=== PATIENT | male | born 1980 | race African-American/Black ===

== ENCOUNTER 2016-09-09 10:38 | Observation (INO) | payer OTHER ==
[2016-09-09] MEDS ORDERED: SODIUM CHLORIDE 0.9% 1,000 ML IV STA (11:04)
[2016-09-09] MEDS ORDERED: HYDROmorphone 1 MG/ML 1 ML SYRINGE IVP STA ×2 (11:04→12:50)
[2016-09-09] MEDS ORDERED: ONDANSETRON 4 MG/2 ML VIAL IVP STA (11:04)
--- NOTE | 2016-09-09 11:15 | ED ---
Abdominal Pain HPI - General Stated Complaint: Rt side pain Time Seen by Provider: 09/09/16 10:59 Source: patient, RN notes reviewed Mode of arrival: ambulatory Limitations: no limitations - History of Present Illness Initial Comments: 35-year-old male presents emergency Department chief complaint of right upper quadrant abdominal pain. Patient states it started a few days ago worse. Patient states never had any like this in the past. Denies any history of abdominal surgeries, kidney stones, pancreatitis. Patient did admit to alcohol use on a regular basis. Patient denies fever, chills, chest pain or shortness of breath. Patient states that nothing makes it feel better. Patient states it is worse with movement. Patient states that he's been trying to drink more water but states are not helping. Patient denies any dysuria hematuria. - Related Data Home Medications Medication Instructions Recorded Confirmed No Known Home Medications [No 09/09/16 09/09/16 Known Home Medications] Allergies Allergy/AdvReac Type Severity Reaction Status Date / Time No Known Allergies Allergy Verified 09/09/16 12:08 Review of Systems ROS Statement: Those systems with pertinent positive or pertinent negative responses have been documented in the HPI. ROS Other: All systems not noted in ROS Statement are negative. Past Medical History Past Medical History: No Reported History History of Any Multi-Drug Resistant Organisms: None Reported Past Surgical History: No Surgical Hx Reported Past Psychological History: No Psychological Hx Reported Smoking Status: Current every day smoker Past Alcohol Use History: Daily, Occasional Past Drug Use History: None Reported General Exam Limitations: no limitations General appearance: alert, in no apparent distress Head exam: Present: atraumatic, normocephalic, normal inspection Neck exam: Present: normal inspection. Absent: tenderness, meningismus, lymphadenopathy Respiratory exam: Present: normal lung sounds bilaterally, chest wall tenderness (Mild right lower rib tenderness). Absent: respiratory distress, wheezes, rales, rhonchi, stridor GI/Abdominal exam: Present: soft, tenderness (Moderate to severe tenderness right upper quadrant, mid abdominal epigastric region), normal bowel sounds. Absent: distended, guarding, rebound, rigid Back exam: Absent: CVA tenderness (R), CVA tenderness (L) Neurological exam: Present: alert, oriented X3, CN II-XII intact Skin exam: Present: warm, dry, intact, normal color. Absent: rash Course Vital Signs 09/09/16 09/09/16 09/09/16 11:01 11:47 12:58 Temperature 98.5 F Pulse Rate 86 80 98 Respiratory 20 18 18 Rate Blood Pressure 210/105 175/97 187/103 O2 Sat by Pulse 100 99 99 Oximetry 09/09/16 14:19 Temperature 98.2 F Pulse Rate 79 Respiratory 18 Rate Blood Pressure 148/109 O2 Sat by Pulse 98 Oximetry Medical Decision Making - Lab Data Result diagrams: 09/09/16 11:25 09/09/16 11:25 Lab Results 09/09/16 09/09/16 09/09/16 Range/Units 11:25 11:25 11:25 WBC 6.3 (3.8-10.6) k/uL RBC 4.99 (4.30-5.90) m/uL Hgb 11.4 L (13.0-17.5) gm/dL Hct 38.0 L (39.0-53.0) % MCV 76.2 L (80.0-100.0) fL MCH 22.8 L (25.0-35.0) pg MCHC 29.9 L (31.0-37.0) g/dL RDW 16.3 H (11.5-15.5) % Plt Count 438 (150-450) k/uL Neutrophils % 69 % Lymphocytes % 23 % Monocytes % 4 % Eosinophils % 1 % Basophils % 0 % Neutrophils # 4.4 (1.3-7.7) k/uL Lymphocytes # 1.4 (1.0-4.8) k/uL Monocytes # 0.3 (0-1.0) k/uL Eosinophils # 0.1 (0-0.7) k/uL Basophils # 0.0 (0-0.2) k/uL Hypochromasia Marked Anisocytosis Slight Microcytosis Slight PT 10.0 (9.0-12.0) sec INR 1.0 (<1.1) APTT 27.2 (22.0-30.0) sec Sodium 136 L (137-145) mmol/L Potassium 4.3 (3.5-5.1) mmol/L Chloride 101 (98-107) mmol/L Carbon Dioxide 22 (22-30) mmol/L Anion Gap 13 mmol/L BUN 3 L (9-20) mg/dL Creatinine 0.69 (0.66-1.25) mg/dL Est GFR (MDRD) Af Amer >60 (>60 ml/min/1.73 sqM) Est GFR (MDRD) Non-Af >60 (>60 ml/min/1.73 sqM) Glucose 207 H (74-99) mg/dL Calcium 9.4 (8.4-10.2) mg/dL Total Bilirubin 0.4 (0.2-1.3) mg/dL AST 30 (17-59) U/L ALT 33 (21-72) U/L Alkaline Phosphatase 107 (38-126) U/L Total Protein 7.4 (6.3-8.2) g/dL Albumin 3.9 (3.5-5.0) g/dL Amylase 144 H (30-110) U/L Lipase 451 H (23-300) U/L Urine Color Urine Appearance (Clear) Urine pH (5.0-8.0) Ur Specific Ada (1.001-1.035) Urine Protein (Negative) Urine Glucose (UA) (Negative) Urine Ketones (Negative) Urine Blood (Negative) Urine Nitrate (Negative) Urine Bilirubin (Negative) Urine Urobilinogen (<2.0) mg/dL Ur Leukocyte Esterase (Negative) Urine RBC (0-5) /hpf Urine WBC (0-5) /hpf Ur Squamous Epith Cells (0-4) /hpf Urine Bacteria (None) /hpf Urine Mucus (None) /hpf Serum Alcohol 10 mg/dL 09/09/16 Range/Units 11:25 WBC (3.8-10.6) k/uL RBC (4.30-5.90) m/uL Hgb (13.0-17.5) gm/dL Hct (39.0-53.0) % MCV (80.0-100.0) fL MCH (25.0-35.0) pg MCHC (31.0-37.0) g/dL RDW (11.5-15.5) % Plt Count (150-450) k/uL Neutrophils % % Lymphocytes % % Monocytes % % Eosinophils % % Basophils % % Neutrophils # (1.3-7.7) k/uL Lymphocytes # (1.0-4.8) k/uL Monocytes # (0-1.0) k/uL Eosinophils # (0-0.7) k/uL Basophils # (0-0.2) k/uL Hypochromasia Anisocytosis Microcytosis PT (9.0-12.0) sec INR (<1.1) APTT (22.0-30.0) sec Sodium (137-145) mmol/L Potassium (3.5-5.1) mmol/L Chloride (98-107) mmol/L Carbon Dioxide (22-30) mmol/L Anion Gap mmol/L BUN (9-20) mg/dL Creatinine (0.66-1.25) mg/dL Est GFR (MDRD) Af Amer (>60 ml/min/1.73 sqM) Est GFR (MDRD) Non-Af (>60 ml/min/1.73 sqM) Glucose (74-99) mg/dL Calcium (8.4-10.2) mg/dL Total Bilirubin (0.2-1.3) mg/dL AST (17-59) U/L ALT (21-72) U/L Alkaline Phosphatase (38-126) U/L Total Protein (6.3-8.2) g/dL Albumin (3.5-5.0) g/dL Amylase (30-110) U/L Lipase (23-300) U/L Urine Color Light Yellow Urine Appearance Clear (Clear) Urine pH 5.0 (5.0-8.0) Ur Specific Ada 1.007 (1.001-1.035) Urine Protein Negative (Negative) Urine Glucose (UA) Negative (Negative) Urine Ketones Negative (Negative) Urine Blood Negative (Negative) Urine Nitrate Negative (Negative) Urine Bilirubin Negative (Negative) Urine Urobilinogen <2.0 (<2.0) mg/dL Ur Leukocyte Esterase Trace H (Negative) Urine RBC <1 (0-5) /hpf Urine WBC 3 (0-5) /hpf Ur Squamous Epith Cells <1 (0-4) /hpf Urine Bacteria Rare H (None) /hpf Urine Mucus Rare H (None) /hpf Serum Alcohol mg/dL Disposition Clinical Impression: Acute pancreatitis, Pancreatic pseudocyst, Intractable abdominal pain, Ileus Disposition: ADMITTED IP TO THIS [facility] Condition: Stable
[2016-09-09 11:47] LABS: Anisocytosis Slight; Basophils % (A) 0 %; CH 22.5; CHCM 29.6; Eosinophils # (A) 0.1 k/uL (0-0.7); Eosinophils % (A) 1 %; HGB 11.4 gm/dL (13.0-17.5); Hypochromasia Marked; Luc # (Auto) 0.16; Luc % (Auto) 2; Lymphocytes # (A) 1.4 k/uL (1.0-4.8); Lymphocytes % (A) 23 %; MCH 22.8 pg (25.0-35.0); MCHC 29.9 g/dL (31.0-37.0); MCV 76.2 fL (80.0-100.0); Mean Platelet Volume 6.6; Microcytosis Slight; Monocytes # (A) 0.3 k/uL (0-1.0); Monocytes % (A) 4 %; Neutrophils # (A) 4.4 k/uL (1.3-7.7); Neutrophils % (A) 69 %; RBC 4.99 m/uL (4.30-5.90); RDW 16.3 % (11.5-15.5); WBC 6.3 k/uL (3.8-10.6); WBC (Perox) 6.72
[2016-09-09 11:52] LABS: ALT 33 U/L (21-72); AST 30 U/L (17-59); Alcohol 10 mg/dL; Alkaline Phosphatase 107 U/L (38-126); Amylase 144 U/L (30-110); Anion Gap 13 mmol/L; Blood Urea Nitrogen 3 mg/dL (9-20); Calcium 9.4 mg/dL (8.4-10.2); Carbon Dioxide 22 mmol/L (22-30); Chloride 101 mmol/L (98-107); Glucose 207 mg/dL (74-99); Non-African American GFR(MDRD) >60 (>60 ml/min/1.73 sqM); Potassium 4.3 mmol/L (3.5-5.1); Sodium 136 mmol/L (137-145); Total Bilirubin 0.4 mg/dL (0.2-1.3); Total Protein 7.4 g/dL (6.3-8.2)
--- NOTE | 2016-09-09 11:57 | XR ---
EXAMINATION TYPE: XR chest 1V DATE OF EXAM: 09/09/2016 11:54 AM COMPARISON: NONE HISTORY: Pain TECHNIQUE: Single frontal view of the chest is obtained. FINDINGS: There is no focal air space opacity, pleural effusion, or pneumothorax seen. The cardiac silhouette size is within normal limits. The osseous structures are intact. IMPRESSION: No acute process.
--- NOTE | 2016-09-09 11:58 | XR ---
EXAMINATION TYPE: XR KUB DATE OF EXAM: 09/09/2016 11:54 AM COMPARISON: NONE HISTORY: Abdominal pain right upper quadrant TECHNIQUE: One view abdominal series FINDINGS: The osseous structures are intact. The bowel gas pattern is nonspecific. There are dilated bowel loo ps with air-fluid levels seen in the right abdomen. Retained fecal debris seen. Arthropathy of the hip joints. FINDINGS: 1. Nonspecific abdomen. Air-fluid levels in dilated bowel loops are seen. Differential includes ileus , enteritis or partial obstruction.
[2016-09-09 11:59] LABS: Partial Thromboplastin Time 27.2 sec (22.0-30.0)
[2016-09-09 12:25] LABS: Appearance,Urine Clear (Clear); Bacteria,Urine Rare /hpf; Bilirubin,Urine Negative (Negative); Glucose,Urine (UA) Negative (Negative); Ketones,Urine Negative (Negative); Leukocyte Esterase,Urine Trace (Negative); Mucus,Urine Rare /hpf; Nitrite,Urine Negative (Negative); Particle Count 728; Protein,Urine Negative (Negative); RBC,Urine <1 /hpf (0-5); Specific Gravity,Urine 1.007 (1.001-1.035); Squamous Epithelial Cell,Urine <1 /hpf (0-4); UA Billing (MACRO vs. MICRO) MICRO; Urobilinogen,Urine <2.0 mg/dL (<2.0); WBC,Urine 3 /hpf (0-5)
[2016-09-09] MEDS ORDERED: KETOROLAC 30 MG/ML 1 ML VIAL IVP STA (12:50)
[2016-09-09] MEDS ORDERED: RX INFO: IV CONTRAST WAS GIVEN 1 EACH MISC MISCELLANE PRN (12:50)
--- NOTE | 2016-09-09 13:13 | US ---
EXAMINATION TYPE: US abdomen limited DATE OF EXAM: 09/09/2016 12:23 PM COMPARISON: NONE CLINICAL HISTORY: Pain. EXAM MEASUREMENTS: Liver Length: 13.7 cm Gallbladder Wall: 0.3 cm CBD: 0.4 cm Right Kidney: 9.6 x 5.4 x 5.5 cm TECHNOLOGIST IMPRESSION: Pancreas: Obscured by bowel gas Liver: no gross abnormality seen, slightly mottled echotexture Gallbladder: No stones seen Evidence for sonographic Gilliam's sign: yes CBD: wnl Right Kidney: No hydronephrosis or masses seen IMPRESSION: THE GALLBLADDER WALL IS UPPER LIMITS OF NORMAL IN THICKNESS AND THERE IS A POSITIVE SONOGRAPHIC ALIE Y'S SIGN. I COULD NOT EXCLUDE ACALCULOUS CHOLECYSTITIS.
--- NOTE | 2016-09-09 13:51 | CT ---
EXAMINATION TYPE: CT abdomen pelvis w con DATE OF EXAM: 09/09/2016 1:34 PM COMPARISON: Limited abdomen ultrasound same date, plain film abdomen same date HISTORY: Right side pain for [address] DLP: 735 mGycm Automated exposure control for dose reduction was used. TECHNIQUE: Helical acquisition of images was performed from the lung bases through the pelvis. CONTRAST: Performed without Oral Contrast and with IV Contrast, patient injected with 100 ml mL of Omnipaque 30 0. FINDINGS: LUNG BASES: Minimal dependent atelectatic changes are present. LIVER/GB: No significant abnormality is appreciated. PANCREAS: There is a cystic focus which may arise from the medial aspect of the uncinate process analy uring approximately 2.3 x 2.7 x 2 cm. Some suggestion of local inflammatory change, fluid attenuation is noted just anterior to the abdominal aorta, posterior to the superior mesenteric artery. SPLEEN: No significant abnormality is seen. ADRENALS: No significant abnormality is seen. KIDNEYS: No significant abnormality is seen. RETROPERITONEAL ADENOPATHY: None visualized REPRODUCTIVE ORGANS: No significant abnormality is seen URINARY BLADDER: Urinary bladder shows a somewhat thickened wall, correlate for possible cystitis. PELVIC ADENOPATHY: None visualized. OSSEOUS STRUCTURES: No significant abnormality is seen. BOWEL: There are fluid-filled and distended loops of small bowel. Appendix is not seen well with cer tainty. OTHER: No evidence of ascites. IMPRESSION: FINDINGS COULD POSSIBLY REPRESENT A PANCREATIC PSEUDOCYST, CORRELATE FOR HISTORY OF PANCREATITIS, THE RE MAY BE AN UNDERLYING ILEUS, ENTERITIS, FOLLOW-UP IS SUGGESTED.
[2016-09-09] MEDS ORDERED: NALOXONE 0.4 MG/ML 1 ML VIAL IV PRN (14:39)
[2016-09-09] MEDS ORDERED: ONDANSETRON 4 MG/2 ML VIAL IVP PRN (14:39)
[2016-09-09] MEDS ORDERED: LORazepam 2 MG/ML SYRINGE IV PRN ×3 (14:40)
[2016-09-09] MEDS: SODIUM CHLORIDE 0.9% 1,000 ML IV SCH ×2 (15:33→22:00)
[2016-09-09] MEDS: THIAMINE 100 MG TAB PO SCH (17:28)
[2016-09-09] MEDS: HYDROmorphone 1 MG/ML 1 ML SYRINGE IV PRN (19:57)
[2016-09-09] MEDS: KETOROLAC 30 MG/ML 1 ML VIAL IVP PRN (22:45)
[2016-09-10] MEDS: HYDROmorphone 1 MG/ML 1 ML SYRINGE IV PRN ×5 (01:57→20:56)
[2016-09-10] MEDS: SODIUM CHLORIDE 0.9% 1,000 ML IV SCH ×4 (04:05→20:45)
[2016-09-10 10:24] LABS: Amylase 91 U/L (30-110)
[2016-09-10] MEDS: PANTOPRAZOLE 40 MG/10 ML VIAL IVP SCH (11:04)
[2016-09-10] MEDS: THIAMINE 100 MG TAB PO SCH ×2 (11:08→17:19)
--- NOTE | 2016-09-10 12:17 | HP ---
DATE OF ADMISSION: The patient is a 35-year-old who came in with right upper quadrant abdominal pain, has been going on for 3 days, sharp in nature. Patient has mildly elevated lipase and amylase because of which patient is admitted for pancreatitis, although patient does not have any symptoms consistent with pancreatitis. My suspicion is low for pancreatitis considering that amylase and lipase not high enough to say it is pancreatitis. Although patient does have significant Gilliam's sign is positive and does have lower rib cage pain. His pain was sharp in nature, nonradiating, in the right upper quadrant, worsens with deep breathing. It can be cholecystitis. CT of the abdomen was reviewed and ultrasound of the abdomen was reviewed. Ultrasound showed mild thickening of the gallbladder. Acalculous cholecystitis is consideration considering Gilliam sign positive. Patient does have a small pseudocyst in the ( ) pancreas. Patient never had any history of pancreatitis in the past. He is an alcoholic, does drink alcohol every day, 6 cans of beer a day. Patient denied any fever, chills. Patient denied any dysuria. Patient denied any nausea, vomiting. Denied any cough. ROS: All other systems were reviewed and were negative. HOME MEDICATIONS: None. ALLERGIES: No known drug allergies. PAST MEDICAL HISTORY: None. SOCIAL HISTORY: The patient does smoke a pack per day. Alcohol history as mentioned above. Occasionally uses marijuana. PHYSICAL EXAMINATION: Temperature 98.4, pulse of 87, respiratory rate of 12, blood pressure is 146/96, saturating at 99% on room air. PHYSICAL EXAMINATION: GENERAL: The patient is alert and oriented x3, not in any acute distress. Well developed, well nourished. HEENT: Pupils are round and equally reacting to light. EOMI. No scleral icterus. No conjunctival pallor. Normocephalic, atraumatic. No pharyngeal erythema. No thyromegaly. CARDIOVASCULAR: S1 and S2 present. No murmurs, rubs, or gallops. PULMONARY: Chest is clear to auscultation, no wheezing or crackles. ABDOMEN: Patient has right upper quadrant abdominal tenderness. Gilliam's sign positive. No rebound or rigidity. MUSCULOSKELETAL: No joint swelling or deformity. EXTREMITIES: No cyanosis, clubbing, or pedal edema. NEUROLOGICAL: Gross neurological examination did not reveal any focal deficits. SKIN: No rashes. LABORATORY DATA: CBC and CMP are abnormal for elevated glucose of 207. Will obtain hemoglobin A1c. Amylase and lipase elevation as mentioned above, they are normalized now. ASSESSMENT AND PLAN: 1. Right upper quadrant abdominal pain. Patient will be started on Protonix. My suspicion is significantly low for pancreatitis. Patient will be evaluated for any gallbladder disease. I will obtain a consultation from Surgery. 2. Pseudocyst. I did not believe it is contributing to any of his symptoms at this point of time, which is a small pancreatic pseudocyst in the ( ) pancreas. 3. Alcohol abuse history. Counseling was provided. 4. Alcohol withdrawal. Will watch for any alcohol withdrawal. Patient will be on Ativan, CIWA protocol and thiamine supplementation. Patient will use ketorolac for pain, because my suspicion is significantly that gastritis is causing his. pain and we will try and avoid hydromorphone as much as possible. Elevated blood sugars. Will obtain hemoglobin A1c. Patient's primary care physician none. RIAN
[2016-09-10 13:00] LABS: Hemoglobin A1C 5.3 % (4.2-6.1)
--- NOTE | 2016-09-10 14:01 | P.GSCN ---
History of Present Illness Consult date: 09/10/16 Reason for Consult: Abdominal pain History of present illness: The patient is a 35-year-old black male who presented to the emergency department with a complaint of right upper quadrant abdominal pain. The patient has a history of heavy alcohol use. He denies pancreatitis in the past. She has not been eating recently. He denies fever or chills chest pain or shortness of breath. The patient states that any pressure on this area seems to make it worse. The patient had a CAT scan performed which revealed the cystic focus in the medial aspect of the uncinate process of the pancreas. This measured 2.3 x 2.7 x 2 cm. Some suggestion of local inflammatory change was noted. Patient's amylase was noted to be 144 and lipase 451 on admission. These have since normalized. Bilirubin and a LT and AST are all within normal limits as is alkaline phosphatase. Review of Systems - Constitutional Constitutional Comment(s): Drinks alcohol regularly, positive smoking Reports as per HPI - Cardiovascular Reports as per HPI - Respiratory Reports as per HPI - Gastrointestinal Gastrointestinal Comment(s): Probable pancreatitis - Genitourinary Reports as per HPI - Integumentary Reports as per HPI Past Medical History Past Medical History: No Reported History History of Any Multi-Drug Resistant Organisms: None Reported Past Surgical History: Orthopedic Surgery Additional Past Surgical History / Comment(s): RIGHT HAND AND LEFT ARM SURGERY Past Anesthesia/Blood Transfusion Reactions: No Reported Reaction Past Psychological History: No Psychological Hx Reported Smoking Status: Current every day smoker Past Alcohol Use History: Daily Additional Past Alcohol Use History / Comment(s): 6 CANS OF BEER/DAY Past Drug Use History: Marijuana - Past Family History Father History Unknown: Yes Mother History Unknown: Yes Medications and Allergies Home Medications Medication Instructions Recorded Confirmed Type No Known Home Medications [No 09/09/16 09/09/16 History Known Home Medications] Allergies Allergy/AdvReac Type Severity Reaction Status Date / Time No Known Allergies Allergy Verified 09/09/16 12:08 Surgical - Exam Vital Signs Temp Pulse Resp BP Pulse Ox 98.5 F 86 20 210/105 100 09/09/16 11:01 09/09/16 11:01 09/09/16 11:01 09/09/16 11:01 09/09/16 11:01 - General cachectic - Eyes normal ocular movement - ENT normal pinna, normal nares, no hearing loss, no congestion - Neck no masses, trachea midline, no lymphadectomy, no venous distension - Respiratory normal expansion, normal respiratory effort, clear to auscultation - Cardiovascular Rhythm: regular - Abdomen Tender to palpation mid epigastrium and right upper quadrant Positive bowel sounds Abdomen: tender - Rectum Rectum: normal sphincter tone, no hemorrhoids, no tenderness, no masses, no bleeding - Psychiatric oriented to time, oriented to person, oriented to place, speech is normal Results - Labs 09/09/16 11:25 09/09/16 11:25 Abnormal Lab Results - Last 24 Hours (Table) 09/10/16 Range/Units 11:27 D-Dimer 0.77 H (<0.60) mg/L FEU Diabetes panel 09/10/16 Range/Units 11:27 Hemoglobin A1c 5.3 (4.2-6.1) % - Imaging CT scan - abdomen: report reviewed, image reviewed CT scan - pelvis: report reviewed, image reviewed Assessment and Plan Plan: Impression/plan: 1. Acute alcoholic pancreatitis with possible pseudocyst 2. Abdominal pain 3. At this time patient does not have an acute surgical abdomen will follow clinically with you
[2016-09-11] MEDS: HYDROmorphone 1 MG/ML 1 ML SYRINGE IV PRN ×5 (00:16→20:49)
[2016-09-11] MEDS: SODIUM CHLORIDE 0.9% 1,000 ML IV SCH ×3 (07:33→20:52)
[2016-09-11] MEDS: PANTOPRAZOLE 40 MG/10 ML VIAL IVP SCH (07:44)
[2016-09-11 08:20] LABS: Anisocytosis Slight; CH 22.8; CHCM 29.7; HCT 36.1 % (39.0-53.0); HDW 2.75; HGB 10.4 gm/dL (13.0-17.5); Hypochromasia Marked; MCH 22.3 pg (25.0-35.0); MCV 76.8 fL (80.0-100.0); Mean Platelet Volume 7.5; Microcytosis Slight; RBC 4.69 m/uL (4.30-5.90); RDW 16.4 % (11.5-15.5); WBC 4.8 k/uL (3.8-10.6)
[2016-09-11 08:36] LABS: ALT 28 U/L (21-72); AST 25 U/L (17-59); Alkaline Phosphatase 88 U/L (38-126); Anion Gap 9 mmol/L; Blood Urea Nitrogen 3 mg/dL (9-20); Carbon Dioxide 22 mmol/L (22-30); Chloride 103 mmol/L (98-107); Glucose 87 mg/dL (74-99); Non-African American GFR(MDRD) >60 (>60 ml/min/1.73 sqM); Potassium 4.4 mmol/L (3.5-5.1); Sodium 134 mmol/L (137-145); Total Bilirubin 0.6 mg/dL (0.2-1.3); Total Protein 6.2 g/dL (6.3-8.2)
--- NOTE | 2016-09-11 09:40 | P.CONS ---
History of Present Illness - Reason for Consult Consult date: 09/11/16 pancreatic pseudocyst Requesting physician: Minal Peraza - History of Present Illness 35-year-old gentleman no PCP with a past history of nicotine cigarette dependency and alcohol abuse for more than 16 years; drinks beer on a daily basis presents with acute abdominal pain 3 days without fever. Admission hemoglobin 11.4. White count 6.3. Lipase 451. Amylase 144. Total bilirubin 0.4. AST 30. ALT 33. Alkaline phosphates 107. Serum alcohol 10. Consultation requested for pancreatic pseudocyst. No history of pancreatitis. Asacol drink was Friday. Ultrasound abdomen reported no gallstones. CBD 0.4 cm. Gallbladder wall 0.[address] abdomen and pelvis reported a cystic focus from the medial aspect of the uncinate process measuring 2.32.72 cm possible pancreatic pseudocyst. Review of Systems Constitutional: Denies fever, chills, sweats, weight gain, or loss. HEENT: Negative for migraines, blurred vision or loss, earaches, drainage, tinnitus, oral mucosal lesions, dysphagia, or odynophagia. Cardiac: Negative for chest pain, arrhythmias, or palpitation. Respiratory: Nicotine cigarette dependency. Negative for shortness of breath, hemoptysis, cough, or sputum production. Gastrointestinal: See HPI for pertinent findings. Genitourinary: Negative for hematuria, urgency, frequency, polyuria, dysuria, or penile discharge. Musculoskeletal: Negative for muscle aches, swelling, arthritis, and arthralgias. Neurologic: Negative for stroke or TIA. Endocrine: Negative for thyroid problems. Skin: Negative for rash or itching. Psychiatric: Negative history for depression and anxiety All systems: negative (See HPI) Past Medical History Past Medical History: No Reported History History of Any Multi-Drug Resistant Organisms: None Reported Past Surgical History: Orthopedic Surgery Additional Past Surgical History / Comment(s): RIGHT HAND AND LEFT ARM SURGERY Past Anesthesia/Blood Transfusion Reactions: No Reported Reaction Past Psychological History: No Psychological Hx Reported Smoking Status: Current every day smoker Past Alcohol Use History: Daily Additional Past Alcohol Use History / Comment(s): 6 CANS OF BEER/DAY Past Drug Use History: Marijuana - Past Family History Father History Unknown: Yes Mother History Unknown: Yes Medications and Allergies Home Medications Medication Instructions Recorded Confirmed Type No Known Home Medications [No 09/09/16 09/09/16 History Known Home Medications] Allergies Allergy/AdvReac Type Severity Reaction Status Date / Time No Known Allergies Allergy Verified 09/09/16 12:08 Physical Exam Vitals: Vital Signs Temp Pulse Resp BP BP Pulse Ox 09/11/16 07:00 98.2 F 87 16 153/102 100 09/10/16 23:00 97.3 F L 72 18 158/95 100 09/10/16 16:41 145/97 09/10/16 16:15 74 16 09/10/16 15:00 96.4 F L 74 16 166/103 99 Intake and Output 09/10/16 09/11/16 09/11/16 22:59 06:59 14:59 Intake Total 1100 Balance 1100 Intake: Intake, IV Titration 1100 Amount Sodium Chloride 0.9% 1, 1100 000 ml @ 100 mls/hr IV . Q10H [facility] Rx#:[id number] Other: Voiding Method Toilet Toilet # Voids 1 1 # Bowel Movements 0 General appearance: The patient is alert, oriented, in no acute distress. HET: Head is normocephalic and atraumatic. Pupils are equal and reactive. Oropharynx is clear without lesions. Neck: Supple without lymphadenopathy. Trachea midline. Heart: S1 S2. Regular rate and rhythm. Lungs: No crackles or wheezes are heard. Abdomen: Soft, tenderness midepigastrium left upper quadrant mildly bloated with bowel sounds. No peritoneal signs. No palpable organomegaly or masses. Extremities: Normal skin color and turgor. No cyanosis, rash, ulceration, clubbing, or edema. Radial and pedal pulses are 2/4 bilaterally. Neurological: No focal deficits. Strength and sensation are grossly intact. Results CBC & Chem 7: 09/11/16 07:59 09/11/16 07:59 Labs: Abnormal Lab Results - Last 24 Hours (Table) 09/10/16 09/11/16 09/11/16 Range/Units 11:27 07:59 07:59 Hgb 10.4 L (13.0-17.5) gm/dL Hct 36.1 L (39.0-53.0) % MCV 76.8 L (80.0-100.0) fL MCH 22.3 L (25.0-35.0) pg MCHC 29.0 L (31.0-37.0) g/dL RDW 16.4 H (11.5-15.5) % D-Dimer 0.77 H (<0.60) mg/L FEU Sodium 134 L (137-145) mmol/L BUN 3 L (9-20) mg/dL Total Protein 6.2 L (6.3-8.2) g/dL Albumin 3.1 L (3.5-5.0) g/dL CT scan - abdomen: report reviewed (reviewed by Dr. Sena) US - abdomen: report reviewed (reviewed by ) Assessment and Plan (1) Acute pancreatitis Narrative/Plan: 35-year-old male with a history of EtOH abuse 16 years duration presents with acute alcohol pancreatitis with suspected pseudocyst on CT imaging. Status: Acute (2) ETOH abuse Status: Chronic (3) Pseudocyst of pancreas Status: Acute Plan: 1. Alcohol abstinence strongly advised. 2. IV hydration. 3. GI prophylaxis. 4. Clear liquid diet as tolerated. Supportive measures. We'll follow with you. Thank you for this kind referral and the opportunity to participate in the care of your patient. This consultation was discussed with Dr. Sena. The impression and plan of care have been directed as dictated.
[2016-09-11] MEDS ORDERED: SODIUM CHLORIDE 0.9% 1,000 ML IV SCH (09:45)
[2016-09-11] MEDS: THIAMINE 100 MG TAB PO SCH ×2 (11:43→17:40)
--- NOTE | 2016-09-11 13:08 | P.PN ---
Subjective 35-year-old Afro-Tajik presented on the day of admission to the emergency room with a chief complaint of developing right upper quadrant abdominal pain. Patient has a history of chronic alcoholism. Patient states that he has been drinking alcohol for greater than 16 years. Drinks beer on a daily basis. Patient stated that he did develop the abdominal pain 3-4 days ago. Did not feel feverish or chilled. Patient presented to the emergency room to be evaluated for the above-mentioned symptoms. A surgical consultation was requested by the attending. Patient ultrasound the abdomen obtained showed no gallstones. The common bile duct 0.4. CAT scan of the abdomen pelvis did show possible pancreatic pseudocyst noted. On admission the lipase was 451. Amylase 144. Patient gives no prior history of pancreatitis Patient does report that the abdominal pain in the right upper quadrant has improved has not completely resolved there is been no fever or chills no nausea vomiting Objective - Vital Signs Vital signs: Vital Signs Temp 98.2 F 09/11/16 07:00 Pulse 87 09/11/16 08:00 Resp 16 09/11/16 08:00 BP 153/102 09/11/16 07:00 Pulse Ox 100 09/11/16 07:00 Intake & Output 09/10/16 09/11/16 09/11/16 18:59 06:59 18:59 Intake Total 1100 Balance 1100 Intake: Intake, IV Titration 1100 Amount Sodium Chloride 0.9% 1, 1100 000 ml @ 100 mls/hr IV . Q10H [facility] Rx#:[id number] Other: Voiding Method Toilet Toilet Toilet # Voids 1 1 1 # Bowel Movements 0 - Exam Physical exam 35-year-old Salome male resting in bed does not appear in any acute distress oriented 3 Lungs essentially clear adequate air movement Heart S1-S2 audible regular Abdomen soft slight tenderness to the mid epigastric area and the left upper quadrant patient states he feels bloated. Positive bowel tones noted no palpable organomegaly or mass Extremities no evidence of edema Skin warm and dry - Labs CBC & Chem 7: 09/11/16 07:59 09/11/16 07:59 Labs: Abnormal Lab Results - Last 24 Hours (Table) 09/11/16 09/11/16 Range/Units 07:59 07:59 Hgb 10.4 L (13.0-17.5) gm/dL Hct 36.1 L (39.0-53.0) % MCV 76.8 L (80.0-100.0) fL MCH 22.3 L (25.0-35.0) pg MCHC 29.0 L (31.0-37.0) g/dL RDW 16.4 H (11.5-15.5) % Sodium 134 L (137-145) mmol/L BUN 3 L (9-20) mg/dL Total Protein 6.2 L (6.3-8.2) g/dL Albumin 3.1 L (3.5-5.0) g/dL Assessment and Plan Plan: Impression Present on admission acute right upper quadrant abdominal pain likely due to acute alcohol pancreatitis with a CAT scan of the abdomen pelvis suspected pseudocyst on imaging History of chronic alcohol abuse 16 year duration Current every day smoker greater than a 20 year history Plan At this time patient continues to not have an acute surgical abdomen we'll continue to follow with you Continue the workup for the abdominal pain defer to The above dictated assessment and findings were discussed with Dr. Gauri Colin Impression and the plan of care have been dictated as directed. Margret Penn nurse practitioner acting as a scribe for Dr. Kirby.
[2016-09-11] MEDS: cloNIDine HCL 0.1 MG TAB PO SCH ×2 (13:18→20:59)
[2016-09-11] MEDS: KETOROLAC 30 MG/ML 1 ML VIAL IVP PRN (13:21)
--- NOTE | 2016-09-11 15:36 | XR ---
EXAMINATION TYPE: XR chest 2V DATE OF EXAM: 09/11/2016 3:23 PM COMPARISON: Prior chest x-ray from 2 days ago. HISTORY: Upper abdominal pain. TECHNIQUE: Frontal and lateral views of the chest are obtained. FINDINGS: There is no focal air space opacity, pleural effusion, or pneumothorax seen. The cardiac silhouette size is within normal limits. The osseous structures are intact. IMPRESSION: No acute cardiopulmonary process. No significant change from prior.
[2016-09-11] MEDS ORDERED: cloNIDine HCL 0.1 MG TAB PO PRN (15:38)
[2016-09-11] MEDS ORDERED: LEVOFLOXACIN 500MG-D5W PMX 500 MG in DEXTROSE/WATER 1 100ML.BAG IVPB SCH (16:00)
--- NOTE | 2016-09-11 18:04 | PN ---
DATE OF SERVICE: 09/11/2016 This 35-year-old gentleman who was admitted with abdominal pain as well as possible acute on chronic pancreatitis also had a possible pancreatic pseudocyst. The patient has a history of ETOH abuse also. He is complaining of abdominal pain which is in the right upper quadrant and right lower chest, also. A repeat chest x-ray was ordered by me; official report is pending at this time. X-ray is showing appearance. Past medical history reviewed. REVIEW OF SYSTEMS: CARDIOVASCULAR SYSTEM: No angina, palpitations. RESPIRATORY SYSTEM: As mentioned earlier. GI: No nausea. : No dysuria. NERVOUS SYSTEM: No numbness or weakness. Current medications are: 1. Catapres 0.1 t.i.d. 2. Dilaudid 1 mg q.3 p.r.n. 3. Toradol 30 mg 4. Levaquin 500 mg daily. 5. Ativan 1 mg p.r.n. 6. Narcan 0.2 q.2 p.r.n. 7. Zofran 4 mg q.8 p.r.n. 8. Protonix 40 mg daily. 9. Thiamine 100 mg p.o. daily. PHYSICAL EXAMINATION: Patient is alert and oriented x3. Pulse is 87, blood pressure 153/102, respiration 16, temperature 98.2, pulse ox 100% on room air. HEENT: Conjunctivae normal. NECK: No jugular venous distention. CARDIOVASCULAR: S1, S2 muffled. RESPIRATORY SYSTEM: Breath sounds diminished at the bases. Scattered rhonchi and crackles. ABDOMEN: Soft, non-tender. No mass palpable. LEGS: No edema. No swelling. NERVOUS SYSTEM: Higher functions as mentioned earlier. Moves all 4 limbs. No focal motor or sensory deficit. LYMPHATICS: No lymph node palpable in neck, axillae or groin. SKIN: No ulcer, rash, bleeding. LABS AT THIS TIME: WBC 4.8, hemoglobin 10.4. Sodium is 134. Albumin is 3.1. Amylase and lipase noted. ASSESSMENT: 1. Abdominal pain with acute on chronic pancreatitis. 2. Possible pancreatic pseudocyst. 3. History of ethanol and possible withdrawal. 4. Hypertension. 5. Hyponatremia, possibly hypovolemic. 6. Increased random blood sugar. 7. Anemia, microcytic. 8. History of degenerative joint disease. 9. History of nicotine dependence. 10. History of tetrahydrocannabinol. 11. Alcohol withdrawal, acute. 12. FULL CODE. RECOMMENDATIONS AND DISCUSSION: In this 35-year-old gentleman who presented with multiple complex medical issues, we will continue the current medications, continue with symptomatic treatment. Will initiate clonidine and cut down on the IV fluids. Otherwise use p.r.n. clonidine. CIWA protocol. Supplement vitamins. Empiric antibiotics will be utilized. Guarded prognosis because of multiple complex medical issues. Further recommendations to follow. Alcohol level on presentation was 10. See orders for further details. MTDD
[2016-09-11] MEDS: HYDROcodone/APAP 5-325MG 1 EACH TAB PO PRN (18:08)
[2016-09-11] MEDS: HEPARIN SODIUM,PORCINE 5,000 UNIT/ML 1 ML VIAL SQ SCH (20:49)
[2016-09-11] MEDS ORDERED: TEMAZEPAM 15 MG CAP PO PRN (21:00)
[2016-09-12] MEDS: HYDROmorphone 1 MG/ML 1 ML SYRINGE IV PRN ×4 (00:11→09:25)
[2016-09-12] MEDS: HYDROcodone/APAP 5-325MG 1 EACH TAB PO PRN ×2 (04:56→11:56)
[2016-09-12 07:33] VITALS: BP 146/90; PULSE 67; RESP 18; TEMP 97.4
[2016-09-12] MEDS: PANTOPRAZOLE 40 MG/10 ML VIAL IVP SCH (08:28)
[2016-09-12] MEDS: HEPARIN SODIUM,PORCINE 5,000 UNIT/ML 1 ML VIAL SQ SCH (08:29)
[2016-09-12] MEDS: cloNIDine HCL 0.1 MG TAB PO SCH (08:29)
[2016-09-12] MEDS: KETOROLAC 30 MG/ML 1 ML VIAL IVP PRN (08:42)
[2016-09-12] MEDS ORDERED: NICOTINE 14MG/24HR PATCH TRANSDERM SCH (09:00)
--- NOTE | 2016-09-12 10:52 | P.PN ---
Subjective Principal diagnosis: Alcohol pancreatitis 35-year-old male with a history of alcohol abuse admitted with alcohol pancreatitis and pseudocyst. Feels better this morning. Tolerating full liquids. Afebrile. Objective - Vital Signs Vital signs: Vital Signs Temp 97.4 F L 09/12/16 07:00 Pulse 67 09/12/16 07:00 Resp 18 09/12/16 07:00 BP 146/90 09/12/16 07:00 Pulse Ox 99 09/12/16 07:00 Intake & Output 09/11/16 09/12/16 09/12/16 18:59 06:59 18:59 Intake Total 650 Balance 650 Intake: Oral 650 Other: Voiding Method Toilet Toilet Toilet # Voids 2 - Exam General appearance: The patient is alert, oriented, in no acute distress. HET: Head is normocephalic and atraumatic. Pupils are equal and reactive. Oropharynx is clear without lesions. Neck: Supple without lymphadenopathy. Trachea midline. Heart: S1 S2. Regular rate and rhythm. Lungs: No crackles or wheezes are heard. Abdomen: Soft, tenderness midepigastrium left upper quadrant mildly bloated with bowel sounds. No peritoneal signs. No palpable organomegaly or masses. Extremities: Normal skin color and turgor. No cyanosis, rash, ulceration, clubbing, or edema. Radial and pedal pulses are 2/4 bilaterally. Neurological: No focal deficits. Strength and sensation are grossly intact. - Labs CBC & Chem 7: 09/11/16 07:59 09/11/16 07:59 Assessment and Plan (1) Acute pancreatitis Narrative/Plan: 35-year-old male with a history of EtOH abuse 16 years duration presents with acute alcohol pancreatitis with suspected pseudocyst on CT imaging. Status: Acute (2) ETOH abuse Status: Chronic (3) Pseudocyst of pancreas Status: Acute Plan: 1. Alcohol abstinence strongly advised. 2. Discharge per medicine. 3. GI prophylaxis. Assessment and plan a care discussed with Dr. Sena.
[2016-09-12] MEDS: THIAMINE 100 MG TAB PO SCH (11:56)
--- NOTE | 2016-09-13 09:09 | DS ---
DATE OF ADMISSION: 09/09/2016 DATE OF DISCHARGE: 09/12/2016 FINAL DIAGNOSES: 1. Abdominal pain with acute on chronic pancreatitis. 2. Possible pancreatic pseudocyst. 3. History of EtOH and possible withdrawal. 4. Hypertension. 5. Hyponatremia, possibly hypovolemic. 6. Rule out cholecystitis. 7. Increased random blood sugar. 8. Anemia, microcytic. 9. History of degenerative joint disease. 10. History of nicotine dependence. 11. History of THC. 12. Alcohol withdrawal, acute. 13. FULL CODE. DISCHARGE DISPOSITION: The patient will be discharged in a stable condition with guarded prognosis. HISTORY OF PRESENT ILLNESS: This 35-year-old gentleman with a past medical history of multiple medical problems admitted with abdominal pain as well as features of possible pancreatitis and pancreatic pseudocyst. The patient also complaining of abdominal pain. The possibility of cholecystitis was suspected, but Surgery saw the patient and recommended outpatient followup. Otherwise, chest x-ray was noted. On exam, vitals are stable. CARDIOVASCULAR: S1 and S2 muffled. ABDOMEN: Soft, nontender. NERVOUS SYSTEM: No focal deficits. Hemoglobin is 10.4. Sodium is 134. Amylase and lipase 144 and 451 improved to 91 and 131. The patient will be discharged in a stable condition with guarded prognosis with the following advice and medications: 1. Diet is cardiac, soft. 2. Activity limited until followup. 3. Follow up with Dr. Barrera 2 to 3 days. 4. Follow up with Dr. Sena as advised. 5. No EtOH. The patient is planning [facility]. 6. Folic acid 1 mg p.o. daily. 7. [place] 5 mg q.6 p.r.n. 8. Ativan 0.5 mg t.i.d. p.r.n. 9. Multivitamins 1 p.o. daily. 10. Habitrol 14 daily. 11. Protonix 40 mg p.o. daily. 12. Thiamine 100 mg p.o. daily. 13. Catapres 0.1 p.o. t.i.d. Once again, the patient will be discharged in a stable condition with guarded prognosis.
== END 2016-09-12 12:20 | disposition home or self-care (01) ==
LOC: EC 10:38 → 4MS4W 14:56 → INTOOBSV 14:56
PROVIDERS: ADMIT Internal Medicine; ATTEND Internal Medicine
DX: K85.20 Alcohol induced acute pancreatitis without necrosis or infection (principal); K86.1 Other chronic pancreatitis; E87.1 Hypo-osmolality and hyponatremia; I10 Essential (primary) hypertension; D50.9 Iron deficiency anemia, unspecified; M19.90 Unspecified osteoarthritis, unspecified site; F10.239 Alcohol dependence with withdrawal, unspecified; F12.90 Cannabis use, unspecified, uncomplicated; F17.200 Nicotine dependence, unspecified, uncomplicated; K86.3 Pseudocyst of pancreas; R73.9 Hyperglycemia, unspecified; K86.81 Exocrine pancreatic insufficiency
CPT/HCPCS: 99285 ×2; 96375 ×2; 96376 ×2; 96361 ×3; 36415; 85379; 80053 ×2; 82150 ×2; 83036; 83690 ×2; 85025; 85027; 85610; 85730; 81001; 80320; 71010; 71020; 74000; 76705; 74177; G0378 ×4; J1644 ×2; J2405; J1956; J1885 ×3; J1170 ×4; Q9967; C9113 ×3; 96372; 96374

== ENCOUNTER 2016-10-17 16:24 | Emergency (ER) | payer OTHER ==
[2016-10-17 16:42] VITALS: BP 173/98; PULSE 86; RESP 16; TEMP 98.5
--- NOTE | 2016-10-17 16:53 | ED ---
General Adult HPI - General Chief complaint: Skin/Abscess/Foreign Body Stated complaint: Boil on face Time Seen by Provider: 10/17/16 16:44 Source: patient, RN notes reviewed Mode of arrival: ambulatory Limitations: no limitations - History of Present Illness Initial comments: This is a 36-year-old male who presents with left eyebrow pain and swelling. Patient states he's had swelling to the left eyebrow for 2 months, but it has gotten worse over the last 2-3 days. Patient reports that this is very painful. Patient denies any fever/chills. Patient denies any headache, neck pain or recent dental pain or recent dental infection. Patient denies any history of MRSA. Patient has not been evaluated for this pain or swelling. Patient denies any recent shortness breath, chest pain, abdominal pain, nausea/ vomiting/diarrhea, back pain, numbness, tingling, hematuria, or visual changes , or any other complaints. - Related Data Previous Rx's Medication Instructions Recorded Folic Acid 1 mg PO DAILY #30 tablet 09/12/16 HYDROcodone/APAP 5-325MG [[place] 1 each PO Q6HR PRN #20 tab 09/12/16 5-325] LORazepam [Ativan] 0.5 mg PO TID PRN #20 tab 09/12/16 Multivitamins, Thera [Multivitamin 1 tab PO DAILY #30 tablet 09/12/16 (formulary)] Nicotine 14Mg/24Hr Patch [Habitrol] 1 patch TRANSDERM DAILY #30 patch 09/12/16 Pantoprazole Sodium [Protonix] 40 mg PO DAILY #30 tablet. 09/12/16 Thiamine [Vitamin B-1] 100 mg PO DAILY #30 tab 09/12/16 cloNIDine HCL [Catapres] 0.1 mg PO TID #90 tab 09/12/16 Sulfamethox-Tmp 800-160Mg [Bactrim 1 tab PO Q12HR #28 tab 10/17/16 DS 800-160 mg] traMADol HCL [Ultram] 50 mg PO Q6HR #12 tab 10/17/16 Allergies Allergy/AdvReac Type Severity Reaction Status Date / Time No Known Allergies Allergy Verified 10/17/16 16:42 Review of Systems ROS Statement: Those systems with pertinent positive or pertinent negative responses have been documented in the HPI. ROS Other: All systems not noted in ROS Statement are negative. Past Medical History Past Medical History: No Reported History Additional Past Medical History / Comment(s): pancreatitis History of Any Multi-Drug Resistant Organisms: None Reported Past Surgical History: Orthopedic Surgery Additional Past Surgical History / Comment(s): RIGHT HAND AND LEFT ARM SURGERY Past Anesthesia/Blood Transfusion Reactions: No Reported Reaction Past Psychological History: No Psychological Hx Reported Smoking Status: Current every day smoker Past Alcohol Use History: None Reported Additional Past Alcohol Use History / Comment(s): 6 CANS OF BEER/DAY Past Drug Use History: Marijuana - Past Family History Father History Unknown: Yes Mother History Unknown: Yes General Exam - General Exam Comments Initial Comments: General: The patient is awake and alert, in no distress, and does not appear acutely ill. Eye: There is a warm fluctuant mass with swelling, tenderness and erythema to the lateral aspect of the left eyebrow consistent with abscess. Pupils are equal , round and reactive to light, extra-ocular movements are intact. No pain with extraocular movements. No nystagmus. There is normal conjunctiva bilaterally. No signs of icterus. Ears: TMs pink and pearly with intact cone of light bilaterally. Normal external ear canals Nose: Nasal turbinates pink and moist Mouth and throat: There are moist mucous membranes and no oral lesions. Neck: The neck is supple, there is no tenderness or JVD. Cardiovascular: There is a regular rate and rhythm. No murmur, rub or gallop is appreciated. Respiratory: Lungs are clear to auscultation, respirations are non-labored, breath sounds are equal. No wheezes, stridor, rales, or rhonchi. Musculoskeletal: Normal ROM, no tenderness. Strength 5/5. Sensation intact. Radial pulses equal bilaterally 2+. Neurological: A&O x 3. CN II-XII intact, There are no obvious motor or sensory deficits. Coordination appears grossly intact. Speech is normal. Skin: See eye section. Skin is warm and dry. Psychiatric: Cooperative, appropriate mood & affect, normal judgment. Limitations: no limitations Course Vital Signs 10/17/16 16:37 Temperature 98.5 F Pulse Rate 86 Respiratory 16 Rate Blood Pressure 173/98 O2 Sat by Pulse 100 Oximetry Procedures - Procedures Initial comment: Procedure: Incision and drainage The skin overlying the abscess was prepped with Betadine, and anesthetized with 1% lidocaine without epinephrine. An 18-gauge needle was then used to incise the abscess. I had to use a #11 blade scalpel to further open the abscess a very small amount due to thick purulent drainage. Some purulent material was then extracted from the lesion. Wound culture obtained. Gauze dressing placed on top, The patient tolerated the procedure well. Medical Decision Making - Medical Decision Making This is a 36-year-old male who presents with swelling to the left eyebrow 2 months. On physical exam patient is afebrile in the EC. There is a warm fluctuant mass with swelling, tenderness and erythema to the lateral aspect of the left eyebrow consistent with abscess. Pupils are equal, round and reactive to light, extra-ocular movements are intact. No pain with extraocular movements. No nystagmus. There is normal conjunctiva bilaterally. No signs of icterus. The skin overlying the abscess was prepped with Betadine, and anesthetized with 1% lidocaine without epinephrine. An 18-gauge needle was then used to incise the abscess. I had to use a #11 blade scalpel to further open the abscess due to thick purulent drainage. Some purulent material was then extracted from the lesion. Wound culture obtained. Gauze dressing placed on top, The patient tolerated the procedure well. I discussed warm compresses to the area. I discussed that patient needs to finish his entire course of antibiotics. I discussed Tylenol and Motrin for pain and tramadol for any breakthrough pain. I discussed return parameters. Patient is given a referral to a family doctor today.Discussed that patient should follow up with PCP in one to 2 days or return to the EC for any worsening symptoms or for any further concerns. Patient was receptive to this plan and patient will be discharged home. Disposition Clinical Impression: Abscess Disposition: HOME SELF-CARE Condition: Good Instructions: Abscess (ED) Additional Instructions: Please finish entire course of antibiotics. Please use warm compresses to the area to keep it draining. Please use Tylenol and Motrin for pain and tramadol for any breakthrough pain. Please follow-up with your family physician in one to 2 days or return to the EC for any worsening symptoms or for any further concerns. Prescriptions: Sulfamethox-Tmp 800-160Mg [Bactrim DS 800-160 mg] 1 tab PO Q12HR #28 tab traMADol HCL [Ultram] 50 mg PO Q6HR #12 tab Referrals: None,Stated [Primary Care Provider] - 1-2 days Mariana Álvarez MD [STAFF PHYSICIAN] - 1-2 days Lorrie Lara III, MD [STAFF PHYSICIAN] - 1-2 days Monet Florez MD [STAFF PHYSICIAN] - 1-2 days Time of Disposition: 17:40
== END 2016-10-17 17:56 | disposition home or self-care (01) ==
LOC: EC 16:24
DX: L02.01 Cutaneous abscess of face (principal); F17.200 Nicotine dependence, unspecified, uncomplicated
CPT/HCPCS: 10060; 87070; 87205; 99283

== ENCOUNTER 2021-06-18 02:04 | Emergency (ER) | payer OTHER ==
[2021-06-18 02:12] VITALS: BP 137/114; PULSE 118; RESP 18; TEMP 98.8
[2021-06-18] MEDS ORDERED: HYDROmorphone 1 MG/ML 1 ML SYRINGE IM STA (02:28)
[2021-06-18] MEDS ORDERED: METOCLOPRAMIDE 10 MG TAB PO STA (02:35)
--- NOTE | 2021-06-18 02:43 | ED ---
Abdominal Pain HPI - General Chief Complaint: Abdominal Pain Stated Complaint: Abdominal Pain Time Seen by Provider: 06/18/21 02:21 Source: patient, EMS, RN notes reviewed Mode of arrival: EMS Limitations: no limitations - History of Present Illness Initial Comments: patient is a 40-year-old male that presents to the emergency department complaining of right side pain under his ribs. He notes he was recently discharged from [facility] where he had a negative workup labs were unremarkable chest x-ray was unremarkable. Patient notes he does have a pain contract with his pain medicine doctor and has a follow-up with him tomorrow to restart pain medications. Patient was otherwise well-appearing in no apparent distress. He was asking for pain medications by name in the ER. He denied any chest painshortness of breath headache nausea vomiting diarrhea constipation fever fatigue chills. - Related Data Previous Rx's Medication Instructions Recorded Folic Acid 1 mg PO DAILY #30 tablet 09/12/16 HYDROcodone/APAP 5-325MG [[place] 1 each PO Q6HR PRN #20 tab 09/12/16 5-325] LORazepam [Ativan] 0.5 mg PO TID PRN #20 tab 09/12/16 Multivitamins, Thera [Multivitamin 1 tab PO DAILY #30 tablet 09/12/16 (formulary)] Nicotine 14Mg/24Hr Patch [Habitrol] 1 patch TRANSDERM DAILY #30 patch 09/12/16 Pantoprazole Sodium [Protonix] 40 mg PO DAILY #30 tablet. 09/12/16 Thiamine [Vitamin B-1] 100 mg PO DAILY #30 tab 09/12/16 cloNIDine HCL [Catapres] 0.1 mg PO TID #90 tab 09/12/16 Sulfamethox-Tmp 800-160Mg [Bactrim 1 tab PO Q12HR #28 tab 10/17/16 DS 800-160 mg] traMADol HCL [Ultram] 50 mg PO Q6HR #12 tab 10/17/16 Metoclopramide [Reglan] 10 mg PO TID PRN #15 tab 06/18/21 Allergies Allergy/AdvReac Type Severity Reaction Status Date / Time No Known Allergies Allergy Verified 06/18/21 02:12 Review of Systems ROS Statement: Those systems with pertinent positive or pertinent negative responses have been documented in the HPI. ROS Other: All systems not noted in ROS Statement are negative. Past Medical History Past Medical History: No Reported History, Cancer Additional Past Medical History / Comment(s): pancreatitis History of Any Multi-Drug Resistant Organisms: None Reported Past Surgical History: Orthopedic Surgery Additional Past Surgical History / Comment(s): RIGHT HAND AND LEFT ARM SURGERY Past Anesthesia/Blood Transfusion Reactions: No Reported Reaction Past Psychological History: No Psychological Hx Reported Smoking Status: Former smoker Past Alcohol Use History: None Reported Past Drug Use History: Marijuana - Past Family History Father History Unknown: Yes Mother History Unknown: Yes General Exam Limitations: no limitations General appearance: alert, in no apparent distress Head exam: Present: atraumatic, normocephalic, normal inspection Eye exam: Present: normal appearance, PERRL, EOMI. Absent: scleral icterus, conjunctival injection, periorbital swelling ENT exam: Present: normal exam, mucous membranes moist Neck exam: Present: normal inspection, other (tracheostomy in place) Respiratory exam: Present: normal lung sounds bilaterally. Absent: respiratory distress, wheezes, rales, rhonchi, stridor Cardiovascular Exam: Present: regular rate, normal rhythm, normal heart sounds. Absent: systolic murmur, diastolic murmur, rubs, gallop, clicks GI/Abdominal exam: Present: soft, tenderness (generalized, no pinpoint tenderness), normal bowel sounds, other (feeding tube in place). Absent: distended, guarding, rebound, rigid Extremities exam: Present: normal inspection, full ROM, normal capillary refill. Absent: tenderness, pedal edema, joint swelling, calf tenderness Neurological exam: Present: alert, oriented X3 Psychiatric exam: Present: normal affect, normal mood Skin exam: Present: warm, dry, intact, normal color. Absent: rash Course Vital Signs 06/18/21 02:07 Temperature 98.8 F Pulse Rate 118 H Respiratory 18 Rate Blood Pressure 137/114 O2 Sat by Pulse 100 Oximetry Medical Decision Making - Medical Decision Making 40-year-old male complaining of right side pain recently discharged from the [facility] earlier today. Upon reviewing [facility] no in labs, labs were unremarkable with normal white count, CMP was unremarkable, chest x-ray was unremarkable. Patient does display heavy pain medication seeking tendencies. Based upon labs that were done earlier today no workup needed at this time. Patient was informed that he needs to continue to follow-up with his primary care and pain medicine doctor for chronic pain management. 1 mg of Dilaudid ordered. Case discussed with Dr. Guevara, patient will discharge home Disposition Clinical Impression: Chronic pain, Drug-seeking behavior Disposition: HOME SELF-CARE Condition: Stable Instructions (If sedation given, give patient instructions): Polysubstance Abuse (ED) Additional Instructions: Please return to the Emergency Department if symptoms worsen or any other concerns. It is pertinent that he follow-up with her primary care and pain medicine specialist for chronic pain management. Is patient prescribed a controlled substance at d/c from ED?: No Referrals: None,Stated [Primary Care Provider] - 1-2 days Time of Disposition: 02:43
== END 2021-06-18 03:30 | disposition home or self-care (01) ==
LOC: EC 02:04
DX: G89.29 Other chronic pain (principal); R10.9 Unspecified abdominal pain; Z76.5 Malingerer [conscious simulation]; Z87.891 Personal history of nicotine dependence
CPT/HCPCS: 99284; 96372; J1170; 99283

== ENCOUNTER 2021-08-06 19:55 | Inpatient (IN) | payer OTHER ==
[2021-08-06] MEDS ORDERED: SODIUM CHLORIDE 0.9% 500 ML 500 ML IV STA (20:27)
[2021-08-06] MEDS ORDERED: ONDANSETRON 4 MG/2 ML VIAL IVP STA (20:27)
[2021-08-06] MEDS ORDERED: HYDROmorphone 0.5 MG/0.5 ML SYRINGE IVP STA (20:27)
--- NOTE | 2021-08-06 20:34 | ED ---
General Adult HPI - General Chief complaint: Abdominal Pain Stated complaint: Abdominal Pain, vomiting Time Seen by Provider: 08/06/21 20:25 Source: patient, EMS, RN notes reviewed, old records reviewed Mode of arrival: EMS Limitations: no limitations - History of Present Illness Initial comments: 40-year-old cachectic black male presents to the emergency room with complaints of 2 days of nausea and vomiting and right upper quadrant abdominal pain. P atient states that he did see his primary care doctor and prescribed him his Zofran. Patient is a poor historian. He states that he does have a history of tracheostomy for some type of cancer that he cannot recall. He also has a history of pancreatitis. He states that his care is usually at [facility] [address] he has not been here before. He is requesting pain medication and nausea medicine. He denies any hematochezia or hematemesis. -: days(s) (2) Location: abdomen (Right upper quadrant) Radiation: non-radiation Severity scale (1-10): 10 Quality: sharp, constant Consistency: constant Improves with: none Worsens with: other (palpation) Associated Symptoms: nausea/vomiting Treatments Prior to Arrival: other (nausea medicine) - Related Data Home Medications Medication Instructions Recorded Confirmed Apixaban [Eliquis] 5 mg PO BID 08/06/21 08/06/21 Nystatin 100,000 Unit/ml Susp 5 ml PO Q4H PRN 08/06/21 08/06/21 [Mycostatin Oral Susp] Ondansetron Odt [Zofran Odt] 8 mg PO BID PRN 08/06/21 08/06/21 oxyCODONE HCL [oxyCODONE HCL (IR)] 20 mg PO Q6H PRN 08/06/21 08/06/21 Previous Rx's Medication Instructions Recorded Pantoprazole Sodium [Protonix] 40 mg PO DAILY #30 tablet. 09/12/16 Allergies Allergy/AdvReac Type Severity Reaction Status Date / Time No Known Allergies Allergy Verified 08/06/21 20:31 Review of Systems ROS Statement: Those systems with pertinent positive or pertinent negative responses have been documented in the HPI. ROS Other: All systems not noted in ROS Statement are negative. Past Medical History Past Medical History: No Reported History, Cancer Additional Past Medical History / Comment(s): pancreatitis History of Any Multi-Drug Resistant Organisms: None Reported Past Surgical History: Orthopedic Surgery Additional Past Surgical History / Comment(s): RIGHT HAND AND LEFT ARM SURGERY Past Anesthesia/Blood Transfusion Reactions: No Reported Reaction Past Psychological History: No Psychological Hx Reported Smoking Status: Former smoker Past Alcohol Use History: None Reported Past Drug Use History: Marijuana - Past Family History Father History Unknown: Yes Mother History Unknown: Yes General Exam Limitations: no limitations (Poor historian) General appearance: alert, in no apparent distress Head exam: Present: atraumatic, normocephalic, normal inspection Eye exam: Present: EOMI. Absent: periorbital swelling, periorbital tenderness ENT exam: Present: mucous membranes dry, other (Tracheostomy present) Neck exam: Present: full ROM, other (Tracheostomy present). Absent: tenderness, meningismus, lymphadenopathy Respiratory exam: Present: normal lung sounds bilaterally. Absent: respiratory distress, wheezes, rales, rhonchi, stridor, chest wall tenderness, accessory muscle use Cardiovascular Exam: Present: regular rate, normal rhythm, normal heart sounds. Absent: systolic murmur, diastolic murmur, rubs, gallop, clicks, JVD GI/Abdominal exam: Present: soft, tenderness (Right upper quadrant). Absent: distended, guarding, rebound, rigid Extremities exam: Present: normal inspection, full ROM, normal capillary refill. Absent: tenderness, pedal edema, joint swelling, calf tenderness Neurological exam: Present: alert, oriented X3 Psychiatric exam: Present: normal affect, normal mood Skin exam: Present: warm, dry, intact, normal color. Absent: rash, cyanosis, diaphoretic, petechiae, pallor Course Vital Signs 08/06/21 08/06/21 19:57 23:41 Temperature 97.8 F Pulse Rate 95 92 Respiratory 16 16 Rate Blood Pressure 155/98 161/89 O2 Sat by Pulse 96 95 Oximetry Medical Decision Making - Medical Decision Making 40-year-old cachectic black male presents with complaints of 2 days of nausea and vomiting and right upper quadrant abdominal pain. He has a history of pancreatitis, he does have a trach tube to room air states from some type of cancer. He states that his care is usually at [facility] [address] he has not been here before. Potassium is 2.9 patient was given IV replacement. Chloride level is 68 , BUN and creatinine are elevated at [address] of abdomen and pelvis with contrast was completed prior to the BUN and creatinine result. Small pancreatic calcifications are seen which is consistent with chronic pancreatitis at the posterior pancreatic. There is a hiatal hernia and circumferential thickening of the distal esophagus which could relate to esophagitis however an esophageal tumor cannot be excluded. He was given IV fluid bolus for hypochloremia and postcontrast CT. He will be admitted to the hospital with anemia, acute kidney injury and hypochloremia. Case discussed with Dr. Gore - Lab Data Result diagrams: 08/06/21 22:11 08/06/21 22:11 Lab Results 08/06/21 08/06/21 08/06/21 Range/Units 22:11 22:11 22:11 WBC 11.8 H (3.8-10.6) k/uL RBC 5.31 (4.30-5.90) m/uL Hgb 13.7 (13.0-17.5) gm/dL Hct 43.8 (39.0-53.0) % MCV 82.5 (80.0-100.0) fL MCH 25.7 (25.0-35.0) pg MCHC 31.2 (31.0-37.0) g/dL RDW 14.4 (11.5-15.5) % Plt Count 308 (150-450) k/uL MPV 7.2 Neutrophils % 92 % Lymphocytes % 4 % Monocytes % 4 % Eosinophils % 0 % Basophils % 0 % Neutrophils # 10.8 H (1.3-7.7) k/uL Lymphocytes # 0.4 L (1.0-4.8) k/uL Monocytes # 0.5 (0-1.0) k/uL Eosinophils # 0.0 (0-0.7) k/uL Basophils # 0.0 (0-0.2) k/uL Hypochromasia Slight PT (9.0-12.0) sec INR (<1.2) APTT (22.0-30.0) sec Sodium 132 L (137-145) mmol/L Potassium 2.9 L (3.5-5.1) mmol/L Chloride 68 L* (98-107) mmol/L Carbon Dioxide 47 H* (22-30) mmol/L Anion Gap 17 mmol/L BUN 46 H (9-20) mg/dL Creatinine 2.35 H (0.66-1.25) mg/dL Est GFR (CKD-EPI)AfAm 38 (>60 ml/min/1.73 sqM) Est GFR (CKD-EPI)NonAf 33 (>60 ml/min/1.73 sqM) Glucose 148 H (74-99) mg/dL Plasma Lactic Acid Shady 1.6 (0.7-2.0) mmol/L Calcium 8.9 (8.4-10.2) mg/dL Total Bilirubin 0.8 (0.2-1.3) mg/dL AST 20 (17-59) U/L ALT 10 (4-49) U/L Alkaline Phosphatase 107 (38-126) U/L Total Protein 8.2 (6.3-8.2) g/dL Albumin 4.6 (3.5-5.0) g/dL Amylase 74 (30-110) U/L Lipase 36 (23-300) U/L 08/06/21 Range/Units 22:11 WBC (3.8-10.6) k/uL RBC (4.30-5.90) m/uL Hgb (13.0-17.5) gm/dL Hct (39.0-53.0) % MCV (80.0-100.0) fL MCH (25.0-35.0) pg MCHC (31.0-37.0) g/dL RDW (11.5-15.5) % Plt Count (150-450) k/uL MPV Neutrophils % % Lymphocytes % % Monocytes % % Eosinophils % % Basophils % % Neutrophils # (1.3-7.7) k/uL Lymphocytes # (1.0-4.8) k/uL Monocytes # (0-1.0) k/uL Eosinophils # (0-0.7) k/uL Basophils # (0-0.2) k/uL Hypochromasia PT 11.4 (9.0-12.0) sec INR 1.1 (<1.2) APTT 28.4 (22.0-30.0) sec Sodium (137-145) mmol/L Potassium (3.5-5.1) mmol/L Chloride (98-107) mmol/L Carbon Dioxide (22-30) mmol/L Anion Gap mmol/L BUN (9-20) mg/dL Creatinine (0.66-1.25) mg/dL Est GFR (CKD-EPI)AfAm (>60 ml/min/1.73 sqM) Est GFR (CKD-EPI)NonAf (>60 ml/min/1.73 sqM) Glucose (74-99) mg/dL Plasma Lactic Acid Shady (0.7-2.0) mmol/L Calcium (8.4-10.2) mg/dL Total Bilirubin (0.2-1.3) mg/dL AST (17-59) U/L ALT (4-49) U/L Alkaline Phosphatase (38-126) U/L Total Protein (6.3-8.2) g/dL Albumin (3.5-5.0) g/dL Amylase (30-110) U/L Lipase (23-300) U/L Disposition Clinical Impression: MANDO (acute kidney injury), Hypokalemia, Hypochloremia, Abdominal pain Disposition: ADMITTED IP TO THIS [facility] Referrals: None,Stated [Primary Care Provider] - 1-2 days Decision Date: 08/06/21 Decision Time: 23:22
[2021-08-06 22:36] LABS: Albumin 4.6 g/dL (3.5-5.0); Calcium 8.9 mg/dL (8.4-10.2); Potassium 2.9 mmol/L (3.5-5.1); Total Bilirubin 0.8 mg/dL (0.2-1.3); Total Protein 8.2 g/dL (6.3-8.2)
[2021-08-06 22:41] LABS: INR 1.1 (<1.2); Partial Thromboplastin Time 28.4 sec (22.0-30.0); Prothrombin Time 11.4 sec (9.0-12.0)
[2021-08-06] MEDS ORDERED: SODIUM CHLORIDE 0.9% 1,000 ML IV ONE (22:58)
[2021-08-06] MEDS ORDERED: Potassium Replacement Protocol 1 EACH MISC MISCELLANE PRN (22:59)
[2021-08-06] MEDS ORDERED: SODIUM CHLORIDE 0.9% 1,000 ML IV SCH (23:00)
--- NOTE | 2021-08-06 23:08 | CT ---
EXAMINATION TYPE: CT abdomen pelvis w con DATE OF EXAM: 08/06/2021 COMPARISON: 09/09/2016 HISTORY: RUQ pain, nausea, vomiting. hx of pancreatitis. CT DLP: 502.8 mGycm Automated exposure control for dose reduction was used. CONTRAST: Performed with IV Contrast, patient injected with 100 mL of Isovue 300. Images obtained from the diaphragm to the floor the pelvis with IV contrast. The lung bases are clear. There is no pleural effusion. There is mild hiatal hernia. The stomach is i ntact. There is gastrostomy tube noted. There is some wall thickening of the distal esophagus. Heart size is normal. There is no pericardial effusion. Liver spleen appear intact. The bile ducts ar e not dilated. There is no evidence of pancreatic mass. There are a few small calcifications in the p ancreatic head. Gallbladder appears normal. There is no adrenal mass. Kidneys show satisfactory contrast opacification. There is no hydronephrosi s. Bladder distends smoothly. There is no inguinal hernia. There is no free fluid in the pelvis. Ther e is no evidence of a pelvic mass. There is no mesenteric edema. There is no ascites or free air. There is no sign of a bowel obstructio n. Appendix not seen. No sign of thickened appendix. Lumbar vertebrae have normal spacing and alignment. Posterior elements are intact. There is no compre ssion fracture. Bony pelvis is intact. The hip joints are intact. IMPRESSION: Small pancreatic calcifications consistent with chronic pancreatitis at the posterior pancreatic head . There is clearing of the 2.5 cm cyst in the posterior pancreas compared to old exam. There is a hiatal hernia and circumferential wall thickening of the distal esophagus. This could rela te to esophagitis. This appears new compared to old exam. Esophageal tumor not excluded.
[2021-08-06 23:09] LABS: Basophils % (A) 0 %; Eosinophils % (A) 0 %; HCT 43.8 % (39.0-53.0); HGB 13.7 gm/dL (13.0-17.5); Hypochromasia Slight; Lymphocytes # (A) 0.4 k/uL (1.0-4.8); Lymphocytes % (A) 4 %; MCH 25.7 pg (25.0-35.0); MCHC 31.2 g/dL (31.0-37.0); MCV 82.5 fL (80.0-100.0); Mean Platelet Volume 7.2; Monocytes # (A) 0.5 k/uL (0-1.0); Monocytes % (A) 4 %; Neutrophils # (A) 10.8 k/uL (1.3-7.7); Neutrophils % (A) 92 %; Platelet Count 308 k/uL (150-450); RBC 5.31 m/uL (4.30-5.90); RDW 14.4 % (11.5-15.5); WBC 11.8 k/uL (3.8-10.6)
[2021-08-06] MEDS ORDERED: HYDROmorphone 1 MG/ML 1 ML SYRINGE IVP STA (23:15)
[2021-08-06] MEDS ORDERED: NALOXONE 0.4 MG/ML 1 ML VIAL IV PRN (23:22)
[2021-08-06] MEDS ORDERED: PANTOPRAZOLE 40 MG/10 ML VIAL IV SCH (23:30)
[2021-08-06] MEDS: POTASSIUM CHLORIDE ER 20 MEQ TAB.ER PO SCH (23:34)
[2021-08-07] MEDS ORDERED: NYSTATIN 100,000 UNIT/ML SUSP 500,000 UNIT/5 ML CUP PO PRN (00:11)
[2021-08-07] MEDS ORDERED: ONDANSETRON 4 MG/2 ML VIAL IVP PRN (00:24)
[2021-08-07] MEDS ORDERED: DEXTROSE 5%-0.45% NACL 1,000 ML IV ONE (00:24)
[2021-08-07] MEDS ORDERED: SODIUM CHLORIDE 0.9% 1,000 ML IV STA (00:24)
[2021-08-07] MEDS ORDERED: PROCHLORPERAZINE INJ 10 MG/2 ML VIAL IVP STA (00:24)
[2021-08-07] MEDS ORDERED: PROCHLORPERAZINE INJ 10 MG/2 ML VIAL IVP PRN (00:24)
[2021-08-07 00:39] LABS: Appearance,Urine Clear (Clear); Bilirubin,Urine Negative (Negative); Blood,Urine Negative (Negative); Color,Urine Yellow; Glucose,Urine (UA) Negative (Negative); Hyaline Casts,Urine 10 /lpf (0-2); Ketones,Urine Trace (Negative); Leukocyte Esterase,Urine Negative (Negative); Mucus,Urine Rare /hpf; Nitrite,Urine Negative (Negative); Protein,Urine 1+ (Negative); RBC,Urine <1 /hpf (0-5); Specific Gravity,Urine 1.024 (1.001-1.035); Squamous Epithelial Cell,Urine <1 /hpf (0-4); Urobilinogen,Urine <2.0 mg/dL (<2.0); WBC,Urine 1 /hpf (0-5)
[2021-08-07] MEDS: HYDROmorphone 1 MG/ML 1 ML SYRINGE IVP PRN ×4 (03:28→20:20)
[2021-08-07] MEDS: POTASSIUM CHLORIDE ER 20 MEQ TAB.ER PO SCH ×5 (03:31→18:29)
[2021-08-07 09:00] LABS: Albumin 4.6 g/dL (3.5-5.0); Calcium 9.1 mg/dL (8.4-10.2); Magnesium 1.5 mg/dL (1.6-2.3); Potassium 2.9 mmol/L (3.5-5.1); Total Bilirubin 0.8 mg/dL (0.2-1.3); Total Protein 8.1 g/dL (6.3-8.2)
[2021-08-07] MEDS: APIXABAN 5 MG TAB PO SCH ×2 (09:00→19:41)
[2021-08-07] MEDS: SODIUM CHLORIDE 0.9% 1,000 ML IV SCH ×2 (09:44→22:30)
[2021-08-07] MEDS: PANTOPRAZOLE 40 MG/10 ML VIAL IVP SCH (09:45)
[2021-08-07] MEDS ORDERED: POTASSIUM CHLORIDE 60 MEQ in WATER FOR INJECTION 1 100ML.BAG IVPB STA (09:51)
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
[2021-08-07] MEDS: MAGNESIUM SULFATE-D5W PMX 1 GM in DEXTROSE/WATER 1 100ML.BAG IVPB SCH ×2 (10:35→13:42)
[2021-08-07] MEDS: POTASSIUM CHLORIDE 20 MEQ in WATER FOR INJECTION 1 100ML.BAG IVPB SCH ×3 (12:08→13:35)
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
[2021-08-07] MEDS ORDERED: Potassium Replacement Protocol 1 EACH MISC MISCELLANE PRN (16:55)
[2021-08-07] MEDS ORDERED: POTASSIUM CHLORIDE 20 MEQ in WATER FOR INJECTION 1 100ML.BAG IVPB ONE (21:25)
[2021-08-08] MEDS: HYDROmorphone 1 MG/ML 1 ML SYRINGE IVP PRN ×2 (02:37→08:57)
[2021-08-08 08:14] LABS: Calcium 8.7 mg/dL (8.4-10.2); Potassium 3.7 mmol/L (3.5-5.1)
[2021-08-08 08:19] LABS: Basophils % (A) 0 %; Eosinophils # (A) 0.1 k/uL (0-0.7); Eosinophils % (A) 1 %; Hypochromasia Moderate; Lymphocytes # (A) 0.9 k/uL (1.0-4.8); Lymphocytes % (A) 13 %; MCH 25.8 pg (25.0-35.0); MCHC 30.4 g/dL (31.0-37.0); MCV 84.9 fL (80.0-100.0); Mean Platelet Volume 7.5; Monocytes # (A) 0.4 k/uL (0-1.0); Monocytes % (A) 5 %; Neutrophils # (A) 5.4 k/uL (1.3-7.7); Neutrophils % (A) 79 %; Platelet Count 235 k/uL (150-450); RBC 4.12 m/uL (4.30-5.90); RDW 13.9 % (11.5-15.5); WBC 6.8 k/uL (3.8-10.6)
[2021-08-08 08:23] LABS: HGB 10.6 gm/dL (13.0-17.5)
[2021-08-08] MEDS: POTASSIUM CHLORIDE 10 MEQ in WATER FOR INJECTION 1 100ML.BAG IVPB SCH ×6 (08:53→09:27)
[2021-08-08] MEDS: SODIUM CHLORIDE 0.9% 1,000 ML IV SCH ×2 (08:54→19:56)
[2021-08-08] MEDS: PANTOPRAZOLE 40 MG/10 ML VIAL IVP SCH (08:56)
[2021-08-08 12:52] VITALS: BMI 18.7
[2021-08-08] MEDS: HYDROmorphone 0.5 MG/0.5 ML SYRINGE IVP PRN ×3 (15:10→23:27)
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
[2021-08-09] MEDS: SODIUM CHLORIDE 0.9% 1,000 ML IV SCH (04:09)
[2021-08-09] MEDS: HYDROmorphone 0.5 MG/0.5 ML SYRINGE IVP PRN ×2 (07:50→12:02)
[2021-08-09] MEDS: PANTOPRAZOLE 40 MG TABLET PO SCH ×2 (07:50→07:59)
[2021-08-09 08:20] LABS: HCT 35.4 % (39.0-53.0); HGB 10.5 gm/dL (13.0-17.5); Hypochromasia Marked; MCH 25.4 pg (25.0-35.0); MCHC 29.7 g/dL (31.0-37.0); MCV 85.8 fL (80.0-100.0); Mean Platelet Volume 7.2; Platelet Count 252 k/uL (150-450); RBC 4.13 m/uL (4.30-5.90); RDW 14.2 % (11.5-15.5); WBC 4.8 k/uL (3.8-10.6)
[2021-08-09 08:29] LABS: African American GFR (CKD) >90 (>60 ml/min/1.73 sqM); Anion Gap 5 mmol/L; Blood Urea Nitrogen 17 mg/dL (9-20); Calcium 8.5 mg/dL (8.4-10.2); Carbon Dioxide 27 mmol/L (22-30); Chloride 98 mmol/L (98-107); Glucose 103 mg/dL (74-99); Non-African American GFR(CKD) 81 (>60 ml/min/1.73 sqM); Potassium 3.5 mmol/L (3.5-5.1); Sodium 130 mmol/L (137-145)
[2021-08-09 08:56] VITALS: BP 168/94; PULSE 77; RESP 16; TEMP 96.9
[2021-08-09] MEDS ORDERED: PROPOFOL 10 MG/ML 20 ML VIAL IV ONE (11:01)
[2021-08-09] MEDS ORDERED: LIDOCAINE 1% INJ 10MG/ML (20 ML MDV) ONE (11:01)
[2021-08-09] MEDS ORDERED: IV FLUID CONTINUATION 1,000 ML IV ONE ×2 (11:03)
--- NOTE | 2021-08-09 11:20 | P.OP ---
Date of Procedure: 08/09/21 Preoperative Diagnosis: GERD Postoperative Diagnosis: Erosive esophagitis Procedure(s) Performed: EGD Anesthesia: MAC Surgeon: Mingo Leblanc Pathology: other (Esophagus) Condition: stable Disposition: PACU Description of Procedure: The patient's placed on the endoscopy table in the lateral position. He received IV sedation. The gastro-/oropharynx passed in the esophagus and stomach. Scope was placed through the pylorus. First and second portion of the duodenum appeared normal. Scope was then brought back the antrum this appeared normal. The patient appears PEG tube this was visualized. The scope was brought back in then the distal esophagus there was erosive esophagitis. A biopsies performed. The proximal esophagus appeared normal. Scope withdrawn for patient.
[2021-08-09] MEDS: PANTOPRAZOLE 40 MG/10 ML VIAL IVP SCH ×2 (12:01→12:19)
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
== END 2021-08-09 12:57 | disposition home health service (06) | DRG 380 ==
LOC: EC 19:55 → 5NMEDONC 08-07 01:36 → 3NCARDOBS 08-07 06:58
PROVIDERS: ADMIT Hospitalist; ATTEND Hospitalist
PROC: 0DB58ZX Excision of Esophagus, Via Natural or Artificial Opening Endoscopic, Diagnostic (ICD-10-PCS; principal; 2021-08-09 10:20)
DX: K22.10 Ulcer of esophagus without bleeding (principal); E43 Unspecified severe protein-calorie malnutrition; N17.0 Acute kidney failure with tubular necrosis; K44.1 Diaphragmatic hernia with gangrene; E87.1 Hypo-osmolality and hyponatremia; E87.3 Alkalosis; K86.1 Other chronic pancreatitis; R64 Cachexia; Z68.1 Body mass index [BMI] 19.9 or less, adult; K29.00 Acute gastritis without bleeding; E87.8 Other disorders of electrolyte and fluid balance, not elsewhere classified; E86.1 Hypovolemia; D64.9 Anemia, unspecified; E83.42 Hypomagnesemia; E87.6 Hypokalemia; K21.9 Gastro-esophageal reflux disease without esophagitis; K44.9 Diaphragmatic hernia without obstruction or gangrene; Z79.01 Long term (current) use of anticoagulants; M19.90 Unspecified osteoarthritis, unspecified site; Z20.822 Contact with and (suspected) exposure to COVID-19; F10.11 Alcohol abuse, in remission; Z79.899 Other long term (current) drug therapy; Z81.1 Family history of alcohol abuse and dependence; Z85.89 Personal history of malignant neoplasm of other organs and systems; Z93.0 Tracheostomy status; Z92.3 Personal history of irradiation; Z92.21 Personal history of antineoplastic chemotherapy; Z87.891 Personal history of nicotine dependence; Z86.711 Personal history of pulmonary embolism
CPT/HCPCS: 36415; 43239; 74177; 80048; 80053; 81001; 82150; 83605; 83690; 83735; 84132; 85025; 85027; 85610; 85730; 87635; 88305; 93005

== ENCOUNTER 2021-08-20 15:24 | Emergency (ER) | payer OTHER ==
[2021-08-20 15:32] VITALS: TEMP 97.8
[2021-08-20 16:26] LABS: Basophils % (A) 0 %; Eosinophils # (A) 0.1 k/uL (0-0.7); Eosinophils % (A) 1 %; HCT 36.4 % (39.0-53.0); HGB 11.4 gm/dL (13.0-17.5); Hypochromasia Slight; Lymphocytes % (A) 11 %; MCH 25.7 pg (25.0-35.0); MCHC 31.3 g/dL (31.0-37.0); Mean Platelet Volume 6.9; Monocytes # (A) 0.3 k/uL (0-1.0); Monocytes % (A) 3 %; Neutrophils # (A) 7.6 k/uL (1.3-7.7); Neutrophils % (A) 84 %; Platelet Count 424 k/uL (150-450); RBC 4.44 m/uL (4.30-5.90); RDW 13.9 % (11.5-15.5); WBC 9.1 k/uL (3.8-10.6)
[2021-08-20 16:36] LABS: ALT 10 U/L (4-49); AST 20 U/L (17-59); African American GFR (CKD) >90 (>60 ml/min/1.73 sqM); Albumin 4.2 g/dL (3.5-5.0); Alkaline Phosphatase 89 U/L (38-126); Amylase 51 U/L (30-110); Anion Gap 12 mmol/L; Blood Urea Nitrogen 22 mg/dL (9-20); Calcium 9.4 mg/dL (8.4-10.2); Carbon Dioxide 18 mmol/L (22-30); Chloride 103 mmol/L (98-107); Glucose 100 mg/dL (74-99); Lipase 79 U/L (23-300); Non-African American GFR(CKD) 89 (>60 ml/min/1.73 sqM); Potassium 4.6 mmol/L (3.5-5.1); Sodium 133 mmol/L (137-145); Total Bilirubin 0.5 mg/dL (0.2-1.3); Total Protein 7.4 g/dL (6.3-8.2)
[2021-08-20] MEDS ORDERED: ONDANSETRON 4 MG/2 ML VIAL IVP STA (16:37)
[2021-08-20] MEDS ORDERED: HYDROmorphone 1 MG/ML 1 ML SYRINGE IVP STA ×2 (16:37→18:54)
[2021-08-20] MEDS ORDERED: SODIUM CHLORIDE 0.9% 500 ML 500 ML IV ONE (16:38)
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
--- NOTE | 2021-08-20 18:00 | CT ---
EXAMINATION TYPE: CT abdomen pelvis w con CT DLP: 536.1 mGycm, Automated exposure control for dose reduction was used. DATE OF EXAM: 08/20/2021 5:40 PM COMPARISON: CT abdomen pelvis most recent from 08/06/2021 . CLINICAL INDICATION:Male, 40 years old with history of abd pain; abdominal pain TECHNIQUE: Standard CT of the abdomen and pelvis following the administration of 100 cc of Isovue 3 00 IV contrast material. Coronal and sagittal reformats were performed. FINDINGS: LOWER CHEST: Unremarkable ABDOMEN LIVER: Unremarkable GALLBLADDER AND BILE DUCTS: Unremarkable. PANCREAS: Unremarkable. SPLEEN: Unremarkable. ADRENAL GLANDS: Unremarkable. KIDNEYS AND URETERS: No evidence of hydronephrosis or renal calculus. The ureters are unremarkable. PELVIS BLADDER: Unremarkable REPRODUCTIVE: Unremarkable. ABDOMEN & PELVIS STOMACH AND BOWEL: PEG tube with balloon in the stomach lumen. The duodenum is unremarkable. There is diffuse prominent small bowel loops throughout the abdomen without transition point. The colon is pr edominantly fluid-filled into the descending sigmoid colon junction. No evidence of bowel obstruction . The appendix is visible and unremarkable. The mucosa of the small bowel stomach and to lesser exten t large bowel is hyperemic. PERITONEUM: No evidence of pneumoperitoneum or free fluid. VASCULATURE: No evidence of aortic aneurysm. MUSCULOSKELETAL: No acute osseous abnormalities LYMPH NODES: No gross evidence for lymphadenopathy. SOFT TISSUE/ABDOMINAL WALL: Unremarkable IMPRESSION: Nonspecific fluid-filled small bowel, colon, and gastric lumen with hyperemic mucosa. Correlate for g astroenteritis. No evidence for small bowel obstruction.
[2021-08-20 18:29] VITALS: BP 135/88; RESP 18
[2021-08-20] MEDS ORDERED: ONDANSETRON 4 MG ODT STARTER PACK 2 TAB BTL PO STA (18:54)
[2021-08-20 19:43] VITALS: PULSE 76
== END 2021-08-20 19:43 | disposition home or self-care (01) ==
LOC: EC 15:24
DX: R10.11 Right upper quadrant pain (principal); Z93.1 Gastrostomy status; F12.90 Cannabis use, unspecified, uncomplicated; Z79.01 Long term (current) use of anticoagulants; Z86.711 Personal history of pulmonary embolism; Z85.818 Personal history of malignant neoplasm of other sites of lip, oral cavity, and pharynx; Z87.891 Personal history of nicotine dependence
CPT/HCPCS: 99284; 96374; 96375; 96376; 36415; 93005; 80053; 82150; 83690; 85025; 74177; J2405; J1170; S0119; Q9967

== ENCOUNTER 2023-09-03 20:55 | Inpatient (IN) | payer BC, OTHER ==
[2023-09-03] MEDS: ONDANSETRON 4 MG/2 ML VIAL IVP STA (22:16)
[2023-09-03] MEDS: MORPHINE SULFATE 4 MG/ML SYRINGE IVP STA (22:16)
[2023-09-03] MEDS: SODIUM CHLORIDE 0.9% 1,000 ML IV STA (22:17)
[2023-09-03] MEDS: PANTOPRAZOLE 40 MG/10 ML VIAL IVP STA (22:20)
[2023-09-03 22:28] LABS: Basophils % (A) 0 %; Eosinophils # (A) 0.1 k/uL (0-0.7); Eosinophils % (A) 1 %; HCT 42.6 % (39.0-53.0); HGB 13.8 gm/dL (13.0-17.5); Hypochromasia Slight; Lymphocytes # (A) 0.5 k/uL (1.0-4.8); Lymphocytes % (A) 5 %; MCH 24.4 pg (25.0-35.0); MCHC 32.3 g/dL (31.0-37.0); MCV 75.6 fL (80.0-100.0); Microcytosis Slight; Monocytes # (A) 0.3 k/uL (0-1.0); Monocytes % (A) 3 %; Neutrophils # (A) 9.7 k/uL (1.3-7.7); Neutrophils % (A) 91 %; Platelet Count 256 k/uL (150-450); Poikilocytosis Slight; RBC 5.63 m/uL (4.30-5.90); RDW 15.4 % (11.5-15.5); WBC 10.7 k/uL (3.8-10.6)
[2023-09-03 23:28] LABS: ALT 11 U/L (4-49); AST 15 U/L (17-59); African American GFR (CKD) >90 (>60 ml/min/1.73 sqM); Albumin 2.6 g/dL (3.5-5.0); Alkaline Phosphatase 74 U/L (38-126); Anion Gap 5 mmol/L; Blood Urea Nitrogen 19 mg/dL (9-20); Calcium 7.7 mg/dL (8.4-10.2); Carbon Dioxide 21 mmol/L (22-30); Chloride 109 mmol/L (98-107); Glucose 97 mg/dL (74-99); Lipase 434 U/L (23-300); Non-African American GFR(CKD) >90 (>60 ml/min/1.73 sqM); Sodium 135 mmol/L (137-145); Total Bilirubin 0.4 mg/dL (0.2-1.3); Total Protein 4.8 g/dL (6.3-8.2)
[2023-09-03 23:29] LABS: Potassium 2.7 mmol/L (3.5-5.1)
--- NOTE | 2023-09-03 23:38 | CT ---
EXAM: CT Abdomen and Pelvis With Intravenous Contrast CLINICAL HISTORY: ITS.REASON CT Reason: abdominal pain TECHNIQUE: Axial computed tomography images of the abdomen and pelvis with intravenous contrast. CTDI is 9.8 mGy and DLP is 459.8 mGy-cm. This CT exam was performed using one or more of the following dose reduction techniques: automated exposure control, adjustment of the mA and/or kV according to patient size, and/or use of iterative reconstruction technique. COMPARISON: CT abdomen and pelvis August 06, 2021. FINDINGS: Lung bases: Consolidation at the RIGHT lung base, correlate for pneumonia/aspiration. ABDOMEN: Liver: Unremarkable. No mass. Gallbladder and bile ducts: Unremarkable. No calcified stones. No ductal dilation. Pancreas: Atrophy and calcifications throughout the pancreas, consistent with sequelae of chronic pancreatitis. Spleen: Unremarkable. No splenomegaly. Adrenals: Unremarkable. No mass. Kidneys and ureters: Unremarkable. No solid mass. No hydronephrosis. Stomach and bowel: See below. PELVIS: Appendix: No findings to suggest acute appendicitis. Bladder: Unremarkable. No mass. Reproductive: Unremarkable as visualized. ABDOMEN and PELVIS: Intraperitoneal space: Unremarkable. No free air. No significant fluid collection. Bones/joints: No acute fracture. No dislocation. Soft tissues: Unremarkable. Vasculature: Unremarkable. No abdominal aortic aneurysm. Lymph nodes: Unremarkable. No enlarged lymph nodes. Tubes, lines and devices: History of recent PEG tube removal and bowel obstruction. On current exam, there is intussusception in the LEFT lower quadrant (series 201 image 53. This is contributing to bowel obstruction. Associated, fluid distended colon, consistent with diarrheal disease. IMPRESSION: 1. Consolidation at the RIGHT lung base, correlate for pneumonia/aspiration. 2. History of recent PEG tube removal and bowel obstruction. On current exam, there is INTUSSUSCEPTION in the LEFT lower quadrant (series 201 image 53. This is contributing to bowel obstruction. Associated, fluid distended colon, consistent with diarrheal disease. Surgical evaluation recommended.
[2023-09-04] MEDS: HYDROmorphone 1 MG/ML 1 ML SYRINGE IVP STA (00:25)
[2023-09-04] MEDS ORDERED: NALOXONE 0.4 MG/ML 1 ML VIAL IV PRN (00:59)
[2023-09-04] MEDS ORDERED: ONDANSETRON 4 MG/2 ML VIAL IVP PRN (00:59)
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
[2023-09-04] MEDS: POTASSIUM CHLORIDE 10 MEQ in WATER FOR INJECTION 1 100ML.BAG IVPB SCH (01:12)
[2023-09-04 01:20] LABS: Appearance,Urine Cloudy (Clear); Bilirubin,Urine Negative (Negative); Blood,Urine Negative (Negative); Budding Yeast,Urine Rare /hpf; Color,Urine Yellow; Glucose,Urine (UA) Negative (Negative); Ketones,Urine Trace (Negative); Leukocyte Esterase,Urine Negative (Negative); Mucus,Urine Many /hpf; Nitrite,Urine Negative (Negative); Protein,Urine 2+ (Negative); RBC,Urine 7 /hpf (0-5); Squamous Epithelial Cell,Urine 1 /hpf (0-4); Urobilinogen,Urine <2.0 mg/dL (<2.0); WBC,Urine 4 /hpf (0-5)
--- NOTE | 2023-09-04 02:40 | XR ---
EXAM: XR Chest, 1 View CLINICAL HISTORY: ITS.REASON XR Reason: NG placement TECHNIQUE: Frontal view of the chest. COMPARISON: Chest radiograph on 09/11/2016 FINDINGS: Hardware: Right-sided Port-A-Cath terminates near the cavoatrial junction. Enteric tube courses past the diaphragm and out of the field- of-view. The sidehole is in the region of the gastric body. Lungs/pleura: Right basilar opacity. No pleural effusion or pneumothorax. Heart/mediastinum: Normal. No cardiomegaly. Soft tissues: Unremarkable. Bones: No acute fracture. Upper abdomen: Normal. IMPRESSION: 1. Right-sided Port-A-Cath terminates near the cavoatrial junction. Enteric tube courses past the diaphragm and out of the [id number]. The sidehole is in the region of the gastric body. 2. Right basilar opacity may represent atelectasis. <MYCVCSECTION> Communications: 09/04/23 03:04 Call From Hospital inbound call from staff regarding report (ET tube placement) when they zoom in on image it looks like ET tube terminates where it is supposed to? on 09/04 02:59 (-05:00)
[2023-09-04] MEDS: SODIUM CHLORIDE 0.9% 1,000 ML IV SCH (02:54)
[2023-09-04] MEDS: HYDROmorphone 1 MG/ML 1 ML SYRINGE IVP PRN (03:49)
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
[2023-09-04] MEDS: HEPARIN SODIUM,PORCINE 5,000 UNIT/ML 1 ML VIAL SQ SCH (08:12)
[2023-09-04] MEDS: PANTOPRAZOLE 40 MG/10 ML VIAL IVP SCH (08:12)
--- NOTE | 2023-09-04 13:24 | XR ---
EXAMINATION TYPE: XR abdomen 2V DATE OF EXAM: 09/04/2023 COMPARISON: 09/09/2016 HISTORY: Bowel obstruction TECHNIQUE: One view abdominal series FINDINGS: NG tube is seen tip overlying the gastric body. Persistent dilated bowel loops containing both large and small bowel. Distal obstruction or severe ileus differential diagnosis. There is lucency below th e right hemidiaphragm. Right-sided central line seen. Subsegmental linear basilar atelectasis. Contrast within the bladder. Calcifications upper abdomen may be related to chronic pancreatitis. Report called to the patients nu rse 1:20 PM, 09/04/2023. IMPRESSION: 1. Persistent dilated bowel loops both large and small bowel loops dilated. Colonic ileus or obstruct ion in the differential diagnosis 2. There is patchy lucency overlying the right upper quadrant small amount of free air not excluded. CT scan of the abdomen could be obtained to exclude free intraperitoneal air.
[2023-09-04] MEDS: IOPAMIDOL CONTRAST (ORAL USE) VIAL PO PRN (14:34)
[2023-09-04] MEDS ORDERED: DEXTROSE 50% SYRINGE 50 ML IVP PRN ×2 (15:49)
--- NOTE | 2023-09-04 16:07 | P.PN ---
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 He presented to the emergency department on 09/04/2023 for reports of abdominal pain/discomfort. He underwent full evaluation in the emergency department. Upon arrival vital signs stable with blood pressure 123/86, heart rate 84, respiratory rate 16, temp 98.4 F, and SpO2 of 97% on room air. Labs completed and reviewed. CBC showing leukocytosis with WBC count of 10.7. BMP revealing hypokalemia with potassium of 2.7, hyperchloremia with chloride of 109, hypocarbia with bicarb of 21, and anion gap of 5. Blood glucose was 97. Lactic acid was elevated at 2.1. Lipase elevated at 434. Urinalysis positive for protein, ketones, and 7 RBCs but negative for infection. CT abdomen and pelvis completed showing consolidation at the right lung base suspect possible aspiration versus atelectasis, and intussusception in the left lower quadrant contributing to suspected bowel obstruction with associated fluid distended co buck. NG tube was placed and x-ray was completed to confirm placement. Patient admitted under our services for bowel intussusception with concerns of obstruction with consultation to general surgery. Physical exam: Vital signs reviewed and stable. General: Nontoxic, no acute distress. Emaciated, thin and frail build Derm: Skin warm and dry, normal coloration for ethnicity. Head: Atraumatic, normocephalic and symmetric. Eyes: EOMs intact, no lid lag, and anicteric sclera Mouth: no lip lesions, mucus membranes moist Cardiovascular: regular rate and rhythm with normal S1S2, no murmur, positive posterior tibial pulses bilaterally, and cap refill < 2 seconds. Lungs: Respirations even, regular, and unlabored on room air. Lungs CTA bilaterally, no rhonchi, no rales, no wheezing, and no accessory muscle usage. Abdominal: soft distended diffuse tenderness upon palpation to lower quadrants. NG tube in place. Ext: ROM intact. No gross muscle atrophy, no edema, no contractures Neuro: Speech clear, face symmetrical and CN II-XII grossly intact with no noted focal neuro deficits Psych: Alert and oriented to person, place, time, and situation. Appropriate and pleasant affect. Assessment and Plan of Care: Abdominal pain, suspected bowel intussusception and obstruction History of GERD with erosive esophagitis History of gastritis Elevated lipase with history of chronic pancreatitis Lactic acidosis, resolved Non-anion gap metabolic acidosis Severe protein calorie malnutrition with BMI of 16.9 kg/m Continue NG tube to low intermittent suctioning General surgery consulted, appreciate recommendations Symptomatic care and pain management. Zofran 4 mg IVP every 8 hours as needed for nausea and/or vomiting and Dilaudid 1 mg every 3 hours as needed for pain. Continue vigorous IV fluid hydration with 0.9% normal saline at 130 cc/h. Protonix 40 mg IVP daily Strict NPO while NG tube is in place and orders placed for aspiration precautions Patient placed on glycemic protocol with [id number] glucose checks to be completed every 6 hours while NPO Consult placed to dietitian secondary to severe protein calorie malnutrition with BMI of 16.9 kg/m Hypokalemia Hypomagnesemia Abnormal electrolyte levels replaced. Will continue to monitor for improvement/resolution with repeat morning labs and place additional orders as indicated based upon these results. History of pulmonary emboli -Patient was undergoing cancer treatments during this time, considered provoked PE. -DVT prophylaxis with heparin 5000 units subcutaneously every 8 hours. Right lung base consolidation, suspect aspiration versus atelectasis -Patient denies shortness of breath, cough, or congestion. Does report recent episodes of vomiting. Will continue to monitor. Data reviewed: Labs completed and reviewed. Repeat potassium showing resolution of previous hypokalemia with potassium increasing to 3.5. Magnesium was low at 1.5. Lactic acidosis resolved with lactic acid decreasing from 2.1 down to 1.0 after IV fluid hydration. CODE STATUS: Full code DVT prophylaxis: Heparin Anticipated discharge date: Clinical course to determine Anticipated discharge place: Clinical course to determine Patient was seen independently by Nurse Pracitioner. This document was prepared using S[employer] dictation software. Please allow for errors in chamber magistrate, while rare they do occur. I reviewed the documentation as provided by the CATRINA above, who is the original author of this note. I agree with the documented assessment and plan, with the following changes: none Objective - Vital Signs Vital signs: Vital Signs Temp 97.6 F 09/04/23 07:25 Pulse 76 09/04/23 07:25 Resp 19 09/04/23 07:25 BP 126/86 09/04/23 07:25 Pulse Ox 95 09/04/23 07:25 FiO2 Intake & Output 09/03/23 09/04/23 09/04/23 18:59 06:59 18:59 Output Total 150 Balance -150 Weight 47.627 kg Output: Urine 150 - Labs CBC & Chem 7: 09/05/23 05:49 09/05/23 05:49 Labs: Abnormal Lab Results - Last 24 Hours (Table) 09/03/23 09/03/23 09/03/23 Range/Units 21:58 21:58 21:58 WBC 10.7 H (3.8-10.6) k/uL MCV 75.6 L (80.0-100.0) fL MCH 24.4 L (25.0-35.0) pg Neutrophils # 9.7 H (1.3-7.7) k/uL Lymphocytes # 0.5 L (1.0-4.8) k/uL Sodium (137-145) mmol/L Potassium (3.5-5.1) mmol/L Chloride (98-107) mmol/L Carbon Dioxide (22-30) mmol/L Creatinine (0.66-1.25) mg/dL Plasma Lactic Acid Shady 2.1 H* (0.7-2.0) mmol/L Calcium (8.4-10.2) mg/dL AST (17-59) U/L Total Protein (6.3-8.2) g/dL Albumin (3.5-5.0) g/dL Lipase (23-300) U/L Ur Specific [place] 1.050 H (1.001-1.035) Urine Protein 2+ H (Negative) Urine Ketones Trace H (Negative) Urine RBC 7 H (0-5) /hpf Urine Mucus Many H (None) /hpf Urine Yeast (Budding) Rare H (None) /hpf 09/03/23 Range/Units 22:41 WBC (3.8-10.6) k/uL MCV (80.0-100.0) fL MCH (25.0-35.0) pg Neutrophils # (1.3-7.7) k/uL Lymphocytes # (1.0-4.8) k/uL Sodium 135 L (137-145) mmol/L Potassium 2.7 L* (3.5-5.1) mmol/L Chloride 109 H (98-107) mmol/L Carbon Dioxide 21 L (22-30) mmol/L Creatinine 0.55 L (0.66-1.25) mg/dL Plasma Lactic Acid Shady (0.7-2.0) mmol/L Calcium 7.7 L (8.4-10.2) mg/dL AST 15 L (17-59) U/L Total Protein 4.8 L (6.3-8.2) g/dL Albumin 2.6 L (3.5-5.0) g/dL Lipase 434 H (23-300) U/L Ur Specific [place] (1.001-1.035) Urine Protein (Negative) Urine Ketones (Negative) Urine RBC (0-5) /hpf Urine Mucus (None) /hpf Urine Yeast (Budding) (None) /hpf
[2023-09-04] MEDS: MAGNESIUM SULFATE-D5W PMX 1 GM in DEXTROSE/WATER 1 100ML.BAG IVPB SCH (16:14)
--- NOTE | 2023-09-04 16:23 | CT ---
EXAMINATION TYPE: CT abdomen pelvis wo con CT DLP: 317.6 mGycm, Automated exposure control for dose reduction was used. DATE OF EXAM: 09/04/2023 4:09 PM COMPARISON: CT abdomen pelvis most recent from 09/03/2023. Radiograph 09/04/2023. CLINICAL INDICATION:Male, 42 years old with history of free air on xray, abdominal pain; free air on xray, abdominal pain TECHNIQUE: Axial CT abdomen pelvis wo con;Sagittal and coronal reformats were created on a separate workstation. Contrast used: mL of , (none if empty) Oral contrast used: with Oral Contrast (none if empty) FINDINGS: LOWER CHEST: Right lower lung airspace opacities and consolidation. Left lower lung more posterior medially. Trace bilateral pleural effusions. ABDOMEN LIVER: Unremarkable GALLBLADDER AND BILE DUCTS: Vicarious excretion of contrast within the bladder: Bladder lumen. PANCREAS: Multiple calcifications are seen throughout the pancreatic parenchyma with beaded appearanc e of the main pancreatic duct. SPLEEN: Unremarkable. ADRENAL GLANDS: Unremarkable. KIDNEYS AND URETERS: No evidence of hydronephrosis or renal calculus. The ureters are unremarkable. Excreted IV contrast is seen within the renal collecting systems. Visualized portions the collecting systems are patent. PELVIS BLADDER: Excreted IV contrast within the urinary bladder No evidence for mass. REPRODUCTIVE: Unremarkable. ABDOMEN & PELVIS STOMACH AND BOWEL: Intussusception seen on prior in 09/03/2023 is not visualized. There is gaseous dist ention of other colon. There is redundant sigmoid colon. There is large amount stool throughout the c olon. Gaseous distention of bowel throughout the abdomen with air layering anteriorly along the nonde pendent portion. There is a redundant sigmoid colon and the rectum and anus are more posteriorly whic h may make it difficult for all the gaseous dilation to pass. Nasogastric tube terminating in the gas tric lumen. PERITONEUM/RETROPERITONEUM: No evidence of pneumoperitoneum. There is a free fluid throughout the abd omen. VASCULATURE: No evidence of aortic aneurysm. MUSCULOSKELETAL: No acute osseous abnormalities LYMPH NODES: No gross evidence for lymphadenopathy. SOFT TISSUE/ABDOMINAL WALL: Unremarkable IMPRESSION: 1. No abdominal free air. 2. Bibasilar airspace opacities right and left concerning for aspiration. 3. Intussusception seen on prior's not well appreciated and may be resolved. 4. Gaseous and stool filled colon with redundant sigmoid colon. Given the fluid in the abdomen near, the gas is in the nondependent portion of the abdomen anteriorly and it may be difficult for the gas to pass through the rectum given the posterior location of the rectum and anus. 5. Chronic pancreatitis changes. 6. Small to moderate fluid throughout the abdomen.
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
[2023-09-05 02:41] LABS: Glucose,Whole Blood 77 mg/dL (70-110)
[2023-09-05 08:35] LABS: HCT 31.8 % (39.6-50.0); HGB 10.3 g/dL (13.0-17.0); MCH 23.6 pg (27.0-32.0); MCHC 32.4 g/dL (32.0-37.0); MCV 72.8 FL (80.0-97.0); Mean Platelet Volume 10.2 FL (9.5-12.2); NRBC Per 100 WBC 0 X 10*3/uL (0.00-0.01); Platelet Count 290 X 10*3/uL (140-440); RBC 4.37 X 10*6/uL (4.40-5.60); RDW 15.4 % (11.5-14.5); WBC 7.77 X 10*3/uL (4.50-10.00)
[2023-09-05 08:49] LABS: Glucose,Whole Blood 80 mg/dL (70-110)
[2023-09-05] MEDS: KETOROLAC 15 MG/ML 1 ML VIAL IVP PRN ×2 (09:05→21:04)
[2023-09-05 09:35] LABS: Lipase 16 U/L (14-60); Magnesium 1.9 mg/dL (1.5-2.4)
[2023-09-05 09:36] LABS: Blood Urea Nitrogen 14.1 mg/dL (9.0-27.0); Calcium 8.3 mg/dL (8.7-10.3); Carbon Dioxide 16.7 mmol/L (21.6-31.8); Chloride 105 mmol/L (96-109); Glucose 73 mg/dL (70-110); Potassium 3.9 mmol/L (3.5-5.5); Sodium 135 mmol/L (135-145)
[2023-09-05 09:46] LABS: Acanthocytes 2+; Basophils # (A) 0.01 X 10*3/uL (0.00-0.10); Basophils % (A) 0.1 %; Eosinophils # (A) 0.01 X 10*3/uL (0.04-0.35); Eosinophils % (A) 0.1 %; Lymphocytes # (A) 0.61 X 10*3/uL (0.90-5.00); Lymphocytes % (A) 7.9 %; Microcytosis (M) 2+; Monocytes # (A) 0.26 X 10*3/uL (0.20-1.00); Monocytes % (A) 3.3 %; Neutrophils # (A) 6.84 X 10*3/uL (1.80-7.70); Neutrophils % (A) 88.1 %; Schistocytes 1+
--- NOTE | 2023-09-05 13:39 | P.PN ---
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 He presented to the emergency department on 09/04/2023 for reports of abdominal pain/discomfort. He underwent full evaluation in the emergency department. Upon arrival vital signs stable with blood pressure 123/86, heart rate 84, respiratory rate 16, temp 98.4 F, and SpO2 of 97% on room air. Labs completed and reviewed. CBC showing leukocytosis with WBC count of 10.7. BMP revealing hypokalemia with potassium of 2.7, hyperchloremia with chloride of 109, hypocarbia with bicarb of 21, and anion gap of 5. Blood glucose was 97. Lactic acid was elevated at 2.1. Lipase elevated at 434. Urinalysis positive for protein, ketones, and 7 RBCs but negative for infection. CT abdomen and pelvis completed showing consolidation at the right lung base suspect possible aspiration versus atelectasis, and intussusception in the left lower quadrant contributing to suspected bowel obstruction with associated fluid distended colon. NG tube was placed and x-ray was completed to confirm placement. Patien t admitted under our services for bowel intussusception with concerns of obstruction with consultation to general surgery. Physical exam: Patient seen and fully evaluated at bedside. NG tube remains in place to low intermittent suction. Patient does report feeling slightly better and reports he can feel his bowel sounds. Patient is unclear if he has passed any flatus. Patient has not had bowel movement since admission. He continues to deny having any shortness of breath, cough or congestion, or any further episodes of vomiting. Vital signs reviewed and stable. General: Nontoxic, no acute distress. Emaciated, thin and frail build Derm: Skin warm and dry, normal coloration for ethnicity. Head: Atraumatic, normocephalic and symmetric. Eyes: EOMs intact, no lid lag, and anicteric sclera Mouth: no lip lesions, mucus membranes moist Cardiovascular: regular rate and rhythm with normal S1S2, no murmur, positive posterior tibial pulses bilaterally, and cap refill < 2 seconds. Lungs: Respirations even, regular, and unlabored on room air. Lungs CTA bilaterally, no rhonchi, no rales, no wheezing, and no accessory muscle usage. Abdominal: soft distended diffuse tenderness upon palpation to lower quadrants. NG tube in place. Ext: ROM intact. No gross muscle atrophy, no edema, no contractures Neuro: Speech clear, face symmetrical and CN II-XII grossly intact with no noted focal neuro deficits Psych: Alert and oriented to person, place, time, and situation. Appropriate and pleasant affect. Assessment and Plan of Care: Abdominal pain, suspected bowel intussusception and obstruction History of GERD with erosive esophagitis History of gastritis Elevated lipase with history of chronic pancreatitis Lactic acidosis, resolved High-anion gap metabolic acidosis Severe protein calorie malnutrition with BMI of 16.9 kg/m Continue NG tube to low intermittent suctioning General surgery following, reviewed documentation in chart Symptomatic care and pain management. Zofran 4 mg IVP every 8 hours as needed for nausea and/or vomiting and Dilaudid 1 mg every 3 hours as needed for pain. Continue vigorous IV fluid hydration with 0.9% normal saline at 130 cc/h. Protonix 40 mg IVP daily Strict NPO while NG tube is in place and orders placed for aspiration precautions Patient placed on glycemic protocol with bzigx-in-libt glucose checks to be completed every 6 hours while NPO Consult placed to dietitian secondary to severe protein calorie malnutrition with BMI of 16.9 kg/m Right lung base consolidation, suspect aspiration versus atelectasis -Patient denies shortness of breath, cough, or congestion. Does report recent episodes of vomiting which is likely cause of possible aspiration. SPO2 98% on room air. Will continue to monitor. -Will consult speech and language pathology for swallow evaluation once NG tube is removed and testing can be completed. -Aspiration precautions are in place. Hypokalemia, resolved Hypomagnesemia, resolved History of pulmonary emboli -Patient was undergoing cancer treatments during this time, considered provoked PE. -DVT prophylaxis with heparin 5000 units subcutaneously every 8 hours. Data reviewed: Labs completed and reviewed. CBC showing microcytic anemia with hemoglobin of 10.3. BMP revealing high anion gap metabolic acidosis with chloride of 105, bicarb of 16.7, and elevated anion gap of 13.30. Magnesium normal findings at 1.9. Vital signs were reviewed. Blood pressure 158/88, heart rate 55, respiratory rate 16, temp 97.6 F, and SpO2 of 98% on room air. CODE STATUS: Full code DVT prophylaxis: Heparin Anticipated discharge date: Clinical course to determine Anticipated discharge place: Clinical course to determine Patient was seen independently by Nurse Pracitioner. This document was prepared using eReceipts dictation software. Please allow for errors in global chief experience officer, while rare they do occur I reviewed the documentation as provided by the CATRINA above, who is the original author of this note. I agree with the documented assessment and plan, with the following changes: none Objective - Vital Signs Vital signs: Vital Signs Temp 97.6 F 09/05/23 06:40 Pulse 55 L 09/05/23 06:40 Resp 16 09/05/23 06:40 BP 158/88 09/05/23 06:40 Pulse Ox 98 09/05/23 06:40 FiO2 Intake & Output 09/04/23 09/05/23 09/05/23 18:59 06:59 18:59 Weight 47.627 kg Other: Voiding Method Urinal # Voids 3 1 - Labs CBC & Chem 7: 09/06/23 06:51 09/06/23 06:51 Labs: Abnormal Lab Results - Last 24 Hours (Table) 09/05/23 Range/Units 05:49 RBC 4.37 L (4.40-5.60) X 10*6/uL Hgb 10.3 L (13.0-17.0) g/dL Hct 31.8 L (39.6-50.0) % MCV 72.8 L (80.0-97.0) [place] MCH 23.6 L (27.0-32.0) pg RDW 15.4 H (11.5-14.5) %
--- NOTE | 2023-09-05 15:13 | FL ---
EXAMINATION TYPE: FL barium enema DATE OF EXAM: 09/05/2023 COMPARISON: CT scan 09/04/2023 HISTORY: Pain and dilated bowel TECHNIQUE: A single contrast barium enema study is performed. A total of 3 minutes and 31 seconds o f fluoroscopic time was utilized during procedure and 32 images obtained. Total dose area product (D AP) in uGy*m?, mGy*cm? (or similar): None available. FINDINGS: Editor Greeting Card view of the abdomen shows dilated small and large bowel loops in a pattern suspiciou s for obstruction or severe ileus. NG tube noted. Assessment for mucosal lesion limited due to unprep ped single-contrast barium enema. No evidence of any mass or polyp, obstructing or constricting lesion throughout the colon. No signif icant diverticular disease is noted. Contrast was seen to extend into the right colon but not to reach the cecum. Limited assessment of th e right colon. No evidence of a bird's beak sign to suggest volvulus as visualized. Mild localized ar ea of narrowing of the mid sigmoid colon noted. Consider assessment with direct visualization and col onoscopy as clinically warranted. IMPRESSION: 1. Cannot exclude localized area of bowel narrowing in the mid sigmoid colon. Consider direct visuali zation. Partially obstructive pattern in the differential diagnosis.
--- NOTE | 2023-09-05 15:42 | P.PN ---
Subjective Progress Note Date: 09/05/23 CHIEF COMPLAINT: Large bowel obstruction versus ileus HISTORY OF PRESENT ILLNESS: Patient continues to report abdominal pain. Abdomen does appears less distended. He is having flatus. No bowel movement. NG tube output 150 mL bilious output. Patient still complaining of abdominal pain. IV pain medication not lasting long enough. Afebrile. WBC is 7.7 Hgb 10.3 potassium improved from 3.5-3.9 magnesium 1.5-1.9 PHYSICAL EXAM: VITAL SIGNS: Reviewed GENERAL: Well-developed in no acute distress. HEENT: No sclera icterus. Extraocular movements grossly intact. Moist buccal mucosa. Head is atraumatic, normocephalic. Hears conversational speech. No nasal drainage. NECK: Supple without lymphadenopathy. CHEST: Non-labored respirations and equal bilateral excursions. CARDIOVASCULAR: Palpable 2+ radial pulses. ABDOMEN: Less distended. Diffuse tenderness. MUSCULOSKELETAL: No clubbing or cyanosis. NEUROLOGIC: No focal or lateralizing signs. Cranial nerves II through XII grossly intact. PSYCH: Appropriate affect. Alert and oriented to person, place and time. SKIN: Well perfused. Good skin turgor. ASSESSMENT: 1. Large bowel obstruction possible ileus. CT scan findings reviewed with Dr. Easton. Patient has no evidence of intussusception. 2. Hypokalemia 3. Hypomagnesemia 4. Recent bowel obstruction treated conservatively 5. History of gastritis 6. Elevated lipase with history of chronic pancreatitis 7. Severe protein calorie malnutrition PLAN: -Barium enema ordered to evaluate for volvulus -Add Toradol for pain -Add Mylicon gas drops -Continue NG tube for decompression -Encourage patient to ambulate. Okay to clamp NG tube for short periods of time -Keep patient n.p.o. -Continue IV fluids -Continue pain management -DVT prophylaxis subcu heparin Physician Vice President Fixed Income note has been reviewed by physician. Signing provider agrees with the documented findings, assessment, and plan of care. Objective - Vital Signs Vital signs: Vital Signs Temp 97.6 F 09/05/23 06:40 Pulse 55 L 09/05/23 06:40 Resp 16 09/05/23 06:40 BP 158/88 09/05/23 06:40 Pulse Ox 98 09/05/23 06:40 FiO2 Intake & Output 09/04/23 09/05/23 09/05/23 18:59 06:59 18:59 Output Total 600 Balance -600 Weight 47.627 kg Output: Urine 600 Other: Voiding Method Urinal # Voids 3 1 - Labs CBC & Chem 7: 09/05/23 05:49 09/05/23 05:49 Labs: Abnormal Lab Results - Last 24 Hours (Table) 09/05/23 09/05/23 Range/Units 05:49 05:49 RBC 4.37 L (4.40-5.60) X 10*6/uL Hgb 10.3 L (13.0-17.0) g/dL Hct 31.8 L (39.6-50.0) % MCV 72.8 L (80.0-97.0) FL MCH 23.6 L (27.0-32.0) pg RDW 15.4 H (11.5-14.5) % Lymphocytes # 0.61 L (0.90-5.00) X 10*3/uL Eosinophils # 0.01 L (0.04-0.35) X 10*3/uL Microcytosis (manual) 2+ A Acanthocytes (Spur) 2+ A Schistocytes 1+ A Carbon Dioxide 16.7 L (21.6-31.8) mmol/L Anion Gap 13.30 H (4.00-12.00) mmol/L BUN/Creatinine Ratio 23.50 H (12.00-20.00) Ratio Calcium 8.3 L (8.7-10.3) mg/dL
[2023-09-05] MEDS: SIMETHICONE 40 MG/0.6 ML DROPS 2,000 MG/30 ML BOTTLE PO SCH (16:04)
[2023-09-05 17:09] LABS: Glucose,Whole Blood 79 mg/dL (70-110)
[2023-09-05 20:20] LABS: Glucose,Whole Blood 113 mg/dL (70-110)
[2023-09-06 05:46] LABS: Glucose,Whole Blood 95 mg/dL (70-110)
[2023-09-06 08:16] LABS: ALT 9 U/L (4-49); AST 18 U/L (17-59); African American GFR (CKD) >90 (>60 ml/min/1.73 sqM); Albumin 2.3 g/dL (3.5-5.0); Alkaline Phosphatase 66 U/L (38-126); Anion Gap 8 mmol/L; Blood Urea Nitrogen 12 mg/dL (9-20); Calcium 7.9 mg/dL (8.4-10.2); Carbon Dioxide 17 mmol/L (22-30); Chloride 105 mmol/L (98-107); Globulin 2.3 g/dL; Glucose 81 mg/dL (74-99); Magnesium 1.4 mg/dL (1.6-2.3); Non-African American GFR(CKD) >90 (>60 ml/min/1.73 sqM); Potassium 3.6 mmol/L (3.5-5.1); Sodium 130 mmol/L (137-145); Total Bilirubin 0.5 mg/dL (0.2-1.3); Total Protein 4.6 g/dL (6.3-8.2)
[2023-09-06 08:19] LABS: HCT 29.6 % (39.0-53.0); MCH 24.7 pg (25.0-35.0); MCHC 32.7 g/dL (31.0-37.0); MCV 75.4 fL (80.0-100.0); Mean Platelet Volume 7.8; Microcytosis Slight; Platelet Count 266 k/uL (150-450); RBC 3.93 m/uL (4.30-5.90); RDW 15.1 % (11.5-15.5); WBC 6.6 k/uL (3.8-10.6)
[2023-09-06 08:22] LABS: HGB 9.7 gm/dL (13.0-17.5)
[2023-09-06 09:19] LABS: Glucose,Whole Blood 94 mg/dL (70-110)
--- NOTE | 2023-09-06 16:06 | P.PN ---
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 He presented to the emergency department on 09/04/2023 for reports of abdominal pain/discomfort. He underwent full evaluation in the emergency department. Upon arrival vital signs stable with blood pressure 123/86, heart rate 84, respiratory rate 16, temp 98.4 F, and SpO2 of 97% on room air. Labs completed and reviewed. CBC showing leukocytosis with WBC count of 10.7. BMP revealing hypokalemia with potassium of 2.7, hyperchloremia with chloride of 109, hypocarbia with bicarb of 21, and anion gap of 5. Blood glucose was 97. Lactic acid was elevated at 2.1. Lipase elevated at 434. Urinalysis positive for protein, ketones, and 7 RBCs but negative for infection. CT abdomen and pelvis completed showing consolidation at the right lung base suspect possible aspiration versus atelectasis, and intussusception in the left lower quadrant contributing to suspected bowel obstruction with associated fluid distended colon. NG tube was placed and x-ray was completed to confirm placement. Patien t admitted under our services for bowel intussusception with concerns of obstruction with consultation to general surgery. Physical exam: Patient seen and fully evaluated at bedside this morning. NG tube remains in place to low intermittent suction. Pt reports passing flatus but denies bowel movement as of yet. He continues to report diffuse abdominal pain/discomfort. Denies any nausea or vomiting. Vital signs reviewed and stable. General: Nontoxic, no acute distress. Emaciated, thin and frail build Derm: Skin warm and dry, normal coloration for ethnicity. Head: Atraumatic, normocephalic and symmetric. Eyes: EOMs intact, no lid lag, and anicteric sclera Mouth: no lip lesions, mucus membranes moist Cardiovascular: regular rate and rhythm with normal S1S2, no murmur, positive posterior tibial pulses bilaterally, and cap refill < 2 seconds. Lungs: Respirations even, regular, and unlabored on room air. Lungs CTA bilaterally, no rhonchi, no rales, no wheezing, and no accessory muscle usage. Abdominal: soft distended diffuse tenderness upon palpation to lower quadrants. NG tube in place. Ext: ROM intact. No gross muscle atrophy, no edema, no contractures Neuro: Speech clear, face symmetrical and CN II-XII grossly intact with no noted focal neuro deficits Psych: Alert and oriented to person, place, time, and situation. Appropriate and pleasant affect. Assessment and Plan of Care: Abdominal pain, suspected bowel intussusception and obstruction History of GERD with erosive esophagitis History of gastritis Elevated lipase with history of chronic pancreatitis Lactic acidosis, resolved High-anion gap metabolic acidosis, resolved Severe protein calorie malnutrition with BMI of 16.9 kg/m Continue NG tube to low intermittent suctioning General surgery following, reviewed documentation in chart Symptomatic care and pain management. Zofran 4 mg IVP every 8 hours as needed for nausea and/or vomiting and Dilaudid 1 mg every 3 hours as needed for pain. Continue vigorous IV fluid hydration with 0.9% normal saline at 130 cc/h. Protonix 40 mg IVP daily Strict NPO while NG tube is in place and orders placed for aspiration preca utions Patient placed on glycemic protocol with [id number] glucose checks to be completed every 6 hours while NPO Consult placed to dietitian secondary to severe protein calorie malnutrition with BMI of 16.9 kg/m Right lung base consolidation, suspect aspiration versus atelectasis -Patient denies shortness of breath, cough, or congestion. Does report recent episodes of vomiting which is likely cause of possible aspiration. SPO2 98% on room air. Will continue to monitor. -Will consult speech and language pathology for swallow evaluation once NG tube is removed and testing can be completed. -Aspiration precautions are in place. Hypomagnesemia -Magnesium 1.4 this morning. Orders placed for magnesium sulfate 3 g IVPB. -Will continue to monitor for resolution with repeat morning magnesium levels. History of pulmonary emboli -Patient was undergoing cancer treatments during this time, considered provoked PE. -DVT prophylaxis with heparin 5000 units subcutaneously every 8 hours. Hypokalemia, resolved Data reviewed: Labs completed and reviewed. CBC showing microcytic anemia with hemoglobin of 9.7. BMP showing hyponatremia with sodium of 130, hypocarbia with bicarb of 17, normal chloride of 105 and normal anion gap of 8. Magnesium was low at 1.4 this morning. Liver profile normal findings. Vital signs were reviewed. Blood pressure 136/86, heart rate 55, respiratory rate 18, temp 98.4 F, and SpO2 of 100% on room air. CODE STATUS: Full code DVT prophylaxis: Heparin Anticipated discharge date: Clinical course to determine Anticipated discharge place: Clinical course to determine Patient was seen independently by Nurse Pracitioner. This document was prepared using [employer] software. Please allow for errors in boxing and pressing supervisor, while rare they do occur I reviewed the documentation as provided by the CATRINA above, who is the original author of this note. I agree with the documented assessment and plan, with the following changes: none I reviewed the documentation as provided by the CATRINA above, who is the original author of this note. I agree with the documented assessment and plan, with the following changes: none Objective - Vital Signs Vital signs: Vital Signs Temp 98.6 F 09/06/23 14:05 Pulse 76 09/06/23 14:05 Resp 17 09/06/23 14:05 BP 140/84 09/06/23 14:05 Pulse Ox 97 09/06/23 14:05 FiO2 Intake & Output 09/05/23 09/06/23 09/06/23 18:59 06:59 18:59 Intake Total 500 Output Total 1900 850 450 Balance -1900 -850 50 Weight 47.627 kg Intake: Oral 500 Output: Gastric Drainage 50 Urine 1900 850 400 Other: Voiding Method Urinal Urinal - Labs CBC & Chem 7: 09/08/23 05:47 09/08/23 05:47 Labs: Abnormal Lab Results - Last 24 Hours (Table) 09/05/23 09/06/23 09/06/23 Range/Units 20:19 06:51 06:51 RBC 3.93 L (4.30-5.90) m/uL Hgb 9.7 L D (13.0-17.5) gm/dL Hct 29.6 L (39.0-53.0) % MCV 75.4 L (80.0-100.0) fL MCH 24.7 L (25.0-35.0) pg Sodium 130 L (137-145) mmol/L Carbon Dioxide 17 L (22-30) mmol/L Creatinine 0.45 L (0.66-1.25) mg/dL POC Glucose (mg/dL) 113 H (70-110) mg/dL Calcium 7.9 L (8.4-10.2) mg/dL Magnesium 1.4 L (1.6-2.3) mg/dL Total Protein 4.6 L (6.3-8.2) g/dL Albumin 2.3 L (3.5-5.0) g/dL
[2023-09-06 16:11] LABS: Glucose,Whole Blood 81 mg/dL (70-110)
--- NOTE | 2023-09-06 16:44 | XR ---
EXAMINATION TYPE: XR chest 1V DATE OF EXAM: 09/06/2023 CLINICAL HISTORY: NG tube placement. TECHNIQUE: 2 frontal views of the chest are obtained. COMPARISON: Chest x-ray from 2 days earlier FINDINGS: Stable right subclavian Mediport catheter. Nasogastric tube redemonstrated projecting belo w diaphragm. Free air is now seen. Increasing right basilar opacity noted. Left lung is clear. Cardia c size stable and within normal limits. Osseous structures are intact. Contrast from recent enema mariana dy noted filling the colon. IMPRESSION: As above. New Free air is noted. Correlate clinically for recent surgery otherwise urgen t surgical evaluation is warranted. A Red level critical message alert has been initiated for Ronal Smith MD via the [employer] Critical Results System on 09/06/2023 4:41 PM. This message alert has been sent to Ronal Smith MD via the preferences provided by the clinician for the receipt of Radiology Critical Findings. [facility] [id number].
--- NOTE | 2023-09-06 17:02 | P.PN ---
Progress Note - Text Progress Note Date: 09/06/23 Recieved red level notification of new free air noted on chest x-ray for ve rification of NG tube placement for SBO. Went to bedside to assess pt, Pt with significant tenderness to abdomen. Notified Dr. Zimmer of [place] finding and he also went to bedside to assess and taking pt to OR. I reviewed the documentation as provided by the CATRINA above, who is the original author of this note. I agree with the documented assessment and plan, with the following changes: none
[2023-09-06] MEDS: MAGNESIUM SULFATE-D5W PMX 1 GM in DEXTROSE/WATER 1 100ML.BAG IVPB SCH (17:24)
--- NOTE | 2023-09-06 17:33 | P.PN ---
Progress Note - Text the patient is is with abdominal pain and a distended colon. He had a barium enema exam the other day and narrowing the mid sigmoid was noted. He had a chest film today for NG placement and free air was noted. He is tender on exam. Urgent surgery is recommended for a perforated viscus. We discussed the possibility of a stoma. He provides consent.
[2023-09-06] MEDS: SODIUM CHLORIDE 0.9% 250 ML IV ONE (17:45)
[2023-09-06] MEDS: ONDANSETRON 4 MG/2 ML VIAL IVP ONE (17:51)
[2023-09-06] MEDS: DEXAMETHASONE SOD PHOSPHATE 4 MG/ML 1 ML VIAL IVP ONE (17:52)
[2023-09-06] MEDS ORDERED: LIDOCAINE 1% INJ 10MG/ML (20 ML MDV) ONE (17:58)
[2023-09-06] MEDS ORDERED: PROPOFOL 10 MG/ML 20 ML VIAL IV ONE (17:58)
[2023-09-06] MEDS ORDERED: GLYCOPYRROLATE 0.2 MG/ML 2 ML VIAL ONE (17:58)
[2023-09-06] MEDS ORDERED: ROCURONIUM 10 MG/ML (5 ML VIAL) IV ONE (17:58)
[2023-09-06] MEDS ORDERED: SUCCINYLCHOLINE CHLORIDE 200 MG/10 ML VIAL IV ONE (17:58)
[2023-09-06] MEDS ORDERED: MIDAZOLAM 2 MG/2 ML VIAL ONE (17:58)
[2023-09-06] MEDS ORDERED: fentaNYL (PF) 50 MCG/ML 2 ML AMP ONE (17:58)
[2023-09-06] MEDS ORDERED: NEOSTIGMINE 1 MG/ML 10 ML VIAL ONE (17:58)
[2023-09-06] MEDS: metroNIDAZOLE-NS PMX 500 MG/100 ML BAG IVPB ONE (18:15)
[2023-09-06] MEDS: LACTATED RINGERS 1,000 ML IV ONE ×3 (18:25→21:05)
[2023-09-06] MEDS: PIPERACILLIN-TAZOBACTAM 3.375 GM in SODIUM CHLORIDE 0.9% 100 ML IVPB STA (18:30)
[2023-09-06] MEDS: LIDOCAINE 1% INJ 10MG/ML (20 ML MDV) SQ ONE (20:25)
[2023-09-06] MEDS: BUPIVACAINE (PF) 0.5% 30 ML VIAL SQ ONE (20:25)
[2023-09-06 20:57] LABS: Glucose,Whole Blood 99 mg/dL (70-110)
--- NOTE | 2023-09-06 21:48 | P.OP ---
Date of Procedure: 09/06/23 Preoperative Diagnosis: Perforated viscus Postoperative Diagnosis: Perforation of proximal small bowel Procedure(s) Performed: Small bowel resection and side to side duodenojejunostomy Surgeon: Ashu Zimmer Estimated Blood Loss (ml): 50 Pathology: other (small bowel resection and peritoneal cultures) Condition: stable Disposition: floor Indications for Procedure: A KUB was taken to confirm NG placement and free air was identified. I saw the patient in consultation, confirmed the findings and recommended surgery. Operative Findings: After the patient was given an adequate general endotracheal anesthetic, he was prepped and draped in a sterile fashion. A midline laparotomy was performed. Green purulent fluid was found in the pelvis, RUQ, and LUQ. Cultures were obtained. No colon perforation or peptic ulcer perforation was identified. Exudate was identified below the transverse mesocolon in the LUQ. Examining the proximal small bowel at the ligament of Treitz identified an area of firm small bowel with a perforation. The induration of the bowel in this area was not s uitable for an oversew. About 4 inches of the inflamed proximal small bowel containing the perforation site was resected with the proximal end of the resection at the Ligament of Treitz. Due to the inflammatory reaction in the area, I chose to place the anastomosis in an area spared of inflammatory reaction at the second portion of the duodenum. An extensive Leyla maneuver was performed. The free end of the divided small bowel was brought in a retrocolic fashion through the transverse mesocolon to allow for a tension free side to side duodenojejunostomy. A two layer handsewn anastomosis with 3-0 Vicryl was performed. The abdomen was irrigated again and then a JVac drain was placed in the right and left colonic gutter with the end of each drain in the pelvis. The abdomen was closed with a running #1 PDS suture. Due to the contaminated nature of this case. The skin edges were loosely approximated with 3-0 Vicryl. An absorbent dressing was placed. The patient tolerated the procedure well an was taken to PACU in satisfactory condition. The operative note has been typed in the section "operative findings" Description of Procedure: Operative findings: Peritonitis, proximal small bowel perforation. The typed description of the procedure is under the heading "operative findings"
[2023-09-06] MEDS: metroNIDAZOLE-NS PMX 500 MG in SALINE 1 100ML.BAG IVPB STA (23:15)
[2023-09-07] MEDS: PIPERACILLIN-TAZOBACTAM 3.375 GM in SODIUM CHLORIDE 0.9% 100 ML IVPB SCH (00:04)
[2023-09-07 01:41] LABS: Glucose,Whole Blood 139 mg/dL (70-110)
[2023-09-07] MEDS: SODIUM CHLORIDE 0.9% 500 ML 500 ML IV ONE (04:30)
[2023-09-07 05:51] LABS: ALT 9 U/L (4-49); AST 20 U/L (17-59); African American GFR (CKD) >90 (>60 ml/min/1.73 sqM); Albumin 1.9 g/dL (3.5-5.0); Alkaline Phosphatase 55 U/L (38-126); Anion Gap 8 mmol/L; Blood Urea Nitrogen 13 mg/dL (9-20); Calcium 7.2 mg/dL (8.4-10.2); Carbon Dioxide 15 mmol/L (22-30); Chloride 107 mmol/L (98-107); Glucose 123 mg/dL (74-99); Magnesium 1.9 mg/dL (1.6-2.3); Non-African American GFR(CKD) >90 (>60 ml/min/1.73 sqM); Potassium 3.7 mmol/L (3.5-5.1); Sodium 130 mmol/L (137-145); Total Bilirubin 0.5 mg/dL (0.2-1.3); Total Protein 3.9 g/dL (6.3-8.2)
[2023-09-07 05:53] LABS: Basophils % (A) 0 %; Eosinophils % (A) 0 %; HCT 27.8 % (39.0-53.0); HGB 8.8 gm/dL (13.0-17.5); Hypochromasia Slight; Lymphocytes # (A) 0.2 k/uL (1.0-4.8); Lymphocytes % (A) 3 %; MCH 24.3 pg (25.0-35.0); MCHC 31.9 g/dL (31.0-37.0); MCV 76.4 fL (80.0-100.0); Mean Platelet Volume 7.9; Microcytosis Slight; Monocytes # (A) 0.3 k/uL (0-1.0); Monocytes % (A) 3 %; Neutrophils # (A) 7.8 k/uL (1.3-7.7); Neutrophils % (A) 94 %; Platelet Count 314 k/uL (150-450); RBC 3.63 m/uL (4.30-5.90); RDW 15.2 % (11.5-15.5); WBC 8.3 k/uL (3.8-10.6)
[2023-09-07] MEDS ORDERED: ACETAMINOPHEN IV (For NPO) 1,000 MG in EMPTY BAG 1 BAG IVPB SCH (06:00)
[2023-09-07 06:21] LABS: Glucose,Whole Blood 150 mg/dL (70-110)
[2023-09-07] MEDS: ACETAMINOPHEN IV (For NPO) 700 MG in EMPTY BAG 1 BAG IVPB SCH (06:49)
[2023-09-07] MEDS ORDERED: HYDROmorphone 0.5 MG/0.5 ML SYRINGE IVP PRN (07:00)
[2023-09-07 11:23] LABS: Glucose,Whole Blood 140 mg/dL (70-110)
[2023-09-07 13:06] LABS: Basophils % (A) 0 %; Eosinophils % (A) 1 %; HCT 21.7 % (39.0-53.0); Lymphocytes # (A) 0.4 k/uL (1.0-4.8); Lymphocytes % (A) 6 %; MCH 24.4 pg (25.0-35.0); MCHC 32.5 g/dL (31.0-37.0); MCV 75.1 fL (80.0-100.0); Mean Platelet Volume 8.4; Microcytosis Slight; Monocytes # (A) 0.3 k/uL (0-1.0); Monocytes % (A) 5 %; Neutrophils # (A) 5.2 k/uL (1.3-7.7); Neutrophils % (A) 86 %; Platelet Count 248 k/uL (150-450); RBC 2.89 m/uL (4.30-5.90); RDW 15.2 % (11.5-15.5); WBC 6.1 k/uL (3.8-10.6)
[2023-09-07 13:18] LABS: HGB 7.1 gm/dL (13.0-17.5)
--- NOTE | 2023-09-07 14:53 | P.PN ---
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 He presented to the emergency department on 09/04/2023 for reports of abdominal pain/discomfort. He underwent full evaluation in the emergency department. Upon arrival vital signs stable with blood pressure 123/86, heart rate 84, respiratory rate 16, temp 98.4 F, and SpO2 of 97% on room air. Labs completed and reviewed. CBC showing leukocytosis with WBC count of 10.7. BMP revealing hypokalemia with potassium of 2.7, hyperchloremia with chloride of 109, hypocarbia with bicarb of 21, and anion gap of 5. Blood glucose was 97. Lactic acid was elevated at 2.1. Lipase elevated at 434. Urinalysis positive for protein, ketones, and 7 RBCs but negative for infection. CT abdomen and pelvis completed showing consolidation at the right lung base suspect possible aspiration versus atelectasis, and intussusception in the left lower quadrant contributing to suspected bowel obstruction with associated fluid distended colon. NG tube was placed and x-ray was completed to confirm placement. Patien t admitted under our services for bowel intussusception with concerns of obstruction with consultation to general surgery. Physical exam: Patient seen and fully evaluated at bedside this morning. He reports 7 out of 10 postsurgical pain at this time. Postsurgical dressing and abdominal binder in place. DEBORA drain with bloody serosanguineous drainage in collection chamber. Patient denies having any nausea or vomiting. NG in place to low intermittent suction. Vital signs reviewed and stable. General: Nontoxic, no acute distress. Emaciated, thin and frail build Derm: Skin warm and dry, normal coloration for ethnicity. Head: Atraumatic, normocephalic and symmetric. Eyes: EOMs intact, no lid lag, and anicteric sclera Mouth: no lip lesions, mucus membranes moist Cardiovascular: regular rate and rhythm with normal S1S2, no murmur, positive po sterior tibial pulses bilaterally, and cap refill < 2 seconds. Lungs: Respirations even, regular, and unlabored on room air. Lungs CTA bilaterally, no rhonchi, no rales, no wheezing, and no accessory muscle usage. Abdominal: soft distended diffuse tenderness upon palpation to lower quadrants. NG tube in place. Ext: ROM intact. No gross muscle atrophy, no edema, no contractures Neuro: Speech clear, face symmetrical and CN II-XII grossly intact with no noted focal neuro deficits Psych: Alert and oriented to person, place, time, and situation. Appropriate and pleasant affect. Assessment and Plan of Care: Peritonitis with small bowel perforation status post emergent small bowel resection with [id number] duodenojejunostomy Acute postsurgical blood loss anemia Hyponatremia History of GERD with erosive esophagitis History of gastritis Elevated lipase with history of chronic pancreatitis Lactic acidosis, resolved High-anion gap metabolic acidosis, resolved Severe protein calorie malnutrition with BMI of 16.9 kg/m Patient to continue IV antibiotics with Zosyn 3.375 g every 8 hours Preoperative hemoglobin 9.7 postoperative hemoglobin 7.1. Cultures were obtained during surgical procedure and sent to lab for analysis, will follow-up with these results Continue NG tube to low intermittent suctioning General surgery following, reviewed documentation in chart Symptomatic care and pain management. Zofran 4 mg IVP every 8 hours as needed for nausea and/or vomiting and Dilaudid 1 mg every 3 hours as needed for pain. Continue vigorous IV fluid hydration with 0.9% normal saline at 130 cc/h. Protonix 40 mg IVP daily Strict NPO while NG tube is in place and orders placed for aspiration pre cautions Continue glycemic protocol with [id number] glucose checks to be completed every 6 hours while NPO Consult placed to dietitian secondary to severe protein calorie malnutrition with BMI of 16.9 kg/m Right lung base consolidation, suspect aspiration versus atelectasis -Patient denies shortness of breath, cough, or congestion. Does report recent episodes of vomiting which is likely cause of possible aspiration. SPO2 98% on room air. Will continue to monitor. -Will consult speech and language pathology for swallow evaluation once NG tube is removed and testing can be completed. -Aspiration precautions are in place. Hypomagnesemia, resolved History of pulmonary emboli -Patient was undergoing cancer treatments during this time, considered provoked PE. -DVT prophylaxis with heparin 5000 units subcutaneously every 8 hours. Hypokalemia, resolved Data reviewed: Labs completed and reviewed. CBC showing microcytic anemia with hemoglobin of 8.8. BMP showing mild hyponatremia with sodium of 130 and hypocarbia with bicarb of 15. Magnesium normal findings at 1.9. Liver profile also normal findings. Vital signs were reviewed. Blood pressure 136/86, heart rate 55, respiratory rate 18, temp 98.4 F, and SpO2 of 100% on room air. CODE STATUS: Full code DVT prophylaxis: Heparin Anticipated discharge date: Clinical course to determine Anticipated discharge place: Clinical course to determine Patient was seen independently by Nurse Pracitioner. This document was prepared using [employer] dictation software. Please allow for errors in stage electrician helper, while rare they do occur Edin Davalos NP rendered care for this patient independently, reviewed the findings and plan as documented in the note above. I did not physically speak with or examine the patient on this date. Objective - Vital Signs Vital signs: Vital Signs Temp 98.4 F 09/07/23 07:37 Pulse 80 09/07/23 07:37 Resp 17 09/07/23 07:37 BP 105/75 09/07/23 07:37 Pulse Ox 100 09/07/23 09:06 FiO2 Intake & Output 09/06/23 09/07/23 09/07/23 18:59 06:59 18:59 Intake Total 1860 1400 Output Total 850 640 660 Balance 1010 760 -660 Weight 47.627 kg Intake: IV 1360 1400 Oral 500 Output: Gastric Drainage 50 Drainage 660 Left Abdomen 350 Right Abdomen 310 Urine 800 550 Estimated Blood Loss 90 Other: Voiding Method Urinal Indwelling Catheter - Labs CBC & Chem 7: 09/07/23 12:35 09/07/23 05:00 Labs: Abnormal Lab Results - Last 24 Hours (Table) 09/07/23 09/07/23 09/07/23 Range/Units 01:40 04:44 05:00 RBC 3.63 L (4.30-5.90) m/uL Hgb 8.8 L (13.0-17.5) gm/dL Hct 27.8 L (39.0-53.0) % MCV 76.4 L (80.0-100.0) fL MCH 24.3 L (25.0-35.0) pg Neutrophils # 7.8 H (1.3-7.7) k/uL Lymphocytes # 0.2 L (1.0-4.8) k/uL Sodium 130 L (137-145) mmol/L Carbon Dioxide 15 L (22-30) mmol/L Creatinine 0.55 L (0.66-1.25) mg/dL Glucose 123 H (74-99) mg/dL POC Glucose (mg/dL) 139 H (70-110) mg/dL Calcium 7.2 L (8.4-10.2) mg/dL Total Protein 3.9 L (6.3-8.2) g/dL Albumin 1.9 L (3.5-5.0) g/dL 09/07/23 Range/Units 06:19 RBC (4.30-5.90) m/uL Hgb (13.0-17.5) gm/dL Hct (39.0-53.0) % MCV (80.0-100.0) fL MCH (25.0-35.0) pg Neutrophils # (1.3-7.7) k/uL Lymphocytes # (1.0-4.8) k/uL Sodium (137-145) mmol/L Carbon Dioxide (22-30) mmol/L Creatinine (0.66-1.25) mg/dL Glucose (74-99) mg/dL POC Glucose (mg/dL) 150 H (70-110) mg/dL Calcium (8.4-10.2) mg/dL Total Protein (6.3-8.2) g/dL Albumin (3.5-5.0) g/dL
[2023-09-07 16:30] LABS: Glucose,Whole Blood 123 mg/dL (70-110)
[2023-09-07 18:37] LABS: Basophils % (A) 0 %; Eosinophils % (A) 0 %; HCT 21.4 % (39.0-53.0); Hypochromasia Slight; Lymphocytes # (A) 0.4 k/uL (1.0-4.8); Lymphocytes % (A) 8 %; MCH 24.6 pg (25.0-35.0); MCHC 32.1 g/dL (31.0-37.0); MCV 76.9 fL (80.0-100.0); Mean Platelet Volume 7.5; Microcytosis Slight; Monocytes # (A) 0.3 k/uL (0-1.0); Monocytes % (A) 5 %; Neutrophils # (A) 4.8 k/uL (1.3-7.7); Neutrophils % (A) 86 %; Platelet Count 267 k/uL (150-450); RBC 2.79 m/uL (4.30-5.90); RDW 15.2 % (11.5-15.5); WBC 5.6 k/uL (3.8-10.6)
[2023-09-07 18:51] LABS: HGB 6.9 gm/dL (13.0-17.5)
[2023-09-07 20:56] LABS: Glucose,Whole Blood 119 mg/dL (70-110)
[2023-09-08 01:21] LABS: Glucose,Whole Blood 114 mg/dL (70-110)
[2023-09-08 02:09] LABS: Basophils % (A) 0 %; Eosinophils # (A) 0.1 k/uL (0-0.7); Eosinophils % (A) 1 %; HCT 26.7 % (39.0-53.0); Lymphocytes # (A) 0.5 k/uL (1.0-4.8); Lymphocytes % (A) 7 %; MCH 25.6 pg (25.0-35.0); MCHC 32.6 g/dL (31.0-37.0); MCV 78.5 fL (80.0-100.0); Mean Platelet Volume 7.8; Monocytes # (A) 0.4 k/uL (0-1.0); Monocytes % (A) 5 %; Neutrophils # (A) 6.3 k/uL (1.3-7.7); Neutrophils % (A) 87 %; Platelet Count 206 k/uL (150-450); Poikilocytosis Slight; RDW 15.4 % (11.5-15.5); WBC 7.3 k/uL (3.8-10.6)
[2023-09-08 02:12] LABS: HGB 8.7 gm/dL (13.0-17.5)
[2023-09-08 02:20] LABS: African American GFR (CKD) >90 (>60 ml/min/1.73 sqM); Anion Gap 1 mmol/L; Blood Urea Nitrogen 17 mg/dL (9-20); Calcium 7.3 mg/dL (8.4-10.2); Carbon Dioxide 20 mmol/L (22-30); Chloride 111 mmol/L (98-107); Glucose 93 mg/dL (74-99); Non-African American GFR(CKD) >90 (>60 ml/min/1.73 sqM); Potassium 4.3 mmol/L (3.5-5.1); Sodium 132 mmol/L (137-145)
[2023-09-08 06:53] LABS: Glucose,Whole Blood 109 mg/dL (70-110)
[2023-09-08 08:31] LABS: HCT 25.2 % (39.6-50.0); HGB 8.5 g/dL (13.0-17.0); MCH 25.6 pg (27.0-32.0); MCHC 33.7 g/dL (32.0-37.0); MCV 75.9 FL (80.0-97.0); Mean Platelet Volume 10.1 FL (9.5-12.2); NRBC Per 100 WBC 0 X 10*3/uL (0.00-0.01); Platelet Count 256 X 10*3/uL (140-440); RBC 3.32 X 10*6/uL (4.40-5.60); RDW 15.9 % (11.5-14.5); WBC 8.23 X 10*3/uL (4.50-10.00)
[2023-09-08 08:47] LABS: ALT 8 U/L (10-49); AST 14 U/L (14-35); Albumin 2.4 g/dL (3.8-4.9); Albumin/Globulin Ratio 1.41 Ratio (1.60-3.17); Alkaline Phosphatase 44 U/L (41-126); BUN/Creat Ratio 27.17 Ratio (12.00-20.00); Blood Urea Nitrogen 16.3 mg/dL (9.0-27.0); Calcium 7.9 mg/dL (8.7-10.3); Carbon Dioxide 19.8 mmol/L (21.6-31.8); Chloride 105 mmol/L (96-109); Globulin 1.7 g/dL (1.6-3.3); Glucose 93 mg/dL (70-110); Magnesium 1.9 mg/dL (1.5-2.4); Potassium 3.8 mmol/L (3.5-5.5); Sodium 137 mmol/L (135-145); Total Bilirubin 0.4 mg/dL (0.3-1.2); Total Protein 4.1 g/dL (6.2-8.2)
[2023-09-08 11:57] LABS: Glucose,Whole Blood 98 mg/dL (70-110)
[2023-09-08 16:02] LABS: HCT 27.2 % (39.0-53.0); HGB 8.7 gm/dL (13.0-17.5); Hypochromasia Slight; MCH 25.7 pg (25.0-35.0); MCHC 31.9 g/dL (31.0-37.0); MCV 80.4 fL (80.0-100.0); Mean Platelet Volume 7.9; Platelet Count 263 k/uL (150-450); Poikilocytosis Slight; RBC 3.38 m/uL (4.30-5.90); RDW 15.6 % (11.5-15.5); WBC 7.8 k/uL (3.8-10.6)
--- NOTE | 2023-09-08 17:03 | P.PN ---
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 He presented to the emergency department on 09/04/2023 for reports of abdominal pain/discomfort. He underwent full evaluation in the emergency department. Upon arrival vital signs stable with blood pressure 123/86, heart rate 84, respiratory rate 16, temp 98.4 F, and SpO2 of 97% on room air. Labs completed and reviewed. CBC showing leukocytosis with WBC count of 10.7. BMP revealing hypokalemia with potassium of 2.7, hyperchloremia with chloride of 109, hypocarbia with bicarb of 21, and anion gap of 5. Blood glucose was 97. Lactic acid was elevated at 2.1. Lipase elevated at 434. Urinalysis positive for protein, ketones, and 7 RBCs but negative for infection. CT abdomen and pelvis completed showing consolidation at the right lung base suspect possible aspiration versus atelectasis, and intussusception in the left lower quadrant contributing to suspected bowel obstruction with associated fluid distended colon. NG tube was placed and x-ray was completed to confirm placement. Patien t admitted under our services for bowel intussusception with concerns of obstruction with consultation to general surgery. Initially small bowel obstruction was being managed conservatively with NG tube and IV fluid hydration for bowel rest. On 09/06/2023 patient accidentally pulled NG tube resulting in need for replacement and follow-up x-ray revealed free air in abdomen. General surgery was notified immediately. Patient was taken to the OR and found to have peritonitis with small bowel perforation and underwent emergent small bowel resection with [id number] duodenaljejunostomy. Physical exam: Patient is postoperative day 2. NG tube remains in place to lower remittent suction. Patient reports continued moderate postoperative pain. Abdominal surgical dressing and abdominal binder in place. Patient denies having any nausea or vomiting. Vital signs reviewed and stable. General: Nontoxic, no acute distress. Emaciated, thin and frail build Derm: Skin warm and dry, normal coloration for ethnicity. Head: Atraumatic, normocephalic and symmetric. Eyes: EOMs intact, no lid lag, and anicteric sclera Mouth: no lip lesions, mucus membranes moist Cardiovascular: regular rate and rhythm with normal S1S2, no murmur, positive posterior tibial pulses bilaterally, and cap refill < 2 seconds. Lungs: Respirations even, regular, and unlabored on room air. Lungs CTA bilaterally, no rhonchi, no rales, no wheezing, and no accessory muscle usage. Abdominal: soft distended diffuse tenderness upon palpation to lower quadrants. NG tube in place. Postsurgical dressing and abdominal binder in place. DEBORA drain in place. Ext: ROM intact. No gross muscle atrophy, no edema, no contractures Neuro: Speech clear, face symmetrical and CN II-XII grossly intact with no noted focal neuro deficits Psych: Alert and oriented to person, place, time, and situation. Appropriate and pleasant affect. Assessment and Plan of Care: Peritonitis with small bowel perforation status post emergent small bowel resection with [id number] duodenojejunostomy Acute postsurgical blood loss anemia, status posttransfusion 1 unit PRBCs Hyponatremia History of GERD with erosive esophagitis History of gastritis Elevated lipase with history of chronic pancreatitis Lactic acidosis, resolved High-anion gap metabolic acidosis, resolved Severe protein calorie malnutrition with BMI of 16.9 kg/m Patient to continue IV antibiotics with Zosyn 3.375 g every 8 hours Postoperative hemoglobin dropping to 6.9, order was placed for 1 unit PRBCs. Currently hemoglobin stable at 8.5. Cultures were obtained during surgical procedure and sent to lab for analysis, will follow-up with these results Continue NG tube to low intermittent suctioning General surgery following, reviewed documentation in chart Symptomatic care and pain management. Zofran 4 mg IVP every 8 hours as needed for nausea and/or vomiting and Dilaudid 1 mg every 3 hours as needed for pain. Continue IV fluid hydration with 0.9% normal saline at 130 cc/h. Order placed for PICC line and consult to dietitian for TPN Continue Protonix 40 mg IVP daily Strict NPO while NG tube is in place and orders placed for aspiration precautions Continue glycemic protocol with [id number] glucose checks to be completed every 6 hours while NPO Right lung base consolidation, suspect aspiration versus atelectasis -Patient denies shortness of breath, cough, or congestion. Does report recent episodes of vomiting which is likely cause of possible aspiration. SPO2 98% on room air. Will continue to monitor. -Will consult speech and language pathology for swallow evaluation once NG tube is removed and testing can be completed. -Aspiration precautions are in place. Hypomagnesemia, resolved History of pulmonary emboli -Patient was undergoing cancer treatments during this time, considered provoked PE. -DVT prophylaxis with heparin 5000 units subcutaneously every 8 hours. Hypokalemia, resolved Data reviewed: Documented urinary output over the past 24 hours is 1350 cc. Labs completed and reviewed. CBC showing hemoglobin stable status posttransfusion of 1 unit PRBCs with hemoglobin of 8.5. BMP showing mild high anion gap metabolic acidosis with chloride of 105, bicarb of 19.8, and anion gap of 12.20. Magnesium normal findings at 1.9. Liver profile showing no sig nificant abnormalities. Vital signs were reviewed. Blood pressure 105/68, heart rate 49, respiratory rate 19, temp 97.9 F, SpO2 of 96% on room air. CODE STATUS: Full code DVT prophylaxis: Heparin Anticipated discharge date: Clinical course to determine Anticipated discharge place: Clinical course to determine Patient was seen independently by Nurse Pracitioner. This document was prepared using [employer] dictation software. Please allow for errors in metal fabricating inspector, while rare they do occur I reviewed the documentation as provided by the CATRINA above, who is the original author of this note. I agree with the documented assessment and plan, with the following changes: none Objective - Vital Signs Vital signs: Vital Signs Temp 97.9 F 09/08/23 08:00 Pulse 49 L 09/08/23 08:00 Resp 19 09/08/23 08:00 BP 105/68 09/08/23 08:00 Pulse Ox 96 09/08/23 08:00 FiO2 Intake & Output 09/07/23 09/08/23 09/08/23 18:59 06:59 18:59 Intake Total 1560 310 Output Total 1150 930 Balance 410 -620 Intake: IV 1560 Sodium Chloride 0.9% 1, 1560 000 ml @ 130 mls/hr IV . [id number] [facility] Rx#:[id number] Blood Product 310 Rc As-1 Unit 310 [id number] Output: Gastric Drainage 700 Drainage 880 230 Left Abdomen 400 0 Right Abdomen 480 230 Urine 220 Uretheral (Sandoval) 220 Emesis 50 Other: Voiding Method Indwelling Catheter Indwelling Catheter - Labs CBC & Chem 7: 09/08/23 15:23 09/08/23 05:47 Labs: Abnormal Lab Results - Last 24 Hours (Table) 09/07/23 09/07/23 09/07/23 Range/Units 11:22 12:35 16:29 RBC 2.89 L (4.30-5.90) m/uL Hgb 7.1 L D (13.0-17.5) gm/dL Hct 21.7 L (39.0-53.0) % MCV 75.1 L (80.0-100.0) fL MCH 24.4 L (25.0-35.0) pg RDW (11.5-14.5) % Lymphocytes # 0.4 L (1.0-4.8) k/uL Sodium (137-145) mmol/L Chloride (98-107) mmol/L Carbon Dioxide (22-30) mmol/L Creatinine (0.66-1.25) mg/dL POC Glucose (mg/dL) 140 H 123 H (70-110) mg/dL Calcium (8.4-10.2) mg/dL Crossmatch 09/07/23 09/07/23 09/07/23 Range/Units 18:09 19:14 20:54 RBC 2.79 L (4.30-5.90) m/uL Hgb 6.9 L* (13.0-17.5) gm/dL Hct 21.4 L (39.0-53.0) % MCV 76.9 L (80.0-100.0) fL MCH 24.6 L (25.0-35.0) pg RDW (11.5-14.5) % Lymphocytes # 0.4 L (1.0-4.8) k/uL Sodium (137-145) mmol/L Chloride (98-107) mmol/L Carbon Dioxide (22-30) mmol/L Creatinine (0.66-1.25) mg/dL POC Glucose (mg/dL) 119 H (70-110) mg/dL Calcium (8.4-10.2) mg/dL Crossmatch See Detail 09/08/23 09/08/23 09/08/23 Range/Units 01:20 01:49 01:49 RBC 3.40 L (4.30-5.90) m/uL Hgb 8.7 L D (13.0-17.5) gm/dL Hct 26.7 L (39.0-53.0) % MCV 78.5 L (80.0-100.0) fL MCH (25.0-35.0) pg RDW (11.5-14.5) % Lymphocytes # 0.5 L (1.0-4.8) k/uL Sodium 132 L (137-145) mmol/L Chloride 111 H (98-107) mmol/L Carbon Dioxide 20 L (22-30) mmol/L Creatinine 0.62 L (0.66-1.25) mg/dL POC Glucose (mg/dL) 114 H (70-110) mg/dL Calcium 7.3 L (8.4-10.2) mg/dL Crossmatch 09/08/23 Range/Units 05:47 RBC 3.32 L (4.30-5.90) m/uL Hgb 8.5 L (13.0-17.5) gm/dL Hct 25.2 L (39.0-53.0) % MCV 75.9 L (80.0-100.0) fL MCH 25.6 L (25.0-35.0) pg RDW 15.9 H (11.5-14.5) % Lymphocytes # (1.0-4.8) k/uL Sodium (137-145) mmol/L Chloride (98-107) mmol/L Carbon Dioxide (22-30) mmol/L Creatinine (0.66-1.25) mg/dL POC Glucose (mg/dL) (70-110) mg/dL Calcium (8.4-10.2) mg/dL Crossmatch Microbiology - Last 24 Hours (Table) 09/06/23 20:25 Gram Stain - Preliminary Other - Other Wound Culture - Preliminary
[2023-09-08 17:13] LABS: Glucose,Whole Blood 93 mg/dL (70-110)
--- NOTE | 2023-09-08 20:24 | P.PN ---
Subjective Progress Note Date: 09/08/23 CHIEF COMPLAINT: Small bowel perforation HISTORY OF PRESENT ILLNESS: The patient is a 42-year-old male admitted with abdominal pain. He is status post exploratory laparotomy including small bowel resection for small bowel perforation. He reports he is passing flatus. He reports primarily incisional pain. He is concerned why he had surgery. He has a nasogastric tube including DEBORA drains. He reports hunger and wants food. ROS: No reports of nausea and vomiting. No bowel movements. No fevers or chills. No new chest pain. No productive sputum. Underweight, BMI 16.9 PHYSICAL EXAM: VITAL SIGNS: Reviewed CONSTITUTIONAL: Well developed and in no acute distress. EYES: Conjuctivae without sclera icterus. Extraocular movements grossly intact. HEAD, EARS, NOSE, THROAT: Moist buccal mucosa. Head is atraumatic, normocephalic. Hears conversational speech. No nasal drainage. RESPIRATORY: Non-labored respirations and equal bilateral excursions. CARDIOVASCULAR: Palpable 2+ radial pulses. ABDOMEN: Midline incision dressing intact. DEBORA serosanguineous x 2. MUSCULOSKELETAL: No gross deformity of the lower extremities noted. No clubbing. No cyanosis. SKIN: Good skin turgor. Well perfused. NEUROLOGIC: Cranial nerves II through XII grossly intact. No focal or lateralizing signs. PSYCH: Appropriate affect. Alert and oriented to person, place and time. CLINICAL LABS: Reviewed. WBC within normal limits ASSESSMENT: 1. Small bowel perforation 2. Underweight, BMI 16.9 3. Prolonged n.p.o. status 4. Inadequate protein intake PLAN: 1. He is underweight with BMI 16.9 and prolonged n.p.o. status. Recommend TPN and PICC line. 2. May need small bowel follow-through after adequate postoperative time. 3. Await cultures 4. Consult infectious disease for antibiotic management. Objective - Vital Signs Vital signs: Vital Signs Temp 97.9 F 09/08/23 13:45 Pulse 53 L 09/08/23 13:45 Resp 18 09/08/23 13:45 BP 133/84 09/08/23 13:45 Pulse Ox 99 09/08/23 13:45 FiO2 Intake & Output 09/08/23 09/08/23 09/09/23 06:59 18:59 06:59 Intake Total 310 Output Total 930 350 Balance -620 -350 Weight 47.627 kg Intake: Blood Product 310 Rc As-1 Unit 310 [id number] Output: Gastric Drainage 700 Drainage 230 350 Left Abdomen 0 20 Right Abdomen 230 330 Other: Voiding Method Indwelling Catheter Indwelling Catheter Indwelling Catheter - Labs CBC & Chem 7: 09/08/23 15:23 09/08/23 05:47 Labs: Abnormal Lab Results - Last 24 Hours (Table) 09/07/23 09/07/23 09/08/23 Range/Units 19:14 20:54 01:20 RBC (4.30-5.90) m/uL Hgb (13.0-17.5) gm/dL Hct (39.0-53.0) % MCV (80.0-100.0) fL MCH (27.0-32.0) pg RDW (11.5-14.5) % Lymphocytes # (1.0-4.8) k/uL Sodium (137-145) mmol/L Chloride (98-107) mmol/L Carbon Dioxide (22-30) mmol/L Anion Gap (4.00-12.00) mmol/L Creatinine (0.66-1.25) mg/dL BUN/Creatinine Ratio (12.00-20.00) Ratio POC Glucose (mg/dL) 119 H 114 H (70-110) mg/dL Calcium (8.4-10.2) mg/dL ALT (10-49) U/L Total Protein (6.2-8.2) g/dL Albumin (3.8-4.9) g/dL Albumin/Globulin Ratio (1.60-3.17) Ratio Crossmatch See Detail 09/08/23 09/08/23 09/08/23 Range/Units 01:49 01:49 05:47 RBC 3.40 L 3.32 L (4.30-5.90) m/uL Hgb 8.7 L D 8.5 L (13.0-17.5) gm/dL Hct 26.7 L 25.2 L (39.0-53.0) % MCV 78.5 L 75.9 L (80.0-100.0) fL MCH 25.6 L (27.0-32.0) pg RDW 15.9 H (11.5-14.5) % Lymphocytes # 0.5 L (1.0-4.8) k/uL Sodium 132 L (137-145) mmol/L Chloride 111 H (98-107) mmol/L Carbon Dioxide 20 L (22-30) mmol/L Anion Gap (4.00-12.00) mmol/L Creatinine 0.62 L (0.66-1.25) mg/dL BUN/Creatinine Ratio (12.00-20.00) Ratio POC Glucose (mg/dL) (70-110) mg/dL Calcium 7.3 L (8.4-10.2) mg/dL ALT (10-49) U/L Total Protein (6.2-8.2) g/dL Albumin (3.8-4.9) g/dL Albumin/Globulin Ratio (1.60-3.17) Ratio Crossmatch 09/08/23 09/08/23 Range/Units 05:47 15:23 RBC 3.38 L (4.30-5.90) m/uL Hgb 8.7 L (13.0-17.5) gm/dL Hct 27.2 L (39.0-53.0) % MCV (80.0-100.0) fL MCH (27.0-32.0) pg RDW 15.6 H (11.5-14.5) % Lymphocytes # (1.0-4.8) k/uL Sodium (137-145) mmol/L Chloride (98-107) mmol/L Carbon Dioxide 19.8 L (22-30) mmol/L Anion Gap 12.20 H (4.00-12.00) mmol/L Creatinine (0.66-1.25) mg/dL BUN/Creatinine Ratio 27.17 H (12.00-20.00) Ratio POC Glucose (mg/dL) (70-110) mg/dL Calcium 7.9 L (8.4-10.2) mg/dL ALT 8 L (10-49) U/L Total Protein 4.1 L (6.2-8.2) g/dL Albumin 2.4 L (3.8-4.9) g/dL Albumin/Globulin Ratio 1.41 L (1.60-3.17) Ratio Crossmatch Microbiology - Last 24 Hours (Table) 09/06/23 20:25 Gram Stain - Preliminary Other - Other Wound Culture - Preliminary
[2023-09-08] MEDS: KETOROLAC 15 MG/ML 1 ML VIAL IVP SCH (20:44)
[2023-09-08] MEDS: ACETAMINOPHEN IV (For NPO) 650 MG in EMPTY BAG 1 BAG IVPB SCH (22:14)
[2023-09-09 00:05] LABS: Glucose,Whole Blood 86 mg/dL (70-110)
[2023-09-09 06:08] LABS: Glucose,Whole Blood 87 mg/dL (70-110)
[2023-09-09 06:36] LABS: HCT 25.5 % (39.0-53.0); HGB 8.6 gm/dL (13.0-17.5); Hypochromasia Slight; MCH 26.3 pg (25.0-35.0); MCHC 33.6 g/dL (31.0-37.0); MCV 78.3 fL (80.0-100.0); Mean Platelet Volume 8.3; Microcytosis Slight; Platelet Count 299 k/uL (150-450); Poikilocytosis Slight; RBC 3.26 m/uL (4.30-5.90); RDW 15.6 % (11.5-15.5); WBC 8.8 k/uL (3.8-10.6)
[2023-09-09 06:42] LABS: ALT 10 U/L (4-49); African American GFR (CKD) >90 (>60 ml/min/1.73 sqM); Anion Gap 7 mmol/L; Blood Urea Nitrogen 18 mg/dL (9-20); Calcium 7.4 mg/dL (8.4-10.2); Carbon Dioxide 14 mmol/L (22-30); Chloride 113 mmol/L (98-107); Globulin 2.1 g/dL; Glucose 69 mg/dL (74-99); Non-African American GFR(CKD) >90 (>60 ml/min/1.73 sqM); Sodium 134 mmol/L (137-145); Total Bilirubin 0.5 mg/dL (0.2-1.3); Total Protein 4.1 g/dL (6.3-8.2)
[2023-09-09 06:43] LABS: AST 26 U/L (17-59); Alkaline Phosphatase 56 U/L (38-126); Magnesium 1.5 mg/dL (1.6-2.3); Potassium 3.7 mmol/L (3.5-5.1)
[2023-09-09 06:51] LABS: Ionized Calcium 4.7 mg/dL (4.5-5.3)
[2023-09-09] MEDS: MAGNESIUM SULFATE-D5W PMX 1 GM in DEXTROSE/WATER 1 100ML.BAG IVPB SCH (11:34)
[2023-09-09 11:50] LABS: Glucose,Whole Blood 83 mg/dL (70-110)
--- NOTE | 2023-09-09 13:53 | P.PN ---
Subjective Progress Note Date: 09/09/23 CHIEF COMPLAINT: Small bowel perforation HISTORY OF PRESENT ILLNESS: The patient is a 42-year-old male admitted with abdominal pain. He is status post exploratory laparotomy including small bowel resection for small bowel perforation. Patient complains of abdominal pain. Has been requiring IV pain medication. Denies any bowel movement or flatus. Denies any nausea or vomiting. DEBORA drain x 2 with serosanguineous output. Right DEBORA drain with 140 mL output and left 40 mL. Patient scheduled for PICC line placement to start TPN today. PHYSICAL EXAM: VITAL SIGNS: Reviewed GENERAL: Well-developed in no acute distress. HEENT: No sclera icterus. Extraocular movements grossly intact. Moist buccal mucosa. Head is atraumatic, normocephalic. Hears conversational speech. No nasal drainage. NECK: Supple without lymphadenopathy. CHEST: Non-labored respirations and equal bilateral excursions. CARDIOVASCULAR: Palpable 2+ radial pulses. ABDOMEN: Mild distention. Incision site dressing clean dry and intact. [address] NG tube with minimal bilious output. MUSCULOSKELETAL: No clubbing or cyanosis. NEUROLOGIC: No focal or lateralizing signs. Cranial nerves II through XII narendra ssly intact. PSYCH: Appropriate affect. Alert and oriented to person, place and time. SKIN: Well perfused. Good skin turgor. ASSESSMENT: 1. Small bowel perforation 2. Underweight, BMI 16.9 3. Prolonged n.p.o. status 4. Inadequate protein intake PLAN: -Continue NG tube for decompression -Keep patient n.p.o. -May need small bowel follow-through after adequate postoperative time. -Patient scheduled for PICC line and TPN for nutrition support -Continue antibiotics -Continue pain management -Continue to monitor DEBORA drain output -Increase activity level -Continue IV fluids -DC Sandoval catheter -DVT prophylaxis subcu heparin Physician Visual Merchandise Manager note has been reviewed by physician. Signing provider agrees with the documented findings, assessment, and plan of care. Objective - Vital Signs Vital signs: Vital Signs Temp 97.8 F 09/09/23 13:39 Pulse 52 L 09/09/23 13:39 Resp 16 09/09/23 13:39 BP 138/86 09/09/23 13:39 Pulse Ox 100 09/09/23 13:39 FiO2 Intake & Output 09/08/23 09/09/23 09/09/23 18:59 06:59 18:59 Output Total 878 687 1597 Balance -350 -810 -1640 Weight 47.627 kg Output: Drainage 350 260 240 Left Abdomen 20 40 Right Abdomen 330 220 240 Urine 550 1400 Uretheral (Sandoval) 700 Other: Voiding Method Indwelling Catheter Indwelling Catheter Indwelling Catheter - Labs CBC & Chem 7: 09/09/23 05:39 09/09/23 05:39 Labs: Abnormal Lab Results - Last 24 Hours (Table) 09/08/23 09/09/23 09/09/23 Range/Units 15:23 05:39 05:39 RBC 3.38 L 3.26 L (4.30-5.90) m/uL Hgb 8.7 L 8.6 L (13.0-17.5) gm/dL Hct 27.2 L 25.5 L (39.0-53.0) % MCV 78.3 L (80.0-100.0) fL RDW 15.6 H 15.6 H (11.5-15.5) % Sodium 134 L (137-145) mmol/L Chloride 113 H (98-107) mmol/L Carbon Dioxide 14 L (22-30) mmol/L Creatinine 0.52 L (0.66-1.25) mg/dL Glucose 69 L (74-99) mg/dL Calcium 7.4 L (8.4-10.2) mg/dL Magnesium 1.5 L (1.6-2.3) mg/dL Total Protein 4.1 L (6.3-8.2) g/dL Albumin 2.0 L (3.5-5.0) g/dL Microbiology - Last 24 Hours (Table) 09/06/23 20:25 Anaerobic Culture - Preliminary Other - Other 09/06/23 20:25 Gram Stain - Final Other - Other Wound Culture - Final
--- NOTE | 2023-09-09 16:57 | P.PN ---
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 He presented to the emergency department on 09/04/2023 for reports of abdominal pain/discomfort. He underwent full evaluation in the emergency department. Upon arrival vital signs stable with blood pressure 123/86, heart rate 84, respiratory rate 16, temp 98.4 F, and SpO2 of 97% on room air. Labs completed and reviewed. CBC showing leukocytosis with WBC count of 10.7. BMP revealing hypokalemia with potassium of 2.7, hyperchloremia with chloride of 109, hypocarbia with bicarb of 21, and anion gap of 5. Blood glucose was 97. Lactic acid was elevated at 2.1. Lipase elevated at 434. Urinalysis positive for protein, ketones, and 7 RBCs but negative for infection. CT abdomen and pelvis completed showing consolidation at the right lung base suspect possible aspiration versus atelectasis, and intussusception in the left lower quadrant contributing to suspected bowel obstruction with associated fluid distended colon. NG tube was placed and x-ray was completed to confirm placement. Patien t admitted under our services for bowel intussusception with concerns of obstruction with consultation to general surgery. Initially small bowel obstruction was being managed conservatively with NG tube and IV fluid hydration for bowel rest. On 09/06/2023 patient accidentally pulled NG tube resulting in need for replacement and follow-up x-ray revealed free air in abdomen. General surgery was notified immediately. Patient was taken to the OR and found to have peritonitis with small bowel perforation and underwent emergent small bowel resection with pfha-es-fxcy duodenaljejunostomy. Physical exam: Patient is postoperative day 3. NG tube remains in place to lower remittent suction. Patient reports continued moderate postoperative pain. Abdominal surgical dressing and abdominal binder in place. Patient denies having any nausea or vomiting. Patient awaiting to have PICC line placement this morning and to be started on TPN with lipids. Vital signs reviewed and stable. General: Nontoxic, no acute distress. Emaciated, thin and frail build Derm: Skin warm and dry, normal coloration for ethnicity. Head: Atraumatic, normocephalic and symmetric. Eyes: EOMs intact, no lid lag, and anicteric sclera Mouth: no lip lesions, mucus membranes moist Cardiovascular: regular rate and rhythm with normal S1S2, no murmur, positive posterior tibial pulses bilaterally, and cap refill < 2 seconds. Lungs: Respirations even, regular, and unlabored on room air. Lungs CTA bilaterally, no rhonchi, no rales, no wheezing, and no accessory muscle usage. Abdominal: soft distended diffuse tenderness upon palpation to lower quadrants. NG tube in place. Postsurgical dressing and abdominal binder in place. DEBORA drain in place. Ext: ROM intact. No gross muscle atrophy, no edema, no contractures Neuro: Speech clear, face symmetrical and CN II-XII grossly intact with no noted focal neuro deficits Psych: Alert and oriented to person, place, time, and situation. Appropriate and pleasant affect. Assessment and Plan of Care: Peritonitis with small bowel perforation status post emergent small bowel resection with jfxq-gh-btjz duodenojejunostomy Acute postsurgical blood loss anemia, status posttransfusion 1 unit PRBCs Hyponatremia Hypomagnesemia History of GERD with erosive esophagitis History of gastritis Elevated lipase with history of chronic pancreatitis Lactic acidosis, resolved High-anion gap metabolic acidosis, resolved Severe protein calorie malnutrition with BMI of 16.9 kg/m Patient to continue IV antibiotics with Zosyn 3.375 g every 8 hours Status post 1 unit PRBCs. Currently hemoglobin stable at 8.6. Cultures were obtained during surgical procedure, preliminary results showing no growth to date. Continue NG tube to low intermittent suctioning General surgery following, reviewed documentation in chart Symptomatic care and pain management. Zofran 4 mg IVP every 8 hours as needed for nausea and/or vomiting and Dilaudid 1 mg every 3 hours as needed for pain. 0.9% normal saline discontinued, PICC line placed and patient started on TPN with lipids. Continue Protonix 40 mg IVP daily Strict NPO while NG tube is in place and orders placed for aspiration precautions Continue glycemic protocol with coivj-xq-vvhz glucose checks to be completed every 6 hours while NPO Right lung base consolidation, suspect aspiration versus atelectasis -Patient denies shortness of breath, cough, or congestion. Does report recent episodes of vomiting which is likely cause of possible aspiration. SPO2 98% on room air. Will continue to monitor. -Will consult speech and language pathology for swallow evaluation once NG tube is removed and testing can be completed. -Aspiration precautions are in place. History of pulmonary emboli -Patient was undergoing cancer treatments during this time, considered provoked PE. -DVT prophylaxis with heparin 5000 units subcutaneously every 8 hours. Hypokalemia, resolved Data reviewed: Labs completed and reviewed. CBC showing stable hemoglobin of 8.6. BMP revealing mild hyponatremia with sodium of 134, hyperchloremia with chloride of 113, and hypocarbia with bicarb of 14.. Magnesium was low 1.5 and orders were placed for replacement with magnesium sulfate 2 g IVPB. Vital signs were reviewed. Blood pressure 134/81, heart rate 53, respiratory rate 16, temp 97.6 F, and SpO2 of 100% on room air. CODE STATUS: Full code DVT prophylaxis: Heparin Anticipated discharge date: Clinical course to determine Anticipated discharge place: Clinical course to determine Patient was seen independently by Nurse Pracitioner. This document was prepared using [employer] dictation software. Please allow for errors in vp patient, while rare they do occur Edin Davalos SEARCH PLANNER rendered care for this patient independently, reviewed the findings and plan as documented in the note above. I did not physically speak with or examine the patient on this date. Objective - Vital Signs Vital signs: Vital Signs Temp 97.6 F 09/09/23 07:14 Pulse 53 L 09/09/23 07:14 Resp 16 09/09/23 07:14 BP 134/81 09/09/23 07:14 Pulse Ox 100 09/09/23 07:14 FiO2 Intake & Output 09/08/23 09/09/23 09/09/23 18:59 06:59 18:59 Output Total 350 810 Balance -350 -810 Weight 47.627 kg Output: Drainage 350 260 Left Abdomen 20 40 Right Abdomen 330 220 Urine 550 Other: Voiding Method Indwelling Catheter Indwelling Catheter - Labs CBC & Chem 7: 09/16/23 07:59 09/16/23 07:59 Labs: Abnormal Lab Results - Last 24 Hours (Table) 09/08/23 09/09/23 09/09/23 Range/Units 15:23 05:39 05:39 RBC 3.38 L 3.26 L (4.30-5.90) m/uL Hgb 8.7 L 8.6 L (13.0-17.5) gm/dL Hct 27.2 L 25.5 L (39.0-53.0) % MCV 78.3 L (80.0-100.0) fL RDW 15.6 H 15.6 H (11.5-15.5) % Sodium 134 L (137-145) mmol/L Chloride 113 H (98-107) mmol/L Carbon Dioxide 14 L (22-30) mmol/L Creatinine 0.52 L (0.66-1.25) mg/dL Glucose 69 L (74-99) mg/dL Calcium 7.4 L (8.4-10.2) mg/dL Magnesium 1.5 L (1.6-2.3) mg/dL Total Protein 4.1 L (6.3-8.2) g/dL Albumin 2.0 L (3.5-5.0) g/dL Microbiology - Last 24 Hours (Table) 09/06/23 20:25 Gram Stain - Final Other - Other Wound Culture - Final
[2023-09-09] MEDS: LIDOCAINE 1% INJ 10MG/ML (5 ML VIAL-PF) SQ ONE (17:07)
[2023-09-09] MEDS: IOPAMIDOL-370 100ML BTL IVP ONE (17:15)
--- NOTE | 2023-09-09 17:27 | P.PCN ---
Date of Procedure: 09/09/23 Preoperative Diagnosis: Perforated viscus, poor venous access, need for TPN Postoperative Diagnosis: Same Procedure(s) Performed: Left upper extremity brachial vein PICC line under ultrasound and fluoroscopic guidance Central venogram Anesthesia: local Surgeon: Dameon Clarke Pathology: none sent Condition: stable Disposition: floor Operative Findings: unable to pass across subclavian vein into superior vena cava Description of Procedure: After written and informed consent was obtained the patient and all risks, benefits and competitions were described the patient was brought to the Accounts Payable Associate and laid in a supine position with his left arm outstretched on an armboard. T he area of the left arm was prepped and draped in usual sterile fashion. Timeout was performed in normal fashion. Utilizing ultrasound the cephalic and basilic veins were thrombosed and due to the fact that right side catheter was in place and right-sided veins were occluded the brachial veins were visualized and shown to be compressible without any visible thrombus. Under ultrasound guidance the medial brachial vein was then cannulated with a micropuncture needle and wire was placed under direct visualization of fluoroscopy. Introducer sheath was then placed. The catheter was measured and cut to the appropriate length which was 49 cm. The catheter was then guided through the breakaway sheath but was unable to be passed past the subclavian vein even over a wire and therefore eating gram was obtained demonstrating sharp angle and likely a valve holding up the catheter. The wire was then repositioned and the catheter was guided past this area into the appropriate position and the sheath was removed with good positioning was visualized under fluoroscopy. The catheter was pulled and flushed easily. It was then secured in place in normal fashion. Patient tolerated the procedure well was sent back to his room for recovery.
[2023-09-09 17:56] LABS: Glucose,Whole Blood 86 mg/dL (70-110)
--- NOTE | 2023-09-09 19:20 | IR ---
EXAMINATION TYPE: IR cvc insert >=5 years DATE OF EXAM: 09/09/2023 FLUOROSCOPY TPN IVF, 2.3 min fluoro,49cm, left brachial vein, 0.187AShh8. 80 images provided.
[2023-09-09] MEDS: FAT EMULSION 20% 250 ML IV SCH (19:59)
[2023-09-09] MEDS: MVI, ADULT NO.4 WITH VIT K 10 ML, TRACE (CONC-1ML/DOSE) 1 ML in AMINO ACID 5%-D15W+LYTE... IV SCH (19:59)
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
[2023-09-10 01:00] LABS: Glucose,Whole Blood 161 mg/dL (70-110)
[2023-09-10 06:01] LABS: Glucose,Whole Blood 184 mg/dL (70-110)
[2023-09-10 06:58] LABS: HCT 27.8 % (39.0-53.0); HGB 8.9 gm/dL (13.0-17.5); Hypochromasia Slight; MCH 25.3 pg (25.0-35.0); MCHC 31.9 g/dL (31.0-37.0); MCV 79.3 fL (80.0-100.0); Mean Platelet Volume 7.1; Platelet Count 394 k/uL (150-450); Poikilocytosis Slight; RDW 15.8 % (11.5-15.5); WBC 9.8 k/uL (3.8-10.6)
[2023-09-10] MEDS: ACETAMINOPHEN IV (For NPO) 700 MG in EMPTY BAG 1 BAG IVPB SCH (09:38)
[2023-09-10] MEDS ORDERED: DEXTROSE 50% SYRINGE 50 ML IVP PRN ×2 (09:53)
--- NOTE | 2023-09-10 10:27 | XR ---
EXAMINATION TYPE: XR chest 1V portable DATE OF EXAM: 09/10/2023 10:12 AM CLINICAL INDICATION:Male, 42 years old with history of verify placement of NG tube; [facility] COMPARISON: Chest radiographs from 09/06/2023. TECHNIQUE: XR chest 1V portable Frontal view of the chest. FINDINGS: Lungs/Pleura: There is no evidence of pleural effusion, focal consolidation, or pneumothorax. Pulmonary vascularity: Unremarkable. Heart/mediastinum: Cardiomediastinal silhouette is unremarkable. Musculoskeletal: No acute osseous pathology. Other findings: Surgical clips projecting in the bilateral abdomen. Oral contrast seen throughout the abdomen. Lines/Tubes: Nasogastric tube distal tip and side-port projecting below the diaphragm. Lpgdrj-u-Ncay projecting over the right hemithorax with distal tip projecting over the superior vena cava. Left-sided PICC with distal tip at the superior vena cava/brachiocephalic confluence. IMPRESSION: Nasogastric tube in appropriate position. Left PICC and right Hmeboq-m-Xkzp with tips in appropriate position.
--- NOTE | 2023-09-10 11:32 | P.PN ---
Subjective Progress Note Date: 09/10/23 Principal diagnosis: Reason for follow-up is abdominal sepsis/peritonitis Patient is a 42-year-old -Filipino male with a past medical history significant for right-sided jaw cancer diagnosed in May 2021 that has been treated with chemoradiation patient did have a trach and PEG that was subsequently removed history of alcohol disorder and chronic pancreatitis patien t presenting to the hospital for evaluation abdominal pain has been diagnosed with small bowel perforation status post laparotomy resection of the small bowel and [id number] duodenojejunostomy, ID consulted for management of antibiotic for abdominal sepsis peritonitis. On today's evaluation that is 09/10/2023,the patient denies any fever or any chills, patient is breathing comfortably on room air, the patient complaining of discomfort with mild cough but no sputum production so complaint of abdominal pain and still have the NG in no bowel movement. Patient white count is 9.8 creatinine 0.52 abdominal cultures pending Objective - Vital Signs Vital signs: Vital Signs Temp 97.5 F L 09/10/23 07:04 Pulse 72 09/10/23 07:04 Resp 19 09/10/23 07:04 BP 147/84 09/10/23 07:04 Pulse Ox 99 09/10/23 07:04 FiO2 Intake & Output 09/09/23 09/10/23 09/10/23 18:59 06:59 18:59 Output Total 2140 1080 120 Balance -2140 -1080 -120 Output: Gastric Drainage 100 Drainage 440 280 120 Left Abdomen 40 40 40 Right Abdomen 400 240 80 Urine 1600 800 Uretheral (Sandoval) 700 Other: Voiding Method Indwelling Catheter Indwelling Catheter Urinal - Exam GENERAL DESCRIPTION: Middle-age male lying in bed in no distress RESPIRATORY SYSTEM: Unlabored breathing , decreased breath sounds at bases HEART: S1 S2 regular rate and rhythm , ABDOMEN: Soft , mild tenderness EXTREMITIES: No edema feet - Labs CBC & Chem 7: 09/10/23 06:24 09/09/23 05:39 Labs: Abnormal Lab Results - Last 24 Hours (Table) 09/10/23 09/10/23 09/10/23 Range/Units 00:57 05:57 06:24 RBC 3.50 L (4.30-5.90) m/uL Hgb 8.9 L (13.0-17.5) gm/dL Hct 27.8 L (39.0-53.0) % MCV 79.3 L (80.0-100.0) fL RDW 15.8 H (11.5-15.5) % POC Glucose (mg/dL) 161 H 184 H (70-110) mg/dL Microbiology - Last 24 Hours (Table) 09/06/23 20:25 Anaerobic Culture - Preliminary Other - Other 09/06/23 20:25 Gram Stain - Final Other - Other Wound Culture - Final Assessment and Plan (1) Peritonitis Current Visit: Yes Status: Acute Code(s): K65.9 - PERITONITIS, UNSPECIFIED SNOMED Code(s): 70411814 (2) Small bowel perforation Current Visit: Yes Status: Acute Code(s): K63.1 - PERFORATION OF INTESTINE (NONTRAUMATIC) SNOMED Code(s): 013816197 Plan: 1patient is in the hospital with abdominal pain he did have a low-grade fever and has been diagnosed with a perforated small bowel status post laparotomy small bowel resection and cqes-la-tidn duodenojejunostomy and concern for peritonitis likely organism need to cover with enteric gram-negative both aerobes and anaerobes 2-patient to continue with the Zosyn 3.37 g every 8 hours while waiting for the culture to finalize and monitor clinical course closely Dictation was produced using [employer] dictation software. please excuse any grammatical, word or spelling errors. Time with Patient: Less than 30
[2023-09-10 11:34] LABS: Glucose,Whole Blood 188 mg/dL (70-110)
[2023-09-10 12:37] LABS: Magnesium 1.5 mg/dL (1.5-2.4)
[2023-09-10 12:55] LABS: ALT 11 U/L (10-49); AST 25 U/L (14-35); Albumin 2.3 g/dL (3.8-4.9); Albumin/Globulin Ratio 1.21 Ratio (1.60-3.17); Alkaline Phosphatase 47 U/L (41-126); Blood Urea Nitrogen 12.2 mg/dL (9.0-27.0); Calcium 7.7 mg/dL (8.7-10.3); Carbon Dioxide 15.2 mmol/L (21.6-31.8); Chloride 102 mmol/L (96-109); Globulin 1.9 g/dL (1.6-3.3); Glucose 177 mg/dL (70-110); Potassium 3.6 mmol/L (3.5-5.5); Sodium 134 mmol/L (135-145); Total Bilirubin 0.2 mg/dL (0.3-1.2); Total Protein 4.2 g/dL (6.2-8.2)
[2023-09-10] MEDS: INSULIN ASPART (NovoLOG) 100 UNIT/ML VIAL SQ SCH (13:50)
--- NOTE | 2023-09-10 14:14 | P.PN ---
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 He presented to the emergency department on 09/04/2023 for reports of abdominal pain/discomfort. Upon arrival vital signs stable with BP 123/86, HR 84, RR 16, T 98.4 F, and SpO2 of 97% on room air. CBC showing WBC count of 10.7. BMP potassium of 2.7, chloride of 109, bicarb of 21, and anion gap of 5. Blood glucose was 97. Lactic acid was elevated at 2.1. Lipase elevated at 434. Urinalysis positive for protein, ketones, and 7 RBCs but negative for infection. CT abdomen and pelvis completed showing consolidation at the right lung base suspect possible aspiration versus atelectasis, and intussusception in the left lower quadrant contributing to suspected bowel obstruction with associated fluid distended colon. NG tube was placed and x-ray was completed to confirm placement. Patient admitted under our services for bowel intussusception with concerns of obstruction with consultation to general surgery. Initially small bowel obstruction was being managed conservatively with NG tube and IV fluid hydration for bowel rest. On 09/06/2023 patient accidentally pulled NG tube resulting in need for replacement and follow-up x-ray revealed free air in abdomen. Patient was taken to the OR and found to have peritonitis with small bowel perforation and underwent emergent small bowel resection with anas-[id number]-[id number] duodenaljejunostomy. 09/10 Patient was seen and examined. Reports 9/10 pain in his abdomen. Dilaudid helps with the pain. Currently with NG tube draining bilious material. CBC Hg 8.9 Hct 27.8 MCV 79.3. CMP Na 134, bicab 15.2, AG 16.8, Cr 0.5, BUN/Cr 24.4, glu 177, Ca 7.7, T. Bili 0.2, alb 2.3. PICC inserted LUE by Vascular surgery and started on TPN. CXR done today shows correct positioning of the PICC and NG tube. Vital signs reviewed and stable. General: Nontoxic, no acute distress. Emaciated, thin and frail build Derm: Skin warm and dry, normal coloration for ethnicity. Head: Atraumatic, normocephalic and symmetric. Eyes: EOMs intact, no lid lag, and anicteric sclera Cardiovascular: regular rate and rhythm with normal S1S2, no murmur Lungs: Respirations even, regular, and unlabored on room air. Lungs CTA bilaterally, no rhonchi, no rales, no wheezing, and no accessory muscle usage. Abdominal: soft distended diffuse tenderness upon palpation to lower quadrants. NG tube in place. Postsurgical dressing and abdominal binder in place. DEBORA drain in place. Ext: ROM intact. No gross muscle atrophy, no edema, no contractures Neuro: Speech clear, face symmetrical with no noted focal neuro deficits Psych: Alert and oriented to person, place, time, and situation. Appropriate and pleasant affect. Based on my assessment of this patient, this patient meets a high complexity level of care. Patient has an acute diagnosis of small bowel perforation with uncontrolled pain requiring Dilaudid around the clock that poses a threat to life or bodily function. Peritonitis with small bowel perforation status post emergent small bowel resection with vmna-[id number]-[id number] duodenojejunostomy: NPO. Continue TPN. Dilaudid 1 mg IV Q3H PRN. 4g IV Tylenol ordered today. Zosyn 3.375 g IV TID (D4). Surgery and ID on board. Acute postsurgical blood loss anemia, status posttransfusion 1 unit PRBCs: Transfuse if Hg < 7. Right lung base consolidation, suspect aspiration versus atelectasis: Will consult speech and language pathology for swallow evaluation once NG tube is removed and testing can be completed. Aspiration precautions are in place. History of GERD with erosive esophagitis: Protonix 40 mg IV QD. History of gastritis: Protonix as above. Elevated lipase with history of chronic pancreatitis Severe protein calorie malnutrition with BMI of 16.9 kg/m History of pulmonary emboli CODE STATUS: FULL CODE. DVT Prophylaxis: Heparin SQ. GI Prophylaxis: Protonix IV Designated medical POA if patient is not able to make medical decisions for themselves: I have reviewed the following [employer] commerce consultant notes: Surgery, ID, Vascular Sx note. I have reviewed the results of the following tests: CBC. CMP. I have ordered the following tests: CBC. CMP. I have discussed the care of this patient with the following independent historian: I have independently interpreted the following test below: CXR as above. I have discussed the management of this patient with the following physician: Discussed with Dr. White. Objective - Vital Signs Vital signs: Vital Signs Temp 97.5 F L 09/10/23 07:04 Pulse 72 09/10/23 07:04 Resp 19 09/10/23 07:04 BP 147/84 09/10/23 07:04 Pulse Ox 99 09/10/23 07:04 FiO2 Intake & Output 09/09/23 09/10/23 09/10/23 18:59 06:59 18:59 Output Total 2140 1080 120 Balance -2140 -1080 -120 Output: Gastric Drainage 100 Drainage 440 280 120 Left Abdomen 40 40 40 Right Abdomen 400 240 80 Urine 1600 800 Uretheral (Sandoval) 700 Other: Voiding Method Indwelling Catheter Indwelling Catheter Urinal - Labs CBC & Chem 7: 09/10/23 06:24 09/10/23 06:24 Labs: Abnormal Lab Results - Last 24 Hours (Table) 09/10/23 09/10/23 09/10/23 Range/Units 00:57 05:57 06:24 RBC 3.50 L (4.30-5.90) m/uL Hgb 8.9 L (13.0-17.5) gm/dL Hct 27.8 L (39.0-53.0) % MCV 79.3 L (80.0-100.0) fL RDW 15.8 H (11.5-15.5) % Sodium (135-145) mmol/L Carbon Dioxide (21.6-31.8) mmol/L Anion Gap (4.00-12.00) mmol/L Creatinine (0.6-1.5) mg/dL BUN/Creatinine Ratio (12.00-20.00) Ratio Glucose (70-110) mg/dL POC Glucose (mg/dL) 161 H 184 H (70-110) mg/dL Calcium (8.7-10.3) mg/dL Total Bilirubin (0.3-1.2) mg/dL Total Protein (6.2-8.2) g/dL Albumin (3.8-4.9) g/dL Albumin/Globulin Ratio (1.60-3.17) Ratio 09/10/23 09/10/23 Range/Units 06:24 11:32 RBC (4.30-5.90) m/uL Hgb (13.0-17.5) gm/dL Hct (39.0-53.0) % MCV (80.0-100.0) fL RDW (11.5-15.5) % Sodium 134 L (135-145) mmol/L Carbon Dioxide 15.2 L (21.6-31.8) mmol/L Anion Gap 16.80 H (4.00-12.00) mmol/L Creatinine 0.5 L (0.6-1.5) mg/dL BUN/Creatinine Ratio 24.40 H (12.00-20.00) Ratio Glucose 177 H (70-110) mg/dL POC Glucose (mg/dL) 188 H (70-110) mg/dL Calcium 7.7 L (8.7-10.3) mg/dL Total Bilirubin 0.2 L (0.3-1.2) mg/dL Total Protein 4.2 L (6.2-8.2) g/dL Albumin 2.3 L (3.8-4.9) g/dL Albumin/Globulin Ratio 1.21 L (1.60-3.17) Ratio Microbiology - Last 24 Hours (Table) 09/06/23 20:25 Anaerobic Culture - Preliminary Other - Other
--- NOTE | 2023-09-10 14:47 | P.PN ---
Subjective Progress Note Date: 09/10/23 CHIEF COMPLAINT: Small bowel perforation HISTORY OF PRESENT ILLNESS: The patient is a 42-year-old male admitted with abdominal pain. He is status post exploratory laparotomy including small bowel resection for small bowel perforation. Patient complains of abdominal pain. Patient status post PICC line placement. He has TPN running for nutrition support. NG tube with 100 mL output. Patient does report having flatus. Patient reports a bowel movement yesterday. This was not witnessed by nursing s taff. DEBORA drain output especially on the right and has been high. Output is serosanguineous in color. WBC is 9.8 Hgb 8.9 platelets 394 sodium is 134 potassium 3.6 creatinine 130 PHYSICAL EXAM: VITAL SIGNS: Reviewed GENERAL: Well-developed in no acute distress. HEENT: No sclera icterus. Extraocular movements grossly intact. Moist buccal mucosa. Head is atraumatic, normocephalic. Hears conversational speech. No nasal drainage. NECK: Supple without lymphadenopathy. CHEST: Non-labored respirations and equal bilateral excursions. CARDIOVASCULAR: Palpable 2+ radial pulses. ABDOMEN: Softer today. Mild distention. Incision site dressing clean dry and intact. [address] NG tube with minimal bilious output. MUSCULOSKELETAL: No clubbing or cyanosis. NEUROLOGIC: No focal or lateralizing signs. Cranial nerves II through XII grossly intact. PSYCH: Appropriate affect. Alert and oriented to person, place and time. SKIN: Well perfused. Good skin turgor. ASSESSMENT: 1. Small bowel perforation 2. Underweight, BMI 16.9 3. Prolonged n.p.o. status 4. Inadequate protein intake PLAN: -Continue NG tube for decompression -Keep patient n.p.o. -May need small bowel follow-through after adequate postoperative time. -Continue TPN for nutrition support -Continue antibiotics -Continue pain management -Continue to monitor DEBORA drain output -Increase activity level -Continue IV fluids -Ordered incentive spirometer -DVT prophylaxis subcu heparin Physician Hot Saw Helper note has been reviewed by physician. Signing provider agrees with the documented findings, assessment, and plan of care. Objective - Vital Signs Vital signs: Vital Signs Temp 97.5 F L 09/10/23 07:04 Pulse 72 09/10/23 07:04 Resp 19 09/10/23 07:04 BP 147/84 02/14/24 07:04 Pulse Ox 99 09/10/23 07:04 FiO2 Intake & Output 09/09/23 09/10/23 09/10/23 18:59 06:59 18:59 Output Total 2140 1080 120 Balance -2140 -1080 -120 Output: Gastric Drainage 100 Drainage 440 280 120 Left Abdomen 40 40 40 Right Abdomen 400 240 80 Urine 1600 800 Uretheral (Sandoval) 700 Other: Voiding Method Indwelling Catheter Indwelling Catheter Urinal - Labs CBC & Chem 7: 09/10/23 06:24 09/10/23 06:24 Labs: Abnormal Lab Results - Last 24 Hours (Table) 09/10/23 09/10/23 09/10/23 Range/Units 00:57 05:57 06:24 RBC 3.50 L (4.30-5.90) m/uL Hgb 8.9 L (13.0-17.5) gm/dL Hct 27.8 L (39.0-53.0) % MCV 79.3 L (80.0-100.0) fL RDW 15.8 H (11.5-15.5) % POC Glucose (mg/dL) 161 H 184 H (70-110) mg/dL 09/10/23 Range/Units 11:32 RBC (4.30-5.90) m/uL Hgb (13.0-17.5) gm/dL Hct (39.0-53.0) % MCV (80.0-100.0) fL RDW (11.5-15.5) % POC Glucose (mg/dL) 188 H (70-110) mg/dL Microbiology - Last 24 Hours (Table) 09/06/23 20:25 Anaerobic Culture - Preliminary Other - Other 09/06/23 20:25 Gram Stain - Final Other - Other Wound Culture - Final
[2023-09-10 17:26] LABS: Glucose,Whole Blood 175 mg/dL (70-110)
[2023-09-10] MEDS: MVI, ADULT NO.4 WITH VIT K 10 ML, TRACE (CONC-1ML/DOSE) 1 ML in AMINO ACID 5%-D15W+LYTE... IV SCH (20:15)
[2023-09-11 00:16] LABS: Glucose,Whole Blood 187 mg/dL (70-110)
[2023-09-11 06:03] LABS: Glucose,Whole Blood 167 mg/dL (70-110)
[2023-09-11] MEDS: ACETAMINOPHEN IV (For NPO) 700 MG in EMPTY BAG 1 BAG IVPB SCH (09:03)
[2023-09-11 10:19] LABS: HCT 26.3 % (39.6-50.0); HGB 8.9 g/dL (13.0-17.0); MCH 25.1 pg (27.0-32.0); MCHC 33.8 g/dL (32.0-37.0); MCV 74.1 FL (80.0-97.0); Mean Platelet Volume 9.2 FL (9.5-12.2); NRBC Per 100 WBC 0 X 10*3/uL (0.00-0.01); Platelet Count 351 X 10*3/uL (140-440); RBC 3.55 X 10*6/uL (4.40-5.60); WBC 8.89 X 10*3/uL (4.50-10.00)
[2023-09-11 10:45] LABS: ALT 12 U/L (10-49); AST 20 U/L (14-35); Albumin 2.5 g/dL (3.8-4.9); Albumin/Globulin Ratio 1.39 Ratio (1.60-3.17); Alkaline Phosphatase 47 U/L (41-126); Blood Urea Nitrogen 11.7 mg/dL (9.0-27.0); Calcium 7.7 mg/dL (8.7-10.3); Carbon Dioxide 24.3 mmol/L (21.6-31.8); Chloride 101 mmol/L (96-109); Globulin 1.8 g/dL (1.6-3.3); Glucose 120 mg/dL (70-110); Magnesium 1.5 mg/dL (1.5-2.4); Phosphorus 2.2 mg/dL (2.4-5.1); Sodium 136 mmol/L (135-145); Total Bilirubin 0.3 mg/dL (0.3-1.2); Total Protein 4.3 g/dL (6.2-8.2)
--- NOTE | 2023-09-11 11:30 | P.PN ---
Subjective Progress Note Date: 09/11/23 Principal diagnosis: Reason for follow-up is abdominal sepsis/peritonitis Patient is a 42-year-old -[place] male with a past medical history significant for right-sided jaw cancer diagnosed in May 2021 that has been treated with chemoradiation patient did have a trach and PEG that was subsequently removed history of alcohol disorder and chronic pancreatitis patien t presenting to the hospital for evaluation abdominal pain has been diagnosed with small bowel perforation status post laparotomy resection of the small bowel and [id number] duodenojejunostomy, ID consulted for management of antibiotic for abdominal sepsis peritonitis. On today's evaluation that is 09/11/2023,the patient remains to be afebrile, patient is on room air not requiring supplemental oxygen and denies any shortness of breath no chest pain or cough.Patient complaining of some nausea a nd abdominal pain. Controlled with the pain medication did not have any bowel movement. Patient white count is 8.89, creatinine 0.5 Objective - Vital Signs Vital signs: Vital Signs Temp 97.4 F L 09/11/23 01:42 Pulse 58 L 09/11/23 06:55 Resp 18 09/11/23 06:55 BP 116/77 09/11/23 06:55 Pulse Ox 100 09/11/23 06:55 FiO2 Intake & Output 09/10/23 09/11/23 09/11/23 18:59 06:59 18:59 Output Total 2240 350 320 Balance -2240 -350 -320 Weight 47.627 kg Output: Gastric Drainage 400 Drainage 440 350 120 Left Abdomen 60 20 Right Abdomen 380 350 100 Urine 1400 200 Other: Voiding Method Urinal - Exam GENERAL DESCRIPTION: Middle-age male lying in bed in no distress RESPIRATORY SYSTEM: Unlabored breathing , decreased breath sounds at bases HEART: S1 S2 regular rate and rhythm , ABDOMEN: Soft , mild tenderness EXTREMITIES: No edema feet - Labs CBC & Chem 7: 09/11/23 06:54 09/11/23 06:54 Labs: Abnormal Lab Results - Last 24 Hours (Table) 09/10/23 09/10/23 09/10/23 Range/Units 06:24 11:32 17:25 RBC (4.40-5.60) X 10*6/uL Hgb (13.0-17.0) g/dL Hct (39.6-50.0) % MCV (80.0-97.0) FL MCH (27.0-32.0) pg RDW (11.5-14.5) % MPV (9.5-12.2) FL Sodium 134 L (135-145) mmol/L Potassium (3.5-5.5) mmol/L Carbon Dioxide 15.2 L (21.6-31.8) mmol/L Anion Gap 16.80 H (4.00-12.00) mmol/L Creatinine 0.5 L (0.6-1.5) mg/dL BUN/Creatinine Ratio 24.40 H (12.00-20.00) Ratio Glucose 177 H (70-110) mg/dL POC Glucose (mg/dL) 188 H 175 H (70-110) mg/dL Calcium 7.7 L (8.7-10.3) mg/dL Phosphorus (2.4-5.1) mg/dL Total Bilirubin 0.2 L (0.3-1.2) mg/dL Total Protein 4.2 L (6.2-8.2) g/dL Albumin 2.3 L (3.8-4.9) g/dL Albumin/Globulin Ratio 1.21 L (1.60-3.17) Ratio 09/11/23 09/11/23 09/11/23 Range/Units 00:13 06:00 06:54 RBC 3.55 L (4.40-5.60) X 10*6/uL Hgb 8.9 L (13.0-17.0) g/dL Hct 26.3 L (39.6-50.0) % MCV 74.1 L (80.0-97.0) FL MCH 25.1 L (27.0-32.0) pg RDW 16.0 H (11.5-14.5) % MPV 9.2 L (9.5-12.2) FL Sodium (135-145) mmol/L Potassium (3.5-5.5) mmol/L Carbon Dioxide (21.6-31.8) mmol/L Anion Gap (4.00-12.00) mmol/L Creatinine (0.6-1.5) mg/dL BUN/Creatinine Ratio (12.00-20.00) Ratio Glucose (70-110) mg/dL POC Glucose (mg/dL) 187 H 167 H (70-110) mg/dL Calcium (8.7-10.3) mg/dL Phosphorus (2.4-5.1) mg/dL Total Bilirubin (0.3-1.2) mg/dL Total Protein (6.2-8.2) g/dL Albumin (3.8-4.9) g/dL Albumin/Globulin Ratio (1.60-3.17) Ratio 09/11/23 Range/Units 06:54 RBC (4.40-5.60) X 10*6/uL Hgb (13.0-17.0) g/dL Hct (39.6-50.0) % MCV (80.0-97.0) FL MCH (27.0-32.0) pg RDW (11.5-14.5) % MPV (9.5-12.2) FL Sodium (135-145) mmol/L Potassium 3.0 L (3.5-5.5) mmol/L Carbon Dioxide (21.6-31.8) mmol/L Anion Gap (4.00-12.00) mmol/L Creatinine 0.5 L (0.6-1.5) mg/dL BUN/Creatinine Ratio 23.40 H (12.00-20.00) Ratio Glucose 120 H (70-110) mg/dL POC Glucose (mg/dL) (70-110) mg/dL Calcium 7.7 L (8.7-10.3) mg/dL Phosphorus 2.2 L (2.4-5.1) mg/dL Total Bilirubin (0.3-1.2) mg/dL Total Protein 4.3 L (6.2-8.2) g/dL Albumin 2.5 L (3.8-4.9) g/dL Albumin/Globulin Ratio 1.39 L (1.60-3.17) Ratio Assessment and Plan (1) Peritonitis Current Visit: Yes Status: Acute Code(s): K65.9 - PERITONITIS, UNSPECIFIED SNOMED Code(s): 60742547 (2) Small bowel perforation Current Visit: Yes Status: Acute Code(s): K63.1 - PERFORATION OF INTESTINE (NONTRAUMATIC) SNOMED Code(s): 153403548 Plan: 1patient is in the hospital with abdominal pain he did have a low-grade fever and has been diagnosed with a perforated small bowel status post laparotomy small bowel resection and [id number] duodenojejunostomy and concern for peritonitis likely organism need to cover with enteric gram-negative both aerobes and anaerobes 2-patient is afebrile white count normal, patient to continue with the Zosyn 3.37 g every 8 hours and monitor clinical course closely Dictation was produced using [employer] dictation software. please excuse any grammatical, word or spelling errors. Time with Patient: Less than 30
[2023-09-11 11:56] LABS: Glucose,Whole Blood 159 mg/dL (70-110)
--- NOTE | 2023-09-11 11:56 | P.PN ---
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 He presented to the emergency department on 09/04/2023 for reports of abdominal pain/discomfort. Upon arrival vital signs stable with BP 123/86, HR 84, RR 16, T 98.4 F, and SpO2 of 97% on room air. CBC showing WBC count of 10.7. BMP potassium of 2.7, chloride of 109, bicarb of 21, and anion gap of 5. Blood glucose was 97. Lactic acid was elevated at 2.1. Lipase elevated at 434. Urinalysis positive for protein, ketones, and 7 RBCs but negative for infection. CT abdomen and pelvis completed showing consolidation at the right lung base suspect possible aspiration versus atelectasis, and intussusception in the left lower quadrant contributing to suspected bowel obstruction with associated fluid distended colon. NG tube was placed and x-ray was completed to confirm placement. Patient admitted under our services for bowel intussusception with concerns of obstruction with consultation to general surgery. Initially small bowel obstruction was being managed conservatively with NG tube and IV fluid hydration for bowel rest. On 09/06/2023 patient accidentally pulled NG tube resulting in need for replacement and follow-up x-ray revealed free air in abdomen. Patient was taken to the OR and found to have peritonitis with small bowel perforation and underwent emergent small bowel resection with [id number]-[id number] duodenaljejunostomy. 09/10 Patient was seen and examined. Reports 9/10 pain in his abdomen. Dilaudid helps with the pain. Currently with NG tube draining bilious material. CBC Hg 8.9 Hct 27.8 MCV 79.3. CMP Na 134, bicab 15.2, AG 16.8, Cr 0.5, BUN/Cr 24.4, glu 177, Ca 7.7, T. Bili 0.2, alb 2.3. PICC inserted LUE by Vascular surgery and started on TPN. CXR done today shows correct positioning of the PICC and NG tube. 09/11 Patient was seen and examined. Continued abdominal pain, 9/10. Currently with NG tube draining bilious material. CBC Hg 8.9 Hct 26.3 MCV 74.1. CMP K 3, Cr 0.5, BUN/Cr 23.4, glu 120, Ca 7.7, alb 2.5. Phos 2.2. Mag 1.5. Vital signs reviewed and stable. General: Nontoxic, no acute distress. Emaciated, thin and frail build Derm: Skin warm and dry, normal coloration for ethnicity. Head: Atraumatic, normocephalic and symmetric. Eyes: EOMs intact, no lid lag, and anicteric sclera Cardiovascular: regular rate and rhythm with normal S1S2, no murmur Lungs: Respirations even, regular, and unlabored on room air. Lungs CTA bilaterally, no rhonchi, no rales, no wheezing, and no accessory muscle usage. Abdominal: soft distended diffuse tenderness upon palpation to lower quadrants. NG tube in place. Postsurgical dressing and abdominal binder in place. DEBORA drain in place. Ext: ROM intact. No gross muscle atrophy, no edema, no contractures Neuro: Speech clear, face symmetrical with no noted focal neuro deficits Psych: Alert and oriented to person, place, time, and situation. Appropriate and pleasant affect. Based on my assessment of this patient, this patient meets a high complexity level of care. Patient has an acute diagnosis of small bowel perforation with uncontrolled pain requiring Dilaudid around the clock that poses a threat to life or bodily function. Peritonitis with small bowel perforation status post emergent small bowel resection with [id number] duodenojejunostomy: NPO. Continue TPN. Dilaudid 1 mg IV Q3H PRN. 4g IV Tylenol ordered today. Zosyn 3.375 g IV TID (D5). Surgery and ID on board. Acute postsurgical blood loss anemia, status posttransfusion 1 unit PRBCs: Transfuse if Hg < 7. Hypokalemia: Replace via protocol. Hypomagnesemia: Replace via protocol. Right lung base consolidation, suspect aspiration versus atelectasis: Will consult speech and language pathology for swallow evaluation once NG tube is removed and testing can be completed. Aspiration precautions are in place. History of GERD with erosive esophagitis: Protonix 40 mg IV QD. History of gastritis: Protonix as above. Elevated lipase with history of chronic pancreatitis Severe protein calorie malnutrition with BMI of 16.9 kg/m History of pulmonary emboli CODE STATUS: FULL CODE. DVT Prophylaxis: Heparin SQ. GI Prophylaxis: Protonix IV Designated medical POA if patient is not able to make medical decisions for themselves: I have reviewed the following business info consultant notes: I have reviewed the results of the following tests: CBC. CMP. Mag. Phos I have ordered the following tests: CBC. CMP. Mag. Phos I have discussed the care of this patient with the following independent historian: I have independently interpreted the following test below: I have discussed the management of this patient with the following physician: Discussed with Dr. White at bedside. Objective - Vital Signs Vital signs: Vital Signs Temp 97.4 F L 09/11/23 01:42 Pulse 58 L 09/11/23 06:55 Resp 18 09/11/23 06:55 BP 116/77 09/11/23 06:55 Pulse Ox 100 09/11/23 06:55 FiO2 Intake & Output 09/10/23 09/11/23 09/11/23 18:59 06:59 18:59 Output Total 2240 350 320 Balance -2240 -350 -320 Weight 47.627 kg Output: Gastric Drainage 400 Drainage 440 350 120 Left Abdomen 60 20 Right Abdomen 380 350 100 Urine 1400 200 Other: Voiding Method Urinal - Labs CBC & Chem 7: 09/11/23 06:54 09/11/23 06:54 Labs: Abnormal Lab Results - Last 24 Hours (Table) 09/10/23 09/10/23 09/11/23 Range/Units 06:24 17:25 00:13 RBC (4.40-5.60) X 10*6/uL Hgb (13.0-17.0) g/dL Hct (39.6-50.0) % MCV (80.0-97.0) FL MCH (27.0-32.0) pg RDW (11.5-14.5) % MPV (9.5-12.2) FL Sodium 134 L (135-145) mmol/L Potassium (3.5-5.5) mmol/L Carbon Dioxide 15.2 L (21.6-31.8) mmol/L Anion Gap 16.80 H (4.00-12.00) mmol/L Creatinine 0.5 L (0.6-1.5) mg/dL BUN/Creatinine Ratio 24.40 H (12.00-20.00) Ratio Glucose 177 H (70-110) mg/dL POC Glucose (mg/dL) 175 H 187 H (70-110) mg/dL Calcium 7.7 L (8.7-10.3) mg/dL Phosphorus (2.4-5.1) mg/dL Total Bilirubin 0.2 L (0.3-1.2) mg/dL Total Protein 4.2 L (6.2-8.2) g/dL Albumin 2.3 L (3.8-4.9) g/dL Albumin/Globulin Ratio 1.21 L (1.60-3.17) Ratio 09/11/23 09/11/23 09/11/23 Range/Units 06:00 06:54 06:54 RBC 3.55 L (4.40-5.60) X 10*6/uL Hgb 8.9 L (13.0-17.0) g/dL Hct 26.3 L (39.6-50.0) % MCV 74.1 L (80.0-97.0) FL MCH 25.1 L (27.0-32.0) pg RDW 16.0 H (11.5-14.5) % MPV 9.2 L (9.5-12.2) FL Sodium (135-145) mmol/L Potassium 3.0 L (3.5-5.5) mmol/L Carbon Dioxide (21.6-31.8) mmol/L Anion Gap (4.00-12.00) mmol/L Creatinine 0.5 L (0.6-1.5) mg/dL BUN/Creatinine Ratio 23.40 H (12.00-20.00) Ratio Glucose 120 H (70-110) mg/dL POC Glucose (mg/dL) 167 H (70-110) mg/dL Calcium 7.7 L (8.7-10.3) mg/dL Phosphorus 2.2 L (2.4-5.1) mg/dL Total Bilirubin (0.3-1.2) mg/dL Total Protein 4.3 L (6.2-8.2) g/dL Albumin 2.5 L (3.8-4.9) g/dL Albumin/Globulin Ratio 1.39 L (1.60-3.17) Ratio
[2023-09-11] MEDS: POTASSIUM PHOSPHATE 10 MMOL in SODIUM CHLORIDE 0.9% 250 ML IV ONE (12:47)
[2023-09-11] MEDS: MAGNESIUM SULFATE-D5W PMX 1 GM in DEXTROSE/WATER 1 100ML.BAG IVPB SCH (12:48)
[2023-09-11] MEDS: MVI, ADULT NO.4 WITH VIT K 10 ML, TRACE (CONC-1ML/DOSE) 1 ML, POTASSIUM CHLORIDE 10 MEQ... IV SCH (13:16)
--- NOTE | 2023-09-11 14:10 | P.PN ---
Subjective Progress Note Date: 09/11/23 CHIEF COMPLAINT: Small bowel perforation HISTORY OF PRESENT ILLNESS: The patient is a 42-year-old male admitted with abdominal pain. He is status post exploratory laparotomy including small bowel resection for small bowel perforation. Patient complains of abdominal pain. Patient has TPN for nutrition support. He is sitting at bedside chair. He is having flatus. He reports a small stool. DEBORA drains with high output. Serosanguineous in color. Afebrile. WBC 8.89 Hgb 8.9 sodium 136 potassium 3.0 magnesium 1.5 PHYSICAL EXAM: VITAL SIGNS: Reviewed GENERAL: Well-developed in no acute distress. HEENT: No sclera icterus. Extraocular movements grossly intact. Moist buccal mucosa. Head is atraumatic, normocephalic. Hears conversational speech. No nasal drainage. NECK: Supple without lymphadenopathy. CHEST: Non-labored respirations and equal bilateral excursions. CARDIOVASCULAR: Palpable 2+ radial pulses. ABDOMEN: Softer today. Mild distention. Incision site dressing clean dry and intact. [address] NG tube with minimal bilious output. MUSCULOSKELETAL: No clubbing or cyanosis. NEUROLOGIC: No focal or lateralizing signs. Cranial nerves II through XII grossly intact. PSYCH: Appropriate affect. Alert and oriented to person, place and time. SKIN: Well perfused. Good skin turgor. ASSESSMENT: 1. Small bowel perforation 2. Underweight, BMI 16.9 3. Prolonged n.p.o. status 4. Inadequate protein intake 5. Hypokalemia and hypomagnesemia PLAN: -Continue NG tube for decompression -Keep patient n.p.o. -Continue to replace electrolytes -Continue TPN for nutrition support -Continue antibiotics -Continue pain management -Continue to monitor DEBORA drain output -Increase activity level -Encourage incentive spirometer use -Further recommendations forthcoming per surgeon -DVT prophylaxis subcu heparin Physician Hearing Therapist note has been reviewed by physician. Signing provider agrees with the documented findings, assessment, and plan of care. Objective - Vital Signs Vital signs: Vital Signs Temp 97.4 F L 09/11/23 01:42 Pulse 58 L 09/11/23 06:55 Resp 18 09/11/23 06:55 BP 116/77 09/11/23 06:55 Pulse Ox 100 09/11/23 06:55 FiO2 Intake & Output 09/10/23 09/11/23 09/11/23 18:59 06:59 18:59 Output Total 2240 350 320 Balance -2240 -350 -320 Weight 47.627 kg Output: Gastric Drainage 400 Drainage 440 350 120 Left Abdomen 60 20 Right Abdomen 380 350 100 Urine 1400 200 Other: Voiding Method Urinal - Labs CBC & Chem 7: 09/11/23 06:54 09/11/23 06:54 Labs: Abnormal Lab Results - Last 24 Hours (Table) 09/10/23 09/11/23 09/11/23 Range/Units 17:25 00:13 06:00 RBC (4.40-5.60) X 10*6/uL Hgb (13.0-17.0) g/dL Hct (39.6-50.0) % MCV (80.0-97.0) FL MCH (27.0-32.0) pg RDW (11.5-14.5) % MPV (9.5-12.2) FL Potassium (3.5-5.5) mmol/L Creatinine (0.6-1.5) mg/dL BUN/Creatinine Ratio (12.00-20.00) Ratio Glucose (70-110) mg/dL POC Glucose (mg/dL) 175 H 187 H 167 H (70-110) mg/dL Calcium (8.7-10.3) mg/dL Phosphorus (2.4-5.1) mg/dL Total Protein (6.2-8.2) g/dL Albumin (3.8-4.9) g/dL Albumin/Globulin Ratio (1.60-3.17) Ratio 09/11/23 09/11/23 09/11/23 Range/Units 06:54 06:54 11:54 RBC 3.55 L (4.40-5.60) X 10*6/uL Hgb 8.9 L (13.0-17.0) g/dL Hct 26.3 L (39.6-50.0) % MCV 74.1 L (80.0-97.0) FL MCH 25.1 L (27.0-32.0) pg RDW 16.0 H (11.5-14.5) % MPV 9.2 L (9.5-12.2) FL Potassium 3.0 L (3.5-5.5) mmol/L Creatinine 0.5 L (0.6-1.5) mg/dL BUN/Creatinine Ratio 23.40 H (12.00-20.00) Ratio Glucose 120 H (70-110) mg/dL POC Glucose (mg/dL) 159 H (70-110) mg/dL Calcium 7.7 L (8.7-10.3) mg/dL Phosphorus 2.2 L (2.4-5.1) mg/dL Total Protein 4.3 L (6.2-8.2) g/dL Albumin 2.5 L (3.8-4.9) g/dL Albumin/Globulin Ratio 1.39 L (1.60-3.17) Ratio Microbiology - Last 24 Hours (Table) 09/06/23 20:25 Anaerobic Culture - Final Other - Other
--- NOTE | 2023-09-11 14:42 | P.PN ---
Progress Note - Text Progress Note Date: 09/11/23 Discussed case with operating surgeon including findings. Overall patient clinically doing well. We'll remove the nasogastric tube and start diet as discussed with operating surgeon.
[2023-09-11 16:45] LABS: Glucose,Whole Blood 173 mg/dL (70-110)
[2023-09-11] MEDS: HYDROmorphone 1 MG/ML 1 ML SYRINGE IVP PRN (17:15)
[2023-09-12 00:17] LABS: Glucose,Whole Blood 186 mg/dL (70-110)
[2023-09-12 06:15] LABS: Glucose,Whole Blood 129 mg/dL (70-110)
[2023-09-12 08:01] LABS: African American GFR (CKD) >90 (>60 ml/min/1.73 sqM); Anion Gap 4 mmol/L; Blood Urea Nitrogen 14 mg/dL (9-20); Calcium 7.4 mg/dL (8.4-10.2); Carbon Dioxide 26 mmol/L (22-30); Chloride 102 mmol/L (98-107); Glucose 110 mg/dL (74-99); Magnesium 1.7 mg/dL (1.6-2.3); Non-African American GFR(CKD) >90 (>60 ml/min/1.73 sqM); Phosphorus 2.6 mg/dL (2.5-4.5); Potassium 3.5 mmol/L (3.5-5.1); Sodium 132 mmol/L (137-145)
[2023-09-12] MEDS: MAGNESIUM SULFATE-D5W PMX 1 GM in DEXTROSE/WATER 1 100ML.BAG IVPB SCH (10:32)
[2023-09-12] MEDS: ZINC OXIDE PASTE (Z-GUARD) 1 APPLIC TOPICAL PRN (10:33)
--- NOTE | 2023-09-12 11:16 | P.PN ---
Subjective Progress Note Date: 09/12/23 CHIEF COMPLAINT: Small bowel perforation HISTORY OF PRESENT ILLNESS: The patient is a 42-year-old male status post exploratory laparotomy for small bowel perforation at ligament of Treitz. He is tolerating full liquid diet. He reports some mild abdominal discomfort. He is taking it slow with eating. No bowel movement today. ROS: No reports of nausea and vomiting. No fevers or chills. No new chest pain. No productive sputum. Underweight, BMI 16.9 PHYSICAL EXAM: VITAL SIGNS: Reviewed CONSTITUTIONAL: Well developed and in no acute distress. EYES: Conjuctivae without sclera icterus. Extraocular movements grossly intact. HEAD, EARS, NOSE, THROAT: Moist buccal mucosa. Head is atraumatic, normocephalic. Hears conversational speech. No nasal drainage. RESPIRATORY: Non-labored respirations and equal bilateral excursions. CARDIOVASCULAR: Palpable 2+ radial pulses. ABDOMEN: Midline incision dressing intact. DEBORA serosanguineous x 2 serosanguineous increase on the right decreased on left. MUSCULOSKELETAL: No gross deformity of the lower extremities noted. No clubbing. No cyanosis. SKIN: Good skin turgor. Well perfused. NEUROLOGIC: Cranial nerves II through XII grossly intact. No focal or lateralizing signs. PSYCH: Appropriate affect. Alert and oriented to person, place and time. CLINICAL LABS: Reviewed. WBC within normal limits ASSESSMENT: 1. Small bowel perforation 2. Underweight, BMI 16.9 3. Prolonged n.p.o. status 4. Inadequate protein intake PLAN: 1. He tolerated full liquid diet. Low fiber diet described and will advance. 2. Recommend caloric intake monitoring due to pre-existing underweight 3. Antibiotic management per infectious disease 4. Continue DEBORA drain 5. Continue inpatient hospitalization Objective - Vital Signs Vital signs: Vital Signs Temp 97.4 F L 09/12/23 07:16 Pulse 94 09/12/23 07:16 Resp 17 09/12/23 07:16 BP 130/88 09/12/23 07:16 Pulse Ox 95 09/12/23 07:16 FiO2 Intake & Output 09/11/23 09/12/23 09/12/23 18:59 06:59 18:59 Intake Total 948.617 Output Total 1430 1385 85 Balance -1430 -1385 863.617 Weight 47.627 kg Intake: Intake, IV Titration 948.617 Amount Mvi, Adult No.4 with Vit 948.617 K 10 ml Trace (Conc-1Ml/ Dose) 1 ml Potassium Chloride 10 meq In Amino Acid 5%-D15w+Lytes*E* 1, 000 ml @ 47 mls/hr IV . [id number] [facility] Rx#:[id number] Output: Gastric Drainage 500 Drainage 330 310 85 Left Abdomen 20 10 Right Abdomen 310 300 85 Urine 600 1075 Other: Voiding Method Urinal - Labs CBC & Chem 7: 09/11/23 06:54 09/12/23 06:45 Labs: Abnormal Lab Results - Last 24 Hours (Table) 09/11/23 09/11/23 09/12/23 Range/Units 11:54 16:44 00:15 Sodium (137-145) mmol/L Creatinine (0.66-1.25) mg/dL Glucose (74-99) mg/dL POC Glucose (mg/dL) 159 H 173 H 186 H (70-110) mg/dL Calcium (8.4-10.2) mg/dL 09/12/23 09/12/23 Range/Units 06:14 06:45 Sodium 132 L (137-145) mmol/L Creatinine 0.40 L (0.66-1.25) mg/dL Glucose 110 H (74-99) mg/dL POC Glucose (mg/dL) 129 H (70-110) mg/dL Calcium 7.4 L (8.4-10.2) mg/dL Microbiology - Last 24 Hours (Table) 09/06/23 20:25 Anaerobic Culture - Final Other - Other
[2023-09-12 11:37] LABS: Glucose,Whole Blood 238 mg/dL (70-110)
--- NOTE | 2023-09-12 12:18 | P.PN ---
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 He presented to the emergency department on 09/04/2023 for reports of abdominal pain/discomfort. Upon arrival vital signs stable with BP 123/86, HR 84, RR 16, T 98.4 F, and SpO2 of 97% on room air. CBC showing WBC count of 10.7. BMP potassium of 2.7, chloride of 109, bicarb of 21, and anion gap of 5. Blood glucose was 97. Lactic acid was elevated at 2.1. Lipase elevated at 434. Urinalysis positive for protein, ketones, and 7 RBCs but negative for infection. CT abdomen and pelvis completed showing consolidation at the right lung base suspect possible aspiration versus atelectasis, and intussusception in the left lower quadrant contributing to suspected bowel obstruction with associated fluid distended colon. NG tube was placed and x-ray was completed to confirm placement. Patient admitted under our services for bowel intussusception with concerns of obstruction with consultation to general surgery. Initially small bowel obstruction was being managed conservatively with NG tube and IV fluid hydration for bowel rest. On 09/06/2023 patient accidentally pulled NG tube resulting in need for replacement and follow-up x-ray revealed free air in abdomen. Patient was taken to the OR and found to have peritonitis with small bowel perforation and underwent emergent small bowel resection with [id number] duodenaljejunostomy. 09/10 Patient was seen and examined. Reports 9/10 pain in his abdomen. Dilaudid helps with the pain. Currently with NG tube draining bilious material. CBC Hg 8.9 Hct 27.8 MCV 79.3. CMP Na 134, bicab 15.2, AG 16.8, Cr 0.5, BUN/Cr 24.4, glu 177, Ca 7.7, T. Bili 0.2, alb 2.3. PICC inserted LUE by Vascular surgery and started on TPN. CXR done today shows correct positioning of the PICC and NG tube. 09/11 Patient was seen and examined. Continued abdominal pain, 9/10. Currently with NG tube draining bilious material. CBC Hg 8.9 Hct 26.3 MCV 74.1. CMP K 3, Cr 0.5, BUN/Cr 23.4, glu 120, Ca 7.7, alb 2.5. Phos 2.2. Mag 1.5. 09/12 Patient was seen and examined. Unchanged abdominal pain. NG tube discontinued yesterday and started on FLD. Tolerating FLD, switched to low fiber by Surgery. BMP Na 132, Cr 0.4, glu 110, Ca 7.4. Mag 1.7. Vital signs reviewed and stable. General: Nontoxic, no acute distress. Emaciated, thin and frail build Derm: Skin warm and dry, normal coloration for ethnicity. Head: Atraumatic, normocephalic and symmetric. Eyes: EOMs intact, no lid lag, and anicteric sclera Cardiovascular: regular rate and rhythm with normal S1S2, no murmur Lungs: Respirations even, regular, and unlabored on room air. Lungs CTA bilaterally, no rhonchi, no rales, no wheezing, and no accessory muscle usage. Abdominal: soft distended diffuse tenderness upon palpation to lower quadrants. NG tube in place. Postsurgical dressing and abdominal binder in place. DEBORA drain in place. Ext: ROM intact. No gross muscle atrophy, no edema, no contractures Neuro: Speech clear, face symmetrical with no noted focal neuro deficits Psych: Alert and oriented to person, place, time, and situation. Appropriate and pleasant affect. Based on my assessment of this patient, this patient meets a high complexity level of care. Patient has an acute diagnosis of small bowel perforation with uncontrolled pain requiring Dilaudid around the clock that poses a threat to life or bodily function. Peritonitis with small bowel perforation status post emergent small bowel resection with [id number] duodenojejunostomy: NPO. Continue TPN. Dilaudid 1 mg IV Q3H PRN. 4g IV Tylenol ordered today. Zosyn 3.375 g IV TID (D6). Surgery and ID on board. Acute postsurgical blood loss anemia, status posttransfusion 1 unit PRBCs: Transfuse if Hg < 7. Right lung base consolidation, suspect aspiration versus atelectasis: Will consult speech and language pathology for swallow evaluation once NG tube is removed and testing can be completed. Aspiration precautions are in place. History of GERD with erosive esophagitis: Protonix 40 mg IV QD. History of gastritis: Protonix as above. Elevated lipase with history of chronic pancreatitis Severe protein calorie malnutrition with BMI of 16.9 kg/m History of pulmonary emboli CODE STATUS: FULL CODE. DVT Prophylaxis: Heparin SQ. GI Prophylaxis: Protonix IV Designated medical POA if patient is not able to make medical decisions for themselves: I have reviewed the following outside solar sales consultant notes: I have reviewed the results of the following tests: BMP. I have ordered the following tests: I have discussed the care of this patient with the following independent historian: I have independently interpreted the following test below: I have discussed the management of this patient with the following physician: Objective - Vital Signs Vital signs: Vital Signs Temp 97.4 F L 09/12/23 07:16 Pulse 94 09/12/23 07:16 Resp 17 09/12/23 07:16 BP 130/88 09/12/23 07:16 Pulse Ox 95 09/12/23 07:16 FiO2 Intake & Output 09/11/23 09/12/23 09/12/23 18:59 06:59 18:59 Intake Total 948.617 Output Total 1430 1385 85 Balance -1430 -1385 863.617 Weight 47.627 kg Intake: Intake, IV Titration 948.617 Amount Mvi, Adult No.4 with Vit 948.617 K 10 ml Trace (Conc-1Ml/ Dose) 1 ml Potassium Chloride 10 meq In Amino Acid 5%-D15w+Lytes*E* 1, 000 ml @ 47 mls/hr IV . [id number] [facility] Rx#:[id number] Output: Gastric Drainage 500 Drainage 330 310 85 Left Abdomen 20 10 Right Abdomen 310 300 85 Urine 600 1075 Other: Voiding Method Urinal - Labs CBC & Chem 7: 09/11/23 06:54 09/12/23 06:45 Labs: Abnormal Lab Results - Last 24 Hours (Table) 09/11/23 09/12/23 09/12/23 Range/Units 16:44 00:15 06:14 Sodium (137-145) mmol/L Creatinine (0.66-1.25) mg/dL Glucose (74-99) mg/dL POC Glucose (mg/dL) 173 H 186 H 129 H (70-110) mg/dL Calcium (8.4-10.2) mg/dL 09/12/23 09/12/23 Range/Units 06:45 11:35 Sodium 132 L (137-145) mmol/L Creatinine 0.40 L (0.66-1.25) mg/dL Glucose 110 H (74-99) mg/dL POC Glucose (mg/dL) 238 H (70-110) mg/dL Calcium 7.4 L (8.4-10.2) mg/dL Microbiology - Last 24 Hours (Table) 09/06/23 20:25 Anaerobic Culture - Final Other - Other
--- NOTE | 2023-09-12 14:59 | P.PN ---
Subjective Progress Note Date: 09/12/23 Principal diagnosis: Reason for follow-up is abdominal sepsis/peritonitis Patient is a 42-year-old -[place] male with a past medical history significant for right-sided jaw cancer diagnosed in May 2021 that has been treated with chemoradiation patient did have a trach and PEG that was subsequently removed history of alcohol disorder and chronic pancreatitis patien t presenting to the hospital for evaluation abdominal pain has been diagnosed with small bowel perforation status post laparotomy resection of the small bowel and [id number] duodenojejunostomy, ID consulted for management of antibiotic for abdominal sepsis peritonitis. On today's evaluation that is 09/12/2023, the patient continues to be afebrile, the patient is on room air and breathing comfortably, the Pt denies having any chest pain or cough, the patient denies abdominal pain with decreased intensity some nausea but no vomiting no bowel movement. Patient did have a creatinine of 0.40 Objective - Vital Signs Vital signs: Vital Signs Temp 97.4 F L 09/12/23 07:16 Pulse 94 09/12/23 07:16 Resp 17 09/12/23 07:16 BP 130/88 09/12/23 07:16 Pulse Ox 95 09/12/23 07:16 FiO2 Intake & Output 09/11/23 09/12/23 09/12/23 18:59 06:59 18:59 Intake Total 948.617 Output Total 1430 1385 155 Balance -1430 -1385 793.617 Weight 47.627 kg 47.627 kg Intake: Intake, IV Titration 948.617 Amount Mvi, Adult No.4 with Vit 948.617 K 10 ml Trace (Conc-1Ml/ Dose) 1 ml Potassium Chloride 10 meq In Amino Acid 5%-D15w+Lytes*E* 1, 000 ml @ 47 mls/hr IV . [id number] [facility] Rx#:[id number] Output: Gastric Drainage 500 Drainage 330 310 155 Left Abdomen 20 10 Right Abdomen 310 300 155 Urine 600 1075 Other: Voiding Method Urinal - Exam GENERAL DESCRIPTION: Middle-age male lying in bed in no distress RESPIRATORY SYSTEM: Unlabored breathing , decreased breath sounds at bases HEART: S1 S2 regular rate and rhythm , ABDOMEN: Soft , mild tenderness EXTREMITIES: No edema feet - Labs CBC & Chem 7: 02/15/24 06:54 09/12/23 06:45 Labs: Abnormal Lab Results - Last 24 Hours (Table) 09/11/23 09/12/23 09/12/23 Range/Units 16:44 00:15 06:14 Sodium (137-145) mmol/L Creatinine (0.66-1.25) mg/dL Glucose (74-99) mg/dL POC Glucose (mg/dL) 173 H 186 H 129 H (70-110) mg/dL Calcium (8.4-10.2) mg/dL 09/12/23 09/12/23 Range/Units 06:45 11:35 Sodium 132 L (137-145) mmol/L Creatinine 0.40 L (0.66-1.25) mg/dL Glucose 110 H (74-99) mg/dL POC Glucose (mg/dL) 238 H (70-110) mg/dL Calcium 7.4 L (8.4-10.2) mg/dL Microbiology - Last 24 Hours (Table) 09/06/23 20:25 Anaerobic Culture - Final Other - Other Assessment and Plan (1) Peritonitis Current Visit: Yes Status: Acute Code(s): K65.9 - PERITONITIS, UNSPECIFIED SNOMED Code(s): 05435830 (2) Small bowel perforation Current Visit: Yes Status: Acute Code(s): K63.1 - PERFORATION OF INTESTINE (NONTRAUMATIC) SNOMED Code(s): 555608834 Plan: 1patient is in the hospital with abdominal pain he did have a low-grade fever and has been diagnosed with a perforated small bowel status post laparotomy small bowel resection and [id number] duodenojejunostomy and concern for peritonitis likely organism need to cover with enteric gram-negative both aerobes and anaerobes 2-patient is afebrile white count normal, patient did have minimal clinical pulmonary continue with the Zosyn and monitor clinical course closely Dictation was produced using [employer] dictation software. please excuse any grammatical, word or spelling errors. Time with Patient: Less than 30
[2023-09-12 16:59] LABS: Glucose,Whole Blood 212 mg/dL (70-110)
[2023-09-12 20:52] LABS: Glucose,Whole Blood 189 mg/dL (70-110)
[2023-09-13 00:02] LABS: Glucose,Whole Blood 179 mg/dL (70-110)
[2023-09-13 05:22] LABS: Glucose,Whole Blood 189 mg/dL (70-110)
[2023-09-13] MEDS: MVI, ADULT NO.4 WITH VIT K 10 ML, TRACE (CONC-1ML/DOSE) 1 ML, POTASSIUM CHLORIDE 10 MEQ... IV SCH (05:25)
[2023-09-13 06:44] LABS: African American GFR (CKD) >90 (>60 ml/min/1.73 sqM); Anion Gap 2 mmol/L; Blood Urea Nitrogen 19 mg/dL (9-20); Calcium 7.5 mg/dL (8.4-10.2); Carbon Dioxide 25 mmol/L (22-30); Chloride 102 mmol/L (98-107); Glucose 130 mg/dL (74-99); Magnesium 1.7 mg/dL (1.6-2.3); Non-African American GFR(CKD) >90 (>60 ml/min/1.73 sqM); Phosphorus 2.3 mg/dL (2.5-4.5); Potassium 3.6 mmol/L (3.5-5.1); Sodium 129 mmol/L (137-145)
[2023-09-13 11:51] LABS: Glucose,Whole Blood 337 mg/dL (70-110)
--- NOTE | 2023-09-13 12:07 | P.PN ---
Subjective Progress Note Date: 09/13/23 Principal diagnosis: Reason for follow-up is abdominal sepsis/peritonitis Patient is a 42-year-old -[place] male with a past medical history significant for right-sided jaw cancer diagnosed in May 2021 that has been treated with chemoradiation patient did have a trach and PEG that was subsequently removed history of alcohol disorder and chronic pancreatitis patien t presenting to the hospital for evaluation abdominal pain has been diagnosed with small bowel perforation status post laparotomy resection of the small bowel and [id number] duodenojejunostomy, ID consulted for management of antibiotic for abdominal sepsis peritonitis. On today's evaluation that is 09/13/2023, Patient is afebrile patient is currently on room air and denies having any shortness of breath, the patient denies any chest pain did have occasional cough NG has been discontinued denies any nausea vomiting abdominal pain controlled on pain medication did not have any bowel movement. Patient creatinine 0.44 no CBC today Objective - Vital Signs Vital signs: Vital Signs Temp 97.2 F L 09/13/23 07:08 Pulse 85 09/13/23 09:00 Resp 19 09/13/23 09:00 BP 117/71 09/13/23 07:08 Pulse Ox 100 09/13/23 07:08 FiO2 Intake & Output 09/12/23 09/13/23 09/13/23 18:59 06:59 18:59 Intake Total 948.617 Output Total 447 1630 715 Balance 501.617 -1630 -715 Weight 47.627 kg Intake: Intake, IV Titration 948.617 Amount Mvi, Adult No.4 with Vit 948.617 K 10 ml Trace (Conc-1Ml/ Dose) 1 ml Potassium Chloride 10 meq In Amino Acid 5%-D15w+Lytes*E* 1, 000 ml @ 47 mls/hr IV . [id number] [facility] Rx#:[id number] Output: Drainage 247 380 240 Left Abdomen 2 Right Abdomen 245 380 240 Urine 200 1250 475 Other: Voiding Method Urinal - Exam GENERAL DESCRIPTION: Middle-age male lying in bed in no distress RESPIRATORY SYSTEM: Unlabored breathing , decreased breath sounds at bases HEART: S1 S2 regular rate and rhythm , ABDOMEN: Soft , mild tenderness EXTREMITIES: No edema feet - Labs CBC & Chem 7: 09/11/23 06:54 09/13/23 05:51 Labs: Abnormal Lab Results - Last 24 Hours (Table) 09/12/23 09/12/23 09/13/23 Range/Units 16:58 20:49 00:00 Sodium (137-145) mmol/L Creatinine (0.66-1.25) mg/dL Glucose (74-99) mg/dL POC Glucose (mg/dL) 212 H 189 H 179 H (70-110) mg/dL Calcium (8.4-10.2) mg/dL Phosphorus (2.5-4.5) mg/dL 09/13/23 09/13/23 09/13/23 Range/Units 05:20 05:51 11:50 Sodium 129 L (137-145) mmol/L Creatinine 0.44 L (0.66-1.25) mg/dL Glucose 130 H (74-99) mg/dL POC Glucose (mg/dL) 189 H 337 H (70-110) mg/dL Calcium 7.5 L (8.4-10.2) mg/dL Phosphorus 2.3 L (2.5-4.5) mg/dL Assessment and Plan (1) Peritonitis Current Visit: Yes Status: Acute Code(s): K65.9 - PERITONITIS, UNSPECIFIED SNOMED Code(s): 54932738 (2) Small bowel perforation Current Visit: Yes Status: Acute Code(s): K63.1 - PERFORATION OF INTESTINE (NONTRAUMATIC) SNOMED Code(s): 932855356 Plan: 1patient is in the hospital with abdominal pain he did have a low-grade fever and has been diagnosed with a perforated small bowel status post laparotomy small bowel resection and [id number] duodenojejunostomy and concern for peritonitis likely organism need to cover with enteric gram-negative both aerobes and anaerobes 2-patient is afebrile white count normal, he is slowly clinically improving and did have a removal of his NG but no vomiting he is covered with the Zosyn to continue waiting for resumption of the bowel activity before transition to oral antibiotics Dictation was produced using [employer] dictation software. please excuse any grammatical, word or spelling errors.
[2023-09-13] MEDS: MAGNESIUM SULFATE-D5W PMX 1 GM in DEXTROSE/WATER 1 100ML.BAG IVPB SCH (13:46)
[2023-09-13] MEDS: SODIUM PHOSPHATE 15 MMOL in DEXTROSE 5% IN WATER 250 ML IVPB ONE (14:14)
--- NOTE | 2023-09-13 15:03 | P.PN ---
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 He presented to the emergency department on 09/04/2023 for reports of abdominal pain/discomfort. He underwent full evaluation in the emergency department. Upon arrival vital signs stable with blood pressure 123/86, heart rate 84, respiratory rate 16, temp 98.4 F, and SpO2 of 97% on room air. Labs completed and reviewed. CBC showing leukocytosis with WBC count of 10.7. BMP revealing hypokalemia with potassium of 2.7, hyperchloremia with chloride of 109, hypocarbia with bicarb of 21, and anion gap of 5. Blood glucose was 97. Lactic acid was elevated at 2.1. Lipase elevated at 434. Urinalysis positive for protein, ketones, and 7 RBCs but negative for infection. CT abdomen and pelvis completed showing consolidation at the right lung base suspect possible aspiration versus atelectasis, and intussusception in the left lower quadrant contributing to suspected bowel obstruction with associated fluid distended colon. NG tube was placed and x-ray was completed to confirm placement. Patien t admitted under our services for bowel intussusception with concerns of obstruction with consultation to general surgery. Initially small bowel obstruction was being managed conservatively with NG tube and IV fluid hydration for bowel rest. On 09/06/2023 patient accidentally pulled NG tube resulting in need for replacement and follow-up x-ray revealed free air in abdomen. General surgery was notified immediately. Patient was taken to the OR and found to have peritonitis with small bowel perforation and underwent emergent small bowel resection with mqjx-qg-[id number] duodenaljejunostomy. Physical exam: Patient is postoperative day 7. He reports passing flatus but denies having bowel movement during this hospitalization.. He reports constant feeling of fullness and states very little appetite secondary to reports of abdominal pain upon eating. He denies having any headache, lightheadedness, dizziness, chest pain, palpitations, or shortness of breath. Patient denies any episodes of nausea or vomiting. Vital signs reviewed and stable. General: Nontoxic, no acute distress. Emaciated, thin and frail build Derm: Skin warm and dry, normal coloration for ethnicity. Head: Atraumatic, normocephalic and symmetric. Eyes: EOMs intact, no lid lag, and anicteric sclera Mouth: no lip lesions, mucus membranes moist Cardiovascular: regular rate and rhythm with normal S1S2, no murmur, positive posterior tibial pulses bilaterally, and cap refill < 2 seconds. Lungs: Respirations even, regular, and unlabored on room air. Lungs CTA bilaterally, no rhonchi, no rales, no wheezing, and no accessory muscle usage. Abdominal: soft distended diffuse tenderness upon palpation to lower quadrants. Postsurgical dressing intact to midline abdomen and abdominal binder in place. DEBORA drains x2 remain in place. Ext: ROM intact. No gross muscle atrophy, no edema, no contractures Neuro: Speech clear, face symmetrical and CN II-XII grossly intact with no noted focal neuro deficits Psych: Alert and oriented to person, place, time, and situation. Appropriate and pleasant affect. Assessment and Plan of Care: Peritonitis with small bowel perforation status post emergent small bowel rese ction with [id number] duodenojejunostomy Acute postsurgical blood loss anemia, status posttransfusion 1 unit PRBCs Hyponatremia Hypomagnesemia History of GERD with erosive esophagitis History of gastritis Elevated lipase with history of chronic pancreatitis Lactic acidosis, resolved High-anion gap metabolic acidosis, resolved Severe protein calorie malnutrition with BMI of 16.9 kg/m Patient to continue IV antibiotics with Zosyn 3.375 g every 8 hours Dietary following, TPN and lipids to be discontinued once patient is tolerating his advanced that was advanced to low fiber diet on 09/12/2023 Status post 1 unit PRBCs. Globin stable. Cultures were obtained during surgical procedure, showing no growth to date. NG tube discontinued on 09/12/2023 General surgery following, reviewed documentation in chart Symptomatic care and pain management. Zofran 4 mg IVP every 8 hours as needed for nausea and/or vomiting and Dilaudid 1 mg every 3 hours as needed for pain. Continue Protonix 40 mg IVP daily Continue glycemic protocol with iyiub-vg-igvl glucose checks to be completed every 6 hours Right lung base consolidation, suspect aspiration versus atelectasis -Patient denies shortness of breath, cough, or congestion. Does report recent episodes of vomiting which is likely cause of possible aspiration. SPO2 100% on room air. Will continue to monitor. -Consult placed to speech and language pathology for swallow evaluation now that NG tube has been removed and testing can be completed. -Aspiration precautions are in place. History of pulmonary emboli -Patient was undergoing cancer treatments during this time, considered provoked PE. -DVT prophylaxis with heparin 5000 units subcutaneously every 8 hours. Hypokalemia, resolved Data reviewed: Labs completed and reviewed. BMP showing hyponatremia with sodium of 129. Calcium 7.5 but corrected calcium is 8.7. Magnesium also slightly low at 1.7. Patient receiving TPN and lipids which should accurately correct sodium and magnesium levels. Vital signs were reviewed. Blood pressure 117/71, heart rate 85, respiratory rate 19 temp 97.2 F, and SpO2 of 100% on room air. Documented urinary output over the past 24 hours was 1450 cc. CODE STATUS: Full code DVT prophylaxis: Heparin Anticipated discharge date: Clinical course to determine Anticipated discharge place: Clinical course to determine Patient was seen independently by Nurse Pracitioner. This document was prepared using [employer] dictation software. Please allow for errors in [place], while rare they do occur This patient was seen independently by Anoop MENESES. I agree with the assessment and plan done by my colleague. Objective - Vital Signs Vital signs: Vital Signs Temp 97.2 F L 09/13/23 07:08 Pulse 85 09/13/23 07:08 Resp 19 09/13/23 07:08 BP 117/71 09/13/23 07:08 Pulse Ox 100 09/13/23 07:08 FiO2 Intake & Output 09/12/23 09/13/23 09/13/23 18:59 06:59 18:59 Intake Total 948.617 Output Total 447 1630 300 Balance 501.617 -1630 -300 Weight 47.627 kg Intake: Intake, IV Titration 948.617 Amount Mvi, Adult No.4 with Vit 948.617 K 10 ml Trace (Conc-1Ml/ Dose) 1 ml Potassium Chloride 10 meq In Amino Acid 5%-D15w+Lytes*E* 1, 000 ml @ 47 mls/hr IV . [id number] [facility] Rx#:[id number] Output: Drainage 247 380 Left Abdomen 2 Right Abdomen 245 380 Urine 200 1250 300 - Labs CBC & Chem 7: 09/15/23 01:54 09/14/23 05:58 Labs: Abnormal Lab Results - Last 24 Hours (Table) 09/12/23 09/12/23 09/12/23 Range/Units 11:35 16:58 20:49 Sodium (137-145) mmol/L Creatinine (0.66-1.25) mg/dL Glucose (74-99) mg/dL POC Glucose (mg/dL) 238 H 212 H 189 H (70-110) mg/dL Calcium (8.4-10.2) mg/dL Phosphorus (2.5-4.5) mg/dL 09/13/23 09/13/23 09/13/23 Range/Units 00:00 05:20 05:51 Sodium 129 L (137-145) mmol/L Creatinine 0.44 L (0.66-1.25) mg/dL Glucose 130 H (74-99) mg/dL POC Glucose (mg/dL) 179 H 189 H (70-110) mg/dL Calcium 7.5 L (8.4-10.2) mg/dL Phosphorus 2.3 L (2.5-4.5) mg/dL
[2023-09-13 16:42] LABS: Glucose,Whole Blood 240 mg/dL (70-110)
--- NOTE | 2023-09-13 16:44 | P.PN ---
Subjective Progress Note Date: 09/13/23 Principal diagnosis: POD 7 after small bowel resection/anastomosis for proximal jejunal perforation Feels better, incisional discomfort Objective - Vital Signs Vital signs: Vital Signs Temp 98.6 F 09/13/23 14:38 Pulse 104 H 09/13/23 14:38 Resp 18 09/13/23 14:38 BP 119/79 09/13/23 14:38 Pulse Ox 100 09/13/23 14:38 FiO2 Intake & Output 09/12/23 09/13/23 09/13/23 18:59 06:59 18:59 Intake Total 948.617 Output Total 447 1630 850 Balance 501.617 -1630 -850 Weight 47.627 kg 47.627 kg Intake: Intake, IV Titration 948.617 Amount Mvi, Adult No.4 with Vit 948.617 K 10 ml Trace (Conc-1Ml/ Dose) 1 ml Potassium Chloride 10 meq In Amino Acid 5%-D15w+Lytes*E* 1, 000 ml @ 47 mls/hr IV . [id number] [facility] Rx#:[id number] Output: Drainage 247 380 375 Left Abdomen 2 Right Abdomen 245 380 375 Urine 200 1250 475 Other: Voiding Method Urinal - Exam Abdomen OK Serous fluid from drains Cultures no growth - Labs CBC & Chem 7: 09/11/23 06:54 09/13/23 05:51 Labs: Abnormal Lab Results - Last 24 Hours (Table) 09/12/23 09/12/23 09/13/23 Range/Units 16:58 20:49 00:00 Sodium (137-145) mmol/L Creatinine (0.66-1.25) mg/dL Glucose (74-99) mg/dL POC Glucose (mg/dL) 212 H 189 H 179 H (70-110) mg/dL Calcium (8.4-10.2) mg/dL Phosphorus (2.5-4.5) mg/dL 09/13/23 09/13/23 09/13/23 Range/Units 05:20 05:51 11:50 Sodium 129 L (137-145) mmol/L Creatinine 0.44 L (0.66-1.25) mg/dL Glucose 130 H (74-99) mg/dL POC Glucose (mg/dL) 189 H 337 H (70-110) mg/dL Calcium 7.5 L (8.4-10.2) mg/dL Phosphorus 2.3 L (2.5-4.5) mg/dL Assessment and Plan Assessment: Both drains end in the pelvis so one drain could be removed. The left could be removed. The right one is in the vicinity of the anastomosis. continue TPN Consider d/c of antibiotic review path for insight on cause of perforation Time with Patient: Less than 30
[2023-09-14 01:29] LABS: Glucose,Whole Blood 168 mg/dL (70-110)
[2023-09-14] MEDS: MVI, ADULT NO.4 WITH VIT K 10 ML, TRACE (CONC-1ML/DOSE) 1 ML, SODIUM CHLORIDE 4MEQ/ML V... IV SCH (01:59)
[2023-09-14] MEDS ORDERED: MVI, ADULT NO.4 WITH VIT K 10 ML, TRACE (CONC-1ML/DOSE) 1 ML, SODIUM CHLORIDE 4MEQ/ML V... IV SCH (03:00)
[2023-09-14 06:10] LABS: Glucose,Whole Blood 190 mg/dL (70-110)
[2023-09-14 06:27] LABS: ALT 14 U/L (4-49); AST 25 U/L (17-59); African American GFR (CKD) >90 (>60 ml/min/1.73 sqM); Albumin 2.1 g/dL (3.5-5.0); Alkaline Phosphatase 73 U/L (38-126); Anion Gap 2 mmol/L; Blood Urea Nitrogen 20 mg/dL (9-20); Calcium 7.5 mg/dL (8.4-10.2); Carbon Dioxide 26 mmol/L (22-30); Chloride 104 mmol/L (98-107); Globulin 2.2 g/dL; Glucose 150 mg/dL (74-99); Magnesium 1.8 mg/dL (1.6-2.3); Non-African American GFR(CKD) >90 (>60 ml/min/1.73 sqM); Phosphorus 2.8 mg/dL (2.5-4.5); Sodium 132 mmol/L (137-145); Total Bilirubin 0.4 mg/dL (0.2-1.3); Total Protein 4.3 g/dL (6.3-8.2)
--- NOTE | 2023-09-14 09:19 | P.PN ---
Subjective Progress Note Date: 09/14/23 Patient states he feels better. He still has some complaints abdominal pain. He is tolerating diet. On exam vital signs appear stable. Abdomen soft. Incisions clean dry intact. Status post small bowel resection. Patient continue receive supportive care. Objective - Vital Signs Vital signs: Vital Signs Temp 98.3 F 09/14/23 07:08 Pulse 101 H 09/14/23 07:08 Resp 18 09/14/23 07:08 BP 148/84 09/14/23 07:08 Pulse Ox 100 09/14/23 07:08 FiO2 Intake & Output 09/13/23 09/14/23 09/14/23 18:59 06:59 18:59 Output Total 1175 1590 Balance -1175 -1590 Weight 47.627 kg Output: Drainage 375 340 Right Abdomen 375 340 Urine 800 1250 Other: Voiding Method Urinal - Labs CBC & Chem 7: 09/11/23 06:54 09/14/23 05:58 Labs: Abnormal Lab Results - Last 24 Hours (Table) 09/13/23 09/13/23 09/14/23 Range/Units 11:50 16:41 01:16 Sodium (137-145) mmol/L Creatinine (0.66-1.25) mg/dL Glucose (74-99) mg/dL POC Glucose (mg/dL) 337 H 240 H 168 H (70-110) mg/dL Calcium (8.4-10.2) mg/dL Total Protein (6.3-8.2) g/dL Albumin (3.5-5.0) g/dL 09/14/23 09/14/23 Range/Units 05:58 06:07 Sodium 132 L (137-145) mmol/L Creatinine 0.49 L (0.66-1.25) mg/dL Glucose 150 H (74-99) mg/dL POC Glucose (mg/dL) 190 H (70-110) mg/dL Calcium 7.5 L (8.4-10.2) mg/dL Total Protein 4.3 L (6.3-8.2) g/dL Albumin 2.1 L (3.5-5.0) g/dL
[2023-09-14 09:52] LABS: HCT 20.8 % (39.6-50.0); HGB 6.8 g/dL (13.0-17.0); MCH 24.8 pg (27.0-32.0); MCHC 32.7 g/dL (32.0-37.0); MCV 75.9 FL (80.0-97.0); Mean Platelet Volume 9.8 FL (9.5-12.2); NRBC Per 100 WBC 0 X 10*3/uL (0.00-0.01); Platelet Count 465 X 10*3/uL (140-440); RBC 2.74 X 10*6/uL (4.40-5.60); RDW 17.1 % (11.5-14.5); WBC 8.35 X 10*3/uL (4.50-10.00)
[2023-09-14 11:55] LABS: Glucose,Whole Blood 186 mg/dL (70-110)
--- NOTE | 2023-09-14 15:50 | P.PN ---
Subjective Progress Note Date: 09/14/23 Hospital course: Patient is a pleasant 42-year-old male with a past medical history of chronic pancreatitis, alcoholism, history of pulmonary emboli, right-sided jaw cancer status post chemo/radiation treatment, GERD with erosive esophagitis, and gastritis. He presented to the emergency department on 09/04/2023 for reports of abdominal pain/discomfort. He underwent full evaluation in the emergency department. Upon arrival vital signs stable with blood pressure 123/86, heart rate 84, respiratory rate 16, temp 98.4 F, and SpO2 of 97% on room air. Labs completed and reviewed. CBC showing leukocytosis with WBC count of 10.7. BMP revealing hypokalemia with potassium of 2.7, hyperchloremia with chloride of 109, hypocarbia with bicarb of 21, and anion gap of 5. Blood glucose was 97. Lactic acid was elevated at 2.1. Lipase elevated at 434. Urinalysis positive for protein, ketones, and 7 RBCs but negative for infection. CT abdomen and pelvis completed showing consolidation at the right lung base suspect possible aspiration versus atelectasis, and intussusception in the left lower quadrant contributing to suspected bowel obstruction with associated fluid distended colon. NG tube was placed and x-ray was completed to confirm placement. Patien t admitted under our services for bowel intussusception with concerns of obstruction with consultation to general surgery. Initially small bowel obstruction was being managed conservatively with NG tube and IV fluid hydration for bowel rest. On 09/06/2023 patient accidentally pulled NG tube resulting in need for replacement and follow-up x-ray revealed free air in abdomen. General surgery was notified immediately. Patient was taken to the OR and found to have peritonitis with small bowel perforation and underwent emergent small bowel resection with [id number] duodenaljejunostomy. Patient had acute postsurgical blood loss anemia requiring transfusion of 1 unit PRBCs. PICC line was placed and patient was started on TPN. NG tube discontinued on 09/12/2023 and patient's diet slowly increased. Physical exam: Patient is postoperative day 8. He reports continued abdominal discomfort/fullness. He reports he is passing flatus but denies having bowel movement as of yet during this hospitalization.. He is tolerating low fiber diet but reports continued decreased appetite secondary to reports of abdominal pain upon eating. He denies having any headache, lightheadedness, dizziness, chest pain, palpitations, nausea, vomiting, or shortness of breath. Patient denies any episodes of bleeding. Hemoglobin is low this morning at 6.8 decreasing from 8.9. No active signs of bleeding. Discussed with general surgery on-call, Dr. Leblanc, and he is recommending holding off on ordering abdominal CT at this time transfusing as needed and just continuing to monitor. Vital signs reviewed and stable. General: Nontoxic, no acute distress. Emaciated, thin and frail build Derm: Skin warm and dry, normal coloration for ethnicity. Head: Atraumatic, normocephalic and symmetric. Eyes: EOMs intact, no lid lag, and anicteric sclera Mouth: no lip lesions, mucus membranes moist Cardiovascular: regular rate and rhythm with normal S1S2, no murmur, positive posterior tibial pulses bilaterally, and cap refill < 2 seconds. Lungs: Respirations even, regular, and unlabored on room air. Lungs CTA bilaterally, no rhonchi, no rales, no wheezing, and no accessory muscle usage. Abdominal: soft distended diffuse tenderness upon palpation to lower quadrants. Postsurgical dressing intact to midline abdomen and abdominal binder in place. DEBORA drains x2 remain in place. Ext: ROM intact. No gross muscle atrophy, no edema, no contractures Neuro: Speech clear, face symmetrical and CN II-XII grossly intact with no noted focal neuro deficits Psych: Alert and oriented to person, place, time, and situation. Appropriate and pleasant affect. Assessment and Plan of Care: Peritonitis with small bowel perforation status post emergent small bowel resection with iyja-bo-wdez duodenojejunostomy Acute postsurgical blood loss anemia, status posttransfusion 1 unit PRBCs Hyponatremia Hypomagnesemia History of GERD with erosive esophagitis History of gastritis Elevated lipase with history of chronic pancreatitis Lactic acidosis, resolved High-anion gap metabolic acidosis, resolved Severe protein calorie malnutrition with BMI of 16.9 kg/m Hemoglobin is low this morning at 6.8 decreasing from 8.9. No active signs of bleeding. Orders placed for transfusion of 1 unit of PRBCs. Discussed decrease in hemoglobin and continued abdominal pain with general surgeon on-call, Dr. Leblanc, and he is recommending holding off on ordering abdominal CT at this time, transfusing blood as needed and just continuing to monitor. Orders placed for CBC every 6 hours. Patient to continue IV antibiotics with Zosyn 3.375 g every 8 hours Dietary following, TPN and lipids to be discontinued once patient is tolerating his advanced that was advanced to low fiber diet on 09/12/2023 Cultures were obtained during surgical procedure, showing no growth to date. NG tube discontinued on 09/12/2023 General surgery following, took patient for emergent small bowel resection with gqag-pb-vuie duodenaljejunostomy on 09/06/2023. Symptomatic care and pain management. Zofran 4 mg IVP every 8 hours as needed for nausea and/or vomiting and Dilaudid 1 mg every 3 hours as needed for pain. Continue Protonix 40 mg IVP daily Continue glycemic protocol with [id number] glucose checks to be completed every 6 hours Right lung base consolidation, suspect aspiration versus atelectasis -Patient denies shortness of breath, cough, or congestion. Does report recent episodes of vomiting which is likely cause of possible aspiration. SPO2 100% on room air. Will continue to monitor. -Consult placed to speech and language pathology for swallow evaluation now that NG tube has been removed and testing can be completed. -Aspiration precautions are in place. History of pulmonary emboli -Patient was undergoing cancer treatments during this time, considered provoked PE. -DVT prophylaxis with heparin 5000 units subcutaneously every 8 hours. Hypokalemia, resolved Data reviewed: Labs completed and reviewed. CBC showing worsening anemia with hemoglobin decreasing to 6.8 and thrombocytosis with platelet count of 465. BMP showing hyponatremia with sodium of 132. Liver profile normal findings. Vital signs were reviewed. Blood pressure 148/84, heart rate 101, respiratory rate 18, temp 98.0 F, and SpO2 of 100% on room air. Documented urinary output over the past 24 hours was 2050 mL. CODE STATUS: Full code DVT prophylaxis: Heparin Anticipated discharge date: Clinical course to determine Anticipated discharge place: Clinical course to determine Patient was seen independently by Nurse Pracitioner. This document was prepared using [employer] dictation software. Please allow for errors in cutting machine [place], while rare they do occur This patient was seen independently by Anoop MENESES. I agree with the assessment and plan done by my colleague. Objective - Vital Signs Vital signs: Vital Signs Temp 98.3 F 09/14/23 07:08 Pulse 101 H 09/14/23 07:08 Resp 18 09/14/23 07:08 BP 148/84 09/14/23 07:08 Pulse Ox 100 09/14/23 07:08 FiO2 Intake & Output 09/13/23 09/14/23 09/14/23 18:59 06:59 18:59 Output Total 1175 1590 Balance -1175 -1590 Weight 47.627 kg Output: Drainage 375 340 Right Abdomen 375 340 Urine 800 1250 Other: Voiding Method Urinal - Labs CBC & Chem 7: 09/15/23 01:54 09/14/23 05:58 Labs: Abnormal Lab Results - Last 24 Hours (Table) 09/13/23 09/13/23 09/14/23 Range/Units 11:50 16:41 01:16 Sodium (137-145) mmol/L Creatinine (0.66-1.25) mg/dL Glucose (74-99) mg/dL POC Glucose (mg/dL) 337 H 240 H 168 H (70-110) mg/dL Calcium (8.4-10.2) mg/dL Total Protein (6.3-8.2) g/dL Albumin (3.5-5.0) g/dL 09/14/23 09/14/23 Range/Units 05:58 06:07 Sodium 132 L (137-145) mmol/L Creatinine 0.49 L (0.66-1.25) mg/dL Glucose 150 H (74-99) mg/dL POC Glucose (mg/dL) 190 H (70-110) mg/dL Calcium 7.5 L (8.4-10.2) mg/dL Total Protein 4.3 L (6.3-8.2) g/dL Albumin 2.1 L (3.5-5.0) g/dL
[2023-09-14] MEDS: IOPAMIDOL CONTRAST (ORAL USE) VIAL PO PRN (16:28)
[2023-09-14 16:46] LABS: Glucose,Whole Blood 138 mg/dL (70-110)
[2023-09-14 18:59] LABS: Anisocytosis Slight; HCT 28.1 % (39.0-53.0); HGB 9.1 gm/dL (13.0-17.5); Hypochromasia Slight; MCH 26.3 pg (25.0-35.0); MCHC 32.4 g/dL (31.0-37.0); MCV 81.2 fL (80.0-100.0); Mean Platelet Volume 7.2; Platelet Count 508 k/uL (150-450); Poikilocytosis Slight; RBC 3.46 m/uL (4.30-5.90); RDW 16.6 % (11.5-15.5); WBC 8.5 k/uL (3.8-10.6)
--- NOTE | 2023-09-14 19:27 | CT ---
EXAMINATION TYPE: CT abdomen pelvis w con CT DLP: 849.5 mGycm, Automated exposure control for dose reduction was used. DATE OF EXAM: 09/14/2023 6:34 PM COMPARISON: CT abdomen pelvis most recent from 09/04/2023 CLINICAL INDICATION:Male, 42 years old with history of incr abd pain increased need for IV pain med s; incr abd pain & increased need for IV pain meds TECHNIQUE: Axial CT abdomen pelvis w con;Sagittal and coronal reformats were created on a separate w orkstation. Contrast used:100ml mL of Isovue 300 with IV Contrast, (none if empty) Oral contrast used: with Oral Contrast (none if empty) FINDINGS: LOWER CHEST: Right lower lung airspace opacities and consolidation. Left lower lung more posterior medially. Trace bilateral pleural effusions. ABDOMEN LIVER: Unremarkable GALLBLADDER AND BILE DUCTS: Vicarious excretion of contrast within the bladder: Bladder lumen. PANCREAS: Multiple calcifications are seen throughout the pancreatic parenchyma with beaded appearanc e of the main pancreatic duct. SPLEEN: Unremarkable. ADRENAL GLANDS: Unremarkable. KIDNEYS AND URETERS: No evidence of hydronephrosis or renal calculus. The ureters are unremarkable. Excreted IV contrast is seen within the renal collecting systems. Visualized portions the collecting systems are patent. PELVIS BLADDER: Excreted IV contrast within the urinary bladder No evidence for mass. REPRODUCTIVE: Unremarkable. ABDOMEN & PELVIS STOMACH AND BOWEL: Dense barium contrast is seen within the colon. Dense barium throughout the colon limits evaluation of the abdomen. The colon is distended most pronounced in the cecum with feces and barium measuring up to 8.4 cm. The stomach is distended with new Isovue contrast. Redundant colon is seen throughout the abdomen large stool burden. PERITONEUM/RETROPERITONEUM: No evidence of pneumoperitoneum. There is a free fluid drainage catheters are seen in the bilateral abdomen. VASCULATURE: No evidence of aortic aneurysm. MUSCULOSKELETAL: No acute osseous abnormalities LYMPH NODES: No gross evidence for lymphadenopathy. SOFT TISSUE/ABDOMINAL WALL: Unremarkable IMPRESSION: 1. Limited exam secondary to barium contrast beam hardening throughout the colon. Surgical drainage catheters are seen bilaterally. Large stool and gas burden throughout the colon with redundant colon. Correlate for ileus. Barium extends to the rectum and new oral contrast is predominantly in the abdi pema lumen which is distended. 2. Chronic pancreatitis changes
--- NOTE | 2023-09-14 22:01 | XR ---
EXAMINATION TYPE: XR chest 1V portable DATE OF EXAM: 09/14/2023 9:48 PM CLINICAL INDICATION:Male, 42 years old with history of NG tube placement verification; [facility] COMPARISON: Chest radiographs from 09/10/2023. TECHNIQUE: XR chest 1V portable Frontal view of the chest. FINDINGS: Lungs/Pleura: There is no evidence of pleural effusion, focal consolidation, or pneumothorax. Pulmonary vascularity: Unremarkable. Heart/mediastinum: Cardiomediastinal silhouette is unremarkable. Musculoskeletal: No acute osseous pathology. Other findings: None Lines/Tubes: Nasogastric tube with its distal tip and side-port projecting under the diaphragm. Left-sided PICC with distal tip at the superior vena cava/brachiocephalic confluence. Ykteji-f-Lbjx projecting over the right hemithorax with distal tip projecting over the superior vena cava. IMPRESSION: Curvilinear lucency surrounding the mediastinum suspicious for pneumomediastinum. Further evaluation recommended. Not seen on prior in 09/10/2023. Nasogastric tube terminates in appropriate position. Cor relate for recent history of surgery. Findings communicated to Dr. Ronal Smith MD on 09/14/2023 9:[address] Isreal Chandler.
--- NOTE | 2023-09-14 22:51 | P.PN ---
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 On today's evaluation that is 09/14/2023,the patient denies any fever or any chills, patient is breathing comfortably on room air, the patient denies chest pain shortness of breath and no significant cough, patient abdominal pain has decreased in intensity and she has been discontinued denies any nausea vomiting did not have any bowel movement but passing gas. Patient white count is 8.5, creatinine 0.49 abdominal culture has been negative Objective - Vital Signs Vital signs: Vital Signs Temp 98.3 F 09/14/23 07:08 Pulse 101 H 09/14/23 08:20 Resp 18 09/14/23 08:20 BP 148/84 09/14/23 07:08 Pulse Ox 100 09/14/23 07:08 FiO2 Intake & Output 09/13/23 09/14/23 09/14/23 18:59 06:59 18:59 Output Total 1175 1590 110 Balance -1175 -1590 -110 Weight 47.627 kg Output: Drainage 375 340 110 Right Abdomen 375 340 110 Urine 800 1250 Other: Voiding Method Urinal Urinal - Exam GENERAL DESCRIPTION: Middle-age male lying in bed in no distress RESPIRATORY SYSTEM: Unlabored breathing , decreased breath sounds at bases HEART: S1 S2 regular rate and rhythm , ABDOMEN: Soft , mild tenderness EXTREMITIES: No edema feet - Labs CBC & Chem 7: 09/14/23 18:36 09/14/23 05:58 Labs: Abnormal Lab Results - Last 24 Hours (Table) 09/13/23 09/13/23 09/14/23 Range/Units 11:50 16:41 01:16 RBC (4.40-5.60) X 10*6/uL Hgb (13.0-17.0) g/dL Hct (39.6-50.0) % MCV (80.0-97.0) FL MCH (27.0-32.0) pg RDW (11.5-14.5) % Plt Count (140-440) X 10*3/uL Sodium (137-145) mmol/L Creatinine (0.66-1.25) mg/dL Glucose (74-99) mg/dL POC Glucose (mg/dL) 337 H 240 H 168 H (70-110) mg/dL Calcium (8.4-10.2) mg/dL Total Protein (6.3-8.2) g/dL Albumin (3.5-5.0) g/dL 09/14/23 09/14/23 09/14/23 Range/Units 05:58 05:58 06:07 RBC 2.74 L (4.40-5.60) X 10*6/uL Hgb 6.8 A* (13.0-17.0) g/dL Hct 20.8 L (39.6-50.0) % MCV 75.9 L (80.0-97.0) FL MCH 24.8 L (27.0-32.0) pg RDW 17.1 H (11.5-14.5) % Plt Count 465 H (140-440) X 10*3/uL Sodium 132 L (137-145) mmol/L Creatinine 0.49 L (0.66-1.25) mg/dL Glucose 150 H (74-99) mg/dL POC Glucose (mg/dL) 190 H (70-110) mg/dL Calcium 7.5 L (8.4-10.2) mg/dL Total Protein 4.3 L (6.3-8.2) g/dL Albumin 2.1 L (3.5-5.0) g/dL Assessment and Plan (1) Peritonitis Current Visit: Yes Status: Acute Code(s): K65.9 - PERITONITIS, UNSPECIFIED SNOMED Code(s): 11398556 (2) Small bowel perforation Current Visit: Yes Status: Acute Code(s): K63.1 - PERFORATION OF INTESTINE (NONTRAUMATIC) SNOMED Code(s): 591840860 Plan: 1patient is in the hospital with abdominal pain he did have a low-grade fever and has been diagnosed with a perforated small bowel status post laparotomy small bowel resection and sywg-fj-[id number] duodenojejunostomy and concern for peritonitis likely organism need to cover with enteric gram-negative both aerobes and anaerobes 2-patient is afebrile white count normal, abdominal culture has been negative for any resistant pathogen 3-patient did have some clinical improvement with the patient on Zosyn while inpatient and monitor clinical course closely Dictation was produced using [employer] dictation software. please excuse any grammatical, word or spelling errors. Time with Patient: Less than 30
--- NOTE | 2023-09-14 23:05 | XR ---
EXAMINATION TYPE: XR chest 1V portable DATE OF EXAM: 09/14/2023 10:54 PM CLINICAL INDICATION:Male, 42 years old with history of repeat exam request by ; INGRID COMPARISON: Chest radiographs from 09/14/2023 TECHNIQUE: XR chest 1V portable Frontal view of the chest. FINDINGS/IMPRESSION: Lucency seen on prior radiograph same day around the mediastinum concerning for pneumomediastinum is redemonstrated. Findings are favored to be secondary to projection given no findings on same day CT o f pneumomediastinum.
[2023-09-14 23:42] LABS: Anisocytosis Slight; HCT 27.7 % (39.0-53.0); Hypochromasia Slight; MCH 25.7 pg (25.0-35.0); MCHC 32.5 g/dL (31.0-37.0); Mean Platelet Volume 8.8; Microcytosis Slight; Platelet Count 516 k/uL (150-450); Poikilocytosis Slight; RBC 3.51 m/uL (4.30-5.90); RDW 16.5 % (11.5-15.5); WBC 9.4 k/uL (3.8-10.6)
[2023-09-14 23:42] LABS: Glucose,Whole Blood 150 mg/dL (70-110)
--- NOTE | 2023-09-15 00:34 | CT ---
EXAM: CT Chest Without Intravenous Contrast CLINICAL HISTORY: ITS.REASON CT Reason: pneumomediastinuim TECHNIQUE: Axial computed tomography images of the chest without intravenous contrast. CTDI is 4.75 mGy and DLP is 345.4 mGy-cm. This CT exam was performed using one or more of the following dose reduction techniques: automated exposure control, adjustment of the mA and/or kV according to patient size, and/or use of iterative reconstruction technique. COMPARISON: No relevant prior studies available. FINDINGS: Lungs: Unremarkable. No mass. No consolidation. Pleural space: Unremarkable. No focal infiltrate, pleural effusion, or pneumothorax. Heart: Unremarkable. No cardiomegaly. No significant pericardial effusion. No significant coronary artery calcifications. Bones/joints: Degenerative changes of the spine. No acute fracture. No dislocation. Soft tissues: Unremarkable. Vasculature: Unremarkable. No thoracic aortic aneurysm. Lymph nodes: Unremarkable. No enlarged lymph nodes. Tubes, lines and devices: Feeding tube terminates in the stomach. RIGHT Port-A-Cath terminates in the SVC. IMPRESSION: No acute findings in the chest. EXAM: CT Abdomen and Pelvis Without Intravenous Contrast CLINICAL HISTORY: ITS.REASON CT Reason: pneumomediastinuim TECHNIQUE: Axial computed tomography images of the abdomen and pelvis without intravenous contrast. CTDI is 4.75 mGy and DLP is 345.4 mGy-cm. This CT exam was performed using one or more of the following dose reduction techniques: automated exposure control, adjustment of the mA and/or kV according to patient size, and/or use of iterative reconstruction technique. COMPARISON: No relevant prior studies available. FINDINGS: Lung bases: Unremarkable. No mass. No consolidation. ABDOMEN: Liver: Unremarkable. Gallbladder and bile ducts: Unremarkable. No calcified stones. No ductal dilation. Pancreas: Calcifications and atrophy of the pancreas, consistent with sequelae of chronic pancreatitis. No ductal dilation. Spleen: Unremarkable. No splenomegaly. Adrenals: Unremarkable. No mass. Kidneys and ureters: Unremarkable. No hydronephrosis. Stomach and bowel: History of duodenojejunostomy. Evaluation of the small bowel is limited due to phase of contrast. No small bowel obstruction. PELVIS: Appendix: No findings to suggest acute appendicitis. Bladder: Unremarkable. No stones. Reproductive: Unremarkable as visualized. ABDOMEN and PELVIS: Intraperitoneal space: Unremarkable. No free air. No significant fluid collection. Bones/joints: No acute fracture. No dislocation. Soft tissues: Unremarkable. Vasculature: Unremarkable. No abdominal aortic aneurysm. Lymph nodes: Unremarkable. No enlarged lymph nodes. Tubes, lines and devices: Bilateral percutaneous catheters, poorly with surgical history. Moderate fecal retention throughout the colon, correlate for constipation. There is old contrast in sigmoid colon and rectum, which contributes streak artifact. IMPRESSION: 1. Calcifications and atrophy of the pancreas, consistent with sequelae of chronic pancreatitis. 2. History of duodenojejunostomy. Evaluation of the small bowel is limited due to phase of contrast. No small bowel obstruction. 3. Bilateral percutaneous catheters, poorly with surgical history. Moderate fecal retention throughout the colon, correlate for constipation. There is old contrast in sigmoid colon and rectum, which contributes streak artifact.
[2023-09-15] MEDS: PIPERACILLIN-TAZOBACTAM 3.375 GM in SODIUM CHLORIDE 0.9% 100 ML IVPB SCH (01:23)
[2023-09-15 02:30] LABS: Anisocytosis Slight; HCT 27.1 % (39.0-53.0); Hypochromasia Slight; MCH 26.1 pg (25.0-35.0); MCHC 33.2 g/dL (31.0-37.0); MCV 78.6 fL (80.0-100.0); Mean Platelet Volume 7.7; Microcytosis Slight; Platelet Count 532 k/uL (150-450); Poikilocytosis Slight; RBC 3.45 m/uL (4.30-5.90); RDW 16.5 % (11.5-15.5); WBC 10.6 k/uL (3.8-10.6)
[2023-09-15 05:42] LABS: Glucose,Whole Blood 152 mg/dL (70-110)
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
[2023-09-15 08:42] LABS: ALT 15 U/L (4-49); AST 31 U/L (17-59); African American GFR (CKD) >90 (>60 ml/min/1.73 sqM); Albumin 2.1 g/dL (3.5-5.0); Albumin/Globulin Ratio 0.9; Alkaline Phosphatase 83 U/L (38-126); Anion Gap 3 mmol/L; Blood Urea Nitrogen 17 mg/dL (9-20); Calcium 7.8 mg/dL (8.4-10.2); Carbon Dioxide 26 mmol/L (22-30); Chloride 102 mmol/L (98-107); Globulin 2.4 g/dL; Glucose 114 mg/dL (74-99); Magnesium 1.8 mg/dL (1.6-2.3); Non-African American GFR(CKD) >90 (>60 ml/min/1.73 sqM); Phosphorus 3.2 mg/dL (2.5-4.5); Potassium 4.8 mmol/L (3.5-5.1); Sodium 131 mmol/L (137-145); Total Bilirubin 0.5 mg/dL (0.2-1.3); Total Protein 4.5 g/dL (6.3-8.2)
[2023-09-15 12:28] LABS: Glucose,Whole Blood 140 mg/dL (70-110)
--- NOTE | 2023-09-15 12:35 | P.PN ---
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 On today's evaluation that is 09/15/2023,the patient remains to be afebrile, patient is on room air not requiring supplemental oxygen and denies any shortness of breath no chest pain or cough.Patient NG is back however denies lee ving any nausea vomiting still complaining of abdominal pain but no worsening passing gas but no bowel movement. Patient did have white count of 10.6, creatinine 0.43 abdominal culture has been negative Objective - Vital Signs Vital signs: Vital Signs Temp 98.9 F 09/15/23 08:00 Pulse 89 09/15/23 08:00 Resp 15 09/15/23 08:00 BP 121/77 09/15/23 08:00 Pulse Ox 100 09/15/23 02:15 FiO2 Intake & Output 09/14/23 09/15/23 09/15/23 18:59 06:59 18:59 Intake Total 0 1026 Output Total 089 215 5301 Balance -300 396 -1735 Intake: Intake, IV Titration 1026 Amount Mvi, Adult No.4 with Vit 1026 K 10 ml Trace (Conc-1Ml/ Dose) 1 ml Sodium Chloride 4Meq/ml Vial 40 meq Potassium Phosphate 9 mmol Magnesium Sulfate gm 1 gm In Amino Acid 5%- D15w+Lytes*E* 1,000 ml @ 47 mls/hr IV .[id number] [facility] Rx#:[id number] Blood Product 0 Rc As-1 Unit 0 [id number] Output: Gastric Drainage 10 Drainage 300 230 250 Left Abdomen 20 Right Abdomen 300 230 230 Urine 400 1475 Other: Voiding Method Urinal Urinal # Voids 5 - Exam GENERAL DESCRIPTION: Middle-age male lying in bed in no distress RESPIRATORY SYSTEM: Unlabored breathing , decreased breath sounds at bases HEART: S1 S2 regular rate and rhythm , ABDOMEN: Soft , mild tenderness EXTREMITIES: No edema feet - Labs CBC & Chem 7: 09/15/23 01:54 09/15/23 08:12 Labs: Abnormal Lab Results - Last 24 Hours (Table) 09/14/23 09/14/23 09/14/23 Range/Units 10:48 16:45 18:36 RBC 3.46 L (4.30-5.90) m/uL Hgb 9.1 L (13.0-17.5) gm/dL Hct 28.1 L (39.0-53.0) % MCV (80.0-100.0) fL RDW 16.6 H (11.5-15.5) % Plt Count 508 H (150-450) k/uL Sodium (137-145) mmol/L Creatinine (0.66-1.25) mg/dL Glucose (74-99) mg/dL POC Glucose (mg/dL) 138 H (70-110) mg/dL Calcium (8.4-10.2) mg/dL Total Protein (6.3-8.2) g/dL Albumin (3.5-5.0) g/dL Crossmatch See Detail 09/14/23 09/14/23 09/15/23 Range/Units 23:29 23:38 01:54 RBC 3.51 L 3.45 L (4.30-5.90) m/uL Hgb 9.0 L 9.0 L (13.0-17.5) gm/dL Hct 27.7 L 27.1 L (39.0-53.0) % MCV 79.0 L 78.6 L (80.0-100.0) fL RDW 16.5 H 16.5 H (11.5-15.5) % Plt Count 516 H 532 H (150-450) k/uL Sodium (137-145) mmol/L Creatinine (0.66-1.25) mg/dL Glucose (74-99) mg/dL POC Glucose (mg/dL) 150 H (70-110) mg/dL Calcium (8.4-10.2) mg/dL Total Protein (6.3-8.2) g/dL Albumin (3.5-5.0) g/dL Crossmatch 0209/15/23 09/15/23 Range/Units 05:36 08:12 12:27 RBC (4.30-5.90) m/uL Hgb (13.0-17.5) gm/dL Hct (39.0-53.0) % MCV (80.0-100.0) fL RDW (11.5-15.5) % Plt Count (150-450) k/uL Sodium 131 L (137-145) mmol/L Creatinine 0.43 L (0.66-1.25) mg/dL Glucose 114 H (74-99) mg/dL POC Glucose (mg/dL) 152 H 140 H (70-110) mg/dL Calcium 7.8 L (8.4-10.2) mg/dL Total Protein 4.5 L (6.3-8.2) g/dL Albumin 2.1 L (3.5-5.0) g/dL Crossmatch Assessment and Plan (1) Peritonitis Current Visit: Yes Status: Acute Code(s): K65.9 - PERITONITIS, UNSPECIFIED SNOMED Code(s): 16229281 (2) Small bowel perforation Current Visit: Yes Status: Acute Code(s): K63.1 - PERFORATION OF INTESTINE (NONTRAUMATIC) SNOMED Code(s): 204753761 Plan: 1patient is in the hospital with abdominal pain he did have a low-grade fever and has been diagnosed with a perforated small bowel status post laparotomy small bowel resection and nwba-[id number] duodenojejunostomy and concern for peritonitis likely organism need to cover with enteric gram-negative both aerobes and anaerobes 2-patient is afebrile white count normal, abdominal culture has been negative for any resistant pathogen 3-patient did have a setback as his NG is back we will wait for resumption of his oral activity and for now continue with Zosyn and monitor clinical course closely Dictation was produced using [employer] dictation software. please excuse any grammatical, word or spelling errors. Time with Patient: Less than 30
--- NOTE | 2023-09-15 15:12 | P.PN ---
Subjective Progress Note Date: 09/15/23 CHIEF COMPLAINT: Small bowel perforation HISTORY OF PRESENT ILLNESS: The patient is a 42-year-old male admitted with abdominal pain. He is status post exploratory laparotomy including small bowel resection for small bowel perforation. Patient complains of abdominal pain. Patient has TPN for nutrition support. Patient had NG tube reinserted last night for an abdominal ileus. He is having flatus. Last BM was small and over a day ago. Patient reports she has had decreased pain since placement of the NG tube. There were concerns of a pneumomediastinum on chest x-ray. CT scan of chest abdomen and pelvis showed no evidence of pneumomediastinum. No small bowel obstruction. And did report moderate fecal retention. Patient was seen by pulmonary service. They felt there was no evidence of pneumomediastinum. DEBORA drains with serosanguineous output. Right still having a significant amount of output as is the left. Afebrile. WBC 10.6 PHYSICAL EXAM: VITAL SIGNS: Reviewed GENERAL: Well-developed in no acute distress. HEENT: No sclera icterus. Extraocular movements grossly intact. Moist buccal mucosa. Head is atraumatic, normocephalic. Hears conversational speech. No nasal drainage. NECK: Supple without lymphadenopathy. CHEST: Non-labored respirations and equal bilateral excursions. CARDIOVASCULAR: Palpable 2+ radial pulses. ABDOMEN: Mild distention. Incision site dressing clean dry and intact. [address] NG tube with minimal output. MUSCULOSKELETAL: No clubbing or cyanosis. NEUROLOGIC: No focal or lateralizing signs. Cranial nerves II through XII narendra ssly intact. PSYCH: Appropriate affect. Alert and oriented to person, place and time. SKIN: Well perfused. Good skin turgor. ASSESSMENT: 1. Small bowel perforation 2. Ileus 3. Underweight, BMI 16.9 4. Prolonged n.p.o. status 5. Inadequate protein intake 6. Hypokalemia and hypomagnesemia PLAN: -Continue NG tube for decompression -Keep patient n.p.o. -Continue to replace electrolytes -Continue TPN for nutrition support -Continue antibiotics -Continue pain management -Continue to monitor DEBORA drain output -Increase activity level -Encourage incentive spirometer use -DVT prophylaxis subcu heparin Physician Windows Infrastructure Engineer note has been reviewed by physician. Signing provider agrees with the documented findings, assessment, and plan of care. Objective - Vital Signs Vital signs: Vital Signs Temp 98.9 F 09/15/23 08:00 Pulse 89 09/15/23 08:00 Resp 15 09/15/23 08:00 BP 121/77 09/15/23 08:00 Pulse Ox 100 09/15/23 02:15 FiO2 Intake & Output 09/14/23 09/15/23 09/15/23 18:59 06:59 18:59 Intake Total 0 1026 Output Total 015 216 1697 Balance -300 396 -1655 Intake: Intake, IV Titration 1026 Amount Mvi, Adult No.4 with Vit 1026 K 10 ml Trace (Conc-1Ml/ Dose) 1 ml Sodium Chloride 4Meq/ml Vial 40 meq Potassium Phosphate 9 mmol Magnesium Sulfate gm 1 gm In Amino Acid 5%- D15w+Lytes*E* 1,000 ml @ 47 mls/hr IV .[id number] [facility] Rx#:[id number] Blood Product 0 Rc As-1 Unit 0 [id number] Output: Gastric Drainage 10 Drainage 300 230 170 Left Abdomen 20 Right Abdomen 300 230 150 Urine 400 1475 Other: Voiding Method Urinal Urinal # Voids 5 - Labs CBC & Chem 7: 09/15/23 01:54 09/15/23 08:12 Labs: Abnormal Lab Results - Last 24 Hours (Table) 09/14/23 09/14/23 09/14/23 Range/Units 10:48 11:54 16:45 RBC (4.30-5.90) m/uL Hgb (13.0-17.5) gm/dL Hct (39.0-53.0) % MCV (80.0-100.0) fL RDW (11.5-15.5) % Plt Count (150-450) k/uL Sodium (137-145) mmol/L Creatinine (0.66-1.25) mg/dL Glucose (74-99) mg/dL POC Glucose (mg/dL) 186 H 138 H (70-110) mg/dL Calcium (8.4-10.2) mg/dL Total Protein (6.3-8.2) g/dL Albumin (3.5-5.0) g/dL Crossmatch See Detail 09/14/23 09/14/23 09/14/23 Range/Units 18:36 23:29 23:38 RBC 3.46 L 3.51 L (4.30-5.90) m/uL Hgb 9.1 L 9.0 L (13.0-17.5) gm/dL Hct 28.1 L 27.7 L (39.0-53.0) % MCV 79.0 L (80.0-100.0) fL RDW 16.6 H 16.5 H (11.5-15.5) % Plt Count 508 H 516 H (150-450) k/uL Sodium (137-145) mmol/L Creatinine (0.66-1.25) mg/dL Glucose (74-99) mg/dL POC Glucose (mg/dL) 150 H (70-110) mg/dL Calcium (8.4-10.2) mg/dL Total Protein (6.3-8.2) g/dL Albumin (3.5-5.0) g/dL Crossmatch 09/15/23 09/15/23 09/15/23 Range/Units 01:54 05:36 08:12 RBC 3.45 L (4.30-5.90) m/uL Hgb 9.0 L (13.0-17.5) gm/dL Hct 27.1 L (39.0-53.0) % MCV 78.6 L (80.0-100.0) fL RDW 16.5 H (11.5-15.5) % Plt Count 532 H (150-450) k/uL Sodium 131 L (137-145) mmol/L Creatinine 0.43 L (0.66-1.25) mg/dL Glucose 114 H (74-99) mg/dL POC Glucose (mg/dL) 152 H (70-110) mg/dL Calcium 7.8 L (8.4-10.2) mg/dL Total Protein 4.5 L (6.3-8.2) g/dL Albumin 2.1 L (3.5-5.0) g/dL Crossmatch
--- NOTE | 2023-09-15 15:27 | P.PN ---
Subjective Progress Note Date: 09/15/23 Hospital course: Patient is a pleasant 42-year-old male with a past medical history of chronic pancreatitis, alcoholism, history of pulmonary emboli, right-sided jaw cancer status post chemo/radiation treatment, GERD with erosive esophagitis, and gastritis. He presented to the emergency department on 09/04/2023 for reports of abdominal pain/discomfort. He underwent full evaluation in the emergency department. Upon arrival vital signs stable with blood pressure 123/86, heart rate 84, respiratory rate 16, temp 98.4 F, and SpO2 of 97% on room air. Labs completed and reviewed. CBC showing leukocytosis with WBC count of 10.7. BMP revealing hypokalemia with potassium of 2.7, hyperchloremia with chloride of 109, hypocarbia with bicarb of 21, and anion gap of 5. Blood glucose was 97. Lactic acid was elevated at 2.1. Lipase elevated at 434. Urinalysis positive for protein, ketones, and 7 RBCs but negative for infection. CT abdomen and pelvis completed showing consolidation at the right lung base suspect possible aspiration versus atelectasis, and intussusception in the left lower quadrant contributing to suspected bowel obstruction with associated fluid distended colon. NG tube was placed and x-ray was completed to confirm placement. Patien t admitted under our services for bowel intussusception with concerns of obstruction with consultation to general surgery. Initially small bowel obstruction was being managed conservatively with NG tube and IV fluid hydration for bowel rest. On 09/06/2023 patient accidentally pulled NG tube resulting in need for replacement and follow-up x-ray revealed free air in abdomen. General surgery was notified immediately. Patient was taken to the OR and found to have peritonitis with small bowel perforation and underwent emergent small bowel resection with nvno-qp-fkqi duodenaljejunostomy. Patient had acute postsurgical blood loss anemia requiring transfusion of 1 unit PRBCs. PICC line was placed and patient was started on TPN. NG tube discontinued on 09/12/2023 and patient's diet slowly increased. On 09/14/2023 patient with increased abdominal pain and increased needs for IV pain medications. CT abdomen and pelvis was repeated 09/14/2023 showing surgical drainage catheters bilaterally with large stool and gas burden throughout the colon with redundant colon concerning for ileus, revealing barium extending to the rectum and new oral contrast is predominantly in the gastric lumen which is distended. NG tube was reinserted for bowel decompression. Physical exam: Patient is postoperative day 9. He had increased abdominal pain with increased need for IV pain medication. CT scan was completed concerning for ileus. NG tube was reinserted. Patient currently n.p.o. with TPN at this time. He reports continued abdominal pain/discomfort. Denies nausea or vomiting. He reports he has passed flatus but has not yet had a bowel movement since prior to hospitalization. Vital signs reviewed and stable. General: Nontoxic, no acute distress. Emaciated, thin and frail build Derm: Skin warm and dry, normal coloration for ethnicity. Head: Atraumatic, normocephalic and symmetric. Eyes: EOMs intact, no lid lag, and anicteric sclera Mouth: no lip lesions, mucus membranes moist Cardiovascular: regular rate and rhythm with normal S1S2, no murmur, positive posterior tibial pulses bilaterally, and cap refill < 2 seconds. Lungs: Respirations even, regular, and unlabored on room air. Lungs CTA bilaterally, no rhonchi, no rales, no wheezing, and no accessory muscle usage. Abdominal: soft distended diffuse tenderness upon palpation to lower quadrants. Postsurgical dressing intact to midline abdomen and abdominal binder in place. DEBORA drains x2 remain in place. Ext: ROM intact. No gross muscle atrophy, no edema, no contractures Neuro: Speech clear, face symmetrical and CN II-XII grossly intact with no noted focal neuro deficits Psych: Alert and oriented to person, place, time, and situation. Appropriate and pleasant affect. Assessment and Plan of Care: Peritonitis with small bowel perforation status post emergent small bowel resection with pdhl-pd-ldta duodenojejunostomy 09/06/2023 Acute postsurgical blood loss anemia, status posttransfusion 1 unit PRBCs Thrombocytosis, likely reactive Hyponatremia Hypomagnesemia History of GERD with erosive esophagitis History of gastritis Elevated lipase with history of chronic pancreatitis Lactic acidosis, resolved High-anion gap metabolic acidosis, resolved Severe protein calorie malnutrition with BMI of 16.9 kg/m Patient has received a total of 2 units PRBCs during hospitalization. Currently hemoglobin stable at 9.0. General surgery following CT abdomen and pelvis was repeated 09/14/2023 showing surgical drainage catheters bilaterally with large stool and gas burden throughout the colon with redundant colon concerning for ileus, revealing barium extending to the rectum and new oral contrast is predominantly in the gastric lumen which is distended. NG tube was reinserted Patient to continue IV antibiotics with Zosyn 3.375 g every 8 hours Dietary following, TPN and lipids to continue Cultures were obtained during surgical procedure, showing no growth to date. NG tube discontinued on 09/12/2023 and reinserted on 09/14/2023 after findings of ileus. General surgery following, reviewed documentation in chart. General surgery following DEBORA drainage output and recommending continuation of NG tube for bowel decompression. Symptomatic care and pain management. Zofran 4 mg IVP every 8 hours as needed for nausea and/or vomiting and Dilaudid 1 mg every 3 hours as needed for pain. Continue Protonix 40 mg IVP daily Continue glycemic protocol with jjgei-yt-clor glucose checks to be completed every 6 hours Right lung base consolidation, suspect aspiration versus atelectasis. Resolved. Abnormal x-ray imaging concerning for possible pneumomediastinum, ruled out by CT and patient cleared by feather maker -Patient denies shortness of breath, cough, or congestion. Does report recent episodes of vomiting which is likely cause of possible aspiration. SPO2 100% on room air. Will continue to monitor. History of pulmonary emboli -Patient was undergoing cancer treatments during this time, considered provoked PE. -DVT prophylaxis with heparin 5000 units subcutaneously every 8 hours. Hypokalemia, resolved Data reviewed: Labs completed and reviewed. CBC showing stable normocytic anemia with hemoglobin of 9.0 and worsening thrombocytosis with platelet count of 532. BMP showing hyponatremia with sodium of 131. Glucose was 114. Magnesium 1.8. Liver profile normal findings with the exception of albumin remaining low at 2.1. Vital signs were reviewed. Blood pressure 121/77, heart rate 89, respiratory rate 15, temp 98.9 F, and SpO2 of 100% on room air. CODE STATUS: Full code DVT prophylaxis: Heparin Anticipated discharge date: Clinical course to determine Anticipated discharge place: Clinical course to determine Patient was seen independently by Nurse Pracitioner. This document was prepared using [employer] dictation software. Please allow for errors in jack frame tender, while rare they do occur This patient was seen independently by my colleague Anoop MENESES. I agree with the assessment and plan. Objective - Vital Signs Vital signs: Vital Signs Temp 98.9 F 09/15/23 08:00 Pulse 89 09/15/23 08:00 Resp 15 09/15/23 08:00 BP 121/77 09/15/23 08:00 Pulse Ox 100 09/15/23 02:15 FiO2 Intake & Output 09/14/23 09/15/23 09/15/23 18:59 06:59 18:59 Intake Total 0 1026 Output Total 300 630 930 Balance -300 396 -930 Intake: Intake, IV Titration 1026 Amount Mvi, Adult No.4 with Vit 1026 K 10 ml Trace (Conc-1Ml/ Dose) 1 ml Sodium Chloride 4Meq/ml Vial 40 meq Potassium Phosphate 9 mmol Magnesium Sulfate gm 1 gm In Amino Acid 5%- D15w+Lytes*E* 1,000 ml @ 47 mls/hr IV .[id number] [facility] Rx#:[id number] Blood Product 0 Rc As-1 Unit 0 [id number] Output: Gastric Drainage 10 Drainage 300 230 120 Left Abdomen 20 Right Abdomen 300 230 100 Urine 400 800 Other: Voiding Method Urinal Urinal # Voids 5 - Labs CBC & Chem 7: 09/16/23 07:59 09/16/23 07:59 Labs: Abnormal Lab Results - Last 24 Hours (Table) 09/14/23 09/14/23 09/14/23 Range/Units 05:58 10:48 11:54 RBC 2.74 L (4.40-5.60) X 10*6/uL Hgb 6.8 A* (13.0-17.0) g/dL Hct 20.8 L (39.6-50.0) % MCV 75.9 L (80.0-97.0) FL MCH 24.8 L (27.0-32.0) pg RDW 17.1 H (11.5-14.5) % Plt Count 465 H (140-440) X 10*3/uL Sodium (137-145) mmol/L Creatinine (0.66-1.25) mg/dL Glucose (74-99) mg/dL POC Glucose (mg/dL) 186 H (70-110) mg/dL Calcium (8.4-10.2) mg/dL Total Protein (6.3-8.2) g/dL Albumin (3.5-5.0) g/dL Crossmatch See Detail 09/14/23 09/14/2309/14/24 Range/Units 16:45 18:36 23:29 RBC 3.46 L 3.51 L (4.40-5.60) X 10*6/uL Hgb 9.1 L 9.0 L (13.0-17.0) g/dL Hct 28.1 L 27.7 L (39.6-50.0) % MCV 79.0 L (80.0-97.0) FL MCH (27.0-32.0) pg RDW 16.6 H 16.5 H (11.5-14.5) % Plt Count 508 H 516 H (140-440) X 10*3/uL Sodium (137-145) mmol/L Creatinine (0.66-1.25) mg/dL Glucose (74-99) mg/dL POC Glucose (mg/dL) 138 H (70-110) mg/dL Calcium (8.4-10.2) mg/dL Total Protein (6.3-8.2) g/dL Albumin (3.5-5.0) g/dL Crossmatch 09/14/23 09/15/23 09/15/23 Range/Units 23:38 01:54 05:36 RBC 3.45 L (4.40-5.60) X 10*6/uL Hgb 9.0 L (13.0-17.0) g/dL Hct 27.1 L (39.6-50.0) % MCV 78.6 L (80.0-97.0) FL MCH (27.0-32.0) pg RDW 16.5 H (11.5-14.5) % Plt Count 532 H (140-440) X 10*3/uL Sodium (137-145) mmol/L Creatinine (0.66-1.25) mg/dL Glucose (74-99) mg/dL POC Glucose (mg/dL) 150 H 152 H (70-110) mg/dL Calcium (8.4-10.2) mg/dL Total Protein (6.3-8.2) g/dL Albumin (3.5-5.0) g/dL Crossmatch 09/15/23 Range/Units 08:12 RBC (4.40-5.60) X 10*6/uL Hgb (13.0-17.0) g/dL Hct (39.6-50.0) % MCV (80.0-97.0) FL MCH (27.0-32.0) pg RDW (11.5-14.5) % Plt Count (140-440) X 10*3/uL Sodium 131 L (137-145) mmol/L Creatinine 0.43 L (0.66-1.25) mg/dL Glucose 114 H (74-99) mg/dL POC Glucose (mg/dL) (70-110) mg/dL Calcium 7.8 L (8.4-10.2) mg/dL Total Protein 4.5 L (6.3-8.2) g/dL Albumin 2.1 L (3.5-5.0) g/dL Crossmatch
[2023-09-15 17:59] LABS: Glucose,Whole Blood 137 mg/dL (70-110)
[2023-09-15 18:59] LABS: HCT 25.1 % (39.6-50.0); HGB 8.2 g/dL (13.0-17.0); MCH 25.5 pg (27.0-32.0); MCHC 32.7 g/dL (32.0-37.0); MCV 78.2 FL (80.0-97.0); Mean Platelet Volume 9.2 FL (9.5-12.2); NRBC Per 100 WBC 0 X 10*3/uL (0.00-0.01); Platelet Count 473 X 10*3/uL (140-440); RBC 3.21 X 10*6/uL (4.40-5.60); RDW 17.3 % (11.5-14.5); WBC 9.93 X 10*3/uL (4.50-10.00)
[2023-09-15] MEDS: MVI, ADULT NO.4 WITH VIT K 10 ML, TRACE (CONC-1ML/DOSE) 1 ML, SODIUM CHLORIDE 4MEQ/ML V... IV SCH (19:13)
[2023-09-16 00:55] LABS: Glucose,Whole Blood 132 mg/dL (70-110)
[2023-09-16 05:50] LABS: Glucose,Whole Blood 162 mg/dL (70-110)
[2023-09-16 10:00] LABS: Phosphorus 4.1 mg/dL (2.5-4.5)
--- NOTE | 2023-09-16 11:37 | P.PN ---
Subjective Progress Note Date: 09/16/23 I am seeing this patient in consultation today September 15, 2023 for an incidental finding of possible pneumomediastinum on chest x-ray. Patient is a 42-year-old -[place] male with past medical history significant for oral cancer status post chemo/radiation, previous tracheostomy and PEG tube with reversal, pulmonary embolism, alcohol abuse, former tobacco smoker, and recent hospitalization at [facility] for bowel obstruction.. Patient was admitted back on September 04 for acute abdominal pain, and ended up developing a small bowel perforation. Patient was taken to the operating room on September 06 and underwent small bowel resection and gwbz-wv-sdqk duodenojejunostomy. No immediate perioperative complications reported. Late last night, the patient was having increased abdominal pain and sent for a CT of the abdomen and pelvis with contrast which was limited to barium contrast being hard and throughout the colon. There was large stool and gas burden throughout the colon with possible ileus. Barium extended into the rectum and new oral contrast is seen predominantly in the gastric lumen which is distended. There is chronic pancreatic changes as well. An NG tube was inserted for gastric decompression, and a follow-up chest x-ray was done to confirm placement. Chest x-ray findings were concerning for pneumomediastinum. This was not previously observed. No pneumothorax. NG tube coursing below the diaphragm. I sent the patient down for a chest/abdomen/pelvis CT which did not show any evidence of pneumomediastinum. No pneumothorax. On my evaluation, the patient is sitting up at the edge of the bed. He is on room air. No significant distress. No chest pain, shortness of breath, or subcutaneous emphysema. No neck pain. No nausea or vomiting. No trouble swallowing. No coughing. I am told the nasogastric insertion was atraumatic. He does endorse abdominal pain, but does not appear to be out of proportion to recent surgery. He is sitting comfortably at the edge of the bed. No facial grimacing or guarding. I am able to palpate his abdomen without a significant amount of distress. There is a nasogastric tube hooked to low intermittent suction with a minimal amount of yellow/brown output. He has TPN infusing through a left arm PICC line at the rate of 47 mL/h. Lab work was noted. Empirically covered on Zosyn. Vital signs are stable. The patient is seen today for 2023 and follow-up on the regular medical floor. He is currently sitting up at the bedside. Awake and alert in no acute distress. Maintaining O2 saturations in the 90s on room air. His nasogastric tube was advertently pulled out yesterday. He remains on TPN at 60 MLS per hour. Remains on lipids on Tuesdays and Fridays. Glucose 162. Phosphorus 4.1. He remains on antibiotics in the form of Zosyn. Heparin for DVT prophylaxis. Objective - Vital Signs Vital signs: Vital Signs Temp 98.1 F 09/16/23 07:29 Pulse 83 09/16/23 07:29 Resp 17 09/16/23 07:29 BP 119/83 09/16/23 07:29 Pulse Ox 100 09/16/23 07:29 FiO2 Intake & Output 09/15/23 09/16/23 09/16/23 18:59 06:59 18:59 Output Total 4454 2280 350 Balance -5908 -1260 -750 Weight 47.627 kg Output: Gastric Drainage 10 Drainage 370 560 400 Left Abdomen 20 100 40 Right Abdomen 350 460 360 Urine 2165 700 350 Other: Voiding Method Urinal Urinal - Exam GENERAL EXAM: Alert, 42-year-old male, appearing older than stated age, sitting at the edge of the bed, comfortable in no apparent distress. HEAD: Normocephalic and atraumatic EYES: Normal reaction of pupils, equal size. NOSE: Clear with pink turbinates. THROAT: No erythema or exudates. NECK: No masses, no JVD. No subcutaneous emphysema. CHEST: No chest wall deformity. LUNGS: Equal air entry with mild expiratory wheezes. On room air. No conversational dyspnea. CVS: S1 and S2 normal with no audible murmur, regular rhythm. No extra heart sounds ABDOMEN: There are 2 DEBORA drains. There is a midline abdominal incision with thick incisional dressing which is clean, dry. There are hypoactive bowel sounds. Abdomen is flat. No guarding or rigidity. SPINE: No scoliosis or deformity SKIN: No rashes CENTRAL NERVOUS SYSTEM: No focal deficits, tone is normal in all 4 extremities. EXTREMITIES: There is mild nonpitting edema of bilateral lower extremities. No clubbing, or cyanosis. Peripheral pulses are intact. - Labs CBC & Chem 7: 09/15/23 08:12 09/15/23 08:12 Labs: Abnormal Lab Results - Last 24 Hours (Table) 09/15/23 09/15/23 09/15/23 Range/Units 08:12 12:27 17:57 RBC 3.21 L (4.40-5.60) X 10*6/uL Hgb 8.2 L (13.0-17.0) g/dL Hct 25.1 L (39.6-50.0) % MCV 78.2 L (80.0-97.0) FL MCH 25.5 L (27.0-32.0) pg RDW 17.3 H (11.5-14.5) % Plt Count 473 H (140-440) X 10*3/uL MPV 9.2 L (9.5-12.2) FL POC Glucose (mg/dL) 140 H 137 H (70-110) mg/dL 09/16/23 09/16/23 Range/Units 00:50 05:45 RBC (4.40-5.60) X 10*6/uL Hgb (13.0-17.0) g/dL Hct (39.6-50.0) % MCV (80.0-97.0) FL MCH (27.0-32.0) pg RDW (11.5-14.5) % Plt Count (140-440) X 10*3/uL MPV (9.5-12.2) FL POC Glucose (mg/dL) 132 H 162 H (70-110) mg/dL Assessment and Plan Assessment: Suspected pneumomediastinum, ruled out by follow-up chest CT. Chest x-ray findings are likely artifact. Small Bowel perforation, status post small bowel resection/duodenojejunostomy anastomosis on 09/06/2023 Possible postoperative ileus Postoperative anemia, expected outcome of surgery History of oral cancer status post chemo/radiation History of previous tracheostomy, status post reversal History of previous PEG tube, with reversal History of pulmonary embolism History of alcohol abuse History of chronic pancreatitis History of GERD with esophagitis Former tobacco smoker Plan: The patient was seen and evaluated Medications reviewed NG tube inadvertently pulled out last night Remains on TPN and lipids Continued on antibiotics in the form of Zosyn Surgery and infectious disease following Increase his activity as tolerated I have personally seen and examined the patient, performed the documentation and the assessment and plan as written. Number of minutes spent on the visit: 10.
[2023-09-16 12:07] LABS: Glucose,Whole Blood 131 mg/dL (70-110)
[2023-09-16 12:47] LABS: HCT 27.1 % (39.6-50.0); MCH 25.4 pg (27.0-32.0); MCHC 33.2 g/dL (32.0-37.0); MCV 76.3 FL (80.0-97.0); NRBC Per 100 WBC 0 X 10*3/uL (0.00-0.01); Platelet Count 611 X 10*3/uL (140-440); RBC 3.55 X 10*6/uL (4.40-5.60); RDW 17.2 % (11.5-14.5); WBC 10.55 X 10*3/uL (4.50-10.00)
[2023-09-16] MEDS: HYDROmorphone 1 MG/ML 1 ML SYRINGE IVP PRN (13:28)
[2023-09-16 14:12] LABS: ALT 16 U/L (4-49); AST 32 U/L (17-59); African American GFR (CKD) >90 (>60 ml/min/1.73 sqM); Albumin 2.2 g/dL (3.5-5.0); Albumin/Globulin Ratio 0.9; Alkaline Phosphatase 80 U/L (38-126); Anion Gap 3 mmol/L; Blood Urea Nitrogen 18 mg/dL (9-20); Carbon Dioxide 26 mmol/L (22-30); Chloride 103 mmol/L (98-107); Globulin 2.4 g/dL; Glucose 120 mg/dL (74-99); Magnesium 1.9 mg/dL (1.6-2.3); Non-African American GFR(CKD) >90 (>60 ml/min/1.73 sqM); Potassium 4.9 mmol/L (3.5-5.1); Sodium 132 mmol/L (137-145); Total Bilirubin 0.4 mg/dL (0.2-1.3); Total Protein 4.6 g/dL (6.3-8.2)
--- NOTE | 2023-09-16 16:06 | P.PN ---
Subjective Progress Note Date: 09/16/23 CHIEF COMPLAINT: Small bowel perforation HISTORY OF PRESENT ILLNESS: The patient is a 42-year-old male admitted with abdominal pain. He is status post exploratory laparotomy including small bowel resection for small bowel perforation. Patient complains of abdominal pain. He does report the pain is less than yesterday. Medicine and GI service is adjusting pain medication. Patient's NG tube did come out during the night. He does report having a small amount of flatus. No bowel movement. Denies any nausea or vomiting. Afebrile. Right DEBORA drain still having significant output with 300 mL serosanguineous output through the night. 100 mL output on the left. Afebrile. WBC 10.5 Hgb 9 platelets 611 sodium is 132 potassium 4.9 creatinine 0.46 PHYSICAL EXAM: VITAL SIGNS: Reviewed GENERAL: Well-developed in no acute distress. HEENT: No sclera icterus. Extraocular movements grossly intact. Moist buccal mucosa. Head is atraumatic, normocephalic. Hears conversational speech. No nasal susan inage. NECK: Supple without lymphadenopathy. CHEST: Non-labored respirations and equal bilateral excursions. CARDIOVASCULAR: Palpable 2+ radial pulses. ABDOMEN: Mild distention. Incision site dressing clean dry and intact. [address] NG tube with minimal output. MUSCULOSKELETAL: No clubbing or cyanosis. NEUROLOGIC: No focal or lateralizing signs. Cranial nerves II through XII grossly intact. PSYCH: Appropriate affect. Alert and oriented to person, place and time. SKIN: Well perfused. Good skin turgor. ASSESSMENT: 1. Small bowel perforation 2. Ileus 3. Underweight, BMI 16.9 4. Prolonged n.p.o. status 5. Inadequate protein intake 6. Hypokalemia and hypomagnesemia PLAN: -Okay to leave NG tube out -Start clear liquid diet -Continue to monitor -Encourage patient ambulate -Continue TPN for nutrition support -Continue antibiotics -Continue pain management -Continue to monitor DEBORA drain output -Increase activity level -Encourage incentive spirometer use -DVT prophylaxis subcu heparin Physician Pulp House Supervisor note has been reviewed by physician. Signing provider agrees with the documented findings, assessment, and plan of care. Objective - Vital Signs Vital signs: Vital Signs Temp 98.1 F 09/16/23 07:29 Pulse 83 02/20/24 07:29 Resp 17 09/16/23 07:29 BP 119/83 09/16/23 07:29 Pulse Ox 100 09/16/23 07:29 FiO2 Intake & Output 09/15/23 09/16/23 09/16/23 18:59 06:59 18:59 Output Total 3847 5054 177 Balance -2545 -1260 -750 Weight 47.627 kg Output: Gastric Drainage 10 Drainage 370 560 400 Left Abdomen 20 100 40 Right Abdomen 350 460 360 Urine 2165 700 350 Other: Voiding Method Urinal Urinal - Labs CBC & Chem 7: 09/16/23 07:59 09/16/23 07:59 Labs: Abnormal Lab Results - Last 24 Hours (Table) 09/15/23 09/15/23 09/16/23 Range/Units 08:12 17:57 00:50 WBC (4.50-10.00) X 10*3/uL RBC 3.21 L (4.40-5.60) X 10*6/uL Hgb 8.2 L (13.0-17.0) g/dL Hct 25.1 L (39.6-50.0) % MCV 78.2 L (80.0-97.0) FL MCH 25.5 L (27.0-32.0) pg RDW 17.3 H (11.5-14.5) % Plt Count 473 H (140-440) X 10*3/uL MPV 9.2 L (9.5-12.2) FL POC Glucose (mg/dL) 137 H 132 H (70-110) mg/dL 09/16/23 09/16/23 09/16/23 Range/Units 05:45 07:59 12:06 WBC 10.55 H (4.50-10.00) X 10*3/uL RBC 3.55 L (4.40-5.60) X 10*6/uL Hgb 9.0 L (13.0-17.0) g/dL Hct 27.1 L (39.6-50.0) % MCV 76.3 L (80.0-97.0) FL MCH 25.4 L (27.0-32.0) pg RDW 17.2 H (11.5-14.5) % Plt Count 611 H (140-440) X 10*3/uL MPV 9.0 L (9.5-12.2) FL POC Glucose (mg/dL) 162 H 131 H (70-110) mg/dL
--- NOTE | 2023-09-16 16:23 | P.PN ---
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 He presented to the emergency department on 09/04/2023 for reports of abdominal pain/discomfort. He underwent full evaluation in the emergency department. Upon arrival vital signs stable with blood pressure 123/86, heart rate 84, respiratory rate 16, temp 98.4 F, and SpO2 of 97% on room air. Labs completed and reviewed. CBC showing leukocytosis with WBC count of 10.7. BMP revealing hypokalemia with potassium of 2.7, hyperchloremia with chloride of 109, hypocarbia with bicarb of 21, and anion gap of 5. Blood glucose was 97. Lactic acid was elevated at 2.1. Lipase elevated at 434. Urinalysis positive for protein, ketones, and 7 RBCs but negative for infection. CT abdomen and pelvis completed showing consolidation at the right lung base suspect possible aspiration versus atelectasis, and intussusception in the left lower quadrant contributing to suspected bowel obstruction with associated fluid distended colon. NG tube was placed and x-ray was completed to confirm placement. Patien t admitted under our services for bowel intussusception with concerns of obstruction with consultation to general surgery. Initially small bowel obstruction was being managed conservatively with NG tube and IV fluid hydration for bowel rest. On 09/06/2023 patient accidentally pulled NG tube resulting in need for replacement and follow-up x-ray revealed free air in abdomen. General surgery was notified immediately. Patient was taken to the OR and found to have peritonitis with small bowel perforation and underwent emergent small bowel resection with curg-ur-ycls duodenaljejunostomy. Patient had acute postsurgical blood loss anemia requiring transfusion of 1 unit PRBCs. PICC line was placed and patient was started on TPN. NG tube discontinued on 09/12/2023 and patient's diet slowly increased. On 09/14/2023 patient with increased abdominal pain and increased needs for IV pain medications. CT abdomen and pelvis was repeated 09/14/2023 showing surgical drainage catheters bilaterally with large stool and gas burden throughout the colon with redundant colon concerning for ileus, revealing barium extending to the rectum and new oral contrast is predominantly in the gastric lumen which is distended. NG tube was reinserted for bowel decompression and later removed on the evening of 09/15/2023. Physical exam: Patient is postoperative day 10. NG tube was removed last night and patient has had no episodes of nausea or vomiting. Discussed with patient importance of getting up out of bed and ambulating. Dilaudid to be decreased in dose and frequency and patient being placed on scheduled Ofirmev and as needed Toradol. Diet to be advanced per general surgery team. Patient to continue with TPN and lipids at this time. Vital signs reviewed and stable. General: Nontoxic, no acute distress. Emaciated, thin and frail build Derm: Skin warm and dry, normal coloration for ethnicity. Head: Atraumatic, normocephalic and symmetric. Eyes: EOMs intact, no lid lag, and anicteric sclera Mouth: no lip lesions, mucus membranes moist Cardiovascular: regular rate and rhythm with normal S1S2, no murmur, positive posterior tibial pulses bilaterally, and cap refill < 2 seconds. Lungs: Respirations even, regular, and unlabored on room air. Lungs CTA bilaterally, no rhonchi, no rales, no wheezing, and no accessory muscle usage. Abdominal: soft distended diffuse tenderness upon palpation to lower quadrants. Postsurgical dressing intact to midline abdomen and abdominal binder in place. DEBORA drains x2 remain in place. Ext: ROM intact. No gross muscle atrophy, no edema, no contractures Neuro: Speech clear, face symmetrical and CN II-XII grossly intact with no noted focal neuro deficits Psych: Alert and oriented to person, place, time, and situation. Appropriate and pleasant affect. Assessment and Plan of Care: Peritonitis with small bowel perforation status post emergent small bowel resection with xncy-sr-buvv duodenojejunostomy 09/06/2023 Postsurgical ileus Acute postsurgical blood loss anemia, status posttransfusion 1 unit PRBCs Thrombocytosis, likely reactive Hyponatremia Hypomagnesemia History of GERD with erosive esophagitis History of gastritis Elevated lipase with history of chronic pancreatitis Lactic acidosis, resolved High-anion gap metabolic acidosis, resolved Severe protein calorie malnutrition with BMI of 16.9 kg/m Patient has received a total of 2 units PRBCs during hospitalization. Currently hemoglobin stable at 9.0. General surgery following, reviewed documentation in chart CT abdomen and pelvis was repeated 09/14/2023 showing surgical drainage catheters bilaterally with large stool and gas burden throughout the colon with redundant colon concerning for ileus, revealing barium extending to the rectum and new oral contrast is predominantly in the gastric lumen which is distended. NG tube discontinued on 09/15/2023 and to remain out per general surgery team at this time. Patient to continue IV antibiotics with Zosyn 3.375 g every 8 hours Dietary following, TPN and lipids to continue Cultures were obtained during surgical procedure, showing no growth Discussed with patient importance of getting up out of bed and ambulating. Dilaudid to be decreased in dose and frequency and patient being placed on scheduled Ofirmev and as needed Toradol. -Order placed for Reglan 10 mg IVP every 6 hours. Diet to be advanced per general surgery team. Patient to continue with TPN and lipids at this time. General surgery following, reviewed documentation in chart. General surgery following DEBORA drainage output and recommending restarting patient on clear liquid diet. Symptomatic care and pain management. Zofran 4 mg IVP every 8 hours as needed for nausea and/or vomiting and Dilaudid 1 mg every 3 hours as needed for pain. Continue Protonix 40 mg IVP daily Continue glycemic protocol with rvutw-ib-jyjg glucose checks to be completed every 6 hours Right lung base consolidation, suspect aspiration versus atelectasis. Resolved. Abnormal x-ray imaging concerning for possible pneumomediastinum, ruled out by CT and patient cleared by canceling machine operator -Patient denies shortness of breath, cough, or congestion. Does report recent episodes of vomiting which is likely cause of possible aspiration. SPO2 100% on room air. Will continue to monitor. -Encourage use of incentive spirometry 10-15 times hourly while awake. History of pulmonary emboli -Patient was undergoing cancer treatments during this time, considered provoked PE. -DVT prophylaxis with heparin 5000 units subcutaneously every 8 hours. Hypokalemia, resolved Data reviewed: Labs completed and reviewed. CBC showing mild leukocytosis with WBC count of 10.55, stable normocytic anemia with hemoglobin of 9.0 and worsening thrombocytosis with platelet count of 611. BMP showing hyponatremia with sodium of 132. Glucose was 120. Magnesium 1.9. Liver profile normal findings with the exception of albumin remaining low at 2.2. Vital signs were reviewed. Blood pressure 119/83, heart rate 83, respiratory rate 17, temp 98.1 F, and SpO2 100% on room air. CODE STATUS: Full code DVT prophylaxis: Heparin Anticipated discharge date: Clinical course to determine Anticipated discharge place: Clinical course to determine Patient was seen independently by Nurse Pracitioner. This document was prepared using [employer] dictation software. Please allow for errors in special procedures tech, while rare they do occur Edin Davalos [employer]OCI[employer] rendered care for this patient independently, reviewed the findings and plan as documented in the note above. I did not physically speak with or examine the patient on this date. Objective - Vital Signs Vital signs: Vital Signs Temp 98.1 F 09/16/23 07:29 Pulse 83 09/16/23 07:29 Resp 17 09/16/23 07:29 BP 119/83 09/16/23 07:29 Pulse Ox 100 09/16/23 07:29 FiO2 Intake & Output 09/15/23 09/16/23 09/16/23 18:59 06:59 18:59 Output Total 2545 1260 Balance -2545 -1260 Weight 47.627 kg Output: Gastric Drainage 10 Drainage 370 560 Left Abdomen 20 100 Right Abdomen 350 460 Urine 2165 700 Other: Voiding Method Urinal Urinal - Labs CBC & Chem 7: 09/16/23 07:59 09/16/23 07:59 Labs: Abnormal Lab Results - Last 24 Hours (Table) 09/15/23 09/15/23 09/15/23 Range/Units 08:12 08:12 12:27 RBC 3.21 L (4.40-5.60) X 10*6/uL Hgb 8.2 L (13.0-17.0) g/dL Hct 25.1 L (39.6-50.0) % MCV 78.2 L (80.0-97.0) FL MCH 25.5 L (27.0-32.0) pg RDW 17.3 H (11.5-14.5) % Plt Count 473 H (140-440) X 10*3/uL MPV 9.2 L (9.5-12.2) FL Sodium 131 L (137-145) mmol/L Creatinine 0.43 L (0.66-1.25) mg/dL Glucose 114 H (74-99) mg/dL POC Glucose (mg/dL) 140 H (70-110) mg/dL Calcium 7.8 L (8.4-10.2) mg/dL Total Protein 4.5 L (6.3-8.2) g/dL Albumin 2.1 L (3.5-5.0) g/dL 09/15/23 09/16/23 09/16/23 Range/Units 17:57 00:50 05:45 RBC (4.40-5.60) X 10*6/uL Hgb (13.0-17.0) g/dL Hct (39.6-50.0) % MCV (80.0-97.0) FL MCH (27.0-32.0) pg RDW (11.5-14.5) % Plt Count (140-440) X 10*3/uL MPV (9.5-12.2) FL Sodium (137-145) mmol/L Creatinine (0.66-1.25) mg/dL Glucose (74-99) mg/dL POC Glucose (mg/dL) 137 H 132 H 162 H (70-110) mg/dL Calcium (8.4-10.2) mg/dL Total Protein (6.3-8.2) g/dL Albumin (3.5-5.0) g/dL
[2023-09-16 16:47] LABS: Glucose,Whole Blood 213 mg/dL (70-110)
[2023-09-16] MEDS: ACETAMINOPHEN IV (For NPO) 700 MG in EMPTY BAG 1 BAG IVPB SCH (17:36)
[2023-09-16] MEDS: METOCLOPRAMIDE 5 MG/ML 2 ML VIAL IVP SCH (17:37)
[2023-09-16] MEDS: HYDROmorphone 0.5 MG/0.5 ML SYRINGE IVP PRN (17:40)
[2023-09-16 21:36] LABS: Glucose,Whole Blood 207 mg/dL (70-110)
--- NOTE | 2023-09-16 21:56 | P.PN ---
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 On today's evaluation that is 09/16/2023, the patient continues to be afebrile, the patient is on room air and breathing comfortably, The patient denies having any chest pain or cough, the patient NG is in, the patient denies having any vomiting to me denies any worsening abdominal pain did not have any bowel movement. Patient white count is 10.55, creatinine 0.46 Objective - Vital Signs Vital signs: Vital Signs Temp 98.5 F 09/16/23 19:36 Pulse 84 09/16/23 19:36 Resp 15 09/16/23 19:36 BP 136/94 09/16/23 19:36 Pulse Ox 100 09/16/23 19:36 FiO2 Intake & Output 09/16/23 09/16/23 09/17/23 06:59 18:59 06:59 Intake Total 1028 Output Total 1260 1800 200 Balance -1260 -772 -200 Weight 46.748 kg Intake: Intake, IV Titration 1028 Amount Mvi, Adult No.4 with Vit 1028 K 10 ml Trace (Conc-1Ml/ Dose) 1 ml Sodium Chloride 4Meq/ml Vial 60 meq Magnesium Sulfate gm 1 gm In Amino Acid 5%- D15w+Lytes*E* 1,000 ml @ 75 mls/hr IV .[id number] [facility] Rx#:[id number] Output: Drainage 560 750 200 Left Abdomen 100 50 Right Abdomen 460 700 200 Urine 700 1050 Other: Voiding Method Urinal - Exam GENERAL DESCRIPTION: Middle-age male lying in bed in no distress RESPIRATORY SYSTEM: Unlabored breathing , decreased breath sounds at bases HEART: S1 S2 regular rate and rhythm , ABDOMEN: Soft , mild tenderness EXTREMITIES: No edema feet - Labs CBC & Chem 7: 09/16/23 07:59 09/16/23 07:59 Labs: Abnormal Lab Results - Last 24 Hours (Table) 09/16/23 09/16/23 09/16/23 Range/Units 00:50 05:45 07:59 WBC 10.55 H (4.50-10.00) X 10*3/uL RBC 3.55 L (4.40-5.60) X 10*6/uL Hgb 9.0 L (13.0-17.0) g/dL Hct 27.1 L (39.6-50.0) % MCV 76.3 L (80.0-97.0) FL MCH 25.4 L (27.0-32.0) pg RDW 17.2 H (11.5-14.5) % Plt Count 611 H (140-440) X 10*3/uL MPV 9.0 L (9.5-12.2) FL Sodium (137-145) mmol/L Creatinine (0.66-1.25) mg/dL BUN/Creatinine Ratio (12.00-20.00) Ratio Glucose (74-99) mg/dL POC Glucose (mg/dL) 132 H 162 H (70-110) mg/dL Calcium (8.4-10.2) mg/dL Total Protein (6.3-8.2) g/dL Albumin (3.5-5.0) g/dL 09/16/23 09/16/23 09/16/23 Range/Units 07:59 12:06 16:45 WBC (4.50-10.00) X 10*3/uL RBC (4.40-5.60) X 10*6/uL Hgb (13.0-17.0) g/dL Hct (39.6-50.0) % MCV (80.0-97.0) FL MCH (27.0-32.0) pg RDW (11.5-14.5) % Plt Count (140-440) X 10*3/uL MPV (9.5-12.2) FL Sodium 132 L (137-145) mmol/L Creatinine 0.46 L (0.66-1.25) mg/dL BUN/Creatinine Ratio 32.00 H (12.00-20.00) Ratio Glucose 120 H (74-99) mg/dL POC Glucose (mg/dL) 131 H 213 H (70-110) mg/dL Calcium 8.0 L (8.4-10.2) mg/dL Total Protein 4.6 L (6.3-8.2) g/dL Albumin 2.2 L (3.5-5.0) g/dL Assessment and Plan (1) Peritonitis Current Visit: Yes Status: Acute Code(s): K65.9 - PERITONITIS, UNSPECIFIED SNOMED Code(s): 89783933 (2) Small bowel perforation Current Visit: Yes Status: Acute Code(s): K63.1 - PERFORATION OF INTESTINE (NONTRAUMATIC) SNOMED Code(s): 333476730 Plan: 1patient is in the hospital with abdominal pain he did have a low-grade fever and has been diagnosed with a perforated small bowel status post laparotomy small bowel resection and pbgn-gc-[id number] duodenojejunostomy and concern for per itonitis likely organism need to cover with enteric gram-negative both aerobes and anaerobes 2-patient is afebrile white count normal, abdominal culture has been negative for any resistant pathogen 3-patient to continue with Zosyn while waiting for resumption of his oral activity before transitioning to oral antibiotic Dictation was produced using [employer] dictation software. please excuse any gramm atical, word or spelling errors. Time with Patient: Less than 30
[2023-09-16 23:30] LABS: Glucose,Whole Blood 125 mg/dL (70-110)
[2023-09-17 05:42] LABS: Glucose,Whole Blood 178 mg/dL (70-110)
[2023-09-17 07:35] LABS: African American GFR (CKD) >90 (>60 ml/min/1.73 sqM); Anion Gap 2 mmol/L; Blood Urea Nitrogen 17 mg/dL (9-20); Calcium 7.9 mg/dL (8.4-10.2); Carbon Dioxide 27 mmol/L (22-30); Chloride 102 mmol/L (98-107); Glucose 135 mg/dL (74-99); Magnesium 1.8 mg/dL (1.6-2.3); Non-African American GFR(CKD) >90 (>60 ml/min/1.73 sqM); Phosphorus 3.8 mg/dL (2.5-4.5); Potassium 4.6 mmol/L (3.5-5.1); Sodium 131 mmol/L (137-145)
[2023-09-17 11:43] LABS: Glucose,Whole Blood 179 mg/dL (70-110)
--- NOTE | 2023-09-17 12:12 | P.PN ---
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 On today's evaluation that is 09/17/2023, Patient is afebrile patient is currently on room air and denies having any shortness of breath, the patient denies any chest pain or cough, the patient denies any nausea vomiting, NG fell off yesterday, the patient abdominal pain is controlled with the pain medication and mention did have a bowel movement. The patient did have a creatinine of 0.49 Objective - Vital Signs Vital signs: Vital Signs Temp 97.5 F L 09/17/23 08:00 Pulse 88 09/17/23 08:00 Resp 12 09/17/23 02:13 BP 143/91 09/17/23 08:00 Pulse Ox 100 09/17/23 08:00 FiO2 Intake & Output 09/16/23 09/17/23 09/17/23 18:59 06:59 18:59 Intake Total 1028 954 Output Total 1800 1700 200 Balance -772 -746 -200 Weight 46.748 kg 47.5 kg 46.8 kg Intake: Intake, IV Titration 1028 954 Amount Mvi, Adult No.4 with Vit 1028 954 K 10 ml Trace (Conc-1Ml/ Dose) 1 ml Sodium Chloride 4Meq/ml Vial 60 meq Magnesium Sulfate gm 1 gm In Amino Acid 5%- D15w+Lytes*E* 1,000 ml @ 75 mls/hr IV .[id number] [facility] Rx#:[id number] Output: Drainage 750 500 200 Left Abdomen 50 40 Right Abdomen 700 460 200 Urine 1050 1200 Other: Voiding Method Urinal # Bowel Movements 1 - Exam GENERAL DESCRIPTION: Middle-age male lying in bed in no distress RESPIRATORY SYSTEM: Unlabored breathing , decreased breath sounds at bases HEART: S1 S2 regular rate and rhythm , ABDOMEN: Soft , mild tenderness EXTREMITIES: No edema feet - Labs CBC & Chem 7: 09/16/23 07:59 09/17/23 06:08 Labs: Abnormal Lab Results - Last 24 Hours (Table) 09/16/23 09/16/23 09/16/23 Range/Units 07:59 07:59 16:45 WBC 10.55 H (4.50-10.00) X 10*3/uL RBC 3.55 L (4.40-5.60) X 10*6/uL Hgb 9.0 L (13.0-17.0) g/dL Hct 27.1 L (39.6-50.0) % MCV 76.3 L (80.0-97.0) FL MCH 25.4 L (27.0-32.0) pg RDW 17.2 H (11.5-14.5) % Plt Count 611 H (140-440) X 10*3/uL MPV 9.0 L (9.5-12.2) FL Sodium 132 L (137-145) mmol/L Creatinine 0.46 L (0.66-1.25) mg/dL BUN/Creatinine Ratio 32.00 H (12.00-20.00) Ratio Glucose 120 H (74-99) mg/dL POC Glucose (mg/dL) 213 H (70-110) mg/dL Calcium 8.0 L (8.4-10.2) mg/dL Total Protein 4.6 L (6.3-8.2) g/dL Albumin 2.2 L (3.5-5.0) g/dL 09/16/23 09/16/23 09/17/23 Range/Units 21:33 23:26 05:40 WBC (4.50-10.00) X 10*3/uL RBC (4.40-5.60) X 10*6/uL Hgb (13.0-17.0) g/dL Hct (39.6-50.0) % MCV (80.0-97.0) FL MCH (27.0-32.0) pg RDW (11.5-14.5) % Plt Count (140-440) X 10*3/uL MPV (9.5-12.2) FL Sodium (137-145) mmol/L Creatinine (0.66-1.25) mg/dL BUN/Creatinine Ratio (12.00-20.00) Ratio Glucose (74-99) mg/dL POC Glucose (mg/dL) 207 H 125 H 178 H (70-110) mg/dL Calcium (8.4-10.2) mg/dL Total Protein (6.3-8.2) g/dL Albumin (3.5-5.0) g/dL 09/17/23 09/17/23 Range/Units 06:08 11:42 WBC (4.50-10.00) X 10*3/uL RBC (4.40-5.60) X 10*6/uL Hgb (13.0-17.0) g/dL Hct (39.6-50.0) % MCV (80.0-97.0) FL MCH (27.0-32.0) pg RDW (11.5-14.5) % Plt Count (140-440) X 10*3/uL MPV (9.5-12.2) FL Sodium 131 L (137-145) mmol/L Creatinine 0.49 L (0.66-1.25) mg/dL BUN/Creatinine Ratio (12.00-20.00) Ratio Glucose 135 H (74-99) mg/dL POC Glucose (mg/dL) 179 H (70-110) mg/dL Calcium 7.9 L (8.4-10.2) mg/dL Total Protein (6.3-8.2) g/dL Albumin (3.5-5.0) g/dL Assessment and Plan (1) Peritonitis Current Visit: Yes Status: Acute Code(s): K65.9 - PERITONITIS, UNSPECIFIED SNOMED Code(s): 10411503 (2) Small bowel perforation Current Visit: Yes Status: Acute Code(s): K63.1 - PERFORATION OF INTESTINE (NONTRAUMATIC) SNOMED Code(s): 228501807 Plan: 1patient is in the hospital with abdominal pain he did have a low-grade fever and has been diagnosed with a perforated small bowel status post laparotomy small bowel resection and [id number] duodenojejunostomy and concern for peritonitis likely organism need to cover with enteric gram-negative both aerobes and anaerobes 2-patient is afebrile white count normal, abdominal culture has been negative for any resistant pathogen 3-patient is slowly clinical improving and will continue with Zosyn and monitor clinical course closely Dictation was produced using [employer] dictation software. please excuse any grammatical, word or spelling errors. Time with Patient: Less than 30
--- NOTE | 2023-09-17 12:27 | P.PN ---
Subjective Progress Note Date: 09/17/23 I am seeing this patient in consultation today September 15, 2023 for an incidental finding of possible pneumomediastinum on chest x-ray. Patient is a 42-year-old -[place]ux[place] male with past medical history significant for oral cancer status post chemo/radiation, previous tracheostomy and PEG tube with reversal, pulmonary embolism, alcohol abuse, former tobacco smoker, and recent hospitalization at [facility] for bowel obstruction.. Patient was admitted back on September 04 for acute abdominal pain, and ended up developing a small bowel perforation. Patient was taken to the operating room on September 06 and underwent small bowel resection and grgy-tx-oakl duodenojejunostomy. No immediate perioperative complications reported. Late last night, the patient was having increased abdominal pain and sent for a CT of the abdomen and pelvis with contrast which was limited to barium contrast being hard and throughout the colon. There was large stool and gas burden throughout the colon with possible ileus. Barium extended into the rectum and new oral contrast is seen predominantly in the gastric lumen which is distended. There is chronic pancreatic changes as well. An NG tube was inserted for gastric decompression, and a follow-up chest x-ray was done to confirm placement. Chest x-ray findings were concerning for pneumomediastinum. This was not previously observed. No pneumothorax. NG tube coursing below the diaphragm. I sent the patient down for a chest/abdomen/pelvis CT which did not show any evidence of pneumomediastinum. No pneumothorax. On my evaluation, the patient is sitting up at the edge of the bed. He is on room air. No significant distress. No chest pain, shortness of breath, or subcutaneous emphysema. No neck pain. No nausea or vomiting. No trouble swallowing. No coughing. I am told the nasogastric insertion was atraumatic. He does endorse abdominal pain, but does not appear to be out of proportion to recent surgery. He is sitting comfortably at the edge of the bed. No facial grimacing or guarding. I am able to palpate his abdomen without a significant amount of distress. There is a nasogastric tube hooked to low intermittent suction with a minimal amount of yellow/brown output. He has TPN infusing through a left arm PICC line at the rate of 47 mL/h. Lab work was noted. Empirically covered on Zosyn. Vital signs are stable. The patient is seen today for 2023 and follow-up on the regular medical floor. He is currently sitting up at the bedside. Awake and alert in no acute distress. Maintaining O2 saturations in the 90s on room air. His nasogastric tube was advertently pulled out yesterday. He remains on TPN at 60 MLS per hour. Remains on lipids on Tuesdays and Fridays. Glucose 162. Phosphorus 4.1. He remains on antibiotics in the form of Zosyn. Heparin for DVT prophylaxis. The patient is seen today September 17, 2023 and follow-up on the regular medical floor. He is currently sitting up at the bedside. Awake and alert in no acute distress. He is maintaining O2 saturations in the 90s on room air. He is being nourished with TPN at 75 MLS per hour. He is continued on room for DVT prophylaxis. Antibiotics in the form of Zosyn. Objective - Vital Signs Vital signs: Vital Signs Temp 97.5 F L 09/17/23 08:00 Pulse 88 09/17/23 08:00 Resp 12 09/17/23 02:13 BP 143/91 09/17/23 08:00 Pulse Ox 100 09/17/23 08:00 FiO2 Intake & Output 09/16/23 09/17/23 09/17/23 18:59 06:59 18:59 Intake Total 1028 954 Output Total 1800 1700 200 Balance -772 -746 -200 Weight 46.748 kg 47.5 kg 46.8 kg Intake: Intake, IV Titration 1028 954 Amount Mvi, Adult No.4 with Vit 1028 954 K 10 ml Trace (Conc-1Ml/ Dose) 1 ml Sodium Chloride 4Meq/ml Vial 60 meq Magnesium Sulfate gm 1 gm In Amino Acid 5%- D15w+Lytes*E* 1,000 ml @ 75 mls/hr IV .[id number] [facility] Rx#:[id number] Output: Drainage 750 500 200 Left Abdomen 50 40 Right Abdomen 700 460 200 Urine 1050 1200 Other: Voiding Method Urinal # Bowel Movements 1 - Exam GENERAL EXAM: Alert, 42-year-old male, sitting up in bed, on room air, comfortable in no apparent distress. HEAD: Normocephalic and atraumatic EYES: Normal reaction of pupils, equal size. NOSE: Clear with pink turbinates. THROAT: No erythema or exudates. NECK: No masses, no JVD. No subcutaneous emphysema. CHEST: No chest wall deformity. LUNGS: Equal air entry with mild expiratory wheezes. On room air. No conversational dyspnea. CVS: S1 and S2 normal with no audible murmur, regular rhythm. No extra heart sounds ABDOMEN: There are 2 DEBORA drains. There is a midline abdominal incision with incisional dressing which is clean, dry. There are hypoactive bowel sounds. Abdomen is flat. No guarding or rigidity. SPINE: No scoliosis or deformity SKIN: No rashes CENTRAL NERVOUS SYSTEM: No focal deficits, tone is normal in all 4 extremities. EXTREMITIES: There is mild nonpitting edema of bilateral lower extremities. No clubbing, or cyanosis. Peripheral pulses are intact. - Labs CBC & Chem 7: 09/16/23 07:59 09/17/23 06:08 Labs: Abnormal Lab Results - Last 24 Hours (Table) 09/16/23 09/16/23 09/16/23 Range/Units 07:59 07:59 16:45 WBC 10.55 H (4.50-10.00) X 10*3/uL RBC 3.55 L (4.40-5.60) X 10*6/uL Hgb 9.0 L (13.0-17.0) g/dL Hct 27.1 L (39.6-50.0) % MCV 76.3 L (80.0-97.0) FL MCH 25.4 L (27.0-32.0) pg RDW 17.2 H (11.5-14.5) % Plt Count 611 H (140-440) X 10*3/uL MPV 9.0 L (9.5-12.2) FL Sodium 132 L (137-145) mmol/L Creatinine 0.46 L (0.66-1.25) mg/dL BUN/Creatinine Ratio 32.00 H (12.00-20.00) Ratio Glucose 120 H (74-99) mg/dL POC Glucose (mg/dL) 213 H (70-110) mg/dL Calcium 8.0 L (8.4-10.2) mg/dL Total Protein 4.6 L (6.3-8.2) g/dL Albumin 2.2 L (3.5-5.0) g/dL 09/16/23 09/16/23 09/17/23 Range/Units 21:33 23:26 05:40 WBC (4.50-10.00) X 10*3/uL RBC (4.40-5.60) X 10*6/uL Hgb (13.0-17.0) g/dL Hct (39.6-50.0) % MCV (80.0-97.0) FL MCH (27.0-32.0) pg RDW (11.5-14.5) % Plt Count (140-440) X 10*3/uL MPV (9.5-12.2) FL Sodium (137-145) mmol/L Creatinine (0.66-1.25) mg/dL BUN/Creatinine Ratio (12.00-20.00) Ratio Glucose (74-99) mg/dL POC Glucose (mg/dL) 207 H 125 H 178 H (70-110) mg/dL Calcium (8.4-10.2) mg/dL Total Protein (6.3-8.2) g/dL Albumin (3.5-5.0) g/dL 09/17/23 09/17/23 Range/Units 06:08 11:42 WBC (4.50-10.00) X 10*3/uL RBC (4.40-5.60) X 10*6/uL Hgb (13.0-17.0) g/dL Hct (39.6-50.0) % MCV (80.0-97.0) FL MCH (27.0-32.0) pg RDW (11.5-14.5) % Plt Count (140-440) X 10*3/uL MPV (9.5-12.2) FL Sodium 131 L (137-145) mmol/L Creatinine 0.49 L (0.66-1.25) mg/dL BUN/Creatinine Ratio (12.00-20.00) Ratio Glucose 135 H (74-99) mg/dL POC Glucose (mg/dL) 179 H (70-110) mg/dL Calcium 7.9 L (8.4-10.2) mg/dL Total Protein (6.3-8.2) g/dL Albumin (3.5-5.0) g/dL Assessment and Plan Assessment: Suspected pneumomediastinum, ruled out by follow-up chest CT. Chest x-ray findings are likely artifact Small Bowel perforation, status post small bowel resection/duodenojejunostomy anastomosis on 09/06/2023 Possible postoperative ileus Postoperative anemia, expected outcome of surgery History of oral cancer status post chemo/radiation History of previous tracheostomy, status post reversal History of previous PEG tube, with reversal History of pulmonary embolism History of alcohol abuse History of chronic pancreatitis History of GERD with esophagitis Former tobacco smoker Plan: The patient was seen and evaluated Medications and labs reviewed Remains on TPN and lipids Continued on antibiotics in the form of Zosyn Stable and on room air Increase his activity as tolerated I have personally seen and examined the patient, performed the documentation and the assessment and plan as written. Number of minutes spent on the visit: 10.
--- NOTE | 2023-09-17 13:54 | P.PN ---
Subjective Progress Note Date: 09/17/23 CHIEF COMPLAINT: Small bowel perforation HISTORY OF PRESENT ILLNESS: The patient is a 42-year-old male admitted with abdominal pain. He is status post exploratory laparotomy including small bowel resection for small bowel perforation. Patient reports his pain is doing better. He did have a bowel movement. He does report feeling hungry. Denies any nausea or vomiting. Tolerated the clear liquids. Did have a fall last night. Afebrile. PHYSICAL EXAM: VITAL SIGNS: Reviewed GENERAL: Well-developed in no acute distress. HEENT: No sclera icterus. Extraocular movements grossly intact. Moist buccal mucosa. Head is atraumatic, normocephalic. Hears conversational speech. No nasal drainage. NECK: Supple without lymphadenopathy. CHEST: Non-labored respirations and equal bilateral excursions. CARDIOVASCULAR: Palpable 2+ radial pulses. ABDOMEN: Mild distention. Incision site dressing clean dry and intact. [address] MUSCULOSKELETAL: No clubbing or cyanosis. NEUROLOGIC: No focal or lateralizing signs. Cranial nerves II through XII grossly intact. PSYCH: Appropriate affect. Alert and oriented to person, place and time. SKIN: Well perfused. Good skin turgor. ASSESSMENT: 1. Small bowel perforation 2. Ileus 3. Underweight, BMI 16.9 4. Prolonged n.p.o. status 5. Inadequate protein intake 6. Hypokalemia and hypomagnesemia PLAN: -Advance diet to full liquids -Add lactulose daily to stimulate bowel movements -Possible discharge tomorrow -Continue to monitor -Encourage patient ambulate -Continue TPN for nutrition support -Continue antibiotics -Continue pain management -Continue to monitor DEBORA drain output -Increase activity level -Encourage incentive spirometer use -DVT prophylaxis subcu heparin Physician [employer] note has been reviewed by physician. Signing provider agrees with the documented findings, assessment, and plan of care. Objective - Vital Signs Vital signs: Vital Signs Temp 97.5 F L 09/17/23 08:00 Pulse 88 09/17/23 08:00 Resp 12 09/17/23 02:13 BP 143/91 09/17/23 08:00 Pulse Ox 100 09/17/23 08:00 FiO2 Intake & Output 09/16/23 09/17/23 09/17/23 18:59 06:59 18:59 Intake Total 1028 954 Output Total 1800 1700 200 Balance -772 -746 -200 Weight 46.748 kg 47.5 kg 46.8 kg Intake: Intake, IV Titration 1028 954 Amount Mvi, Adult No.4 with Vit 1028 954 K 10 ml Trace (Conc-1Ml/ Dose) 1 ml Sodium Chloride 4Meq/ml Vial 60 meq Magnesium Sulfate gm 1 gm In Amino Acid 5%- D15w+Lytes*E* 1,000 ml @ 75 mls/hr IV .[id number] [facility] Rx#:[id number] Output: Drainage 750 500 200 Left Abdomen 50 40 Right Abdomen 700 460 200 Urine 1050 1200 Other: Voiding Method Urinal # Bowel Movements 1 - Labs CBC & Chem 7: 09/16/23 07:59 09/17/23 06:08 Labs: Abnormal Lab Results - Last 24 Hours (Table) 09/16/23 09/16/23 09/16/23 Range/Units 07:59 07:59 16:45 WBC 10.55 H (4.50-10.00) X 10*3/uL RBC 3.55 L (4.40-5.60) X 10*6/uL Hgb 9.0 L (13.0-17.0) g/dL Hct 27.1 L (39.6-50.0) % MCV 76.3 L (80.0-97.0) FL MCH 25.4 L (27.0-32.0) pg RDW 17.2 H (11.5-14.5) % Plt Count 611 H (140-440) X 10*3/uL MPV 9.0 L (9.5-12.2) FL Sodium 132 L (137-145) mmol/L Creatinine 0.46 L (0.66-1.25) mg/dL BUN/Creatinine Ratio 32.00 H (12.00-20.00) Ratio Glucose 120 H (74-99) mg/dL POC Glucose (mg/dL) 213 H (70-110) mg/dL Calcium 8.0 L (8.4-10.2) mg/dL Total Protein 4.6 L (6.3-8.2) g/dL Albumin 2.2 L (3.5-5.0) g/dL 09/16/23 09/16/23 09/17/23 Range/Units 21:33 23:26 05:40 WBC (4.50-10.00) X 10*3/uL RBC (4.40-5.60) X 10*6/uL Hgb (13.0-17.0) g/dL Hct (39.6-50.0) % MCV (80.0-97.0) FL MCH (27.0-32.0) pg RDW (11.5-14.5) % Plt Count (140-440) X 10*3/uL MPV (9.5-12.2) FL Sodium (137-145) mmol/L Creatinine (0.66-1.25) mg/dL BUN/Creatinine Ratio (12.00-20.00) Ratio Glucose (74-99) mg/dL POC Glucose (mg/dL) 207 H 125 H 178 H (70-110) mg/dL Calcium (8.4-10.2) mg/dL Total Protein (6.3-8.2) g/dL Albumin (3.5-5.0) g/dL 09/17/23 09/17/23 Range/Units 06:08 11:42 WBC (4.50-10.00) X 10*3/uL RBC (4.40-5.60) X 10*6/uL Hgb (13.0-17.0) g/dL Hct (39.6-50.0) % MCV (80.0-97.0) FL MCH (27.0-32.0) pg RDW (11.5-14.5) % Plt Count (140-440) X 10*3/uL MPV (9.5-12.2) FL Sodium 131 L (137-145) mmol/L Creatinine 0.49 L (0.66-1.25) mg/dL BUN/Creatinine Ratio (12.00-20.00) Ratio Glucose 135 H (74-99) mg/dL POC Glucose (mg/dL) 179 H (70-110) mg/dL Calcium 7.9 L (8.4-10.2) mg/dL Total Protein (6.3-8.2) g/dL Albumin (3.5-5.0) g/dL
[2023-09-17] MEDS: LACTULOSE 20 GM/30 ML CUP PO SCH (14:05)
--- NOTE | 2023-09-17 15:21 | P.PN ---
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 He presented to the emergency department on 09/04/2023 for reports of abdominal pain/discomfort. He underwent full evaluation in the emergency department. Upon arrival vital signs stable with blood pressure 123/86, heart rate 84, respiratory rate 16, temp 98.4 F, and SpO2 of 97% on room air. Labs completed and reviewed. CBC showing leukocytosis with WBC count of 10.7. BMP revealing hypokalemia with potassium of 2.7, hyperchloremia with chloride of 109, hypocarbia with bicarb of 21, and anion gap of 5. Blood glucose was 97. Lactic acid was elevated at 2.1. Lipase elevated at 434. Urinalysis positive for protein, ketones, and 7 RBCs but negative for infection. CT abdomen and pelvis completed showing consolidation at the right lung base suspect possible aspiration versus atelectasis, and intussusception in the left lower quadrant contributing to suspected bowel obstruction with associated fluid distended colon. NG tube was placed and x-ray was completed to confirm placement. Patien t admitted under our services for bowel intussusception with concerns of obstruction with consultation to general surgery. Initially small bowel obstruction was being managed conservatively with NG tube and IV fluid hydration for bowel rest. On 09/06/2023 patient accidentally pulled NG tube resulting in need for replacement and follow-up x-ray revealed free air in abdomen. General surgery was notified immediately. Patient was taken to the OR and found to have peritonitis with small bowel perforation and underwent emergent small bowel resection with [id number] duodenaljejunostomy. Patient had acute postsurgical blood loss anemia requiring transfusion of 1 unit PRBCs. PICC line was placed and patient was started on TPN. NG tube discontinued on 09/12/2023 and patient's diet slowly increased. On 09/14/2023 patient with increased abdominal pain and increased needs for IV pain medications. CT abdomen and pelvis was repeated 09/14/2023 showing surgical drainage catheters bilaterally with large stool and gas burden throughout the colon with redundant colon concerning for ileus, revealing barium extending to the rectum and new oral contrast is predominantly in the gastric lumen which is distended. NG tube was reinserted for bowel decompression and later removed on the evening of 09/15/2023. Physical exam: Patient is postoperative day 11. Dilaudid was decreased yesterday and patient was started on alternative pain medications with scheduled off her meds and as needed Toradol. Patient was also started on Reglan to promote bowel motility. Patient currently appears to be doing well. He is tolerating clear liquid diet. He continues to report diffuse abdominal pain but did have a soft formed bowel movement witnessed and documented by RN. Patient has had no episodes of nausea or vomiting. Vital signs reviewed and stable. General: Nontoxic, no acute distress. Emaciated, thin and frail build Derm: Skin warm and dry, normal coloration for ethnicity. Head: Atraumatic, normocephalic and symmetric. Eyes: EOMs intact, no lid lag, and anicteric sclera Mouth: no lip lesions, mucus membranes moist Cardiovascular: regular rate and rhythm with normal S1S2, no murmur, positive posterior tibial pulses bilaterally, and cap refill < 2 seconds. Lungs: Respirations even, regular, and unlabored on room air. Lungs CTA bilaterally, no rhonchi, no rales, no wheezing, and no accessory muscle usage. Abdominal: soft distended diffuse tenderness upon palpation to lower quadrants. Postsurgical dressing intact to midline abdomen and abdominal binder in place. DEBORA drains x2 remain in place. Ext: ROM intact. No gross muscle atrophy, no edema, no contractures Neuro: Speech clear, face symmetrical and CN II-XII grossly intact with no noted focal neuro deficits Psych: Alert and oriented to person, place, time, and situation. Appropriate and pleasant affect. Assessment and Plan of Care: Peritonitis with small bowel perforation status post emergent small bowel resect ion with [id number] duodenojejunostomy 09/06/2023 Postsurgical ileus Acute postsurgical blood loss anemia, status posttransfusion 1 unit PRBCs Thrombocytosis, likely reactive Hyponatremia Hypomagnesemia History of GERD with erosive esophagitis History of gastritis Elevated lipase with history of chronic pancreatitis Lactic acidosis, resolved High-anion gap metabolic acidosis, resolved Severe protein calorie malnutrition with BMI of 16.9 kg/m Patient has received a total of 2 units PRBCs during hospitalization. Currently hemoglobin stable at 9.0. General surgery following, reviewed documentation in chart CT abdomen and pelvis was repeated 09/14/2023 showing surgical drainage catheters bilaterally with large stool and gas burden throughout the colon with redundant colon concerning for ileus, revealing barium extending to the rectum and new oral contrast is predominantly in the gastric lumen which is distended. NG tube discontinued on 09/15/2023 and to remain out per general surgery team at this time. Patient to continue IV antibiotics with Zosyn 3.375 g every 8 hours Dietary following, TPN and lipids to continue Cultures were obtained during surgical procedure, showing no growth Discussed with patient importance of getting up out of bed and ambulating. Dilaudid decreased to 0.5 mg every 4 hours and patient to continue scheduled Ofirmev and as needed Toradol. -Continue Reglan 10 mg IVP every 6 hours. Diet to be advanced per general surgery team. Patient to continue with TPN and lipids at this time. General surgery following, reviewed documentation in chart. General surgery following DEBORA drainage output and plans to advance patient's diet. Symptomatic care and pain management. Zofran 4 mg IVP every 8 hours as needed for nausea and/or vomiting and Dilaudid 1 mg every 3 hours as needed for pain. Continue Protonix 40 mg IVP daily Continue glycemic protocol with [id number] glucose checks to be completed every 6 hours Right lung base consolidation, suspect aspiration versus atelectasis. Resolved. Abnormal x-ray imaging concerning for possible pneumomediastinum, ruled out by CT and patient cleared by wharfmaster -Patient denies shortness of breath, cough, or congestion. Does report recent episodes of vomiting which is likely cause of possible aspiration. SPO2 100% on room air. Will continue to monitor. -Encourage use of incentive spirometry 10-15 times hourly while awake. History of pulmonary emboli -Patient was undergoing cancer treatments during this time, considered provoked PE. -DVT prophylaxis with heparin 5000 units subcutaneously every 8 hours. Hypokalemia, resolved Data reviewed: Labs completed and reviewed. CBC showing mild hyponatremia with sodium of 131, potassium 4.6, chloride 102, anion gap of 2, BUN 17, creatinine 0.49, GFR greater than 90. Blood glucose 135. Potassium 1.8. Vital signs were reviewed. Blood pressure 143/91, heart rate 88, respiratory rate 12, temp 97.5 F, and SpO2 of 100% on room air. CODE STATUS: Full code DVT prophylaxis: Heparin Anticipated discharge date: Clinical course to determine Anticipated discharge place: Clinical course to determine Patient was seen independently by Nurse Pracitioner. This document was prepared using [employer] dictation software. Please allow for errors in hvac design engineer, while rare they do occur Patient was seen independently by Anoop PROJECT CONTROLLER. I agree with the assessment and plan done by my colleague. Objective - Vital Signs Vital signs: Vital Signs Temp 98.2 F 09/17/23 02:13 Pulse 68 09/17/23 02:13 Resp 12 09/17/23 02:13 BP 123/73 09/17/23 02:13 Pulse Ox 100 09/17/23 02:13 FiO2 Intake & Output 09/16/23 09/17/23 09/17/23 18:59 06:59 18:59 Intake Total 1028 954 Output Total 1800 1700 Balance -772 -746 Weight 46.748 kg 47.5 kg Intake: Intake, IV Titration 1028 954 Amount Mvi, Adult No.4 with Vit 1028 954 K 10 ml Trace (Conc-1Ml/ Dose) 1 ml Sodium Chloride 4Meq/ml Vial 60 meq Magnesium Sulfate gm 1 gm In Amino Acid 5%- D15w+Lytes*E* 1,000 ml @ 75 mls/hr IV .[id number] Rx#:[id number] Output: Drainage 750 500 Left Abdomen 50 40 Right Abdomen 700 460 Urine 1050 1200 - Labs CBC & Chem 7: 09/18/23 07:56 09/18/23 07:42 Labs: Abnormal Lab Results - Last 24 Hours (Table) 09/16/23 09/16/23 09/16/23 Range/Units 07:59 07:59 12:06 WBC 10.55 H (4.50-10.00) X 10*3/uL RBC 3.55 L (4.40-5.60) X 10*6/uL Hgb 9.0 L (13.0-17.0) g/dL Hct 27.1 L (39.6-50.0) % MCV 76.3 L (80.0-97.0) FL MCH 25.4 L (27.0-32.0) pg RDW 17.2 H (11.5-14.5) % Plt Count 611 H (140-440) X 10*3/uL MPV 9.0 L (9.5-12.2) FL Sodium 132 L (137-145) mmol/L Creatinine 0.46 L (0.66-1.25) mg/dL BUN/Creatinine Ratio 32.00 H (12.00-20.00) Ratio Glucose 120 H (74-99) mg/dL POC Glucose (mg/dL) 131 H (70-110) mg/dL Calcium 8.0 L (8.4-10.2) mg/dL Total Protein 4.6 L (6.3-8.2) g/dL Albumin 2.2 L (3.5-5.0) g/dL 09/16/23 09/16/23 09/16/23 Range/Units 16:45 21:33 23:26 WBC (4.50-10.00) X 10*3/uL RBC (4.40-5.60) X 10*6/uL Hgb (13.0-17.0) g/dL Hct (39.6-50.0) % MCV (80.0-97.0) FL MCH (27.0-32.0) pg RDW (11.5-14.5) % Plt Count (140-440) X 10*3/uL MPV (9.5-12.2) FL Sodium (137-145) mmol/L Creatinine (0.66-1.25) mg/dL BUN/Creatinine Ratio (12.00-20.00) Ratio Glucose (74-99) mg/dL POC Glucose (mg/dL) 213 H 207 H 125 H (70-110) mg/dL Calcium (8.4-10.2) mg/dL Total Protein (6.3-8.2) g/dL Albumin (3.5-5.0) g/dL 09/17/23 09/17/23 Range/Units 05:40 06:08 WBC (4.50-10.00) X 10*3/uL RBC (4.40-5.60) X 10*6/uL Hgb (13.0-17.0) g/dL Hct (39.6-50.0) % MCV (80.0-97.0) FL MCH (27.0-32.0) pg RDW (11.5-14.5) % Plt Count (140-440) X 10*3/uL MPV (9.5-12.2) FL Sodium 131 L (137-145) mmol/L Creatinine 0.49 L (0.66-1.25) mg/dL BUN/Creatinine Ratio (12.00-20.00) Ratio Glucose 135 H (74-99) mg/dL POC Glucose (mg/dL) 178 H (70-110) mg/dL Calcium 7.9 L (8.4-10.2) mg/dL Total Protein (6.3-8.2) g/dL Albumin (3.5-5.0) g/dL
[2023-09-17 16:48] LABS: Glucose,Whole Blood 186 mg/dL (70-110)
[2023-09-17] MEDS: 1: MVI, ADULT NO.4 WITH VIT K 10 ML, TRACE (CONC-1ML/DOSE) 1 ML, SODIUM CHLORIDE 4MEQ/ML IV SCH (18:02)
[2023-09-17] MEDS: KETOROLAC 15 MG/ML 1 ML VIAL IVP PRN (20:01)
[2023-09-17 23:56] LABS: Glucose,Whole Blood 143 mg/dL (70-110)
[2023-09-18 05:49] LABS: Glucose,Whole Blood 135 mg/dL (70-110)
[2023-09-18 07:53] VITALS: RESP 18
[2023-09-18 10:49] LABS: HCT 28.8 % (39.6-50.0); HGB 9.2 g/dL (13.0-17.0); MCH 25.2 pg (27.0-32.0); MCHC 31.9 g/dL (32.0-37.0); MCV 78.9 FL (80.0-97.0); Mean Platelet Volume 8.9 FL (9.5-12.2); NRBC Per 100 WBC 0 X 10*3/uL (0.00-0.01); Platelet Count 723 X 10*3/uL (140-440); RBC 3.65 X 10*6/uL (4.40-5.60); RDW 17.7 % (11.5-14.5); WBC 12.07 X 10*3/uL (4.50-10.00)
[2023-09-18 11:04] LABS: ALT 15 U/L (10-49); AST 26 U/L (14-35); Albumin 2.5 g/dL (3.8-4.9); Albumin/Globulin Ratio 1.09 Ratio (1.60-3.17); Alkaline Phosphatase 75 U/L (41-126); BUN/Creat Ratio 27.33 Ratio (12.00-20.00); Blood Urea Nitrogen 16.4 mg/dL (9.0-27.0); Calcium 8.6 mg/dL (8.7-10.3); Carbon Dioxide 25.3 mmol/L (21.6-31.8); Chloride 101 mmol/L (96-109); Globulin 2.3 g/dL (1.6-3.3); Glucose 122 mg/dL (70-110); Phosphorus 3.9 mg/dL (2.4-5.1); Potassium 4.8 mmol/L (3.5-5.5); Sodium 136 mmol/L (135-145); Total Bilirubin 0.3 mg/dL (0.3-1.2); Total Protein 4.8 g/dL (6.2-8.2)
[2023-09-18 11:29] LABS: Glucose,Whole Blood 220 mg/dL (70-110)
[2023-09-18 11:39] VITALS: BMI 14.6
--- NOTE | 2023-09-18 12:54 | P.PN ---
Subjective Progress Note Date: 09/18/23 CHIEF COMPLAINT: Small bowel perforation HISTORY OF PRESENT ILLNESS: The patient is a 42-year-old male admitted with abdominal pain. He is status post exploratory laparotomy including small bowel resection for small bowel perforation. Patient tolerated full liquid diet. He is having bowel movements and flatus. Denies any nausea or vomiting. He is hungry and requesting more food. Afebrile. WBC slightly elevated at 12.07 PHYSICAL EXAM: VITAL SIGNS: Reviewed GENERAL: Well-developed in no acute distress. HEENT: No sclera icterus. Extraocular movements grossly intact. Moist buccal mucosa. Head is atraumatic, normocephalic. Hears conversational speech. No nasal drainage. NECK: Supple without lymphadenopathy. CHEST: Non-labored respirations and equal bilateral excursions. CARDIOVASCULAR: Palpable 2+ radial pulses. ABDOMEN: Mild distention. Incision site dressing clean dry and intact. [address] serosanguineous output. MUSCULOSKELETAL: No clubbing or cyanosis. NEUROLOGIC: No focal or lateralizing signs. Cranial nerves II through XII grossly intact. PSYCH: Appropriate affect. Alert and oriented to person, place and time. SKIN: Well perfused. Good skin turgor. ASSESSMENT: 1. Small bowel perforation 2. Ileus 3. Underweight, BMI 16.9 4. Prolonged n.p.o. status 5. Inadequate protein intake 6. Hypokalemia and hypomagnesemia PLAN: -Advance diet to low fiber -Discontinue TPN -Continue a bowel regimen at discharge -Patient can be discharged from surgical standpoint when cleared by infectious disease -Discharge antibiotics per infectious disease service -Discharge with DEBORA drains -Increase activity level -Encourage incentive spirometer use -Continue pain management. Add Tylenol oral -DVT prophylaxis subcu heparin Physician Pad Cutter note has been reviewed by physician. Signing provider agrees with the documented findings, assessment, and plan of care. Objective - Vital Signs Vital signs: Vital Signs Temp 99.0 F 09/18/23 06:49 Pulse 85 09/18/23 06:49 Resp 18 09/18/23 06:49 BP 123/83 09/18/23 06:49 Pulse Ox 94 L 09/18/23 06:49 FiO2 Intake & Output 09/17/23 09/18/23 09/18/23 18:59 06:59 18:59 Output Total 780 1000 100 Balance -780 -1000 -100 Weight 46.8 kg 41.1 kg Output: Drainage 380 600 100 Left Abdomen 40 20 Right Abdomen 340 580 100 Urine 400 400 Other: Voiding Method Urinal Urinal # Voids 3 # Bowel Movements 1 - Labs CBC & Chem 7: 09/18/23 07:56 09/18/23 07:42 Labs: Abnormal Lab Results - Last 24 Hours (Table) 09/17/23 09/17/23 09/17/23 Range/Units 11:42 16:47 23:55 WBC (4.50-10.00) X 10*3/uL RBC (4.40-5.60) X 10*6/uL Hgb (13.0-17.0) g/dL Hct (39.6-50.0) % MCV (80.0-97.0) FL MCH (27.0-32.0) pg MCHC (32.0-37.0) g/dL RDW (11.5-14.5) % Plt Count (140-440) X 10*3/uL MPV (9.5-12.2) FL BUN/Creatinine Ratio (12.00-20.00) Ratio Glucose (70-110) mg/dL POC Glucose (mg/dL) 179 H 186 H 143 H (70-110) mg/dL Calcium (8.7-10.3) mg/dL Total Protein (6.2-8.2) g/dL Albumin (3.8-4.9) g/dL Albumin/Globulin Ratio (1.60-3.17) Ratio 09/18/23 09/18/23 09/18/23 Range/Units 05:39 07:42 07:56 WBC 12.07 H (4.50-10.00) X 10*3/uL RBC 3.65 L (4.40-5.60) X 10*6/uL Hgb 9.2 L (13.0-17.0) g/dL Hct 28.8 L (39.6-50.0) % MCV 78.9 L (80.0-97.0) FL MCH 25.2 L (27.0-32.0) pg MCHC 31.9 L (32.0-37.0) g/dL RDW 17.7 H (11.5-14.5) % Plt Count 723 H (140-440) X 10*3/uL MPV 8.9 L (9.5-12.2) FL BUN/Creatinine Ratio 27.33 H (12.00-20.00) Ratio Glucose 122 H (70-110) mg/dL POC Glucose (mg/dL) 135 H (70-110) mg/dL Calcium 8.6 L (8.7-10.3) mg/dL Total Protein 4.8 L (6.2-8.2) g/dL Albumin 2.5 L (3.8-4.9) g/dL Albumin/Globulin Ratio 1.09 L (1.60-3.17) Ratio
--- NOTE | 2023-09-18 13:21 | P.PN ---
Subjective Progress Note Date: 09/18/23 I am seeing this patient in consultation today September 15, 2023 for an incidental finding of possible pneumomediastinum on chest x-ray. Patient is a 42-year-old -[place] male with past medical history significant for oral cancer status post chemo/radiation, previous tracheostomy and PEG tube with reversal, pulmonary embolism, alcohol abuse, former tobacco smoker, and recent hospitalization at [facility] for bowel obstruction.. Patient was admitted back on September 04 for acute abdominal pain, and ended up developing a small bowel perforation. Patient was taken to the operating room on September 06 and underwent small bowel resection and [id number] duodenojejunostomy. No immediate perioperative complications reported. Late last night, the patient was having increased abdominal pain and sent for a CT of the abdomen and pelvis with contrast which was limited to barium contrast being hard and throughout the colon. There was large stool and gas burden throughout the colon with possible ileus. Barium extended into the rectum and new oral contrast is seen predominantly in the gastric lumen which is distended. There is chronic pancreatic changes as well. An NG tube was inserted for gastric decompression, and a follow-up chest x-ray was done to confirm placement. Chest x-ray findings were concerning for pneumomediastinum. This was not previously observed. No pneumothorax. NG tube coursing below the diaphragm. I sent the patient down for a chest/abdomen/pelvis CT which did not show any evidence of pneumomediastinum. No pneumothorax. On my evaluation, the patient is sitting up at the edge of the bed. He is on room air. No significant distress. No chest pain, shortness of breath, or subcutaneous emphysema. No neck pain. No nausea or vomiting. No trouble swallowing. No coughing. I am told the nasogastric insertion was atraumatic. He does endorse abdominal pain, but does not appear to be out of proportion to recent surgery. He is sitting comfortably at the edge of the bed. No facial grimacing or guarding. I am able to palpate his abdomen without a significant amount of distress. There is a nasogastric tube hooked to low intermittent suction with a minimal amount of yellow/brown output. He has TPN infusing through a left arm PICC line at the rate of 47 mL/h. Lab work was noted. Empirically covered on Zosyn. Vital signs are stable. The patient is seen today for 2023 and follow-up on the regular medical floor. He is currently sitting up at the bedside. Awake and alert in no acute distress. Maintaining O2 saturations in the 90s on room air. His nasogastric tube was advertently pulled out yesterday. He remains on TPN at 60 MLS per hour. Remains on lipids on Tuesdays and Fridays. Glucose 162. Phosphorus 4.1. He remains on antibiotics in the form of Zosyn. Heparin for DVT prophylaxis. The patient is seen today September 17, 2023 and follow-up on the regular medical floor. He is currently sitting up at the bedside. Awake and alert in no acute distress. He is maintaining O2 saturations in the 90s on room air. He is being nourished with TPN at 75 MLS per hour. He is continued on room for DVT prophylaxis. Antibiotics in the form of Zosyn. The patient is seen today September 18, 2023 in follow-up on the regular medical floor. He is currently awake and alert in no acute distress. Sitting up in a chair. Denies any worsening shortness of breath, cough or congestion. He is afebrile. Hemodynamically stable. He has been advanced to a low fiber diet. Remains on TPN at 50 to mL per hour. Continued on Zosyn. Heparin for DVT prophylaxis. White count 12.0. Hemoglobin 9.2. Platelets 723. Sodium 136. Potassium 4.8. Bicarb 25. BUN 16. Creatinine 0.6. Glucose 122. Objective - Vital Signs Vital signs: Vital Signs Temp 99.0 F 09/18/23 06:49 Pulse 85 09/18/23 06:49 Resp 18 09/18/23 06:49 BP 123/83 09/18/23 06:49 Pulse Ox 94 L 09/18/23 06:49 FiO2 Intake & Output 09/17/23 09/18/23 09/18/23 18:59 06:59 18:59 Output Total 780 1000 100 Balance -780 -1000 -100 Weight 46.8 kg 41.1 kg Output: Drainage 380 600 100 Left Abdomen 40 20 Right Abdomen 340 580 100 Urine 400 400 Other: Voiding Method Urinal Urinal # Voids 3 # Bowel Movements 1 - Exam GENERAL EXAM: Alert, 42-year-old male, up in a chair, on room air, in no apparent distress. HEAD: Normocephalic and atraumatic EYES: Normal reaction of pupils, equal size. NOSE: Clear with pink turbinates. THROAT: No erythema or exudates. NECK: No masses, no JVD. No subcutaneous emphysema. CHEST: No chest wall deformity. LUNGS: Equal air entry with mild expiratory wheezes. On room air. No conversational dyspnea. CVS: S1 and S2 normal with no audible murmur, regular rhythm. No extra heart sounds ABDOMEN: There are 2 DEBORA drains. There is a midline abdominal incision with incisional dressing which is clean, dry. There are hypoactive bowel sounds. SPINE: No scoliosis or deformity SKIN: No rashes CENTRAL NERVOUS SYSTEM: No focal deficits, tone is normal in all 4 extremities. EXTREMITIES: There is mild nonpitting edema of bilateral lower extremities. No clubbing, or cyanosis. Peripheral pulses are intact. - Labs CBC & Chem 7: 09/18/23 07:56 09/18/23 07:42 Labs: Abnormal Lab Results - Last 24 Hours (Table) 09/17/23 09/17/23 09/18/23 Range/Units 16:47 23:55 05:39 WBC (4.50-10.00) X 10*3/uL RBC (4.40-5.60) X 10*6/uL Hgb (13.0-17.0) g/dL Hct (39.6-50.0) % MCV (80.0-97.0) FL MCH (27.0-32.0) pg MCHC (32.0-37.0) g/dL RDW (11.5-14.5) % Plt Count (140-440) X 10*3/uL MPV (9.5-12.2) FL BUN/Creatinine Ratio (12.00-20.00) Ratio Glucose (70-110) mg/dL POC Glucose (mg/dL) 186 H 143 H 135 H (70-110) mg/dL Calcium (8.7-10.3) mg/dL Total Protein (6.2-8.2) g/dL Albumin (3.8-4.9) g/dL Albumin/Globulin Ratio (1.60-3.17) Ratio 09/18/23 09/18/23 09/18/23 Range/Units 07:42 07:56 11:28 WBC 12.07 H (4.50-10.00) X 10*3/uL RBC 3.65 L (4.40-5.60) X 10*6/uL Hgb 9.2 L (13.0-17.0) g/dL Hct 28.8 L (39.6-50.0) % MCV 78.9 L (80.0-97.0) FL MCH 25.2 L (27.0-32.0) pg MCHC 31.9 L (32.0-37.0) g/dL RDW 17.7 H (11.5-14.5) % Plt Count 723 H (140-440) X 10*3/uL MPV 8.9 L (9.5-12.2) FL BUN/Creatinine Ratio 27.33 H (12.00-20.00) Ratio Glucose 122 H (70-110) mg/dL POC Glucose (mg/dL) 220 H (70-110) mg/dL Calcium 8.6 L (8.7-10.3) mg/dL Total Protein 4.8 L (6.2-8.2) g/dL Albumin 2.5 L (3.8-4.9) g/dL Albumin/Globulin Ratio 1.09 L (1.60-3.17) Ratio Assessment and Plan Assessment: Suspected pneumomediastinum, ruled out by follow-up chest CT. Chest x-ray findings are likely artifact stable and on room air Small Bowel perforation, status post small bowel resection/duodenojejunostomy anastomosis on 09/06/2023 Possible postoperative ileus Postoperative anemia, expected outcome of surgery History of oral cancer status post chemo/radiation History of previous tracheostomy, status post reversal History of previous PEG tube, with reversal History of pulmonary embolism History of alcohol abuse History of chronic pancreatitis History of GERD with esophagitis Former tobacco smoker Plan: The patient was seen and evaluated Medications and labs reviewed Remains on TPN and lipids Diet being advanced Continued on Zosyn Stable and on room air Increase his activity as tolerated I have personally seen and examined the patient, performed the documentation and the assessment and plan as written. Number of minutes spent on the visit: 10.
[2023-09-18] MEDS: ACETAMINOPHEN TAB 500 MG TAB PO SCH (14:10)
--- NOTE | 2023-09-18 14:35 | P.PN ---
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 On today's evaluation that is 09/18/2023,the patient denies any fever or any chills, patient is breathing comfortably on room air, the patient denies chest pain shortness of breath and no significant cough, patient tolerating his diet no nausea no vomiting mention had a bowel movement abdominal pain has improved feeling better wants to go home. Patient white count is 12.07, creatinine 0.6 culture has been negative Objective - Vital Signs Vital signs: Vital Signs Temp 98.9 F 09/18/23 13:45 Pulse 100 09/18/23 13:45 Resp 18 09/18/23 13:45 BP 111/77 09/18/23 13:45 Pulse Ox 99 09/18/23 13:45 FiO2 Intake & Output 09/17/23 09/18/23 09/18/23 18:59 06:59 18:59 Output Total 780 1000 100 Balance -780 -1000 -100 Weight 46.8 kg 41.1 kg Output: Drainage 380 600 100 Left Abdomen 40 20 Right Abdomen 340 580 100 Urine 400 400 Other: Voiding Method Urinal Urinal # Voids 3 # Bowel Movements 1 - Exam GENERAL DESCRIPTION: Middle-age male lying in bed in no distress RESPIRATORY SYSTEM: Unlabored breathing , decreased breath sounds at bases HEART: S1 S2 regular rate and rhythm , ABDOMEN: Soft , mild tenderness EXTREMITIES: No edema feet - Labs CBC & Chem 7: 09/18/23 07:56 09/18/23 07:42 Labs: Abnormal Lab Results - Last 24 Hours (Table) 09/17/23 09/17/23 09/18/23 Range/Units 16:47 23:55 05:39 WBC (4.50-10.00) X 10*3/uL RBC (4.40-5.60) X 10*6/uL Hgb (13.0-17.0) g/dL Hct (39.6-50.0) % MCV (80.0-97.0) FL MCH (27.0-32.0) pg MCHC (32.0-37.0) g/dL RDW (11.5-14.5) % Plt Count (140-440) X 10*3/uL MPV (9.5-12.2) FL BUN/Creatinine Ratio (12.00-20.00) Ratio Glucose (70-110) mg/dL POC Glucose (mg/dL) 186 H 143 H 135 H (70-110) mg/dL Calcium (8.7-10.3) mg/dL Total Protein (6.2-8.2) g/dL Albumin (3.8-4.9) g/dL Albumin/Globulin Ratio (1.60-3.17) Ratio 09/18/23 09/18/23 09/18/23 Range/Units 07:42 07:56 11:28 WBC 12.07 H (4.50-10.00) X 10*3/uL RBC 3.65 L (4.40-5.60) X 10*6/uL Hgb 9.2 L (13.0-17.0) g/dL Hct 28.8 L (39.6-50.0) % MCV 78.9 L (80.0-97.0) FL MCH 25.2 L (27.0-32.0) pg MCHC 31.9 L (32.0-37.0) g/dL RDW 17.7 H (11.5-14.5) % Plt Count 723 H (140-440) X 10*3/uL MPV 8.9 L (9.5-12.2) FL BUN/Creatinine Ratio 27.33 H (12.00-20.00) Ratio Glucose 122 H (70-110) mg/dL POC Glucose (mg/dL) 220 H (70-110) mg/dL Calcium 8.6 L (8.7-10.3) mg/dL Total Protein 4.8 L (6.2-8.2) g/dL Albumin 2.5 L (3.8-4.9) g/dL Albumin/Globulin Ratio 1.09 L (1.60-3.17) Ratio Assessment and Plan (1) Peritonitis Current Visit: Yes Status: Acute Code(s): K65.9 - PERITONITIS, UNSPECIFIED SNOMED Code(s): 92730498 (2) Small bowel perforation Current Visit: Yes Status: Acute Code(s): K63.1 - PERFORATION OF INTESTINE (NONTRAUMATIC) SNOMED Code(s): 745877007 Plan: 1patient is in the hospital with abdominal pain he did have a low-grade fever and has been diagnosed with a perforated small bowel status post laparotomy small bowel resection and [id number] duodenojejunostomy and concern for peritonitis likely organism need to cover with enteric gram-negative both aerobes and anaerobes 2-patient is afebrile white count normal, abdominal culture has been negative for any resistant pathogen, the patient did have repeat CT abdominal pelvis on 09/15/2023 did not mention any abscess or colitis 3-patient to continue with Zosyn while inpatient however the patient be able to finish therapy with oral Augmentin x 7 days on discharge once stable for discharge from surgery Dictation was produced using [employer] dictation software. please excuse any grammatical, word or spelling errors. Time with Patient: Less than 30
[2023-09-18 14:53] VITALS: BP 111/77; PULSE 100; TEMP 98.9
--- NOTE | 2023-09-18 15:34 | P.DS ---
Providers Date of admission: 09/04/23 00:59 Expected date of discharge: 09/18/23 Attending physician: Ronal Smith MD Consults: 09/04/23 00:59 Consult Physician Urgent Consulting Provider: Leta Easton Consult Reason/Comments: bowel obstruction Do you want consulting provider notified?: Already Contacted 09/08/23 20:24 Consult Physician Urgent Consulting Provider: Fransisco White Consult Reason/Comments: Peritonitis, small bowel perforation antibiotic management Do you want consulting provider notified?: Yes, Notify in am 09/14/23 23:07 Consult Physician Routine Consulting Provider: Kvng Daniel Consult Reason/Comments: pneumomediastinum Do you want consulting provider notified?: Yes Primary care physician: Stated None Hospital Course: Discharge Diagnosis: Peritonitis with small bowel perforation status post emergent small bowel resection with [id number] duodenojejunostomy 09/06/2023. Patient underwent extensive course of IV antibiotics, he was requiring TPN to allow for bowel rest, and was manage not only by our hospitalist team but also general surgeon, infectious disease, and marine engineer cpvec. Postsurgical ileus resolved. Patient having normal bowel function. He is tolerating a regular diet with no episodes of nausea or vomiting. Postsurgical pain is controlled. Patient being discharged home with DEBORA drains in place. Patient provided with education and instructions on how to milk DEBORA drains and instructed to document output and a daily log to bring with him to his follow-up appointment with surgeon.. Cultures obtained during surgery did not grow any resistant bacteria. Per infectious disease specialist patient being discharged home on an additional 7 days of antibiotics with Augmentin 875/125 mg tablets twice daily. Patient to follow-up outpatient with PCP, general surgery, and infectious disease. Postsurgical ileus, resolved. Acute postsurgical blood loss anemia, status post a total of 2 units of PRBCs transfused during hospitalization. Hemoglobin stable at 9.2 on day of discharge. Thrombocytosis, likely reactive. Thrombocytosis with platelet count of 723 on day of discharge. Repeat CBC to be completed in 3 days with results to be sent to PCP, Dr. Esaton, and Dr. White to follow-up for resolution and/or further management if indicated. Hyponatremia. Resolved Hypomagnesemia. Resolved. History of GERD with erosive esophagitis. Patient discharged home on Protonix 40 mg daily for GI prophylaxis. History of gastritis Elevated lipase with history of chronic pancreatitis Lactic acidosis, resolved High-anion gap metabolic acidosis. Resolved. Severe protein calorie malnutrition with BMI of 16.9 kg/m. Recommend continuation of protein supplements 3 times daily between meals. Right lung base consolidation, suspect aspiration versus atelectasis. Resolved. Abnormal x-ray imaging concerning for possible pneumomediastinum, ruled out by CT and patient cleared by marine engineer cpvec History of pulmonary emboli. Patient was undergoing cancer treatments during this time, considered provoked PE. Hypokalemia, resolved Hospital Course: Patient is a pleasant 42-year-old male with a past medical history of chronic pancreatitis, alcoholism, history of pulmonary emboli, right-sided jaw cancer status post chemo/radiation treatment, GERD with erosive esophagitis, and gastritis. He presented to the emergency department on 09/04/2023 for reports of abdominal pain/discomfort. He underwent full evaluation in the emergency department. Upon arrival vital signs stable with blood pressure 123/86, heart rate 84, respiratory rate 16, temp 98.4 F, and SpO2 of 97% on room air. Labs completed and reviewed. CBC showing leukocytosis with WBC count of 10.7. BMP revealing hypokalemia with potassium of 2.7, hyperchloremia with chloride of 109, hypocarbia with bicarb of 21, and anion gap of 5. Blood glucose was 97. Lactic acid was elevated at 2.1. Lipase elevated at 434. Urinalysis positive for protein, ketones, and 7 RBCs but negative for infection. CT abdomen and pelvis completed showing consolidation at the right lung base suspect possible aspiration versus atelectasis, and intussusception in the left lower quadrant contributing to suspected bowel obstruction with associated fluid distended colon. NG tube was placed and x-ray was completed to confirm placement. Patient admitted under our services for bowel intussusception with concerns of obstruction with consultation to general surgery. Initially small bowel obstruction was being managed conservatively with NG tube and IV fluid hydration for bowel rest. On 09/06/2023 patient accidentally pulled NG tube resulting in need for replacement and follow-up x-ray revealed free air in abdomen. General surgery was notified immediately. Patient was taken to the OR and found to have peritonitis with small bowel perforation and underwent emergent small bowel resection with kpfx-wu-[id number] duodenaljejunostomy. Patient had acute postsurgical blood loss anemia requiring transfusion of 1 unit PRBCs. PICC line was placed and patient was started on TPN. NG tube discontinued on 09/12/2023 and patient's diet slowly increased. On 09/14/2023 patient with increased abdominal pain and increased needs for IV pain medications. CT abdomen and pelvis was repeated 09/14/2023 showing surgical drainage catheters bilaterally with large stool and gas burden throughout the colon with redundant colon concerning for ileus, revealing barium extending to the rectum and new oral contrast is predominantly in the gastric lumen which is distended. NG tube was reinserted for bowel decompression and later removed on the evening of 09/15/2023. Patient underwent extensive course of IV antibiotics, he was requiring TPN to allow for bowel rest, and was managed not only by our hospitalist team but also general surgeon, infectious disease, and marine engineer cpvec. Postsurgical ileus resolved. Patient now having normal bowel function. He is tolerating a regular diet with no epi sodes of nausea or vomiting. Postsurgical pain is controlled. Patient being discharged home with DEBORA drains in place. Patient provided with education and instructions on how to milk DEBORA drains and instructed to document output and a daily log to bring with him to his follow-up appointment with surgeon.. Cultures obtained during surgery did not grow any resistant bacteria. Per infectious disease specialist patient being discharged home on an additional 7 days of antibiotics with Augmentin 875/125 mg tablets twice daily. Patient to follow-up outpatient with PCP, general surgery, and infectious disease. Physical exam: Vital signs reviewed and stable. General: Nontoxic, no acute distress. Emaciated, thin and frail build Derm: Skin warm and dry, normal coloration for ethnicity. Head: Atraumatic, normocephalic and symmetric. Eyes: EOMs intact, no lid lag, and anicteric sclera Mouth: no lip lesions, mucus membranes moist Cardiovascular: regular rate and rhythm with normal S1S2, no murmur, positive posterior tibial pulses bilaterally, and cap refill < 2 seconds. Lungs: Respirations even, regular, and unlabored on room air. Lungs CTA bi laterally, no rhonchi, no rales, no wheezing, and no accessory muscle usage. Abdominal: soft distended diffuse tenderness upon palpation to lower quadrants. Postsurgical dressing intact to midline abdomen and abdominal binder in place. DEBORA drains x2 remain in place. Ext: ROM intact. No gross muscle atrophy, no edema, no contractures Neuro: Speech clear, face symmetrical and CN II-XII grossly intact with no noted focal neuro deficits Psych: Alert and oriented to person, place, time, and situation. Appropriate and pleasant affect. A total of 39 minutes of time were spent preparing this complex discharge summary. Pt was discharged on 09/18/2023 at 3:11 PM. Patient was seen independently by Nurse Practitioner. This document was prepared using [employer] dictation software. Please allow for errors in intranet developer while rare they do occur. Edin Davalos NP rendered care for this patient independently, reviewed the findings and plan as documented in the note above. I did not physically speak with or examine the patient on this date. Patient Condition at Discharge: Stable Plan - Discharge Summary New Discharge Prescriptions: New Pantoprazole [Protonix] 40 mg PO DAILY 30 Days #30 tab Amoxic-Pot Clav 875-125Mg [Augmentin 875-125] 1 tab PO Q12HR 7 Days #14 tab Lactulose [Cephulac] 30 gm PO DAILY 30 Days #900 gm Metoclopramide [Reglan] 5 mg PO ACHS PRN #60 tab PRN Reason: Nausea Ibuprofen [Motrin] 600 mg PO Q6HR PRN #30 tab PRN Reason: Pain Control Discharge Medication List Amoxic-Pot Clav 875-125Mg [Augmentin 875-125] 1 tab PO Q12HR 7 Days #14 tab 09/18/23 [Rx] Ibuprofen [Motrin] 600 mg PO Q6HR PRN #30 tab 09/18/23 [Rx] Lactulose [Cephulac] 30 gm PO DAILY 30 Days #900 gm 09/18/23 [Rx] Metoclopramide [Reglan] 5 mg PO ACHS PRN #60 tab 09/18/23 [Rx] Pantoprazole [Protonix] 40 mg PO DAILY 30 Days #30 tab 09/18/23 [Rx] Follow up Appointment(s)/Referral(s): Lorrie Lara III, MD [STAFF PHYSICIAN] - 09/24/23 1:30 pm (CALL YOUR INSURANCE COMPANY TO CONFIRM PROVIDOR IS IN NETWORK Please bring insurance card and ID to appointment. Any questions call office.) Leta Easton MD [STAFF PHYSICIAN] - 09/23/23 11:30 am Fransisco White MD [STAFF PHYSICIAN] - 10/01/23 3:[address] [NON-STAFF] - As Needed (*Call to see if they can accept the medical equipment you would like to donate. ) Ambulatory/Diagnostic Orders: Complete Blood Count w/diff [LAB.AMB] Time Frame: 3 Days, Location: None Selected Patient Instructions/Handouts: Homero-Dalton Drain Care (DC), Bowel Resection (DC) Activity/Diet/Wound Care/Special Instructions: Patient requires a walker due to weakness caused by bowel surgery. Keep a log of DEBORA drain output and bring with you to your follow-up appointment Recommend continuation of protein supplements, such as Ensure 3 times daily between meals. Milk/strip drains 2-3 times a day. Discharge Disposition: HOME SELF-CARE
--- NOTE | 2023-09-19 14:18 | CDI ---
Documentation Clarification Form Date: 09/19/2023 02:05:47 PM From: Eda Sharif Phone: Admit Date: 09/04/2023 12:59:00 AM Patient Name: Adilson Otero Visit Number: [id number] Discharge Date: 09/18/2023 06:20:00 PM ATTENTION: The Clinical Documentation Specialists (CDI) and [facility] Coding Staff appreciate your assistance in clarifying documentation. Please respond to the clarification below the line at the bottom and electronically sign. The CDI & [facility] Coding staff will review the response and follow-up if needed. Please note: Queries are made part of the Legal Health Record. If you have any questions, please contact the author of this message via ITS. Dr. Porsha Moses Your patient has radiology results: cephalic and basilic veins werethrombosed per 09/09 Procedure Note. Please clarify if there is an additional diagnosis and/or clinical significance related to this result. History/Risk Factors: 42yo M, Perforatedviscus, poor venous access, need forTPN Clinical indicators: UtilizingUSthe cephalic and basilic veins werethrombosedand due to the fact that Rt catheter was in place and Rt veins wereoccludedthe brachial veins were visualized and shown to be compressiblewithout anyvisiblethrombus. Treatment: LUE brachial veinPICCline underultrasoundandfluoroscopic guidance. Centralvenogram Is there an additional diagnosis and/or clinical significance related to the above radiology result? 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
== END 2023-09-18 18:20 | disposition home or self-care (01) | DRG 230 ==
LOC: EC 20:55 → 4SSUR 09-04 00:59
PROVIDERS: ADMIT Internal Medicine; ATTEND Internal Medicine
PROC: 0D9670Z Drainage of Stomach with Drainage Device, Via Natural or Artificial Opening (ICD-10-PCS; 2023-09-04)
PROC: 0D190ZA Bypass Duodenum to Jejunum, Open Approach (ICD-10-PCS; 2023-09-06)
PROC: 0DT80ZZ Resection of Small Intestine, Open Approach (ICD-10-PCS; principal; 2023-09-06 17:07)
PROC: 30233N1 Transfusion of Nonautologous Red Blood Cells into Peripheral Vein, Percutaneous Approach (ICD-10-PCS; 2023-09-07)
PROC: 3E0336Z Introduction of Nutritional Substance into Peripheral Vein, Percutaneous Approach (ICD-10-PCS; 2023-09-09)
PROC: 05HA33Z Insertion of Infusion Device into Left Brachial Vein, Percutaneous Approach (ICD-10-PCS; 2023-09-09)
PROC: B51N1ZZ Fluoroscopy of Left Upper Extremity Veins using Low Osmolar Contrast (ICD-10-PCS; 2023-09-09)
DX: K56.1 Intussusception (principal); K63.1 Perforation of intestine (nontraumatic); A41.9 Sepsis, unspecified organism; K56.609 Unspecified intestinal obstruction, unspecified as to partial versus complete obstruction; K65.8 Other peritonitis; E43 Unspecified severe protein-calorie malnutrition; T17.818A Gastric contents in other parts of respiratory tract causing other injury, initial encounter; E87.20 Acidosis, unspecified; K22.10 Ulcer of esophagus without bleeding; Z93.0 Tracheostomy status; K86.1 Other chronic pancreatitis; F10.21 Alcohol dependence, in remission; Z93.1 Gastrostomy status; K56.7 Ileus, unspecified; E87.1 Hypo-osmolality and hyponatremia; D62 Acute posthemorrhagic anemia; I82.711 Chronic embolism and thrombosis of superficial veins of right upper extremity; E87.8 Other disorders of electrolyte and fluid balance, not elsewhere classified; D75.838 Other thrombocytosis; W19.XXXA Unspecified fall, initial encounter; Z68.1 Body mass index [BMI] 19.9 or less, adult; Z79.01 Long term (current) use of anticoagulants; Z92.3 Personal history of irradiation; Z92.21 Personal history of antineoplastic chemotherapy; Z87.891 Personal history of nicotine dependence; E87.6 Hypokalemia; E83.42 Hypomagnesemia; K21.00 Gastro-esophageal reflux disease with esophagitis, without bleeding; Y92.239 Unspecified place in hospital as the place of occurrence of the external cause; Z85.819 Personal history of malignant neoplasm of unspecified site of lip, oral cavity, and pharynx; Z86.711 Personal history of pulmonary embolism; Z81.1 Family history of alcohol abuse and dependence; Z87.19 Personal history of other diseases of the digestive system; Z79.899 Other long term (current) drug therapy; Z28.311 Partially vaccinated for COVID-19
CPT/HCPCS: 36415; 36573; 71045; 71250; 74019; 74176; 74177; 74270; 80048; 80053; 81001; 82330; 83036; 83605; 83690; 83735; 84100; 84132; 84478; 85025; 85027; 86850; 86900; 86901; 86920; 87070; 87075; 87205; 88307; 94760; 96361; 96365; 96375; 99285

== ENCOUNTER 2023-09-30 08:56 | Emergency (ER) | payer OTHER ==
[2023-09-30 09:12] VITALS: TEMP 98.6
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
--- NOTE | 2023-09-30 09:42 | XR ---
EXAMINATION TYPE: XR chest 2V DATE OF EXAM: 09/30/2023 COMPARISON: 09/14/2023 HISTORY: 43 year-old male abdominal pain TECHNIQUE: AP and lateral views FINDINGS: Right anterior chest wall injection port with catheter tip at the cavoatrial junction. Heart normal s ize. Aorta and pulmonary vasculature within normal limits. No consolidation or pleural effusion. IMPRESSION: No acute cardiopulmonary process.
[2023-09-30 10:19] LABS: Anisocytosis Slight; Basophils % (A) 0 %; Eosinophils # (A) 0.5 k/uL (0-0.7); Eosinophils % (A) 5 %; HCT 27.6 % (39.0-53.0); HGB 8.5 gm/dL (13.0-17.5); Hypochromasia Marked; Lymphocytes % (A) 11 %; MCH 25.2 pg (25.0-35.0); MCHC 30.8 g/dL (31.0-37.0); MCV 81.8 fL (80.0-100.0); Mean Platelet Volume 7.1; Microcytosis Slight; Monocytes # (A) 0.4 k/uL (0-1.0); Monocytes % (A) 4 %; Neutrophils # (A) 6.7 k/uL (1.3-7.7); Neutrophils % (A) 78 %; Platelet Count 650 k/uL (150-450); Poikilocytosis Slight; RBC 3.37 m/uL (4.30-5.90); RDW 17.7 % (11.5-15.5); WBC 8.6 k/uL (3.8-10.6)
[2023-09-30 10:31] LABS: INR 0.9 (<1.2); Partial Thromboplastin Time 27.2 sec (22.0-30.0)
[2023-09-30 10:32] LABS: ALT 16 U/L (4-49); AST 21 U/L (17-59); African American GFR (CKD) >90 (>60 ml/min/1.73 sqM); Albumin 2.4 g/dL (3.5-5.0); Alkaline Phosphatase 92 U/L (38-126); Anion Gap 2 mmol/L; Blood Urea Nitrogen 21 mg/dL (9-20); Calcium 7.9 mg/dL (8.4-10.2); Carbon Dioxide 25 mmol/L (22-30); Chloride 115 mmol/L (98-107); Glucose 102 mg/dL (74-99); Non-African American GFR(CKD) >90 (>60 ml/min/1.73 sqM); Potassium 3.7 mmol/L (3.5-5.1); Sodium 142 mmol/L (137-145); Total Bilirubin 0.1 mg/dL (0.2-1.3); Total Protein 4.8 g/dL (6.3-8.2)
[2023-09-30 10:40] LABS: NT-Pro-B-Type Natriuretic Pept 1550 pg/mL
--- NOTE | 2023-09-30 11:12 | CT ---
EXAMINATION: CT ABDOMEN AND PELVIS WITH IV CONTRAST DATE OF EXAMINATION: 09/30/2023. COMPARISON: None available. INDICATION: Postop abdominal pain and distention. PROCEDURE: Axial CT of the abdomen and pelvis was performed with contrast and sagittal and coronal reformatted images were performed. CT dose lowering techniques were used, to include: automated expos ure control, adjustment for patient size, and/or use of iterative reconstruction. FINDINGS: LOWER CHEST : The visualized lung bases are clear. There are no pleural or pericardial effusions. ABDOMEN: Liver and Biliary system: Normal. Adrenal glands: Normal. Kidneys and ureters: Normal. Spleen: Normal. Pancreas: Extensive calcification is seen throughout the pancreas with ductal calcifications and sig nificant pancreatic ductal dilation likely relates to chronic pancreatitis. The pancreatic duct measu res up to 1.6 cm.. Gallbladder: Absent. Lymph nodes, Peritoneum and mesentery: There is no mesenteric or retroperitoneal lymphadenopathy. No vertebral DEBORA drains are unchanged. Gastrointestinal tract: Mucosal enhancement is seen throughout the small bowel with abdomen and pelv is with fluid-filled lumen and some bowel wall thickening that likely represents a nonspecific enteri tis and possibly ileus. The appendix is normal. Aorta/IVC: No aortic aneurysm. IVC normal. Abdominal wall: Diffuse body wall edema. PELVIS: Fluid: There is no free fluid in the pelvis. Lymph Nodes: There is no pelvic or inguinal lymphadenopathy.. Urinary bladder: Normal. BONES: There are no osseous destructive lesions.. ADDITIONAL SIGNIFICANT FINDINGS: None. IMPRESSION: 1. Mucosal enhancement is seen throughout the small bowel with abdomen and pelvis with fluid-filled l umen and some bowel wall thickening that likely represents a nonspecific enteritis and possibly ileus . 2. Findings compatible with chronic pancreatitis are not significantly changed.
[2023-09-30 11:51] LABS: Appearance,Urine Clear (Clear); Bilirubin,Urine Negative (Negative); Blood,Urine Negative (Negative); Color,Urine Light Yellow; Glucose,Urine (UA) Negative (Negative); Ketones,Urine Negative (Negative); Leukocyte Esterase,Urine Trace (Negative); Mucus,Urine Rare /hpf; Nitrite,Urine Negative (Negative); Protein,Urine 1+ (Negative); RBC,Urine 5 /hpf (0-5); Specific Gravity,Urine 1.024 (1.001-1.035); Squamous Epithelial Cell,Urine <1 /hpf (0-4); Urobilinogen,Urine <2.0 mg/dL (<2.0); WBC,Urine 8 /hpf (0-5)
[2023-09-30] MEDS: HYDROcodone/APAP 5-325MG 1 EACH TAB PO STA (12:41)
[2023-09-30 12:43] VITALS: BP 113/78; PULSE 99; RESP 20
== END 2023-09-30 13:20 | disposition home or self-care (01) ==
LOC: EC 08:56
DX: R10.9 Unspecified abdominal pain (principal); R00.0 Tachycardia, unspecified; F12.90 Cannabis use, unspecified, uncomplicated; Z87.891 Personal history of nicotine dependence; Z98.890 Other specified postprocedural states
CPT/HCPCS: 99284; 36415; 93005; 83880; 80053; 83605; 85025; 85610; 85730; 81001; 71046; 74177; Q9967

== ENCOUNTER 2023-10-08 13:12 | Inpatient (IN) | payer OTHER ==
[2023-10-08] MEDS: MORPHINE SULFATE 4 MG/ML SYRINGE IVP STA (14:00)
[2023-10-08 14:25] LABS: Anisocytosis Slight; Basophils % (A) 0 %; Eosinophils # (A) 0.2 k/uL (0-0.7); Eosinophils % (A) 1 %; HCT 33.2 % (39.0-53.0); HGB 10.6 gm/dL (13.0-17.5); Hypochromasia Moderate; Lymphocytes # (A) 0.8 k/uL (1.0-4.8); Lymphocytes % (A) 5 %; MCH 25.2 pg (25.0-35.0); MCHC 31.9 g/dL (31.0-37.0); Mean Platelet Volume 6.8; Microcytosis Slight; Monocytes # (A) 0.8 k/uL (0-1.0); Monocytes % (A) 5 %; Neutrophils # (A) 16.5 k/uL (1.3-7.7); Neutrophils % (A) 89 %; Platelet Count 634 k/uL (150-450); Poikilocytosis Slight; RBC 4.21 m/uL (4.30-5.90); RDW 16.7 % (11.5-15.5); WBC 18.5 k/uL (3.8-10.6)
[2023-10-08] MEDS: SODIUM CHLORIDE 0.9% 1,000 ML IV STA ×2 (14:33→18:35)
[2023-10-08 14:46] LABS: ALT 14 U/L (4-49); AST 21 U/L (17-59); African American GFR (CKD) >90 (>60 ml/min/1.73 sqM); Albumin 2.9 g/dL (3.5-5.0); Alkaline Phosphatase 115 U/L (38-126); Anion Gap 9 mmol/L; Blood Urea Nitrogen 19 mg/dL (9-20); Calcium 8.5 mg/dL (8.4-10.2); Carbon Dioxide 20 mmol/L (22-30); Chloride 105 mmol/L (98-107); Glucose 167 mg/dL (74-99); Lipase 473 U/L (23-300); Non-African American GFR(CKD) >90 (>60 ml/min/1.73 sqM); Potassium 3.8 mmol/L (3.5-5.1); Sodium 134 mmol/L (137-145); Total Bilirubin 0.4 mg/dL (0.2-1.3)
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
[2023-10-08] MEDS: METOCLOPRAMIDE 5 MG/ML 2 ML VIAL IVP STA (15:43)
[2023-10-08] MEDS: diphenhydrAMINE 50 MG/ML 1 ML VIAL IVP STA (15:44)
--- NOTE | 2023-10-08 16:43 | XR ---
EXAMINATION TYPE: XR KUB DATE OF EXAM: 10/08/2023 4:23 PM CLINICAL INDICATION:Male, 43 years old with history of abdominal pain; [facility] COMPARISON: CT 09/30/2023, 09/05/2023.. TECHNIQUE: One radiographic view of the abdomen was obtained. FINDINGS: Small bowel loops dilated up to 4.2 cm. Additional bowel loops in the low abdomen that repr esent the cecum dilated up to 7.0 cm. The osseous structures are intact. No abnormal calcifications are present. Fecal material and gas are demonstrated throughout the colon and rectum. IMPRESSION: 1. Findings suspicious for for postop ileus with gaseous dilation of large and small bowel. 2. Drainage catheters transverse the abdomen bilaterally.
[2023-10-08] MEDS: HYDROmorphone 1 MG/ML 1 ML SYRINGE IVP STA (18:35)
[2023-10-08] MEDS: ONDANSETRON 4 MG/2 ML VIAL IVP STA (18:35)
--- NOTE | 2023-10-08 18:45 | CT ---
EXAMINATION TYPE: CT abdomen pelvis wo con CT DLP: 335 mGycm, Automated exposure control for dose reduction was used. DATE OF EXAM: 10/08/2023 6:22 PM COMPARISON: 09/30/2023 CLINICAL INDICATION:Male, 43 years old with history of pain; Bowel resection x 1 month ago, n/v and a bdominal pain worsening today TECHNIQUE: Axial CT abdomen pelvis wo con;Sagittal and coronal reformats were created on a separate workstation. Contrast used: mL of , (none if empty) Oral contrast used: without Oral Contrast (none if empty) FINDINGS: LOWER CHEST: Unremarkable ABDOMEN LIVER: Unremarkable GALLBLADDER AND BILE DUCTS: Unremarkable. PANCREAS: Chronic pancreatitis changes of multiple calcifications in the pancreatic pain,. SPLEEN: Unremarkable. ADRENAL GLANDS: Unremarkable. KIDNEYS AND URETERS: No evidence of hydronephrosis or renal calculus. The ureters are unremarkable. PELVIS BLADDER: Unremarkable REPRODUCTIVE: Unremarkable. ABDOMEN & PELVIS STOMACH AND BOWEL: Diffuse dilation of small bowel with large stool burden throughout the right colon . Small bowel loops containing small bowel feces throughout the abdomen dilated up to 5.8 cm. Evaluat ion of transition point limited with IV and oral contrast. However there is large amount of stool in the colon suggesting partial obstruction versus ileus rather than complete obstruction. PERITONEUM/RETROPERITONEUM: No evidence of pneumoperitoneum. Drainage catheters transverse the abdome n. There may be free fluid in the right pelvis in the rectum. VASCULATURE: No evidence of aortic aneurysm. MUSCULOSKELETAL: No acute osseous abnormalities LYMPH NODES: No gross evidence for lymphadenopathy. SOFT TISSUE/ABDOMINAL WALL: Unremarkable IMPRESSION: 1. Diffuse small bowel dilation with bowel containing gas, feces and fluid. Findings suspicious for ileus versus partial bowel obstruction with complete obstruction calculus likely given large amount s tool in the right colon and transverse colon. Evaluation transition point is limited without IV and o ral contrast.. Surgical consultation recommended. 2. Drainage catheter is in place. There may be some free fluid around the rectum in the pelvis. 3. Chronic pancreatitis changes.
[2023-10-08] MEDS ORDERED: NALOXONE 0.4 MG/ML 1 ML VIAL IV PRN (19:06)
[2023-10-08] MEDS: SODIUM CHLORIDE 0.9% 1,000 ML IV SCH (20:03)
[2023-10-08] MEDS: HYDROmorphone 1 MG/ML 1 ML SYRINGE IVP PRN (21:04)
[2023-10-08] MEDS: AMPICILLIN-SULBACTAM 3 GM in SODIUM CHLORIDE 0.9% 100 ML IVPB STA (21:18)
[2023-10-09] MEDS: ONDANSETRON 4 MG/2 ML VIAL IVP PRN (00:10)
[2023-10-09] MEDS: AMPICILLIN-SULBACTAM 3 GM in SODIUM CHLORIDE 0.9% 100 ML IVPB SCH (00:11)
[2023-10-09 09:06] LABS: Basophils # (A) 0.05 X 10*3/uL (0.00-0.10); Basophils % (A) 0.4 %; Eosinophils # (A) 0.02 X 10*3/uL (0.04-0.35); Eosinophils % (A) 0.2 %; HCT 29.2 % (39.6-50.0); HGB 9.3 g/dL (13.0-17.0); Lymphocytes % (A) 5.9 %; MCH 24.7 pg (27.0-32.0); MCHC 31.8 g/dL (32.0-37.0); MCV 77.7 FL (80.0-97.0); Monocytes # (A) 0.99 X 10*3/uL (0.20-1.00); Monocytes % (A) 8.3 %; NRBC Per 100 WBC 0 X 10*3/uL (0.00-0.01); Neutrophils # (A) 10.05 X 10*3/uL (1.80-7.70); Neutrophils % (A) 84.7 %; Platelet Count 561 X 10*3/uL (140-440); RBC 3.76 X 10*6/uL (4.40-5.60); RDW 17.1 % (11.5-14.5); WBC 11.87 X 10*3/uL (4.50-10.00)
[2023-10-09 09:11] LABS: ALT 9 U/L (10-49); AST 12 U/L (14-35); Albumin 2.7 g/dL (3.8-4.9); Albumin/Globulin Ratio 1.17 Ratio (1.60-3.17); Alkaline Phosphatase 102 U/L (41-126); BUN/Creat Ratio 25.17 Ratio (12.00-20.00); Blood Urea Nitrogen 15.1 mg/dL (9.0-27.0); Calcium 8.4 mg/dL (8.7-10.3); Carbon Dioxide 23.1 mmol/L (21.6-31.8); Chloride 103 mmol/L (96-109); Globulin 2.3 g/dL (1.6-3.3); Glucose 129 mg/dL (70-110); Magnesium 1.6 mg/dL (1.5-2.4); Phosphorus 3.4 mg/dL (2.4-5.1); Potassium 4.3 mmol/L (3.5-5.5); Sodium 136 mmol/L (135-145); Total Bilirubin 0.3 mg/dL (0.3-1.2)
[2023-10-09] MEDS: LACTULOSE 20 GM/30 ML CUP PO ONE (11:19)
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
[2023-10-09] MEDS: MAGNESIUM SULFATE-D5W PMX 1 GM in DEXTROSE/WATER 1 100ML.BAG IVPB ONE (13:39)
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
[2023-10-09] MEDS: PIPERACILLIN-TAZOBACTAM 3.375 GM in SODIUM CHLORIDE 0.9% 100 ML IVPB SCH (15:38)
[2023-10-09] MEDS: HYDROmorphone 1 MG/ML 1 ML SYRINGE IVP PRN (16:57)
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
[2023-10-10 08:38] LABS: Basophils # (A) 0.04 X 10*3/uL (0.00-0.10); Basophils % (A) 0.5 %; Eosinophils # (A) 0.02 X 10*3/uL (0.04-0.35); Eosinophils % (A) 0.2 %; HCT 26.6 % (39.6-50.0); HGB 8.3 g/dL (13.0-17.0); Lymphocytes # (A) 0.54 X 10*3/uL (0.90-5.00); Lymphocytes % (A) 6.5 %; MCH 23.9 pg (27.0-32.0); MCHC 31.2 g/dL (32.0-37.0); MCV 76.7 FL (80.0-97.0); Mean Platelet Volume 8.8 FL (9.5-12.2); Monocytes # (A) 0.89 X 10*3/uL (0.20-1.00); Monocytes % (A) 10.7 %; NRBC Per 100 WBC 0 X 10*3/uL (0.00-0.01); Neutrophils # (A) 6.79 X 10*3/uL (1.80-7.70); Neutrophils % (A) 81.7 %; Platelet Count 482 X 10*3/uL (140-440); RBC 3.47 X 10*6/uL (4.40-5.60); RDW 17.2 % (11.5-14.5); WBC 8.31 X 10*3/uL (4.50-10.00)
[2023-10-10 09:05] LABS: BUN/Creat Ratio 20.43 Ratio (12.00-20.00); Blood Urea Nitrogen 14.3 mg/dL (9.0-27.0); Calcium 8.3 mg/dL (8.7-10.3); Carbon Dioxide 23.5 mmol/L (21.6-31.8); Chloride 101 mmol/L (96-109); Glucose 117 mg/dL (70-110); Magnesium 1.7 mg/dL (1.5-2.4); Sodium 138 mmol/L (135-145)
[2023-10-10] MEDS: ENOXAPARIN 40 MG/0.4 ML SYRINGE SQ SCH (09:15)
--- NOTE | 2023-10-10 10:26 | P.PN ---
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 He was recently hospitalized from 09/04-09/18 for small bowel perforation status post vane gent small bowel resection with [id number] duodenojejunostomy 09/06/2023 complicated by post operative ileus. He completed multiple days of IV antibiotics and discharged home on PO Augmentin and DEBORA drain. He reports increased abdominal pain, abdominal distention and multiple episodes of bilious N/V which prompted him to come back to the ED. in the ED, he underwent extensive evaluation. BP 145/95, HR 101, RR 18, T 90 7.8F, 100% on RA. CBC showed WBC count 18.5, hemoglobin 10.6, hematocrit 33.2, MCV 79, platelet 634. CMP showed sodium 134, bicarb 20, creatinine 0.48, glucose 167, albumin 2.9. Lipase 473. Lactic acid 1.4. CT AP shows diffuse SB dilation, drainage catheter in place, chronic pancreatitis changes. He reports bowel movements. [facility] consulted for medical management of this patient. 10/09 Patient was seen and examined. Reports continued abdominal pain. Received 6 mg of Dilaudid over the past 24H. Surgery note reviewed, received soap suds enema and lactulose yesterday. ID recommends continuing Zosyn IV. He reports no bowel movement yet. 2 episodes on N/V last night. CBC Hg 8.3 Hct 26.6 MCV 76.6 Plt 482. BMP AG 13.5, BUN/Cr 20.43, glu 117, Ca 8.3. Lactic acid 1.7. DEBORA drain Cx and BCx negative so far. General: non toxic, no distress, appears at stated age Derm: warm, dry Head: atraumatic, normocephalic, symmetric Eyes: EOMI, no lid lag, anicteric sclera Mouth: no lip lesion, mucus membranes moist Cardiovascular: S1S2 tachy, no murmur Lungs: CTA bilateral, no rhonchi, no rales , no accessory muscle use Abdominal: distended, midline surgical scar, DEBORA drain intact, TTP in all 4 quadrants, no guarding, no appreciable organomegaly Ext: no gross muscle atrophy, no edema, no contractures Neuro: no focal neuro deficits Psych: Alert, oriented, appropriate affect Based on my assessment of this patient, this patient meets a high complexity level of care. Patient has an acute diagnosis of ileus versus SBO which poses a threat to life or bodily function. Abdominal pain, ileus versus small bowel obstruction seen on CTA: Surgery note reviewed, likely ileus and constipation. Lactulose and Soapsuds enema ordered. Possible barium enema on Friday to evaluate for volvulus. Pain control with Dilaudid 1mg IV Q2H, monitor for respiratory depression. Zofran 4 mg IV Q8H PRN for N/V. NS at 130 cc/hr. Surgery on board. Sepsis related to above: Switch Unasyn to Zosyn 3.375g IV TID (D2). ID consulted. Follow BCx. Follow DEBORA drain Cx. Microcytic anemia with thrombocytosis: Stable since previous admission. Transfuse if Hg < 7. Prerenal azotemia: Dehydration. IV hydration as above. History of small bowel perforation status post emergent small bowel resection with [id number]-ys-[id number] duodenojejunostomy 09/06/2023 CODE STATUS: FULL CODE DVT Prophylaxis: Lovenox SQ GI Prophylaxis: Designated medical POA if patient is not able to make medical decisions for them selves: I have reviewed the following sap solution manager consultant notes: Surgery, ID note. I have reviewed the results of the following tests: CBC, BMP, BCx, DEBORA drain Cx. I have ordered the following tests: I have discussed the care of this patient with the following independent historian: I have independently interpreted the following test below: I have discussed the management of this patient with the following physician: Objective - Vital Signs Vital signs: Vital Signs Temp 99.3 F 10/10/23 07:19 Pulse 95 10/10/23 07:19 Resp 16 10/10/23 07:19 BP 162/92 10/10/23 07:19 Pulse Ox 96 10/10/23 07:19 FiO2 Intake & Output 10/09/23 10/10/23 10/10/23 18:59 06:59 18:59 Output Total 300 Balance -300 Output: Urine 300 Other: Voiding Method Urinal Urinal Urinal # Voids 2 - Labs CBC & Chem 7: 10/10/23 05:05 03/15/24 05:05 Labs: Abnormal Lab Results - Last 24 Hours (Table) 10/10/23 10/10/23 Range/Units 05:05 05:05 RBC 3.47 L (4.40-5.60) X 10*6/uL Hgb 8.3 L (13.0-17.0) g/dL Hct 26.6 L (39.6-50.0) % MCV 76.7 L (80.0-97.0) FL MCH 23.9 L (27.0-32.0) pg MCHC 31.2 L (32.0-37.0) g/dL RDW 17.2 H (11.5-14.5) % Plt Count 482 H (140-440) X 10*3/uL MPV 8.8 L (9.5-12.2) FL Lymphocytes # 0.54 L (0.90-5.00) X 10*3/uL Eosinophils # 0.02 L (0.04-0.35) X 10*3/uL Anion Gap 13.50 H (4.00-12.00) mmol/L BUN/Creatinine Ratio 20.43 H (12.00-20.00) Ratio Glucose 117 H (70-110) mg/dL Calcium 8.3 L (8.7-10.3) mg/dL Microbiology - Last 24 Hours (Table) 10/08/23 21:00 Blood Culture - Preliminary Blood 10/08/23 21:15 Blood Culture - Preliminary Blood 10/09/23 09:39 Gram Stain - Preliminary [facility] 10/09/23 09:36 Gram Stain - Preliminary [facility]
--- NOTE | 2023-10-10 12:18 | P.PN ---
Subjective Progress Note Date: 10/10/23 Principal diagnosis: Reason for follow-up is fever/ileus/obstruction Patient is a 43-year-old -[place] male past medical history significant for right-sided jaw cancer for the patient be treated with chemoradiation therapy, patient also have a history of alcohol abuse possible acute and chronic pancreatitis patient recently did have a prolonged hospital stay for bowel obstruction and this patient who did have a perforated small bowel and status post resection on 09/06/2023 did have prolonged ileus, now presenting back to the hospital abdominal pain and vomiting has been diagnosed with ileus/obstruction. On today's evaluation that is 10/10/2023,the patient did have a low-grade fever of 99.3 F, patient is breathing comfortably on room air, the patient denies chest pain shortness of breath and no significant cough, patient has been complaining of abdominal pain and did have 2 episodes of vomiting no significant bowel movement. Patient white count normalized to 8.31, creatinine 0.7 cultures currently pending Objective - Vital Signs Vital signs: Vital Signs Temp 99.3 F 10/10/23 07:19 Pulse 95 10/10/23 07:19 Resp 16 10/10/23 07:19 BP 162/92 10/10/23 07:19 Pulse Ox 96 10/10/23 07:19 FiO2 Intake & Output 10/09/23 10/10/23 10/10/23 18:59 06:59 18:59 Output Total 300 Balance -300 Output: Urine 300 Other: Voiding Method Urinal Urinal Urinal # Voids 2 - Exam GENERAL DESCRIPTION: Middle-age male lying in bed in no distress RESPIRATORY SYSTEM: Unlabored breathing , decreased breath sounds at bases HEART: S1 S2 regular rate and rhythm , ABDOMEN: Soft , mild distention and tenderness EXTREMITIES: No edema feet - Labs CBC & Chem 7: 10/10/23 05:05 10/10/23 05:05 Labs: Abnormal Lab Results - Last 24 Hours (Table) 10/10/23 10/10/23 Range/Units 05:05 05:05 RBC 3.47 L (4.40-5.60) X 10*6/uL Hgb 8.3 L (13.0-17.0) g/dL Hct 26.6 L (39.6-50.0) % MCV 76.7 L (80.0-97.0) FL MCH 23.9 L (27.0-32.0) pg MCHC 31.2 L (32.0-37.0) g/dL RDW 17.2 H (11.5-14.5) % Plt Count 482 H (140-440) X 10*3/uL MPV 8.8 L (9.5-12.2) FL Lymphocytes # 0.54 L (0.90-5.00) X 10*3/uL Eosinophils # 0.02 L (0.04-0.35) X 10*3/uL Anion Gap 13.50 H (4.00-12.00) mmol/L BUN/Creatinine Ratio 20.43 H (12.00-20.00) Ratio Glucose 117 H (70-110) mg/dL Calcium 8.3 L (8.7-10.3) mg/dL Microbiology - Last 24 Hours (Table) 10/08/23 21:00 Blood Culture - Preliminary Blood 10/08/23 21:15 Blood Culture - Preliminary Blood 10/09/23 09:39 [facility] 10/09/23 09:36 Gram Stain - Preliminary [facility] Assessment and Plan (1) Leukocytosis Current Visit: Yes Status: Acute Code(s): D72.829 - ELEVATED WHITE BLOOD CELL COUNT, UNSPECIFIED SNOMED Code(s): 108354157 (2) Ileus Current Visit: Yes Status: Acute Code(s): K56.7 - ILEUS, UNSPECIFIED SNOMED Code(s): 176925711 Plan: 1patient [facility] with sepsis in this patient who did have an elevated white count tachycardia source likely abdominal pain this patient did have predominantly abdominal symptoms with abdominal pain and vomiting CT has been suggestive of ileus/obstruction and will likely need to cover for the enteric gram-negative both aerobes and anaerobes 2-patient did have resolution of his leukocytosis and the patient will be continue Zosyn 3.375 g every 8 hours and monitor clinical course closely Dictation was produced using mechatronic [employer] dictation software. please excuse any grammatical, word or spelling errors. Time with Patient: Less than 30
--- NOTE | 2023-10-10 12:28 | XR ---
EXAMINATION TYPE: XR chest 1V portable DATE OF EXAM: 10/10/2023 11:55 AM CLINICAL INDICATION:Male, 43 years old with history of NGT placement; [facility] COMPARISON: Chest radiographs from 09/30/2023 TECHNIQUE: XR chest 1V portable Frontal view of the chest. FINDINGS: Lungs/Pleura: There is no evidence of pleural effusion, focal consolidation, or pneumothorax. Pulmonary vascularity: Unremarkable. Heart/mediastinum: Cardiomediastinal silhouette is unremarkable. Musculoskeletal: No acute osseous pathology. Other findings: None Lines/Tubes: Nasogastric tube with its distal tip and side-port projecting under the diaphragm. [id number] projecting over the right hemithorax with distal tip at the cavoatrial junction. IMPRESSION: 1. Gastric tube in appropriate position. 2. No acute cardiopulmonary disease/process.
--- NOTE | 2023-10-10 13:52 | P.PN ---
Subjective Progress Note Date: 10/10/23 CHIEF COMPLAINT: Abdominal pain HISTORY OF PRESENT ILLNESS: This is a 43-year-old male with history of pe rforated proximal small bowel status post small bowel resection on 09/06/2023. Patient currently being followed for severe constipation and ileus. Abdomen remains distended. Even after enemas no bowel movements or flatus. He did have 2 episodes of vomiting last night. Afebrile. WBC has normalized from 11.87- 8.31 Hgb is 8.3 platelets 482 sodium 138 potassium 4.0 creatinine 0.7 albumin 2.7 magnesium 1.7 culture results from DEBORA drain fluid pending PHYSICAL EXAM: VITAL SIGNS: Reviewed GENERAL: Well-developed in no acute distress. HEENT: No sclera icterus. Extraocular movements grossly intact. Moist buccal mucosa. Head is atraumatic, normocephalic. Hears conversational speech. No nasal drainage. NECK: Supple without lymphadenopathy. CHEST: Non-labored respirations and equal bilateral excursions. CARDIOVASCULAR: Palpable 2+ radial pulses. ABDOMEN: Distended. Diffuse tenderness. Midline incision healed clean dry and intact. DEBORA drains removed. Dressing sites clean dry and intact. MUSCULOSKELETAL: No clubbing or cyanosis. NEUROLOGIC: No focal or lateralizing signs. Cranial nerves II through XII grossly intact. PSYCH: Appropriate affect. Alert and oriented to person, place and time. SKIN: Well perfused. Good skin turgor. ASSESSMENT: 1. Abdominal pain with abdominal distention likely related to ileus and constipation 2. Recent perforated proximal small bowel status post small bowel resection on September 06, 2023 3. Leukocytosis 4. Chronic pancreatitis 5. 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 Prior history of PE 7. Dehydration 8. Hypomagnesemia 9. Underweight PLAN: -NG tube added for decompression -Keep patient n.p.o. -Barium enema scheduled for Friday to evaluate for volvulus -Continue IV fluids -Antibiotics per infectious disease -Replace magnesium Physician Readiness Paraprofessional note has been reviewed by physician. Signing provider agrees with the documented findings, assessment, and plan of care. CHIEF COMPLAINT: Abdominal pain HISTORY OF PRESENT ILLNESS: The patient is a 43-year-old male with pre-existing history of perforated small bowel at his last hospitalization over a month ago. Patient presented back to the hospital due to generalized abdominal pain including recurrent abdominal distention and ileus versus bowel obstruction. He had DEBORA drains from prior hospitalization which were removed. Nasogastric tube was placed with almost 1 L removed. He still reports moderate abdominal distention. Patient reports minimal bowel habits in the last several weeks. He reports minimal passage of flatus. Despite enemas, no bowel habits. ROS: No reports of nausea and vomiting. No bowel movements. No fevers or chills. No new chest pain. No productive sputum PHYSICAL EXAM: VITAL SIGNS: Reviewed CONSTITUTIONAL: Well developed and in no acute distress. EYES: Conjuctivae without sclera icterus. Extraocular movements grossly intact. HEAD, EARS, NOSE, THROAT: Moist buccal mucosa. Head is atraumatic, normocephalic. Hears conversational speech. NG tube bilious. RESPIRATORY: Non-labored respirations and equal bilateral excursions. CARDIOVASCULAR: Palpable 2+ radial pulses. ABDOMEN: Distended and tight. No peritonitis. Esopus intact. MUSCULOSKELETAL: No gross deformity of the lower extremities noted. No clubbing. No cyanosis. SKIN: Good skin turgor. Well perfused. NEUROLOGIC: Cranial nerves II through XII grossly intact. No focal or lateralizing signs. PSYCH: Appropriate affect. Alert and oriented to person, place and time. CLINICAL LABS: Reviewed. WBC normal. ASSESSMENT: 1. Ileus versus bowel obstruction 2. History of perforated small bowel 3. Severe protein malnutrition 4. Chronic constipation 5. Dehydration 6. Prior history of tracheostomy and mandibular cancer PLAN: 1. Extended discussion with patient reviewed including symptoms. Despite NG tube, he still reports abdominal pain. Due to his severe malnutrition, options of clear liquid diet reviewed which he agreed. 2. Patient reports prior response to small bowel follow-through with Gas trografin which helped the bowel habits. Will defer enema in place for upper GI with small bowel follow-through. 3. Due to multiple recurrent bowel obstructions in 6 months and high suspicion of intermittent sigmoid volvulus, may benefit from from inpatient colonoscopy including barium enema 4. Overall care plan reviewed. Patient agreed. 5. Peritoneal cultures now consistent with MRSA Objective - Vital Signs Vital signs: Vital Signs Temp 99.3 F 10/10/23 07:19 Pulse 95 10/10/23 07:19 Resp 16 10/10/23 07:19 BP 162/92 10/10/23 07:19 Pulse Ox 96 10/10/23 07:19 FiO2 Intake & Output 10/09/23 10/10/23 10/10/23 18:59 06:59 18:59 Output Total 300 Balance -300 Output: Urine 300 Other: Voiding Method Urinal Urinal Urinal # Voids 2 - Labs CBC & Chem 7: 10/10/23 05:05 10/10/23 05:05 Labs: Abnormal Lab Results - Last 24 Hours (Table) 10/10/23 10/10/23 Range/Units 05:05 05:05 RBC 3.47 L (4.40-5.60) X 10*6/uL Hgb 8.3 L (13.0-17.0) g/dL Hct 26.6 L (39.6-50.0) % MCV 76.7 L (80.0-97.0) FL MCH 23.9 L (27.0-32.0) pg MCHC 31.2 L (32.0-37.0) g/dL RDW 17.2 H (11.5-14.5) % Plt Count 482 H (140-440) X 10*3/uL MPV 8.8 L (9.5-12.2) FL Lymphocytes # 0.54 L (0.90-5.00) X 10*3/uL Eosinophils # 0.02 L (0.04-0.35) X 10*3/uL Anion Gap 13.50 H (4.00-12.00) mmol/L BUN/Creatinine Ratio 20.43 H (12.00-20.00) Ratio Glucose 117 H (70-110) mg/dL Calcium 8.3 L (8.7-10.3) mg/dL Microbiology - Last 24 Hours (Table) 10/08/23 21:00 Blood Culture - Preliminary Blood 10/08/23 21:15 Blood Culture - Preliminary Blood 10/09/23 09:39 [facility] 10/09/23 09:36 Gram Stain - Preliminary [facility]
[2023-10-10] MEDS: MAGNESIUM SULFATE-D5W PMX 1 GM in DEXTROSE/WATER 1 100ML.BAG IVPB ONE (14:25)
[2023-10-10] MEDS: SODIUM CHLORIDE 0.9% 1,000 ML IV SCH (23:39)
[2023-10-11] MEDS ORDERED: VANCOMYCIN IV PER PHARMACY 1 EACH MISC MISCELLANE PRN (08:53)
[2023-10-11] MEDS: VANCOMYCIN 1,000 MG in SODIUM CHLORIDE 0.9% 250 ML IVPB ONE (09:14)
--- NOTE | 2023-10-11 10:53 | P.PN ---
Subjective Progress Note Date: 10/11/23 42-year-old male with a past medical history of chronic pancreatitis, alcoholism, history of pulmonary emboli, right-sided jaw cancer status post chemo/radiation treatment, GERD with erosive esophagitis, and gastritis. He was recently hospitalized from 09/04-09/18 for small bowel perforation status post vane gent small bowel resection with [id number] duodenojejunostomy 09/06/2023 complicated by post operative ileus. He completed multiple days of IV antibiotics and discharged home on PO Augmentin and DEBORA drain. He reports increased abdominal pain, abdominal distention and multiple episodes of bilious N/V which prompted him to come back to the ED. in the ED, he underwent extensive evaluation. BP 145/95, HR 101, RR 18, T 90 7.8F, 100% on RA. CBC showed WBC count 18.5, hemoglobin 10.6, hematocrit 33.2, MCV 79, platelet 634. CMP showed sodium 134, bicarb 20, creatinine 0.48, glucose 167, albumin 2.9. Lipase 473. Lactic acid 1.4. CT AP shows diffuse SB dilation, drainage catheter in place, chronic pancreatitis changes. He reports bowel movements. [facility] consulted for medical management of this patient. 10/09 Patient was seen and examined. Reports continued abdominal pain. Received 6 mg of Dilaudid over the past 24H. Surgery note reviewed, received soap suds enema and lactulose yesterday. ID recommends continuing Zosyn IV. He reports no bowel movement yet. 2 episodes on N/V last night. CBC Hg 8.3 Hct 26.6 MCV 76.6 Plt 482. BMP AG 13.5, BUN/Cr 20.43, glu 117, Ca 8.3. Lactic acid 1.7. DEBORA drain Cx and BCx negative so far. 10/10 Patient was seen and examined. NG tube inserted yesterday to suction. Surgery note reviewed, defer enema for small bowel follow through on Friday, possible inpatient C-scope for suspicion for sigmoid volvulus. DEBORA drain culture growing presumptive MRSA. I have started the patient on Vancomycin dosed per pharmacy. General: non toxic, no distress, appears at stated age Derm: warm, dry Head: atraumatic, normocephalic, symmetric Eyes: EOMI, no lid lag, anicteric sclera Mouth: no lip lesion, mucus membranes moist Cardiovascular: S1S2 reg, no murmur Lungs: CTA bilateral, no rhonchi, no rales , no accessory muscle use Abdominal: distended, midline surgical scar, DEBORA drain intact, TTP in all 4 quadrants, no guarding, no appreciable organomegaly Ext: no gross muscle atrophy, no edema, no contractures Neuro: no focal neuro deficits Psych: Alert, oriented, appropriate affect Based on my assessment of this patient, this patient meets a high complexity level of care. Patient has an acute diagnosis of ileus versus SBO which poses a threat to life or bodily function. Abdominal pain, ileus versus small bowel obstruction seen on CTA: Surgery note reviewed, likely ileus and constipation. Small bowel follow through on Friday, possible inpatient C-scope for suspicion for sigmoid volvulus. Pain control with Dilaudid 1mg IV Q2H, monitor for respiratory depression. Zofran 4 mg IV Q8H PRN for N/V. NS at 130 cc/hr. Surgery on board. Sepsis related to above: Switch Unasyn to Zosyn 3.375g IV TID (D3). DEBORA drain Cx + presumptive MRSA, started on Vancomycin 10/10. ID on board. Follow BCx. Follow DEBORA drain Cx. Microcytic anemia with thrombocytosis: Stable since previous admission. Transfuse if Hg < 7. Prerenal azotemia: Dehydration. IV hydration as above. History of small bowel perforation status post emergent small bowel resection with [id number]-cano duodenojejunostomy 09/06/2023 CODE STATUS: FULL CODE DVT Prophylaxis: Lovenox SQ GI Prophylaxis: Designated medical POA if patient is not able to make medical decisions for themselves: I have reviewed the following sec reporting consultant notes: Surgery, ID note. I have reviewed the results of the following tests: BCx, DEBORA drain Cx. I have ordered the following tests: CBC, BMP, Vanc trough. Monitor renal function while on Vanomcyin, maintain Trough at 15. I have discussed the care of this patient with the following independent historian: I have independently interpreted the following test below: I have discussed the management of this patient with the following physician: Objective - Vital Signs Vital signs: Vital Signs Temp 98 F 10/11/23 08:00 Pulse 77 10/11/23 08:00 Resp 19 10/11/23 08:00 BP 166/87 10/11/23 08:00 Pulse Ox 98 10/11/23 08:00 FiO2 Intake & Output 10/10/23 10/11/23 10/11/23 18:59 06:59 18:59 Intake Total 200 Output Total 900 900 Balance -700 -900 Intake: Intake, IV Titration 200 Amount Magnesium Sulfate-D5w Pmx 100 1 gm In Dextrose/Water 1 100ml.bag @ 100 mls/hr IVPB ONCE ONE Rx#: [id number] Piperacillin-Tazobactam 3 100 .375 gm In Sodium Chloride 0.9% 100 ml @ 25 mls/hr IVPB Q8HR [facility] Rx# :[id number] Output: Gastric Drainage 900 400 Urine 500 Other: Voiding Method Urinal Urinal - Labs CBC & Chem 7: 10/10/23 05:05 10/10/23 05:05 Labs: Microbiology - Last 24 Hours (Table) 10/08/23 21:00 Blood Culture - Preliminary Blood 10/08/23 21:15 Blood Culture - Preliminary Blood 10/09/23 09:39 Gram Stain - Preliminary [facility] Fluid Culture - Preliminary Presumptive MRSA 10/09/23 09:36 Gram Stain - Preliminary [facility] Fluid Culture - Preliminary Presumptive MRSA
--- NOTE | 2023-10-11 14:08 | P.PN ---
Subjective Progress Note Date: 10/11/23 Principal diagnosis: Ileus Doing relatively well. Though overall poor medical condition. Objective - Vital Signs Vital signs: Vital Signs Temp 98.1 F 10/11/23 13:18 Pulse 65 10/11/23 13:18 Resp 16 10/11/23 13:18 BP 169/83 10/11/23 13:18 Pulse Ox 97 10/11/23 13:18 FiO2 Intake & Output 10/10/23 10/11/23 10/11/23 18:59 06:59 18:59 Intake Total 200 Output Total 900 900 Balance -700 -900 Intake: Intake, IV Titration 200 Amount Magnesium Sulfate-D5w Pmx 100 1 gm In Dextrose/Water 1 100ml.bag @ 100 mls/hr IVPB ONCE ONE Rx#: [id number] Piperacillin-Tazobactam 3 100 .375 gm In Sodium Chloride 0.9% 100 ml @ 25 mls/hr IVPB Q8HR [facility] Rx# :[id number] Output: Gastric Drainage 900 400 Urine 500 Other: Voiding Method Urinal Urinal - Constitutional General appearance: Present: disheveled, thin - EENT Eyes: Present: PERRLA ENT: Present: hearing grossly normal, normal oropharynx - Respiratory Respiratory: bilateral: CTA - Cardiovascular Rhythm: regular - Gastrointestinal General gastrointestinal: Present: normal bowel sounds - Neurologic Neurologic: Present: CNII-XII intact - Psychiatric Psychiatric: Present: A&O x's 3 - Labs CBC & Chem 7: 10/10/23 05:05 10/10/23 05:05 Labs: Microbiology - Last 24 Hours (Table) 10/08/23 21:00 Blood Culture - Preliminary Blood 10/08/23 21:15 Blood Culture - Preliminary Blood 10/09/23 09:39 Gram Stain - Preliminary [facility] Fluid Culture - Preliminary Presumptive MRSA 10/09/23 09:36 Gram Stain - Preliminary [place] [facility] Fluid Culture - Preliminary Presumptive MRSA Assessment and Plan Assessment: Ileus. Unknown cause. Abdominal exam is relatively benign with no peritonitis. Plan consider detailed small bowel study if patient does not improve.
--- NOTE | 2023-10-11 16:06 | P.PN ---
Subjective Progress Note Date: 10/11/23 Principal diagnosis: Reason for follow-up is fever/ileus/obstruction Patient is a 43-year-old -[place] male past medical history significant for right-sided jaw cancer for the patient be treated with chemoradiation therapy, patient also have a history of alcohol abuse possible acute and chronic pancreatitis patient recently did have a prolonged hospital stay for bowel obstruction and this patient who did have a perforated small bowel and status post resection on 09/06/2023 did have prolonged ileus, now presenting back to the hospital abdominal pain and vomiting has been diagnosed with ileus/obstruction. On today's evaluation that is 10/11/2023,the patient remains to be afebrile, patient is on room air not requiring supplemental oxygen and denies any shortness of breath no chest pain or cough.Patient did have NG placed with significant amount of output still complaining of abdominal pain and no bowel movement. Patient white count normalized to 8.31, creatinine 0.7 cultures obtained from the DEBORA is growing MRSA blood cultures pending Objective - Vital Signs Vital signs: Vital Signs Temp 98.1 F 10/11/23 13:18 Pulse 65 10/11/23 13:18 Resp 16 10/11/23 13:18 BP 169/83 10/11/23 13:18 Pulse Ox 97 10/11/23 13:18 FiO2 Intake & Output 10/10/23 10/11/23 10/11/23 18:59 06:59 18:59 Intake Total 200 Output Total 900 900 Balance -700 -900 Intake: Intake, IV Titration 200 Amount Magnesium Sulfate-D5w Pmx 100 1 gm In Dextrose/Water 1 100ml.bag @ 100 mls/hr IVPB ONCE ONE Rx#: [id number] Piperacillin-Tazobactam 3 100 .375 gm In Sodium Chloride 0.9% 100 ml @ 25 mls/hr IVPB Q8HR [facility] Rx# :[id number] Output: Gastric Drainage 900 400 Urine 500 Other: Voiding Method Urinal Urinal - Exam GENERAL DESCRIPTION: Middle-age male lying in bed in no distress RESPIRATORY SYSTEM: Unlabored breathing , decreased breath sounds at bases HEART: S1 S2 regular rate and rhythm , ABDOMEN: Soft , mild distention and tenderness EXTREMITIES: No edema feet - Labs CBC & Chem 7: 10/10/23 05:05 10/10/23 05:05 Labs: Microbiology - Last 24 Hours (Table) 10/08/23 21:00 Blood Culture - Preliminary Blood 10/08/23 21:15 Blood Culture - Preliminary Blood 10/09/23 09:39 Gram Stain - Preliminary [facility] Fluid Culture - Preliminary Presumptive MRSA 10/09/23 09:36 Gram Stain - Preliminary [place] [facility] Fluid Culture - Preliminary Presumptive MRSA Assessment and Plan (1) Leukocytosis Current Visit: Yes Status: Acute Code(s): D72.829 - ELEVATED WHITE BLOOD CELL COUNT, UNSPECIFIED SNOMED Code(s): 334275737 (2) Ileus Current Visit: Yes Status: Acute Code(s): K56.7 - ILEUS, UNSPECIFIED SNOMED Code(s): 013425592 (3) MRSA (methicillin resistant staph aureus) culture positive Current Visit: Yes Status: Acute Code(s): Z22.322 - CARRIER OR SUSPECTED CARRIER OF METHICILLIN RESIS STAPH SNOMED Code(s): 625528834 Plan: 1patient presented hospital with sepsis in this patient who did have an elevated white count tachycardia source likely abdominal pain this patient did have predominantly abdominal symptoms with abdominal pain and vomiting CT has been suggestive of ileus/obstruction and will likely need to cover for the enteric gram-negative both aerobes and anaerobes 2-patient did have resolution of his leukocytosis, cultures from the DEBORA are growing MRSA with a questionable significance vancomycin has been added we will switch Zosyn to Unasyn as no resistant gram-negative has been seen and to decrease risk of nephrotoxicity Dictation was produced using [employer] dictation software. please excuse any grammatical, word or spelling errors. Time with Patient: Less than 30
[2023-10-11] MEDS: VANCOMYCIN 1,000 MG in SODIUM CHLORIDE 0.9% 250 ML IVPB SCH (17:14)
[2023-10-11] MEDS: AMPICILLIN-SULBACTAM 3 GM in SODIUM CHLORIDE 0.9% 100 ML IVPB SCH (17:15)
[2023-10-12 07:04] LABS: HCT 30.4 % (39.0-53.0); HGB 9.2 gm/dL (13.0-17.5); Hypochromasia Marked; MCH 24.5 pg (25.0-35.0); MCHC 30.3 g/dL (31.0-37.0); MCV 80.8 fL (80.0-100.0); Mean Platelet Volume 7.1; Platelet Count 510 k/uL (150-450); Poikilocytosis Slight; RBC 3.76 m/uL (4.30-5.90); RDW 15.8 % (11.5-15.5); WBC 5.8 k/uL (3.8-10.6)
[2023-10-12 07:49] LABS: African American GFR (CKD) >90 (>60 ml/min/1.73 sqM); Anion Gap 9 mmol/L; Blood Urea Nitrogen 17 mg/dL (9-20); Calcium 8.2 mg/dL (8.4-10.2); Carbon Dioxide 25 mmol/L (22-30); Chloride 105 mmol/L (98-107); Glucose 121 mg/dL (74-99); Non-African American GFR(CKD) >90 (>60 ml/min/1.73 sqM); Potassium 3.2 mmol/L (3.5-5.1); Sodium 139 mmol/L (137-145)
[2023-10-12] MEDS: VANCOMYCIN TROUGH DUE 1 EACH MISC MISCELLANE ONE (08:36)
--- NOTE | 2023-10-12 10:32 | P.PN ---
Subjective Progress Note Date: 10/12/23 42-year-old male with a past medical history of chronic pancreatitis, alcoholism, history of pulmonary emboli, right-sided jaw cancer status post chemo/radiation treatment, GERD with erosive esophagitis, and gastritis. He was recently hospitalized from 09/04-09/18 for small bowel perforation status post vane gent small bowel resection with [id number]-fe-guzz duodenojejunostomy 09/06/2023 complicated by post operative ileus. He completed multiple days of IV antibiotics and discharged home on PO Augmentin and DEBORA drain. He reports increased abdominal pain, abdominal distention and multiple episodes of bilious N/V which prompted him to come back to the ED. in the ED, he underwent extensive evaluation. BP 145/95, HR 101, RR 18, T 90 7.8F, 100% on RA. CBC showed WBC count 18.5, hemoglobin 10.6, hematocrit 33.2, MCV 79, platelet 634. CMP showed sodium 134, bicarb 20, creatinine 0.48, glucose 167, albumin 2.9. Lipase 473. Lactic acid 1.4. CT AP shows diffuse SB dilation, drainage catheter in place, chronic pancreatitis changes. He reports bowel movements. [facility] consulted for medical management of this patient. 10/09 Patient was seen and examined. Reports continued abdominal pain. Received 6 mg of Dilaudid over the past 24H. Surgery note reviewed, received soap suds enema and lactulose yesterday. ID recommends continuing Zosyn IV. He reports no bowel movement yet. 2 episodes on N/V last night. CBC Hg 8.3 Hct 26.6 MCV 76.6 Plt 482. BMP AG 13.5, BUN/Cr 20.43, glu 117, Ca 8.3. Lactic acid 1.7. DEBORA drain Cx and BCx negative so far. 10/10 Patient was seen and examined. NG tube inserted yesterday to suction. Surgery note reviewed, defer enema for small bowel follow through on Friday, possible inpatient C-scope for suspicion for sigmoid volvulus. DEBORA drain culture growing presumptive MRSA. I have started the patient on Vancomycin dosed per pharmacy. 10/11 Patient was seen and examined. NG tube to suction. Maintained on Vanomcyin (D2). Zosyn switched to Unasyn by ID to decrease risk of nephrotoxicity. CBC Hg 9.2 Hct 30.4 Plt 510. BMP K 3.2, Cr 0.54, glu 121, Ca 8.2. Vanc trough 23.6. DEBORA drain growing presumptive MRSA and group D enterococcus. General: non toxic, no distress, appears at stated age Derm: warm, dry Head: atraumatic, normocephalic, symmetric Eyes: EOMI, no lid lag, anicteric sclera Mouth: no lip lesion, mucus membranes moist Cardiovascular: S1S2 reg, no murmur Lungs: CTA bilateral, no rhonchi, no rales , no accessory muscle use Abdominal: distended, midline surgical scar, DEBORA drain intact, TTP in all 4 quadrants, no guarding, no appreciable organomegaly Ext: no gross muscle atrophy, no edema, no contractures Neuro: no focal neuro deficits Psych: Alert, oriented, appropriate affect Based on my assessment of this patient, this patient meets a high complexity level of care. Patient has an acute diagnosis of ileus versus SBO which poses a threat to life or bodily function. Abdominal pain, ileus versus small bowel obstruction seen on CTA: Surgery note reviewed, likely ileus and constipation. Small bowel follow through on Friday, possible inpatient C-scope for suspicion for sigmoid volvulus. Pain control with Dilaudid 1mg IV Q2H, monitor for respiratory depression. Zofran 4 mg IV Q8H PRN for N/V. NS at 60 cc/hr. Surgery on board. Sepsis related to above: Switch Zosyn (D3) to Unasyn 3g IV TID (D2). DEBORA drain Cx + presumptive MRSA and group D enterococcus, started on Vancomycin 10/10. ID on board. Follow BCx. Follow DEBORA drain Cx. Hypokalemia: KCl 40 meq IV x 1 ordered today. Microcytic anemia with thrombocytosis: Stable since previous admission. Transfuse if Hg < 7. Prerenal azotemia: Dehydration. IV hydration as above. History of small bowel perforation status post emergent small bowel resection with [id number] duodenojejunostomy 09/06/2023 CODE STATUS: FULL CODE DVT Prophylaxis: Lovenox SQ GI Prophylaxis: Designated medical POA if patient is not able to make medical decisions for themselves: I have reviewed the following data processing systems consultant notes: Surgery, ID note. I have reviewed the results of the following tests: CBC, BMP, vanc trough, BCx, DEBORA drain Cx. I have ordered the following tests: CBC, BMP, Vanc trough. Monitor renal functio n while on Vanomcyin, maintain Trough at 15. I have discussed the care of this patient with the following independent historian: JERE regarding hypokalemia. I have independently interpreted the following test below: I have discussed the management of this patient with the following physician: Objective - Vital Signs Vital signs: Vital Signs Temp 98.1 F 10/12/23 07:49 Pulse 70 10/12/23 07:49 Resp 17 10/12/23 07:49 BP 170/91 10/12/23 07:49 Pulse Ox 98 10/12/23 02:00 FiO2 Intake & Output 10/11/23 10/12/23 10/12/23 18:59 06:59 18:59 Intake Total 800 Output Total 1500 1800 Balance -1500 -1000 Intake: Intake, IV Titration 800 Amount Piperacillin-Tazobactam 3 200 .375 gm In Sodium Chloride 0.9% 100 ml @ 25 mls/hr IVPB Q8HR [facility] Rx# :[id number] Sodium Chloride 0.9% 1, 600 000 ml @ 50 mls/hr IV . Q20H [facility] Rx#:[id number] Output: Gastric Drainage 1000 500 Urine 500 800 Stool 500 - Labs CBC & Chem 7: 10/12/23 06:46 10/12/23 06:46 Labs: Abnormal Lab Results - Last 24 Hours (Table) 10/12/23 10/12/23 Range/Units 06:46 06:46 RBC 3.76 L (4.30-5.90) m/uL Hgb 9.2 L (13.0-17.5) gm/dL Hct 30.4 L (39.0-53.0) % MCH 24.5 L (25.0-35.0) pg MCHC 30.3 L (31.0-37.0) g/dL RDW 15.8 H (11.5-15.5) % Plt Count 510 H (150-450) k/uL Potassium 3.2 L (3.5-5.1) mmol/L Creatinine 0.54 L (0.66-1.25) mg/dL Glucose 121 H (74-99) mg/dL Calcium 8.2 L (8.4-10.2) mg/dL Microbiology - Last 24 Hours (Table) 10/08/23 21:00 Blood Culture - Preliminary Blood 10/08/23 21:15 Blood Culture - Preliminary Blood 10/09/23 09:39 Gram Stain - Preliminary [facility] Body Fluid Culture - Preliminary Methicillin resist S. aureus Group D Enterococcus 10/09/23 09:36 Gram Stain - Preliminary [facility] Body Fluid Culture - Preliminary Methicillin resist S. aureus
[2023-10-12] MEDS: POTASSIUM CHLORIDE 10 MEQ in WATER FOR INJECTION 1 100ML.BAG IVPB SCH (10:43)
--- NOTE | 2023-10-12 10:51 | P.PN ---
Subjective Progress Note Date: 10/12/23 Patient has some complaints of some vague abdominal pain. He has had some limited oral intake. Objective - Vital Signs Vital signs: Vital Signs Temp 98.1 F 10/12/23 07:49 Pulse 70 10/12/23 07:49 Resp 17 10/12/23 07:49 BP 170/91 10/12/23 07:49 Pulse Ox 98 10/12/23 02:00 FiO2 Intake & Output 10/11/23 10/12/23 10/12/23 18:59 06:59 18:59 Intake Total 800 Output Total 1500 1800 Balance -1500 -1000 Intake: Intake, IV Titration 800 Amount Piperacillin-Tazobactam 3 200 .375 gm In Sodium Chloride 0.9% 100 ml @ 25 mls/hr IVPB Q8HR [facility] Rx# :[id number] Sodium Chloride 0.9% 1, 600 000 ml @ 50 mls/hr IV . Q20H [facility] Rx#:[id number] Output: Gastric Drainage 1000 500 Urine 500 800 Stool 500 - Gastrointestinal Gastrointestinal Comment(s): Abdomen soft - Labs CBC & Chem 7: 10/12/23 06:46 10/12/23 06:46 Labs: Abnormal Lab Results - Last 24 Hours (Table) 10/12/23 10/12/23 Range/Units 06:46 06:46 RBC 3.76 L (4.30-5.90) m/uL Hgb 9.2 L (13.0-17.5) gm/dL Hct 30.4 L (39.0-53.0) % MCH 24.5 L (25.0-35.0) pg MCHC 30.3 L (31.0-37.0) g/dL RDW 15.8 H (11.5-15.5) % Plt Count 510 H (150-450) k/uL Potassium 3.2 L (3.5-5.1) mmol/L Creatinine 0.54 L (0.66-1.25) mg/dL Glucose 121 H (74-99) mg/dL Calcium 8.2 L (8.4-10.2) mg/dL Microbiology - Last 24 Hours (Table) 10/08/23 21:00 Blood Culture - Preliminary Blood 10/08/23 21:15 Blood Culture - Preliminary Blood 10/09/23 09:39 Gram Stain - Preliminary [place] Body Fluid Culture - Preliminary Methicillin resist S. aureus Group D Enterococcus 10/09/23 09:36 Gram Stain - Preliminary [facility] Body Fluid Culture - Preliminary Methicillin resist S. aureus Assessment and Plan Assessment: Slowly resolving ileus. Patient to receive supportive care.
[2023-10-12] MEDS: VANCOMYCIN 1,000 MG in SODIUM CHLORIDE 0.9% 250 ML IVPB SCH (13:18)
--- NOTE | 2023-10-12 15:34 | P.PN ---
Subjective Progress Note Date: 10/12/23 Principal diagnosis: Reason for follow-up is fever/ileus/obstruction Patient is a 43-year-old -Iranian male past medical history significant for right-sided jaw cancer for the patient be treated with chemoradiation therapy, patient also have a history of alcohol abuse possible acute and chronic pancreatitis patient recently did have a prolonged hospital stay for bowel obstruction and this patient who did have a perforated small bowel and status post resection on 09/06/2023 did have prolonged ileus, now presenting back to the hospital abdominal pain and vomiting has been diagnosed with ileus/obstruction. On today's evaluation that is 10/12/2023, the patient continues to be afebrile, the patient is on room air and breathing comfortably, the Pt denies having any chest pain or cough, the patient has been complaining of abdominal pain still has significant output of the NG no bowel movement but mention passing gas. Patient white count is 5.8, creatinine 0.54 Objective - Vital Signs Vital signs: Vital Signs Temp 98.3 F 10/12/23 13:10 Pulse 75 10/12/23 13:10 Resp 18 10/12/23 13:10 BP 185/94 10/12/23 13:10 Pulse Ox 96 10/12/23 13:10 FiO2 Intake & Output 10/11/23 10/12/23 10/12/23 18:59 06:59 18:59 Intake Total 800 Output Total 1500 1800 Balance -1500 -1000 Intake: Intake, IV Titration 800 Amount Piperacillin-Tazobactam 3 200 .375 gm In Sodium Chloride 0.9% 100 ml @ 25 mls/hr IVPB Q8HR [facility] Rx# :[id number] Sodium Chloride 0.9% 1, 600 000 ml @ 50 mls/hr IV . Q20H [facility] Rx#:[id number] Output: Gastric Drainage 1000 500 Urine 500 800 Stool 500 - Exam GENERAL DESCRIPTION: Middle-age male lying in bed in no distress RESPIRATORY SYSTEM: Unlabored breathing , decreased breath sounds at bases HEART: S1 S2 regular rate and rhythm , ABDOMEN: Soft , mild distention and tenderness EXTREMITIES: No edema feet - Labs CBC & Chem 7: 10/12/23 06:46 10/12/23 06:46 Labs: Abnormal Lab Results - Last 24 Hours (Table) 10/12/23 10/12/23 Range/Units 06:46 06:46 RBC 3.76 L (4.30-5.90) m/uL Hgb 9.2 L (13.0-17.5) gm/dL Hct 30.4 L (39.0-53.0) % MCH 24.5 L (25.0-35.0) pg MCHC 30.3 L (31.0-37.0) g/dL RDW 15.8 H (11.5-15.5) % Plt Count 510 H (150-450) k/uL Potassium 3.2 L (3.5-5.1) mmol/L Creatinine 0.54 L (0.66-1.25) mg/dL Glucose 121 H (74-99) mg/dL Calcium 8.2 L (8.4-10.2) mg/dL Microbiology - Last 24 Hours (Table) 10/08/23 21:00 Blood Culture - Preliminary Blood 10/08/23 21:15 Blood Culture - Preliminary Blood 10/09/23 09:39 Gram Stain - Preliminary [place] Body Fluid Culture - Preliminary Methicillin resist S. aureus Group D Enterococcus 10/09/23 09:36 Gram Stain - Preliminary [place] Body Fluid Culture - Preliminary Methicillin resist S. aureus Assessment and Plan (1) Leukocytosis Current Visit: Yes Status: Acute Code(s): D72.829 - ELEVATED WHITE BLOOD CELL COUNT, UNSPECIFIED SNOMED Code(s): 638212818 (2) Ileus Current Visit: Yes Status: Acute Code(s): K56.7 - ILEUS, UNSPECIFIED SNOMED Code(s): 885948624 (3) MRSA (methicillin resistant staph aureus) culture positive Current Visit: Yes Status: Acute Code(s): Z22.322 - CARRIER OR SUSPECTED CARRIER OF METHICILLIN RESIS STAPH SNOMED Code(s): 773644069 Plan: 1patient presented hospital with sepsis in this patient who did have an elevated white count tachycardia source likely abdominal pain this patient did have predominantly abdominal symptoms with abdominal pain and vomiting CT has been suggestive of ileus/obstruction and will likely need to cover for the enteric gram-negative both aerobes and anaerobes 2-patient did have resolution of his leukocytosis, cultures from the [facility] are growing MRSA as well as Enterococcus with sensitivities pending, patient to continue with vancomycin and Unasyn awaiting further recommendation from surgery Dictation was produced using [employer] dictation software. please excuse any grammatical, word or spelling errors. Time with Patient: Less than 30
[2023-10-13] MEDS: cloNIDine HCL 0.2 MG TAB PO STA (01:14)
[2023-10-13] MEDS: METOCLOPRAMIDE 5 MG/ML 2 ML VIAL IVP STA (01:36)
--- NOTE | 2023-10-13 04:11 | XR ---
EXAM: XR Chest, 1 View CLINICAL HISTORY: Check placement of re-inserted NG TECHNIQUE: Frontal view of the chest. COMPARISON: 10/10/2023. FINDINGS: NG tube with tip in the stomach. Side-port is at the level of the gas esophageal junction. Right sided central venous line tip at the junction of the SVC and right atrium. Heart is normal size. Lungs are clear. No pleural effusion or pneumothorax. Bones are unremarkable. Redemonstrated diffuse gaseous distention of the abdomen. IMPRESSION: NG tube with tip in the stomach. Side-port is at the level of the gas esophageal junction. Otherwise no change.
[2023-10-13 06:45] LABS: African American GFR (CKD) >90 (>60 ml/min/1.73 sqM); Non-African American GFR(CKD) >90 (>60 ml/min/1.73 sqM)
--- NOTE | 2023-10-13 14:24 | FL ---
EXAMINATION TYPE: FL small bowel follow through DATE OF EXAM: 10/13/2023 CLINICAL HISTORY: Abdominal pain TECHNIQUE: A single contrast small bowel follow through is performed utilizing barium. COMPARISON: None FINDINGS: Dietary Tech image of the abdomen shows markedly dilated small bowel. NG tube noted. Diffuse oste openia. Hip arthropathy. Upper abdominal calcifications compatible with the reported pancreatic calci fications. The small bowel study shows abnormal transit with contrast not definitively seen within the colon and 3 hours 30 minutes. There is markedly dilated small bowel loops measuring a diameter of 7.5 cm.. Report called to the bo huynh's nurse at 2:21 PM 10/13/2023. IMPRESSION: 1. Markedly dilated small bowel loops with contrast still remaining within the small bowel at 3 hours and 30 minutes. Linear density in the upper quadrant air could represent a degree of pneumatosis. Re commend follow-up CT scan to exclude a small amount of pneumatosis intestinalis. Findings are compati ble with high-grade small bowel obstruction versus severe ileus. 2. The NG tube appears to reach the level of the gastric fundus with sidehole at the level of the GE junction and could be advanced
--- NOTE | 2023-10-13 15:28 | P.PN ---
Subjective Progress Note Date: 10/13/23 CHIEF COMPLAINT: Abdominal pain HISTORY OF PRESENT ILLNESS: This is a 43-year-old male with history of pe rforated proximal small bowel status post small bowel resection on 09/06/2023. Patient currently hospitalized with ileus. He had small bowel follow-through completed today that reported marked dilated small bowel loops with contrast still remaining within the small bowel at 3 hours. Linear density in the upper quadrant could represent a degree of pneumatosis. Findings are compatible with high-grade small bowel obstruction versus severe ileus. DEBORA drain culture with MRSA present PHYSICAL EXAM: VITAL SIGNS: Reviewed GENERAL: Well-developed in no acute distress. HEENT: No sclera icterus. Extraocular movements grossly intact. Moist buccal mucosa. Head is atraumatic, normocephalic. Hears conversational speech. No nasal drainage. NECK: Supple without lymphadenopathy. CHEST: Non-labored respirations and equal bilateral excursions. CARDIOVASCULAR: Palpable 2+ radial pulses. ABDOMEN: Distended. Diffuse tenderness. Midline incision healed clean dry and intact. MUSCULOSKELETAL: No clubbing or cyanosis. NEUROLOGIC: No focal or lateralizing signs. Cranial nerves II through XII grossly intact. PSYCH: Appropriate affect. Alert and oriented to person, place and time. SKIN: Well perfused. Good skin turgor. ASSESSMENT: 1. Possible high-grade small bowel obstruction 2. Recent perforated proximal small bowel status post small bowel resection on September 06, 2023 3. Leukocytosis 4. Chronic pancreatitis 5. 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 Prior history of PE 7. Dehydration 8. Hypomagnesemia 9. Underweight PLAN: -Continue NG tube for decompression -Keep patient n.p.o. -CT scan abdomen pelvis with IV contrast ordered for further evaluation of small bowel obstruction and possible pneumatosis intestinalis -Check lactic acid level -Repeat labs in a.m. -Continue antibiotics -PICC line ordered for TPN and antibiotics -Consult dietitian for TPN -DVT prophylaxis Lovenox Physician Nuclear Medicine Supervisor note has been reviewed by physician. Signing provider agrees with the documented findings, assessment, and plan of care. Objective - Vital Signs Vital signs: Vital Signs Temp 98.4 F 10/13/23 13:00 Pulse 90 10/13/23 13:00 Resp 16 10/13/23 13:00 BP 147/86 10/13/23 13:00 Pulse Ox 96 10/13/23 13:00 FiO2 Intake & Output 10/12/23 10/13/23 10/13/23 18:59 06:59 18:59 Intake Total 580 Output Total 600 100 Balance -20 -100 Weight 46.3 kg Intake: Oral 580 Output: Urine 600 100 - Labs CBC & Chem 7: 10/12/23 06:46 10/13/23 05:44 Labs: Abnormal Lab Results - Last 24 Hours (Table) 10/13/23 Range/Units 05:44 Creatinine 0.53 L (0.66-1.25) mg/dL Microbiology - Last 24 Hours (Table) 10/09/23 09:36 Gram Stain - Final [facility] Body Fluid Culture - Final Methicillin resist S. aureus
[2023-10-13 15:49] LABS: Anisocytosis Slight; Basophils % (A) 1 %; Eosinophils % (A) 1 %; HCT 30.4 % (39.0-53.0); HGB 9.5 gm/dL (13.0-17.5); Hypochromasia Marked; Lymphocytes # (A) 0.7 k/uL (1.0-4.8); Lymphocytes % (A) 12 %; MCHC 31.2 g/dL (31.0-37.0); MCV 79.9 fL (80.0-100.0); Monocytes # (A) 0.4 k/uL (0-1.0); Monocytes % (A) 6 %; Neutrophils % (A) 79 %; Platelet Count 454 k/uL (150-450); Poikilocytosis Slight; WBC 6.3 k/uL (3.8-10.6)
--- NOTE | 2023-10-13 16:50 | CT ---
EXAMINATION TYPE: CT abdomen pelvis w con CT DLP: 362.5 mGycm, Automated exposure control for dose reduction was used. DATE OF EXAM: 10/13/2023 4:39 PM COMPARISON: CT abdomen pelvis most recent from 10/08/2023. CLINICAL INDICATION:Male, 43 years old with history of abdominal pain, distention; follow up on SBO, prior SBFT earlier today TECHNIQUE: Axial CT abdomen pelvis w con;Sagittal and coronal reformats were created on a separate w orkstation. Contrast used:100 cc mL of Isovue 370 with IV Contrast, (none if empty) Oral contrast used: without Oral Contrast (none if empty) FINDINGS: LOWER CHEST: Unremarkable ABDOMEN LIVER: Unremarkable GALLBLADDER AND BILE DUCTS: Unremarkable. PANCREAS: Chronic pancreatitis changes with calcifications of the pancreas. SPLEEN: Unremarkable. ADRENAL GLANDS: Unremarkable. KIDNEYS AND URETERS: No evidence of hydronephrosis or renal calculus. The ureters are unremarkable. PELVIS BLADDER: Unremarkable REPRODUCTIVE: Unremarkable. ABDOMEN & PELVIS STOMACH AND BOWEL: Multiple loops of distended bowel are seen throughout the abdomen predominantly in volving the small bowel loop in the pelvis measuring up to 5.8 cm. This area was the area of concern for pneumatosis on small bowel follow-through. No pneumatosis is identified. There is thought to be a transition point in the right lower quadrant with dilated loop of small bowel transitioning to compr ess loops of small bowel. This is thought to be due to mechanical compression from other distended lo ops of bowel. There is compression of the sigmoid colon/descending colon as it tries to cross into th e pelvis series 4 image 54 due to large amount of stool in the small bowel. PERITONEUM/RETROPERITONEUM: No evidence of pneumoperitoneum or free fluid. VASCULATURE: No evidence of aortic aneurysm. MUSCULOSKELETAL: No acute osseous abnormalities LYMPH NODES: No gross evidence for lymphadenopathy. SOFT TISSUE/ABDOMINAL WALL: Unremarkable IMPRESSION: 1. No evidence for pneumatosis. Findings on prior on prior were secondary to gas along the nondepend ent portion of the colon. 2. There remains dilation of multiple loops of small bowel. Transition point felt to be in the right lower quadrant unclear whether this is mechanical transition point or secondary to diffuse dilation and burden of fluid/feces in multiple adjacent loops of bowel which are compressing other loops of sara wel and preventing them from passing stool/small bowel contents. There is also obstruction of the sig moid colon/descending colon as it tries to cross into the pelvis series 4 image 54 due to large amoun t of stool in the small bowel. 3. Chronic pancreatitis changes.
--- NOTE | 2023-10-13 17:32 | P.PN ---
Subjective Progress Note Date: 10/13/23 42-year-old male with a past medical history of chronic pancreatitis, alcoholism, history of pulmonary emboli, right-sided jaw cancer status post chemo/radiation treatment, GERD with erosive esophagitis, and gastritis. He was recently hospitalized from 09/04-09/18 for small bowel perforation status post vane gent small bowel resection with [id number]-sx-[id number] duodenojejunostomy 09/06/2023 complicated by post operative ileus. He completed multiple days of IV antibiotics and discharged home on PO Augmentin and DEBORA drain. He reports increased abdominal pain, abdominal distention and multiple episodes of bilious N/V which prompted him to come back to the ED. in the ED, he underwent extensive evaluation. BP 145/95, HR 101, RR 18, T 90 7.8F, 100% on RA. CBC showed WBC count 18.5, hemoglobin 10.6, hematocrit 33.2, MCV 79, platelet 634. CMP showed sodium 134, bicarb 20, creatinine 0.48, glucose 167, albumin 2.9. Lipase 473. Lactic acid 1.4. CT AP shows diffuse SB dilation, drainage catheter in place, chronic pancreatitis changes. He reports bowel movements. [facility] Physicians consulted for medical management of this patient. 10/09 Patient was seen and examined. Reports continued abdominal pain. Received 6 mg of Dilaudid over the past 24H. Surgery note reviewed, received soap suds enema and lactulose yesterday. ID recommends continuing Zosyn IV. He reports no bowel movement yet. 2 episodes on N/V last night. CBC Hg 8.3 Hct 26.6 MCV 76.6 Plt 482. BMP AG 13.5, BUN/Cr 20.43, glu 117, Ca 8.3. Lactic acid 1.7. DEBORA drain Cx and BCx negative so far. 10/10 Patient was seen and examined. NG tube inserted yesterday to suction. Surgery note reviewed, defer enema for small bowel follow through on Friday, possible inpatient C-scope for suspicion for sigmoid volvulus. DEBORA drain culture growing presumptive MRSA. I have started the patient on Vancomycin dosed per pharmacy. 10/11 Patient was seen and examined. NG tube to suction. Maintained on Vanomcyin (D2). Zosyn switched to Unasyn by ID to decrease risk of nephrotoxicity. CBC Hg 9.2 Hct 30.4 Plt 510. BMP K 3.2, Cr 0.54, glu 121, Ca 8.2. Vanc trough 23.6. DEBORA drain growing presumptive MRSA and group D enterococcus. 10/12 Patient was seen and examined. Clinically unchanged. NG tube to suction. Small bowel follow through suspicious for SBO. CT AP ordered by Surgery. Plans for PICC line for TPN. Maintained on Vanomcyin (D3) and Unasyn (D3). CBC Hg 9.5 Hct 30.4 Plt 454. Lactic acid 0.6. General: non toxic, no distress, appears at stated age Derm: warm, dry Head: atraumatic, normocephalic, symmetric, NG tube Eyes: EOMI, no lid lag, anicteric sclera Mouth: no lip lesion, mucus membranes moist Cardiovascular: S1S2 reg, no murmur Lungs: CTA bilateral, no rhonchi, no rales , no accessory muscle use Abdominal: distended, midline surgical scar, DEBORA drain intact, TTP in all 4 quadrants, no guarding, no appreciable organomegaly Ext: no gross muscle atrophy, no edema, no contractures Neuro: no focal neuro deficits Psych: Alert, oriented, appropriate affect Based on my assessment of this patient, this patient meets a high complexity level of care. Patient has an acute diagnosis of ileus versus SBO which poses a threat to life or bodily function. Abdominal pain, ileus versus small bowel obstruction seen on CTA: Surgery note reviewed, likely ileus and constipation. Small bowel follow through suspicious for SBO, CT AP ordered by surgery, possible inpatient C-scope for suspicion for sigmoid volvulus. Pain control with Dilaudid 1mg IV Q2H, monitor for respiratory depression. Zofran 4 mg IV Q8H PRN for N/V. Surgery on board. Sepsis related to above: Switch Zosyn (D3) to Unasyn 3g IV TID (D3). DEBORA drain Cx + presumptive MRSA and group D enterococcus, started on Vancomycin 10/10. ID on board. Follow BCx. Follow DEBORA drain Cx. Hypokalemia Microcytic anemia with thrombocytosis: Stable since previous admission. Transfuse if Hg < 7. Prerenal azotemia: Dehydration. IV hydration as above. History of small bowel perforation status post emergent small bowel resection with cgoi-ye-enyv duodenojejunostomy 09/06/2023 CODE STATUS: FULL CODE DVT Prophylaxis: Lovenox SQ GI Prophylaxis: Designated medical POA if patient is not able to make medical decisions for themselves: I have reviewed the following regulatory affairs consultant notes: Surgery, ID note. I have reviewed the results of the following tests: CBC, lactic acid. I have ordered the following tests: CBC, BMP, Vanc trough. Monitor renal function while on Vanomcyin, maintain Trough at 15. I have discussed the care of this patient with the following independent historian: I have independently interpreted the following test below: I have discussed the management of this patient with the following physician: Objective - Vital Signs Vital signs: Vital Signs Temp 98.4 F 10/13/23 13:00 Pulse 90 10/13/23 13:00 Resp 16 10/13/23 13:00 BP 147/86 10/13/23 13:00 Pulse Ox 96 10/13/23 13:00 FiO2 Intake & Output 10/12/23 10/13/23 10/13/23 18:59 06:59 18:59 Intake Total 580 Output Total 385 467 2219 Balance -20 -100 -1200 Weight 46.3 kg Intake: Oral 580 Output: Gastric Drainage 1200 Urine 600 100 - Labs CBC & Chem 7: 10/13/23 15:37 10/13/23 05:44 Labs: Abnormal Lab Results - Last 24 Hours (Table) 10/13/23 10/13/23 10/13/23 Range/Units 05:44 15:37 15:37 RBC 3.80 L (4.30-5.90) m/uL Hgb 9.5 L (13.0-17.5) gm/dL Hct 30.4 L (39.0-53.0) % MCV 79.9 L (80.0-100.0) fL RDW 16.0 H (11.5-15.5) % Plt Count 454 H (150-450) k/uL Lymphocytes # 0.7 L (1.0-4.8) k/uL Creatinine 0.53 L (0.66-1.25) mg/dL Plasma Lactic Acid [place] 0.6 L (0.7-2.0) mmol/L Microbiology - Last 24 Hours (Table) 10/09/23 09:36 Gram Stain - Final [facility] Body Fluid Culture - Final Methicillin resist S. aureus
--- NOTE | 2023-10-13 22:33 | P.PN ---
Subjective Progress Note Date: 10/13/23 Principal diagnosis: Reason for follow-up is fever/ileus/obstruction Patient is a 43-year-old -Maldivian male past medical history significant for right-sided jaw cancer for the patient be treated with chemoradiation therapy, patient also have a history of alcohol abuse possible acute and chronic pancreatitis patient recently did have a prolonged hospital stay for bowel obstruction and this patient who did have a perforated small bowel and status post resection on 09/06/2023 did have prolonged ileus, now presenting back to the hospital abdominal pain and vomiting has been diagnosed with ileus/obstruction. On today's evaluation that is 10/13/2023, Patient is afebrile patient is currently on room air and denies having any shortness of breath, the patient denies any chest pain or cough, the patient denies any nausea vomiting however has been complaining of abdominal pain did mention still having a bowel movement. Patient white count 6.3 creatinine 0.53 Objective - Vital Signs Vital signs: Vital Signs Temp 98.4 F 10/13/23 13:00 Pulse 90 10/13/23 13:00 Resp 16 10/13/23 13:00 BP 147/86 10/13/23 13:00 Pulse Ox 96 10/13/23 13:00 FiO2 Intake & Output 10/12/23 10/13/23 10/13/23 18:59 06:59 18:59 Intake Total 580 Output Total 600 100 Balance -20 -100 Intake: Oral 580 Output: Urine 600 100 - Exam GENERAL DESCRIPTION: Middle-age male lying in bed in no distress RESPIRATORY SYSTEM: Unlabored breathing , decreased breath sounds at bases HEART: S1 S2 regular rate and rhythm , ABDOMEN: Soft , mild distention and tenderness EXTREMITIES: No edema feet - Labs CBC & Chem 7: 10/13/23 15:37 10/13/23 05:44 Labs: Abnormal Lab Results - Last 24 Hours (Table) 10/13/23 Range/Units 05:44 Creatinine 0.53 L (0.66-1.25) mg/dL Microbiology - Last 24 Hours (Table) 10/09/23 09:36 Gram Stain - Final [facility] Body Fluid Culture - Final Methicillin resist S. aureus Assessment and Plan (1) Leukocytosis Current Visit: Yes Status: Acute Code(s): D72.829 - ELEVATED WHITE BLOOD CELL COUNT, UNSPECIFIED SNOMED Code(s): 497353239 (2) Ileus Current Visit: Yes Status: Acute Code(s): K56.7 - ILEUS, UNSPECIFIED SNOMED Code(s): 469059459 (3) MRSA (methicillin resistant staph aureus) culture positive Current Visit: Yes Status: Acute Code(s): Z22.322 - CARRIER OR SUSPECTED CARRIER OF METHICILLIN RESIS STAPH SNOMED Code(s): 969098723 Plan: 1patient presented hospital with sepsis in this patient who did have an elevated white count tachycardia source likely abdominal pain this patient did have predominantly abdominal symptoms with abdominal pain and vomiting CT has been suggestive of ileus/obstruction and will likely need to cover for the enteric gram-negative both aerobes and anaerobes 2-patient did have resolution of his leukocytosis, cultures from the [place] are growing MRSA as well as Enterococcus 3-, patient to continue with vancomycin and Unasyn and follow-up on repeat CT abdominal pelvis ordered by surgery Dictation was produced using [employer] dictation software. please excuse any grammatical, word or spelling errors. Time with Patient: Less than 30
[2023-10-14] MEDS ORDERED: DEXTROSE 50% SYRINGE 50 ML IVP PRN ×2 (08:39)
[2023-10-14] MEDS: PANTOPRAZOLE 40 MG/10 ML VIAL IVP SCH (09:10)
[2023-10-14 11:16] LABS: Ionized Calcium 4.3 mg/dL (4.5-5.3)
[2023-10-14 11:20] LABS: African American GFR (CKD) >90 (>60 ml/min/1.73 sqM); Non-African American GFR(CKD) >90 (>60 ml/min/1.73 sqM)
[2023-10-14 11:21] LABS: ALT 11 U/L (4-49); African American GFR (CKD) >90 (>60 ml/min/1.73 sqM); Albumin 3.2 g/dL (3.5-5.0); Anion Gap 12 mmol/L; Blood Urea Nitrogen 19 mg/dL (9-20); Calcium 8.2 mg/dL (8.4-10.2); Carbon Dioxide 38 mmol/L (22-30); Chloride 98 mmol/L (98-107); Globulin 3.1 g/dL; Glucose 100 mg/dL (74-99); Non-African American GFR(CKD) >90 (>60 ml/min/1.73 sqM); Sodium 148 mmol/L (137-145); Total Bilirubin 0.7 mg/dL (0.2-1.3); Total Protein 6.3 g/dL (6.3-8.2)
[2023-10-14 11:24] LABS: AST 29 U/L (17-59); Alkaline Phosphatase 101 U/L (38-126); Magnesium 1.7 mg/dL (1.6-2.3); Phosphorus 4.4 mg/dL (2.5-4.5); Potassium 3.6 mmol/L (3.5-5.1)
[2023-10-14 12:03] LABS: Anisocytosis Slight; Basophils % (A) 0 %; Eosinophils % (A) 0 %; HCT 31.7 % (39.0-53.0); HGB 9.9 gm/dL (13.0-17.5); Hypochromasia Marked; Lymphocytes # (A) 0.9 k/uL (1.0-4.8); Lymphocytes % (A) 16 %; MCH 24.6 pg (25.0-35.0); MCHC 31.3 g/dL (31.0-37.0); MCV 78.8 fL (80.0-100.0); Mean Platelet Volume 7.7; Microcytosis Slight; Monocytes # (A) 0.3 k/uL (0-1.0); Monocytes % (A) 6 %; Neutrophils # (A) 4.4 k/uL (1.3-7.7); Neutrophils % (A) 76 %; Platelet Count 484 k/uL (150-450); Poikilocytosis Slight; RBC 4.02 m/uL (4.30-5.90); RDW 16.5 % (11.5-15.5); WBC 5.9 k/uL (3.8-10.6)
--- NOTE | 2023-10-14 12:06 | IR ---
EXAMINATION TYPE: IR cvc insert >=5 years DATE OF EXAM: 10/14/2023 COMPARISON: NONE HISTORY: Fluoroscopy time. Fluoroscopy was provided to the referring clinician.
--- NOTE | 2023-10-14 12:09 | P.PCN ---
Date of Procedure: 10/14/23 Preoperative Diagnosis: Need for long-term IV antibiotics and TPN Postoperative Diagnosis: Same Procedure(s) Performed: Left upper extremity lateral brachial vein PICC line placement under ultrasound and fluoroscopic guidance Left upper extremity venogram and central venogram Anesthesia: local Surgeon: Dameon Clarke Estimated Blood Loss (ml): 10 Pathology: none sent Condition: stable Disposition: floor Indications for Procedure: 43-year-old gentleman with history of abdominal obstruction and unable to tolerate oral intake who is in need of TPN as well as continued IV antibiotics for greater than 10 days presents to the [facility] for placement of dual-lumen PICC line. Operative Findings: Left upper extremity brachial vein once in the axillary region bifurcates into the subclavian vein and a branch of the subclavian vein. Description of Procedure: After written and informed consent was obtained the patient and all risks, benefits and competitions were described the patient was brought to the [facility] and laid in a supine position with his left arm outstretched on an armboard. The area of the left arm was prepped and draped in usual sterile fashion. Timeout was performed in normal fashion. Under ultrasound guidance the basilic and cephalic veins were too small for placement of a PICC line. He did have a lateral brachial vein that was large and did extend to the axillary region. Utilizing ultrasound the lateral brachial vein was visualized and shown to be compressible without any visible thrombus. Under ultrasound guidance the lateral brachial vein was then cannulated with a micropuncture needle and wire was placed under direct visualization of fluoroscopy. Introducer sheath was then placed. The catheter was measured and cut to the appropriate length which was 47 cm. The catheter was then guided through the breakaway sheath but was unable to traverse into the axillary vein down to the subclavian vein and therefore venogram was obtained demonstrating a branch point. Utilizing an angled wire the subclavian vein was accessed and the catheter was then placed over the wire into appropriate positioning and the sheath was removed with good positioning was visualized under fluoroscopy. The catheter was pulled and flushed easily. It was then secured in place in normal fashion. Patient tolerated the procedure well was sent back to his room for recovery.
[2023-10-14] MEDS: VANCOMYCIN TROUGH DUE 1 EACH MISC MISCELLANE ONE (12:36)
[2023-10-14] MEDS: CALCIUM GLUCONATE IN NACL 1 GM in SALINE 1 100ML.BAG IVPB ONE (12:51)
[2023-10-14 13:08] LABS: Glucose,Whole Blood 110 mg/dL (70-110)
--- NOTE | 2023-10-14 13:57 | P.PN ---
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 He completed multiple days of IV antibiotics and discharged home on PO Augmentin and DEBORA drain. He presented to the emergency department on 10/09/2023 with a chief complaint of increased abdominal pain, abdominal distention and multiple episodes of bilious vomiting. Upon arrival in the emergency department, patient underwent full evaluation. Vital signs upon arrival showed BP 145/95, HR 101, RR 18, T 90 7.8F, 100% on RA. Labs were completed and revie wed CBC showed WBC count 18.5, hemoglobin 10.6, hematocrit 33.2, MCV 79, platelet 634. CMP showed sodium 134, bicarb 20, creatinine 0.48, glucose 167, albumin 2.9. Lipase 473. Lactic acid 1.4. CT abdomen and pelvis was completed revealing diffuse SB dilation with bowel containing gas, feces, and fluid suspicious for ileus versus small bowel obstruction, drainage catheter in place, and chronic pancreatitis changes. Patient reported having bowel movements despite abdominal distention and worsening pain. Patient was admitted to general surgery team and [facility] was consulted for medical management of this patient throughout hospitalization. Physical exam: Patient seen and fully evaluated at bedside this morning. He was sitting up in the chair visiting with family at bedside. Vital signs reviewed and stable. General: Nontoxic, no acute distress and appears older than stated age. Thin and frail. Derm: Skin warm and dry, normal coloration for ethnicity. Head: Atraumatic, normocephalic and symmetric. Eyes: EOMs intact, no lid lag, and anicteric sclera Mouth: no lip lesions, mucus membranes moist Cardiovascular: regular rate and rhythm with normal S1S2, no murmur, positive posterior tibial pulses bilaterally, and cap refill < 2 seconds. Lungs: Respirations even, regular, and unlabored on room air. Lungs CTA bilaterally, no rhonchi, no rales, no wheezing, and no accessory muscle usage. Abdominal: Postsurgical incision midline intact, DEBORA drain in place. Patient reports tenderness to palpation in all 4 quadrants. Abdomen slightly distended. Ext: ROM intact. No gross muscle atrophy, no edema, no contractures Neuro: Speech clear, face symmetrical and CN II-XII grossly intact with no noted focal neuro deficits Psych: Alert and oriented to person, place, time, and situation. Appropriate and pleasant affect. Assessment and Plan of Care: MRSSA infection Abdominal pain, ileus versus small bowel obstruction seen on CTA History of GERD with erosive esophagitis History of gastritis Elevated lipase with history of chronic pancreatitis Severe protein calorie malnutrition with BMI of 16.9 kg/m -Continue NG tube to low intermittent suctioning -General surgery following, reviewed documentation in chart -Small bowel follow through suspicious for SBO, CT AP ordered by surgery, possible inpatient C-scope for suspicion for sigmoid volvulus -Symptomatic care and pain management. Zofran 4 mg IVP every 8 hours as needed for nausea and/or vomiting and Dilaudid 1 mg every 2 hours as needed for pain. -Continue gentle IV fluid hydration with 0.9% normal saline at 50 cc/h. -Protonix 40 mg IVP daily -Strict NPO while NG tube is in place and orders placed for aspiration precautions -Patient placed on glycemic protocol with [id number] glucose checks to be completed every 6 hours while NPO -Consult placed to dietitian secondary to severe protein calorie malnutrition with BMI of 16.5 kg/m, patient scheduled for PICC line placement later today for TPN -DEBORA drain culture was positive for MRSA and group D enterococcus faecalis -Continue Unasyn 3g IV every 8 hours (D4) and vancomycin 1000 mg every 12 hours (D4). Continue to monitor vancomycin trough and renal function closely for signs of vancomycin associated renal toxicity. -Blood cultures showing no growth to date. Hypokalemia, resolved Hypomagnesemia, magnesium 1.7 order was placed for magnesium sulfate IVPB 2 g x 1 dose. Will continue to monitor with repeat a.m. labs and replace abnormal electrolyte values as indicated based upon these results. Microcytic anemia with thrombocytosis: -Stable since previous admission. Transfuse if Hg < 7 and is currently stable at 9.9. History of small bowel perforation status post emergent small bowel resection with [id number] duodenojejunostomy 09/06/2023 Data reviewed: Vital signs reviewed. Blood pressure 143/82, heart rate 70, respiratory rate 16, temp 98.0 F, and SpO2 of 96% on room air. Morning labs reviewed. CBC showing stable microcytic anemia with hemoglobin of 9.9 and mild thrombocytosis with platelet count of 484. BMP revealing hyper natremia with sodium of 148 and hypercarbia with bicarb of 38. Renal function remains unremarkable. Magnesium slightly low at 1.7. Liver profile normal findings. Albumin is low at 3.2. Triglycerides currently pending. Vancomycin trough is therapeutic at 22.9. CODE STATUS: FULL CODE DVT Prophylaxis: Lovenox SQ GI Prophylaxis: Protonix Anticipated discharge date: Clinical course to determine Anticipated discharge place: Clinical course to determine Patient was seen independently by Nurse Pracitioner. This document was prepared using [employer] dictation software. Please allow for errors in instructional design technologist, while rare they do occur. I reviewed the documentation as provided by the CATRINA above, who is the original author of this note. I agree with the documented assessment and plan, with the following changes: none Objective - Vital Signs Vital signs: Vital Signs Temp 98.0 F 10/14/23 07:21 Pulse 70 10/14/23 07:21 Resp 16 10/14/23 07:21 BP 143/82 10/14/23 07:21 Pulse Ox 96 10/14/23 07:21 FiO2 Intake & Output 10/13/23 10/14/23 10/14/23 18:59 06:59 18:59 Output Total 2600 1500 1300 Balance -2600 -1500 -1300 Weight 46.3 kg Output: Gastric Drainage 2200 1000 1200 Urine 400 500 100 Other: Voiding Method Urinal # Voids 1 - Labs CBC & Chem 7: 10/14/23 10:51 10/15/23 05:07 Labs: Abnormal Lab Results - Last 24 Hours (Table) 10/13/23 10/13/23 Range/Units 15:37 15:37 RBC 3.80 L (4.30-5.90) m/uL Hgb 9.5 L (13.0-17.5) gm/dL Hct 30.4 L (39.0-53.0) % MCV 79.9 L (80.0-100.0) fL RDW 16.0 H (11.5-15.5) % Plt Count 454 H (150-450) k/uL Lymphocytes # 0.7 L (1.0-4.8) k/uL Plasma Lactic Acid Shady 0.6 L (0.7-2.0) mmol/L Microbiology - Last 24 Hours (Table) 10/08/23 21:00 Blood Culture - Final Blood 10/08/23 21:15 Blood Culture - Final Blood 10/09/23 09:39 Gram Stain - Final [facility] Body Fluid Culture - Final Enterococcus faecalis Methicillin resist S. aureus
[2023-10-14] MEDS: POTASSIUM CHLORIDE 20 MEQ in WATER FOR INJECTION 1 100ML.BAG IVPB SCH (14:03)
[2023-10-14] MEDS: MAGNESIUM SULFATE-D5W PMX 1 GM in DEXTROSE/WATER 1 100ML.BAG IVPB SCH (14:03)
--- NOTE | 2023-10-14 14:24 | P.PN ---
Subjective Progress Note Date: 10/14/23 CHIEF COMPLAINT: Abdominal pain HISTORY OF PRESENT ILLNESS: This is a 43-year-old male with history of pe rforated proximal small bowel status post small bowel resection on 09/06/2023. Patient is hospitalized with a partial small bowel obstruction. He has NG tube in place. CT scan abdomen and pelvis had reported no evidence of pneumatosis. Findings on prior study were secondary to gas along the nondependent portion of the colon. There remains dilation of multiple loops of small bowel. Transition point felt to be in the right lower quadrant unclear whether this mechanical transition point or secondary to diffuse dilation and burden of fluid/feces and multiple adjacent loops of bowel which are compressing other loops of bowel and preventing them from passing stool/small bowel contents. There is also obstruction of the sigmoid colon/descending colon due to large amount of stool in the small bowel. Chronic pancreatitis. Patient continues to have abdominal pain. Continues to have abdominal distention. He is having flatus. No bowel movement. NG tube with 1200 mL output. He is scheduled for PICC line placement today and to start TPN. Afebrile. WBC is 5.9 Hgb 9.9 platelets are 44 sodium is 148 potassium 3.6 creatinine 0.62 PHYSICAL EXAM: VITAL SIGNS: Reviewed GENERAL: Well-developed in no acute distress. HEENT: No sclera icterus. Extraocular movements grossly intact. Moist buccal mucosa. Head is atraumatic, normocephalic. Hears conversational speech. No nasal drainage. NECK: Supple without lymphadenopathy. CHEST: Non-labored respirations and equal bilateral excursions. CARDIOVASCULAR: Palpable 2+ radial pulses. ABDOMEN: Distended. Diffuse tenderness. Midline incision healed clean dry and intact. MUSCULOSKELETAL: No clubbing or cyanosis. NEUROLOGIC: No focal or lateralizing signs. Cranial nerves II through XII grossly intact. PSYCH: Appropriate affect. Alert and oriented to person, place and time. SKIN: Well perfused. Good skin turgor. ASSESSMENT: 1. Chronic partial bowel obstruction 2. Recent perforated proximal small bowel status post small bowel resection on September 06, 2023 3. Leukocytosis 4. Chronic pancreatitis 5. 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 Prior history of PE 7. Dehydration 8. Hypomagnesemia 9. Underweight 10. Severe protein calorie malnutrition PLAN: -Patient clinically presenting with a chronic partial bowel obstruction. He may need surgical exploration during this hospitalization. Surgical intervention is pending patient's nutritional status -Continue NG tube for decompression -Continue antibiotics -Patient scheduled for PICC line and TPN today -Consult dietitian for high protein TPN -DVT prophylaxis Lovenox Physician Visual Communications Instructor note has been reviewed by physician. Signing provider agrees with the documented findings, assessment, and plan of care. Objective - Vital Signs Vital signs: Vital Signs Temp 97.8 F 10/14/23 13:07 Pulse 67 10/14/23 13:07 Resp 18 10/14/23 13:07 BP 146/81 10/14/23 13:07 Pulse Ox 97 10/14/23 13:07 FiO2 Intake & Output 10/13/23 10/14/23 10/14/23 18:59 06:59 18:59 Output Total 2600 1500 1450 Balance -2600 -1500 -1450 Weight 46.3 kg Output: Gastric Drainage 2200 1000 1200 Urine 400 500 250 Other: Voiding Method Urinal Urinal # Voids 1 - Labs CBC & Chem 7: 10/14/23 10:51 10/14/23 10:51 Labs: Abnormal Lab Results - Last 24 Hours (Table) 10/13/23 10/13/23 10/14/23 Range/Units 15:37 15:37 10:51 RBC 3.80 L (4.30-5.90) m/uL Hgb 9.5 L (13.0-17.5) gm/dL Hct 30.4 L (39.0-53.0) % MCV 79.9 L (80.0-100.0) fL MCH (25.0-35.0) pg RDW 16.0 H (11.5-15.5) % Plt Count 454 H (150-450) k/uL Lymphocytes # 0.7 L (1.0-4.8) k/uL Sodium 148 H (137-145) mmol/L Carbon Dioxide 38 H (22-30) mmol/L Creatinine 0.63 L (0.66-1.25) mg/dL Glucose 100 H (74-99) mg/dL Plasma Lactic Acid Shady 0.6 L (0.7-2.0) mmol/L Calcium 8.2 L (8.4-10.2) mg/dL Ionized Calcium Shayy 4.3 L (4.5-5.3) mg/dL Albumin 3.2 L (3.5-5.0) g/dL 10/14/23 10/14/23 Range/Units 10:51 10:51 RBC 4.02 L (4.30-5.90) m/uL Hgb 9.9 L (13.0-17.5) gm/dL Hct 31.7 L (39.0-53.0) % MCV 78.8 L (80.0-100.0) fL MCH 24.6 L (25.0-35.0) pg RDW 16.5 H (11.5-15.5) % Plt Count 484 H (150-450) k/uL Lymphocytes # 0.9 L (1.0-4.8) k/uL Sodium (137-145) mmol/L Carbon Dioxide (22-30) mmol/L Creatinine 0.62 L (0.66-1.25) mg/dL Glucose (74-99) mg/dL Plasma Lactic Acid Shady (0.7-2.0) mmol/L Calcium (8.4-10.2) mg/dL Ionized Calcium Shayy (4.5-5.3) mg/dL Albumin (3.5-5.0) g/dL Microbiology - Last 24 Hours (Table) 10/08/23 21:00 Blood Culture - Final Blood 10/08/23 21:15 Blood Culture - Final Blood 10/09/23 09:39 Gram Stain - Final [facility] Body Fluid Culture - Final Enterococcus faecalis Methicillin resist S. aureus
--- NOTE | 2023-10-14 14:30 | P.PN ---
Subjective Progress Note Date: 10/14/23 Principal diagnosis: Reason for follow-up is fever/ileus/obstruction Patient is a 43-year-old -[place] male past medical history significant for right-sided jaw cancer for the patient be treated with chemoradiation therapy, patient also have a history of alcohol abuse possible acute and chronic pancreatitis patient recently did have a prolonged hospital stay for bowel obstruction and this patient who did have a perforated small bowel and status post resection on 09/06/2023 did have prolonged ileus, now presenting back to the hospital abdominal pain and vomiting has been diagnosed with ileus/obstruction. On today's evaluation that is 10/14/2023, patient has been afebrile, patient is breathing comfortably and is currently on room air, patient denies having any significant cough no chest pain shortness of breath, patient denies nausea vomiting still complaining of abdominal pain though mention no significant improvement. Patient did have white count of 5.9, creatinine 0.62 Vanco trough is 22.9 Objective - Vital Signs Vital signs: Vital Signs Temp 97.8 F 10/14/23 13:07 Pulse 67 10/14/23 13:07 Resp 18 10/14/23 13:07 BP 146/81 10/14/23 13:07 Pulse Ox 97 10/14/23 13:07 FiO2 Intake & Output 10/13/23 10/14/23 10/14/23 18:59 06:59 18:59 Output Total 2600 1500 1450 Balance -2600 -1500 -1450 Weight 46.3 kg Output: Gastric Drainage 2200 1000 1200 Urine 400 500 250 Other: Voiding Method Urinal Urinal # Voids 1 - Exam GENERAL DESCRIPTION: Middle-age male lying in bed in no distress RESPIRATORY SYSTEM: Unlabored breathing , decreased breath sounds at bases HEART: S1 S2 regular rate and rhythm , ABDOMEN: Soft , mild distention and tenderness EXTREMITIES: No edema feet - Labs CBC & Chem 7: 10/14/23 10:51 10/14/23 10:51 Labs: Abnormal Lab Results - Last 24 Hours (Table) 10/13/23 10/13/23 10/14/23 Range/Units 15:37 15:37 10:51 RBC 3.80 L (4.30-5.90) m/uL Hgb 9.5 L (13.0-17.5) gm/dL Hct 30.4 L (39.0-53.0) % MCV 79.9 L (80.0-100.0) fL MCH (25.0-35.0) pg RDW 16.0 H (11.5-15.5) % Plt Count 454 H (150-450) k/uL Lymphocytes # 0.7 L (1.0-4.8) k/uL Sodium 148 H (137-145) mmol/L Carbon Dioxide 38 H (22-30) mmol/L Creatinine 0.63 L (0.66-1.25) mg/dL Glucose 100 H (74-99) mg/dL Plasma Lactic Acid Shady 0.6 L (0.7-2.0) mmol/L Calcium 8.2 L (8.4-10.2) mg/dL Ionized Calcium Shayy 4.3 L (4.5-5.3) mg/dL Albumin 3.2 L (3.5-5.0) g/dL 10/14/23 10/14/23 Range/Units 10:51 10:51 RBC 4.02 L (4.30-5.90) m/uL Hgb 9.9 L (13.0-17.5) gm/dL Hct 31.7 L (39.0-53.0) % MCV 78.8 L (80.0-100.0) fL MCH 24.6 L (25.0-35.0) pg RDW 16.5 H (11.5-15.5) % Plt Count 484 H (150-450) k/uL Lymphocytes # 0.9 L (1.0-4.8) k/uL Sodium (137-145) mmol/L Carbon Dioxide (22-30) mmol/L Creatinine 0.62 L (0.66-1.25) mg/dL Glucose (74-99) mg/dL Plasma Lactic Acid Shady (0.7-2.0) mmol/L Calcium (8.4-10.2) mg/dL Ionized Calcium Shayy (4.5-5.3) mg/dL Albumin (3.5-5.0) g/dL Microbiology - Last 24 Hours (Table) 10/08/23 21:00 Blood Culture - Final Blood 10/08/23 21:15 Blood Culture - Final Blood 10/09/23 09:39 Gram Stain - Final [facility] Body Fluid Culture - Final Enterococcus faecalis Methicillin resist S. aureus Assessment and Plan (1) Leukocytosis Current Visit: Yes Status: Acute Code(s): D72.829 - ELEVATED WHITE BLOOD CELL COUNT, UNSPECIFIED SNOMED Code(s): 804168221 (2) Ileus Current Visit: Yes Status: Acute Code(s): K56.7 - ILEUS, UNSPECIFIED SNOMED Code(s): 563572953 (3) MRSA (methicillin resistant staph aureus) culture positive Current Visit: Yes Status: Acute Code(s): Z22.322 - CARRIER OR SUSPECTED CARRIER OF METHICILLIN RESIS STAPH SNOMED Code(s): 748773664 Plan: 1patient presented hospital with sepsis in this patient who did have an elevated white count tachycardia source likely abdominal pain this patient did have predominantly abdominal symptoms with abdominal pain and vomiting CT has been suggestive of ileus/obstruction and will likely need to cover for the enteric gram-negative both aerobes and anaerobes 2-patient did have resolution of his leukocytosis, cultures from the DEBORA are growing MRSA as well as Enterococcus 3-patient is afebrile, white count is normal, patient to continue with vancomycin and Unasyn and monitor clinical course closely Dictation was produced using [employer] dictation software. please excuse any grammatical, word or spelling errors. Time with Patient: Less than 30
[2023-10-14] MEDS: VANCOMYCIN 1,000 MG in SODIUM CHLORIDE 0.9% 250 ML IVPB SCH (17:24)
[2023-10-14 17:38] LABS: Glucose,Whole Blood 116 mg/dL (70-110)
[2023-10-14] MEDS: MVI, ADULT NO.4 WITH VIT K 10 ML, TRACE (CONC-1ML/DOSE) 1 ML, SODIUM CHLORIDE 4MEQ/ML V... IV SCH (18:17)
[2023-10-14] MEDS: FAT EMULSION 20% 250 ML in EMPTY BAG 1 BAG IV SCH (18:47)
[2023-10-14 23:51] LABS: Glucose,Whole Blood 156 mg/dL (70-110)
[2023-10-15 05:44] LABS: Glucose,Whole Blood 160 mg/dL (70-110)
[2023-10-15 06:02] LABS: African American GFR (CKD) >90 (>60 ml/min/1.73 sqM); Anion Gap 4 mmol/L; Blood Urea Nitrogen 15 mg/dL (9-20); Carbon Dioxide 35 mmol/L (22-30); Chloride 103 mmol/L (98-107); Glucose 153 mg/dL (74-99); Magnesium 1.8 mg/dL (1.6-2.3); Non-African American GFR(CKD) >90 (>60 ml/min/1.73 sqM); Phosphorus 3.4 mg/dL (2.5-4.5); Potassium 3.4 mmol/L (3.5-5.1); Sodium 142 mmol/L (137-145)
[2023-10-15 11:32] LABS: Glucose,Whole Blood 145 mg/dL (70-110)
--- NOTE | 2023-10-15 14:36 | P.PN ---
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 He completed multiple days of IV antibiotics and discharged home on PO Augmentin and DEBORA drain. He presented to the emergency department on 10/09/2023 with a chief complaint of increased abdominal pain, abdominal distention and multiple episodes of bilious vomiting. Upon arrival in the emergency department, patient underwent full evaluation. Vital signs upon arrival showed BP 145/95, HR 101, RR 18, T 90 7.8F, 100% on RA. Labs were completed and revie wed CBC showed WBC count 18.5, hemoglobin 10.6, hematocrit 33.2, MCV 79, platelet 634. CMP showed sodium 134, bicarb 20, creatinine 0.48, glucose 167, albumin 2.9. Lipase 473. Lactic acid 1.4. CT abdomen and pelvis was completed revealing diffuse SB dilation with bowel containing gas, feces, and fluid suspicious for ileus versus small bowel obstruction, drainage catheter in place, and chronic pancreatitis changes. Patient reported having bowel movements despite abdominal distention and worsening pain. Patient was admitted to general surgery team and [facility] was consulted for medical management of this patient throughout hospitalization. DEBORA drain cultures positive for MRSA. Physical exam: Patient seen and fully evaluated at bedside this morning. He was resting in bed. NG remains in place to low intermittent suction. PICC line was placed yesterday and patient was started on TPN. He continues to report diffuse abdominal tenderness and distention. He denies any nausea or vomiting or any other complaints at this time. Patient reports his pain is unchanged but not increased. Vital signs reviewed and stable. General: Nontoxic, no acute distress and appears older than stated age. Thin and frail. Derm: Skin warm and dry, normal coloration for ethnicity. Head: Atraumatic, normocephalic and symmetric. Eyes: EOMs intact, no lid lag, and anicteric sclera Mouth: no lip lesions, mucus membranes moist Cardiovascular: regular rate and rhythm with normal S1S2, no murmur, positive posterior tibial pulses bilaterally, and cap refill < 2 seconds. Lungs: Respirations even, regular, and unlabored on room air. Lungs CTA bilaterally, no rhonchi, no rales, no wheezing, and no accessory muscle usage. Abdominal: Abdomen distended. Postsurgical incision midline intact and healed. Patient reports tenderness to palpation in all 4 quadrants. Abdomen slightly distended. Ext: ROM intact. No gross muscle atrophy, no edema, no contractures Neuro: Speech clear, face symmetrical and CN II-XII grossly intact with no noted focal neuro deficits Psych: Alert and oriented to person, place, time, and situation. Appropriate and pleasant affect. Assessment and Plan of Care: MRSA infection Abdominal pain, ileus versus small bowel obstruction seen on CTA History of GERD with erosive esophagitis History of gastritis Elevated lipase with history of chronic pancreatitis Severe protein calorie malnutrition with BMI of 16.9 kg/m -Continue NG tube to low intermittent suctioning -General surgery following, reviewed documentation in chart. -Symptomatic care and pain management. Zofran 4 mg IVP every 8 hours as needed for nausea and/or vomiting and Dilaudid 1 mg every 2 hours as needed for pain. -Continue gentle IV fluid hydration with 0.9% normal saline at 50 cc/h. -Protonix 40 mg IVP daily -Strict NPO while NG tube is in place and orders placed for aspiration precautions -Patient placed on glycemic protocol with [id number] glucose checks to be completed every 6 hours while NPO. -Dietitian following managing TPN and lipids. -DEBORA drain culture was positive for MRSA and group D enterococcus faecalis. -Continue Unasyn 3g IV every 8 hours (D4) and vancomycin 1000 mg every 12 hours (D4). Continue to monitor vancomycin trough and renal function closely for signs of vancomycin associated renal toxicity. -Blood cultures showing no growth to date. Hypokalemia, being replaced with TPN Hypomagnesemia, resolved. Microcytic anemia with thrombocytosis: -Stable since previous admission. Transfuse if Hg < 7 and is currently stable at 9.9. History of small bowel perforation status post emergent small bowel resection with [id number] duodenojejunostomy 09/06/2023 Data reviewed: Vital signs reviewed. Blood pressure 143/85, heart rate 76, respiratory rate 17, temp 98.2 F, and SpO2 of 98% on room air. Morning labs reviewed. BMP showing hypokalemia with potassium of 3.4 and hypercarbia with bicarb of 35. Magnesium normal findings at 1.8. CODE STATUS: FULL CODE DVT Prophylaxis: Lovenox SQ GI Prophylaxis: Protonix Anticipated discharge date: Clinical course to determine Anticipated discharge place: Clinical course to determine Patient was seen independently by Nurse Pracitioner. This document was prepared using [employer] dictation software. Please allow for errors in test architect, while rare they do occur. I reviewed the documentation as provided by the CATRINA above, who is the original author of this note. I agree with the documented assessment and plan, with the following changes: none Objective - Vital Signs Vital signs: Vital Signs Temp 98.2 F 10/15/23 07:50 Pulse 76 10/15/23 07:50 Resp 17 10/15/23 07:50 BP 143/85 10/15/23 07:50 Pulse Ox 98 10/15/23 07:50 FiO2 Intake & Output 10/14/23 10/15/23 10/15/23 18:59 06:59 18:59 Output Total 1875 1275 Balance -1875 -1275 Output: Gastric Drainage 1200 100 Urine 675 1175 Other: Voiding Method Urinal # Voids 1 - Labs CBC & Chem 7: 10/14/23 10:51 10/15/23 05:07 Labs: Abnormal Lab Results - Last 24 Hours (Table) 10/14/23 10/14/23 10/14/23 Range/Units 10:51 10:51 10:51 RBC 4.02 L (4.30-5.90) m/uL Hgb 9.9 L (13.0-17.5) gm/dL Hct 31.7 L (39.0-53.0) % MCV 78.8 L (80.0-100.0) fL MCH 24.6 L (25.0-35.0) pg RDW 16.5 H (11.5-15.5) % Plt Count 484 H (150-450) k/uL Lymphocytes # 0.9 L (1.0-4.8) k/uL Sodium 148 H (137-145) mmol/L Potassium (3.5-5.1) mmol/L Carbon Dioxide 38 H (22-30) mmol/L Creatinine 0.63 L 0.62 L (0.66-1.25) mg/dL Glucose 100 H (74-99) mg/dL POC Glucose (mg/dL) (70-110) mg/dL Calcium 8.2 L (8.4-10.2) mg/dL Ionized Calcium Shayy 4.3 L (4.5-5.3) mg/dL Albumin 3.2 L (3.5-5.0) g/dL 10/14/23 10/14/23 10/15/23 Range/Units 17:37 23:49 05:07 RBC (4.30-5.90) m/uL Hgb (13.0-17.5) gm/dL Hct (39.0-53.0) % MCV (80.0-100.0) fL MCH (25.0-35.0) pg RDW (11.5-15.5) % Plt Count (150-450) k/uL Lymphocytes # (1.0-4.8) k/uL Sodium (137-145) mmol/L Potassium 3.4 L (3.5-5.1) mmol/L Carbon Dioxide 35 H (22-30) mmol/L Creatinine 0.57 L (0.66-1.25) mg/dL Glucose 153 H (74-99) mg/dL POC Glucose (mg/dL) 116 H 156 H (70-110) mg/dL Calcium 8.0 L (8.4-10.2) mg/dL Ionized Calcium Shayy (4.5-5.3) mg/dL Albumin (3.5-5.0) g/dL 10/15/23 Range/Units 05:44 RBC (4.30-5.90) m/uL Hgb (13.0-17.5) gm/dL Hct (39.0-53.0) % MCV (80.0-100.0) fL MCH (25.0-35.0) pg RDW (11.5-15.5) % Plt Count (150-450) k/uL Lymphocytes # (1.0-4.8) k/uL Sodium (137-145) mmol/L Potassium (3.5-5.1) mmol/L Carbon Dioxide (22-30) mmol/L Creatinine (0.66-1.25) mg/dL Glucose (74-99) mg/dL POC Glucose (mg/dL) 160 H (70-110) mg/dL Calcium (8.4-10.2) mg/dL Ionized Calcium Shayy (4.5-5.3) mg/dL Albumin (3.5-5.0) g/dL Microbiology - Last 24 Hours (Table) 10/08/23 21:00 Blood Culture - Final Blood 10/08/23 21:15 Blood Culture - Final Blood
--- NOTE | 2023-10-15 15:49 | P.PN ---
Subjective Progress Note Date: 10/15/23 CHIEF COMPLAINT: Abdominal pain HISTORY OF PRESENT ILLNESS: This is a 43-year-old male with history of pe rforated proximal small bowel status post small bowel resection on 09/06/2023. Patient currently hospitalized for chronic partial bowel obstruction. Patient continues to have abdominal distention and abdominal pain. NG tube output is decreasing at 100 mL. He has been having flatus. No bowel movement. He is currently on TPN. DEBORA drain culture with MRSA and Enterococcus. Afebrile. Potassium 3.4 PHYSICAL EXAM: VITAL SIGNS: Reviewed GENERAL: Well-developed in no acute distress. HEENT: No sclera icterus. Extraocular movements grossly intact. Moist buccal mucosa. Head is atraumatic, normocephalic. Hears conversational speech. No nasal drainage. NECK: Supple without lymphadenopathy. CHEST: Non-labored respirations and equal bilateral excursions. CARDIOVASCULAR: Palpable 2+ radial pulses. ABDOMEN: Distended. Diffuse tenderness. Midline incision healed clean dry and intact. MUSCULOSKELETAL: No clubbing or cyanosis. NEUROLOGIC: No focal or lateralizing signs. Cranial nerves II through XII grossly intact. PSYCH: Appropriate affect. Alert and oriented to person, place and time. SKIN: Well perfused. Good skin turgor. ASSESSMENT: 1. Chronic partial bowel obstruction 2. Recent perforated proximal small bowel status post small bowel resection on September 06, 2023 3. Leukocytosis 4. Chronic pancreatitis 5. 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 Prior history of PE 7. Dehydration 8. Hypomagnesemia 9. Underweight 10. Severe protein calorie malnutrition 11. DEBORA fluid positive for MRSA and Enterococcus PLAN: -Patient scheduled for exploratory laparotomy with possible ostomy -Continue NG tube for decompression -Continue antibiotics -Continue TPN for nutrition support -Potassium replacement per pharmacy -DVT prophylaxis Lovenox Physician Manager [employer] note has been reviewed by physician. Signing provider agrees with the documented findings, assessment, and plan of care. Objective - Vital Signs Vital signs: Vital Signs Temp 98.2 F 10/15/23 07:50 Pulse 76 10/15/23 07:50 Resp 17 10/15/23 07:50 BP 143/85 10/15/23 07:50 Pulse Ox 98 10/15/23 07:50 FiO2 Intake & Output 10/14/23 10/15/23 10/15/23 18:59 06:59 18:59 Output Total 3039 3350 078 Balance -8539 -7519 -979 Output: Gastric Drainage 1200 100 Urine 67 1175 400 Other: Voiding Method Urinal # Voids 1 - Labs CBC & Chem 7: 10/14/23 10:51 10/15/23 05:07 Labs: Abnormal Lab Results - Last 24 Hours (Table) 10/14/23 10/14/23 10/15/23 Range/Units 17:37 23:49 05:07 Potassium 3.4 L (3.5-5.1) mmol/L Carbon Dioxide 35 H (22-30) mmol/L Creatinine 0.57 L (0.66-1.25) mg/dL Glucose 153 H (74-99) mg/dL POC Glucose (mg/dL) 116 H 156 H (70-110) mg/dL Calcium 8.0 L (8.4-10.2) mg/dL 10/15/23 10/15/23 Range/Units 05:44 11:31 Potassium (3.5-5.1) mmol/L Carbon Dioxide (22-30) mmol/L Creatinine (0.66-1.25) mg/dL Glucose (74-99) mg/dL POC Glucose (mg/dL) 160 H 145 H (70-110) mg/dL Calcium (8.4-10.2) mg/dL
[2023-10-15] MEDS: MVI, ADULT NO.4 WITH VIT K 10 ML, TRACE (CONC-1ML/DOSE) 1 ML, SODIUM CHLORIDE 4MEQ/ML V... IV SCH (17:35)
[2023-10-15] MEDS: POTASSIUM CHLORIDE 20 MEQ in WATER FOR INJECTION 1 100ML.BAG IVPB ONE (17:36)
[2023-10-15 18:00] LABS: Glucose,Whole Blood 126 mg/dL (70-110)
[2023-10-15] MEDS: LACTATED RINGERS 1,000 ML IV SCH (19:07)
--- NOTE | 2023-10-15 23:44 | P.PN ---
Subjective Progress Note Date: 10/15/23 Principal diagnosis: Reason for follow-up is fever/ileus/obstruction Patient is a 43-year-old -[place] male past medical history significant for right-sided jaw cancer for the patient be treated with chemoradiation therapy, patient also have a history of alcohol abuse possible acute and chronic pancreatitis patient recently did have a prolonged hospital stay for bowel obstruction and this patient who did have a perforated small bowel and status post resection on 09/06/2023 did have prolonged ileus, now presenting back to the hospital abdominal pain and vomiting has been diagnosed with ileus/obstruction. On today's evaluation that is 10/15/2023,the patient denies any fever or any chills, patient is breathing comfortably on room air, the patient denies chest pain shortness of breath and no significant cough, patient still have the NG and has been complaining of abdominal pain some relief with the pain medication no bowel movement. Patient did have a creatinine 0.57 Objective - Vital Signs Vital signs: Vital Signs Temp 98.2 F 10/15/23 07:50 Pulse 76 10/15/23 07:50 Resp 17 10/15/23 07:50 BP 143/85 10/15/23 07:50 Pulse Ox 98 10/15/23 07:50 FiO2 Intake & Output 10/14/23 10/15/23 10/15/23 18:59 06:59 18:59 Output Total 1875 1275 400 Balance -1875 -1275 -400 Output: Gastric Drainage 1200 100 Urine 675 1175 400 Other: Voiding Method Urinal # Voids 1 - Exam GENERAL DESCRIPTION: Middle-age male lying in bed in no distress RESPIRATORY SYSTEM: Unlabored breathing , decreased breath sounds at bases HEART: S1 S2 regular rate and rhythm , ABDOMEN: Soft , mild distention and tenderness EXTREMITIES: No edema feet - Labs CBC & Chem 7: 10/14/23 10:51 10/15/23 05:07 Labs: Abnormal Lab Results - Last 24 Hours (Table) 10/14/23 10/14/23 10/15/23 Range/Units 17:37 23:49 05:07 Potassium 3.4 L (3.5-5.1) mmol/L Carbon Dioxide 35 H (22-30) mmol/L Creatinine 0.57 L (0.66-1.25) mg/dL Glucose 153 H (74-99) mg/dL POC Glucose (mg/dL) 116 H 156 H (70-110) mg/dL Calcium 8.0 L (8.4-10.2) mg/dL 10/15/23 10/15/23 Range/Units 05:44 11:31 Potassium (3.5-5.1) mmol/L Carbon Dioxide (22-30) mmol/L Creatinine (0.66-1.25) mg/dL Glucose (74-99) mg/dL POC Glucose (mg/dL) 160 H 145 H (70-110) mg/dL Calcium (8.4-10.2) mg/dL Assessment and Plan (1) Leukocytosis Current Visit: Yes Status: Acute Code(s): D72.829 - ELEVATED WHITE BLOOD CELL COUNT, UNSPECIFIED SNOMED Code(s): 352764714 (2) Ileus Current Visit: Yes Status: Acute Code(s): K56.7 - ILEUS, UNSPECIFIED SNOMED Code(s): 448869835 (3) MRSA (methicillin resistant staph aureus) culture positive Current Visit: Yes Status: Acute Code(s): Z22.322 - CARRIER OR SUSPECTED CARRIER OF METHICILLIN RESIS STAPH SNOMED Code(s): 225229682 Plan: 1patient presented hospital with sepsis in this patient who did have an elevated white count tachycardia source likely abdominal pain this patient did have predominantly abdominal symptoms with abdominal pain and vomiting CT has been suggestive of ileus/obstruction and will likely need to cover for the enteric gram-negative both aerobes and anaerobes 2-patient did have resolution of his leukocytosis, cultures from the DEBORA are growing MRSA as well as Enterococcus 3-patient is afebrile, white count is normal, 4- patient to continue with vancomycin and Unasyn await surgical intervention Dictation was produced using [employer] dictation software. please excuse any grammatical, word or spelling errors. Time with Patient: Less than 30
[2023-10-16 01:50] LABS: Glucose,Whole Blood 141 mg/dL (70-110)
[2023-10-16 05:38] LABS: Glucose,Whole Blood 160 mg/dL (70-110)
[2023-10-16 07:57] LABS: African American GFR (CKD) >90 (>60 ml/min/1.73 sqM); Anion Gap 2 mmol/L; Blood Urea Nitrogen 15 mg/dL (9-20); Calcium 7.7 mg/dL (8.4-10.2); Carbon Dioxide 28 mmol/L (22-30); Chloride 105 mmol/L (98-107); Glucose 139 mg/dL (74-99); Magnesium 1.6 mg/dL (1.6-2.3); Non-African American GFR(CKD) >90 (>60 ml/min/1.73 sqM); Phosphorus 3.5 mg/dL (2.5-4.5); Potassium 3.5 mmol/L (3.5-5.1); Sodium 135 mmol/L (137-145)
--- NOTE | 2023-10-16 10:06 | P.PN ---
Subjective Progress Note Date: 10/16/23 CHIEF COMPLAINT: Abdominal pain HISTORY OF PRESENT ILLNESS: This is a 43-year-old male with history of pe rforated proximal small bowel status post small bowel resection on 09/06/2023. Patient currently being followed for severe constipation and ileus. Abdomen remains distended. Even after enemas no bowel movements or flatus. He did have 2 episodes of vomiting last night. Afebrile. WBC has normalized from 11.87- 8.31 Hgb is 8.3 platelets 482 sodium 138 potassium 4.0 creatinine 0.7 albumin 2.7 magnesium 1.7 culture results from DEBORA drain fluid pending PHYSICAL EXAM: VITAL SIGNS: Reviewed GENERAL: Well-developed in no acute distress. HEENT: No sclera icterus. Extraocular movements grossly intact. Moist buccal mucosa. Head is atraumatic, normocephalic. Hears conversational speech. No nasal drainage. NECK: Supple without lymphadenopathy. CHEST: Non-labored respirations and equal bilateral excursions. CARDIOVASCULAR: Palpable 2+ radial pulses. ABDOMEN: Distended. Diffuse tenderness. Midline incision healed clean dry and intact. DEBORA drains removed. Dressing sites clean dry and intact. MUSCULOSKELETAL: No clubbing or cyanosis. NEUROLOGIC: No focal or lateralizing signs. Cranial nerves II through XII grossly intact. PSYCH: Appropriate affect. Alert and oriented to person, place and time. SKIN: Well perfused. Good skin turgor. ASSESSMENT: 1. Abdominal pain with abdominal distention likely related to ileus and constipation 2. Recent perforated proximal small bowel status post small bowel resection on September 06, 2023 3. Leukocytosis 4. Chronic pancreatitis 5. 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 Prior history of PE 7. Dehydration 8. Hypomagnesemia 9. Underweight PLAN: -NG tube added for decompression -Keep patient n.p.o. -Barium enema scheduled for Friday to evaluate for volvulus -Continue IV fluids -Antibiotics per infectious disease -Replace magnesium Physician Scientist [employer] note has been reviewed by physician. Signing provider agrees with the documented findings, assessment, and plan of care. CHIEF COMPLAINT: Abdominal pain HISTORY OF PRESENT ILLNESS: The patient is a 43-year-old male with pre-existing history of perforated small bowel. Returns with recurrent bowel obstruction. Multiple imaging was obtained demonstrating transition point of the right lower quadrant. He is passing flatus. ROS: No fevers or chills. No new chest pain. No productive sputum PHYSICAL EXAM: VITAL SIGNS: Reviewed CONSTITUTIONAL: Well developed and in no acute distress. EYES: Conjuctivae without sclera icterus. Extraocular movements grossly intact. HEAD, EARS, NOSE, THROAT: Moist buccal mucosa. Head is atraumatic, normocephalic. Hears conversational speech. NG tube bilious. RESPIRATORY: Non-labored respirations and equal bilateral excursions. CARDIOVASCULAR: Palpable 2+ radial pulses. ABDOMEN: Distended and tight. No peritonitis. [place] intact. MUSCULOSKELETAL: No gross deformity of the lower extremities noted. No clubbing. No cyanosis. SKIN: Good skin turgor. Well perfused. NEUROLOGIC: Cranial nerves II through XII grossly intact. No focal or lateralizing signs. PSYCH: Appropriate affect. Alert and oriented to person, place and time. CLINICAL LABS: Reviewed. WBC normal. STUDIES: CT of the abdomen pelvis independently reviewed demonstrates transition point at the right lower quadrant. Transverse descending colon sigmoid colon completely collapsed. Stool within the cecum. This is my independent interpretation. Moderately distended small bowel. ASSESSMENT: 1. Small bowel obstruction 2. History of perforated small bowel 3. Severe protein malnutrition 4. Chronic constipation 5. Dehydration 6. Prior history of tracheostomy and mandibular cancer PLAN: 1. Exploratory laparotomy described with possible ostomy due to transition point at right lower quadrant for which involvement of cecum cannot be entirely excluded. 2. Patient is elevated risk due to severe protein malnutrition. TPN for 24 hours initiated 3. Care plan reviewed in detail with patient which she agreed to proceed with surgery Objective - Vital Signs Vital signs: Vital Signs Temp 98.0 F 10/16/23 07:23 Pulse 76 10/16/23 07:23 Resp 18 10/16/23 07:23 BP 136/90 10/16/23 07:23 Pulse Ox 100 10/16/23 07:23 FiO2 Intake & Output 10/15/23 10/16/23 10/16/23 18:59 06:59 18:59 Intake Total 1540 Output Total 1300 750 Balance 240 -750 Weight 46.3 kg Intake: Intake, IV Titration 1540 Amount Ampicillin-Sulbactam 3 gm 100 In Sodium Chloride 0.9% 100 ml @ 200 mls/hr IVPB Q6HR [facility] Rx#:[id number] Mvi, Adult No.4 with Vit 400 K 10 ml Trace (Conc-1Ml/ Dose) 1 ml Sodium Chloride 4Meq/ml Vial 16 meq Potassium Chloride 10 meq Magnesium Sulfate gm 1 gm Calcium Gluconate 1 gm Potassium Phosphate 15 mmol In Amino Acid 5%- D15w 1,000 ml @ 30 mls/hr IV .Q24H [facility] Rx#: [id number] Mvi, Adult No.4 with Vit 90 K 10 ml Trace (Conc-1Ml/ Dose) 1 ml Sodium Chloride 4Meq/ml Vial 16 meq Potassium Chloride 16 meq Magnesium Sulfate gm 1 gm Calcium Gluconate 1 gm Potassium Phosphate 15 mmol In Amino Acid 5%- D15w 1,000 ml @ 45 mls/hr IV .Q23H7M [facility] Rx#: [id number] Potassium Chloride 20 meq 100 In Water For Injection 1 100ml.bag @ 50 mls/hr IVPB ONCE ONE Rx#: [id number] Sodium Chloride 0.9% 1, 600 000 ml @ 50 mls/hr IV . Q20H [facility] Rx#:[id number] Vancomycin 1,000 mg In 250 Sodium Chloride 0.9% 250 ml @ 125 mls/hr IVPB Q16H [facility] Rx#:[id number] Output: Gastric Drainage 400 250 Urine 900 500 Other: Voiding Method Urinal Diaper - Labs CBC & Chem 7: 10/14/23 10:51 10/16/23 06:52 Labs: Abnormal Lab Results - Last 24 Hours (Table) 10/15/23 10/15/23 10/16/23 Range/Units 11:31 17:59 01:49 Sodium (137-145) mmol/L Creatinine (0.66-1.25) mg/dL Glucose (74-99) mg/dL POC Glucose (mg/dL) 145 H 126 H 141 H (70-110) mg/dL Calcium (8.4-10.2) mg/dL 10/16/23 10/16/23 Range/Units 05:37 06:52 Sodium 135 L (137-145) mmol/L Creatinine 0.49 L (0.66-1.25) mg/dL Glucose 139 H (74-99) mg/dL POC Glucose (mg/dL) 160 H (70-110) mg/dL Calcium 7.7 L (8.4-10.2) mg/dL
[2023-10-16 11:14] LABS: Glucose,Whole Blood 134 mg/dL (70-110)
[2023-10-16] MEDS: LACTATED RINGERS 1,000 ML IV ONE ×4 (11:16→14:06)
[2023-10-16 11:17] LABS: HCT 28.9 % (39.6-50.0); MCH 23.9 pg (27.0-32.0); MCHC 31.1 g/dL (32.0-37.0); MCV 76.7 FL (80.0-97.0); Mean Platelet Volume 9.1 FL (9.5-12.2); NRBC Per 100 WBC 0 X 10*3/uL (0.00-0.01); Platelet Count 387 X 10*3/uL (140-440); RBC 3.77 X 10*6/uL (4.40-5.60); RDW 17.2 % (11.5-14.5); WBC 6.87 X 10*3/uL (4.50-10.00)
[2023-10-16] MEDS ORDERED: NEOSTIGMINE 1 MG/ML 10 ML VIAL ONE (11:47)
[2023-10-16] MEDS ORDERED: ROCURONIUM 10 MG/ML (5 ML VIAL) IV ONE (11:47)
[2023-10-16] MEDS ORDERED: PROPOFOL 10 MG/ML 20 ML VIAL IV ONE (11:47)
[2023-10-16] MEDS ORDERED: fentaNYL (PF) 50 MCG/ML 2 ML AMP ONE (11:47)
[2023-10-16] MEDS ORDERED: ALBUMIN HUMAN 5% (25gm) 500 ML VIAL IVPB ONE (11:47)
[2023-10-16] MEDS ORDERED: MIDAZOLAM 2 MG/2 ML VIAL ONE (11:47)
[2023-10-16] MEDS ORDERED: GLYCOPYRROLATE 0.2 MG/ML 2 ML VIAL ONE (11:47)
[2023-10-16] MEDS ORDERED: HYDROmorphone (PF) 1 MG/ML ONE (11:47)
[2023-10-16] MEDS ORDERED: ESMOLOL 100 MG/10 ML VIAL ONE (11:47)
[2023-10-16] MEDS ORDERED: ceFAZolin 1 GM/50 ML BAG (PMX) ONE (11:47)
[2023-10-16] MEDS ORDERED: LIDOCAINE 1% INJ 10MG/ML (20 ML MDV) ONE (11:47)
[2023-10-16] MEDS ORDERED: PHENYLEPHRINE-0.9% NACL SYG 1,000 MCG/10 ML SYRINGE ONE (11:47)
[2023-10-16] MEDS ORDERED: SUCCINYLCHOLINE CHLORIDE 200 MG/10 ML VIAL IV ONE (11:47)
--- NOTE | 2023-10-16 12:12 | P.HPADDEND ---
H&P Addendum H&P Addendum Date: 10/16/23 Patient had additional questions regarding surgery. Questions addressed including transition point along the right lower quadrant involving potential small bowel including large bowel involvement. Possible ostomy creation due to patient's baseline malnourished status and high risk of anastomotic leak. Will proceed with exploratory laparotomy including lysis of adhesions. Risk of bowel resection was addressed as well.
[2023-10-16] MEDS: SODIUM CHLORIDE 0.9% 100 ML with ceFAZolin 1,000 MG IV ONE (12:20)
[2023-10-16] MEDS ORDERED: NALOXONE 0.4 MG/ML 1 ML VIAL IV PRN (15:25)
[2023-10-16] MEDS: HYDROmorphone 0.5 MG/0.5 ML SYRINGE IVP PRN (15:27)
--- NOTE | 2023-10-16 15:54 | P.OP ---
Date of Procedure: 10/16/23 Description of Procedure: SURGEON: VANDANA DIAZ MD PREOPERATIVE DIAGNOSIS: 1. Recurrent small bowel obstruction 2. History of mandibular cancer status post chemoradiation 3. Severe protein malnutrition 4. Underweight BMI 16.5 5. Recent history of small bowel perforation 6. History of alcohol abuse disorder 7. MRSA infection 8. History of pulmonary embolism POSTOPERATIVE DIAGNOSIS: 1. Recurrent small bowel obstruction 2. History of mandibular cancer status post chemoradiation 3. Severe protein malnutrition 4. Underweight BMI 16.5 5. Recent history of small bowel perforation 6. History of alcohol abuse disorder 7. MRSA infection 8. History of pulmonary embolism 9. Bowel obstruction due to adhesive band disease/peritoneal adhesions 10. Retroperitoneal mass, 4 x 1 cm, left side OPERATION: 1. Open exploratory laparotomy with lysis of adhesions over 2 hours 2. Excision of small bowel tumor x 3 3. Closure of decompressive enterostomy 4. Drainage of abdominal ascites 2 L 5. Application of incisional wound VAC system, PREVENA 20 cm 6. Partial omentectomy ANESTHESIA: General ESTIMATED BLOOD LOSS: 75 cc. SPECIMENS REMOVED: 1. Decompressive enterostomy 2. Small bowel tumor 3. Tumor of jejunum 4. Omentum CONDITION: Stable DISPOSITION: Floor COMPLICATIONS: None. OPERATIVE FINDINGS: 1. Moderately distended small bowel over 5 to 6 cm in size requiring decompressive enterostomy, over 2 L decompressed, performed at distal jejunum 2. Moderate adhesive band disease involving the right lower quadrant with extensive lysis of adhesions performed including congenital band involving ileocecal valve lysed 3. Multiple brown small bowel tumors along the mesentery 2 to 3 cm in size creating functional bowel obstruction and adhesion resected using stapler 4. Proximal jejunum with functional bowel obstruction from adhesive band to descending colon involving small bowel tumor/necrotic lymph node divided and lysed 5. Retroperitoneal mass 4 x 1 cm of similar appearance at left retroperitoneum identified and released from small bowel causing functional bowel obstruction 6. No recurrent perforation identified INDICATIONS: The patient is a 43-year-old male with a complicated surgical history including chemoradiation for mandibular cancer. He reports at least 2 prior episodes of bowel obstruction in the past 6 months with initial treated at outside facility in [facility]. Over 1 month ago, he presented with bowel obstruction and subsequent small bowel perforation. He then returned with recurrent abdominal pain with bowel obstruction. Due to severe protein malnutrition, PICC line and nutritional supplement was started. Surgical intervention with open exploratory laparotomy with lysis of adhesions and possible bowel resection and possible ostomy was reviewed in detail. Benefits and risks of the procedures were discussed. Informed consent was obtained. DESCRIPTION: The patient was brought to the operating room with previously placed nasogastric tube. After general induction Sandoval catheter was placed. The abdomen was then prepped and draped in standard sterile fashion using chlorhexidine. Ioban draping was also placed. Prior to incision, a timeout protocol was confirmed with surgical team regarding patient's name including procedures to be performed. Preoperative medications were confirmed. The patient was on scheduled IV antibiotics with additional 1 g Ancef given. Attention was brought to the abdomen whereby a healed midline incision was encountered. Next, a #10 blade was used to enter along the epigastrium and extended down to the pubis. Carefully the abdomen was entered using electro- Bovie cautery. Carefully abdomen was entered superior to this defect and using blunt dissection. Bleeding was controlled with cautery. Multiple family adhesions were identified while entering the abdomen and lysed using electro-Bovie cautery. The small bowel was moderately dilated 5 to 6 cm. The small bowel was rotated out of the abdomen to address the dilation. At the distal jejunum, 3-0 silk pursestring was placed. Electro-Bovie cautery was used and suction device was placed with decompression of 2 L enteric content. The decompressive enterostomy was closed using Ethicon powered stapler 60 mm white load. Moderate adhesions were identified involving the right lower quadrant consistent with his small bowel follow-through and CT scan. 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 The small bowel wall was thick proximal to the distal ileum consistent with chronic bowel obstruction. Multiple tethering points were identified contributing to functional bowel obstruction including omentum. Partial omentectomy was performed using LigaSure. At the proximal ileum, mesenteric small bowel nodule 2 x 1 cm was found creating a tethering point and resected using 60 mm white staple load after dissection. An additional mesente pema small bowel tumor was found at the descending colon creating a bridge to the mid jejunum. The bridge was resected using a 60 mm white staple load and also sent for pathology. An additional retroperitoneal tethering point was found involving the proximal jejunum where a retroperitoneal mass of similar consistency 4 cm in length 1 cm and with was creating other functional bowel obstruction. The tumor was dissected free from the small bowel and resected using 60 mm white staple load. Hemostasis was excellent. Due to the incorporation at the retroperitoneum, complete resection of the tumor was limited. The small bowel was milked of air and enteric content from the ligament of Treitz distally to the ileocecal valve with complete decompression of the small bowel. Hemostasis was excellent. The abdomen was dry without contamination. The abdomen was closed using double-stranded #1 PDS. Due to the very limited subcutaneous tissue, 3-0 Vicryl was used to bury suture of the PDS. The skin was cleansed using hydrogen peroxide. Skin laurence were applied. An incisional wound VAC system was placed along the midline, 20 cm, PREVENA. Residual suture 3-0 nylon of the bilateral upper abdomen from his prior DEBORA drains were identified and also removed. Silver surgical dressing OPTIFOAM was placed over the DEBORA drain sites. At the end of the case, needle sponge and instrument count were verified correct by the surgical assistant. The patient was transferred to the postanesthesia care unit in stable condition.
[2023-10-16 16:36] LABS: Glucose,Whole Blood 106 mg/dL (70-110)
[2023-10-16] MEDS: MAGNESIUM SULFATE-D5W PMX 1 GM in DEXTROSE/WATER 1 100ML.BAG IVPB SCH (17:29)
[2023-10-16] MEDS: DEXAMETHASONE SOD PHOSPHATE 4 MG/ML 1 ML VIAL IV ONE (17:59)
[2023-10-16] MEDS: SCOPOLAMINE 1 MG/72 HR PATCH TRANSDERM ONE (18:00)
--- NOTE | 2023-10-16 18:56 | P.PN ---
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 He completed multiple days of IV antibiotics and discharged home on PO Augmentin and DEBORA drain. He presented to the emergency department on 10/09/2023 with a chief complaint of increased abdominal pain, abdominal distention and multiple episodes of bilious vomiting. Upon arrival in the emergency department, patient underwent full evaluation. Vital signs upon arrival showed BP 145/95, HR 101, RR 18, T 90 7.8F, 100% on RA. Labs were completed and revie wed CBC showed WBC count 18.5, hemoglobin 10.6, hematocrit 33.2, MCV 79, platelet 634. CMP showed sodium 134, bicarb 20, creatinine 0.48, glucose 167, albumin 2.9. Lipase 473. Lactic acid 1.4. CT abdomen and pelvis was completed revealing diffuse SB dilation with bowel containing gas, feces, and fluid suspicious for ileus versus small bowel obstruction, drainage catheter in place, and chronic pancreatitis changes. Patient reported having bowel movements despite abdominal distention and worsening pain. Patient was admitted to general surgery team and [facility] was consulted for medical management of this patient throughout hospitalization. DEBORA drain cultures positive for MRSA. Physical exam: Patient seen and fully evaluated at bedside this morning. He was resting in bed. NG remains in place to low intermittent suction. PICC line was placed yesterday and patient was started on TPN. He continues to report diffuse abdominal tenderness and distention. He denies any nausea or vomiting or any other complaints at this time. Patient reports his pain is unchanged but not increased. Vital signs reviewed and stable. General: Nontoxic, no acute distress and appears older than stated age. Thin and frail. Derm: Skin warm and dry, normal coloration for ethnicity. Head: Atraumatic, normocephalic and symmetric. Eyes: EOMs intact, no lid lag, and anicteric sclera Mouth: no lip lesions, mucus membranes moist Cardiovascular: regular rate and rhythm with normal S1S2, no murmur, positive posterior tibial pulses bilaterally, and cap refill < 2 seconds. Lungs: Respirations even, regular, and unlabored on room air. Lungs CTA bilaterally, no rhonchi, no rales, no wheezing, and no accessory muscle usage. Abdominal: Abdomen distended. Postsurgical incision midline intact and healed. Patient reports tenderness to palpation in all 4 quadrants. Abdomen slightly distended. Ext: ROM intact. No gross muscle atrophy, no edema, no contractures Neuro: Speech clear, face symmetrical and CN II-XII grossly intact with no noted focal neuro deficits Psych: Alert and oriented to person, place, time, and situation. Appropriate and pleasant affect. Assessment and Plan of Care: MRSA infection Abdominal pain, ileus versus small bowel obstruction seen on CTA History of GERD with erosive esophagitis History of gastritis Elevated lipase with history of chronic pancreatitis Severe protein calorie malnutrition with BMI of 16.9 kg/m -Continue NG tube to low intermittent suctioning -General surgery following, planning to take patient for open exploratory laparotomy later today.. -Symptomatic care and pain management. Zofran 4 mg IVP every 8 hours as needed for nausea and/or vomiting and Dilaudid 1 mg every 2 hours as needed for pain. -Protonix 40 mg IVP daily -Strict NPO while NG tube is in place and orders placed for aspiration precautions -Continue glycemic protocol with unytx-db-bztd glucose checks to be completed every 6 hours while NPO. -Dietitian following managing TPN and lipids. -DEBORA drain culture was positive for MRSA and group D enterococcus faecalis. -Continue Unasyn 3g IV every 8 hours (D4) and vancomycin 1000 mg every 12 hours (D4). Continue to monitor vancomycin trough and renal function closely for signs of vancomycin associated renal toxicity. -Blood cultures showing no growth to date. Hypokalemia, being replaced with TPN Hypomagnesemia, resolved. Microcytic anemia with thrombocytosis: -Stable since previous admission. Transfuse if Hg < 7 and is currently stable at 9.0 and thrombocytosis has resolved with platelet count of 387. History of small bowel perforation status post emergent small bowel resection with [id number] duodenojejunostomy 09/06/2023 Data reviewed: Vital signs reviewed. Blood pressure 136/90, heart rate 76, respiratory rate 18, temp 98.0 F, SpO2 100% on room air. Morning labs reviewed. CBC showing stable microcytic hypochromic anemia with hemoglobin of 9.0 and resolution of thrombocytosis with platelet count of 387. BMP hyponatremia regarding the 135, potassium 3.5, renal function unremarkable. Magnesium 1.6 phosphorus 3.5. CODE STATUS: FULL CODE DVT Prophylaxis: Lovenox SQ GI Prophylaxis: Protonix Anticipated discharge date: Clinical course to determine Anticipated discharge place: Clinical course to determine Patient was seen independently by Nurse Pracitioner. This document was prepared using [employer] dictation software. Please allow for errors in gastroenterology manager, while rare they do occur. I reviewed the documentation as provided by the CATRINA above, who is the original author of this note. I agree with the documented assessment and plan, with the following changes: none Objective - Vital Signs Vital signs: Vital Signs Temp 98.0 F 10/16/23 07:23 Pulse 76 10/16/23 07:23 Resp 18 10/16/23 07:23 BP 136/90 10/16/23 07:23 Pulse Ox 100 10/16/23 07:23 FiO2 Intake & Output 10/15/23 10/16/23 10/16/23 18:59 06:59 18:59 Intake Total 1540 Output Total 1300 750 Balance 240 -750 Weight 46.3 kg Intake: Intake, IV Titration 1540 Amount Ampicillin-Sulbactam 3 gm 100 In Sodium Chloride 0.9% 100 ml @ 200 mls/hr IVPB Q6HR [facility] Rx#:[id number] Mvi, Adult No.4 with Vit 400 K 10 ml Trace (Conc-1Ml/ Dose) 1 ml Sodium Chloride 4Meq/ml Vial 16 meq Potassium Chloride 10 meq Magnesium Sulfate gm 1 gm Calcium Gluconate 1 gm Potassium Phosphate 15 mmol In Amino Acid 5%- D15w 1,000 ml @ 30 mls/hr IV .Q24H [facility] Rx#: [id number] Mvi, Adult No.4 with Vit 90 K 10 ml Trace (Conc-1Ml/ Dose) 1 ml Sodium Chloride 4Meq/ml Vial 16 meq Potassium Chloride 16 meq Magnesium Sulfate gm 1 gm Calcium Gluconate 1 gm Potassium Phosphate 15 mmol In Amino Acid 5%- D15w 1,000 ml @ 45 mls/hr IV .Q23H7M [facility] Rx#: [id number] Potassium Chloride 20 meq 100 In Water For Injection 1 100ml.bag @ 50 mls/hr IVPB ONCE ONE Rx#: [id number] Sodium Chloride 0.9% 1, 600 000 ml @ 50 mls/hr IV . Q20H COUNT INCLUDES THE [facility] Rx#:[id number] Vancomycin 1,000 mg In 250 Sodium Chloride 0.9% 250 ml @ 125 mls/hr IVPB Q16H COUNT INCLUDES THE [facility] Rx#:[id number] Output: Gastric Drainage 400 250 Urine 900 500 - Labs CBC & Chem 7: 10/16/23 06:52 10/16/23 06:52 Labs: Abnormal Lab Results - Last 24 Hours (Table) 10/15/23 10/15/23 10/16/23 Range/Units 11:31 17:59 01:49 Sodium (137-145) mmol/L Creatinine (0.66-1.25) mg/dL Glucose (74-99) mg/dL POC Glucose (mg/dL) 145 H 126 H 141 H (70-110) mg/dL Calcium (8.4-10.2) mg/dL 10/16/23 10/16/23 Range/Units 05:37 06:52 Sodium 135 L (137-145) mmol/L Creatinine 0.49 L (0.66-1.25) mg/dL Glucose 139 H (74-99) mg/dL POC Glucose (mg/dL) 160 H (70-110) mg/dL Calcium 7.7 L (8.4-10.2) mg/dL
[2023-10-16] MEDS: ENOXAPARIN 30 MG/0.3 ML SYRINGE SQ SCH (19:13)
[2023-10-16] MEDS: POTASSIUM CHLORIDE 20 MEQ in WATER FOR INJECTION 1 100ML.BAG IVPB SCH (19:52)
[2023-10-16] MEDS: ACETAMINOPHEN TAB 500 MG TAB PO SCH (19:53)
[2023-10-16] MEDS: MVI, ADULT NO.4 WITH VIT K 10 ML, TRACE (CONC-1ML/DOSE) 1 ML, POTASSIUM CHLORIDE 20 MEQ... IV SCH (20:53)
[2023-10-16 21:17] LABS: Glucose,Whole Blood 215 mg/dL (70-110)
[2023-10-16] MEDS: AMPICILLIN-SULBACTAM 3 GM in SODIUM CHLORIDE 0.9% 100 ML IVPB SCH (22:18)
[2023-10-17 05:33] LABS: Glucose,Whole Blood 178 mg/dL (70-110)
[2023-10-17] MEDS: VANCOMYCIN TROUGH DUE 1 EACH MISC MISCELLANE ONE (08:06)
[2023-10-17 08:18] LABS: Anisocytosis Slight; Basophils % (A) 0 %; Eosinophils % (A) 0 %; HCT 33.1 % (39.0-53.0); HGB 9.9 gm/dL (13.0-17.5); Hypochromasia Marked; Lymphocytes % (A) 7 %; MCH 23.8 pg (25.0-35.0); MCHC 29.9 g/dL (31.0-37.0); MCV 79.6 fL (80.0-100.0); Mean Platelet Volume 7.5; Microcytosis Slight; Monocytes # (A) 0.4 k/uL (0-1.0); Monocytes % (A) 3 %; Neutrophils # (A) 11.2 k/uL (1.3-7.7); Neutrophils % (A) 88 %; Platelet Count 523 k/uL (150-450); RBC 4.16 m/uL (4.30-5.90); WBC 12.8 k/uL (3.8-10.6)
[2023-10-17 08:26] LABS: ALT 9 U/L (4-49); AST 17 U/L (17-59); African American GFR (CKD) >90 (>60 ml/min/1.73 sqM); Albumin 2.2 g/dL (3.5-5.0); Albumin/Globulin Ratio 0.9; Alkaline Phosphatase 74 U/L (38-126); Anion Gap 3 mmol/L; Blood Urea Nitrogen 21 mg/dL (9-20); Calcium 7.4 mg/dL (8.4-10.2); Carbon Dioxide 23 mmol/L (22-30); Chloride 107 mmol/L (98-107); Globulin 2.4 g/dL; Glucose 169 mg/dL (74-99); Magnesium 1.9 mg/dL (1.6-2.3); Non-African American GFR(CKD) >90 (>60 ml/min/1.73 sqM); Phosphorus 3.7 mg/dL (2.5-4.5); Sodium 133 mmol/L (137-145); Total Bilirubin 0.4 mg/dL (0.2-1.3); Total Protein 4.6 g/dL (6.3-8.2)
[2023-10-17 11:33] LABS: Glucose,Whole Blood 194 mg/dL (70-110)
--- NOTE | 2023-10-17 14:51 | P.PN ---
Subjective Progress Note Date: 10/17/23 CHIEF COMPLAINT: Abdominal pain HISTORY OF PRESENT ILLNESS: The patient is a 43-year-old male status post exploratory laparotomy for bowel resection, 10/16/2023. He is postop day 1. He reports appropriate incisional pain. He denies any nausea or vomiting. Nasogastric tube was discontinued during surgery. He denies any bowel movements despite review of medical record. He is tolerating clear liquid diet. He is on TPN. Reports pain is worse with movement as to be expected. ROS: No fevers or chills. No new chest pain. No productive sputum PHYSICAL EXAM: VITAL SIGNS: Reviewed CONSTITUTIONAL: Well developed and in no acute distress. EYES: Conjuctivae without sclera icterus. Extraocular movements grossly intact. HEAD, EARS, NOSE, THROAT: Moist buccal mucosa. Head is atraumatic, nor mocephalic. Hears conversational speech. RESPIRATORY: Non-labored respirations and equal bilateral excursions. CARDIOVASCULAR: Palpable 2+ radial pulses. ABDOMEN: Incisional wound VAC intact. No infection. Abdominal binder present MUSCULOSKELETAL: No gross deformity of the lower extremities noted. No clubbing. No cyanosis. SKIN: Good skin turgor. Well perfused. NEUROLOGIC: Cranial nerves II through XII grossly intact. No focal or lateralizing signs. PSYCH: Appropriate affect. Alert and oriented to person, place and time. CLINICAL LABS: Reviewed. Platelets up 387 to 523 thrombocytosis. WBC up, post reactive response. Hemoglobin stable 9.9, anemia ASSESSMENT: 1. Small bowel obstruction 2. History of perforated small bowel 3. Severe protein malnutrition 4. Chronic constipation 5. Dehydration 6. Prior history of tracheostomy and mandibular cancer 7. History of marijuana use. PLAN: 1. Adjustment of pain medication especially due to pre-existing history of ma rijuana use 2. Pathology pending due to resection of small bowel tumors 3. Continue TPN 4. Lovenox decreased to 30 mg daily due to underweight Objective - Vital Signs Vital signs: Vital Signs Temp 97.6 F 10/17/23 13:15 Pulse 101 H 10/17/23 13:15 Resp 18 10/17/23 13:15 BP 149/95 10/17/23 13:15 Pulse Ox 98 10/17/23 13:15 FiO2 Intake & Output 03/21/24 03/22/24 03/22/24 18:59 06:59 18:59 Intake Total 3460 Output Total 75 200 Balance 3385 -200 Weight 46.3 kg Intake: IV 2200 Intake, IV Titration 1260 Amount Ampicillin-Sulbactam 3 gm 100 In Sodium Chloride 0.9% 100 ml @ 200 mls/hr IVPB Q6HR [facility] Rx#:[id number] Magnesium Sulfate-D5w Pmx 200 1 gm In Dextrose/Water 1 100ml.bag @ 100 mls/hr IVPB Q1H [facility] Rx#: [id number] Mvi, Adult No.4 with Vit 360 K 10 ml Trace (Conc-1Ml/ Dose) 1 ml Potassium Chloride 20 meq In Amino Acid 5%-D15w+Lytes*E* 1, 000 ml @ 45 mls/hr IV . [id number] [facility] Rx#:[id number] Sodium Chloride 0.9% 1, 600 000 ml @ 50 mls/hr IV . Q20H [facility] Rx#:[id number] Output: Urine 200 Estimated Blood Loss 75 Other: Voiding Method Urinal Urinal Indwelling Catheter Diaper Diaper # Bowel Movements 1 - Labs CBC & Chem 7: 10/17/23 07:20 10/17/23 07:20 Labs: Abnormal Lab Results - Last 24 Hours (Table) 10/16/23 10/17/23 10/17/23 Range/Units 21:16 05:31 07:20 WBC (3.8-10.6) k/uL RBC (4.30-5.90) m/uL Hgb (13.0-17.5) gm/dL Hct (39.0-53.0) % MCV (80.0-100.0) fL MCH (25.0-35.0) pg MCHC (31.0-37.0) g/dL RDW (11.5-15.5) % Plt Count (150-450) k/uL Neutrophils # (1.3-7.7) k/uL Sodium 133 L (137-145) mmol/L BUN 21 H (9-20) mg/dL Creatinine 0.54 L (0.66-1.25) mg/dL Glucose 169 H (74-99) mg/dL POC Glucose (mg/dL) 215 H 178 H (70-110) mg/dL Calcium 7.4 L (8.4-10.2) mg/dL Total Protein 4.6 L (6.3-8.2) g/dL Albumin 2.2 L (3.5-5.0) g/dL 10/17/23 10/17/23 Range/Units 07:20 11:32 WBC 12.8 H (3.8-10.6) k/uL RBC 4.16 L (4.30-5.90) m/uL Hgb 9.9 L (13.0-17.5) gm/dL Hct 33.1 L (39.0-53.0) % MCV 79.6 L (80.0-100.0) fL MCH 23.8 L (25.0-35.0) pg MCHC 29.9 L (31.0-37.0) g/dL RDW 17.0 H (11.5-15.5) % Plt Count 523 H (150-450) k/uL Neutrophils # 11.2 H (1.3-7.7) k/uL Sodium (137-145) mmol/L BUN (9-20) mg/dL Creatinine (0.66-1.25) mg/dL Glucose (74-99) mg/dL POC Glucose (mg/dL) 194 H (70-110) mg/dL Calcium (8.4-10.2) mg/dL Total Protein (6.3-8.2) g/dL Albumin (3.5-5.0) g/dL
[2023-10-17] MEDS ORDERED: NALOXONE 0.4 MG/ML 1 ML VIAL IV PRN (15:02)
--- NOTE | 2023-10-17 15:24 | P.PN ---
Subjective Progress Note Date: 10/16/23 Principal diagnosis: Reason for follow-up is fever/ileus/obstruction Patient is a 43-year-old -Irish male past medical history significant for right-sided jaw cancer for the patient be treated with chemoradiation therapy, patient also have a history of alcohol abuse possible acute and chronic pancreatitis patient recently did have a prolonged hospital stay for bowel obstruction and this patient who did have a perforated small bowel and status post resection on 09/06/2023 did have prolonged ileus, now presenting back to the hospital abdominal pain and vomiting has been diagnosed with ileus/obstruction.Patient is status post open expiratory laparotomy with lysis o f adhesion excision of small bowel tumor x 3 closure of decompressive enterostomy and drainage of abdominal ascites completed on 10/16/2023. On today's evaluation that is 10/16/2023,the patient remains to be afebrile, patient is on 3 L nasal cannula supplemental oxygen and seen in the recovery recovering from his anesthesia complaining of some abdominal pain no nausea no vomiting chest pain shortness of breath or cough. Patient white count is 6.87, creatinine 0.49 Objective - Vital Signs Vital signs: Vital Signs Temp 97 F L 10/16/23 14:55 Pulse 93 10/16/23 15:10 Resp 14 10/16/23 15:10 BP 134/97 10/16/23 15:10 Pulse Ox 100 10/16/23 15:10 FiO2 Intake & Output 10/15/23 10/16/23 10/16/23 18:59 06:59 18:59 Intake Total 1540 2100 Output Total 1300 750 75 Balance 240 -750 2024 Weight 46.3 kg Intake: IV 2100 Intake, IV Titration 1540 Amount Ampicillin-Sulbactam 3 gm 100 In Sodium Chloride 0.9% 100 ml @ 200 mls/hr IVPB Q6HR [facility] Rx#:[id number] Mvi, Adult No.4 with Vit 400 K 10 ml Trace (Conc-1Ml/ Dose) 1 ml Sodium Chloride 4Meq/ml Vial 16 meq Potassium Chloride 10 meq Magnesium Sulfate gm 1 gm Calcium Gluconate 1 gm Potassium Phosphate 15 mmol In Amino Acid 5%- D15w 1,000 ml @ 30 mls/hr IV .Q24H [facility] Rx#: [id number] Mvi, Adult No.4 with Vit 90 K 10 ml Trace (Conc-1Ml/ Dose) 1 ml Sodium Chloride 4Meq/ml Vial 16 meq Potassium Chloride 16 meq Magnesium Sulfate gm 1 gm Calcium Gluconate 1 gm Potassium Phosphate 15 mmol In Amino Acid 5%- D15w 1,000 ml @ 45 mls/hr IV .Q23H7M [facility] Rx#: [id number] Potassium Chloride 20 meq 100 In Water For Injection 1 100ml.bag @ 50 mls/hr IVPB ONCE ONE Rx#: [id number] Sodium Chloride 0.9% 1, 600 000 ml @ 50 mls/hr IV . Q20H [facility] Rx#:[id number] Vancomycin 1,000 mg In 250 Sodium Chloride 0.9% 250 ml @ 125 mls/hr IVPB Q16H [facility] Rx#:[id number] Output: Gastric Drainage 400 250 Urine 900 500 Estimated Blood Loss 75 Other: Voiding Method Urinal Diaper - Exam GENERAL DESCRIPTION: Middle-age male lying in bed in no distress RESPIRATORY SYSTEM: Unlabored breathing , decreased breath sounds at bases HEART: S1 S2 regular rate and rhythm , ABDOMEN: Soft , mild distention and tenderness EXTREMITIES: No edema feet - Labs CBC & Chem 7: 10/17/23 07:20 10/17/23 07:20 Labs: Abnormal Lab Results - Last 24 Hours (Table) 10/15/23 10/16/23 10/16/23 Range/Units 17:59 01:49 05:37 RBC (4.40-5.60) X 10*6/uL Hgb (13.0-17.0) g/dL Hct (39.6-50.0) % MCV (80.0-97.0) FL MCH (27.0-32.0) pg MCHC (32.0-37.0) g/dL RDW (11.5-14.5) % MPV (9.5-12.2) FL Sodium (137-145) mmol/L Creatinine (0.66-1.25) mg/dL Glucose (74-99) mg/dL POC Glucose (mg/dL) 126 H 141 H 160 H (70-110) mg/dL Calcium (8.4-10.2) mg/dL 10/16/23 10/16/23 10/16/23 Range/Units 06:52 06:52 11:12 RBC 3.77 L (4.40-5.60) X 10*6/uL Hgb 9.0 L (13.0-17.0) g/dL Hct 28.9 L (39.6-50.0) % MCV 76.7 L (80.0-97.0) FL MCH 23.9 L (27.0-32.0) pg MCHC 31.1 L (32.0-37.0) g/dL RDW 17.2 H (11.5-14.5) % MPV 9.1 L (9.5-12.2) FL Sodium 135 L (137-145) mmol/L Creatinine 0.49 L (0.66-1.25) mg/dL Glucose 139 H (74-99) mg/dL POC Glucose (mg/dL) 134 H (70-110) mg/dL Calcium 7.7 L (8.4-10.2) mg/dL Assessment and Plan (1) Leukocytosis Current Visit: Yes Status: Acute Code(s): D72.829 - ELEVATED WHITE BLOOD CELL COUNT, UNSPECIFIED SNOMED Code(s): 817655887 (2) Ileus Current Visit: Yes Status: Acute Code(s): K56.7 - ILEUS, UNSPECIFIED SNOMED Code(s): 304445282 (3) MRSA (methicillin resistant staph aureus) culture positive Current Visit: Yes Status: Acute Code(s): Z22.322 - CARRIER OR SUSPECTED CARRIER OF METHICILLIN RESIS STAPH SNOMED Code(s): 271764042 Plan: 1patient presented hospital with sepsis in this patient who did have an elevated white count tachycardia source likely abdominal pain this patient did have predominantly abdominal symptoms with abdominal pain and vomiting CT has been suggestive of ileus/obstruction and will likely need to cover for the enteric gram-negative both aerobes and anaerobes 2-patient did have resolution of his leukocytosis, cultures from the [facility] are growing MRSA as well as Enterococcus 3-patient is afebrile, white count is normal, patient is status post extensive abdominal surgery did not mention any perforation or abscess no cultures 4- patient to continue with vancomycin and Unasyn and will monitor clinical course closely Dictation was produced using [employer] dictation software. please excuse any grammatical, word or spelling errors. Time with Patient: Less than 30
--- NOTE | 2023-10-17 15:25 | P.PN ---
Subjective Progress Note Date: 10/17/23 Principal diagnosis: Reason for follow-up is fever/ileus/obstruction Patient is a 43-year-old -Indian male past medical history significant for right-sided jaw cancer for the patient be treated with chemoradiation therapy, patient also have a history of alcohol abuse possible acute and chronic pancreatitis patient recently did have a prolonged hospital stay for bowel obstruction and this patient who did have a perforated small bowel and status post resection on 09/06/2023 did have prolonged ileus, now presenting back to the hospital abdominal pain and vomiting has been diagnosed with ileus/obstruction.Patient is status post open expiratory laparotomy with lysis o f adhesion excision of small bowel tumor x 3 closure of decompressive enterostomy and drainage of abdominal ascites completed on 10/16/2023. On today's evaluation that is 10/17/2023,the patient continues to be afebrile, patient is on 3 L nasal cannula oxygen and denies any shortness of breath no chest pain or cough.Patient denies having any nausea or vomiting, still complains of some abdominal pain did not mention any bowel movement Patient white count slightly up to 12.8 today, creatinine 0.54 Objective - Vital Signs Vital signs: Vital Signs Temp 98.5 F 10/17/23 06:47 Pulse 114 H 10/17/23 06:47 Resp 17 10/17/23 06:47 BP 132/94 10/17/23 06:47 Pulse Ox 100 10/17/23 06:47 FiO2 Intake & Output 10/16/23 10/17/23 10/17/23 18:59 06:59 18:59 Intake Total 3460 Output Total 75 200 Balance 3385 -200 Weight 46.3 kg Intake: IV 2200 Intake, IV Titration 1260 Amount Ampicillin-Sulbactam 3 gm 100 In Sodium Chloride 0.9% 100 ml @ 200 mls/hr IVPB Q6HR [facility] Rx#:[id number] Magnesium Sulfate-D5w Pmx 200 1 gm In Dextrose/Water 1 100ml.bag @ 100 mls/hr IVPB Q1H [facility] Rx#: [id number] Mvi, Adult No.4 with Vit 360 K 10 ml Trace (Conc-1Ml/ Dose) 1 ml Potassium Chloride 20 meq In Amino Acid 5%-D15w+Lytes*E* 1, 000 ml @ 45 mls/hr IV . [id number] [facility] Rx#:[id number] Sodium Chloride 0.9% 1, 600 000 ml @ 50 mls/hr IV . Q20H [facility] Rx#:[id number] Output: Urine 200 Estimated Blood Loss 75 Other: Voiding Method Urinal Urinal Indwelling Catheter Diaper Diaper # Bowel Movements 1 - Exam GENERAL DESCRIPTION: Middle-age male lying in bed in no distress RESPIRATORY SYSTEM: Unlabored breathing , decreased breath sounds at bases HEART: S1 S2 regular rate and rhythm , ABDOMEN: Soft , mild distention and tenderness EXTREMITIES: No edema feet - Labs CBC & Chem 7: 10/17/23 07:20 10/17/23 07:20 Labs: Abnormal Lab Results - Last 24 Hours (Table) 10/16/23 10/17/23 10/17/23 Range/Units 21:16 05:31 07:20 WBC (3.8-10.6) k/uL RBC (4.30-5.90) m/uL Hgb (13.0-17.5) gm/dL Hct (39.0-53.0) % MCV (80.0-100.0) fL MCH (25.0-35.0) pg MCHC (31.0-37.0) g/dL RDW (11.5-15.5) % Plt Count (150-450) k/uL Neutrophils # (1.3-7.7) k/uL Sodium 133 L (137-145) mmol/L BUN 21 H (9-20) mg/dL Creatinine 0.54 L (0.66-1.25) mg/dL Glucose 169 H (74-99) mg/dL POC Glucose (mg/dL) 215 H 178 H (70-110) mg/dL Calcium 7.4 L (8.4-10.2) mg/dL Total Protein 4.6 L (6.3-8.2) g/dL Albumin 2.2 L (3.5-5.0) g/dL 10/17/23 10/17/23 Range/Units 07:20 11:32 WBC 12.8 H (3.8-10.6) k/uL RBC 4.16 L (4.30-5.90) m/uL Hgb 9.9 L (13.0-17.5) gm/dL Hct 33.1 L (39.0-53.0) % MCV 79.6 L (80.0-100.0) fL MCH 23.8 L (25.0-35.0) pg MCHC 29.9 L (31.0-37.0) g/dL RDW 17.0 H (11.5-15.5) % Plt Count 523 H (150-450) k/uL Neutrophils # 11.2 H (1.3-7.7) k/uL Sodium (137-145) mmol/L BUN (9-20) mg/dL Creatinine (0.66-1.25) mg/dL Glucose (74-99) mg/dL POC Glucose (mg/dL) 194 H (70-110) mg/dL Calcium (8.4-10.2) mg/dL Total Protein (6.3-8.2) g/dL Albumin (3.5-5.0) g/dL Assessment and Plan (1) Leukocytosis Current Visit: Yes Status: Acute Code(s): D72.829 - ELEVATED WHITE BLOOD CELL COUNT, UNSPECIFIED SNOMED Code(s): 020192101 (2) Ileus Current Visit: Yes Status: Acute Code(s): K56.7 - ILEUS, UNSPECIFIED SNOMED Code(s): 464408781 (3) MRSA (methicillin resistant staph aureus) culture positive Current Visit: Yes Status: Acute Code(s): Z22.322 - CARRIER OR SUSPECTED CARRIER OF METHICILLIN RESIS STAPH SNOMED Code(s): 543718075 Plan: 1patient presented hospital with sepsis in this patient who did have an elevated white count tachycardia source likely abdominal pain this patient did have predominantly abdominal symptoms with abdominal pain and vomiting CT has been suggestive of ileus/obstruction and will likely need to cover for the enteric gram-negative both aerobes and anaerobes 2-patient did have resolution of his leukocytosis, cultures from the DEB[facility] are growing MRSA as well as Enterococcus 3-patient is afebrile, white count is normal, patient is status post extensive abdominal surgery did not mention any perforation or abscess no cultures 4- patient to continue with vancomycin and Unasyn, noticed to have slight worsening of his white count post surgery possible reactive and will be monitored closely Dictation was produced using [employer] dictation software. please excuse any grammatical, word or spelling errors. Time with Patient: Less than 30
--- NOTE | 2023-10-17 15:37 | P.PN ---
Subjective Progress Note Date: 10/17/23 Hospital course: Patient is a 42-year-old male with a past medical history of chronic pancreatitis, alcoholism, history of a pulmonary emboli, right-sided jaw cancer status post chemo/radiation treatment, GERD with erosive esophagitis, gastritis, and recent hospitalization from 09/04/2023 through 09/18/2023 for small bowel obstruction status post perforation resulting in emergent small bowel resection with [id number] duodenojejunostomy 09/06/2023 complicated by post operative ileus. He completed multiple days of IV antibiotics and discharged home on PO Augmentin and DEBORA drain. He presented to the emergency department on 10/09/2023 with a chief complaint of increased abdominal pain, abdominal distention and multiple episodes of bilious vomiting. Upon arrival in the emergency department, patient underwent full evaluation. Vital signs upon arrival showed BP 145/95, HR 101, RR 18, T 90 7.8F, 100% on RA. Labs were completed and revie wed CBC showed WBC count 18.5, hemoglobin 10.6, hematocrit 33.2, MCV 79, platelet 634. CMP showed sodium 134, bicarb 20, creatinine 0.48, glucose 167, albumin 2.9. Lipase 473. Lactic acid 1.4. CT abdomen and pelvis was completed revealing diffuse SB dilation with bowel containing gas, feces, and fluid suspicious for ileus versus small bowel obstruction, drainage catheter in place, and chronic pancreatitis changes. Patient reported having bowel movements despite abdominal distention and worsening pain. Patient was admitted to general surgery team and [facility] was consulted for medical management of this patient throughout hospitalization. DEBORA drain cultures positive for MRSA. Patient failed conservative management of small bowel obstruction and was taken for open laparotomy with lysis of adhesions and resection of small bowel tumor with wound VAC placement on 10/16/2023. Pathology sample was sent to lab for analysis of small bowel tumors. Physical exam: Patient seen and fully evaluated at bedside this morning. He was resting in bed. His NG tube was removed postsurgical and patient currently on clear liquid diet and appears to be tolerating well. He reports moderate postoperative pain and has been receiving Dilaudid 1 mg every 2 hours. He denies having any nausea or vomiting. He denies passing any flatus or any bowel movements. He continues to report urinating without any difficulties. Vital signs reviewed and stable. General: Nontoxic, no acute distress and appears older than stated age. Thin and frail. Derm: Skin warm and dry, normal coloration for ethnicity. Head: Atraumatic, normocephalic and symmetric. Eyes: EOMs intact, no lid lag, and anicteric sclera Mouth: no lip lesions, mucus membranes moist Cardiovascular: regular rate and rhythm with normal S1S2, no murmur, positive p osterior tibial pulses bilaterally, and cap refill < 2 seconds. Lungs: Respirations even, regular, and unlabored on room air. Lungs CTA bilaterally, no rhonchi, no rales, no wheezing, and no accessory muscle usage. Abdominal: Abdomen distended. Postsurgical incision midline with wound VAC in place. Ext: ROM intact. No gross muscle atrophy, no edema, no contractures Neuro: Speech clear, face symmetrical and CN II-XII grossly intact with no noted focal neuro deficits Psych: Alert and oriented to person, place, time, and situation. Appropriate and pleasant affect. Assessment and Plan of Care: MRSA infection Small bowel obstruction status post open laparotomy with lysis of adhesions and resection of small bowel tumor Abdominal pain secondary to above History of GERD with erosive esophagitis History of gastritis Elevated lipase with history of chronic pancreatitis Severe protein calorie malnutrition with BMI of 16.9 kg/m -General surgery following, took patient for open laparotomy with lysis of adhesions and resection of small bowel tumor with wound VAC placement on 10/16/2023 -NG tube was removed postsurgery and patient started on clear liquid diet and appears to be tolerating well. -Symptomatic care and pain management. Zofran 4 mg IVP every 8 hours as needed for nausea and/or vomiting and Dilaudid 1 mg every 2 hours as needed for pain. -Protonix 40 mg IVP daily -Continue glycemic protocol with [id number] glucose checks to be completed every 6 hours -Dietitian following managing TPN and lipids. -DEBORA drain culture was positive for MRSA and group D enterococcus faecalis. -Continue Unasyn 3g IV every 8 hours (D4) and vancomycin 1000 mg every 12 hours (D4). Continue to monitor vancomycin trough and renal function closely for signs of vancomycin associated renal toxicity. -Blood cultures showed no growth -Pathology sample was sent to lab for analysis of small bowel tumors and currently pending. Hypokalemia, resolved. Hypomagnesemia, resolved. Microcytic anemia with thrombocytosis: -Stable since previous admission. Transfuse if Hg < 7 and is currently stable at 9.9 and thrombocytosis with platelet count of 523. History of small bowel perforation status post emergent small bowel resection with tjln-tj-gryh duodenojejunostomy 09/06/2023 Data reviewed: Vital signs reviewed. Blood pressure 132/94, heart rate 114, respiratory rate 17, temp 98.5 F, and SpO2 100% on room air. Morning labs reviewed. CBC showing mild leukocytosis with WBC count of 12.8, hemoglobin of 9.9, and platelet count of 523. BMP showing mild natremia with sodium of 133 otherwise normal findings. Magnesium 1.9. Albumin remains low at 2.2. CODE STATUS: FULL CODE DVT Prophylaxis: Lovenox SQ GI Prophylaxis: Protonix Anticipated discharge date: Clinical course to determine Anticipated discharge place: Clinical course to determine Patient was seen independently by Nurse Pracitioner. This document was prepared using [employer] dictation software. Please allow for errors in electric bath attendant, while rare they do occur. I reviewed the documentation as provided by the CATRINA above, who is the original author of this note. I agree with the documented assessment and plan, with the following changes: none Objective - Vital Signs Vital signs: Vital Signs Temp 98.5 F 10/17/23 06:47 Pulse 114 H 10/17/23 06:47 Resp 17 10/17/23 06:47 BP 132/94 10/17/23 06:47 Pulse Ox 100 10/17/23 06:47 FiO2 Intake & Output 10/16/23 10/17/23 10/17/23 18:59 06:59 18:59 Intake Total 3460 Output Total 75 200 Balance 3385 -200 Weight 46.3 kg Intake: IV 2200 Intake, IV Titration 1260 Amount Ampicillin-Sulbactam 3 gm 100 In Sodium Chloride 0.9% 100 ml @ 200 mls/hr IVPB Q6HR [facility] Rx#:[id number] Magnesium Sulfate-D5w Pmx 200 1 gm In Dextrose/Water 1 100ml.bag @ 100 mls/hr IVPB Q1H [facility] Rx#: [id number] Mvi, Adult No.4 with Vit 360 K 10 ml Trace (Conc-1Ml/ Dose) 1 ml Potassium Chloride 20 meq In Amino Acid 5%-D15w+Lytes*E* 1, 000 ml @ 45 mls/hr IV . [id number] [facility] Rx#:[id number] Sodium Chloride 0.9% 1, 600 000 ml @ 50 mls/hr IV . Q20H [facility] Rx#:[id number] Output: Urine 200 Estimated Blood Loss 75 Other: Voiding Method Urinal Urinal Diaper Diaper # Bowel Movements 1 - Labs CBC & Chem 7: 10/17/23 07:20 10/17/23 07:20 Labs: Abnormal Lab Results - Last 24 Hours (Table) 10/16/23 10/16/23 10/16/23 Range/Units 06:52 11:12 21:16 RBC 3.77 L (4.40-5.60) X 10*6/uL Hgb 9.0 L (13.0-17.0) g/dL Hct 28.9 L (39.6-50.0) % MCV 76.7 L (80.0-97.0) FL MCH 23.9 L (27.0-32.0) pg MCHC 31.1 L (32.0-37.0) g/dL RDW 17.2 H (11.5-14.5) % MPV 9.1 L (9.5-12.2) FL POC Glucose (mg/dL) 134 H 215 H (70-110) mg/dL 10/17/23 Range/Units 05:31 RBC (4.40-5.60) X 10*6/uL Hgb (13.0-17.0) g/dL Hct (39.6-50.0) % MCV (80.0-97.0) FL MCH (27.0-32.0) pg MCHC (32.0-37.0) g/dL RDW (11.5-14.5) % MPV (9.5-12.2) FL POC Glucose (mg/dL) 178 H (70-110) mg/dL
[2023-10-17] MEDS: CYCLOBENZAPRINE 10 MG TAB PO SCH (15:42)
[2023-10-17] MEDS: HYDROmorphone PCA 10 MG/50 ML BAG IV SCH (15:46)
--- NOTE | 2023-10-17 15:48 | P.PN ---
Progress Note - Text Progress Note Date: 10/17/23 Incorrect charting
[2023-10-17 16:36] LABS: Glucose,Whole Blood 145 mg/dL (70-110)
[2023-10-17] MEDS: KETOROLAC 15 MG/ML 1 ML VIAL IVP SCH (17:34)
[2023-10-17 21:12] LABS: Glucose,Whole Blood 166 mg/dL (70-110)
[2023-10-18 00:38] LABS: Glucose,Whole Blood 123 mg/dL (70-110)
[2023-10-18] MEDS: SODIUM CHLORIDE 0.9% 2,000 ML IV ONE (06:37)
[2023-10-18 07:01] LABS: Glucose,Whole Blood 120 mg/dL (70-110)
[2023-10-18 07:57] LABS: ALT 7 U/L (4-49); AST 17 U/L (17-59); African American GFR (CKD) >90 (>60 ml/min/1.73 sqM); Albumin/Globulin Ratio 0.8; Alkaline Phosphatase 69 U/L (38-126); Anion Gap 2 mmol/L; Blood Urea Nitrogen 21 mg/dL (9-20); Calcium 7.4 mg/dL (8.4-10.2); Carbon Dioxide 24 mmol/L (22-30); Chloride 107 mmol/L (98-107); Globulin 2.4 g/dL; Glucose 114 mg/dL (74-99); Magnesium 1.7 mg/dL (1.6-2.3); Non-African American GFR(CKD) >90 (>60 ml/min/1.73 sqM); Phosphorus 3.4 mg/dL (2.5-4.5); Potassium 4.1 mmol/L (3.5-5.1); Sodium 133 mmol/L (137-145); Total Bilirubin 0.3 mg/dL (0.2-1.3); Total Protein 4.4 g/dL (6.3-8.2)
[2023-10-18 11:41] LABS: Glucose,Whole Blood 113 mg/dL (70-110)
--- NOTE | 2023-10-18 13:03 | P.PN ---
Subjective Progress Note Date: 10/18/23 No acute events overnight. No nausea or vomiting. No fevers or chills. No shortness of breath or chest pain. Patient is ambulatory. Patient denies any flatus but admits to a small bowel movement. Tolerating liquids without issue. Objective - Vital Signs Vital signs: Vital Signs Temp 97.6 F 10/18/23 07:00 Pulse 86 10/18/23 07:00 Resp 17 10/18/23 07:00 BP 113/80 10/18/23 07:00 Pulse Ox 100 10/18/23 07:00 FiO2 Intake & Output 10/17/23 10/18/23 10/18/23 18:59 06:59 18:59 Intake Total 2276 1000 Output Total 730 200 Balance 1546 800 Intake: Intake, IV Titration 1796 1000 Amount Ampicillin-Sulbactam 3 gm 100 200 In Sodium Chloride 0.9% 100 ml @ 200 mls/hr IVPB Q6H [facility] Rx#:[id number] Mvi, Adult No.4 with Vit 846 K 10 ml Trace (Conc-1Ml/ Dose) 1 ml Potassium Chloride 20 meq In Amino Acid 5%-D15w+Lytes*E* 1, 000 ml @ 45 mls/hr IV . [id number] [facility] Rx#:[id number] Sodium Chloride 0.9% 1, 600 550 000 ml @ 50 mls/hr IV . Q20H [facility] Rx#:[id number] Vancomycin 1,000 mg In 250 250 Sodium Chloride 0.9% 250 ml @ 125 mls/hr IVPB Q16H [facility] Rx#:[id number] Oral 480 Output: Urine 230 200 Stool 500 Other: Voiding Method Indwelling Catheter Indwelling Catheter - Exam Gen: AxO, NAD Pulm: non-labored respirations Abd: soft, mildy-tender around incisions, mildly-distended. No guard ing/rebound/rigidity Incisions: C/D/I, no erythema or drainage seen. Extrem: no edema seen - Labs CBC & Chem 7: 10/17/23 07:20 10/18/23 07:13 Labs: Abnormal Lab Results - Last 24 Hours (Table) 10/17/23 10/17/23 10/18/23 Range/Units 16:35 21:11 00:36 Sodium (137-145) mmol/L BUN (9-20) mg/dL Creatinine (0.66-1.25) mg/dL Glucose (74-99) mg/dL POC Glucose (mg/dL) 145 H 166 H 123 H (70-110) mg/dL Calcium (8.4-10.2) mg/dL Total Protein (6.3-8.2) g/dL Albumin (3.5-5.0) g/dL 10/18/23 10/18/23 10/18/23 Range/Units 06:59 07:13 11:40 Sodium 133 L (137-145) mmol/L BUN 21 H (9-20) mg/dL Creatinine 0.54 L (0.66-1.25) mg/dL Glucose 114 H (74-99) mg/dL POC Glucose (mg/dL) 120 H 113 H (70-110) mg/dL Calcium 7.4 L (8.4-10.2) mg/dL Total Protein 4.4 L (6.3-8.2) g/dL Albumin 2.0 L (3.5-5.0) g/dL Assessment and Plan Assessment: 43-year-old male who is status post exploratory laparotomy with small bowel resection. Plan: -Advance to soft diet -IVF hydration -PRN pain and nausea control -DVT/GI PPx -Await pathology results Karan Tinoco MD General Surgery
[2023-10-18 13:42] LABS: Basophils # (A) 0.03 X 10*3/uL (0.00-0.10); Basophils % (A) 0.2 %; Eosinophils # (A) 0.11 X 10*3/uL (0.04-0.35); Eosinophils % (A) 0.9 %; HCT 25.9 % (39.6-50.0); HGB 7.8 g/dL (13.0-17.0); Lymphocytes # (A) 0.69 X 10*3/uL (0.90-5.00); Lymphocytes % (A) 5.7 %; MCH 24.3 pg (27.0-32.0); MCHC 30.1 g/dL (32.0-37.0); MCV 80.7 FL (80.0-97.0); Mean Platelet Volume 9.5 FL (9.5-12.2); Monocytes # (A) 0.71 X 10*3/uL (0.20-1.00); Monocytes % (A) 5.8 %; NRBC Per 100 WBC 0 X 10*3/uL (0.00-0.01); Neutrophils # (A) 10.56 X 10*3/uL (1.80-7.70); Neutrophils % (A) 86.7 %; Platelet Count 353 X 10*3/uL (140-440); RBC 3.21 X 10*6/uL (4.40-5.60); RDW 17.5 % (11.5-14.5); WBC 12.19 X 10*3/uL (4.50-10.00)
[2023-10-18] MEDS: MVI, ADULT NO.4 WITH VIT K 10 ML, TRACE (CONC-1ML/DOSE) 1 ML, POTASSIUM CHLORIDE 20 MEQ... IV SCH (14:47)
--- NOTE | 2023-10-18 15:17 | P.PN ---
Subjective Progress Note Date: 10/18/23 Hospital course: Patient is a 42-year-old male with a past medical history of chronic pancreatitis, alcoholism, history of a pulmonary emboli, right-sided jaw cancer status post chemo/radiation treatment, GERD with erosive esophagitis, gastritis, and recent hospitalization from 09/04/2023 through 09/18/2023 for small bowel obstruction status post perforation resulting in emergent small bowel resection with ejvc-[id number] duodenojejunostomy 09/06/2023 complicated by post operative ileus. He completed multiple days of IV antibiotics and discharged home on PO Augmentin and DEBORA drain. He presented to the emergency department on 10/09/2023 with a chief complaint of increased abdominal pain, abdominal distention and multiple episodes of bilious vomiting. Upon arrival in the emergency department, patient underwent full evaluation. Vital signs upon arrival showed BP 145/95, HR 101, RR 18, T 90 7.8F, 100% on RA. Labs were completed and revi ewed CBC showed WBC count 18.5, hemoglobin 10.6, hematocrit 33.2, MCV 79, platelet 634. CMP showed sodium 134, bicarb 20, creatinine 0.48, glucose 167, albumin 2.9. Lipase 473. Lactic acid 1.4. CT abdomen and pelvis was completed revealing diffuse SB dilation with bowel containing gas, feces, and fluid suspicious for ileus versus small bowel obstruction, drainage catheter in place, and chronic pancreatitis changes. Patient reported having bowel movements despite abdominal distention and worsening pain. Patient was admitted to general surgery team and [facility] was consulted for medical management of this patient throughout hospitalization. DEBORA drain cultures positive for MRSA. Patient failed conservative management of small bowel obstruction and was taken for open laparotomy with lysis of adhesions and resection of small bowel tumor with wound VAC placement on 10/16/2023. Pathology sample was sent to lab for analysis of small bowel tumors. Physical exam: Patient seen and fully evaluated at bedside this morning. He was sitting up in the chair. He reports pain is much better controlled today. He also reports to having a small bowel movement yesterday. Patient denies having any nausea or vomiting and is tolerating oral intake well. Vital signs reviewed and stable. General: Nontoxic, no acute distress and appears older than stated age. Thin and frail. Derm: Skin warm and dry, normal coloration for ethnicity. Head: Atraumatic, normocephalic and symmetric. Eyes: EOMs intact, no lid lag, and anicteric sclera Mouth: no lip lesions, mucus membranes moist Cardiovascular: regular rate and rhythm with normal S1S2, no murmur, positive posterior tibial pulses bilaterally, and cap refill < 2 seconds. Lungs: Respirations even, regular, and unlabored on room air. Lungs CTA bilaterally, no rhonchi, no rales, no wheezing, and no accessory muscle usage. Abdominal: Abdomen distended. Postsurgical incision midline with wound VAC in place. Ext: ROM intact. No gross muscle atrophy, no edema, no contractures Neuro: Speech clear, face symmetrical and CN II-XII grossly intact with no noted focal neuro deficits Psych: Alert and oriented to person, place, time, and situation. Appropriate and pleasant affect. Assessment and Plan of Care: MRSA infection Small bowel obstruction status post open laparotomy with lysis of adhesions and resection of small bowel tumor Abdominal pain secondary to above History of GERD with erosive esophagitis History of gastritis Elevated lipase with history of chronic pancreatitis Severe protein calorie malnutrition with BMI of 16.9 kg/m -General surgery following, took patient for open laparotomy with lysis of adhesions and resection of small bowel tumor with wound VAC placement on 10/16/2023 -Symptomatic care and pain management. Zofran 4 mg IVP every 8 hours as needed for nausea and/or vomiting -General surgery started patient on Dilaudid LEAN MANUFACTURING COORDINATOR for pain management. -Continue Protonix 40 mg IVP daily -Dietitian following managing TPN and lipids. -DEBORA drain culture was positive for MRSA and group D enterococcus faecalis. -Continue Unasyn 3g IV every 6 hours and vancomycin 1000 mg every 16 hours. Continue to monitor vancomycin trough and renal function closely for signs of vancomycin associated renal toxicity. -Blood cultures showed no growth -Pathology sample was sent to lab for analysis of small bowel tumors and currently pending. Acute postoperative blood loss anemia Hemoglobin 7.8 which is down from previous 9.9. No need for transfusion at this time, will continue to monitor closely with repeat morning CBC and transfuse as needed for hemoglobin less than 7. Hypokalemia, resolved. Hypomagnesemia, resolved. Thrombocytosis Thrombocytosis resolved. Platelet count 353. History of small bowel perforation status post emergent small bowel resection with thrv-gw-ragl duodenojejunostomy 09/06/2023 Data reviewed: Vital signs reviewed. Blood pressure 113/80, heart rate 86, respiratory rate 17, temp 97.6 F, and SpO2 of 100% on room air. Morning labs reviewed. CBC showing mild degree hypochromic WBC count of 4.19 and acute postoperative blood loss anemia with hemoglobin of 7.8. Thrombocytos is resolved with platelet count of 353. BMP revealing mild hyponatremia with sodium of 133. Liver profile unremarkable. CODE STATUS: FULL CODE DVT Prophylaxis: Lovenox SQ GI Prophylaxis: Protonix Anticipated discharge date: Clinical course to determine Anticipated discharge place: Clinical course to determine Patient was seen independently by Nurse Pracitioner. This document was prepared using [employer] dictation software. Please allow for errors in gas station supervisor, while rare they do occur. I reviewed the documentation as provided by the CATRINA above, who is the original author of this note. I agree with the documented assessment and plan, with the following changes: none Objective - Vital Signs Vital signs: Vital Signs Temp 97.6 F 10/18/23 07:00 Pulse 86 10/18/23 07:00 Resp 17 10/18/23 07:00 BP 113/80 10/18/23 07:00 Pulse Ox 100 10/18/23 07:00 FiO2 Intake & Output 10/17/23 10/18/23 10/18/23 18:59 06:59 18:59 Intake Total 2276 1000 Output Total 730 200 Balance 1546 800 Intake: Intake, IV Titration 1796 1000 Amount Ampicillin-Sulbactam 3 gm 100 200 In Sodium Chloride 0.9% 100 ml @ 200 mls/hr IVPB Q6H [facility] Rx#:[id number] Mvi, Adult No.4 with Vit 846 K 10 ml Trace (Conc-1Ml/ Dose) 1 ml Potassium Chloride 20 meq In Amino Acid 5%-D15w+Lytes*E* 1, 000 ml @ 45 mls/hr IV . [id number] [facility] Rx#:[id number] Sodium Chloride 0.9% 1, 600 550 000 ml @ 50 mls/hr IV . Q20H [facility] Rx#:[id number] Vancomycin 1,000 mg In 250 250 Sodium Chloride 0.9% 250 ml @ 125 mls/hr IVPB Q16H [facility] Rx#:[id number] Oral 480 Output: Urine 230 200 Stool 500 Other: Voiding Method Indwelling Catheter Indwelling Catheter - Labs CBC & Chem 7: 10/18/23 07:13 10/18/23 07:13 Labs: Abnormal Lab Results - Last 24 Hours (Table) 10/17/23 10/17/23 10/17/23 Range/Units 11:32 16:35 21:11 Sodium (137-145) mmol/L BUN (9-20) mg/dL Creatinine (0.66-1.25) mg/dL Glucose (74-99) mg/dL POC Glucose (mg/dL) 194 H 145 H 166 H (70-110) mg/dL Calcium (8.4-10.2) mg/dL Total Protein (6.3-8.2) g/dL Albumin (3.5-5.0) g/dL 10/18/23 10/18/23 10/18/23 Range/Units 00:36 06:59 07:13 Sodium 133 L (137-145) mmol/L BUN 21 H (9-20) mg/dL Creatinine 0.54 L (0.66-1.25) mg/dL Glucose 114 H (74-99) mg/dL POC Glucose (mg/dL) 123 H 120 H (70-110) mg/dL Calcium 7.4 L (8.4-10.2) mg/dL Total Protein 4.4 L (6.3-8.2) g/dL Albumin 2.0 L (3.5-5.0) g/dL
--- NOTE | 2023-10-18 15:45 | P.PN ---
Subjective Progress Note Date: 10/18/23 Principal diagnosis: Reason for follow-up is fever/ileus/obstruction Patient is a 43-year-old -Chinese male past medical history significant for right-sided jaw cancer for the patient be treated with chemoradiation therapy, patient also have a history of alcohol abuse possible acute and chronic pancreatitis patient recently did have a prolonged hospital stay for bowel obstruction and this patient who did have a perforated small bowel and status post resection on 09/06/2023 did have prolonged ileus, now presenting back to the hospital abdominal pain and vomiting has been diagnosed with ileus/obstruction.Patient is status post open expiratory laparotomy with lysis o f adhesion excision of small bowel tumor x 3 closure of decompressive enterostomy and drainage of abdominal ascites completed on 10/16/2023. On today's evaluation that is 10/18/2023, Patient is afebrile patient is currently on room air and denies having any shortness of breath, the patient denies any chest pain or cough, the patient denies any nausea vomiting still complaining of abdominal pain however has decreased intensity still no bowel movement. Patient white count is 12.19, creatinine 0.54 Objective - Vital Signs Vital signs: Vital Signs Temp 98.1 F 10/18/23 14:00 Pulse 112 H 10/18/23 14:00 Resp 17 10/18/23 14:00 BP 149/99 10/18/23 14:00 Pulse Ox 99 10/18/23 14:00 FiO2 Intake & Output 10/17/23 10/18/23 10/18/23 18:59 06:59 18:59 Intake Total 2276 1000 Output Total 730 200 Balance 1546 800 Intake: Intake, IV Titration 1796 1000 Amount Ampicillin-Sulbactam 3 gm 100 200 In Sodium Chloride 0.9% 100 ml @ 200 mls/hr IVPB Q6H [facility] Rx#:[id number] Mvi, Adult No.4 with Vit 846 K 10 ml Trace (Conc-1Ml/ Dose) 1 ml Potassium Chloride 20 meq In Amino Acid 5%-D15w+Lytes*E* 1, 000 ml @ 45 mls/hr IV . [id number] [facility] Rx#:[id number] Sodium Chloride 0.9% 1, 600 550 000 ml @ 50 mls/hr IV . Q20H [facility] Rx#:[id number] Vancomycin 1,000 mg In 250 250 Sodium Chloride 0.9% 250 ml @ 125 mls/hr IVPB Q16H [facility] Rx#:[id number] Oral 480 Output: Urine 230 200 Stool 500 Other: Voiding Method Indwelling Catheter Indwelling Catheter Indwelling Catheter - Exam GENERAL DESCRIPTION: Middle-age male lying in bed in no distress RESPIRATORY SYSTEM: Unlabored breathing , decreased breath sounds at bases HEART: S1 S2 regular rate and rhythm , ABDOMEN: Soft , mild distention and tenderness EXTREMITIES: No edema feet - Labs CBC & Chem 7: 10/18/23 07:13 10/18/23 07:13 Labs: Abnormal Lab Results - Last 24 Hours (Table) 10/17/23 10/17/23 10/18/23 Range/Units 16:35 21:11 00:36 WBC (4.50-10.00) X 10*3/uL RBC (4.40-5.60) X 10*6/uL Hgb (13.0-17.0) g/dL Hct (39.6-50.0) % MCH (27.0-32.0) pg MCHC (32.0-37.0) g/dL RDW (11.5-14.5) % Immature Gran # (0.00-0.04) X 10*3/uL Neutrophils # (1.80-7.70) X 10*3/uL Lymphocytes # (0.90-5.00) X 10*3/uL Sodium (137-145) mmol/L BUN (9-20) mg/dL Creatinine (0.66-1.25) mg/dL Glucose (74-99) mg/dL POC Glucose (mg/dL) 145 H 166 H 123 H (70-110) mg/dL Calcium (8.4-10.2) mg/dL Total Protein (6.3-8.2) g/dL Albumin (3.5-5.0) g/dL 10/18/23 10/18/23 10/18/23 Range/Units 06:59 07:13 07:13 WBC 12.19 H (4.50-10.00) X 10*3/uL RBC 3.21 L (4.40-5.60) X 10*6/uL Hgb 7.8 L (13.0-17.0) g/dL Hct 25.9 L (39.6-50.0) % MCH 24.3 L (27.0-32.0) pg MCHC 30.1 L (32.0-37.0) g/dL RDW 17.5 H (11.5-14.5) % Immature Gran # 0.09 H (0.00-0.04) X 10*3/uL Neutrophils # 10.56 H (1.80-7.70) X 10*3/uL Lymphocytes # 0.69 L (0.90-5.00) X 10*3/uL Sodium 133 L (137-145) mmol/L BUN 21 H (9-20) mg/dL Creatinine 0.54 L (0.66-1.25) mg/dL Glucose 114 H (74-99) mg/dL POC Glucose (mg/dL) 120 H (70-110) mg/dL Calcium 7.4 L (8.4-10.2) mg/dL Total Protein 4.4 L (6.3-8.2) g/dL Albumin 2.0 L (3.5-5.0) g/dL 10/18/23 Range/Units 11:40 WBC (4.50-10.00) X 10*3/uL RBC (4.40-5.60) X 10*6/uL Hgb (13.0-17.0) g/dL Hct (39.6-50.0) % MCH (27.0-32.0) pg MCHC (32.0-37.0) g/dL RDW (11.5-14.5) % Immature Gran # (0.00-0.04) X 10*3/uL Neutrophils # (1.80-7.70) X 10*3/uL Lymphocytes # (0.90-5.00) X 10*3/uL Sodium (137-145) mmol/L BUN (9-20) mg/dL Creatinine (0.66-1.25) mg/dL Glucose (74-99) mg/dL POC Glucose (mg/dL) 113 H (70-110) mg/dL Calcium (8.4-10.2) mg/dL Total Protein (6.3-8.2) g/dL Albumin (3.5-5.0) g/dL Assessment and Plan (1) Leukocytosis Current Visit: Yes Status: Acute Code(s): D72.829 - ELEVATED WHITE BLOOD CELL COUNT, UNSPECIFIED SNOMED Code(s): 255460524 (2) Ileus Current Visit: Yes Status: Acute Code(s): K56.7 - ILEUS, UNSPECIFIED SNOMED Code(s): 563621977 (3) MRSA (methicillin resistant staph aureus) culture positive Current Visit: Yes Status: Acute Code(s): Z22.322 - CARRIER OR SUSPECTED CARRIER OF METHICILLIN RESIS STAPH SNOMED Code(s): 813780392 Plan: 1patient presented hospital with sepsis in this patient who did have an elevated white count tachycardia source likely abdominal pain this patient did have predominantly abdominal symptoms with abdominal pain and vomiting CT has been suggestive of ileus/obstruction and will likely need to cover for the enteric gram-negative both aerobes and anaerobes 2- cultures from the [facility] are growing MRSA as well as Enterococcus 3-patient is status post extensive abdominal surgery did not mention any perforation or abscess no cultures 4- patient to continue with vancomycin and Unasyn, white count is slightly trending down compared to yesterday and will be monitored closely Dictation was produced using [employer] dictation software. please excuse any grammatical, word or spelling errors. Time with Patient: Less than 30
[2023-10-18 16:45] LABS: Glucose,Whole Blood 133 mg/dL (70-110)
[2023-10-18] MEDS: VANCOMYCIN TROUGH DUE 1 EACH MISC MISCELLANE ONE (17:01)
[2023-10-18 19:38] LABS: Glucose,Whole Blood 143 mg/dL (70-110)
[2023-10-19 00:06] LABS: Glucose,Whole Blood 133 mg/dL (70-110)
[2023-10-19 05:46] LABS: Glucose,Whole Blood 150 mg/dL (70-110)
[2023-10-19 08:01] LABS: ALT 9 U/L (4-49); AST 17 U/L (17-59); African American GFR (CKD) >90 (>60 ml/min/1.73 sqM); Albumin 2.1 g/dL (3.5-5.0); Albumin/Globulin Ratio 0.8; Alkaline Phosphatase 93 U/L (38-126); Anion Gap 8 mmol/L; Blood Urea Nitrogen 18 mg/dL (9-20); Calcium 7.7 mg/dL (8.4-10.2); Carbon Dioxide 20 mmol/L (22-30); Chloride 107 mmol/L (98-107); Globulin 2.6 g/dL; Glucose 133 mg/dL (74-99); Magnesium 1.6 mg/dL (1.6-2.3); Non-African American GFR(CKD) >90 (>60 ml/min/1.73 sqM); Phosphorus 3.8 mg/dL (2.5-4.5); Potassium 3.9 mmol/L (3.5-5.1); Sodium 135 mmol/L (137-145); Total Bilirubin 0.2 mg/dL (0.2-1.3); Total Protein 4.7 g/dL (6.3-8.2)
[2023-10-19 08:23] LABS: Anisocytosis Slight; HCT 28.6 % (39.0-53.0); HGB 8.7 gm/dL (13.0-17.5); Hypochromasia Marked; MCHC 30.2 g/dL (31.0-37.0); MCV 82.7 fL (80.0-100.0); Mean Platelet Volume 8.4; Platelet Count 364 k/uL (150-450); RBC 3.46 m/uL (4.30-5.90); RDW 16.5 % (11.5-15.5); WBC 11.9 k/uL (3.8-10.6)
[2023-10-19 11:34] LABS: Glucose,Whole Blood 160 mg/dL (70-110)
[2023-10-19] MEDS: MVI, ADULT NO.4 WITH VIT K 10 ML, TRACE (CONC-1ML/DOSE) 1 ML, POTASSIUM CHLORIDE 20 MEQ... IV SCH (12:15)
--- NOTE | 2023-10-19 13:35 | P.PN ---
Subjective Progress Note Date: 10/19/23 Hospital course: Patient is a 42-year-old male with a past medical history of chronic pancreatitis, alcoholism, history of a pulmonary emboli, right-sided jaw cancer status post chemo/radiation treatment, GERD with erosive esophagitis, gastritis, and recent hospitalization from 09/04/2023 through 09/18/2023 for small bowel obstruction status post perforation resulting in emergent small bowel resection with [id number] duodenojejunostomy 09/06/2023 complicated by post operative ileus. He completed multiple days of IV antibiotics and discharged home on PO Augmentin and DEBORA drain. He presented to the emergency department on 10/09/2023 with a chief complaint of increased abdominal pain, abdominal distention and multiple episodes of bilious vomiting. Upon arrival in the emergency department, patient underwent full evaluation. Vital signs upon arrival showed BP 145/95, HR 101, RR 18, T 90 7.8F, 100% on RA. Labs were completed and revie wed CBC showed WBC count 18.5, hemoglobin 10.6, hematocrit 33.2, MCV 79, platelet 634. CMP showed sodium 134, bicarb 20, creatinine 0.48, glucose 167, albumin 2.9. Lipase 473. Lactic acid 1.4. CT abdomen and pelvis was completed revealing diffuse SB dilation with bowel containing gas, feces, and fluid suspicious for ileus versus small bowel obstruction, drainage catheter in place, and chronic pancreatitis changes. Patient reported having bowel movements despite abdominal distention and worsening pain. Patient was admitted to general surgery team and [facility] was consulted for medical management of this patient throughout hospitalization. DEBORA drain cultures positive for MRSA. Patient failed conservative management of small bowel obstruction and was taken for open laparotomy with lysis of adhesions and resection of small bowel tumor with wound VAC placement on 10/16/2023. Pathology sample was sent to lab for analysis of small bowel tumors. Physical exam: Patient seen and fully evaluated at bedside this morning. He was again sitting up in the chair. He reports 1 episode of nausea and vomiting overnight and currently feeling nauseous. He denies any further episodes of bowel movement other than the one very small 1 he had 2 nights ago. Patient reports controlled postoperative pain at this time. Vital signs reviewed and stable. General: Nontoxic, no acute distress and appears older than stated age. Thin and frail. Derm: Skin warm and dry, normal coloration for ethnicity. Head: Atraumatic, normocephalic and symmetric. Eyes: EOMs intact, no lid lag, and anicteric sclera Mouth: no lip lesions, mucus membranes moist Cardiovascular: regular rate and rhythm with normal S1S2, no murmur, positive posterior tibial pulses bilaterally, and cap refill < 2 seconds. Lungs: Respirations even, regular, and unlabored on room air. Lungs CTA bilaterally, no rhonchi, no rales, no wheezing, and no accessory muscle usage. Abdominal: Abdomen distended. Postsurgical incision midline with wound VAC in place. Ext: ROM intact. No gross muscle atrophy, no edema, no contractures Neuro: Speech clear, face symmetrical and CN II-XII grossly intact with no noted focal neuro deficits Psych: Alert and oriented to person, place, time, and situation. Appropriate and pleasant affect. Assessment and Plan of Care: MRSA infection Small bowel obstruction status post open laparotomy with lysis of adhesions and resection of small bowel tumor Abdominal pain secondary to above History of GERD with erosive esophagitis History of gastritis Elevated lipase with history of chronic pancreatitis Severe protein calorie malnutrition with BMI of 16.9 kg/m -General surgery following, took patient for open laparotomy with lysis of adhesions and resection of small bowel tumor with wound VAC placement on 10/16/2023 -Symptomatic care and pain management. 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 -Continue Protonix 40 mg IVP daily -Dietitian following managing TPN and lipids. -DEBORA drain culture was positive for MRSA and group D enterococcus faecalis. -Continue Unasyn 3g IV every 6 hours and vancomycin 1000 mg every 16 hours. Continue to monitor vancomycin trough and renal function closely for signs of vancomycin associated renal toxicity. -Blood cultures showed no growth -Pathology sample was sent to lab for analysis of small bowel tumors and curre ntly pending. Acute postoperative blood loss anemia Hemoglobin 7.8 which is down from previous 9.9. No need for transfusion at this time, will continue to monitor closely with repeat morning CBC and transfuse as needed for hemoglobin less than 7. Hypokalemia, resolved. Hypomagnesemia, resolved. Thrombocytosis Thrombocytosis resolved. Platelet count 364. History of small bowel perforation status post emergent small bowel resection with [id number] duodenojejunostomy 09/06/2023 Data reviewed: Vital signs reviewed. Blood pressure 132/77, heart rate 82, respiratory rate 17, temp 97.8 F, and SpO2 of 99% on room air. Morning labs reviewed. CBC showing mild leukocytosis with WBC count of 11.9 and stable hemoglobin of 8.7. BMP showing sodium 135, potassium 3.9, chloride 20, anion gap of 8 and creatinine of 0.59. Blood glucose 133. Liver profile unremarkable. Albumin remains low at 2.1. CODE STATUS: FULL CODE DVT Prophylaxis: Lovenox SQ GI Prophylaxis: Protonix Anticipated discharge date: Clinical course to determine Anticipated discharge place: Clinical course to determine Patient was seen independently by Nurse Pracitioner. This document was prepared using [employer] dictation software. Please allow for errors in cooperative extension agent, while rare they do occur. I reviewed the documentation as provided by the CATRINA above, who is the original author of this note. I agree with the documented assessment and plan, with the following changes: none Objective - Vital Signs Vital signs: Vital Signs Temp 97.8 F 10/19/23 07:05 Pulse 82 10/19/23 07:05 Resp 17 10/19/23 07:05 BP 132/77 10/19/23 07:05 Pulse Ox 99 10/19/23 07:05 FiO2 Intake & Output 10/18/23 10/19/23 10/19/23 18:59 06:59 18:59 Intake Total 1465 Output Total 400 275 Balance -400 1190 Intake: Intake, IV Titration 1465 Amount Ampicillin-Sulbactam 3 gm 200 In Sodium Chloride 0.9% 100 ml @ 200 mls/hr IVPB Q6H [facility] Rx#:[id number] Fat Emulsion 20% 250 ml 125 In Empty Bag 1 bag @ 21 mls/hr IV TuSa@0900 [facility] Rx#:[id number] Mvi, Adult No.4 with Vit 540 K 10 ml Trace (Conc-1Ml/ Dose) 1 ml Potassium Chloride 20 meq Sodium Chloride 4Meq/ml Vial 8 meq In Amino Acid 5%-D15w +Lytes*E* 1,000 ml @ 45 mls/hr IV .[id number] [facility] Rx #:[id number] Sodium Chloride 0.9% 1, 600 000 ml @ 50 mls/hr IV . Q20H [facility] Rx#:[id number] Output: Urine 400 275 Uretheral (Sandoval) 275 Other: Voiding Method Indwelling Catheter Indwelling Catheter # Emeses 1 - Labs CBC & Chem 7: 10/19/23 06:35 10/20/23 04:12 Labs: Abnormal Lab Results - Last 24 Hours (Table) 10/18/23 10/18/23 10/18/23 Range/Units 07:13 11:40 16:43 WBC 12.19 H (4.50-10.00) X 10*3/uL RBC 3.21 L (4.40-5.60) X 10*6/uL Hgb 7.8 L (13.0-17.0) g/dL Hct 25.9 L (39.6-50.0) % MCH 24.3 L (27.0-32.0) pg MCHC 30.1 L (32.0-37.0) g/dL RDW 17.5 H (11.5-14.5) % Immature Gran # 0.09 H (0.00-0.04) X 10*3/uL Neutrophils # 10.56 H (1.80-7.70) X 10*3/uL Lymphocytes # 0.69 L (0.90-5.00) X 10*3/uL Sodium (137-145) mmol/L Carbon Dioxide (22-30) mmol/L Creatinine (0.66-1.25) mg/dL Glucose (74-99) mg/dL POC Glucose (mg/dL) 113 H 133 H (70-110) mg/dL Calcium (8.4-10.2) mg/dL Total Protein (6.3-8.2) g/dL Albumin (3.5-5.0) g/dL 10/18/23 10/19/23 10/19/23 Range/Units 19:36 00:04 05:45 WBC (4.50-10.00) X 10*3/uL RBC (4.40-5.60) X 10*6/uL Hgb (13.0-17.0) g/dL Hct (39.6-50.0) % MCH (27.0-32.0) pg MCHC (32.0-37.0) g/dL RDW (11.5-14.5) % Immature Gran # (0.00-0.04) X 10*3/uL Neutrophils # (1.80-7.70) X 10*3/uL Lymphocytes # (0.90-5.00) X 10*3/uL Sodium (137-145) mmol/L Carbon Dioxide (22-30) mmol/L Creatinine (0.66-1.25) mg/dL Glucose (74-99) mg/dL POC Glucose (mg/dL) 143 H 133 H 150 H (70-110) mg/dL Calcium (8.4-10.2) mg/dL Total Protein (6.3-8.2) g/dL Albumin (3.5-5.0) g/dL 10/19/23 10/19/23 Range/Units 06:35 06:35 WBC 11.9 H (4.50-10.00) X 10*3/uL RBC 3.46 L (4.40-5.60) X 10*6/uL Hgb 8.7 L (13.0-17.0) g/dL Hct 28.6 L (39.6-50.0) % MCH (27.0-32.0) pg MCHC 30.2 L (32.0-37.0) g/dL RDW 16.5 H (11.5-14.5) % Immature Gran # (0.00-0.04) X 10*3/uL Neutrophils # (1.80-7.70) X 10*3/uL Lymphocytes # (0.90-5.00) X 10*3/uL Sodium 135 L (137-145) mmol/L Carbon Dioxide 20 L (22-30) mmol/L Creatinine 0.59 L (0.66-1.25) mg/dL Glucose 133 H (74-99) mg/dL POC Glucose (mg/dL) (70-110) mg/dL Calcium 7.7 L (8.4-10.2) mg/dL Total Protein 4.7 L (6.3-8.2) g/dL Albumin 2.1 L (3.5-5.0) g/dL
--- NOTE | 2023-10-19 16:03 | P.PN ---
Subjective Progress Note Date: 10/19/23 Principal diagnosis: Patient reports emesis after bitter taste from Tylenol. 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 He has been moving. Did have a small bowel movement 2 days ago. Hold NG tube. Discontinue Tylenol. Education for ROOFING SUPERVISOR reviewed. Patient emphasized physical therapy and ambulation. May benefit from Reglan for bowel function. Objective - Vital Signs Vital signs: Vital Signs Temp 98.1 F 10/19/23 14:15 Pulse 89 10/19/23 14:15 Resp 17 10/19/23 14:15 BP 145/91 10/19/23 14:15 Pulse Ox 98 10/19/23 14:15 FiO2 Intake & Output 10/18/23 10/19/23 10/19/23 18:59 06:59 18:59 Intake Total 1465 Output Total 400 275 775 Balance -400 1190 -775 Intake: Intake, IV Titration 1465 Amount Ampicillin-Sulbactam 3 gm 200 In Sodium Chloride 0.9% 100 ml @ 200 mls/hr IVPB Q6H [facility] Rx#:[id number] Fat Emulsion 20% 250 ml 125 In Empty Bag 1 bag @ 21 mls/hr IV TuSa@0900 [facility] Rx#:[id number] Mvi, Adult No.4 with Vit 540 K 10 ml Trace (Conc-1Ml/ Dose) 1 ml Potassium Chloride 20 meq Sodium Chloride 4Meq/ml Vial 8 meq In Amino Acid 5%-D15w +Lytes*E* 1,000 ml @ 45 mls/hr IV .[id number] [facility] Rx #:[id number] Sodium Chloride 0.9% 1, 600 000 ml @ 50 mls/hr IV . Q20H [facility] Rx#:[id number] Output: Urine 400 275 275 Uretheral (Sandoval) 275 275 Stool 500 Other: Voiding Method Indwelling Catheter Indwelling Catheter Indwelling Catheter # Emeses 1 - Labs CBC & Chem 7: 10/19/23 06:35 10/19/23 06:35 Labs: Abnormal Lab Results - Last 24 Hours (Table) 10/18/23 10/18/23 10/19/23 Range/Units 16:43 19:36 00:04 WBC (3.8-10.6) k/uL RBC (4.30-5.90) m/uL Hgb (13.0-17.5) gm/dL Hct (39.0-53.0) % MCHC (31.0-37.0) g/dL RDW (11.5-15.5) % Sodium (137-145) mmol/L Carbon Dioxide (22-30) mmol/L Creatinine (0.66-1.25) mg/dL Glucose (74-99) mg/dL POC Glucose (mg/dL) 133 H 143 H 133 H (70-110) mg/dL Calcium (8.4-10.2) mg/dL Total Protein (6.3-8.2) g/dL Albumin (3.5-5.0) g/dL 10/19/23 10/19/23 10/19/23 Range/Units 05:45 06:35 06:35 WBC 11.9 H (3.8-10.6) k/uL RBC 3.46 L (4.30-5.90) m/uL Hgb 8.7 L (13.0-17.5) gm/dL Hct 28.6 L (39.0-53.0) % MCHC 30.2 L (31.0-37.0) g/dL RDW 16.5 H (11.5-15.5) % Sodium 135 L (137-145) mmol/L Carbon Dioxide 20 L (22-30) mmol/L Creatinine 0.59 L (0.66-1.25) mg/dL Glucose 133 H (74-99) mg/dL POC Glucose (mg/dL) 150 H (70-110) mg/dL Calcium 7.7 L (8.4-10.2) mg/dL Total Protein 4.7 L (6.3-8.2) g/dL Albumin 2.1 L (3.5-5.0) g/dL 10/19/23 Range/Units 11:32 WBC (3.8-10.6) k/uL RBC (4.30-5.90) m/uL Hgb (13.0-17.5) gm/dL Hct (39.0-53.0) % MCHC (31.0-37.0) g/dL RDW (11.5-15.5) % Sodium (137-145) mmol/L Carbon Dioxide (22-30) mmol/L Creatinine (0.66-1.25) mg/dL Glucose (74-99) mg/dL POC Glucose (mg/dL) 160 H (70-110) mg/dL Calcium (8.4-10.2) mg/dL Total Protein (6.3-8.2) g/dL Albumin (3.5-5.0) g/dL
[2023-10-19] MEDS: METOCLOPRAMIDE 5 MG/ML 2 ML VIAL IVP SCH (16:18)
[2023-10-19 16:42] LABS: Glucose,Whole Blood 127 mg/dL (70-110)
--- NOTE | 2023-10-19 16:44 | P.PN ---
Subjective Progress Note Date: 10/19/23 Principal diagnosis: Reason for follow-up is fever/ileus/obstruction Patient is a 43-year-old -[place] male past medical history significant for right-sided jaw cancer for the patient be treated with chemoradiation therapy, patient also have a history of alcohol abuse possible acute and chronic pancreatitis patient recently did have a prolonged hospital stay for bowel obstruction and this patient who did have a perforated small bowel and status post resection on 09/06/2023 did have prolonged ileus, now presenting back to the hospital abdominal pain and vomiting has been diagnosed with ileus/obstruction.Patient is status post open expiratory laparotomy with lysis o f adhesion excision of small bowel tumor x 3 closure of decompressive enterostomy and drainage of abdominal ascites completed on 10/16/2023. On today's evaluation that is 10/19/2023, patient has been afebrile, patient is breathing comfortably and is currently on room air, patient denies having any si gnificant cough no chest pain shortness of breath, patient has been complaining of feeling nauseated had episode of vomiting still complaining of abdominal pain and did not have any bowel movement. Patient white count is down to 11.9, creatinine 0.59 Objective - Vital Signs Vital signs: Vital Signs Temp 98.1 F 10/19/23 14:15 Pulse 89 10/19/23 14:15 Resp 17 10/19/23 14:15 BP 145/91 10/19/23 14:15 Pulse Ox 98 10/19/23 14:15 FiO2 Intake & Output 10/18/23 10/19/23 10/19/23 18:59 06:59 18:59 Intake Total 1465 Output Total 400 275 775 Balance -400 1190 -775 Intake: Intake, IV Titration 1465 Amount Ampicillin-Sulbactam 3 gm 200 In Sodium Chloride 0.9% 100 ml @ 200 mls/hr IVPB Q6H [facility] Rx#:[id number] Fat Emulsion 20% 250 ml 125 In Empty Bag 1 bag @ 21 mls/hr IV TuSa@0900 [facility] Rx#:[id number] Mvi, Adult No.4 with Vit 540 K 10 ml Trace (Conc-1Ml/ Dose) 1 ml Potassium Chloride 20 meq Sodium Chloride 4Meq/ml Vial 8 meq In Amino Acid 5%-D15w +Lytes*E* 1,000 ml @ 45 mls/hr IV .[id number] [facility] Rx #:[id number] Sodium Chloride 0.9% 1, 600 000 ml @ 50 mls/hr IV . Q20H [facility] Rx#:[id number] Output: Urine 400 275 275 Uretheral (Sandoval) 275 275 Stool 500 Other: Voiding Method Indwelling Catheter Indwelling Catheter Indwelling Catheter # Emeses 1 - Exam GENERAL DESCRIPTION: Middle-age male lying in bed in no distress RESPIRATORY SYSTEM: Unlabored breathing , decreased breath sounds at bases HEART: S1 S2 regular rate and rhythm , ABDOMEN: Soft , mild distention and tenderness EXTREMITIES: No edema feet - Labs CBC & Chem 7: 10/19/23 06:35 10/19/23 06:35 Labs: Abnormal Lab Results - Last 24 Hours (Table) 10/18/23 10/18/23 10/19/23 Range/Units 16:43 19:36 00:04 WBC (3.8-10.6) k/uL RBC (4.30-5.90) m/uL Hgb (13.0-17.5) gm/dL Hct (39.0-53.0) % MCHC (31.0-37.0) g/dL RDW (11.5-15.5) % Sodium (137-145) mmol/L Carbon Dioxide (22-30) mmol/L Creatinine (0.66-1.25) mg/dL Glucose (74-99) mg/dL POC Glucose (mg/dL) 133 H 143 H 133 H (70-110) mg/dL Calcium (8.4-10.2) mg/dL Total Protein (6.3-8.2) g/dL Albumin (3.5-5.0) g/dL 10/19/23 10/19/23 10/19/23 Range/Units 05:45 06:35 06:35 WBC 11.9 H (3.8-10.6) k/uL RBC 3.46 L (4.30-5.90) m/uL Hgb 8.7 L (13.0-17.5) gm/dL Hct 28.6 L (39.0-53.0) % MCHC 30.2 L (31.0-37.0) g/dL RDW 16.5 H (11.5-15.5) % Sodium 135 L (137-145) mmol/L Carbon Dioxide 20 L (22-30) mmol/L Creatinine 0.59 L (0.66-1.25) mg/dL Glucose 133 H (74-99) mg/dL POC Glucose (mg/dL) 150 H (70-110) mg/dL Calcium 7.7 L (8.4-10.2) mg/dL Total Protein 4.7 L (6.3-8.2) g/dL Albumin 2.1 L (3.5-5.0) g/dL 10/19/23 10/19/23 Range/Units 11:32 16:40 WBC (3.8-10.6) k/uL RBC (4.30-5.90) m/uL Hgb (13.0-17.5) gm/dL Hct (39.0-53.0) % MCHC (31.0-37.0) g/dL RDW (11.5-15.5) % Sodium (137-145) mmol/L Carbon Dioxide (22-30) mmol/L Creatinine (0.66-1.25) mg/dL Glucose (74-99) mg/dL POC Glucose (mg/dL) 160 H 127 H (70-110) mg/dL Calcium (8.4-10.2) mg/dL Total Protein (6.3-8.2) g/dL Albumin (3.5-5.0) g/dL Assessment and Plan (1) Leukocytosis Current Visit: Yes Status: Acute Code(s): D72.829 - ELEVATED WHITE BLOOD CELL COUNT, UNSPECIFIED SNOMED Code(s): 294596238 (2) Ileus Current Visit: Yes Status: Acute Code(s): K56.7 - ILEUS, UNSPECIFIED SNOMED Code(s): 414043250 (3) MRSA (methicillin resistant staph aureus) culture positive Current Visit: Yes Status: Acute Code(s): Z22.322 - CARRIER OR SUSPECTED CARRIER OF METHICILLIN RESIS STAPH SNOMED Code(s): 099025619 Plan: 1patient presented hospital with sepsis in this patient who did have an elevated white count tachycardia source likely abdominal pain this patient did have predominantly abdominal symptoms with abdominal pain and vomiting CT has been suggestive of ileus/obstruction and will likely need to cover for the enteric gram-negative both aerobes and anaerobes 2- cultures from the [facility] are growing MRSA as well as Enterococcus 3-patient is status post extensive abdominal surgery did not mention any perforation or abscess no cultures 4- patient to continue with vancomycin and Unasyn, white count is slowly trending down to continue monitoring closely Dictation was produced using [employer] dictation software. please excuse any grammatical, word or spelling errors. Time with Patient: Less than 30
[2023-10-19 20:44] LABS: Glucose,Whole Blood 119 mg/dL (70-110)
[2023-10-20 00:29] LABS: Glucose,Whole Blood 115 mg/dL (70-110)
[2023-10-20] MEDS: VANCOMYCIN 1,000 MG in SODIUM CHLORIDE 0.9% 250 ML IVPB SCH (04:46)
[2023-10-20 04:55] LABS: ALT 8 U/L (4-49); AST 19 U/L (17-59); African American GFR (CKD) >90 (>60 ml/min/1.73 sqM); Albumin 2.3 g/dL (3.5-5.0); Albumin/Globulin Ratio 0.8; Alkaline Phosphatase 91 U/L (38-126); Anion Gap 5 mmol/L; Blood Urea Nitrogen 18 mg/dL (9-20); Carbon Dioxide 21 mmol/L (22-30); Chloride 109 mmol/L (98-107); Globulin 2.8 g/dL; Glucose 121 mg/dL (74-99); Magnesium 1.6 mg/dL (1.6-2.3); Non-African American GFR(CKD) >90 (>60 ml/min/1.73 sqM); Phosphorus 3.9 mg/dL (2.5-4.5); Potassium 3.9 mmol/L (3.5-5.1); Sodium 135 mmol/L (137-145); Total Bilirubin 0.3 mg/dL (0.2-1.3); Total Protein 5.1 g/dL (6.3-8.2)
[2023-10-20 05:52] LABS: Glucose,Whole Blood 132 mg/dL (70-110)
[2023-10-20] MEDS: MVI, ADULT NO.4 WITH VIT K 10 ML, TRACE (CONC-1ML/DOSE) 1 ML, POTASSIUM ACETATE 20 MEQ,... IV SCH (09:07)
--- NOTE | 2023-10-20 09:58 | P.PN ---
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 He completed multiple days of IV antibiotics and discharged home on PO Augmentin and DEBORA drain. He presented to the emergency department on 10/09/2023 with a chief complaint of increased abdominal pain, abdominal distention and multiple episodes of bilious vomiting. Upon arrival in the emergency department, patient underwent full evaluation. Vital signs upon arrival showed BP 145/95, HR 101, RR 18, T 90 7.8F, 100% on RA. Labs were completed and revie wed CBC showed WBC count 18.5, hemoglobin 10.6, hematocrit 33.2, MCV 79, platelet 634. CMP showed sodium 134, bicarb 20, creatinine 0.48, glucose 167, albumin 2.9. Lipase 473. Lactic acid 1.4. CT abdomen and pelvis was completed revealing diffuse SB dilation with bowel containing gas, feces, and fluid suspicious for ileus versus small bowel obstruction, drainage catheter in place, and chronic pancreatitis changes. Patient reported having bowel movements despite abdominal distention and worsening pain. Patient was admitted to general surgery team and [facility] was consulted for medical management of this patient throughout hospitalization. DEBORA drain cultures positive for MRSA. Patient failed conservative management of small bowel obstruction and was taken for open laparotomy with lysis of adhesions and resection of small bowel tumor with wound VAC placement on 10/16/2023. Pathology sample was sent to lab for analysis of small bowel tumors. Physical exam: Patient seen and fully evaluated at bedside this morning. He was again sitting up in the chair. He reports again having episode of nausea and vomiting overnight with continued nausea. Patient reports no further bowel movements since initial small BM on 10/17/2023, but does report passing flatus. He reports abdominal pain is currently controlled with Dilaudid DIVER HELPER. Patient started on scheduled Reglan for persistent nausea and hopes to increase bowel motility. Vital signs reviewed and stable. General: Nontoxic, no acute distress and appears older than stated age. Thin and frail. Derm: Skin warm and dry, normal coloration for ethnicity. Head: Atraumatic, normocephalic and symmetric. Eyes: EOMs intact, no lid lag, and anicteric sclera Mouth: no lip lesions, mucus membranes moist Cardiovascular: regular rate and rhythm with normal S1S2, no murmur, positive posterior tibial pulses bilaterally, and cap refill < 2 seconds. Lungs: Respirations even, regular, and unlabored on room air. Lungs CTA bilaterally, no rhonchi, no rales, no wheezing, and no accessory muscle usage. Abdominal: Abdomen distended. Postsurgical incision midline with wound VAC in place. Ext: ROM intact. No gross muscle atrophy, no edema, no contractures Neuro: Speech clear, face symmetrical and CN II-XII grossly intact with no noted focal neuro deficits Psych: Alert and oriented to person, place, time, and situation. Appropriate and pleasant affect. Assessment and Plan of Care: MRSA infection Small bowel obstruction status post open laparotomy with lysis of adhesions and resection of small bowel tumor Abdominal pain secondary to above History of GERD with erosive esophagitis History of gastritis Elevated lipase with history of chronic pancreatitis Severe protein calorie malnutrition with BMI of 16.9 kg/m -General surgery following, took patient for open laparotomy with lysis of adh esions and resection of small bowel tumor with wound VAC placement on 10/16/2023 -Symptomatic care and pain management. Zofran 4 mg IVP every 8 hours as needed for nausea and/or vomiting -General surgery started patient on Dilaudid DIVER HELPER for pain management. -Patient started on Reglan 10 mg IVP every 6 hours scheduled for persistent nausea and to increase bowel motility. -Continue Protonix 40 mg IVP daily -Dietitian following managing TPN and lipids. -DEBORA drain culture was positive for MRSA and group D enterococcus faecalis. -Continue Unasyn 3g IV every 6 hours and vancomycin 1000 mg every 16 hours. Continue to monitor vancomycin trough and renal function closely for signs of vancomycin associated renal toxicity. -Blood cultures showed no growth -Pathology sample was sent to lab for analysis of small bowel tumors and currently pending. Acute postoperative blood loss anemia Hemoglobin stable now 8.7. Will continue to monitor closely with repeat morning CBC and transfuse if needed for hemoglobin less than 7. Hypokalemia, resolved and pt is on TPN/Lipids Hypomagnesemia, resolved and pt is on TPN/Lipids Thrombocytosis Thrombocytosis resolved. Platelet count 364. History of small bowel perforation status post emergent small bowel resection with [id number] duodenojejunostomy 09/06/2023 Data reviewed: Vital signs reviewed. Blood pressure 133/93, heart rate 88, respiratory rate 17, temp 97.6 F. Morning labs reviewed. BMP showing sodium 135, potassium 3.9, chloride 109, bicarb 21, anion gap 5, BUN 18, creatinine 0.57, GFR greater than 90. Blood glucose 121. Magnesium 1.6. Liver profile normal findings with exception of hypoalbuminemia with albumin of 2.3 and total protein of 5.1. CODE STATUS: FULL CODE DVT Prophylaxis: Lovenox SQ GI Prophylaxis: Protonix Thank you for allowing us to participate in the care of this pleasant patient. Do not hesitate to contact us with questions. Someone can be reached from the [facility] hospitalist group all hours of the day at [phone] or via perfect serve. Patient was seen independently by Nurse Pracitioner. This document was prepared using [employer] dictation software. Please allow for errors in c engineer, while rare they do occur. I reviewed the documentation as provided by the CATRINA above, who is the original author of this note. I agree with the documented assessment and plan, with the following changes: none Objective - Vital Signs Vital signs: Vital Signs Temp 97.4 F L 10/20/23 00:31 Pulse 84 10/20/23 01:52 Resp 16 10/20/23 00:31 BP 140/88 10/20/23 01:52 Pulse Ox 100 10/20/23 00:31 FiO2 Intake & Output 10/19/23 10/20/23 10/20/23 18:59 06:59 18:59 Intake Total 1394 Output Total 1770 2378 Balance -381 -8810 Intake: Intake, IV Titration 1394 Amount Ampicillin-Sulbactam 3 gm 300 In Sodium Chloride 0.9% 100 ml @ 200 mls/hr IVPB Q6H [facility] Rx#:[id number] Fat Emulsion 20% 250 ml 84 In Empty Bag 1 bag @ 21 mls/hr IV TuSa@0900 [facility] Rx#:[id number] Mvi, Adult No.4 with Vit 360 K 10 ml Trace (Conc-1Ml/ Dose) 1 ml Potassium Chloride 20 meq Sodium Acetate 10 meq Magnesium Sulfate gm 0.25 gm In Amino Acid 5%-D15w+Lytes* E* 1,000 ml @ 45 mls/hr IV .[id number] [facility] Rx#: [id number] Sodium Chloride 0.9% 1, 400 000 ml @ 50 mls/hr IV . Q20H [facility] Rx#:[id number] Vancomycin 1,000 mg In 250 Sodium Chloride 0.9% 250 ml @ 125 mls/hr IVPB Q16H [facility] Rx#:[id number] Output: Urine 475 500 Uretheral (Sandoval) 275 Stool 500 Emesis 800 580 Other: Voiding Method Indwelling Catheter Urinal # Voids 2 - Labs CBC & Chem 7: 10/19/23 06:35 10/20/23 04:12 Labs: Abnormal Lab Results - Last 24 Hours (Table) 10/19/23 10/19/23 10/19/23 Range/Units 06:35 06:35 11:32 WBC 11.9 H (3.8-10.6) k/uL RBC 3.46 L (4.30-5.90) m/uL Hgb 8.7 L (13.0-17.5) gm/dL Hct 28.6 L (39.0-53.0) % MCHC 30.2 L (31.0-37.0) g/dL RDW 16.5 H (11.5-15.5) % Sodium 135 L (137-145) mmol/L Chloride (98-107) mmol/L Carbon Dioxide 20 L (22-30) mmol/L Creatinine 0.59 L (0.66-1.25) mg/dL Glucose 133 H (74-99) mg/dL POC Glucose (mg/dL) 160 H (70-110) mg/dL Calcium 7.7 L (8.4-10.2) mg/dL Total Protein 4.7 L (6.3-8.2) g/dL Albumin 2.1 L (3.5-5.0) g/dL 10/19/23 10/19/23 10/20/23 Range/Units 16:40 20:39 00:28 WBC (3.8-10.6) k/uL RBC (4.30-5.90) m/uL Hgb (13.0-17.5) gm/dL Hct (39.0-53.0) % MCHC (31.0-37.0) g/dL RDW (11.5-15.5) % Sodium (137-145) mmol/L Chloride (98-107) mmol/L Carbon Dioxide (22-30) mmol/L Creatinine (0.66-1.25) mg/dL Glucose (74-99) mg/dL POC Glucose (mg/dL) 127 H 119 H 115 H (70-110) mg/dL Calcium (8.4-10.2) mg/dL Total Protein (6.3-8.2) g/dL Albumin (3.5-5.0) g/dL 10/20/23 10/20/23 Range/Units 04:12 05:50 WBC (3.8-10.6) k/uL RBC (4.30-5.90) m/uL Hgb (13.0-17.5) gm/dL Hct (39.0-53.0) % MCHC (31.0-37.0) g/dL RDW (11.5-15.5) % Sodium 135 L (137-145) mmol/L Chloride 109 H (98-107) mmol/L Carbon Dioxide 21 L (22-30) mmol/L Creatinine 0.57 L (0.66-1.25) mg/dL Glucose 121 H (74-99) mg/dL POC Glucose (mg/dL) 132 H (70-110) mg/dL Calcium 8.0 L (8.4-10.2) mg/dL Total Protein 5.1 L (6.3-8.2) g/dL Albumin 2.3 L (3.5-5.0) g/dL
[2023-10-20 11:15] LABS: Glucose,Whole Blood 133 mg/dL (70-110)
--- NOTE | 2023-10-20 15:24 | P.PN ---
Subjective Progress Note Date: 10/20/23 CHIEF COMPLAINT: Recurrent small bowel obstruction HISTORY OF PRESENT ILLNESS: Patient postop day #4 status post open exploratory laparotomy with lysis of adhesions, excision of small bowel tumor x 3 closure of decompressive enterostomy, drainage of abdominal ascites and partial omentectomy. Patient had complained of vomiting last night. Abdomen remains distended. He is having a small amount of flatus. Reports decreased appetite. Afebrile. Pathology pending PHYSICAL EXAM: VITAL SIGNS: Reviewed GENERAL: Well-developed in no acute distress. HEENT: No sclera icterus. Extraocular movements grossly intact. Moist buccal mucosa. Head is atraumatic, normocephalic. Hears conversational speech. No nasal drainage. NECK: Supple without lymphadenopathy. CHEST: Non-labored respirations and equal bilateral excursions. CARDIOVASCULAR: Palpable 2+ radial pulses. ABDOMEN: Distended. Diffuse tenderness. Provide a wound VAC intact MUSCULOSKELETAL: No clubbing or cyanosis. NEUROLOGIC: No focal or lateralizing signs. Cranial nerves II through XII grossly intact. PSYCH: Appropriate affect. Alert and oriented to person, place and time. SKIN: Well perfused. Good skin turgor. ASSESSMENT: 1. Recurrent small bowel obstruction 2. History of mandibular cancer status post chemoradiation 3. Severe protein malnutrition 4. Underweight BMI 16.5 5. Recent history of small bowel perforation 6. History of alcohol abuse disorder 7. MRSA infection 8. History of pulmonary embolism 9. Bowel obstruction due to adhesive band disease/peritoneal adhesions 10. Retroperitoneal mass, 4 x 1 cm, left side PLAN: -Downgrade diet to full liquids -Continue Reglan -Continue TPN for nutrition support -Encourage patient to increase activity level -Continue antibiotics -DVT prophylaxis Lovenox Physician Acetaldehyde Converter Operator note has been reviewed by physician. Signing provider agrees with the documented findings, assessment, and plan of care. Objective - Vital Signs Vital signs: Vital Signs Temp 98.4 F 10/20/23 14:00 Pulse 98 10/20/23 14:00 Resp 16 10/20/23 14:00 BP 158/95 10/20/23 14:00 Pulse Ox 100 10/20/23 14:00 FiO2 Intake & Output 10/19/23 10/20/23 10/20/23 18:59 06:59 18:59 Intake Total 1394 Output Total 1775 1080 Balance -381 -1080 Intake: Intake, IV Titration 1394 Amount Ampicillin-Sulbactam 3 gm 300 In Sodium Chloride 0.9% 100 ml @ 200 mls/hr IVPB Q6H [facility] Rx#:[id number] Fat Emulsion 20% 250 ml 84 In Empty Bag 1 bag @ 21 mls/hr IV TuSa@0900 [facility] Rx#:[id number] Mvi, Adult No.4 with Vit 360 K 10 ml Trace (Conc-1Ml/ Dose) 1 ml Potassium Chloride 20 meq Sodium Acetate 10 meq Magnesium Sulfate gm 0.25 gm In Amino Acid 5%-D15w+Lytes* E* 1,000 ml @ 45 mls/hr IV .[id number] [facility] Rx#: [id number] Sodium Chloride 0.9% 1, 400 000 ml @ 50 mls/hr IV . Q20H [facility] Rx#:[id number] Vancomycin 1,000 mg In 250 Sodium Chloride 0.9% 250 ml @ 125 mls/hr IVPB Q16H [facility] Rx#:[id number] Output: Urine 475 500 Uretheral (Sandoval) 275 Stool 500 Emesis 800 580 Other: Voiding Method Indwelling Catheter Urinal # Voids 2 - Labs CBC & Chem 7: 10/19/23 06:35 10/20/23 04:12 Labs: Abnormal Lab Results - Last 24 Hours (Table) 10/19/23 10/19/23 10/20/23 Range/Units 16:40 20:39 00:28 Sodium (137-145) mmol/L Chloride (98-107) mmol/L Carbon Dioxide (22-30) mmol/L Creatinine (0.66-1.25) mg/dL Glucose (74-99) mg/dL POC Glucose (mg/dL) 127 H 119 H 115 H (70-110) mg/dL Calcium (8.4-10.2) mg/dL Total Protein (6.3-8.2) g/dL Albumin (3.5-5.0) g/dL 10/20/23 10/20/23 10/20/23 Range/Units 04:12 05:50 11:14 Sodium 135 L (137-145) mmol/L Chloride 109 H (98-107) mmol/L Carbon Dioxide 21 L (22-30) mmol/L Creatinine 0.57 L (0.66-1.25) mg/dL Glucose 121 H (74-99) mg/dL POC Glucose (mg/dL) 132 H 133 H (70-110) mg/dL Calcium 8.0 L (8.4-10.2) mg/dL Total Protein 5.1 L (6.3-8.2) g/dL Albumin 2.3 L (3.5-5.0) g/dL
[2023-10-20 16:19] LABS: Glucose,Whole Blood 148 mg/dL (70-110)
--- NOTE | 2023-10-20 18:07 | P.PN ---
Subjective Progress Note Date: 10/20/23 Principal diagnosis: Reason for follow-up is fever/ileus/obstruction Patient is a 43-year-old -[place] male past medical history significant for right-sided jaw cancer for the patient be treated with chemoradiation therapy, patient also have a history of alcohol abuse possible acute and chronic pancreatitis patient recently did have a prolonged hospital stay for bowel obstruction and this patient who did have a perforated small bowel and status post resection on 09/06/2023 did have prolonged ileus, now presenting back to the hospital abdominal pain and vomiting has been diagnosed with ileus/obstruction.Patient is status post open expiratory laparotomy with lysis o f adhesion excision of small bowel tumor x 3 closure of decompressive enterostomy and drainage of abdominal ascites completed on 10/16/2023. On today's evaluation that is 10/20/2023,the patient denies any fever or any chills, patient is breathing comfortably on room air, the patient denies chest pain shortness of breath and no significant cough, patient has been complaining of abdominal pain and did have vomiting no bowel movement. Creatinine 0.57 no CBC was done today Objective - Vital Signs Vital signs: Vital Signs Temp 97.6 F 10/20/23 07:00 Pulse 88 10/20/23 07:00 Resp 17 10/20/23 07:00 BP 133/93 10/20/23 07:00 Pulse Ox 100 10/20/23 07:00 FiO2 Intake & Output 10/19/23 10/20/23 10/20/23 18:59 06:59 18:59 Intake Total 1394 Output Total 1775 1080 Balance -381 1080 Intake: Intake, IV Titration 1394 Amount Ampicillin-Sulbactam 3 gm 300 In Sodium Chloride 0.9% 100 ml @ 200 mls/hr IVPB Q6H [facility] Rx#:[id number] Fat Emulsion 20% 250 ml 84 In Empty Bag 1 bag @ 21 mls/hr IV TuSa@0900 [facility] Rx#:[id number] Mvi, Adult No.4 with Vit 360 K 10 ml Trace (Conc-1Ml/ Dose) 1 ml Potassium Chloride 20 meq Sodium Acetate 10 meq Magnesium Sulfate gm 0.25 gm In Amino Acid 5%-D15w+Lytes* E* 1,000 ml @ 45 mls/hr IV .[id number] [facility] Rx#: [id number] Sodium Chloride 0.9% 1, 400 000 ml @ 50 mls/hr IV . Q20H [facility] Rx#:[id number] Vancomycin 1,000 mg In 250 Sodium Chloride 0.9% 250 ml @ 125 mls/hr IVPB Q16H [facility] Rx#:[id number] Output: Urine 475 500 Uretheral (Sandoval) 275 Stool 500 Emesis 800 580 Other: Voiding Method Indwelling Catheter Urinal # Voids 2 - Exam GENERAL DESCRIPTION: Middle-age male lying in bed in no distress RESPIRATORY SYSTEM: Unlabored breathing , decreased breath sounds at bases HEART: S1 S2 regular rate and rhythm , ABDOMEN: Soft , mild distention and tenderness EXTREMITIES: No edema feet - Labs CBC & Chem 7: 10/19/23 06:35 10/20/23 04:12 Labs: Abnormal Lab Results - Last 24 Hours (Table) 10/19/23 10/19/23 10/20/23 Range/Units 16:40 20:39 00:28 Sodium (137-145) mmol/L Chloride (98-107) mmol/L Carbon Dioxide (22-30) mmol/L Creatinine (0.66-1.25) mg/dL Glucose (74-99) mg/dL POC Glucose (mg/dL) 127 H 119 H 115 H (70-110) mg/dL Calcium (8.4-10.2) mg/dL Total Protein (6.3-8.2) g/dL Albumin (3.5-5.0) g/dL 10/20/23 10/20/23 10/20/23 Range/Units 04:12 05:50 11:14 Sodium 135 L (137-145) mmol/L Chloride 109 H (98-107) mmol/L Carbon Dioxide 21 L (22-30) mmol/L Creatinine 0.57 L (0.66-1.25) mg/dL Glucose 121 H (74-99) mg/dL POC Glucose (mg/dL) 132 H 133 H (70-110) mg/dL Calcium 8.0 L (8.4-10.2) mg/dL Total Protein 5.1 L (6.3-8.2) g/dL Albumin 2.3 L (3.5-5.0) g/dL Assessment and Plan (1) Leukocytosis Current Visit: Yes Status: Acute Code(s): D72.829 - ELEVATED WHITE BLOOD CELL COUNT, UNSPECIFIED SNOMED Code(s): 606650563 (2) Ileus Current Visit: Yes Status: Acute Code(s): K56.7 - ILEUS, UNSPECIFIED SNOMED Code(s): 897154237 (3) MRSA (methicillin resistant staph aureus) culture positive Current Visit: Yes Status: Acute Code(s): Z22.322 - CARRIER OR SUSPECTED CARRIER OF METHICILLIN RESIS STAPH SNOMED Code(s): 901723236 Plan: 1patient presented hospital with sepsis in this patient who did have an elevated white count tachycardia source likely abdominal pain this patient did have predominantly abdominal symptoms with abdominal pain and vomiting CT has been suggestive of ileus/obstruction and will likely need to cover for the enteric gram-negative both aerobes and anaerobes 2- cultures from the [facility] are growing MRSA as well as Enterococcus 3-patient is status post extensive abdominal surgery did not mention any perforation or abscess no cultures 4- patient to continue with vancomycin and Unasyn, still having issues with vomiting and persistent abdominal pain await further recommendation from surgical team Dictation was produced using [employer] dictation software. please excuse any grammatical, word or spelling errors. Time with Patient: Less than 30
[2023-10-20 20:15] LABS: Glucose,Whole Blood 142 mg/dL (70-110)
--- NOTE | 2023-10-20 21:23 | XR ---
EXAMINATION TYPE: XR chest 1V portable DATE OF EXAM: 10/20/2023 COMPARISON: 10/13/2023 HISTORY: Check NG tube placement TECHNIQUE: Single frontal view of the chest is obtained. FINDINGS: The NG tube is folded upon itself and the tip is in the proximal esophagus. There is a Mediport catheter tip in the SVC/RA junction. There is a left sided PICC line in the SVC/R A junction There is interval development of a small right lung base opacity likely combination of small pleural effusion and atelectasis. The left lung is clear. There is no pneumothorax. The heart and pulmonary vasculature are normal. IMPRESSION: 1. NG tube folded upon itself within the esophagus. The tip of the tube appears to be in the proximal esophagus. 2. Development of a small right lung opacity as described above. Findings consistent with development of acute cardiopulmonary disease. 3. Mediport catheter and left PICC line in the SVC/RA junction.
--- NOTE | 2023-10-20 23:05 | XR ---
EXAMINATION TYPE: XR chest 1V portable DATE OF EXAM: 10/20/2023 CLINICAL HISTORY: NG tube placement. TECHNIQUE: Single AP portable upright view of the chest is obtained. COMPARISON: Chest x-ray from earlier today FINDINGS: Stable right subclavian Mediport catheter. Stable left-sided PICC line. Persistent coiled nasogastric tube. Persistent right basilar opacity. Left lung remains clear. Cardiac silhouette size remains within normal limits. Osseous structures are intact. IMPRESSION: 1. Persistent abnormal coil positioning of nasogastric tube requiring another attempted replacement/r epositioning. 2. Persistent patchy right basilar atelectasis and or developing acute infiltrate.
[2023-10-21 00:07] LABS: Glucose,Whole Blood 138 mg/dL (70-110)
[2023-10-21] MEDS: ONDANSETRON 4 MG/2 ML VIAL IVP PRN (03:29)
[2023-10-21] MEDS: MVI, ADULT NO.4 WITH VIT K 10 ML, TRACE (CONC-1ML/DOSE) 1 ML, POTASSIUM ACETATE 20 MEQ,... IV SCH (03:30)
[2023-10-21 05:30] LABS: Glucose,Whole Blood 168 mg/dL (70-110)
[2023-10-21 07:04] LABS: African American GFR (CKD) >90 (>60 ml/min/1.73 sqM); Anion Gap 6 mmol/L; Blood Urea Nitrogen 17 mg/dL (9-20); Calcium 7.8 mg/dL (8.4-10.2); Carbon Dioxide 24 mmol/L (22-30); Chloride 106 mmol/L (98-107); Glucose 135 mg/dL (74-99); Magnesium 1.7 mg/dL (1.6-2.3); Non-African American GFR(CKD) >90 (>60 ml/min/1.73 sqM); Phosphorus 3.8 mg/dL (2.5-4.5); Sodium 136 mmol/L (137-145)
[2023-10-21 08:09] LABS: Potassium 3.7 mmol/L (3.5-5.1)
[2023-10-21 11:29] LABS: Glucose,Whole Blood 152 mg/dL (70-110)
--- NOTE | 2023-10-21 15:28 | P.PN ---
Subjective Progress Note Date: 10/21/23 CHIEF COMPLAINT: Recurrent small bowel obstruction HISTORY OF PRESENT ILLNESS: Patient postop day #5 status post open exploratory laparotomy with lysis of adhesions, excision of small bowel tumor x 3 closure of decompressive enterostomy, drainage of abdominal ascites and partial omentectomy. Patient had vomiting during the night. He was made NPO. They attempted [address] NG tube. Patient started to have nosebleeds. An NG tube was not placed. He is having flatus. No bowel movement. Abdomen reduced elena distended. Afebrile. Sodium 136 potassium 3.7 PHYSICAL EXAM: VITAL SIGNS: Reviewed GENERAL: Well-developed in no acute distress. HEENT: No sclera icterus. Extraocular movements grossly intact. Moist buccal mucosa. Head is atraumatic, normocephalic. Hears conversational speech. No nasal drainage. NECK: Supple without lymphadenopathy. CHEST: Non-labored respirations and equal bilateral excursions. CARDIOVASCULAR: Palpable 2+ radial pulses. ABDOMEN: Distended. Diffuse tenderness. Prevana wound VAC intact MUSCULOSKELETAL: No clubbing or cyanosis. NEUROLOGIC: No focal or lateralizing signs. Cranial nerves II through XII grossly intact. PSYCH: Appropriate affect. Alert and oriented to person, place and time. SKIN: Well perfused. Good skin turgor. ASSESSMENT: 1. Recurrent small bowel obstruction 2. History of mandibular cancer status post chemoradiation 3. Severe protein malnutrition 4. Underweight BMI 16.5 5. Recent history of small bowel perforation 6. History of alcohol abuse disorder 7. MRSA infection 8. History of pulmonary embolism 9. Bowel obstruction due to adhesive band disease/peritoneal adhesions 10. Retroperitoneal mass, 4 x 1 cm, left side 11. Postoperative ileus PLAN: -Keep patient n.p.o. -Encourage patient to ambulate -Continue TPN for nutrition support -Continue Reglan -Continue antibiotics -DVT prophylaxis Lovenox Physician Senior Quality Assurance Analyst note has been reviewed by physician. Signing provider agrees with the documented findings, assessment, and plan of care. Objective - Vital Signs Vital signs: Vital Signs Temp 97.9 F 10/21/23 14:48 Pulse 78 10/21/23 14:48 Resp 17 10/21/23 14:48 BP 156/88 10/21/23 14:48 Pulse Ox 100 10/21/23 14:48 FiO2 Intake & Output 10/20/23 10/21/23 10/21/23 18:59 06:59 18:59 Intake Total 1757 420 Output Total 625 900 325 Balance 1132 -480 -325 Weight 46.3 kg Intake: Intake, IV Titration 1517 Amount Ampicillin-Sulbactam 3 gm 200 In Sodium Chloride 0.9% 100 ml @ 200 mls/hr IVPB Q6H [facility] Rx#:[id number] Fat Emulsion 20% 250 ml 126 In Empty Bag 1 bag @ 21 mls/hr IV TuSa@0900 [facility] Rx#:[id number] Mvi, Adult No.4 with Vit 405 K 10 ml Trace (Conc-1Ml/ Dose) 1 ml Potassium Acetate 20 meq Sodium Acetate 14 meq Magnesium Sulfate gm 0.5 gm In Amino Acid 5%-D15w+Lytes* E* 1,000 ml @ 45 mls/hr IV .[id number] [facility] Rx#: [id number] Mvi, Adult No.4 with Vit 186 K 10 ml Trace (Conc-1Ml/ Dose) 1 ml Potassium Acetate 20 meq Sodium Acetate 14 meq Magnesium Sulfate gm 0.5 gm In Amino Acid 5%-D15w+Lytes* E* 1,000 ml @ 62 mls/hr IV .[id number] [facility] Rx#: [id number] Sodium Chloride 0.9% 1, 600 000 ml @ 50 mls/hr IV . Q20H [facility] Rx#:[id number] Oral 240 420 Output: Urine 425 325 Emesis 200 900 Other: Voiding Method Toilet Toilet Urinal Urinal # Voids 4 1 - Labs CBC & Chem 7: 10/19/23 06:35 10/21/23 05:51 Labs: Abnormal Lab Results - Last 24 Hours (Table) 10/20/23 10/20/23 10/21/23 Range/Units 16:18 20:14 00:05 Sodium (137-145) mmol/L Creatinine (0.66-1.25) mg/dL Glucose (74-99) mg/dL POC Glucose (mg/dL) 148 H 142 H 138 H (70-110) mg/dL Calcium (8.4-10.2) mg/dL 10/21/23 10/21/23 10/21/23 Range/Units 05:27 05:51 11:28 Sodium 136 L (137-145) mmol/L Creatinine 0.55 L (0.66-1.25) mg/dL Glucose 135 H (74-99) mg/dL POC Glucose (mg/dL) 168 H 152 H (70-110) mg/dL Calcium 7.8 L (8.4-10.2) mg/dL
--- NOTE | 2023-10-21 15:31 | P.PN ---
Subjective Progress Note Date: 10/21/23 Principal diagnosis: Reason for follow-up is fever/ileus/obstruction Patient is a 43-year-old -[place] male past medical history significant for right-sided jaw cancer for the patient be treated with chemoradiation therapy, patient also have a history of alcohol abuse possible acute and chronic pancreatitis patient recently did have a prolonged hospital stay for bowel obstruction and this patient who did have a perforated small bowel and status post resection on 09/06/2023 did have prolonged ileus, now presenting back to the hospital abdominal pain and vomiting has been diagnosed with ileus/obstruction.Patient is status post open expiratory laparotomy with lysis o f adhesion excision of small bowel tumor x 3 closure of decompressive enterostomy and drainage of abdominal ascites completed on 10/16/2023. On today's evaluation that is 10/21/2023,the patient remains to be afebrile, patient is on room air not requiring supplemental oxygen and denies any shortness of breath no chest pain or cough.Patient is still complaining of nausea but no vomiting did not have any bowel movement still complaining of abdominal pain. Patient did have a creatinine 0.55 no CBC was done today Objective - Vital Signs Vital signs: Vital Signs Temp 97.9 F 10/21/23 14:48 Pulse 78 10/21/23 14:48 Resp 17 10/21/23 14:48 BP 156/88 10/21/23 14:48 Pulse Ox 100 10/21/23 14:48 FiO2 Intake & Output 10/20/23 10/21/23 10/21/23 18:59 06:59 18:59 Intake Total 1757 420 Output Total 625 900 325 Balance 1132 -480 -325 Weight 46.3 kg Intake: Intake, IV Titration 1517 Amount Ampicillin-Sulbactam 3 gm 200 In Sodium Chloride 0.9% 100 ml @ 200 mls/hr IVPB Q6H [facility] Rx#:[id number] Fat Emulsion 20% 250 ml 126 In Empty Bag 1 bag @ 21 mls/hr IV TuSa@0900 [facility] Rx#:[id number] Mvi, Adult No.4 with Vit 405 K 10 ml Trace (Conc-1Ml/ Dose) 1 ml Potassium Acetate 20 meq Sodium Acetate 14 meq Magnesium Sulfate gm 0.5 gm In Amino Acid 5%-D15w+Lytes* E* 1,000 ml @ 45 mls/hr IV .[id number] [facility] Rx#: [id number] Mvi, Adult No.4 with Vit 186 K 10 ml Trace (Conc-1Ml/ Dose) 1 ml Potassium Acetate 20 meq Sodium Acetate 14 meq Magnesium Sulfate gm 0.5 gm In Amino Acid 5%-D15w+Lytes* E* 1,000 ml @ 62 mls/hr IV .[id number] [facility] Rx#: [id number] Sodium Chloride 0.9% 1, 600 000 ml @ 50 mls/hr IV . Q20H [facility] Rx#:[id number] Oral 240 420 Output: Urine 425 325 Emesis 200 900 Other: Voiding Method Toilet Toilet Urinal Urinal # Voids 4 1 - Exam GENERAL DESCRIPTION: Middle-age male lying in bed in no distress RESPIRATORY SYSTEM: Unlabored breathing , decreased breath sounds at bases HEART: S1 S2 regular rate and rhythm , ABDOMEN: Soft , mild distention and tenderness EXTREMITIES: No edema feet - Labs CBC & Chem 7: 10/19/23 06:35 10/21/23 05:51 Labs: Abnormal Lab Results - Last 24 Hours (Table) 10/20/23 10/20/23 10/21/23 Range/Units 16:18 20:14 00:05 Sodium (137-145) mmol/L Creatinine (0.66-1.25) mg/dL Glucose (74-99) mg/dL POC Glucose (mg/dL) 148 H 142 H 138 H (70-110) mg/dL Calcium (8.4-10.2) mg/dL 10/21/23 10/21/23 10/21/23 Range/Units 05:27 05:51 11:28 Sodium 136 L (137-145) mmol/L Creatinine 0.55 L (0.66-1.25) mg/dL Glucose 135 H (74-99) mg/dL POC Glucose (mg/dL) 168 H 152 H (70-110) mg/dL Calcium 7.8 L (8.4-10.2) mg/dL Assessment and Plan (1) Leukocytosis Current Visit: Yes Status: Acute Code(s): D72.829 - ELEVATED WHITE BLOOD CELL COUNT, UNSPECIFIED SNOMED Code(s): 441640088 (2) Ileus Current Visit: Yes Status: Acute Code(s): K56.7 - ILEUS, UNSPECIFIED SNOMED Code(s): 925034176 (3) MRSA (methicillin resistant staph aureus) culture positive Current Visit: Yes Status: Acute Code(s): Z22.322 - CARRIER OR SUSPECTED CARRIER OF METHICILLIN RESIS STAPH SNOMED Code(s): 578049577 Plan: 1patient presented hospital with sepsis in this patient who did have an elevated white count tachycardia source likely abdominal pain this patient did have predominantly abdominal symptoms with abdominal pain and vomiting CT has been suggestive of ileus/obstruction and will likely need to cover for the enteric gram-negative both aerobes and anaerobes 2- cultures from the DEBORA are growing MRSA as well as Enterococcus 3-patient is status post extensive abdominal surgery did not mention any perforation or abscess no cultures 4- patient can have problem with the ileus remains to be on TPN, patient to continue with vancomycin and Unasyn, surgery is following the patient closely Dictation was produced using Yub dictation software. please excuse any grammatical, word or spelling errors. Time with Patient: Less than 30
[2023-10-21 16:43] LABS: Glucose,Whole Blood 133 mg/dL (70-110)
--- NOTE | 2023-10-21 17:50 | P.PN ---
Subjective Progress Note Date: 10/21/23 Hospital course: Patient is a 42-year-old male with a past medical history of chronic pancreatitis, alcoholism, history of a pulmonary emboli, right-sided jaw cancer status post chemo/radiation treatment, GERD with erosive esophagitis, gastritis, and recent hospitalization from 09/04/2023 through 09/18/2023 for small bowel obstruction status post perforation resulting in emergent small bowel resection with [id number] duodenojejunostomy 09/06/2023 complicated by post operative ileus. He completed multiple days of IV antibiotics and discharged home on PO Augmentin and DEBORA drain. He presented to the emergency department on 10/09/2023 with a chief complaint of increased abdominal pain, abdominal distention and multiple episodes of bilious vomiting. Upon arrival in the emergency department, patient underwent full evaluation. Vital signs upon arrival showed BP 145/95, HR 101, RR 18, T 90 7.8F, 100% on RA. Labs were completed and revie wed CBC showed WBC count 18.5, hemoglobin 10.6, hematocrit 33.2, MCV 79, platelet 634. CMP showed sodium 134, bicarb 20, creatinine 0.48, glucose 167, albumin 2.9. Lipase 473. Lactic acid 1.4. CT abdomen and pelvis was completed revealing diffuse SB dilation with bowel containing gas, feces, and fluid suspicious for ileus versus small bowel obstruction, drainage catheter in place, and chronic pancreatitis changes. Patient reported having bowel movements despite abdominal distention and worsening pain. Patient was admitted to general surgery team and [facility] was consulted for medical management of this patient throughout hospitalization. DEBORA drain cultures positive for MRSA. Patient failed conservative management of small bowel obstruction and was taken for open laparotomy with lysis of adhesions and resection of small bowel tumor with wound VAC placement on 10/16/2023. Pathology sample was sent to lab for analysis of small bowel tumors. Physical exam: Patient seen and fully evaluated at bedside this morning. He was again sitting up in the chair. He reports 3 additional episodes of nausea and vomiting overnight. Patient does report passing flatus and continues to deny bowel movement at this time. Patient reports abdomen feels a little more distended this morning though reports pain remains controlled with Dilaudid HERBICIDE SPRAYER. Vital signs reviewed and stable. General: Nontoxic, no acute distress and appears older than stated age. Thin and frail. Derm: Skin warm and dry, normal coloration for ethnicity. Head: Atraumatic, normocephalic and symmetric. Eyes: EOMs intact, no lid lag, and anicteric sclera Mouth: no lip lesions, mucus membranes moist Cardiovascular: regular rate and rhythm with normal S1S2, no murmur, positive posterior tibial pulses bilaterally, and cap refill < 2 seconds. Lungs: Respirations even, regular, and unlabored on room air. Lungs CTA bilaterally, no rhonchi, no rales, no wheezing, and no accessory muscle usage. Abdominal: Abdomen distended. Postsurgical incision midline with wound VAC in place. Ext: ROM intact. No gross muscle atrophy, no edema, no contractures Neuro: Speech clear, face symmetrical and CN II-XII grossly intact with no noted focal neuro deficits Psych: Alert and oriented to person, place, time, and situation. Appropriate and pleasant affect. Assessment and Plan of Care: MRSA infection Small bowel obstruction status post open laparotomy with lysis of adhesions and resection of small bowel tumor Abdominal pain secondary to above History of GERD with erosive esophagitis History of gastritis Elevated lipase with history of chronic pancreatitis Severe protein calorie malnutrition with BMI of 16.9 kg/m -General surgery following, took patient for open laparotomy with lysis of adhesions and resection of small bowel tumor with wound VAC placement on 10/16/2023 -Symptomatic care and pain management. Zofran 4 mg IVP every 8 hours as needed for nausea and/or vomiting -General surgery started patient on Dilaudid HERBICIDE SPRAYER for pain management. -Patient started on Reglan 10 mg IVP every 6 hours scheduled for persistent nausea and to increase bowel motility. -Continue Protonix 40 mg IVP daily -Dietitian following managing TPN and lipids. -DEBORA drain culture was positive for MRSA and group D enterococcus faecalis. -Continue Unasyn 3g IV every 6 hours and vancomycin 1000 mg every 16 hours. Continue to monitor vancomycin trough and renal function closely for signs of vancomycin associated renal toxicity. -Blood cultures showed no growth -Pathology sample was sent to lab for analysis of small bowel tumors and currently pending. Acute postoperative blood loss anemia Hemoglobin stable now 8.7. Will continue to monitor closely with repeat morning CBC and transfuse if needed for hemoglobin less than 7. Hypokalemia, resolved and pt is on TPN/Lipids Hypomagnesemia, resolved and pt is on TPN/Lipids Thrombocytosis Thrombocytosis resolved. Platelet count 364. History of small bowel perforation status post emergent small bowel resection with [id number] duodenojejunostomy 09/06/2023 Data reviewed: Vital signs reviewed. Blood pressure 151/91, heart rate 90, respiratory rate 17, temp 97.9 F, and SpO2 of 100% on room air. Morning labs reviewed. BMP unremarkable. Magnesium slightly low at 1.7 and patient is receiving TPN with lipids, magnesium will be replaced with TPN. CODE STATUS: FULL CODE DVT Prophylaxis: Lovenox SQ GI Prophylaxis: Protonix Thank you for allowing us to participate in the care of this pleasant patient. Do not hesitate to contact us with questions. Someone can be reached from the [facility] hospitalist group all hours of the day at [phone] or via [employer]. Patient was seen independently by Nurse Pracitioner. This document was prepared using [email or web address] dictation software. Please allow for errors in cad designer, while rare they do occur. Objective - Vital Signs Vital signs: Vital Signs Temp 97.9 F 10/21/23 07:38 Pulse 90 10/21/23 07:38 Resp 17 10/21/23 07:38 BP 151/91 10/21/23 07:38 Pulse Ox 100 10/21/23 07:38 FiO2 Intake & Output 10/20/23 10/21/23 10/21/23 18:59 06:59 18:59 Intake Total 1757 420 Output Total 625 900 100 Balance 1132 -480 -100 Intake: Intake, IV Titration 1517 Amount Ampicillin-Sulbactam 3 gm 200 In Sodium Chloride 0.9% 100 ml @ 200 mls/hr IVPB Q6H [facility] Rx#:[id number] Fat Emulsion 20% 250 ml 126 In Empty Bag 1 bag @ 21 mls/hr IV TuSa@0900 [facility] Rx#:[id number] Mvi, Adult No.4 with Vit 405 K 10 ml Trace (Conc-1Ml/ Dose) 1 ml Potassium Acetate 20 meq Sodium Acetate 14 meq Magnesium Sulfate gm 0.5 gm In Amino Acid 5%-D15w+Lytes* E* 1,000 ml @ 45 mls/hr IV .[id number] [facility] Rx#: [id number] Mvi, Adult No.4 with Vit 186 K 10 ml Trace (Conc-1Ml/ Dose) 1 ml Potassium Acetate 20 meq Sodium Acetate 14 meq Magnesium Sulfate gm 0.5 gm In Amino Acid 5%-D15w+Lytes* E* 1,000 ml @ 62 mls/hr IV .[id number] [facility] Rx#: [id number] Sodium Chloride 0.9% 1, 600 000 ml @ 50 mls/hr IV . Q20H [facility] Rx#:[id number] Oral 240 420 Output: Urine 425 100 Emesis 200 900 Other: Voiding Method Toilet Urinal # Voids 4 - Labs CBC & Chem 7: 10/19/23 06:35 10/21/23 05:51 Labs: Abnormal Lab Results - Last 24 Hours (Table) 10/20/23 10/20/23 10/20/23 Range/Units 11:14 16:18 20:14 Sodium (137-145) mmol/L Creatinine (0.66-1.25) mg/dL Glucose (74-99) mg/dL POC Glucose (mg/dL) 133 H 148 H 142 H (70-110) mg/dL Calcium (8.4-10.2) mg/dL 10/21/23 10/21/23 10/21/23 Range/Units 00:05 05:27 05:51 Sodium 136 L (137-145) mmol/L Creatinine 0.55 L (0.66-1.25) mg/dL Glucose 135 H (74-99) mg/dL POC Glucose (mg/dL) 138 H 168 H (70-110) mg/dL Calcium 7.8 L (8.4-10.2) mg/dL
--- NOTE | 2023-10-21 20:04 | CDI ---
Documentation Clarification Form Date: 10/21/2023 07:27:00 PM From: Mara Christie RN,CCDS Phone: [phone] Admit Date: 10/08/2023 07:13:00 PM Patient Name: Adilson Otero Visit Number: [id number] Discharge Date: ATTENTION: The Clinical Documentation Specialists (CDI) and [facility] Coding Staff appreciate your assistance in clarifying documentation. Please respond to the clarification below the line at the bottom and electronically sign. The CDI & [facility] Coding staff will review the response and follow-up if needed. Please note: Queries are made part of the Legal Health Record. If you have any questions, please contact the author of this message via ITS. Dr. Leta Easton The patient has sepsis documented in the ID consult and progress notes starting on 10/09/23. Based on this information and the findings below, is there an additional diagnosis that is clinically appropriate for this patient? History/Risk Factors: Pulmonary Embolus, R side jaw cancer diagnosed August 2020/ treated with chemo/radiation. Former smoker Clinical Indicators: 43-year-old male present to ED with increasing abdominal pain and distention. He has felt nauseated along with vomiting. he did have a small bowel movement. 10/07 WBC 18.5 Neutrophils 16.5 10/08 WBC 11.87 Neutrophils 10.05 Lactic acid: 1.4 Blood cultures: (10/07) No Growth after 5 days 10/07 VS 145/95 101 18 97.8 100% RA ID Consult: (10/08) patient presented hospital with sepsis in this patient who did have an elevated white count tachycardia source likely abdominal pain this patient did have predominantly abdominal symptoms with abdominal pain and vomiting CT has been suggestive of ileus/obstruction and will likely need to cover for the enteric gram-negative both aerobes and anaerobes. Treatment: Zosyn 3.375 GM Q 8 HRS Vancomycin HCl 1,000 MG IVPB Once PTD Vancomycin HCl 1,000 MG IVPB Q 8 HRS 10/10-10/11 Q 12 HRS 10/11-10/13 Q 16 HRS 10/13- 10/20 .9NS 1,000 Bolus 10/07 Is there an additional diagnosis that is clinically appropriate for this patient? [ ] Sepsis, present on admission [ ] No additional diagnosis/not clinically significant [ ] Other, please specify [ ] Unable to determine SIRS Criteria: 2 or more of the following may indicate SIRS Temperature < 96.8F (36C) or > 101.0F (38.3C) Heart Rate > 90 bpm Respiratory Rate > 20 breaths/min or PaCO2 < 32 mmHg White Blood Cell Count > 12,000 or < 4,000 cells/mm3 or > 10% bands (Template Last Reviewed: July 2022) [ X ] Other, please specify_ No sepsis. Presentation includes dehydration. I do not agree with sepsis diagnosis. Christian 11/01/23 0908 [ MTDD
[2023-10-21 23:50] LABS: Glucose,Whole Blood 144 mg/dL (70-110)
[2023-10-22 05:45] LABS: Glucose,Whole Blood 129 mg/dL (70-110)
[2023-10-22 05:49] LABS: African American GFR (CKD) >90 (>60 ml/min/1.73 sqM); Anion Gap 5 mmol/L; Blood Urea Nitrogen 19 mg/dL (9-20); Calcium 7.7 mg/dL (8.4-10.2); Carbon Dioxide 25 mmol/L (22-30); Chloride 105 mmol/L (98-107); Glucose 99 mg/dL (74-99); Magnesium 1.7 mg/dL (1.6-2.3); Non-African American GFR(CKD) >90 (>60 ml/min/1.73 sqM); Phosphorus 3.8 mg/dL (2.5-4.5); Potassium 4.3 mmol/L (3.5-5.1); Sodium 135 mmol/L (137-145)
[2023-10-22] MEDS: VANCOMYCIN TROUGH DUE 1 EACH MISC MISCELLANE ONE (06:15)
[2023-10-22 08:22] LABS: HCT 25.3 % (39.6-50.0); HGB 7.8 g/dL (13.0-17.0); MCH 23.3 pg (27.0-32.0); MCHC 30.8 g/dL (32.0-37.0); MCV 75.5 FL (80.0-97.0); Mean Platelet Volume 9.3 FL (9.5-12.2); NRBC Per 100 WBC 0 X 10*3/uL (0.00-0.01); Platelet Count 414 X 10*3/uL (140-440); RBC 3.35 X 10*6/uL (4.40-5.60); RDW 17.4 % (11.5-14.5); WBC 6.77 X 10*3/uL (4.50-10.00)
[2023-10-22] MEDS: [UNRECOGNIZED DRUG - REMARK] IV SCH (10:39)
[2023-10-22 11:54] LABS: Glucose,Whole Blood 93 mg/dL (70-110)
[2023-10-22] MEDS: LACTULOSE 20 GM/30 ML CUP PO SCH (12:34)
--- NOTE | 2023-10-22 14:56 | P.PN ---
Subjective Progress Note Date: 10/22/23 Hospital course: Patient is a 42-year-old male with a past medical history of chronic pancreatitis, alcoholism, history of a pulmonary emboli, right-sided jaw cancer status post chemo/radiation treatment, GERD with erosive esophagitis, gastritis, and recent hospitalization from 09/04/2023 through 09/18/2023 for small bowel obstruction status post perforation resulting in emergent small bowel resection with gwvi-uj-ppge duodenojejunostomy 09/06/2023 complicated by post operative ileus. He completed multiple days of IV antibiotics and discharged home on PO Augmentin and DEBORA drain. He presented to the emergency department on 10/09/2023 with a chief complaint of increased abdominal pain, abdominal distention and multiple episodes of bilious vomiting. Upon arrival in the emergency department, patient underwent full evaluation. Vital signs upon arrival showed BP 145/95, HR 101, RR 18, T 90 7.8F, 100% on RA. Labs were completed and revie wed CBC showed WBC count 18.5, hemoglobin 10.6, hematocrit 33.2, MCV 79, platelet 634. CMP showed sodium 134, bicarb 20, creatinine 0.48, glucose 167, albumin 2.9. Lipase 473. Lactic acid 1.4. CT abdomen and pelvis was completed revealing diffuse SB dilation with bowel containing gas, feces, and fluid suspicious for ileus versus small bowel obstruction, drainage catheter in place, and chronic pancreatitis changes. Patient reported having bowel movements despite abdominal distention and worsening pain. Patient was admitted to general surgery team and [facility] was consulted for medical management of this patient throughout hospitalization. DEBORA drain cultures positive for MRSA. Patient failed conservative management of small bowel obstruction and was taken for open laparotomy with lysis of adhesions and resection of small bowel tumor with wound VAC placement on 10/16/2023. Pathology sample was sent to lab for analysis of small bowel tumors. Physical exam: Patient seen and fully evaluated at bedside this morning. He was ambulating in souza with walker with physical therapy. Patient appears to be doing well this morning. He reports full resolution of nausea and vomiting and reports having a large bowel movement. Vital signs reviewed and stable. General: Nontoxic, no acute distress and appears older than stated age. Thin and frail. Derm: Skin warm and dry, normal coloration for ethnicity. Head: Atraumatic, normocephalic and symmetric. Eyes: EOMs intact, no lid lag, and anicteric sclera Mouth: no lip lesions, mucus membranes moist Cardiovascular: regular rate and rhythm with normal S1S2, no murmur, positive posterior tibial pulses bilaterally, and cap refill < 2 seconds. Lungs: Respirations even, regular, and unlabored on room air. Lungs CTA bilaterally, no rhonchi, no rales, no wheezing, and no accessory muscle usage. Abdominal: Abdomen distended. Postsurgical incision midline with wound VAC in place. Ext: ROM intact. No gross muscle atrophy, no edema, no contractures Neuro: Speech clear, face symmetrical and CN II-XII grossly intact with no noted focal neuro deficits Psych: Alert and oriented to person, place, time, and situation. Appropriate and pleasant affect. Assessment and Plan of Care: MRSA infection Recurrent small bowel obstruction requiring open laparotomy with lysis of adhesions and resection of small bowel tumor Retroperitoneal mass Postoperative ileus History of GERD with erosive esophagitis History of gastritis Elevated lipase with history of chronic pancreatitis Severe protein calorie malnutrition with BMI of 16.9 kg/m -General surgery following, took patient for open laparotomy with lysis of adhesions and resection of small bowel tumor with wound VAC placement on 10/16/2023 -Symptomatic care and pain management. Zofran 4 mg IVP every 8 hours as needed for nausea and/or vomiting -General surgery started patient on Dilaudid ASSISTANT CHILD CARE TEACHER for pain management. -Patient started on Reglan 10 mg IVP every 6 hours scheduled for persistent nausea and to increase bowel motility. -Continue Protonix 40 mg IVP daily -Dietitian following managing TPN and lipids. -DEBORA drain culture was positive for MRSA and group D enterococcus faecalis. -Continue Unasyn 3g IV every 6 hours and vancomycin 1000 mg every 16 hours. Continue to monitor vancomycin trough and renal function closely for signs of vancomycin associated renal toxicity. -Blood cultures showed no growth -Pathology sample was sent to lab for analysis and per pathology report, negative for histopathologic changes and negative for malignancy. Acute postoperative blood loss anemia on anemia of chronic disease Hemoglobin stable 7.8. Will continue to monitor closely with repeat morning CBC and transfuse if needed for hemoglobin less than 7. Hypokalemia, resolved and pt is on TPN/Lipids Hypomagnesemia, resolved and pt is on TPN/Lipids Thrombocytosis, resolved History of small bowel perforation status post emergent small bowel resection with tlej-sb-dhwf duodenojejunostomy 09/06/2023 Data reviewed: Vital signs reviewed. Blood pressure 151/92, heart rate 82, respiratory rate 17, temp 97.8 F, and SpO2 of 99% on room air. Morning labs reviewed. CBC showing stable microcytic anemia with hemoglobin of 7.8. BMP unremarkable. Magnesium slightly low at 1.7 and patient is receiving TPN with lipids, magnesium will be replaced with TPN. CODE STATUS: FULL CODE DVT Prophylaxis: Lovenox SQ GI Prophylaxis: Protonix Thank you for allowing us to participate in the care of this pleasant patient. Do not hesitate to contact us with questions. Someone can be reached from the [facility] hospitalist group all hours of the day at [phone] or via [employer]. Patient was seen independently by Nurse Pracitioner. This document was prepared using [employer] dictation software. Please allow for errors in heavy mobile equipment repairer, while rare they do occur. Objective - Vital Signs Vital signs: Vital Signs Temp 97.8 F 10/22/23 06:10 Pulse 82 10/22/23 06:10 Resp 17 10/22/23 06:10 BP 151/92 10/22/23 06:10 Pulse Ox 99 10/22/23 06:10 FiO2 Intake & Output 10/21/23 10/22/23 10/22/23 18:59 06:59 18:59 Intake Total 2899.767 Output Total 750 1050 250 Balance 2149.767 -1050 -250 Weight 46.3 kg Intake: Intake, IV Titration 2899.767 Amount Ampicillin-Sulbactam 3 gm 100 In Sodium Chloride 0.9% 100 ml @ 200 mls/hr IVPB Q6H [facility] Rx#:[id number] Fat Emulsion 20% 250 ml 252 In Empty Bag 1 bag @ 21 mls/hr IV TuSa@0900 [facility] Rx#:[id number] Mvi, Adult No.4 with Vit 1697.767 K 10 ml Trace (Conc-1Ml/ Dose) 1 ml Potassium Acetate 20 meq Sodium Acetate 14 meq Magnesium Sulfate gm 0.5 gm In Amino Acid 5%-D15w+Lytes* E* 1,000 ml @ 62 mls/hr IV .[id number] [facility] Rx#: [id number] Sodium Chloride 0.9% 1, 600 000 ml @ 50 mls/hr IV . Q20H [facility] Rx#:[id number] Vancomycin 1,000 mg In 250 Sodium Chloride 0.9% 250 ml @ 125 mls/hr IVPB Q16H [facility] Rx#:[id number] Oral 0 Output: Urine 750 1050 250 Other: Voiding Method Toilet Toilet Urinal Urinal # Voids 1 - Labs CBC & Chem 7: 10/22/23 04:44 10/22/23 04:44 Labs: Abnormal Lab Results - Last 24 Hours (Table) 10/21/23 10/21/23 10/21/23 Range/Units 11:28 16:43 23:49 RBC (4.40-5.60) X 10*6/uL Hgb (13.0-17.0) g/dL Hct (39.6-50.0) % MCV (80.0-97.0) FL MCH (27.0-32.0) pg MCHC (32.0-37.0) g/dL RDW (11.5-14.5) % MPV (9.5-12.2) FL Sodium (137-145) mmol/L Creatinine (0.66-1.25) mg/dL POC Glucose (mg/dL) 152 H 133 H 144 H (70-110) mg/dL Calcium (8.4-10.2) mg/dL 10/22/23 10/22/23 10/22/23 Range/Units 04:44 04:44 05:44 RBC 3.35 L (4.40-5.60) X 10*6/uL Hgb 7.8 L (13.0-17.0) g/dL Hct 25.3 L (39.6-50.0) % MCV 75.5 L (80.0-97.0) FL MCH 23.3 L (27.0-32.0) pg MCHC 30.8 L (32.0-37.0) g/dL RDW 17.4 H (11.5-14.5) % MPV 9.3 L (9.5-12.2) FL Sodium 135 L (137-145) mmol/L Creatinine 0.56 L (0.66-1.25) mg/dL POC Glucose (mg/dL) 129 H (70-110) mg/dL Calcium 7.7 L (8.4-10.2) mg/dL
--- NOTE | 2023-10-22 16:52 | P.PN ---
Subjective Progress Note Date: 10/22/23 CHIEF COMPLAINT: Recurrent small bowel obstruction HISTORY OF PRESENT ILLNESS: Patient postop day #6 status post open exploratory laparotomy with lysis of adhesions, excision of small bowel tumor x 3 closure of decompressive enterostomy, drainage of abdominal ascites and partial omentectomy. Patient had bowel movement this morning. Having flatus. Denies any nausea or vomiting. He reports that he is feeling better today. He is sitting up at bedside chair. Afebrile. WBC is down from 11.9-6.7 Hgb 7.8 platelets 414. PHYSICAL EXAM: VITAL SIGNS: Reviewed GENERAL: Well-developed in no acute distress. HEENT: No sclera icterus. Extraocular movements grossly intact. Moist buccal mucosa. Head is atraumatic, normocephalic. Hears conversational speech. No nasal drainage. NECK: Supple without lymphadenopathy. CHEST: Non-labored respirations and equal bilateral excursions. CARDIOVASCULAR: Palpable 2+ radial pulses. ABDOMEN: Less distended. Mild tenderness at incision site. Prevana wound VAC intact MUSCULOSKELETAL: No clubbing or cyanosis. NEUROLOGIC: No focal or lateralizing signs. Cranial nerves II through XII grossly intact. PSYCH: Appropriate affect. Alert and oriented to person, place and time. SKIN: Well perfused. Good skin turgor. ASSESSMENT: 1. Recurrent small bowel obstruction 2. History of mandibular cancer status post chemoradiation 3. Severe protein malnutrition 4. Underweight BMI 16.5 5. Recent history of small bowel perforation 6. History of alcohol abuse disorder 7. MRSA infection 8. History of pulmonary embolism 9. Bowel obstruction due to adhesive band disease/peritoneal adhesions 10. Retroperitoneal mass, 4 x 1 cm, left side 11. 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 Signing provider agrees with the documented findings, assessment, and plan of care. Objective - Vital Signs Vital signs: Vital Signs Temp 97.6 F 10/22/23 14:00 Pulse 80 10/22/23 14:00 Resp 16 10/22/23 14:00 BP 158/97 10/22/23 14:00 Pulse Ox 100 10/22/23 14:00 FiO2 Intake & Output 10/21/23 10/22/2310/21/24 18:59 06:59 18:59 Intake Total 2899.767 565 Output Total 750 1050 550 Balance 2149.767 -1050 15 Weight 46.3 kg Intake: Intake, IV Titration 2899.767 Amount Ampicillin-Sulbactam 3 gm 100 In Sodium Chloride 0.9% 100 ml @ 200 mls/hr IVPB Q6H [facility] Rx#:[id number] Fat Emulsion 20% 250 ml 252 In Empty Bag 1 bag @ 21 mls/hr IV TuSa@0900 [facility] Rx#:[id number] Mvi, Adult No.4 with Vit 1697.767 K 10 ml Trace (Conc-1Ml/ Dose) 1 ml Potassium Acetate 20 meq Sodium Acetate 14 meq Magnesium Sulfate gm 0.5 gm In Amino Acid 5%-D15w+Lytes* E* 1,000 ml @ 62 mls/hr IV .[id number] [facility] Rx#: [id number] Sodium Chloride 0.9% 1, 600 000 ml @ 50 mls/hr IV . Q20H [facility] Rx#:[id number] Vancomycin 1,000 mg In 250 Sodium Chloride 0.9% 250 ml @ 125 mls/hr IVPB Q16H [facility] Rx#:[id number] Oral 0 565 Output: Urine 750 1050 550 Other: Voiding Method Toilet Toilet Toilet Urinal Urinal Urinal # Voids 1 1 # Bowel Movements 1 - Labs CBC & Chem 7: 10/22/23 04:44 10/22/23 04:44 Labs: Abnormal Lab Results - Last 24 Hours (Table) 10/21/23 10/22/23 10/22/23 Range/Units 23:49 04:44 04:44 RBC 3.35 L (4.40-5.60) X 10*6/uL Hgb 7.8 L (13.0-17.0) g/dL Hct 25.3 L (39.6-50.0) % MCV 75.5 L (80.0-97.0) FL MCH 23.3 L (27.0-32.0) pg MCHC 30.8 L (32.0-37.0) g/dL RDW 17.4 H (11.5-14.5) % MPV 9.3 L (9.5-12.2) FL Sodium 135 L (137-145) mmol/L Creatinine 0.56 L (0.66-1.25) mg/dL POC Glucose (mg/dL) 144 H (70-110) mg/dL Calcium 7.7 L (8.4-10.2) mg/dL 10/22/23 Range/Units 05:44 RBC (4.40-5.60) X 10*6/uL Hgb (13.0-17.0) g/dL Hct (39.6-50.0) % MCV (80.0-97.0) FL MCH (27.0-32.0) pg MCHC (32.0-37.0) g/dL RDW (11.5-14.5) % MPV (9.5-12.2) FL Sodium (137-145) mmol/L Creatinine (0.66-1.25) mg/dL POC Glucose (mg/dL) 129 H (70-110) mg/dL Calcium (8.4-10.2) mg/dL
--- NOTE | 2023-10-22 17:59 | P.PN ---
Subjective Progress Note Date: 10/22/23 Principal diagnosis: Reason for follow-up is fever/ileus/obstruction Patient is a 43-year-old -E[place] male past medical history significant for right-sided jaw cancer for the patient be treated with chemoradiation therapy, patient also have a history of alcohol abuse possible acute and chronic pancreatitis patient recently did have a prolonged hospital stay for bowel obstruction and this patient who did have a perforated small bowel and status post resection on 09/06/2023 did have prolonged ileus, now presenting back to the hospital abdominal pain and vomiting has been diagnosed with ileus/obstruction.Patient is status post open expiratory laparotomy with lysis o f adhesion excision of small bowel tumor x 3 closure of decompressive enterostomy and drainage of abdominal ascites completed on 10/16/2023. On today's evaluation that is 10/22/2023, the patient continues to be afebrile, the patient is on room air and breathing comfortably, the Pt denies having any c hest pain or cough, the patient still complaining of abdominal pain but no further vomiting or bowel movement. Patient white count is 6.77, creatinine 0.56 Objective - Vital Signs Vital signs: Vital Signs Temp 97.6 F 10/22/23 14:00 Pulse 80 10/22/23 14:00 Resp 16 10/22/23 14:00 BP 158/97 10/22/23 14:00 Pulse Ox 100 10/22/23 14:00 FiO2 Intake & Output 10/21/23 10/22/23 10/22/23 18:59 06:59 18:59 Intake Total 2899.767 565 Output Total 750 1050 550 Balance 2149.767 -1050 15 Weight 46.3 kg Intake: Intake, IV Titration 2899.767 Amount Ampicillin-Sulbactam 3 gm 100 In Sodium Chloride 0.9% 100 ml @ 200 mls/hr IVPB Q6H [facility] Rx#:[id number] Fat Emulsion 20% 250 ml 252 In Empty Bag 1 bag @ 21 mls/hr IV TuSa@0900 [facility] Rx#:[id number] Mvi, Adult No.4 with Vit 1697.767 K 10 ml Trace (Conc-1Ml/ Dose) 1 ml Potassium Acetate 20 meq Sodium Acetate 14 meq Magnesium Sulfate gm 0.5 gm In Amino Acid 5%-D15w+Lytes* E* 1,000 ml @ 62 mls/hr IV .[id number] [facility] Rx#: [id number] Sodium Chloride 0.9% 1, 600 000 ml @ 50 mls/hr IV . Q20H [facility] Rx#:[id number] Vancomycin 1,000 mg In 250 Sodium Chloride 0.9% 250 ml @ 125 mls/hr IVPB Q16H [facility] Rx#:[id number] Oral 0 565 Output: Urine 750 1050 550 Other: Voiding Method Toilet Toilet Toilet Urinal Urinal Urinal # Voids 1 1 # Bowel Movements 1 - Exam GENERAL DESCRIPTION: Middle-age male lying in bed in no distress RESPIRATORY SYSTEM: Unlabored breathing , decreased breath sounds at bases HEART: S1 S2 regular rate and rhythm , ABDOMEN: Soft , mild distention and tenderness EXTREMITIES: No edema feet - Labs CBC & Chem 7: 10/22/23 04:44 10/22/23 04:44 Labs: Abnormal Lab Results - Last 24 Hours (Table) 10/21/23 10/21/23 10/22/23 Range/Units 16:43 23:49 04:44 RBC (4.40-5.60) X 10*6/uL Hgb (13.0-17.0) g/dL Hct (39.6-50.0) % MCV (80.0-97.0) FL MCH (27.0-32.0) pg MCHC (32.0-37.0) g/dL RDW (11.5-14.5) % MPV (9.5-12.2) FL Sodium 135 L (137-145) mmol/L Creatinine 0.56 L (0.66-1.25) mg/dL POC Glucose (mg/dL) 133 H 144 H (70-110) mg/dL Calcium 7.7 L (8.4-10.2) mg/dL 10/22/23 10/22/23 Range/Units 04:44 05:44 RBC 3.35 L (4.40-5.60) X 10*6/uL Hgb 7.8 L (13.0-17.0) g/dL Hct 25.3 L (39.6-50.0) % MCV 75.5 L (80.0-97.0) FL MCH 23.3 L (27.0-32.0) pg MCHC 30.8 L (32.0-37.0) g/dL RDW 17.4 H (11.5-14.5) % MPV 9.3 L (9.5-12.2) FL Sodium (137-145) mmol/L Creatinine (0.66-1.25) mg/dL POC Glucose (mg/dL) 129 H (70-110) mg/dL Calcium (8.4-10.2) mg/dL Assessment and Plan (1) Leukocytosis Current Visit: Yes Status: Acute Code(s): D72.829 - ELEVATED WHITE BLOOD CELL COUNT, UNSPECIFIED SNOMED Code(s): 136076450 (2) Ileus Current Visit: Yes Status: Acute Code(s): K56.7 - ILEUS, UNSPECIFIED SNOMED Code(s): 764101409 (3) MRSA (methicillin resistant staph aureus) culture positive Current Visit: Yes Status: Acute Code(s): Z22.322 - CARRIER OR SUSPECTED CARRIER OF METHICILLIN RESIS STAPH SNOMED Code(s): 503284564 Plan: 1patient presented hospital with sepsis in this patient who did have an elevated white count tachycardia source likely abdominal pain this patient did have predominantly abdominal symptoms with abdominal pain and vomiting CT has been suggestive of ileus/obstruction and will likely need to cover for the enteric gram-negative both aerobes and anaerobes 2- cultures from the DEBORA are growing MRSA as well as Enterococcus 3-patient is status post extensive abdominal surgery did not mention any perforation or abscess no cultures 4- patient continues to have problem with the ileus remains to be on TPN, patient is currently being treated with vancomycin and Unasyn, surgery is following the patient closely and monitor clinical course closely Dictation was produced using [employer] dictation software. please excuse any grammatical, word or spelling errors. Time with Patient: Less than 30
[2023-10-22 18:51] LABS: Glucose,Whole Blood 130 mg/dL (70-110)
[2023-10-22] MEDS: VANCOMYCIN 1,250 MG in SODIUM CHLORIDE 0.9% 250 ML IVPB SCH (22:20)
[2023-10-22 23:39] LABS: Glucose,Whole Blood 130 mg/dL (70-110)
[2023-10-23 05:52] LABS: Glucose,Whole Blood 128 mg/dL (70-110)
[2023-10-23 08:05] LABS: Basophils % (A) 1 %; Eosinophils # (A) 0.1 k/uL (0-0.7); Eosinophils % (A) 1 %; Lymphocytes % (A) 14 %; Monocytes # (A) 0.3 k/uL (0-1.0); Monocytes % (A) 5 %; Neutrophils # (A) 5.3 k/uL (1.3-7.7); Neutrophils % (A) 78 %
[2023-10-23] MEDS: MAGNESIUM SULFATE-D5W PMX 1 GM in DEXTROSE/WATER 1 100ML.BAG IVPB SCH (08:41)
[2023-10-23] MEDS: SIMETHICONE 40 MG/0.6 ML DROPS 2,000 MG/30 ML BOTTLE PO SCH (10:27)
[2023-10-23 11:35] LABS: Glucose,Whole Blood 168 mg/dL (70-110)
[2023-10-23 14:17] LABS: % Iron Saturation 9.94 (15.00-50.00)
--- NOTE | 2023-10-23 14:21 | P.PN ---
Subjective Progress Note Date: 10/23/23 Hospital course: Patient is a 42-year-old male with a past medical history of chronic pancreatitis, alcoholism, history of a pulmonary emboli, right-sided jaw cancer status post chemo/radiation treatment, GERD with erosive esophagitis, gastritis, and recent hospitalization from 09/04/2023 through 09/18/2023 for small bowel obstruction status post perforation resulting in emergent small bowel resection with [id number] duodenojejunostomy 09/06/2023 complicated by post operative ileus. He completed multiple days of IV antibiotics and discharged home on PO Augmentin and DEBORA drain. He presented to the emergency department on 10/09/2023 with a chief complaint of increased abdominal pain, abdominal distention and multiple episodes of bilious vomiting. Upon arrival in the emergency department, patient underwent full evaluation. Vital signs upon arrival showed BP 145/95, HR 101, RR 18, T 90 7.8F, 100% on RA. Labs were completed and revie wed CBC showed WBC count 18.5, hemoglobin 10.6, hematocrit 33.2, MCV 79, platelet 634. CMP showed sodium 134, bicarb 20, creatinine 0.48, glucose 167, albumin 2.9. Lipase 473. Lactic acid 1.4. CT abdomen and pelvis was completed revealing diffuse SB dilation with bowel containing gas, feces, and fluid suspicious for ileus versus small bowel obstruction, drainage catheter in place, and chronic pancreatitis changes. Patient reported having bowel movements despite abdominal distention and worsening pain. Patient was admitted to general surgery team and [facility] was consulted for medical management of this patient throughout hospitalization. DEBORA drain cultures positive for MRSA. Patient failed conservative management of small bowel obstruction and was taken for open laparotomy with lysis of adhesions and resection of small bowel tumor with wound VAC placement on 10/16/2023. Pathology sample was sent to lab for analysis of small bowel tumors. Physical exam: Patient seen and fully evaluated at bedside this morning. He again reports having episodes of nausea and vomiting overnight. He reports continuing to pass flatus and has had a total of 2 postoperative bowel movements since initial procedure completed 10/16/2023. He remains on Dilaudid [employer] for pain control. Currently denies having any nausea at this time. He continues to report mild postoperative pain and abdominal distention. Vital signs reviewed and stable. General: Nontoxic, no acute distress and appears older than stated age. Thin and frail. Derm: Skin warm and dry, normal coloration for ethnicity. Head: Atraumatic, normocephalic and symmetric. Eyes: EOMs intact, no lid lag, and anicteric sclera Mouth: no lip lesions, mucus membranes moist Cardiovascular: regular rate and rhythm with normal S1S2, no murmur, positive posterior tibial pulses bilaterally, and cap refill < 2 seconds. Lungs: Respirations even, regular, and unlabored on room air. Lungs CTA bilaterally, no rhonchi, no rales, no wheezing, and no accessory muscle usage. Abdominal: Abdomen distended. Postsurgical incision midline with wound VAC in place. Ext: ROM intact. No gross muscle atrophy, no edema, no contractures Neuro: Speech clear, face symmetrical and CN II-XII grossly intact with no noted focal neuro deficits Psych: Alert and oriented to person, place, time, and situation. Appropriate and pleasant affect. Assessment and Plan of Care: MRSA infection Recurrent small bowel obstruction requiring open laparotomy with lysis of adhesions and resection of small bowel tumor Retroperitoneal mass Postoperative ileus History of GERD with erosive esophagitis History of gastritis Elevated lipase with history of chronic pancreatitis Severe protein calorie malnutrition with BMI of 16.9 kg/m -General surgery following, took patient for open laparotomy with lysis of adhesions and resection of small bowel tumor with wound VAC placement on 10/16/2023 -Symptomatic care and pain management. Zofran 4 mg IVP every 8 hours as needed for nausea and/or vomiting -General surgery managing patient on Dilaudid [employer] for pain management. -Patient started on Reglan 10 mg IVP every 6 hours scheduled for persistent nausea and to increase bowel motility. -Continue Protonix 40 mg IVP daily -Dietitian following managing TPN and lipids. -DEBORA drain culture was positive for MRSA and group D enterococcus faecalis. -Continue Unasyn 3g IV every 6 hours and vancomycin 1000 mg every 16 hours. Continue to monitor vancomycin trough and renal function closely for signs of vancomycin associated renal toxicity. -Blood cultures showed no growth -Pathology sample was sent to lab for analysis and per pathology report, negative for histopathologic changes and negative for malignancy. Acute postoperative blood loss anemia on anemia of chronic disease Hemoglobin stable 7.8. Will continue to monitor closely with repeat morning CBC and transfuse if needed for hemoglobin less than 7. Hypokalemia, resolved and pt is on TPN/Lipids Hypomagnesemia, resolved and pt is on TPN/Lipids Thrombocytosis, resolved History of small bowel perforation status post emergent small bowel resection with [id number] duodenojejunostomy 09/06/2023 Data reviewed: Vital signs reviewed. Blood pressure 159/99, heart rate 102, respiratory rate 17, temp 97.8 F, and SpO2 of 99% on room air. Morning labs pending at this time. Will follow-up on these results once available. CODE STATUS: FULL CODE DVT Prophylaxis: Lovenox SQ GI Prophylaxis: Protonix Thank you for allowing us to participate in the care of this pleasant patient. Do not hesitate to contact us with questions. Someone can be reached from the [facility] hospitalist group all hours of the day at [phone] or via [employer] Patient was seen independently by Nurse Pracitioner. This document was prepared using [email or web address] dictation software. Please allow for errors in digital measurement advisor, while rare they do occur. Edin Davalos NP rendered care for this patient independently, reviewed the findings and plan as documented in the note above. I did not physically speak with or examine the patient on this date. Objective - Vital Signs Vital signs: Vital Signs Temp 97.8 F 10/23/23 06:40 Pulse 102 H 10/23/23 06:40 Resp 17 10/23/23 06:40 BP 159/99 10/23/23 06:40 Pulse Ox 99 10/23/23 06:40 FiO2 Intake & Output 10/22/23 10/23/23 10/23/23 18:59 06:59 18:59 Intake Total 2824 1026.5 Output Total 1300 1100 Balance 1524 -73.5 Intake: Intake, IV Titration 1899 1026.5 Amount Ampicillin-Sulbactam 3 gm 200 In Sodium Chloride 0.9% 100 ml @ 200 mls/hr IVPB Q6H [facility] Rx#:[id number] Fat Emulsion 20% 250 ml 105 In Empty Bag 1 bag @ 21 mls/hr IV TuSa@0900 [facility] Rx#:[id number] Mvi, Adult No.4 with Vit 744 1026.5 K 10 ml Trace (Conc-1Ml/ Dose) 1 ml Potassium Acetate 10 meq Sodium Acetate 18 meq Magnesium Sulfate gm 0.75 gm In Amino Acid 5%-D15w+Lytes* E* 1,000 ml @ 62 mls/hr IV .[id number] [facility] Rx#: [id number] Sodium Chloride 0.9% 1, 600 000 ml @ 50 mls/hr IV . Q20H [facility] Rx#:[id number] Vancomycin 1,250 mg In 250 Sodium Chloride 0.9% 250 ml @ 125 mls/hr IVPB Q16H [facility] Rx#:[id number] Oral 925 Output: Urine 800 750 Emesis 500 350 Other: Voiding Method Toilet Toilet Urinal Urinal # Voids 1 # Bowel Movements 1 - Labs CBC & Chem 7: 10/23/23 07:04 10/22/23 04:44 Labs: Abnormal Lab Results - Last 24 Hours (Table) 10/22/23 10/22/23 10/22/23 Range/Units 04:44 18:50 23:37 RBC 3.35 L (4.40-5.60) X 10*6/uL Hgb 7.8 L (13.0-17.0) g/dL Hct 25.3 L (39.6-50.0) % MCV 75.5 L (80.0-97.0) FL MCH 23.3 L (27.0-32.0) pg MCHC 30.8 L (32.0-37.0) g/dL RDW 17.4 H (11.5-14.5) % MPV 9.3 L (9.5-12.2) FL POC Glucose (mg/dL) 130 H 130 H (70-110) mg/dL 10/23/23 Range/Units 05:51 RBC (4.40-5.60) X 10*6/uL Hgb (13.0-17.0) g/dL Hct (39.6-50.0) % MCV (80.0-97.0) FL MCH (27.0-32.0) pg MCHC (32.0-37.0) g/dL RDW (11.5-14.5) % MPV (9.5-12.2) FL POC Glucose (mg/dL) 128 H (70-110) mg/dL
--- NOTE | 2023-10-23 14:29 | XR ---
EXAMINATION TYPE: XR abdomen 2V DATE OF EXAM: 10/23/2023 COMPARISON: 10/20/2023 HISTORY: Pain TECHNIQUE: One view abdominal series FINDINGS: Persistently markedly dilated bowel loops with numerous air-fluid levels. Contrast is seen within the bowel the right abdomen and within the rectum. There is a staple line. Right lower lobe infiltrate and small effusion. Postsurgical laurence seen. Diffuse osteopenia. Surgic al drain overlying the abdomen IMPRESSION: 1. Markedly dilated bowel loops measuring up to 9 cm in diameter. Differential diagnosis would includ e a severe postoperative ileus and obstruction. Findings are similar to prior exam. 2. Right lower lobe atelectasis or early infiltrate.
--- NOTE | 2023-10-23 15:11 | P.PN ---
Subjective Progress Note Date: 10/23/23 Principal diagnosis: Reason for follow-up is fever/ileus/obstruction Patient is a 43-year-old -Russian male past medical history significant for right-sided jaw cancer for the patient be treated with chemoradiation therapy, patient also have a history of alcohol abuse possible acute and chronic pancreatitis patient recently did have a prolonged hospital stay for bowel obstruction and this patient who did have a perforated small bowel and status post resection on 09/06/2023 did have prolonged ileus, now presenting back to the hospital abdominal pain and vomiting has been diagnosed with ileus/obstruction.Patient is status post open expiratory laparotomy with lysis o f adhesion excision of small bowel tumor x 3 closure of decompressive enterostomy and drainage of abdominal ascites completed on 10/16/2023. On today's evaluation that is 10/23/2023, Patient is afebrile patient is currently on room air and denies having any shortness of breath, the patient denies any chest pain or cough, the patient has been complaining of nausea and vomiting still complaining of abdominal pain. Objective - Vital Signs Vital signs: Vital Signs Temp 98.2 F 10/23/23 12:00 Pulse 96 10/23/23 12:00 Resp 20 10/23/23 12:00 BP 167/106 10/23/23 12:00 Pulse Ox 100 10/23/23 12:00 FiO2 Intake & Output 10/22/23 10/23/23 10/23/23 18:59 06:59 18:59 Intake Total 2824 1026.5 Output Total 1300 1100 800 Balance 1524 -73.5 -800 Weight 46.3 kg Intake: Intake, IV Titration 1899 1026.5 Amount Ampicillin-Sulbactam 3 gm 200 In Sodium Chloride 0.9% 100 ml @ 200 mls/hr IVPB Q6H [facility] Rx#:[id number] Fat Emulsion 20% 250 ml 105 In Empty Bag 1 bag @ 21 mls/hr IV TuSa@0900 [facility] Rx#:[id number] Mvi, Adult No.4 with Vit 744 1026.5 K 10 ml Trace (Conc-1Ml/ Dose) 1 ml Potassium Acetate 10 meq Sodium Acetate 18 meq Magnesium Sulfate gm 0.75 gm In Amino Acid 5%-D15w+Lytes* E* 1,000 ml @ 62 mls/hr IV .[id number] [facility] Rx#: [id number] Sodium Chloride 0.9% 1, 600 000 ml @ 50 mls/hr IV . Q20H [facility] Rx#:[id number] Vancomycin 1,250 mg In 250 Sodium Chloride 0.9% 250 ml @ 125 mls/hr IVPB Q16H [facility] Rx#:[id number] Oral 925 Output: Urine 800 750 650 Emesis 500 350 150 Other: Voiding Method Toilet Toilet Urinal Urinal # Voids 1 # Bowel Movements 1 - Exam GENERAL DESCRIPTION: Middle-age male lying in bed in no distress RESPIRATORY SYSTEM: Unlabored breathing , decreased breath sounds at bases HEART: S1 S2 regular rate and rhythm , ABDOMEN: Soft , mild distention and tenderness EXTREMITIES: No edema feet - Labs CBC & Chem 7: 10/22/23 04:44 10/22/23 04:44 Labs: Abnormal Lab Results - Last 24 Hours (Table) 10/22/23 10/22/23 10/23/23 Range/Units 18:50 23:37 05:51 POC Glucose (mg/dL) 130 H 130 H 128 H (70-110) mg/dL Iron (65-175) UG/DL TIBC (228-460) UG/DL % Saturation (15.00-50.00) Transferrin (204.0-354.0) mg/dL Ferritin (22.0-322.0) ng/mL 10/23/23 10/23/23 Range/Units 07:04 11:34 POC Glucose (mg/dL) 168 H (70-110) mg/dL Iron 17 L (65-175) UG/DL TIBC 171 L (228-460) UG/DL % Saturation 9.94 L (15.00-50.00) Transferrin 122.0 L (204.0-354.0) mg/dL Ferritin 366.0 H (22.0-322.0) ng/mL Assessment and Plan (1) Leukocytosis Current Visit: Yes Status: Acute Code(s): D72.829 - ELEVATED WHITE BLOOD CELL COUNT, UNSPECIFIED SNOMED Code(s): 235550935 (2) Ileus Current Visit: Yes Status: Acute Code(s): K56.7 - ILEUS, UNSPECIFIED SNOMED Code(s): 105900477 (3) MRSA (methicillin resistant staph aureus) culture positive Current Visit: Yes Status: Acute Code(s): Z22.322 - CARRIER OR SUSPECTED CARRIER OF METHICILLIN RESIS STAPH SNOMED Code(s): 313298180 Plan: 1patient presented hospital with sepsis in this patient who did have an elevated white count tachycardia source likely abdominal pain this patient did have predominantly abdominal symptoms with abdominal pain and vomiting CT has been suggestive of ileus/obstruction and will likely need to cover for the enteric gram-negative both aerobes and anaerobes 2- cultures from the are growing MRSA as well as Enterococcus 3-patient is status post extensive abdominal surgery did not mention any perforation or abscess no cultures 4- patient continues to have problem with the ileus remains to be on TPN, patient unable to tolerate his diet with continuous vomiting being monitored closely by surgery for now continue with vancomycin and Unasyn on the basis of initial culture Dictation was produced using [employer] dictation software. please excuse any grammatical, word or spelling errors. Time with Patient: Less than 30
[2023-10-23] MEDS: SODIUM FERRIC GLUCONAT-SUCROSE 125 MG in SODIUM CHLORIDE 0.9% 100 ML IVPB SCH (15:51)
[2023-10-23] MEDS: amLODIPine 5 MG TAB PO SCH (16:00)
[2023-10-23 17:08] LABS: HCT 29.7 % (39.0-53.0); HGB 8.9 gm/dL (13.0-17.5); MCH 24.1 pg (25.0-35.0); MCV 80.1 fL (80.0-100.0); RBC 3.71 m/uL (4.30-5.90); WBC 6.8 k/uL (3.8-10.6)
[2023-10-23 17:09] LABS: MCHC 30.1 g/dL (31.0-37.0); Platelet Count 611 k/uL (150-450); RDW 16.5 % (11.5-15.5)
[2023-10-23 18:42] LABS: Glucose,Whole Blood 132 mg/dL (70-110)
--- NOTE | 2023-10-23 19:15 | CDI ---
Documentation Clarification Form Date: 10/23/2023 06:31:03 PM From: Mara Christie RN, CCDS Phone: [phone] Admit Date: 10/08/2023 07:13:00 PM Patient Name: Adilson Otero Visit Number: [id number] Discharge Date: ATTENTION: The Clinical Documentation Specialists (CDI) and [facility] Coding Staff appreciate your assistance in clarifying documentation. Please respond to the clarification below the line at the bottom and electronically sign. The CDI & [facility] Coding staff will review the response and follow-up if needed. Please note: Queries are made part of the Legal Health Record. If you have any questions, please contact the author of this message via ITS. Dr. Leta Easton Postoperative ileus is documented in the surgical progress notes starting on and patient had Open exploratory laparotomy with lysis of adhesions, Excision of small bowel tumor x 3 Partial omentectomy on 10/16/23. Additional clarification is requested regarding the relationship, if any, that exists between the diagnosis and the procedure. Patients Admitting Diagnosis: Recurrent small bowel obstruction Post-Operative Diagnosis: Same Procedure performed: Open exploratory laparotomy with lysis of adhesions over 2 hours, Excision of small bowel tumor x 3, Closure of decompressive enterostomy, Partial omentectomy History/Risk Factors: Recurrent small bowel obstruction. mandibular cancer, small bowel perforation, alcohol abuse disorder, MRSA infection, pulmonary embolism, Former smoker Clinical Indicators: 43-year-old male presents to ED reporting nausea and vomiting. He has recent history of small bowel perforation with small bowel resection and DEBORA drain placement. 10/20 He had vomiting during the night. He was made NPO. They attempted [address] NG tube. He is having flatus. No bowel movement. Abdomen reduced elena distended. 10/20 VS151/91 90 17 97.9 100% RA 10/20 Labs: NA+ 135 BUN 77 Creatinine 0.55 10/21 Labs: WBC 6.77 HGB 7.8 HCT 25.3 10/22 CT abdomen: Markedly dilated bowel loops up to 9 cm in diameter. Differential diagnosis would include a severe postoperative ileus and obstruction. Right lower lobe atelectasis or early infiltrate. Treatment: Keep patient N.P.O -Encourage patient to ambulate -Continue TPN for nutrition support Reglan 10 MG IVP Q 6 HRS 10/18-10/22 Protonix 40mg IVP Daily 10/13-10/22 Unasyn 3 GM IVPB Q6 HRS 10/15-10/22 Vancomycin PTD -1,250 MG IVPB Q 16 HRS 10/11-10/22 What at relationship, if any, exists between the diagnosis of postoperative ileus and the procedure: [ ] Postoperative ileus is a complication of surgical procedure. [ ] Postoperative ileus is an expected outcome of the surgical procedure. [ ] Postoperative ileus is related to patients co-morbid condition(s) of recurrent small bowel obstruction and prior history of Ileus, & not a complication of the procedure [ ] Other please specify ____ [ ] Unable to determine (Template Last Revised: September 2020) Expected ileus Anticipated disposition pending improvement of expected ileus and assessment for rehab Dictated By: Leta Easton MD Signed By: <Electronically signed by Leta Easton MD> 10/24/23 0840 [ X ] Postoperative ileus is related to patients co-morbid condition(s) of recurrent small bowel obstruction and prior history of Ileus, & not a complication of the procedure Christian 11/01/23 @ 0909 MTDD
[2023-10-23] MEDS: hydrALAZINE HCL 25 MG TAB PO STA (20:04)
[2023-10-23 23:48] LABS: Glucose,Whole Blood 122 mg/dL (70-110)
[2023-10-24 00:22] LABS: BUN/Creat Ratio 23.67 Ratio (12.00-20.00); Blood Urea Nitrogen 14.2 mg/dL (9.0-27.0); Calcium 8.2 mg/dL (8.7-10.3); Carbon Dioxide 20.9 mmol/L (21.6-31.8); Chloride 99 mmol/L (96-109); Glucose 117 mg/dL (70-110); Magnesium 1.8 mg/dL (1.5-2.4); Phosphorus 3.8 mg/dL (2.4-5.1); Potassium 4.3 mmol/L (3.5-5.5); Sodium 137 mmol/L (135-145)
[2023-10-24 05:39] LABS: Glucose,Whole Blood 133 mg/dL (70-110)
[2023-10-24] MEDS: VANCOMYCIN TROUGH DUE 1 EACH MISC MISCELLANE ONE (05:39)
[2023-10-24 06:34] LABS: Potassium 4.1 mmol/L (3.5-5.1)
[2023-10-24 06:36] LABS: African American GFR (CKD) >90 (>60 ml/min/1.73 sqM); Anion Gap 3 mmol/L; Blood Urea Nitrogen 15 mg/dL (9-20); Calcium 7.8 mg/dL (8.4-10.2); Carbon Dioxide 27 mmol/L (22-30); Chloride 101 mmol/L (98-107); Glucose 117 mg/dL (74-99); Magnesium 1.9 mg/dL (1.6-2.3); Non-African American GFR(CKD) >90 (>60 ml/min/1.73 sqM); Sodium 131 mmol/L (137-145)
--- NOTE | 2023-10-24 08:40 | P.PN ---
Subjective Progress Note Date: 10/23/23 CHIEF COMPLAINT: Bowel obstruction HISTORY OF PRESENT ILLNESS: The patient is a 43-year-old male status post exploratory laparotomy for bowel resection, 10/16/2023. He reports large bowel movement yesterday. He is passing flatus. He had emesis yesterday. Small amount today. Overall, patient reports abdominal pain is improving. He is using his NUT TIGHTENER less. He is ambulating. "My belly is feeling better. I feel like I am doing better" ROS: No fevers or chills. No new chest pain. No productive sputum PHYSICAL EXAM: VITAL SIGNS: Reviewed CONSTITUTIONAL: Well developed and in no acute distress. EYES: Conjuctivae without sclera icterus. Extraocular movements grossly intact. HEAD, EARS, NOSE, THROAT: Moist buccal mucosa. Head is atraumatic, normocephalic. Hears conversational speech. RESPIRATORY: Non-labored respirations and equal bilateral excursions. CARDIOVASCULAR: Palpable 2+ radial pulses. ABDOMEN: Incisional wound VAC intact. No infection. Abdominal binder present MUSCULOSKELETAL: No gross deformity of the lower extremities noted. No clubbing. No cyanosis. SKIN: Good skin turgor. Well perfused. NEUROLOGIC: Cranial nerves II through XII grossly intact. No focal or lateralizing signs. PSYCH: Appropriate affect. Alert and oriented to person, place and time. CLINICAL LABS: Reviewed. WBC normal. Hemoglobin with anemia, 8.9. Iron panel low consistent with iron microcytic anemia. Thrombocytosis with platelets elevated 611. STUDIES: Abdominal x-ray independently reviewed demonstrates findings consistent with persistent ileus. Patient reports still passing moderate flatus. ASSESSMENT: 1. Small bowel obstruction 2. History of perforated small bowel 3. Severe protein malnutrition 4. Chronic constipation 5. Dehydration 6. Prior history of tracheostomy and mandibular cancer 7. History of marijuana use. 8. Expected ileus PLAN: 1. With the patient pre-existing history of chronic bowel obstruction for over 4 to 6 months, ileus is expected and reviewed. 2. Correction of microcytic anemia with iron infusions ordered 3. Ambulation at least 4 times daily to assist with underlying ileus described. 4. May benefit from rehab pending physical therapy and Occupational Therapy assessment 5. Continue TPN until adequate oral intake. 6. Replacement of magnesium for hypomagnesia which may contribute to ileus 7. Thiamine panel ordered due to persistent ileus and nausea 8. Anticipated disposition pending improvement of expected ileus and assessment for rehab 9. Change surgical dressing from incisional wound VAC to silver surgical dressing 10. All questions were reviewed with patient including care plan for which he agreed Objective - Vital Signs Vital signs: Vital Signs Temp 98.3 F 10/24/23 07:43 Pulse 110 H 10/24/23 07:53 Resp 18 10/24/23 07:43 BP 143/95 10/24/23 07:43 Pulse Ox 99 10/24/23 07:43 FiO2 Intake & Output 10/23/23 10/24/23 10/24/23 18:59 06:59 18:59 Intake Total 802.9 904.167 Output Total 1500 1400 450 Balance -697.1 -1400 454.167 Weight 46.3 kg Intake: Intake, IV Titration 802.9 904.167 Amount Mvi, Adult No.4 with Vit 802.9 904.167 K 10 ml Trace (Conc-1Ml/ Dose) 1 ml Potassium Acetate 10 meq Sodium Acetate 18 meq Magnesium Sulfate gm 0.75 gm In Amino Acid 5%-D15w+Lytes* E* 1,000 ml @ 62 mls/hr IV .[id number] [facility] Rx#: [id number] Output: Urine 1350 1400 450 Emesis 150 - Labs CBC & Chem 7: 10/23/23 07:04 10/24/23 05:21 Labs: Abnormal Lab Results - Last 24 Hours (Table) 10/23/23 10/23/23 10/23/23 Range/Units 07:04 07:04 07:04 RBC 3.71 L (4.30-5.90) m/uL Hgb 8.9 L (13.0-17.5) gm/dL Hct 29.7 L (39.0-53.0) % MCH 24.1 L (25.0-35.0) pg MCHC 30.1 L (31.0-37.0) g/dL RDW 16.5 H (11.5-15.5) % Plt Count 611 H (150-450) k/uL Sodium (137-145) mmol/L Carbon Dioxide 20.9 L (21.6-31.8) mmol/L Anion Gap 17.10 H (4.00-12.00) mmol/L Creatinine (0.66-1.25) mg/dL BUN/Creatinine Ratio 23.67 H (12.00-20.00) Ratio Glucose 117 H (70-110) mg/dL POC Glucose (mg/dL) (70-110) mg/dL Calcium 8.2 L (8.7-10.3) mg/dL Iron 17 L (65-175) UG/DL TIBC 171 L (228-460) UG/DL % Saturation 9.94 L (15.00-50.00) Transferrin 122.0 L (204.0-354.0) mg/dL Ferritin 366.0 H (22.0-322.0) ng/mL 10/23/23 10/23/23 10/23/23 Range/Units 11:34 18:40 23:46 RBC (4.30-5.90) m/uL Hgb (13.0-17.5) gm/dL Hct (39.0-53.0) % MCH (25.0-35.0) pg MCHC (31.0-37.0) g/dL RDW (11.5-15.5) % Plt Count (150-450) k/uL Sodium (137-145) mmol/L Carbon Dioxide (21.6-31.8) mmol/L Anion Gap (4.00-12.00) mmol/L Creatinine (0.66-1.25) mg/dL BUN/Creatinine Ratio (12.00-20.00) Ratio Glucose (70-110) mg/dL POC Glucose (mg/dL) 168 H 132 H 122 H (70-110) mg/dL Calcium (8.7-10.3) mg/dL Iron (65-175) UG/DL TIBC (228-460) UG/DL % Saturation (15.00-50.00) Transferrin (204.0-354.0) mg/dL Ferritin (22.0-322.0) ng/mL 10/24/23 10/24/23 Range/Units 05:21 05:37 RBC (4.30-5.90) m/uL Hgb (13.0-17.5) gm/dL Hct (39.0-53.0) % MCH (25.0-35.0) pg MCHC (31.0-37.0) g/dL RDW (11.5-15.5) % Plt Count (150-450) k/uL Sodium 131 L (137-145) mmol/L Carbon Dioxide (21.6-31.8) mmol/L Anion Gap (4.00-12.00) mmol/L Creatinine 0.51 L (0.66-1.25) mg/dL BUN/Creatinine Ratio (12.00-20.00) Ratio Glucose 117 H (70-110) mg/dL POC Glucose (mg/dL) 133 H (70-110) mg/dL Calcium 7.8 L (8.7-10.3) mg/dL Iron (65-175) UG/DL TIBC (228-460) UG/DL % Saturation (15.00-50.00) Transferrin (204.0-354.0) mg/dL Ferritin (22.0-322.0) ng/mL
[2023-10-24] MEDS: MAGNESIUM SULFATE-D5W PMX 1 GM in DEXTROSE/WATER 1 100ML.BAG IVPB SCH (09:11)
[2023-10-24 12:08] LABS: Glucose,Whole Blood 174 mg/dL (70-110)
--- NOTE | 2023-10-24 13:32 | P.PN ---
Subjective Progress Note Date: 10/24/23 CHIEF COMPLAINT: Bowel obstruction HISTORY OF PRESENT ILLNESS: The patient is a 43-year-old male status post exploratory laparotomy for bowel resection, 10/16/2023. He reports occasional emesis. Overall he does report symptoms have improved even from yesterday. He is ambulating. He is passing flatus. He is having bowel movements. ROS: No fevers or chills. No new chest pain. No productive sputum PHYSICAL EXAM: VITAL SIGNS: Reviewed CONSTITUTIONAL: Well developed and in no acute distress. EYES: Conjuctivae without sclera icterus. Extraocular movements grossly intact. HEAD, EARS, NOSE, THROAT: Moist buccal mucosa. Head is atraumatic, normocephalic. Hears conversational speech. RESPIRATORY: Non-labored respirations and equal bilateral excursions. CARDIOVASCULAR: Palpable 2+ radial pulses. ABDOMEN: Incisional wound VAC intact. MUSCULOSKELETAL: No gross deformity of the lower extremities noted. No clubbing. No cyanosis. SKIN: Good skin turgor. Well perfused. NEUROLOGIC: Cranial nerves II through XII grossly intact. No focal or lateralizing signs. PSYCH: Appropriate affect. Alert and oriented to person, place and time. CLINICAL LABS: Reviewed. Magnesium low 1.9. ASSESSMENT: 1. Small bowel obstruction 2. History of perforated small bowel 3. Severe protein malnutrition 4. Chronic constipation 5. Dehydration 6. Prior history of tracheostomy and mandibular cancer 7. History of marijuana use. 8. Expected ileus 9. Hypomagnesia 10. Iron deficiency anemia PLAN: 1. He has expected prolonged ileus due to protracted course of chronic bowel obstructions for over 4 to 6 months. Ice chips and popsicles in interim. 2. Ambulation encouraged with assessment for rehab status with PT OT 3. Start thiamine for suspected thiamine deficiency and intractable nausea and vomiting treatment 4. Magnesium for hypomagnesia treatment IV infusion 5. Iron infusion started 6. All questions addressed with care plan reviewed 7. Change incisional wound VAC to surgical dressing Objective - Vital Signs Vital signs: Vital Signs Temp 98.3 F 10/24/23 07:43 Pulse 110 H 10/24/23 07:53 Resp 18 10/24/23 07:43 BP 143/95 10/24/23 07:43 Pulse Ox 99 10/24/23 07:43 FiO2 Intake & Output 10/23/23 10/24/2324 18:59 06:59 18:59 Intake Total 802.9 904.167 Output Total 1500 1400 1000 Balance -697.1 -1400 -95.833 Weight 46.3 kg Intake: Intake, IV Titration 802.9 904.167 Amount Mvi, Adult No.4 with Vit 802.9 904.167 K 10 ml Trace (Conc-1Ml/ Dose) 1 ml Potassium Acetate 10 meq Sodium Acetate 18 meq Magnesium Sulfate gm 0.75 gm In Amino Acid 5%-D15w+Lytes* E* 1,000 ml @ 62 mls/hr IV .[id number] [facility] Rx#: [id number] Output: Urine 1350 1400 950 Emesis 150 50 Other: # Voids 2 - Labs CBC & Chem 7: 10/23/23 07:04 10/24/23 05:21 Labs: Abnormal Lab Results - Last 24 Hours (Table) 10/23/23 10/23/23 10/23/23 Range/Units 07:04 07:04 07:04 RBC 3.71 L (4.30-5.90) m/uL Hgb 8.9 L (13.0-17.5) gm/dL Hct 29.7 L (39.0-53.0) % MCH 24.1 L (25.0-35.0) pg MCHC 30.1 L (31.0-37.0) g/dL RDW 16.5 H (11.5-15.5) % Plt Count 611 H (150-450) k/uL Sodium (137-145) mmol/L Carbon Dioxide 20.9 L (21.6-31.8) mmol/L Anion Gap 17.10 H (4.00-12.00) mmol/L Creatinine (0.66-1.25) mg/dL BUN/Creatinine Ratio 23.67 H (12.00-20.00) Ratio Glucose 117 H (70-110) mg/dL POC Glucose (mg/dL) (70-110) mg/dL Calcium 8.2 L (8.7-10.3) mg/dL Iron 17 L (65-175) UG/DL TIBC 171 L (228-460) UG/DL % Saturation 9.94 L (15.00-50.00) Transferrin 122.0 L (204.0-354.0) mg/dL Ferritin 366.0 H (22.0-322.0) ng/mL 10/23/23 10/23/23 10/24/23 Range/Units 18:40 23:46 05:21 RBC (4.30-5.90) m/uL Hgb (13.0-17.5) gm/dL Hct (39.0-53.0) % MCH (25.0-35.0) pg MCHC (31.0-37.0) g/dL RDW (11.5-15.5) % Plt Count (150-450) k/uL Sodium 131 L (137-145) mmol/L Carbon Dioxide (21.6-31.8) mmol/L Anion Gap (4.00-12.00) mmol/L Creatinine 0.51 L (0.66-1.25) mg/dL BUN/Creatinine Ratio (12.00-20.00) Ratio Glucose 117 H (70-110) mg/dL POC Glucose (mg/dL) 132 H 122 H (70-110) mg/dL Calcium 7.8 L (8.7-10.3) mg/dL Iron (65-175) UG/DL TIBC (228-460) UG/DL % Saturation (15.00-50.00) Transferrin (204.0-354.0) mg/dL Ferritin (22.0-322.0) ng/mL 10/24/23 10/24/23 Range/Units 05:37 12:06 RBC (4.30-5.90) m/uL Hgb (13.0-17.5) gm/dL Hct (39.0-53.0) % MCH (25.0-35.0) pg MCHC (31.0-37.0) g/dL RDW (11.5-15.5) % Plt Count (150-450) k/uL Sodium (137-145) mmol/L Carbon Dioxide (21.6-31.8) mmol/L Anion Gap (4.00-12.00) mmol/L Creatinine (0.66-1.25) mg/dL BUN/Creatinine Ratio (12.00-20.00) Ratio Glucose (70-110) mg/dL POC Glucose (mg/dL) 133 H 174 H (70-110) mg/dL Calcium (8.7-10.3) mg/dL Iron (65-175) UG/DL TIBC (228-460) UG/DL % Saturation (15.00-50.00) Transferrin (204.0-354.0) mg/dL Ferritin (22.0-322.0) ng/mL
--- NOTE | 2023-10-24 15:13 | P.PN ---
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 He completed multiple days of IV antibiotics and discharged home on PO Augmentin and DEBORA drain. He presented to the emergency department on 10/09/2023 with a chief complaint of increased abdominal pain, abdominal distention and multiple episodes of bilious vomiting. Upon arrival in the emergency department, patient underwent full evaluation. Vital signs upon arrival showed BP 145/95, HR 101, RR 18, T 90 7.8F, 100% on RA. Labs were completed and revie wed CBC showed WBC count 18.5, hemoglobin 10.6, hematocrit 33.2, MCV 79, platelet 634. CMP showed sodium 134, bicarb 20, creatinine 0.48, glucose 167, albumin 2.9. Lipase 473. Lactic acid 1.4. CT abdomen and pelvis was completed revealing diffuse SB dilation with bowel containing gas, feces, and fluid suspicious for ileus versus small bowel obstruction, drainage catheter in place, and chronic pancreatitis changes. Patient reported having bowel movements despite abdominal distention and worsening pain. Patient was admitted to general surgery team and [facility] was consulted for medical management of this patient throughout hospitalization. DEBORA drain cultures positive for MRSA. Patient failed conservative management of small bowel obstruction and was taken for open laparotomy with lysis of adhesions and resection of small bowel tumor with wound VAC placement on 10/16/2023. Pathology sample was sent to lab for analysis and per pathology report, negative for histopathologic changes and negative for malignancy. Physical exam: Patient seen and fully evaluated at bedside this morning. He was sitting up in the chair and again reports having episodes of nausea and vomiting overnight and was made n.p.o. by surgery team.. Patient currently reports nausea and had 1 episode of emesis this morning. Patient reports he continues to pass flatus but denies any further bowel movements. Patient has been walking in halls with physical therapy. Vital signs reviewed and stable. General: Nontoxic, no acute distress and appears older than stated age. Thin and frail. Derm: Skin warm and dry, normal coloration for ethnicity. Head: Atraumatic, normocephalic and symmetric. Eyes: EOMs intact, no lid lag, and anicteric sclera Mouth: no lip lesions, mucus membranes moist Cardiovascular: regular rate and rhythm with normal S1S2, no murmur, positive posterior tibial pulses bilaterally, and cap refill < 2 seconds. Lungs: Respirations even, regular, and unlabored on room air. Lungs CTA bilaterally, no rhonchi, no rales, no wheezing, and no accessory muscle usage. Abdominal: Abdomen distended. Postsurgical incision midline with wound VAC and abdominal binder in place. Ext: ROM intact. No gross muscle atrophy, no edema, no contractures Neuro: Speech clear, face symmetrical and CN II-XII grossly intact with no noted focal neuro deficits Psych: Alert and oriented to person, place, time, and situation. Appropriate and pleasant affect. Assessment and Plan of Care: MRSA infection Recurrent postoperative ileus Recurrent small bowel obstruction requiring open laparotomy with lysis of adhesions and resection of small bowel tumor on 10/16/2023 Retroperitoneal mass History of GERD with erosive esophagitis History of gastritis Elevated lipase with history of chronic pancreatitis Severe protein calorie malnutrition with BMI of 16.9 kg/m -General surgery following, took patient for open laparotomy with lysis of adhesions and resection of small bowel tumor with wound VAC placement on 10/16/2023 -Symptomatic care and pain management. Zofran 4 mg IVP every 8 hours as needed for nausea and/or vomiting -General surgery managing patient on Dilaudid FACE BURLER for pain management. -Continue Reglan 10 mg IVP every 6 hours scheduled for persistent nausea and to increase bowel motility. -Continue Protonix 40 mg IVP daily -Dietitian following managing TPN and lipids. -DEBORA drain culture was positive for MRSA and group D enterococcus faecalis. -Continue Unasyn 3g IV every 6 hours and vancomycin 1000 mg every 16 hours. Continue to monitor vancomycin trough and renal function closely for signs of vancomycin associated renal toxicity. -Blood cultures showed no growth -Pathology sample was sent to lab for analysis and per pathology report, negat farhan for histopathologic changes and negative for malignancy. Acute postoperative blood loss anemia on anemia of chronic disease Hemoglobin stable 8.9. Will continue to monitor closely with repeat morning CBC and transfuse if needed for hemoglobin less than 7. Iron profile resulting showing total iron of 17, TIBC of 171, iron percentage 9.94, transferrin of 122, and ferritin of 366. Patient started on IV Ferrlecit 125 mg daily x 3 days and once tolerating oral intake should be started on ferrous sulfate 325 mg daily. Hypokalemia, resolved and pt is on TPN/Lipids Hypomagnesemia, resolved and pt is on TPN/Lipids Thrombocytosis. Platelet count again elevated at 611 this morning. Likely reactive secondary to postoperative ileus. History of small bowel perforation status post emergent small bowel resection with euyt-gs-pume duodenojejunostomy 09/06/2023 Data reviewed: Vital signs reviewed. Blood pressure 143/95, heart rate 110, respiratory rate 18, temp 98.3 F, and SpO2 of 99% on room air. Morning labs reviewed.. Sodium 131, glucose 117 and renal function remains unremarkable with BUN of 15, creatinine 0.51, GFR greater than 90. Magnesium normal findings at 1.9. Iron profile resulting showing total iron of 17, TIBC of 171, iron percentage 9.94, transferrin of 122, and ferritin of 366. CODE STATUS: FULL CODE DVT Prophylaxis: Lovenox SQ GI Prophylaxis: Protonix Thank you for allowing us to participate in the care of this pleasant patient. Do not hesitate to contact us with questions. Someone can be reached from the [facility] hospitalist group all hours of the day at [phone] or via perfect serve. Patient was seen independently by Nurse Pracitioner. This document was prepared using [employer] dictation software. Please allow for errors in carton forming machine operator, while rare they do occur. Edin Davalos NP rendered care for this patient independently, reviewed the findings and plan as documented in the note above. I did not physically speak with or examine the patient on this date. Objective - Vital Signs Vital signs: Vital Signs Temp 98.3 F 10/24/23 07:43 Pulse 110 H 10/24/23 07:53 Resp 18 10/24/23 07:43 BP 143/95 10/24/23 07:43 Pulse Ox 99 10/24/23 07:43 FiO2 Intake & Output 10/23/23 10/24/23 10/24/23 18:59 06:59 18:59 Intake Total 802.9 904.167 Output Total 1500 1400 450 Balance -697.1 -1400 454.167 Weight 46.3 kg Intake: Intake, IV Titration 802.9 904.167 Amount Mvi, Adult No.4 with Vit 802.9 904.167 K 10 ml Trace (Conc-1Ml/ Dose) 1 ml Potassium Acetate 10 meq Sodium Acetate 18 meq Magnesium Sulfate gm 0.75 gm In Amino Acid 5%-D15w+Lytes* E* 1,000 ml @ 62 mls/hr IV .[id number] [facility] Rx#: [id number] Output: Urine 1350 1400 450 Emesis 150 - Labs CBC & Chem 7: 10/23/23 07:04 10/25/23 08:19 Labs: Abnormal Lab Results - Last 24 Hours (Table) 10/23/23 10/23/23 10/23/23 Range/Units 07:04 07:04 07:04 RBC 3.71 L (4.30-5.90) m/uL Hgb 8.9 L (13.0-17.5) gm/dL Hct 29.7 L (39.0-53.0) % MCH 24.1 L (25.0-35.0) pg MCHC 30.1 L (31.0-37.0) g/dL RDW 16.5 H (11.5-15.5) % Plt Count 611 H (150-450) k/uL Sodium (137-145) mmol/L Carbon Dioxide 20.9 L (21.6-31.8) mmol/L Anion Gap 17.10 H (4.00-12.00) mmol/L Creatinine (0.66-1.25) mg/dL BUN/Creatinine Ratio 23.67 H (12.00-20.00) Ratio Glucose 117 H (70-110) mg/dL POC Glucose (mg/dL) (70-110) mg/dL Calcium 8.2 L (8.7-10.3) mg/dL Iron 17 L (65-175) UG/DL TIBC 171 L (228-460) UG/DL % Saturation 9.94 L (15.00-50.00) Transferrin 122.0 L (204.0-354.0) mg/dL Ferritin 366.0 H (22.0-322.0) ng/mL 10/23/23 10/23/23 10/23/23 Range/Units 11:34 18:40 23:46 RBC (4.30-5.90) m/uL Hgb (13.0-17.5) gm/dL Hct (39.0-53.0) % MCH (25.0-35.0) pg MCHC (31.0-37.0) g/dL RDW (11.5-15.5) % Plt Count (150-450) k/uL Sodium (137-145) mmol/L Carbon Dioxide (21.6-31.8) mmol/L Anion Gap (4.00-12.00) mmol/L Creatinine (0.66-1.25) mg/dL BUN/Creatinine Ratio (12.00-20.00) Ratio Glucose (70-110) mg/dL POC Glucose (mg/dL) 168 H 132 H 122 H (70-110) mg/dL Calcium (8.7-10.3) mg/dL Iron (65-175) UG/DL TIBC (228-460) UG/DL % Saturation (15.00-50.00) Transferrin (204.0-354.0) mg/dL Ferritin (22.0-322.0) ng/mL 10/24/23 10/24/23 Range/Units 05:21 05:37 RBC (4.30-5.90) m/uL Hgb (13.0-17.5) gm/dL Hct (39.0-53.0) % MCH (25.0-35.0) pg MCHC (31.0-37.0) g/dL RDW (11.5-15.5) % Plt Count (150-450) k/uL Sodium 131 L (137-145) mmol/L Carbon Dioxide (21.6-31.8) mmol/L Anion Gap (4.00-12.00) mmol/L Creatinine 0.51 L (0.66-1.25) mg/dL BUN/Creatinine Ratio (12.00-20.00) Ratio Glucose 117 H (70-110) mg/dL POC Glucose (mg/dL) 133 H (70-110) mg/dL Calcium 7.8 L (8.7-10.3) mg/dL Iron (65-175) UG/DL TIBC (228-460) UG/DL % Saturation (15.00-50.00) Transferrin (204.0-354.0) mg/dL Ferritin (22.0-322.0) ng/mL
--- NOTE | 2023-10-24 15:50 | P.PN ---
Subjective Progress Note Date: 10/24/23 Principal diagnosis: Reason for follow-up is fever/ileus/obstruction Patient is a 43-year-old -[place] male past medical history significant for right-sided jaw cancer for the patient be treated with chemoradiation therapy, patient also have a history of alcohol abuse possible acute and chronic pancreatitis patient recently did have a prolonged hospital stay for bowel obstruction and this patient who did have a perforated small bowel and status post resection on 09/06/2023 did have prolonged ileus, now presenting back to the hospital abdominal pain and vomiting has been diagnosed with ileus/obstruction.Patient is status post open expiratory laparotomy with lysis o f adhesion excision of small bowel tumor x 3 closure of decompressive enterostomy and drainage of abdominal ascites completed on 10/16/2023. On today's evaluation that is 10/24/2023, patient has been afebrile, patient is breathing comfortably and is currently on room air, patient denies having any si gnificant cough no chest pain shortness of breath, patient still complaining of nausea and vomiting abdominal pain no bowel movement. Patient creatinine is 0.5, white count was 6.8 yesterday no CBC done today Objective - Vital Signs Vital signs: Vital Signs Temp 98.3 F 10/24/23 07:43 Pulse 110 H 10/24/23 07:53 Resp 18 10/24/23 07:43 BP 143/95 10/24/23 07:43 Pulse Ox 99 10/24/23 07:43 FiO2 Intake & Output 10/23/23 10/24/23 10/24/23 18:59 06:59 18:59 Intake Total 802.9 904.167 Output Total 1500 1400 1000 Balance -697.1 -1400 -95.833 Weight 46.3 kg Intake: Intake, IV Titration 802.9 904.167 Amount Mvi, Adult No.4 with Vit 802.9 904.167 K 10 ml Trace (Conc-1Ml/ Dose) 1 ml Potassium Acetate 10 meq Sodium Acetate 18 meq Magnesium Sulfate gm 0.75 gm In Amino Acid 5%-D15w+Lytes* E* 1,000 ml @ 62 mls/hr IV .[id number] [facility] Rx#: [id number] Output: Urine 1350 1400 950 Emesis 150 50 Other: # Voids 2 - Exam GENERAL DESCRIPTION: Middle-age male lying in bed in no distress RESPIRATORY SYSTEM: Unlabored breathing , decreased breath sounds at bases HEART: S1 S2 regular rate and rhythm , ABDOMEN: Soft , mild distention and tenderness EXTREMITIES: No edema feet - Labs CBC & Chem 7: 10/23/23 07:04 10/24/23 05:21 Labs: Abnormal Lab Results - Last 24 Hours (Table) 10/23/23 10/23/23 10/23/23 Range/Units 07:04 07:04 07:04 RBC 3.71 L (4.30-5.90) m/uL Hgb 8.9 L (13.0-17.5) gm/dL Hct 29.7 L (39.0-53.0) % MCH 24.1 L (25.0-35.0) pg MCHC 30.1 L (31.0-37.0) g/dL RDW 16.5 H (11.5-15.5) % Plt Count 611 H (150-450) k/uL Sodium (137-145) mmol/L Carbon Dioxide 20.9 L (21.6-31.8) mmol/L Anion Gap 17.10 H (4.00-12.00) mmol/L Creatinine (0.66-1.25) mg/dL BUN/Creatinine Ratio 23.67 H (12.00-20.00) Ratio Glucose 117 H (70-110) mg/dL POC Glucose (mg/dL) (70-110) mg/dL Calcium 8.2 L (8.7-10.3) mg/dL Iron 17 L (65-175) UG/DL TIBC 171 L (228-460) UG/DL % Saturation 9.94 L (15.00-50.00) Transferrin 122.0 L (204.0-354.0) mg/dL Ferritin 366.0 H (22.0-322.0) ng/mL 10/23/23 10/23/23 10/24/23 Range/Units 18:40 23:46 05:21 RBC (4.30-5.90) m/uL Hgb (13.0-17.5) gm/dL Hct (39.0-53.0) % MCH (25.0-35.0) pg MCHC (31.0-37.0) g/dL RDW (11.5-15.5) % Plt Count (150-450) k/uL Sodium 131 L (137-145) mmol/L Carbon Dioxide (21.6-31.8) mmol/L Anion Gap (4.00-12.00) mmol/L Creatinine 0.51 L (0.66-1.25) mg/dL BUN/Creatinine Ratio (12.00-20.00) Ratio Glucose 117 H (70-110) mg/dL POC Glucose (mg/dL) 132 H 122 H (70-110) mg/dL Calcium 7.8 L (8.7-10.3) mg/dL Iron (65-175) UG/DL TIBC (228-460) UG/DL % Saturation (15.00-50.00) Transferrin (204.0-354.0) mg/dL Ferritin (22.0-322.0) ng/mL 10/24/23 10/24/23 Range/Units 05:37 12:06 RBC (4.30-5.90) m/uL Hgb (13.0-17.5) gm/dL Hct (39.0-53.0) % MCH (25.0-35.0) pg MCHC (31.0-37.0) g/dL RDW (11.5-15.5) % Plt Count (150-450) k/uL Sodium (137-145) mmol/L Carbon Dioxide (21.6-31.8) mmol/L Anion Gap (4.00-12.00) mmol/L Creatinine (0.66-1.25) mg/dL BUN/Creatinine Ratio (12.00-20.00) Ratio Glucose (70-110) mg/dL POC Glucose (mg/dL) 133 H 174 H (70-110) mg/dL Calcium (8.7-10.3) mg/dL Iron (65-175) UG/DL TIBC (228-460) UG/DL % Saturation (15.00-50.00) Transferrin (204.0-354.0) mg/dL Ferritin (22.0-322.0) ng/mL Assessment and Plan (1) Leukocytosis Current Visit: Yes Status: Acute Code(s): D72.829 - ELEVATED WHITE BLOOD CELL COUNT, UNSPECIFIED SNOMED Code(s): 176944799 (2) Ileus Current Visit: Yes Status: Acute Code(s): K56.7 - ILEUS, UNSPECIFIED SNOMED Code(s): 609368671 (3) MRSA (methicillin resistant staph aureus) culture positive Current Visit: Yes Status: Acute Code(s): Z22.322 - CARRIER OR SUSPECTED CARRIER OF METHICILLIN RESIS STAPH SNOMED Code(s): 349429734 Plan: 1patient presented hospital with sepsis in this patient who did have an elevated white count tachycardia source likely abdominal pain this patient did have predominantly abdominal symptoms with abdominal pain and vomiting CT has been suggestive of ileus/obstruction and will likely need to cover for the enteric gram-negative both aerobes and anaerobes 2- cultures from the [facility] are growing MRSA as well as Enterococcus 3-patient is status post extensive abdominal surgery did not mention any perforation or abscess no cultures 4- patient prolonged ileus expected per surgical note and is being monitored closely for now continue with vancomycin and Unasyn on the basis of initial culture Dictation was produced using [employer] dictation software. please excuse any grammatical, word or spelling errors. Time with Patient: Less than 30
[2023-10-24 18:51] LABS: Glucose,Whole Blood 133 mg/dL (70-110)
[2023-10-24 20:26] LABS: Glucose,Whole Blood 139 mg/dL (70-110)
[2023-10-24] MEDS: [UNRECOGNIZED DRUG - REMARK] IV SCH (21:42)
[2023-10-24] MEDS ORDERED: [UNRECOGNIZED DRUG - REMARK] IV SCH (23:30)
[2023-10-25 01:51] LABS: Glucose,Whole Blood 151 mg/dL (70-110)
[2023-10-25 06:22] LABS: Glucose,Whole Blood 161 mg/dL (70-110)
[2023-10-25] MEDS: THIAMINE 100 MG/ML 2 ML VIAL IVP SCH (09:29)
[2023-10-25 09:34] LABS: ALT 11 U/L (4-49); AST 18 U/L (17-59); African American GFR (CKD) >90 (>60 ml/min/1.73 sqM); Albumin 2.4 g/dL (3.5-5.0); Albumin/Globulin Ratio 0.8; Alkaline Phosphatase 130 U/L (38-126); Anion Gap 7 mmol/L; Blood Urea Nitrogen 16 mg/dL (9-20); Calcium 7.9 mg/dL (8.4-10.2); Carbon Dioxide 25 mmol/L (22-30); Chloride 99 mmol/L (98-107); Globulin 2.9 g/dL; Glucose 133 mg/dL (74-99); Magnesium 1.9 mg/dL (1.6-2.3); Non-African American GFR(CKD) >90 (>60 ml/min/1.73 sqM); Phosphorus 4.2 mg/dL (2.5-4.5); Potassium 4.2 mmol/L (3.5-5.1); Sodium 131 mmol/L (137-145); Total Bilirubin 0.2 mg/dL (0.2-1.3); Total Protein 5.3 g/dL (6.3-8.2)
--- NOTE | 2023-10-25 11:14 | P.PN ---
Subjective Progress Note Date: 10/25/23 42-year-old male with a past medical history of chronic pancreatitis, alcoholism, history of a pulmonary emboli, right-sided jaw cancer status post chemo/radiation treatment, GERD with erosive esophagitis, gastritis, and recent hospitalization from 09/04/2023 through 09/18/2023 for small bowel obstruction st atus post perforation resulting in emergent small bowel resection with [id number] duodenojejunostomy 09/06/2023 complicated by post operative ileus. He completed multiple days of IV antibiotics and discharged home on PO Augmentin and DEBORA drain. He presented to the emergency department on 10/09/2023 with a chief complaint of increased abdominal pain, abdominal distention and multiple episodes of bilious vomiting. Upon arrival in the emergency department, patient underwent full evaluation. Vital signs upon arrival showed BP 145/95, HR 101, RR 18, T 90 7.8F, 100% on RA. Labs were completed and reviewed CBC showed WBC count 18.5, hemoglobin 10.6, hematocrit 33.2, MCV 79, platelet 634. CMP showed sodium 134, bicarb 20, creatinine 0.48, glucose 167, albumin 2.9. Lipase 473. Lactic acid 1.4. CT abdomen and pelvis was completed revealing diffuse SB dilation with bowel containing gas, feces, and fluid suspicious for ileus versus small bowel obstruction, drainage catheter in place, and chronic pancreatitis changes. Patient reported having bowel movements despite abdominal distention and worsening pain. Patient was admitted to general surgery team and [facility] was consulted for medical management of this patient throughout hospitalization. DEBORA drain cultures positive for MRSA. Patient failed conservative management of small bowel obstruction and was taken for open laparo judd with lysis of adhesions and resection of small bowel tumor with wound VAC placement on 10/16/2023. Pathology sample was sent to lab for analysis and per pathology report, negative for histopathologic changes and negative for malignancy. 10/24 Patient was seen and examined. Continued pain requiring Dialaudid [employer] pump. No nauea or vomiting. CMP Na 131, Cr 0.5, glu 133, Ca 7.9, alk phos 130, T. protein 5.3. General: no distress, appears at stated age Derm: warm, dry Head: atraumatic, normocephalic, symmetric Eyes: EOMI, no lid lag, anicteric sclera Mouth: no lip lesion, mucus membranes moist Cardiovascular: S1S2 , no murmur Lungs: Decreased BS bilateral, no rhonchi, no rales , no accessory muscle use Abdominal: soft, nontender to palpation, postsurgical incision midline with wound VAC and abdominal binder in place Ext: no gross muscle atrophy, no edema, no contractures Neuro: No focal neurologic deficits Psych: Alert and oriented Based on my assessment of this patient, this patient meets a high complexity level of care. Patient has an acute diagnosis of AHRF due to Flu that poses a threat to life or bodily function. MRSA + Enterococcus infection: Continue Unasyn 3g IV every 6 hours and vancomycin 1000 mg every 16 hours. Continue to monitor vancomycin trough and renal function closely for signs of vancomycin associated renal toxicity. Recurrent postoperative ileus: Reglan 10 mg IVP every 6 hours scheduled for persistent nausea and to increase bowel motility. Recurrent small bowel obstruction requiring open laparotomy with lysis of adhesions and resection of small bowel tumor on 10/16/2023 Retroperitoneal mass: Pathology negative for malignancy. History of GERD with erosive esophagitis: Protonix 40 mg IV QD. History of gastritis: Protonix as above. Elevated lipase with history of chronic pancreatitis Severe protein calorie malnutrition with BMI of 16.9 kg/m: Dietitian following managing TPN and lipids. Acute postoperative blood loss anemia on anemia of chronic disease: Status post ferrlecit x 3 days. Transfuse if Hg < 7. Thrombocytosis Resolved: HypoK, HypoMag CODE STATUS: NO CODE. DVT Prophylaxis: Heparin SQ GI Prophylaxis: Protonix 40 mg IVP daily Designated medical POA if patient is not able to make medical decisions for themselves: I have reviewed the following method consultant notes: ID, Surgery note. I have reviewed the results of the following tests: BMP, Mag. I have ordered the following tests: I have discussed the care of this patient with the following independent historian: I have independently interpreted the following test below: I have discussed the management of this patient with the following physician: Objective - Vital Signs Vital signs: Vital Signs Temp 98.2 F 10/25/23 07:34 Pulse 90 10/25/23 07:34 Resp 17 10/25/23 07:34 BP 150/95 10/25/23 07:34 Pulse Ox 99 10/25/23 07:34 FiO2 Intake & Output 10/24/23 10/25/23 10/25/23 18:59 06:59 18:59 Intake Total 1320.600 Output Total 1750 1630 Balance -429.400 -1630 Weight 46.3 kg Intake: Intake, IV Titration 1320.600 Amount Mvi, Adult No.4 with Vit 1320.600 K 10 ml Trace (Conc-1Ml/ Dose) 1 ml Potassium Acetate 10 meq Sodium Acetate 18 meq Magnesium Sulfate gm 0.75 gm In Amino Acid 5%-D15w+Lytes* E* 1,000 ml @ 62 mls/hr IV .[id number] [facility] Rx#: [id number] Output: Urine 1450 1080 Emesis 300 550 Other: Voiding Method Urinal # Voids 1 1 - Labs CBC & Chem 7: 10/23/23 07:04 10/25/23 08:19 Labs: Abnormal Lab Results - Last 24 Hours (Table) 10/24/23 10/24/23 10/24/23 Range/Units 12:06 18:49 20:24 Sodium (137-145) mmol/L Creatinine (0.66-1.25) mg/dL Glucose (74-99) mg/dL POC Glucose (mg/dL) 174 H 133 H 139 H (70-110) mg/dL Calcium (8.4-10.2) mg/dL Alkaline Phosphatase (38-126) U/L Total Protein (6.3-8.2) g/dL Albumin (3.5-5.0) g/dL 10/25/23 10/25/23 10/25/23 Range/Units 01:49 06:20 08:19 Sodium 131 L (137-145) mmol/L Creatinine 0.50 L (0.66-1.25) mg/dL Glucose 133 H (74-99) mg/dL POC Glucose (mg/dL) 151 H 161 H (70-110) mg/dL Calcium 7.9 L (8.4-10.2) mg/dL Alkaline Phosphatase 130 H (38-126) U/L Total Protein 5.3 L (6.3-8.2) g/dL Albumin 2.4 L (3.5-5.0) g/dL
[2023-10-25 11:42] LABS: Glucose,Whole Blood 93 mg/dL (70-110)
--- NOTE | 2023-10-25 16:36 | P.PN ---
Subjective Progress Note Date: 10/25/23 Principal diagnosis: Reason for follow-up is fever/ileus/obstruction Patient is a 43-year-old -[place] male past medical history significant for right-sided jaw cancer for the patient be treated with chemoradiation therapy, patient also have a history of alcohol abuse possible acute and chronic pancreatitis patient recently did have a prolonged hospital stay for bowel obstruction and this patient who did have a perforated small bowel and status post resection on 09/06/2023 did have prolonged ileus, now presenting back to the hospital abdominal pain and vomiting has been diagnosed with ileus/obstruction.Patient is status post open expiratory laparotomy with lysis o f adhesion excision of small bowel tumor x 3 closure of decompressive enterostomy and drainage of abdominal ascites completed on 10/16/2023. On today's evaluation that is 10/25/2023,the patient denies any fever or any chills, patient is breathing comfortably on room air, the patient denies chest pain shortness of breath and no significant cough, patient currently complains of feeling nauseated vomiting abdominal pain and no bowel movement. Patient creatinine 0.50 no CBC was done today Objective - Vital Signs Vital signs: Vital Signs Temp 98.3 F 10/25/23 13:16 Pulse 102 H 10/25/23 13:16 Resp 16 10/25/23 13:16 BP 156/92 10/25/23 13:16 Pulse Ox 98 10/25/23 13:16 FiO2 Intake & Output 10/24/23 10/25/23 10/25/23 18:59 06:59 18:59 Intake Total 4990.358 0860 Output Total 1750 1630 Balance -429.400 -1630 1033 Weight 46.3 kg Intake: Intake, IV Titration 7518.661 9160 Amount Mvi, Adult No.4 with Vit 1320.600 K 10 ml Trace (Conc-1Ml/ Dose) 1 ml Potassium Acetate 10 meq Sodium Acetate 18 meq Magnesium Sulfate gm 0.75 gm In Amino Acid 5%-D15w+Lytes* E* 1,000 ml @ 62 mls/hr IV .[id number] [facility] Rx#: [id number] Mvi, Adult No.4 with Vit 1033 K 10 ml Trace (Conc-1Ml/ Dose) 1 ml Potassium Acetate 10 meq Sodium Acetate 30 meq Magnesium Sulfate gm 1 gm In Amino Acid 5%-D20w+Lytes*E* 1, 000 ml @ 65 mls/hr IV . [id number] [facility] Rx#:[id number] Output: Urine 1450 1080 Emesis 300 550 Other: Voiding Method Urinal # Voids 1 1 - Exam GENERAL DESCRIPTION: Middle-age male lying in bed in no distress RESPIRATORY SYSTEM: Unlabored breathing , decreased breath sounds at bases HEART: S1 S2 regular rate and rhythm , ABDOMEN: Soft , mild distention and tenderness EXTREMITIES: No edema feet - Labs CBC & Chem 7: 10/23/23 07:04 10/25/23 08:19 Labs: Abnormal Lab Results - Last 24 Hours (Table) 10/24/23 10/24/23 10/25/23 Range/Units 18:49 20:24 01:49 Sodium (137-145) mmol/L Creatinine (0.66-1.25) mg/dL Glucose (74-99) mg/dL POC Glucose (mg/dL) 133 H 139 H 151 H (70-110) mg/dL Calcium (8.4-10.2) mg/dL Alkaline Phosphatase (38-126) U/L Total Protein (6.3-8.2) g/dL Albumin (3.5-5.0) g/dL 10/25/23 10/25/23 Range/Units 06:20 08:19 Sodium 131 L (137-145) mmol/L Creatinine 0.50 L (0.66-1.25) mg/dL Glucose 133 H (74-99) mg/dL POC Glucose (mg/dL) 161 H (70-110) mg/dL Calcium 7.9 L (8.4-10.2) mg/dL Alkaline Phosphatase 130 H (38-126) U/L Total Protein 5.3 L (6.3-8.2) g/dL Albumin 2.4 L (3.5-5.0) g/dL Assessment and Plan (1) Leukocytosis Current Visit: Yes Status: Acute Code(s): D72.829 - ELEVATED WHITE BLOOD CELL COUNT, UNSPECIFIED SNOMED Code(s): 877743772 (2) Ileus Current Visit: Yes Status: Acute Code(s): K56.7 - ILEUS, UNSPECIFIED SNOMED Code(s): 665132186 (3) MRSA (methicillin resistant staph aureus) culture positive Current Visit: Yes Status: Acute Code(s): Z22.322 - CARRIER OR SUSPECTED CARRIER OF METHICILLIN RESIS STAPH SNOMED Code(s): 151995107 Plan: 1patient presented hospital with sepsis in this patient who did have an elevated white count tachycardia source likely abdominal pain this patient did have predominantly abdominal symptoms with abdominal pain and vomiting CT has been suggestive of ileus/obstruction and will likely need to cover for the enteric gram-negative both aerobes and anaerobes 2- cultures from the [facility] grew MRSA as well as Enterococcus 3-patient is status post extensive abdominal surgery did not mention any p erforation or abscess no cultures 4- patient prolonged ileus expected per surgical note and is being monitored closely by surgery 5-patient to continue with vancomycin and Unasyn on the basis of initial culture and monitor clinical course closely Dictation was produced using [employer] dictation software. please excuse any grammatical, word or spelling errors. Time with Patient: Less than 30
[2023-10-25 18:09] LABS: Glucose,Whole Blood 186 mg/dL (70-110)
[2023-10-25 20:14] LABS: Glucose,Whole Blood 177 mg/dL (70-110)
[2023-10-25] MEDS: HEPARIN SODIUM,PORCINE 5,000 UNIT/ML 1 ML VIAL SQ SCH (21:30)
[2023-10-26 01:29] LABS: Glucose,Whole Blood 156 mg/dL (70-110)
--- NOTE | 2023-10-26 01:40 | P.PN ---
Subjective Progress Note Date: 10/25/23 Principal diagnosis: s/p X-Lap SB resection for prolonged SBO with an expected ileus due to his history CHIEF COMPLAINT: Bowel obstruction HISTORY OF PRESENT ILLNESS: The patient is a 43-year-old male status post exploratory laparotomy for bowel resection, 10/16/2023. He reports occasional emesis. Overall he does report symptoms have improved even from yesterday. He is ambulating. He is passing flatus. He is having bowel movements. ROS: No fevers or chills. No new chest pain. No productive sputum PHYSICAL EXAM: VITAL SIGNS: Reviewed CONSTITUTIONAL: Well developed and in no acute distress. EYES: Conjuctivae without sclera icterus. Extraocular movements grossly intact. HEAD, EARS, NOSE, THROAT: Moist buccal mucosa. Head is atraumatic, normocephalic. Hears conversational speech. RESPIRATORY: Non-labored respirations and equal bilateral excursions. CARDIOVASCULAR: Palpable 2+ radial pulses. ABDOMEN: Incisional wound VAC intact. MUSCULOSKELETAL: No gross deformity of the lower extremities noted. No clubbing. No cyanosis. SKIN: Good skin turgor. Well perfused. NEUROLOGIC: Cranial nerves II through XII grossly intact. No focal or lateralizing signs. PSYCH: Appropriate affect. Alert and oriented to person, place and time. CLINICAL LABS: Reviewed. Magnesium low 1.9. ASSESSMENT: 1. Small bowel obstruction 2. History of perforated small bowel 3. Severe protein malnutrition 4. Chronic constipation 5. Dehydration 6. Prior history of tracheostomy and mandibular cancer 7. History of marijuana use. 8. Expected ileus 9. Hypomagnesia 10. Iron deficiency anemia PLAN: 1. He has expected prolonged ileus due to protracted course of chronic bowel obstructions for over 4 to 6 months. Ice chips and popsicles in interim. 2. Ambulation encouraged with assessment for rehab status with PT OT 3. Objective - Vital Signs Vital signs: Vital Signs Temp 98.0 F 10/25/23 18:57 Pulse 108 H 10/25/23 18:57 Resp 17 10/25/23 18:57 BP 155/94 10/25/23 18:57 Pulse Ox 100 10/25/23 18:57 FiO2 Intake & Output 10/25/23 10/25/23 10/26/23 06:59 18:59 06:59 Intake Total 1033 30 Output Total 1630 1050 970 Balance -8086 -56 -077 Intake: IV 30 Invasive Line 4 10 Invasive Line 5 20 Intake, IV Titration 1033 Amount Mvi, Adult No.4 with Vit 1033 K 10 ml Trace (Conc-1Ml/ Dose) 1 ml Potassium Acetate 10 meq Sodium Acetate 30 meq Magnesium Sulfate gm 1 gm In Amino Acid 5%-D20w+Lytes*E* 1, 000 ml @ 65 mls/hr IV . [id number] [facility] Rx#:[id number] Output: Urine 1080 1050 950 Emesis 550 20 Other: Voiding Method Urinal Urinal # Voids 1 - Labs CBC & Chem 7: 10/23/23 07:04 10/25/23 08:19 Labs: Abnormal Lab Results - Last 24 Hours (Table) 10/25/23 10/25/23 10/25/23 Range/Units 01:49 06:20 08:19 Sodium 131 L (137-145) mmol/L Creatinine 0.50 L (0.66-1.25) mg/dL Glucose 133 H (74-99) mg/dL POC Glucose (mg/dL) 151 H 161 H (70-110) mg/dL Calcium 7.9 L (8.4-10.2) mg/dL Alkaline Phosphatase 130 H (38-126) U/L Total Protein 5.3 L (6.3-8.2) g/dL Albumin 2.4 L (3.5-5.0) g/dL 10/25/23 10/25/23 10/26/23 Range/Units 18:08 20:12 01:27 Sodium (137-145) mmol/L Creatinine (0.66-1.25) mg/dL Glucose (74-99) mg/dL POC Glucose (mg/dL) 186 H 177 H 156 H (70-110) mg/dL Calcium (8.4-10.2) mg/dL Alkaline Phosphatase (38-126) U/L Total Protein (6.3-8.2) g/dL Albumin (3.5-5.0) g/dL
[2023-10-26 05:40] LABS: Glucose,Whole Blood 169 mg/dL (70-110)
[2023-10-26 06:50] LABS: African American GFR (CKD) >90 (>60 ml/min/1.73 sqM); Anion Gap 6 mmol/L; Blood Urea Nitrogen 15 mg/dL (9-20); Calcium 7.9 mg/dL (8.4-10.2); Carbon Dioxide 27 mmol/L (22-30); Chloride 98 mmol/L (98-107); Glucose 133 mg/dL (74-99); Magnesium 1.7 mg/dL (1.6-2.3); Non-African American GFR(CKD) >90 (>60 ml/min/1.73 sqM); Phosphorus 4.3 mg/dL (2.5-4.5); Sodium 131 mmol/L (137-145)
--- NOTE | 2023-10-26 07:46 | XR ---
EXAMINATION TYPE: XR abdomen 1V DATE OF EXAM: 10/26/2023 COMPARISON: 10/23/2023 INDICATION: Nasogastric tube placement TECHNIQUE: Single view abdomen upright view FINDINGS: Prominent air-filled loops of colon. Contrast within the ascending colon region. No differential air- fluid levels are identified at this time. Psoas margins are identified. No organomegaly is present. There is calcification overlying the right renal collecting system region IMPRESSION: 1. Prominent air-filled loops of colon. Prior fluid levels are not identified. Follow-up recommended 2 nasogastric tube tip within the left upper quadrant of the abdomen
[2023-10-26] MEDS: [UNRECOGNIZED DRUG - REMARK] IV SCH (09:11)
--- NOTE | 2023-10-26 09:42 | P.PN ---
Subjective Progress Note Date: 10/26/23 Principal diagnosis: the patient had a large emesis of 1700 mL.. Nasogastric tube is in position. He has been tachycardic. On exam vital signs she'll pulse in the 1:30 range. Abdomen soft with minimal distention. Small obstruction. Patient will continue NG tube decompression. He will most likely be transferred for telemetry. Objective - Vital Signs Vital signs: Vital Signs Temp 98.4 F 10/26/23 08:14 Pulse 143 H 10/26/23 08:14 Resp 17 10/26/23 08:14 BP 139/91 10/26/23 08:14 Pulse Ox 100 10/26/23 08:14 FiO2 Intake & Output 10/25/23 10/26/23 10/26/23 18:59 06:59 18:59 Intake Total 1033 994.167 Output Total 1050 3220 500 Balance -17 -2225.833 -500 Intake: IV 30 Invasive Line 4 10 Invasive Line 5 20 Intake, IV Titration 1033 964.167 Amount Mvi, Adult No.4 with Vit 1033 964.167 K 10 ml Trace (Conc-1Ml/ Dose) 1 ml Potassium Acetate 10 meq Sodium Acetate 30 meq Magnesium Sulfate gm 1 gm In Amino Acid 5%-D20w+Lytes*E* 1, 000 ml @ 65 mls/hr IV . [id number] [facility] Rx#:[id number] Output: Urine 1050 1500 500 Emesis 1720 Other: Voiding Method Urinal Urinal # Voids 1 - Labs CBC & Chem 7: 10/23/23 07:04 10/26/23 05:56 Labs: Abnormal Lab Results - Last 24 Hours (Table) 10/25/23 10/25/23 10/26/23 Range/Units 18:08 20:12 01:27 Sodium (137-145) mmol/L Creatinine (0.66-1.25) mg/dL Glucose (74-99) mg/dL POC Glucose (mg/dL) 186 H 177 H 156 H (70-110) mg/dL Calcium (8.4-10.2) mg/dL 10/26/23 10/26/23 Range/Units 05:39 05:56 Sodium 131 L (137-145) mmol/L Creatinine 0.56 L (0.66-1.25) mg/dL Glucose 133 H (74-99) mg/dL POC Glucose (mg/dL) 169 H (70-110) mg/dL Calcium 7.9 L (8.4-10.2) mg/dL
[2023-10-26 11:59] LABS: Glucose,Whole Blood 161 mg/dL (70-110)
--- NOTE | 2023-10-26 15:42 | P.PN ---
Subjective Progress Note Date: 10/26/23 Principal diagnosis: Reason for follow-up is fever/ileus/obstruction Patient is a 43-year-old -I[place] male past medical history significant for right-sided jaw cancer for the patient be treated with chemoradiation therapy, patient also have a history of alcohol abuse possible acute and chronic pancreatitis patient recently did have a prolonged hospital stay for bowel obstruction and this patient who did have a perforated small bowel and status post resection on 09/06/2023 did have prolonged ileus, now presenting back to the hospital abdominal pain and vomiting has been diagnosed with ileus/obstruction.Patient is status post open expiratory laparotomy with lysis o f adhesion excision of small bowel tumor x 3 closure of decompressive enterostomy and drainage of abdominal ascites completed on 10/16/2023. On today's evaluation that is 10/26/2023,the patient remains to be afebrile, patient is on 4 L nasal cannula supplemental oxygen and denies any shortness of breath no chest pain or cough.Patient did have multiple episodes of vomiting requiring NG tube placement and mention did have multiple bowel movements as well abdominal pain persist patient has been transferred to the telemetry unit. No CBC was done today, creatinine is normal Objective - Vital Signs Vital signs: Vital Signs Temp 98.4 F 10/26/23 08:14 Pulse 165 H 10/26/23 14:00 Resp 17 10/26/23 11:22 BP 128/89 10/26/23 11:22 Pulse Ox 97 10/26/23 11:22 FiO2 Intake & Output 10/25/23 10/26/23 10/26/23 18:59 06:59 18:59 Intake Total 1033 994.167 Output Total 1050 3220 1675 Balance -17 -2225.833 -1675 Intake: IV 30 Invasive Line 4 10 Invasive Line 5 20 Intake, IV Titration 1033 964.167 Amount Mvi, Adult No.4 with Vit 1033 964.167 K 10 ml Trace (Conc-1Ml/ Dose) 1 ml Potassium Acetate 10 meq Sodium Acetate 30 meq Magnesium Sulfate gm 1 gm In Amino Acid 5%-D20w+Lytes*E* 1, 000 ml @ 65 mls/hr IV . [id number] [facility] Rx#:[id number] Output: Gastric Drainage 250 Urine 1050 1500 1425 Emesis 1720 Other: Voiding Method Urinal Urinal # Voids 1 # Bowel Movements 1 - Exam GENERAL DESCRIPTION: Middle-age male up in the chair in no distress RESPIRATORY SYSTEM: Unlabored breathing , decreased breath sounds at bases HEART: S1 S2 regular rate and rhythm , ABDOMEN: Soft , mild distention and tenderness EXTREMITIES: No edema feet - Labs CBC & Chem 7: 10/23/23 07:04 10/26/23 05:56 Labs: Abnormal Lab Results - Last 24 Hours (Table) 10/25/23 10/25/23 10/26/23 Range/Units 18:08 20:12 01:27 Sodium (137-145) mmol/L Creatinine (0.66-1.25) mg/dL Glucose (74-99) mg/dL POC Glucose (mg/dL) 186 H 177 H 156 H (70-110) mg/dL Calcium (8.4-10.2) mg/dL 10/26/23 10/26/23 10/26/23 Range/Units 05:39 05:56 11:57 Sodium 131 L (137-145) mmol/L Creatinine 0.56 L (0.66-1.25) mg/dL Glucose 133 H (74-99) mg/dL POC Glucose (mg/dL) 169 H 161 H (70-110) mg/dL Calcium 7.9 L (8.4-10.2) mg/dL Assessment and Plan (1) Leukocytosis Current Visit: Yes Status: Acute Code(s): D72.829 - ELEVATED WHITE BLOOD CELL COUNT, UNSPECIFIED SNOMED Code(s): 165128132 (2) Ileus Current Visit: Yes Status: Acute Code(s): K56.7 - ILEUS, UNSPECIFIED SNOMED Code(s): 629669793 (3) MRSA (methicillin resistant staph aureus) culture positive Current Visit: Yes Status: Acute Code(s): Z22.322 - CARRIER OR SUSPECTED CARRIER OF METHICILLIN RESIS STAPH SNOMED Code(s): 541685794 Plan: 1patient presented hospital with sepsis in this patient who did have an elevated white count tachycardia source likely abdominal pain this patient did have predominantly abdominal symptoms with abdominal pain and vomiting CT has been suggestive of ileus/obstruction and will likely need to cover for the enteric gram-negative both aerobes and anaerobes 2- cultures from the DEBORA grew MRSA as well as Enterococcus 3-patient is status post extensive abdominal surgery did not mention any perforation or abscess no cultures 4- patient prolonged ileus expected per surgical note and is being monitored closely by surgery, patient did have some worsening as he did have extensive vomiting requiring NG tube placement and transferred to the telemetry unit patient to continue with Unasyn and vancomycin and watch his kidney function closely Dictation was produced using [employer] dictation software. please excuse any grammatical, word or spelling errors. Time with Patient: Less than 30
--- NOTE | 2023-10-26 16:47 | P.PN ---
Subjective Progress Note Date: 10/26/23 42-year-old male with a past medical history of chronic pancreatitis, alcoholism, history of a pulmonary emboli, right-sided jaw cancer status post chemo/radiation treatment, GERD with erosive esophagitis, gastritis, and recent hospitalization from 09/04/2023 through 09/18/2023 for small bowel obstruction st atus post perforation resulting in emergent small bowel resection with [id number] duodenojejunostomy 09/06/2023 complicated by post operative ileus. He completed multiple days of IV antibiotics and discharged home on PO Augmentin and DEBORA drain. He presented to the emergency department on 10/09/2023 with a chief complaint of increased abdominal pain, abdominal distention and multiple episodes of bilious vomiting. Upon arrival in the emergency department, patient underwent full evaluation. Vital signs upon arrival showed BP 145/95, HR 101, RR 18, T 90 7.8F, 100% on RA. Labs were completed and reviewed CBC showed WBC count 18.5, hemoglobin 10.6, hematocrit 33.2, MCV 79, platelet 634. CMP showed sodium 134, bicarb 20, creatinine 0.48, glucose 167, albumin 2.9. Lipase 473. Lactic acid 1.4. CT abdomen and pelvis was completed revealing diffuse SB dilation with bowel containing gas, feces, and fluid suspicious for ileus versus small bowel obstruction, drainage catheter in place, and chronic pancreatitis changes. Patient reported having bowel movements despite abdominal distention and worsening pain. Patient was admitted to general surgery team and [facility] was consulted for medical management of this patient throughout hospitalization. DEBORA drain cultures positive for MRSA. Patient failed conservative management of small bowel obstruction and was taken for open laparo judd with lysis of adhesions and resection of small bowel tumor with wound VAC placement on 10/16/2023. Pathology sample was sent to lab for analysis and per pathology report, negative for histopathologic changes and negative for malignancy. 10/24 Patient was seen and examined. Continued pain requiring Dialaudid GLOVE WRAPPER pump. No nauea or vomiting. CMP Na 131, Cr 0.5, glu 133, Ca 7.9, alk phos 130, T. protein 5.3. 10/25 Patient was seen and examined. Discussed with RN at bedside. Large emesis of 1.7L this morning. NG tube inserted. KUB shows air-filled loops of colon. Noted to be tachycardic with HR in the 160s, SBP in the 120s and 130s. Transferred to 3S. Cardiology consulted, Echo and venous doppler ordered. EKG and telemetry showing sinus tachycardia. BMP Na 131, Cr 0.56, glu 133, Ca 7.9. General: no distress, appears at stated age Derm: warm, dry Head: atraumatic, normocephalic, symmetric Eyes: EOMI, no lid lag, anicteric sclera Mouth: no lip lesion, mucus membranes moist Cardiovascular: S1S2 tachy, no murmur Lungs: Decreased BS bilateral, no rhonchi, no rales , no accessory muscle use Abdominal: soft, nontender to palpation, postsurgical incision midline with wound VAC and abdominal binder in place Ext: no gross muscle atrophy, no edema, no contractures Neuro: No focal neurologic deficits Psych: Alert and oriented Based on my assessment of this patient, this patient meets a high complexity level of care. Patient has an acute diagnosis of AHRF due to Flu that poses a threat to life or bodily function. Sinus tachycardia: Echo and Venous doppler ordered by Cardiology. HR now in the 130s. MRSA + Enterococcus infection: Continue Unasyn 3g IV every 6 hours and vancomyci n 1000 mg every 16 hours. Continue to monitor vancomycin trough and renal function closely for signs of vancomycin associated renal toxicity. Recurrent postoperative ileus: Reglan 10 mg IVP every 6 hours scheduled for persistent nausea and to increase bowel motility. Recurrent small bowel obstruction requiring open laparotomy with lysis of adhesions and resection of small bowel tumor on 10/16/2023 Retroperitoneal mass: Pathology negative for malignancy. History of GERD with erosive esophagitis: Protonix 40 mg IV QD. History of gastritis: Protonix as above. Elevated lipase with history of chronic pancreatitis Severe protein calorie malnutrition with BMI of 16.9 kg/m: Dietitian following managing TPN and lipids. Acute postoperative blood loss anemia on anemia of chronic disease: Status post ferrlecit x 3 days. Transfuse if Hg < 7. Thrombocytosis Resolved: HypoK, HypoMag CODE STATUS: NO CODE. DVT Prophylaxis: Heparin SQ GI Prophylaxis: Protonix 40 mg IVP daily Designated medical POA if patient is not able to make medical decisions for themselves: I have reviewed the following pharmacy consultant notes: ID, Surgery note. I have reviewed the results of the following tests: BMP I have ordered the following tests: Agree with Venous doppler and Echo. BMP and Trough for tomorrow. I have discussed the care of this patient with the following independent historian: RN I have independently interpreted the following test below: DIANA I have discussed the management of this patient with the following physician: Objective - Vital Signs Vital signs: Vital Signs Temp 98.4 F 10/26/23 08:14 Pulse 165 H 10/26/23 14:00 Resp 17 10/26/23 11:22 BP 128/89 10/26/23 11:22 Pulse Ox 97 10/26/23 11:22 FiO2 Intake & Output 10/25/23 10/26/23 10/26/23 18:59 06:59 18:59 Intake Total 1033 994.167 Output Total 1050 3220 1875 Balance -17 -2225.833 -1875 Intake: IV 30 Invasive Line 4 10 Invasive Line 5 20 Intake, IV Titration 1033 964.167 Amount Mvi, Adult No.4 with Vit 1033 964.167 K 10 ml Trace (Conc-1Ml/ Dose) 1 ml Potassium Acetate 10 meq Sodium Acetate 30 meq Magnesium Sulfate gm 1 gm In Amino Acid 5%-D20w+Lytes*E* 1, 000 ml @ 65 mls/hr IV . [id number] [facility] Rx#:[id number] Output: Gastric Drainage 250 Urine 1050 1500 1625 Emesis 1720 Other: Voiding Method Urinal Urinal # Voids 1 # Bowel Movements 1 - Labs CBC & Chem 7: 10/23/23 07:04 10/26/23 05:56 Labs: Abnormal Lab Results - Last 24 Hours (Table) 10/25/23 10/25/23 10/26/23 Range/Units 18:08 20:12 01:27 Sodium (137-145) mmol/L Creatinine (0.66-1.25) mg/dL Glucose (74-99) mg/dL POC Glucose (mg/dL) 186 H 177 H 156 H (70-110) mg/dL Calcium (8.4-10.2) mg/dL 10/26/23 10/26/23 10/26/23 Range/Units 05:39 05:56 11:57 Sodium 131 L (137-145) mmol/L Creatinine 0.56 L (0.66-1.25) mg/dL Glucose 133 H (74-99) mg/dL POC Glucose (mg/dL) 169 H 161 H (70-110) mg/dL Calcium 7.9 L (8.4-10.2) mg/dL
--- NOTE | 2023-10-26 19:38 | US ---
EXAMINATION TYPE: US venous doppler duplex LE BI DATE OF EXAM: 10/26/2023 12:38 PM COMPARISON: NONE CLINICAL INDICATION: Male, 43 years old with history of DVT; pitting edema SIDE PERFORMED: Bilateral TECHNIQUE: The lower extremity deep venous system is examined utilizing real time linear array sonog noble with graded compression, doppler sonography and color-flow sonography. VESSELS IMAGED: Common Femoral Vein Deep Femoral Vein Greater Saphenous Vein * Femoral Vein Popliteal Vein Small Saphenous Vein * Proximal Calf Veins (* superficial vessels) Right Leg: Negative for DVT Left Leg: Negative for DVT edema noted throughout IMPRESSION: 1. Bilateral lower extremity ultrasound negative for deep venous thrombosis. 2. Note is made of superficial subcutaneous edema present.
[2023-10-27 00:27] LABS: Glucose,Whole Blood 132 mg/dL (70-110)
[2023-10-27 06:00] LABS: Glucose,Whole Blood 164 mg/dL (70-110)
[2023-10-27 08:26] LABS: African American GFR (CKD) >90 (>60 ml/min/1.73 sqM); Anion Gap 7 mmol/L; Blood Urea Nitrogen 23 mg/dL (9-20); Carbon Dioxide 29 mmol/L (22-30); Chloride 97 mmol/L (98-107); Glucose 131 mg/dL (74-99); Non-African American GFR(CKD) >90 (>60 ml/min/1.73 sqM); Phosphorus 4.6 mg/dL (2.5-4.5); Potassium 4.3 mmol/L (3.5-5.1); Sodium 133 mmol/L (137-145)
[2023-10-27 08:46] LABS: Anisocytosis Slight; Basophils % (A) 0 %; Eosinophils % (A) 1 %; HCT 27.4 % (39.0-53.0); HGB 7.8 gm/dL (13.0-17.5); Hypochromasia Marked; Lymphocytes # (A) 0.8 k/uL (1.0-4.8); Lymphocytes % (A) 11 %; MCH 22.5 pg (25.0-35.0); MCHC 28.6 g/dL (31.0-37.0); MCV 78.7 fL (80.0-100.0); Mean Platelet Volume 8.2; Microcytosis Slight; Monocytes # (A) 0.4 k/uL (0-1.0); Monocytes % (A) 6 %; Neutrophils # (A) 5.9 k/uL (1.3-7.7); Neutrophils % (A) 82 %; Platelet Count 510 k/uL (150-450); RBC 3.48 m/uL (4.30-5.90); RDW 17.4 % (11.5-15.5); WBC 7.3 k/uL (3.8-10.6)
--- NOTE | 2023-10-27 11:16 | P.PN ---
Subjective HISTORY OF PRESENT ILLNESS: This is a 43-year-old male who was admitted to the hospital secondary to small bowel obstruction. He is status post laparotomy with lysis of adhesions and resection of small bowel tumor. Patient developed a postoperative ileus and an NG tube was inserted. NG tube remains intact. He remains NPO. cardiology was consulted yesterday secondary to tachycardia. Telemetry this morning reveals sinus tachycardia with heart rate around 110. Patient denies having any palpitations this morning. He does report having palpitations yesterday when his heart rate was higher. He denies any chest pain or pressure. He denies any shortness of breath. PHYSICAL EXAM: VITAL SIGNS: Reviewed. GENERAL: Well-developed in no acute distress. NG tube noted. NECK: Supple. No JVD or thyromegaly LUNGS: Respirations even and unlabored. Lungs essentially clear to auscultation bilaterally. HEART: Mildly tachycardic. Regular rate and rhythm. S1 and S2 heard. EXTREMITIES: Normal range of motion. No clubbing or cyanosis. Peripheral pulses intact. No lower extremity edema ASSESSMENT: Small bowel obstruction, status post exploratory laparotomy with lysis of adhesions and resection of small bowel tumor Postoperative ileus requiring NG tube insertion MRSA and Enterococcus infection Sinus tachycardia, likely physiological due to acute issues History of right-sided jaw cancer status post chemo and radiation History of GERD with erosive esophagitis History of chronic pancreatitis History of alcohol abuse History of PE PLAN: 2D echo has been ordered. Await results. Continue telemetry monitoring. Anticipate improvement of sinus tachycardia with resolution of acute issues Further recommendations pending patient course Nurse practitioner note has been reviewed by physician. Signing provider agrees with the documented findings, assessment, and plan of care documented by RE[employer] MOTEL MANAGER as a scribe. Objective - Vital Signs Vital signs: Vital Signs Temp 98.0 F 10/27/23 07:56 Pulse 116 H 10/27/23 07:56 Resp 17 10/27/23 07:56 BP 131/80 10/27/23 07:56 Pulse Ox 97 10/27/23 07:56 FiO2 Intake & Output 10/26/23 10/27/23 10/27/23 18:59 06:59 18:59 Intake Total 1009.083 Output Total 1875 1600 Balance -1875 -590.917 Intake: IV 20 Invasive Line 4 20 Intake, IV Titration 989.083 Amount Mvi, Adult No.4 with Vit 989.083 K 10 ml Trace (Conc-1Ml/ Dose) 1 ml Potassium Acetate 10 meq Sodium Acetate 40 meq Magnesium Sulfate gm 1 gm In Amino Acid 5%-D20w+Lytes*E* 1, 000 ml @ 65 mls/hr IV . [id number] [facility] Rx#:[id number] Oral 0 Output: Gastric Drainage 250 850 Urine 1625 750 Other: Voiding Method Urinal Urinal Urinal # Voids 2 # Bowel Movements 1 - Labs CBC & Chem 7: 10/27/23 06:29 10/27/23 06:29 Labs: Abnormal Lab Results - Last 24 Hours (Table) 10/26/23 10/27/23 10/27/23 Range/Units 11:57 00:25 05:59 RBC (4.30-5.90) m/uL Hgb (13.0-17.5) gm/dL Hct (39.0-53.0) % MCV (80.0-100.0) fL MCH (25.0-35.0) pg MCHC (31.0-37.0) g/dL RDW (11.5-15.5) % Plt Count (150-450) k/uL Lymphocytes # (1.0-4.8) k/uL Sodium (137-145) mmol/L Chloride (98-107) mmol/L BUN (9-20) mg/dL Creatinine (0.66-1.25) mg/dL Glucose (74-99) mg/dL POC Glucose (mg/dL) 161 H 132 H 164 H (70-110) mg/dL Calcium (8.4-10.2) mg/dL Phosphorus (2.5-4.5) mg/dL 10/27/23 10/27/23 Range/Units 06:29 06:29 RBC 3.48 L (4.30-5.90) m/uL Hgb 7.8 L (13.0-17.5) gm/dL Hct 27.4 L (39.0-53.0) % MCV 78.7 L (80.0-100.0) fL MCH 22.5 L (25.0-35.0) pg MCHC 28.6 L (31.0-37.0) g/dL RDW 17.4 H (11.5-15.5) % Plt Count 510 H (150-450) k/uL Lymphocytes # 0.8 L (1.0-4.8) k/uL Sodium 133 L (137-145) mmol/L Chloride 97 L (98-107) mmol/L BUN 23 H (9-20) mg/dL Creatinine 0.65 L (0.66-1.25) mg/dL Glucose 131 H (74-99) mg/dL POC Glucose (mg/dL) (70-110) mg/dL Calcium 8.0 L (8.4-10.2) mg/dL Phosphorus 4.6 H (2.5-4.5) mg/dL
--- NOTE | 2023-10-27 11:25 | P.PN ---
Subjective Progress Note Date: 10/27/23 42-year-old male with a past medical history of chronic pancreatitis, alcoholism, history of a pulmonary emboli, right-sided jaw cancer status post chemo/radiation treatment, GERD with erosive esophagitis, gastritis, and recent hospitalization from 09/04/2023 through 09/18/2023 for small bowel obstruction st atus post perforation resulting in emergent small bowel resection with [id number]-dl-yfve duodenojejunostomy 09/06/2023 complicated by post operative ileus. He completed multiple days of IV antibiotics and discharged home on PO Augmentin and DEBORA drain. He presented to the emergency department on 10/09/2023 with a chief complaint of increased abdominal pain, abdominal distention and multiple episodes of bilious vomiting. Upon arrival in the emergency department, patient underwent full evaluation. Vital signs upon arrival showed BP 145/95, HR 101, RR 18, T 90 7.8F, 100% on RA. Labs were completed and reviewed CBC showed WBC count 18.5, hemoglobin 10.6, hematocrit 33.2, MCV 79, platelet 634. CMP showed sodium 134, bicarb 20, creatinine 0.48, glucose 167, albumin 2.9. Lipase 473. Lactic acid 1.4. CT abdomen and pelvis was completed revealing diffuse SB dilation with bowel containing gas, feces, and fluid suspicious for ileus versus small bowel obstruction, drainage catheter in place, and chronic pancreatitis changes. Patient reported having bowel movements despite abdominal distention and worsening pain. Patient was admitted to general surgery team and [facility] was consulted for medical management of this patient throughout hospitalization. DEBORA drain cultures positive for MRSA. Patient failed conservative management of small bowel obstruction and was taken for open laparo judd with lysis of adhesions and resection of small bowel tumor with wound VAC placement on 10/16/2023. Pathology sample was sent to lab for analysis and per pathology report, negative for histopathologic changes and negative for malignancy. 10/24 Patient was seen and examined. Continued pain requiring Dialaudid AOC AIRSPACE CONTROL OFFICER pump. No nauea or vomiting. CMP Na 131, Cr 0.5, glu 133, Ca 7.9, alk phos 130, T. protein 5.3. 10/25 Patient was seen and examined. Discussed with RN at bedside. Large emesis of 1.7L this morning. NG tube inserted. KUB shows air-filled loops of colon. Noted to be tachycardic with HR in the 160s, SBP in the 120s and 130s. Transferred to 3S. Cardiology consulted, Echo and venous doppler ordered. EKG and telemetry showing sinus tachycardia. BMP Na 131, Cr 0.56, glu 133, Ca 7.9. 10/26 Patient was seen and examined. HR improved to the 110s. Currently with NG tube to suction. Venous doppler negative for DVT. Echo pending. BMP Na 131, Cr 0.56, glu 133, Ca 7.9. Mag 1.7. General: no distress, appears at stated age Derm: warm, dry Head: atraumatic, normocephalic, symmetric Eyes: EOMI, no lid lag, anicteric sclera Mouth: no lip lesion, mucus membranes moist Cardiovascular: S1S2 tachy, no murmur Lungs: Decreased BS bilateral, no rhonchi, no rales , no accessory muscle use Abdominal: soft, nontender to palpation, postsurgical incision midline with wound VAC and abdominal binder in place Ext: no gross muscle atrophy, no edema, no contractures Neuro: No focal neurologic deficits Psych: Alert and oriented Based on my assessment of this patient, this patient meets a high complexity level of care. Patient has an acute diagnosis of AHRF due to Flu that poses a threat to life or bodily function. Sinus tachycardia: Echo ordered by Cardiology. HR now in the 110s. Venous dopp ler negative for DVT. Saturating on RA, low probability for PE. MRSA + Enterococcus infection: Continue Unasyn 3g IV every 6 hours and vancomycin 1000 mg every 16 hours. Continue to monitor vancomycin trough and renal function closely for signs of vancomycin associated renal toxicity. Recurrent postoperative ileus: Reglan 10 mg IVP every 6 hours scheduled for persistent nausea and to increase bowel motility. Recurrent small bowel obstruction requiring open laparotomy with lysis of adhesions and resection of small bowel tumor on 10/16/2023 Retroperitoneal mass: Pathology negative for malignancy. History of GERD with erosive esophagitis: Protonix 40 mg IV QD. History of gastritis: Protonix as above. Elevated lipase with history of chronic pancreatitis Severe protein calorie malnutrition with BMI of 16.9 kg/m: Dietitian following managing TPN and lipids. Acute postoperative blood loss anemia on anemia of chronic disease: Status post ferrlecit x 3 days. Transfuse if Hg < 7. Thrombocytosis Resolved: HypoK, HypoMag CODE STATUS: NO CODE. DVT Prophylaxis: Heparin SQ GI Prophylaxis: Protonix 40 mg IVP daily Designated medical POA if patient is not able to make medical decisions for themselves: I have reviewed the following senior consultant notes: ID, Surgery note, Cardiology. I have reviewed the results of the following tests: BMP, Mag, Venous doppler I have ordered the following tests: Agree with Echo. BMP and Trough for tomorrow. I have discussed the care of this patient with the following independent historian: RN I have independently interpreted the following test below: I have discussed the management of this patient with the following physician: Objective - Vital Signs Vital signs: Vital Signs Temp 98.0 F 10/27/23 07:56 Pulse 116 H 10/27/23 07:56 Resp 17 10/27/23 07:56 BP 131/80 10/27/23 07:56 Pulse Ox 97 10/27/23 07:56 FiO2 Intake & Output 10/26/23 10/27/23 10/27/23 18:59 06:59 18:59 Intake Total 1009.083 Output Total 1875 1600 Balance -1875 -590.917 Intake: IV 20 Invasive Line 4 20 Intake, IV Titration 989.083 Amount Mvi, Adult No.4 with Vit 989.083 K 10 ml Trace (Conc-1Ml/ Dose) 1 ml Potassium Acetate 10 meq Sodium Acetate 40 meq Magnesium Sulfate gm 1 gm In Amino Acid 5%-D20w+Lytes*E* 1, 000 ml @ 65 mls/hr IV . [id number] [facility] Rx#:[id number] Oral 0 Output: Gastric Drainage 250 850 Urine 1625 750 Other: Voiding Method Urinal Urinal Urinal # Voids 2 # Bowel Movements 1 - Labs CBC & Chem 7: 10/27/23 06:29 10/27/23 06:29 Labs: Abnormal Lab Results - Last 24 Hours (Table) 10/26/23 10/27/23 10/27/23 Range/Units 11:57 00:25 05:59 POC Glucose (mg/dL) 161 H 132 H 164 H (70-110) mg/dL
[2023-10-27 11:56] LABS: Glucose,Whole Blood 170 mg/dL (70-110)
--- NOTE | 2023-10-27 15:27 | P.PN ---
Subjective Progress Note Date: 10/27/23 Principal diagnosis: Reason for follow-up is fever/ileus/obstruction Patient is a 43-year-old -[place] male past medical history significant for right-sided jaw cancer for the patient be treated with chemoradiation therapy, patient also have a history of alcohol abuse possible acute and chronic pancreatitis patient recently did have a prolonged hospital stay for bowel obstruction and this patient who did have a perforated small bowel and status post resection on 09/06/2023 did have prolonged ileus, now presenting back to the hospital abdominal pain and vomiting has been diagnosed with ileus/obstruction.Patient is status post open expiratory laparotomy with lysis o f adhesion excision of small bowel tumor x 3 closure of decompressive enterostomy and drainage of abdominal ascites completed on 10/16/2023. On today's evaluation that is 10/27/2023, the patient continues to be afebrile, the patient is on room air and breathing comfortably, the Pt denies having any c hest pain or cough, the patient still have the NG in no further vomiting still complaining of abdominal pain he denies any further bowel movements. Patient white count is 7.3, creatinine 0.65 Objective - Vital Signs Vital signs: Vital Signs Temp 98.0 F 10/27/23 11:19 Pulse 120 H 10/27/23 11:19 Resp 19 10/27/23 11:19 BP 124/86 10/27/23 11:19 Pulse Ox 100 10/27/23 11:19 FiO2 Intake & Output 10/26/23 10/27/23 10/27/23 18:59 06:59 18:59 Intake Total 1009.083 Output Total 1875 1600 1000 Balance -1875 -590.917 -1000 Weight 46.3 kg Intake: IV 20 Invasive Line 4 20 Intake, IV Titration 989.083 Amount Mvi, Adult No.4 with Vit 989.083 K 10 ml Trace (Conc-1Ml/ Dose) 1 ml Potassium Acetate 10 meq Sodium Acetate 40 meq Magnesium Sulfate gm 1 gm In Amino Acid 5%-D20w+Lytes*E* 1, 000 ml @ 65 mls/hr IV . [id number] [facility] Rx#:[id number] Oral 0 Output: Gastric Drainage 250 850 700 Urine 1625 750 300 Other: Voiding Method Urinal Urinal Urinal # Voids 2 # Bowel Movements 1 - Exam GENERAL DESCRIPTION: Middle-age male up in the chair in no distress RESPIRATORY SYSTEM: Unlabored breathing , decreased breath sounds at bases HEART: S1 S2 regular rate and rhythm , ABDOMEN: Soft , mild distention and tenderness EXTREMITIES: No edema feet - Labs CBC & Chem 7: 10/27/23 06:29 10/27/23 06:29 Labs: Abnormal Lab Results - Last 24 Hours (Table) 10/27/23 10/27/23 10/27/23 Range/Units 00:25 05:59 06:29 RBC (4.30-5.90) m/uL Hgb (13.0-17.5) gm/dL Hct (39.0-53.0) % MCV (80.0-100.0) fL MCH (25.0-35.0) pg MCHC (31.0-37.0) g/dL RDW (11.5-15.5) % Plt Count (150-450) k/uL Lymphocytes # (1.0-4.8) k/uL Sodium 133 L (137-145) mmol/L Chloride 97 L (98-107) mmol/L BUN 23 H (9-20) mg/dL Creatinine 0.65 L (0.66-1.25) mg/dL Glucose 131 H (74-99) mg/dL POC Glucose (mg/dL) 132 H 164 H (70-110) mg/dL Calcium 8.0 L (8.4-10.2) mg/dL Phosphorus 4.6 H (2.5-4.5) mg/dL 10/27/23 10/27/23 Range/Units 06:29 11:54 RBC 3.48 L (4.30-5.90) m/uL Hgb 7.8 L (13.0-17.5) gm/dL Hct 27.4 L (39.0-53.0) % MCV 78.7 L (80.0-100.0) fL MCH 22.5 L (25.0-35.0) pg MCHC 28.6 L (31.0-37.0) g/dL RDW 17.4 H (11.5-15.5) % Plt Count 510 H (150-450) k/uL Lymphocytes # 0.8 L (1.0-4.8) k/uL Sodium (137-145) mmol/L Chloride (98-107) mmol/L BUN (9-20) mg/dL Creatinine (0.66-1.25) mg/dL Glucose (74-99) mg/dL POC Glucose (mg/dL) 170 H (70-110) mg/dL Calcium (8.4-10.2) mg/dL Phosphorus (2.5-4.5) mg/dL Assessment and Plan (1) Leukocytosis Current Visit: Yes Status: Acute Code(s): D72.829 - ELEVATED WHITE BLOOD CELL COUNT, UNSPECIFIED SNOMED Code(s): 541424376 (2) Ileus Current Visit: Yes Status: Acute Code(s): K56.7 - ILEUS, UNSPECIFIED SNOMED Code(s): 868411334 (3) MRSA (methicillin resistant staph aureus) culture positive Current Visit: Yes Status: Acute Code(s): Z22.322 - CARRIER OR SUSPECTED CARRIER OF METHICILLIN RESIS STAPH SNOMED Code(s): 382776021 Plan: 1patient presented hospital with sepsis in this patient who did have an elevated white count tachycardia source likely abdominal pain this patient did have predominantly abdominal symptoms with abdominal pain and vomiting CT has been suggestive of ileus/obstruction and will likely need to cover for the enteric gram-negative both aerobes and anaerobes 2- cultures from the [facility] grew MRSA as well as Enterococcus 3-patient is status post extensive abdominal surgery did not mention any perforation or abscess no cultures 4- patient prolonged ileus expected per surgical note and is being monitored closely by surgery, patient did have some worsening as he did have extensive vomiting requiring NG tube placement and transferred to the telemetry unit as of 10/26/2023 5-patient to continue with Unasyn and vancomycin and watch his kidney function closely Dictation was produced using LIFT12 dictation software. please excuse any grammatical, word or spelling errors. Time with Patient: Less than 30
[2023-10-27] MEDS: [UNRECOGNIZED DRUG - OTHER] IV SCH (16:30)
[2023-10-27] MEDS: SODIUM CHLORIDE IV SCH (16:30)
[2023-10-27] MEDS: POTASSIUM ACETATE IV SCH (16:30)
[2023-10-27 18:24] LABS: Glucose,Whole Blood 137 mg/dL (70-110)
[2023-10-28 00:03] LABS: Glucose,Whole Blood 152 mg/dL (70-110)
[2023-10-28 06:04] LABS: Glucose,Whole Blood 138 mg/dL (70-110)
--- NOTE | 2023-10-28 07:57 | P.PN ---
Subjective Progress Note Date: 10/27/23 CHIEF COMPLAINT: Bowel obstruction HISTORY OF PRESENT ILLNESS: The patient is a 43-year-old male status post exploratory laparotomy for bowel resection, 10/16/2023. Over the weekend, he developed supraventricular tachycardia heart rates of 140s. Patient reports after placement of nasogastric tube his heart rate grew worse. He did have emesis of large amounts this weekend. No emesis today. NG tube with output less than 300 cc. Patient reports passage of flatus including multiple bowel movements. He reports abdominal pain is improved. ROS: No fevers or chills. No new chest pain. No productive sputum PHYSICAL EXAM: VITAL SIGNS: Reviewed CONSTITUTIONAL: Well developed and in no acute distress. EYES: Conjuctivae without sclera icterus. Extraocular movements grossly intact. HEAD, EARS, NOSE, THROAT: Moist buccal mucosa. Head is atraumatic, normocephalic. Hears conversational speech. RESPIRATORY: Non-labored respirations and equal bilateral excursions. CARDIOVASCULAR: Palpable 2+ radial pulses. ABDOMEN: Dressing clean dry intact. MUSCULOSKELETAL: No gross deformity of the lower extremities noted. No clubbing. No cyanosis. SKIN: Good skin turgor. Well perfused. NEUROLOGIC: Cranial nerves II through XII grossly intact. No focal or lateralizing signs. PSYCH: Appropriate affect. Alert and oriented to person, place and time. CLINICAL LABS: Reviewed. Hemoglobin down less than 8.0, anemia. Magnesium and potassium within normal limits. XRAY: Abdominal x-ray over the week, reviewed demonstrates decreased small bowel distention. Gas within the colon. ASSESSMENT: 1. Small bowel obstruction 2. History of perforated small bowel 3. Severe protein malnutrition 4. Chronic constipation 5. Dehydration 6. Prior history of tracheostomy and mandibular cancer 7. History of marijuana use. 8. Expected ileus 9. Hypomagnesia 10. Iron deficiency anemia 11. Underweight, BMI 16.5 12. Supraventricular tachycardia PLAN: 1. May restart clear liquid diet. 2. Possibility of starting Entereg may be of benefit for ileus. 3. Physical therapy Occupational Therapy 4. Echocardiogram for supraventricular tachycardia per cardiology Objective - Vital Signs Vital signs: Vital Signs Temp 97.9 F 10/28/23 04:00 Pulse 114 H 10/28/23 04:00 Resp 16 10/28/23 04:00 BP 116/72 10/28/23 04:00 Pulse Ox 96 10/28/23 04:00 FiO2 Intake & Output 10/27/23 10/28/23 10/28/23 18:59 06:59 18:59 Intake Total 0 Output Total 2300 300 Balance -2300 -300 Weight 46.3 kg Intake: Oral 0 Output: Gastric Drainage 1400 Urine 900 300 Other: Voiding Method Urinal Urinal # Voids 2 - Labs CBC & Chem 7: 10/27/23 06:29 10/27/23 06:29 Labs: Abnormal Lab Results - Last 24 Hours (Table) 10/27/23 10/27/23 10/27/23 Range/Units 06:29 06:29 11:54 RBC 3.48 L (4.30-5.90) m/uL Hgb 7.8 L (13.0-17.5) gm/dL Hct 27.4 L (39.0-53.0) % MCV 78.7 L (80.0-100.0) fL MCH 22.5 L (25.0-35.0) pg MCHC 28.6 L (31.0-37.0) g/dL RDW 17.4 H (11.5-15.5) % Plt Count 510 H (150-450) k/uL Lymphocytes # 0.8 L (1.0-4.8) k/uL Sodium 133 L (137-145) mmol/L Chloride 97 L (98-107) mmol/L BUN 23 H (9-20) mg/dL Creatinine 0.65 L (0.66-1.25) mg/dL Glucose 131 H (74-99) mg/dL POC Glucose (mg/dL) 170 H (70-110) mg/dL Calcium 8.0 L (8.4-10.2) mg/dL Phosphorus 4.6 H (2.5-4.5) mg/dL 10/27/23 10/28/23 10/28/23 Range/Units 18:21 00:01 06:02 RBC (4.30-5.90) m/uL Hgb (13.0-17.5) gm/dL Hct (39.0-53.0) % MCV (80.0-100.0) fL MCH (25.0-35.0) pg MCHC (31.0-37.0) g/dL RDW (11.5-15.5) % Plt Count (150-450) k/uL Lymphocytes # (1.0-4.8) k/uL Sodium (137-145) mmol/L Chloride (98-107) mmol/L BUN (9-20) mg/dL Creatinine (0.66-1.25) mg/dL Glucose (74-99) mg/dL POC Glucose (mg/dL) 137 H 152 H 138 H (70-110) mg/dL Calcium (8.4-10.2) mg/dL Phosphorus (2.5-4.5) mg/dL
[2023-10-28 08:28] LABS: African American GFR (CKD) >90 (>60 ml/min/1.73 sqM); Anion Gap 5 mmol/L; Blood Urea Nitrogen 22 mg/dL (9-20); Carbon Dioxide 27 mmol/L (22-30); Chloride 99 mmol/L (98-107); Glucose 125 mg/dL (74-99); Magnesium 1.8 mg/dL (1.6-2.3); Non-African American GFR(CKD) >90 (>60 ml/min/1.73 sqM); Phosphorus 3.8 mg/dL (2.5-4.5); Potassium 4.6 mmol/L (3.5-5.1); Sodium 131 mmol/L (137-145)
[2023-10-28] MEDS: PANTOPRAZOLE 40 MG TABLET PO SCH (09:59)
--- NOTE | 2023-10-28 10:05 | CA ---
Transthoracic Echo Report Name: Adilson Otero Age: 43 Gender: M : 1980 Exam Date: 10/27/2023 15:57 Exam Location: [facility] Ht (in): 66 Wt (lb): 102 Ordering Physician: Juan José Ferguson MD ([id number]) Attending/Referring Phys: General House Worker Kary Lloyd RDCS Procedure CPT: Indications: sinus tachycardia Cardiac Hx: Technical Quality: Good Contrast 1: Total Dose (mL): Contrast 2: Total Dose (mL): MEASUREMENTS (Male / Female) Normal Values 2D ECHO LV Diastolic Diameter PLAX 4.7 cm 4.2 - 5.9 / 3.9 - 5.3 cm LV Systolic Diameter PLAX 2.8 cm IVS Diastolic Thickness 1.0 cm 0.6 - 1.0 / 0.6 - 0.9 cm LVPW Diastolic Thickness 1.1 cm 0.6 - 1.0 / 0.6 - 0.9 cm LV Relative Wall Thickness 0.5 RV Internal Dim ED PLAX 3.2 cm LA Systolic Diameter LX 3.0 cm 3.0 - 4.0 / 2.7 - 3.8 cm LV Diastolic Volume MOD BP 75.1 cm??? 67 - 155 / 56 - 104 cm??? LV Systolic Volume MOD BP 20.9 cm??? 22 - 58 / 19 - 49 cm??? LV Ejection Fraction MOD BP 72.1 % >= 55 % LV Cardiac Index MOD BP 4471.1 cm???/min???m??? LV Diastolic Volume MOD 4C 83.8 cm??? LV Systolic Volume MOD 4C 27.0 cm??? LV Ejection Fraction MOD 4C 67.8 % LV Cardiac Index MOD 4C 4694.9 cm???/min???m??? LV Diastolic Length 4C 7.5 cm LV Systolic Length 4C 5.6 cm LV Diastolic Volume MOD 2C 27.3 cm??? LV Systolic Volume MOD 2C 16.9 cm??? LV Ejection Fraction MOD 2C 38.1 % LV Cardiac Index MOD 2C 858.2 cm???/min???m??? LV Diastolic Length 2C 2.9 cm LV Systolic Length 2C 5.5 cm LA Volume 38.7 cm??? 18 - 58 / 22 - 52 cm??? LA Volume Index 26.6 cm???/m??? 16 - 28 cm???/m??? M-MODE Aortic Root Diameter MM 3.1 cm MV E Point Septal Separation 0.5 cm DOPPLER AV Peak Velocity 118.7 cm/s AV Peak Gradient 5.6 mmHg MV Area PHT 8.7 cm??? Mitral E Point Velocity 69.1 cm/s Mitral A Point Velocity 82.6 cm/s Mitral E to A Ratio 0.8 MV Deceleration Time 87.1 ms LV E' Lateral Velocity 16.1 cm/s Mitral E to LV E' Lateral Ratio 4.3 LV E' Septal Velocity 7.7 cm/s Mitral E to LV E' Septal Ratio 9.0 FINDINGS Left Ventricle Left ventricular ejection fraction is estimated at 60-65 %. Left ventricular cavity size normal. Left ventricular wall thickness normal. Right Ventricle Normal right ventricular size. Unable to estimate the right ventricular systolic pressure. Right Atrium Normal right atrial size. Left Atrium Normal left atrial size. Mitral Valve Structurally normal mitral valve. No mitral stenosis, regurgitation or prolapse. Aortic Valve Trileaflet aortic valve. No aortic valve stenosis or regurgitation. Tricuspid Valve Structurally normal tricuspid valve. No tricuspid stenosis, regurgitation or prolapse. Pulmonic Valve Structurally normal pulmonic valve. No pulmonic regurgitation. Pericardium Small pericardial effusion. Aorta Normal size aortic root and proximal ascending aorta. CONCLUSIONS Left ventricular ejection fraction 60-65% No mitral regurgitation No tricuspid regurgitation Small pericardial effusion without tamponade physiology Previewed by: Dr. Krystian Maria DO (Electronically Signed) Final Date: 28 October 2023 10:04
[2023-10-28 11:57] LABS: Glucose,Whole Blood 135 mg/dL (70-110)
--- NOTE | 2023-10-28 12:06 | P.PN ---
Subjective HISTORY OF PRESENT ILLNESS: This is a 43-year-old male who was admitted to the hospital secondary to small bowel obstruction. He is status post laparotomy with lysis of adhesions and resection of small bowel tumor. Patient developed a postoperative ileus and an NG tube was inserted. NG tube remains intact. He remains NPO. cardiology was consulted yesterday secondary to tachycardia. Telemetry this morning reveals sinus tachycardia with heart rate around 110. Patient denies having any palpitations this morning. He does report having palpitations yesterday when his heart rate was higher. He denies any chest pain or pressure. He denies any shortness of breath. 10/28/2023 Patient examined this morning at the bedside. Patient currently denies chest pain or pressure. He denies shortness of breath. He continues to have an NG tube in place. General surgery is following. Echocardiogram completed revealing ejection fraction 60 to 65% with small pericardial effusion without tamponade physiology. PHYSICAL EXAM: VITAL SIGNS: Reviewed. GENERAL: Well-developed in no acute distress. NG tube noted. NECK: Supple. No JVD or thyromegaly LUNGS: Respirations even and unlabored. Lungs essentially clear to auscultation bilaterally. HEART: Mildly tachycardic. Regular rate and rhythm. S1 and S2 heard. EXTREMITIES: Normal range of motion. No clubbing or cyanosis. Peripheral pulses intact. No lower extremity edema ASSESSMENT: Small bowel obstruction, status post exploratory laparotomy with lysis of adhesions and resection of small bowel tumor Postoperative ileus requiring NG tube insertion MRSA and Enterococcus infection Sinus tachycardia, likely physiological due to acute issues History of right-sided jaw cancer status post chemo and radiation History of GERD with erosive esophagitis History of chronic pancreatitis History of alcohol abuse History of PE PLAN: Continue current cardiac medications Continue telemetry monitoring Anticipate improvement of sinus tachycardia with resolution of acute issues Patient is currently stable from a cardiac standpoint with no further inpatient recommendations We will sign off. Please reconsult if needed. Nurse practitioner note has been reviewed by physician. Signing provider agrees with the documented findings, assessment, and plan of care documented by SPECIAL EDUCATION PROFESSOR as a scribe. Objective - Vital Signs Vital signs: Vital Signs Temp 97.4 F L 10/28/23 08:20 Pulse 131 H 10/28/23 11:54 Resp 16 10/28/23 11:54 BP 110/79 10/28/23 11:54 Pulse Ox 100 10/28/23 11:54 FiO2 Intake & Output 10/27/23 10/28/23 10/28/23 18:59 06:59 18:59 Intake Total 0 1063 Output Total 2300 300 175 Balance -2300 -300 888 Weight 46.3 kg Intake: Intake, IV Titration 1063 Amount Sodium Chloride 4Meq/ml 1063 Vial 80 meq Potassium Acetate 40 meq Magnesium Sulfate gm 1 gm Calcium Gluconate 1 gm Mvi, Adult No.4 with Vit K 10 ml Trace (Conc-1Ml/Dose) 1 ml In Amino Acids 5 %/ Dextrose 20 % 1,000 ml @ 65 mls/hr IV .[id number] [facility] Rx#:[id number] Oral 0 Output: Gastric Drainage 1400 Urine 900 300 175 Other: Voiding Method Urinal Urinal # Voids 2 - Labs CBC & Chem 7: 10/27/23 06:29 10/28/23 06:24 Labs: Abnormal Lab Results - Last 24 Hours (Table) 10/27/23 10/28/23 10/28/23 Range/Units 18:21 00:01 06:02 Sodium (137-145) mmol/L BUN (9-20) mg/dL Creatinine (0.66-1.25) mg/dL Glucose (74-99) mg/dL POC Glucose (mg/dL) 137 H 152 H 138 H (70-110) mg/dL Calcium (8.4-10.2) mg/dL 10/28/23 10/28/23 Range/Units 06:24 11:55 Sodium 131 L (137-145) mmol/L BUN 22 H (9-20) mg/dL Creatinine 0.65 L (0.66-1.25) mg/dL Glucose 125 H (74-99) mg/dL POC Glucose (mg/dL) 135 H (70-110) mg/dL Calcium 8.0 L (8.4-10.2) mg/dL
--- NOTE | 2023-10-28 13:17 | P.PN ---
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 He completed multiple days of IV antibiotics and discharged home on PO Augmentin and DEBORA drain. He presented to the emergency department on 10/09/2023 with a chief complaint of increased abdominal pain, abdominal distention and multiple episodes of bilious vomiting. Upon arrival in the emergency department, patient underwent full evaluation. Vital signs upon arrival showed BP 145/95, HR 101, RR 18, T 90 7.8F, 100% on RA. Labs were completed and revie wed CBC showed WBC count 18.5, hemoglobin 10.6, hematocrit 33.2, MCV 79, platelet 634. CMP showed sodium 134, bicarb 20, creatinine 0.48, glucose 167, albumin 2.9. Lipase 473. Lactic acid 1.4. CT abdomen and pelvis was completed revealing diffuse SB dilation with bowel containing gas, feces, and fluid suspicious for ileus versus small bowel obstruction, drainage catheter in place, and chronic pancreatitis changes. Patient reported having bowel movements despite abdominal distention and worsening pain. Patient was admitted to general surgery team and [facility] was consulted for medical management of this patient throughout hospitalization. DEBORA drain cultures positive for MRSA. Patient failed conservative management of small bowel obstruction and was taken for open laparotomy with lysis of adhesions and resection of small bowel tumor with wound VAC placement on 10/16/2023. Pathology sample was sent to lab for analysis and per pathology report, negative for histopathologic changes and negative for malignancy. Patient with postoperative ileus resulting in nausea and vomiting and reinsertion of NG tube on 10/26/2023. Physical exam: Patient seen and fully evaluated at bedside this morning. Patient accidentally removed NG tube and it is being replaced by RN at this time. Patient currently reports abdominal pain 8 out of 10 at this time but states it is controlled on current Dilaudid CASER. He denies any further nausea or vomiting. Patient reports continuing to pass flatus but denies having any further bowel movements. Vital signs reviewed and stable. General: Nontoxic, no acute distress and appears older than stated age. Thin and frail. Derm: Skin warm and dry, normal coloration for ethnicity. Head: Atraumatic, normocephalic and symmetric. Eyes: EOMs intact, no lid lag, and anicteric sclera Mouth: no lip lesions, mucus membranes moist Cardiovascular: regular rate and rhythm with normal S1S2, no murmur, positive posterior tibial pulses bilaterally, and cap refill < 2 seconds. Lungs: Respirations even, regular, and unlabored on room air. Lungs CTA bilaterally, no rhonchi, no rales, no wheezing, and no accessory muscle usage. Abdominal: Abdomen distended. Postsurgical incision midline with dressing clean, dry, and intact. Abdominal binder in place. NG tube in place. Ext: ROM intact. No gross muscle atrophy, no edema, no contractures Neuro: Speech clear, face symmetrical and CN II-XII grossly intact with no noted focal neuro deficits Psych: Alert and oriented to person, place, time, and situation. Appropriate and pleasant affect. Assessment and Plan of Care: Sinus tachycardia -Cardiology following. Reviewed documentation in chart. -Bilateral lower extremity venous Dopplers were completed negative for DVTs. -Echocardiogram completed revealing a preserved EF of 60 to 65% with small pericardial effusion without tamponade physiology. -Patient to remain on continuous telemetry monitoring. MRSA infection Recurrent postoperative ileus Recurrent small bowel obstruction requiring open laparotomy with lysis of adhesions and resection of small bowel tumor on 10/16/2023 Retroperitoneal mass History of GERD with erosive esophagitis History of gastritis Elevated lipase with history of chronic pancreatitis Severe protein calorie malnutrition with BMI of 16.9 kg/m -General surgery following, took patient for open laparotomy with lysis of adhesions and resection of small bowel tumor with wound VAC placement on 10/16/2023 -Symptomatic care and pain management. Zofran 4 mg IVP every 8 hours as needed for nausea and/or vomiting -General surgery managing patient on Dilaudid CASER for pain management. -NG tube in place to low intermittent suctioning. -Continue Reglan 10 mg IVP every 6 hours scheduled for persistent nausea and to increase bowel motility. -Continue Protonix 40 mg IVP daily -Dietitian following managing TPN and lipids. -DEBORA drain culture was positive for MRSA and group D enterococcus faecalis. -Continue Unasyn 3g IV every 6 hours and vancomycin 1000 mg every 16 hours. Continue to monitor vancomycin trough and renal function closely for signs of vancomycin associated renal toxicity. -Blood cultures showed no growth -Pathology sample was sent to lab for analysis and per pathology report, negative for histopathologic changes and negative for malignancy. Acute postoperative blood loss anemia on anemia of chronic disease Hemoglobin stable 7.8. Will continue to monitor closely with repeat morning CBC and transfuse if needed for hemoglobin less than 7. Iron profile resulting showing total iron of 17, TIBC of 171, iron percentage 9.94, transferrin of 122, and ferritin of 366. Patient received IV Ferrlecit 125 mg daily x 3 days and once tolerating oral intake should be started on ferrous sulfate 325 mg daily. Hypokalemia, resolved and pt is on TPN/Lipids Hypomagnesemia, resolved and pt is on TPN/Lipids Thrombocytosis. Platelet count again elevated 510. Likely reactive secondary to postoperative ileus. History of small bowel perforation status post emergent small bowel resection with [id number] duodenojejunostomy 09/06/2023 Data and imaging reviewed: Vital signs reviewed. Blood pressure 126/74, heart rate 97, respiratory rate 16, temp 97.4 F, and SpO2 of 96% on room air. Morning labs reviewed.. BMP revealing mild hyponatremia with sodium 131, normal potassium of 4.6, glucose 117 and renal function showing mild prerenal azotemia with BUN of 22, creatinine 0.65, and GFR greater than 90. Blood glucose 125. Magnesium 1.8. Documented gastric output over the past 24 hours was 1400 cc. Echocardiogram completed revealing a preserved EF of 60 to 65% with small pericardial effusion without tamponade physiology. CODE STATUS: FULL CODE DVT Prophylaxis: Lovenox SQ GI Prophylaxis: Protonix Thank you for allowing us to participate in the care of this pleasant patient. Do not hesitate to contact us with questions. Someone can be reached from the [facility] hospitalist group all hours of the day at [phone] or via perfect serve. Patient was seen independently by Nurse Pracitioner. This document was prepared using [employer] dictation software. Please allow for errors in sr. payroll manager, while rare they do occur. Objective - Vital Signs Vital signs: Vital Signs Temp 97.9 F 10/28/23 04:00 Pulse 114 H 10/28/23 04:00 Resp 16 10/28/23 04:00 BP 116/72 10/28/23 04:00 Pulse Ox 96 10/28/23 04:00 FiO2 Intake & Output 10/27/23 10/28/23 10/28/23 18:59 06:59 18:59 Intake Total 0 Output Total 2300 300 Balance -2300 -300 Weight 46.3 kg Intake: Oral 0 Output: Gastric Drainage 1400 Urine 900 300 Other: Voiding Method Urinal Urinal # Voids 2 - Labs CBC & Chem 7: 10/27/23 06:29 10/28/23 06:24 Labs: Abnormal Lab Results - Last 24 Hours (Table) 10/27/23 10/27/23 10/27/23 Range/Units 06:29 06:29 11:54 RBC 3.48 L (4.30-5.90) m/uL Hgb 7.8 L (13.0-17.5) gm/dL Hct 27.4 L (39.0-53.0) % MCV 78.7 L (80.0-100.0) fL MCH 22.5 L (25.0-35.0) pg MCHC 28.6 L (31.0-37.0) g/dL RDW 17.4 H (11.5-15.5) % Plt Count 510 H (150-450) k/uL Lymphocytes # 0.8 L (1.0-4.8) k/uL Sodium 133 L (137-145) mmol/L Chloride 97 L (98-107) mmol/L BUN 23 H (9-20) mg/dL Creatinine 0.65 L (0.66-1.25) mg/dL Glucose 131 H (74-99) mg/dL POC Glucose (mg/dL) 170 H (70-110) mg/dL Calcium 8.0 L (8.4-10.2) mg/dL Phosphorus 4.6 H (2.5-4.5) mg/dL 10/27/23 10/28/23 10/28/23 Range/Units 18:21 00:01 06:02 RBC (4.30-5.90) m/uL Hgb (13.0-17.5) gm/dL Hct (39.0-53.0) % MCV (80.0-100.0) fL MCH (25.0-35.0) pg MCHC (31.0-37.0) g/dL RDW (11.5-15.5) % Plt Count (150-450) k/uL Lymphocytes # (1.0-4.8) k/uL Sodium (137-145) mmol/L Chloride (98-107) mmol/L BUN (9-20) mg/dL Creatinine (0.66-1.25) mg/dL Glucose (74-99) mg/dL POC Glucose (mg/dL) 137 H 152 H 138 H (70-110) mg/dL Calcium (8.4-10.2) mg/dL Phosphorus (2.5-4.5) mg/dL
--- NOTE | 2023-10-28 15:43 | P.PN ---
Subjective Progress Note Date: 10/28/23 CHIEF COMPLAINT: Recurrent small bowel obstruction HISTORY OF PRESENT ILLNESS: Patient is status post open exploratory laparotomy with lysis of adhesions, excision of small bowel tumor x 3 closure of decom pressive enterostomy, drainage of abdominal ascites and partial omentectomy on 10/16/23. Patient had SVT over the weekend. He is followed by cardiology. Patient continues to complain of abdominal pain and abdominal distention. He reports that he feels better than yesterday. He reports that he does not feel hungry. He did have bowel movements yesterday and is having flatus. Afebrile. Tachycardia improved. Patient evaluated by cardiology. They have signed off. Sodium 131 potassium 4.6 magnesium 1.8 PHYSICAL EXAM: VITAL SIGNS: Reviewed GENERAL: Well-developed in no acute distress. HEENT: No sclera icterus. Extraocular movements grossly intact. Moist buccal mucosa. Head is atraumatic, normocephalic. Hears conversational speech. No nasal drainage. NECK: Supple without lymphadenopathy. CHEST: Non-labored respirations and equal bilateral excursions. CARDIOVASCULAR: Palpable 2+ radial pulses. ABDOMEN: distended, dressing clean, dry and intact MUSCULOSKELETAL: No clubbing or cyanosis. NEUROLOGIC: No focal or lateralizing signs. Cranial nerves II through XII grossly intact. PSYCH: Appropriate affect. Alert and oriented to person, place and time. SKIN: Well perfused. Good skin turgor. ASSESSMENT: 1. Small bowel obstruction 2. History of perforated small bowel 3. Severe protein malnutrition 4. Chronic constipation 5. Dehydration 6. Prior history of tracheostomy and mandibular cancer 7. History of marijuana use. 8. Expected ileus 9. Hypomagnesia 10. Iron deficiency anemia 11. Underweight, BMI 16.5 12. Supraventricular tachycardia PLAN: -Keep patient n.p.o. except for ice chips and popsicles -Continue TPN for nutrition support -Continue lactulose or bowel regimen -Continue Reglan -Encourage patient to increase activity level -Continue antibiotics -DVT prophylaxis Lovenox Physician Drainlayer note has been reviewed by physician. Signing provider agrees with the documented findings, assessment, and plan of care. Objective - Vital Signs Vital signs: Vital Signs Temp 97.4 F L 10/28/23 08:20 Pulse 131 H 10/28/23 14:00 Resp 16 10/28/23 14:00 BP 110/79 10/28/23 11:54 Pulse Ox 100 10/28/23 11:54 FiO2 Intake & Output 10/27/23 10/28/23 10/28/23 18:59 06:59 18:59 Intake Total 0 1063 Output Total 2300 300 275 Balance -2300 -300 788 Weight 46.3 kg 46.3 kg Intake: Intake, IV Titration 1063 Amount Sodium Chloride 4Meq/ml 1063 Vial 80 meq Potassium Acetate 40 meq Magnesium Sulfate gm 1 gm Calcium Gluconate 1 gm Mvi, Adult No.4 with Vit K 10 ml Trace (Conc-1Ml/Dose) 1 ml In Amino Acids 5 %/ Dextrose 20 % 1,000 ml @ 70 mls/hr IV .[id number] COUNT INCLUDES THE [facility] Rx#:[id number] Oral 0 Output: Gastric Drainage 1400 Urine 900 300 275 Other: Voiding Method Urinal Urinal Urinal # Voids 2 - Labs CBC & Chem 7: 10/27/23 06:29 10/28/23 06:24 Labs: Abnormal Lab Results - Last 24 Hours (Table) 10/27/23 10/28/23 10/28/23 Range/Units 18:21 00:01 06:02 Sodium (137-145) mmol/L BUN (9-20) mg/dL Creatinine (0.66-1.25) mg/dL Glucose (74-99) mg/dL POC Glucose (mg/dL) 137 H 152 H 138 H (70-110) mg/dL Calcium (8.4-10.2) mg/dL 10/28/23 10/28/23 Range/Units 06:24 11:55 Sodium 131 L (137-145) mmol/L BUN 22 H (9-20) mg/dL Creatinine 0.65 L (0.66-1.25) mg/dL Glucose 125 H (74-99) mg/dL POC Glucose (mg/dL) 135 H (70-110) mg/dL Calcium 8.0 L (8.4-10.2) mg/dL
--- NOTE | 2023-10-28 16:14 | P.PN ---
Subjective Progress Note Date: 10/28/23 Principal diagnosis: Reason for follow-up is fever/ileus/obstruction Patient is a 43-year-old -Citizen Of The [place] male past medical history significant for right-sided jaw cancer for the patient be treated with chemoradiation therapy, patient also have a history of alcohol abuse possible acute and chronic pancreatitis patient recently did have a prolonged hospital stay for bowel obstruction and this patient who did have a perforated small bowel and status post resection on 09/06/2023 did have prolonged ileus, now presenting back to the hospital abdominal pain and vomiting has been diagnosed with ileus/obstruction.Patient is status post open expiratory laparotomy with lysis o f adhesion excision of small bowel tumor x 3 closure of decompressive enterostomy and drainage of abdominal ascites completed on 10/16/2023. On today's evaluation that is 10/28/2023, Patient is afebrile patient is currently on room air and denies having any shortness of breath, the patient denies any chest pain or cough, the patient denies any nausea vomiting still have the NG in no worsening abdominal pain and no bowel movement. Patient creatinine 0.65 Objective - Vital Signs Vital signs: Vital Signs Temp 98.0 F 10/28/23 16:00 Pulse 107 H 10/28/23 16:00 Resp 16 10/28/23 16:00 BP 124/73 10/28/23 16:00 Pulse Ox 99 10/28/23 16:00 FiO2 Intake & Output 10/27/23 10/28/23 10/28/23 18:59 06:59 18:59 Intake Total 0 1464.917 Output Total 2300 300 2695 Balance -2300 -300 -1230.083 Weight 46.3 kg 46.3 kg Intake: Intake, IV Titration 1464.917 Amount Sodium Chloride 4Meq/ml 1464.917 Vial 80 meq Potassium Acetate 40 meq Magnesium Sulfate gm 1 gm Calcium Gluconate 1 gm Mvi, Adult No.4 with Vit K 10 ml Trace (Conc-1Ml/Dose) 1 ml In Amino Acids 5 %/ Dextrose 20 % 1,000 ml @ 70 mls/hr IV .[id number] [facility] Rx#:[id number] Oral 0 Output: Gastric Drainage 1400 2000 Urine 900 300 695 Other: Voiding Method Urinal Urinal Urinal # Voids 2 - Exam GENERAL DESCRIPTION: Middle-age male up in the chair in no distress RESPIRATORY SYSTEM: Unlabored breathing , decreased breath sounds at bases HEART: S1 S2 regular rate and rhythm , ABDOMEN: Soft , mild distention and tenderness EXTREMITIES: No edema feet - Labs CBC & Chem 7: 10/27/23 06:29 10/28/23 06:24 Labs: Abnormal Lab Results - Last 24 Hours (Table) 10/27/23 10/28/23 10/28/23 Range/Units 18:21 00:01 06:02 Sodium (137-145) mmol/L BUN (9-20) mg/dL Creatinine (0.66-1.25) mg/dL Glucose (74-99) mg/dL POC Glucose (mg/dL) 137 H 152 H 138 H (70-110) mg/dL Calcium (8.4-10.2) mg/dL 10/28/23 10/28/23 Range/Units 06:24 11:55 Sodium 131 L (137-145) mmol/L BUN 22 H (9-20) mg/dL Creatinine 0.65 L (0.66-1.25) mg/dL Glucose 125 H (74-99) mg/dL POC Glucose (mg/dL) 135 H (70-110) mg/dL Calcium 8.0 L (8.4-10.2) mg/dL Assessment and Plan (1) Leukocytosis Current Visit: Yes Status: Acute Code(s): D72.829 - ELEVATED WHITE BLOOD CELL COUNT, UNSPECIFIED SNOMED Code(s): 044459218 (2) Ileus Current Visit: Yes Status: Acute Code(s): K56.7 - ILEUS, UNSPECIFIED SNO MED Code(s): 022464508 (3) MRSA (methicillin resistant staph aureus) culture positive Current Visit: Yes Status: Acute Code(s): Z22.322 - CARRIER OR SUSPECTED CARRIER OF METHICILLIN RESIS STAPH SNOMED Code(s): 105372800 Plan: 1patient presented hospital with sepsis in this patient who did have an elevated white count tachycardia source likely abdominal pain this patient did have predominantly abdominal symptoms with abdominal pain and vomiting CT has been suggestive of ileus/obstruction and will likely need to cover for the en teric gram-negative both aerobes and anaerobes 2- cultures from the DEBORA grew MRSA as well as Enterococcus 3-patient is status post extensive abdominal surgery did not mention any perforation or abscess no cultures 4- patient prolonged ileus expected per surgical note and is being monitored closely by surgery, patient did have some worsening as he did have extensive vomiting requiring NG tube placement and transferred to the telemetry unit as of 10/26/2023 5-patient is currently covered with with Unasyn and vancomycin, creatinine has been normal will discuss further with surgical team as should be able to slowly wean off his antibiotics Dictation was produced using [employer] dictation software. please excuse any grammatical, word or spelling errors. Time with Patient: Less than 30
[2023-10-28 18:12] LABS: Glucose,Whole Blood 158 mg/dL (70-110)
[2023-10-29 00:02] LABS: Glucose,Whole Blood 179 mg/dL (70-110)
[2023-10-29 05:49] LABS: Glucose,Whole Blood 148 mg/dL (70-110)
[2023-10-29] MEDS: [UNRECOGNIZED DRUG - OTHER] IV SCH (06:52)
[2023-10-29] MEDS: POTASSIUM ACETATE IV SCH (06:52)
[2023-10-29] MEDS: SODIUM CHLORIDE IV SCH (06:52)
[2023-10-29 11:13] LABS: ALT 9 U/L (4-49); AST 18 U/L (17-59); African American GFR (CKD) >90 (>60 ml/min/1.73 sqM); Albumin 2.3 g/dL (3.5-5.0); Alkaline Phosphatase 167 U/L (38-126); Anion Gap 3 mmol/L; Blood Urea Nitrogen 22 mg/dL (9-20); Calcium 8.1 mg/dL (8.4-10.2); Carbon Dioxide 26 mmol/L (22-30); Chloride 103 mmol/L (98-107); Glucose 175 mg/dL (74-99); Magnesium 1.7 mg/dL (1.6-2.3); Non-African American GFR(CKD) >90 (>60 ml/min/1.73 sqM); Phosphorus 3.2 mg/dL (2.5-4.5); Potassium 4.6 mmol/L (3.5-5.1); Sodium 132 mmol/L (137-145); Total Bilirubin 0.2 mg/dL (0.2-1.3); Total Protein 5.3 g/dL (6.3-8.2)
[2023-10-29 12:17] LABS: Glucose,Whole Blood 139 mg/dL (70-110)
[2023-10-29] MEDS: MAGNESIUM SULFATE-D5W PMX 1 GM in DEXTROSE/WATER 1 100ML.BAG IVPB SCH (13:00)
--- NOTE | 2023-10-29 13:14 | P.PN ---
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 He completed multiple days of IV antibiotics and discharged home on PO Augmentin and DEBORA drain. He presented to the emergency department on 10/09/2023 with a chief complaint of increased abdominal pain, abdominal distention and multiple episodes of bilious vomiting. Upon arrival in the emergency department, patient underwent full evaluation. Vital signs upon arrival showed BP 145/95, HR 101, RR 18, T 90 7.8F, 100% on RA. Labs were completed and revie wed CBC showed WBC count 18.5, hemoglobin 10.6, hematocrit 33.2, MCV 79, platelet 634. CMP showed sodium 134, bicarb 20, creatinine 0.48, glucose 167, albumin 2.9. Lipase 473. Lactic acid 1.4. CT abdomen and pelvis was completed revealing diffuse SB dilation with bowel containing gas, feces, and fluid suspicious for ileus versus small bowel obstruction, drainage catheter in place, and chronic pancreatitis changes. Patient reported having bowel movements despite abdominal distention and worsening pain. Patient was admitted to general surgery team and [facility] was consulted for medical management of this patient throughout hospitalization. DEBORA drain cultures positive for MRSA. Patient failed conservative management of small bowel obstruction and was taken for open laparotomy with lysis of adhesions and resection of small bowel tumor with wound VAC placement on 10/16/2023. Pathology sample was sent to lab for analysis and per pathology report, negative for histopathologic changes and negative for malignancy. Patient with postoperative ileus resulting in nausea and vomiting and reinsertion of NG tube on 10/26/2023. Physical exam: Patient seen and fully evaluated at bedside this morning. Patient reports f eeling down and discouraged that he has only been able to eat ice chips. NG tube remains in place. Patient remains on TPN and lipids. He reports continued abdominal pain/discomfort controlled with Dilaudid CHILDCARE WORKER and denies any episodes of nausea or vomiting. Patient reports passing only small amount of flatus and continues to report no further bowel movements. Vital signs reviewed and stable. General: Nontoxic, no acute distress and appears older than stated age. Thin and frail. Derm: Skin warm and dry, normal coloration for ethnicity. Head: Atraumatic, normocephalic and symmetric. Eyes: EOMs intact, no lid lag, and anicteric sclera Mouth: no lip lesions, mucus membranes moist Cardiovascular: regular rate and rhythm with normal S1S2, no murmur, positive posterior tibial pulses bilaterally, and cap refill < 2 seconds. Lungs: Respirations even, regular, and unlabored on room air. Lungs CTA bilaterally, no rhonchi, no rales, no wheezing, and no accessory muscle usage. Abdominal: Abdomen distended. Postsurgical incision midline with dressing clean, dry, and intact. Abdominal binder in place. NG tube in place. Ext: ROM intact. No gross muscle atrophy, no edema, no contractures. Neuro: Speech clear, face symmetrical and CN II-XII grossly intact with no noted focal neuro deficits Psych: Alert and oriented to person, place, time, and situation. Appropriate and pleasant affect. Assessment and Plan of Care: Sinus tachycardia -Cardiology following. Reviewed documentation in chart. Cardiology reporting anticipate improvement of sinus tachycardia with resolution of acute issues and clearing patient from cardiac standpoint at this time. -Bilateral lower extremity venous Dopplers were completed negative for DVTs. -Echocardiogram completed revealing a preserved EF of 60 to 65% with small pericardial effusion without tamponade physiology. -Patient to remain on telemetry monitoring. Recurrent postoperative ileus MRSA infection Recurrent small bowel obstruction requiring open laparotomy with lysis of adhesions and resection of small bowel tumor on 10/16/2023 Retroperitoneal mass History of GERD with erosive esophagitis History of gastritis Elevated lipase with history of chronic pancreatitis Severe protein calorie malnutrition with BMI of 16.9 kg/m -General surgery following, took patient for open laparotomy with lysis of adhesions and resection of small bowel tumor with wound VAC placement on 10/16/2023 -Symptomatic care and pain management. Zofran 4 mg IVP every 8 hours as needed for nausea and/or vomiting -General surgery managing patient on Dilaudid CHILDCARE WORKER for pain management. -NG tube in place to low intermittent suctioning. -Continue Reglan 10 mg IVP every 6 hours scheduled for persistent nausea and to increase bowel motility. -Continue Protonix 40 mg IVP daily -Dietitian following managing TPN and lipids. -DEBORA drain culture was positive for MRSA and group D enterococcus faecalis. -Infectious disease managing antibiotics recommending continuation of Unasyn 3g IV every 6 hours D# 22 and vancomycin 1000 mg every 16 hours D# 19. Continue to monitor vancomycin trough and renal function closely for signs of vancomycin associated renal toxicity. Will discontinue in 24 hours if patient remains afebrile. -Blood cultures showed no growth -Pathology sample was sent to lab for analysis and per pathology report, negative for histopathologic changes and negative for malignancy. Acute postoperative blood loss anemia on anemia of chronic disease. Hemoglobin stable 7.8. Will continue to monitor and transfuse if needed for hemoglobin less than 7. Iron profile resulting showing total iron of 17, TIBC of 171, iron percentage 9.94, transferrin of 122, and ferritin of 366. Patient completed the day course of IV Ferrlecit 125 mg daily and once tolerating oral intake should be started on ferrous sulfate 325 mg daily. Hypokalemia, resolved and pt is on TPN/Lipids Hypomagnesemia, resolved and pt is on TPN/Lipids Thrombocytosis. Platelet count again elevated 510. Likely reactive secondary to postoperative ileus. History of small bowel perforation status post emergent small bowel resection with [id number] duodenojejunostomy 09/06/2023 Data and imaging reviewed: Vital signs reviewed. Blood pressure 123/78, heart rate 95, respiratory rate 16, temp 98.0 F, and SpO2 of 100% on room air. Morning labs reviewed.. BMP revealing mild hyponatremia with sodium 132, normal potassium of 4.6, glucose 175 and renal function showing mild prerenal azotemia with BUN of 22, creatinine 0.61, and GFR greater than 90. Magnesium 1.7. Documented gastric output over the past 24 hours was 3400 cc. CODE STATUS: FULL CODE DVT Prophylaxis: Lovenox SQ GI Prophylaxis: Protonix Thank you for allowing us to participate in the care of this pleasant patient. Do not hesitate to contact us with questions. Someone can be reached from the [facility] hospitalist group all hours of the day at [phone] or via perfect serve. Patient was seen independently by Nurse Pracitioner. This document was prepared using [employer] dictation software. Please allow for errors in sweatband perforator, while rare they do occur. Edin Anoop, PEANUT SORTER rendered care for this patient independently, reviewed the findings and plan as documented in the note above. I did not physically speak with or examine the patient on this date Objective - Vital Signs Vital signs: Vital Signs Temp 97.4 F L 10/29/23 04:00 Pulse 99 10/29/23 04:00 Resp 16 10/29/23 04:00 BP 114/70 10/29/23 04:00 Pulse Ox 100 10/29/23 04:00 FiO2 Intake & Output 10/28/23 10/29/23 10/29/23 18:59 06:59 18:59 Intake Total 1464.917 Output Total 2695 2350 Balance -1230.083 -2350 Weight 46.3 kg Intake: Intake, IV Titration 1464.917 Amount Sodium Chloride 4Meq/ml 1464.917 Vial 80 meq Potassium Acetate 40 meq Magnesium Sulfate gm 1 gm Calcium Gluconate 1 gm Mvi, Adult No.4 with Vit K 10 ml Trace (Conc-1Ml/Dose) 1 ml In Amino Acids 5 %/ Dextrose 20 % 1,000 ml @ 70 mls/hr IV .[id number] [facility] Rx#:[id number] Output: Gastric Drainage 2000 1400 Urine 695 950 Other: Voiding Method Urinal Urinal - Labs CBC & Chem 7: 10/27/23 06:29 10/29/23 08:44 Labs: Abnormal Lab Results - Last 24 Hours (Table) 10/28/23 10/28/23 10/28/23 Range/Units 06:24 11:55 18:11 Sodium 131 L (137-145) mmol/L BUN 22 H (9-20) mg/dL Creatinine 0.65 L (0.66-1.25) mg/dL Glucose 125 H (74-99) mg/dL POC Glucose (mg/dL) 135 H 158 H (70-110) mg/dL Calcium 8.0 L (8.4-10.2) mg/dL 10/29/23 10/29/23 Range/Units 00:01 05:47 Sodium (137-145) mmol/L BUN (9-20) mg/dL Creatinine (0.66-1.25) mg/dL Glucose (74-99) mg/dL POC Glucose (mg/dL) 179 H 148 H (70-110) mg/dL Calcium (8.4-10.2) mg/dL
--- NOTE | 2023-10-29 13:40 | XR ---
EXAMINATION TYPE: XR abdomen 2V DATE OF EXAM: 10/29/2023 12:55 PM CLINICAL INDICATION:Male, 43 years old with history of abdominal pain; [facility] COMPARISON: 10/26/2023 TECHNIQUE: Two views of the abdomen were obtained. FINDINGS/IMPRESSION: 1. Postsurgical changes skin laurence present. Dilated small bowel loops which are gas-filled through out the abdomen. Findings favor ileus and postsurgical setting. Oral contrast extends to the cecum. 2. Nasogastric tube distal tip terminates in the gastric lumen. Side-port not well visualized. Consi oralia advancement of at least 9.6 cm for optimal placement. 3. Calcifications project over the pancreas compatible with chronic pancreatitis changes.
--- NOTE | 2023-10-29 14:53 | P.PN ---
Subjective Progress Note Date: 10/29/23 Principal diagnosis: Reason for follow-up is fever/ileus/obstruction Patient is a 43-year-old -[place] male past medical history significant for right-sided jaw cancer for the patient be treated with chemoradiation therapy, patient also have a history of alcohol abuse possible acute and chronic pancreatitis patient recently did have a prolonged hospital stay for bowel obstruction and this patient who did have a perforated small bowel and status post resection on 09/06/2023 did have prolonged ileus, now presenting back to the hospital abdominal pain and vomiting has been diagnosed with ileus/obstruction.Patient is status post open expiratory laparotomy with lysis o f adhesion excision of small bowel tumor x 3 closure of decompressive enterostomy and drainage of abdominal ascites completed on 10/16/2023. On today's evaluation that is 10/29/2023, patient has been afebrile, patient is breathing comfortably and is currently on room air, patient denies having any si gnificant cough no chest pain shortness of breath, patient did have the NG denies any further vomiting still complaining of abdominal pain and did not have any bowel movement. Patient creatinine 0.62 Vanco trough 14.5 Objective - Vital Signs Vital signs: Vital Signs Temp 98 F 10/29/23 08:00 Pulse 99 10/29/23 12:00 Resp 16 10/29/23 12:00 BP 121/71 10/29/23 12:00 Pulse Ox 100 10/29/23 04:00 FiO2 Intake & Output 10/28/23 10/29/23 10/29/23 18:59 06:59 18:59 Intake Total 1464.917 Output Total 1950 2350 Balance -1230.083 -2350 Weight 46.3 kg Intake: Intake, IV Titration 1464.917 Amount Sodium Chloride 4Meq/ml 1464.917 Vial 80 meq Potassium Acetate 40 meq Magnesium Sulfate gm 1 gm Calcium Gluconate 1 gm Mvi, Adult No.4 with Vit K 10 ml Trace (Conc-1Ml/Dose) 1 ml In Amino Acids 5 %/ Dextrose 20 % 1,000 ml @ 70 mls/hr IV .[id number] [facility] Rx#:[id number] Output: Gastric Drainage 1999 1400 Urine 695 950 Other: Voiding Method Urinal Urinal Urinal - Exam GENERAL DESCRIPTION: Middle-age male up in the chair in no distress RESPIRATORY SYSTEM: Unlabored breathing , decreased breath sounds at bases HEART: S1 S2 regular rate and rhythm , ABDOMEN: Soft , mild distention and tenderness EXTREMITIES: No edema feet - Labs CBC & Chem 7: 10/27/23 06:29 10/29/23 08:44 Labs: Abnormal Lab Results - Last 24 Hours (Table) 10/28/23 10/29/23 10/29/23 Range/Units 18:11 00:01 05:47 Sodium (137-145) mmol/L BUN (9-20) mg/dL Creatinine (0.66-1.25) mg/dL Glucose (74-99) mg/dL POC Glucose (mg/dL) 158 H 179 H 148 H (70-110) mg/dL Calcium (8.4-10.2) mg/dL Alkaline Phosphatase (38-126) U/L Total Protein (6.3-8.2) g/dL Albumin (3.5-5.0) g/dL 10/29/23 10/29/23 Range/Units 08:44 12:15 Sodium 132 L (137-145) mmol/L BUN 22 H (9-20) mg/dL Creatinine 0.62 L (0.66-1.25) mg/dL Glucose 175 H (74-99) mg/dL POC Glucose (mg/dL) 139 H (70-110) mg/dL Calcium 8.1 L (8.4-10.2) mg/dL Alkaline Phosphatase 167 H (38-126) U/L Total Protein 5.3 L (6.3-8.2) g/dL Albumin 2.3 L (3.5-5.0) g/dL Assessment and Plan (1) Leukocytosis Current Visit: Yes Status: Acute Code(s): D72.829 - ELEVATED WHITE BLOOD CELL COUNT, UNSPECIFIED SNOMED Code(s): 598351542 (2) Ileus Current Visit: Yes Status: Acute Code(s): K56.7 - ILEUS, UNSPECIFIED SNOMED Code(s): 082317032 (3) MRSA (methicillin resistant staph aureus) culture positive Current Visit: Yes Status: Acute Code(s): Z22.322 - CARRIER OR SUSPECTED CARRIER OF METHICILLIN RESIS STAPH SNOMED Code(s): 590162511 Plan: 1patient presented hospital with sepsis in this patient who did have an elevated white count tachycardia source likely abdominal pain this patient did have predominantly abdominal symptoms with abdominal pain and vomiting CT has been suggestive of ileus/obstruction and will likely need to cover for the enteric gram-negative both aerobes and anaerobes 2- cultures from the DEBORA grew MRSA as well as Enterococcus 3-patient is status post extensive abdominal surgery did not mention any perforation or abscess no cultures 4- patient prolonged ileus expected per surgical note and is being monitored closely by surgery, patient did have some worsening as he did have extensive vomiting requiring NG tube placement and transferred to the telemetry unit as of 10/26/2023 5-patient remains to be afebrile white count has been normal, patient to continue with Unasyn and vancomycin, Vanco trough has been therapeutic and creatinine has been normal Dictation was produced using [employer] dictation software. please excuse any grammatical, word or spelling errors. Time with Patient: Less than 30
--- NOTE | 2023-10-29 14:55 | P.PN ---
Subjective Progress Note Date: 10/29/23 CHIEF COMPLAINT: Recurrent small bowel obstruction HISTORY OF PRESENT ILLNESS: Patient is status post open exploratory laparotomy with lysis of adhesions, excision of small bowel tumor x 3 closure of decom pressive enterostomy, drainage of abdominal ascites and partial omentectomy on 10/16/23. Patient had SVT over the weekend. He is followed by cardiology. Patient reports he is feeling better today. He did have more flatus. NG tube output 450 mL this morning. Decreased output compared to yesterday. It is bilious in color. Patient's abdominal distention is decreasing. Afebrile Abdominal x-ray distal small bowel loops which are gas-filled throughout the abdomen. Findings favor ileus in postsurgical setting. Oral contrast extends to the cecum. PHYSICAL EXAM: VITAL SIGNS: Reviewed GENERAL: Well-developed in no acute distress. HEENT: No sclera icterus. Extraocular movements grossly intact. Moist buccal mucosa. Head is atraumatic, normocephalic. Hears conversational speech. No nasal drainage. NECK: Supple without lymphadenopathy. CHEST: Non-labored respirations and equal bilateral excursions. CARDIOVASCULAR: Palpable 2+ radial pulses. ABDOMEN: distended, dressing clean, dry and intact MUSCULOSKELETAL: No clubbing or cyanosis. NEUROLOGIC: No focal or lateralizing signs. Cranial nerves II through XII grossly intact. PSYCH: Appropriate affect. Alert and oriented to person, place and time. SKIN: Well perfused. Good skin turgor. ASSESSMENT: 1. Small bowel obstruction 2. History of perforated small bowel 3. Severe protein malnutrition 4. Chronic constipation 5. Dehydration 6. Prior history of tracheostomy and mandibular cancer 7. History of marijuana use. 8. Expected ileus 9. Hypomagnesia 10. Iron deficiency anemia 11. Underweight, BMI 16.5 12. Supraventricular tachycardia PLAN: -Discontinue NG tube -Start clear liquid diet -Continue TPN for nutrition support -Continue lactulose or bowel regimen -Continue Reglan -Encourage patient to increase activity level -Continue antibiotics -DVT prophylaxis Lovenox Physician Procurement Accountant note has been reviewed by physician. Signing provider agrees with the documented findings, assessment, and plan of care. Objective - Vital Signs Vital signs: Vital Signs Temp 98 F 10/29/23 08:00 Pulse 99 10/29/23 12:00 Resp 16 10/29/23 12:00 BP 121/71 10/29/23 12:00 Pulse Ox 100 10/29/23 04:00 FiO2 Intake & Output 10/28/23 10/29/23 10/29/23 18:59 06:59 18:59 Intake Total 1464.917 Output Total 2695 2350 Balance -1230.083 -2350 Weight 46.3 kg Intake: Intake, IV Titration 1464.917 Amount Sodium Chloride 4Meq/ml 1464.917 Vial 80 meq Potassium Acetate 40 meq Magnesium Sulfate gm 1 gm Calcium Gluconate 1 gm Mvi, Adult No.4 with Vit K 10 ml Trace (Conc-1Ml/Dose) 1 ml In Amino Acids 5 %/ Dextrose 20 % 1,000 ml @ 70 mls/hr IV .[id number] [facility] Rx#:[id number] Output: Gastric Drainage 1999 1400 Urine 695 950 Other: Voiding Method Urinal Urinal Urinal - Labs CBC & Chem 7: 10/27/23 06:29 10/29/23 08:44 Labs: Abnormal Lab Results - Last 24 Hours (Table) 10/28/23 10/29/23 10/29/23 Range/Units 18:11 00:01 05:47 Sodium (137-145) mmol/L BUN (9-20) mg/dL Creatinine (0.66-1.25) mg/dL Glucose (74-99) mg/dL POC Glucose (mg/dL) 158 H 179 H 148 H (70-110) mg/dL Calcium (8.4-10.2) mg/dL Alkaline Phosphatase (38-126) U/L Total Protein (6.3-8.2) g/dL Albumin (3.5-5.0) g/dL 10/29/23 10/29/23 Range/Units 08:44 12:15 Sodium 132 L (137-145) mmol/L BUN 22 H (9-20) mg/dL Creatinine 0.62 L (0.66-1.25) mg/dL Glucose 175 H (74-99) mg/dL POC Glucose (mg/dL) 139 H (70-110) mg/dL Calcium 8.1 L (8.4-10.2) mg/dL Alkaline Phosphatase 167 H (38-126) U/L Total Protein 5.3 L (6.3-8.2) g/dL Albumin 2.3 L (3.5-5.0) g/dL
[2023-10-29 17:48] LABS: Glucose,Whole Blood 119 mg/dL (70-110)
[2023-10-29 19:49] LABS: Glucose,Whole Blood 100 mg/dL (70-110)
[2023-10-29] MEDS: MAGNESIUM SULFATE-D5W PMX 1 GM in DEXTROSE/WATER 1 100ML.BAG IVPB ONE (23:00)
[2023-10-30 02:25] LABS: Glucose,Whole Blood 161 mg/dL (70-110)
[2023-10-30 04:50] LABS: African American GFR (CKD) >90 (>60 ml/min/1.73 sqM); Anion Gap 8 mmol/L; Blood Urea Nitrogen 20 mg/dL (9-20); Calcium 8.2 mg/dL (8.4-10.2); Carbon Dioxide 21 mmol/L (22-30); Chloride 102 mmol/L (98-107); Glucose 140 mg/dL (74-99); Magnesium 2.2 mg/dL (1.6-2.3); Non-African American GFR(CKD) >90 (>60 ml/min/1.73 sqM); Phosphorus 3.3 mg/dL (2.5-4.5); Potassium 4.5 mmol/L (3.5-5.1); Sodium 131 mmol/L (137-145)
[2023-10-30] MEDS: VANCOMYCIN TROUGH DUE 1 EACH MISC MISCELLANE ONE (05:11)
[2023-10-30] MEDS: PANTOPRAZOLE 40 MG TABLET PO SCH (05:39)
[2023-10-30 06:25] LABS: Glucose,Whole Blood 148 mg/dL (70-110)
[2023-10-30 09:03] LABS: HCT 24.3 % (39.6-50.0); HGB 7.4 g/dL (13.0-17.0); MCH 23.5 pg (27.0-32.0); MCHC 30.5 g/dL (32.0-37.0); MCV 77.1 FL (80.0-97.0); Mean Platelet Volume 8.8 FL (9.5-12.2); NRBC Per 100 WBC 0 X 10*3/uL (0.00-0.01); Platelet Count 430 X 10*3/uL (140-440); RBC 3.15 X 10*6/uL (4.40-5.60); RDW 18.3 % (11.5-14.5); WBC 6.33 X 10*3/uL (4.50-10.00)
[2023-10-30 12:10] LABS: Glucose,Whole Blood 133 mg/dL (70-110)
--- NOTE | 2023-10-30 13:51 | P.PN ---
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 He completed multiple days of IV antibiotics and discharged home on PO Augmentin and DEBORA drain. He presented to the emergency department on 10/09/2023 with a chief complaint of increased abdominal pain, abdominal distention and multiple episodes of bilious vomiting. Upon arrival in the emergency department, patient underwent full evaluation. Vital signs upon arrival showed BP 145/95, HR 101, RR 18, T 90 7.8F, 100% on RA. Labs were completed and revie wed CBC showed WBC count 18.5, hemoglobin 10.6, hematocrit 33.2, MCV 79, platelet 634. CMP showed sodium 134, bicarb 20, creatinine 0.48, glucose 167, albumin 2.9. Lipase 473. Lactic acid 1.4. CT abdomen and pelvis was completed revealing diffuse SB dilation with bowel containing gas, feces, and fluid suspicious for ileus versus small bowel obstruction, drainage catheter in place, and chronic pancreatitis changes. Patient reported having bowel movements despite abdominal distention and worsening pain. Patient was admitted to general surgery team and [facility] was consulted for medical management of this patient throughout hospitalization. DEBORA drain cultures positive for MRSA. Patient failed conservative management of small bowel obstruction and was taken for open laparotomy with lysis of adhesions and resection of small bowel tumor with wound VAC placement on 10/16/2023. Pathology sample was sent to lab for analysis and per pathology report, negative for histopathologic changes and negative for malignancy. Patient with postoperative ileus resulting in nausea and vomiting and reinsertion of NG tube on 10/26/2023 and again removal of NG tube on 10/29/2023. Physical exam: Patient seen and fully evaluated at bedside this morning. NG tube was removed and patient tolerating clear liquid diet. He reports no flatus in almost 24 hours, denies nausea or vomiting, and denies any further bowel movements. Jaida ent remains on Dilaudid NECK SKEWER. Encourage patient to ambulate. Vital signs reviewed and stable. General: Nontoxic, no acute distress and appears older than stated age. Thin and frail. Derm: Skin warm and dry, normal coloration for ethnicity. Head: Atraumatic, normocephalic and symmetric. Eyes: EOMs intact, no lid lag, and anicteric sclera Mouth: no lip lesions, mucus membranes moist Cardiovascular: regular rate and rhythm with normal S1S2, no murmur, positive posterior tibial pulses bilaterally, and cap refill < 2 seconds. Lungs: Respirations even, regular, and unlabored on room air. Lungs CTA bilaterally, no rhonchi, no rales, no wheezing, and no accessory muscle usage. Abdominal: Abdomen distended. Postsurgical incision midline with dressing clean, dry, and intact. Abdominal binder in place. NG tube in place. Ext: ROM intact. No gross muscle atrophy, no edema, no contractures. Neuro: Speech clear, face symmetrical and CN II-XII grossly intact with no noted focal neuro deficits Psych: Alert and oriented to person, place, time, and situation. Appropriate and pleasant affect. Assessment and Plan of Care: Sinus tachycardia -Cardiology following. Reviewed documentation in chart. Cardiology reporting anticipate improvement of sinus tachycardia with resolution of acute issues and clearing patient from cardiac standpoint at this time. -Bilateral lower extremity venous Dopplers were completed negative for DVTs. -Echocardiogram completed revealing a preserved EF of 60 to 65% with small pericardial effusion without tamponade physiology. -Patient to remain on telemetry monitoring. Recurrent postoperative ileus MRSA infection Recurrent small bowel obstruction requiring open laparotomy with lysis of adhesions and resection of small bowel tumor on 10/16/2023 Retroperitoneal mass History of GERD with erosive esophagitis History of gastritis Elevated lipase with history of chronic pancreatitis Severe protein calorie malnutrition with BMI of 16.9 kg/m -General surgery following, took patient for open laparotomy with lysis of adhesions and resection of small bowel tumor with wound VAC placement on 10/16/2023 -Symptomatic care and pain management. Zofran 4 mg IVP every 8 hours as needed for nausea and/or vomiting -General surgery managing patient on Dilaudid NECK SKEWER for pain management. -NG tube was removed and patient tolerating clear liquid diet. -Continue Reglan 10 mg IVP every 6 hours scheduled for persistent nausea and to increase bowel motility. -Continue Protonix 40 mg IVP daily -Dietitian following managing TPN and lipids. -DEBORA drain site culture was positive for MRSA and group D enterococcus faecalis. -Infectious disease managing antibiotics recommending continuation of Unasyn 3g IV every 6 hours D# 23 and discontinued vancomycin at this time. -Blood cultures showed no growth -Pathology sample was sent to lab for analysis and per pathology report, negative for histopathologic changes and negative for malignancy. Acute postoperative blood loss anemia on anemia of chronic disease. Hemoglobin stable 7.8. Will continue to monitor and transfuse if needed for hemoglobin less than 7. Iron profile resulting showing total iron of 17, TIBC of 171, iron percentage 9.94, transferrin of 122, and ferritin of 366. Patient completed the day course of IV Ferrlecit 125 mg daily and once tolerating oral intake should be started on ferrous sulfate 325 mg daily. Hypokalemia, resolved and pt is on TPN/Lipids Hypomagnesemia, resolved and pt is on TPN/Lipids Thrombocytosis. Platelet count again elevated 510. Likely reactive secondary to postoperative ileus. History of small bowel perforation status post emergent small bowel resection with [id number] duodenojejunostomy 09/06/2023 Data and imaging reviewed: Vital signs reviewed. Blood pressure 143/94, heart rate 101, respiratory rate 16, temp 97.9 F, and SpO2 of 94% on room air. Morning labs reviewed.. CBC showing persistent but stable microcytic anemia with hemoglobin of 7.4. BMP showing hyponatremia with sodium of 131 and hypocarbia with bicarb of 21 otherwise normal findings. Magnesium 2.2. Vancomycin trough therapeutic at 21.3. CODE STATUS: FULL CODE DVT Prophylaxis: Lovenox SQ GI Prophylaxis: Protonix Thank you for allowing us to participate in the care of this pleasant patient. Do not hesitate to contact us with questions. Someone can be reached from the [facility] hospitalist group all hours of the day at [phone] or via perfect serve. Patient was seen independently by Nurse Pracitioner. This document was prepared using [employer] dictation software. Please allow for errors in automotive general sales manager, while rare they do occur. I reviewed the documentation as provided by the CATRINA above, who is the original author of this note. I agree with the documented assessment and plan, with the following changes: none Objective - Vital Signs Vital signs: Vital Signs Temp 97.9 F 10/30/23 07:56 Pulse 101 H 10/30/23 07:56 Resp 16 10/30/23 07:56 BP 143/94 10/30/23 07:56 Pulse Ox 94 L 10/30/23 07:56 FiO2 Intake & Output 10/29/23 10/30/23 10/30/23 18:59 06:59 18:59 Intake Total 760 1317.167 Output Total 1225 900 Balance -465 417.167 Intake: Intake, IV Titration 760 1317.167 Amount Magnesium Sulfate-D5w Pmx 100 1 gm In Dextrose/Water 1 100ml.bag @ 100 mls/hr IVPB ONCE ONE Rx#: [id number] Magnesium Sulfate-D5w Pmx 200 0 1 gm In Dextrose/Water 1 100ml.bag @ 100 mls/hr IVPB Q1H [facility] Rx#: [id number] Sodium Chloride 4Meq/ml 560 967.167 Vial 92 meq Potassium Acetate 30 meq Magnesium Sulfate gm 2 gm Calcium Gluconate 1 gm Mvi, Adult No.4 with Vit K 10 ml Trace (Conc-1Ml/Dose) 1 ml Potassium Phosphate 6 mmol In Amino Acids 5 %/ Dextrose 20 % 1,000 ml @ 70 mls/hr IV .[id number] [facility] Rx#:[id number] Vancomycin 1,000 mg In 250 Sodium Chloride 0.9% 250 ml @ 125 mls/hr IVPB Q16H [facility] Rx#:[id number] Output: Urine 725 400 Stool 500 500 Other: Voiding Method Urinal Urinal - Labs CBC & Chem 7: 10/30/23 04:12 10/30/23 04:12 Labs: Abnormal Lab Results - Last 24 Hours (Table) 10/29/23 10/29/23 10/29/23 Range/Units 08:44 12:15 17:47 RBC (4.40-5.60) X 10*6/uL Hgb (13.0-17.0) g/dL Hct (39.6-50.0) % MCV (80.0-97.0) FL MCH (27.0-32.0) pg MCHC (32.0-37.0) g/dL RDW (11.5-14.5) % MPV (9.5-12.2) FL Sodium 132 L (137-145) mmol/L Carbon Dioxide (22-30) mmol/L BUN 22 H (9-20) mg/dL Creatinine 0.62 L (0.66-1.25) mg/dL Glucose 175 H (74-99) mg/dL POC Glucose (mg/dL) 139 H 119 H (70-110) mg/dL Calcium 8.1 L (8.4-10.2) mg/dL Alkaline Phosphatase 167 H (38-126) U/L Total Protein 5.3 L (6.3-8.2) g/dL Albumin 2.3 L (3.5-5.0) g/dL 10/30/23 10/30/23 10/30/23 Range/Units 02:24 04:12 04:12 RBC 3.15 L (4.40-5.60) X 10*6/uL Hgb 7.4 L (13.0-17.0) g/dL Hct 24.3 L (39.6-50.0) % MCV 77.1 L (80.0-97.0) FL MCH 23.5 L (27.0-32.0) pg MCHC 30.5 L (32.0-37.0) g/dL RDW 18.3 H (11.5-14.5) % MPV 8.8 L (9.5-12.2) FL Sodium 131 L (137-145) mmol/L Carbon Dioxide 21 L (22-30) mmol/L BUN (9-20) mg/dL Creatinine 0.58 L (0.66-1.25) mg/dL Glucose 140 H (74-99) mg/dL POC Glucose (mg/dL) 161 H (70-110) mg/dL Calcium 8.2 L (8.4-10.2) mg/dL Alkaline Phosphatase (38-126) U/L Total Protein (6.3-8.2) g/dL Albumin (3.5-5.0) g/dL 10/30/23 Range/Units 06:22 RBC (4.40-5.60) X 10*6/uL Hgb (13.0-17.0) g/dL Hct (39.6-50.0) % MCV (80.0-97.0) FL MCH (27.0-32.0) pg MCHC (32.0-37.0) g/dL RDW (11.5-14.5) % MPV (9.5-12.2) FL Sodium (137-145) mmol/L Carbon Dioxide (22-30) mmol/L BUN (9-20) mg/dL Creatinine (0.66-1.25) mg/dL Glucose (74-99) mg/dL POC Glucose (mg/dL) 148 H (70-110) mg/dL Calcium (8.4-10.2) mg/dL Alkaline Phosphatase (38-126) U/L Total Protein (6.3-8.2) g/dL Albumin (3.5-5.0) g/dL
--- NOTE | 2023-10-30 14:14 | P.PN ---
Subjective Progress Note Date: 10/30/23 CHIEF COMPLAINT: Recurrent small bowel obstruction HISTORY OF PRESENT ILLNESS: Patient is status post open exploratory laparotomy with lysis of adhesions, excision of small bowel tumor x 3 closure of decom pressive enterostomy, drainage of abdominal ascites and partial omentectomy on 10/16/23. Patient had SVT over the weekend. Patient seen by cardiology. They have signed off. Patient transferred to a regular medical floor. Patient is tolerating the clear liquids. He is having flatus. No bowel movement. He still feels bloated. NG tube was removed yesterday. WBC 6.3 Hgb 7.4 platelets 430 sodium is 131 potassium 4.5 creatinine 0.58. Patient is still using the EMPLOYEE'S REPRESENTATIVE pump for pain control PHYSICAL EXAM: VITAL SIGNS: Reviewed GENERAL: Well-developed in no acute distress. HEENT: No sclera icterus. Extraocular movements grossly intact. Moist buccal mucosa. Head is atraumatic, normocephalic. Hears conversational speech. No nasal drainage. NECK: Supple without lymphadenopathy. CHEST: Non-labored respirations and equal bilateral excursions. CARDIOVASCULAR: Palpable 2+ radial pulses. ABDOMEN: distended, dressing clean, dry and intact MUSCULOSKELETAL: No clubbing or cyanosis. NEUROLOGIC: No focal or lateralizing signs. Cranial nerves II through XII grossly intact. PSYCH: Appropriate affect. Alert and oriented to person, place and time. SKIN: Well perfused. Good skin turgor. ASSESSMENT: 1. Small bowel obstruction 2. History of perforated small bowel 3. Severe protein malnutrition 4. Chronic constipation 5. Dehydration 6. Prior history of tracheostomy and mandibular cancer 7. History of marijuana use. 8. Expected ileus 9. Hypomagnesia 10. Iron deficiency anemia 11. Underweight, BMI 16.5 12. Supraventricular tachycardia PLAN: -Continue clear liquid diet -Continue TPN for nutrition support -Continue pain management. Add Tylenol oral scheduled -Encourage patient ambulate -Continue lactulose or bowel regimen -Continue Reglan -Continue antibiotics -DVT prophylaxis Lovenox Physician [employer] note has been reviewed by physician. Signing provider agrees with the documented findings, assessment, and plan of care. CHIEF COMPLAINT: Bowel obstruction HISTORY OF PRESENT ILLNESS: The patient is a 43-year-old male status post exploratory laparotomy for bowel resection, 10/16/2023. He has no further features of supraventricular tachycardia. Additional diagnostic studies demonstrating moderate improvement of ileus. ROS: No fevers or chills. No new chest pain. No productive sputum PHYSICAL EXAM: VITAL SIGNS: Reviewed CONSTITUTIONAL: Well developed and in no acute distress. EYES: Conjuctivae without sclera icterus. Extraocular movements grossly intact. HEAD, EARS, NOSE, THROAT: Moist buccal mucosa. Head is atraumatic, normocephal ic. Hears conversational speech. RESPIRATORY: Non-labored respirations and equal bilateral excursions. CARDIOVASCULAR: Palpable 2+ radial pulses. ABDOMEN: No peritonitis. Dressing intact. MUSCULOSKELETAL: No gross deformity of the lower extremities noted. No clubbing. No cyanosis. SKIN: Good skin turgor. Well perfused. NEUROLOGIC: Cranial nerves II through XII grossly intact. No focal or lateralizing signs. PSYCH: Appropriate affect. Alert and oriented to person, place and time. CLINICAL LABS: Reviewed. Hemoglobin 7.4-7.8, anemia XRAY: Abdominal x-ray demonstrates moderate improvement of bowel distention more consistent with ileus. This is my independent or potation. ASSESSMENT: 1. Small bowel obstruction 2. History of perforated small bowel 3. Severe protein malnutrition 4. Chronic constipation 5. Dehydration 6. Prior history of tracheostomy and mandibular cancer 7. History of marijuana use. 8. Expected ileus 9. Hypomagnesia 10. Iron deficiency anemia 11. Underweight, BMI 16.5 12. Supraventricular tachycardia PLAN: 1. Further discussion with patient review of medical reconciliation demonstrates over 10-day exposure of narcotics including Dilaudid EMPLOYEE'S REPRESENTATIVE. Dilaudid EMPLOYEE'S REPRESENTATIVE discontinued. 2. Nonnarcotic pain management including Tylenol Toradol adjusted. 3. Trial of low fiber diet described. Objective - Vital Signs Vital signs: Vital Signs Temp 97.9 F 10/30/23 07:56 Pulse 101 H 10/30/23 07:56 Resp 16 10/30/23 09:33 BP 143/94 10/30/23 07:56 Pulse Ox 94 L 10/30/23 07:56 FiO2 Intake & Output 10/29/23 10/30/23 10/30/23 18:59 06:59 18:59 Intake Total 760 9226.230 4353.5 Output Total 1225 900 Balance -465 387.871 0857.5 Weight 48.79 kg Intake: Intake, IV Titration 760 8193.140 9520.5 Amount Magnesium Sulfate-D5w Pmx 100 1 gm In Dextrose/Water 1 100ml.bag @ 100 mls/hr IVPB ONCE ONE Rx#: [id number] Magnesium Sulfate-D5w Pmx 200 0 1 gm In Dextrose/Water 1 100ml.bag @ 100 mls/hr IVPB Q1H [facility] Rx#: [id number] Sodium Chloride 4Meq/ml 560 588.729 6486.5 Vial 92 meq Potassium Acetate 30 meq Magnesium Sulfate gm 2 gm Calcium Gluconate 1 gm Mvi, Adult No.4 with Vit K 10 ml Trace (Conc-1Ml/Dose) 1 ml Potassium Phosphate 6 mmol In Amino Acids 5 %/ Dextrose 20 % 1,000 ml @ 70 mls/hr IV .[id number] [facility] Rx#:[id number] Vancomycin 1,000 mg In 250 Sodium Chloride 0.9% 250 ml @ 125 mls/hr IVPB Q16H [facility] Rx#:[id number] Output: Urine 725 400 Stool 500 500 Other: Voiding Method Urinal Urinal Urinal - Labs CBC & Chem 7: 10/30/23 04:12 10/30/23 04:12 Labs: Abnormal Lab Results - Last 24 Hours (Table) 10/29/23 10/30/23 10/30/23 Range/Units 17:47 02:24 04:12 RBC (4.40-5.60) X 10*6/uL Hgb (13.0-17.0) g/dL Hct (39.6-50.0) % MCV (80.0-97.0) FL MCH (27.0-32.0) pg MCHC (32.0-37.0) g/dL RDW (11.5-14.5) % MPV (9.5-12.2) FL Sodium 131 L (137-145) mmol/L Carbon Dioxide 21 L (22-30) mmol/L Creatinine 0.58 L (0.66-1.25) mg/dL Glucose 140 H (74-99) mg/dL POC Glucose (mg/dL) 119 H 161 H (70-110) mg/dL Calcium 8.2 L (8.4-10.2) mg/dL 10/30/23 10/30/23 10/30/23 Range/Units 04:12 06:22 12:08 RBC 3.15 L (4.40-5.60) X 10*6/uL Hgb 7.4 L (13.0-17.0) g/dL Hct 24.3 L (39.6-50.0) % MCV 77.1 L (80.0-97.0) FL MCH 23.5 L (27.0-32.0) pg MCHC 30.5 L (32.0-37.0) g/dL RDW 18.3 H (11.5-14.5) % MPV 8.8 L (9.5-12.2) FL Sodium (137-145) mmol/L Carbon Dioxide (22-30) mmol/L Creatinine (0.66-1.25) mg/dL Glucose (74-99) mg/dL POC Glucose (mg/dL) 148 H 133 H (70-110) mg/dL Calcium (8.4-10.2) mg/dL
[2023-10-30] MEDS: SODIUM CHLORIDE IV SCH (15:26)
[2023-10-30] MEDS: POTASSIUM ACETATE IV SCH (15:26)
[2023-10-30] MEDS: [UNRECOGNIZED DRUG - OTHER] IV SCH (15:26)
[2023-10-30] MEDS: KETOROLAC 15 MG/ML 1 ML VIAL IVP SCH (15:37)
--- NOTE | 2023-10-30 15:44 | P.PN ---
Subjective Progress Note Date: 10/30/23 Principal diagnosis: Reason for follow-up is fever/ileus/obstruction Patient is a 43-year-old -[place] male past medical history significant for right-sided jaw cancer for the patient be treated with chemoradiation therapy, patient also have a history of alcohol abuse possible acute and chronic pancreatitis patient recently did have a prolonged hospital stay for bowel obstruction and this patient who did have a perforated small bowel and status post resection on 09/06/2023 did have prolonged ileus, now presenting back to the hospital abdominal pain and vomiting has been diagnosed with ileus/obstruction.Patient is status post open expiratory laparotomy with lysis o f adhesion excision of small bowel tumor x 3 closure of decompressive enterostomy and drainage of abdominal ascites completed on 10/16/2023. On today's evaluation that is 10/30/2023,the patient denies any fever or any chills, patient is breathing comfortably on room air, the patient denies chest pain shortness of breath and no significant cough, patient NG tube has been discontinued denies any vomiting still complaining of abdominal pain about the same and no bowel movement. Patient white count is 6.33, creatinine 0.58 Vanco trough is 21.3 Objective - Vital Signs Vital signs: Vital Signs Temp 97.9 F 10/30/23 07:56 Pulse 101 H 10/30/23 07:56 Resp 16 10/30/23 09:33 BP 143/94 10/30/23 07:56 Pulse Ox 94 L 10/30/23 07:56 FiO2 Intake & Output 10/29/23 10/30/23 10/30/23 18:59 06:59 18:59 Intake Total 760 7194.333 2011.5 Output Total 1225 900 750 Balance -465 417.167 303.5 Weight 48.79 kg Intake: Intake, IV Titration 760 9357.930 8232.5 Amount Magnesium Sulfate-D5w Pmx 100 1 gm In Dextrose/Water 1 100ml.bag @ 100 mls/hr IVPB ONCE ONE Rx#: [id number] Magnesium Sulfate-D5w Pmx 200 0 1 gm In Dextrose/Water 1 100ml.bag @ 100 mls/hr IVPB Q1H [facility] Rx#: [id number] Sodium Chloride 4Meq/ml 560 397.503 3144.5 Vial 92 meq Potassium Acetate 30 meq Magnesium Sulfate gm 2 gm Calcium Gluconate 1 gm Mvi, Adult No.4 with Vit K 10 ml Trace (Conc-1Ml/Dose) 1 ml Potassium Phosphate 6 mmol In Amino Acids 5 %/ Dextrose 20 % 1,000 ml @ 70 mls/hr IV .[id number] [facility] Rx#:[id number] Vancomycin 1,000 mg In 250 Sodium Chloride 0.9% 250 ml @ 125 mls/hr IVPB Q16H [facility] Rx#:[id number] Output: Urine 725 400 750 Stool 500 500 Other: Voiding Method Urinal Urinal Urinal # Voids 1 - Exam GENERAL DESCRIPTION: Middle-age male up in the chair in no distress RESPIRATORY SYSTEM: Unlabored breathing , decreased breath sounds at bases HEART: S1 S2 regular rate and rhythm , ABDOMEN: Soft , mild distention and tenderness EXTREMITIES: No edema feet - Labs CBC & Chem 7: 10/30/23 04:12 10/30/23 04:12 Labs: Abnormal Lab Results - Last 24 Hours (Table) 10/29/23 10/30/23 10/30/23 Range/Units 17:47 02:24 04:12 RBC (4.40-5.60) X 10*6/uL Hgb (13.0-17.0) g/dL Hct (39.6-50.0) % MCV (80.0-97.0) FL MCH (27.0-32.0) pg MCHC (32.0-37.0) g/dL RDW (11.5-14.5) % MPV (9.5-12.2) FL Sodium 131 L (137-145) mmol/L Carbon Dioxide 21 L (22-30) mmol/L Creatinine 0.58 L (0.66-1.25) mg/dL Glucose 140 H (74-99) mg/dL POC Glucose (mg/dL) 119 H 161 H (70-110) mg/dL Calcium 8.2 L (8.4-10.2) mg/dL 10/30/23 10/30/23 10/30/23 Range/Units 04:12 06:22 12:08 RBC 3.15 L (4.40-5.60) X 10*6/uL Hgb 7.4 L (13.0-17.0) g/dL Hct 24.3 L (39.6-50.0) % MCV 77.1 L (80.0-97.0) FL MCH 23.5 L (27.0-32.0) pg MCHC 30.5 L (32.0-37.0) g/dL RDW 18.3 H (11.5-14.5) % MPV 8.8 L (9.5-12.2) FL Sodium (137-145) mmol/L Carbon Dioxide (22-30) mmol/L Creatinine (0.66-1.25) mg/dL Glucose (74-99) mg/dL POC Glucose (mg/dL) 148 H 133 H (70-110) mg/dL Calcium (8.4-10.2) mg/dL Assessment and Plan (1) Leukocytosis Current Visit: Yes Status: Acute Code(s): D72.829 - ELEVATED WHITE BLOOD CELL COUNT, UNSPECIFIED SNOMED Code(s): 613924960 (2) Ileus Current Visit: Yes Status: Acute Code(s): K56.7 - ILEUS, UNSPECIFIED SNOMED Code(s): 466953824 (3) MRSA (methicillin resistant staph aureus) culture positive Current Visit: Yes Status: Acute Code(s): Z22.322 - CARRIER OR SUSPECTED CARRIER OF METHICILLIN RESIS STAPH SNOMED Code(s): 380532412 Plan: 1patient presented hospital with sepsis in this patient who did have an elevated white count tachycardia source likely abdominal pain this patient did have predominantly abdominal symptoms with abdominal pain and vomiting CT has been suggestive of ileus/obstruction and will likely need to cover for the enteric gram-negative both aerobes and anaerobes 2- cultures from the grew MRSA as well as Enterococcus 3-patient is status post extensive abdominal surgery did not mention any perforation or abscess no cultures 4- patient prolonged ileus expected per surgical note and is being monitored closely by surgery, patient did have some worsening as he did have extensive vomiting requiring NG tube placement and transferred to the telemetry unit as of 10/26/2023 5-patient remains to be afebrile white count has been normal, patient to continue with Unasyn however discontinue vancomycin discussed with the FOUNTAIN ATTENDANT for admitting team Dictation was produced using [employer] dictation software. please excuse any grammatical, word or spelling errors. Time with Patient: Less than 30
[2023-10-30 18:06] LABS: Glucose,Whole Blood 190 mg/dL (70-110)
[2023-10-30] MEDS: ACETAMINOPHEN TAB 500 MG TAB PO SCH (18:28)
[2023-10-30] MEDS ORDERED: VANCOMYCIN 1,000 MG in SODIUM CHLORIDE 0.9% 250 ML IVPB SCH (22:00)
[2023-10-31] MEDS: ACETAMINOPHEN TAB 325 MG TAB PO SCH (00:25)
[2023-10-31 06:13] LABS: Glucose,Whole Blood 182 mg/dL (70-110)
[2023-10-31 06:34] LABS: African American GFR (CKD) >90 (>60 ml/min/1.73 sqM); Anion Gap 7 mmol/L; Blood Urea Nitrogen 18 mg/dL (9-20); Calcium 7.9 mg/dL (8.4-10.2); Carbon Dioxide 21 mmol/L (22-30); Chloride 104 mmol/L (98-107); Glucose 163 mg/dL (74-99); Magnesium 1.8 mg/dL (1.6-2.3); Non-African American GFR(CKD) >90 (>60 ml/min/1.73 sqM); Phosphorus 2.9 mg/dL (2.5-4.5); Potassium 4.1 mmol/L (3.5-5.1); Sodium 132 mmol/L (137-145)
--- NOTE | 2023-10-31 08:42 | XR ---
EXAMINATION TYPE: XR abdomen 2V DATE OF EXAM: 10/31/2023 7:40 AM CLINICAL INDICATION:Male, 43 years old with history of VOMITING/PAIN.POST SURGERY; [facility] COMPARISON: 10/29/2023. TECHNIQUE: Two views of the abdomen were obtained. FINDINGS: Oral contrast extending to the rectum. Multiple air-fluid levels present. Decrease in gaseo us dilation of bowel from prior. Skin laurence projecting over midline. IMPRESSION: Findings most compatible with ileus. Contrast extends to the rectum.
--- NOTE | 2023-10-31 09:31 | P.PN ---
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 He completed multiple days of IV antibiotics and discharged home on PO Augmentin and DEBORA drain. He presented to the emergency department on 10/09/2023 with a chief complaint of increased abdominal pain, abdominal distention and multiple episodes of bilious vomiting. Upon arrival in the emergency department, patient underwent full evaluation. Vital signs upon arrival showed BP 145/95, HR 101, RR 18, T 90 7.8F, 100% on RA. Labs were completed and revie wed CBC showed WBC count 18.5, hemoglobin 10.6, hematocrit 33.2, MCV 79, platelet 634. CMP showed sodium 134, bicarb 20, creatinine 0.48, glucose 167, albumin 2.9. Lipase 473. Lactic acid 1.4. CT abdomen and pelvis was completed revealing diffuse SB dilation with bowel containing gas, feces, and fluid suspicious for ileus versus small bowel obstruction, drainage catheter in place, and chronic pancreatitis changes. Patient reported having bowel movements despite abdominal distention and worsening pain. Patient was admitted to general surgery team and [facility] was consulted for medical management of this patient throughout hospitalization. DEBORA drain cultures positive for MRSA. Patient failed conservative management of small bowel obstruction and was taken for open laparotomy with lysis of adhesions and resection of small bowel tumor with wound VAC placement on 10/16/2023. Pathology sample was sent to lab for analysis and per pathology report, negative for histopathologic changes and negative for malignancy. Patient with postoperative ileus resulting in nausea and vomiting and reinsertion of NG tube on 10/26/2023 and again removal of NG tube on 10/29/2023. Physical exam: Patient seen and fully evaluated at bedside this morning. Yesterday evening patient had another episode of large-volume emesis after reported 1400 cc. General surgery was notified and ordered for reinsertion of NG tube, however patient refused. Nursing staff has been keeping him n.p.o. Patient also had a reported 2 episodes of bowel incontinence. Repeat morning x-ray was completed reported to be compatible with ileus. Patient upset this morning, expressing frustration over decrease again in diet and expresses frustration on not getting better. He reports persistent abdominal pain, Dilaudid CIVIL ENGINEERING DIRECTOR was discontinued yesterday and patient was started on Toradol and Tylenol for pain management. Patient reports this is not controlling pain and expressing significant frustration at this time. Notified general surgery team. Vital signs reviewed and stable. General: Nontoxic, no acute distress and appears older than stated age. Thin and frail. Derm: Skin warm and dry, normal coloration for ethnicity. Head: Atraumatic, normocephalic and symmetric. Eyes: EOMs intact, no lid lag, and anicteric sclera Mouth: no lip lesions, mucus membranes moist Cardiovascular: regular rate and rhythm with normal S1S2, no murmur, positive posterior tibial pulses bilaterally, and cap refill < 2 seconds. Lungs: Respirations even, regular, and unlabored on room air. Lungs CTA bilaterally, no rhonchi, no rales, no wheezing, and no accessory muscle usage. Abdominal: Abdomen distended. Postsurgical incision midline with dressing clean, dry, and intact. Abdominal binder in place. NG tube in place. Ext: ROM intact. No gross muscle atrophy, no edema, no contractures. Neuro: Speech clear, face symmetrical and CN II-XII grossly intact with no noted focal neuro deficits Psych: Alert and oriented to person, place, time, and situation. Appropriate and pleasant affect. Assessment and Plan of Care: Recurrent postoperative ileus MRSA infection Recurrent small bowel obstruction requiring open laparotomy with lysis of adhesions and resection of small bowel tumor on 10/16/2023 Retroperitoneal mass History of GERD with erosive esophagitis History of gastritis Elevated lipase with history of chronic pancreatitis Severe protein calorie malnutrition with BMI of 16.9 kg/m -General surgery following, took patient for open laparotomy with lysis of adhesions and resection of small bowel tumor with wound VAC placement on 10/16/2023 -Symptomatic care and pain management. Zofran 4 mg IVP every 8 hours as needed for nausea and/or vomiting -General surgery discontinued Dilaudid CIVIL ENGINEERING DIRECTOR and started patient on Toradol and Tylenol for pain management. -Patient again having episodes of large-volume emesis and 2 reported episodes of bowel incontinence. -Continue Reglan 10 mg IVP every 6 hours scheduled for persistent nausea and to increase bowel motility. -Continue Protonix 40 mg IVP daily -Dietitian following managing TPN and lipids. -DEBORA drain site culture was positive for MRSA and group D enterococcus faecalis. -Infectious disease following, discussed plan of care. Patient completed extended antibiotic course with Unasyn and vancomycin. -Blood cultures showed no growth -Pathology sample was sent to lab for analysis and per pathology report, negative for histopathologic changes and negative for malignancy. Sinus tachycardia -Cardiology following. Reviewed documentation in chart. Cardiology reporting anticipate improvement of sinus tachycardia with resolution of acute issues and clearing patient from cardiac standpoint at this time. -Bilateral lower extremity venous Dopplers were completed negative for DVTs. -Echocardiogram completed revealing a preserved EF of 60 to 65% with small pericardial effusion without tamponade physiology. -Patient to remain on telemetry monitoring. Acute postoperative blood loss anemia on anemia of chronic disease. Hemoglobin stable 7.4. Will continue to monitor and transfuse if needed for hemoglobin less than 7. Iron profile resulting showing total iron of 17, TIBC of 171, iron percentage 9.94, transferrin of 122, and ferritin of 366. Patient completed the day course of IV Ferrlecit 125 mg daily and once tolerating oral intake should be started on ferrous sulfate 325 mg daily. Hypokalemia, resolved and pt is on TPN/Lipids Hypomagnesemia, resolved and pt is on TPN/Lipids Thrombocytosis. Resolved. Platelet count 430. Likely was reactive secondary to postoperative ileus. History of small bowel perforation status post emergent small bowel resection with [id number] duodenojejunostomy 09/06/2023 Data and imaging reviewed: Vital signs reviewed. Blood pressure 136/103, heart rate 95, respiratory rate 18, temp 97.7 F, and SpO2 of 100% on room air. Morning labs reviewed.. BMP showing hyponatremia with sodium of 132 and hypocarbia with bicarb of 21. Magnesium 1.8. Repeat morning x-ray completed, radiology report reviewed reporting compatible with ileus. Discussed plan of care with general surgery, patient to remain NPO at this time and we will continue to avoid further administration of narcotic medications secondary to prolonged postoperative ileus. CODE STATUS: FULL CODE DVT Prophylaxis: Lovenox SQ GI Prophylaxis: Protonix Thank you for allowing us to participate in the care of this pleasant patient. Do not hesitate to contact us with questions. Someone can be reached from the [facility] hospitalist group all hours of the day at [phone] or via perfect serve. Patient was seen independently by Nurse Pracitioner. This document was prepared using payever dictation software. Please allow for errors in generator man, while rare they do occur. Objective - Vital Signs Vital signs: Vital Signs Temp 97.7 F 10/31/23 07:56 Pulse 95 10/31/23 07:56 Resp 18 10/31/23 07:56 BP 136/103 10/31/23 07:56 Pulse Ox 100 10/31/23 07:56 FiO2 Intake & Output 10/30/23 10/31/23 10/31/23 18:59 06:59 18:59 Intake Total 1053.5 2695.333 Output Total 2225 2300 Balance -1171.5 395.333 Weight 48.79 kg Intake: Intake, IV Titration 1053.5 2695.333 Amount Ampicillin-Sulbactam 3 gm 200 In Sodium Chloride 0.9% 100 ml @ 200 mls/hr IVPB Q6H [facility] Rx#:[id number] Fat Emulsion 20% 250 ml 0 In Empty Bag 1 bag @ 21 mls/hr IV TuSa@0900 [facility] Rx#:[id number] Sodium Chloride 0.9% 1, 550 000 ml @ 50 mls/hr IV . Q20H [facility] Rx#:[id number] Sodium Chloride 4Meq/ml 1945.333 Vial 100 meq Potassium Acetate 30 meq Magnesium Sulfate gm 2 gm Calcium Gluconate 1 gm Mvi, Adult No.4 with Vit K 10 ml Trace (Conc-1Ml/Dose) 1 ml Potassium Phosphate 6 mmol In Amino Acids 5 %/ Dextrose 20 % 1,000 ml @ 70 mls/hr IV .[id number] [facility] Rx#:[id number] Sodium Chloride 4Meq/ml 1053.5 Vial 92 meq Potassium Acetate 30 meq Magnesium Sulfate gm 2 gm Calcium Gluconate 1 gm Mvi, Adult No.4 with Vit K 10 ml Trace (Conc-1Ml/Dose) 1 ml Potassium Phosphate 6 mmol In Amino Acids 5 %/ Dextrose 20 % 1,000 ml @ 70 mls/hr IV .[id number] [facility] Rx#:[id number] Vancomycin 1,000 mg In 0 Sodium Chloride 0.9% 250 ml @ 125 mls/hr IVPB Q16H [facility] Rx#:[id number] Output: Urine 750 1800 Stool 500 Emesis 1475 Other: Voiding Method Urinal Urinal # Voids 1 # Bowel Movements 2 - Labs CBC & Chem 7: 10/30/23 04:12 10/31/23 05:48 Labs: Abnormal Lab Results - Last 24 Hours (Table) 10/30/23 10/30/23 10/31/23 Range/Units 12:08 18:04 05:48 Sodium 132 L (137-145) mmol/L Carbon Dioxide 21 L (22-30) mmol/L Creatinine 0.62 L (0.66-1.25) mg/dL Glucose 163 H (74-99) mg/dL POC Glucose (mg/dL) 133 H 190 H (70-110) mg/dL Calcium 7.9 L (8.4-10.2) mg/dL 10/31/23 Range/Units 06:11 Sodium (137-145) mmol/L Carbon Dioxide (22-30) mmol/L Creatinine (0.66-1.25) mg/dL Glucose (74-99) mg/dL POC Glucose (mg/dL) 182 H (70-110) mg/dL Calcium (8.4-10.2) mg/dL
[2023-10-31 11:23] LABS: Glucose,Whole Blood 174 mg/dL (70-110)
--- NOTE | 2023-10-31 14:47 | P.PN ---
Subjective Progress Note Date: 10/31/23 CHIEF COMPLAINT: Recurrent small bowel obstruction HISTORY OF PRESENT ILLNESS: Patient is status post open exploratory laparotomy with lysis of adhesions, excision of small bowel tumor x 3 closure of decom pressive enterostomy, drainage of abdominal ascites and partial omentectomy on 10/16/23. Patient had SVT over the weekend. Patient seen by cardiology. They have signed off. Patient transferred to a regular medical floor. Patient has started a low fiber diet yesterday. Then had an episode of vomiting. He had 1400 mL emesis. He has had stool incontinence. Patient was then made n.p.o. last night after the emesis. NG tube was ordered. Patient refused NG tube. Abdominal x-ray ordered reported compatible findings of ileus. Contrast extends to the rectum. Afebrile. Patient reports he is feeling much better today. He reports that he feels like eating. Abdomen is softer. It is no longer distended. He denies any abdominal pain. Heart rate 108. Afebrile. PHYSICAL EXAM: VITAL SIGNS: Reviewed GENERAL: Well-developed in no acute distress. HEENT: No sclera icterus. Extraocular movements grossly intact. Moist buccal mucosa. Head is atraumatic, normocephalic. Hears conversational speech. No nasal drainage. NECK: Supple without lymphadenopathy. CHEST: Non-labored respirations and equal bilateral excursions. CARDIOVASCULAR: Palpable 2+ radial pulses. ABDOMEN: Soft. Nondistended dressing clean, dry and intact MUSCULOSKELETAL: No clubbing or cyanosis. NEUROLOGIC: No focal or lateralizing signs. Cranial nerves II through XII grossly intact. PSYCH: Appropriate affect. Alert and oriented to person, place and time. SKIN: Well perfused. Good skin turgor. ASSESSMENT: 1. Small bowel obstruction 2. History of perforated small bowel 3. Severe protein malnutrition 4. Chronic constipation 5. Dehydration 6. Prior history of tracheostomy and mandibular cancer 7. History of marijuana use. 8. Expected ileus 9. Hypomagnesia 10. Iron deficiency anemia 11. Underweight, BMI 16.5 12. Supraventricular tachycardia 13. MRSA DEBORA drain fluid PLAN: -Advance diet to low fiber -Encourage patient ambulate -Continue TPN for now until oral intake improves -INVESTMENT TRADER discontinued yesterday -Continue lactulose or bowel regimen -Continue Reglan -Continue antibiotics per ID -DVT prophylaxis Heparin Physician Supervisor Smoke Control note has been reviewed by physician. Signing provider agrees with the documented findings, assessment, and plan of care. Please see additional documentation CHIEF COMPLAINT: Bowel obstruction HISTORY OF PRESENT ILLNESS: The patient is a 43-year-old male status post exploratory laparotomy for bowel resection, 10/16/2023. He had another emesis t his evening undigested food. He does not want NG tube. He reports inadequate pain control. He reports bowel movements today. He reports being hungry but had vomited undigested food. ROS: No fevers or chills. No new chest pain. No productive sputum PHYSICAL EXAM: VITAL SIGNS: Reviewed CONSTITUTIONAL: Well developed and in no acute distress. EYES: Conjuctivae without sclera icterus. Extraocular movements grossly intact. HEAD, EARS, NOSE, THROAT: Moist buccal mucosa. Head is atraumatic, n ormocephalic. Hears conversational speech. RESPIRATORY: Non-labored respirations and equal bilateral excursions. CARDIOVASCULAR: Palpable 2+ radial pulses. ABDOMEN: No peritonitis. Dressing intact. MUSCULOSKELETAL: No gross deformity of the lower extremities noted. No clubbing. No cyanosis. SKIN: Good skin turgor. Well perfused. NEUROLOGIC: Cranial nerves II through XII grossly intact. No focal or lateralizing signs. PSYCH: Appropriate affect. Alert and oriented to person, place and time. CLINICAL LABS: Reviewed. Sodium low 132, hyponatremia. XRAY: Abdominal x-ray demonstrates air fluid levels. This is my independent interpretation. ASSESSMENT: 1. Small bowel obstruction 2. History of perforated small bowel 3. Severe protein malnutrition 4. Chronic constipation 5. Dehydration 6. Prior history of tracheostomy and mandibular cancer 7. History of marijuana use. 8. Expected ileus 9. Hypomagnesia 10. Iron deficiency anemia 11. Underweight, BMI 16.5 12. Supraventricular tachycardia PLAN: 1. Adjust pain meds. Will add oral Norcos but has risk for worsening ileus. 2. May restart ice chips and popsiscles. 3. Recommend abdominal xray in the morning. Objective - Vital Signs Vital signs: Vital Signs Temp 97.7 F 10/31/23 14:00 Pulse 108 H 10/31/23 14:00 Resp 18 10/31/23 14:00 BP 132/89 10/31/23 14:00 Pulse Ox 99 10/31/23 14:00 FiO2 Intake & Output 10/30/23 10/31/23 10/31/23 18:59 06:59 18:59 Intake Total 1053.5 2695.333 Output Total 2225 2300 Balance -1171.5 395.333 Weight 48.79 kg 48.79 kg Intake: Intake, IV Titration 1053.5 2695.333 Amount Ampicillin-Sulbactam 3 gm 200 In Sodium Chloride 0.9% 100 ml @ 200 mls/hr IVPB Q6H [facility] Rx#:[id number] Fat Emulsion 20% 250 ml 0 In Empty Bag 1 bag @ 21 mls/hr IV TuSa@0900 [facility] Rx#:[id number] Sodium Chloride 0.9% 1, 550 000 ml @ 50 mls/hr IV . Q20H [facility] Rx#:[id number] Sodium Chloride 4Meq/ml 1945.333 Vial 100 meq Potassium Acetate 30 meq Magnesium Sulfate gm 2 gm Calcium Gluconate 1 gm Mvi, Adult No.4 with Vit K 10 ml Trace (Conc-1Ml/Dose) 1 ml Potassium Phosphate 6 mmol In Amino Acids 5 %/ Dextrose 20 % 1,000 ml @ 70 mls/hr IV .[id number] [facility] Rx#:[id number] Sodium Chloride 4Meq/ml 1053.5 Vial 92 meq Potassium Acetate 30 meq Magnesium Sulfate gm 2 gm Calcium Gluconate 1 gm Mvi, Adult No.4 with Vit K 10 ml Trace (Conc-1Ml/Dose) 1 ml Potassium Phosphate 6 mmol In Amino Acids 5 %/ Dextrose 20 % 1,000 ml @ 70 mls/hr IV .[id number] [facility] Rx#:[id number] Vancomycin 1,000 mg In 0 Sodium Chloride 0.9% 250 ml @ 125 mls/hr IVPB Q16H [facility] Rx#:[id number] Output: Urine 750 1800 Stool 500 Emesis 1475 Other: Voiding Method Urinal Urinal Urinal # Voids 1 # Bowel Movements 2 - Labs CBC & Chem 7: 11/01/23 07:47 10/31/23 05:48 Labs: Abnormal Lab Results - Last 24 Hours (Table) 10/30/23 10/31/23 10/31/23 Range/Units 18:04 05:48 06:11 Sodium 132 L (137-145) mmol/L Carbon Dioxide 21 L (22-30) mmol/L Creatinine 0.62 L (0.66-1.25) mg/dL Glucose 163 H (74-99) mg/dL POC Glucose (mg/dL) 190 H 182 H (70-110) mg/dL Calcium 7.9 L (8.4-10.2) mg/dL 10/31/23 Range/Units 11:21 Sodium (137-145) mmol/L Carbon Dioxide (22-30) mmol/L Creatinine (0.66-1.25) mg/dL Glucose (74-99) mg/dL POC Glucose (mg/dL) 174 H (70-110) mg/dL Calcium (8.4-10.2) mg/dL
--- NOTE | 2023-10-31 15:43 | P.PN ---
Subjective Progress Note Date: 10/31/23 Principal diagnosis: Reason for follow-up is fever/ileus/obstruction Patient is a 43-year-old -[place] male past medical history significant for right-sided jaw cancer for the patient be treated with chemoradiation therapy, patient also have a history of alcohol abuse possible acute and chronic pancreatitis patient recently did have a prolonged hospital stay for bowel obstruction and this patient who did have a perforated small bowel and status post resection on 09/06/2023 did have prolonged ileus, now presenting back to the hospital abdominal pain and vomiting has been diagnosed with ileus/obstruction.Patient is status post open expiratory laparotomy with lysis o f adhesion excision of small bowel tumor x 3 closure of decompressive enterostomy and drainage of abdominal ascites completed on 10/16/2023. On today's evaluation that is 10/31/2023,the patient remains to be afebrile, patient is on room air not requiring supplemental oxygen and denies any shortness of breath no chest pain or cough.Patient denies having any nausea or vomiting, did have improvement abdominal pain and mention he did have small bowel movement. Patient had creatinine 0.62 Objective - Vital Signs Vital signs: Vital Signs Temp 97.7 F 10/31/23 14:00 Pulse 108 H 10/31/23 14:00 Resp 18 10/31/23 14:00 BP 132/89 10/31/23 14:00 Pulse Ox 99 10/31/23 14:00 FiO2 Intake & Output 10/30/23 10/31/23 10/31/23 18:59 06:59 18:59 Intake Total 1053.5 2695.333 Output Total 2225 2300 Balance -1171.5 395.333 Weight 48.79 kg 48.79 kg Intake: Intake, IV Titration 1053.5 2695.333 Amount Ampicillin-Sulbactam 3 gm 200 In Sodium Chloride 0.9% 100 ml @ 200 mls/hr IVPB Q6H [facility] Rx#:[id number] Fat Emulsion 20% 250 ml 0 In Empty Bag 1 bag @ 21 mls/hr IV TuSa@0900 [facility] Rx#:[id number] Sodium Chloride 0.9% 1, 550 000 ml @ 50 mls/hr IV . Q20H [facility] Rx#:[id number] Sodium Chloride 4Meq/ml 1945.333 Vial 100 meq Potassium Acetate 30 meq Magnesium Sulfate gm 2 gm Calcium Gluconate 1 gm Mvi, Adult No.4 with Vit K 10 ml Trace (Conc-1Ml/Dose) 1 ml Potassium Phosphate 6 mmol In Amino Acids 5 %/ Dextrose 20 % 1,000 ml @ 70 mls/hr IV .[id number] [facility] Rx#:[id number] Sodium Chloride 4Meq/ml 1053.5 Vial 92 meq Potassium Acetate 30 meq Magnesium Sulfate gm 2 gm Calcium Gluconate 1 gm Mvi, Adult No.4 with Vit K 10 ml Trace (Conc-1Ml/Dose) 1 ml Potassium Phosphate 6 mmol In Amino Acids 5 %/ Dextrose 20 % 1,000 ml @ 70 mls/hr IV .[id number] [facility] Rx#:[id number] Vancomycin 1,000 mg In 0 Sodium Chloride 0.9% 250 ml @ 125 mls/hr IVPB Q16H [facility] Rx#:[id number] Output: Urine 750 1800 Stool 500 Emesis 1475 Other: Voiding Method Urinal Urinal Urinal # Voids 1 # Bowel Movements 2 - Exam GENERAL DESCRIPTION: Middle-age male up in the chair in no distress RESPIRATORY SYSTEM: Unlabored breathing , decreased breath sounds at bases HEART: S1 S2 regular rate and rhythm , ABDOMEN: Soft , mild distention and tenderness EXTREMITIES: No edema feet - Labs CBC & Chem 7: 10/30/23 04:12 10/31/23 05:48 Labs: Abnormal Lab Results - Last 24 Hours (Table) 10/30/23 10/31/23 10/31/23 Range/Units 18:04 05:48 06:11 Sodium 132 L (137-145) mmol/L Carbon Dioxide 21 L (22-30) mmol/L Creatinine 0.62 L (0.66-1.25) mg/dL Glucose 163 H (74-99) mg/dL POC Glucose (mg/dL) 190 H 182 H (70-110) mg/dL Calcium 7.9 L (8.4-10.2) mg/dL 10/31/23 Range/Units 11:21 Sodium (137-145) mmol/L Carbon Dioxide (22-30) mmol/L Creatinine (0.66-1.25) mg/dL Glucose (74-99) mg/dL POC Glucose (mg/dL) 174 H (70-110) mg/dL Calcium (8.4-10.2) mg/dL Assessment and Plan (1) Leukocytosis Current Visit: Yes Status: Acute Code(s): D72.829 - ELEVATED WHITE BLOOD CELL COUNT, UNSPECIFIED SNOMED Code(s): 496105374 (2) Ileus Current Visit: Yes Status: Acute Code(s): K56.7 - ILEUS, UNSPECIFIED SNOMED Code(s): 238817968 (3) MRSA (methicillin resistant staph aureus) culture positive Current Visit: Yes Status: Acute Code(s): Z22.322 - CARRIER OR SUSPECTED CARRIER OF METHICILLIN RESIS STAPH SNOMED Code(s): 003902127 Plan: 1patient presented hospital with sepsis in this patient who did have an elevated white count tachycardia source likely abdominal pain this patient did have predominantly abdominal symptoms with abdominal pain and vomiting CT has been suggestive of ileus/obstruction and will likely need to cover for the enteric gram-negative both aerobes and anaerobes 2- cultures from the DEB[facility]A grew MRSA as well as Enterococcus 3-patient is status post extensive abdominal surgery did not mention any perforation or abscess no cultures 4- patient prolonged ileus expected per surgical note and is being monitored closely by surgery, patient did have some worsening as he did have extensive vomiting requiring NG tube placement and transferred to the telemetry unit as of 10/26/2023 5-patient remains to be afebrile white count has been normal, patient has received adequate antibiotic for underlying Infection and Unasyn can be safely discontinued Dictation was produced using [employer] dictation software. please excuse any grammatical, word or spelling errors. Time with Patient: Less than 30
[2023-10-31 16:18] LABS: Glucose,Whole Blood 250 mg/dL (70-110)
[2023-10-31] MEDS ORDERED: DEXTROSE 50% SYRINGE 50 ML IVP PRN ×2 (16:56)
[2023-10-31] MEDS: FAT EMULSION 20% 250 ML in EMPTY BAG 1 BAG IV SCH (17:03)
[2023-10-31] MEDS: INSULIN ASPART (NovoLOG) 100 UNIT/ML VIAL SQ SCH (17:04)
[2023-10-31 20:51] LABS: Glucose,Whole Blood 114 mg/dL (70-110)
[2023-10-31] MEDS: 1: MVI, ADULT NO.4 WITH VIT K 10 ML, TRACE (CONC-1ML/DOSE) 1 ML, SODIUM CHLORIDE 4MEQ/ML IV SCH (21:50)
[2023-11-01 01:29] LABS: Glucose,Whole Blood 171 mg/dL (70-110)
[2023-11-01 05:13] LABS: Glucose,Whole Blood 157 mg/dL (70-110)
[2023-11-01 08:18] LABS: Anisocytosis Slight; HCT 26.3 % (39.0-53.0); HGB 7.8 gm/dL (13.0-17.5); Hypochromasia Marked; MCH 23.7 pg (25.0-35.0); MCHC 29.7 g/dL (31.0-37.0); MCV 79.5 fL (80.0-100.0); Mean Platelet Volume 7.9; Microcytosis Slight; Platelet Count 448 k/uL (150-450); RBC 3.31 m/uL (4.30-5.90); RDW 17.4 % (11.5-15.5); WBC 5.6 k/uL (3.8-10.6)
[2023-11-01 09:06] LABS: ALT 12 U/L (4-49); AST 20 U/L (17-59); African American GFR (CKD) >90 (>60 ml/min/1.73 sqM); Albumin 2.3 g/dL (3.5-5.0); Albumin/Globulin Ratio 0.8; Alkaline Phosphatase 164 U/L (38-126); Anion Gap 9 mmol/L; Blood Urea Nitrogen 16 mg/dL (9-20); Carbon Dioxide 17 mmol/L (22-30); Chloride 108 mmol/L (98-107); Glucose 125 mg/dL (74-99); Non-African American GFR(CKD) >90 (>60 ml/min/1.73 sqM); Potassium 3.8 mmol/L (3.5-5.1); Sodium 134 mmol/L (137-145); Total Bilirubin 0.1 mg/dL (0.2-1.3); Total Protein 5.3 g/dL (6.3-8.2)
[2023-11-01 09:07] LABS: Magnesium 1.7 mg/dL (1.6-2.3); Phosphorus 2.3 mg/dL (2.5-4.5)
[2023-11-01] MEDS: oxyCODONE-APAP 5-325MG 1 EACH TAB PO PRN (11:11)
[2023-11-01] MEDS: MAGNESIUM SULFATE-D5W PMX 1 GM in DEXTROSE/WATER 1 100ML.BAG IVPB ONE (11:23)
[2023-11-01 12:16] LABS: Glucose,Whole Blood 176 mg/dL (70-110)
[2023-11-01] MEDS: POTASSIUM PHOSPHATE 10 MMOL in SODIUM CHLORIDE 0.9% 100 ML IV ONE (12:31)
[2023-11-01] MEDS: 1: MVI, ADULT NO.4 WITH VIT K 10 ML, TRACE (CONC-1ML/DOSE) 1 ML, SODIUM CHLORIDE 4MEQ/ML IV SCH (13:19)
--- NOTE | 2023-11-01 14:18 | P.PN ---
Subjective Progress Note Date: 11/01/23 Principal diagnosis: Reason for follow-up is fever/ileus/obstruction Patient is a 43-year-old -[place] male past medical history significant for right-sided jaw cancer for the patient be treated with chemoradiation therapy, patient also have a history of alcohol abuse possible acute and chronic pancreatitis patient recently did have a prolonged hospital stay for bowel obstruction and this patient who did have a perforated small bowel and status post resection on 09/06/2023 did have prolonged ileus, now presenting back to the hospital abdominal pain and vomiting has been diagnosed with ileus/obstruction.Patient is status post open expiratory laparotomy with lysis o f adhesion excision of small bowel tumor x 3 closure of decompressive enterostomy and drainage of abdominal ascites completed on 10/16/2023. On today's evaluation that is 11/01/2023, the patient continues to be afebrile, the patient is on room air and breathing comfortably, the Pt denies having any c hest pain or cough, the patient abdominal pain has slightly decreased intensity patient denies having any nausea vomiting has been complaining of multiple loose stools since yesterday. Patient white count is 5.6 creatinine 0.57 Objective - Vital Signs Vital signs: Vital Signs Temp 98.5 F 11/01/23 08:00 Pulse 112 H 11/01/23 08:00 Resp 16 11/01/23 08:00 BP 144/83 11/01/23 08:00 Pulse Ox 100 11/01/23 08:00 FiO2 Intake & Output 10/31/23 11/01/23 11/01/23 18:59 06:59 18:59 Output Total 901 150 Balance -901 -150 Weight 48.79 kg Output: Urine 150 Stool 1 Emesis 900 Other: Voiding Method Urinal Urinal Urinal # Bowel Movements 2 - Exam GENERAL DESCRIPTION: Middle-age male up in the chair in no distress RESPIRATORY SYSTEM: Unlabored breathing , decreased breath sounds at bases HEART: S1 S2 regular rate and rhythm , ABDOMEN: Soft , mild distention and tenderness EXTREMITIES: No edema feet - Labs CBC & Chem 7: 11/01/23 07:47 11/01/23 07:47 Labs: Abnormal Lab Results - Last 24 Hours (Table) 10/31/23 10/31/23 11/01/23 Range/Units 16:16 20:50 01:28 RBC (4.30-5.90) m/uL Hgb (13.0-17.5) gm/dL Hct (39.0-53.0) % MCV (80.0-100.0) fL MCH (25.0-35.0) pg MCHC (31.0-37.0) g/dL RDW (11.5-15.5) % Sodium (137-145) mmol/L Chloride (98-107) mmol/L Carbon Dioxide (22-30) mmol/L Creatinine (0.66-1.25) mg/dL Glucose (74-99) mg/dL POC Glucose (mg/dL) 250 H 114 H 171 H (70-110) mg/dL Calcium (8.4-10.2) mg/dL Phosphorus (2.5-4.5) mg/dL Total Bilirubin (0.2-1.3) mg/dL Alkaline Phosphatase (38-126) U/L Total Protein (6.3-8.2) g/dL Albumin (3.5-5.0) g/dL 11/01/23 11/01/23 11/01/23 Range/Units 05:12 07:47 07:47 RBC 3.31 L (4.30-5.90) m/uL Hgb 7.8 L (13.0-17.5) gm/dL Hct 26.3 L (39.0-53.0) % MCV 79.5 L (80.0-100.0) fL MCH 23.7 L (25.0-35.0) pg MCHC 29.7 L (31.0-37.0) g/dL RDW 17.4 H (11.5-15.5) % Sodium (137-145) mmol/L Chloride (98-107) mmol/L Carbon Dioxide (22-30) mmol/L Creatinine (0.66-1.25) mg/dL Glucose (74-99) mg/dL POC Glucose (mg/dL) 157 H (70-110) mg/dL Calcium (8.4-10.2) mg/dL Phosphorus 2.3 L (2.5-4.5) mg/dL Total Bilirubin (0.2-1.3) mg/dL Alkaline Phosphatase (38-126) U/L Total Protein (6.3-8.2) g/dL Albumin (3.5-5.0) g/dL 11/01/23 11/01/23 Range/Units 07:47 12:14 RBC (4.30-5.90) m/uL Hgb (13.0-17.5) gm/dL Hct (39.0-53.0) % MCV (80.0-100.0) fL MCH (25.0-35.0) pg MCHC (31.0-37.0) g/dL RDW (11.5-15.5) % Sodium 134 L (137-145) mmol/L Chloride 108 H (98-107) mmol/L Carbon Dioxide 17 L (22-30) mmol/L Creatinine 0.57 L (0.66-1.25) mg/dL Glucose 125 H (74-99) mg/dL POC Glucose (mg/dL) 176 H (70-110) mg/dL Calcium 8.0 L (8.4-10.2) mg/dL Phosphorus (2.5-4.5) mg/dL Total Bilirubin 0.1 L (0.2-1.3) mg/dL Alkaline Phosphatase 164 H (38-126) U/L Total Protein 5.3 L (6.3-8.2) g/dL Albumin 2.3 L (3.5-5.0) g/dL Assessment and Plan (1) Leukocytosis Current Visit: Yes Status: Acute Code(s): D72.829 - ELEVATED WHITE BLOOD CELL COUNT, UNSPECIFIED SNOMED Code(s): 200391669 (2) Ileus Current Visit: Yes Status: Acute Code(s): K56.7 - ILEUS, UNSPECIFIED SNOMED Code(s): 040154682 (3) MRSA (methicillin resistant staph aureus) culture positive Current Visit: Yes Status: Acute Code(s): Z22.322 - CARRIER OR SUSPECTED CARRIER OF METHICILLIN RESIS STAPH SNOMED Code(s): 190209196 Plan: 1patient presented hospital with sepsis in this patient who did have an elevated white count tachycardia source likely abdominal pain this patient did have predominantly abdominal symptoms with abdominal pain and vomiting CT has been suggestive of ileus/obstruction and will likely need to cover for the enteric gram-negative both aerobes and anaerobes 2- cultures from the DEBORA grew MRSA as well as Enterococcus 3-patient is status post extensive abdominal surgery did not mention any perforation or abscess no cultures 4- patient seem to have resolution of his ileus as he is having multiple bowel movements diarrhea antibiotic may be contributing to some of his diarrhea and the patient received adequate antibiotic for underlying Infection we will discontinue Unasyn And monitor closely off antibiotic therapy Dictation was produced using [employer] dictation software. please excuse any grammatical, word or spelling errors. Time with Patient: Less than 30
--- NOTE | 2023-11-01 14:38 | P.PN ---
Subjective Progress Note Date: 11/01/23 Hospital course: Patient is a 43-year-old male with a past medical history of chronic pancreatitis, alcoholism, history of a pulmonary emboli, right-sided jaw cancer status post chemo/radiation treatment, GERD with erosive esophagitis, gastritis, and recent hospitalization from 09/04/2023 through 09/18/2023 for small bowel obstruction status post perforation resulting in emergent small bowel resection with [id number] duodenojejunostomy 09/06/2023 complicated by post operative ileus. He completed multiple days of IV antibiotics and discharged home on PO Augmentin and DEBORA drain. He presented to the emergency department on 10/09/2023 with a chief complaint of increased abdominal pain, abdominal distention and multiple episodes of bilious vomiting. Upon arrival in the emergency department, patient underwent full evaluation. Vital signs upon arrival showed BP 145/95, HR 101, RR 18, T 90 7.8F, 100% on RA. Labs were completed and revie wed CBC showed WBC count 18.5, hemoglobin 10.6, hematocrit 33.2, MCV 79, platelet 634. CMP showed sodium 134, bicarb 20, creatinine 0.48, glucose 167, albumin 2.9. Lipase 473. Lactic acid 1.4. CT abdomen and pelvis was completed revealing diffuse SB dilation with bowel containing gas, feces, and fluid suspicious for ileus versus small bowel obstruction, drainage catheter in place, and chronic pancreatitis changes. Patient reported having bowel movements despite abdominal distention and worsening pain. Patient was admitted to general surgery team and [facility] was consulted for medical management of this patient throughout hospitalization. DEBORA drain cultures positive for MRSA. Patient failed conservative management of small bowel obstruction and was taken for open laparotomy with lysis of adhesions and resection of small bowel tumor with wound VAC placement on 10/16/2023. Pathology sample was sent to lab for analysis and per pathology report, negative for histopathologic changes and negative for malignancy. Patient with postoperative ileus resulting in nausea and vomiting and reinsertion of NG tube on 10/26/2023 and again removal of NG tube on 10/29/2023. Physical exam: Patient seen and fully evaluated at bedside this morning. Patient upset over return of n.p.o. status and requesting oral intake. Patient reports an additional 5 episodes of bowel incontinence overnight and into this morning. He denies any nausea or vomiting. Reports continued abdominal pain. Abdomen is soft. Abdominal binder in place. Vital signs reviewed and stable. General: Nontoxic, no acute distress and appears older than stated age. Thin and frail. Derm: Skin warm and dry, normal coloration for ethnicity. Head: Atraumatic, normocephalic and symmetric. Eyes: EOMs intact, no lid lag, and anicteric sclera Mouth: no lip lesions, mucus membranes moist Cardiovascular: regular rate and rhythm with normal S1S2, no murmur, positive posterior tibial pulses bilaterally, and cap refill < 2 seconds. Lungs: Respirations even, regular, and unlabored on room air. Lungs CTA bilaterally, no rhonchi, no rales, no wheezing, and no accessory muscle usage. Abdominal: Abdomen distended. Postsurgical incision midline with dressing clean, dry, and intact. Abdominal binder in place. NG tube in place. Ext: ROM intact. No gross muscle atrophy, no edema, no contractures. Neuro: Speech clear, face symmetrical and CN II-XII grossly intact with no noted focal neuro deficits Psych: Alert and oriented to person, place, time, and situation. Appropriate and pleasant affect. Assessment and Plan of Care: Recurrent postoperative ileus MRSA infection Recurrent small bowel obstruction requiring open laparotomy with lysis of adhesions and resection of small bowel tumor on 10/16/2023 Retroperitoneal mass History of GERD with erosive esophagitis History of gastritis Elevated lipase with history of chronic pancreatitis Severe protein calorie malnutrition with BMI of 16.9 kg/m -General surgery following, took patient for open laparotomy with lysis of adhesions and resection of small bowel tumor with wound VAC placement on 10/16/2023 -Symptomatic care and pain management. Zofran 4 mg IVP every 8 hours as needed for nausea and/or vomiting -General surgery discontinued Dilaudid HAMMER DRIVER and started patient on Toradol and Tylenol for pain management. -Patient again having episodes of large-volume emesis and 2 reported episodes of bowel incontinence. -Continue Reglan 10 mg IVP every 6 hours scheduled for persistent nausea and to increase bowel motility. -Continue Protonix 40 mg IVP daily -Dietitian following managing TPN and lipids. -DEBORA drain site culture was positive for MRSA and group D enterococcus faecalis. -Infectious disease following, discussed plan of care. Patient completed extended antibiotic course with Unasyn and vancomycin. -Blood cultures showed no growth -Pathology sample was sent to lab for analysis and per pathology report, negativ e for histopathologic changes and negative for malignancy. Sinus tachycardia -Cardiology evaluated. Cardiology reporting anticipate improvement of sinus tachycardia with resolution of acute issues and clearing patient from cardiac standpoint at this time stating continued treatment of underlying cause. -Bilateral lower extremity venous Dopplers were completed negative for DVTs. -Echocardiogram completed revealing a preserved EF of 60 to 65% with small p ericardial effusion without tamponade physiology. -Patient to remain on telemetry monitoring. Acute postoperative blood loss anemia on anemia of chronic disease. Hemoglobin stable 7.4. Will continue to monitor and transfuse if needed for hemoglobin less than 7. Iron profile resulting showing total iron of 17, TIBC of 171, iron percentage 9.94, transferrin of 122, and ferritin of 366. Patient completed the day course of IV Ferrlecit 125 mg daily and once tolerating oral intake should be started on ferrous sulfate 325 mg daily. Hypokalemia, resolved and pt is on TPN/Lipids Hypomagnesemia, resolved and pt is on TPN/Lipids Thrombocytosis. Resolved. Platelet count 430. Likely was reactive secondary to postoperative ileus. History of small bowel perforation status post emergent small bowel resection with [id number]-cu-[id number] duodenojejunostomy 09/06/2023 Data and imaging reviewed: Vital signs reviewed. Blood pressure 144/83, heart rate 112, respiratory rate 16, temp 98.5 F, and SpO2 of 100% on room air. Morning labs reviewed.. CBC showing stable normocytic anemia with hemoglobin of 7.8. BMP showing hyponatremia with sodium of 134 and hypocarbia with bicarb of 17. Magnesium 1.7. Discussed plan of care with general surgery, patient to remain NPO at this time and we will continue to avoid further administration of narcotic medications secondary to prolonged postoperative ileus. CODE STATUS: FULL CODE DVT Prophylaxis: Lovenox SQ GI Prophylaxis: Protonix Thank you for allowing us to participate in the care of this pleasant patient. Do not hesitate to contact us with questions. Someone can be reached from the [facility] hospitalist group all hours of the day at [phone] or via [employer]. Patient was seen independently by Nurse Pracitioner. This document was prepared using GTI dictation software. Please allow for errors in bioinformatics research technician, while rare they do occur. I reviewed the documentation as provided by the CATRINA above, who is the original author of this note. I agree with the documented assessment and plan, with the following changes: none Objective - Vital Signs Vital signs: Vital Signs Temp 98.5 F 11/01/23 08:00 Pulse 112 H 11/01/23 08:00 Resp 16 11/01/23 08:00 BP 144/83 11/01/23 08:00 Pulse Ox 100 11/01/23 08:00 FiO2 Intake & Output 10/31/23 11/01/23 11/01/23 18:59 06:59 18:59 Output Total 901 150 Balance -901 -150 Weight 48.79 kg Output: Urine 150 Stool 1 Emesis 900 Other: Voiding Method Urinal Urinal # Bowel Movements 2 - Labs CBC & Chem 7: 11/01/23 07:47 11/01/23 07:47 Labs: Abnormal Lab Results - Last 24 Hours (Table) 10/31/23 10/31/23 10/31/23 Range/Units 11:21 16:16 20:50 RBC (4.30-5.90) m/uL Hgb (13.0-17.5) gm/dL Hct (39.0-53.0) % MCV (80.0-100.0) fL MCH (25.0-35.0) pg MCHC (31.0-37.0) g/dL RDW (11.5-15.5) % POC Glucose (mg/dL) 174 H 250 H 114 H (70-110) mg/dL 11/01/23 11/01/23 11/01/23 Range/Units 01:28 05:12 07:47 RBC 3.31 L (4.30-5.90) m/uL Hgb 7.8 L (13.0-17.5) gm/dL Hct 26.3 L (39.0-53.0) % MCV 79.5 L (80.0-100.0) fL MCH 23.7 L (25.0-35.0) pg MCHC 29.7 L (31.0-37.0) g/dL RDW 17.4 H (11.5-15.5) % POC Glucose (mg/dL) 171 H 157 H (70-110) mg/dL
[2023-11-01] MEDS: METOPROLOL TARTRATE 25 MG TAB PO STA (15:39)
[2023-11-01] MEDS: METOPROLOL TARTRATE 50 MG TAB PO STA (16:25)
[2023-11-01 17:01] LABS: Glucose,Whole Blood 145 mg/dL (70-110)
--- NOTE | 2023-11-01 19:46 | P.PN ---
Subjective patient seen and evaluated bedside. Patient admits to abdominal pain and being hungry. Admits to diarrhea. Denies nausea vomiting at this time. Objective - Vital Signs Vital signs: Vital Signs Temp 98.4 F 11/01/23 14:00 Pulse 133 H 11/01/23 14:00 Resp 14 11/01/23 14:00 BP 129/89 11/01/23 14:00 Pulse Ox 100 11/01/23 14:00 FiO2 Intake & Output 11/01/23 11/01/23 11/02/23 06:59 18:59 06:59 Intake Total 237 Output Total 150 400 Balance -150 -163 Intake: Oral 237 Output: Urine 150 400 Other: Voiding Method Urinal Urinal # Voids 2 # Bowel Movements 2 2 - Exam general no acute distress alert and oriented 3 Cardiovascular regular in rhythm Pulmonary nonlabored breathing Abdomen soft, minimally tender to palpation no guarding or rebound tenderness - Labs CBC & Chem 7: 11/01/23 07:47 11/01/23 07:47 Labs: Abnormal Lab Results - Last 24 Hours (Table) 10/31/23 11/01/23 11/01/23 Range/Units 20:50 01:28 05:12 RBC (4.30-5.90) m/uL Hgb (13.0-17.5) gm/dL Hct (39.0-53.0) % MCV (80.0-100.0) fL MCH (25.0-35.0) pg MCHC (31.0-37.0) g/dL RDW (11.5-15.5) % Sodium (137-145) mmol/L Chloride (98-107) mmol/L Carbon Dioxide (22-30) mmol/L Creatinine (0.66-1.25) mg/dL Glucose (74-99) mg/dL POC Glucose (mg/dL) 114 H 171 H 157 H (70-110) mg/dL Calcium (8.4-10.2) mg/dL Phosphorus (2.5-4.5) mg/dL Total Bilirubin (0.2-1.3) mg/dL Alkaline Phosphatase (38-126) U/L Total Protein (6.3-8.2) g/dL Albumin (3.5-5.0) g/dL 11/01/23 11/01/23 11/01/23 Range/Units 07:47 07:47 07:47 RBC 3.31 L (4.30-5.90) m/uL Hgb 7.8 L (13.0-17.5) gm/dL Hct 26.3 L (39.0-53.0) % MCV 79.5 L (80.0-100.0) fL MCH 23.7 L (25.0-35.0) pg MCHC 29.7 L (31.0-37.0) g/dL RDW 17.4 H (11.5-15.5) % Sodium 134 L (137-145) mmol/L Chloride 108 H (98-107) mmol/L Carbon Dioxide 17 L (22-30) mmol/L Creatinine 0.57 L (0.66-1.25) mg/dL Glucose 125 H (74-99) mg/dL POC Glucose (mg/dL) (70-110) mg/dL Calcium 8.0 L (8.4-10.2) mg/dL Phosphorus 2.3 L (2.5-4.5) mg/dL Total Bilirubin 0.1 L (0.2-1.3) mg/dL Alkaline Phosphatase 164 H (38-126) U/L Total Protein 5.3 L (6.3-8.2) g/dL Albumin 2.3 L (3.5-5.0) g/dL 11/01/23 11/01/23 Range/Units 12:14 17:00 RBC (4.30-5.90) m/uL Hgb (13.0-17.5) gm/dL Hct (39.0-53.0) % MCV (80.0-100.0) fL MCH (25.0-35.0) pg MCHC (31.0-37.0) g/dL RDW (11.5-15.5) % Sodium (137-145) mmol/L Chloride (98-107) mmol/L Carbon Dioxide (22-30) mmol/L Creatinine (0.66-1.25) mg/dL Glucose (74-99) mg/dL POC Glucose (mg/dL) 176 H 145 H (70-110) mg/dL Calcium (8.4-10.2) mg/dL Phosphorus (2.5-4.5) mg/dL Total Bilirubin (0.2-1.3) mg/dL Alkaline Phosphatase (38-126) U/L Total Protein (6.3-8.2) g/dL Albumin (3.5-5.0) g/dL Assessment and Plan Assessment: 43-year-old male status post lysis of adhesions for small bowel obstruction Continue a low fiber diet at this time Patient complaining of abdominal pain added oxycodone for longer lasting relief in conjunction with Toradol Monitor bowel function Time with Patient: Greater than 30
[2023-11-01 23:58] LABS: Glucose,Whole Blood 145 mg/dL (70-110)
[2023-11-02 05:26] LABS: ALT 13 U/L (4-49); AST 22 U/L (17-59); African American GFR (CKD) >90 (>60 ml/min/1.73 sqM); Albumin 2.3 g/dL (3.5-5.0); Albumin/Globulin Ratio 0.8; Alkaline Phosphatase 157 U/L (38-126); Anion Gap 8 mmol/L; Blood Urea Nitrogen 17 mg/dL (9-20); Calcium 7.5 mg/dL (8.4-10.2); Carbon Dioxide 17 mmol/L (22-30); Chloride 108 mmol/L (98-107); Glucose 122 mg/dL (74-99); Magnesium 1.7 mg/dL (1.6-2.3); Non-African American GFR(CKD) >90 (>60 ml/min/1.73 sqM); Phosphorus 3.1 mg/dL (2.5-4.5); Sodium 133 mmol/L (137-145); Total Bilirubin 0.2 mg/dL (0.2-1.3); Total Protein 5.3 g/dL (6.3-8.2)
[2023-11-02 06:10] LABS: Glucose,Whole Blood 144 mg/dL (70-110)
[2023-11-02] MEDS: METOPROLOL TARTRATE 25 MG TAB PO SCH (09:12)
--- NOTE | 2023-11-02 10:01 | P.PN ---
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 He completed multiple days of IV antibiotics and discharged home on PO Augmentin and DEBORA drain. He presented to the emergency department on 10/09/2023 with a chief complaint of increased abdominal pain, abdominal distention and multiple episodes of bilious vomiting. Upon arrival in the emergency department, patient underwent full evaluation. Vital signs upon arrival showed BP 145/95, HR 101, RR 18, T 90 7.8F, 100% on RA. Labs were completed and revie wed CBC showed WBC count 18.5, hemoglobin 10.6, hematocrit 33.2, MCV 79, platelet 634. CMP showed sodium 134, bicarb 20, creatinine 0.48, glucose 167, albumin 2.9. Lipase 473. Lactic acid 1.4. CT abdomen and pelvis was completed revealing diffuse SB dilation with bowel containing gas, feces, and fluid suspicious for ileus versus small bowel obstruction, drainage catheter in place, and chronic pancreatitis changes. Patient reported having bowel movements despite abdominal distention and worsening pain. Patient was admitted to general surgery team and [facility] was consulted for medical management of this patient throughout hospitalization. DEBORA drain cultures positive for MRSA. Patient failed conservative management of small bowel obstruction and was taken for open laparotomy with lysis of adhesions and resection of small bowel tumor with wound VAC placement on 10/16/2023. Pathology sample was sent to lab for analysis and per pathology report, negative for histopathologic changes and negative for malignancy. Patient with postoperative ileus resulting in nausea and vomiting and reinsertion of NG tube on 10/26/2023 and again removal of NG tube on 10/29/2023. Physical exam: Patient seen and fully evaluated at bedside this morning. He has been tolerating a low fiber diet with no further episodes of nausea or vomiting. Patient and RN at bedside report continued episodes of bowel incontinence as well as 1 intentional bowel movement in the restroom. Vital signs reviewed and stable. General: Nontoxic, no acute distress and appears older than stated age. Thin and frail. Derm: Skin warm and dry, normal coloration for ethnicity. Head: Atraumatic, normocephalic and symmetric. Eyes: EOMs intact, no lid lag, and anicteric sclera Mouth: no lip lesions, mucus membranes moist Cardiovascular: regular rate and rhythm with normal S1S2, no murmur, positive posterior tibial pulses bilaterally, and cap refill < 2 seconds. Lungs: Respirations even, regular, and unlabored on room air. Lungs CTA bilaterally, no rhonchi, no rales, no wheezing, and no accessory muscle usage. Abdominal: Abdomen distended. Postsurgical incision midline with dressing clean, dry, and intact. Abdominal binder in place. NG tube in place. Ext: ROM intact. No gross muscle atrophy, no edema, no contractures. Neuro: Speech clear, face symmetrical and CN II-XII grossly intact with no noted focal neuro deficits Psych: Alert and oriented to person, place, time, and situation. Appropriate and pleasant affect. Assessment and Plan of Care: Sinus tachycardia -Cardiology reconsulted secondary to persistent episodes of sinus tachycardia with heart rate up to 140s. Discussed case with Dr. Sena. -Bilateral lower extremity venous Dopplers were completed negative for DVTs. -Echocardiogram completed revealing a preserved EF of 60 to 65% with small pericardial effusion without tamponade physiology. -Metoprolol 25 mg daily discontinued and patient started on metoprolol 50 mg twice daily. Acute blood loss anemia on anemia of chronic disease. Hemoglobin 6.8. Orders placed for transfusion 1 unit PRBCs. Will continue to monitor and transfuse if needed for hemoglobin less than 7. Iron profile resulting showing total iron of 17, TIBC of 171, iron percentage 9.94, transferrin of 122, and ferritin of 366. Patient completed the day course of IV Ferrlecit 125 mg daily and started on ferrous sulfate 325 mg daily. Recurrent postoperative ileus MRSA infection Recurrent small bowel obstruction requiring open laparotomy with lysis of adhesions and resection of small bowel tumor on 10/16/2023 Retroperitoneal mass History of GERD with erosive esophagitis History of gastritis Elevated lipase with history of chronic pancreatitis Severe protein calorie malnutrition with BMI of 16.9 kg/m -General surgery following, took patient for open laparotomy with lysis of adhesions and resection of small bowel tumor with wound VAC placement on 10/16/2023 -Symptomatic care and pain management. 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 -Patient again having episodes of large-volume emesis and 2 reported episodes of bowel incontinence. -Continue Reglan 10 mg IVP every 6 hours scheduled for persistent nausea and to increase bowel motility. -Continue Protonix 40 mg IVP daily -Dietitian following managing TPN and lipids. -DEBORA drain site culture was positive for MRSA and group D enterococcus faecalis. -Infectious disease following, discussed plan of care. Patient completed extended antibiotic course with Unasyn and vancomycin. -Blood cultures showed no growth -Pathology sample was sent to lab for analysis and per pathology report, negative for histopathologic changes and negative for malignancy. Hypokalemia, resolved and pt is on TPN/Lipids Hypomagnesemia, resolved and pt is on TPN/Lipids Thrombocytosis. Resolved. Platelet count 430. Likely was reactive secondary to postoperative ileus. History of small bowel perforation status post emergent small bowel resection with [id number] duodenojejunostomy 09/06/2023 Data and imaging reviewed: Vital signs reviewed. Blood pressure 130/89, heart rate 132, respiratory rate 20, temp 98.3 F, and SpO2 of 100% on room air. Morning labs reviewed.. CBC showing bicytopenia with WBC count of 3.82 and hemoglobin of 6.8. BMP showing hyponatremia with sodium 133, hyperchloremia with chloride of 108 and hypocarbia with bicarb of 17. Order placed for transfusion 1 unit PRBCs. CODE STATUS: FULL CODE DVT Prophylaxis: Lovenox SQ GI Prophylaxis: Protonix Thank you for allowing us to participate in the care of this pleasant patient. Do not hesitate to contact us with questions. Someone can be reached from the [facility] hospitalist group all hours of the day at [phone] or via perfect serve. Patient was seen independently by Nurse Pracitioner. This document was prepared using [employer] dictation software. Please allow for errors in ems instructor, while rare they do occur. I reviewed the documentation as provided by the CATRINA above, who is the original author of this note. I agree with the documented assessment and plan, with the following changes: none Objective - Vital Signs Vital signs: Vital Signs Temp 98.9 F 11/02/23 00:01 Pulse 121 H 11/02/23 00:01 Resp 16 11/02/23 00:01 BP 149/72 11/02/23 00:01 Pulse Ox 100 11/02/23 00:01 FiO2 Intake & Output 11/01/23 11/02/23 11/02/23 18:59 06:59 18:59 Intake Total 237 Output Total 400 400 Balance -163 -400 Intake: Oral 237 Output: Urine 400 400 Other: Voiding Method Urinal Urinal # Voids 2 # Bowel Movements 2 - Labs CBC & Chem 7: 11/02/23 20:35 11/02/23 04:21 Labs: Abnormal Lab Results - Last 24 Hours (Table) 11/01/23 11/01/23 11/01/23 Range/Units 07:47 07:47 12:14 Sodium 134 L (137-145) mmol/L Chloride 108 H (98-107) mmol/L Carbon Dioxide 17 L (22-30) mmol/L Creatinine 0.57 L (0.66-1.25) mg/dL Glucose 125 H (74-99) mg/dL POC Glucose (mg/dL) 176 H (70-110) mg/dL Calcium 8.0 L (8.4-10.2) mg/dL Phosphorus 2.3 L (2.5-4.5) mg/dL Total Bilirubin 0.1 L (0.2-1.3) mg/dL Alkaline Phosphatase 164 H (38-126) U/L C-Reactive Protein (<1.0) mg/dL Total Protein 5.3 L (6.3-8.2) g/dL Albumin 2.3 L (3.5-5.0) g/dL 11/01/23 11/01/23 11/02/23 Range/Units 17:00 23:57 04:21 Sodium (137-145) mmol/L Chloride (98-107) mmol/L Carbon Dioxide (22-30) mmol/L Creatinine (0.66-1.25) mg/dL Glucose (74-99) mg/dL POC Glucose (mg/dL) 145 H 145 H (70-110) mg/dL Calcium (8.4-10.2) mg/dL Phosphorus (2.5-4.5) mg/dL Total Bilirubin (0.2-1.3) mg/dL Alkaline Phosphatase (38-126) U/L C-Reactive Protein 4.4 H (<1.0) mg/dL Total Protein (6.3-8.2) g/dL Albumin (3.5-5.0) g/dL 11/02/23 11/02/23 Range/Units 04:21 06:09 Sodium 133 L (137-145) mmol/L Chloride 108 H (98-107) mmol/L Carbon Dioxide 17 L (22-30) mmol/L Creatinine 0.61 L (0.66-1.25) mg/dL Glucose 122 H (74-99) mg/dL POC Glucose (mg/dL) 144 H (70-110) mg/dL Calcium 7.5 L (8.4-10.2) mg/dL Phosphorus (2.5-4.5) mg/dL Total Bilirubin (0.2-1.3) mg/dL Alkaline Phosphatase 157 H (38-126) U/L C-Reactive Protein (<1.0) mg/dL Total Protein 5.3 L (6.3-8.2) g/dL Albumin 2.3 L (3.5-5.0) g/dL
[2023-11-02 10:03] LABS: Basophils # (A) 0.01 X 10*3/uL (0.00-0.10); Basophils % (A) 0.3 %; Eosinophils # (A) 0.01 X 10*3/uL (0.04-0.35); Eosinophils % (A) 0.3 %; HCT 22.7 % (39.6-50.0); HGB 6.8 g/dL (13.0-17.0); Lymphocytes % (A) 7.9 %; MCH 22.8 pg (27.0-32.0); MCV 76.2 FL (80.0-97.0); Mean Platelet Volume 8.7 FL (9.5-12.2); Monocytes # (A) 0.35 X 10*3/uL (0.20-1.00); Monocytes % (A) 9.2 %; NRBC Per 100 WBC 0 X 10*3/uL (0.00-0.01); Neutrophils # (A) 3.06 X 10*3/uL (1.80-7.70); Neutrophils % (A) 79.9 %; Platelet Count 365 X 10*3/uL (140-440); RBC 2.98 X 10*6/uL (4.40-5.60); RDW 18.3 % (11.5-14.5); WBC 3.82 X 10*3/uL (4.50-10.00)
--- NOTE | 2023-11-02 11:03 | PN ---
PROGRESS NOTE SUBJECTIVE: Adilson is a 43-year-old gentleman who has been in the hospital for quite some time, was admitted with ileus, underwent laparotomy. He is currently on the OPS unit and I have been asked to see him again because of tachycardia. The patient has heart rates into the 130s. It is sinus tachycardia and does not have any other symptoms. I reviewed his telemetry strips. He is in sinus tach, which could be multifactorial in origin including his weight loss, prolonged hospitalization, and anemia. I am going to put him on Lopressor 50 b.i.d. and increase the dose as needed. The patient has inappropriate sinus tachycardia. OBJECTIVE: VITAL SIGNS: He is afebrile. Heart rate is 130 beats per minute, blood pressure is 130/89, respiratory rate is 18. CHEST: Reveals diminished air entry at the bases. HEART: Reveals first and second heart sounds. No gallop, no murmur. EXTREMITIES: Did not reveal any edema. Peripheral pulses are felt. LABORATORY DATA: Labs show that the hemoglobin is 6.8, potassium is 4, creatinine 0.6. ASSESSMENT: Inappropriate sinus tachycardia. PLAN: The patient will be treated with beta-blockers, had an echocardiogram on 10/27/2023 that revealed normal LV systolic function. MMRODRIGOL / IJN: [id number] /
--- NOTE | 2023-11-02 11:15 | P.PN ---
Subjective Progress Note Date: 11/02/23 Principal diagnosis: Bowel obstruction Patient evaluated today. Says he has no nausea currently. Has not vomited since Friday evening he states. Tolerating some of his low fiber diet. Does not feel distended. Still having some vague abdominal pain but says he thinks it is gradually improving. He is tachycardic today. Cardiology following. Hemoglobin 6.8 and has been trending downward slightly. Objective - Vital Signs Vital signs: Vital Signs Temp 98.3 F 11/02/23 08:00 Pulse 132 H 11/02/23 08:00 Resp 20 11/02/23 08:00 BP 130/89 11/02/23 08:00 Pulse Ox 100 11/02/23 08:00 FiO2 Intake & Output 11/01/23 11/02/23 11/02/23 18:59 06:59 18:59 Intake Total 237 Output Total 400 400 Balance -163 -400 Intake: Oral 237 Output: Urine 400 400 Other: Voiding Method Urinal Urinal # Voids 2 # Bowel Movements 2 - Exam Abdomen: Soft, minimal distention, mild diffuse tenderness, no rebound or guarding - Labs CBC & Chem 7: 11/02/23 04:21 11/02/23 04:21 Labs: Abnormal Lab Results - Last 24 Hours (Table) 11/01/23 11/01/23 11/01/23 Range/Units 12:14 17:00 23:57 WBC (4.50-10.00) X 10*3/uL RBC (4.40-5.60) X 10*6/uL Hgb (13.0-17.0) g/dL Hct (39.6-50.0) % MCV (80.0-97.0) FL MCH (27.0-32.0) pg MCHC (32.0-37.0) g/dL RDW (11.5-14.5) % MPV (9.5-12.2) FL Immature Gran # (0.00-0.04) X 10*3/uL Lymphocytes # (0.90-5.00) X 10*3/uL Eosinophils # (0.04-0.35) X 10*3/uL Sodium (137-145) mmol/L Chloride (98-107) mmol/L Carbon Dioxide (22-30) mmol/L Creatinine (0.66-1.25) mg/dL Glucose (74-99) mg/dL POC Glucose (mg/dL) 176 H 145 H 145 H (70-110) mg/dL Calcium (8.4-10.2) mg/dL Alkaline Phosphatase (38-126) U/L C-Reactive Protein (<1.0) mg/dL Total Protein (6.3-8.2) g/dL Albumin (3.5-5.0) g/dL 11/02/23 11/02/23 11/02/23 Range/Units 04:21 04:21 04:21 WBC 3.82 L (4.50-10.00) X 10*3/uL RBC 2.98 L (4.40-5.60) X 10*6/uL Hgb 6.8 A* (13.0-17.0) g/dL Hct 22.7 L (39.6-50.0) % MCV 76.2 L (80.0-97.0) FL MCH 22.8 L (27.0-32.0) pg MCHC 30.0 L (32.0-37.0) g/dL RDW 18.3 H (11.5-14.5) % MPV 8.7 L (9.5-12.2) FL Immature Gran # 0.09 H (0.00-0.04) X 10*3/uL Lymphocytes # 0.30 L (0.90-5.00) X 10*3/uL Eosinophils # 0.01 L (0.04-0.35) X 10*3/uL Sodium 133 L (137-145) mmol/L Chloride 108 H (98-107) mmol/L Carbon Dioxide 17 L (22-30) mmol/L Creatinine 0.61 L (0.66-1.25) mg/dL Glucose 122 H (74-99) mg/dL POC Glucose (mg/dL) (70-110) mg/dL Calcium 7.5 L (8.4-10.2) mg/dL Alkaline Phosphatase 157 H (38-126) U/L C-Reactive Protein 4.4 H (<1.0) mg/dL Total Protein 5.3 L (6.3-8.2) g/dL Albumin 2.3 L (3.5-5.0) g/dL 11/02/23 Range/Units 06:09 WBC (4.50-10.00) X 10*3/uL RBC (4.40-5.60) X 10*6/uL Hgb (13.0-17.0) g/dL Hct (39.6-50.0) % MCV (80.0-97.0) FL MCH (27.0-32.0) pg MCHC (32.0-37.0) g/dL RDW (11.5-14.5) % MPV (9.5-12.2) FL Immature Gran # (0.00-0.04) X 10*3/uL Lymphocytes # (0.90-5.00) X 10*3/uL Eosinophils # (0.04-0.35) X 10*3/uL Sodium (137-145) mmol/L Chloride (98-107) mmol/L Carbon Dioxide (22-30) mmol/L Creatinine (0.66-1.25) mg/dL Glucose (74-99) mg/dL POC Glucose (mg/dL) 144 H (70-110) mg/dL Calcium (8.4-10.2) mg/dL Alkaline Phosphatase (38-126) U/L C-Reactive Protein (<1.0) mg/dL Total Protein (6.3-8.2) g/dL Albumin (3.5-5.0) g/dL Assessment and Plan (1) Small bowel perforation Narrative/Plan: 43-year-old male with small bowel obstruction and subsequent ileus. Patient seems to be doing better currently. Continue low fiber diet. Increase activity. Transfuse 1 unit RBC. Monitor tachycardia. Current Visit: Yes Status: Acute Code(s): K63.1 - PERFORATION OF INTESTINE (NONTRAUMATIC) SNOMED Code(s): 494355427
[2023-11-02] MEDS: cloNIDine HCL 0.1 MG TAB PO SCH (11:27)
[2023-11-02 12:24] LABS: Glucose,Whole Blood 141 mg/dL (70-110)
[2023-11-02] MEDS: MAGNESIUM SULFATE-D5W PMX 1 GM in DEXTROSE/WATER 1 100ML.BAG IVPB SCH (13:51)
--- NOTE | 2023-11-02 14:59 | P.PN ---
Subjective Progress Note Date: 11/02/23 Principal diagnosis: Reason for follow-up is fever/ileus/obstruction Patient is a 43-year-old -[place] male past medical history significant for right-sided jaw cancer for the patient be treated with chemoradiation therapy, patient also have a history of alcohol abuse possible acute and chronic pancreatitis patient recently did have a prolonged hospital stay for bowel obstruction and this patient who did have a perforated small bowel and status post resection on 09/06/2023 did have prolonged ileus, now presenting back to the hospital abdominal pain and vomiting has been diagnosed with ileus/obstruction.Patient is status post open expiratory laparotomy with lysis o f adhesion excision of small bowel tumor x 3 closure of decompressive enterostomy and drainage of abdominal ascites completed on 10/16/2023. On today's evaluation that is 11/02/2023, Patient is afebrile patient is currently on room air and denies having any shortness of breath, the patient denies any chest pain or cough, the patient complaining of some nausea and abdominal pain did not have any bowel movement mention passing gas. Patient white count of 3.82, creatinine 0.61 Objective - Vital Signs Vital signs: Vital Signs Temp 98.3 F 11/02/23 08:00 Pulse 132 H 11/02/23 08:00 Resp 20 11/02/23 08:00 BP 130/89 11/02/23 08:00 Pulse Ox 100 11/02/23 08:00 FiO2 Intake & Output 11/01/23 11/02/23 11/02/23 18:59 06:59 18:59 Intake Total 237 Output Total 400 400 Balance -163 -400 Intake: Oral 237 Output: Urine 400 400 Other: Voiding Method Urinal Urinal # Voids 2 # Bowel Movements 2 - Exam GENERAL DESCRIPTION: Middle-age male up in the chair in no distress RESPIRATORY SYSTEM: Unlabored breathing , decreased breath sounds at bases HEART: S1 S2 regular rate and rhythm , ABDOMEN: Soft , mild distention and tenderness EXTREMITIES: No edema feet - Labs CBC & Chem 7: 11/02/23 04:21 11/02/23 04:21 Labs: Abnormal Lab Results - Last 24 Hours (Table) 11/01/23 11/01/23 11/02/23 Range/Units 17:00 23:57 04:21 WBC 3.82 L (4.50-10.00) X 10*3/uL RBC 2.98 L (4.40-5.60) X 10*6/uL Hgb 6.8 A* (13.0-17.0) g/dL Hct 22.7 L (39.6-50.0) % MCV 76.2 L (80.0-97.0) FL MCH 22.8 L (27.0-32.0) pg MCHC 30.0 L (32.0-37.0) g/dL RDW 18.3 H (11.5-14.5) % MPV 8.7 L (9.5-12.2) FL Immature Gran # 0.09 H (0.00-0.04) X 10*3/uL Lymphocytes # 0.30 L (0.90-5.00) X 10*3/uL Eosinophils # 0.01 L (0.04-0.35) X 10*3/uL Sodium (137-145) mmol/L Chloride (98-107) mmol/L Carbon Dioxide (22-30) mmol/L Creatinine (0.66-1.25) mg/dL Glucose (74-99) mg/dL POC Glucose (mg/dL) 145 H 145 H (70-110) mg/dL Calcium (8.4-10.2) mg/dL Alkaline Phosphatase (38-126) U/L C-Reactive Protein (<1.0) mg/dL Total Protein (6.3-8.2) g/dL Albumin (3.5-5.0) g/dL 11/02/23 11/02/23 11/02/23 Range/Units 04:21 04:21 06:09 WBC (4.50-10.00) X 10*3/uL RBC (4.40-5.60) X 10*6/uL Hgb (13.0-17.0) g/dL Hct (39.6-50.0) % MCV (80.0-97.0) FL MCH (27.0-32.0) pg MCHC (32.0-37.0) g/dL RDW (11.5-14.5) % MPV (9.5-12.2) FL Immature Gran # (0.00-0.04) X 10*3/uL Lymphocytes # (0.90-5.00) X 10*3/uL Eosinophils # (0.04-0.35) X 10*3/uL Sodium 133 L (137-145) mmol/L Chloride 108 H (98-107) mmol/L Carbon Dioxide 17 L (22-30) mmol/L Creatinine 0.61 L (0.66-1.25) mg/dL Glucose 122 H (74-99) mg/dL POC Glucose (mg/dL) 144 H (70-110) mg/dL Calcium 7.5 L (8.4-10.2) mg/dL Alkaline Phosphatase 157 H (38-126) U/L C-Reactive Protein 4.4 H (<1.0) mg/dL Total Protein 5.3 L (6.3-8.2) g/dL Albumin 2.3 L (3.5-5.0) g/dL 11/02/23 Range/Units 12:22 WBC (4.50-10.00) X 10*3/uL RBC (4.40-5.60) X 10*6/uL Hgb (13.0-17.0) g/dL Hct (39.6-50.0) % MCV (80.0-97.0) FL MCH (27.0-32.0) pg MCHC (32.0-37.0) g/dL RDW (11.5-14.5) % MPV (9.5-12.2) FL Immature Gran # (0.00-0.04) X 10*3/uL Lymphocytes # (0.90-5.00) X 10*3/uL Eosinophils # (0.04-0.35) X 10*3/uL Sodium (137-145) mmol/L Chloride (98-107) mmol/L Carbon Dioxide (22-30) mmol/L Creatinine (0.66-1.25) mg/dL Glucose (74-99) mg/dL POC Glucose (mg/dL) 141 H (70-110) mg/dL Calcium (8.4-10.2) mg/dL Alkaline Phosphatase (38-126) U/L C-Reactive Protein (<1.0) mg/dL Total Protein (6.3-8.2) g/dL Albumin (3.5-5.0) g/dL Assessment and Plan (1) Leukocytosis Current Visit: Yes Status: Acute Code(s): D72.829 - ELEVATED WHITE BLOOD CELL COUNT, UNSPECIFIED SNOMED Code(s): 728758646 (2) Ileus Current Visit: Yes Status: Acute Code(s): K56.7 - ILEUS, UNSPECIFIED SNO MED Code(s): 663982461 (3) MRSA (methicillin resistant staph aureus) culture positive Current Visit: Yes Status: Acute Code(s): Z22.322 - CARRIER OR SUSPECTED CARRIER OF METHICILLIN RESIS STAPH SNOMED Code(s): 742779813 Plan: 1patient presented hospital with sepsis in this patient who did have an elevated white count tachycardia source likely abdominal pain this patient did have predominantly abdominal symptoms with abdominal pain and vomiting CT has been suggestive of ileus/obstruction and will likely need to cover for the en teric gram-negative both aerobes and anaerobes 2- cultures from the DEBORA grew MRSA as well as Enterococcus 3-patient is status post extensive abdominal surgery did not mention any perforation or abscess no cultures 4- patient has received adequate antibiotic therapy for underlying infection and is currently being monitored closely off antibiotic therapy Dictation was produced using [employer] dictation software. please excuse any grammatical, word or spelling errors. Time with Patient: Less than 30
[2023-11-02] MEDS: FERROUS SULFATE 325 MG TAB PO SCH (16:35)
[2023-11-02 19:41] LABS: Glucose,Whole Blood 165 mg/dL (70-110)
[2023-11-02 20:54] LABS: Anisocytosis Slight; HCT 30.2 % (39.0-53.0); HGB 9.2 gm/dL (13.0-17.5); Hypochromasia Marked; MCHC 30.3 g/dL (31.0-37.0); Mean Platelet Volume 7.8; Microcytosis Slight; Platelet Count 376 k/uL (150-450); RBC 3.82 m/uL (4.30-5.90); RDW 17.7 % (11.5-15.5); WBC 9.4 k/uL (3.8-10.6)
[2023-11-02 21:02] LABS: Appearance,Urine Clear (Clear); Bilirubin,Urine Negative (Negative); Blood,Urine Negative (Negative); Color,Urine Colorless; Glucose,Urine (UA) Negative (Negative); Ketones,Urine Negative (Negative); Leukocyte Esterase,Urine Negative (Negative); Nitrite,Urine Negative (Negative); PH, Urine 5.5 (5.0-8.0); Protein,Urine Negative (Negative); Specific Gravity,Urine 1.017 (1.001-1.035); Urobilinogen,Urine <2.0 mg/dL (<2.0)
[2023-11-02] MEDS: METOPROLOL TARTRATE 50 MG TAB PO SCH (21:06)
--- NOTE | 2023-11-02 21:28 | XR ---
EXAMINATION TYPE: XR chest 1V portable DATE OF EXAM: 11/02/2023 COMPARISON: 10/20/2023 HISTORY: Chest pain TECHNIQUE: Single frontal view of the chest is obtained. FINDINGS: New area of moderate-sized airspace consolidation right midlung zone. Correlate for underlying pneumo jennifer. Progress studies are recommended until resolution. Left-sided PICC line is in place as is right- sided MediPort catheter. The cardiac silhouette size is within normal limits. The osseous structures are intact. IMPRESSION: 1. New area of moderate-sized airspace consolidation right midlung zone. Correlate for underlying pn eumonia. Progress studies are recommended until resolution.
[2023-11-02] MEDS ORDERED: VANCOMYCIN IV PER PHARMACY 1 EACH MISC MISCELLANE PRN (22:45)
[2023-11-03 00:09] LABS: Glucose,Whole Blood 136 mg/dL (70-110)
[2023-11-03] MEDS: VANCOMYCIN 1,000 MG in SODIUM CHLORIDE 0.9% 250 ML IVPB SCH (00:14)
[2023-11-03 06:13] LABS: Glucose,Whole Blood 166 mg/dL (70-110)
--- NOTE | 2023-11-03 08:09 | XR ---
EXAMINATION TYPE: XR abdomen complete w decub DATE OF EXAM: 11/03/2023 COMPARISON: 10/31/2023 HISTORY: Vomiting TECHNIQUE: Supine, upright, and left side down lateral decubitus views of the abdomen are obtained. FINDINGS: There is dilated bowel loops with air-fluid levels noted. Surgical laurence seen. A large area of consolidation in the right upper lobe with the Mediport catheter noted. Osseous struc tures stable. Calcification along the right paraspinal line versus retained contrast. Arthropathy of the hips. Diffuse osteopenia. Degenerative change of the spine. IMPRESSION: Persistent dilated bowel loops correlate for severe ileus versus partial obstruction. Large area of dense consolidation right upper lobe correlate for pneumonia. Underlying neoplasm not e xcluded.
--- NOTE | 2023-11-03 11:12 | P.PN ---
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 He completed multiple days of IV antibiotics and discharged home on PO Augmentin and DEBORA drain. He presented to the emergency department on 10/09/2023 with a chief complaint of increased abdominal pain, abdominal distention and multiple episodes of bilious vomiting. Upon arrival in the emergency department, patient underwent full evaluation. Vital signs upon arrival showed BP 145/95, HR 101, RR 18, T 90 7.8F, 100% on RA. Labs were completed and revie wed CBC showed WBC count 18.5, hemoglobin 10.6, hematocrit 33.2, MCV 79, platelet 634. CMP showed sodium 134, bicarb 20, creatinine 0.48, glucose 167, albumin 2.9. Lipase 473. Lactic acid 1.4. CT abdomen and pelvis was completed revealing diffuse SB dilation with bowel containing gas, feces, and fluid suspicious for ileus versus small bowel obstruction, drainage catheter in place, and chronic pancreatitis changes. Patient reported having bowel movements despite abdominal distention and worsening pain. Patient was admitted to general surgery team and [facility] was consulted for medical management of this patient throughout hospitalization. DEBORA drain cultures positive for MRSA. Patient failed conservative management of small bowel obstruction and was taken for open laparotomy with lysis of adhesions and resection of small bowel tumor with wound VAC placement on 10/16/2023. Pathology sample was sent to lab for analysis and per pathology report, negative for histopathologic changes and negative for malignancy. Patient with postoperative ileus resulting in nausea and vomiting and reinsertion of NG tube on 10/26/2023 and again removal of NG tube on 10/29/2023. On the evening of 11/02/2023 patient was receiving blood transfusion and spiked an elevated temp as high as 101.6 F and tachycardia with heart rate 130s. Blood cultures were obtained and patient was started back on IV antibiotics with vancomycin and transferred to [facility] for closer monitoring. Patient continues to have incontinent stools and has been made NPO with general surgery placing orders for fluoroscopic small bowel follow-through. Physical exam: Patient seen and fully evaluated at bedside this morning. He was resting in bed and reports overall just feeling awful. He reports continued abdominal pain/distention. Denies any further episodes of nausea or vomiting and no further elevated temps with current vital signs showing blood pressure 131/78, heart rate 120, respiratory rate 15, temp 98.8 F, and SpO2 of 97% on room air. Vital signs reviewed and stable. General: Nontoxic, no acute distress and appears older than stated age. Thin and frail. Derm: Skin warm and dry, normal coloration for ethnicity. Head: Atraumatic, normocephalic and symmetric. Eyes: EOMs intact, no lid lag, and anicteric sclera Mouth: no lip lesions, mucus membranes moist Cardiovascular: regular rate and rhythm with normal S1S2, no murmur, positive posterior tibial pulses bilaterally, and cap refill < 2 seconds. Lungs: Respirations even, regular, and unlabored on room air. Lungs CTA bilaterally, no rhonchi, no rales, no wheezing, and no accessory muscle usage. Abdominal: Abdomen distended. Postsurgical incision midline with dressing clean , dry, and intact. Abdominal binder in place. Ext: ROM intact. No gross muscle atrophy, no edema, no contractures. Neuro: Speech clear, face symmetrical and CN II-XII grossly intact with no noted focal neuro deficits Psych: Alert and oriented to person, place, time, and situation. Appropriate and pleasant affect. Assessment and Plan of Care: Sinus tachycardia -Cardiology reconsulted secondary to persistent episodes of sinus tachycardia with heart rate up to 140s. Discussed case with Dr. Sena. -Bilateral lower extremity venous Dopplers were completed negative for DVTs. -Echocardiogram completed revealing a preserved EF of 60 to 65% with small pericardial effusion without tamponade physiology. -Metoprolol 25 mg daily discontinued and patient started on metoprolol 50 mg twice daily. Acute blood loss anemia on anemia of chronic disease. Hemoglobin 6.8. Orders placed for transfusion 1 unit PRBCs. Will continue to monitor and transfuse if needed for hemoglobin less than 7. Iron profile resulting showing total iron of 17, TIBC of 171, iron percentage 9.94, transferrin of 122, and ferritin of 366. Patient completed the day course of IV Ferrlecit 125 mg daily and started on ferrous sulfate 325 mg daily. Pyrexia, possibly secondary to blood transfusion reaction vs infectious process -Transfusion was stopped and tubing/bag sent to blood bank for analysis. -Infectious process also being ruled out, blood cultures drawn and patient started on IV antibiotics with vancomycin per infectious disease. Recurrent postoperative ileus MRSA infection Recurrent small bowel obstruction requiring open laparotomy with lysis of adhesions and resection of small bowel tumor on 10/16/2023 Retroperitoneal mass History of GERD with erosive esophagitis History of gastritis Elevated lipase with history of chronic pancreatitis Severe protein calorie malnutrition with BMI of 16.9 kg/m -General surgery following, took patient for open laparotomy with lysis of adhesions and resection of small bowel tumor with wound VAC placement on 10/16/2023 -Symptomatic care and pain management. Zofran 4 mg IVP every 8 hours as needed for nausea and/or vomiting -General surgery placing order for fluoroscopic small bowel follow-through to be completed. -Continue Reglan 10 mg IVP every 6 hours scheduled for persistent nausea and to increase bowel motility. -Continue Protonix 40 mg IVP daily -Dietitian following managing TPN and lipids. -DEBORA drain site culture was positive for MRSA and group D enterococcus faecalis. -Infectious disease following, discussed plan of care. Patient completed extended antibiotic course with Unasyn and vancomycin for treatment of MRSA infection. -Blood cultures showed no growth. As stated above, repeat cultures drawn at this time secondary to patient spiking elevated temps. -Pathology sample was sent to lab for analysis and per pathology report, negative for histopathologic changes and negative for malignancy. Hypokalemia, resolved and pt is on TPN/Lipids Hypomagnesemia, resolved and pt is on TPN/Lipids Thrombocytosis. Resolved. Platelet count 430. Likely was reactive secondary to postoperative ileus. History of small bowel perforation status post emergent small bowel resection with [id number] duodenojejunostomy 09/06/2023 Data and imaging reviewed: Vital signs reviewed. Blood pressure 131/78, heart rate 120, respiratory rate 15, temp 98.8 F, and SpO2 of 97% on room air. Morning labs reviewed.. CBC showing WBC count of 9.4, hemoglobin of 9.2, and platelet count of 376 status post transfusion of 1 unit PRBCs. Repeat Morning labs currently pending. CODE STATUS: FULL CODE DVT Prophylaxis: Lovenox SQ GI Prophylaxis: Protonix Thank you for allowing us to participate in the care of this pleasant patient. Do not hesitate to contact us with questions. Someone can be reached from the [facility] hospitalist group all hours of the day at [phone] or via perfect serve. Patient was seen independently by Nurse Pracitioner. This document was prepared using [employer] dictation software. Please allow for errors in wildland fire fighter, while rare they do occur. I reviewed the documentation as provided by the CATRINA above, who is the original author of this note. I agree with the documented assessment and plan, with the following changes: none Objective - Vital Signs Vital signs: Vital Signs Temp 98.4 F 11/03/23 04:00 Pulse 116 H 11/03/23 04:00 Resp 16 11/03/23 04:00 BP 132/76 11/03/23 04:00 Pulse Ox 98 11/03/23 04:00 FiO2 Intake & Output 11/02/23 11/03/23 11/03/23 18:59 06:59 18:59 Intake Total 2285 340 Output Total 1000 Balance 2285 -660 Intake: IV 30 Invasive Line 4 10 Invasive Line 5 20 Intake, IV Titration 2034 Amount Magnesium Sulfate-D5w Pmx 200 1 gm In Dextrose/Water 1 100ml.bag @ 100 mls/hr IVPB Q1H [facility] Rx#: [id number] Mvi, Adult No.4 with Vit 1635 K 10 ml Trace (Conc-1Ml/ Dose) 1 ml Sodium Chloride 4Meq/ml Vial 80 meq Sodium Acetate 20 meq Potassium Acetate 30 meq Calcium Gluconate 1 gm Magnesium Sulfate gm 2.5 gm Potassium Phosphate 12 mmol In Amino Acids 5 %/ Dextrose 20 % 1,000 ml @ 70 mls/hr IV .BY DURATION [facility] Rx#:[id number] Sodium Chloride 0.9% 1, 200 000 ml @ 50 mls/hr IV . Q20H [facility] Rx#:[id number] Oral 250 Blood Product 0 310 Rc As-1 Unit 0 310 [id number] Output: Urine 1000 Other: Voiding Method Urinal # Voids 4 - Labs CBC & Chem 7: 11/03/23 14:44 11/03/23 14:44 Labs: Abnormal Lab Results - Last 24 Hours (Table) 11/02/23 11/02/23 11/02/23 Range/Units 04:21 12:22 13:55 WBC 3.82 L (4.50-10.00) X 10*3/uL RBC 2.98 L (4.40-5.60) X 10*6/uL Hgb 6.8 A* (13.0-17.0) g/dL Hct 22.7 L (39.6-50.0) % MCV 76.2 L (80.0-97.0) FL MCH 22.8 L (27.0-32.0) pg MCHC 30.0 L (32.0-37.0) g/dL RDW 18.3 H (11.5-14.5) % MPV 8.7 L (9.5-12.2) FL Immature Gran # 0.09 H (0.00-0.04) X 10*3/uL Lymphocytes # 0.30 L (0.90-5.00) X 10*3/uL Eosinophils # 0.01 L (0.04-0.35) X 10*3/uL POC Glucose (mg/dL) 141 H (70-110) mg/dL C-Reactive Protein (<1.0) mg/dL Crossmatch See Detail 11/02/23 11/02/23 11/02/23 Range/Units 19:40 20:35 22:49 WBC (4.50-10.00) X 10*3/uL RBC 3.82 L (4.40-5.60) X 10*6/uL Hgb 9.2 L (13.0-17.0) g/dL Hct 30.2 L (39.6-50.0) % MCV 79.0 L (80.0-97.0) FL MCH 24.0 L (27.0-32.0) pg MCHC 30.3 L (32.0-37.0) g/dL RDW 17.7 H (11.5-14.5) % MPV (9.5-12.2) FL Immature Gran # (0.00-0.04) X 10*3/uL Lymphocytes # (0.90-5.00) X 10*3/uL Eosinophils # (0.04-0.35) X 10*3/uL POC Glucose (mg/dL) 165 H (70-110) mg/dL C-Reactive Protein 7.8 H (<1.0) mg/dL Crossmatch 11/03/23 11/03/23 Range/Units 00:08 06:12 WBC (4.50-10.00) X 10*3/uL RBC (4.40-5.60) X 10*6/uL Hgb (13.0-17.0) g/dL Hct (39.6-50.0) % MCV (80.0-97.0) FL MCH (27.0-32.0) pg MCHC (32.0-37.0) g/dL RDW (11.5-14.5) % MPV (9.5-12.2) FL Immature Gran # (0.00-0.04) X 10*3/uL Lymphocytes # (0.90-5.00) X 10*3/uL Eosinophils # (0.04-0.35) X 10*3/uL POC Glucose (mg/dL) 136 H 166 H (70-110) mg/dL C-Reactive Protein (<1.0) mg/dL Crossmatch
[2023-11-03 13:32] LABS: Glucose,Whole Blood 142 mg/dL (70-110)
[2023-11-03 14:57] LABS: Anisocytosis Slight; HCT 30.3 % (39.0-53.0); HGB 9.2 gm/dL (13.0-17.5); Hypochromasia Moderate; MCH 23.5 pg (25.0-35.0); MCHC 30.2 g/dL (31.0-37.0); MCV 77.9 fL (80.0-100.0); Mean Platelet Volume 7.6; Microcytosis Slight; Platelet Count 391 k/uL (150-450); RBC 3.89 m/uL (4.30-5.90); RDW 18.1 % (11.5-15.5); WBC 10.3 k/uL (3.8-10.6)
--- NOTE | 2023-11-03 16:01 | P.PN ---
Subjective Progress Note Date: 11/03/23 CHIEF COMPLAINT: Recurrent small bowel obstruction HISTORY OF PRESENT ILLNESS: Patient is status post open exploratory laparotomy with lysis of adhesions, excision of small bowel tumor x 3 closure of decom pressive enterostomy, drainage of abdominal ascites and partial omentectomy on 10/16/23. Patient transferred to cardiac floor due to tachycardia, fever and possible blood transfusion reaction. Patient had vomiting yesterday. No further vomiting. Abdominal x-ray reported persistent dilated bowel loops correlate for severe ileus versus partial obstruction. Large area of dense consolidation right upper lobe correlate for pneumonia. Tmax 101.6 tachycardic WBC 10.3 Hgb stable at 9.2. Patient did get a unit of blood for hemoglobin of 6.8 and then repeat hemoglobin of 9.2. Blood transfusion was stopped. Infectious disease did restart the vancomycin. Patient does report having loose stools and flatus. PHYSICAL EXAM: VITAL SIGNS: Reviewed GENERAL: Well-developed in no acute distress. HEENT: No sclera icterus. Extraocular movements grossly intact. Moist buccal mucosa. Head is atraumatic, normocephalic. Hears conversational speech. No nasal drainage. NECK: Supple without lymphadenopathy. CHEST: Non-labored respirations and equal bilateral excursions. CARDIOVASCULAR: Palpable 2+ radial pulses. ABDOMEN: Soft. Mildly distended. Mild tenderness at incision site incision s ite clean dry and intact MUSCULOSKELETAL: No clubbing or cyanosis. NEUROLOGIC: No focal or lateralizing signs. Cranial nerves II through XII grossly intact. PSYCH: Appropriate affect. Alert and oriented to person, place and time. SKIN: Well perfused. Good skin turgor. ASSESSMENT: 1. Small bowel obstruction 2. History of perforated small bowel 3. Severe protein malnutrition 4. Chronic constipation 5. Dehydration 6. Prior history of tracheostomy and mandibular cancer 7. History of marijuana use. 8. Expected ileus 9. Hypomagnesia 10. Iron deficiency anemia 11. Underweight, BMI 16.5 12. Supraventricular tachycardia 13. MRSA DEBORA drain fluid 14. Possible pneumonia PLAN: -Small bowel follow-through with gastrografin ordered for further evaluation of possible small bowel obstruction -Continue TPN for nutrition support. Discontinue IV fluids -Advance diet to low fiber -Encourage patient ambulate -Continue lactulose or bowel regimen -Continue Reglan -Continue antibiotics per ID -DVT prophylaxis Heparin Physician Physician Primary Care Sports Medicine note has been reviewed by physician. Signing provider agrees with the documented findings, assessment, and plan of care. Objective - Vital Signs Vital signs: Vital Signs Temp 100.1 F H 11/03/23 11:49 Pulse 114 H 11/03/23 11:49 Resp 17 11/03/23 11:49 BP 116/71 11/03/23 11:49 Pulse Ox 96 11/03/23 11:49 FiO2 Intake & Output 11/02/23 11/03/23 11/03/23 18:59 06:59 18:59 Intake Total 2285 340 1079 Output Total 1000 Balance 2285 -660 1079 Weight 48.79 kg Intake: IV 30 10 Invasive Line 4 10 10 Invasive Line 5 20 Intake, IV Titration 5 1069 Amount Magnesium Sulfate-D5w Pmx 200 1 gm In Dextrose/Water 1 100ml.bag @ 100 mls/hr IVPB Q1H [facility] Rx#: [id number] Mvi, Adult No.4 with Vit 1635 K 10 ml Trace (Conc-1Ml/ Dose) 1 ml Sodium Chloride 4Meq/ml Vial 80 meq Sodium Acetate 20 meq Potassium Acetate 30 meq Calcium Gluconate 1 gm Magnesium Sulfate gm 2.5 gm Potassium Phosphate 12 mmol In Amino Acids 5 %/ Dextrose 20 % 1,000 ml @ 70 mls/hr IV .BY DURATION [facility] Rx#:[id number] Sodium Chloride 0.9% 1, 200 000 ml @ 50 mls/hr IV . Q20H [facility] Rx#:[id number] Sodium Chloride 4Meq/ml 1069 Vial 100 meq Sodium Acetate 20 meq Potassium Acetate 30 meq Calcium Gluconate 1 gm Magnesium Sulfate gm 2.5 gm Potassium Phosphate 12 mmol In Amino Acids 5 %/ Dextrose 20 % 1,000 ml @ 70 mls/hr IV .BY DURATION [facility] Rx#:[id number] Oral 250 Blood Product 0 310 Rc As-1 Unit 0 310 [id number] Output: Urine 1000 Other: Voiding Method Urinal # Voids 4 1 # Bowel Movements 1 - Labs CBC & Chem 7: 11/03/23 14:44 11/02/23 04:21 Labs: Abnormal Lab Results - Last 24 Hours (Table) 11/02/23 11/02/23 11/02/23 Range/Units 13:55 19:40 20:35 RBC 3.82 L (4.30-5.90) m/uL Hgb 9.2 L (13.0-17.5) gm/dL Hct 30.2 L (39.0-53.0) % MCV 79.0 L (80.0-100.0) fL MCH 24.0 L (25.0-35.0) pg MCHC 30.3 L (31.0-37.0) g/dL RDW 17.7 H (11.5-15.5) % POC Glucose (mg/dL) 165 H (70-110) mg/dL C-Reactive Protein (<1.0) mg/dL Procalcitonin (0.02-0.09) ng/mL Crossmatch See Detail 11/02/23 11/02/23 11/03/23 Range/Units 22:49 22:49 00:08 RBC (4.30-5.90) m/uL Hgb (13.0-17.5) gm/dL Hct (39.0-53.0) % MCV (80.0-100.0) fL MCH (25.0-35.0) pg MCHC (31.0-37.0) g/dL RDW (11.5-15.5) % POC Glucose (mg/dL) 136 H (70-110) mg/dL C-Reactive Protein 7.8 H (<1.0) mg/dL Procalcitonin 0.67 H (0.02-0.09) ng/mL Crossmatch 11/03/23 11/03/23 Range/Units 06:12 13:30 RBC (4.30-5.90) m/uL Hgb (13.0-17.5) gm/dL Hct (39.0-53.0) % MCV (80.0-100.0) fL MCH (25.0-35.0) pg MCHC (31.0-37.0) g/dL RDW (11.5-15.5) % POC Glucose (mg/dL) 166 H 142 H (70-110) mg/dL C-Reactive Protein (<1.0) mg/dL Procalcitonin (0.02-0.09) ng/mL Crossmatch
[2023-11-03 16:03] LABS: ALT 19 U/L (4-49); AST 36 U/L (17-59); African American GFR (CKD) >90 (>60 ml/min/1.73 sqM); Albumin 2.3 g/dL (3.5-5.0); Albumin/Globulin Ratio 0.8; Alkaline Phosphatase 199 U/L (38-126); Anion Gap 11 mmol/L; Blood Urea Nitrogen 19 mg/dL (9-20); Calcium 7.7 mg/dL (8.4-10.2); Carbon Dioxide 17 mmol/L (22-30); Chloride 108 mmol/L (98-107); Glucose 143 mg/dL (74-99); Non-African American GFR(CKD) >90 (>60 ml/min/1.73 sqM); Phosphorus 3.2 mg/dL (2.5-4.5); Potassium 4.1 mmol/L (3.5-5.1); Sodium 136 mmol/L (137-145); Total Bilirubin 0.3 mg/dL (0.2-1.3); Total Protein 5.3 g/dL (6.3-8.2)
[2023-11-03 17:54] LABS: Glucose,Whole Blood 181 mg/dL (70-110)
--- NOTE | 2023-11-03 23:01 | P.PN ---
Subjective Progress Note Date: 11/03/23 Principal diagnosis: Reason for follow-up is fever/ileus/obstruction Patient is a 43-year-old -German male past medical history significant for right-sided jaw cancer for the patient be treated with chemoradiation therapy, patient also have a history of alcohol abuse possible acute and chronic pancreatitis patient recently did have a prolonged hospital stay for bowel obstruction and this patient who did have a perforated small bowel and status post resection on 09/06/2023 did have prolonged ileus, now presenting back to the hospital abdominal pain and vomiting has been diagnosed with ileus/obstruction.Patient is status post open expiratory laparotomy with lysis o f adhesion excision of small bowel tumor x 3 closure of decompressive enterostomy and drainage of abdominal ascites completed on 10/16/2023. On today's evaluation that is 11/03/2023, patient did spike a fever last night of 101.6 F happened when he was getting blood transfusion and did have a low-grade fever 100.1 this morning patient is currently breathing comfortably on room air denies any chest pain shortness with or cough still complaining abdominal pain no bowel movement no further nausea vomiting. Patient white count is 10.3, creatinine 0.63 blood cultures obtained yesterday are currently pending Objective - Vital Signs Vital signs: Vital Signs Temp 100.1 F H 11/03/23 11:49 Pulse 114 H 11/03/23 11:49 Resp 17 11/03/23 11:49 BP 116/71 11/03/23 11:49 Pulse Ox 96 11/03/23 11:49 FiO2 Intake & Output 11/02/23 11/03/23 11/03/23 18:59 06:59 18:59 Intake Total 2285 340 10 Output Total 1000 Balance 2285 -660 10 Intake: IV 30 10 Invasive Line 4 10 10 Invasive Line 5 20 Intake, IV Titration 2034 Amount Magnesium Sulfate-D5w Pmx 200 1 gm In Dextrose/Water 1 100ml.bag @ 100 mls/hr IVPB Q1H [facility] Rx#: [id number] Mvi, Adult No.4 with Vit 1635 K 10 ml Trace (Conc-1Ml/ Dose) 1 ml Sodium Chloride 4Meq/ml Vial 80 meq Sodium Acetate 20 meq Potassium Acetate 30 meq Calcium Gluconate 1 gm Magnesium Sulfate gm 2.5 gm Potassium Phosphate 12 mmol In Amino Acids 5 %/ Dextrose 20 % 1,000 ml @ 70 mls/hr IV .BY DURATION [facility] Rx#:[id number] Sodium Chloride 0.9% 1, 200 000 ml @ 50 mls/hr IV . Q20H [facility] Rx#:[id number] Oral 250 Blood Product 0 310 Rc As-1 Unit 0 310 [id number] Output: Urine 1000 Other: Voiding Method Urinal # Voids 4 1 # Bowel Movements 1 - Exam GENERAL DESCRIPTION: Middle-age male up in the chair in no distress RESPIRATORY SYSTEM: Unlabored breathing , decreased breath sounds at bases HEART: S1 S2 regular rate and rhythm , ABDOMEN: Soft , mild distention and tenderness EXTREMITIES: No edema feet - Labs CBC & Chem 7: 11/03/23 14:44 11/03/23 14:44 Labs: Abnormal Lab Results - Last 24 Hours (Table) 11/02/23 11/02/23 11/02/23 Range/Units 12:22 13:55 19:40 RBC (4.30-5.90) m/uL Hgb (13.0-17.5) gm/dL Hct (39.0-53.0) % MCV (80.0-100.0) fL MCH (25.0-35.0) pg MCHC (31.0-37.0) g/dL RDW (11.5-15.5) % POC Glucose (mg/dL) 141 H 165 H (70-110) mg/dL C-Reactive Protein (<1.0) mg/dL Procalcitonin (0.02-0.09) ng/mL Crossmatch See Detail 11/02/23 11/02/23 11/02/23 Range/Units 20:35 22:49 22:49 RBC 3.82 L (4.30-5.90) m/uL Hgb 9.2 L (13.0-17.5) gm/dL Hct 30.2 L (39.0-53.0) % MCV 79.0 L (80.0-100.0) fL MCH 24.0 L (25.0-35.0) pg MCHC 30.3 L (31.0-37.0) g/dL RDW 17.7 H (11.5-15.5) % POC Glucose (mg/dL) (70-110) mg/dL C-Reactive Protein 7.8 H (<1.0) mg/dL Procalcitonin 0.67 H (0.02-0.09) ng/mL Crossmatch 11/03/23 11/03/23 Range/Units 00:08 06:12 RBC (4.30-5.90) m/uL Hgb (13.0-17.5) gm/dL Hct (39.0-53.0) % MCV (80.0-100.0) fL MCH (25.0-35.0) pg MCHC (31.0-37.0) g/dL RDW (11.5-15.5) % POC Glucose (mg/dL) 136 H 166 H (70-110) mg/dL C-Reactive Protein (<1.0) mg/dL Procalcitonin (0.02-0.09) ng/mL Crossmatch Assessment and Plan (1) Leukocytosis Current Visit: Yes Status: Acute Code(s): D72.829 - ELEVATED WHITE BLOOD CELL COUNT, UNSPECIFIED SNOMED Code(s): 167877964 (2) Ileus Current Visit: Yes Status: Acute Code(s): K56.7 - ILEUS, UNSPECIFIED SNOMED Code(s): 316086472 (3) MRSA (methicillin resistant staph aureus) culture positive Current Visit: Yes Status: Acute Code(s): Z22.322 - CARRIER OR SUSPECTED CARRIER OF METHICILLIN RESIS STAPH SNOMED Code(s): 544425724 Plan: 1patient presented hospital with sepsis in this patient who did have an elevated white count tachycardia source likely abdominal pain this patient did have predominantly abdominal symptoms with abdominal pain and vomiting CT has been suggestive of ileus/obstruction and will likely need to cover for the enteric gram-negative both aerobes and anaerobes 2- cultures from the [facility] grew MRSA as well as Enterococcus, for the patient received adequate Unasyn and vancomycin therapy 3-patient is status post extensive abdominal surgery did not mention any perforation or abscess no cultures 4- patient did have a new fever on 11/02/2023 question of transfusion reaction versus possibly PICC line related cultures have been obtained results will be followed continue with the vancomycin Dictation was produced using [employer] dictation software. please excuse any grammatical, word or spelling errors. Time with Patient: Less than 30
[2023-11-04 00:10] LABS: Glucose,Whole Blood 138 mg/dL (70-110)
[2023-11-04] MEDS: 1: MVI, ADULT NO.4 WITH VIT K 10 ML, TRACE (CONC-1ML/DOSE) 1 ML, SODIUM CHLORIDE 4MEQ/ML IV SCH (05:56)
[2023-11-04 06:43] LABS: Glucose,Whole Blood 148 mg/dL (70-110)
--- NOTE | 2023-11-04 08:18 | FL ---
EXAMINATION TYPE: FL small bowel follow through DATE OF EXAM: 11/03/2023 CLINICAL HISTORY: Abdominal pain TECHNIQUE: A single contrast small bowel follow through is performed utilizing Gastrografin. COMPARISON: None FINDINGS: Medical Lead image of the abdomen shows markedly dilated small bowel loops with surgical laurence. . The small bowel study shows abnormal transit time through the small bowel. Contrast remains within th e small bowel at 5.5 hours. No definitive transition point. There is marked distention of small latonia l suspicious for high-grade severe obstruction or severe ileus.. IMPRESSION: 1. Markedly delayed transit time with the colon not seen at 5.5 hours. Correlate for severe obstructi on or ileus.
[2023-11-04 09:32] LABS: ALT 19 U/L (4-49); AST 24 U/L (17-59); African American GFR (CKD) >90 (>60 ml/min/1.73 sqM); Albumin 2.2 g/dL (3.5-5.0); Alkaline Phosphatase 190 U/L (38-126); Anion Gap 7 mmol/L; Blood Urea Nitrogen 18 mg/dL (9-20); Calcium 7.6 mg/dL (8.4-10.2); Carbon Dioxide 20 mmol/L (22-30); Chloride 109 mmol/L (98-107); Glucose 144 mg/dL (74-99); Non-African American GFR(CKD) >90 (>60 ml/min/1.73 sqM); Phosphorus 3.4 mg/dL (2.5-4.5); Potassium 3.9 mmol/L (3.5-5.1); Sodium 136 mmol/L (137-145); Total Bilirubin 0.2 mg/dL (0.2-1.3); Total Protein 5.1 g/dL (6.3-8.2)
[2023-11-04 09:37] LABS: Glucose,Whole Blood 164 mg/dL (70-110)
[2023-11-04 11:06] LABS: Anisocytosis Slight; HCT 27.6 % (39.0-53.0); HGB 8.1 gm/dL (13.0-17.5); Hypochromasia Moderate; MCH 22.9 pg (25.0-35.0); MCHC 29.4 g/dL (31.0-37.0); Mean Platelet Volume 7.5; Microcytosis Slight; Platelet Count 344 k/uL (150-450); RBC 3.54 m/uL (4.30-5.90); RDW 18.2 % (11.5-15.5); WBC 6.6 k/uL (3.8-10.6)
[2023-11-04 11:35] LABS: Glucose,Whole Blood 131 mg/dL (70-110)
--- NOTE | 2023-11-04 12:04 | XR ---
EXAMINATION TYPE: XR abdomen 1V DATE OF EXAM: 11/04/2023 COMPARISON: 11/03/2023 HISTORY: Nausea and vomiting TECHNIQUE: One view abdominal series FINDINGS: Single view demonstrates surgical laurence. Contrast is now seen to have passed into the colon. Marked ly dilated bowel loops are noted. Osseous structures stable. Limited assessment for free air. IMPRESSION: 1. Contrast is now passed into the colon. Findings remain suspicious for either severe ileus or parti al obstruction.
--- NOTE | 2023-11-04 14:20 | P.PN ---
Subjective Progress Note Date: 11/04/23 Principal diagnosis: Reason for follow-up is fever/ileus/obstruction Patient is a 43-year-old -[place] male past medical history significant for right-sided jaw cancer for the patient be treated with chemoradiation therapy, patient also have a history of alcohol abuse possible acute and chronic pancreatitis patient recently did have a prolonged hospital stay for bowel obstruction and this patient who did have a perforated small bowel and status post resection on 09/06/2023 did have prolonged ileus, now presenting back to the hospital abdominal pain and vomiting has been diagnosed with ileus/obstruction.Patient is status post open expiratory laparotomy with lysis o f adhesion excision of small bowel tumor x 3 closure of decompressive enterostomy and drainage of abdominal ascites completed on 10/16/2023. On today's evaluation that is 11/04/2023,the patient did have improvement in his fever pattern last temperature has been 100 F at midnight no fever since then patient mention feeling slightly better abdominal pain about the same no nausea vomiting and having bowel movement no chest pain shortness of breath or cough. Patient white count is 6.6, creatinine 0.63 Objective - Vital Signs Vital signs: Vital Signs Temp 98 F 11/04/23 12:00 Pulse 109 H 11/04/23 12:00 Resp 16 11/04/23 12:00 BP 139/92 11/04/23 12:00 Pulse Ox 97 11/04/23 12:00 FiO2 Intake & Output 11/03/23 11/04/23 11/04/23 18:59 06:59 18:59 Intake Total 1079 120 Output Total 250 150 450 Balance 829 -150 -330 Weight 48.79 kg 47.3 kg Intake: IV 10 Invasive Line 4 10 Intake, IV Titration 1069 Amount Sodium Chloride 4Meq/ml 1069 Vial 100 meq Sodium Acetate 20 meq Potassium Acetate 30 meq Calcium Gluconate 1 gm Magnesium Sulfate gm 2.5 gm Potassium Phosphate 12 mmol In Amino Acids 5 %/ Dextrose 20 % 1,000 ml @ 70 mls/hr IV .[facility] Rx#:[id number] Oral 120 Output: Urine 250 100 450 Emesis 50 Other: Voiding Method Urinal Urinal # Voids 1 # Bowel Movements 1 1 - Exam GENERAL DESCRIPTION: Middle-age male up in the chair in no distress RESPIRATORY SYSTEM: Unlabored breathing , decreased breath sounds at bases HEART: S1 S2 regular rate and rhythm , ABDOMEN: Soft , mild distention and tenderness EXTREMITIES: No edema feet - Labs CBC & Chem 7: 11/04/23 09:19 11/04/23 07:31 Labs: Abnormal Lab Results - Last 24 Hours (Table) 10/31/23 11/03/23 11/03/23 Range/Units 00:13 13:30 14:44 RBC 3.89 L (4.30-5.90) m/uL Hgb 9.2 L (13.0-17.5) gm/dL Hct 30.3 L (39.0-53.0) % MCV 77.9 L (80.0-100.0) fL MCH 23.5 L (25.0-35.0) pg MCHC 30.2 L (31.0-37.0) g/dL RDW 18.1 H (11.5-15.5) % Sodium (137-145) mmol/L Chloride (98-107) mmol/L Carbon Dioxide (22-30) mmol/L Creatinine (0.66-1.25) mg/dL Glucose (74-99) mg/dL POC Glucose (mg/dL) 164 H 142 H (70-110) mg/dL Calcium (8.4-10.2) mg/dL Alkaline Phosphatase (38-126) U/L Total Protein (6.3-8.2) g/dL Albumin (3.5-5.0) g/dL 11/03/23 11/03/23 11/04/23 Range/Units 14:44 17:52 00:08 RBC (4.30-5.90) m/uL Hgb (13.0-17.5) gm/dL Hct (39.0-53.0) % MCV (80.0-100.0) fL MCH (25.0-35.0) pg MCHC (31.0-37.0) g/dL RDW (11.5-15.5) % Sodium 136 L (137-145) mmol/L Chloride 108 H (98-107) mmol/L Carbon Dioxide 17 L (22-30) mmol/L Creatinine 0.63 L (0.66-1.25) mg/dL Glucose 143 H (74-99) mg/dL POC Glucose (mg/dL) 181 H 138 H (70-110) mg/dL Calcium 7.7 L (8.4-10.2) mg/dL Alkaline Phosphatase 199 H (38-126) U/L Total Protein 5.3 L (6.3-8.2) g/dL Albumin 2.3 L (3.5-5.0) g/dL 11/04/23 11/04/23 11/04/23 Range/Units 06:36 07:31 09:19 RBC 3.54 L (4.30-5.90) m/uL Hgb 8.1 L (13.0-17.5) gm/dL Hct 27.6 L (39.0-53.0) % MCV 78.0 L (80.0-100.0) fL MCH 22.9 L (25.0-35.0) pg MCHC 29.4 L (31.0-37.0) g/dL RDW 18.2 H (11.5-15.5) % Sodium 136 L (137-145) mmol/L Chloride 109 H (98-107) mmol/L Carbon Dioxide 20 L (22-30) mmol/L Creatinine 0.63 L (0.66-1.25) mg/dL Glucose 144 H (74-99) mg/dL POC Glucose (mg/dL) 148 H (70-110) mg/dL Calcium 7.6 L (8.4-10.2) mg/dL Alkaline Phosphatase 190 H (38-126) U/L Total Protein 5.1 L (6.3-8.2) g/dL Albumin 2.2 L (3.5-5.0) g/dL 11/04/23 Range/Units 11:32 RBC (4.30-5.90) m/uL Hgb (13.0-17.5) gm/dL Hct (39.0-53.0) % MCV (80.0-100.0) fL MCH (25.0-35.0) pg MCHC (31.0-37.0) g/dL RDW (11.5-15.5) % Sodium (137-145) mmol/L Chloride (98-107) mmol/L Carbon Dioxide (22-30) mmol/L Creatinine (0.66-1.25) mg/dL Glucose (74-99) mg/dL POC Glucose (mg/dL) 131 H (70-110) mg/dL Calcium (8.4-10.2) mg/dL Alkaline Phosphatase (38-126) U/L Total Protein (6.3-8.2) g/dL Albumin (3.5-5.0) g/dL Microbiology - Last 24 Hours (Table) 11/02/23 22:49 Blood Culture - Preliminary Blood Assessment and Plan (1) Leukocytosis Current Visit: Yes Status: Acute Code(s): D72.829 - ELEVATED WHITE BLOOD CELL COUNT, UNSPECIFIED SNOMED Code(s): 933904761 (2) Ileus Current Visit: Yes Status: Acute Code(s): K56.7 - ILEUS, UNSPECIFIED SNOMED Code(s): 031098588 (3) MRSA (methicillin resistant staph aureus) culture positive Current Visit: Yes Status: Acute Code(s): Z22.322 - CARRIER OR SUSPECTED CARRIER OF METHICILLIN RESIS STAPH SNOMED Code(s): 064037272 Plan: 1patient presented hospital with sepsis in this patient who did have an elevated white count tachycardia source likely abdominal pain this patient did have predominantly abdominal symptoms with abdominal pain and vomiting CT has been suggestive of ileus/obstruction and will likely need to cover for the enteric gram-negative both aerobes and anaerobes 2- cultures from the [facility] grew MRSA as well as Enterococcus, for the patient received adequate Unasyn and vancomycin therapy 3-patient is status post extensive abdominal surgery did not mention any perforation or abscess no cultures 4- patient did have a new fever on 11/02/2023 question of transfusion reaction versus possibly PICC line related cultures have been obtained which are currently pending the patient did have improvement in his fever pattern continue with the vancomycin while waiting for the culture to finalize Dictation was produced using [facility] software. please excuse any grammatical, word or spelling errors.
--- NOTE | 2023-11-04 15:10 | P.PN ---
Subjective Progress Note Date: 11/04/23 Hospital course: Patient is a 43-year-old male with a past medical history of chronic pancreatitis, alcoholism, history of a pulmonary emboli, right-sided jaw cancer status post chemo/radiation treatment, GERD with erosive esophagitis, gastritis, and recent hospitalization from 09/04/2023 through 09/18/2023 for small bowel obstruction status post perforation resulting in emergent small bowel resection with [id number] duodenojejunostomy 09/06/2023 complicated by post operative ileus. He completed multiple days of IV antibiotics and discharged home on PO Augmentin and DEBORA drain. He presented to the emergency department on 10/09/2023 with a chief complaint of increased abdominal pain, abdominal distention and multiple episodes of bilious vomiting. Upon arrival in the emergency department, patient underwent full evaluation. Vital signs upon arrival showed BP 145/95, HR 101, RR 18, T 90 7.8F, 100% on RA. Labs were completed and revie wed CBC showed WBC count 18.5, hemoglobin 10.6, hematocrit 33.2, MCV 79, platelet 634. CMP showed sodium 134, bicarb 20, creatinine 0.48, glucose 167, albumin 2.9. Lipase 473. Lactic acid 1.4. CT abdomen and pelvis was completed revealing diffuse SB dilation with bowel containing gas, feces, and fluid suspicious for ileus versus small bowel obstruction, drainage catheter in place, and chronic pancreatitis changes. Patient reported having bowel movements despite abdominal distention and worsening pain. Patient was admitted to general surgery team and [facility] was consulted for medical management of this patient throughout hospitalization. DEBORA drain cultures positive for MRSA. Patient failed conservative management of small bowel obstruction and was taken for open laparotomy with lysis of adhesions and resection of small bowel tumor with wound VAC placement on 10/16/2023. Pathology sample was sent to lab for analysis and per pathology report, negative for histopathologic changes and negative for malignancy. Patient with postoperative ileus resulting in nausea and vomiting and reinsertion of NG tube on 10/26/2023 and again removal of NG tube on 10/29/2023. On the evening of 11/02/2023 patient was receiving blood transfusion and spiked an elevated temp as high as 101.6 F and tachycardia with heart rate 130s. Blood cultures were obtained and patient was started back on IV antibiotics with vancomycin and transferred to [facility] for closer monitoring. On 11/03/2023 patient continued to have incontinent stools and underwent a fluoroscopic small bowel follow-through again revealing severe obstruction versus ileus. Physical exam: Patient seen and fully evaluated at bedside this morning. He was resting in bed and appears slightly agitated and discouraged. Patient stating that this hospitalization is worse than being in correction and he is tired of not eating. Updated patient on results concerning for recurrent obstruction versus ileus. Vital signs reviewed and stable. General: Nontoxic, no acute distress and appears older than stated age. Thin and frail. Derm: Skin warm and dry, normal coloration for ethnicity. Head: Atraumatic, normocephalic and symmetric. Eyes: EOMs intact, no lid lag, and anicteric sclera Mouth: no lip lesions, mucus membranes moist Cardiovascular: regular rate and rhythm with normal S1S2, no murmur, positive posterior tibial pulses bilaterally, and cap refill < 2 seconds. Lungs: Respirations even, regular, and unlabored on room air. Lungs CTA bilaterally, no rhonchi, no rales, no wheezing, and no accessory muscle usage. Abdominal: Abdomen distended. Postsurgical incision midline with dressing clean, dry, and intact. Abdominal binder in place. Ext: ROM intact. No gross muscle atrophy, no edema, no contractures. Neuro: Speech clear, face symmetrical and CN II-XII grossly intact with no noted focal neuro deficits Psych: Alert and oriented to person, place, time, and situation. Appropriate and pleasant affect. Assessment and Plan of Care: Sinus tachycardia -Cardiology reconsulted secondary to persistent episodes of sinus tachycardia with heart rate up to 140s. Discussed case with Dr. Sena. -Bilateral lower extremity venous Dopplers were completed negative for DVTs. -Echocardiogram completed revealing a preserved EF of 60 to 65% with small pericardial effusion without tamponade physiology. -Continue Metoprolol 50 mg daily discontinued and patient started on metoprolol 50 mg twice daily. Recurrent postoperative ileus Recurrent small bowel obstruction requiring open laparotomy with lysis of adhesions and resection of small bowel tumor on 10/16/2023 Retroperitoneal mass History of GERD with erosive esophagitis History of gastritis Elevated lipase with history of chronic pancreatitis Severe protein calorie malnutrition with BMI of 16.9 kg/m -General surgery following, took patient for open laparotomy with lysis of adhesions and resection of small bowel tumor with wound VAC placement on 10/16/2023 -Symptomatic care and pain management. Zofran 4 mg IVP every 8 hours as needed for nausea and/or vomiting -General surgery placing order for fluoroscopic small bowel follow-through to be completed. -Continue Reglan 10 mg IVP every 6 hours scheduled for persistent nausea and to increase bowel motility. -Continue Protonix 40 mg IVP daily -Dietitian following managing TPN and lipids. -Pathology sample was sent to lab for analysis and per pathology report, negative for histopathologic changes and negative for malignancy. MRSA infection, completed treatment -DEBORA drain site culture was positive for MRSA and group D enterococcus faecalis. -Infectious disease following, discussed plan of care. Patient completed extended antibiotic course with Unasyn and vancomycin for treatment of MRSA infection. -Blood cultures showed no growth. Acute blood loss anemia on anemia of chronic disease. Hemoglobin 8.1. Will continue to monitor and transfuse if needed for hemoglobin less than 7. Iron profile resulting showing total iron of 17, TIBC of 171, iron percentage 9.94, transferrin of 122, and ferritin of 366. Patient completed the day course of IV Ferrlecit 125 mg daily and started on ferrous sulfate 325 mg daily. Pyrexia isolated event during blood transfusion, possibly secondary to blood transfusion reaction vs infectious process -Transfusion was stopped and tubing/bag sent to blood bank for analysis. -Infectious process also being ruled out, blood cultures drawn and patient started on IV antibiotics with vancomycin per infectious disease. Hypokalemia, resolved and pt is on TPN/Lipids Hypomagnesemia, resolved and pt is on TPN/Lipids Thrombocytosis. Resolved. Platelet count 430. Likely was reactive secondary to postoperative ileus. History of small bowel perforation status post emergent small bowel resection with [id number] duodenojejunostomy 09/06/2023 Pressure ulcer to coccyx present on arrival, worsening. Consult placed to wound care for management. Data and imaging reviewed: Vital signs reviewed. Blood pressure 135/91, heart rate 118, temp 96.8 F, respiratory rate 16 and SpO2 of 96% on room air. Morning labs reviewed.. CBC showing WBC count of 6.6, hemoglobin of 8.1, platelet count of 344. BMP showing sodium 136, potassium 3.9, chloride 109, bicarb 20, anion gap 7, and renal function remains unremarkable. Magnesium 2.0. Reviewed fluoroscopic small bowel follow-through report stating severe obstruction versus ileus. CODE STATUS: FULL CODE DVT Prophylaxis: Lovenox SQ GI Prophylaxis: Protonix Thank you for allowing us to participate in the care of this pleasant patient. Do not hesitate to contact us with questions. Someone can be reached from the [facility] hospitalist group all hours of the day at [phone] or via perfect serve. Patient was seen independently by Nurse Pracitioner. This document was prepared using [employer] dictation software. Please allow for errors in winding operator, while rare they do occur. Edin Davalos NP rendered care for this patient independently, reviewed the findings and plan as documented in the note above. I did not physically speak with or examine the patient on this date. Objective - Vital Signs Vital signs: Vital Signs Temp 98.8 F 11/04/23 04:00 Pulse 120 H 11/04/23 04:00 Resp 16 11/04/23 04:00 BP 136/89 11/04/23 04:00 Pulse Ox 95 11/04/23 04:00 FiO2 Intake & Output 11/03/23 11/04/23 11/04/23 18:59 06:59 18:59 Intake Total 1079 Output Total 250 150 Balance 829 -150 Weight 48.79 kg 47.3 kg Intake: IV 10 Invasive Line 4 10 Intake, IV Titration 1069 Amount Sodium Chloride 4Meq/ml 1069 Vial 100 meq Sodium Acetate 20 meq Potassium Acetate 30 meq Calcium Gluconate 1 gm Magnesium Sulfate gm 2.5 gm Potassium Phosphate 12 mmol In Amino Acids 5 %/ Dextrose 20 % 1,000 ml @ 70 mls/hr IV .BY DURATION [facility] Rx#:[id number] Output: Urine 250 100 Emesis 50 Other: Voiding Method Urinal # Voids 1 # Bowel Movements 1 - Labs CBC & Chem 7: 11/04/23 09:19 11/04/23 07:31 Labs: Abnormal Lab Results - Last 24 Hours (Table) 11/02/23 11/03/23 11/03/23 Range/Units 22:49 13:30 14:44 RBC 3.89 L (4.30-5.90) m/uL Hgb 9.2 L (13.0-17.5) gm/dL Hct 30.3 L (39.0-53.0) % MCV 77.9 L (80.0-100.0) fL MCH 23.5 L (25.0-35.0) pg MCHC 30.2 L (31.0-37.0) g/dL RDW 18.1 H (11.5-15.5) % Sodium (137-145) mmol/L Chloride (98-107) mmol/L Carbon Dioxide (22-30) mmol/L Creatinine (0.66-1.25) mg/dL Glucose (74-99) mg/dL POC Glucose (mg/dL) 142 H (70-110) mg/dL Calcium (8.4-10.2) mg/dL Alkaline Phosphatase (38-126) U/L Total Protein (6.3-8.2) g/dL Albumin (3.5-5.0) g/dL Procalcitonin 0.67 H (0.02-0.09) ng/mL 11/03/23 11/03/23 11/04/23 Range/Units 14:44 17:52 00:08 RBC (4.30-5.90) m/uL Hgb (13.0-17.5) gm/dL Hct (39.0-53.0) % MCV (80.0-100.0) fL MCH (25.0-35.0) pg MCHC (31.0-37.0) g/dL RDW (11.5-15.5) % Sodium 136 L (137-145) mmol/L Chloride 108 H (98-107) mmol/L Carbon Dioxide 17 L (22-30) mmol/L Creatinine 0.63 L (0.66-1.25) mg/dL Glucose 143 H (74-99) mg/dL POC Glucose (mg/dL) 181 H 138 H (70-110) mg/dL Calcium 7.7 L (8.4-10.2) mg/dL Alkaline Phosphatase 199 H (38-126) U/L Total Protein 5.3 L (6.3-8.2) g/dL Albumin 2.3 L (3.5-5.0) g/dL Procalcitonin (0.02-0.09) ng/mL 11/04/23 Range/Units 06:36 RBC (4.30-5.90) m/uL Hgb (13.0-17.5) gm/dL Hct (39.0-53.0) % MCV (80.0-100.0) fL MCH (25.0-35.0) pg MCHC (31.0-37.0) g/dL RDW (11.5-15.5) % Sodium (137-145) mmol/L Chloride (98-107) mmol/L Carbon Dioxide (22-30) mmol/L Creatinine (0.66-1.25) mg/dL Glucose (74-99) mg/dL POC Glucose (mg/dL) 148 H (70-110) mg/dL Calcium (8.4-10.2) mg/dL Alkaline Phosphatase (38-126) U/L Total Protein (6.3-8.2) g/dL Albumin (3.5-5.0) g/dL Procalcitonin (0.02-0.09) ng/mL
--- NOTE | 2023-11-04 15:57 | P.PN ---
Subjective Progress Note Date: 11/04/23 CHIEF COMPLAINT: Recurrent small bowel obstruction HISTORY OF PRESENT ILLNESS: Patient is status post open exploratory laparotomy with lysis of adhesions, excision of small bowel tumor x 3 closure of decom pressive enterostomy, drainage of abdominal ascites and partial omentectomy on 10/16/23. Small bowel follow-through x-ray reports markedly delayed transit time with the colon. Correlate for severe obstruction or ileus. Abdominal x-ray from this morning contrast is now passed into the colon. Findings remain suspicious for either severe ileus or partial obstruction. Patient does report having diarrhea. Does complain of abdominal pain. Abdomen distended. Did have a low-grade temp of 100 last night. Remains tachycardic. Patient followed by infectious disease. Concerns for possible transfusion reaction versus possible PICC line infection. PHYSICAL EXAM: VITAL SIGNS: Reviewed GENERAL: Well-developed in no acute distress. HEENT: No sclera icterus. Extraocular movements grossly intact. Moist buccal mucosa. Head is atraumatic, normocephalic. Hears conversational speech. No nasal drainage. NECK: Supple without lymphadenopathy. CHEST: Non-labored respirations and equal bilateral excursions. CARDIOVASCULAR: Palpable 2+ radial pulses. ABDOMEN: Soft. Distended. Mild tenderness at incision site. Incisional dressing clean dry and intact MUSCULOSKELETAL: No clubbing or cyanosis. NEUROLOGIC: No focal or lateralizing signs. Cranial nerves II through XII grossly intact. PSYCH: Appropriate affect. Alert and oriented to person, place and time. SKIN: Well perfused. Good skin turgor. ASSESSMENT: 1. Small bowel obstruction 2. History of perforated small bowel 3. Severe protein malnutrition 4. Chronic constipation 5. Dehydration 6. Prior history of tracheostomy and mandibular cancer 7. History of marijuana use. 8. Expected ileus 9. Hypomagnesia 10. Iron deficiency anemia 11. Underweight, BMI 16.5 12. Supraventricular tachycardia 13. MRSA DEBORA drain fluid 14. Possible pneumonia PLAN: -Small bowel follow-through results reviewed with Dr. Easton. Will advance diet to clear liquids -Continue TPN for nutrition support -Discussed case with medicine service. Okay to start Relistor -Encourage patient ambulate -Continue lactulose or bowel regimen -Continue Reglan -Continue antibiotics per ID -DVT prophylaxis Heparin Physician Chimney [employer] Brick note has been reviewed by physician. Signing provider agrees with the documented findings, assessment, and plan of care. Objective - Vital Signs Vital signs: Vital Signs Temp 98 F 11/04/23 12:00 Pulse 109 H 11/04/23 12:00 Resp 16 11/04/23 12:00 BP 139/92 11/04/23 12:00 Pulse Ox 97 11/04/23 12:00 FiO2 Intake & Output 11/03/23 11/04/23 11/04/23 18:59 06:59 18:59 Intake Total 1079 120 Output Total 250 150 450 Balance 829 -150 -330 Weight 48.79 kg 47.3 kg 47.3 kg Intake: IV 10 Invasive Line 4 10 Intake, IV Titration 1069 Amount Sodium Chloride 4Meq/ml 1069 Vial 100 meq Sodium Acetate 20 meq Potassium Acetate 30 meq Calcium Gluconate 1 gm Magnesium Sulfate gm 2.5 gm Potassium Phosphate 12 mmol In Amino Acids 5 %/ Dextrose 20 % 1,000 ml @ 70 mls/hr IV .BY DURATION [facility] Rx#:[id number] Oral 120 Output: Urine 250 100 450 Emesis 50 Other: Voiding Method Urinal Urinal # Voids 1 # Bowel Movements 1 1 - Labs CBC & Chem 7: 11/04/23 09:19 11/04/23 07:31 Labs: Abnormal Lab Results - Last 24 Hours (Table) 10/31/23 11/03/23 11/03/23 Range/Units 00:13 14:44 17:52 RBC (4.30-5.90) m/uL Hgb (13.0-17.5) gm/dL Hct (39.0-53.0) % MCV (80.0-100.0) fL MCH (25.0-35.0) pg MCHC (31.0-37.0) g/dL RDW (11.5-15.5) % Sodium 136 L (137-145) mmol/L Chloride 108 H (98-107) mmol/L Carbon Dioxide 17 L (22-30) mmol/L Creatinine 0.63 L (0.66-1.25) mg/dL Glucose 143 H (74-99) mg/dL POC Glucose (mg/dL) 164 H 181 H (70-110) mg/dL Calcium 7.7 L (8.4-10.2) mg/dL Alkaline Phosphatase 199 H (38-126) U/L Total Protein 5.3 L (6.3-8.2) g/dL Albumin 2.3 L (3.5-5.0) g/dL 11/04/23 11/04/23 11/04/23 Range/Units 00:08 06:36 07:31 RBC (4.30-5.90) m/uL Hgb (13.0-17.5) gm/dL Hct (39.0-53.0) % MCV (80.0-100.0) fL MCH (25.0-35.0) pg MCHC (31.0-37.0) g/dL RDW (11.5-15.5) % Sodium 136 L (137-145) mmol/L Chloride 109 H (98-107) mmol/L Carbon Dioxide 20 L (22-30) mmol/L Creatinine 0.63 L (0.66-1.25) mg/dL Glucose 144 H (74-99) mg/dL POC Glucose (mg/dL) 138 H 148 H (70-110) mg/dL Calcium 7.6 L (8.4-10.2) mg/dL Alkaline Phosphatase 190 H (38-126) U/L Total Protein 5.1 L (6.3-8.2) g/dL Albumin 2.2 L (3.5-5.0) g/dL 11/04/23 11/04/23 Range/Units 09:19 11:32 RBC 3.54 L (4.30-5.90) m/uL Hgb 8.1 L (13.0-17.5) gm/dL Hct 27.6 L (39.0-53.0) % MCV 78.0 L (80.0-100.0) fL MCH 22.9 L (25.0-35.0) pg MCHC 29.4 L (31.0-37.0) g/dL RDW 18.2 H (11.5-15.5) % Sodium (137-145) mmol/L Chloride (98-107) mmol/L Carbon Dioxide (22-30) mmol/L Creatinine (0.66-1.25) mg/dL Glucose (74-99) mg/dL POC Glucose (mg/dL) 131 H (70-110) mg/dL Calcium (8.4-10.2) mg/dL Alkaline Phosphatase (38-126) U/L Total Protein (6.3-8.2) g/dL Albumin (3.5-5.0) g/dL Microbiology - Last 24 Hours (Table) 11/03/23 09:37 Blood Culture Gram Stain - Preliminary Blood Blood Culture - Preliminary Molecular ID 11/02/23 22:49 Blood Culture - Preliminary Blood
[2023-11-04] MEDS: FLUCONAZOLE IN NACL,ISO-OSM 400 MG in SALINE 1 200ML.BAG IVPB SCH (17:21)
[2023-11-04] MEDS: METHYLNALTREXONE BROMIDE 12 MG/0.6 ML VIAL SQ SCH (17:21)
[2023-11-04 17:58] LABS: Glucose,Whole Blood 127 mg/dL (70-110)
[2023-11-05 00:47] LABS: Glucose,Whole Blood 159 mg/dL (70-110)
[2023-11-05 06:13] LABS: Glucose,Whole Blood 171 mg/dL (70-110)
--- NOTE | 2023-11-05 07:47 | XR ---
EXAMINATION TYPE: XR abdomen 1V DATE OF EXAM: 11/05/2023 COMPARISON: 11/03/2009 HISTORY: Abdominal pain TECHNIQUE: One view abdominal series FINDINGS: Single view demonstrates surgical laurence. Residual contrast within some small bowel loops and right colon, rectum. Calcifications along the paraspinal lines stable.. Markedly dilated bowel loops are no vandana. Osseous structures stable. Limited assessment for free air. IMPRESSION: 1. No significant interval change in marked dilation of the bowel. Differential diagnosis remains sev ere ileus versus obstruction.
[2023-11-05 09:37] LABS: Ionized Calcium 4.6 mg/dL (4.5-5.3)
[2023-11-05 09:53] LABS: ALT 19 U/L (4-49); AST 22 U/L (17-59); African American GFR (CKD) >90 (>60 ml/min/1.73 sqM); Albumin 2.5 g/dL (3.5-5.0); Alkaline Phosphatase 237 U/L (38-126); Anion Gap 9 mmol/L; Blood Urea Nitrogen 13 mg/dL (9-20); Carbon Dioxide 20 mmol/L (22-30); Chloride 101 mmol/L (98-107); Glucose 132 mg/dL (74-99); Magnesium 1.8 mg/dL (1.6-2.3); Non-African American GFR(CKD) >90 (>60 ml/min/1.73 sqM); Phosphorus 3.6 mg/dL (2.5-4.5); Potassium 4.2 mmol/L (3.5-5.1); Sodium 130 mmol/L (137-145); Total Bilirubin 0.2 mg/dL (0.2-1.3); Total Protein 5.6 g/dL (6.3-8.2)
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
[2023-11-05 12:13] LABS: Glucose,Whole Blood 157 mg/dL (70-110)
--- NOTE | 2023-11-05 12:48 | P.PN ---
Subjective Progress Note Date: 11/05/23 CHIEF COMPLAINT: Recurrent small bowel obstruction HISTORY OF PRESENT ILLNESS: Patient is status post open exploratory laparotomy with lysis of adhesions, excision of small bowel tumor x 3 closure of decom pressive enterostomy, drainage of abdominal ascites and partial omentectomy on 10/16/23. Patient continues to complain of abdominal pain. He did have 3 liquidy/solid stools yesterday. He denies any nausea or vomiting. His abdomen remains distended. He he reports no appetite. Afebrile. Tachycardic. Sodium 130 potassium 4.2 creatinine 0.54 abdominal x-ray from today reports no significant interval change and marked dilation of the bowel. Diagnosis remains severe ileus versus obstruction. PHYSICAL EXAM: VITAL SIGNS: Reviewed GENERAL: Well-developed in no acute distress. HEENT: No sclera icterus. Extraocular movements grossly intact. Moist buccal mucosa. Head is atraumatic, normocephalic. Hears conversational speech. No nasal drainage. NECK: Supple without lymphadenopathy. CHEST: Non-labored respirations and equal bilateral excursions. CARDIOVASCULAR: Palpable 2+ radial pulses. ABDOMEN: Soft. Distended. Mild tenderness at incision site. Incisional dressing clean dry and intact MUSCULOSKELETAL: No clubbing or cyanosis. NEUROLOGIC: No focal or lateralizing signs. Cranial nerves II through XII grossly intact. PSYCH: Appropriate affect. Alert and oriented to person, place and time. SKIN: Stage II coccyx ulcer ASSESSMENT: 1. Small bowel obstruction 2. History of perforated small bowel 3. Severe protein malnutrition 4. Chronic constipation 5. Dehydration 6. Prior history of tracheostomy and mandibular cancer 7. History of marijuana use. 8. Expected ileus 9. Hypomagnesia 10. Iron deficiency anemia 11. Underweight, BMI 16.5 12. Supraventricular tachycardia 13. MRSA DEBORA drain fluid 14. Possible pneumonia PLAN: -Continue clear liquid diet. Educated patient to go slowly with diet -Encourage patient to ambulate -Encourage patient to keep pressure off of his coccyx ulcer -Continue TPN for nutrition support -Discussed case with medicine service. Okay to start Relistor -Encourage patient ambulate -Continue lactulose or bowel regimen -Continue Reglan -Continue antibiotics per ID -DVT prophylaxis Heparin Physician Learning Operations Specialist note has been reviewed by physician. Signing provider agrees with the documented findings, assessment, and plan of care. Objective - Vital Signs Vital signs: Vital Signs Temp 98.0 F 04/10/24 12:00 Pulse 105 H 11/05/23 12:00 Resp 15 11/05/23 12:00 BP 126/84 11/05/23 12:00 Pulse Ox 99 11/05/23 12:00 FiO2 Intake & Output 11/04/23 11/05/23 11/05/23 18:59 06:59 18:59 Intake Total 120 1087 Output Total 850 525 400 Balance -730 562 -400 Weight 47.3 kg 46 kg Intake: Intake, IV Titration 1087 Amount Mvi, Adult No.4 with Vit 1087 K 10 ml Trace (Conc-1Ml/ Dose) 1 ml Sodium Chloride 4Meq/ml Vial 48 meq Sodium Acetate 60 meq Potassium Acetate 30 meq Calcium Gluconate 1 gm Magnesium Sulfate gm 2.5 gm Potassium Phosphate 12 mmol In Amino Acids 5 %/ Dextrose 20 % 1,000 ml @ 70 mls/hr IV .BY DURATION [facility] Rx#:[id number] Oral 120 Output: Urine 850 525 400 Other: Voiding Method Urinal Urinal Urinal # Bowel Movements 1 - Labs CBC & Chem 7: 11/04/23 09:19 11/05/23 08:16 Labs: Abnormal Lab Results - Last 24 Hours (Table) 11/04/23 11/05/23 11/05/23 Range/Units 17:56 00:38 06:04 Sodium (137-145) mmol/L Carbon Dioxide (22-30) mmol/L Creatinine (0.66-1.25) mg/dL Glucose (74-99) mg/dL POC Glucose (mg/dL) 127 H 159 H 171 H (70-110) mg/dL Calcium (8.4-10.2) mg/dL Alkaline Phosphatase (38-126) U/L Total Protein (6.3-8.2) g/dL Albumin (3.5-5.0) g/dL 11/05/23 11/05/23 Range/Units 08:16 12:08 Sodium 130 L (137-145) mmol/L Carbon Dioxide 20 L (22-30) mmol/L Creatinine 0.54 L (0.66-1.25) mg/dL Glucose 132 H (74-99) mg/dL POC Glucose (mg/dL) 157 H (70-110) mg/dL Calcium 8.0 L (8.4-10.2) mg/dL Alkaline Phosphatase 237 H (38-126) U/L Total Protein 5.6 L (6.3-8.2) g/dL Albumin 2.5 L (3.5-5.0) g/dL Microbiology - Last 24 Hours (Table) 11/02/23 22:49 Blood Culture Gram Stain - Preliminary Blood Blood Culture - Preliminary 11/03/23 09:37 Blood Culture Gram Stain - Preliminary Blood Blood Culture - Preliminary Molecular ID
--- NOTE | 2023-11-05 14:59 | P.PN ---
Subjective Progress Note Date: 11/05/23 Principal diagnosis: Reason for follow-up is fever/ileus/obstruction Patient is a 43-year-old -[place]ian male past medical history significant for right-sided jaw cancer for the patient be treated with chemoradiation therapy, patient also have a history of alcohol abuse possible acute and chronic pancreatitis patient recently did have a prolonged hospital stay for bowel obstruction and this patient who did have a perforated small bowel and status post resection on 09/06/2023 did have prolonged ileus, now presenting back to the hospital abdominal pain and vomiting has been diagnosed with ileus/obstruction.Patient is status post open expiratory laparotomy with lysis o f adhesion excision of small bowel tumor x 3 closure of decompressive enterostomy and drainage of abdominal ascites completed on 10/16/2023. On today's evaluation that is 11/05/2023,the patient did have resolution of his fever no fever in more than 24 hours, patient is breathing comfortably currently on room air denies any chest pain shortness of breath or cough still complaining of abdominal distention no vomiting no small bowel movement. Patient did have a creatinine 0.54 blood culture positive for Courtney Objective - Vital Signs Vital signs: Vital Signs Temp 98.0 F 11/05/23 12:00 Pulse 105 H 11/05/23 12:00 Resp 15 11/05/23 12:00 BP 126/84 11/05/23 12:00 Pulse Ox 99 11/05/23 12:00 FiO2 Intake & Output 11/04/23 11/05/23 11/05/23 18:59 06:59 18:59 Intake Total 120 1087 240 Output Total 850 525 400 Balance -730 562 -160 Weight 47.3 kg 46 kg Intake: Intake, IV Titration 1087 Amount Mvi, Adult No.4 with Vit 1087 K 10 ml Trace (Conc-1Ml/ Dose) 1 ml Sodium Chloride 4Meq/ml Vial 48 meq Sodium Acetate 60 meq Potassium Acetate 30 meq Calcium Gluconate 1 gm Magnesium Sulfate gm 2.5 gm Potassium Phosphate 12 mmol In Amino Acids 5 %/ Dextrose 20 % 1,000 ml @ 70 mls/hr IV .BY DURATION [facility] Rx#:[id number] Oral 120 240 Output: Urine 850 525 400 Other: Voiding Method Urinal Urinal Urinal # Bowel Movements 1 - Exam GENERAL DESCRIPTION: Middle-age male up in the chair in no distress RESPIRATORY SYSTEM: Unlabored breathing , decreased breath sounds at bases HEART: S1 S2 regular rate and rhythm , ABDOMEN: Soft , mild distention and tenderness EXTREMITIES: No edema feet - Labs CBC & Chem 7: 11/04/23 09:19 11/05/23 08:16 Labs: Abnormal Lab Results - Last 24 Hours (Table) 11/04/23 11/05/23 11/05/23 Range/Units 17:56 00:38 06:04 Sodium (137-145) mmol/L Carbon Dioxide (22-30) mmol/L Creatinine (0.66-1.25) mg/dL Glucose (74-99) mg/dL POC Glucose (mg/dL) 127 H 159 H 171 H (70-110) mg/dL Calcium (8.4-10.2) mg/dL Alkaline Phosphatase (38-126) U/L Total Protein (6.3-8.2) g/dL Albumin (3.5-5.0) g/dL 11/05/23 11/05/23 Range/Units 08:16 12:08 Sodium 130 L (137-145) mmol/L Carbon Dioxide 20 L (22-30) mmol/L Creatinine 0.54 L (0.66-1.25) mg/dL Glucose 132 H (74-99) mg/dL POC Glucose (mg/dL) 157 H (70-110) mg/dL Calcium 8.0 L (8.4-10.2) mg/dL Alkaline Phosphatase 237 H (38-126) U/L Total Protein 5.6 L (6.3-8.2) g/dL Albumin 2.5 L (3.5-5.0) g/dL Microbiology - Last 24 Hours (Table) 11/02/23 22:49 Blood Culture Gram Stain - Preliminary Blood Blood Culture - Preliminary 11/03/23 09:37 Blood Culture Gram Stain - Preliminary Blood Blood Culture - Preliminary Molecular ID Assessment and Plan (1) Leukocytosis Current Visit: Yes Status: Acute Code(s): D72.829 - ELEVATED WHITE BLOOD CELL COUNT, UNSPECIFIED SNOMED Code(s): 462165347 (2) Ileus Current Visit: Yes Status: Acute Code(s): K56.7 - ILEUS, UNSPECIFIED SNOMED Code(s): 088541177 (3) MRSA (methicillin resistant staph aureus) culture positive Current Visit: Yes Status: Acute Code(s): Z22.322 - CARRIER OR SUSPECTED CARRIER OF METHICILLIN RESIS STAPH SNOMED Code(s): 143189179 (4) Candidemia Current Visit: Yes Status: Acute Code(s): B37.7 - CANDIDAL SEPSIS SNOMED Code(s): 972214604 Plan: 1patient presented hospital with sepsis in this patient who did have an elevated white count tachycardia source likely abdominal pain this patient did have predominantly abdominal symptoms with abdominal pain and vomiting CT has been suggestive of ileus/obstruction and will likely need to cover for the enteric gram-negative both aerobes and anaerobes 2- cultures from the DEBORA grew MRSA as well as Enterococcus, for the patient received adequate Unasyn and vancomycin therapy 3-patient is status post extensive abdominal surgery did not mention any perfor ation or abscess no cultures 4- patient did have a new fever on 11/02/2023 and now blood culture positive for Courtney parapsilosis PICC line was discontinued yesterday patient also have a port we will repeat a blood culture from the port and peripherally patient started on Diflucan IV to continue discontinue vancomycin question concern answered Dictation was produced using [employer] dictation software. please excuse any grammatical, word or spelling errors. Time with Patient: Less than 30
--- NOTE | 2023-11-05 15:44 | P.PN ---
Subjective Progress Note Date: 11/05/23 43-year-old male with a past medical history of chronic pancreatitis, alcoholism, history of a pulmonary emboli, right-sided jaw cancer status post chemo/radiation treatment, GERD with erosive esophagitis, gastritis, and recent hospitalization from 09/04/2023 through 09/18/2023 for small bowel obstruction st atus post perforation resulting in emergent small bowel resection with [id number] duodenojejunostomy 09/06/2023 complicated by post operative ileus. He completed multiple days of IV antibiotics and discharged home on PO Augmentin and DEBORA drain. He presented to the emergency department on 10/09/2023 with a chief complaint of increased abdominal pain, abdominal distention and multiple episodes of bilious vomiting. Upon arrival in the emergency department, patient underwent full evaluation. Vital signs upon arrival showed BP 145/95, HR 101, RR 18, T 90 7.8F, 100% on RA. Labs were completed and reviewed CBC showed WBC count 18.5, hemoglobin 10.6, hematocrit 33.2, MCV 79, platelet 634. CMP showed sodium 134, bicarb 20, creatinine 0.48, glucose 167, albumin 2.9. Lipase 473. Lactic acid 1.4. CT abdomen and pelvis was completed revealing diffuse SB dilation with bowel containing gas, feces, and fluid suspicious for ileus versus small bowel obstruction, drainage catheter in place, and chronic pancreatitis changes. Patient reported having bowel movements despite abdominal distention and worsening pain. Patient was admitted to general surgery team and [facility] was consulted for medical management of this patient throughout hospitalization. DEBORA drain cultures positive for MRSA. Patient failed conservative management of small bowel obstruction and was taken for open laparo judd with lysis of adhesions and resection of small bowel tumor with wound VAC placement on 10/16/2023. Pathology sample was sent to lab for analysis and per pathology report, negative for histopathologic changes and negative for malignancy.Patient with postoperative ileus resulting in nausea and vomiting and reinsertion of NG tube on 10/26/2023 and again removal of NG tube on 10/29/2023. On the evening of 11/02/2023 patient was receiving blood transfusion and spiked an elevated temp as high as 101.6 F and tachycardia with heart rate 130s. Blood cultures were obtained and patient was started back on IV antibiotics with vancomycin and transferred to [facility] for closer monitoring. On 11/03/2023 patient continued to have incontinent stools and underwent a fluoroscopic small bowel follow-through again revealing severe obstruction versus ileus. 11/04 Patient was seen and examined. Nutrition include TPN. Antibiotics include Vancomycin (D3) and antifungal Fluconazole (D2). Started on Relistor on 11/03- 11/05. Also on Reglan IV. KUB done yesterday showed contarst now passed into the colon, ileus versus partial obstruction. CMP Na 130, bicarb 20, Cr 0.54, glu 132, Ca 8, alk phos 237, alb 2.5. Mag 1.8. Phos 3.6. General: no distress, appears at stated age Derm: warm, dry Head: atraumatic, normocephalic, symmetric Eyes: EOMI, no lid lag, anicteric sclera Mouth: no lip lesion, mucus membranes moist Cardiovascular: S1S2 tachy, no murmur Lungs: Decreased BS bilateral, no rhonchi, no rales , no accessory muscle use Abdominal: distended, nontender to palpation, postsurgical incision midline with wound VAC and abdominal binder in place Ext: no gross muscle atrophy, no edema, no contractures Neuro: No focal neurologic deficits Psych: Alert and oriented Based on my assessment of this patient, this patient meets a high complexity level of care. Patient has an acute diagnosis of SBO status post open laparotomy with lysis of adhesions and resection of small bowel tumor on 10/16/2023 complicated with recurrent ileus versus SBO and fever that poses a threat to life or bodily function. Pyrexia: Isolated event on 11/01 during blood transfusion. Possibly secondary to blood transfusion reaction vs infectious process. SIRS+. Re-started on Vancomycin dosed per pharmacy on 11/02 and Fluconazole 400 mg IV QD 11/03. Sinus tachycardia: Echo EF 60-65% small pericardial effusion. HR now in the 110s. Venous doppler negative for DVT. Saturating on RA, low probability for PE. Metoprolol 50 mg PO QD. MRSA + Enterococcus infection: Completed course of Unasyn and Vancomycin. Restarted on vancomycin since fever on 11/03. Monitor trough and renal function closely for signs of vancomycin associated renal toxicity. Recurrent postoperative ileus: Reglan 10 mg IVP every 6 hours scheduled for persistent nausea and to increase bowel motility. Relistor x 2 doses started on 11/03. Recurrent small bowel obstruction requiring open laparotomy with lysis of adhesions and resection of small bowel tumor on 10/16/2023 Retroperitoneal mass: Pathology negative for malignancy. History of GERD with erosive esophagitis: Protonix 40 mg IV QD. History of gastritis: Protonix as above. Elevated lipase with history of chronic pancreatitis Severe protein calorie malnutrition with BMI of 16.9 kg/m: Dietitian following managing TPN and lipids. Acute postoperative blood loss anemia on anemia of chronic disease: Status post ferrlecit x 3 days. Status post 1 PRBC 11/01. Transfuse if Hg < 7. Thrombocytosis Resolved: HypoK, HypoMag CODE STATUS: NO CODE. DVT Prophylaxis: Heparin SQ GI Prophylaxis: Protonix 40 mg IVP daily Designated medical POA if patient is not able to make medical decisions for themselves: I have reviewed the following systems security consultant notes: ID, Surgery note. I have reviewed the results of the following tests: CMP, Mag, Phos pending. I have ordered the following tests: CMP, Mag, Phos. I have discussed the care of this patient with the following independent historian: I have independently interpreted the following test below: I have discussed the management of this patient with the following physician: Objective - Vital Signs Vital signs: Vital Signs Temp 98.7 F 11/05/23 04:06 Pulse 116 H 11/05/23 04:06 Resp 16 11/05/23 04:06 BP 137/86 11/05/23 04:06 Pulse Ox 94 L 11/05/23 04:06 FiO2 Intake & Output 11/04/23 11/05/23 11/05/23 18:59 06:59 18:59 Intake Total 120 Output Total 850 525 Balance -730 -525 Weight 47.3 kg 46 kg Intake: Oral 120 Output: Urine 850 525 Other: Voiding Method Urinal Urinal # Bowel Movements 1 - Labs CBC & Chem 7: 11/04/23 09:19 11/05/23 08:16 Labs: Abnormal Lab Results - Last 24 Hours (Table) 10/31/23 11/04/23 11/04/23 Range/Units 00:13 07:31 09:19 RBC 3.54 L (4.30-5.90) m/uL Hgb 8.1 L (13.0-17.5) gm/dL Hct 27.6 L (39.0-53.0) % MCV 78.0 L (80.0-100.0) fL MCH 22.9 L (25.0-35.0) pg MCHC 29.4 L (31.0-37.0) g/dL RDW 18.2 H (11.5-15.5) % Sodium 136 L (137-145) mmol/L Chloride 109 H (98-107) mmol/L Carbon Dioxide 20 L (22-30) mmol/L Creatinine 0.63 L (0.66-1.25) mg/dL Glucose 144 H (74-99) mg/dL POC Glucose (mg/dL) 164 H (70-110) mg/dL Calcium 7.6 L (8.4-10.2) mg/dL Alkaline Phosphatase 190 H (38-126) U/L Total Protein 5.1 L (6.3-8.2) g/dL Albumin 2.2 L (3.5-5.0) g/dL 11/04/23 11/04/23 11/05/23 Range/Units 11:32 17:56 00:38 RBC (4.30-5.90) m/uL Hgb (13.0-17.5) gm/dL Hct (39.0-53.0) % MCV (80.0-100.0) fL MCH (25.0-35.0) pg MCHC (31.0-37.0) g/dL RDW (11.5-15.5) % Sodium (137-145) mmol/L Chloride (98-107) mmol/L Carbon Dioxide (22-30) mmol/L Creatinine (0.66-1.25) mg/dL Glucose (74-99) mg/dL POC Glucose (mg/dL) 131 H 127 H 159 H (70-110) mg/dL Calcium (8.4-10.2) mg/dL Alkaline Phosphatase (38-126) U/L Total Protein (6.3-8.2) g/dL Albumin (3.5-5.0) g/dL 11/05/23 Range/Units 06:04 RBC (4.30-5.90) m/uL Hgb (13.0-17.5) gm/dL Hct (39.0-53.0) % MCV (80.0-100.0) fL MCH (25.0-35.0) pg MCHC (31.0-37.0) g/dL RDW (11.5-15.5) % Sodium (137-145) mmol/L Chloride (98-107) mmol/L Carbon Dioxide (22-30) mmol/L Creatinine (0.66-1.25) mg/dL Glucose (74-99) mg/dL POC Glucose (mg/dL) 171 H (70-110) mg/dL Calcium (8.4-10.2) mg/dL Alkaline Phosphatase (38-126) U/L Total Protein (6.3-8.2) g/dL Albumin (3.5-5.0) g/dL Microbiology - Last 24 Hours (Table) 11/02/23 22:49 Blood Culture Gram Stain - Preliminary Blood Blood Culture - Preliminary 11/03/23 09:37 Blood Culture Gram Stain - Preliminary Blood Blood Culture - Preliminary Molecular ID
[2023-11-05 16:32] LABS: Triglycerides 85.8 mg/dL (0.00-149.00)
[2023-11-05 16:40] LABS: Glucose,Whole Blood 166 mg/dL (70-110)
[2023-11-05] MEDS: VANCOMYCIN TROUGH DUE 1 EACH MISC MISCELLANE ONE (18:17)
[2023-11-06 00:01] LABS: Glucose,Whole Blood 164 mg/dL (70-110)
[2023-11-06 06:13] LABS: Glucose,Whole Blood 147 mg/dL (70-110)
[2023-11-06 10:42] LABS: Anisocytosis Slight; Basophils % (A) 1 %; Eosinophils # (A) 0.1 k/uL (0-0.7); Eosinophils % (A) 1 %; HCT 32.7 % (39.0-53.0); HGB 9.3 gm/dL (13.0-17.5); Hypochromasia Marked; Lymphocytes # (A) 0.8 k/uL (1.0-4.8); Lymphocytes % (A) 11 %; MCH 22.9 pg (25.0-35.0); MCHC 28.6 g/dL (31.0-37.0); MCV 80.2 fL (80.0-100.0); Mean Platelet Volume 7.6; Microcytosis Slight; Monocytes # (A) 0.3 k/uL (0-1.0); Monocytes % (A) 4 %; Neutrophils # (A) 5.3 k/uL (1.3-7.7); Neutrophils % (A) 79 %; Platelet Count 398 k/uL (150-450); RBC 4.08 m/uL (4.30-5.90); RDW 17.7 % (11.5-15.5); WBC 6.6 k/uL (3.8-10.6)
[2023-11-06 11:01] LABS: ALT 16 U/L (4-49); AST 19 U/L (17-59); African American GFR (CKD) >90 (>60 ml/min/1.73 sqM); Albumin 2.5 g/dL (3.5-5.0); Alkaline Phosphatase 212 U/L (38-126); Anion Gap 9 mmol/L; Blood Urea Nitrogen 21 mg/dL (9-20); Calcium 7.9 mg/dL (8.4-10.2); Carbon Dioxide 23 mmol/L (22-30); Chloride 101 mmol/L (98-107); Glucose 147 mg/dL (74-99); Non-African American GFR(CKD) >90 (>60 ml/min/1.73 sqM); Phosphorus 4.4 mg/dL (2.5-4.5); Potassium 4.6 mmol/L (3.5-5.1); Sodium 133 mmol/L (137-145); Total Bilirubin 0.2 mg/dL (0.2-1.3); Total Protein 5.8 g/dL (6.3-8.2)
[2023-11-06 11:20] LABS: C Reactive Protein 15.9 mg/dL (<1.0)
[2023-11-06] MEDS ORDERED: IOPAMIDOL CONTRAST (ORAL USE) VIAL PO PRN (11:23)
--- NOTE | 2023-11-06 11:36 | P.PN ---
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 He completed multiple days of IV antibiotics and discharged home on PO Augmentin and DEBORA drain. He presented to the emergency department on 10/09/2023 with a chief complaint of increased abdominal pain, abdominal distention and multiple episodes of bilious vomiting. Upon arrival in the emergency department, patient underwent full evaluation. Vital signs upon arrival showed BP 145/95, HR 101, RR 18, T 90 7.8F, 100% on RA. Labs were completed and reviewed CBC showed WBC count 18.5, hemoglobin 10.6, hematocrit 33.2, MCV 79, platelet 634. CMP showed sodium 134, bicarb 20, creatinine 0.48, glucose 167, albumin 2.9. Lipase 473. Lactic acid 1.4. CT abdomen and pelvis was completed revealing diffuse SB dilation with bowel containing gas, feces, and fluid suspicious for ileus versus small bowel obstruction, drainage catheter in place, and chronic pancreatitis changes. Patient reported having bowel movements despite abdominal distention and worsening pain. Patient was admitted to general surgery team and [facility] was consulted for medical management of this patient throughout hospitalization. DEBORA drain cultures positive for MRSA. Patient failed conservative management of small bowel obstruction and was taken for open laparo judd with lysis of adhesions and resection of small bowel tumor with wound VAC placement on 10/16/2023. Pathology sample was sent to lab for analysis and per pathology report, negative for histopathologic changes and negative for malignancy.Patient with postoperative ileus resulting in nausea and vomiting and reinsertion of NG tube on 10/26/2023 and again removal of NG tube on 10/29/2023. On the evening of 11/02/2023 patient was receiving blood transfusion and spiked an elevated temp as high as 101.6 F and tachycardia with heart rate 130s. Blood cultures were obtained and patient was started back on IV antibiotics with vancomycin and transferred to [facility] for closer monitoring. On 11/03/2023 patient continued to have incontinent stools and underwent a fluoroscopic small bowel follow-through again revealing severe obstruction versus ileus. 11/04 Patient was seen and examined. Nutrition include TPN. Antibiotics include Vancomycin (D3) and antifungal Fluconazole (D2). Started on Relistor on 11/03- 11/05. Also on Reglan IV. KUB done yesterday showed contarst now passed into the colon, ileus versus partial obstruction. CMP Na 130, bicarb 20, Cr 0.54, glu 132, Ca 8, alk phos 237, alb 2.5. Mag 1.8. Phos 3.6. 11/05 Patient was seen and examined. Tolerating CLD with no N/V. Small BM as well. However, abdomen very distended. Discussed with Corazon, plans for CT AP today. CBC Hg 9.3 Hct 32.7. CMP Na 133, BUN 21, Cr 0.57, glu 147, Ca 7.9, alk phos 212, alb 2.5. CRP 15.9. Mag 2. Phos 4.4. General: no distress, appears at stated age Derm: warm, dry Head: atraumatic, normocephalic, symmetric Eyes: EOMI, no lid lag, anicteric sclera Mouth: no lip lesion, mucus membranes moist Cardiovascular: S1S2 tachy, no murmur Lungs: Decreased BS bilateral, no rhonchi, no rales , no accessory muscle use Abdominal: distended, nontender to palpation, postsurgical incision midline with wound VAC and abdominal binder in place Ext: no gross muscle atrophy, no edema, no contractures Neuro: No focal neurologic deficits Psych: Alert and oriented Based on my assessment of this patient, this patient meets a high complexity level of care. Patient has an acute diagnosis of SBO status post open laparotomy with lysis of adhesions and resection of small bowel tumor on 10/16/2023 complicated with recurrent ileus versus SBO and fever that poses a threat to life or bodily function. Pyrexia: Isolated event on 11/01 during blood transfusion. Possibly secondary to blood transfusion reaction vs infectious process. SIRS+. Re-started on Vancomycin dosed per pharmacy on 11/02 and Fluconazole 400 mg IV QD 11/03. Sinus tachycardia: Echo EF 60-65% small pericardial effusion. HR now in the 110s. Venous doppler negative for DVT. Saturating on RA, low probability for PE. Metoprolol 50 mg PO QD. MRSA + Enterococcus infection: Completed course of Unasyn and Vancomycin. Restarted on vancomycin since fever on 11/03. Monitor trough and renal function closely for signs of vancomycin associated renal toxicity. Recurrent postoperative ileus: Reglan 10 mg IVP every 6 hours scheduled for persistent nausea and to increase bowel motility. Relistor x 2 doses started on 11/03. Recurrent small bowel obstruction requiring open laparotomy with lysis of adhesions and resection of small bowel tumor on 10/16/2023 Retroperitoneal mass: Pathology negative for malignancy. History of GERD with erosive esophagitis: Protonix 40 mg IV QD. History of gastritis: Protonix as above. Elevated lipase with history of chronic pancreatitis Severe protein calorie malnutrition with BMI of 16.9 kg/m: Dietitian following managing TPN and lipids. Acute postoperative blood loss anemia on anemia of chronic disease: Status post ferrlecit x 3 days. Status post 1 PRBC 11/01. Transfuse if Hg < 7. Thrombocytosis Resolved: HypoK, HypoMag CODE STATUS: NO CODE. DVT Prophylaxis: Heparin SQ GI Prophylaxis: Protonix 40 mg IVP daily Designated medical POA if patient is not able to make medical decisions for themselves: I have reviewed the following art consultant notes: ID, Surgery note. I have reviewed the results of the following tests: CBC, CMP, Mag, Phos I have ordered the following tests: CMP, Mag, Phos. I have discussed the care of this patient with the following independent historian: I have independently interpreted the following test below: I have discussed the management of this patient with the following physician: Corazon MENESES as above Objective - Vital Signs Vital signs: Vital Signs Temp 98.4 F 11/06/23 08:00 Pulse 113 H 11/06/23 08:00 Resp 16 11/06/23 08:00 BP 140/96 11/06/23 08:00 Pulse Ox 96 11/06/23 08:00 FiO2 Intake & Output 11/05/23 11/06/23 11/06/23 18:59 06:59 18:59 Intake Total 1556 Output Total 1000 150 Balance 556 -150 Weight 45.8 kg Intake: Intake, IV Titration 1076 Amount Sodium Chloride 4Meq/ml 1076 Vial 48 meq Sodium Acetate 60 meq Potassium Acetate 30 meq Calcium Gluconate 1 gm Magnesium Sulfate gm 2.5 gm Potassium Phosphate 12 mmol In Amino Acids 5 %/ Dextrose 20 % 1,000 ml @ 70 mls/hr IV .BY DURATION [facility] Rx#:[id number] Oral 480 Output: Urine 1000 150 Other: Voiding Method Urinal Urinal - Labs CBC & Chem 7: 11/06/23 09:33 11/06/23 09:33 Labs: Abnormal Lab Results - Last 24 Hours (Table) 11/05/23 11/05/23 11/05/23 Range/Units 12:08 16:38 23:59 RBC (4.30-5.90) m/uL Hgb (13.0-17.5) gm/dL Hct (39.0-53.0) % MCH (25.0-35.0) pg MCHC (31.0-37.0) g/dL RDW (11.5-15.5) % Lymphocytes # (1.0-4.8) k/uL Sodium (137-145) mmol/L BUN (9-20) mg/dL Creatinine (0.66-1.25) mg/dL Glucose (74-99) mg/dL POC Glucose (mg/dL) 157 H 166 H 164 H (70-110) mg/dL Calcium (8.4-10.2) mg/dL Alkaline Phosphatase (38-126) U/L C-Reactive Protein (<1.0) mg/dL Total Protein (6.3-8.2) g/dL Albumin (3.5-5.0) g/dL 11/06/23 11/06/23 11/06/23 Range/Units 06:11 09:33 09:33 RBC 4.08 L (4.30-5.90) m/uL Hgb 9.3 L (13.0-17.5) gm/dL Hct 32.7 L (39.0-53.0) % MCH 22.9 L (25.0-35.0) pg MCHC 28.6 L (31.0-37.0) g/dL RDW 17.7 H (11.5-15.5) % Lymphocytes # 0.8 L (1.0-4.8) k/uL Sodium 133 L (137-145) mmol/L BUN 21 H (9-20) mg/dL Creatinine 0.57 L (0.66-1.25) mg/dL Glucose 147 H (74-99) mg/dL POC Glucose (mg/dL) 147 H (70-110) mg/dL Calcium 7.9 L (8.4-10.2) mg/dL Alkaline Phosphatase 212 H (38-126) U/L C-Reactive Protein 15.9 H (<1.0) mg/dL Total Protein 5.8 L (6.3-8.2) g/dL Albumin 2.5 L (3.5-5.0) g/dL
[2023-11-06 11:39] LABS: Glucose,Whole Blood 156 mg/dL (70-110)
--- NOTE | 2023-11-06 14:50 | CT ---
EXAMINATION TYPE: CT abdomen pelvis w con DATE OF EXAM: 11/06/2023 COMPARISON: 10/13/2023 INDICATION: abdominal pain, distention, vomiting DLP: 548 mGycm, Automated exposure control for dose reduction was used. CONTRAST: 100ml mL of Isovue 300 Study performed without Oral Contrast TECHNIQUE: Axial images were obtained from above the diaphragm to the pubic rami in the axial plane a t 5 mm thick sections. Reconstructed images are reviewed on the computer in the coronal plane. FINDINGS: Limited CT sections are obtained the lung bases. There is an ill-defined infiltrate through the post erior medial left lung base. Underlying mass is not excluded. Follow-up is recommended. Some subsegme ntal atelectasis likely present at the right lung base.. Fluid-filled distal esophagus is present. CT ABDOMEN: Liver: Normal Spleen: Normal Pancreas: Pancreatic duct is dilated. Multiple calcifications are within the pancreas compatible with chronic pancreatitis. Adrenal glands: The adrenal glands are normal. Gallbladder: There appears to be the gallbladder is normal. This is somewhat difficult to identify gi bigg multiple fluid-filled loops of bowel adjacent. Kidneys: No masses are evident. No hydronephrosis is present. No cysts are present. Delayed images were obtained through the kidneys, which remain unremarkable. Aorta: Vascular calcification is within the aorta. Inferior vena cava: Normal. CT PELVIS: Oral contrast is in the ascending colon region. There are dilated fluid-filled small bowel loops with in the pelvis. The distal colon is decompressed. Some transition is not identified but may be within the descending colon region. Findings appear suspicious for a colonic obstruction findings may be wor sening from comparison 10/13/2023. Appendix: Not identified Urinary bladder: Normal. Genitourinary structures: Prostate appears normal Osseous structures: No suspicious lytic or sclerotic lesions. IMPRESSION: 1. Multiple dilated loops of bowel with air fluid. Distal colonic obstruction may be present. The ex act zone of transition is not identified. 2. Chronic pancreatitis. 3. Possible mass posterior medial left lung base. Atelectasis and pneumonia within the differential. Follow-up is recommended. A [place] level critical message alert has been initiated for Leta Easton MD via the [employer] Critical Results System on 11/06/2023 2:46 PM. This message alert has been sent to Leta jeff MD via the preferences provided by the clinician for the receipt of Radiology Critical Findings . Message ID [id number].
--- NOTE | 2023-11-06 15:42 | P.PN ---
Subjective Progress Note Date: 11/06/23 CHIEF COMPLAINT: Recurrent small bowel obstruction HISTORY OF PRESENT ILLNESS: Patient is status post open exploratory laparotomy with lysis of adhesions, excision of small bowel tumor x 3 closure of decom pressive enterostomy, drainage of abdominal ascites and partial omentectomy on 10/16/23. Patient continues to have abdominal pain and abdominal distention. He is vomiting. He is having flatus and liquidy stools. Afebrile. Mildly tachycardic. WBC 6.6 sodium is 133 PHYSICAL EXAM: VITAL SIGNS: Reviewed GENERAL: Well-developed in no acute distress. HEENT: No sclera icterus. Extraocular movements grossly intact. Moist buccal mucosa. Head is atraumatic, normocephalic. Hears conversational speech. No nasal drainage. NECK: Supple without lymphadenopathy. CHEST: Non-labored respirations and equal bilateral excursions. CARDIOVASCULAR: Palpable 2+ radial pulses. ABDOMEN: Soft. Distended. Mild tenderness at incision site. Incisional dressing clean dry and intact MUSCULOSKELETAL: No clubbing or cyanosis. NEUROLOGIC: No focal or lateralizing signs. Cranial nerves II through XII g rossly intact. PSYCH: Appropriate affect. Alert and oriented to person, place and time. SKIN: Stage II coccyx ulcer ASSESSMENT: 1. Small bowel obstruction 2. History of perforated small bowel 3. Severe protein malnutrition 4. Chronic constipation 5. Dehydration 6. Prior history of tracheostomy and mandibular cancer 7. History of marijuana use. 8. Expected ileus 9. Hypomagnesia 10. Iron deficiency anemia 11. Underweight, BMI 16.5 12. Supraventricular tachycardia 13. MRSA DEBORA drain fluid 14. Possible pneumonia 15. Pressure ulcer of the coccyx self-induced due to patient's choice of immobility PLAN: -CT scan abdomen pelvis with IV contrast ordered for further evaluation of abdominal pain and abdominal distention. Patient unable to tolerate oral contrast at this time. -Encourage patient to ambulate in the hallway every hour -Continue clear liquid diet. -Encourage patient to keep pressure off of his coccyx ulcer -Continue TPN for nutrition support -Continue lactulose or bowel regimen -Continue Reglan -Continue antibiotics per ID -DVT prophylaxis Heparin Physician Branch Office Administrator note has been reviewed by physician. Signing provider agrees with the documented findings, assessment, and plan of care. Objective - Vital Signs Vital signs: Vital Signs Temp 98.4 F 11/06/23 08:00 Pulse 113 H 11/06/23 08:00 Resp 16 11/06/23 08:00 BP 140/96 11/06/23 08:00 Pulse Ox 96 11/06/23 08:00 FiO2 Intake & Output 11/05/23 11/06/23 11/06/23 18:59 06:59 18:59 Intake Total 1556 Output Total 1000 150 Balance 556 -150 Weight 45.8 kg Intake: Intake, IV Titration 1076 Amount Sodium Chloride 4Meq/ml 1076 Vial 48 meq Sodium Acetate 60 meq Potassium Acetate 30 meq Calcium Gluconate 1 gm Magnesium Sulfate gm 2.5 gm Potassium Phosphate 12 mmol In Amino Acids 5 %/ Dextrose 20 % 1,000 ml @ 70 mls/hr IV .BY DURATION [facility] Rx#:[id number] Oral 480 Output: Urine 1000 150 Other: Voiding Method Urinal Urinal - Labs CBC & Chem 7: 11/06/23 09:33 11/06/23 09:33 Labs: Abnormal Lab Results - Last 24 Hours (Table) 11/05/23 11/05/23 11/05/23 Range/Units 12:08 16:38 23:59 RBC (4.30-5.90) m/uL Hgb (13.0-17.5) gm/dL Hct (39.0-53.0) % MCH (25.0-35.0) pg MCHC (31.0-37.0) g/dL RDW (11.5-15.5) % Lymphocytes # (1.0-4.8) k/uL Sodium (137-145) mmol/L BUN (9-20) mg/dL Creatinine (0.66-1.25) mg/dL Glucose (74-99) mg/dL POC Glucose (mg/dL) 157 H 166 H 164 H (70-110) mg/dL Calcium (8.4-10.2) mg/dL Alkaline Phosphatase (38-126) U/L C-Reactive Protein (<1.0) mg/dL Total Protein (6.3-8.2) g/dL Albumin (3.5-5.0) g/dL 11/06/23 11/06/23 11/06/23 Range/Units 06:11 09:33 09:33 RBC 4.08 L (4.30-5.90) m/uL Hgb 9.3 L (13.0-17.5) gm/dL Hct 32.7 L (39.0-53.0) % MCH 22.9 L (25.0-35.0) pg MCHC 28.6 L (31.0-37.0) g/dL RDW 17.7 H (11.5-15.5) % Lymphocytes # 0.8 L (1.0-4.8) k/uL Sodium 133 L (137-145) mmol/L BUN 21 H (9-20) mg/dL Creatinine 0.57 L (0.66-1.25) mg/dL Glucose 147 H (74-99) mg/dL POC Glucose (mg/dL) 147 H (70-110) mg/dL Calcium 7.9 L (8.4-10.2) mg/dL Alkaline Phosphatase 212 H (38-126) U/L C-Reactive Protein 15.9 H (<1.0) mg/dL Total Protein 5.8 L (6.3-8.2) g/dL Albumin 2.5 L (3.5-5.0) g/dL 11/06/23 Range/Units 11:37 RBC (4.30-5.90) m/uL Hgb (13.0-17.5) gm/dL Hct (39.0-53.0) % MCH (25.0-35.0) pg MCHC (31.0-37.0) g/dL RDW (11.5-15.5) % Lymphocytes # (1.0-4.8) k/uL Sodium (137-145) mmol/L BUN (9-20) mg/dL Creatinine (0.66-1.25) mg/dL Glucose (74-99) mg/dL POC Glucose (mg/dL) 156 H (70-110) mg/dL Calcium (8.4-10.2) mg/dL Alkaline Phosphatase (38-126) U/L C-Reactive Protein (<1.0) mg/dL Total Protein (6.3-8.2) g/dL Albumin (3.5-5.0) g/dL Microbiology - Last 24 Hours (Table) 11/04/23 17:12 Catheter Tip Culture - Preliminary Picc Line Yeast species
[2023-11-06 16:49] LABS: Glucose,Whole Blood 105 mg/dL (70-110)
[2023-11-06] MEDS: 1: MVI, ADULT NO.4 WITH VIT K 10 ML, TRACE (CONC-1ML/DOSE) 1 ML, SODIUM CHLORIDE 4MEQ/ML IV SCH (17:05)
[2023-11-06 20:42] LABS: Glucose,Whole Blood 179 mg/dL (70-110)
[2023-11-07 02:08] LABS: Glucose,Whole Blood 151 mg/dL (70-110)
[2023-11-07 06:04] LABS: Glucose,Whole Blood 129 mg/dL (70-110)
[2023-11-07 07:44] LABS: ALT 16 U/L (4-49); AST 21 U/L (17-59); African American GFR (CKD) >90 (>60 ml/min/1.73 sqM); Albumin 2.7 g/dL (3.5-5.0); Alkaline Phosphatase 191 U/L (38-126); Anion Gap 8 mmol/L; Blood Urea Nitrogen 26 mg/dL (9-20); Calcium 8.3 mg/dL (8.4-10.2); Carbon Dioxide 24 mmol/L (22-30); Chloride 99 mmol/L (98-107); Glucose 115 mg/dL (74-99); Magnesium 2.2 mg/dL (1.6-2.3); Non-African American GFR(CKD) >90 (>60 ml/min/1.73 sqM); Potassium 4.9 mmol/L (3.5-5.1); Sodium 131 mmol/L (137-145); Total Bilirubin 0.3 mg/dL (0.2-1.3)
--- NOTE | 2023-11-07 08:38 | P.PN ---
Subjective Progress Note Date: 11/06/23 Principal diagnosis: Reason for follow-up is fever/ileus/obstruction Patient is a 43-year-old -Citizen Of [place] male past medical history significant for right-sided jaw cancer for the patient be treated with chemoradiation therapy, patient also have a history of alcohol abuse possible acute and chronic pancreatitis patient recently did have a prolonged hospital stay for bowel obstruction and this patient who did have a perforated small bowel and status post resection on 09/06/2023 did have prolonged ileus, now presenting back to the hospital abdominal pain and vomiting has been diagnosed with ileus/obstruction.Patient is status post open expiratory laparotomy with lysis o f adhesion excision of small bowel tumor x 3 closure of decompressive enterostomy and drainage of abdominal ascites completed on 10/16/2023. On today's evaluation that is 11/06/2023, the patient continues to be afebrile, the patient is on room air and breathing comfortably, the Pt denies having any c hest pain or cough, the patient still complaining of abdominal discomfort unable to eat nausea but no vomiting mention small bowel movement. Patient white count 6.6, creatinine 0.57 blood cultures catheter tip with the yeast species Objective - Vital Signs Vital signs: Vital Signs Temp 98.4 F 11/06/23 08:00 Pulse 113 H 11/06/23 08:00 Resp 16 11/06/23 08:00 BP 140/96 11/06/23 08:00 Pulse Ox 96 11/06/23 08:00 FiO2 Intake & Output 11/05/23 11/06/23 11/06/23 18:59 06:59 18:59 Intake Total 1556 Output Total 1000 150 Balance 556 -150 Weight 45.8 kg Intake: Intake, IV Titration 1076 Amount Sodium Chloride 4Meq/ml 1076 Vial 48 meq Sodium Acetate 60 meq Potassium Acetate 30 meq Calcium Gluconate 1 gm Magnesium Sulfate gm 2.5 gm Potassium Phosphate 12 mmol In Amino Acids 5 %/ Dextrose 20 % 1,000 ml @ 70 mls/hr IV .BY DURATION [facility] Rx#:[id number] Oral 480 Output: Urine 1000 150 Other: Voiding Method Urinal Urinal - Exam GENERAL DESCRIPTION: Middle-age male up in the chair in no distress RESPIRATORY SYSTEM: Unlabored breathing , decreased breath sounds at bases HEART: S1 S2 regular rate and rhythm , ABDOMEN: Soft , mild distention and tenderness EXTREMITIES: No edema feet - Labs CBC & Chem 7: 11/06/23 09:33 11/07/23 06:57 Labs: Abnormal Lab Results - Last 24 Hours (Table) 11/05/23 11/05/23 11/06/23 Range/Units 16:38 23:59 06:11 RBC (4.30-5.90) m/uL Hgb (13.0-17.5) gm/dL Hct (39.0-53.0) % MCH (25.0-35.0) pg MCHC (31.0-37.0) g/dL RDW (11.5-15.5) % Lymphocytes # (1.0-4.8) k/uL Sodium (137-145) mmol/L BUN (9-20) mg/dL Creatinine (0.66-1.25) mg/dL Glucose (74-99) mg/dL POC Glucose (mg/dL) 166 H 164 H 147 H (70-110) mg/dL Calcium (8.4-10.2) mg/dL Alkaline Phosphatase (38-126) U/L C-Reactive Protein (<1.0) mg/dL Total Protein (6.3-8.2) g/dL Albumin (3.5-5.0) g/dL 11/06/23 11/06/23 11/06/23 Range/Units 09:33 09:33 11:37 RBC 4.08 L (4.30-5.90) m/uL Hgb 9.3 L (13.0-17.5) gm/dL Hct 32.7 L (39.0-53.0) % MCH 22.9 L (25.0-35.0) pg MCHC 28.6 L (31.0-37.0) g/dL RDW 17.7 H (11.5-15.5) % Lymphocytes # 0.8 L (1.0-4.8) k/uL Sodium 133 L (137-145) mmol/L BUN 21 H (9-20) mg/dL Creatinine 0.57 L (0.66-1.25) mg/dL Glucose 147 H (74-99) mg/dL POC Glucose (mg/dL) 156 H (70-110) mg/dL Calcium 7.9 L (8.4-10.2) mg/dL Alkaline Phosphatase 212 H (38-126) U/L C-Reactive Protein 15.9 H (<1.0) mg/dL Total Protein 5.8 L (6.3-8.2) g/dL Albumin 2.5 L (3.5-5.0) g/dL Microbiology - Last 24 Hours (Table) 11/04/23 17:12 Catheter Tip Culture - Preliminary Picc Line Yeast species Assessment and Plan (1) Leukocytosis Current Visit: Yes Status: Acute Code(s): D72.829 - ELEVATED WHITE BLOOD CELL COUNT, UNSPECIFIED SNOMED Code(s): 148076113 (2) Ileus Current Visit: Yes Status: Acute Code(s): K56.7 - ILEUS, UNSPECIFIED SNOMED Code(s): 757884507 (3) MRSA (methicillin resistant staph aureus) culture positive Current Visit: Yes Status: Acute Code(s): Z22.322 - CARRIER OR SUSPECTED CARRIER OF METHICILLIN RESIS STAPH SNOMED Code(s): 608096003 (4) Candidemia Current Visit: Yes Status: Acute Code(s): B37.7 - CANDIDAL SEPSIS SNOMED Code(s): 389845696 Plan: 1patient presented hospital with sepsis in this patient who did have an elevated white count tachycardia source likely abdominal pain this patient did have predominantly abdominal symptoms with abdominal pain and vomiting CT has been suggestive of ileus/obstruction and will likely need to cover for the enteric gram-negative both aerobes and anaerobes 2- cultures from the DEBORA grew MRSA as well as Enterococcus, for the patient received adequate Unasyn and vancomycin therapy 3-patient is status post extensive abdominal surgery did not mention any perforation or abscess no cultures 4- patient did have a new fever on 11/02/2023 with blood culture positive for Ca ndida parapsilosis PICC line was discontinued and the catheter positive for yeast as well patient also have a port from which blood culture has been obtained and will be followed 5-patient to continue with Diflucan IV and monitor clinical course closely Dictation was produced using [employer] dictation software. please excuse any grammatical, word or spelling errors. Time with Patient: Less than 30
[2023-11-07 11:43] LABS: Glucose,Whole Blood 174 mg/dL (70-110)
--- NOTE | 2023-11-07 11:56 | P.PN ---
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 He completed multiple days of IV antibiotics and discharged home on PO Augmentin and DEBORA drain. He presented to the emergency department on 10/09/2023 with a chief complaint of increased abdominal pain, abdominal distention and multiple episodes of bilious vomiting. Upon arrival in the emergency department, patient underwent full evaluation. Vital signs upon arrival showed BP 145/95, HR 101, RR 18, T 90 7.8F, 100% on RA. Labs were completed and reviewed CBC showed WBC count 18.5, hemoglobin 10.6, hematocrit 33.2, MCV 79, platelet 634. CMP showed sodium 134, bicarb 20, creatinine 0.48, glucose 167, albumin 2.9. Lipase 473. Lactic acid 1.4. CT abdomen and pelvis was completed revealing diffuse SB dilation with bowel containing gas, feces, and fluid suspicious for ileus versus small bowel obstruction, drainage catheter in place, and chronic pancreatitis changes. Patient reported having bowel movements despite abdominal distention and worsening pain. Patient was admitted to general surgery team and [facility] was consulted for medical management of this patient throughout hospitalization. DEBORA drain cultures positive for MRSA. Patient failed conservative management of small bowel obstruction and was taken for open laparo judd with lysis of adhesions and resection of small bowel tumor with wound VAC placement on 10/16/2023. Pathology sample was sent to lab for analysis and per pathology report, negative for histopathologic changes and negative for malignancy.Patient with postoperative ileus resulting in nausea and vomiting and reinsertion of NG tube on 10/26/2023 and again removal of NG tube on 10/29/2023. On the evening of 11/02/2023 patient was receiving blood transfusion and spiked an elevated temp as high as 101.6 F and tachycardia with heart rate 130s. Blood cultures were obtained and patient was started back on IV antibiotics with vancomycin and transferred to [facility] for closer monitoring. On 11/03/2023 patient continued to have incontinent stools and underwent a fluoroscopic small bowel follow-through again revealing severe obstruction versus ileus. BCx 11/02 came back positive for Courtney. Patient was started on Fluconazole. PICC line discontinued and sent for culture confirms yeast species. 11/04 Patient was seen and examined. Nutrition include TPN. Antibiotics include Vancomycin (D3) and antifungal Fluconazole (D2). Started on Relistor on 11/03- 11/05. Also on Reglan IV. KUB done yesterday showed contarst now passed into the colon, ileus versus partial obstruction. CMP Na 130, bicarb 20, Cr 0.54, glu 132, Ca 8, alk phos 237, alb 2.5. Mag 1.8. Phos 3.6. 11/05 Patient was seen and examined. Tolerating CLD with no N/V. Small BM as well. However, abdomen very distended. Discussed with Corazon, plans for CT AP today. CBC Hg 9.3 Hct 32.7. CMP Na 133, BUN 21, Cr 0.57, glu 147, Ca 7.9, alk phos 212, alb 2.5. CRP 15.9. Mag 2. Phos 4.4. 11/06 Patient was seen and examined. CT AP done yesterday shows multiple dilated loops of bowel with air fluid. Discussed with Corazon, there is a possibility he may need another surgery. CMP Na 131, BUN 26, glu 115, Ca 8.3, alk phos 191, alb 2.7. Mag 2.2. Phos 4.0. General: no distress, appears at stated age Derm: warm, dry Head: atraumatic, normocephalic, symmetric Eyes: EOMI, no lid lag, anicteric sclera Mouth: no lip lesion, mucus membranes moist Cardiovascular: S1S2 tachy, no murmur Lungs: Decreased BS bilateral, no rhonchi, no rales , no accessory muscle use Abdominal: distended, nontender to palpation, postsurgical incision midline with wound VAC and abdominal binder in place Ext: no gross muscle atrophy, no edema, no contractures Neuro: No focal neurologic deficits Psych: Alert and oriented Based on my assessment of this patient, this patient meets a high complexity level of care. Patient has an acute diagnosis of SBO status post open laparotomy with lysis of adhesions and resection of small bowel tumor on 10/16/2023 complicated with recurrent ileus versus SBO and fever that poses a threat to life or bodily function. Courtney bacteremia: Confirmed with BCx and PICC line Cx. Vancomycin dosed per pharmacy on 11/02 and Fluconazole 400 mg IV QD 11/03. Repeat BCx until negative. Sinus tachycardia: Echo EF 60-65% small pericardial effusion. HR now in the 110s. Venous doppler negative for DVT. Saturating on RA, low probability for PE. Metoprolol 50 mg PO QD. MRSA + Enterococcus infection: Completed course of Unasyn and Vancomycin. Restarted on vancomycin since fever on 11/03. Monitor trough and renal function closely for signs of vancomycin associated renal toxicity. Recurrent postoperative ileus: Reglan 10 mg IVP every 6 hours scheduled for persistent nausea and to increase bowel motility. Relistor x 2 doses started on 11/03. Recurrent small bowel obstruction requiring open laparotomy with lysis of adhesions and resection of small bowel tumor on 10/16/2023 Retroperitoneal mass: Pathology negative for malignancy. History of GERD with erosive esophagitis: Protonix 40 mg IV QD. History of gastritis: Protonix as above. Elevated lipase with history of chronic pancreatitis Severe protein calorie malnutrition with BMI of 16.9 kg/m: Dietitian following managing TPN and lipids. Acute postoperative blood loss anemia on anemia of chronic disease: Status post ferrlecit x 3 days. Status post 1 PRBC 11/01. Transfuse if Hg < 7. Thrombocytosis Resolved: HypoK, HypoMag CODE STATUS: FULL CODE. DVT Prophylaxis: Heparin SQ GI Prophylaxis: Protonix 40 mg IVP daily Designated medical POA if patient is not able to make medical decisions for themselves: I have reviewed the following web development consultant notes: ID, Surgery note. I have reviewed the results of the following tests: CBC, CMP, Mag, Phos I have ordered the following tests: CMP, Mag, Phos. I have discussed the care of this patient with the following independent historian: I have independently interpreted the following test below: I have discussed the management of this patient with the following physician: Corazon MENESES as above Objective - Vital Signs Vital signs: Vital Signs Temp 97.7 F 11/07/23 09:59 Pulse 131 H 11/07/23 10:00 Resp 18 11/07/23 09:59 BP 136/95 11/07/23 09:59 Pulse Ox 95 11/07/23 04:00 FiO2 Intake & Output 11/06/23 11/07/23 11/07/23 18:59 06:59 18:59 Intake Total 1260 240 Output Total 150 350 Balance -150 910 240 Weight 45.8 kg Intake: Oral 1260 240 Output: Urine 150 350 Other: Voiding Method Urinal - Labs CBC & Chem 7: 11/06/23 09:33 11/07/23 06:57 Labs: Abnormal Lab Results - Last 24 Hours (Table) 11/06/23 11/07/23 11/07/23 Range/Units 20:39 02:05 06:03 Sodium (137-145) mmol/L BUN (9-20) mg/dL Glucose (74-99) mg/dL POC Glucose (mg/dL) 179 H 151 H 129 H (70-110) mg/dL Calcium (8.4-10.2) mg/dL Alkaline Phosphatase (38-126) U/L Total Protein (6.3-8.2) g/dL Albumin (3.5-5.0) g/dL 11/07/23 11/07/23 Range/Units 06:57 11:41 Sodium 131 L (137-145) mmol/L BUN 26 H (9-20) mg/dL Glucose 115 H (74-99) mg/dL POC Glucose (mg/dL) 174 H (70-110) mg/dL Calcium 8.3 L (8.4-10.2) mg/dL Alkaline Phosphatase 191 H (38-126) U/L Total Protein 6.0 L (6.3-8.2) g/dL Albumin 2.7 L (3.5-5.0) g/dL Microbiology - Last 24 Hours (Table) 11/03/23 09:37 Blood Culture Gram Stain - Final Blood Blood Culture - Final Courtney parapsilosis group Molecular ID 11/02/23 22:49 Blood Culture Gram Stain - Final Blood Blood Culture - Final Courtney parapsilosis group 11/05/23 15:56 Blood Culture - Preliminary Blood 11/04/23 17:12 Catheter Tip Culture - Preliminary Picc Line Yeast species
--- NOTE | 2023-11-07 15:12 | P.PN ---
Subjective Progress Note Date: 11/07/23 Principal diagnosis: Reason for follow-up is fever/ileus/obstruction Patient is a 43-year-old -Citizen Of [place] male past medical history significant for right-sided jaw cancer for the patient be treated with chemoradiation therapy, patient also have a history of alcohol abuse possible acute and chronic pancreatitis patient recently did have a prolonged hospital stay for bowel obstruction and this patient who did have a perforated small bowel and status post resection on 09/06/2023 did have prolonged ileus, now presenting back to the hospital abdominal pain and vomiting has been diagnosed with ileus/obstruction.Patient is status post open expiratory laparotomy with lysis o f adhesion excision of small bowel tumor x 3 closure of decompressive enterostomy and drainage of abdominal ascites completed on 10/16/2023. On today's evaluation that is 11/07/2023, Patient is afebrile patient is currently on room air and denies having any shortness of breath, the patient denies any chest pain or cough, the patient denies any nausea vomiting however still complaining of abdominal distention and discomfort small bowel movement. Patient did have a creatinine 0.67 no CBC was done today blood culture repeat so far pending Objective - Vital Signs Vital signs: Vital Signs Temp 97.7 F 11/07/23 09:59 Pulse 131 H 11/07/23 10:00 Resp 18 11/07/23 09:59 BP 136/95 11/07/23 09:59 Pulse Ox 95 11/07/23 04:00 FiO2 Intake & Output 11/06/23 11/07/23 11/07/23 18:59 06:59 18:59 Intake Total 1260 490 Output Total 150 350 Balance -150 910 490 Weight 45.8 kg Intake: Oral 1260 490 Output: Urine 150 350 Other: Voiding Method Urinal - Exam GENERAL DESCRIPTION: Middle-age male up in the chair in no distress RESPIRATORY SYSTEM: Unlabored breathing , decreased breath sounds at bases HEART: S1 S2 regular rate and rhythm , ABDOMEN: Soft , mild distention and tenderness EXTREMITIES: No edema feet - Labs CBC & Chem 7: 11/06/23 09:33 11/07/23 06:57 Labs: Abnormal Lab Results - Last 24 Hours (Table) 11/06/23 11/07/23 11/07/23 Range/Units 20:39 02:05 06:03 Sodium (137-145) mmol/L BUN (9-20) mg/dL Glucose (74-99) mg/dL POC Glucose (mg/dL) 179 H 151 H 129 H (70-110) mg/dL Calcium (8.4-10.2) mg/dL Alkaline Phosphatase (38-126) U/L Total Protein (6.3-8.2) g/dL Albumin (3.5-5.0) g/dL 11/07/23 11/07/23 Range/Units 06:57 11:41 Sodium 131 L (137-145) mmol/L BUN 26 H (9-20) mg/dL Glucose 115 H (74-99) mg/dL POC Glucose (mg/dL) 174 H (70-110) mg/dL Calcium 8.3 L (8.4-10.2) mg/dL Alkaline Phosphatase 191 H (38-126) U/L Total Protein 6.0 L (6.3-8.2) g/dL Albumin 2.7 L (3.5-5.0) g/dL Microbiology - Last 24 Hours (Table) 11/04/23 17:12 Catheter Tip Culture - Final Picc Line Courtney species, not albicans 11/03/23 09:37 Blood Culture Gram Stain - Final Blood Blood Culture - Final Courtney parapsilosis group Molecular ID 11/02/23 22:49 Blood Culture Gram Stain - Final Blood Blood Culture - Final Courtney parapsilosis group 11/05/23 15:56 Blood Culture - Preliminary Blood Assessment and Plan (1) Leukocytosis Current Visit: Yes Status: Acute Code(s): D72.829 - ELEVATED WHITE BLOOD CELL COUNT, UNSPECIFIED SNOMED Code(s): 831100158 (2) Ileus Current Visit: Yes Status: Acute Code(s): K56.7 - ILEUS, UNSPECIFIED SNOMED Code(s): 060791241 (3) MRSA (methicillin resistant staph aureus) culture positive Current Visit: Yes Status: Acute Code(s): Z22.322 - CARRIER OR SUSPECTED CARRIER OF METHICILLIN RESIS STAPH SNOMED Code(s): 132365566 (4) Candidemia Current Visit: Yes Status: Acute Code(s): B37.7 - CANDIDAL SEPSIS SNOMED Code(s): 918294121 Plan: 1patient presented hospital with sepsis in this patient who did have an elevated white count tachycardia source likely abdominal pain this patient did have predominantly abdominal symptoms with abdominal pain and vomiting CT has been suggestive of ileus/obstruction and will likely need to cover for the enteric gram-negative both aerobes and anaerobes 2- cultures from the DEBORA grew MRSA as well as Enterococcus, for the patient received adequate Unasyn and vancomycin therapy 3-patient is status post extensive abdominal surgery did not mention any perforation or abscess no cultures 4- patient did have a new fever on 11/02/2023 with blood culture positive for Ca ndida parapsilosis PICC line was discontinued and the catheter positive for yeast as well patient also have a port from which blood culture has been obtained. Which are currently pending, patient to continue with the current treatment of IV Diflucan and monitor clinical course closely Dictation was produced using [employer] dictation software. please excuse any grammatical, word or spelling errors. Time with Patient: Less than 30
--- NOTE | 2023-11-07 15:53 | P.PN ---
Subjective Progress Note Date: 11/07/23 CHIEF COMPLAINT: Recurrent small bowel obstruction HISTORY OF PRESENT ILLNESS: Patient is status post open exploratory laparotomy with lysis of adhesions, excision of small bowel tumor x 3 closure of decom pressive enterostomy, drainage of abdominal ascites and partial omentectomy on 10/16/23. Patient continues to have abdominal pain and abdominal distention. He has been having liquidy stools. CT scan abdomen and pelvis reports multiple dilated loops of bowel with air-fluid. Distal colonic obstruction may be present. The exact transition point is not identified. Chronic pancreatitis. Possible mass posterior medial left lung base. Atelectasis and pneumonia within the differential. Patient has had his PICC line removed due to PICC line infection. Blood cultures are positive with Courtney. Infectious disease added Diflucan. Patient is receiving TPN through his port. PHYSICAL EXAM: VITAL SIGNS: Reviewed GENERAL: Well-developed in no acute distress. HEENT: No sclera icterus. Extraocular movements grossly intact. Moist buccal mucosa. Head is atraumatic, normocephalic. Hears conversational speech. No nasal drainage. NECK: Supple without lymphadenopathy. CHEST: Non-labored respirations and equal bilateral excursions. CARDIOVASCULAR: Palpable 2+ radial pulses. ABDOMEN: Remains distended. Tender at incision site. Incisional dressing clean dry and intact. MUSCULOSKELETAL: No clubbing or cyanosis. NEUROLOGIC: No focal or lateralizing signs. Cranial nerves II through XII grossly intact. PSYCH: Appropriate affect. Alert and oriented to person, place and time. SKIN: Stage II coccyx ulcer ASSESSMENT: 1. Distal colonic obstruction noted on CAT scan 2. Small bowel obstruction status post lysis of adhesions on 10/16/2023 3. History of perforated small bowel 4. Severe protein malnutrition 5. Chronic constipation 6. Dehydration 7. Prior history of tracheostomy and mandibular cancer 8. History of marijuana use. 9. Expected ileus 10. Iron deficiency anemia 11. Underweight, BMI 16.5 12. Supraventricular tachycardia 13. MRSA DEBORA drain fluid 14. Possible pneumonia 15. Pressure ulcer of the coccyx self-induced due to patient's choice of immobility PLAN: -Further recommendations forthcoming per surgeon regarding possible surgical intervention for patient's colonic obstruction -Encourage patient to ambulate in the hallway every hour -Continue clear liquid diet. -Encourage patient to keep pressure off of his coccyx ulcer -Continue TPN for nutrition support -Continue lactulose or bowel regimen -Continue Reglan -Continue antibiotics per ID -DVT prophylaxis Heparin Physician Wagon Winder note has been reviewed by physician. Signing provider agrees with the documented findings, assessment, and plan of care. CHIEF COMPLAINT: Bowel obstruction HISTORY OF PRESENT ILLNESS: The patient is a 43-year-old male status post exploratory laparotomy for bowel resection, 10/16/2023. Additional diagnostic studies were obtained including CT of the abdomen pelvis. Patient reports ambulating and passing flatus and having bowel movements. He does complain of increased abdominal distention after drinking liquids. He reports mild abdominal pain. ROS: No fevers or chills. No new chest pain. No productive sputum PHYSICAL EXAM: VITAL SIGNS: Reviewed CONSTITUTIONAL: Well developed and in no acute distress. EYES: Conjuctivae without sclera icterus. Extraocular movements grossly intact. HEAD, EARS, NOSE, THROAT: Moist buccal mucosa. Head is atraumatic, normocephalic. Hears conversational speech. RESPIRATORY: Non-labored respirations and equal bilateral excursions. CARDIOVASCULAR: Palpable 2+ radial pulses. ABDOMEN: Distended. MUSCULOSKELETAL: No gross deformity of the lower extremities noted. No clubbing. No cyanosis. SKIN: Good skin turgor. Well perfused. NEUROLOGIC: Cranial nerves II through XII grossly intact. No focal or lateralizing signs. PSYCH: Appropriate affect. Alert and oriented to person, place and time. CLINICAL LABS: Reviewed. Hemoglobin 9.3. White blood cell count normal 6.6. STUDIES: CT of the abdomen pelvis demonstrates moderate gaseous distention involving the small bowel including proximal large bowel. Imaging from previous hospitalization with small bowel follow-through also reviewed demonstrating questionable lesion of the sigmoid colon. Additional prior CT scans also reviewed demonstrated questionable involvement of the distal transverse colon to sigmoid colon. No prior lung masses identified on prior CT scans from last hospitalization. ASSESSMENT: 1. Small bowel obstruction 2. History of perforated small bowel 3. Severe protein malnutrition 4. Chronic constipation 5. Dehydration 6. Prior history of tracheostomy and mandibular cancer 7. History of marijuana use. 8. Expected ileus 9. Hypomagnesia 10. Iron deficiency anemia 11. Underweight, BMI 16.5 12. Supraventricular tachycardia 13. Large bowel obstruction 14. Abnormal CT scan for lung mass PLAN: 1. I had extensive discussion with the patient where his clinical finding is now consistent with large bowel obstruction over small bowel obstruction. As he has abdominal distention, nasogastric tube placement was described. 2. Etiology of large bowel obstruction is uncertain especially with multiple diagnostic studies previously performed. Ideally colonoscopy assessment is advised however due to the patient's extreme abdominal distention, decompressive ileostomy is described with future colonoscopy. Minimally invasive approach was reviewed as patient had multiple prior open laparotomies. 3. Patient presents with severe malnutrition where open laparotomy with resection and chronic anastomosis is high risk for leak and complications therefore decompressive ileostomy reviewed. 4. Shared decision making in progress as patient wished to consider his options Objective - Vital Signs Vital signs: Vital Signs Temp 97.7 F 11/07/23 09:59 Pulse 131 H 11/07/23 10:00 Resp 18 11/07/23 09:59 BP 136/95 11/07/23 09:59 Pulse Ox 95 11/07/23 04:00 FiO2 Intake & Output 11/06/23 11/07/23 11/07/23 18:59 06:59 18:59 Intake Total 1260 490 Output Total 150 350 Balance -150 910 490 Weight 45.8 kg Intake: Oral 1260 490 Output: Urine 150 350 Other: Voiding Method Urinal - Labs CBC & Chem 7: 11/06/23 09:33 11/07/23 06:57 Labs: Abnormal Lab Results - Last 24 Hours (Table) 11/06/23 11/07/23 11/07/23 Range/Units 20:39 02:05 06:03 Sodium (137-145) mmol/L BUN (9-20) mg/dL Glucose (74-99) mg/dL POC Glucose (mg/dL) 179 H 151 H 129 H (70-110) mg/dL Calcium (8.4-10.2) mg/dL Alkaline Phosphatase (38-126) U/L Total Protein (6.3-8.2) g/dL Albumin (3.5-5.0) g/dL 11/07/23 11/07/23 Range/Units 06:57 11:41 Sodium 131 L (137-145) mmol/L BUN 26 H (9-20) mg/dL Glucose 115 H (74-99) mg/dL POC Glucose (mg/dL) 174 H (70-110) mg/dL Calcium 8.3 L (8.4-10.2) mg/dL Alkaline Phosphatase 191 H (38-126) U/L Total Protein 6.0 L (6.3-8.2) g/dL Albumin 2.7 L (3.5-5.0) g/dL Microbiology - Last 24 Hours (Table) 11/04/23 17:12 Catheter Tip Culture - Final Picc Line Courtney species, not albicans 11/03/23 09:37 Blood Culture Gram Stain - Final Blood Blood Culture - Final Courtney parapsilosis group Molecular ID 11/02/23 22:49 Blood Culture Gram Stain - Final Blood Blood Culture - Final Courtney parapsilosis group 11/05/23 15:56 Blood Culture - Preliminary Blood
[2023-11-07 16:41] LABS: Glucose,Whole Blood 144 mg/dL (70-110)
[2023-11-07 20:55] LABS: Glucose,Whole Blood 138 mg/dL (70-110)
[2023-11-08 00:20] LABS: Glucose,Whole Blood 118 mg/dL (70-110)
[2023-11-08] MEDS: 1: MVI, ADULT NO.4 WITH VIT K 10 ML, TRACE (CONC-1ML/DOSE) 1 ML, SODIUM CHLORIDE 4MEQ/ML IV SCH (00:56)
[2023-11-08 06:13] LABS: Glucose,Whole Blood 137 mg/dL (70-110)
[2023-11-08 09:45] LABS: ALT 13 U/L (4-49); AST 16 U/L (17-59); African American GFR (CKD) >90 (>60 ml/min/1.73 sqM); Albumin 2.6 g/dL (3.5-5.0); Alkaline Phosphatase 211 U/L (38-126); Anion Gap 8 mmol/L; Blood Urea Nitrogen 25 mg/dL (9-20); Calcium 8.1 mg/dL (8.4-10.2); Carbon Dioxide 24 mmol/L (22-30); Chloride 99 mmol/L (98-107); Glucose 127 mg/dL (74-99); Magnesium 2.2 mg/dL (1.6-2.3); Non-African American GFR(CKD) >90 (>60 ml/min/1.73 sqM); Phosphorus 3.9 mg/dL (2.5-4.5); Potassium 4.6 mmol/L (3.5-5.1); Sodium 131 mmol/L (137-145); Total Bilirubin 0.2 mg/dL (0.2-1.3); Total Protein 5.9 g/dL (6.3-8.2)
--- NOTE | 2023-11-08 11:01 | P.PN ---
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 He completed multiple days of IV antibiotics and discharged home on PO Augmentin and DEBORA drain. He presented to the emergency department on 10/09/2023 with a chief complaint of increased abdominal pain, abdominal distention and multiple episodes of bilious vomiting. Upon arrival in the emergency department, patient underwent full evaluation. Vital signs upon arrival showed BP 145/95, HR 101, RR 18, T 90 7.8F, 100% on RA. CBC showed WBC count 18.5, hemoglobin 10.6, hematocrit 33.2, MCV 79, platelet 634. CMP showed sodium 134, bicarb 20, creati nine 0.48, glucose 167, albumin 2.9. Lipase 473. Lactic acid 1.4. CT AP was completed revealing diffuse SB dilation with bowel containing gas, feces, and fluid suspicious for ileus versus small bowel obstruction, drainage catheter in place, and chronic pancreatitis changes. Patient was admitted to general surgery team and [facility] was consulted for medical management of this patient. DEBORA drain cultures positive for MRSA and Enterococcus, completing a course of Vancomycin and Unasyn. Patient failed conservative management of small bowel obstruction and was taken for open laparotomy with lysis of adhesions and resection of small bowel tumor with wound VAC placement on 10/16/2023. Pathology negative for histopathologic changes and negative for malignancy. Patient with postoperative ileus resulting in nausea and vomiting and reinsertion of NG tube on 10/26/2023 and again removal of NG tube on 10/29/2023. On the evening of 11/02/2023 patient was receiving blood transfusion and spiked an Tmax of 101.6 F with heart rate 130s. Blood cultures were obtained and patient was started back on IV antibiotics with vancomycin and transferred to [facility] for closer monitoring. On 11/03/2023 patient continued to have incontinent stools and underwent a fluoroscopic small bowel follow-through again revealing severe obstruction versus ileus. BCx 11/02 came back positive for Courtney. Patient was started on Fluconazole and Vancomycin discontinued. PICC line discontinued and sent for culture confirms yeast species. CTAP confirming multiple dilated loops of bowel with air fluid. Patient will likely need to go back to the OR at some point. 11/04 Patient was seen and examined. Nutrition include TPN. Antibiotics include Vancomycin (D3) and antifungal Fluconazole (D2). Started on Relistor on 11/03- 11/05. Also on Reglan IV. KUB done yesterday showed contarst now passed into the colon, ileus versus partial obstruction. CMP Na 130, bicarb 20, Cr 0.54, glu 132, Ca 8, alk phos 237, alb 2.5. Mag 1.8. Phos 3.6. ID discontinued Vancomycin today. 11/05 Patient was seen and examined. Tolerating CLD with no N/V. Small BM as well. However, abdomen very distended. Continued on antifungal Fluconazole (D3). Discussed with Corazon, plans for CT AP today. CBC Hg 9.3 Hct 32.7. CMP Na 133, BUN 21, Cr 0.57, glu 147, Ca 7.9, alk phos 212, alb 2.5. CRP 15.9. Mag 2. Phos 4.4. 11/06 Patient was seen and examined. CT AP done yesterday shows multiple dilated loops of bowel with air fluid. Discussed with Corazon, there is a possibility he may need another surgery. Continued on antifungal Fluconazole (D4). CMP Na 131, BUN 26, glu 115, Ca 8.3, alk phos 191, alb 2.7. Mag 2.2. Phos 4.0. 11/07 Patient was seen and examined. Discussed with Dr. Blood yesterday, no lung mass appreciated, likely atelectasis, will discontinue Pulmonary consult. Repeat BCx from 11/04 and 11/05 negative so far. Continued on antifungal Fluc onazole (D5). Currently receiving TPN through port. Plans for possible OR at some point. CMP Na 131, BUN 25, glu 127, Ca 8.1, AST 16, alk phos 211, alb 2.6. Mag 2.2. Phos 3.9. General: no distress, appears at stated age Derm: warm, dry Head: atraumatic, normocephalic, symmetric Eyes: EOMI, no lid lag, anicteric sclera Mouth: no lip lesion, mucus membranes moist Cardiovascular: S1S2 tachy, no murmur Lungs: Decreased BS bilateral, no rhonchi, no rales , no accessory muscle use Abdominal: distended, nontender to palpation, postsurgical incision midline, sluggish BS Ext: no gross muscle atrophy, no edema, no contractures Neuro: No focal neurologic deficits Psych: Alert and oriented Based on my assessment of this patient, this patient meets a high complexity level of care. Patient has an acute diagnosis of SBO status post open laparotomy with lysis of adhesions and resection of small bowel tumor on 10/16/2023 complicated with recurrent ileus versus SBO and fever that poses a threat to life or bodily function. Courtney bacteremia: Confirmed with BCx and PICC line Cx. Fluconazole 400 mg IV QD 11/03. Repeat BCx until negative. Sinus tachycardia: Echo EF 60-65% small pericardial effusion. HR now in the 110s. Venous doppler negative for DVT. Saturating on RA, low probability for PE. Metoprolol 50 mg PO QD. MRSA + Enterococcus infection: Completed course of Unasyn and Vancomycin from -10/31. Restarted on vancomycin since fever from 11/02-11/04. Recurrent postoperative ileus: Reglan 10 mg IVP Q6H scheduled for persistent nausea and to increase bowel motility. Relistor x 2 doses started on 11/03. Recurrent small bowel obstruction requiring open laparotomy with lysis of adhesions and resection of small bowel tumor on 10/16/2023 Retroperitoneal mass: Pathology negative for malignancy. History of GERD with erosive esophagitis: Protonix 40 mg IV QD. History of gastritis: Protonix as above. Elevated lipase with history of chronic pancreatitis Severe protein calorie malnutrition with BMI of 16.9 kg/m: Dietitian following managing TPN and lipids. Acute postoperative blood loss anemia on anemia of chronic disease: Status post ferrlecit x 3 days. Status post 1 PRBC 11/01. Transfuse if Hg < 7. Thrombocytosis Resolved: HypoK, HypoMag CODE STATUS: FULL CODE. DVT Prophylaxis: Heparin SQ GI Prophylaxis: Protonix 40 mg IVP daily Designated medical POA if patient is not able to make medical decisions for themselves: I have reviewed the following homemaking rehabilitation consultant notes: ID, Surgery note. I have reviewed the results of the following tests: CMP, Mag, Phos I have ordered the following tests: CMP, Mag, Phos ordered daily. I have discussed the care of this patient with the following independent historian: I have independently interpreted the following test below: I have discussed the management of this patient with the following physician: Dr. Blood as above. Objective - Vital Signs Vital signs: Vital Signs Temp 98.2 F 11/07/23 19:40 Pulse 103 H 11/08/23 04:10 Resp 15 11/08/23 04:10 BP 109/79 11/08/23 04:10 Pulse Ox 96 11/08/23 04:10 FiO2 Intake & Output 11/07/23 11/08/23 11/08/23 18:59 06:59 18:59 Intake Total 490 Output Total 200 325 Balance 290 -325 Weight 45.8 kg Intake: Oral 490 Output: Urine 200 325 Other: Voiding Method Urinal - Labs CBC & Chem 7: 11/06/23 09:33 11/08/23 08:08 Labs: Abnormal Lab Results - Last 24 Hours (Table) 11/07/23 11/07/23 11/07/23 Range/Units 06:57 11:41 16:37 Sodium 131 L (137-145) mmol/L BUN 26 H (9-20) mg/dL Glucose 115 H (74-99) mg/dL POC Glucose (mg/dL) 174 H 144 H (70-110) mg/dL Calcium 8.3 L (8.4-10.2) mg/dL Alkaline Phosphatase 191 H (38-126) U/L Total Protein 6.0 L (6.3-8.2) g/dL Albumin 2.7 L (3.5-5.0) g/dL 11/07/23 11/08/23 11/08/23 Range/Units 20:53 00:18 06:11 Sodium (137-145) mmol/L BUN (9-20) mg/dL Glucose (74-99) mg/dL POC Glucose (mg/dL) 138 H 118 H 137 H (70-110) mg/dL Calcium (8.4-10.2) mg/dL Alkaline Phosphatase (38-126) U/L Total Protein (6.3-8.2) g/dL Albumin (3.5-5.0) g/dL Microbiology - Last 24 Hours (Table) 11/05/23 15:56 Blood Culture - Preliminary Blood 11/06/23 09:33 Blood Culture - Preliminary Blood 11/04/23 17:12 Catheter Tip Culture - Final Picc Line Courtney species, not albicans 11/03/23 09:37 Blood Culture Gram Stain - Final Blood Blood Culture - Final Courtney parapsilosis group Molecular ID 11/02/23 22:49 Blood Culture Gram Stain - Final Blood Blood Culture - Final Courtney parapsilosis group
[2023-11-08 11:44] LABS: Glucose,Whole Blood 129 mg/dL (70-110)
--- NOTE | 2023-11-08 15:22 | P.PN ---
Subjective Patient seen and evaluated at bedside. No abdominal pain. Objective - Vital Signs Vital signs: Vital Signs Temp 98.1 F 11/08/23 11:20 Pulse 95 11/08/23 14:20 Resp 18 11/08/23 14:20 BP 115/74 11/08/23 11:20 Pulse Ox 99 11/08/23 11:20 FiO2 Intake & Output 11/07/23 11/08/23 11/08/23 18:59 06:59 18:59 Intake Total 490 Output Total 200 325 402 Balance 290 -325 -402 Weight 45.8 kg Intake: Oral 490 Output: Urine 200 325 400 Stool 2 Other: Voiding Method Urinal Urinal # Voids 2 - Exam general no acute distress Cardiovascular regular rhythm Pulmonary nonlabored breathing Abdomen soft, mildly distended, no guarding rebound tenderness - Labs CBC & Chem 7: 11/06/23 09:33 11/08/23 08:08 Labs: Abnormal Lab Results - Last 24 Hours (Table) 11/07/23 11/07/23 11/08/23 Range/Units 16:37 20:53 00:18 Sodium (137-145) mmol/L BUN (9-20) mg/dL Glucose (74-99) mg/dL POC Glucose (mg/dL) 144 H 138 H 118 H (70-110) mg/dL Calcium (8.4-10.2) mg/dL AST (17-59) U/L Alkaline Phosphatase (38-126) U/L Total Protein (6.3-8.2) g/dL Albumin (3.5-5.0) g/dL 11/08/23 11/08/23 11/08/23 Range/Units 06:11 08:08 11:42 Sodium 131 L (137-145) mmol/L BUN 25 H (9-20) mg/dL Glucose 127 H (74-99) mg/dL POC Glucose (mg/dL) 137 H 129 H (70-110) mg/dL Calcium 8.1 L (8.4-10.2) mg/dL AST 16 L (17-59) U/L Alkaline Phosphatase 211 H (38-126) U/L Total Protein 5.9 L (6.3-8.2) g/dL Albumin 2.6 L (3.5-5.0) g/dL Microbiology - Last 24 Hours (Table) 11/05/23 15:56 Blood Culture - Preliminary Blood 11/06/23 09:33 Blood Culture - Preliminary Blood 11/04/23 17:12 Catheter Tip Culture - Final Picc Line Courtney species, not albicans Assessment and Plan Assessment: 1. Distal colonic obstruction noted on CAT scan 2. Small bowel obstruction status post lysis of adhesions on 10/16/2023 3. History of perforated small bowel 4. Severe protein malnutrition 5. Chronic constipation 6. Dehydration 7. Prior history of tracheostomy and mandibular cancer 8. History of marijuana use. 9. Expected ileus 10. Iron deficiency anemia 11. Underweight, BMI 16.5 12. Supraventricular tachycardia 13. MRSA DEBORA drain fluid 14. Possible pneumonia 15. Pressure ulcer of the coccyx self-induced due to patient's choice of immobility Plan Given the patient's presentation technologist diarrhea however this could be overflow we will give times one suppository. Pending hospital course patient may undergo surgery on Friday
[2023-11-08 16:58] LABS: Glucose,Whole Blood 110 mg/dL (70-110)
[2023-11-08 20:14] LABS: Glucose,Whole Blood 131 mg/dL (70-110)
[2023-11-09 00:07] LABS: Glucose,Whole Blood 132 mg/dL (70-110)
[2023-11-09 06:10] LABS: Glucose,Whole Blood 157 mg/dL (70-110)
[2023-11-09 10:19] LABS: Anisocytosis Slight; HGB 8.4 gm/dL (13.0-17.5); Hypochromasia Moderate; MCH 23.2 pg (25.0-35.0); MCHC 29.8 g/dL (31.0-37.0); MCV 77.8 fL (80.0-100.0); Microcytosis Slight; Platelet Count 646 k/uL (150-450); WBC 15.9 k/uL (3.8-10.6)
--- NOTE | 2023-11-09 10:28 | P.PN ---
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 He completed multiple days of IV antibiotics and discharged home on PO Augmentin and DEBORA drain. He presented to the emergency department on 10/09/2023 with a chief complaint of increased abdominal pain, abdominal distention and multiple episodes of bilious vomiting. Upon arrival in the emergency department, patient underwent full evaluation. Vital signs upon arrival showed BP 145/95, HR 101, RR 18, T 90 7.8F, 100% on RA. CBC showed WBC count 18.5, hemoglobin 10.6, hematocrit 33.2, MCV 79, platelet 634. CMP showed sodium 134, bicarb 20, creati nine 0.48, glucose 167, albumin 2.9. Lipase 473. Lactic acid 1.4. CT AP was completed revealing diffuse SB dilation with bowel containing gas, feces, and fluid suspicious for ileus versus small bowel obstruction, drainage catheter in place, and chronic pancreatitis changes. Patient was admitted to general surgery team and [facility] was consulted for medical management of this patient. DEBORA drain cultures positive for MRSA and Enterococcus, completing a course of Vancomycin and Unasyn. Patient failed conservative management of small bowel obstruction and was taken for open laparotomy with lysis of adhesions and resection of small bowel tumor with wound VAC placement on 10/16/2023. Pathology negative for histopathologic changes and negative for malignancy. Patient with postoperative ileus resulting in nausea and vomiting and reinsertion of NG tube on 10/26/2023 and again removal of NG tube on 10/29/2023. On the evening of 11/02/2023 patient was receiving blood transfusion and spiked an Tmax of 101.6 F with heart rate 130s. Blood cultures were obtained and patient was started back on IV antibiotics with vancomycin and transferred to [facility] for closer monitoring. On 11/03/2023 patient continued to have incontinent stools and underwent a fluoroscopic small bowel follow-through again revealing severe obstruction versus ileus. BCx 11/02 came back positive for Courtney. Patient was started on Fluconazole and Vancomycin discontinued. PICC line discontinued and sent for culture confirms yeast species. CTAP confirming multiple dilated loops of bowel with air fluid. Patient will likely need to go back to the OR at some point. 11/04 Patient was seen and examined. Nutrition include TPN. Antibiotics include Vancomycin (D3) and antifungal Fluconazole (D2). Started on Relistor on 11/03- 11/05. Also on Reglan IV. KUB done yesterday showed contarst now passed into the colon, ileus versus partial obstruction. CMP Na 130, bicarb 20, Cr 0.54, glu 132, Ca 8, alk phos 237, alb 2.5. Mag 1.8. Phos 3.6. ID discontinued Vancomycin today. 11/05 Patient was seen and examined. Tolerating CLD with no N/V. Small BM as well. However, abdomen very distended. Continued on antifungal Fluconazole (D3). Discussed with Corazon, plans for CT AP today. CBC Hg 9.3 Hct 32.7. CMP Na 133, BUN 21, Cr 0.57, glu 147, Ca 7.9, alk phos 212, alb 2.5. CRP 15.9. Mag 2. Phos 4.4. 11/06 Patient was seen and examined. CT AP done yesterday shows multiple dilated loops of bowel with air fluid. Discussed with Corazon, there is a possibility he may need another surgery. Continued on antifungal Fluconazole (D4). CMP Na 131, BUN 26, glu 115, Ca 8.3, alk phos 191, alb 2.7. Mag 2.2. Phos 4.0. 11/07 Patient was seen and examined. Discussed with Dr. Blood yesterday, no lung mass appreciated, likely atelectasis, will discontinue Pulmonary consult. Repeat BCx from 11/04 and 11/05 negative so far. Continued on antifungal Fluc onazole (D5). Currently receiving TPN through port. Plans for possible OR at some point. CMP Na 131, BUN 25, glu 127, Ca 8.1, AST 16, alk phos 211, alb 2.6. Mag 2.2. Phos 3.9. 11/08 Patient was seen and examined. Sleeping comfortably. Received suppository yesterday ordered by surgery. Repeat BCx from 11/04 and 11/05 negative so far. Continued on antifungal Fluconazole (D6). Currently receiving TPN through port. Discussed with Dr. Easton, plans for possible OR next week if patient agreeable. CBC WBC 15.9 Hg 8.4 [address] 646[address] CMP Mag and Phos pending. General: no distress, appears at stated age Derm: warm, dry Head: atraumatic, normocephalic, symmetric Eyes: EOMI, no lid lag, anicteric sclera Mouth: no lip lesion, mucus membranes moist Cardiovascular: S1S2 tachy, no murmur Lungs: Decreased BS bilateral, no rhonchi, no rales , no accessory muscle use Abdominal: distended, nontender to palpation, postsurgical incision midline, sluggish BS Ext: no gross muscle atrophy, no edema, no contractures Neuro: No focal neurologic deficits Psych: Alert and oriented Based on my assessment of this patient, this patient meets a high complexity level of care. Patient has an acute diagnosis of SBO status post open laparotomy with lysis of adhesions and resection of small bowel tumor on 10/16/2023 complicated with recurrent ileus versus SBO and fever that poses a threat to life or bodily function. Courtney bacteremia: Confirmed with BCx and PICC line Cx. Fluconazole 400 mg IV QD 11/03. Repeat BCx until negative. Sinus tachycardia: Echo EF 60-65% small pericardial effusion. Venous doppler negative for DVT. Saturating on RA, low probability for PE. Metoprolol 50 mg PO BID. MRSA + Enterococcus infection from DEBORA drain: Completed course of Unasyn and Vancomycin from 10/10-10/31. Restarted on vancomycin since fever from 11/02-11/04. Recurrent postoperative ileus: Reglan 10 mg IVP Q6H scheduled for persistent nausea and to increase bowel motility. Relistor x 2 doses started on 11/03. Recurrent small bowel obstruction requiring open laparotomy with lysis of adhesions and resection of small bowel tumor on 10/16/2023 Retroperitoneal mass: Pathology negative for malignancy. History of GERD with erosive esophagitis: Protonix 40 mg IV QD. History of gastritis: Protonix as above. Elevated lipase with history of chronic pancreatitis Severe protein calorie malnutrition with BMI of 16.9 kg/m: Dietitian following managing TPN and lipids. Acute postoperative blood loss anemia on anemia of chronic disease: Status post ferrlecit x 3 days. Status post 1 PRBC /. Transfuse if Hg < 7. Thrombocytosis Resolved: HypoK, HypoMag CODE STATUS: FULL CODE. DVT Prophylaxis: Heparin SQ GI Prophylaxis: Protonix 40 mg IVP daily Designated medical POA if patient is not able to make medical decisions for themselves: I have reviewed the following call center consultant notes: ID, Surgery note. I have reviewed the results of the following tests: CBC I have ordered the following tests: CMP, Mag, Phos ordered daily. I have discussed the care of this patient with the following independent historian: I have independently interpreted the following test below: I have discussed the management of this patient with the following physician: Discussed with Dr. Easton Objective - Vital Signs Vital signs: Vital Signs Temp 98.4 F 11/08/23 20:20 Pulse 130 H 11/09/23 04:20 Resp 18 11/09/23 04:20 BP 128/88 11/09/23 04:20 Pulse Ox 92 L 11/09/23 04:20 FiO2 Intake & Output 11/08/23 11/09/23 11/09/23 18:59 06:59 18:59 Intake Total 1077 222 Output Total 402 1025 Balance 675 -803 Intake: Intake, IV Titration 1077 Amount Mvi, Adult No.4 with Vit 1077 K 10 ml Trace (Conc-1Ml/ Dose) 1 ml Sodium Chloride 4Meq/ml Vial 56 meq Sodium Acetate 60 meq Potassium Acetate 12 meq Calcium Gluconate 1 gm Magnesium Sulfate gm 2 gm Potassium Phosphate 6 mmol In Amino Acids 5 %/ Dextrose 20 % 1,000 ml @ 70 mls/hr IV .BY DURATION [facility] Rx#:[id number] Oral 222 Output: Urine 400 775 Stool 2 Emesis 250 Other: Voiding Method Urinal Urinal # Voids 2 1 - Labs CBC & Chem 7: 11/09/23 08:24 11/08/23 08:08 Labs: Abnormal Lab Results - Last 24 Hours (Table) 11/08/23 11/08/23 11/08/23 Range/Units 08:08 11:42 20:12 Sodium 131 L (137-145) mmol/L BUN 25 H (9-20) mg/dL Glucose 127 H (74-99) mg/dL POC Glucose (mg/dL) 129 H 131 H (70-110) mg/dL Calcium 8.1 L (8.4-10.2) mg/dL AST 16 L (17-59) U/L Alkaline Phosphatase 211 H (38-126) U/L Total Protein 5.9 L (6.3-8.2) g/dL Albumin 2.6 L (3.5-5.0) g/dL 11/09/23 11/09/23 Range/Units 00:05 06:09 Sodium (137-145) mmol/L BUN (9-20) mg/dL Glucose (74-99) mg/dL POC Glucose (mg/dL) 132 H 157 H (70-110) mg/dL Calcium (8.4-10.2) mg/dL AST (17-59) U/L Alkaline Phosphatase (38-126) U/L Total Protein (6.3-8.2) g/dL Albumin (3.5-5.0) g/dL Microbiology - Last 24 Hours (Table) 11/05/23 15:56 Blood Culture - Preliminary Blood 11/06/23 09:33 Blood Culture - Preliminary Blood
[2023-11-09 10:53] LABS: ALT 15 U/L (4-49); AST 21 U/L (17-59); African American GFR (CKD) >90 (>60 ml/min/1.73 sqM); Albumin 2.8 g/dL (3.5-5.0); Alkaline Phosphatase 333 U/L (38-126); Anion Gap 12 mmol/L; Blood Urea Nitrogen 26 mg/dL (9-20); Calcium 8.2 mg/dL (8.4-10.2); Carbon Dioxide 20 mmol/L (22-30); Chloride 100 mmol/L (98-107); Glucose 121 mg/dL (74-99); Magnesium 2.2 mg/dL (1.6-2.3); Non-African American GFR(CKD) >90 (>60 ml/min/1.73 sqM); Potassium 4.5 mmol/L (3.5-5.1); Sodium 132 mmol/L (137-145); Total Bilirubin 0.3 mg/dL (0.2-1.3); Total Protein 6.2 g/dL (6.3-8.2)
--- NOTE | 2023-11-09 11:34 | P.PN ---
Subjective Progress Note Date: 11/09/23 CHIEF COMPLAINT: Bowel obstruction HISTORY OF PRESENT ILLNESS: The patient is a 43-year-old male status post exploratory laparotomy with lysis of adhesions for small bowel obstruction, 10/16/2023. He now has large bowel obstruction of unclear etiology. He reports passing large flatus and having bowel movement within 1 hour of my assessment. "I feel better today." He can only tolerate minimal amounts of clear liquids. He had emesis in the last 24 hrs. ROS: No fevers or chills. No new chest pain. No productive sputum PHYSICAL EXAM: VITAL SIGNS: Reviewed CONSTITUTIONAL: Well developed and in no acute distress. EYES: Conjuctivae without sclera icterus. Extraocular movements grossly intact. HEAD, EARS, NOSE, THROAT: Moist buccal mucosa. Head is atraumatic, normocephalic. Hears conversational speech. RESPIRATORY: Non-labored respirations and equal bilateral excursions. CARDIOVASCULAR: Palpable 2+ radial pulses. ABDOMEN: No peritonitis. Decreased abdominal distention but still moderate no longer severe. MUSCULOSKELETAL: No gross deformity of the lower extremities noted. No cl ubbing. No cyanosis. SKIN: Good skin turgor. Well perfused. NEUROLOGIC: Cranial nerves II through XII grossly intact. No focal or lateralizing signs. PSYCH: Appropriate affect. Alert and oriented to person, place and time. CLINICAL LABS: Reviewed. Hemoglobin 9.3. White blood cell count now elevated. ASSESSMENT: 1. Small bowel obstruction 2. History of perforated small bowel 3. Severe protein malnutrition 4. Chronic constipation 5. Dehydration 6. Prior history of tracheostomy and mandibular cancer 7. History of marijuana use. 8. Expected ileus 9. Hypomagnesia 10. Iron deficiency anemia 11. Underweight, BMI 16.5 12. Supraventricular tachycardia 13. Large bowel obstruction 14. Abnormal CT scan for lung mass PLAN: 1. Extensive discussion with nurse present about new large bowel obstruction as a cause of his symptoms. Area of concern limited to the left upper nader drant/sigmoid colon per review of past barium enema and culminated CT scans. 2. Placement of NG tube advised pending patients acceptance. 3. Ideally colonoscopy for visualization of mass/blockage described however currently not feasible with the severity of his abdominal distention. 4. Temporary ileostomy via minimally invasive technique also reviewed but requires abdominal decompression with NG tube. Best chance for expedited recovery, discharge, and avoidance of laparotomy. 5. Lastly, open partial colectomy, possible ostomy described. 6. Care plan and options reviewed, pending patient's decision. 7. Abdominal xray ordered. Objective - Vital Signs Vital signs: Vital Signs Temp 98.8 F 11/09/23 08:15 Pulse 121 H 11/09/23 08:15 Resp 16 11/09/23 08:15 BP 105/76 11/09/23 08:15 Pulse Ox 96 11/09/23 08:15 FiO2 Intake & Output 11/08/23 11/09/23 11/09/23 18:59 06:59 18:59 Intake Total 1077 222 Output Total 402 1025 1 Balance 675 -803 -1 Intake: Intake, IV Titration 1077 Amount Mvi, Adult No.4 with Vit 1077 K 10 ml Trace (Conc-1Ml/ Dose) 1 ml Sodium Chloride 4Meq/ml Vial 56 meq Sodium Acetate 60 meq Potassium Acetate 12 meq Calcium Gluconate 1 gm Magnesium Sulfate gm 2 gm Potassium Phosphate 6 mmol In Amino Acids 5 %/ Dextrose 20 % 1,000 ml @ 70 mls/hr IV .BY DURATION [facility] Rx#:[id number] Oral 222 Output: Urine 400 775 Stool 2 1 Emesis 250 Other: Voiding Method Urinal Urinal Urinal # Voids 2 1 - Labs CBC & Chem 7: 11/09/23 08:24 11/09/23 08:24 Labs: Abnormal Lab Results - Last 24 Hours (Table) 11/08/23 11/08/23 11/09/23 Range/Units 11:42 20:12 00:05 WBC (3.8-10.6) k/uL RBC (4.30-5.90) m/uL Hgb (13.0-17.5) gm/dL Hct (39.0-53.0) % MCV (80.0-100.0) fL MCH (25.0-35.0) pg MCHC (31.0-37.0) g/dL RDW (11.5-15.5) % Plt Count (150-450) k/uL Sodium (137-145) mmol/L Carbon Dioxide (22-30) mmol/L BUN (9-20) mg/dL Glucose (74-99) mg/dL POC Glucose (mg/dL) 129 H 131 H 132 H (70-110) mg/dL Calcium (8.4-10.2) mg/dL Alkaline Phosphatase (38-126) U/L Total Protein (6.3-8.2) g/dL Albumin (3.5-5.0) g/dL 11/09/23 11/09/23 11/09/23 Range/Units 06:09 08:24 08:24 WBC 15.9 H (3.8-10.6) k/uL RBC 3.60 L (4.30-5.90) m/uL Hgb 8.4 L (13.0-17.5) gm/dL Hct 28.0 L (39.0-53.0) % MCV 77.8 L (80.0-100.0) fL MCH 23.2 L (25.0-35.0) pg MCHC 29.8 L (31.0-37.0) g/dL RDW 18.0 H (11.5-15.5) % Plt Count 646 H (150-450) k/uL Sodium 132 L (137-145) mmol/L Carbon Dioxide 20 L (22-30) mmol/L BUN 26 H (9-20) mg/dL Glucose 121 H (74-99) mg/dL POC Glucose (mg/dL) 157 H (70-110) mg/dL Calcium 8.2 L (8.4-10.2) mg/dL Alkaline Phosphatase 333 H (38-126) U/L Total Protein 6.2 L (6.3-8.2) g/dL Albumin 2.8 L (3.5-5.0) g/dL Microbiology - Last 24 Hours (Table) 11/05/23 15:56 Blood Culture - Preliminary Blood 11/06/23 09:33 Blood Culture - Preliminary Blood
[2023-11-09 11:38] LABS: Glucose,Whole Blood 174 mg/dL (70-110)
--- NOTE | 2023-11-09 13:02 | XR ---
EXAMINATION TYPE: XR abdomen 2V DATE OF EXAM: 11/09/2023 11:51 AM CLINICAL INDICATION:Male, 43 years old with history of Bowel obstruction, abdominal pain; H COMPARISON: Abdomen x-ray 11/05/2023, CT 11/06/2023 TECHNIQUE: Supine and upright views of the abdomen were obtained. FINDINGS: Redemonstration of multiple gas-distended loops of bowel, up to 6.4 cm diameter, concerning for obstr uctive process versus severe ileus. There is some residual contrast seen in the right colon. Overall, the pattern has not significantly changed. No pathologic calcifications are visible. Again noted are skin laurence over the abdomen suggesting recent surgery. Osseous structures appear grossly unchanged . Patchy opacities suggested in the right more than left lung base. IMPRESSION: 1. Overall similar bowel gas pattern, with gaseous distention of multiple bowel loops. Consider micki re ileus versus obstructive process. 2. No free air detected. 3. Patchy opacities suggested in the right more than left lung base, may represent pneumonia. Recomm end clinical correlation and radiographic follow-up.
--- NOTE | 2023-11-09 13:30 | P.PN ---
Subjective Progress Note Date: 11/08/23 Principal diagnosis: Reason for follow-up is fever/ileus/obstruction Patient is a 43-year-old -Sw[place] male past medical history significant for right-sided jaw cancer for the patient be treated with chemoradiation therapy, patient also have a history of alcohol abuse possible acute and chronic pancreatitis patient recently did have a prolonged hospital stay for bowel obstruction and this patient who did have a perforated small bowel and status post resection on 09/06/2023 did have prolonged ileus, now presenting back to the hospital abdominal pain and vomiting has been diagnosed with ileus/obstruction.Patient is status post open expiratory laparotomy with lysis o f adhesion excision of small bowel tumor x 3 closure of decompressive enterostomy and drainage of abdominal ascites completed on 10/16/2023. On today's evaluation that is 11/08/2023, patient did have a low-grade fever 100 F yesterday at noon however has been afebrile, patient is breathing comfortably and is currently on room air, patient denies having any significant cough no chest pain shortness of breath, patient denies nausea vomiting complaining of abdominal discomfort and fullness hardly any bowel movement No CBC was done today creatinine 0.70 Objective - Vital Signs Vital signs: Vital Signs Temp 97.9 F 11/08/23 08:20 Pulse 81 11/08/23 08:20 Resp 16 11/08/23 08:20 BP 111/86 11/08/23 08:20 Pulse Ox 94 L 11/08/23 08:20 FiO2 Intake & Output 11/07/23 11/08/23 11/08/23 18:59 06:59 18:59 Intake Total 490 Output Total 200 325 1 Balance 290 -325 -1 Weight 45.8 kg Intake: Oral 490 Output: Urine 200 325 Stool 1 Other: Voiding Method Urinal Urinal - Exam GENERAL DESCRIPTION: Middle-age male up in the chair in no distress RESPIRATORY SYSTEM: Unlabored breathing , decreased breath sounds at bases HEART: S1 S2 regular rate and rhythm , ABDOMEN: Soft , mild distention and tenderness EXTREMITIES: No edema feet - Labs CBC & Chem 7: 11/09/23 08:24 11/09/23 08:24 Labs: Abnormal Lab Results - Last 24 Hours (Table) 11/07/23 11/07/23 11/08/23 Range/Units 16:37 20:53 00:18 Sodium (137-145) mmol/L BUN (9-20) mg/dL Glucose (74-99) mg/dL POC Glucose (mg/dL) 144 H 138 H 118 H (70-110) mg/dL Calcium (8.4-10.2) mg/dL AST (17-59) U/L Alkaline Phosphatase (38-126) U/L Total Protein (6.3-8.2) g/dL Albumin (3.5-5.0) g/dL 11/08/23 11/08/23 11/08/23 Range/Units 06:11 08:08 11:42 Sodium 131 L (137-145) mmol/L BUN 25 H (9-20) mg/dL Glucose 127 H (74-99) mg/dL POC Glucose (mg/dL) 137 H 129 H (70-110) mg/dL Calcium 8.1 L (8.4-10.2) mg/dL AST 16 L (17-59) U/L Alkaline Phosphatase 211 H (38-126) U/L Total Protein 5.9 L (6.3-8.2) g/dL Albumin 2.6 L (3.5-5.0) g/dL Microbiology - Last 24 Hours (Table) 11/05/23 15:56 Blood Culture - Preliminary Blood 11/06/23 09:33 Blood Culture - Preliminary Blood 11/04/23 17:12 Catheter Tip Culture - Final Picc Line Courtney species, not albicans 11/03/23 09:37 Blood Culture Gram Stain - Final Blood Blood Culture - Final Courtney parapsilosis group Molecular ID 11/02/23 22:49 Blood Culture Gram Stain - Final Blood Blood Culture - Final Courtney parapsilosis group Assessment and Plan (1) Leukocytosis Current Visit: Yes Status: Acute Code(s): D72.829 - ELEVATED WHITE BLOOD CELL COUNT, UNSPECIFIED SNOMED Code(s): 667655653 (2) Ileus Current Visit: Yes Status: Acute Code(s): K56.7 - ILEUS, UNSPECIFIED SNOMED Code(s): 797281543 (3) MRSA (methicillin resistant staph aureus) culture positive Current Visit: Yes Status: Acute Code(s): Z22.322 - CARRIER OR SUSPECTED CARRIER OF METHICILLIN RESIS STAPH SNOMED Code(s): 051988467 (4) Candidemia Current Visit: Yes Status: Acute Code(s): B37.7 - CANDIDAL SEPSIS SNOMED Code(s): 313154305 Plan: 1patient presented hospital with sepsis in this patient who did have an elevated white count tachycardia source likely abdominal pain this patient did have predominantly abdominal symptoms with abdominal pain and vomiting CT has been suggestive of ileus/obstruction and will likely need to cover for the enteric gram-negative both aerobes and anaerobes 2- cultures from the [facility] grew MRSA as well as Enterococcus, for the patient received adequate Unasyn and vancomycin therapy 3-patient is status post extensive abdominal surgery did not mention any perforation or abscess no cultures 4- patient did have a new fever on 11/02/2023 with blood culture positive for Courtney parapsilosis PICC line was discontinued and the catheter positive for yeast as well patient also have a port from which blood culture has been obtained which are so far negative 5-patient to continue with the IV Diflucan and monitor clinical course closely Dictation was produced using [employer] dictation software. please excuse any gr ammatical, word or spelling errors. Time with Patient: Less than 30
--- NOTE | 2023-11-09 13:32 | P.PN ---
Subjective Progress Note Date: 11/09/23 Principal diagnosis: Reason for follow-up is fever/ileus/obstruction Patient is a 43-year-old -[place] male past medical history significant for right-sided jaw cancer for the patient be treated with chemoradiation therapy, patient also have a history of alcohol abuse possible acute and chronic pancreatitis patient recently did have a prolonged hospital stay for bowel obstruction and this patient who did have a perforated small bowel and status post resection on 09/06/2023 did have prolonged ileus, now presenting back to the hospital abdominal pain and vomiting has been diagnosed with ileus/obstruction.Patient is status post open expiratory laparotomy with lysis o f adhesion excision of small bowel tumor x 3 closure of decompressive enterostomy and drainage of abdominal ascites completed on 10/16/2023. On today's evaluation that is 11/09/2023,the patient denies any fever or any chills, patient is breathing comfortably on room air, the patient denies chest pain shortness of breath and no significant cough, patient did complain of abdominal fullness and discomfort nausea but no vomiting no significant bowel movement Patient white count is 15.9 today creatinine 0.75 blood culture repeat has been negative Objective - Vital Signs Vital signs: Vital Signs Temp 98.8 F 11/09/23 08:15 Pulse 95 11/09/23 11:15 Resp 16 11/09/23 11:15 BP 96/52 11/09/23 11:15 Pulse Ox 94 L 11/09/23 11:15 FiO2 Intake & Output 11/08/23 11/09/23 11/09/23 18:59 06:59 18:59 Intake Total 1077 222 Output Total 402 1025 201 Balance 675 803 -201 Intake: Intake, IV Titration 1077 Amount Mvi, Adult No.4 with Vit 1077 K 10 ml Trace (Conc-1Ml/ Dose) 1 ml Sodium Chloride 4Meq/ml Vial 56 meq Sodium Acetate 60 meq Potassium Acetate 12 meq Calcium Gluconate 1 gm Magnesium Sulfate gm 2 gm Potassium Phosphate 6 mmol In Amino Acids 5 %/ Dextrose 20 % 1,000 ml @ 70 mls/hr IV .BY DURATION [facility] Rx#:[id number] Oral 222 Output: Urine 400 775 200 Stool 2 1 Emesis 250 Other: Voiding Method Urinal Urinal Urinal # Voids 2 1 - Exam GENERAL DESCRIPTION: Middle-age male up in the chair in no distress RESPIRATORY SYSTEM: Unlabored breathing , decreased breath sounds at bases HEART: S1 S2 regular rate and rhythm , ABDOMEN: Soft , mild distention and tenderness EXTREMITIES: No edema feet - Labs CBC & Chem 7: 11/09/23 08:24 11/09/23 08:24 Labs: Abnormal Lab Results - Last 24 Hours (Table) 11/08/23 11/09/23 11/09/23 Range/Units 20:12 00:05 06:09 WBC (3.8-10.6) k/uL RBC (4.30-5.90) m/uL Hgb (13.0-17.5) gm/dL Hct (39.0-53.0) % MCV (80.0-100.0) fL MCH (25.0-35.0) pg MCHC (31.0-37.0) g/dL RDW (11.5-15.5) % Plt Count (150-450) k/uL Sodium (137-145) mmol/L Carbon Dioxide (22-30) mmol/L BUN (9-20) mg/dL Glucose (74-99) mg/dL POC Glucose (mg/dL) 131 H 132 H 157 H (70-110) mg/dL Calcium (8.4-10.2) mg/dL Alkaline Phosphatase (38-126) U/L Total Protein (6.3-8.2) g/dL Albumin (3.5-5.0) g/dL 11/09/23 11/09/23 11/09/23 Range/Units 08:24 08:24 11:36 WBC 15.9 H (3.8-10.6) k/uL RBC 3.60 L (4.30-5.90) m/uL Hgb 8.4 L (13.0-17.5) gm/dL Hct 28.0 L (39.0-53.0) % MCV 77.8 L (80.0-100.0) fL MCH 23.2 L (25.0-35.0) pg MCHC 29.8 L (31.0-37.0) g/dL RDW 18.0 H (11.5-15.5) % Plt Count 646 H (150-450) k/uL Sodium 132 L (137-145) mmol/L Carbon Dioxide 20 L (22-30) mmol/L BUN 26 H (9-20) mg/dL Glucose 121 H (74-99) mg/dL POC Glucose (mg/dL) 174 H (70-110) mg/dL Calcium 8.2 L (8.4-10.2) mg/dL Alkaline Phosphatase 333 H (38-126) U/L Total Protein 6.2 L (6.3-8.2) g/dL Albumin 2.8 L (3.5-5.0) g/dL Microbiology - Last 24 Hours (Table) 11/05/23 15:56 Blood Culture - Preliminary Blood 11/06/23 09:33 Blood Culture - Preliminary Blood Assessment and Plan (1) Leukocytosis Current Visit: Yes Status: Acute Code(s): D72.829 - ELEVATED WHITE BLOOD CELL COUNT, UNSPECIFIED SNOMED Code(s): 742228064 (2) Ileus Current Visit: Yes Status: Acute Code(s): K56.7 - ILEUS, UNSPECIFIED SNOMED Code(s): 624743048 (3) MRSA (methicillin resistant staph aureus) culture positive Current Visit: Yes Status: Acute Code(s): Z22.322 - CARRIER OR SUSPECTED CARRIER OF METHICILLIN RESIS STAPH SNOMED Code(s): 330990198 (4) Candidemia Current Visit: Yes Status: Acute Code(s): B37.7 - CANDIDAL SEPSIS SNOMED Code(s): 747252877 Plan: 1patient [facility] with sepsis in this patient who did have an elevated white count tachycardia source likely abdominal pain this patient did have predominantly abdominal symptoms with abdominal pain and vomiting CT has been suggestive of ileus/obstruction and will likely need to cover for the enteric gram-negative both aerobes and anaerobes 2- cultures from the [facility] grew MRSA as well as Enterococcus, for the patient received adequate Unasyn and vancomycin therapy 3-patient is status post extensive abdominal surgery did not mention any perforation or abscess no cultures 4- patient did have a new fever on 11/02/2023 with blood culture positive for Courtney parapsilosis PICC line was discontinued and the catheter positive for yeast as well patient also have a port from which blood culture has been obtained which are so far negative, patient is covered with IV Diflucan 5-patient noticed to have worsening of his white count and evidence of new large bowel obstruction possible abdominal source we will add Zosyn and monitor clinical course closely surgery is following the patient closely Dictation was produced using [employer] dictation software. please excuse any grammatical, word or spelling errors. Time with Patient: Less than 30
[2023-11-09] MEDS: PIPERACILLIN-TAZOBACTAM 3.375 GM in SODIUM CHLORIDE 0.9% 100 ML IVPB SCH (16:04)
[2023-11-09 16:41] LABS: Glucose,Whole Blood 91 mg/dL (70-110)
--- NOTE | 2023-11-09 18:15 | XR ---
EXAMINATION TYPE: XR chest 1V portable DATE OF EXAM: 11/09/2023 6:02 PM CLINICAL INDICATION:Male, 43 years old with history of Check NG tube placement; [facility] COMPARISON: Chest radiographs from 11/02/2023. TECHNIQUE: XR chest 1V portable Frontal view of the chest. FINDINGS: Lungs/Pleura: There is no evidence of pleural effusion, focal consolidation, or pneumothorax. Pulmonary vascularity: Unremarkable. Heart/mediastinum: Cardiomediastinal silhouette is unremarkable. Musculoskeletal: No acute osseous pathology. Other findings: None Lines/Tubes: Nasogastric tube with its distal tip and side-port projecting under the diaphragm. [id number] projecting over the right hemithorax with distal tip projecting over the superior vena cava. IMPRESSION: Nasogastric tube in appropriate position. Right midlung and lower lung airspace opacities. Color for pneumonia.
[2023-11-09] MEDS: 1: MVI, ADULT NO.4 WITH VIT K 10 ML, TRACE (CONC-1ML/DOSE) 1 ML, SODIUM CHLORIDE 4MEQ/ML IV SCH (23:13)
[2023-11-10 00:06] LABS: Glucose,Whole Blood 147 mg/dL (70-110)
[2023-11-10 06:08] LABS: Glucose,Whole Blood 146 mg/dL (70-110)
[2023-11-10 09:37] LABS: ALT 14 U/L (4-49); AST 18 U/L (17-59); African American GFR (CKD) >90 (>60 ml/min/1.73 sqM); Albumin 2.4 g/dL (3.5-5.0); Alkaline Phosphatase 246 U/L (38-126); Anion Gap 8 mmol/L; Blood Urea Nitrogen 21 mg/dL (9-20); Calcium 7.8 mg/dL (8.4-10.2); Carbon Dioxide 23 mmol/L (22-30); Chloride 102 mmol/L (98-107); Glucose 155 mg/dL (74-99); Magnesium 1.9 mg/dL (1.6-2.3); Non-African American GFR(CKD) >90 (>60 ml/min/1.73 sqM); Potassium 4.1 mmol/L (3.5-5.1); Sodium 133 mmol/L (137-145); Total Bilirubin 0.3 mg/dL (0.2-1.3); Total Protein 5.6 g/dL (6.3-8.2)
--- NOTE | 2023-11-10 10:14 | XR ---
EXAMINATION TYPE: XR chest 1V portable DATE OF EXAM: 11/10/2023 10:06 AM CLINICAL INDICATION:Male, 43 years old with history of NG placement; COMPARISON: Chest radiographs from 11/09/2023 TECHNIQUE: XR chest 1V portable Frontal view of the chest. FINDINGS: Lungs/Pleura: Similar right midlung airspace opacities. There is no evidence of pleural effusion, foc al consolidation, or pneumothorax. Pulmonary vascularity: Unremarkable. Heart/mediastinum: Cardiomediastinal silhouette is unremarkable. Musculoskeletal: No acute osseous pathology. Other findings: Gaseous distention of bowel in the lower abdomen with surgical clips. Lines/Tubes: Nasogastric tube with its distal tip and side-port projecting under the diaphragm. [id number] projecting over the right hemithorax with distal tip at the cavoatrial junction. IMPRESSION: 1. Appropriate placement of nasogastric tube. 2. Similar right midlung airspace opacities.
--- NOTE | 2023-11-10 11:37 | P.PN ---
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 He completed multiple days of IV antibiotics and discharged home on PO Augmentin and DEBORA drain. He presented to the emergency department on 10/09/2023 with a chief complaint of increased abdominal pain, abdominal distention and multiple episodes of bilious vomiting. Upon arrival in the emergency department, patient underwent full evaluation. Vital signs upon arrival showed BP 145/95, HR 101, RR 18, T 90 7.8F, 100% on RA. Labs were completed and revie wed CBC showed WBC count 18.5, hemoglobin 10.6, hematocrit 33.2, MCV 79, platelet 634. CMP showed sodium 134, bicarb 20, creatinine 0.48, glucose 167, albumin 2.9. Lipase 473. Lactic acid 1.4. CT abdomen and pelvis was completed revealing diffuse SB dilation with bowel containing gas, feces, and fluid suspicious for ileus versus small bowel obstruction, drainage catheter in place, and chronic pancreatitis changes. Patient reported having bowel movements despite abdominal distention and worsening pain. Patient was admitted to general surgery team and [facility] was consulted for medical management of this patient throughout hospitalization. DEBORA drain cultures positive for MRSA. Patient failed conservative management of small bowel obstruction and was taken for open laparotomy with lysis of adhesions and resection of small bowel tumor with wound VAC placement on 10/16/2023. Pathology sample was sent to lab for analysis and per pathology report, negative for histopathologic changes and negative for malignancy. Patient with postoperative ileus resulting in nausea and vomiting and reinsertion of NG tube on 10/26/2023 and again removal of NG tube on 10/29/2023. On the evening of 11/02/2023 patient was receiving blood transfusion and spiked an elevated temp as high as 101.6 F and tachycardia with heart rate 130s. Blood cultures were obtained and patient was started back on IV antibiotics with vancomycin and transferred to [facility] for closer monitoring. Blood cultures resulting positive for Courtney parapsilosis and patient was started on IV fluconazole 400 mg daily and Zosyn 3.375 g every 8 hours. On 11/03/2023 patient continued to have incontinent stools and underwent a fluoroscopic small bowel follow-through again revealing severe obstruction versus ileus. On 11/06/[address] abdomen and pelvis with contrast was completed revealing multiple dilated loops of bowel with air-fluid and concerns of possible distal colonic obstruction, chronic pancreatitis, and possible mass posterior medial left lung base. Patient with persistent nausea and vomiting and NG tube was reinserted on 11/09/2023. Physical exam: Patient seen and fully evaluated at bedside this morning. He was resting in bed. NG tube in place. Vital signs reviewed and stable. General: Nontoxic, no acute distress and appears older than stated age. Thin and frail. Derm: Skin warm and dry, normal coloration for ethnicity. Head: Atraumatic, normocephalic and symmetric. Eyes: EOMs intact, no lid lag, and anicteric sclera Mouth: no lip lesions, mucus membranes moist Cardiovascular: regular rate and rhythm with normal S1S2, no murmur, positive posterior tibial pulses bilaterally, and cap refill < 2 seconds. Lungs: Respirations even, regular, and unlabored on room air. Lungs CTA bilaterally, no rhonchi, no rales, no wheezing, and no accessory muscle usage. Abdominal: Abdomen distended. Postsurgical incision midline with dressing clean, dry, and intact. Abdominal binder in place. NG tube in place. Ext: ROM intact. No gross muscle atrophy, no edema, no contractures. Neuro: Speech clear, face symmetrical and CN II-XII grossly intact with no noted focal neuro deficits Psych: Alert and oriented to person, place, time, and situation. Appropriate and pleasant affect. Assessment and Plan of Care: Courtney parapsilosis bacteremia Leukocytosis -Blood cultures drawn 11/02/2023 positive for Courtney parapsilosis. -PICC line culture drawn 11/04/2023 positive for Courtney species, not albicans. -Repeat blood cultures drawn 11/05/2023 and 11/06/2023 showing no growth to date. -Patient to continue IV fluconazole 400 mg daily and Zosyn 3.375 g every 8 hours. -Infectious disease following, reviewed documentation in chart. Sinus tachycardia -Sinus tachycardia of unclear origin, possibly related to pain resulting from worsening postoperative ileus vs infection with bacteremia. -Cardiology evaluated and started patient on metoprolol 50 mg twice daily. -Infectious disease following and patient being treated for bacteremia as stated above. -General surgery following and managing postoperative ileus and pain. -Bilateral lower extremity venous Dopplers were completed negative for DVTs. -Echocardiogram completed revealing a preserved EF of 60 to 65% with small pericardial effusion without tamponade physiology. Recurrent postoperative ileus Recurrent small bowel obstruction requiring open laparotomy with lysis of adhesions and resection of small bowel tumor on 10/16/2023 Retroperitoneal mass History of GERD with erosive esophagitis History of gastritis Elevated lipase with history of chronic pancreatitis -Continue close monitoring of I's and O's, continue NG tube to low intermittent suction with close monitoring of gastric output. Documented gastric output over the past 24 hours is 750 cc. -Symptomatic care and pain management. Zofran 4 mg IVP every 8 hours as needed for nausea and/or vomiting -General surgery following and managing recurrent postoperative ileus -Continue Reglan 10 mg IVP every 6 hours scheduled and patient received 2 doses of Relistor to increase bowel motility. -Continue Protonix 40 mg IVP daily -Pathology sample was sent to lab for analysis and per pathology report, negative for histopathologic changes and negative for malignancy. Severe protein calorie malnutrition with BMI of 16.9 kg/m -Dietitian following managing TPN and lipids. MRSA infection, completed treatment -DEBORA drain site culture was positive for MRSA and group D enterococcus faecalis. -Infectious disease following. Patient completed extended antibiotic course with Unasyn and vancomycin for treatment of MRSA infection. -Blood cultures drawn 10/08/2023 showed no growth in 2 of 2 sets. Acute blood loss anemia on anemia of chronic disease. Hemoglobin stable at 8.4. Will continue to monitor and transfuse if needed for hemoglobin less than 7. Iron profile resulting showing total iron of 17, TIBC of 171, iron percentage 9.94, transferrin of 122, and ferritin of 366. Patient completed 3 day course of IV Ferrlecit 125 mg daily and started on ferrous sulfate 325 mg daily. Pyrexia isolated event during blood transfusion, possibly secondary to blood transfusion reaction vs infectious process -Transfusion was stopped and tubing/bag sent to blood bank for analysis. -Infectious process also being ruled out, blood cultures drawn and patient started on IV antibiotics with vancomycin per infectious disease. Pressure ulcer to coccyx present on arrival, worsening. Wound care following for management. Thrombocytosis. Believed to be reactive secondary to postoperative ileus. Platelet count 646. . Hypokalemia, resolved and pt is on TPN/Lipids Hypomagnesemia, resolved and pt is on TPN/Lipids History of small bowel perforation status post emergent small bowel resection with [id number] duodenojejunostomy 09/06/2023 Data and imaging reviewed: Vital signs reviewed. BP 119/79, HR 123, RR 18, T-98,9, and SpO2 of 95% on room air. Morning labs reviewed.. Showing sodium 133, elevated BUN of 21, glucose 155, magnesium 1.9, and elevated alkaline phosphatase of 246. Documented gastric output from NG tube over the past 24 hours is 750 cc. Urinary output over the past 24 hours 1200 cc. Repeat chest x-ray completed this morning showing appropriate placement of NG tube with similar right midlung airspace opacities. CODE STATUS: FULL CODE DVT Prophylaxis: Lovenox SQ GI Prophylaxis: Protonix Thank you for allowing us to participate in the care of this pleasant patient. Do not hesitate to contact us with questions. Someone can be reached from the [facility] hospitalist group all hours of the day at [phone] or via perfect serve. Patient was seen independently by Nurse Pracitioner. This document was prepared using [employer] dictation software. Please allow for errors in boat officer, while rare they do occur. I reviewed the documentation as provided by the CATRINA above, who is the original author of this note. I agree with the documented assessment and plan, with the following changes: none Objective - Vital Signs Vital signs: Vital Signs Temp 98.1 F 11/09/23 20:15 Pulse 111 H 11/10/23 03:40 Resp 16 11/10/23 03:40 BP 131/79 11/10/23 03:40 Pulse Ox 99 11/10/23 03:40 FiO2 Intake & Output 11/09/23 11/10/23 11/10/23 18:59 06:59 18:59 Output Total 1202 750 Balance -1202 -750 Output: Gastric Drainage 750 Urine 450 750 Stool 2 Other: Voiding Method Urinal Urinal # Voids 2 - Labs CBC & Chem 7: 11/13/23 09:58 11/14/23 09:38 Labs: Abnormal Lab Results - Last 24 Hours (Table) 11/09/23 11/09/23 11/09/23 Range/Units 08:24 08:24 11:36 WBC 15.9 H (3.8-10.6) k/uL RBC 3.60 L (4.30-5.90) m/uL Hgb 8.4 L (13.0-17.5) gm/dL Hct 28.0 L (39.0-53.0) % MCV 77.8 L (80.0-100.0) fL MCH 23.2 L (25.0-35.0) pg MCHC 29.8 L (31.0-37.0) g/dL RDW 18.0 H (11.5-15.5) % Plt Count 646 H (150-450) k/uL Sodium 132 L (137-145) mmol/L Carbon Dioxide 20 L (22-30) mmol/L BUN 26 H (9-20) mg/dL Glucose 121 H (74-99) mg/dL POC Glucose (mg/dL) 174 H (70-110) mg/dL Calcium 8.2 L (8.4-10.2) mg/dL Alkaline Phosphatase 333 H (38-126) U/L Total Protein 6.2 L (6.3-8.2) g/dL Albumin 2.8 L (3.5-5.0) g/dL 11/10/23 11/10/23 Range/Units 00:05 06:06 WBC (3.8-10.6) k/uL RBC (4.30-5.90) m/uL Hgb (13.0-17.5) gm/dL Hct (39.0-53.0) % MCV (80.0-100.0) fL MCH (25.0-35.0) pg MCHC (31.0-37.0) g/dL RDW (11.5-15.5) % Plt Count (150-450) k/uL Sodium (137-145) mmol/L Carbon Dioxide (22-30) mmol/L BUN (9-20) mg/dL Glucose (74-99) mg/dL POC Glucose (mg/dL) 147 H 146 H (70-110) mg/dL Calcium (8.4-10.2) mg/dL Alkaline Phosphatase (38-126) U/L Total Protein (6.3-8.2) g/dL Albumin (3.5-5.0) g/dL Microbiology - Last 24 Hours (Table) 11/06/23 09:33 Blood Culture - Preliminary Blood
[2023-11-10 11:44] LABS: Glucose,Whole Blood 169 mg/dL (70-110)
--- NOTE | 2023-11-10 11:59 | P.PN ---
Subjective Progress Note Date: 11/10/23 CHIEF COMPLAINT: Recurrent small bowel obstruction HISTORY OF PRESENT ILLNESS: Patient is status post open exploratory laparotomy with lysis of adhesions, excision of small bowel tumor x 3 closure of decom pressive enterostomy, drainage of abdominal ascites and partial omentectomy on 10/16/23. Patient now with large bowel obstruction of unclear etiology. He reports flatus and loose stools. He does have NG tube in place had 1 L out. NG tube had not been in appropriate position. It has been advanced and in good position per chest x-ray. Tachycardic. PHYSICAL EXAM: VITAL SIGNS: Reviewed GENERAL: Well-developed in no acute distress. HEENT: No sclera icterus. Extraocular movements grossly intact. Moist buccal mucosa. Head is atraumatic, normocephalic. Hears conversational speech. No nasal drainage. NECK: Supple without lymphadenopathy. CHEST: Non-labored respirations and equal bilateral excursions. CARDIOVASCULAR: Palpable 2+ radial pulses. ABDOMEN: distended. Tender at incision site. Incisional dressing clean dry and intact. MUSCULOSKELETAL: No clubbing or cyanosis. NEUROLOGIC: No focal or lateralizing signs. Cranial nerves II through XII grossly intact. PSYCH: Appropriate affect. Alert and oriented to person, place and time. SKIN: Stage II coccyx ulcer ASSESSMENT: 1. Distal colonic obstruction 2. Small bowel obstruction status post lysis of adhesions on 10/16/2023 3. History of perforated small bowel 4. Severe protein malnutrition 5. Chronic constipation 6. Dehydration 7. Prior history of tracheostomy and mandibular cancer 8. History of marijuana use. 9. Expected ileus 10. Iron deficiency anemia 11. Underweight, BMI 16.5 12. Supraventricular tachycardia 13. MRSA DEBORA drain fluid 14. Possible pneumonia 15. Pressure ulcer of the coccyx self-induced due to patient's choice of immobility PLAN: -Patient scheduled for colonoscopy on 11/12/[address] Easton to evaluate the colon -Will give a Nulytely bowel prep 1 L today and 1 L tomorrow -Continue NG tube for decompression -Keep patient n.p.o. -Continue TPN for nutrition support -Continue antibiotics -Encourage patient ambulate -DVT prophylaxis Heparin Physician Cut Out Stitcher note has been reviewed by physician. Signing provider agrees with the documented findings, assessment, and plan of care. Objective - Vital Signs Vital signs: Vital Signs Temp 98.9 F 11/10/23 09:10 Pulse 123 H 11/10/23 09:10 Resp 18 11/10/23 09:10 BP 119/79 11/10/23 09:10 Pulse Ox 95 11/10/23 09:10 FiO2 Intake & Output 11/09/23 11/10/23 11/10/23 18:59 06:59 18:59 Output Total 1202 750 Balance -1202 -750 Output: Gastric Drainage 750 Urine 450 750 Stool 2 Other: Voiding Method Urinal Urinal Urinal # Voids 2 - Labs CBC & Chem 7: 11/09/23 08:24 11/10/23 08:31 Labs: Abnormal Lab Results - Last 24 Hours (Table) 11/10/23 11/10/23 11/10/23 Range/Units 00:05 06:06 08:31 Sodium 133 L (137-145) mmol/L BUN 21 H (9-20) mg/dL Glucose 155 H (74-99) mg/dL POC Glucose (mg/dL) 147 H 146 H (70-110) mg/dL Calcium 7.8 L (8.4-10.2) mg/dL Alkaline Phosphatase 246 H (38-126) U/L Total Protein 5.6 L (6.3-8.2) g/dL Albumin 2.4 L (3.5-5.0) g/dL 11/10/23 Range/Units 11:43 Sodium (137-145) mmol/L BUN (9-20) mg/dL Glucose (74-99) mg/dL POC Glucose (mg/dL) 169 H (70-110) mg/dL Calcium (8.4-10.2) mg/dL Alkaline Phosphatase (38-126) U/L Total Protein (6.3-8.2) g/dL Albumin (3.5-5.0) g/dL Microbiology - Last 24 Hours (Table) 11/06/23 09:33 Blood Culture - Preliminary Blood
--- NOTE | 2023-11-10 12:18 | P.PN ---
Subjective Progress Note Date: 11/10/23 Principal diagnosis: Reason for follow-up is fever/ileus/obstruction Patient is a 43-year-old -Martiniquais male past medical history significant for right-sided jaw cancer for the patient be treated with chemoradiation therapy, patient also have a history of alcohol abuse possible acute and chronic pancreatitis patient recently did have a prolonged hospital stay for bowel obstruction and this patient who did have a perforated small bowel and status post resection on 09/06/2023 did have prolonged ileus, now presenting back to the hospital abdominal pain and vomiting has been diagnosed with ileus/obstruction.Patient is status post open expiratory laparotomy with lysis o f adhesion excision of small bowel tumor x 3 closure of decompressive enterostomy and drainage of abdominal ascites completed on 10/16/2023. On today's evaluation that is 11/10/2023,the patient remains to be afebrile, patient is on room air not requiring supplemental oxygen and denies any shortness of breath no chest pain or cough.Patient did have placement of the NG denies any worsening abdominal pain and no bowel movement. Patient creatinine 0.67, no CBC was done today Objective - Vital Signs Vital signs: Vital Signs Temp 98.9 F 11/10/23 09:10 Pulse 123 H 11/10/23 09:10 Resp 18 11/10/23 09:10 BP 119/79 11/10/23 09:10 Pulse Ox 95 11/10/23 09:10 FiO2 Intake & Output 11/09/23 11/10/23 11/10/23 18:59 06:59 18:59 Output Total 1202 750 200 Balance -1202 -750 -200 Output: Gastric Drainage 750 Urine 450 750 200 Stool 2 Other: Voiding Method Urinal Urinal Urinal # Voids 2 - Exam GENERAL DESCRIPTION: Middle-age male up in the chair in no distress RESPIRATORY SYSTEM: Unlabored breathing , decreased breath sounds at bases HEART: S1 S2 regular rate and rhythm , ABDOMEN: Soft , mild distention and tenderness EXTREMITIES: No edema feet - Labs CBC & Chem 7: 11/09/23 08:24 11/10/23 08:31 Labs: Abnormal Lab Results - Last 24 Hours (Table) 11/10/23 11/10/23 11/10/23 Range/Units 00:05 06:06 08:31 Sodium 133 L (137-145) mmol/L BUN 21 H (9-20) mg/dL Glucose 155 H (74-99) mg/dL POC Glucose (mg/dL) 147 H 146 H (70-110) mg/dL Calcium 7.8 L (8.4-10.2) mg/dL Alkaline Phosphatase 246 H (38-126) U/L Total Protein 5.6 L (6.3-8.2) g/dL Albumin 2.4 L (3.5-5.0) g/dL 11/10/23 Range/Units 11:43 Sodium (137-145) mmol/L BUN (9-20) mg/dL Glucose (74-99) mg/dL POC Glucose (mg/dL) 169 H (70-110) mg/dL Calcium (8.4-10.2) mg/dL Alkaline Phosphatase (38-126) U/L Total Protein (6.3-8.2) g/dL Albumin (3.5-5.0) g/dL Microbiology - Last 24 Hours (Table) 11/06/23 09:33 Blood Culture - Preliminary Blood Assessment and Plan (1) Leukocytosis Current Visit: Yes Status: Acute Code(s): D72.829 - ELEVATED WHITE BLOOD CELL COUNT, UNSPECIFIED SNOMED Code(s): 635306145 (2) Ileus Current Visit: Yes Status: Acute Code(s): K56.7 - ILEUS, UNSPECIFIED SNOMED Code(s): 111505238 (3) MRSA (methicillin resistant staph aureus) culture positive Current Visit: Yes Status: Acute Code(s): Z22.322 - CARRIER OR SUSPECTED CARRIER OF METHICILLIN RESIS STAPH SNOMED Code(s): 175216546 (4) Candidemia Current Visit: Yes Status: Acute Code(s): B37.7 - CANDIDAL SEPSIS SNOMED Code(s): 553176876 Plan: 1patient presented hospital with sepsis in this patient who did have an elevated white count tachycardia source likely abdominal pain this patient did have predominantly abdominal symptoms with abdominal pain and vomiting CT has been suggestive of ileus/obstruction and will likely need to cover for the enteric gram-negative both aerobes and anaerobes 2- cultures from the DEBORA grew MRSA as well as Enterococcus, for the patient received adequate Unasyn and vancomycin therapy 3-patient is status post extensive abdominal surgery did not mention any perforation or abscess no cultures 4- patient did have a new fever on 11/02/2023 with blood culture positive for Courtney parapsilosis PICC line was discontinued and the catheter positive for yeast as well patient also have a port from which blood culture has been obtained which are so far negative, patient is to continue with IV Diflucan 5-patient noticed to have worsening of his white count and evidence of new large bowel obstruction possible abdominal source, Zosyn was added yesterday to continue we will repeat a CBC with a.m. lab plan is for colonoscopy by surgery on Friday Dictation was produced using [employer] software. please excuse any grammatical, word or spelling errors. Time with Patient: Less than 30
[2023-11-10 17:15] LABS: Glucose,Whole Blood 113 mg/dL (70-110)
[2023-11-10] MEDS: PEG 3350 (420 GM/BTL) + LYTES 4,000 ML BOTTLE PO ONE (17:53)
[2023-11-11] LABS: Glucose,Whole Blood 150 mg/dL (70-110)
[2023-11-11 05:57] LABS: Glucose,Whole Blood 145 mg/dL (70-110)
[2023-11-11 10:28] LABS: Anisocytosis Slight; Basophils % (A) 0 %; Eosinophils # (A) 0.1 k/uL (0-0.7); Eosinophils % (A) 1 %; HCT 28.4 % (39.0-53.0); HGB 8.2 gm/dL (13.0-17.5); Hypochromasia Marked; Lymphocytes # (A) 1.1 k/uL (1.0-4.8); Lymphocytes % (A) 10 %; MCH 22.6 pg (25.0-35.0); MCHC 28.9 g/dL (31.0-37.0); MCV 78.4 fL (80.0-100.0); Mean Platelet Volume 7.7; Microcytosis Slight; Monocytes # (A) 0.6 k/uL (0-1.0); Monocytes % (A) 6 %; Neutrophils # (A) 8.8 k/uL (1.3-7.7); Neutrophils % (A) 81 %; Platelet Count 778 k/uL (150-450); RBC 3.62 m/uL (4.30-5.90); RDW 17.3 % (11.5-15.5); WBC 10.9 k/uL (3.8-10.6)
[2023-11-11 10:47] LABS: African American GFR (CKD) >90 (>60 ml/min/1.73 sqM); Anion Gap 10 mmol/L; Blood Urea Nitrogen 22 mg/dL (9-20); Calcium 8.2 mg/dL (8.4-10.2); Carbon Dioxide 24 mmol/L (22-30); Chloride 102 mmol/L (98-107); Glucose 138 mg/dL (74-99); Magnesium 2.1 mg/dL (1.6-2.3); Non-African American GFR(CKD) >90 (>60 ml/min/1.73 sqM); Phosphorus 4.3 mg/dL (2.5-4.5); Potassium 4.2 mmol/L (3.5-5.1); Sodium 136 mmol/L (137-145)
[2023-11-11 11:55] LABS: Glucose,Whole Blood 146 mg/dL (70-110)
--- NOTE | 2023-11-11 12:20 | P.PN ---
Subjective Progress Note Date: 11/11/23 CHIEF COMPLAINT: Recurrent small bowel obstruction HISTORY OF PRESENT ILLNESS: Patient is status post open exploratory laparotomy with lysis of adhesions, excision of small bowel tumor x 3 closure of decom pressive enterostomy, drainage of abdominal ascites and partial omentectomy on 10/16/23. Patient now with large bowel obstruction of unclear etiology. He reports flatus and loose stools. He does have NG tube in place. He is undergoing a bowel prep today. Afebrile. Mildly tachycardic. WBC is down from 15.9-10.9 Hgb 8.2 platelets 778 PHYSICAL EXAM: VITAL SIGNS: Reviewed GENERAL: Well-developed in no acute distress. HEENT: No sclera icterus. Extraocular movements grossly intact. Moist buccal mucosa. Head is atraumatic, normocephalic. Hears conversational speech. No nasal drainage. NECK: Supple without lymphadenopathy. CHEST: Non-labored respirations and equal bilateral excursions. CARDIOVASCULAR: Palpable 2+ radial pulses. ABDOMEN: distended. Tender at incision site. Incisional dressing clean dry and intact. MUSCULOSKELETAL: No clubbing or cyanosis. NEUROLOGIC: No focal or lateralizing signs. Cranial nerves II through XII grossly intact. PSYCH: Appropriate affect. Alert and oriented to person, place and time. SKIN: Stage II coccyx ulcer ASSESSMENT: 1. Distal colonic obstruction 2. Small bowel obstruction status post lysis of adhesions on 10/16/2023 3. History of perforated small bowel 4. Severe protein malnutrition 5. Chronic constipation 6. Dehydration 7. Prior history of tracheostomy and mandibular cancer 8. History of marijuana use. 9. Expected ileus 10. Iron deficiency anemia 11. Underweight, BMI 16.5 12. Supraventricular tachycardia 13. MRSA DEBORA drain fluid 14. Possible pneumonia 15. Pressure ulcer of the coccyx self-induced due to patient's choice of immobility 16. Candidemia due to PICC line infection. PICC line removed PLAN: -Patient scheduled for colonoscopy on 11/12/[address] Easton to evaluate the colon -Patient is tentatively scheduled for a robotic left colectomy on November [address] Easton -Continue Nulytely bowel prep today -N.p.o. after midnight -Continue NG tube for decompression -Keep patient n.p.o. -Continue TPN for nutrition support -Continue antibiotics -Encourage patient ambulate -DVT prophylaxis Heparin Physician Fabricating Machine Operator note has been reviewed by physician. Signing provider agrees with the documented findings, assessment, and plan of care. Objective - Vital Signs Vital signs: Vital Signs Temp 98 F 11/11/23 11:42 Pulse 105 H 11/11/23 11:42 Resp 20 11/11/23 11:42 BP 120/83 11/11/23 11:42 Pulse Ox 98 11/11/23 11:42 FiO2 Intake & Output 11/10/23 11/11/23 11/11/23 18:59 06:59 18:59 Intake Total 1846 Output Total 601 300 200 Balance -601 1546 -200 Weight 45.8 kg 45.8 kg Intake: Intake, IV Titration 1596 Amount Mvi, Adult No.4 with Vit 420 K 10 ml Trace (Conc-1Ml/ Dose) 1 ml Sodium Chloride 4Meq/ml Vial 56 meq Sodium Acetate 80 meq Potassium Acetate 12 meq Calcium Gluconate 1 gm Magnesium Sulfate gm 2 gm Potassium Phosphate 6 mmol In Amino Acids 5 %/ Dextrose 20 % 1,000 ml @ 70 mls/hr IV .BY DURATION [facility] Rx#:[id number] Piperacillin-Tazobactam 3 100 .375 gm In Sodium Chloride 0.9% 100 ml @ 25 mls/hr IVPB Q8HR [facility] Rx# :[id number] Sodium Chloride 4Meq/ml 1076 Vial 56 meq Sodium Acetate 80 meq Potassium Acetate 12 meq Calcium Gluconate 1 gm Magnesium Sulfate gm 2 gm Potassium Phosphate 6 mmol In Amino Acids 5 %/Dextrose 20 % 1,000 ml @ 70 mls/hr IV .BY DURATION [facility] Rx#: [id number] Oral 250 Output: Urine 600 300 200 Stool 1 Other: Voiding Method Urinal - Labs CBC & Chem 7: 11/11/23 09:20 11/11/23 09:20 Labs: Abnormal Lab Results - Last 24 Hours (Table) 11/10/23 11/10/23 11/11/23 Range/Units 17:14 23:59 05:56 WBC (3.8-10.6) k/uL RBC (4.30-5.90) m/uL Hgb (13.0-17.5) gm/dL Hct (39.0-53.0) % MCV (80.0-100.0) fL MCH (25.0-35.0) pg MCHC (31.0-37.0) g/dL RDW (11.5-15.5) % Plt Count (150-450) k/uL Neutrophils # (1.3-7.7) k/uL Sodium (137-145) mmol/L BUN (9-20) mg/dL Glucose (74-99) mg/dL POC Glucose (mg/dL) 113 H 150 H 145 H (70-110) mg/dL Calcium (8.4-10.2) mg/dL 11/11/23 11/11/23 11/11/23 Range/Units 09:20 09:20 11:51 WBC 10.9 H (3.8-10.6) k/uL RBC 3.62 L (4.30-5.90) m/uL Hgb 8.2 L (13.0-17.5) gm/dL Hct 28.4 L (39.0-53.0) % MCV 78.4 L (80.0-100.0) fL MCH 22.6 L (25.0-35.0) pg MCHC 28.9 L (31.0-37.0) g/dL RDW 17.3 H (11.5-15.5) % Plt Count 778 H (150-450) k/uL Neutrophils # 8.8 H (1.3-7.7) k/uL Sodium 136 L (137-145) mmol/L BUN 22 H (9-20) mg/dL Glucose 138 H (74-99) mg/dL POC Glucose (mg/dL) 146 H (70-110) mg/dL Calcium 8.2 L (8.4-10.2) mg/dL Microbiology - Last 24 Hours (Table) 11/05/23 15:56 Blood Culture - Final Blood
--- NOTE | 2023-11-11 13:02 | P.PN ---
Subjective Progress Note Date: 11/11/23 Principal diagnosis: Reason for follow-up is fever/ileus/obstruction Patient is a 43-year-old -[place] male past medical history significant for right-sided jaw cancer for the patient be treated with chemoradiation therapy, patient also have a history of alcohol abuse possible acute and chronic pancreatitis patient recently did have a prolonged hospital stay for bowel obstruction and this patient who did have a perforated small bowel and status post resection on 09/06/2023 did have prolonged ileus, now presenting back to the hospital abdominal pain and vomiting has been diagnosed with ileus/obstruction.Patient is status post open expiratory laparotomy with lysis o f adhesion excision of small bowel tumor x 3 closure of decompressive enterostomy and drainage of abdominal ascites completed on 10/16/2023. On today's evaluation that is 11/11/2023, the patient continues to be afebrile, the patient is on room air and breathing comfortably, the Pt denies having any c hest pain or cough, the patient continued complaint of abdominal distention and discomfort he still have the NG no bowel movement. Patient white count is 10.9, creatinine 0.70 blood culture repeat has been negative Objective - Vital Signs Vital signs: Vital Signs Temp 98 F 11/11/23 11:42 Pulse 105 H 11/11/23 11:42 Resp 20 11/11/23 11:42 BP 120/83 11/11/23 11:42 Pulse Ox 98 11/11/23 11:42 FiO2 Intake & Output 11/10/23 11/11/23 11/11/23 18:59 06:59 18:59 Intake Total 1846 Output Total 601 300 200 Balance -601 1546 -200 Weight 45.8 kg 45.8 kg Intake: Intake, IV Titration 1596 Amount Mvi, Adult No.4 with Vit 420 K 10 ml Trace (Conc-1Ml/ Dose) 1 ml Sodium Chloride 4Meq/ml Vial 56 meq Sodium Acetate 80 meq Potassium Acetate 12 meq Calcium Gluconate 1 gm Magnesium Sulfate gm 2 gm Potassium Phosphate 6 mmol In Amino Acids 5 %/ Dextrose 20 % 1,000 ml @ 70 mls/hr IV .BY DURATION [facility] Rx#:[id number] Piperacillin-Tazobactam 3 100 .375 gm In Sodium Chloride 0.9% 100 ml @ 25 mls/hr IVPB Q8HR [facility] Rx# :[id number] Sodium Chloride 4Meq/ml 1076 Vial 56 meq Sodium Acetate 80 meq Potassium Acetate 12 meq Calcium Gluconate 1 gm Magnesium Sulfate gm 2 gm Potassium Phosphate 6 mmol In Amino Acids 5 %/Dextrose 20 % 1,000 ml @ 70 mls/hr IV .BY DURATION [facility] Rx#: [id number] Oral 250 Output: Urine 600 300 200 Stool 1 Other: Voiding Method Urinal - Exam GENERAL DESCRIPTION: Middle-age male up in the chair in no distress RESPIRATORY SYSTEM: Unlabored breathing , decreased breath sounds at bases HEART: S1 S2 regular rate and rhythm , ABDOMEN: Soft , mild distention and tenderness EXTREMITIES: No edema feet - Labs CBC & Chem 7: 11/11/23 09:20 11/11/23 09:20 Labs: Abnormal Lab Results - Last 24 Hours (Table) 11/10/23 11/10/23 11/11/23 Range/Units 17:14 23:59 05:56 WBC (3.8-10.6) k/uL RBC (4.30-5.90) m/uL Hgb (13.0-17.5) gm/dL Hct (39.0-53.0) % MCV (80.0-100.0) fL MCH (25.0-35.0) pg MCHC (31.0-37.0) g/dL RDW (11.5-15.5) % Plt Count (150-450) k/uL Neutrophils # (1.3-7.7) k/uL Sodium (137-145) mmol/L BUN (9-20) mg/dL Glucose (74-99) mg/dL POC Glucose (mg/dL) 113 H 150 H 145 H (70-110) mg/dL Calcium (8.4-10.2) mg/dL 11/11/23 11/11/23 11/11/23 Range/Units 09:20 09:20 11:51 WBC 10.9 H (3.8-10.6) k/uL RBC 3.62 L (4.30-5.90) m/uL Hgb 8.2 L (13.0-17.5) gm/dL Hct 28.4 L (39.0-53.0) % MCV 78.4 L (80.0-100.0) fL MCH 22.6 L (25.0-35.0) pg MCHC 28.9 L (31.0-37.0) g/dL RDW 17.3 H (11.5-15.5) % Plt Count 778 H (150-450) k/uL Neutrophils # 8.8 H (1.3-7.7) k/uL Sodium 136 L (137-145) mmol/L BUN 22 H (9-20) mg/dL Glucose 138 H (74-99) mg/dL POC Glucose (mg/dL) 146 H (70-110) mg/dL Calcium 8.2 L (8.4-10.2) mg/dL Microbiology - Last 24 Hours (Table) 11/05/23 15:56 Blood Culture - Final Blood Assessment and Plan (1) Leukocytosis Current Visit: Yes Status: Acute Code(s): D72.829 - ELEVATED WHITE BLOOD CELL COUNT, UNSPECIFIED SNOMED Code(s): 970772653 (2) Ileus Current Visit: Yes Status: Acute Code(s): K56.7 - ILEUS, UNSPECIFIED SNOMED Code(s): 810793225 (3) MRSA (methicillin resistant staph aureus) culture positive Current Visit: Yes Status: Acute Code(s): Z22.322 - CARRIER OR SUSPECTED CARRIER OF METHICILLIN RESIS STAPH SNOMED Code(s): 404681194 (4) Candidemia Current Visit: Yes Status: Acute Code(s): B37.7 - CANDIDAL SEPSIS SNOMED C ode(s): 486685836 Plan: 1patient presented hospital with sepsis in this patient who did have an elevated white count tachycardia source likely abdominal pain this patient did have predominantly abdominal symptoms with abdominal pain and vomiting CT has been suggestive of ileus/obstruction and will likely need to cover for the enteric gram-negative both aerobes and anaerobes 2- cultures from the DEB[facility]A grew MRSA as well as Enterococcus, for the patient rece ived adequate Unasyn and vancomycin therapy 3-patient is status post extensive abdominal surgery did not mention any perforation or abscess no cultures 4- patient did have a new fever on 11/02/2023 with blood culture positive for Courtney parapsilosis PICC line was discontinued and the catheter positive for yeast as well patient also have a port from which blood culture has been obtained which are so far negative, patient is currently covered with IV cefepime 5-patient noticed to have worsening of his white count and evidence of new large bowel obstruction possible abdominal source, patient is currently covered with Zosyn patient white count is trending down and will be monitored closely possi ble colonoscopy scheduled for tomorrow Dictation was produced using [employer] dictation software. please excuse any grammatical, word or spelling errors. Time with Patient: Less than 30
--- NOTE | 2023-11-11 13:38 | P.PN ---
Subjective Progress Note Date: 11/11/23 Hospital course: Patient is a 43-year-old male with a past medical history of chronic pancreatitis, alcoholism, history of a pulmonary emboli, right-sided jaw cancer status post chemo/radiation treatment, GERD with erosive esophagitis, gastritis, and recent hospitalization from 09/04/2023 through 09/18/2023 for small bowel obstruction status post perforation resulting in emergent small bowel resection with [id number] duodenojejunostomy 09/06/2023 complicated by post operative ileus. He completed multiple days of IV antibiotics and discharged home on PO Augmentin and DEBORA drain. He presented to the emergency department on 10/09/2023 with a chief complaint of increased abdominal pain, abdominal distention and multiple episodes of bilious vomiting. Upon arrival in the emergency department, patient underwent full evaluation. Vital signs upon arrival showed BP 145/95, HR 101, RR 18, T 90 7.8F, 100% on RA. Labs were completed and revie wed CBC showed WBC count 18.5, hemoglobin 10.6, hematocrit 33.2, MCV 79, platelet 634. CMP showed sodium 134, bicarb 20, creatinine 0.48, glucose 167, albumin 2.9. Lipase 473. Lactic acid 1.4. CT abdomen and pelvis was completed revealing diffuse SB dilation with bowel containing gas, feces, and fluid suspicious for ileus versus small bowel obstruction, drainage catheter in place, and chronic pancreatitis changes. Patient reported having bowel movements despite abdominal distention and worsening pain. Patient was admitted to general surgery team and [facility] was consulted for medical management of this patient throughout hospitalization. DEBORA drain cultures positive for MRSA. Patient failed conservative management of small bowel obstruction and was taken for open laparotomy with lysis of adhesions and resection of small bowel tumor with wound VAC placement on 10/16/2023. Pathology sample was sent to lab for analysis and per pathology report, negative for histopathologic changes and negative for malignancy. Patient with postoperative ileus resulting in nausea and vomiting and reinsertion of NG tube on 10/26/2023 and again removal of NG tube on 10/29/2023. On the evening of 11/02/2023 patient was receiving blood transfusion and spiked an elevated temp as high as 101.6 F and tachycardia with heart rate 130s. Blood cultures were obtained and patient was started back on IV antibiotics with vancomycin and transferred to [facility] for closer monitoring. Blood cultures resulting positive for Courtney parapsilosis and patient was started on IV fluconazole 400 mg daily and Zosyn 3.375 g every 8 hours. On 11/03/2023 patient continued to have incontinent stools and underwent a fluoroscopic small bowel follow-through again revealing severe obstruction versus ileus. On 11/06/[address] abdomen and pelvis with contrast was completed revealing multiple dilated loops of bowel with air-fluid and concerns of possible distal colonic obstruction, chronic pancreatitis, and possible mass posterior medial left lung base. Patient with persistent nausea and vomiting and NG tube was reinserted on 11/09/2023. Physical exam: Patient seen and fully evaluated at bedside this morning. He was resting in bed. NG tube in place. Patient reports persistent abdominal pain and distention. Family at bedside. Have questions regarding surgical options provided to patient by general surgeon. General surgery paged and notified of patient's and family questions. Vital signs reviewed and stable. General: Nontoxic, no acute distress and appears older than stated age. Thin and frail. Derm: Skin warm and dry, normal coloration for ethnicity. Head: Atraumatic, normocephalic and symmetric. Eyes: EOMs intact, no lid lag, and anicteric sclera Mouth: no lip lesions, mucus membranes moist Cardiovascular: regular rate and rhythm with normal S1S2, no murmur, positive posterior tibial pulses bilaterally, and cap refill < 2 seconds. Lungs: Respirations even, regular, and unlabored on room air. Lungs CTA bilaterally, no rhonchi, no rales, no wheezing, and no accessory muscle usage. Abdominal: Abdomen distended. Postsurgical incision midline with dressing clean, dry, and intact. Abdominal binder in place. NG tube in place. Ext: ROM intact. No gross muscle atrophy, no edema, no contractures. Neuro: Speech clear, face symmetrical and CN II-XII grossly intact with no noted focal neuro deficits Psych: Alert and oriented to person, place, time, and situation. Appropriate and pleasant affect. Assessment and Plan of Care: Courtney parapsilosis bacteremia Leukocytosis -Blood cultures drawn 11/02/2023 positive for Courtney parapsilosis. -PICC line culture drawn 11/04/2023 positive for Courtney species, not albicans. -Repeat blood cultures drawn 11/05/2023 and 11/06/2023 showing no growth to date. -Patient to continue IV fluconazole 400 mg daily and Zosyn 3.375 g every 8 hours. -Infectious disease following, reviewed documentation in chart. Sinus tachycardia -Sinus tachycardia of unclear origin, possibly related to pain resulting from worsening postoperative ileus vs infection with bacteremia. -Cardiology evaluated and started patient on metoprolol 50 mg twice daily. -Infectious disease following and patient being treated for bacteremia as stated above. -General surgery following and managing postoperative ileus and pain. -Bilateral lower extremity venous Dopplers were completed negative for DVTs. -Echocardiogram completed revealing a preserved EF of 60 to 65% with small pericardial effusion without tamponade physiology. Recurrent postoperative ileus with new distal colonic obstruction Recurrent small bowel obstruction requiring open laparotomy with lysis of adhesions and resection of small bowel tumor on 10/16/2023 Retroperitoneal mass History of GERD with erosive esophagitis History of gastritis Elevated lipase with history of chronic pancreatitis -General surgery managing postoperative ileus and new distal colonic obstruction and planning to take patient for colonoscopy 11/12/2023 -Continue close monitoring of I's and O's, continue NG tube to low intermittent suction with close monitoring of gastric output. Documented gastric output over the past 24 hours is 750 cc. -Symptomatic care and pain management. Zofran 4 mg IVP every 8 hours as needed for nausea and/or vomiting -Continue Reglan 10 mg IVP every 6 hours scheduled and patient received 2 doses of Relistor to increase bowel motility. -Continue Protonix 40 mg IVP daily -Pathology sample was sent to lab for analysis and per pathology report, negative for histopathologic changes and negative for malignancy. Severe protein calorie malnutrition with BMI of 16.9 kg/m -Dietitian following managing TPN and lipids. MRSA infection, completed treatment -DEBORA drain site culture was positive for MRSA and group D enterococcus faecalis. -Infectious disease following. Patient completed extended antibiotic course with Unasyn and vancomycin for treatment of MRSA infection. -Blood cultures drawn 10/08/2023 showed no growth in 2 of 2 sets. Acute blood loss anemia on anemia of chronic disease. Hemoglobin stable at 8.4. Will continue to monitor and transfuse if needed for hemoglobin less than 7. Iron profile resulting showing total iron of 17, TIBC of 171, iron percentage 9.94, transferrin of 122, and ferritin of 366. Patient completed 3 day course of IV Ferrlecit 125 mg daily and started on ferrous sulfate 325 mg daily. Pyrexia isolated event during blood transfusion, possibly secondary to blood transfusion reaction vs infectious process -Transfusion was stopped and tubing/bag sent to blood bank for analysis. -Infectious process also being ruled out, blood cultures drawn and patient started on IV antibiotics with vancomycin per infectious disease. Pressure ulcer to coccyx present on arrival, worsening. Wound care following for management. Thrombocytosis. Believed to be reactive secondary to postoperative ileus. Platelet count 778. Hypokalemia, resolved and pt is on TPN/Lipids Hypomagnesemia, resolved and pt is on TPN/Lipids History of small bowel perforation status post emergent small bowel resection with [id number] duodenojejunostomy 09/06/2023 Data and imaging reviewed: Vital signs reviewed. Blood pressure 118/77, heart rate 105, respiratory rate 18, temp 98.3 F, and SpO2 of 99% on room air. Morning labs reviewed.. CBC showing mild leukocytosis with WBC count of 10.9, stable hemoglobin of 8.2, and worsening thrombocytosis with platelet count of 778. BMP showing mild prerenal azotemia with BUN of 22 otherwise normal findings. CODE STATUS: FULL CODE DVT Prophylaxis: Lovenox SQ GI Prophylaxis: Protonix Thank you for allowing us to participate in the care of this pleasant patient. Do not hesitate to contact us with questions. Someone can be reached from the [facility] hospitalist group all hours of the day at [phone] or via perfect serve. Patient was seen independently by Nurse Pracitioner. This document was prepared using [employer] dictation software. Please allow for errors in workday director, while rare they do occur. Edin Davalos NP rendered care for this patient independently, reviewed the findings and plan as documented in the note above. I did not physically speak with or examine the patient on this date. Objective - Vital Signs Vital signs: Vital Signs Temp 97.7 F 11/11/23 04:13 Pulse 102 H 11/11/23 04:13 Resp 16 11/11/23 04:13 BP 116/78 11/11/23 04:13 Pulse Ox 99 11/11/23 04:13 FiO2 Intake & Output 11/10/23 11/11/23 11/11/23 18:59 06:59 18:59 Intake Total 1846 Output Total 601 300 Balance -601 1546 Weight 45.8 kg 45.8 kg Intake: Intake, IV Titration 1596 Amount Mvi, Adult No.4 with Vit 420 K 10 ml Trace (Conc-1Ml/ Dose) 1 ml Sodium Chloride 4Meq/ml Vial 56 meq Sodium Acetate 80 meq Potassium Acetate 12 meq Calcium Gluconate 1 gm Magnesium Sulfate gm 2 gm Potassium Phosphate 6 mmol In Amino Acids 5 %/ Dextrose 20 % 1,000 ml @ 70 mls/hr IV .BY DURATION [facility] Rx#:[id number] Piperacillin-Tazobactam 3 100 .375 gm In Sodium Chloride 0.9% 100 ml @ 25 mls/hr IVPB Q8HR [facility] Rx# :[id number] Sodium Chloride 4Meq/ml 1076 Vial 56 meq Sodium Acetate 80 meq Potassium Acetate 12 meq Calcium Gluconate 1 gm Magnesium Sulfate gm 2 gm Potassium Phosphate 6 mmol In Amino Acids 5 %/Dextrose 20 % 1,000 ml @ 70 mls/hr IV .BY DURATION [facility] Rx#: [id number] Oral 250 Output: Urine 600 300 Stool 1 Other: Voiding Method Urinal - Labs CBC & Chem 7: 11/11/23 09:20 11/11/23 09:20 Labs: Abnormal Lab Results - Last 24 Hours (Table) 11/10/23 11/10/23 11/10/23 Range/Units 08:31 11:43 17:14 Sodium 133 L (137-145) mmol/L BUN 21 H (9-20) mg/dL Glucose 155 H (74-99) mg/dL POC Glucose (mg/dL) 169 H 113 H (70-110) mg/dL Calcium 7.8 L (8.4-10.2) mg/dL Alkaline Phosphatase 246 H (38-126) U/L Total Protein 5.6 L (6.3-8.2) g/dL Albumin 2.4 L (3.5-5.0) g/dL 11/10/23 11/11/23 Range/Units 23:59 05:56 Sodium (137-145) mmol/L BUN (9-20) mg/dL Glucose (74-99) mg/dL POC Glucose (mg/dL) 150 H 145 H (70-110) mg/dL Calcium (8.4-10.2) mg/dL Alkaline Phosphatase (38-126) U/L Total Protein (6.3-8.2) g/dL Albumin (3.5-5.0) g/dL Microbiology - Last 24 Hours (Table) 11/05/23 15:56 Blood Culture - Final Blood
[2023-11-11 17:39] LABS: Glucose,Whole Blood 131 mg/dL (70-110)
[2023-11-11 23:53] LABS: Glucose,Whole Blood 161 mg/dL (70-110)
[2023-11-12 06:01] LABS: Glucose,Whole Blood 154 mg/dL (70-110)
--- NOTE | 2023-11-12 11:17 | P.PN ---
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 He completed multiple days of IV antibiotics and discharged home on PO Augmentin and DEBORA drain. He presented to the emergency department on 10/09/2023 with a chief complaint of increased abdominal pain, abdominal distention and multiple episodes of bilious vomiting. Upon arrival in the emergency department, patient underwent full evaluation. Vital signs upon arrival showed BP 145/95, HR 101, RR 18, T 90 7.8F, 100% on RA. Labs were completed and revie wed CBC showed WBC count 18.5, hemoglobin 10.6, hematocrit 33.2, MCV 79, platelet 634. CMP showed sodium 134, bicarb 20, creatinine 0.48, glucose 167, albumin 2.9. Lipase 473. Lactic acid 1.4. CT abdomen and pelvis was completed revealing diffuse SB dilation with bowel containing gas, feces, and fluid suspicious for ileus versus small bowel obstruction, drainage catheter in place, and chronic pancreatitis changes. Patient reported having bowel movements despite abdominal distention and worsening pain. Patient was admitted to general surgery team and [facility] was consulted for medical management of this patient throughout hospitalization. DEBORA drain cultures positive for MRSA. Patient failed conservative management of small bowel obstruction and was taken for open laparotomy with lysis of adhesions and resection of small bowel tumor with wound VAC placement on 10/16/2023. Pathology sample was sent to lab for analysis and per pathology report, negative for histopathologic changes and negative for malignancy. Patient with postoperative ileus resulting in nausea and vomiting and reinsertion of NG tube on 10/26/2023 and again removal of NG tube on 10/29/2023. On the evening of 11/02/2023 patient was receiving blood transfusion and spiked an elevated temp as high as 101.6 F and tachycardia with heart rate 130s. Blood cultures were obtained and patient was started back on IV antibiotics with vancomycin and transferred to [facility] for closer monitoring. Blood cultures resulting positive for Courtney parapsilosis and patient was started on IV fluconazole 400 mg daily and Zosyn 3.375 g every 8 hours. On 11/03/2023 patient continued to have incontinent stools and underwent a fluoroscopic small bowel follow-through again revealing severe obstruction versus ileus. On 11/06/[address] abdomen and pelvis with contrast was completed revealing multiple dilated loops of bowel with air-fluid and concerns of possible distal colonic obstruction, chronic pancreatitis, and possible mass posterior medial left lung base. Patient with persistent nausea and vomiting and NG tube was reinserted on 11/09/2023. He is scheduled to undergo a colonoscopy later today with Dr. Easton for further evaluation of distal colon and per general surgery is tentatively scheduled for robotic left colectomy on Friday. Physical exam: Patient seen and fully evaluated at bedside this morning. He has no new complaints this morning. He does report feeling anxious over surgical options discussed and awaiting to discuss further with surgeon. Patient continues to have abdominal distention and pain and has had a documented 2550 cc of brown gastric drainage over the past 24 hours. Vital signs reviewed and stable. General: Nontoxic, no acute distress and appears older than stated age. Thin and frail. Derm: Skin warm and dry, normal coloration for ethnicity. Head: Atraumatic, normocephalic and symmetric. Eyes: EOMs intact, no lid lag, and anicteric sclera Mouth: no lip lesions, mucus membranes moist Cardiovascular: regular rate and rhythm with normal S1S2, no murmur, positive posterior tibial pulses bilaterally, and cap refill < 2 seconds. Lungs: Respirations even, regular, and unlabored on room air. Lungs CTA bilaterally, no rhonchi, no rales, no wheezing, and no accessory muscle usage. Abdominal: Abdomen distended. Postsurgical incision midline with dressing clean, dry, and intact. Abdominal binder in place. NG tube in place. Ext: ROM intact. No gross muscle atrophy, no edema, no contractures. Neuro: Speech clear, face symmetrical and CN II-XII grossly intact with no noted focal neuro deficits Psych: Alert and oriented to person, place, time, and situation. Appropriate and pleasant affect. Assessment and Plan of Care: Courtney parapsilosis bacteremia Leukocytosis -Blood cultures drawn 11/02/2023 positive for Courtney parapsilosis. -PICC line culture drawn 11/04/2023 positive for Courtney species, not albicans. -Repeat blood cultures drawn 11/05/2023 and 11/06/2023 showing no growth to date. -Patient to continue IV fluconazole 400 mg daily and Zosyn 3.375 g every 8 hours. -Infectious disease following, reviewed documentation in chart. Sinus tachycardia -Sinus tachycardia of unclear origin, possibly related to pain resulting from worsening postoperative ileus vs infection with bacteremia. -Cardiology evaluated and started patient on metoprolol 50 mg twice daily. -Infectious disease following and patient being treated for bacteremia as stated above. -General surgery following and managing postoperative ileus/recurrent obstruction and pain. -Bilateral lower extremity venous Dopplers were completed negative for DVTs. -Echocardiogram completed revealing a preserved EF of 60 to 65% with small pericardial effusion without tamponade physiology. Recurrent postoperative ileus with new distal colonic obstruction Recurrent small bowel obstruction requiring open laparotomy with lysis of adhesions and resection of small bowel tumor on 10/16/2023 Retroperitoneal mass History of GERD with erosive esophagitis History of gastritis Elevated lipase with history of chronic pancreatitis -General surgery managing postoperative ileus and new distal colonic obstruction and planning to take patient for colonoscopy later today. -Continue close monitoring of I's and O's, continue NG tube to low intermittent suction with close monitoring of gastric output. Documented gastric output over the past 24 hours is 750 cc. -Symptomatic care and pain management. Zofran 4 mg IVP every 8 hours as needed for nausea and/or vomiting -Continue Reglan 10 mg IVP every 6 hours scheduled and patient received 2 doses of Relistor to increase bowel motility. -Continue Protonix 40 mg IVP daily -Pathology sample was sent to lab for analysis and per pathology report, negative for histopathologic changes and negative for malignancy. Severe protein calorie malnutrition with BMI of 16.9 kg/m -Dietitian following managing TPN and lipids. MRSA infection, completed treatment -DEBORA drain site culture was positive for MRSA and group D enterococcus faecalis. -Infectious disease following. Patient completed extended antibiotic course with Unasyn and vancomycin for treatment of MRSA infection. -Blood cultures drawn 10/08/2023 showed no growth in 2 of 2 sets. Acute blood loss anemia on anemia of chronic disease. Hemoglobin stable at 8.2. Will continue to monitor and transfuse if needed for hemoglobin less than 7. Iron profile resulting showing total iron of 17, TIBC of 171, iron percentage 9.94, transferrin of 122, and ferritin of 366. Patient completed 3 day course of IV Ferrlecit 125 mg daily and started on ferrous sulfate 325 mg daily. Pyrexia isolated event during blood transfusion, possibly secondary to blood transfusion reaction vs infectious process -Transfusion was stopped and tubing/bag sent to blood bank for analysis. -Infectious process also being ruled out, blood cultures drawn and patient started on IV antibiotics with vancomycin per infectious disease. Pressure ulcer to coccyx present on arrival, worsening. Wound care following for management. Thrombocytosis. Believed to be reactive secondary to postoperative ileus. Platelet count 778. Hypokalemia, resolved and pt is on TPN/Lipids Hypomagnesemia, resolved and pt is on TPN/Lipids History of small bowel perforation status post emergent small bowel resection with [id number] duodenojejunostomy 09/06/2023 Data and imaging reviewed: Vital signs reviewed. Blood pressure 125/79, heart rate 121, respiratory rate 18, temp 96.9 F, and SpO2 of 98% on room air. Morning labs reviewed.. CBC showing mild leukocytosis with WBC count of 10.7, stable hemoglobin of 8.2, and worsening thrombocytosis with platelet count of 838. BMP unremarkable. Triglycerides pending. CODE STATUS: FULL CODE DVT Prophylaxis: Lovenox SQ GI Prophylaxis: Protonix Thank you for allowing us to participate in the care of this pleasant patient. Do not hesitate to contact us with questions. Someone can be reached from the [facility] hospitalist group all hours of the day at [phone] or via perfect serve. Patient was seen independently by Nurse Pracitioner. This document was prepared using [employer] dictation software. Please allow for errors in health nurse, while rare they do occur. I reviewed the documentation as provided by the CATRINA above, who is the original author of this note. I agree with the documented assessment and plan, with the following changes: none Objective - Vital Signs Vital signs: Vital Signs Temp 96.9 F L 11/12/23 07:44 Pulse 121 H 11/12/23 07:44 Resp 18 11/12/23 07:44 BP 125/79 11/12/23 07:44 Pulse Ox 98 11/12/23 07:44 FiO2 Intake & Output 11/11/23 11/12/23 11/12/23 18:59 06:59 18:59 Intake Total 1420 Output Total 2600 1502 Balance -1180 -1502 Intake: Intake, IV Titration 1180 Amount Fluconazole in NaCl,Iso- 200 Osm 400 mg In Saline 1 200ml.bag @ 100 mls/hr IVPB DAILY [facility] Rx#: [id number] Mvi, Adult No.4 with Vit 780 K 10 ml Trace (Conc-1Ml/ Dose) 1 ml Sodium Chloride 4Meq/ml Vial 56 meq Sodium Acetate 80 meq Potassium Acetate 12 meq Calcium Gluconate 1 gm Magnesium Sulfate gm 2 gm Potassium Phosphate 6 mmol In Amino Acids 5 %/ Dextrose 20 % 1,000 ml @ 70 mls/hr IV .BY DURATION [facility] Rx#:[id number] Piperacillin-Tazobactam 3 200 .375 gm In Sodium Chloride 0.9% 100 ml @ 25 mls/hr IVPB Q8HR [facility] Rx# :[id number] Other 240 Output: Gastric Drainage 1950 600 Urine 650 900 Stool 2 Other: Voiding Method Urinal Urinal - Labs CBC & Chem 7: 11/13/23 09:58 11/14/23 09:38 Labs: Abnormal Lab Results - Last 24 Hours (Table) 11/11/23 11/11/23 11/11/23 Range/Units 09:20 09:20 11:51 WBC 10.9 H (3.8-10.6) k/uL RBC 3.62 L (4.30-5.90) m/uL Hgb 8.2 L (13.0-17.5) gm/dL Hct 28.4 L (39.0-53.0) % MCV 78.4 L (80.0-100.0) fL MCH 22.6 L (25.0-35.0) pg MCHC 28.9 L (31.0-37.0) g/dL RDW 17.3 H (11.5-15.5) % Plt Count 778 H (150-450) k/uL Neutrophils # 8.8 H (1.3-7.7) k/uL Sodium 136 L (137-145) mmol/L BUN 22 H (9-20) mg/dL Glucose 138 H (74-99) mg/dL POC Glucose (mg/dL) 146 H (70-110) mg/dL Calcium 8.2 L (8.4-10.2) mg/dL 11/11/23 11/11/23 11/12/23 Range/Units 17:34 23:51 06:00 WBC (3.8-10.6) k/uL RBC (4.30-5.90) m/uL Hgb (13.0-17.5) gm/dL Hct (39.0-53.0) % MCV (80.0-100.0) fL MCH (25.0-35.0) pg MCHC (31.0-37.0) g/dL RDW (11.5-15.5) % Plt Count (150-450) k/uL Neutrophils # (1.3-7.7) k/uL Sodium (137-145) mmol/L BUN (9-20) mg/dL Glucose (74-99) mg/dL POC Glucose (mg/dL) 131 H 161 H 154 H (70-110) mg/dL Calcium (8.4-10.2) mg/dL Microbiology - Last 24 Hours (Table) 11/06/23 09:33 Blood Culture - Final Blood
[2023-11-12 11:20] LABS: Anisocytosis Slight; Basophils % (A) 0 %; Eosinophils # (A) 0.1 k/uL (0-0.7); Eosinophils % (A) 1 %; HCT 28.2 % (39.0-53.0); HGB 8.2 gm/dL (13.0-17.5); Hypochromasia Marked; Lymphocytes # (A) 0.8 k/uL (1.0-4.8); Lymphocytes % (A) 8 %; MCH 23.1 pg (25.0-35.0); MCV 79.6 fL (80.0-100.0); Mean Platelet Volume 7.8; Microcytosis Slight; Monocytes # (A) 0.5 k/uL (0-1.0); Monocytes % (A) 5 %; Neutrophils # (A) 9.1 k/uL (1.3-7.7); Neutrophils % (A) 85 %; Platelet Count 838 k/uL (150-450); RBC 3.54 m/uL (4.30-5.90); RDW 17.3 % (11.5-15.5); WBC 10.7 k/uL (3.8-10.6)
[2023-11-12 11:36] LABS: African American GFR (CKD) >90 (>60 ml/min/1.73 sqM); Anion Gap 10 mmol/L; Blood Urea Nitrogen 18 mg/dL (9-20); Carbon Dioxide 22 mmol/L (22-30); Chloride 104 mmol/L (98-107); Glucose 147 mg/dL (74-99); Magnesium 1.6 mg/dL (1.6-2.3); Non-African American GFR(CKD) >90 (>60 ml/min/1.73 sqM); Potassium 3.9 mmol/L (3.5-5.1); Sodium 136 mmol/L (137-145)
[2023-11-12 11:40] LABS: Ionized Calcium 4.7 mg/dL (4.5-5.3)
[2023-11-12 11:43] LABS: Glucose,Whole Blood 154 mg/dL (70-110)
[2023-11-12] MEDS: IV FLUID CONTINUATION 500 ML IV ONE (13:31)
[2023-11-12] MEDS ORDERED: PROPOFOL 10 MG/ML 20 ML VIAL IV ONE (13:32)
[2023-11-12] MEDS: SODIUM CHLORIDE 0.9% 500 ML 500 ML IV ONE (14:11)
--- NOTE | 2023-11-12 16:10 | P.PCN ---
Date of Procedure: 11/12/23 Description of Procedure: PREOPERATIVE DIAGNOSIS: Abnormal CT scan/barium enema for large bowel obstruction due to neoplasm Chronic large bowel obstruction POSTOPERATIVE DIAGNOSIS: Sigmoid volvulus OPERATION: Decompressive colonoscopy for sigmoid volvulus Colonoscopy to the ascending colon Colonoscopy 1 injection of Lizz ink, 1 cc, sigmoid colon SURGEON: Leta Easton MD. ANESTHESIA: MAC. INDICATIONS: The patient is a 43-year-old male who presents longstanding presumed ileus. Diagnostic studies demonstrated persistent large bowel obstruction involving the sigmoid colon due to possible neoplastic process. Colonoscopy was described for direct visualization. Benefits and risks were described and informed consent was obtained. DESCRIPTION OF PROCEDURE: The patient had undergone Nulytely prep, 1 L. The patient had been brought into the endoscopy suite and laid in the left lateral decubitus position. After adequate intravenous sedation, the rectum was examined with 2% lidocaine jelly. No external hemorrhoids were encountered. The rectal tone was within normal limits. No lesions were palpated in the rectal vault. Moderate stool was identified however a transition point involving the sigmoid colon was found with clear pink mucosa. A pinwheel contour of the mucosa was found with immediate entry into distended colon with green liquid stools. An Olympus colonoscope was advanced ascending colon as the prep was suboptimal. No neoplastic process was identified. Injection of Lizz ink at sigmoid colon, 1 cc was placed. Retroflexion of the scope demonstrated grade 1 internal hemorrhoids without active bleeding or inflammation. The colon was desufflated. The patient had tole rated the procedure well. Withdrawal time was over 6 minutes. FINDINGS: Aronchick preparation quality scale 4 (1-5) Pinwheel contra mucosa of sigmoid volvulus, viable mucosa, with reduction Injection of Lizz ink 1 cc, sigmoid colon Internal hemorrhoids, grade 1 No external prolapsed hemorrhoids. No arteriovenous malformations. Nondiagnostic for colonic polyps due to poor prep No obstructive lesions or malignancy identified with moderate stool. RECOMMENDATIONS: Recommend partial colectomy due to persistent large bowel obstruction
[2023-11-12 16:36] LABS: Glucose,Whole Blood 146 mg/dL (70-110)
--- NOTE | 2023-11-12 17:53 | P.PN ---
Subjective Progress Note Date: 11/12/23 Principal diagnosis: Reason for follow-up is fever/ileus/obstruction Patient is a 43-year-old -[place] male past medical history significant for right-sided jaw cancer for the patient be treated with chemoradiation therapy, patient also have a history of alcohol abuse possible acute and chronic pancreatitis patient recently did have a prolonged hospital stay for bowel obstruction and this patient who did have a perforated small bowel and status post resection on 09/06/2023 did have prolonged ileus, now presenting back to the hospital abdominal pain and vomiting has been diagnosed with ileus/obstruction.Patient is status post open expiratory laparotomy with lysis o f adhesion excision of small bowel tumor x 3 closure of decompressive enterostomy and drainage of abdominal ascites completed on 10/16/2023. On today's evaluation that is 11/12/2023, Patient is afebrile patient is currently on room air and denies having any shortness of breath, the patient denies any chest pain or cough, the patient symptom remains to be abdominal distention and discomfort still have the NG no vomiting no bowel movement. Patient white count is 10.7, creatinine 0.55 blood culture repeat has been negative Objective - Vital Signs Vital signs: Vital Signs Temp 98.7 F 11/12/23 15:52 Pulse 97 11/12/23 15:52 Resp 18 11/12/23 15:52 BP 118/86 11/12/23 15:52 Pulse Ox 96 11/12/23 15:52 FiO2 Intake & Output 11/11/23 11/12/23 11/12/23 18:59 06:59 18:59 Intake Total 1420 1076 210 Output Total 2600 1502 1200 Balance -1180 -426 -990 Weight 45.8 kg Intake: IV 210 Invasive Line 8 10 Intake, IV Titration 1180 1076 Amount Fluconazole in NaCl,Iso- 200 Osm 400 mg In Saline 1 200ml.bag @ 100 mls/hr IVPB DAILY [facility] Rx#: [id number] Mvi, Adult No.4 with Vit 780 K 10 ml Trace (Conc-1Ml/ Dose) 1 ml Sodium Chloride 4Meq/ml Vial 56 meq Sodium Acetate 80 meq Potassium Acetate 12 meq Calcium Gluconate 1 gm Magnesium Sulfate gm 2 gm Potassium Phosphate 6 mmol In Amino Acids 5 %/ Dextrose 20 % 1,000 ml @ 70 mls/hr IV .BY DURATION [facility] Rx#:[id number] Piperacillin-Tazobactam 3 200 .375 gm In Sodium Chloride 0.9% 100 ml @ 25 mls/hr IVPB Q8HR [facility] Rx# :[id number] Sodium Chloride 4Meq/ml 1076 Vial 56 meq Sodium Acetate 80 meq Potassium Acetate 12 meq Calcium Gluconate 1 gm Magnesium Sulfate gm 2 gm Potassium Phosphate 6 mmol In Amino Acids 5 %/Dextrose 20 % 1,000 ml @ 70 mls/hr IV .BY DURATION [facility] Rx#: [id number] Other 240 Output: Gastric Drainage 1950 600 Urine 650 900 400 Stool 2 800 Other: Voiding Method Urinal Urinal - Exam GENERAL DESCRIPTION: Middle-age male up in the chair in no distress RESPIRATORY SYSTEM: Unlabored breathing , decreased breath sounds at bases HEART: S1 S2 regular rate and rhythm , ABDOMEN: Soft , mild distention and tenderness EXTREMITIES: No edema feet - Labs CBC & Chem 7: 11/12/23 10:30 11/12/23 10:30 Labs: Abnormal Lab Results - Last 24 Hours (Table) 11/11/23 11/12/23 11/12/23 Range/Units 23:51 06:00 10:30 WBC (3.8-10.6) k/uL RBC (4.30-5.90) m/uL Hgb (13.0-17.5) gm/dL Hct (39.0-53.0) % MCV (80.0-100.0) fL MCH (25.0-35.0) pg MCHC (31.0-37.0) g/dL RDW (11.5-15.5) % Plt Count (150-450) k/uL Neutrophils # (1.3-7.7) k/uL Lymphocytes # (1.0-4.8) k/uL Sodium 136 L (137-145) mmol/L Creatinine 0.55 L (0.66-1.25) mg/dL Glucose 147 H (74-99) mg/dL POC Glucose (mg/dL) 161 H 154 H (70-110) mg/dL Calcium 8.0 L (8.4-10.2) mg/dL 11/12/23 11/12/23 11/12/23 Range/Units 10:30 11:41 16:34 WBC 10.7 H (3.8-10.6) k/uL RBC 3.54 L (4.30-5.90) m/uL Hgb 8.2 L (13.0-17.5) gm/dL Hct 28.2 L (39.0-53.0) % MCV 79.6 L (80.0-100.0) fL MCH 23.1 L (25.0-35.0) pg MCHC 29.0 L (31.0-37.0) g/dL RDW 17.3 H (11.5-15.5) % Plt Count 838 H (150-450) k/uL Neutrophils # 9.1 H (1.3-7.7) k/uL Lymphocytes # 0.8 L (1.0-4.8) k/uL Sodium (137-145) mmol/L Creatinine (0.66-1.25) mg/dL Glucose (74-99) mg/dL POC Glucose (mg/dL) 154 H 146 H (70-110) mg/dL Calcium (8.4-10.2) mg/dL Microbiology - Last 24 Hours (Table) 11/06/23 09:33 Blood Culture - Final Blood Assessment and Plan (1) Leukocytosis Current Visit: Yes Status: Acute Code(s): D72.829 - ELEVATED WHITE BLOOD CELL COUNT, UNSPECIFIED SNOMED Code(s): 960669710 (2) Ileus Current Visit: Yes Status: Acute Code(s): K56.7 - ILEUS, UNSPECIFIED SNOMED Code(s): 327077276 (3) MRSA (methicillin resistant staph aureus) culture positive Current Visit: Yes Status: Acute Code(s): Z22.322 - CARRIER OR SUSPECTED CARRIER OF METHICILLIN RESIS STAPH SNOMED Code(s): 777882359 (4) Candidemia Current Visit: Yes Status: Acute Code(s): B37.7 - CANDIDAL SEPSIS SNOMED Code(s): 161032260 Plan: 1patient presented hospital with sepsis in this patient who did have an elevated white count tachycardia source likely abdominal pain this patient did have predominantly abdominal symptoms with abdominal pain and vomiting CT has been suggestive of ileus/obstruction and will likely need to cover for the enteric gram-negative both aerobes and anaerobes 2- cultures from the [facility] grew MRSA as well as Enterococcus, for the patient received adequate Unasyn and vancomycin therapy 3-patient is status post extensive abdominal surgery did not mention any perforation or abscess no cultures 4- patient did have a new fever on 11/02/2023 with blood culture positive for Courtney parapsilosis PICC line was discontinued and the catheter positive for yeast as well patient also have a port from which blood culture has been obtained which are so far negative, patient is currently covered with IV cefepime 5-patient noticed to have worsening of his white count and evidence of new large bowel obstruction possible abdominal source, patient is currently covered with Zosyn patient white count is trending down, patient did have a colonoscopy did not mention any obstructive lesion will monitor clinical course closely Dictation was produced using [employer] dictation software. please excuse any gram matical, word or spelling errors. Time with Patient: Less than 30
[2023-11-12 20:21] LABS: Glucose,Whole Blood 146 mg/dL (70-110)
[2023-11-13 00:31] LABS: Glucose,Whole Blood 128 mg/dL (70-110)
--- NOTE | 2023-11-13 05:51 | P.PN ---
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 He completed multiple days of IV antibiotics and discharged home on PO Augmentin and DEBORA drain. He presented to the emergency department on 10/09/2023 with a chief complaint of increased abdominal pain, abdominal distention and multiple episodes of bilious vomiting. Upon arrival in the emergency department, patient underwent full evaluation. Vital signs upon arrival showed BP 145/95, HR 101, RR 18, T 90 7.8F, 100% on RA. Labs were completed and revie wed CBC showed WBC count 18.5, hemoglobin 10.6, hematocrit 33.2, MCV 79, platelet 634. CMP showed sodium 134, bicarb 20, creatinine 0.48, glucose 167, albumin 2.9. Lipase 473. Lactic acid 1.4. CT abdomen and pelvis was completed revealing diffuse SB dilation with bowel containing gas, feces, and fluid suspicious for ileus versus small bowel obstruction, drainage catheter in place, and chronic pancreatitis changes. Patient reported having bowel movements despite abdominal distention and worsening pain. Patient was admitted to general surgery team and [facility] was consulted for medical management of this patient throughout hospitalization. DEBORA drain cultures positive for MRSA. Patient failed conservative management of small bowel obstruction and was taken for open laparotomy with lysis of adhesions and resection of small bowel tumor with wound VAC placement on 10/16/2023. Pathology sample was sent to lab for analysis and per pathology report, negative for histopathologic changes and negative for malignancy. Patient with postoperative ileus resulting in nausea and vomiting and reinsertion of NG tube on 10/26/2023 and again removal of NG tube on 10/29/2023. On the evening of 11/02/2023 patient was receiving blood transfusion and spiked an elevated temp as high as 101.6 F and tachycardia with heart rate 130s. Blood cultures were obtained and patient was started back on IV antibiotics with vancomycin and transferred to [facility] for closer monitoring. Blood cultures resulting positive for Courtney parapsilosis and patient was started on IV fluconazole 400 mg daily and Zosyn 3.375 g every 8 hours. On 11/03/2023 patient continued to have incontinent stools and underwent a fluoroscopic small bowel follow-through again revealing severe obstruction versus ileus. On 11/06/[address] abdomen and pelvis with contrast was completed revealing multiple dilated loops of bowel with air-fluid and concerns of possible distal colonic obstruction, chronic pancreatitis, and possible mass posterior medial left lung base. Patient with persistent nausea and vomiting and NG tube was reinserted on 11/09/2023. Rec'd colonoscopy with poor prep on 11/11 - negative for obstructive lesions or malignancy, nondiagnostic for colonic polyps, but did show sigmoid volvulus which was reduced. He is tentatively scheduled for robotic left colectomy on Friday. Other Diagnostics: -Echocardiogram completed revealing a preserved EF of 60 to 65% with small pericardial effusion without tamponade physiology. Subjective: Patient seen and fully evaluated at bedside this morning. He does report ongoing pain, distention. Patient does also report having passed flatus several times in the last 24 hours. Discussed the case with nursing, who confirms that patient endorsed passing flatus to him. Still with significant NG tube output approximately 650 cc in the last 24 hours. Patient did undergo colonoscopy yesterday, but had very poor prep Aronchick 4 out of 5; findings were negative for obstructive lesions or malignancy, nondiagnostic for colonic polyps, but did show sigmoid volvulus which was reduced. Physical exam: Gen: In NAD, non-toxic HEENT: normocephalic, atraumatic, hearing acuity is intant, mucous membranes moist CVS: perfusing all extremities well, no pitting edema, Respiratory: symmetric chest expansion, no accessory muscle use, GI: soft, NTTP, ND, : no suprapubic tenderness, no CVA tenderness MSK/Derm: no rashes, cyanosis Neuro: CN II-XII intact, no motor weakness, Psych: cooperative, euthymic mood, judgment and insight is intact Assessment and Plan of Care: Courtney parapsilosis bacteremia Invasive Candidiasis -Blood cultures drawn 11/02/2023 positive for Courtney parapsilosis. -PICC line culture drawn 11/04/2023 positive for Courtney species, not albicans. -Repeat blood cultures drawn 11/05/2023 and 11/06/2023 showing no growth to date. -Patient to continue IV fluconazole 400 mg daily and Zosyn 3.375 g every 8 hours. -Infectious disease following, reviewed documentation in chart. -HIV screen to r/o immunocompromising condition given long-duration of lympho penia -Consideration of vascular surgery consult for removal of mediport -1,3 - beta - D - glucan may be helpful baseline for treatment duration Sinus tachycardia, likely related to malnutrition status -Sinus tachycardia, possibly related to pain resulting from worsening postoperative ileus vs infection with bacteremia. -Cardiology eval completed, continue metoprolol 50 mg twice daily. -Continue telemetry monitoring Recurrent postoperative ileus with new distal colonic obstruction Recurrent small bowel obstruction requiring open laparotomy with lysis of adhesions and resection of small bowel tumor on 10/16/2023 History of small bowel perforation status post emergent small bowel resection with [id number] duodenojejunostomy 09/06/2023 Retroperitoneal mass History of GERD with erosive esophagitis History of gastritis Elevated lipase with history of chronic pancreatitis -General surgery following, plan for robotic left hemicolectomy -NGT - 650cc in last 24hr -Zofran 4 mg IVP every 8 hours PRN -Continue Reglan 10 mg IVP every 6 hours scheduled -Received 2 doses of Relistor to increase bowel motility on 11/05, consider repeating if ileus remains an issue after resolution of bowel obstruction -Continue Protonix 40 mg via NGT daily Severe protein calorie malnutrition with BMI of 16.9 kg/m -Dietitian following managing TPN and lipids. MRSA infection, completed treatment -DEBORA drain site culture was positive for MRSA and group D enterococcus faecalis. -Infectious disease following. Patient completed extended antibiotic course with Unasyn and vancomycin for treatment of MRSA infection. -Blood cultures drawn 10/08/2023 showed no growth in 2 of 2 sets. Acute blood loss anemia superimposed on anemia of chronic disease. Reactive Thrombocytosis Hemoglobin stable at 8.2. Will continue to monitor and transfuse if needed for hemoglobin less than 7. Iron profile resulting showing total iron of 17, TIBC of 171, iron percentage 9.94, transferrin of 122, and ferritin of 366. Patient completed 3 day course of IV Ferrlecit 125 mg daily and started on ferrous sulfate 325 mg daily. -Thrombocytosis likely reflects state of inflammation, CRP was also elevated Pressure ulcer to coccyx present on arrival. Wound care following for clair gooden. CODE STATUS: FULL CODE DVT Prophylaxis: heparin 5000SQ q12hr GI Prophylaxis: Protonix Thank you for allowing us to participate in the care of this pleasant patient. Do not hesitate to contact us with questions. Someone can be reached from the [facility] hospitalist group all hours of the day at [phone] or via perfect serve. This document was prepared using [employer] dictation software. Please allow for errors in hydrology professor, while rare they do occur. Objective - Vital Signs Vital signs: Vital Signs Temp 98.1 F 11/13/23 04:00 Pulse 109 H 11/13/23 04:00 Resp 16 11/13/23 04:00 BP 127/79 11/13/23 00:00 Pulse Ox 100 11/13/23 04:00 FiO2 Intake & Output 11/12/23 11/12/23 11/13/23 06:59 18:59 06:59 Intake Total 1076 1297 Output Total 1502 1200 1100 Balance -426 97 -1100 Weight 45.8 kg Intake: IV 210 Invasive Line 8 10 Intake, IV Titration 1076 1087 Amount Mvi, Adult No.4 with Vit 1087 K 10 ml Trace (Conc-1Ml/ Dose) 1 ml Sodium Chloride 4Meq/ml Vial 56 meq Sodium Acetate 80 meq Potassium Acetate 12 meq Calcium Gluconate 1 gm Magnesium Sulfate gm 2 gm Potassium Phosphate 6 mmol In Amino Acids 5 %/ Dextrose 20 % 1,000 ml @ 70 mls/hr IV .BY DURATION [facility] Rx#:[id number] Sodium Chloride 4Meq/ml 1076 Vial 56 meq Sodium Acetate 80 meq Potassium Acetate 12 meq Calcium Gluconate 1 gm Magnesium Sulfate gm 2 gm Potassium Phosphate 6 mmol In Amino Acids 5 %/Dextrose 20 % 1,000 ml @ 70 mls/hr IV .BY DURATION [facility] Rx#: [id number] Output: Gastric Drainage 600 Urine 492 501 4740 Stool 2 800 Other: Voiding Method Urinal Urinal Urinal - Labs CBC & Chem 7: 11/12/23 10:30 11/12/23 10:30 Labs: Abnormal Lab Results - Last 24 Hours (Table) 11/12/23 11/12/23 11/12/23 Range/Units 06:00 10:30 10:30 WBC 10.7 H (3.8-10.6) k/uL RBC 3.54 L (4.30-5.90) m/uL Hgb 8.2 L (13.0-17.5) gm/dL Hct 28.2 L (39.0-53.0) % MCV 79.6 L (80.0-100.0) fL MCH 23.1 L (25.0-35.0) pg MCHC 29.0 L (31.0-37.0) g/dL RDW 17.3 H (11.5-15.5) % Plt Count 838 H (150-450) k/uL Neutrophils # 9.1 H (1.3-7.7) k/uL Lymphocytes # 0.8 L (1.0-4.8) k/uL Sodium 136 L (137-145) mmol/L Creatinine 0.55 L (0.66-1.25) mg/dL Glucose 147 H (74-99) mg/dL POC Glucose (mg/dL) 154 H (70-110) mg/dL Calcium 8.0 L (8.4-10.2) mg/dL 11/12/23 11/12/23 11/12/23 Range/Units 11:41 16:34 20:12 WBC (3.8-10.6) k/uL RBC (4.30-5.90) m/uL Hgb (13.0-17.5) gm/dL Hct (39.0-53.0) % MCV (80.0-100.0) fL MCH (25.0-35.0) pg MCHC (31.0-37.0) g/dL RDW (11.5-15.5) % Plt Count (150-450) k/uL Neutrophils # (1.3-7.7) k/uL Lymphocytes # (1.0-4.8) k/uL Sodium (137-145) mmol/L Creatinine (0.66-1.25) mg/dL Glucose (74-99) mg/dL POC Glucose (mg/dL) 154 H 146 H 146 H (70-110) mg/dL Calcium (8.4-10.2) mg/dL 11/13/23 Range/Units 00:26 WBC (3.8-10.6) k/uL RBC (4.30-5.90) m/uL Hgb (13.0-17.5) gm/dL Hct (39.0-53.0) % MCV (80.0-100.0) fL MCH (25.0-35.0) pg MCHC (31.0-37.0) g/dL RDW (11.5-15.5) % Plt Count (150-450) k/uL Neutrophils # (1.3-7.7) k/uL Lymphocytes # (1.0-4.8) k/uL Sodium (137-145) mmol/L Creatinine (0.66-1.25) mg/dL Glucose (74-99) mg/dL POC Glucose (mg/dL) 128 H (70-110) mg/dL Calcium (8.4-10.2) mg/dL
[2023-11-13 06:17] LABS: Glucose,Whole Blood 137 mg/dL (70-110)
--- NOTE | 2023-11-13 08:37 | XR ---
EXAMINATION TYPE: XR abdomen 2V DATE OF EXAM: 11/13/2023 6:53 AM CLINICAL INDICATION:Male, 43 years old with history of large bowel obstruction, volvulus; COMPARISON: 11/09/2023. TECHNIQUE: Two views of the abdomen were obtained. FINDINGS/IMPRESSION: 1. Similar diffuse gaseous dilation of bowel. Consider having the patient rotate positions to clear the gas which is stuck in the anterior nondependent portion of the abdomen on prior CT abdomen and pe lvis. The gas cannot exit the rectum which is more in the dependent portion of the body when the kasi ent is supine. 2. Nasogastric tube projects in the diaphragm. 3. Central venous catheter terminates at the superior cavoatrial junction.
[2023-11-13 10:36] LABS: Anisocytosis Slight; HCT 28.2 % (39.0-53.0); HGB 8.4 gm/dL (13.0-17.5); Hypochromasia Moderate; MCH 22.9 pg (25.0-35.0); MCHC 29.8 g/dL (31.0-37.0); MCV 76.7 fL (80.0-100.0); Mean Platelet Volume 7.3; Microcytosis Slight; Platelet Count 853 k/uL (150-450); RBC 3.68 m/uL (4.30-5.90); RDW 17.3 % (11.5-15.5); WBC 12.4 k/uL (3.8-10.6)
[2023-11-13 11:19] LABS: Glucose,Whole Blood 172 mg/dL (70-110)
[2023-11-13 11:59] LABS: African American GFR (CKD) >90 (>60 ml/min/1.73 sqM); Anion Gap 9 mmol/L; Blood Urea Nitrogen 22 mg/dL (9-20); Calcium 8.1 mg/dL (8.4-10.2); Carbon Dioxide 22 mmol/L (22-30); Chloride 104 mmol/L (98-107); Glucose 151 mg/dL (74-99); Magnesium 1.7 mg/dL (1.6-2.3); Non-African American GFR(CKD) >90 (>60 ml/min/1.73 sqM); Phosphorus 4.1 mg/dL (2.5-4.5); Potassium 4.1 mmol/L (3.5-5.1); Sodium 135 mmol/L (137-145)
[2023-11-13] MEDS: MAGNESIUM SULFATE-D5W PMX 1 GM in DEXTROSE/WATER 1 100ML.BAG IVPB SCH (13:05)
--- NOTE | 2023-11-13 14:52 | P.PN ---
Subjective Progress Note Date: 11/13/23 Principal diagnosis: Reason for follow-up is fever/ileus/obstruction Patient is a 43-year-old -[place] male past medical history significant for right-sided jaw cancer for the patient be treated with chemoradiation therapy, patient also have a history of alcohol abuse possible acute and chronic pancreatitis patient recently did have a prolonged hospital stay for bowel obstruction and this patient who did have a perforated small bowel and status post resection on 09/06/2023 did have prolonged ileus, now presenting back to the hospital abdominal pain and vomiting has been diagnosed with ileus/obstruction.Patient is status post open expiratory laparotomy with lysis o f adhesion excision of small bowel tumor x 3 closure of decompressive enterostomy and drainage of abdominal ascites completed on 10/16/2023. On today's evaluation that is 11/13/2023, patient has been afebrile, patient is breathing comfortably and is currently on room air, patient denies having any si gnificant cough no chest pain shortness of breath, patient still have the NG and denies any vomiting symptomatic abdominal discomfort no bowel movement. Patient white count is 12.4 creatinine 0.5 3 repeat blood culture has been negative Objective - Vital Signs Vital signs: Vital Signs Temp 97.7 F 11/13/23 11:28 Pulse 104 H 11/13/23 11:28 Resp 16 11/13/23 11:28 BP 125/68 11/13/23 11:28 Pulse Ox 97 11/13/23 11:28 FiO2 Intake & Output 11/12/23 11/13/23 11/13/23 18:59 06:59 18:59 Intake Total 1297 100 10 Output Total 1200 2000 300 Balance 97 -1900 -290 Weight 45.8 kg 94.4 kg Intake: IV 210 10 Invasive Line 8 10 Invasive Line 9 10 Intake, IV Titration 1087 100 Amount Mvi, Adult No.4 with Vit 1087 K 10 ml Trace (Conc-1Ml/ Dose) 1 ml Sodium Chloride 4Meq/ml Vial 56 meq Sodium Acetate 80 meq Potassium Acetate 12 meq Calcium Gluconate 1 gm Magnesium Sulfate gm 2 gm Potassium Phosphate 6 mmol In Amino Acids 5 %/ Dextrose 20 % 1,000 ml @ 70 mls/hr IV .BY DURATION [facility] Rx#:[id number] Piperacillin-Tazobactam 3 100 .375 gm In Sodium Chloride 0.9% 100 ml @ 25 mls/hr IVPB Q8HR [facility] Rx# :[id number] Output: Gastric Drainage 900 Urine 400 1100 300 Stool 800 Other: Voiding Method Urinal Urinal Urinal - Exam GENERAL DESCRIPTION: Middle-age male up in the chair in no distress RESPIRATORY SYSTEM: Unlabored breathing , decreased breath sounds at bases HEART: S1 S2 regular rate and rhythm , ABDOMEN: Soft , mild distention and tenderness EXTREMITIES: No edema feet - Labs CBC & Chem 7: 11/13/23 09:58 11/13/23 09:58 Labs: Abnormal Lab Results - Last 24 Hours (Table) 11/12/23 11/12/23 11/13/23 Range/Units 16:34 20:12 00:26 WBC (3.8-10.6) k/uL RBC (4.30-5.90) m/uL Hgb (13.0-17.5) gm/dL Hct (39.0-53.0) % MCV (80.0-100.0) fL MCH (25.0-35.0) pg MCHC (31.0-37.0) g/dL RDW (11.5-15.5) % Plt Count (150-450) k/uL Sodium (137-145) mmol/L BUN (9-20) mg/dL Creatinine (0.66-1.25) mg/dL Glucose (74-99) mg/dL POC Glucose (mg/dL) 146 H 146 H 128 H (70-110) mg/dL Calcium (8.4-10.2) mg/dL 11/13/23 11/13/23 11/13/23 Range/Units 05:59 09:58 09:58 WBC 12.4 H (3.8-10.6) k/uL RBC 3.68 L (4.30-5.90) m/uL Hgb 8.4 L (13.0-17.5) gm/dL Hct 28.2 L (39.0-53.0) % MCV 76.7 L (80.0-100.0) fL MCH 22.9 L (25.0-35.0) pg MCHC 29.8 L (31.0-37.0) g/dL RDW 17.3 H (11.5-15.5) % Plt Count 853 H (150-450) k/uL Sodium 135 L (137-145) mmol/L BUN 22 H (9-20) mg/dL Creatinine 0.53 L (0.66-1.25) mg/dL Glucose 151 H (74-99) mg/dL POC Glucose (mg/dL) 137 H (70-110) mg/dL Calcium 8.1 L (8.4-10.2) mg/dL 11/13/23 Range/Units 11:15 WBC (3.8-10.6) k/uL RBC (4.30-5.90) m/uL Hgb (13.0-17.5) gm/dL Hct (39.0-53.0) % MCV (80.0-100.0) fL MCH (25.0-35.0) pg MCHC (31.0-37.0) g/dL RDW (11.5-15.5) % Plt Count (150-450) k/uL Sodium (137-145) mmol/L BUN (9-20) mg/dL Creatinine (0.66-1.25) mg/dL Glucose (74-99) mg/dL POC Glucose (mg/dL) 172 H (70-110) mg/dL Calcium (8.4-10.2) mg/dL Assessment and Plan (1) Leukocytosis Current Visit: Yes Status: Acute Code(s): D72.829 - ELEVATED WHITE BLOOD CELL COUNT, UNSPECIFIED SNOMED Code(s): 731335345 (2) Ileus Current Visit: Yes Status: Acute Code(s): K56.7 - ILEUS, UNSPECIFIED SNOMED Code(s): 842151889 (3) MRSA (methicillin resistant staph aureus) culture positive Current Visit: Yes Status: Acute Code(s): Z22.322 - CARRIER OR SUSPECTED CARRIER OF METHICILLIN RESIS STAPH SNOMED Code(s): 829215135 (4) Candidemia Current Visit: Yes Status: Acute Code(s): B37.7 - CANDIDAL SEPSIS SNOMED Code(s): 450528578 Plan: 1patient presented hospital with sepsis in this patient who did have an elevated white count tachycardia source likely abdominal pain this patient did have predominantly abdominal symptoms with abdominal pain and vomiting CT has been suggestive of ileus/obstruction and will likely need to cover for the enteric gram-negative both aerobes and anaerobes 2- cultures from the DEBORA grew MRSA as well as Enterococcus, for the patient received adequate Unasyn and vancomycin therapy 3-patient is status post extensive abdominal surgery did not mention any perforation or abscess no cultures 4- patient did have a new fever on 11/02/2023 with blood culture positive for Courtney parapsilosis PICC line was discontinued and the catheter positive for yeast as well patient also have a port from which blood culture has been obtained which are so far negative, patient is currently covered with IV cefepime 5-patient noticed to have worsening of his white count and evidence of new large bowel obstruction possible abdominal source, patient did have a colonoscopy did not mention any obstructive lesion patient to continue with the Iman wang with slightly up today but will monitor closely overall prognosis remains to be guarded Dictation was produced using [employer] dictation software. please excuse any grammatical, word or spelling errors. Time with Patient: Less than 30
--- NOTE | 2023-11-13 15:20 | P.PN ---
Subjective Progress Note Date: 11/13/23 CHIEF COMPLAINT: Recurrent small bowel obstruction HISTORY OF PRESENT ILLNESS: Patient is status post open exploratory laparotomy with lysis of adhesions, excision of small bowel tumor x 3 closure of decom pressive enterostomy, drainage of abdominal ascites and partial omentectomy on 10/16/23. Patient had decompressive colonoscopy for sigmoid volvulus yesterday. Colonoscopy to the ascending colon. Patient did have flatus and a bowel movement last night. Patient is hesitant to proceed with any surgery at this time. Afebrile. Mildly tachycardic. WBC 12.4 Hgb 8.4 platelets 853 sodium 135 creatinine 0.53 PHYSICAL EXAM: VITAL SIGNS: Reviewed GENERAL: Well-developed in no acute distress. HEENT: No sclera icterus. Extraocular movements grossly intact. Moist buccal mucosa. Head is atraumatic, normocephalic. Hears conversational speech. No nasal drainage. NECK: Supple without lymphadenopathy. CHEST: Non-labored respirations and equal bilateral excursions. CARDIOVASCULAR: Palpable 2+ radial pulses. ABDOMEN: distended. incisional dressing clean dry and intact. MUSCULOSKELETAL: No clubbing or cyanosis. NEUROLOGIC: No focal or lateralizing signs. Cranial nerves II through XII narendra ssly intact. PSYCH: Appropriate affect. Alert and oriented to person, place and time. SKIN: Stage II coccyx ulcer ASSESSMENT: 1. Distal colonic obstruction 2. Small bowel obstruction status post lysis of adhesions on 10/16/2023 3. History of perforated small bowel 4. Severe protein malnutrition 5. Chronic constipation 6. Dehydration 7. Prior history of tracheostomy and mandibular cancer 8. History of marijuana use. 9. Expected ileus 10. Iron deficiency anemia 11. Underweight, BMI 16.5 12. Supraventricular tachycardia 13. MRSA DEBORA drain fluid 14. Possible pneumonia 15. Pressure ulcer of the coccyx self-induced due to patient's choice of immobility 16. Candidemia due to PICC line infection. PICC line removed 17. Sigmoid volvulus PLAN: -Clamp NG tube -Start full liquid diet -Patient wishes to hold off on surgery for now -Continue conservative management -Patient is tentatively scheduled for a robotic left colectomy on 11/17/[address] Easton -Continue TPN for nutrition support -Continue antibiotics per ID -Encourage patient ambulate -DVT prophylaxis Heparin Physician Moving Worker note has been reviewed by physician. Signing provider agrees with the documented findings, assessment, and plan of care. Objective - Vital Signs Vital signs: Vital Signs Temp 97.7 F 11/13/23 11:28 Pulse 104 H 11/13/23 11:28 Resp 16 11/13/23 11:28 BP 125/68 11/13/23 11:28 Pulse Ox 97 11/13/23 11:28 FiO2 Intake & Output 11/12/23 11/13/23 11/13/23 18:59 06:59 18:59 Intake Total 1297 100 10 Output Total 1200 2000 Balance 97 -1900 10 Weight 45.8 kg 94.4 kg Intake: IV 210 10 Invasive Line 8 10 Invasive Line 9 10 Intake, IV Titration 1087 100 Amount Mvi, Adult No.4 with Vit 1087 K 10 ml Trace (Conc-1Ml/ Dose) 1 ml Sodium Chloride 4Meq/ml Vial 56 meq Sodium Acetate 80 meq Potassium Acetate 12 meq Calcium Gluconate 1 gm Magnesium Sulfate gm 2 gm Potassium Phosphate 6 mmol In Amino Acids 5 %/ Dextrose 20 % 1,000 ml @ 70 mls/hr IV .BY DURATION [facility] Rx#:[id number] Piperacillin-Tazobactam 3 100 .375 gm In Sodium Chloride 0.9% 100 ml @ 25 mls/hr IVPB Q8HR [facility] Rx# :[id number] Output: Gastric Drainage 900 Urine 400 1100 Stool 800 Other: Voiding Method Urinal Urinal Urinal - Labs CBC & Chem 7: 11/13/23 09:58 11/13/23 09:58 Labs: Abnormal Lab Results - Last 24 Hours (Table) 11/12/23 11/12/23 11/13/23 Range/Units 16:34 20:12 00:26 WBC (3.8-10.6) k/uL RBC (4.30-5.90) m/uL Hgb (13.0-17.5) gm/dL Hct (39.0-53.0) % MCV (80.0-100.0) fL MCH (25.0-35.0) pg MCHC (31.0-37.0) g/dL RDW (11.5-15.5) % Plt Count (150-450) k/uL Sodium (137-145) mmol/L BUN (9-20) mg/dL Creatinine (0.66-1.25) mg/dL Glucose (74-99) mg/dL POC Glucose (mg/dL) 146 H 146 H 128 H (70-110) mg/dL Calcium (8.4-10.2) mg/dL 11/13/23 11/13/23 11/13/23 Range/Units 05:59 09:58 09:58 WBC 12.4 H (3.8-10.6) k/uL RBC 3.68 L (4.30-5.90) m/uL Hgb 8.4 L (13.0-17.5) gm/dL Hct 28.2 L (39.0-53.0) % MCV 76.7 L (80.0-100.0) fL MCH 22.9 L (25.0-35.0) pg MCHC 29.8 L (31.0-37.0) g/dL RDW 17.3 H (11.5-15.5) % Plt Count 853 H (150-450) k/uL Sodium 135 L (137-145) mmol/L BUN 22 H (9-20) mg/dL Creatinine 0.53 L (0.66-1.25) mg/dL Glucose 151 H (74-99) mg/dL POC Glucose (mg/dL) 137 H (70-110) mg/dL Calcium 8.1 L (8.4-10.2) mg/dL 11/13/23 Range/Units 11:15 WBC (3.8-10.6) k/uL RBC (4.30-5.90) m/uL Hgb (13.0-17.5) gm/dL Hct (39.0-53.0) % MCV (80.0-100.0) fL MCH (25.0-35.0) pg MCHC (31.0-37.0) g/dL RDW (11.5-15.5) % Plt Count (150-450) k/uL Sodium (137-145) mmol/L BUN (9-20) mg/dL Creatinine (0.66-1.25) mg/dL Glucose (74-99) mg/dL POC Glucose (mg/dL) 172 H (70-110) mg/dL Calcium (8.4-10.2) mg/dL
[2023-11-13 16:21] LABS: Glucose,Whole Blood 175 mg/dL (70-110)
[2023-11-13] MEDS: 1: MVI, ADULT NO.4 WITH VIT K 10 ML, TRACE (CONC-1ML/DOSE) 1 ML, SODIUM CHLORIDE 4MEQ/ML IV SCH (17:12)
[2023-11-13 21:09] LABS: HIV 2 AB Non-Reactive (Non-Reactive); HIV AB P24 Non-Reactive (Non-Reactive); HIV P24 AG Non-Reactive (Non-Reactive)
[2023-11-14 00:15] LABS: Glucose,Whole Blood 87 mg/dL (70-110)
[2023-11-14 06:08] LABS: Glucose,Whole Blood 156 mg/dL (70-110)
--- NOTE | 2023-11-14 08:29 | P.PN ---
Subjective Progress Note Date: 11/14/23 CHIEF COMPLAINT: Bowel obstruction HISTORY OF PRESENT ILLNESS: The patient is a 43-year-old male status post exploratory laparotomy with lysis of adhesions for small bowel obstruction, 10/16/2023. "Doc I feel great." He is passing gas. He is having bowel movements. No further abdominal pain. No further abdominal distention. He is tolerating diet. ROS: No fevers or chills. No new chest pain. No productive sputum PHYSICAL EXAM: VITAL SIGNS: Reviewed CONSTITUTIONAL: Well developed and in no acute distress. EYES: Conjuctivae without sclera icterus. Extraocular movements grossly intact. HEAD, EARS, NOSE, THROAT: Moist buccal mucosa. Head is atraumatic, normocephalic. Hears conversational speech. RESPIRATORY: Non-labored respirations and equal bilateral excursions. CARDIOVASCULAR: Palpable 2+ radial pulses. ABDOMEN: Soft. Nondistended. MUSCULOSKELETAL: No gross deformity of the lower extremities noted. No clubbing. No cyanosis. SKIN: Good skin turgor. Well perfused. NEUROLOGIC: Cranial nerves II through XII grossly intact. No focal or lateralizing signs. PSYCH: Appropriate affect. Alert and oriented to person, place and time. CLINICAL LABS: Reviewed. ASSESSMENT: 1. Small bowel obstruction 2. History of perforated small bowel 3. Severe protein malnutrition 4. Chronic constipation 5. Dehydration 6. Prior history of tracheostomy and mandibular cancer 7. History of marijuana use. 8. Expected ileus 9. Hypomagnesia 10. Iron deficiency anemia 11. Underweight, BMI 16.5 12. Supraventricular tachycardia 13. Large bowel obstruction 14. Abnormal CT scan for lung mass PLAN: 1. Clinically, ileus completely resolved after colonoscopy assessment demonstrating no acute neoplasm. 2. Patient may be discharge with low fiber diet. Objective - Vital Signs Vital signs: Vital Signs Temp 98.1 F 11/14/23 04:00 Pulse 98 11/14/23 04:00 Resp 14 11/14/23 04:00 BP 129/75 11/14/23 04:00 Pulse Ox 98 11/14/23 04:00 FiO2 Intake & Output 11/13/23 11/14/23 11/14/23 18:59 06:59 18:59 Intake Total 10 Output Total 300 1575 Balance -290 -1575 Weight 43 kg Intake: IV 10 Invasive Line 9 10 Output: Urine 300 1275 Stool 300 Other: Voiding Method Urinal Urinal # Voids 3 - Labs CBC & Chem 7: 11/13/23 09:58 11/13/23 09:58 Labs: Abnormal Lab Results - Last 24 Hours (Table) 11/13/23 11/13/23 11/13/23 Range/Units 09:58 09:58 11:15 WBC 12.4 H (3.8-10.6) k/uL RBC 3.68 L (4.30-5.90) m/uL Hgb 8.4 L (13.0-17.5) gm/dL Hct 28.2 L (39.0-53.0) % MCV 76.7 L (80.0-100.0) fL MCH 22.9 L (25.0-35.0) pg MCHC 29.8 L (31.0-37.0) g/dL RDW 17.3 H (11.5-15.5) % Plt Count 853 H (150-450) k/uL Sodium 135 L (137-145) mmol/L BUN 22 H (9-20) mg/dL Creatinine 0.53 L (0.66-1.25) mg/dL Glucose 151 H (74-99) mg/dL POC Glucose (mg/dL) 172 H (70-110) mg/dL Calcium 8.1 L (8.4-10.2) mg/dL 11/13/23 11/14/23 Range/Units 16:14 05:57 WBC (3.8-10.6) k/uL RBC (4.30-5.90) m/uL Hgb (13.0-17.5) gm/dL Hct (39.0-53.0) % MCV (80.0-100.0) fL MCH (25.0-35.0) pg MCHC (31.0-37.0) g/dL RDW (11.5-15.5) % Plt Count (150-450) k/uL Sodium (137-145) mmol/L BUN (9-20) mg/dL Creatinine (0.66-1.25) mg/dL Glucose (74-99) mg/dL POC Glucose (mg/dL) 175 H 156 H (70-110) mg/dL Calcium (8.4-10.2) mg/dL
[2023-11-14 09:14] VITALS: TEMP 97.4
--- NOTE | 2023-11-14 11:06 | P.PN ---
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 He completed multiple days of IV antibiotics and discharged home on PO Augmentin and DEBORA drain. He presented to the emergency department on 10/09/2023 with a chief complaint of increased abdominal pain, abdominal distention and multiple episodes of bilious vomiting. Upon arrival in the emergency department, patient underwent full evaluation. Vital signs upon arrival showed BP 145/95, HR 101, RR 18, T 90 7.8F, 100% on RA. Labs were completed and revie wed CBC showed WBC count 18.5, hemoglobin 10.6, hematocrit 33.2, MCV 79, platelet 634. CMP showed sodium 134, bicarb 20, creatinine 0.48, glucose 167, albumin 2.9. Lipase 473. Lactic acid 1.4. CT abdomen and pelvis was completed revealing diffuse SB dilation with bowel containing gas, feces, and fluid suspicious for ileus versus small bowel obstruction, drainage catheter in place, and chronic pancreatitis changes. Patient reported having bowel movements despite abdominal distention and worsening pain. Patient was admitted to general surgery team and [facility] was consulted for medical management of this patient throughout hospitalization. DEBORA drain cultures positive for MRSA. Patient failed conservative management of small bowel obstruction and was taken for open laparotomy with lysis of adhesions and resection of small bowel tumor with wound VAC placement on 10/16/2023. Pathology sample was sent to lab for analysis and per pathology report, negative for histopathologic changes and negative for malignancy. Patient with postoperative ileus resulting in nausea and vomiting and reinsertion of NG tube on 10/26/2023 and again removal of NG tube on 10/29/2023. On the evening of 11/02/2023 patient was receiving blood transfusion and spiked an elevated temp as high as 101.6 F and tachycardia with heart rate 130s. Blood cultures were obtained and patient was started back on IV antibiotics with vancomycin and transferred to [facility] for closer monitoring. Blood cultures resulting positive for Courtney parapsilosis and patient was started on IV fluconazole 400 mg daily and Zosyn 3.375 g every 8 hours. On 11/03/2023 patient continued to have incontinent stools and underwent a fluoroscopic small bowel follow-through again revealing severe obstruction versus ileus. On 11/06/[address] abdomen and pelvis with contrast was completed revealing multiple dilated loops of bowel with air-fluid and concerns of possible distal colonic obstruction, chronic pancreatitis, and possible mass posterior medial left lung base. Patient with persistent nausea and vomiting and NG tube was reinserted on 11/09/2023. Rec'd colonoscopy with poor prep on 11/11 - negative for obstructive lesions or malignancy, nondiagnostic for colonic polyps, but did show sigmoid volvulus which was reduced. He is tentatively scheduled for robotic left colectomy on Friday. Other Diagnostics: -Echocardiogram completed revealing a preserved EF of 60 to 65% with small pericardial effusion without tamponade physiology. Subjective: Patient seen and fully evaluated at bedside this morning. Pt pulled out his NGT overnight. He did have a BM. Physical exam: Gen: In NAD, non-toxic HEENT: normocephalic, atraumatic, hearing acuity is intant, mucous membranes moist CVS: perfusing all extremities well, no pitting edema, Respiratory: symmetric chest expansion, no accessory muscle use, GI: soft, NTTP, ND, : no suprapubic tenderness, no CVA tenderness MSK/Derm: no rashes, cyanosis Neuro: CN II-XII intact, no motor weakness, Psych: cooperative, euthymic mood, judgment and insight is intact Assessment and Plan of Care: Courtney parapsilosis bacteremia Invasive Candidiasis -Blood cultures drawn 11/02/2023 positive for Courtney parapsilosis. -PICC line culture drawn 11/04/2023 positive for Courtney species, not albicans. -Repeat blood cultures drawn 11/05/2023 and 11/06/2023 showing no growth to date. -Patient to continue IV fluconazole 400 mg daily and Zosyn 3.375 g every 8 hours. -Infectious disease following, reviewed documentation in chart. -HIV screen to r/o immunocompromising condition given long-duration of lymphopenia was negative -1,3 - beta - D - glucan may be helpful baseline for treatment duration -Pt is cleared from medicine point of view for discharge home once abx coverage is decided by infectious disease, remaining med rec addressed, except as below -defer pain medications, bowel regimen to primary team -cardiology follow up is recommended, placed in d/c Sinus tachycardia, likely related to malnutrition status -Sinus tachycardia, possibly related to pain resulting from worsening postoperative ileus vs infection with bacteremia. -Cardiology eval completed, continue metoprolol 50 mg twice daily. -Continue telemetry monitoring Recurrent postoperative ileus with new distal colonic obstruction Recurrent small bowel obstruction requiring open laparotomy with lysis of adhesions and resection of small bowel tumor on 10/16/2023 History of small bowel perforation status post emergent small bowel resection with [id number] duodenojejunostomy 09/06/2023 Retroperitoneal mass History of GERD with erosive esophagitis History of gastritis Elevated lipase with history of chronic pancreatitis -Zofran 4 mg IVP every 8 hours PRN -Continue Reglan 10 mg IVP every 6 hours scheduled -Received 2 doses of Relistor to increase bowel motility on 11/05, consider repeating if ileus remains an issue after resolution of bowel obstruction -Continue Protonix 40 mg via NGT daily Severe protein calorie malnutrition with BMI of 16.9 kg/m -Dietitian following managing TPN and lipids. MRSA infection, completed treatment -DEBORA drain site culture was positive for MRSA and group D enterococcus faecalis. -Infectious disease following. Patient completed extended antibiotic course with Unasyn and vancomycin for treatment of MRSA infection. -Blood cultures drawn 10/08/2023 showed no growth in 2 of 2 sets. Acute blood loss anemia superimposed on anemia of chronic disease. Reactive Thrombocytosis Hemoglobin stable at 8.2. Will continue to monitor and transfuse if needed for hemoglobin less than 7. Iron profile resulting showing total iron of 17, TIBC of 171, iron percentage 9.94, transferrin of 122, and ferritin of 366. Patient completed 3 day course of IV Ferrlecit 125 mg daily and started on ferrous sulfate 325 mg daily. -Thrombocytosis likely reflects state of inflammation, CRP was also elevated Pressure ulcer to coccyx present on arrival. Wound care following for management. CODE STATUS: FULL CODE DVT Prophylaxis: heparin 5000SQ q12hr GI Prophylaxis: Protonix Thank you for allowing us to participate in the care of this pleasant patient. Do not hesitate to contact us with questions. Someone can be reached from the [facility] hospitalist group all hours of the day at [phone] or via perfect serve. This document was prepared using [employer] dictation software. Please allow for errors in tableau administrator, while rare they do occur. Objective - Vital Signs Vital signs: Vital Signs Temp 97.4 F L 11/14/23 09:13 Pulse 112 H 11/14/23 09:13 Resp 16 11/14/23 09:13 BP 112/69 11/14/23 09:13 Pulse Ox 97 11/14/23 09:13 FiO2 Intake & Output 11/13/23 11/14/23 11/14/23 18:59 06:59 18:59 Intake Total 10 Output Total 300 1575 400 Balance -290 -1575 -400 Weight 43 kg Intake: IV 10 Invasive Line 9 10 Output: Urine 300 1275 400 Stool 300 Other: Voiding Method Urinal Urinal Urinal # Voids 3 - Labs CBC & Chem 7: 11/13/23 09:58 11/13/23 09:58 Labs: Abnormal Lab Results - Last 24 Hours (Table) 11/13/23 11/13/23 11/13/23 Range/Units 09:58 11:15 16:14 Sodium 135 L (137-145) mmol/L BUN 22 H (9-20) mg/dL Creatinine 0.53 L (0.66-1.25) mg/dL Glucose 151 H (74-99) mg/dL POC Glucose (mg/dL) 172 H 175 H (70-110) mg/dL Calcium 8.1 L (8.4-10.2) mg/dL 11/14/23 Range/Units 05:57 Sodium (137-145) mmol/L BUN (9-20) mg/dL Creatinine (0.66-1.25) mg/dL Glucose (74-99) mg/dL POC Glucose (mg/dL) 156 H (70-110) mg/dL Calcium (8.4-10.2) mg/dL
[2023-11-14 11:15] LABS: African American GFR (CKD) >90 (>60 ml/min/1.73 sqM); Anion Gap 10 mmol/L; Blood Urea Nitrogen 23 mg/dL (9-20); Calcium 7.7 mg/dL (8.4-10.2); Carbon Dioxide 20 mmol/L (22-30); Chloride 104 mmol/L (98-107); Glucose 137 mg/dL (74-99); Magnesium 1.7 mg/dL (1.6-2.3); Non-African American GFR(CKD) >90 (>60 ml/min/1.73 sqM); Phosphorus 3.5 mg/dL (2.5-4.5); Potassium 3.7 mmol/L (3.5-5.1); Sodium 134 mmol/L (137-145)
[2023-11-14 11:46] LABS: Glucose,Whole Blood 84 mg/dL (70-110)
[2023-11-14 13:38] VITALS: BMI 15.3
--- NOTE | 2023-11-14 15:02 | P.DS ---
Providers Date of admission: 10/08/23 19:13 Expected date of discharge: 11/14/23 Attending physician: Leta Easton Consults: 10/08/23 19:11 Consult Physician Routine Consulting Provider: Ronal Smith Consult Reason/Comments: sbo Do you want consulting provider notified?: Yes 10/09/23 15:02 Consult Physician Routine Consulting Provider: Fransisco White Consult Reason/Comments: sepsis Do you want consulting provider notified?: Yes 11/01/23 15:23 Consult Physician Routine Consulting Provider: Roderick Sena Consult Reason/Comments: persistant sinus tach HR 140's Do you want consulting provider notified?: Yes Primary care physician: Stated None Hospital Course: Discharge diagnosis 1. Distal colonic obstruction 2. Small bowel obstruction status post lysis of adhesions on 10/16/2023 3. History of perforated small bowel 4. Severe protein malnutrition 5. Chronic constipation 6. Dehydration 7. Prior history of tracheostomy and mandibular cancer 8. History of marijuana use. 9. Expected ileus 10. Iron deficiency anemia 11. Underweight, BMI 16.5 12. Supraventricular tachycardia 13. MRSA DEBORA drain fluid 14. Possible pneumonia 15. Pressure ulcer of the coccyx self-induced due to patient's choice of immobility 16. Candidemia due to PICC line infection. PICC line removed 17. Sigmoid volvulus Hospital course This is a 43-year-old male who presented with abdominal pain. He had a prolonged hospitalization initially due to recurrent small bowel obstruction and required open exploratory laparotomy with lysis of adhesions, excision of small bowel tumor x 3 closure of decompressive enterostomy, drainage of abdominal ascites and partial omentectomy on 10/16/23. Patient had an expected ileus and also had PICC line infection with yeast. Continued to have issues with abdominal pain and abdominal distention and unable to tolerate diet. He was on TPN for nutrition support. There were concerns for possible sigmoid volvulus and a distal colonic obstruction. Patient then had decompressive colonoscopy for sigmoid volvulus and. Colonoscopy to the ascending colon on October 12, 2023. Patient was able to tolerate diet. He is having bowel movements and flatus. Abdominal distention improving. His ileus has resolved. Patient is up and ambulating. He is afebrile. And is stable for discharge. Physician Statue Carver note has been reviewed by physician. Signing provider agrees with the documented findings, assessment, and plan of care. Patient Condition at Discharge: Stable Plan - Discharge Summary Discharge Rx Participant: No New Discharge Prescriptions: New Metoprolol Tartrate [Lopressor] 50 mg PO BID #60 tab amLODIPine [Norvasc] 5 mg PO DAILY #30 tab Acetaminophen Tab [Tylenol] 650 mg PO Q6HR tab Fluconazole in NaCl,Iso-Osm [Diflucan 400 mg/200 ml IVPB] 400 mg IVPB DAILY 7 Days each Piperacillin-Tazobactam [Zosyn] 3.375 gm IVPB Q8HR #7 each Thiamine [Vitamin B-1] 100 mg PO DAILY #20 tablet Continue Pantoprazole [Protonix] 40 mg PO DAILY 30 Days #30 tab Lactulose [Cephulac] 30 gm PO DAILY PRN PRN Reason: Constipation Metoclopramide [Reglan] 5 mg PO ACHS PRN #60 tab PRN Reason: Nausea Discontinued Ibuprofen [Motrin] 600 mg PO Q6HR PRN #30 tab PRN Reason: Pain Control Discharge Medication List Metoclopramide [Reglan] 5 mg PO ACHS PRN #60 tab 09/18/23 [Rx] Pantoprazole [Protonix] 40 mg PO DAILY 30 Days #30 tab 09/18/23 [Rx] Lactulose [Cephulac] 30 gm PO DAILY PRN 09/30/23 [History] Acetaminophen Tab [Tylenol] 650 mg PO Q6HR tab 11/14/23 [Rx] Fluconazole in NaCl,Iso-Osm [Diflucan 400 mg/200 ml IVPB] 400 mg IVPB DAILY 7 Days each 11/14/23 [Rx] Metoprolol Tartrate [Lopressor] 50 mg PO BID #60 tab 11/14/23 [Rx] Piperacillin-Tazobactam [Zosyn] 3.375 gm IVPB Q8HR #7 each 11/14/23 [Rx] Thiamine [Vitamin B-1] 100 mg PO DAILY #20 tablet 11/14/23 [Rx] amLODIPine [Norvasc] 5 mg PO DAILY #30 tab 11/14/23 [Rx] Follow up Appointment(s)/Referral(s): Leta Easton MD [STAFF PHYSICIAN] - 11/25/23 1:30 pm Fransisco White MD [STAFF PHYSICIAN] - 1 Week (Office is closed. Please call Friday to schedule follow up appoitment) [facility] Visiting Nurse, [NON-STAFF] - As Needed (Home care will come out tomorrow) Patient Instructions/Handouts: Bowel Obstruction (DC), Lysis of Abdominal Adhesions (GEN) Activity/Diet/Wound Care/Special Instructions: IV antibiotics and supplies will be delivered by [facility] between 6pm and 8pm tonight (11/14/23) Nurse from [facility] will reach out in the morning (11/15/23) and will see you to ass ist with and teach IV infusion CMB/BMP/CRP weekly No lifting over 10 pounds in 2 weeks until November 27November shower. No bath tub soaks for two weeks until November 27 Diet as tolerated. Use Tylenol, simethicone and ibuprofen or Aleve scheduled for the next 24-48 hours for best pain relief. Use ice along incisions for today to prevent swelling. If experiencing abdominal pain, vomiting or constipation please come to the ER Discharge Disposition: HOME SELF-CARE
--- NOTE | 2023-11-14 15:05 | P.PN ---
Subjective Progress Note Date: 11/14/23 Principal diagnosis: Reason for follow-up is fever/ileus/obstruction Patient is a 43-year-old -British male past medical history significant for right-sided jaw cancer for the patient be treated with chemoradiation therapy, patient also have a history of alcohol abuse possible acute and chronic pancreatitis patient recently did have a prolonged hospital stay for bowel obstruction and this patient who did have a perforated small bowel and status post resection on 09/06/2023 did have prolonged ileus, now presenting back to the hospital abdominal pain and vomiting has been diagnosed with ileus/obstruction.Patient is status post open expiratory laparotomy with lysis o f adhesion excision of small bowel tumor x 3 closure of decompressive enterostomy and drainage of abdominal ascites completed on 10/16/2023. On today's evaluation that is 11/14/2023,the patient denies any fever or any chills, patient is breathing comfortably on room air, the patient denies chest pain shortness of breath and no significant cough, patient did have a bowel movement NG has been discontinued abdominal pain is slightly decreased and has been tolerating his diet. No CBC was done today his creatinine 0.54 blood culture repeat from 11/05/2023 as well as 11/06/2023 has been negative Objective - Vital Signs Vital signs: Vital Signs Temp 98.1 F 11/14/23 04:00 Pulse 98 11/14/23 04:00 Resp 14 11/14/23 04:00 BP 129/75 11/14/23 04:00 Pulse Ox 98 11/14/23 04:00 FiO2 Intake & Output 11/13/23 11/14/23 11/14/23 18:59 06:59 18:59 Intake Total 10 Output Total 300 1575 Balance -290 -1575 Weight 43 kg Intake: IV 10 Invasive Line 9 10 Output: Urine 300 1275 Stool 300 Other: Voiding Method Urinal Urinal # Voids 3 - Exam GENERAL DESCRIPTION: Middle-age male up in the chair in no distress RESPIRATORY SYSTEM: Unlabored breathing , decreased breath sounds at bases HEART: S1 S2 regular rate and rhythm , ABDOMEN: Soft , mild distention and tenderness EXTREMITIES: No edema feet - Labs CBC & Chem 7: 11/13/23 09:58 11/14/23 09:38 Labs: Abnormal Lab Results - Last 24 Hours (Table) 11/13/23 11/13/23 11/13/23 Range/Units 09:58 09:58 11:15 WBC 12.4 H (3.8-10.6) k/uL RBC 3.68 L (4.30-5.90) m/uL Hgb 8.4 L (13.0-17.5) gm/dL Hct 28.2 L (39.0-53.0) % MCV 76.7 L (80.0-100.0) fL MCH 22.9 L (25.0-35.0) pg MCHC 29.8 L (31.0-37.0) g/dL RDW 17.3 H (11.5-15.5) % Plt Count 853 H (150-450) k/uL Sodium 135 L (137-145) mmol/L BUN 22 H (9-20) mg/dL Creatinine 0.53 L (0.66-1.25) mg/dL Glucose 151 H (74-99) mg/dL POC Glucose (mg/dL) 172 H (70-110) mg/dL Calcium 8.1 L (8.4-10.2) mg/dL 11/13/23 11/14/23 Range/Units 16:14 05:57 WBC (3.8-10.6) k/uL RBC (4.30-5.90) m/uL Hgb (13.0-17.5) gm/dL Hct (39.0-53.0) % MCV (80.0-100.0) fL MCH (25.0-35.0) pg MCHC (31.0-37.0) g/dL RDW (11.5-15.5) % Plt Count (150-450) k/uL Sodium (137-145) mmol/L BUN (9-20) mg/dL Creatinine (0.66-1.25) mg/dL Glucose (74-99) mg/dL POC Glucose (mg/dL) 175 H 156 H (70-110) mg/dL Calcium (8.4-10.2) mg/dL Assessment and Plan (1) Leukocytosis Current Visit: Yes Status: Acute Code(s): D72.829 - ELEVATED WHITE BLOOD CELL COUNT, UNSPECIFIED SNOMED Code(s): 032449113 (2) Ileus Current Visit: Yes Status: Acute Code(s): K56.7 - ILEUS, UNSPECIFIED SNOMED Code(s): 775504427 (3) MRSA (methicillin resistant staph aureus) culture positive Current Visit: Yes Status: Acute Code(s): Z22.322 - CARRIER OR SUSPECTED CARRIER OF METHICILLIN RESIS STAPH SNOMED Code(s): 435952617 (4) Candidemia Current Visit: Yes Status: Acute Code(s): B37.7 - CANDIDAL SEPSIS SNOMED Code(s): 113912087 Plan: 14- patient did have a new fever on 11/02/2023 with blood culture positive for Courtney parapsilosis PICC line was discontinued and the catheter positive for yeast as well patient also have a port from which blood culture has been obtained which are so far negative, patient to continue with IV Diflucan for another week to finish his course of therapy 5-patient noticed to have worsening of his white count and evidence of new large bowel obstruction possible abdominal source, patient did have a colonoscopy did not mention any obstructive lesion patient to continue with the Zosyn x 7 days on discharge and close outpatient follow-up prescriptions were provided to the family caseworker Dictation was produced using [employer] software. please excuse any grammatical, word or spelling errors. Time with Patient: Less than 30
[2023-11-14 16:26] VITALS: BP 110/52; PULSE 103; RESP 18
[2023-11-15] MEDS ORDERED: 1: MVI, ADULT NO.4 WITH VIT K 10 ML, TRACE (CONC-1ML/DOSE) 1 ML, SODIUM CHLORIDE 4MEQ/ML IV SCH
--- NOTE | 2023-11-17 19:25 | CDI ---
Documentation Clarification Form Date: 11/17/2023 06:54:12 PM From: Eda Sharif Phone: Admit Date: 10/08/2023 07:13:00 PM Patient Name: Adilson Otero Visit Number: [id number] Discharge Date: 11/14/2023 05:29:00 PM ATTENTION: The Clinical Documentation Specialists (CDI) and [facility] Coding Staff appreciate your assistance in clarifying documentation. Please respond to the clarification below the line at the bottom and electronically sign. The CDI & [facility] Coding staff will review the response and follow-up if needed. Please note: Queries are made part of the Legal Health Record. If you have any questions, please contact the author of this message via ITS. Dr. Leta Easton The final diagnosis of the pathology report states: Organizingthrombus Transverse colon and Jejunal; Transverse mesocolon colon and Jejunal negative formalignancy Coding guidelines do not allow coding professionals to code based on pathology results; therefore, clarification is requested. History/risk factors: 43yo M, RecurrentSBO/perf, Hx mandibularcancer, severe PCM on TPN,ETOH abuse in remission,MRSA infection,Chronicconstipation,Former smoker, candidemia due toPICCline infection, sigmoidvolvulus Clinical Indicators: Organizingthrombuswith adjacentfibrosisand hemosiderin laden histiocytes Treatment: Small Intestine Resection, omentum, segmental Resection Transverse colon, resection - Jejunalmass & tumor Please clarify if you agree with the pathology report diagnoses: [x ] Yes, acute infarction of large intestine & benign neoplasm of Jejunal [ ] No, acute infarction of large intestine & benign neoplasm of Jejunal [ ] Other (please specify) [ ] Unable to determine (Template Last Revised: September 2020) [x ] Yes, acute infarction of large intestine & benign neoplasm of Jejunal MTDD
== END 2023-11-14 17:29 | disposition home or self-care (01) | DRG 230 ==
LOC: EC 13:12 → 5NMEDONC 19:13 → 4SSUR 10-14 20:17 → 3SCARD 10-26 09:55 → 6NMEDSUR 10-29 16:50 → 4SSUR 11-02 12:43 → 3SCARD 11-02 22:18
PROVIDERS: ADMIT Surgery Plastic and Reconstructive Surgery; ATTEND Surgery Plastic and Reconstructive Surgery
PROC: 0D9670Z Drainage of Stomach with Drainage Device, Via Natural or Artificial Opening (ICD-10-PCS; 2023-10-10)
PROC: 02HV33Z Insertion of Infusion Device into Superior Vena Cava, Percutaneous Approach (ICD-10-PCS; 2023-10-14)
PROC: 3E0436Z Introduction of Nutritional Substance into Central Vein, Percutaneous Approach (ICD-10-PCS; 2023-10-14)
PROC: B51N1ZZ Fluoroscopy of Left Upper Extremity Veins using Low Osmolar Contrast (ICD-10-PCS; 2023-10-14)
PROC: 0DNC0ZZ Release Ileocecal Valve, Open Approach (ICD-10-PCS; 2023-10-16)
PROC: 0DN80ZZ Release Small Intestine, Open Approach (ICD-10-PCS; 2023-10-16)
PROC: 0DBU0ZZ Excision of Omentum, Open Approach (ICD-10-PCS; 2023-10-16)
PROC: 0DTL0ZZ Resection of Transverse Colon, Open Approach (ICD-10-PCS; 2023-10-16)
PROC: 0W9G0ZZ Drainage of Peritoneal Cavity, Open Approach (ICD-10-PCS; 2023-10-16)
PROC: 0DTA0ZZ Resection of Jejunum, Open Approach (ICD-10-PCS; principal; 2023-10-16 12:55)
DX: K56.51 Intestinal adhesions [bands], with partial obstruction (principal); K55.049 Acute infarction of large intestine, extent unspecified; K63.1 Perforation of intestine (nontraumatic); E43 Unspecified severe protein-calorie malnutrition; K86.0 Alcohol-induced chronic pancreatitis; L89.312 Pressure ulcer of right buttock, stage 2; L89.322 Pressure ulcer of left buttock, stage 2; L89.152 Pressure ulcer of sacral region, stage 2; Q43.3 Congenital malformations of intestinal fixation; K56.2 Volvulus; K56.7 Ileus, unspecified; B37.89 Other sites of candidiasis; I31.39 Other pericardial effusion (noninflammatory); R78.81 Bacteremia; J18.9 Pneumonia, unspecified organism; R18.8 Other ascites; D62 Acute posthemorrhagic anemia; I47.11 Inappropriate sinus tachycardia, so stated; E87.1 Hypo-osmolality and hyponatremia; D63.8 Anemia in other chronic diseases classified elsewhere; D50.8 Other iron deficiency anemias; F10.11 Alcohol abuse, in remission; T80.218A Other infection due to central venous catheter, initial encounter; Z53.29 Procedure and treatment not carried out because of patient's decision for other reasons; E86.0 Dehydration; K63.89 Other specified diseases of intestine; B95.62 Methicillin resistant Staphylococcus aureus infection as the cause of diseases classified elsewhere; D13.39 Benign neoplasm of other parts of small intestine; D75.839 Thrombocytosis, unspecified; E83.42 Hypomagnesemia; E87.6 Hypokalemia; K64.0 First degree hemorrhoids; R15.9 Full incontinence of feces; K21.00 Gastro-esophageal reflux disease with esophagitis, without bleeding; B95.2 Enterococcus as the cause of diseases classified elsewhere; Y71.1 Therapeutic (nonsurgical) and rehabilitative cardiovascular devices associated with adverse incidents; Z68.1 Body mass index [BMI] 19.9 or less, adult; Z86.711 Personal history of pulmonary embolism; Z85.830 Personal history of malignant neoplasm of bone; Z92.3 Personal history of irradiation; Z92.21 Personal history of antineoplastic chemotherapy; Z87.891 Personal history of nicotine dependence; Z87.19 Personal history of other diseases of the digestive system; Z79.899 Other long term (current) drug therapy
CPT/HCPCS: 36415; 36573; 45378; 45381; 71045; 74018; 74019; 74021; 74176; 74177; 74250; 80048; 80053; 80202; 81003; 82330; 82565; 82728; 83036; 83540; 83550; 83605; 83690; 83735; 84100; 84145; 84425; 84478; 85025; 85027; 86140; 86850; 86880; 86900; 86901; 86920; 87040; 87070; 87077; 87186; 87205; 87390; 88305; 88307; 93306; 93970; 94760; 96365; 96375; 96376; 99285

== ENCOUNTER 2024-01-07 12:51 | Inpatient (IN) | payer OTHER ==
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
--- NOTE | 2024-01-07 13:38 | XR ---
EXAMINATION TYPE: XR KUB DATE OF EXAM: 01/07/2024 COMPARISON: 11/13/2023 HISTORY: Pain TECHNIQUE: One view abdominal series FINDINGS: The osseous structures are intact. The bowel gas pattern is nonspecific. A portacatheter seen. There are dilated bowel loops with air-fluid levels. Minimal air is seen distally. Diffuse osteopenia and degenerative change of the spine. Punctate calcifications in the pelvis likely vascular. Calcificatio ns the abdomen could be related to chronic pancreatitis. IMPRESSION: 1. Nonspecific abdomen. Dilated bowel loops with air-fluid levels partial obstruction versus severe ileus.
[2024-01-07 15:40] LABS: ALT 55 U/L (4-49); AST 35 U/L (17-59); African American GFR (CKD) >90 (>60 ml/min/1.73 sqM); Albumin 3.1 g/dL (3.5-5.0); Alkaline Phosphatase 220 U/L (38-126); Amylase 69 U/L (30-110); Anion Gap 8 mmol/L; Blood Urea Nitrogen 15 mg/dL (9-20); Calcium 8.1 mg/dL (8.4-10.2); Carbon Dioxide 33 mmol/L (22-30); Chloride 92 mmol/L (98-107); Glucose 119 mg/dL (74-99); INR 1.3 (<1.2); Lipase 43 U/L (23-300); Non-African American GFR(CKD) >90 (>60 ml/min/1.73 sqM); Partial Thromboplastin Time 23.1 sec (22.0-30.0); Prothrombin Time 13.3 sec (10.0-12.5); Sodium 133 mmol/L (137-145); Total Bilirubin 0.5 mg/dL (0.2-1.3); Total Protein 5.9 g/dL (6.3-8.2)
[2024-01-07 15:58] LABS: Potassium 2.7 mmol/L (3.5-5.1)
[2024-01-07] MEDS: SODIUM CHLORIDE 0.9% 1,000 ML IV STA ×2 (16:09→17:41)
[2024-01-07] MEDS: HYDROmorphone 1 MG/ML 1 ML SYRINGE IVP STA (16:09)
[2024-01-07] MEDS: ONDANSETRON 4 MG/2 ML VIAL IVP STA (16:11)
[2024-01-07] MEDS: PANTOPRAZOLE 40 MG/10 ML VIAL IVP STA (16:12)
[2024-01-07 16:41] LABS: Anisocytosis Slight; Basophils % (A) 0 %; Eosinophils % (A) 0 %; HCT 39.8 % (39.0-53.0); Lymphocytes % (A) 8 %; MCH 22.9 pg (25.0-35.0); MCHC 31.4 g/dL (31.0-37.0); MCV 72.8 fL (80.0-100.0); Mean Platelet Volume 7.7; Microcytosis Moderate; Monocytes % (A) 4 %; Neutrophils % (A) 87 %; Platelet Count 471 k/uL (150-450); RBC 5.47 m/uL (4.30-5.90); WBC 9.2 k/uL (3.8-10.6)
[2024-01-07 16:42] LABS: Lymphocytes # (A) 0.7 k/uL (1.0-4.8); Monocytes # (A) 0.4 k/uL (0-1.0)
[2024-01-07 16:43] LABS: HGB 12.5 gm/dL (13.0-17.5)
--- NOTE | 2024-01-07 17:22 | CT ---
EXAMINATION TYPE: CT abdomen pelvis w con DATE OF EXAM: 01/07/2024 COMPARISON: Prior CT November 06, 2023 HISTORY: abdominal pain/ bloating. recent abdominal sx CT DLP: 460.4 mGycm, Automated Exposure Control for Dose Reduction was Utilized. CONTRAST: CT scan of the abdomen and pelvis is performed with oral and with IV Contrast, patient injected with 80ml mL of Isovue 300. FINDINGS: LUNG BASES: No significant abnormality is appreciated. LIVER/GB: Liver is diffusely low dense consistent with diffuse fatty infiltrative hepatocellular dise ase is redemonstrated. PANCREAS: Calcifications and ductal dilatation the pancreas consistent with product of chronic pancre atitis is redemonstrated. SPLEEN: No significant abnormality is seen. ADRENALS: No significant abnormality is seen. KIDNEYS: Symmetric cortical medullary uptake and excretion without hydronephrosis seen bilaterally. BOWEL: Fluid filled prominent and distended small and large bowel loops throughout the abdomen and pe lvis similar to prior CT. Areas of nondependent air noted on current study raises concern for possibl e pneumatosis. There is collapsed distal colon. PROSTATE/SEMINAL VESICLES: No gross abnormality seen. LYMPH NODES: No greater than 1cm abdominal or pelvic lymph nodes are appreciated. OSSEOUS STRUCTURES: No significant abnormality is seen. OTHER: No significant additional abnormality is seen. IMPRESSION: Persistent dilated fluid-filled distal small bowel and at least proximal colonic loops. C olonic obstruction is suspected. Cannot exclude ischemia or pneumatosis particularly the right colon. Advise lactic acid correlation. Advise urgent surgical evaluation.
[2024-01-07] MEDS ORDERED: NALOXONE 0.4 MG/ML 1 ML VIAL IV PRN (18:25)
[2024-01-07] MEDS: MORPHINE SULFATE 4 MG/ML SYRINGE IV STA (19:16)
[2024-01-07] MEDS: POTASSIUM CHLORIDE 20 MEQ in WATER FOR INJECTION 1 100ML.BAG IVPB STA (19:20)
[2024-01-07] MEDS: SODIUM CHLORIDE 0.9% 1,000 ML IV SCH (19:20)
[2024-01-07 19:48] LABS: Magnesium 1.5 mg/dL (1.6-2.3); Phosphorus 3.8 mg/dL (2.5-4.5)
[2024-01-07] MEDS: HYDROmorphone 1 MG/ML 1 ML SYRINGE IVP PRN (23:59)
[2024-01-08 00:21] LABS: Appearance,Urine Clear (Clear); Bacteria,Urine Rare /hpf; Bilirubin,Urine Negative (Negative); Blood,Urine Large (Negative); Budding Yeast,Urine Rare /hpf; Color,Urine Yellow; Glucose,Urine (UA) Negative (Negative); Hyaline Casts,Urine 1 /lpf (0-2); Ketones,Urine Trace (Negative); Leukocyte Esterase,Urine Negative (Negative); Mucus,Urine Rare /hpf; Nitrite,Urine Negative (Negative); PH, Urine 6.5 (5.0-8.0); Protein,Urine 1+ (Negative); RBC,Urine >182 /hpf (0-5); Squamous Epithelial Cell,Urine <1 /hpf (0-4); Urobilinogen,Urine <2.0 mg/dL (<2.0); WBC,Urine 2 /hpf (0-5)
[2024-01-08 00:32] LABS: Specific Gravity,Urine >1.050 (1.001-1.035)
[2024-01-08] MEDS: POTASSIUM CHLORIDE 10 MEQ in WATER FOR INJECTION 1 100ML.BAG IVPB SCH (01:12)
[2024-01-08 08:40] LABS: HCT 33.6 % (39.6-50.0); HGB 10.7 g/dL (13.0-17.0); MCH 22.6 pg (27.0-32.0); MCHC 31.8 g/dL (32.0-37.0); MCV 70.9 FL (80.0-97.0); Mean Platelet Volume 8.9 FL (9.5-12.2); NRBC Per 100 WBC 0 X 10*3/uL (0.00-0.01); Platelet Count 413 X 10*3/uL (140-440); RBC 4.74 X 10*6/uL (4.40-5.60); RDW 17.1 % (11.5-14.5)
[2024-01-08 08:41] LABS: Basophils # (A) 0.03 X 10*3/uL (0.00-0.10); Basophils % (A) 0.4 %; Eosinophils # (A) 0.04 X 10*3/uL (0.04-0.35); Eosinophils % (A) 0.6 %; Lymphocytes # (A) 0.79 X 10*3/uL (0.90-5.00); Lymphocytes % (A) 11.6 %; Monocytes # (A) 0.44 X 10*3/uL (0.20-1.00); Monocytes % (A) 6.5 %; Neutrophils # (A) 5.48 X 10*3/uL (1.80-7.70); Neutrophils % (A) 80.6 %
[2024-01-08 09:06] LABS: ALT 43 U/L (10-49); AST 26 U/L (14-35); Albumin 2.9 g/dL (3.8-4.9); Albumin/Globulin Ratio 1.32 Ratio (1.60-3.17); Alkaline Phosphatase 181 U/L (41-126); Blood Urea Nitrogen 13.5 mg/dL (9.0-27.0); Calcium 7.6 mg/dL (8.7-10.3); Carbon Dioxide 29.3 mmol/L (21.6-31.8); Chloride 95 mmol/L (96-109); Globulin 2.2 g/dL (1.6-3.3); Glucose 88 mg/dL (70-110); Magnesium 1.3 mg/dL (1.5-2.4); Phosphorus 3.2 mg/dL (2.4-5.1); Potassium 4.1 mmol/L (3.5-5.5); Sodium 135 mmol/L (135-145); Total Bilirubin 0.3 mg/dL (0.3-1.2); Total Protein 5.1 g/dL (6.2-8.2)
[2024-01-08] MEDS ORDERED: Magnesium Replacement Protocol 1 EACH MISC MISCELLANE PRN (09:15)
[2024-01-08] MEDS: MAGNESIUM SULFATE-D5W PMX 1 GM in DEXTROSE/WATER 1 100ML.BAG IVPB SCH (09:31)
[2024-01-08] MEDS: PANTOPRAZOLE 40 MG/10 ML VIAL IV SCH (09:31)
[2024-01-08] MEDS: MAGNESIUM SULFATE-D5W PMX 1 GM in DEXTROSE/WATER 1 100ML.BAG IVPB ONE (11:09)
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
--- NOTE | 2024-01-08 14:55 | P.PN ---
Subjective Progress Note Date: 01/08/24 CHIEF COMPLAINT: Abdominal pain HISTORY OF PRESENT ILLNESS: The patient is a 43-year-old male with chronic abdominal pain. Has personal history of perforated small bowel 4 months ago August 2023. Additionally patient has history of bowel obstruction with subsequent exploratory laparotomy. Incidentally, patient has known redundant sigmoid colon for risk of sigmoid volvulus. Patient reports 2 days ago developing acute onset abdominal pain different from prior characteristic of abdominal pain which of the upper abdomen. He reports minimal flatus. His last bowel movement was this morning green and liquid. Per discussion with nursing, patient was crying from the extensive nature of his abdominal pain. He also reports making himself vomit to help his abdominal pain. He reports Dilaudid is ineffective for his abdominal pain. ROS: No fevers or chills. No new chest pain. No productive sputum PHYSICAL EXAM: VITAL SIGNS: Reviewed CONSTITUTIONAL: Cachectic male moderate distress due to abdominal pain EYES: Conjuctivae without sclera icterus. Extraocular movements grossly intact. HEAD, EARS, NOSE, THROAT: Moist buccal mucosa. Head is atraumatic, normocephalic. Hears conversational speech. No nasal drainage. RESPIRATORY: Non-labored respirations and equal bilateral excursions. Mediport of the right upper chest wall. CARDIOVASCULAR: Palpable 2+ radial pulses. ABDOMEN: Abdomen mildly distended however tender upper abdomen. Well-healed midline incision. MUSCULOSKELETAL: No gross deformity of the lower extremities noted. No clubbing. No cyanosis. SKIN: Good skin turgor. Well perfused. NEUROLOGIC: Cranial nerves II through XII grossly intact. No focal or lateraliz ing signs. PSYCH: Appropriate affect. Alert and oriented to person, place and time. CLINICAL LABS: Reviewed. Potassium low 2.7 now corrected 4.1 for hypokalemia. Magnesium low 1.3, being corrected, hypomagnesia ASSESSMENT: 1. Abdominal pain upper abdomen, acute on chronic 2. History of bowel obstruction 3. History of sigmoid volvulus 4. Underweight, BMI 14.5 PLAN: 1. With his presentation and known history of volvulus, patient reports his pain is tearing pulling sensation. Barium enema was initially ordered however unable to obtain today. 2. Pain medication being optimized with addition of Toradol however exploratory laparotomy with colectomy and possible ostomy was described. 3. In the interim, correction of electrolyte abnormalities including potassium and magnesium in process. 4. Care plan discussed with patient regarding additional diagnostic studies versus surgery. 5. Patient is at risk for complications due to malnutrition, BMI 14.5 Objective - Vital Signs Vital signs: Vital Signs Temp 98.3 F 01/08/24 13:20 Pulse 83 01/08/24 13:20 Resp 17 01/08/24 13:20 BP 134/89 01/08/24 13:20 Pulse Ox 93 L 01/08/24 13:20 FiO2 Intake & Output 01/07/24 01/08/24 01/08/24 18:59 06:59 18:59 Output Total 200 Balance -200 Weight 40.823 kg 40.823 kg 40.823 kg Output: Urine 200 - Labs CBC & Chem 7: 01/08/24 05:48 01/08/24 05:48 Labs: Abnormal Lab Results - Last 24 Hours (Table) 01/07/24 01/07/24 01/07/24 Range/Units 15:19 15:19 16:14 Hgb 12.5 L D (13.0-17.5) gm/dL Hct (39.6-50.0) % MCV 72.8 L (80.0-100.0) fL MCH 22.9 L (25.0-35.0) pg MCHC (32.0-37.0) g/dL RDW 17.0 H (11.5-15.5) % Plt Count 471 H (150-450) k/uL MPV (9.5-12.2) FL Neutrophils # 8.0 H (1.3-7.7) k/uL Lymphocytes # 0.7 L (1.0-4.8) k/uL PT 13.3 H (10.0-12.5) sec INR 1.3 H (<1.2) Sodium 133 L (137-145) mmol/L Potassium 2.7 L* (3.5-5.1) mmol/L Chloride 92 L (98-107) mmol/L Carbon Dioxide 33 H (22-30) mmol/L Creatinine 0.53 L (0.66-1.25) mg/dL BUN/Creatinine Ratio (12.00-20.00) Ratio Glucose 119 H (74-99) mg/dL Calcium 8.1 L (8.4-10.2) mg/dL Magnesium 1.5 L (1.6-2.3) mg/dL ALT 55 H (4-49) U/L Alkaline Phosphatase 220 H (38-126) U/L Total Protein 5.9 L (6.3-8.2) g/dL Albumin 3.1 L (3.5-5.0) g/dL Albumin/Globulin Ratio (1.60-3.17) Ratio Ur Specific [place] (1.001-1.035) Urine Protein (Negative) Urine Ketones (Negative) Urine Blood (Negative) Urine RBC (0-5) /hpf Urine Bacteria (None) /hpf Urine Mucus (None) /hpf Urine Yeast (Budding) (None) /hpf 01/07/24 01/08/24 01/08/24 Range/Units 23:44 05:48 05:48 Hgb 10.7 L (13.0-17.5) gm/dL Hct 33.6 L (39.6-50.0) % MCV 70.9 L (80.0-100.0) fL MCH 22.6 L (25.0-35.0) pg MCHC 31.8 L (32.0-37.0) g/dL RDW 17.1 H (11.5-15.5) % Plt Count (150-450) k/uL MPV 8.9 L (9.5-12.2) FL Neutrophils # (1.3-7.7) k/uL Lymphocytes # 0.79 L (1.0-4.8) k/uL PT (10.0-12.5) sec INR (<1.2) Sodium (137-145) mmol/L Potassium (3.5-5.1) mmol/L Chloride 95 L (98-107) mmol/L Carbon Dioxide (22-30) mmol/L Creatinine (0.66-1.25) mg/dL BUN/Creatinine Ratio 22.50 H (12.00-20.00) Ratio Glucose (74-99) mg/dL Calcium 7.6 L (8.4-10.2) mg/dL Magnesium 1.3 L (1.6-2.3) mg/dL ALT (4-49) U/L Alkaline Phosphatase 181 H (38-126) U/L Total Protein 5.1 L (6.3-8.2) g/dL Albumin 2.9 L (3.5-5.0) g/dL Albumin/Globulin Ratio 1.32 L (1.60-3.17) Ratio Ur Specific [place] >1.050 H (1.001-1.035) Urine Protein 1+ H (Negative) Urine Ketones Trace H (Negative) Urine Blood Large H (Negative) Urine RBC >182 H (0-5) /hpf Urine Bacteria Rare H (None) /hpf Urine Mucus Rare H (None) /hpf Urine Yeast (Budding) Rare H (None) /hpf
--- NOTE | 2024-01-08 15:42 | XR ---
EXAMINATION TYPE: XR chest 1V DATE OF EXAM: 01/08/2024 COMPARISON: 11/10/2023 HISTORY: Shortness of breath TECHNIQUE: Single frontal view of the chest is obtained. FINDINGS: There is no pleural effusion or pneumothorax. The cardiac silhouette size is within sweta l limits. The osseous structures are intact. Mediport catheter seen with diffuse osteopenia. AC sally nt arthropathy. Density overlying this scapula could be related to bone island or superficial to the patient. There is patchy infiltrate or atelectasis left lung base. Limited inspiration with prominent bowel loops in the upper abdomen. IMPRESSION: 1. Patchy retrocardiac and left lower lobe atelectasis favored over pneumonia correlate clinically. 2. Prominent bowel loops in the upper abdomen correlate clinically. 3. COPD. 4. Somewhat nodular-appearing density at the right lung apex. Possible related to superimposed struct ures. Pulmonary nodule not excluded. Recommend an apical or lordotic view of the chest and a short-te rm basis.
[2024-01-08] MEDS: KETOROLAC 15 MG/ML 1 ML VIAL IVP PRN (16:16)
[2024-01-08] MEDS ORDERED: KETOROLAC 15 MG/ML 1 ML VIAL IVP SCH (18:00)
[2024-01-08] MEDS: METOPROLOL TARTRATE 50 MG TAB PO SCH (21:33)
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
[2024-01-09] MEDS: KETOROLAC 15 MG/ML 1 ML VIAL IVP SCH (06:10)
--- NOTE | 2024-01-09 08:12 | P.PN ---
Subjective Progress Note Date: 01/09/24 CHIEF COMPLAINT: Abdominal pain HISTORY OF PRESENT ILLNESS: The patient is a 43-year-old male with chronic abdominal pain. He reports minimal passage of flatus. Chest x-ray was obtained yesterday. No bowel movements. Patient is choosing to avoid to eat. He wants to avoid open procedures. ROS: No fevers or chills. No new chest pain. No productive sputum PHYSICAL EXAM: VITAL SIGNS: Reviewed CONSTITUTIONAL: Cachectic male moderate distress due to abdominal pain EYES: Conjuctivae without sclera icterus. Extraocular movements grossly intact. HEAD, EARS, NOSE, THROAT: Moist buccal mucosa. Head is atraumatic, normocephalic. Hears conversational speech. No nasal drainage. RESPIRATORY: Non-labored respirations and equal bilateral excursions. Mediport of the right upper chest wall. CARDIOVASCULAR: Palpable 2+ radial pulses. ABDOMEN: Abdomen distended with diffuse peritonitis MUSCULOSKELETAL: No gross deformity of the lower extremities noted. No clubbing. No cyanosis. SKIN: Good skin turgor. Well perfused. NEUROLOGIC: Cranial nerves II through XII grossly intact. No focal or lateralizing signs. PSYCH: Appropriate affect. Alert and oriented to person, place and time. CLINICAL LABS: Reviewed. Labs pending this morning. ASSESSMENT: 1. Abdominal pain upper abdomen, acute on chronic 2. History of bowel obstruction 3. History of sigmoid volvulus 4. Underweight, BMI 14.5 PLAN: 1. Alternatives for laparotomy includes decompression of sigmoid volvulus with placement of rectal tube. 2. Surgical options such as open colectomy ostomy was described however patient was deferred at this time 3. Pain management adjusted to Toradol including Dilaudid. Objective - Vital Signs Vital signs: Vital Signs Temp 98.3 F 01/09/24 01:48 Pulse 69 01/09/24 01:48 Resp 15 01/09/24 01:48 BP 138/85 01/09/24 01:48 Pulse Ox 96 01/09/24 01:48 FiO2 Intake & Output 01/08/24 01/09/24 01/09/24 18:59 06:59 18:59 Intake Total 1300 900 Output Total 300 Balance 1300 600 Weight 40.823 kg Intake: Intake, IV Titration 1300 900 Amount Magnesium Sulfate-D5w Pmx 400 1 gm In Dextrose/Water 1 100ml.bag @ 100 mls/hr IVPB Q1H [facility] Rx#: [id number] Sodium Chloride 0.9% 1, 900 900 000 ml @ 75 mls/hr IV . [id number] [facility] Rx#:[id number] Output: Urine 300 Other: Voiding Method Urinal - Labs CBC & Chem 7: 01/08/24 05:48 01/08/24 05:48 Labs: Abnormal Lab Results - Last 24 Hours (Table) 01/08/24 01/08/24 Range/Units 05:48 05:48 Hgb 10.7 L (13.0-17.0) g/dL Hct 33.6 L (39.6-50.0) % MCV 70.9 L (80.0-97.0) FL MCH 22.6 L (27.0-32.0) pg MCHC 31.8 L (32.0-37.0) g/dL RDW 17.1 H (11.5-14.5) % MPV 8.9 L (9.5-12.2) FL Lymphocytes # 0.79 L (0.90-5.00) X 10*3/uL Chloride 95 L (96-109) mmol/L BUN/Creatinine Ratio 22.50 H (12.00-20.00) Ratio Calcium 7.6 L (8.7-10.3) mg/dL Magnesium 1.3 L (1.5-2.4) mg/dL Alkaline Phosphatase 181 H (41-126) U/L Total Protein 5.1 L (6.2-8.2) g/dL Albumin 2.9 L (3.8-4.9) g/dL Albumin/Globulin Ratio 1.32 L (1.60-3.17) Ratio
[2024-01-09] MEDS: HEPARIN SODIUM,PORCINE 5,000 UNIT/ML 1 ML VIAL SQ SCH (09:38)
[2024-01-09] MEDS: THIAMINE 100 MG TAB PO SCH (09:38)
[2024-01-09 10:32] LABS: Magnesium 1.9 mg/dL (1.5-2.4)
[2024-01-09 10:33] LABS: MCH 22.3 pg (27.0-32.0); MCHC 30.3 g/dL (32.0-37.0); MCV 73.5 FL (80.0-97.0); Mean Platelet Volume 9.1 FL (9.5-12.2); NRBC Per 100 WBC 0 X 10*3/uL (0.00-0.01); Platelet Count 381 X 10*3/uL (140-440); RBC 4.49 X 10*6/uL (4.40-5.60); WBC 8.69 X 10*3/uL (4.50-10.00)
[2024-01-09 11:14] LABS: Blood Urea Nitrogen 17.1 mg/dL (9.0-27.0); Calcium 7.7 mg/dL (8.7-10.3); Carbon Dioxide 21.9 mmol/L (21.6-31.8); Chloride 98 mmol/L (96-109); Glucose 43 mg/dL (70-110); Potassium 3.9 mmol/L (3.5-5.5); Sodium 136 mmol/L (135-145)
[2024-01-09 11:30] LABS: Glucose,Whole Blood 48 mg/dL (70-110)
[2024-01-09] MEDS: DEXTROSE 50% SYRINGE 50 ML IVP ONE (11:42)
[2024-01-09 11:49] LABS: Acanthocytes 2+; Anisocytosis (M) 2+; Basophils # (A) 0.02 X 10*3/uL (0.00-0.10); Basophils % (A) 0.2 %; Elliptocytes 2+; Eosinophils # (A) 0.02 X 10*3/uL (0.04-0.35); Eosinophils % (A) 0.2 %; Lymphocytes # (A) 0.56 X 10*3/uL (0.90-5.00); Lymphocytes % (A) 6.4 %; Microcytosis (M) 2+; Monocytes # (A) 0.47 X 10*3/uL (0.20-1.00); Monocytes % (A) 5.4 %; Neutrophils # (A) 7.56 X 10*3/uL (1.80-7.70); Neutrophils % (A) 87.1 %
[2024-01-09 12:08] LABS: Glucose,Whole Blood 180 mg/dL (70-110)
[2024-01-09 12:30] LABS: Glucose,Whole Blood 175 mg/dL (70-110)
[2024-01-09] MEDS ORDERED: PROPOFOL 10 MG/ML 20 ML VIAL IV ONE (12:45)
[2024-01-09] MEDS ORDERED: PHENYLEPHRINE 10 MG/ML VIAL ONE (12:45)
[2024-01-09] MEDS: IV FLUID CONTINUATION 1,000 ML IV ONE (13:07)
--- NOTE | 2024-01-09 13:32 | P.PCN ---
Date of Procedure: 01/09/24 Description of Procedure: PREOPERATIVE DIAGNOSIS: Sigmoid volvulus POSTOPERATIVE DIAGNOSIS: Sigmoid volvulus OPERATION: Colonoscopy for decompression sigmoid volvulus Colonoscopy lavage 1 L water SURGEON: Leta Easton MD. ANESTHESIA: MAC. INDICATIONS: The patient is a 43-year-old male who presents with acute on chronic abdominal pain and known history of sigmoid volvulus. Alternatives of exploratory laparotomy were described for which patient elected for colonoscopy. Benefits and risks were described and informed consent was obtained. DESCRIPTION OF PROCEDURE: The patient had unprepped bowel. The patient had been brought into the operating room and laid in the left lateral decubitus position. After adequate intravenous sedation, the rectum was examined with 2% lidocaine jelly. No external hemorrhoids were encountered. The rectal tone was within normal limits. No lesions were palpated in the rectal vault. An Olympus colonoscope was advanced throughout highly redundant sigmoid colon. Multiple abdominal wall pressure was used to advance the scope to the transverse colon with moderate decompression of air. No pinwheel was identified. The colonic mucosa was viable. Moderate thick very adherent stool along the mucosal wall, martin was irrigated with over 1 L water. No scattered diverticulosis was encountered. The colon was desufflated with moderate improvement of abdominal distention. At this time, no rectal tube were available at the facility. The colon was desufflated. The patient had tolerated the procedure well. Withdrawal time was over 6 minutes. FINDINGS: Aronchick preparation quality scale 5 (1-5) Sigmoid volvulus decompression with viable mucosa RECOMMENDATIONS: Clear liquid diet Possible surgical resection for recurrence
[2024-01-09 13:42] LABS: Glucose,Whole Blood 195 mg/dL (70-110)
[2024-01-09] MEDS: MAGNESIUM SULFATE-D5W PMX 1 GM in DEXTROSE/WATER 1 100ML.BAG IVPB SCH (15:41)
[2024-01-09 18:18] LABS: Glucose,Whole Blood 119 mg/dL (70-110)
[2024-01-09] MEDS: SIMETHICONE 40 MG/0.6 ML DROPS 2,000 MG/30 ML BOTTLE PO SCH (20:11)
[2024-01-09] MEDS: DEXTROSE 5%-0.9% NACL 1,000 ML IV SCH (20:58)
--- NOTE | 2024-01-10 07:03 | P.PN ---
Progress Note - Text Progress Note Date: 01/10/24 CHIEF COMPLAINT: Abdominal pain HISTORY OF PRESENT ILLNESS: NAEO. Abdominal Pain improved PHYSICAL EXAM: VITAL SIGNS: Reviewed CONSTITUTIONAL: Cachectic male moderate distress due to abdominal pain EYES: Conjuctivae without sclera icterus. Extraocular movements grossly intact. HEAD, EARS, NOSE, THROAT: Moist buccal mucosa. Head is atraumatic, normocephalic. Hears conversational speech. No nasal drainage. RESPIRATORY: Non-labored respirations and equal bilateral excursions. Mediport of the right upper chest wall. CARDIOVASCULAR: Palpable 2+ radial pulses. ABDOMEN: Abdomen mildly distended however tender upper abdomen. Well-healed midline incision. MUSCULOSKELETAL: No gross deformity of the lower extremities noted. No clubbing. No cyanosis. SKIN: Good skin turgor. Well perfused. NEUROLOGIC: Cranial nerves II through XII grossly intact. No focal or lateralizing signs. PSYCH: Appropriate affect. Alert and oriented to person, place and time. ASSESSMENT: 1. Sigmoid volvulus s/p colonic decompression 2. History of bowel obstruction 3. History of sigmoid volvulus 4. Underweight, BMI 14.5 PLAN: 1. Clear Liquid Diet 2. River and Nausea Control 3. Possible surgical resection and timing per Dr Easton
--- NOTE | 2024-01-10 07:27 | P.PN ---
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 Patient also has a history of alcohol abuse and is a former smoker. Patient was recently admitted to the hospital from October 07 through November 13 secondary to an ileus and small bowel obstruction. Patient underwent laparotomy with lysis of adhesions for over 2 hours and excision of small bowel tumor x 3 closure of decompressive enterostomy partial omentectomy drainage of abdominal ascites 2 L underwent the surgery on October 16, 2023. Patient had an extensive hospital stay on to have Enterococcus and MRSA in the abdominal wound from the Homero-Dalton drain. He was discharged with IV antibiotics. Patient returns to the hospital secondary to 2-day complaints of abdominal pain and KUB x-ray initially showed dilated bowel loops with air fluid levels partial obstruction versus severe ileus. Follow up abdominal pelvis CT was done revealing persistent dilated fluid-filled distal small bowel and at least proximal colonic loops. Colonic obstruction is suspected cannot exclude ischemia or pneumatosis particularly the right colon. Advise lactic acid correlation advised urgent surgical evaluation. Patient's white blood cell count is normal at 9.2, hemoglobin 12.5, sodium 133, potassium 2.7, BUN 15, creatinine 0.53, magnesium 1.5, alk phos 220. Urinalysis is showing 1+ protein, greater than 182 RBCs, rare bacteria. He was admitted to the hospital for general surgery consultation patient is on IV fluids and receiving IV pain medication. N.p.o. at this time. 01/09/2024 Patient is evaluated today in follow up he is sitting up in the mario continues to report significant abdominal discomfort. Patient is on combination of IV dilaudid and IV toradol. He will be undergoing colonscopy for decompression sigmoid volvulus. Electrolytes have improved potassium 3.9, magnesium 1.9. Review of Systems Constitutional: Denied any fatigue denied any fever. Cardio vascular: denied any chest pain, palpitations Gastrointestinal: denied any nausea, vomiting or diarrhea. Having abdominal pain Pulmonary: Denied any shortness of breath cough Neurologic denied any new focal deficits All inpatient medications were reviewed and appropriate changes in these medications as dictated in the interval history and assessment and plan. PHYSICAL EXAMINATION: GENERAL: The patient is alert and oriented x3, not in any acute distress. Well developed, well nourished. HEENT: Pupils are round and equally reacting to light. EOMI. No scleral icterus. No conjunctival pallor. Normocephalic, atraumatic. No pharyngeal erythema. No thyromegaly. CARDIOVASCULAR: S1 and S2 present. No murmurs, rubs, or gallops. PULMONARY: Chest is clear to auscultation, no wheezing or crackles. ABDOMEN: Soft, tender diffuse, nondistended, normoactive bowel sounds. No palpa ble organomegaly. MUSCULOSKELETAL: No joint swelling or deformity. EXTREMITIES: No cyanosis, clubbing, or pedal edema. NEUROLOGICAL: Gross neurological examination did not reveal any focal deficits. SKIN: No rashes. Assessment and Plan Abdominal pain secondary to severe ileus vs. bowel obstruction Hx of bowel cancer with prior resection and lysis of adhesions and prolonged hospital stay Hypokalemia due to poor oral intake supplemented with IV potassium and improved levels Hyponatremia hypovolemic Hypomagnesemia Abnormal UA due to dehydration Hx of jaw cancer with chemoradiation and trach/peg in the past Hx of pulmonary embolism Severe protein malnutrition Iron deficiency anemia hx Hx of SVT Hx of ETOH Hx of nicotine use GI prophylaxis DVT prophylaxis Full Code Plan General surgery consultation NPO diet Continue IV fluids to D5 patient has been NPO and had episode of hypoglycemia. Continue pain management with IV dilaudid and IV toradol Continue metoprolol Recommending to hold of on norvasc at this time Repeat blood work, monitor renal function/electrolytes The impression and plan of care has been dictated by Minda Tejada, Nurse Practitioner as directed. Dr. Carin MD I have performed a history and physical examination and medical decision making of this patient, discussed the same with the dictator, and agree with the dictators assessment and plan as written, documented as a scribe. Based on total visit time, I have performed more than 50% of this visit. Objective - Vital Signs Vital signs: Vital Signs Temp 98.1 F 01/09/24 07:22 Pulse 66 01/09/24 07:22 Resp 18 01/09/24 07:22 BP 130/80 01/09/24 07:22 Pulse Ox 96 01/09/24 07:22 FiO2 Intake & Output 01/08/24 01/09/24 01/09/24 18:59 06:59 18:59 Intake Total 1300 900 300 Output Total 300 Balance 1300 600 300 Weight 40.823 kg Intake: IV 300 Intake, IV Titration 1300 900 Amount Magnesium Sulfate-D5w Pmx 400 1 gm In Dextrose/Water 1 100ml.bag @ 100 mls/hr IVPB Q1H [facility] Rx#: [id number] Sodium Chloride 0.9% 1, 900 900 000 ml @ 75 mls/hr IV . [id number] [facility] Rx#:[id number] Output: Urine 300 Other: Voiding Method Urinal - Labs CBC & Chem 7: 01/09/24 07:29 01/09/24 07:29 Labs: Abnormal Lab Results - Last 24 Hours (Table) 01/09/24 01/09/24 01/09/24 Range/Units 07:29 07:29 11:20 Hgb 10.0 L (13.0-17.0) g/dL Hct 33.0 L (39.6-50.0) % MCV 73.5 L (80.0-97.0) FL MCH 22.3 L (27.0-32.0) pg MCHC 30.3 L (32.0-37.0) g/dL RDW 17.0 H (11.5-14.5) % MPV 9.1 L (9.5-12.2) FL Immature Gran # 0.06 H (0.00-0.04) X 10*3/uL Lymphocytes # 0.56 L (0.90-5.00) X 10*3/uL Eosinophils # 0.02 L (0.04-0.35) X 10*3/uL Anisocytosis (manual) 2+ A Microcytosis (manual) 2+ A Elliptocytes 2+ A Acanthocytes (Spur) 2+ A Anion Gap 16.10 H (4.00-12.00) mmol/L BUN/Creatinine Ratio 28.50 H (12.00-20.00) Ratio Glucose 43 A* (70-110) mg/dL POC Glucose (mg/dL) 48 L* (70-110) mg/dL Calcium 7.7 L (8.7-10.3) mg/dL 01/09/24 01/09/24 01/09/24 Range/Units 12:04 12:28 13:40 Hgb (13.0-17.0) g/dL Hct (39.6-50.0) % MCV (80.0-97.0) FL MCH (27.0-32.0) pg MCHC (32.0-37.0) g/dL RDW (11.5-14.5) % MPV (9.5-12.2) FL Immature Gran # (0.00-0.04) X 10*3/uL Lymphocytes # (0.90-5.00) X 10*3/uL Eosinophils # (0.04-0.35) X 10*3/uL Anisocytosis (manual) Microcytosis (manual) Elliptocytes Acanthocytes (Spur) Anion Gap (4.00-12.00) mmol/L BUN/Creatinine Ratio (12.00-20.00) Ratio Glucose (70-110) mg/dL POC Glucose (mg/dL) 180 H 175 H 195 H (70-110) mg/dL Calcium (8.7-10.3) mg/dL Assessment and Plan Time with Patient: Less than 30
[2024-01-10 08:23] LABS: Anisocytosis Slight; Basophils % (A) 0 %; Eosinophils % (A) 1 %; HCT 34.5 % (39.0-53.0); HGB 10.4 gm/dL (13.0-17.5); Hypochromasia Slight; Lymphocytes # (A) 0.5 k/uL (1.0-4.8); Lymphocytes % (A) 8 %; MCH 22.7 pg (25.0-35.0); MCHC 30.2 g/dL (31.0-37.0); MCV 75.2 fL (80.0-100.0); Mean Platelet Volume 7.3; Microcytosis Moderate; Monocytes # (A) 0.3 k/uL (0-1.0); Monocytes % (A) 4 %; Neutrophils # (A) 5.3 k/uL (1.3-7.7); Neutrophils % (A) 86 %; Platelet Count 373 k/uL (150-450); RBC 4.59 m/uL (4.30-5.90); RDW 17.1 % (11.5-15.5); WBC 6.1 k/uL (3.8-10.6)
[2024-01-10 08:35] LABS: African American GFR (CKD) >90 (>60 ml/min/1.73 sqM); Anion Gap 4 mmol/L; Blood Urea Nitrogen 16 mg/dL (9-20); Calcium 7.6 mg/dL (8.4-10.2); Carbon Dioxide 26 mmol/L (22-30); Chloride 102 mmol/L (98-107); Glucose 159 mg/dL (74-99); Non-African American GFR(CKD) >90 (>60 ml/min/1.73 sqM); Potassium 3.6 mmol/L (3.5-5.1); Sodium 132 mmol/L (137-145)
[2024-01-10] MEDS: MAGNESIUM SULFATE-D5W PMX 1 GM in DEXTROSE/WATER 1 100ML.BAG IVPB ONE (13:13)
--- NOTE | 2024-01-10 15:23 | P.PN ---
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 Patient also has a history of alcohol abuse and is a former smoker. Patient was recently admitted to the hospital from October 07 through November 13 secondary to an ileus and small bowel obstruction. Patient underwent laparotomy with lysis of adhesions for over 2 hours and excision of small bowel tumor x 3 closure of decompressive enterostomy partial omentectomy drainage of abdominal ascites 2 L underwent the surgery on October 16, 2023. Patient had an extensive hospital stay on to have Enterococcus and MRSA in the abdominal wound from the Homero-Dalton drain. He was discharged with IV antibiotics. Patient returns to the hospital secondary to 2-day complaints of abdominal pain and KUB x-ray initially showed dilated bowel loops with air fluid levels partial obstruction versus severe ileus. Follow up abdominal pelvis CT was done revealing persistent dilated fluid-filled distal small bowel and at least proximal colonic loops. Colonic obstruction is suspected cannot exclude ischemia or pneumatosis particularly the right colon. Advise lactic acid correlation advised urgent surgical evaluation. Patient's white blood cell count is normal at 9.2, hemoglobin 12.5, sodium 133, potassium 2.7, BUN 15, creatinine 0.53, magnesium 1.5, alk phos 220. Urinalysis is showing 1+ protein, greater than 182 RBCs, rare bacteria. He was admitted to the hospital for general surgery consultation patient is on IV fluids and receiving IV pain medication. N.p.o. at this time. 01/09/2024 Patient is evaluated today in follow up he is sitting up in the mario continues to report significant abdominal discomfort. Patient is on combination of IV dilaudid and IV toradol. He will be undergoing colonscopy for decompression sigmoid volvulus. Electrolytes have improved potassium 3.9, magnesium 1.9. 01/10/2024 Patient is evaluated today resting up in the chair. He continues to report 10 out of 10 abdominal pain and is alternating between IV Dilaudid and IV Toradol. She has not been able to tolerate much oral intake at this point. Continue currently on a clear liquid diet. He is postoperative day #1 colonoscopy for decompression. Patient at this time continues to deny any surgical intervention this will be follow-up with Dr. Easton on Friday. Potassium 3.6, magnesium 1.7 today. Review of Systems Constitutional: Denied any fatigue denied any fever. Cardio vascular: denied any chest pain, palpitations Gastrointestinal: denied any nausea, vomiting or diarrhea. Having abdominal pain Pulmonary: Denied any shortness of breath cough Neurologic denied any new focal deficits All inpatient medications were reviewed and appropriate changes in these medications as dictated in the interval history and assessment and plan. PHYSICAL EXAMINATION: GENERAL: The patient is alert and oriented x3, not in any acute distress. Well developed, well nourished. HEENT: Pupils are round and equally reacting to light. EOMI. No scleral icterus. No conjunctival pallor. Normocephalic, atraumatic. No pharyngeal erythema. No thyromegaly. CARDIOVASCULAR: S1 and S2 present. No murmurs, rubs, or gallops. PULMONARY: Chest is clear to auscultation, no wheezing or crackles. ABDOMEN: Soft, tender diffuse, nondistended, normoactive bowel sounds. No palpable organomegaly. MUSCULOSKELETAL: No joint swelling or deformity. EXTREMITIES: No cyanosis, clubbing, or pedal edema. NEUROLOGICAL: Gross neurological examination did not reveal any focal deficits. SKIN: No rashes. Assessment and Plan Abdominal pain secondary to severe ileus vs. bowel obstruction -Sigmoid volvulus status post colonic decompression Hx of bowel cancer with prior resection and lysis of adhesions and prolonged hospital stay Hypokalemia due to poor oral intake supplemented with IV potassium and improved levels Hyponatremia hypovolemic Hypomagnesemia Abnormal UA due to dehydration Hx of jaw cancer with chemoradiation and trach/peg in the past Hx of pulmonary embolism Severe protein malnutrition Iron deficiency anemia hx Hx of SVT Hx of ETOH Hx of nicotine use GI prophylaxis DVT prophylaxis Full Code Plan General surgery consultation Clear liquid diet Continue IV fluids to D5 normal saline Continue pain management with IV dilaudid and IV toradol Continue metoprolol Recommending to hold of on norvasc at this time Repeat blood work, monitor renal function/electrolytes The impression and plan of care has been dictated by Minda Tejada, Nurse Practitioner as directed. Dr. Carin MD I have performed a history and physical examination and medical decision making of this patient, discussed the same with the dictator, and agree with the dictators assessment and plan as written, documented as a scribe. Based on total visit time, I have performed more than 50% of this visit. Objective - Vital Signs Vital signs: Vital Signs Temp 98.2 F 01/10/24 07:20 Pulse 85 01/10/24 07:20 Resp 18 01/10/24 07:20 BP 116/85 01/10/24 07:20 Pulse Ox 98 01/10/24 07:20 FiO2 Intake & Output 01/09/24 01/10/24 01/10/24 18:59 06:59 18:59 Intake Total 300 Output Total 860 200 Balance -560 -200 Intake: IV 300 Output: Urine 860 200 Other: Voiding Method Urinal # Voids 3 - Labs CBC & Chem 7: 01/10/24 07:41 01/10/24 07:41 Labs: Abnormal Lab Results - Last 24 Hours (Table) 01/09/24 01/10/24 01/10/24 Range/Units 18:17 07:41 07:41 Hgb 10.4 L (13.0-17.5) gm/dL Hct 34.5 L (39.0-53.0) % MCV 75.2 L (80.0-100.0) fL MCH 22.7 L (25.0-35.0) pg MCHC 30.2 L (31.0-37.0) g/dL RDW 17.1 H (11.5-15.5) % Lymphocytes # 0.5 L (1.0-4.8) k/uL Sodium 132 L (137-145) mmol/L Creatinine 0.58 L (0.66-1.25) mg/dL Glucose 159 H (74-99) mg/dL POC Glucose (mg/dL) 119 H (70-110) mg/dL Calcium 7.6 L (8.4-10.2) mg/dL Assessment and Plan Time with Patient: Less than 30
[2024-01-11 02:16] LABS: Glucose,Whole Blood 120 mg/dL (70-110)
[2024-01-11] MEDS: SODIUM CHLORIDE 0.9% 500 ML 500 ML IV ONE (04:00)
[2024-01-11 06:18] LABS: African American GFR (CKD) >90 (>60 ml/min/1.73 sqM); Anion Gap 9 mmol/L; Blood Urea Nitrogen 17 mg/dL (9-20); Carbon Dioxide 20 mmol/L (22-30); Chloride 105 mmol/L (98-107); Glucose 128 mg/dL (74-99); Magnesium 1.7 mg/dL (1.6-2.3); Non-African American GFR(CKD) >90 (>60 ml/min/1.73 sqM); Potassium 3.9 mmol/L (3.5-5.1); Sodium 134 mmol/L (137-145)
[2024-01-11] MEDS: ONDANSETRON 4 MG/2 ML VIAL IVP PRN (12:38)
--- NOTE | 2024-01-11 14:08 | P.PN ---
Subjective Progress Note Date: 01/11/24 CHIEF COMPLAINT: Abdominal pain HISTORY OF PRESENT ILLNESS: The patient is a 43-year-old male with complex surgical history including bowel perforation 4 months ago followed by bowel obstruction month prior. Patient has sigmoid volvulus intermittently. He is status post colonic decompression. Patient at bedside is drinking moderate soda pop, carbonated beverages including straws. Reports increased abdominal distention. "I am still in pain." Patient has intermittent chronic abdominal pain. He is underweight, BMI 14.5. ROS: No fevers or chills. No new chest pain. No productive sputum PHYSICAL EXAM: VITAL SIGNS: Reviewed CONSTITUTIONAL: Cachectic male moderate distress due to abdominal pain EYES: Conjuctivae without sclera icterus. Extraocular movements grossly intact. HEAD, EARS, NOSE, THROAT: Moist buccal mucosa. Head is atraumatic, normocephalic. Hears conversational speech. No nasal drainage. RESPIRATORY: Non-labored respirations and equal bilateral excursions. Mediport of the right upper chest wall. CARDIOVASCULAR: Palpable 2+ radial pulses. ABDOMEN: Abdomen distended without peritonitis. MUSCULOSKELETAL: No gross deformity of the lower extremities noted. No cl ubbing. No cyanosis. SKIN: Good skin turgor. Well perfused. NEUROLOGIC: Cranial nerves II through XII grossly intact. No focal or lateralizing signs. PSYCH: Appropriate affect. Alert and oriented to person, place and time. CLINICAL LABS: Reviewed. WBC normal. Electrolytes within normal limits. ASSESSMENT: 1. Acute on chronic abdominal pain, generalized 2. Sigmoid volvulus, intermittent 3. Underweight, BMI 14.5 PLAN: 1. Extensive discussion performed at bedside regarding recurrent sigmoid volvulus. Despite multiple discussions, patient does not want surgery at this time. 2. In the interim, patient advised to avoid foods that adds additional gaseous distention including avoiding soda pop, carbonated beverages, straws. 3. As he is underweight, trial of diet discussed which he wants to try. 4. Emergent surgical intervention for perforation described. 5. Recommend PICC line for TPN due to severe protein malnutrition and underweight. 6. Surgical intervention while inpatient also described with colectomy possible ostomy. 7. Will obtain abdominal x-ray for abdominal distention Objective - Vital Signs Vital signs: Vital Signs Temp 98.1 F 01/11/24 07:25 Pulse 70 01/11/24 07:25 Resp 18 01/11/24 07:25 BP 128/86 01/11/24 07:25 Pulse Ox 100 01/11/24 07:25 FiO2 Intake & Output 01/10/24 01/11/24 01/11/24 18:59 06:59 18:59 Output Total 200 150 Balance -200 -150 Output: Urine 200 150 Other: Voiding Method Urinal Urinal Urinal - Labs CBC & Chem 7: 01/10/24 07:41 01/11/24 03:45 Labs: Abnormal Lab Results - Last 24 Hours (Table) 01/11/24 01/11/24 Range/Units 02:14 03:45 Sodium 134 L (137-145) mmol/L Carbon Dioxide 20 L (22-30) mmol/L Creatinine 0.62 L (0.66-1.25) mg/dL Glucose 128 H (74-99) mg/dL POC Glucose (mg/dL) 120 H (70-110) mg/dL Calcium 8.0 L (8.4-10.2) mg/dL
--- NOTE | 2024-01-11 15:02 | P.PN ---
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 Patient also has a history of alcohol abuse and is a former smoker. Patient was recently admitted to the hospital from October 07 through November 13 secondary to an ileus and small bowel obstruction. Patient underwent laparotomy with lysis of adhesions for over 2 hours and excision of small bowel tumor x 3 closure of decompressive enterostomy partial omentectomy drainage of abdominal ascites 2 L underwent the surgery on October 16, 2023. Patient had an extensive hospital stay on to have Enterococcus and MRSA in the abdominal wound from the Homero-Dalton drain. He was discharged with IV antibiotics. Patient returns to the hospital secondary to 2-day complaints of abdominal pain and KUB x-ray initially showed dilated bowel loops with air fluid levels partial obstruction versus severe ileus. Follow up abdominal pelvis CT was done revealing persistent dilated fluid-filled distal small bowel and at least proximal colonic loops. Colonic obstruction is suspected cannot exclude ischemia or pneumatosis particularly the right colon. Advise lactic acid correlation advised urgent surgical evaluation. Patient's white blood cell count is normal at 9.2, hemoglobin 12.5, sodium 133, potassium 2.7, BUN 15, creatinine 0.53, magnesium 1.5, alk phos 220. Urinalysis is showing 1+ protein, greater than 182 RBCs, rare bacteria. He was admitted to the hospital for general surgery consultation patient is on IV fluids and receiving IV pain medication. N.p.o. at this time. 01/09/2024 Patient is evaluated today in follow up he is sitting up in the mario continues to report significant abdominal discomfort. Patient is on combination of IV dilaudid and IV toradol. He will be undergoing colonscopy for decompression sigmoid volvulus. Electrolytes have improved potassium 3.9, magnesium 1.9. 01/10/2024 Patient is evaluated today resting up in the chair. He continues to report 10 out of 10 abdominal pain and is alternating between IV Dilaudid and IV Toradol. She has not been able to tolerate much oral intake at this point. Continue currently on a clear liquid diet. He is postoperative day #1 colonoscopy for decompression. Patient at this time continues to deny any surgical intervention this will be follow-up with Dr. Easton on Friday. Potassium 3.6, magnesium 1.7 today. 01/11/2024 Patient is evaluated today resting in bed. He is postoperative day #2 colonscopy for decompression. This patient continues to report 10/10 abdominal pain and is continued on a course of IV dilaudid and IV toradol without improvement in the pain. He continues to report not wanting surgical intervention. He is distended today has been started on gas gtts. Blood work today shows sodium 134. He was continued on D5 normal saline due to hypoglycemia which has resolved with the gtt. Review of Systems Constitutional: Denied any fatigue denied any fever. Cardio vascular: denied any chest pain, palpitations Gastrointestinal: denied any nausea, vomiting or diarrhea. Having abdominal pain Pulmonary: Denied any shortness of breath cough Neurologic denied any new focal deficits All inpatient medications were reviewed and appropriate changes in these m edications as dictated in the interval history and assessment and plan. PHYSICAL EXAMINATION: GENERAL: The patient is alert and oriented x3, not in any acute distress. Well developed, well nourished. HEENT: Pupils are round and equally reacting to light. EOMI. No scleral icterus. No conjunctival pallor. Normocephalic, atraumatic. No pharyngeal erythema. No thyromegaly. CARDIOVASCULAR: S1 and S2 present. No murmurs, rubs, or gallops. PULMONARY: Chest is clear to auscultation, no wheezing or crackles. ABDOMEN: Soft, tender diffuse, distended and tympanic, normoactive bowel sounds. No palpable organomegaly. MUSCULOSKELETAL: No joint swelling or deformity. EXTREMITIES: No cyanosis, clubbing, or pedal edema. NEUROLOGICAL: Gross neurological examination did not reveal any focal deficits. SKIN: No rashes. Assessment and Plan Abdominal pain chronic with sigmoid volvulus Sigmoid volvulus status post colonic decompression Abdominal distention rule out ileus abdominal xray is ordered by surgery. Patient is continued on gas gtts. Hx of bowel cancer with prior resection and lysis of adhesions and prolonged hospital stay Hypokalemia due to poor oral intake supplemented with IV potassium and improved levels Hyponatremia hypovolemic Hypomagnesemia Abnormal UA due to dehydration Hx of jaw cancer with chemoradiation and trach/peg in the past Hx of pulmonary embolism Severe protein malnutrition patient will be getting PICC line for nutrition may be a candidate for PEG tube if he is not able to increase his oral intake and meet caloric needs. Iron deficiency anemia hx Hx of SVT Hx of ETOH Hx of nicotine use GI prophylaxis DVT prophylaxis Full Code Plan General surgery consultation Clear liquid diet advanced to low fiber per surgery Abdominal xray Continue IV fluids changed to normal saline at 125 mls/hr at increased rate due to the hyponatremia and poor oral intake. Continue pain management with IV dilaudid and IV toradol Continue metoprolol Recommending to hold of on norvasc at this time Repeat blood work, monitor renal function/electrolytes The impression and plan of care has been dictated by Minda Tejada Nurse Practitioner as directed. Dr. Carin MD I have performed a history and physical examination and medical decision making of this patient, discussed the same with the dictator, and agree with the dictators assessment and plan as written, documented as a scribe. Based on total visit time, I have performed more than 50% of this visit. Objective - Vital Signs Vital signs: Vital Signs Temp 97.6 F 01/11/24 13:27 Pulse 63 01/11/24 13:27 Resp 17 01/11/24 13:27 BP 109/76 01/11/24 13:27 Pulse Ox 98 01/11/24 13:27 FiO2 Intake & Output 01/10/24 01/11/24 01/11/24 18:59 06:59 18:59 Output Total 200 150 Balance -200 -150 Output: Urine 200 150 Other: Voiding Method Urinal Urinal Urinal - Labs CBC & Chem 7: 01/10/24 07:41 01/11/24 03:45 Labs: Abnormal Lab Results - Last 24 Hours (Table) 01/11/24 01/11/24 Range/Units 02:14 03:45 Sodium 134 L (137-145) mmol/L Carbon Dioxide 20 L (22-30) mmol/L Creatinine 0.62 L (0.66-1.25) mg/dL Glucose 128 H (74-99) mg/dL POC Glucose (mg/dL) 120 H (70-110) mg/dL Calcium 8.0 L (8.4-10.2) mg/dL Assessment and Plan Time with Patient: Less than 30
[2024-01-11] MEDS: LACTULOSE 20 GM/30 ML CUP PO ONE (15:18)
[2024-01-11] MEDS: MAGNESIUM SULFATE-D5W PMX 1 GM in DEXTROSE/WATER 1 100ML.BAG IVPB ONE (15:19)
[2024-01-11] MEDS: SODIUM CHLORIDE 0.9% 1,000 ML IV SCH (15:20)
--- NOTE | 2024-01-11 15:26 | XR ---
EXAMINATION TYPE: XR abdomen 2V DATE OF EXAM: 01/11/2024 3:20 PM CLINICAL INDICATION:Male, 43 years old with history of abdominal distention and pain; [facility] COMPARISON: Abdominal radiograph 01/07/2024 TECHNIQUE: Two views of the abdomen were obtained. FINDINGS: There is redemonstration of dilated loops small bowel within the midabdomen within the mida bdomen. No definitive evidence of free gas is identified. Fecal material is identified in the region of the rectum. The osseous structures are intact. Lung bases are within normal limits. IMPRESSION: Redemonstrated findings concerning for small bowel obstruction versus developing ileus. Overall sligh tly progressed when compared to the most recent radiograph comparison.
[2024-01-11 23:54] LABS: Glucose,Whole Blood 135 mg/dL (70-110)
[2024-01-12] MEDS: LACTULOSE 20 GM/30 ML CUP PO SCH (08:15)
[2024-01-12 08:39] LABS: Magnesium 1.8 mg/dL (1.5-2.4)
[2024-01-12 09:04] LABS: BUN/Creat Ratio 23.88 Ratio (12.00-20.00); Blood Urea Nitrogen 19.1 mg/dL (9.0-27.0); Calcium 7.9 mg/dL (8.7-10.3); Carbon Dioxide 19.6 mmol/L (21.6-31.8); Chloride 106 mmol/L (96-109); Glucose 102 mg/dL (70-110); Sodium 139 mmol/L (135-145)
[2024-01-12 12:15] LABS: Glucose,Whole Blood 91 mg/dL (70-110)
[2024-01-12 12:21] LABS: INR 1.4 (<1.2); Prothrombin Time 14.2 sec (10.0-12.5)
--- NOTE | 2024-01-12 13:48 | P.PN ---
Subjective Progress Note Date: 01/12/24 CHIEF COMPLAINT: Abdominal pain HISTORY OF PRESENT ILLNESS: The patient is a 43-year-old male with complex surgical history including bowel perforation 4 months ago followed by bowel obstruction month prior. Patient has sigmoid volvulus intermittently. He is status post colonic decompression. Patient reports a tiny amount of flatus. Denies any bowel movements. He ate a pork chop for dinner and since then increased abdominal pain with distention. He had 3 episode of vomiting. Abdominal x-ray reported redemonstrating findings concerning for small bowel obstruction versus developing ileus. INR 1.4 Patient seen and examined with Dr. Easton PHYSICAL EXAM: VITAL SIGNS: Reviewed GENERAL: Well-developed in no acute distress. HEENT: No sclera icterus. Extraocular movements grossly intact. Moist buccal mucosa. Head is atraumatic, normocephalic. Hears conversational speech. No nasal dr ainage. NECK: Supple without lymphadenopathy. CHEST: Non-labored respirations and equal bilateral excursions. CARDIOVASCULAR: Palpable 2+ radial pulses. ABDOMEN: Distended. Tender with palpation MUSCULOSKELETAL: No clubbing or cyanosis. NEUROLOGIC: No focal or lateralizing signs. Cranial nerves II through XII grossly intact. PSYCH: Appropriate affect. Alert and oriented to person, place and time. SKIN: Well perfused. Good skin turgor. ASSESSMENT: 1. Acute on chronic abdominal pain, generalized 2. Sigmoid volvulus, intermittent 3. Possible ileus versus small bowel obstruction noted on abdominal x-ray 4. Underweight, BMI 14.5 PLAN: -Patient scheduled for PICC line placement to start TPN for nutrition support -Consult placed for dietitian for TPN -Place NG tube for decompression -Keep patient n.p.o. -Patient is scheduled for open sigmoid colectomy, possible ostomy on 01/14/[address] Easton -I was at bedside as Dr. Easton described the PICC line, NG tube and surgery that she has planned for the patient in extreme detail. She answered all of the patient's questions. Patient is agreeable to proceed with the PICC line, NG tube and surgery. Physician [employer] Pattern[employer] note has been reviewed by physician. Signing provider agrees with the documented findings, assessment, and plan of care. Please see additional documentation below CHIEF COMPLAINT: Abdominal pain HISTORY OF PRESENT ILLNESS: The patient is a 43-year-old male with acute on chronic abdominal pain due to large and small bowel obstruction. Patient has baseline severe protein malnutrition. Patient had normal food and now reports severe abdominal pain including emesis. Reports decreased passage of flatus. REVIEW OF ORGAN SYSTEMS: CONSTITUTIONAL: No fevers or chills. Underweight, BMI under 15 GASTROINTESTINAL: History of bowel perforation, bowel obstruction, chronic const ipation. MUSCULOSKELETAL: Has back pain, stiffness or joint arthritis. PHYSICAL EXAM: VITALS: Reviewed CONSTITUTIONAL: Cachectic male in no acute distress. EYES: Conjuctivae without sclera icterus. Extraocular movements grossly intact. HEAD, EARS, NOSE, THROAT: Moist buccal mucosa. Head is atraumatic, normocephalic. Hears conversational speech. No nasal drainage. RESPIRATORY: Non-labored respirations and equal bilateral excursions. No gross wheezes. CARDIOVASCULAR: Palpable 2+ radial pulses. ABDOMEN: Distended. No gross peritonitis. Upper abdominal tenderness. MUSCULOSKELETAL: No clubbing cyanosis or edema SKIN: Warm and well perfused with good skin turgor. NEUROLOGIC: Cranial nerves II through XII grossly intact. No focal or lateralizing signs. PSYCH: Appropriate affect. Alert and oriented to person, place and time. Displays appropriate insight. CLINCAL LABS: Reviewed. WBC normal. IMAGING: Independently reviewed. Abdominal x-ray demonstrates diffuse gaseous distention. No free air. This is my independent interpretation. ASSESSMENT: 1. Abdominal pain 2. Intestinal obstruction colonic versus small bowel 3. Cachexia, underweight, BMI less than 15.0 PLAN: 1. With the patient recurrent symptoms of bowel obstruction, do recommend placement of PICC line for TPN. 2. Additionally, patient has high risk of colon obstruction due to volvulus as per his prior studies. Will benefit from exploratory laparotomy possible ostomy reviewed. 3. Recommend placement of nasogastric tube for GI decompression 4. Overall, patient reluctant to proceed with any surgery at this time. Objective - Vital Signs Vital signs: Vital Signs Temp 98.2 F 01/12/24 07:11 Pulse 89 01/12/24 07:11 Resp 18 01/12/24 07:11 BP 126/89 01/12/24 07:11 Pulse Ox 98 01/12/24 07:11 FiO2 Intake & Output 06/16/24 06/17/24 06/17/24 18:59 06:59 18:59 Output Total 50 375 Balance -50 -375 Output: Urine 50 200 Emesis 175 Other: Voiding Method Urinal Urinal # Emeses 1 - Labs CBC & Chem 7: 01/26/24 06:30 01/26/24 06:30 Labs: Abnormal Lab Results - Last 24 Hours (Table) 01/11/24 01/12/24 01/12/24 Range/Units 23:53 05:35 11:17 PT 14.2 H (10.0-12.5) sec INR 1.4 H (<1.2) Carbon Dioxide 19.6 L (21.6-31.8) mmol/L Anion Gap 13.40 H (4.00-12.00) mmol/L BUN/Creatinine Ratio 23.88 H (12.00-20.00) Ratio POC Glucose (mg/dL) 135 H (70-110) mg/dL Calcium 7.9 L (8.7-10.3) mg/dL
[2024-01-12] MEDS: D5-0.45% NACL WITH KCL 20MEQ/L 1,000 ML IV SCH (16:39)
--- NOTE | 2024-01-12 16:47 | XR ---
EXAMINATION TYPE: XR chest 1V DATE OF EXAM: 01/12/2024 4:34 PM CLINICAL INDICATION:Male, 43 years old with history of picc placement; [facility] COMPARISON: Chest radiographs from 01/08/2024. TECHNIQUE: XR chest 1V Frontal view of the chest. FINDINGS: Lungs/Pleura: There is no evidence of pleural effusion, focal consolidation, or pneumothorax. Pulmonary vascularity: Unremarkable. Heart/mediastinum: Cardiomediastinal silhouette is unremarkable. Musculoskeletal: No acute osseous pathology. Other findings: Dilated gaseous filled loops of small bowel in the upper abdomen. Lines/Tubes: Nasogastric tube with its distal tip and side-port projecting under the diaphragm. [id number] projecting over the right hemithorax with distal tip at the cavoatrial junction. Left-sided PICC with distal tip at the superior vena cava/brachiocephalic confluence. IMPRESSION: 1. Support lines and tubes in appropriate position. 2. Upper abdominal distention of bowel correlate for ileus versus obstruction. 3. No acute cardiopulmonary disease/process.
[2024-01-12 16:51] LABS: Glucose,Whole Blood 84 mg/dL (70-110)
[2024-01-12 19:54] LABS: Basophils # (A) 0 X 10*3/uL (0.00-0.10); Basophils % (A) 0 %; Eosinophils # (A) 0 X 10*3/uL (0.04-0.35); Eosinophils % (A) 0 %; HCT 34.5 % (39.6-50.0); HGB 10.7 g/dL (13.0-17.0); Lymphocytes # (A) 0.43 X 10*3/uL (0.90-5.00); Lymphocytes % (A) 4.9 %; MCH 22.5 pg (27.0-32.0); MCV 72.5 FL (80.0-97.0); Mean Platelet Volume 9.7 FL (9.5-12.2); Monocytes # (A) 0.28 X 10*3/uL (0.20-1.00); Monocytes % (A) 3.2 %; NRBC Per 100 WBC 0 X 10*3/uL (0.00-0.01); Neutrophils # (A) 8.04 X 10*3/uL (1.80-7.70); Neutrophils % (A) 91.1 %; Platelet Count 414 X 10*3/uL (140-440); RBC 4.76 X 10*6/uL (4.40-5.60); RBC Morphology Normal (Normal); RDW 16.5 % (11.5-14.5); WBC 8.82 X 10*3/uL (4.50-10.00)
--- NOTE | 2024-01-12 20:30 | P.PN ---
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 Patient also has a history of alcohol abuse and is a former smoker. Patient was recently admitted to the hospital from October 07 through November 13 secondary to an ileus and small bowel obstruction. Patient underwent laparotomy with lysis of adhesions for over 2 hours and excision of small bowel tumor x 3 closure of decompressive enterostomy partial omentectomy drainage of abdominal ascites 2 L underwent the surgery on October 16, 2023. Patient had an extensive hospital stay on to have Enterococcus and MRSA in the abdominal wound from the Homero-Dalton drain. He was discharged with IV antibiotics. Patient returns to the hospital secondary to 2-day complaints of abdominal pain and KUB x-ray initially showed dilated bowel loops with air fluid levels partial obstruction versus severe ileus. Follow up abdominal pelvis CT was done revealing persistent dilated fluid-filled distal small bowel and at least proximal colonic loops. Colonic obstruction is suspected cannot exclude ischemia or pneumatosis particularly the right colon. Advise lactic acid correlation advised urgent surgical evaluation. Patient's white blood cell count is normal at 9.2, hemoglobin 12.5, sodium 133, potassium 2.7, BUN 15, creatinine 0.53, magnesium 1.5, alk phos 220. Urinalysis is showing 1+ protein, greater than 182 RBCs, rare bacteria. He was admitted to the hospital for general surgery consultation patient is on IV fluids and receiving IV pain medication. N.p.o. at this time. 01/09/2024 Patient is evaluated today in follow up he is sitting up in the mario continues to report significant abdominal discomfort. Patient is on combination of IV dilaudid and IV toradol. He will be undergoing colonscopy for decompression sigmoid volvulus. Electrolytes have improved potassium 3.9, magnesium 1.9. 01/10/2024 Patient is evaluated today resting up in the chair. He continues to report 10 out of 10 abdominal pain and is alternating between IV Dilaudid and IV Toradol. She has not been able to tolerate much oral intake at this point. Continue currently on a clear liquid diet. He is postoperative day #1 colonoscopy for decompression. Patient at this time continues to deny any surgical intervention this will be follow-up with Dr. Easton on Friday. Potassium 3.6, magnesium 1.7 today. 01/11/2024 Patient is evaluated today resting in bed. He is postoperative day #2 colonscopy for decompression. This patient continues to report 10/10 abdominal pain and is continued on a course of IV dilaudid and IV toradol without improvement in the pain. He continues to report not wanting surgical intervention. He is distended today has been started on gas gtts. Blood work today shows sodium 134. He was continued on D5 normal saline due to hypoglycemia which has resolved with the gtt. 01/12/2024 Patient is evaluated today sitting up in bed. Abdominal xray was completed in follow up today showing ileus vs. small bowel obstruction. NG tube was placed with immediate output of over 500 mls of bilious thick gastric drainage. Patient continues to report 10/10 abdominal pain and continues on course of IV toradol and IV dialudid. Patient has been continued on IV fluids with his blood glucose beginning to decline into the 90s and fluids were changed to D5 1/2 normal saline pending PICC line and enteral nutrition. INR 1.4. Labs today reveal sodium 139, potassium 4.0, BUN 19.1, creatinine 0.8. Magnesium 1.8. Chest xray done to conform NG tube placement. Continues to show upper abdominal distention of bowel correlate for ileus vs. obstruction. No acute cardiopulmonary disease/process. Review of Systems Constitutional: Denied any fatigue denied any fever. Cardio vascular: denied any chest pain, palpitations Gastrointestinal: denied any nausea, vomiting or diarrhea. Having abdominal pain Pulmonary: Denied any shortness of breath cough Neurologic denied any new focal deficits All inpatient medications were reviewed and appropriate changes in these medications as dictated in the interval history and assessment and plan. PHYSICAL EXAMINATION: GENERAL: The patient is alert and oriented x3, not in any acute distress. Well developed, well nourished. HEENT: Pupils are round and equally reacting to light. EOMI. No scleral icterus. No conjunctival pallor. Normocephalic, atraumatic. No pharyngeal erythema. No thyromegaly. CARDIOVASCULAR: S1 and S2 present. No murmurs, rubs, or gallops. PULMONARY: Chest is clear to auscultation, no wheezing or crackles. ABDOMEN: Soft, tender diffuse, distended and tympanic, normoactive bowel sounds. No palpable organomegaly. NG tube has been placed. MUSCULOSKELETAL: No joint swelling or deformity. EXTREMITIES: No cyanosis, clubbing, or pedal edema. NEUROLOGICAL: Gross neurological examination did not reveal any focal deficits. SKIN: No rashes. Assessment and Plan Abdominal pain chronic with sigmoid volvulus Sigmoid volvulus status post colonic decompression Abdominal distention ileus vs. bowel obstruction Hx of bowel cancer with prior resection and lysis of adhesions and prolonged hospital stay Hypokalemia due to poor oral intake supplemented with IV potassium and improved levels Hyponatremia hypovolemic Hypomagnesemia Abnormal UA due to dehydration Hx of jaw cancer with chemoradiation and trach/peg in the past Hx of pulmonary embolism Severe protein malnutrition patient will be getting PICC line for nutrition may be a candidate for PEG tube if he is not able to increase his oral intake and meet caloric needs. Iron deficiency anemia hx Hx of SVT Hx of ETOH Hx of nicotine use GI prophylaxis DVT prophylaxis Full Code Plan General surgery consultation Patient is now NPO NG tube has been placed for gastric decompression. Continue IV fluids D5 water until PICC line has been placed for enteral nutrition. Continue pain management with IV dilaudid and IV toradol Continue metoprolol Recommending to hold of on norvasc at this time Repeat blood work, monitor renal function/electrolytes PT/OT consultation. The impression and plan of care has been dictated by Minda Tejada, Nurse Practitioner as directed. Dr. Carin MD I have performed a history and physical examination and medical decision making of this patient, discussed the same with the dictator, and agree with the dictators assessment and plan as written, documented as a scribe. Based on total visit time, I have performed more than 50% of this visit. Objective - Vital Signs Vital signs: Vital Signs Temp 97.6 F 01/12/24 13:36 Pulse 95 01/12/24 13:36 Resp 16 01/12/24 13:36 BP 101/74 01/12/24 13:36 Pulse Ox 99 01/12/24 13:36 FiO2 Intake & Output 01/11/24 01/12/24 01/12/24 18:59 06:59 18:59 Output Total 50 375 Balance -50 -375 Output: Urine 50 200 Emesis 175 Other: Voiding Method Urinal Urinal # Emeses 1 - Labs CBC & Chem 7: 01/12/24 14:15 01/12/24 05:35 Labs: Abnormal Lab Results - Last 24 Hours (Table) 01/11/24 01/12/24 01/12/24 Range/Units 23:53 05:35 11:17 PT 14.2 H (10.0-12.5) sec INR 1.4 H (<1.2) Carbon Dioxide 19.6 L (21.6-31.8) mmol/L Anion Gap 13.40 H (4.00-12.00) mmol/L BUN/Creatinine Ratio 23.88 H (12.00-20.00) Ratio POC Glucose (mg/dL) 135 H (70-110) mg/dL Calcium 7.9 L (8.7-10.3) mg/dL Assessment and Plan Time with Patient: Less than 30
[2024-01-12] MEDS: MVI, ADULT NO.4 WITH VIT K 10 ML, TRACE (CONC-1ML/DOSE) 1 ML in AMINO ACID 5%-D20W+LYTE... IV SCH (23:24)
[2024-01-12 23:49] LABS: Glucose,Whole Blood 160 mg/dL (70-110)
[2024-01-13 06:03] LABS: Glucose,Whole Blood 144 mg/dL (70-110)
[2024-01-13 10:04] LABS: Ionized Calcium 4.6 mg/dL (4.5-5.3)
[2024-01-13 10:42] LABS: ALT 21 U/L (4-49); AST 17 U/L (17-59); African American GFR (CKD) >90 (>60 ml/min/1.73 sqM); Albumin/Globulin Ratio 0.9; Alkaline Phosphatase 113 U/L (38-126); Anion Gap 4 mmol/L; Blood Urea Nitrogen 24 mg/dL (9-20); Calcium 7.7 mg/dL (8.4-10.2); Carbon Dioxide 25 mmol/L (22-30); Chloride 106 mmol/L (98-107); Globulin 2.2 g/dL; Glucose 127 mg/dL (74-99); Magnesium 1.8 mg/dL (1.6-2.3); Non-African American GFR(CKD) >90 (>60 ml/min/1.73 sqM); Phosphorus 3.2 mg/dL (2.5-4.5); Potassium 3.9 mmol/L (3.5-5.1); Sodium 135 mmol/L (137-145); Total Bilirubin 0.2 mg/dL (0.2-1.3); Total Protein 4.2 g/dL (6.3-8.2)
[2024-01-13 12:07] LABS: Glucose,Whole Blood 162 mg/dL (70-110)
--- NOTE | 2024-01-13 13:33 | P.PN ---
Subjective Progress Note Date: 01/06/24 CHIEF COMPLAINT: Abdominal pain HISTORY OF PRESENT ILLNESS: The patient is a 43-year-old male with complex surgical history including bowel perforation 4 months ago followed by bowel obstruction month prior. Patient has sigmoid volvulus intermittently. He is status post colonic decompression. Patient had NG tube placed yesterday with initially 2000 mL output. And had 800 mL output through the night. Patient does report some decrease in abdominal pain. The abdominal distention is slightly less as well. He has had no bowel activity. Denies any nausea. Started reports that he is feeling hungry again. He does have TPN running. PHYSICAL EXAM: VITAL SIGNS: Reviewed GENERAL: Well-developed in no acute distress. HEENT: No sclera icterus. Extraocular movements grossly intact. Moist buccal mucosa. Head is atraumatic, normocephalic. Hears conversational speech. No nasal drainage. NECK: Supple without lymphadenopathy. CHEST: Non-labored respirations and equal bilateral excursions. CARDIOVASCULAR: Palpable 2+ radial pulses. ABDOMEN: Slightly less distended. Tender with palpation MUSCULOSKELETAL: No clubbing or cyanosis. NEUROLOGIC: No focal or lateralizing signs. Cranial nerves II through XII grossly intact. PSYCH: Appropriate affect. Alert and oriented to person, place and time. SKIN: Well perfused. Good skin turgor. ASSESSMENT: 1. Acute on chronic abdominal pain, generalized 2. Sigmoid volvulus, intermittent 3. Possible ileus versus small bowel obstruction noted on abdominal x-ray 4. Underweight, BMI 14.5 PLAN: -Patient scheduled tomorrow, January 14, 2024 for open sigmoid colectomy and possible ostomy with Dr. Easton -Continue NG tube for decompression -Keep patient n.p.o. -Continue TPN for nutrition support -Continue pain management Physician Tongue Presser note has been reviewed by physician. Signing provider agrees with the documented findings, assessment, and plan of care. Please see additional documentation below CHIEF COMPLAINT: Abdominal pain HISTORY OF PRESENT ILLNESS: The patient is a 43-year-old male with acute on chronic abdominal pain due to large and small bowel obstruction. Nasogastric tube has been placed with large output. He reports minimal to no passage of flatus. Abdomen still distended however slightly improved with regards to pain. REVIEW OF ORGAN SYSTEMS: CONSTITUTIONAL: No fevers or chills. Underweight, BMI under 15 GASTROINTESTINAL: History of bowel perforation, bowel obstruction, chronic constipation. MUSCULOSKELETAL: Has back pain, stiffness or joint arthritis. PHYSICAL EXAM: VITALS: Reviewed CONSTITUTIONAL: Cachectic male in no acute distress. EYES: Conjuctivae without sclera icterus. Extraocular movements grossly intact. HEAD, EARS, NOSE, THROAT: Moist buccal mucosa. Head is atraumatic, normocephalic. Hears conversational speech. No nasal drainage. RESPIRATORY: Non-labored respirations and equal bilateral excursions. No gross wheezes. CARDIOVASCULAR: Palpable 2+ radial pulses. ABDOMEN: Obese abdominal distention. No peritonitis. Tympanic. MUSCULOSKELETAL: No clubbing cyanosis or edema SKIN: Warm and well perfused with good skin turgor. NEUROLOGIC: Cranial nerves II through XII grossly intact. No focal or lateralizing signs. PSYCH: Appropriate affect. Alert and oriented to person, place and time. Displays appropriate insight. CLINCAL LABS: Reviewed. WBC normal. ASSESSMENT: 1. Abdominal pain 2. Intestinal obstruction colonic versus small bowel 3. Cachexia, underweight, BMI less than 15.0 PLAN: 1. Clinically, patient's scores has minimal improvement. Patient is seeking alternatives to exploratory laparotomy possible colectomy possible ostomy 2. TPN for moderate to severe protein malnutrition including prolonged n.p.o. status 3. IV fluid hydration Objective - Vital Signs Vital signs: Vital Signs Temp 97.6 F 01/13/24 07:18 Pulse 70 01/13/24 07:18 Resp 16 01/13/24 07:18 BP 102/72 01/13/24 07:18 Pulse Ox 100 01/13/24 07:18 FiO2 Intake & Output 01/12/24 01/13/24 01/13/24 18:59 06:59 18:59 Output Total 2900 875 100 Balance -2900 -875 -100 Weight 40.823 kg Output: Gastric Drainage 2800 800 Urine 100 75 100 Other: Voiding Method Urinal Urinal # Voids 1 - Labs CBC & Chem 7: 01/26/24 06:30 01/26/24 06:30 Labs: Abnormal Lab Results - Last 24 Hours (Table) 01/12/24 01/12/24 01/13/24 Range/Units 14:15 23:48 05:59 Hgb 10.7 L (13.0-17.0) g/dL Hct 34.5 L (39.6-50.0) % MCV 72.5 L (80.0-97.0) FL MCH 22.5 L (27.0-32.0) pg MCHC 31.0 L (32.0-37.0) g/dL RDW 16.5 H (11.5-14.5) % Immature Gran # 0.07 H (0.00-0.04) X 10*3/uL Neutrophils # 8.04 H (1.80-7.70) X 10*3/uL Lymphocytes # 0.43 L (0.90-5.00) X 10*3/uL Eosinophils # 0 L (0.04-0.35) X 10*3/uL Sodium (137-145) mmol/L BUN (9-20) mg/dL Glucose (74-99) mg/dL POC Glucose (mg/dL) 160 H 144 H (70-110) mg/dL Calcium (8.4-10.2) mg/dL Total Protein (6.3-8.2) g/dL Albumin (3.5-5.0) g/dL 01/13/24 01/13/24 Range/Units 09:04 12:05 Hgb (13.0-17.0) g/dL Hct (39.6-50.0) % MCV (80.0-97.0) FL MCH (27.0-32.0) pg MCHC (32.0-37.0) g/dL RDW (11.5-14.5) % Immature Gran # (0.00-0.04) X 10*3/uL Neutrophils # (1.80-7.70) X 10*3/uL Lymphocytes # (0.90-5.00) X 10*3/uL Eosinophils # (0.04-0.35) X 10*3/uL Sodium 135 L (137-145) mmol/L BUN 24 H (9-20) mg/dL Glucose 127 H (74-99) mg/dL POC Glucose (mg/dL) 162 H (70-110) mg/dL Calcium 7.7 L (8.4-10.2) mg/dL Total Protein 4.2 L (6.3-8.2) g/dL Albumin 2.0 L (3.5-5.0) g/dL
--- NOTE | 2024-01-13 14:36 | P.PN ---
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 Patient also has a history of alcohol abuse and is a former smoker. Patient was recently admitted to the hospital from October 07 through November 13 secondary to an ileus and small bowel obstruction. Patient underwent laparotomy with lysis of adhesions for over 2 hours and excision of small bowel tumor x 3 closure of decompressive enterostomy partial omentectomy drainage of abdominal ascites 2 L underwent the surgery on October 16, 2023. Patient had an extensive hospital stay on to have Enterococcus and MRSA in the abdominal wound from the Homero-Dalton drain. He was discharged with IV antibiotics. Patient returns to the hospital secondary to 2-day complaints of abdominal pain and KUB x-ray initially showed dilated bowel loops with air fluid levels partial obstruction versus severe ileus. Follow up abdominal pelvis CT was done revealing persistent dilated fluid-filled distal small bowel and at least proximal colonic loops. Colonic obstruction is suspected cannot exclude ischemia or pneumatosis particularly the right colon. Advise lactic acid correlation advised urgent surgical evaluation. Patient's white blood cell count is normal at 9.2, hemoglobin 12.5, sodium 133, potassium 2.7, BUN 15, creatinine 0.53, magnesium 1.5, alk phos 220. Urinalysis is showing 1+ protein, greater than 182 RBCs, rare bacteria. He was admitted to the hospital for general surgery consultation patient is on IV fluids and receiving IV pain medication. N.p.o. at this time. 01/09/2024 Patient is evaluated today in follow up he is sitting up in the mario continues to report significant abdominal discomfort. Patient is on combination of IV dilaudid and IV toradol. He will be undergoing colonscopy for decompression sigmoid volvulus. Electrolytes have improved potassium 3.9, magnesium 1.9. 01/10/2024 Patient is evaluated today resting up in the chair. He continues to report 10 out of 10 abdominal pain and is alternating between IV Dilaudid and IV Toradol. She has not been able to tolerate much oral intake at this point. Continue currently on a clear liquid diet. He is postoperative day #1 colonoscopy for decompression. Patient at this time continues to deny any surgical intervention this will be follow-up with Dr. Easton on Friday. Potassium 3.6, magnesium 1.7 today. 01/11/2024 Patient is evaluated today resting in bed. He is postoperative day #2 colonscopy for decompression. This patient continues to report 10/10 abdominal pain and is continued on a course of IV dilaudid and IV toradol without improvement in the pain. He continues to report not wanting surgical intervention. He is distended today has been started on gas gtts. Blood work today shows sodium 134. He was continued on D5 normal saline due to hypoglycemia which has resolved with the gtt. 01/12/2024 Patient is evaluated today sitting up in bed. Abdominal xray was completed in follow up today showing ileus vs. small bowel obstruction. NG tube was placed with immediate output of over 500 mls of bilious thick gastric drainage. Patient continues to report 10/10 abdominal pain and continues on course of IV toradol and IV dialudid. Patient has been continued on IV fluids with his blood glucose beginning to decline into the 90s and fluids were changed to D5 1/2 normal saline pending PICC line and enteral nutrition. INR 1.4. Labs today reveal sodium 139, potassium 4.0, BUN 19.1, creatinine 0.8. Magnesium 1.8. Chest xray done to conform NG tube placement. Continues to show upper abdominal distention of bowel correlate for ileus vs. obstruction. No acute cardiopulmonary disease/process. 01/13/2024 Patient is evaluated in follow-up on the medical floor. Patient continues with NG tube in place and has had an output of total 3.6 L of gastric drainage. Patient had a PICC line placed yesterday and continues on TPN nutrition. Patient continues to report 10 out of 10 abdominal discomfort although his abdomen is more soft today with improved bowel sounds. He is continued on alternating IV Dilaudid 1 mg every 3 hours, 50 mg of IV Toradol push every 6 hours. Patient reports his pain is not being touched by this medication regimen. Patient is scheduled to undergo open sigmoid colectomy with possible ostomy tomorrow with Dr. Easton. Lab work today reveals a sodium level of 135, potassium 3.9, BUN of 24, creatinine of 0.67 blood glucose in the 160s, calcium level of 7.7. His LFTs are within normal limits. His albumin is low at 2.0. Review of Systems Constitutional: Denied any fatigue denied any fever. Cardio vascular: denied any chest pain, palpitations Gastrointestinal: denied any nausea, vomiting or diarrhea. Having abdominal pain Pulmonary: Denied any shortness of breath cough Neurologic denied any new focal deficits All inpatient medications were reviewed and appropriate changes in these medications as dictated in the interval history and assessment and plan. PHYSICAL EXAMINATION: GENERAL: The patient is alert and oriented x3, not in any acute distress. Well developed, well nourished. HEENT: Pupils are round and equally reacting to light. EOMI. No scleral icterus. No conjunctival pallor. Normocephalic, atraumatic. No pharyngeal erythema. No thyromegaly. CARDIOVASCULAR: S1 and S2 present. No murmurs, rubs, or gallops. PULMONARY: Chest is clear to auscultation, no wheezing or crackles. ABDOMEN: Soft, tender diffuse, distended and tympanic, normoactive bowel sounds. No palpable organomegaly. NG tube has been placed. MUSCULOSKELETAL: No joint swelling or deformity. EXTREMITIES: No cyanosis, clubbing, or pedal edema. NEUROLOGICAL: Gross neurological examination did not reveal any focal deficits. SKIN: No rashes. Assessment and Plan Abdominal pain chronic with sigmoid volvulus Sigmoid volvulus status post colonic decompression Abdominal distention ileus vs. bowel obstruction Hx of bowel cancer with prior resection and lysis of adhesions and prolonged hospital stay Hypokalemia due to poor oral intake supplemented with IV potassium and improved levels Hyponatremia hypovolemic Hypomagnesemia Abnormal UA due to dehydration Hx of jaw cancer with chemoradiation and trach/peg in the past Hx of pulmonary embolism Severe protein malnutrition patient will be getting PICC line for nutrition may be a candidate for PEG tube if he is not able to increase his oral intake and meet caloric needs. Iron deficiency anemia hx Hx of SVT Hx of ETOH Hx of nicotine use GI prophylaxis DVT prophylaxis Full Code Plan General surgery consultation Patient is now NPO and scheduled to undergo sigmoid colectomy with possible ostomy formation tomorrow with Dr. Easton. NG tube has been placed for gastric decompression. Continue with PICC line and TPN nutrition Continue pain management with IV dilaudid and IV toradol Continue metoprolol Recommending to hold of on norvasc at this time Repeat blood work, monitor renal function/electrolytes PT/OT consultation. The impression and plan of care has been dictated by Minda Tejada Nurse Practitioner as directed. Dr. Carin MD I have performed a history and physical examination and medical decision making of this patient, discussed the same with the dictator, and agree with the dictators assessment and plan as written, documented as a scribe. Based on total visit time, I have performed more than 50% of this visit. Objective - Vital Signs Vital signs: Vital Signs Temp 97.9 F 01/13/24 13:23 Pulse 65 01/13/24 13:23 Resp 16 01/13/24 13:23 BP 105/70 01/13/24 13:23 Pulse Ox 98 01/13/24 13:23 FiO2 Intake & Output 01/12/24 01/13/24 01/13/24 18:59 06:59 18:59 Output Total 2900 875 100 Balance -2900 -875 -100 Weight 40.823 kg Output: Gastric Drainage 2800 800 Urine 100 75 100 Other: Voiding Method Urinal Urinal # Voids 1 - Labs CBC & Chem 7: 01/12/24 14:15 01/13/24 09:04 Labs: Abnormal Lab Results - Last 24 Hours (Table) 01/12/24 01/12/24 01/13/24 Range/Units 14:15 23:48 05:59 Hgb 10.7 L (13.0-17.0) g/dL Hct 34.5 L (39.6-50.0) % MCV 72.5 L (80.0-97.0) FL MCH 22.5 L (27.0-32.0) pg MCHC 31.0 L (32.0-37.0) g/dL RDW 16.5 H (11.5-14.5) % Immature Gran # 0.07 H (0.00-0.04) X 10*3/uL Neutrophils # 8.04 H (1.80-7.70) X 10*3/uL Lymphocytes # 0.43 L (0.90-5.00) X 10*3/uL Eosinophils # 0 L (0.04-0.35) X 10*3/uL Sodium (137-145) mmol/L BUN (9-20) mg/dL Glucose (74-99) mg/dL POC Glucose (mg/dL) 160 H 144 H (70-110) mg/dL Calcium (8.4-10.2) mg/dL Total Protein (6.3-8.2) g/dL Albumin (3.5-5.0) g/dL 01/13/24 01/13/24 Range/Units 09:04 12:05 Hgb (13.0-17.0) g/dL Hct (39.6-50.0) % MCV (80.0-97.0) FL MCH (27.0-32.0) pg MCHC (32.0-37.0) g/dL RDW (11.5-14.5) % Immature Gran # (0.00-0.04) X 10*3/uL Neutrophils # (1.80-7.70) X 10*3/uL Lymphocytes # (0.90-5.00) X 10*3/uL Eosinophils # (0.04-0.35) X 10*3/uL Sodium 135 L (137-145) mmol/L BUN 24 H (9-20) mg/dL Glucose 127 H (74-99) mg/dL POC Glucose (mg/dL) 162 H (70-110) mg/dL Calcium 7.7 L (8.4-10.2) mg/dL Total Protein 4.2 L (6.3-8.2) g/dL Albumin 2.0 L (3.5-5.0) g/dL Assessment and Plan Time with Patient: Less than 30
[2024-01-13 16:49] LABS: Glucose,Whole Blood 144 mg/dL (70-110)
[2024-01-13] MEDS ORDERED: 1: MVI, ADULT NO.4 WITH VIT K 10 ML, TRACE (CONC-1ML/DOSE) 1 ML in AMINO ACID 5%-D20W+LY IV SCH (20:00)
[2024-01-13] MEDS ORDERED: FAT EMULSION 20% 250 ML IV SCH (20:00)
[2024-01-13 20:10] LABS: Glucose,Whole Blood 142 mg/dL (70-110)
[2024-01-13] MEDS: FAT EMULSION 20% 250 ML IV SCH (21:17)
[2024-01-13] MEDS: 1: MVI, ADULT NO.4 WITH VIT K 10 ML, TRACE (CONC-1ML/DOSE) 1 ML in AMINO ACID 5%-D20W+LY IV SCH (21:17)
[2024-01-14 02:16] LABS: Glucose,Whole Blood 222 mg/dL (70-110)
[2024-01-14 04:38] LABS: Anisocytosis Slight; Basophils % (A) 0 %; Eosinophils % (A) 1 %; HCT 33.9 % (39.0-53.0); HGB 9.9 gm/dL (13.0-17.5); Hypochromasia Marked; Lymphocytes # (A) 0.4 k/uL (1.0-4.8); Lymphocytes % (A) 10 %; MCH 22.7 pg (25.0-35.0); MCHC 29.2 g/dL (31.0-37.0); MCV 77.6 fL (80.0-100.0); Mean Platelet Volume 7.4; Microcytosis Slight; Monocytes # (A) 0.1 k/uL (0-1.0); Monocytes % (A) 3 %; Neutrophils # (A) 3.5 k/uL (1.3-7.7); Neutrophils % (A) 85 %; Platelet Count 334 k/uL (150-450); RBC 4.36 m/uL (4.30-5.90); RDW 17.1 % (11.5-15.5); WBC 4.1 k/uL (3.8-10.6)
[2024-01-14 04:49] LABS: ALT 17 U/L (4-49); AST 14 U/L (17-59); African American GFR (CKD) >90 (>60 ml/min/1.73 sqM); Albumin 1.9 g/dL (3.5-5.0); Albumin/Globulin Ratio 0.8; Alkaline Phosphatase 110 U/L (38-126); Anion Gap 6 mmol/L; Blood Urea Nitrogen 23 mg/dL (9-20); Calcium 7.4 mg/dL (8.4-10.2); Carbon Dioxide 23 mmol/L (22-30); Chloride 105 mmol/L (98-107); Globulin 2.3 g/dL; Glucose 179 mg/dL (74-99); Magnesium 1.8 mg/dL (1.6-2.3); Non-African American GFR(CKD) >90 (>60 ml/min/1.73 sqM); Phosphorus 2.7 mg/dL (2.5-4.5); Potassium 3.7 mmol/L (3.5-5.1); Sodium 134 mmol/L (137-145); Total Bilirubin 0.3 mg/dL (0.2-1.3); Total Protein 4.2 g/dL (6.3-8.2)
[2024-01-14 04:57] LABS: INR 1.1 (<1.2); Prothrombin Time 12.1 sec (10.0-12.5)
[2024-01-14 06:11] LABS: Glucose,Whole Blood 243 mg/dL (70-110)
[2024-01-14] MEDS: INSULIN ASPART (NovoLOG) 100 UNIT/ML VIAL SQ SCH (06:20)
[2024-01-14 11:33] LABS: Glucose,Whole Blood 217 mg/dL (70-110)
--- NOTE | 2024-01-14 12:27 | P.PN ---
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 Patient also has a history of alcohol abuse and is a former smoker. Patient was recently admitted to the hospital from October 07 through November 13 secondary to an ileus and small bowel obstruction. Patient underwent laparotomy with lysis of adhesions for over 2 hours and excision of small bowel tumor x 3 closure of decompressive enterostomy partial omentectomy drainage of abdominal ascites 2 L underwent the surgery on October 16, 2023. Patient had an extensive hospital stay on to have Enterococcus and MRSA in the abdominal wound from the Homero-Dalton drain. He was discharged with IV antibiotics. Patient returns to the hospital secondary to 2-day complaints of abdominal pain and KUB x-ray initially showed dilated bowel loops with air fluid levels partial obstruction versus severe ileus. Follow up abdominal pelvis CT was done revealing persistent dilated fluid-filled distal small bowel and at least proximal colonic loops. Colonic obstruction is suspected cannot exclude ischemia or pneumatosis particularly the right colon. Advise lactic acid correlation advised urgent surgical evaluation. Patient's white blood cell count is normal at 9.2, hemoglobin 12.5, sodium 133, potassium 2.7, BUN 15, creatinine 0.53, magnesium 1.5, alk phos 220. Urinalysis is showing 1+ protein, greater than 182 RBCs, rare bacteria. He was admitted to the hospital for general surgery consultation patient is on IV fluids and receiving IV pain medication. N.p.o. at this time. 01/09/2024 Patient is evaluated today in follow up he is sitting up in the mario continues to report significant abdominal discomfort. Patient is on combination of IV dilaudid and IV toradol. He will be undergoing colonscopy for decompression sigmoid volvulus. Electrolytes have improved potassium 3.9, magnesium 1.9. 01/10/2024 Patient is evaluated today resting up in the chair. He continues to report 10 out of 10 abdominal pain and is alternating between IV Dilaudid and IV Toradol. She has not been able to tolerate much oral intake at this point. Continue currently on a clear liquid diet. He is postoperative day #1 colonoscopy for decompression. Patient at this time continues to deny any surgical intervention this will be follow-up with Dr. Easton on Friday. Potassium 3.6, magnesium 1.7 today. 01/11/2024 Patient is evaluated today resting in bed. He is postoperative day #2 colonscopy for decompression. This patient continues to report 10/10 abdominal pain and is continued on a course of IV dilaudid and IV toradol without improvement in the pain. He continues to report not wanting surgical intervention. He is distended today has been started on gas gtts. Blood work today shows sodium 134. He was continued on D5 normal saline due to hypoglycemia which has resolved with the gtt. 01/12/2024 Patient is evaluated today sitting up in bed. Abdominal xray was completed in follow up today showing ileus vs. small bowel obstruction. NG tube was placed with immediate output of over 500 mls of bilious thick gastric drainage. Patient continues to report 10/10 abdominal pain and continues on course of IV toradol and IV dialudid. Patient has been continued on IV fluids with his blood glucose beginning to decline into the 90s and fluids were changed to D5 1/2 normal saline pending PICC line and enteral nutrition. INR 1.4. Labs today reveal sodium 139, potassium 4.0, BUN 19.1, creatinine 0.8. Magnesium 1.8. Chest xray done to conform NG tube placement. Continues to show upper abdominal distention of bowel correlate for ileus vs. obstruction. No acute cardiopulmonary disease/process. 01/13/2024 Patient is evaluated in follow-up on the medical floor. Patient continues with NG tube in place and has had an output of total 3.6 L of gastric drainage. Patient had a PICC line placed yesterday and continues on TPN nutrition. Patient continues to report 10 out of 10 abdominal discomfort although his abdomen is more soft today with improved bowel sounds. He is continued on alternating IV Dilaudid 1 mg every 3 hours, 50 mg of IV Toradol push every 6 hours. Patient reports his pain is not being touched by this medication regimen. Patient is scheduled to undergo open sigmoid colectomy with possible ostomy tomorrow with Dr. Easton. Lab work today reveals a sodium level of 135, potassium 3.9, BUN of 24, creatinine of 0.67 blood glucose in the 160s, calcium level of 7.7. His LFTs are within normal limits. His albumin is low at 2.0. 01/14/2024 Patient is evaluated today in follow-up on the medical floor. Patient has NG tube in place and has had 850 mL of gastric drainage overnight. Patient is scheduled to undergo sigmoid colectomy and possible ostomy formation today with Dr. Easton. He continues to report 10 out of 10 abdominal pain and is continued on alternating IV Dilaudid and Toradol. Patient has PICC line in place and continues on TPN. Work today reveals a white blood cell count of 4.1, hemoglobin 9.9, sodium 134, BUN of 23, creatinine of 0.64. His blood glucose is up into the 200s. Hemodynamically he is stable. Not had a bowel movement. Review of Systems Constitutional: Denied any fatigue denied any fever. Cardio vascular: denied any chest pain, palpitations Gastrointestinal: denied any nausea, vomiting or diarrhea. Having abdominal pain Pulmonary: Denied any shortness of breath cough Neurologic denied any new focal deficits All inpatient medications were reviewed and appropriate changes in these medications as dictated in the interval history and assessment and plan. PHYSICAL EXAMINATION: GENERAL: The patient is alert and oriented x3, not in any acute distress. Well developed, well nourished. HEENT: Pupils are round and equally reacting to light. EOMI. No scleral icterus. No conjunctival pallor. Normocephalic, atraumatic. No pharyngeal erythema. No thyromegaly. CARDIOVASCULAR: S1 and S2 present. No murmurs, rubs, or gallops. PULMONARY: Chest is clear to auscultation, no wheezing or crackles. ABDOMEN: Soft, tender diffuse, distended and tympanic, normoactive bowel sounds. No palpable organomegaly. NG tube has been placed. MUSCULOSKELETAL: No joint swelling or deformity. EXTREMITIES: No cyanosis, clubbing, or pedal edema. NEUROLOGICAL: Gross neurological examination did not reveal any focal deficits. SKIN: No rashes. Assessment and Plan Abdominal pain chronic with sigmoid volvulus Sigmoid volvulus status post colonic decompression Abdominal distention ileus vs. bowel obstruction Hx of bowel cancer with prior resection and lysis of adhesions and prolonged hospital stay Hypokalemia due to poor oral intake supplemented with IV potassium and improved levels Hyponatremia hypovolemic Hypomagnesemia Abnormal UA due to dehydration Hx of jaw cancer with chemoradiation and trach/peg in the past Hx of pulmonary embolism Severe protein malnutrition patient will be getting PICC line for nutrition may be a candidate for PEG tube if he is not able to increase his oral intake and meet caloric needs. Iron deficiency anemia hx Hx of SVT Hx of ETOH Hx of nicotine use GI prophylaxis DVT prophylaxis Full Code Plan General surgery consultation Patient is now NPO and scheduled to undergo sigmoid colectomy with possible ostomy formation today with Dr. Easton. NG tube has been placed for gastric decompression. Continue with PICC line and TPN nutrition Continue pain management with IV dilaudid and IV toradol Continue metoprolol Recommending to hold of on norvasc at this time Repeat blood work, monitor renal function/electrolytes PT/OT consultation. The impression and plan of care has been dictated by Minda Tejada, Nurse Practitioner as directed. Dr. Carin MD I have performed a history and physical examination and medical decision making of this patient, discussed the same with the dictator, and agree with the dictators assessment and plan as written, documented as a scribe. Based on total visit time, I have performed more than 50% of this visit. Objective - Vital Signs Vital signs: Vital Signs Temp 97.9 F 01/14/24 07:56 Pulse 68 01/14/24 07:56 Resp 17 01/14/24 07:56 BP 116/73 01/14/24 07:56 Pulse Ox 99 01/14/24 07:56 FiO2 Intake & Output 01/13/24 01/14/24 01/14/24 18:59 06:59 18:59 Output Total 1100 125 Balance -1100 -125 Weight 40.823 kg Output: Gastric Drainage 850 Urine 250 125 Other: Voiding Method Urinal Urinal - Labs CBC & Chem 7: 01/14/24 04:10 01/14/24 04:10 Labs: Abnormal Lab Results - Last 24 Hours (Table) 01/13/24 01/13/24 01/14/24 Range/Units 16:48 20:09 02:15 Hgb (13.0-17.5) gm/dL Hct (39.0-53.0) % MCV (80.0-100.0) fL MCH (25.0-35.0) pg MCHC (31.0-37.0) g/dL RDW (11.5-15.5) % Lymphocytes # (1.0-4.8) k/uL Sodium (137-145) mmol/L BUN (9-20) mg/dL Creatinine (0.66-1.25) mg/dL Glucose (74-99) mg/dL POC Glucose (mg/dL) 144 H 142 H 222 H (70-110) mg/dL Calcium (8.4-10.2) mg/dL AST (17-59) U/L Total Protein (6.3-8.2) g/dL Albumin (3.5-5.0) g/dL 01/14/24 01/14/24 01/14/24 Range/Units 04:10 04:10 06:09 Hgb 9.9 L (13.0-17.5) gm/dL Hct 33.9 L (39.0-53.0) % MCV 77.6 L (80.0-100.0) fL MCH 22.7 L (25.0-35.0) pg MCHC 29.2 L (31.0-37.0) g/dL RDW 17.1 H (11.5-15.5) % Lymphocytes # 0.4 L (1.0-4.8) k/uL Sodium 134 L (137-145) mmol/L BUN 23 H (9-20) mg/dL Creatinine 0.64 L (0.66-1.25) mg/dL Glucose 179 H (74-99) mg/dL POC Glucose (mg/dL) 243 H (70-110) mg/dL Calcium 7.4 L (8.4-10.2) mg/dL AST 14 L (17-59) U/L Total Protein 4.2 L (6.3-8.2) g/dL Albumin 1.9 L (3.5-5.0) g/dL 01/14/24 Range/Units 11:31 Hgb (13.0-17.5) gm/dL Hct (39.0-53.0) % MCV (80.0-100.0) fL MCH (25.0-35.0) pg MCHC (31.0-37.0) g/dL RDW (11.5-15.5) % Lymphocytes # (1.0-4.8) k/uL Sodium (137-145) mmol/L BUN (9-20) mg/dL Creatinine (0.66-1.25) mg/dL Glucose (74-99) mg/dL POC Glucose (mg/dL) 217 H (70-110) mg/dL Calcium (8.4-10.2) mg/dL AST (17-59) U/L Total Protein (6.3-8.2) g/dL Albumin (3.5-5.0) g/dL Assessment and Plan Time with Patient: Less than 30
[2024-01-14] MEDS: IV FLUID CONTINUATION 850 ML IV ONE (16:27)
[2024-01-14 16:34] LABS: Glucose,Whole Blood 118 mg/dL (70-110)
[2024-01-14] MEDS: IV FLUID CONTINUATION 1,000 ML IV ONE ×2 (17:15→20:45)
[2024-01-14] MEDS: LACTATED RINGERS 1,000 ML BAG IV STA (17:16)
[2024-01-14] MEDS: METOPROLOL TARTRATE 5 MG/5 ML VIAL IVP PRN (17:18)
[2024-01-14] MEDS: HEPARIN SODIUM,PORCINE 5,000 UNIT/ML 1 ML VIAL SQ STA (17:26)
[2024-01-14] MEDS ORDERED: NEOSTIGMINE 1 MG/ML 10 ML VIAL ONE (17:30)
[2024-01-14] MEDS ORDERED: ceFAZolin 1 GM/50 ML BAG (PMX) ONE (17:30)
[2024-01-14] MEDS ORDERED: MIDAZOLAM 2 MG/2 ML VIAL ONE (17:30)
[2024-01-14] MEDS ORDERED: fentaNYL (PF) 50 MCG/ML 2 ML AMP ONE (17:30)
[2024-01-14] MEDS ORDERED: HYDROmorphone (PF) 1 MG/ML ONE (17:30)
[2024-01-14] MEDS ORDERED: PROPOFOL 10 MG/ML 20 ML VIAL IV ONE (17:30)
[2024-01-14] MEDS ORDERED: GLYCOPYRROLATE 0.2 MG/ML 2 ML VIAL ONE (17:30)
[2024-01-14] MEDS ORDERED: ROCURONIUM 10 MG/ML (5 ML VIAL) IV ONE (17:30)
[2024-01-14] MEDS ORDERED: SUCCINYLCHOLINE CHLORIDE 200 MG/10 ML VIAL IV ONE (17:30)
[2024-01-14] MEDS ORDERED: PHENYLEPHRINE-0.9% NACL SYG 1,000 MCG/10 ML SYRINGE ONE (17:30)
[2024-01-14] MEDS ORDERED: LIDOCAINE 1% INJ 10MG/ML (20 ML MDV) ONE (17:30)
--- NOTE | 2024-01-14 17:37 | P.PN ---
Subjective Progress Note Date: 01/14/24 CHIEF COMPLAINT: Abdominal pain HISTORY OF PRESENT ILLNESS: The patient is a 43-year-old male with complex surgical history including small bowel perforation 4 months ago followed by small bowel obstruction 1 to 2 months prior. Patient had a colonoscopy with findings of intermittent sigmoid volvulus and was decompressed. Patient had wanted to avoid surgery. Symptoms are still persistent and rebound. Nasogastric tube was placed with improvement of abdominal distention. He still reports generalized abdominal pain with decreased passage of flatus ROS: No fevers or chills. No new chest pain. No productive sputum PHYSICAL EXAM: VITAL SIGNS: Reviewed CONSTITUTIONAL: Cachectic male moderate distress due to abdominal pain EYES: Conjuctivae without sclera icterus. Extraocular movements grossly intact. HEAD, EARS, NOSE, THROAT: Moist buccal mucosa. Head is atraumatic, normocephalic. Hears conversational speech. No nasal drainage. RESPIRATORY: Non-labored respirations and equal bilateral excursions. Mediport of the right upper chest wall. CARDIOVASCULAR: Palpable 2+ radial pulses. ABDOMEN: Midline incision intact. Abdominal distention. No peritonitis. Global mild tenderness. MUSCULOSKELETAL: No gross deformity of the lower extremities noted. No clubbing. No cyanosis. SKIN: Good skin turgor. Well perfused. NEUROLOGIC: Cranial nerves II through XII grossly intact. No focal or lateralizing signs. PSYCH: Appropriate affect. Alert and oriented to person, place and time. CLINICAL LABS: Reviewed. WBC normal. ASSESSMENT: 1. Acute on chronic abdominal pain, generalized 2. Sigmoid volvulus, intermittent 3. Underweight, BMI 14.5 PLAN: 1. After multiple extensive discussions, patient has elected for exploratory laparotomy with colectomy, possible ostomy 2. TPN for inadequate protein nutrition with PICC line already placed. 3. Overall patient is elevated risk for complications due to pre-existing underweight, BMI 14.5, multiple comorbidities. Objective - Vital Signs Vital signs: Vital Signs Temp 98.5 F 01/14/24 14:00 Pulse 88 01/14/24 17:28 Resp 16 01/14/24 17:28 BP 125/78 01/14/24 17:28 Pulse Ox 97 01/14/24 16:28 FiO2 Intake & Output 01/13/24 01/14/24 01/14/24 18:59 06:59 18:59 Output Total 1100 125 40 Balance -1100 -125 -40 Weight 40.823 kg Output: Gastric Drainage 850 Urine 250 125 Other 40 Other: Voiding Method Urinal Urinal Urinal - Labs CBC & Chem 7: 01/14/24 04:10 01/14/24 04:10 Labs: Abnormal Lab Results - Last 24 Hours (Table) 01/13/24 01/14/24 01/14/24 Range/Units 20:09 02:15 04:10 Hgb 9.9 L (13.0-17.5) gm/dL Hct 33.9 L (39.0-53.0) % MCV 77.6 L (80.0-100.0) fL MCH 22.7 L (25.0-35.0) pg MCHC 29.2 L (31.0-37.0) g/dL RDW 17.1 H (11.5-15.5) % Lymphocytes # 0.4 L (1.0-4.8) k/uL Sodium (137-145) mmol/L BUN (9-20) mg/dL Creatinine (0.66-1.25) mg/dL Glucose (74-99) mg/dL POC Glucose (mg/dL) 142 H 222 H (70-110) mg/dL Calcium (8.4-10.2) mg/dL AST (17-59) U/L Total Protein (6.3-8.2) g/dL Albumin (3.5-5.0) g/dL 01/14/24 01/14/24 01/14/24 Range/Units 04:10 06:09 11:31 Hgb (13.0-17.5) gm/dL Hct (39.0-53.0) % MCV (80.0-100.0) fL MCH (25.0-35.0) pg MCHC (31.0-37.0) g/dL RDW (11.5-15.5) % Lymphocytes # (1.0-4.8) k/uL Sodium 134 L (137-145) mmol/L BUN 23 H (9-20) mg/dL Creatinine 0.64 L (0.66-1.25) mg/dL Glucose 179 H (74-99) mg/dL POC Glucose (mg/dL) 243 H 217 H (70-110) mg/dL Calcium 7.4 L (8.4-10.2) mg/dL AST 14 L (17-59) U/L Total Protein 4.2 L (6.3-8.2) g/dL Albumin 1.9 L (3.5-5.0) g/dL 01/14/24 Range/Units 16:31 Hgb (13.0-17.5) gm/dL Hct (39.0-53.0) % MCV (80.0-100.0) fL MCH (25.0-35.0) pg MCHC (31.0-37.0) g/dL RDW (11.5-15.5) % Lymphocytes # (1.0-4.8) k/uL Sodium (137-145) mmol/L BUN (9-20) mg/dL Creatinine (0.66-1.25) mg/dL Glucose (74-99) mg/dL POC Glucose (mg/dL) 118 H (70-110) mg/dL Calcium (8.4-10.2) mg/dL AST (17-59) U/L Total Protein (6.3-8.2) g/dL Albumin (3.5-5.0) g/dL
[2024-01-14] MEDS: SODIUM CHLORIDE 0.9% 50 ML with ceFAZolin 1,000 MG IV ONE (18:20)
[2024-01-14] MEDS: LACTATED RINGERS 1,000 ML IV ONE (20:16)
[2024-01-14 20:50] LABS: Glucose,Whole Blood 103 mg/dL (70-110)
--- NOTE | 2024-01-14 21:06 | P.OP ---
Date of Procedure: 01/14/24 Description of Procedure: SURGEON: VANDANA DIAZ MD PREOPERATIVE DIAGNOSIS: 1. Large bowel obstruction due to sigmoid volvulus 2. Acute on chronic abdominal pain 3. Underweight, BMI 14.5 4. Severe protein malnutrition 5. History of mandibular cancer status post chemoradiation 6. History of small bowel perforation 7. History of tracheostomy gastrostomy tube 8. History of MRSA 9. History of pulmonary embolism 10. Hypertensive heart disease 11. Chronic constipation POSTOPERATIVE DIAGNOSIS: 1. Small bowel obstruction due to adhesive band disease, epigastrium 2. Large bowel obstruction due to internal hernia, transverse colon 3. Underweight, BMI 14.5 4. Severe protein malnutrition 5. History of mandibular cancer status post chemoradiation 6. History of small bowel perforation 7. History of tracheostomy gastrostomy tube 8. History of MRSA 9. History of pulmonary embolism 10. Hypertensive heart disease 11. Chronic constipation 12. Severe dehydration 13. Abdominal ascites OPERATION: 1. Open exploratory laparotomy with extensive lysis of adhesions 2. Reduction and closure of internal hernia, epigastrium, ligaments of Treitz 3. Drainage of abdominal ascites 300 cc 4. Application of 20 cm incisional wound VAC PREVENA Anesthesia: GETA Estimated Blood Loss (ml): 50 Pathology: 1. Aerobic anaerobic cultures peritoneal fluid, #1 2. Aerobic and anaerobic cultures peritoneal fluid, #2 3. Adhesive band disease, #1 4. The band disease, #2 Condition: stable Disposition: floor Complications: None Operative Findings: 1. Turbid peritoneal fluid, over 300 cc aspirated from abdomen 2. Adhesive band disease with internal hernia at epigastrium, ligament of Treitz and bowel in mid transverse colon 3. Highly redundant cecum and mid transverse colon 4. Highly redundant sigmoid colon 5. Chronic thickened small bowel wall consistent with chronic bowel obstruction involving epigastrium, jejunum, to mid ileum 6. Descending colon adherent to the retroperitoneum 7. Interloop severe adhesions creating mechanical bowel obstruction involving mid ileum, lysed 8. Complete reduction and decompression of air and enteric content from the ligament of Treitz to the sigmoid colon resulting in bowel movement 9. Patient's mother contacted at [phone] with update of patient's care INDICATIONS: The patient is a 43-year-old male who presents with acute on chronic abdominal pain as well as recurrent small and large bowel obstruction. Per request of the patient, conservative measures including prolonged n.p.o. status, nasogastric tube decompression and colonic decompression for suspected sigmoid volvulus were performed without much improvement of symptoms. Surgical intervention with exploratory laparotomy, colectomy, ostomy creation was described. Benefits and risks of the procedures were discussed. Informed consent was obtained. DESCRIPTION: The patient was brought to the operating room. An epidural was avoided due to patient's severe protein malnutrition and cachectic state. After general induction, a Sandoval catheter was placed with resultant very dark concentrated urine consistent with dehydration. The abdomen was prepped and draped in standard sterile fashion. Ioban draping was also placed. Prior to incision, a timeout protocol was confirmed with surgical team regarding patient's name including procedures to be performed. Preoperative medications were confirmed. A #10 blade was used to carefully enter previous midline eschar due to the patient's very thin subcutaneous tissue. The abdomen was entered from the epigastrium without enterotomy or colotomy. The abdomen was open down to the pubis. The small bowel and large bowel was grossly dilated. Ascites of over 300 mL was drained from the abdomen with a aerobic anaerobic cultures obtained of clear fluid for number one of the epigastrium and turbid fluid for #2 from within the pelvis. Severe small bowel dilation over 5-6 cm involving jejunum/proximal ileum was found as well as severe dilation of the cecum and mid transverse colon. Along the epigastrium and a tight adhesive band involving the mid transverse colon omental and towards the retroperitoneum was found compressing the colon creating a functional large bowel obstruction. Separately, additional adhesive band involving the small bowel along with the epigastrium were released. Adhesive bands were sent for pathological analysis, #1 for the small bowel, #2 for the mid transverse colon. Upon careful inspection, an internal hernia at the ligament of Treitz was found involving the colon including small bowel. Severe severe interloop adhesions of the right upper quadrant creating functional obstruction was lysed after milking the enteric content and air from the ligament of Treitz towards the ileocecal valve. The cecum, ascending, transverse, hepatic flexure, descending, sigmoid colon were carefully inspected where additional adhesions were lysed at the left upper quadrant, splenic flexure without colotomy or enterotomy. The distal transverse colon to the sigmoid colon was completely decompressed from chronic and persistent large bowel obstruction. The small bowel was milked from the ligament of Treitz distally to the sigmoid colon where moderate release of stool and flatus occurred from the rectum. The internal hernia at the ligament of Treitz was oversewn using 2-0 V lock, absorbable. Inspection of the transverse mesocolon demonstrated defects large enough to create an internal hernia which were divided and closed using 3-0 Vicryl. Blood loss was checked with electro-Bovie cautery including LigaSure. The abdomen was dried of ascites using sponges. Minimal blood loss occurred throughout the case. All sponge counts were verified as correct. The abdomen was closed using double stranded 0 PDS. The prior scar was excised of the midline and skin flaps were elevated for closure of the skin of the abdomen. The end of the abdomen was closed using 0 Vicryl interrupted along the subcutaneous tissue and running subcuticular 3-0 Monocryl. The skin was cleansed using hydrogen peroxide. An 20 cm incisional wound VAC Natalie dressing was placed. At the end of the procedure, needle, sponge, and instrument count had been verified correct by the neurosurgical nurse. The patient was sent to the postanesthesia care unit in stable condition. The patient's mother was called over the telephone with intraoperative findings described. The patient's family were very pleased with the level of care. Intraoperative images were obtained from the patient's personal records with postoperative recovery was described.
[2024-01-14] MEDS ORDERED: NALOXONE 0.4 MG/ML 1 ML VIAL IV PRN (21:11)
[2024-01-14] MEDS: KETOROLAC 15 MG/ML 1 ML VIAL IVP SCH (21:12)
[2024-01-14] MEDS: SODIUM CHLORIDE 0.9% 1,000 ML IV ONE (21:56)
[2024-01-14] MEDS: HYDROmorphone PCA 10 MG/50 ML BAG IV SCH (23:11)
[2024-01-15 06:15] LABS: Glucose,Whole Blood 217 mg/dL (70-110)
[2024-01-15 07:45] LABS: ALT 14 U/L (4-49); AST 16 U/L (17-59); African American GFR (CKD) >90 (>60 ml/min/1.73 sqM); Albumin 1.6 g/dL (3.5-5.0); Albumin/Globulin Ratio 0.8; Alkaline Phosphatase 83 U/L (38-126); Anion Gap 3 mmol/L; Blood Urea Nitrogen 18 mg/dL (9-20); Calcium 6.9 mg/dL (8.4-10.2); Carbon Dioxide 22 mmol/L (22-30); Chloride 109 mmol/L (98-107); Glucose 214 mg/dL (74-99); Magnesium 1.4 mg/dL (1.6-2.3); Non-African American GFR(CKD) >90 (>60 ml/min/1.73 sqM); Phosphorus 2.2 mg/dL (2.5-4.5); Potassium 3.6 mmol/L (3.5-5.1); Sodium 134 mmol/L (137-145); Total Bilirubin 0.3 mg/dL (0.2-1.3); Total Protein 3.6 g/dL (6.3-8.2)
[2024-01-15 11:20] LABS: Basophils # (A) 0 X 10*3/uL (0.00-0.10); Basophils % (A) 0 %; Crenated RBC 2+; Eosinophils # (A) 0 X 10*3/uL (0.04-0.35); Eosinophils % (A) 0 %; HCT 28.6 % (39.6-50.0); HGB 8.8 g/dL (13.0-17.0); Lymphocytes # (A) 0.37 X 10*3/uL (0.90-5.00); Lymphocytes % (A) 4.6 %; MCHC 30.8 g/dL (32.0-37.0); MCV 71.5 FL (80.0-97.0); Microcytosis (M) 2+; Monocytes # (A) 0.22 X 10*3/uL (0.20-1.00); Monocytes % (A) 2.7 %; NRBC Per 100 WBC 0 X 10*3/uL (0.00-0.01); Neutrophils # (A) 7.47 X 10*3/uL (1.80-7.70); Platelet Count 309 X 10*3/uL (140-440); RDW 16.6 % (11.5-14.5); WBC 8.12 X 10*3/uL (4.50-10.00)
[2024-01-15 11:24] LABS: Glucose,Whole Blood 253 mg/dL (70-110)
--- NOTE | 2024-01-15 11:41 | P.PN ---
Subjective Progress Note Date: 01/15/24 CHIEF COMPLAINT: Abdominal pain HISTORY OF PRESENT ILLNESS: Patient is postop day #1 status post open exp loratory laparotomy with extensive lysis of adhesions and reduction and closure of internal hernia and drainage of abdominal ascites. Patient reports that his pain is better. Pain is currently controlled. Denies any nausea. Has NG tube which is currently clamped. He is tolerating clear liquids. No bowel activity. Afebrile. Heart rate 105. WBC 8.12 Hgb 8.8 platelets 309 sodium 134 potassium 3.6 creatinine 0.50 magnesium 1.4 albumin 1.6 PHYSICAL EXAM: VITAL SIGNS: Reviewed GENERAL: Well-developed in no acute distress. HEENT: No sclera icterus. Extraocular movements grossly intact. Moist buccal mucosa. Head is atraumatic, normocephalic. Hears conversational speech. No nasal drai nage. NECK: Supple without lymphadenopathy. CHEST: Non-labored respirations and equal bilateral excursions. CARDIOVASCULAR: Palpable 2+ radial pulses. ABDOMEN: Mildly distended. Mild tenderness with palpation. Prevena wound VAC intact MUSCULOSKELETAL: No clubbing or cyanosis. NEUROLOGIC: No focal or lateralizing signs. Cranial nerves II through XII grossly intact. PSYCH: Appropriate affect. Alert and oriented to person, place and time. SKIN: Well perfused. Good skin turgor. ASSESSMENT: 1. Small bowel obstruction due to adhesive band disease, epigastrium 2. Large bowel obstruction due to internal hernia, transverse colon 3. Underweight, BMI 14.5 4. Severe protein malnutrition 5. History of mandibular cancer status post chemoradiation 6. History of small bowel perforation 7. History of tracheostomy gastrostomy tube 8. History of MRSA 9. History of pulmonary embolism 10. Hypertensive heart disease 11. Chronic constipation 12. Severe dehydration 13. Abdominal ascites PLAN: -Continue NG tube and keep clamped for now -Continue clear liquid diet -Continue pain management -Replace magnesium -Continue TPN for now until diet is able to be advanced -Encourage patient to use incentive spirometer -Encourage patient to increase activity level -DVT prophylaxis subcu heparin and GI prophylaxis Protonix Physician Utility Tractor Operator note has been reviewed by physician. Signing provider agrees with the documented findings, assessment, and plan of care. Please see additional documentation below: Patient had extensive surgery with extensive lysis of adhesions. Findings of internal hernia and multiple points of adhesions x 4 causing simultaneous large bowel obstruction and small bowel obstruction, now resolved. NG tube continued however clamped while clear liquid diet initiated. Patient has severe protein malnutrition and underweight, BMI 14.5. Recommend continue TPN and advance diet as tolerated. 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 Patient and patient's family made aware that I will be unavailable from January 15 to January 24. Surgical coverage being provided by covering surgeon. Objective - Vital Signs Vital signs: Vital Signs Temp 98.7 F 01/15/24 08:00 Pulse 105 H 01/15/24 08:00 Resp 17 01/15/24 08:00 BP 124/75 01/15/24 08:00 Pulse Ox 96 01/15/24 08:00 FiO2 Intake & Output 01/14/24 01/15/24 01/15/24 18:59 06:59 18:59 Intake Total 950 1100 Output Total 40 350 Balance 910 750 Intake: IV 950 1100 Output: Urine 300 Estimated Blood Loss 50 Other 40 Other: Voiding Method Urinal Indwelling Catheter - Labs CBC & Chem 7: 01/15/24 06:58 01/15/24 06:58 Labs: Abnormal Lab Results - Last 24 Hours (Table) 01/14/24 01/15/24 01/15/24 Range/Units 16:31 06:13 06:58 RBC (4.40-5.60) X 10*6/uL Hgb (13.0-17.0) g/dL Hct (39.6-50.0) % MCV (80.0-97.0) FL MCH (27.0-32.0) pg MCHC (32.0-37.0) g/dL RDW (11.5-14.5) % Immature Gran # (0.00-0.04) X 10*3/uL Lymphocytes # (0.90-5.00) X 10*3/uL Eosinophils # (0.04-0.35) X 10*3/uL Microcytosis (manual) Crenated Cell Sodium 134 L (137-145) mmol/L Chloride 109 H (98-107) mmol/L Creatinine 0.50 L (0.66-1.25) mg/dL Glucose 214 H (74-99) mg/dL POC Glucose (mg/dL) 118 H 217 H (70-110) mg/dL Calcium 6.9 L (8.4-10.2) mg/dL Phosphorus 2.2 L (2.5-4.5) mg/dL Magnesium 1.4 L (1.6-2.3) mg/dL AST 16 L (17-59) U/L Total Protein 3.6 L (6.3-8.2) g/dL Albumin 1.6 L (3.5-5.0) g/dL 01/15/24 01/15/24 Range/Units 06:58 11:23 RBC 4.00 L (4.40-5.60) X 10*6/uL Hgb 8.8 L (13.0-17.0) g/dL Hct 28.6 L (39.6-50.0) % MCV 71.5 L (80.0-97.0) FL MCH 22.0 L (27.0-32.0) pg MCHC 30.8 L (32.0-37.0) g/dL RDW 16.6 H (11.5-14.5) % Immature Gran # 0.06 H (0.00-0.04) X 10*3/uL Lymphocytes # 0.37 L (0.90-5.00) X 10*3/uL Eosinophils # 0 L (0.04-0.35) X 10*3/uL Microcytosis (manual) 2+ A Crenated Cell 2+ A Sodium (137-145) mmol/L Chloride (98-107) mmol/L Creatinine (0.66-1.25) mg/dL Glucose (74-99) mg/dL POC Glucose (mg/dL) 253 H (70-110) mg/dL Calcium (8.4-10.2) mg/dL Phosphorus (2.5-4.5) mg/dL Magnesium (1.6-2.3) mg/dL AST (17-59) U/L Total Protein (6.3-8.2) g/dL Albumin (3.5-5.0) g/dL Microbiology - Last 24 Hours (Table) 01/14/24 19:30 Gram Stain - Preliminary Other - Other 01/14/24 19:30 Gram Stain - Preliminary Other - Other
[2024-01-15] MEDS: MAGNESIUM SULFATE-D5W PMX 1 GM in DEXTROSE/WATER 1 100ML.BAG IVPB SCH (13:13)
[2024-01-15 16:35] LABS: Glucose,Whole Blood 237 mg/dL (70-110)
[2024-01-15 20:54] LABS: Glucose,Whole Blood 220 mg/dL (70-110)
[2024-01-16 02:31] LABS: Glucose,Whole Blood 203 mg/dL (70-110)
[2024-01-16 05:53] LABS: Glucose,Whole Blood 224 mg/dL (70-110)
[2024-01-16 08:27] LABS: African American GFR (CKD) >90 (>60 ml/min/1.73 sqM); Anion Gap 2 mmol/L; Blood Urea Nitrogen 14 mg/dL (9-20); Calcium 6.9 mg/dL (8.4-10.2); Carbon Dioxide 20 mmol/L (22-30); Chloride 106 mmol/L (98-107); Glucose 213 mg/dL (74-99); Magnesium 1.9 mg/dL (1.6-2.3); Non-African American GFR(CKD) >90 (>60 ml/min/1.73 sqM); Phosphorus 2.2 mg/dL (2.5-4.5); Potassium 4.2 mmol/L (3.5-5.1); Sodium 128 mmol/L (137-145)
[2024-01-16 10:48] LABS: HCT 26.7 % (39.6-50.0); HGB 8.4 g/dL (13.0-17.0); MCH 22.5 pg (27.0-32.0); MCHC 31.5 g/dL (32.0-37.0); MCV 71.6 FL (80.0-97.0); Mean Platelet Volume 9.5 FL (9.5-12.2); NRBC Per 100 WBC 0 X 10*3/uL (0.00-0.01); Platelet Count 288 X 10*3/uL (140-440); RBC 3.73 X 10*6/uL (4.40-5.60); RDW 16.6 % (11.5-14.5); WBC 9.97 X 10*3/uL (4.50-10.00)
[2024-01-16 11:48] LABS: Glucose,Whole Blood 211 mg/dL (70-110)
[2024-01-16] MEDS: SODIUM PHOSPHATE 15 MMOL in DEXTROSE 5% IN WATER 250 ML IVPB ONE (12:18)
--- NOTE | 2024-01-16 15:50 | P.PN ---
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 Patient also has a history of alcohol abuse and is a former smoker. Patient was recently admitted to the hospital from October 07 through November 13 secondary to an ileus and small bowel obstruction. Patient underwent laparotomy with lysis of adhesions for over 2 hours and excision of small bowel tumor x 3 closure of decompressive enterostomy partial omentectomy drainage of abdominal ascites 2 L underwent the surgery on October 16, 2023. Patient had an extensive hospital stay on to have Enterococcus and MRSA in the abdominal wound from the Homero-Dalton drain. He was discharged with IV antibiotics. Patient returns to the hospital secondary to 2-day complaints of abdominal pain and KUB x-ray initially showed dilated bowel loops with air fluid levels partial obstruction versus severe ileus. Follow up abdominal pelvis CT was done revealing persistent dilated fluid-filled distal small bowel and at least proximal colonic loops. Colonic obstruction is suspected cannot exclude ischemia or pneumatosis particularly the right colon. Advise lactic acid correlation advised urgent surgical evaluation. Patient's white blood cell count is normal at 9.2, hemoglobin 12.5, sodium 133, potassium 2.7, BUN 15, creatinine 0.53, magnesium 1.5, alk phos 220. Urinalysis is showing 1+ protein, greater than 182 RBCs, rare bacteria. He was admitted to the hospital for general surgery consultation patient is on IV fluids and receiving IV pain medication. N.p.o. at this time. 01/09/2024 Patient is evaluated today in follow up he is sitting up in the mario continues to report significant abdominal discomfort. Patient is on combination of IV dilaudid and IV toradol. He will be undergoing colonscopy for decompression sigmoid volvulus. Electrolytes have improved potassium 3.9, magnesium 1.9. 01/10/2024 Patient is evaluated today resting up in the chair. He continues to report 10 out of 10 abdominal pain and is alternating between IV Dilaudid and IV Toradol. She has not been able to tolerate much oral intake at this point. Continue currently on a clear liquid diet. He is postoperative day #1 colonoscopy for decompression. Patient at this time continues to deny any surgical intervention this will be follow-up with Dr. Easton on Friday. Potassium 3.6, magnesium 1.7 today. 01/11/2024 Patient is evaluated today resting in bed. He is postoperative day #2 colonscopy for decompression. This patient continues to report 10/10 abdominal pain and is continued on a course of IV dilaudid and IV toradol without improvement in the pain. He continues to report not wanting surgical intervention. He is distended today has been started on gas gtts. Blood work today shows sodium 134. He was continued on D5 normal saline due to hypoglycemia which has resolved with the gtt. 01/12/2024 Patient is evaluated today sitting up in bed. Abdominal xray was completed in follow up today showing ileus vs. small bowel obstruction. NG tube was placed with immediate output of over 500 mls of bilious thick gastric drainage. Patient continues to report 10/10 abdominal pain and continues on course of IV toradol and IV dialudid. Patient has been continued on IV fluids with his blood glucose beginning to decline into the 90s and fluids were changed to D5 1/2 normal saline pending PICC line and enteral nutrition. INR 1.4. Labs today reveal sodium 139, potassium 4.0, BUN 19.1, creatinine 0.8. Magnesium 1.8. Chest xray done to conform NG tube placement. Continues to show upper abdominal distention of bowel correlate for ileus vs. obstruction. No acute cardiopulmonary disease/process. 01/13/2024 Patient is evaluated in follow-up on the medical floor. Patient continues with NG tube in place and has had an output of total 3.6 L of gastric drainage. Patient had a PICC line placed yesterday and continues on TPN nutrition. Patient continues to report 10 out of 10 abdominal discomfort although his abdomen is more soft today with improved bowel sounds. He is continued on alternating IV Dilaudid 1 mg every 3 hours, 50 mg of IV Toradol push every 6 hours. Patient reports his pain is not being touched by this medication regimen. Patient is scheduled to undergo open sigmoid colectomy with possible ostomy tomorrow with Dr. Easton. Lab work today reveals a sodium level of 135, potassium 3.9, BUN of 24, creatinine of 0.67 blood glucose in the 160s, calcium level of 7.7. His LFTs are within normal limits. His albumin is low at 2.0. 01/14/2024 Patient is evaluated today in follow-up on the medical floor. Patient has NG tube in place and has had 850 mL of gastric drainage overnight. Patient is scheduled to undergo sigmoid colectomy and possible ostomy formation today with Dr. Easton. He continues to report 10 out of 10 abdominal pain and is continued on alternating IV Dilaudid and Toradol. Patient has PICC line in place and continues on TPN. Work today reveals a white blood cell count of 4.1, hemoglobin 9.9, sodium 134, BUN of 23, creatinine of 0.64. His blood glucose is up into the 200s. Hemodynamically he is stable. Not had a bowel movement. 01/15/2024 Patient is s/p open expiratory laparotomy with extensive lysis of additions and reduction and closure of internal hernia and drainage of abdominal ascites. Postoperative day 1 Patient is currently lying in the bed. NG tube in place. Denies any complaints or nausea. Patient was started on clear liquid diet. Patient has been afebrile. Patient is on room air. No complaints of chest pain or shortness of breath. Otherwise patient is being continued on TPN. Laboratory data showed WBC 8.1 hemoglobin of 8.8 and platelets 309 sodium 134 potassium 3.6 chloride 109 bicarb is 22 BUN 18 and creatinine 0.5 and blood sugar 214 calcium 6.9 phosphorus 2.2 magnesium 1.4 and a albumin 1.6. Review of Systems Constitutional: Denied any fatigue denied any fever. Cardio vascular: denied any chest pain, palpitations Gastrointestinal: denied any nausea, vomiting or diarrhea. Having abdominal pain Pulmonary: Denied any shortness of breath cough Neurologic denied any new focal deficits All inpatient medications were reviewed and appropriate changes in these m edications as dictated in the interval history and assessment and plan. PHYSICAL EXAMINATION: GENERAL: The patient is alert and oriented x3, not in any acute distress. Well developed, well nourished. HEENT: Pupils are round and equally reacting to light. EOMI. No scleral icterus. No conjunctival pallor. Normocephalic, atraumatic. No pharyngeal erythema. No thyromegaly. CARDIOVASCULAR: S1 and S2 present. No murmurs, rubs, or gallops. PULMONARY: Chest is clear to auscultation, no wheezing or crackles. ABDOMEN: Soft, mild diffuse tenderness. Bowel sounds present.. No palpable organomegaly. NG tube has been placed. MUSCULOSKELETAL: No joint swelling or deformity. EXTREMITIES: No cyanosis, clubbing, or pedal edema. NEUROLOGICAL: Gross neurological examination did not reveal any focal deficits. SKIN: No rashes. Assessment and Plan Acute small bowel obstruction status post expiratory laparotomy and lysis of additions. Postoperative day 1 Abdominal pain chronic with sigmoid volvulus Sigmoid volvulus status post colonic decompression Abdominal distention due to. bowel obstruction improving. Hx of bowel cancer with prior resection and lysis of adhesions and prolonged hospital stay Hypokalemia due to poor oral intake supplemented with IV potassium and improved levels Hyponatremia hypovolemic Hypomagnesemia Abnormal UA due to dehydration Hx of jaw cancer with chemoradiation and trach/peg in the past Hx of pulmonary embolism Severe protein malnutrition patient will be getting PICC line for nutrition may be a candidate for PEG tube if he is not able to increase his oral intake and meet caloric needs. Iron deficiency anemia hx Hx of SVT Hx of ETOH Hx of nicotine use GI prophylaxis. On PPI. DVT prophylaxis with heparin subcu Full Code Plan Patient is status post expiratory laparotomy, lysis of additions and reduction of internal hernia and drainage of ascites. General surgery is on board. NG tube has been placed for gastric decompression. Continue with PICC line and TPN nutrition Patient was started on clear liquid diet. Continue pain management with IV dilaudid and IV toradol Continue metoprolol Recommending to hold of on norvasc at this time Repeat blood work, monitor renal function/electrolytes Continue with IV hydration and monitor sodium level. Currently on D5 half- normal saline. PT/OT consultation. Prognosis guarded due to multiple medical problems and comorbid conditions.. Objective - Vital Signs Vital signs: Vital Signs Temp 98.3 F 01/15/24 14:00 Pulse 88 01/15/24 14:00 Resp 17 01/15/24 14:00 BP 116/70 01/15/24 14:00 Pulse Ox 97 01/15/24 14:00 FiO2 Intake & Output 01/14/24 01/15/24 01/15/24 18:59 06:59 18:59 Intake Total 950 1100 550 Output Total 40 350 400 Balance 910 750 150 Intake: IV 950 1100 Oral 550 Output: Urine 300 400 Estimated Blood Loss 50 Other 40 Other: Voiding Method Urinal Indwelling Catheter - Labs CBC & Chem 7: 01/16/24 07:39 01/16/24 07:39 Labs: Abnormal Lab Results - Last 24 Hours (Table) 01/14/24 01/15/24 01/15/24 Range/Units 16:31 06:13 06:58 RBC (4.40-5.60) X 10*6/uL Hgb (13.0-17.0) g/dL Hct (39.6-50.0) % MCV (80.0-97.0) FL MCH (27.0-32.0) pg MCHC (32.0-37.0) g/dL RDW (11.5-14.5) % Immature Gran # (0.00-0.04) X 10*3/uL Lymphocytes # (0.90-5.00) X 10*3/uL Eosinophils # (0.04-0.35) X 10*3/uL Microcytosis (manual) Crenated Cell Sodium 134 L (137-145) mmol/L Chloride 109 H (98-107) mmol/L Creatinine 0.50 L (0.66-1.25) mg/dL Glucose 214 H (74-99) mg/dL POC Glucose (mg/dL) 118 H 217 H (70-110) mg/dL Calcium 6.9 L (8.4-10.2) mg/dL Phosphorus 2.2 L (2.5-4.5) mg/dL Magnesium 1.4 L (1.6-2.3) mg/dL AST 16 L (17-59) U/L Total Protein 3.6 L (6.3-8.2) g/dL Albumin 1.6 L (3.5-5.0) g/dL 01/15/24 01/15/24 Range/Units 06:58 11:23 RBC 4.00 L (4.40-5.60) X 10*6/uL Hgb 8.8 L (13.0-17.0) g/dL Hct 28.6 L (39.6-50.0) % MCV 71.5 L (80.0-97.0) FL MCH 22.0 L (27.0-32.0) pg MCHC 30.8 L (32.0-37.0) g/dL RDW 16.6 H (11.5-14.5) % Immature Gran # 0.06 H (0.00-0.04) X 10*3/uL Lymphocytes # 0.37 L (0.90-5.00) X 10*3/uL Eosinophils # 0 L (0.04-0.35) X 10*3/uL Microcytosis (manual) 2+ A Crenated Cell 2+ A Sodium (137-145) mmol/L Chloride (98-107) mmol/L Creatinine (0.66-1.25) mg/dL Glucose (74-99) mg/dL POC Glucose (mg/dL) 253 H (70-110) mg/dL Calcium (8.4-10.2) mg/dL Phosphorus (2.5-4.5) mg/dL Magnesium (1.6-2.3) mg/dL AST (17-59) U/L Total Protein (6.3-8.2) g/dL Albumin (3.5-5.0) g/dL Microbiology - Last 24 Hours (Table) 01/14/24 19:30 Gram Stain - Preliminary Other - Other 01/14/24 19:30 Gram Stain - Preliminary Other - Other
--- NOTE | 2024-01-16 16:57 | P.PN ---
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 Patient also has a history of alcohol abuse and is a former smoker. Patient was recently admitted to the hospital from October 07 through November 13 secondary to an ileus and small bowel obstruction. Patient underwent laparotomy with lysis of adhesions for over 2 hours and excision of small bowel tumor x 3 closure of decompressive enterostomy partial omentectomy drainage of abdominal ascites 2 L underwent the surgery on October 16, 2023. Patient had an extensive hospital stay on to have Enterococcus and MRSA in the abdominal wound from the Homero-Dalton drain. He was discharged with IV antibiotics. Patient returns to the hospital secondary to 2-day complaints of abdominal pain and KUB x-ray initially showed dilated bowel loops with air fluid levels partial obstruction versus severe ileus. Follow up abdominal pelvis CT was done revealing persistent dilated fluid-filled distal small bowel and at least proximal colonic loops. Colonic obstruction is suspected cannot exclude ischemia or pneumatosis particularly the right colon. Advise lactic acid correlation advised urgent surgical evaluation. Patient's white blood cell count is normal at 9.2, hemoglo bin 12.5, sodium 133, potassium 2.7, BUN 15, creatinine 0.53, magnesium 1.5, alk phos 220. Urinalysis is showing 1+ protein, greater than 182 RBCs, rare bacteria. He was admitted to the hospital for general surgery consultation patient is on IV fluids and receiving IV pain medication. Objective - Vital Signs Vital signs: Vital Signs Temp 98.3 F 01/16/24 07:15 Pulse 86 01/16/24 07:15 Resp 18 01/16/24 07:15 BP 131/84 01/16/24 07:15 Pulse Ox 98 01/16/24 07:15 FiO2 Intake & Output 01/15/24 01/16/24 01/16/24 18:59 06:59 18:59 Intake Total 550 Output Total 400 300 Balance 150 -300 Intake: Oral 550 Output: Urine 400 300 Uretheral (Sandoval) 300 Other: Voiding Method Indwelling Catheter Indwelling Catheter - Exam GENERAL: The patient is alert and oriented x3, not in any acute distress. Well developed, well nourished. HEENT: Pupils are round and equally reacting to light. EOMI. No scleral icterus. No conjunctival pallor. Normocephalic, atraumatic. No pharyngeal erythema. No thyromegaly. CARDIOVASCULAR: S1 and S2 present. No murmurs, rubs, or gallops. PULMONARY: Chest is clear to auscultation, no wheezing or crackles. ABDOMEN: Soft, mild diffuse tenderness. Bowel sounds present.. No palpable organomegaly. NG tube has been placed. MUSCULOSKELETAL: No joint swelling or deformity. EXTREMITIES: No cyanosis, clubbing, or pedal edema. NEUROLOGICAL: Gross neurological examination did not reveal any focal deficits. SKIN: No rashes. - Labs CBC & Chem 7: 01/16/24 07:39 01/16/24 07:39 Labs: Abnormal Lab Results - Last 24 Hours (Table) 01/15/24 01/15/24 01/15/24 Range/Units 06:58 11:23 16:34 RBC 4.00 L (4.40-5.60) X 10*6/uL Hgb 8.8 L (13.0-17.0) g/dL Hct 28.6 L (39.6-50.0) % MCV 71.5 L (80.0-97.0) FL MCH 22.0 L (27.0-32.0) pg MCHC 30.8 L (32.0-37.0) g/dL RDW 16.6 H (11.5-14.5) % Immature Gran # 0.06 H (0.00-0.04) X 10*3/uL Lymphocytes # 0.37 L (0.90-5.00) X 10*3/uL Eosinophils # 0 L (0.04-0.35) X 10*3/uL Microcytosis (manual) 2+ A Crenated Cell 2+ A Sodium (137-145) mmol/L Carbon Dioxide (22-30) mmol/L Creatinine (0.66-1.25) mg/dL Glucose (74-99) mg/dL POC Glucose (mg/dL) 253 H 237 H (70-110) mg/dL Calcium (8.4-10.2) mg/dL Phosphorus (2.5-4.5) mg/dL 01/15/24 01/16/24 01/16/24 Range/Units 20:53 02:30 05:52 RBC (4.40-5.60) X 10*6/uL Hgb (13.0-17.0) g/dL Hct (39.6-50.0) % MCV (80.0-97.0) FL MCH (27.0-32.0) pg MCHC (32.0-37.0) g/dL RDW (11.5-14.5) % Immature Gran # (0.00-0.04) X 10*3/uL Lymphocytes # (0.90-5.00) X 10*3/uL Eosinophils # (0.04-0.35) X 10*3/uL Microcytosis (manual) Crenated Cell Sodium (137-145) mmol/L Carbon Dioxide (22-30) mmol/L Creatinine (0.66-1.25) mg/dL Glucose (74-99) mg/dL POC Glucose (mg/dL) 220 H 203 H 224 H (70-110) mg/dL Calcium (8.4-10.2) mg/dL Phosphorus (2.5-4.5) mg/dL 01/16/24 01/16/24 Range/Units 07:39 07:39 RBC 3.73 L (4.40-5.60) X 10*6/uL Hgb 8.4 L (13.0-17.0) g/dL Hct 26.7 L (39.6-50.0) % MCV 71.6 L (80.0-97.0) FL MCH 22.5 L (27.0-32.0) pg MCHC 31.5 L (32.0-37.0) g/dL RDW 16.6 H (11.5-14.5) % Immature Gran # (0.00-0.04) X 10*3/uL Lymphocytes # (0.90-5.00) X 10*3/uL Eosinophils # (0.04-0.35) X 10*3/uL Microcytosis (manual) Crenated Cell Sodium 128 L (137-145) mmol/L Carbon Dioxide 20 L (22-30) mmol/L Creatinine 0.47 L (0.66-1.25) mg/dL Glucose 213 H (74-99) mg/dL POC Glucose (mg/dL) (70-110) mg/dL Calcium 6.9 L (8.4-10.2) mg/dL Phosphorus 2.2 L (2.5-4.5) mg/dL Microbiology - Last 24 Hours (Table) 01/14/24 19:30 Gram Stain - Preliminary Other - Other Wound Culture - Preliminary 01/14/24 19:30 Gram Stain - Preliminary Other - Other Wound Culture - Preliminary Assessment and Plan Assessment: Acute small bowel obstruction status post expiratory laparotomy and lysis of additions. Postoperative day 1 Abdominal pain chronic with sigmoid volvulus Sigmoid volvulus status post colonic decompression Abdominal distention due to. bowel obstruction improving. Hx of bowel cancer with prior resection and lysis of adhesions and prolonged hospital stay Hypokalemia due to poor oral intake supplemented with IV potassium and improved levels Hyponatremia hypovolemic Hypomagnesemia Abnormal UA due to dehydration Hx of jaw cancer with chemoradiation and trach/peg in the past Hx of pulmonary embolism Severe protein malnutrition patient will be getting PICC line for nutrition may be a candidate for PEG tube if he is not able to increase his oral intake and meet caloric needs. Iron deficiency anemia hx Hx of SVT Hx of ETOH Hx of nicotine use GI prophylaxis. On PPI. DVT prophylaxis with heparin subcu Full Code Plan Patient is status post expiratory laparotomy, lysis of additions and reduction of internal hernia and drainage of ascites. General surgery is on board. NG tube has been placed for gastric decompression. Continue with PICC line and TPN nutrition Patient was started on clear liquid diet. Continue pain management with IV dilaudid and IV toradol Continue metoprolol Recommending to hold of on norvasc at this time Repeat blood work, monitor renal function/electrolytes Continue with IV hydration and monitor sodium level. Currently on D5 half-nor mal saline. PT/OT consultation. Prognosis guarded due to multiple medical problems and comorbid conditions..
[2024-01-16 17:09] LABS: Glucose,Whole Blood 197 mg/dL (70-110)
[2024-01-16] MEDS: SODIUM CHLORIDE 0.9% 1,000 ML IV SCH (18:29)
--- NOTE | 2024-01-16 19:13 | P.PN ---
Subjective Progress Note Date: 01/16/24 Principal diagnosis: Small bowel perforation Patient seen on coverage for Dr. Easton. Complaining of mild abdominal discomfort. Some bloating. No flatus or bowel movement. Nasogastric tube has been clamped. Sips of liquids were allowed. White blood cell count 9.9. Objective - Vital Signs Vital signs: Vital Signs Temp 98.3 F 01/16/24 14:22 Pulse 82 01/16/24 14:22 Resp 18 01/16/24 14:22 BP 156/90 01/16/24 14:22 Pulse Ox 98 01/16/24 14:22 FiO2 Intake & Output 01/16/24 01/16/24 01/17/24 06:59 18:59 06:59 Output Total 300 4100 Balance -300 -4100 Weight 40.823 kg Output: Urine 300 4100 Uretheral (Sandoval) 300 Other: Voiding Method Indwelling Catheter Indwelling Catheter - Exam Abdomen: Soft, mild distention, mild tenderness, dressing in place - Labs CBC & Chem 7: 01/16/24 07:39 01/16/24 07:39 Labs: Abnormal Lab Results - Last 24 Hours (Table) 01/15/24 01/16/24 01/16/24 Range/Units 20:53 02:30 05:52 RBC (4.40-5.60) X 10*6/uL Hgb (13.0-17.0) g/dL Hct (39.6-50.0) % MCV (80.0-97.0) FL MCH (27.0-32.0) pg MCHC (32.0-37.0) g/dL RDW (11.5-14.5) % Sodium (137-145) mmol/L Carbon Dioxide (22-30) mmol/L Creatinine (0.66-1.25) mg/dL Glucose (74-99) mg/dL POC Glucose (mg/dL) 220 H 203 H 224 H (70-110) mg/dL Calcium (8.4-10.2) mg/dL Phosphorus (2.5-4.5) mg/dL 01/16/24 01/16/24 01/16/24 Range/Units 07:39 07:39 11:47 RBC 3.73 L (4.40-5.60) X 10*6/uL Hgb 8.4 L (13.0-17.0) g/dL Hct 26.7 L (39.6-50.0) % MCV 71.6 L (80.0-97.0) FL MCH 22.5 L (27.0-32.0) pg MCHC 31.5 L (32.0-37.0) g/dL RDW 16.6 H (11.5-14.5) % Sodium 128 L (137-145) mmol/L Carbon Dioxide 20 L (22-30) mmol/L Creatinine 0.47 L (0.66-1.25) mg/dL Glucose 213 H (74-99) mg/dL POC Glucose (mg/dL) 211 H (70-110) mg/dL Calcium 6.9 L (8.4-10.2) mg/dL Phosphorus 2.2 L (2.5-4.5) mg/dL 01/16/24 Range/Units 17:08 RBC (4.40-5.60) X 10*6/uL Hgb (13.0-17.0) g/dL Hct (39.6-50.0) % MCV (80.0-97.0) FL MCH (27.0-32.0) pg MCHC (32.0-37.0) g/dL RDW (11.5-14.5) % Sodium (137-145) mmol/L Carbon Dioxide (22-30) mmol/L Creatinine (0.66-1.25) mg/dL Glucose (74-99) mg/dL POC Glucose (mg/dL) 197 H (70-110) mg/dL Calcium (8.4-10.2) mg/dL Phosphorus (2.5-4.5) mg/dL Microbiology - Last 24 Hours (Table) 01/14/24 19:30 Gram Stain - Preliminary Other - Other Wound Culture - Preliminary 01/14/24 19:30 Gram Stain - Preliminary Other - Other Wound Culture - Preliminary Assessment and Plan (1) SBO (small bowel obstruction) Narrative/Plan: 43-year-old male with small bowel obstruction and small bowel perforation. Resume nasogastric tube to low intermittent suction. Sips of liquids only. Ambulate. Await return of bowel function. Continue antibiotics. Current Visit: Yes Status: Acute Code(s): K56.609 - UNSP INTESTNL OBST, UNSP TO PARTIAL VERSUS COMPLETE OBST SNOMED Code(s): 568009059
[2024-01-16 20:42] LABS: Glucose,Whole Blood 190 mg/dL (70-110)
[2024-01-17 05:51] LABS: Glucose,Whole Blood 155 mg/dL (70-110)
[2024-01-17 07:56] LABS: African American GFR (CKD) >90 (>60 ml/min/1.73 sqM); Anion Gap 4 mmol/L; Blood Urea Nitrogen 11 mg/dL (9-20); Calcium 7.1 mg/dL (8.4-10.2); Carbon Dioxide 20 mmol/L (22-30); Chloride 105 mmol/L (98-107); Glucose 156 mg/dL (74-99); Magnesium 1.6 mg/dL (1.6-2.3); Non-African American GFR(CKD) >90 (>60 ml/min/1.73 sqM); Potassium 4.3 mmol/L (3.5-5.1); Sodium 129 mmol/L (137-145)
[2024-01-17] MEDS: KETOROLAC 15 MG/ML 1 ML VIAL IVP PRN (09:31)
--- NOTE | 2024-01-17 10:37 | P.PN ---
Progress Note - Text Progress Note Date: 01/17/24 HISTORY OF PRESENT ILLNESS: NAEO. Patient is not passing gas. PHYSICAL EXAM: VITAL SIGNS: Reviewed GENERAL: Well-developed in no acute distress. HEENT: No sclera icterus. Extraocular movements grossly intact. Moist buccal mucosa. Head is atraumatic, normocephalic. Hears conversational speech. No nasal drainage. NECK: Supple without lymphadenopathy. CHEST: Non-labored respirations and equal bilateral excursions. CARDIOVASCULAR: Palpable 2+ radial pulses. ABDOMEN: Mildly distended. Mild tenderness with palpation. Prevena wound VAC intact MUSCULOSKELETAL: No clubbing or cyanosis. NEUROLOGIC: No focal or lateralizing signs. Cranial nerves II through XII grossly intact. PSYCH: Appropriate affect. Alert and oriented to person, place and time. SKIN: Well perfused. Good skin turgor. ASSESSMENT: 1. Small bowel obstruction due to adhesive band disease, epigastrium 2. Large bowel obstruction due to internal hernia, transverse colon 3. Underweight, BMI 14.5 4. Severe protein malnutrition 5. History of mandibular cancer status post chemoradiation 6. History of small bowel perforation 7. History of tracheostomy gastrostomy tube 8. History of MRSA 9. History of pulmonary embolism 10. Hypertensive heart disease 11. Chronic constipation 12. Severe dehydration 13. Abdominal ascites PLAN: -Continue NG tube-LIS -NPO -Continue pain management, toradol added -Continue TPN for now until diet is able to be advanced -Encourage patient to use incentive spirometer -Encourage patient to increase activity level -DVT prophylaxis subcu heparin and GI prophylaxis Protonix
[2024-01-17] MEDS: MAGNESIUM SULFATE-D5W PMX 1 GM in DEXTROSE/WATER 1 100ML.BAG IVPB SCH (10:58)
[2024-01-17 11:43] LABS: Glucose,Whole Blood 156 mg/dL (70-110)
[2024-01-17 17:16] LABS: Glucose,Whole Blood 137 mg/dL (70-110)
[2024-01-17 20:09] LABS: Glucose,Whole Blood 151 mg/dL (70-110)
--- NOTE | 2024-01-17 22:28 | P.PN ---
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 Patient also has a history of alcohol abuse and is a former smoker. Patient was recently admitted to the hospital from October 07 through November 13 secondary to an ileus and small bowel obstruction. Patient underwent laparotomy with lysis of adhesions for over 2 hours and excision of small bowel tumor x 3 closure of decompressive enterostomy partial omentectomy drainage of abdominal ascites 2 L underwent the surgery on October 16, 2023. Patient had an extensive hospital stay on to have Enterococcus and MRSA in the abdominal wound from the Homero-Dalton drain. He was discharged with IV antibiotics. Patient returns to the hospital secondary to 2-day complaints of abdominal pain and KUB x-ray initially showed dilated bowel loops with air fluid levels partial obstruction versus severe ileus. Follow up abdominal pelvis CT was done revealing persistent dilated fluid-filled distal small bowel and at least proximal colonic loops. Colonic obstruction is suspected cannot exclude ischemia or pneumatosis particularly the right colon. Advise lactic acid correlation advised urgent surgical evaluation. Patient's white blood cell count is normal at 9.2, hemoglobin 12.5, sodium 133, potassium 2.7, BUN 15, creatinine 0.53, magnesium 1.5, alk phos 220. Urinalysis is showing 1+ protein, greater than 182 RBCs, rare bacteria. He was admitted to the hospital for general surgery consultation patient is on IV fluids and receiving IV pain medication. 01/17/2024 Patient seen in follow up for Small bowel obstruction due to adhesive band disease, epigastrium --Large bowel obstruction due to internal hernia, transverse colon --Severe protein malnutrition -Continue NG tube-LIS -NPO -Continue pain management, toradol added -Continue TPN for now until diet is able to be advanced -Encourage patient to use incentive spirometer -Encourage patient to increase activity level -DVT prophylaxis subcu heparin and GI prophylaxis Protonix Objective - Vital Signs Vital signs: Vital Signs Temp 98.7 F 01/17/24 07:26 Pulse 100 01/17/24 07:26 Resp 18 01/17/24 07:26 BP 158/98 01/17/24 07:26 Pulse Ox 95 01/17/24 07:26 FiO2 Intake & Output 01/16/24 01/17/24 01/17/24 18:59 06:59 18:59 Intake Total 1013 Output Total 4100 1999 Balance -4100 -987 Weight 40.823 kg Intake: Intake, IV Titration 1013 Amount Sodium Acetate 12 meq 1013 Potassium Acetate 10 meq Magnesium Sulfate gm 0.5 gm Sodium Phosphate 3 mmol In Amino Acid 5%- D20w+Lytes*E* 1,000 ml @ 60 mls/hr IV .[facility] Rx#:[id number] Output: Gastric Drainage 300 Urine 4100 1700 Other: Voiding Method Indwelling Catheter Indwelling Catheter - Exam GENERAL: The patient is alert and oriented x3, not in any acute distress. Well developed, well nourished. HEENT: Pupils are round and equally reacting to light. EOMI. No scleral icterus. No conjunctival pallor. Normocephalic, atraumatic. No pharyngeal erythema. No thyromegaly. CARDIOVASCULAR: S1 and S2 present. No murmurs, rubs, or gallops. PULMONARY: Chest is clear to auscultation, no wheezing or crackles. ABDOMEN: Soft, mild diffuse tenderness. Bowel sounds present.. No palpable organomegaly. NG tube has been placed. MUSCULOSKELETAL: No joint swelling or deformity. EXTREMITIES: No cyanosis, clubbing, or pedal edema. NEUROLOGICAL: Gross neurological examination did not reveal any focal deficits. SKIN: No rashes. - Labs CBC & Chem 7: 01/16/24 07:39 01/17/24 06:43 Labs: Abnormal Lab Results - Last 24 Hours (Table) 01/16/24 01/16/24 01/16/24 Range/Units 07:39 11:47 17:08 RBC 3.73 L (4.40-5.60) X 10*6/uL Hgb 8.4 L (13.0-17.0) g/dL Hct 26.7 L (39.6-50.0) % MCV 71.6 L (80.0-97.0) FL MCH 22.5 L (27.0-32.0) pg MCHC 31.5 L (32.0-37.0) g/dL RDW 16.6 H (11.5-14.5) % Sodium (137-145) mmol/L Carbon Dioxide (22-30) mmol/L Creatinine (0.66-1.25) mg/dL Glucose (74-99) mg/dL POC Glucose (mg/dL) 211 H 197 H (70-110) mg/dL Calcium (8.4-10.2) mg/dL 01/16/24 01/17/24 01/17/24 Range/Units 20:40 05:49 06:43 RBC (4.40-5.60) X 10*6/uL Hgb (13.0-17.0) g/dL Hct (39.6-50.0) % MCV (80.0-97.0) FL MCH (27.0-32.0) pg MCHC (32.0-37.0) g/dL RDW (11.5-14.5) % Sodium 129 L (137-145) mmol/L Carbon Dioxide 20 L (22-30) mmol/L Creatinine 0.46 L (0.66-1.25) mg/dL Glucose 156 H (74-99) mg/dL POC Glucose (mg/dL) 190 H 155 H (70-110) mg/dL Calcium 7.1 L (8.4-10.2) mg/dL Microbiology - Last 24 Hours (Table) 01/14/24 19:30 Gram Stain - Preliminary Other - Other Wound Culture - Preliminary 01/14/24 19:30 Gram Stain - Preliminary Other - Other Wound Culture - Preliminary Assessment and Plan Assessment: Acute small bowel obstruction status post expiratory laparotomy and lysis of additions. Postoperative day 1 Abdominal pain chronic with sigmoid volvulus Sigmoid volvulus status post colonic decompression Abdominal distention due to. bowel obstruction improving. Hx of bowel cancer with prior resection and lysis of adhesions and prolonged hospital stay Hypokalemia due to poor oral intake supplemented with IV potassium and improved levels Hyponatremia hypovolemic Hypomagnesemia Abnormal UA due to dehydration Hx of jaw cancer with chemoradiation and trach/peg in the past Hx of pulmonary embolism Severe protein malnutrition patient will be getting PICC line for nutrition may be a candidate for PEG tube if he is not able to increase his oral intake and meet caloric needs. Iron deficiency anemia hx Hx of SVT Hx of ETOH Hx of nicotine use GI prophylaxis. On PPI. DVT prophylaxis with heparin subcu Full Code Plan Patient is status post expiratory laparotomy, lysis of additions and reduction of internal hernia and drainage of ascites. General surgery is on board. NG tube has been placed for gastric decompression. Continue with PICC line and TPN nutrition Patient was started on clear liquid diet. Continue pain management with IV dilaudid and IV toradol Continue metoprolol Recommending to hold of on norvasc at this time Repeat blood work, monitor renal function/electrolytes Continue with IV hydration and monitor sodium level. Currently on D5 half- normal saline. PT/OT consultation. Prognosis guarded due to multiple medical problems and comorbid conditions..
[2024-01-18 05:06] LABS: African American GFR (CKD) >90 (>60 ml/min/1.73 sqM); Anion Gap 2 mmol/L; Blood Urea Nitrogen 11 mg/dL (9-20); Calcium 7.1 mg/dL (8.4-10.2); Carbon Dioxide 22 mmol/L (22-30); Chloride 104 mmol/L (98-107); Glucose 126 mg/dL (74-99); Magnesium 1.9 mg/dL (1.6-2.3); Non-African American GFR(CKD) >90 (>60 ml/min/1.73 sqM); Phosphorus 3.7 mg/dL (2.5-4.5); Potassium 4.2 mmol/L (3.5-5.1); Sodium 128 mmol/L (137-145)
[2024-01-18 05:49] LABS: Glucose,Whole Blood 136 mg/dL (70-110)
--- NOTE | 2024-01-18 10:48 | P.PN ---
Subjective Progress Note Date: 01/18/24 Principal diagnosis: Small bowel perforation Patient's pain is better today. Nasogastric tube remains in place. He has not hungry. No flatus or bowel movement. He is belching some. Gastric output mostly salivary in appearance. Objective - Vital Signs Vital signs: Vital Signs Temp 98.7 F 01/18/24 07:27 Pulse 80 01/18/24 07:27 Resp 18 01/18/24 07:27 BP 156/91 01/18/24 07:27 Pulse Ox 94 L 01/18/24 07:27 FiO2 Intake & Output 01/17/24 01/18/24 01/18/24 18:59 06:59 18:59 Intake Total 1029 Output Total 1850 2850 750 Balance -185 -182 -750 Intake: Intake, IV Titration 1029 Amount Mvi, Adult No.4 with Vit 1029 K 10 ml Trace (Conc-1Ml/ Dose) 1 ml Sodium Acetate 20 meq Potassium Acetate 10 meq Magnesium Sulfate gm 0.5 gm Sodium Phosphate 6 mmol In Amino Acid 5%-D20w+Lytes*E* 1, 000 ml @ 60 mls/hr IV .BY DURATION [facility] Rx#: [id number] Output: Gastric Drainage 200 750 Urine 1850 2650 Other: Voiding Method Indwelling Catheter Indwelling Catheter - Exam Abdomen: Soft, nondistended, mild tenderness, Prevena dressing in place - Labs CBC & Chem 7: 01/16/24 07:39 01/18/24 04:40 Labs: Abnormal Lab Results - Last 24 Hours (Table) 01/17/24 01/17/24 01/17/24 Range/Units 11:41 17:14 20:06 Sodium (137-145) mmol/L Creatinine (0.66-1.25) mg/dL Glucose (74-99) mg/dL POC Glucose (mg/dL) 156 H 137 H 151 H (70-110) mg/dL Calcium (8.4-10.2) mg/dL 01/18/24 01/18/24 Range/Units 04:40 05:46 Sodium 128 L (137-145) mmol/L Creatinine 0.46 L (0.66-1.25) mg/dL Glucose 126 H (74-99) mg/dL POC Glucose (mg/dL) 136 H (70-110) mg/dL Calcium 7.1 L (8.4-10.2) mg/dL Microbiology - Last 24 Hours (Table) 01/14/24 19:30 Gram Stain - Preliminary Other - Other Wound Culture - Preliminary 01/14/24 19:30 Gram Stain - Preliminary Other - Other Wound Culture - Preliminary 01/14/24 19:30 Anaerobic Culture - Preliminary Perineal Fluid 01/14/24 19:30 Anaerobic Culture - Preliminary Peritoneal Fluid Assessment and Plan (1) SBO (small bowel obstruction) Narrative/Plan: Patient overall is stable. Await return bowel function. Continue TPN and gastric decompression. Will follow. Increase activity. Current Visit: Yes Status: Acute Code(s): K56.609 - UNSP INTESTNL OBST, UNSP TO PARTIAL VERSUS COMPLETE OBST SNOMED Code(s): 077319398
[2024-01-18 11:29] LABS: Glucose,Whole Blood 175 mg/dL (70-110)
[2024-01-18 16:39] LABS: Glucose,Whole Blood 141 mg/dL (70-110)
[2024-01-18 20:27] LABS: Glucose,Whole Blood 151 mg/dL (70-110)
[2024-01-19 01:57] LABS: Glucose,Whole Blood 153 mg/dL (70-110)
[2024-01-19 05:49] LABS: Glucose,Whole Blood 142 mg/dL (70-110)
[2024-01-19 08:12] LABS: Ionized Calcium 4.4 mg/dL (4.5-5.3)
[2024-01-19 08:38] LABS: African American GFR (CKD) >90 (>60 ml/min/1.73 sqM); Anion Gap 4 mmol/L; Blood Urea Nitrogen 11 mg/dL (9-20); Calcium 7.4 mg/dL (8.4-10.2); Carbon Dioxide 24 mmol/L (22-30); Chloride 102 mmol/L (98-107); Glucose 148 mg/dL (74-99); Magnesium 1.7 mg/dL (1.6-2.3); Non-African American GFR(CKD) >90 (>60 ml/min/1.73 sqM); Phosphorus 3.6 mg/dL (2.5-4.5); Potassium 4.1 mmol/L (3.5-5.1); Sodium 130 mmol/L (137-145)
[2024-01-19 09:29] LABS: Anisocytosis Slight; Basophils % (A) 0 %; Eosinophils # (A) 0.1 k/uL (0-0.7); Eosinophils % (A) 1 %; HCT 28.8 % (39.0-53.0); HGB 9.1 gm/dL (13.0-17.5); Hypochromasia Moderate; Lymphocytes # (A) 0.5 k/uL (1.0-4.8); Lymphocytes % (A) 4 %; MCH 23.8 pg (25.0-35.0); MCHC 31.5 g/dL (31.0-37.0); MCV 75.6 fL (80.0-100.0); Microcytosis Slight; Monocytes # (A) 0.4 k/uL (0-1.0); Monocytes % (A) 4 %; Neutrophils # (A) 10.5 k/uL (1.3-7.7); Neutrophils % (A) 90 %; Platelet Count 316 k/uL (150-450); RBC 3.81 m/uL (4.30-5.90); RDW 16.7 % (11.5-15.5); WBC 11.6 k/uL (3.8-10.6)
[2024-01-19] MEDS: MAGNESIUM SULFATE-D5W PMX 1 GM in DEXTROSE/WATER 1 100ML.BAG IVPB ONE (10:55)
[2024-01-19 11:39] LABS: Glucose,Whole Blood 191 mg/dL (70-110)
[2024-01-19] MEDS: CALCIUM GLUCONATE IN NACL 2 GM in SALINE 1 100ML.BAG IVPB ONE (12:23)
--- NOTE | 2024-01-19 13:40 | P.PN ---
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 Patient also has a history of alcohol abuse and is a former smoker. Patient was recently admitted to the hospital from October 07 through November 13 secondary to an ileus and small bowel obstruction. Patient underwent laparotomy with lysis of adhesions for over 2 hours and excision of small bowel tumor x 3 closure of decompressive enterostomy partial omentectomy drainage of abdominal ascites 2 L underwent the surgery on October 16, 2023. Patient had an extensive hospital stay on to have Enterococcus and MRSA in the abdominal wound from the Homero-Dalton drain. He was discharged with IV antibiotics. Patient returns to the hospital secondary to 2-day complaints of abdominal pain and KUB x-ray initially showed dilated bowel loops with air fluid levels partial obstruction versus severe ileus. Follow up abdominal pelvis CT was done revealing persistent dilated fluid-filled distal small bowel and at least proximal colonic loops. Colonic obstruction is suspected cannot exclude ischemia or pneumatosis particularly the right colon. Advise lactic acid correlation advised urgent surgical evaluation. Patient's white blood cell count is normal at 9.2, hemoglo bin 12.5, sodium 133, potassium 2.7, BUN 15, creatinine 0.53, magnesium 1.5, alk phos 220. Urinalysis is showing 1+ protein, greater than 182 RBCs, rare bacteria. He was admitted to the hospital for general surgery consultation patient is on IV fluids and receiving IV pain medication. 01/17/2024 Patient seen in follow up for Small bowel obstruction due to adhesive band d isease, epigastrium --Large bowel obstruction due to internal hernia, transverse colon --Severe protein malnutrition -Continue NG tube-LIS -NPO -Continue pain management, toradol added -Continue TPN for now until diet is able to be advanced -Encourage patient to use incentive spirometer -Encourage patient to increase activity level -DVT prophylaxis subcu heparin and GI prophylaxis Protonix 01/18/2024 Patient is seen and evaluated in room at bedside Sleepy but easily arousable; patient reports no bowel movement or flatus Vital signs are reviewed temperature 98.7, pulse 60, respiration 18 and blood pressure 156/91 Lab review shows sodium of 128, potassium of 4.2, BUNs/creatinine of 11/0.46 and blood glucose of 126 General surgery following and recommending to continue with TPN and gastric decompression till bowel function returns Increase activity as recommended Objective - Vital Signs Vital signs: Vital Signs Temp 98.7 F 01/18/24 07:27 Pulse 80 01/18/24 07:27 Resp 18 01/18/24 07:27 BP 156/91 01/18/24 07:27 Pulse Ox 94 L 01/18/24 07:27 FiO2 Intake & Output 01/17/24 01/18/24 01/18/24 18:59 06:59 18:59 Intake Total 1029 Output Total 1850 2850 750 Balance -1849 -182 -750 Intake: Intake, IV Titration 1029 Amount Mvi, Adult No.4 with Vit 1029 K 10 ml Trace (Conc-1Ml/ Dose) 1 ml Sodium Acetate 20 meq Potassium Acetate 10 meq Magnesium Sulfate gm 0.5 gm Sodium Phosphate 6 mmol In Amino Acid 5%-D20w+Lytes*E* 1, 000 ml @ 60 mls/hr IV .BY DURATION [facility] Rx#: [id number] Output: Gastric Drainage 200 750 Urine 1850 2650 Other: Voiding Method Indwelling Catheter Indwelling Catheter Indwelling Catheter - Exam GENERAL: The patient is alert and oriented x3, not in any acute distress. Well d eveloped, well nourished. HEENT: Pupils are round and equally reacting to light. EOMI. No scleral icterus. No conjunctival pallor. Normocephalic, atraumatic. No pharyngeal erythema. No thyromegaly. CARDIOVASCULAR: S1 and S2 present. No murmurs, rubs, or gallops. PULMONARY: Chest is clear to auscultation, no wheezing or crackles. ABDOMEN: Soft, mild diffuse tenderness. Bowel sounds present.. No palpable organomegaly. NG tube has been placed. MUSCULOSKELETAL: No joint swelling or deformity. EXTREMITIES: No cyanosis, clubbing, or pedal edema. NEUROLOGICAL: Gross neurological examination did not reveal any focal deficits. SKIN: No rashes. - Labs CBC & Chem 7: 01/19/24 07:47 01/19/24 07:47 Labs: Abnormal Lab Results - Last 24 Hours (Table) 01/17/24 01/17/24 01/17/24 Range/Units 11:41 17:14 20:06 Sodium (137-145) mmol/L Creatinine (0.66-1.25) mg/dL Glucose (74-99) mg/dL POC Glucose (mg/dL) 156 H 137 H 151 H (70-110) mg/dL Calcium (8.4-10.2) mg/dL 01/18/24 01/18/24 01/18/24 Range/Units 04:40 05:46 11:27 Sodium 128 L (137-145) mmol/L Creatinine 0.46 L (0.66-1.25) mg/dL Glucose 126 H (74-99) mg/dL POC Glucose (mg/dL) 136 H 175 H (70-110) mg/dL Calcium 7.1 L (8.4-10.2) mg/dL Microbiology - Last 24 Hours (Table) 01/14/24 19:30 Gram Stain - Preliminary Other - Other Wound Culture - Preliminary 01/14/24 19:30 Gram Stain - Preliminary Other - Other Wound Culture - Preliminary 01/14/24 19:30 Anaerobic Culture - Preliminary Perineal Fluid 01/14/24 19:30 Anaerobic Culture - Preliminary Peritoneal Fluid Assessment and Plan Assessment: Acute small bowel obstruction status post expiratory laparotomy and lysis of additions. Postoperative day 1 Abdominal pain chronic with sigmoid volvulus Sigmoid volvulus status post colonic decompression Abdominal distention due to. bowel obstruction improving. Hx of bowel cancer with prior resection and lysis of adhesions and prolonged hospital stay Hypokalemia due to poor oral intake supplemented with IV potassium and improved levels Hyponatremia hypovolemic Hypomagnesemia Abnormal UA due to dehydration Hx of jaw cancer with chemoradiation and trach/peg in the past Hx of pulmonary embolism Severe protein malnutrition patient will be getting PICC line for nutrition may be a candidate for PEG tube if he is not able to increase his oral intake and meet caloric needs. Iron deficiency anemia hx Hx of SVT Hx of ETOH Hx of nicotine use GI prophylaxis. On PPI. DVT prophylaxis with heparin subcu Full Code Plan Patient is status post expiratory laparotomy, lysis of additions and reduction of internal hernia and drainage of ascites. General surgery is on board. NG tube has been placed for gastric decompression. Continue with PICC line and TPN nutrition Patient was started on clear liquid diet. Continue pain management with IV dilaudid and IV toradol Continue metoprolol Recommending to hold of on norvasc at this time Repeat blood work, monitor renal function/electrolytes Continue with IV hydration and monitor sodium level. Currently on D5 half- normal saline. PT/OT consultation. Prognosis guarded due to multiple medical problems and comorbid conditions..
--- NOTE | 2024-01-19 15:25 | P.PN ---
Subjective Progress Note Date: 01/19/24 CHIEF COMPLAINT: Abdominal pain HISTORY OF PRESENT ILLNESS: Patient is postop day #5 status post open exp loratory laparotomy with extensive lysis of adhesions and reduction and closure of internal hernia and drainage of abdominal ascites. Patient reports that he continues to feel better. He denies any nausea or vomiting. Reports no bowel activity. He does have testicular swelling. Afebrile. WBC is up at 11.6 Hgb 9.1 platelets 316 sodium 130 magnesium 1.7 PHYSICAL EXAM: VITAL SIGNS: Reviewed GENERAL: in no acute distress. HEENT: No sclera icterus. Extraocular movements grossly intact. Moist buccal mucosa. ABDOMEN: Mildly distended. Mild tenderness with palpation. Prevena wound VAC intact ASSESSMENT: 1. Small bowel obstruction due to adhesive band disease, epigastrium 2. Large bowel obstruction due to internal hernia, transverse colon 3. Underweight, BMI 14.5 4. Severe protein malnutrition 5. History of mandibular cancer status post chemoradiation 6. History of small bowel perforation 7. History of tracheostomy gastrostomy tube 8. History of MRSA 9. History of pulmonary embolism 10. Hypertensive heart disease 11. Chronic constipation 12. Severe dehydration 13. Abdominal ascites 14. Hypomagnesemia PLAN: -Continue NG tube for decompression -Keep patient n.p.o. -Continue TPN for nutrition support -Consult physical therapy to help ambulate patient -Magnesium being replaced -Sandoval catheter can be discontinued from surgical standpoint -Encourage patient to use incentive spirometer -Continue TPN for now until diet is able to be advanced -Encourage patient to use incentive spirometer -Continue pain management -DVT prophylaxis subcu heparin and GI prophylaxis Protonix Physician Skate Maker note has been reviewed by physician. Signing provider agrees with the documented findings, assessment, and plan of care. Objective - Vital Signs Vital signs: Vital Signs Temp 98.3 F 01/19/24 14:15 Pulse 80 01/19/24 14:15 Resp 16 01/19/24 14:15 BP 153/78 01/19/24 14:15 Pulse Ox 100 01/19/24 14:15 FiO2 Intake & Output 01/18/24 01/19/24 01/19/24 18:59 06:59 18:59 Intake Total 2046 120 Output Total 0 1400 2450 Balance -2200 647 -2330 Intake: Intake, IV Titration 2046 Amount Mvi, Adult No.4 with Vit 1029 K 10 ml Trace (Conc-1Ml/ Dose) 1 ml Sodium Acetate 20 meq Potassium Acetate 10 meq Magnesium Sulfate gm 0.5 gm Sodium Phosphate 6 mmol In Amino Acid 5%-D20w+Lytes*E* 1, 000 ml @ 60 mls/hr IV .BY DURATION [facility] Rx#: [id number] Sodium Acetate 20 meq 1018 Potassium Acetate 10 meq Magnesium Sulfate gm 0.5 gm Sodium Phosphate 6 mmol In Amino Acid 5%- D20w+Lytes*E* 1,000 ml @ 60 mls/hr IV .BY DURATION [facility] Rx#:[id number] Oral 120 Output: Gastric Drainage 750 350 Urine 1450 1050 2450 Other: Voiding Method Indwelling Catheter Indwelling Catheter Indwelling Catheter - Labs CBC & Chem 7: 01/19/24 07:47 01/19/24 07:47 Labs: Abnormal Lab Results - Last 24 Hours (Table) 01/18/24 01/18/24 01/19/24 Range/Units 16:37 20:25 01:56 WBC (3.8-10.6) k/uL RBC (4.30-5.90) m/uL Hgb (13.0-17.5) gm/dL Hct (39.0-53.0) % MCV (80.0-100.0) fL MCH (25.0-35.0) pg RDW (11.5-15.5) % Neutrophils # (1.3-7.7) k/uL Lymphocytes # (1.0-4.8) k/uL Sodium (137-145) mmol/L Creatinine (0.66-1.25) mg/dL Glucose (74-99) mg/dL POC Glucose (mg/dL) 141 H 151 H 153 H (70-110) mg/dL Calcium (8.4-10.2) mg/dL Ionized Calcium Shayy (4.5-5.3) mg/dL Triglycerides (0.00-149.00) mg/dL 01/19/24 01/19/24 01/19/24 Range/Units 05:48 07:47 07:47 WBC (3.8-10.6) k/uL RBC (4.30-5.90) m/uL Hgb (13.0-17.5) gm/dL Hct (39.0-53.0) % MCV (80.0-100.0) fL MCH (25.0-35.0) pg RDW (11.5-15.5) % Neutrophils # (1.3-7.7) k/uL Lymphocytes # (1.0-4.8) k/uL Sodium 130 L (137-145) mmol/L Creatinine 0.43 L (0.66-1.25) mg/dL Glucose 148 H (74-99) mg/dL POC Glucose (mg/dL) 142 H (70-110) mg/dL Calcium 7.4 L (8.4-10.2) mg/dL Ionized Calcium Shayy 4.4 L (4.5-5.3) mg/dL Triglycerides 164.00 H (0.00-149.00) mg/dL 01/19/24 01/19/24 Range/Units 07:47 11:37 WBC 11.6 H (3.8-10.6) k/uL RBC 3.81 L (4.30-5.90) m/uL Hgb 9.1 L (13.0-17.5) gm/dL Hct 28.8 L (39.0-53.0) % MCV 75.6 L (80.0-100.0) fL MCH 23.8 L (25.0-35.0) pg RDW 16.7 H (11.5-15.5) % Neutrophils # 10.5 H (1.3-7.7) k/uL Lymphocytes # 0.5 L (1.0-4.8) k/uL Sodium (137-145) mmol/L Creatinine (0.66-1.25) mg/dL Glucose (74-99) mg/dL POC Glucose (mg/dL) 191 H (70-110) mg/dL Calcium (8.4-10.2) mg/dL Ionized Calcium Shayy (4.5-5.3) mg/dL Triglycerides (0.00-149.00) mg/dL Microbiology - Last 24 Hours (Table) 01/14/24 19:30 Anaerobic Culture - Final Perineal Fluid 01/14/24 19:30 Anaerobic Culture - Final Peritoneal Fluid 01/14/24 19:30 Gram Stain - Final Other - Other Wound Culture - Final 01/14/24 19:30 Gram Stain - Final Other - Other Wound Culture - Final
[2024-01-19 16:54] LABS: Glucose,Whole Blood 160 mg/dL (70-110)
[2024-01-19 20:32] LABS: Glucose,Whole Blood 128 mg/dL (70-110)
--- NOTE | 2024-01-19 22:07 | P.PN ---
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 Patient also has a history of alcohol abuse and is a former smoker. Patient was recently admitted to the hospital from October 07 through November 13 secondary to an ileus and small bowel obstruction. Patient underwent laparotomy with lysis of adhesions for over 2 hours and excision of small bowel tumor x 3 closure of decompressive enterostomy partial omentectomy drainage of abdominal ascites 2 L underwent the surgery on October 16, 2023. Patient had an extensive hospital stay on to have Enterococcus and MRSA in the abdominal wound from the Homero-Dalton drain. He was discharged with IV antibiotics. Patient returns to the hospital secondary to 2-day complaints of abdominal pain and KUB x-ray initially showed dilated bowel loops with air fluid levels partial obstruction versus severe ileus. Follow up abdominal pelvis CT was done revealing persistent dilated fluid-filled distal small bowel and at least proximal colonic loops. Colonic obstruction is suspected cannot exclude ischemia or pneumatosis particularly the right colon. Advise lactic acid correlation advised urgent surgical evaluation. Patient's white blood cell count is normal at 9.2, hemoglobin 12.5, sodium 133, potassium 2.7, BUN 15, creatinine 0.53, magnesium 1.5, alk phos 220. Urinalysis is showing 1+ protein, greater than 182 RBCs, rare bacteria. He was admitted to the hospital for general surgery consultation patient is on IV fluids and receiving IV pain medication. 01/17/2024 Patient seen in follow up for Small bowel obstruction due to adhesive band disease, epigastrium --Large bowel obstruction due to internal hernia, transverse colon --Severe protein malnutrition -Continue NG tube-LIS -NPO -Continue pain management, toradol added -Continue TPN for now until diet is able to be advanced -Encourage patient to use incentive spirometer -Encourage patient to increase activity level -DVT prophylaxis subcu heparin and GI prophylaxis Protonix 01/18/2024 Patient is seen and evaluated in room at bedside Sleepy but easily arousable; patient reports no bowel movement or flatus Vital signs are reviewed temperature 98.7, pulse 60, respiration 18 and blood pressure 156/91 Lab review shows sodium of 128, potassium of 4.2, BUNs/creatinine of 11/0.46 and blood glucose of 126 General surgery following and recommending to continue with TPN and gastric decompression till bowel function returns Increase activity as recommended 01/19/24 NG tube and there is 330 mL of clear discharge Patient remains n.p.o., he does not feel hungry He is getting Dilaudid for pain control, his main symptom is abdominal pain No bowel movement, no flatus TPN is running Patient is running and Sandoval catheter in place Objective - Vital Signs Vital signs: Vital Signs Temp 98.1 F 01/19/24 07:15 Pulse 69 01/19/24 07:15 Resp 18 01/19/24 08:00 BP 151/79 01/19/24 07:15 Pulse Ox 99 01/19/24 07:15 FiO2 Intake & Output 01/18/24 01/19/24 01/19/24 18:59 06:59 18:59 Intake Total 2046 120 Output Total 2200 1400 Balance -2200 647 120 Intake: Intake, IV Titration 2046 Amount Mvi, Adult No.4 with Vit 1029 K 10 ml Trace (Conc-1Ml/ Dose) 1 ml Sodium Acetate 20 meq Potassium Acetate 10 meq Magnesium Sulfate gm 0.5 gm Sodium Phosphate 6 mmol In Amino Acid 5%-D20w+Lytes*E* 1, 000 ml @ 60 mls/hr IV .BY DURATION [facility] Rx#: [id number] Sodium Acetate 20 meq 1018 Potassium Acetate 10 meq Magnesium Sulfate gm 0.5 gm Sodium Phosphate 6 mmol In Amino Acid 5%- D20w+Lytes*E* 1,000 ml @ 60 mls/hr IV .BY DURATION [facility] Rx#:[id number] Oral 120 Output: Gastric Drainage 750 350 Urine 1450 1050 Other: Voiding Method Indwelling Catheter Indwelling Catheter Indwelling Catheter - Exam GENERAL: The patient is alert and oriented x3, not in any acute distress. Well developed, well nourished. HEENT: Pupils are round and equally reacting to light. EOMI. No scleral icterus. No conjunctival pallor. Normocephalic, atraumatic. No pharyngeal erythema. No thyromegaly. CARDIOVASCULAR: S1 and S2 present. No murmurs, rubs, or gallops. PULMONARY: Chest is clear to auscultation, no wheezing or crackles. -ABDOMEN: Soft, mild diffuse tenderness. Bowel sounds present.. No palpable organomegaly. NG tube has been placed. Vertical midline incision with wound VAC in place MUSCULOSKELETAL: No joint swelling or deformity. EXTREMITIES: No cyanosis, clubbing, or pedal edema. NEUROLOGICAL: Gross neurological examination did not reveal any focal deficits. SKIN: No rashes. - Labs CBC & Chem 7: 01/19/24 07:47 01/19/24 07:47 Labs: Abnormal Lab Results - Last 24 Hours (Table) 01/18/24 01/18/24 01/19/24 Range/Units 16:37 20:25 01:56 WBC (3.8-10.6) k/uL RBC (4.30-5.90) m/uL Hgb (13.0-17.5) gm/dL Hct (39.0-53.0) % MCV (80.0-100.0) fL MCH (25.0-35.0) pg RDW (11.5-15.5) % Neutrophils # (1.3-7.7) k/uL Lymphocytes # (1.0-4.8) k/uL Sodium (137-145) mmol/L Creatinine (0.66-1.25) mg/dL Glucose (74-99) mg/dL POC Glucose (mg/dL) 141 H 151 H 153 H (70-110) mg/dL Calcium (8.4-10.2) mg/dL Ionized Calcium Shayy (4.5-5.3) mg/dL Triglycerides (0.00-149.00) mg/dL 01/19/24 01/19/24 01/19/24 Range/Units 05:48 07:47 07:47 WBC (3.8-10.6) k/uL RBC (4.30-5.90) m/uL Hgb (13.0-17.5) gm/dL Hct (39.0-53.0) % MCV (80.0-100.0) fL MCH (25.0-35.0) pg RDW (11.5-15.5) % Neutrophils # (1.3-7.7) k/uL Lymphocytes # (1.0-4.8) k/uL Sodium 130 L (137-145) mmol/L Creatinine 0.43 L (0.66-1.25) mg/dL Glucose 148 H (74-99) mg/dL POC Glucose (mg/dL) 142 H (70-110) mg/dL Calcium 7.4 L (8.4-10.2) mg/dL Ionized Calcium Shayy 4.4 L (4.5-5.3) mg/dL Triglycerides 164.00 H (0.00-149.00) mg/dL 01/19/24 01/19/24 Range/Units 07:47 11:37 WBC 11.6 H (3.8-10.6) k/uL RBC 3.81 L (4.30-5.90) m/uL Hgb 9.1 L (13.0-17.5) gm/dL Hct 28.8 L (39.0-53.0) % MCV 75.6 L (80.0-100.0) fL MCH 23.8 L (25.0-35.0) pg RDW 16.7 H (11.5-15.5) % Neutrophils # 10.5 H (1.3-7.7) k/uL Lymphocytes # 0.5 L (1.0-4.8) k/uL Sodium (137-145) mmol/L Creatinine (0.66-1.25) mg/dL Glucose (74-99) mg/dL POC Glucose (mg/dL) 191 H (70-110) mg/dL Calcium (8.4-10.2) mg/dL Ionized Calcium Shayy (4.5-5.3) mg/dL Triglycerides (0.00-149.00) mg/dL Microbiology - Last 24 Hours (Table) 01/14/24 19:30 Gram Stain - Final Other - Other Wound Culture - Final 01/14/24 19:30 Gram Stain - Final Other - Other Wound Culture - Final Assessment and Plan Assessment: Acute small bowel obstruction status post expiratory laparotomy and lysis of additions. Postoperative day 1 Abdominal pain chronic with sigmoid volvulus Sigmoid volvulus status post colonic decompression Abdominal distention due to. bowel obstruction improving. Hx of bowel cancer with prior resection and lysis of adhesions and prolonged ho spital stay Hypokalemia due to poor oral intake supplemented with IV potassium and improved levels Hyponatremia hypovolemic Hypomagnesemia Abnormal UA due to dehydration Hx of jaw cancer with chemoradiation and trach/peg in the past Hx of pulmonary embolism Severe protein malnutrition patient will be getting PICC line for nutrition may be a candidate for PEG tube if he is not able to increase his oral intake and meet caloric needs. Iron deficiency anemia hx Hx of SVT Hx of ETOH Hx of nicotine use GI prophylaxis. On PPI. DVT prophylaxis with heparin subcu Full Code Plan: Patient is status post expiratory laparotomy, lysis of additions and reduction of internal hernia and drainage of ascites. General surgery is on board. NG tube has been placed for gastric decompression. Continue with PICC line and TPN nutrition Patient was started on clear liquid diet. Continue pain management with IV dilaudid and IV toradol Continue metoprolol Recommending to hold of on norvasc at this time Repeat blood work, monitor renal function/electrolytes Continue with IV hydration and monitor sodium level. Currently on D5 half- normal saline. PT/OT consultation. Prognosis guarded due to multiple medical problems and comorbid conditions..
[2024-01-20 02:00] LABS: Glucose,Whole Blood 144 mg/dL (70-110)
[2024-01-20 06:01] LABS: Glucose,Whole Blood 134 mg/dL (70-110)
[2024-01-20 10:43] LABS: African American GFR (CKD) >90 (>60 ml/min/1.73 sqM); Anion Gap 4 mmol/L; Blood Urea Nitrogen 13 mg/dL (9-20); Calcium 7.3 mg/dL (8.4-10.2); Carbon Dioxide 25 mmol/L (22-30); Chloride 99 mmol/L (98-107); Glucose 134 mg/dL (74-99); Magnesium 1.7 mg/dL (1.6-2.3); Non-African American GFR(CKD) >90 (>60 ml/min/1.73 sqM); Phosphorus 4.1 mg/dL (2.5-4.5); Potassium 4.4 mmol/L (3.5-5.1); Sodium 128 mmol/L (137-145)
--- NOTE | 2024-01-20 11:24 | P.PN ---
Subjective Progress Note Date: 01/20/24 CHIEF COMPLAINT: Abdominal pain HISTORY OF PRESENT ILLNESS: Patient is postop day #6 status post open exp loratory laparotomy with extensive lysis of adhesions and reduction and closure of internal hernia and drainage of abdominal ascites. Patient reports he is starting to feel hungry. He denies any flatus or bowel movement. Denies any nausea. Afebrile sodium 128 potassium is 4.4 PHYSICAL EXAM: VITAL SIGNS: Reviewed GENERAL: in no acute distress. HEENT: No sclera icterus. Extraocular movements grossly intact. Moist buccal mucosa. ABDOMEN: Mildly distended. Mild tenderness with palpation. Prevena wound VAC intact : scrotal edema ASSESSMENT: 1. Small bowel obstruction due to adhesive band disease, epigastrium 2. Large bowel obstruction due to internal hernia, transverse colon 3. Underweight, BMI 14.5 4. Severe protein malnutrition 5. History of mandibular cancer status post chemoradiation 6. History of small bowel perforation 7. History of tracheostomy gastrostomy tube 8. History of MRSA 9. History of pulmonary embolism 10. Hypertensive heart disease 11. Chronic constipation 12. Severe dehydration 13. Abdominal ascites 14. Hypomagnesemia PLAN: -Continue NG tube for decompression -Keep patient n.p.o. -Continue TPN for nutrition support -Consult physical therapy to help ambulate patient -Magnesium being replaced -Encourage patient to use incentive spirometer -Continue pain management -DVT prophylaxis subcu heparin and GI prophylaxis Protonix Physician Sales Product Specialist note has been reviewed by physician. Signing provider agrees with the documented findings, assessment, and plan of care. Objective - Vital Signs Vital signs: Vital Signs Temp 98.3 F 01/20/24 07:05 Pulse 79 01/20/24 07:05 Resp 16 01/20/24 07:05 BP 165/91 01/20/24 07:05 Pulse Ox 96 01/20/24 07:05 FiO2 Intake & Output 01/19/24 01/20/24 01/20/24 18:59 06:59 18:59 Intake Total 360 0 Output Total 4828 0136 Balance -2089 Weight 55.248 kg Intake: Intake, IV Titration 0 Amount Mvi, Adult No.4 with Vit 720 K 10 ml Trace (Conc-1Ml/ Dose) 1 ml Sodium Acetate 32 meq Potassium Acetate 10 meq Magnesium Sulfate gm 1 gm Sodium Phosphate 6 mmol In Amino Acid 5%- D20w+Lytes*E* 1,000 ml @ 60 mls/hr IV .BY DURATION [facility] Rx#:[id number] Sodium Chloride 0.9% 1, 1200 000 ml @ 100 mls/hr IV . Q10H [facility] Rx#:[id number] Oral 360 Output: Gastric Drainage 600 Urine 2450 2026 Uretheral (Sandoval) 900 Emesis 20 Other: Voiding Method Indwelling Catheter Indwelling Catheter Indwelling Catheter - Labs CBC & Chem 7: 01/19/24 07:47 01/20/24 10:12 Labs: Abnormal Lab Results - Last 24 Hours (Table) 01/19/24 01/19/24 01/19/24 Range/Units 11:37 16:48 20:31 Sodium (137-145) mmol/L Creatinine (0.66-1.25) mg/dL Glucose (74-99) mg/dL POC Glucose (mg/dL) 191 H 160 H 128 H (70-110) mg/dL Calcium (8.4-10.2) mg/dL 01/20/24 01/20/24 01/20/24 Range/Units 01:59 05:59 10:12 Sodium 128 L (137-145) mmol/L Creatinine 0.38 L (0.66-1.25) mg/dL Glucose 134 H (74-99) mg/dL POC Glucose (mg/dL) 144 H 134 H (70-110) mg/dL Calcium 7.3 L (8.4-10.2) mg/dL Microbiology - Last 24 Hours (Table) 01/14/24 19:30 Anaerobic Culture - Final Perineal Fluid 01/14/24 19:30 Anaerobic Culture - Final Peritoneal Fluid 01/14/24 19:30 Gram Stain - Final Other - Other Wound Culture - Final 01/14/24 19:30 Gram Stain - Final Other - Other Wound Culture - Final
[2024-01-20 11:45] LABS: Glucose,Whole Blood 124 mg/dL (70-110)
[2024-01-20 11:59] VITALS: BMI 19.6
--- NOTE | 2024-01-20 12:07 | P.PN ---
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 Patient also has a history of alcohol abuse and is a former smoker. Patient was recently admitted to the hospital from October 07 through November 13 secondary to an ileus and small bowel obstruction. Patient underwent laparotomy with lysis of adhesions for over 2 hours and excision of small bowel tumor x 3 closure of decompressive enterostomy partial omentectomy drainage of abdominal ascites 2 L underwent the surgery on October 16, 2023. Patient had an extensive hospital stay on to have Enterococcus and MRSA in the abdominal wound from the Homero-Dalton drain. He was discharged with IV antibiotics. Patient returns to the hospital secondary to 2-day complaints of abdominal pain and KUB x-ray initially showed dilated bowel loops with air fluid levels partial obstruction versus severe ileus. Follow up abdominal pelvis CT was done revealing persistent dilated fluid-filled distal small bowel and at least proximal colonic loops. Colonic obstruction is suspected cannot exclude ischemia or pneumatosis particularly the right colon. Advise lactic acid correlation advised urgent surgical evaluation. Patient's white blood cell count is normal at 9.2, hemoglobin 12.5, sodium 133, potassium 2.7, BUN 15, creatinine 0.53, magnesium 1.5, alk phos 220. Urinalysis is showing 1+ protein, greater than 182 RBCs, rare bacteria. He was admitted to the hospital for general surgery consultation patient is on IV fluids and receiving IV pain medication. 01/17/2024 Patient seen in follow up for Small bowel obstruction due to adhesive band disease, epigastrium --Large bowel obstruction due to internal hernia, transverse colon --Severe protein malnutrition -Continue NG tube-LIS -NPO -Continue pain management, toradol added -Continue TPN for now until diet is able to be advanced -Encourage patient to use incentive spirometer -Encourage patient to increase activity level -DVT prophylaxis subcu heparin and GI prophylaxis Protonix 01/18/2024 Patient is seen and evaluated in room at bedside Sleepy but easily arousable; patient reports no bowel movement or flatus Vital signs are reviewed temperature 98.7, pulse 60, respiration 18 and blood pressure 156/91 Lab review shows sodium of 128, potassium of 4.2, BUNs/creatinine of 11/0.46 and blood glucose of 126 General surgery following and recommending to continue with TPN and gastric decompression till bowel function returns Increase activity as recommended 01/19/24 NG tube and there is 330 mL of clear discharge Patient remains n.p.o., he does not feel hungry He is getting Dilaudid for pain control, his main symptom is abdominal pain No bowel movement, no flatus TPN is running Patient urine is running and Sandoval catheter in place 01/20/2024 Patient is awake sitting in chair NG tube in place No bowel movement Vertical surgical wound with wound VAC in place No chest pain or dyspnea Objective - Vital Signs Vital signs: Vital Signs Temp 98.3 F 01/20/24 07:05 Pulse 79 01/20/24 07:05 Resp 16 01/20/24 07:05 BP 165/91 01/20/24 07:05 Pulse Ox 96 01/20/24 07:05 FiO2 Intake & Output 01/19/24 01/20/24 01/20/24 18:59 06:59 18:59 Intake Total 360 1920 Output Total 245 2647 Balance -2089 Weight 55.248 kg 55.248 kg Intake: Intake, IV Titration 1920 Amount Mvi, Adult No.4 with Vit 720 K 10 ml Trace (Conc-1Ml/ Dose) 1 ml Sodium Acetate 32 meq Potassium Acetate 10 meq Magnesium Sulfate gm 1 gm Sodium Phosphate 6 mmol In Amino Acid 5%- D20w+Lytes*E* 1,000 ml @ 60 mls/hr IV .BY DURATION [facility] Rx#:[id number] Sodium Chloride 0.9% 1, 1200 000 ml @ 100 mls/hr IV . Q10H [facility] Rx#:[id number] Oral 360 Output: Gastric Drainage 600 Urine 2449 2026 Uretheral (Sandoval) 900 Emesis 20 Other: Voiding Method Indwelling Catheter Indwelling Catheter Indwelling Catheter - Exam GENERAL: The patient is alert and oriented x3, not in any acute distress. Well developed, well nourished. HEENT: Pupils are round and equally reacting to light. EOMI. No scleral icterus. No conjunctival pallor. Normocephalic, atraumatic. No pharyngeal erythema. No t hyromegaly. CARDIOVASCULAR: S1 and S2 present. No murmurs, rubs, or gallops. PULMONARY: Chest is clear to auscultation, no wheezing or crackles. -ABDOMEN: Soft, mild diffuse tenderness. Bowel sounds present.. No palpable organomegaly. NG tube has been placed. Vertical midline incision with wound VAC in place MUSCULOSKELETAL: No joint swelling or deformity. EXTREMITIES: No cyanosis, clubbing, or pedal edema. NEUROLOGICAL: Gross neurological examination did not reveal any focal deficits. SKIN: No rashes. - Labs CBC & Chem 7: 01/19/24 07:47 01/20/24 10:12 Labs: Abnormal Lab Results - Last 24 Hours (Table) 01/19/24 01/19/24 01/20/24 Range/Units 16:48 20:31 01:59 Sodium (137-145) mmol/L Creatinine (0.66-1.25) mg/dL Glucose (74-99) mg/dL POC Glucose (mg/dL) 160 H 128 H 144 H (70-110) mg/dL Calcium (8.4-10.2) mg/dL 01/20/24 01/20/24 01/20/24 Range/Units 05:59 10:12 11:43 Sodium 128 L (137-145) mmol/L Creatinine 0.38 L (0.66-1.25) mg/dL Glucose 134 H (74-99) mg/dL POC Glucose (mg/dL) 134 H 124 H (70-110) mg/dL Calcium 7.3 L (8.4-10.2) mg/dL Microbiology - Last 24 Hours (Table) 01/14/24 19:30 Anaerobic Culture - Final Perineal Fluid 01/14/24 19:30 Anaerobic Culture - Final Peritoneal Fluid 01/14/24 19:30 Gram Stain - Final Other - Other Wound Culture - Final 01/14/24 19:30 Gram Stain - Final Other - Other Wound Culture - Final Assessment and Plan Assessment: Acute small bowel obstruction status post expiratory laparotomy and lysis of additions. Postoperative day 1 Abdominal pain chronic with sigmoid volvulus Sigmoid volvulus status post colonic decompression Abdominal distention due to. bowel obstruction improving. Hx of bowel cancer with prior resection and lysis of adhesions and prolonged hospital stay Hypokalemia due to poor oral intake supplemented with IV potassium and improved levels Hyponatremia hypovolemic Hypomagnesemia Abnormal UA due to dehydration Hx of jaw cancer with chemoradiation and trach/peg in the past Hx of pulmonary embolism Severe protein malnutrition patient will be getting PICC line for nutrition may be a candidate for PEG tube if he is not able to increase his oral intake and me et caloric needs. Iron deficiency anemia hx Hx of SVT Hx of ETOH Hx of nicotine use GI prophylaxis. On PPI. DVT prophylaxis with heparin subcu Full Code Plan: Patient is status post expiratory laparotomy, lysis of additions and reduction of internal hernia and drainage of ascites. General surgery is on board. NG tube has been placed for gastric decompression. Continue with PICC line and TPN nutrition Patient was started on clear liquid diet. Continue pain management with IV dilaudid and IV toradol Continue metoprolol Recommending to hold of on norvasc at this time Repeat blood work, monitor renal function/electrolytes Continue with IV hydration and monitor sodium level. Currently on D5 half- normal saline. PT/OT consultation. Prognosis guarded due to multiple medical problems and comorbid conditions..
[2024-01-20] MEDS: MAGNESIUM SULFATE-D5W PMX 1 GM in DEXTROSE/WATER 1 100ML.BAG IVPB ONE (12:15)
[2024-01-20 15:16] LABS: Anisocytosis Slight; Basophils % (A) 0 %; Eosinophils % (A) 0 %; HCT 31.2 % (39.0-53.0); HGB 9.2 gm/dL (13.0-17.5); Hypochromasia Marked; Lymphocytes # (A) 0.4 k/uL (1.0-4.8); Lymphocytes % (A) 3 %; MCH 22.7 pg (25.0-35.0); MCHC 29.6 g/dL (31.0-37.0); MCV 76.8 fL (80.0-100.0); Microcytosis Slight; Monocytes # (A) 0.9 k/uL (0-1.0); Monocytes % (A) 7 %; Neutrophils % (A) 87 %; Platelet Count 404 k/uL (150-450); RBC 4.06 m/uL (4.30-5.90); RDW 16.6 % (11.5-15.5); WBC 12.7 k/uL (3.8-10.6)
[2024-01-20 16:45] LABS: Glucose,Whole Blood 135 mg/dL (70-110)
[2024-01-20 20:45] LABS: Glucose,Whole Blood 167 mg/dL (70-110)
[2024-01-20 22:05] LABS: Glucose,Whole Blood 161 mg/dL (70-110)
[2024-01-21 02:01] LABS: Glucose,Whole Blood 167 mg/dL (70-110)
[2024-01-21 05:57] LABS: Glucose,Whole Blood 174 mg/dL (70-110)
[2024-01-21 11:26] LABS: Glucose,Whole Blood 158 mg/dL (70-110)
--- NOTE | 2024-01-21 13:59 | P.PN ---
Subjective Progress Note Date: 01/21/24 CHIEF COMPLAINT: Abdominal pain HISTORY OF PRESENT ILLNESS: Patient is postop day #7 status post open exp loratory laparotomy with extensive lysis of adhesions and reduction and closure of internal hernia and drainage of abdominal ascites. Patient is having flatus and bowel movement. Reports that he is feeling hungry. His pain is controlled. Patient reports he is starting to feel hungry. He denies any nausea. Afebrile. Labs ordered for this a.m. are still not done PHYSICAL EXAM: VITAL SIGNS: Reviewed GENERAL: in no acute distress. HEENT: No sclera icterus. Extraocular movements grossly intact. Moist buccal mucosa. ABDOMEN: Mildly distended. Mild tenderness with palpation. Prevena wound VAC intact : scrotal edema ASSESSMENT: 1. Small bowel obstruction due to adhesive band disease, epigastrium 2. Large bowel obstruction due to internal hernia, transverse colon 3. Underweight, BMI 14.5 4. Severe protein malnutrition 5. History of mandibular cancer status post chemoradiation 6. History of small bowel perforation 7. History of tracheostomy gastrostomy tube 8. History of MRSA 9. History of pulmonary embolism 10. Hypertensive heart disease 11. Chronic constipation 12. Severe dehydration 13. Abdominal ascites 14. Hypomagnesemia PLAN: -Discontinue NG tube -Advance diet to full liquids -Encourage patient to ambulate -Continue TPN for nutrition support until oral intake increases -Continue pain management. Add Tylenol scheduled -Repeat labs in a.m. -DVT prophylaxis subcu heparin and GI prophylaxis Protonix Physician Garnett Mechanic note has been reviewed by physician. Signing provider agrees with the documented findings, assessment, and plan of care. I have personally seen and examined the patient, reviewed the JAVA TECHNICAL MANAGER /PAs history, exam and MDM and agree with the assessment and plan as written. Based on total visit time, I have performed more than 50% of the visit. As above: Patient feels better today. Passed large volume of flatus. Pain is improving. Will remove nasogastric tube and begin diet. Objective - Vital Signs Vital signs: Vital Signs Temp 98.2 F 01/21/24 07:30 Pulse 69 01/21/24 07:30 Resp 16 01/21/24 07:30 BP 141/84 01/21/24 07:30 Pulse Ox 100 01/21/24 07:30 FiO2 Intake & Output 01/20/24 01/21/24 01/21/24 18:59 06:59 18:59 Intake Total 1036 1570 400 Output Total 350 1175 Balance 686 395 400 Weight 55.248 kg Intake: Intake, IV Titration 1036 1570 Amount Fat Emulsion 20% 250 ml @ 250 20.833 mls/hr IV SuTuFr@ 2000 [facility] Rx#:[id number] Mvi, Adult No.4 with Vit 1036 720 K 10 ml Trace (Conc-1Ml/ Dose) 1 ml Sodium Acetate 32 meq Potassium Acetate 10 meq Magnesium Sulfate gm 1 gm Sodium Phosphate 6 mmol In Amino Acid 5%- D20w+Lytes*E* 1,000 ml @ 60 mls/hr IV .BY DURATION EDUARDO Rx#:[id number] Sodium Chloride 0.9% 1, 600 000 ml @ 50 mls/hr IV . Q20H [facility] Rx#:[id number] Oral 400 Output: Gastric Drainage 350 Urine 800 Uretheral (Sandoval) 800 Stool 375 Other: Voiding Method Indwelling Catheter Indwelling Catheter Indwelling Catheter # Bowel Movements 1 - Labs CBC & Chem 7: 01/20/24 14:20 01/20/24 10:12 Labs: Abnormal Lab Results - Last 24 Hours (Table) 01/20/24 01/20/24 01/20/24 Range/Units 14:20 16:43 20:43 WBC 12.7 H (3.8-10.6) k/uL RBC 4.06 L (4.30-5.90) m/uL Hgb 9.2 L (13.0-17.5) gm/dL Hct 31.2 L (39.0-53.0) % MCV 76.8 L (80.0-100.0) fL MCH 22.7 L (25.0-35.0) pg MCHC 29.6 L (31.0-37.0) g/dL RDW 16.6 H (11.5-15.5) % Neutrophils # 11.0 H (1.3-7.7) k/uL Lymphocytes # 0.4 L (1.0-4.8) k/uL POC Glucose (mg/dL) 135 H 167 H (70-110) mg/dL 01/20/24 01/21/24 01/21/24 Range/Units 22:04 02:00 05:56 WBC (3.8-10.6) k/uL RBC (4.30-5.90) m/uL Hgb (13.0-17.5) gm/dL Hct (39.0-53.0) % MCV (80.0-100.0) fL MCH (25.0-35.0) pg MCHC (31.0-37.0) g/dL RDW (11.5-15.5) % Neutrophils # (1.3-7.7) k/uL Lymphocytes # (1.0-4.8) k/uL POC Glucose (mg/dL) 161 H 167 H 174 H (70-110) mg/dL 01/21/24 Range/Units 11:25 WBC (3.8-10.6) k/uL RBC (4.30-5.90) m/uL Hgb (13.0-17.5) gm/dL Hct (39.0-53.0) % MCV (80.0-100.0) fL MCH (25.0-35.0) pg MCHC (31.0-37.0) g/dL RDW (11.5-15.5) % Neutrophils # (1.3-7.7) k/uL Lymphocytes # (1.0-4.8) k/uL POC Glucose (mg/dL) 158 H (70-110) mg/dL
[2024-01-21] MEDS: ACETAMINOPHEN TAB 500 MG TAB PO SCH (14:43)
[2024-01-21 16:47] LABS: Glucose,Whole Blood 152 mg/dL (70-110)
[2024-01-21 18:43] LABS: African American GFR (CKD) >90 (>60 ml/min/1.73 sqM); Anion Gap 4 mmol/L; Blood Urea Nitrogen 15 mg/dL (9-20); Calcium 7.3 mg/dL (8.4-10.2); Carbon Dioxide 24 mmol/L (22-30); Chloride 99 mmol/L (98-107); Glucose 147 mg/dL (74-99); Magnesium 1.8 mg/dL (1.6-2.3); Non-African American GFR(CKD) >90 (>60 ml/min/1.73 sqM); Phosphorus 3.7 mg/dL (2.5-4.5); Potassium 3.5 mmol/L (3.5-5.1); Sodium 127 mmol/L (137-145)
[2024-01-21 19:33] LABS: Basophils # (A) 0.05 X 10*3/uL (0.00-0.10); Basophils % (A) 0.3 %; Eosinophils # (A) 0.01 X 10*3/uL (0.04-0.35); Eosinophils % (A) 0.1 %; HCT 27.6 % (39.6-50.0); HGB 8.7 g/dL (13.0-17.0); Lymphocytes # (A) 0.77 X 10*3/uL (0.90-5.00); Lymphocytes % (A) 5.1 %; MCH 22.5 pg (27.0-32.0); MCHC 31.5 g/dL (32.0-37.0); MCV 71.5 FL (80.0-97.0); Mean Platelet Volume 10.7 FL (9.5-12.2); Monocytes # (A) 0.77 X 10*3/uL (0.20-1.00); Monocytes % (A) 5.1 %; NRBC Per 100 WBC 0 X 10*3/uL (0.00-0.01); Neutrophils # (A) 13.21 X 10*3/uL (1.80-7.70); Neutrophils % (A) 88.3 %; Platelet Count 481 X 10*3/uL (140-440); RBC 3.86 X 10*6/uL (4.40-5.60); RDW 16.8 % (11.5-14.5); WBC 14.98 X 10*3/uL (4.50-10.00)
[2024-01-21 21:05] LABS: Glucose,Whole Blood 150 mg/dL (70-110)
--- NOTE | 2024-01-21 22:40 | P.PN ---
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 Patient also has a history of alcohol abuse and is a former smoker. Patient was recently admitted to the hospital from October 07 through November 13 secondary to an ileus and small bowel obstruction. Patient underwent laparotomy with lysis of adhesions for over 2 hours and excision of small bowel tumor x 3 closure of decompressive enterostomy partial omentectomy drainage of abdominal ascites 2 L underwent the surgery on October 16, 2023. Patient had an extensive hospital stay on to have Enterococcus and MRSA in the abdominal wound from the Homero-Dalton drain. He was discharged with IV antibiotics. Patient returns to the hospital secondary to 2-day complaints of abdominal pain and KUB x-ray initially showed dilated bowel loops with air fluid levels partial obstruction versus severe ileus. Follow up abdominal pelvis CT was done revealing persistent dilated fluid-filled distal small bowel and at least proximal colonic loops. Colonic obstruction is suspected cannot exclude ischemia or pneumatosis particularly the right colon. Advise lactic acid correlation advised urgent surgical evaluation. Patient's white blood cell count is normal at 9.2, hemoglobin 12.5, sodium 133, potassium 2.7, BUN 15, creatinine 0.53, magnesium 1.5, alk phos 220. Urinalysis is showing 1+ protein, greater than 182 RBCs, rare bacteria. He was admitted to the hospital for general surgery consultation patient is on IV fluids and receiving IV pain medication. 01/17/2024 Patient seen in follow up for Small bowel obstruction due to adhesive band disease, epigastrium --Large bowel obstruction due to internal hernia, transverse colon --Severe protein malnutrition -Continue NG tube-LIS -NPO -Continue pain management, toradol added -Continue TPN for now until diet is able to be advanced -Encourage patient to use incentive spirometer -Encourage patient to increase activity level -DVT prophylaxis subcu heparin and GI prophylaxis Protonix 01/18/2024 Patient is seen and evaluated in room at bedside Sleepy but easily arousable; patient reports no bowel movement or flatus Vital signs are reviewed temperature 98.7, pulse 60, respiration 18 and blood pressure 156/91 Lab review shows sodium of 128, potassium of 4.2, BUNs/creatinine of 11/0.46 and blood glucose of 126 General surgery following and recommending to continue with TPN and gastric decompression till bowel function returns Increase activity as recommended 01/19/24 NG tube and there is 330 mL of clear discharge Patient remains n.p.o., he does not feel hungry He is getting Dilaudid for pain control, his main symptom is abdominal pain No bowel movement, no flatus TPN is running Patient urine is running and Sandoval catheter in place 01/20/2024 Patient is awake sitting in chair NG tube in place No bowel movement Vertical surgical wound with wound VAC in place No chest pain or dyspnea 01/21/2024 Sitting in chair with no distress Abdominal pain and tenderness is controlled He is passing gas today Has bilateral pitting leg edema Objective - Vital Signs Vital signs: Vital Signs Temp 98.0 F 01/21/24 19:38 Pulse 82 01/21/24 19:38 Resp 13 01/21/24 19:38 BP 155/97 01/21/24 19:38 Pulse Ox 97 01/21/24 19:38 FiO2 Intake & Output 01/21/24 01/21/24 01/22/24 06:59 18:59 06:59 Intake Total 1570 400 Output Total 1175 1250 Balance 395 -850 Intake: Intake, IV Titration 1570 Amount Fat Emulsion 20% 250 ml @ 250 20.833 mls/hr IV SuTuFr@ 2000 [facility] Rx#:[id number] Mvi, Adult No.4 with Vit 720 K 10 ml Trace (Conc-1Ml/ Dose) 1 ml Sodium Acetate 32 meq Potassium Acetate 10 meq Magnesium Sulfate gm 1 gm Sodium Phosphate 6 mmol In Amino Acid 5%- D20w+Lytes*E* 1,000 ml @ 60 mls/hr IV .BY DURATION EDUARDO Rx#:[id number] Sodium Chloride 0.9% 1, 600 000 ml @ 50 mls/hr IV . Q20H [facility] Rx#:[id number] Oral 400 Output: Urine 800 1250 Uretheral (Sandoval) 800 Stool 375 Other: Voiding Method Indwelling Catheter Indwelling Catheter # Bowel Movements 1 - Exam GENERAL: The patient is alert and oriented x3, not in any acute distress. Well developed, well nourished. HEENT: Pupils are round and equally reacting to light. EOMI. No scleral icterus. No conjunctival pallor. Normocephalic, atraumatic. No pharyngeal erythema. No thyromegaly. CARDIOVASCULAR: S1 and S2 present. No murmurs, rubs, or gallops. PULMONARY: Chest is clear to auscultation, no wheezing or crackles. -ABDOMEN: Soft, mild diffuse tenderness. Bowel sounds present.. No palpable organomegaly. NG tube has been placed. Vertical midline incision with wound VAC in place MUSCULOSKELETAL: No joint swelling or deformity. EXTREMITIES: No cyanosis, clubbing, or pedal edema. NEUROLOGICAL: Gross neurological examination did not reveal any focal deficits. SKIN: No rashes. - Labs CBC & Chem 7: 01/21/24 15:56 01/21/24 17:58 Labs: Abnormal Lab Results - Last 24 Hours (Table) 01/21/24 01/21/24 01/21/24 Range/Units 02:00 05:56 11:25 WBC (4.50-10.00) X 10*3/uL RBC (4.40-5.60) X 10*6/uL Hgb (13.0-17.0) g/dL Hct (39.6-50.0) % MCV (80.0-97.0) FL MCH (27.0-32.0) pg MCHC (32.0-37.0) g/dL RDW (11.5-14.5) % Plt Count (140-440) X 10*3/uL Immature Gran # (0.00-0.04) X 10*3/uL Neutrophils # (1.80-7.70) X 10*3/uL Lymphocytes # (0.90-5.00) X 10*3/uL Eosinophils # (0.04-0.35) X 10*3/uL Sodium (137-145) mmol/L Creatinine (0.66-1.25) mg/dL Glucose (74-99) mg/dL POC Glucose (mg/dL) 167 H 174 H 158 H (70-110) mg/dL Calcium (8.4-10.2) mg/dL 01/21/24 01/21/24 01/21/24 Range/Units 15:56 16:45 17:58 WBC 14.98 H (4.50-10.00) X 10*3/uL RBC 3.86 L (4.40-5.60) X 10*6/uL Hgb 8.7 L (13.0-17.0) g/dL Hct 27.6 L (39.6-50.0) % MCV 71.5 L (80.0-97.0) FL MCH 22.5 L (27.0-32.0) pg MCHC 31.5 L (32.0-37.0) g/dL RDW 16.8 H (11.5-14.5) % Plt Count 481 H (140-440) X 10*3/uL Immature Gran # 0.17 H (0.00-0.04) X 10*3/uL Neutrophils # 13.21 H (1.80-7.70) X 10*3/uL Lymphocytes # 0.77 L (0.90-5.00) X 10*3/uL Eosinophils # 0.01 L (0.04-0.35) X 10*3/uL Sodium 127 L (137-145) mmol/L Creatinine 0.37 L (0.66-1.25) mg/dL Glucose 147 H (74-99) mg/dL POC Glucose (mg/dL) 152 H (70-110) mg/dL Calcium 7.3 L (8.4-10.2) mg/dL 01/21/24 Range/Units 21:02 WBC (4.50-10.00) X 10*3/uL RBC (4.40-5.60) X 10*6/uL Hgb (13.0-17.0) g/dL Hct (39.6-50.0) % MCV (80.0-97.0) FL MCH (27.0-32.0) pg MCHC (32.0-37.0) g/dL RDW (11.5-14.5) % Plt Count (140-440) X 10*3/uL Immature Gran # (0.00-0.04) X 10*3/uL Neutrophils # (1.80-7.70) X 10*3/uL Lymphocytes # (0.90-5.00) X 10*3/uL Eosinophils # (0.04-0.35) X 10*3/uL Sodium (137-145) mmol/L Creatinine (0.66-1.25) mg/dL Glucose (74-99) mg/dL POC Glucose (mg/dL) 150 H (70-110) mg/dL Calcium (8.4-10.2) mg/dL Assessment and Plan Assessment: Acute small bowel obstruction status post expiratory laparotomy and lysis of additions. Postoperative day 1 Abdominal pain chronic with sigmoid volvulus Sigmoid volvulus status post colonic decompression Abdominal distention due to. bowel obstruction improving. Hx of bowel cancer with prior resection and lysis of adhesions and prolonged hospital stay Hypokalemia due to poor oral intake supplemented with IV potassium and improved levels Hyponatremia hypovolemic Hypomagnesemia Abnormal UA due to dehydration Hx of jaw cancer with chemoradiation and trach/peg in the past Hx of pulmonary embolism Severe protein malnutrition patient will be getting PICC line for nutrition may be a candidate for PEG tube if he is not able to increase his oral intake and meet caloric needs. Iron deficiency anemia hx Hx of SVT Hx of ETOH Hx of nicotine use GI prophylaxis. On PPI. DVT prophylaxis with heparin subcu Full Code Plan: Patient is status post expiratory laparotomy, lysis of additions and reduction of internal hernia and drainage of ascites. General surgery is on board. NG tube has been placed for gastric decompression. Continue with PICC line and TPN nutrition Patient was started on clear liquid diet. Continue pain management with IV dilaudid and IV toradol Continue metoprolol Recommending to hold of on norvasc at this time Repeat blood work, monitor renal function/electrolytes Continue with IV hydration and monitor sodium level. Currently on D5 half- normal saline. PT/OT consultation. Prognosis guarded due to multiple medical problems and comorbid conditions..
[2024-01-22 01:52] LABS: Glucose,Whole Blood 124 mg/dL (70-110)
[2024-01-22 06:08] LABS: ALT 20 U/L (4-49); AST 21 U/L (17-59); African American GFR (CKD) >90 (>60 ml/min/1.73 sqM); Albumin 1.8 g/dL (3.5-5.0); Albumin/Globulin Ratio 0.7; Alkaline Phosphatase 333 U/L (38-126); Anion Gap 4 mmol/L; Blood Urea Nitrogen 15 mg/dL (9-20); Calcium 7.3 mg/dL (8.4-10.2); Carbon Dioxide 24 mmol/L (22-30); Chloride 101 mmol/L (98-107); Globulin 2.7 g/dL; Glucose 118 mg/dL (74-99); Magnesium 1.8 mg/dL (1.6-2.3); Non-African American GFR(CKD) >90 (>60 ml/min/1.73 sqM); Phosphorus 3.7 mg/dL (2.5-4.5); Potassium 3.9 mmol/L (3.5-5.1); Sodium 129 mmol/L (137-145); Total Bilirubin 0.9 mg/dL (0.2-1.3); Total Protein 4.5 g/dL (6.3-8.2)
[2024-01-22 06:20] LABS: Glucose,Whole Blood 147 mg/dL (70-110)
[2024-01-22 11:07] LABS: Glucose,Whole Blood 187 mg/dL (70-110)
[2024-01-22 11:11] LABS: Anisocytosis Slight; Basophils % (A) 0 %; Eosinophils % (A) 0 %; HCT 29.4 % (39.0-53.0); HGB 8.7 gm/dL (13.0-17.5); Hypochromasia Slight; Lymphocytes # (A) 0.7 k/uL (1.0-4.8); Lymphocytes % (A) 5 %; MCH 22.2 pg (25.0-35.0); MCHC 29.6 g/dL (31.0-37.0); Mean Platelet Volume 9.3; Microcytosis Slight; Monocytes # (A) 0.9 k/uL (0-1.0); Monocytes % (A) 6 %; Neutrophils # (A) 12.7 k/uL (1.3-7.7); Neutrophils % (A) 87 %; Platelet Count 547 k/uL (150-450); RBC 3.92 m/uL (4.30-5.90); WBC 14.6 k/uL (3.8-10.6)
--- NOTE | 2024-01-22 13:34 | P.PN ---
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 Patient also has a history of alcohol abuse and is a former smoker. Patient was recently admitted to the hospital from October 07 through November 13 secondary to an ileus and small bowel obstruction. Patient underwent laparotomy with lysis of adhesions for over 2 hours and excision of small bowel tumor x 3 closure of decompressive enterostomy partial omentectomy drainage of abdominal ascites 2 L underwent the surgery on October 16, 2023. Patient had an extensive hospital stay on to have Enterococcus and MRSA in the abdominal wound from the Homero-Dalton drain. He was discharged with IV antibiotics. Patient returns to the hospital secondary to 2-day complaints of abdominal pain and KUB x-ray initially showed dilated bowel loops with air fluid levels partial obstruction versus severe ileus. Follow up abdominal pelvis CT was done revealing persistent dilated fluid-filled distal small bowel and at least proximal colonic loops. Colonic obstruction is suspected cannot exclude ischemia or pneumatosis particularly the right colon. Advise lactic acid correlation advised urgent surgical evaluation. Patient's white blood cell count is normal at 9.2, hemoglobin 12.5, sodium 133, potassium 2.7, BUN 15, creatinine 0.53, magnesium 1.5, alk phos 220. Urinalysis is showing 1+ protein, greater than 182 RBCs, rare bacteria. He was admitted to the hospital for general surgery consultation patient is on IV fluids and receiving IV pain medication. 01/17/2024 Patient seen in follow up for Small bowel obstruction due to adhesive band disease, epigastrium --Large bowel obstruction due to internal hernia, transverse colon --Severe protein malnutrition -Continue NG tube-LIS -NPO -Continue pain management, toradol added -Continue TPN for now until diet is able to be advanced -Encourage patient to use incentive spirometer -Encourage patient to increase activity level -DVT prophylaxis subcu heparin and GI prophylaxis Protonix 01/18/2024 Patient is seen and evaluated in room at bedside Sleepy but easily arousable; patient reports no bowel movement or flatus Vital signs are reviewed temperature 98.7, pulse 60, respiration 18 and blood pressure 156/91 Lab review shows sodium of 128, potassium of 4.2, BUNs/creatinine of 11/0.46 and blood glucose of 126 General surgery following and recommending to continue with TPN and gastric decompression till bowel function returns Increase activity as recommended 01/19/24 NG tube and there is 330 mL of clear discharge Patient remains n.p.o., he does not feel hungry He is getting Dilaudid for pain control, his main symptom is abdominal pain No bowel movement, no flatus TPN is running Patient urine is running and Sandoval catheter in place 01/20/2024 Patient is awake sitting in chair NG tube in place No bowel movement Vertical surgical wound with wound VAC in place No chest pain or dyspnea 01/21/2024 Sitting in chair with no distress Abdominal pain and tenderness is controlled He is passing gas today Has bilateral pitting leg edema 01/22/2024 Patient states he has having bowel movement today, he states he has the second bowel movement today. Patient was started on clear liquid diet and he tolerates that well so far No chest pain or dyspnea Objective - Vital Signs Vital signs: Vital Signs Temp 98.5 F 01/22/24 13:12 Pulse 81 01/22/24 13:12 Resp 17 01/22/24 13:12 BP 127/80 01/22/24 13:12 Pulse Ox 99 01/22/24 13:12 FiO2 Intake & Output 01/21/24 01/22/24 01/22/24 18:59 06:59 18:59 Intake Total 400 Output Total 1250 1250 Balance -850 -1250 Intake: Oral 400 Output: Urine 1250 1250 Other: Voiding Method Indwelling Catheter Indwelling Catheter # Bowel Movements 1 - Exam GENERAL: The patient is alert and oriented x3, not in any acute distress. Well developed, well nourished. HEENT: Pupils are round and equally reacting to light. EOMI. No scleral icterus. No conjunctival pallor. Normocephalic, atraumatic. No pharyngeal erythema. No thyromegaly. CARDIOVASCULAR: S1 and S2 present. No murmurs, rubs, or gallops. PULMONARY: Chest is clear to auscultation, no wheezing or crackles. -ABDOMEN: Soft, mild diffuse tenderness. Bowel sounds present.. No palpable organomegaly. NG tube has been placed. Vertical midline incision with wound VAC in place MUSCULOSKELETAL: No joint swelling or deformity. EXTREMITIES: No cyanosis, clubbing, or pedal edema. NEUROLOGICAL: Gross neurological examination did not reveal any focal deficits. SKIN: No rashes. - Labs CBC & Chem 7: 01/22/24 08:30 01/22/24 05:03 Labs: Abnormal Lab Results - Last 24 Hours (Table) 01/21/24 01/21/24 01/21/24 Range/Units 15:56 16:45 17:58 WBC 14.98 H (4.50-10.00) X 10*3/uL RBC 3.86 L (4.40-5.60) X 10*6/uL Hgb 8.7 L (13.0-17.0) g/dL Hct 27.6 L (39.6-50.0) % MCV 71.5 L (80.0-97.0) FL MCH 22.5 L (27.0-32.0) pg MCHC 31.5 L (32.0-37.0) g/dL RDW 16.8 H (11.5-14.5) % Plt Count 481 H (140-440) X 10*3/uL Immature Gran # 0.17 H (0.00-0.04) X 10*3/uL Neutrophils # 13.21 H (1.80-7.70) X 10*3/uL Lymphocytes # 0.77 L (0.90-5.00) X 10*3/uL Eosinophils # 0.01 L (0.04-0.35) X 10*3/uL Sodium 127 L (137-145) mmol/L Creatinine 0.37 L (0.66-1.25) mg/dL Glucose 147 H (74-99) mg/dL POC Glucose (mg/dL) 152 H (70-110) mg/dL Calcium 7.3 L (8.4-10.2) mg/dL Alkaline Phosphatase (38-126) U/L Total Protein (6.3-8.2) g/dL Albumin (3.5-5.0) g/dL 01/21/24 01/22/24 01/22/24 Range/Units 21:02 01:50 05:03 WBC (4.50-10.00) X 10*3/uL RBC (4.40-5.60) X 10*6/uL Hgb (13.0-17.0) g/dL Hct (39.6-50.0) % MCV (80.0-97.0) FL MCH (27.0-32.0) pg MCHC (32.0-37.0) g/dL RDW (11.5-14.5) % Plt Count (140-440) X 10*3/uL Immature Gran # (0.00-0.04) X 10*3/uL Neutrophils # (1.80-7.70) X 10*3/uL Lymphocytes # (0.90-5.00) X 10*3/uL Eosinophils # (0.04-0.35) X 10*3/uL Sodium 129 L (137-145) mmol/L Creatinine 0.38 L (0.66-1.25) mg/dL Glucose 118 H (74-99) mg/dL POC Glucose (mg/dL) 150 H 124 H (70-110) mg/dL Calcium 7.3 L (8.4-10.2) mg/dL Alkaline Phosphatase 333 H (38-126) U/L Total Protein 4.5 L (6.3-8.2) g/dL Albumin 1.8 L (3.5-5.0) g/dL 01/22/24 01/22/24 01/22/24 Range/Units 06:19 08:30 11:06 WBC 14.6 H (4.50-10.00) X 10*3/uL RBC 3.92 L (4.40-5.60) X 10*6/uL Hgb 8.7 L (13.0-17.0) g/dL Hct 29.4 L (39.6-50.0) % MCV 75.0 L (80.0-97.0) FL MCH 22.2 L (27.0-32.0) pg MCHC 29.6 L (32.0-37.0) g/dL RDW 17.0 H (11.5-14.5) % Plt Count 547 H (140-440) X 10*3/uL Immature Gran # (0.00-0.04) X 10*3/uL Neutrophils # 12.7 H (1.80-7.70) X 10*3/uL Lymphocytes # 0.7 L (0.90-5.00) X 10*3/uL Eosinophils # (0.04-0.35) X 10*3/uL Sodium (137-145) mmol/L Creatinine (0.66-1.25) mg/dL Glucose (74-99) mg/dL POC Glucose (mg/dL) 147 H 187 H (70-110) mg/dL Calcium (8.4-10.2) mg/dL Alkaline Phosphatase (38-126) U/L Total Protein (6.3-8.2) g/dL Albumin (3.5-5.0) g/dL Assessment and Plan Assessment: Acute small bowel obstruction status post expiratory laparotomy and lysis of additions. Postoperative day 1 Abdominal pain chronic with sigmoid volvulus Sigmoid volvulus status post colonic decompression Abdominal distention due to. bowel obstruction improving. Hx of bowel cancer with prior resection and lysis of adhesions and prolonged hospital stay Hypokalemia due to poor oral intake supplemented with IV potassium and improved levels Hyponatremia hypovolemic Hypomagnesemia Abnormal UA due to dehydration Hx of jaw cancer with chemoradiation and trach/peg in the past Hx of pulmonary embolism Severe protein malnutrition patient will be getting PICC line for nutrition may be a candidate for PEG tube if he is not able to increase his oral intake and meet caloric needs. Iron deficiency anemia hx Hx of SVT Hx of ETOH Hx of nicotine use GI prophylaxis. On PPI. DVT prophylaxis with heparin subcu Full Code Plan: Patient is status post expiratory laparotomy, lysis of additions and reduction of internal hernia and drainage of ascites. General surgery is on board. NG tube has been placed for gastric decompression. Continue with PICC line and TPN nutrition Patient was started on clear liquid diet. Continue pain management with IV dilaudid and IV toradol Continue metoprolol Recommending to hold of on norvasc at this time Repeat blood work, monitor renal function/electrolytes Continue with IV hydration and monitor sodium level. Currently on D5 half- normal saline. PT/OT consultation. Prognosis guarded due to multiple medical problems and comorbid conditions..
--- NOTE | 2024-01-22 13:38 | P.PN ---
Subjective Progress Note Date: 01/22/24 CHIEF COMPLAINT: Abdominal pain HISTORY OF PRESENT ILLNESS: Patient is postop day #8 status post open exp loratory laparotomy with extensive lysis of adhesions and reduction and closure of internal hernia and drainage of abdominal ascites. Patient is sitting up at bedside chair. His pain is controlled. He denies any nausea or vomiting. Tolerating the full liquids. He is having bowel movements and flatus. Afebrile. WBC is is remaining about the same at 14.6 PHYSICAL EXAM: VITAL SIGNS: Reviewed GENERAL: in no acute distress. HEENT: No sclera icterus. Extraocular movements grossly intact. Moist buccal mucosa. ABDOMEN: Mildly distended. Tenderness with palpation at incision site Prevena wound VAC intact : scrotal edema ASSESSMENT: 1. Small bowel obstruction due to adhesive band disease, epigastrium 2. Large bowel obstruction due to internal hernia, transverse colon 3. Underweight, BMI 14.5 4. Severe protein malnutrition 5. History of mandibular cancer status post chemoradiation 6. History of small bowel perforation 7. History of tracheostomy gastrostomy tube 8. History of MRSA 9. History of pulmonary embolism 10. Hypertensive heart disease 11. Chronic constipation 12. Severe dehydration 13. Abdominal ascites 14. Hypomagnesemia PLAN: -Continue full liquid diet -Encourage patient to increase activity level. Continue to work with PT OT -Continue TPN for nutrition support until oral intake increases -Continue pain management. SIZING SPRAYER, Tylenol and Toradol scheduled -Repeat labs in a.m. -DVT prophylaxis subcu heparin and GI prophylaxis Protonix Physician Valve Machine Operator note has been reviewed by physician. Signing provider agrees with the documented findings, assessment, and plan of care. Objective - Vital Signs Vital signs: Vital Signs Temp 98.5 F 01/22/24 13:12 Pulse 81 01/22/24 13:12 Resp 17 01/22/24 13:12 BP 127/80 01/22/24 13:12 Pulse Ox 99 01/22/24 13:12 FiO2 Intake & Output 01/21/24 01/22/24 01/22/24 18:59 06:59 18:59 Intake Total 400 Output Total 1250 1250 Balance -850 -1250 Intake: Oral 400 Output: Urine 1250 1250 Other: Voiding Method Indwelling Catheter Indwelling Catheter # Bowel Movements 1 - Labs CBC & Chem 7: 01/22/24 08:30 01/22/24 05:03 Labs: Abnormal Lab Results - Last 24 Hours (Table) 01/21/24 01/21/24 01/21/24 Range/Units 15:56 16:45 17:58 WBC 14.98 H (4.50-10.00) X 10*3/uL RBC 3.86 L (4.40-5.60) X 10*6/uL Hgb 8.7 L (13.0-17.0) g/dL Hct 27.6 L (39.6-50.0) % MCV 71.5 L (80.0-97.0) FL MCH 22.5 L (27.0-32.0) pg MCHC 31.5 L (32.0-37.0) g/dL RDW 16.8 H (11.5-14.5) % Plt Count 481 H (140-440) X 10*3/uL Immature Gran # 0.17 H (0.00-0.04) X 10*3/uL Neutrophils # 13.21 H (1.80-7.70) X 10*3/uL Lymphocytes # 0.77 L (0.90-5.00) X 10*3/uL Eosinophils # 0.01 L (0.04-0.35) X 10*3/uL Sodium 127 L (137-145) mmol/L Creatinine 0.37 L (0.66-1.25) mg/dL Glucose 147 H (74-99) mg/dL POC Glucose (mg/dL) 152 H (70-110) mg/dL Calcium 7.3 L (8.4-10.2) mg/dL Alkaline Phosphatase (38-126) U/L Total Protein (6.3-8.2) g/dL Albumin (3.5-5.0) g/dL 01/21/24 01/22/24 01/22/24 Range/Units 21:02 01:50 05:03 WBC (4.50-10.00) X 10*3/uL RBC (4.40-5.60) X 10*6/uL Hgb (13.0-17.0) g/dL Hct (39.6-50.0) % MCV (80.0-97.0) FL MCH (27.0-32.0) pg MCHC (32.0-37.0) g/dL RDW (11.5-14.5) % Plt Count (140-440) X 10*3/uL Immature Gran # (0.00-0.04) X 10*3/uL Neutrophils # (1.80-7.70) X 10*3/uL Lymphocytes # (0.90-5.00) X 10*3/uL Eosinophils # (0.04-0.35) X 10*3/uL Sodium 129 L (137-145) mmol/L Creatinine 0.38 L (0.66-1.25) mg/dL Glucose 118 H (74-99) mg/dL POC Glucose (mg/dL) 150 H 124 H (70-110) mg/dL Calcium 7.3 L (8.4-10.2) mg/dL Alkaline Phosphatase 333 H (38-126) U/L Total Protein 4.5 L (6.3-8.2) g/dL Albumin 1.8 L (3.5-5.0) g/dL 01/22/24 01/22/24 01/22/24 Range/Units 06:19 08:30 11:06 WBC 14.6 H (4.50-10.00) X 10*3/uL RBC 3.92 L (4.40-5.60) X 10*6/uL Hgb 8.7 L (13.0-17.0) g/dL Hct 29.4 L (39.6-50.0) % MCV 75.0 L (80.0-97.0) FL MCH 22.2 L (27.0-32.0) pg MCHC 29.6 L (32.0-37.0) g/dL RDW 17.0 H (11.5-14.5) % Plt Count 547 H (140-440) X 10*3/uL Immature Gran # (0.00-0.04) X 10*3/uL Neutrophils # 12.7 H (1.80-7.70) X 10*3/uL Lymphocytes # 0.7 L (0.90-5.00) X 10*3/uL Eosinophils # (0.04-0.35) X 10*3/uL Sodium (137-145) mmol/L Creatinine (0.66-1.25) mg/dL Glucose (74-99) mg/dL POC Glucose (mg/dL) 147 H 187 H (70-110) mg/dL Calcium (8.4-10.2) mg/dL Alkaline Phosphatase (38-126) U/L Total Protein (6.3-8.2) g/dL Albumin (3.5-5.0) g/dL
[2024-01-22] MEDS: KETOROLAC 15 MG/ML 1 ML VIAL IVP SCH (14:00)
[2024-01-22 16:14] LABS: Glucose,Whole Blood >600 mg/dL (70-110)
[2024-01-22 16:27] LABS: Glucose,Whole Blood 252 mg/dL (70-110)
[2024-01-22 16:35] LABS: Glucose,Whole Blood 165 mg/dL (70-110)
[2024-01-22 20:00] LABS: Glucose,Whole Blood 142 mg/dL (70-110)
[2024-01-23 01:59] LABS: Glucose,Whole Blood 127 mg/dL (70-110)
[2024-01-23 06:00] LABS: Glucose,Whole Blood 128 mg/dL (70-110)
[2024-01-23 08:01] LABS: ALT 15 U/L (4-49); AST 14 U/L (17-59); African American GFR (CKD) >90 (>60 ml/min/1.73 sqM); Albumin 1.7 g/dL (3.5-5.0); Albumin/Globulin Ratio 0.7; Alkaline Phosphatase 235 U/L (38-126); Anion Gap 0 mmol/L; Blood Urea Nitrogen 14 mg/dL (9-20); Calcium 7.4 mg/dL (8.4-10.2); Carbon Dioxide 30 mmol/L (22-30); Chloride 101 mmol/L (98-107); Globulin 2.4 g/dL; Glucose 124 mg/dL (74-99); Magnesium 1.8 mg/dL (1.6-2.3); Non-African American GFR(CKD) >90 (>60 ml/min/1.73 sqM); Phosphorus 3.8 mg/dL (2.5-4.5); Sodium 131 mmol/L (137-145); Total Bilirubin 0.6 mg/dL (0.2-1.3); Total Protein 4.1 g/dL (6.3-8.2)
[2024-01-23 10:37] LABS: Basophils # (A) 0.03 X 10*3/uL (0.00-0.10); Basophils % (A) 0.2 %; Eosinophils # (A) 0.03 X 10*3/uL (0.04-0.35); Eosinophils % (A) 0.2 %; HCT 21.5 % (39.6-50.0); Lymphocytes # (A) 0.81 X 10*3/uL (0.90-5.00); MCH 22.2 pg (27.0-32.0); MCHC 32.6 g/dL (32.0-37.0); Mean Platelet Volume 9.7 FL (9.5-12.2); Monocytes # (A) 1.04 X 10*3/uL (0.20-1.00); Monocytes % (A) 7.7 %; NRBC Per 100 WBC 0 X 10*3/uL (0.00-0.01); Neutrophils # (A) 11.45 X 10*3/uL (1.80-7.70); Neutrophils % (A) 84.8 %; Platelet Count 598 X 10*3/uL (140-440); RBC 3.16 X 10*6/uL (4.40-5.60); RDW 15.9 % (11.5-14.5); WBC 13.51 X 10*3/uL (4.50-10.00)
[2024-01-23 11:28] LABS: Glucose,Whole Blood 150 mg/dL (70-110)
--- NOTE | 2024-01-23 13:36 | P.PN ---
Subjective Progress Note Date: 01/23/24 Principal diagnosis: Small bowel perforation Patient sitting up in the chair today. Says his pain is improved from yesterday. Passing flatus. Last bowel movement yesterday. Tolerating full liquids. No nausea or vomiting. Still with significant scrotal edema. Today's hemoglobin 7.0. Denies rectal bleeding or melena. Objective - Vital Signs Vital signs: Vital Signs Temp 98.4 F 01/23/24 07:14 Pulse 80 01/23/24 07:14 Resp 16 01/23/24 07:14 BP 133/81 01/23/24 07:14 Pulse Ox 94 L 01/23/24 07:14 FiO2 Intake & Output 01/22/24 01/23/24 01/23/24 18:59 06:59 18:59 Intake Total 1299 120 Output Total 969 896 6406 Balance -900 499 -1880 Intake: Intake, IV Titration 1029 Amount Sodium Acetate 40 meq 1029 Potassium Acetate 10 meq Magnesium Sulfate gm 1 gm Sodium Phosphate 6 mmol In Amino Acid 5%-D20w+ Lytes*E* 1,000 ml @ 60 mls/hr IV .BY DURATION [facility] Rx#:[id number] Oral 270 120 Output: Urine [phone] Other: Voiding Method Indwelling Catheter # Bowel Movements 1 - Exam Abdomen: Soft, nondistended, mild tenderness, Prevena dressing in place - Labs CBC & Chem 7: 01/23/24 07:24 01/23/24 07:24 Labs: Abnormal Lab Results - Last 24 Hours (Table) 01/22/24 01/22/24 01/22/24 Range/Units 16:13 16:25 16:34 WBC (4.50-10.00) X 10*3/uL RBC (4.40-5.60) X 10*6/uL Hgb (13.0-17.0) g/dL Hct (39.6-50.0) % MCV (80.0-97.0) FL MCH (27.0-32.0) pg RDW (11.5-14.5) % Plt Count (140-440) X 10*3/uL Immature Gran # (0.00-0.04) X 10*3/uL Neutrophils # (1.80-7.70) X 10*3/uL Lymphocytes # (0.90-5.00) X 10*3/uL Monocytes # (0.20-1.00) X 10*3/uL Eosinophils # (0.04-0.35) X 10*3/uL Sodium (137-145) mmol/L Creatinine (0.66-1.25) mg/dL Glucose (74-99) mg/dL POC Glucose (mg/dL) >600 H* 252 H 165 H (70-110) mg/dL Calcium (8.4-10.2) mg/dL AST (17-59) U/L Alkaline Phosphatase (38-126) U/L Total Protein (6.3-8.2) g/dL Albumin (3.5-5.0) g/dL 01/22/24 01/23/24 01/23/24 Range/Units 19:59 01:57 05:59 WBC (4.50-10.00) X 10*3/uL RBC (4.40-5.60) X 10*6/uL Hgb (13.0-17.0) g/dL Hct (39.6-50.0) % MCV (80.0-97.0) FL MCH (27.0-32.0) pg RDW (11.5-14.5) % Plt Count (140-440) X 10*3/uL Immature Gran # (0.00-0.04) X 10*3/uL Neutrophils # (1.80-7.70) X 10*3/uL Lymphocytes # (0.90-5.00) X 10*3/uL Monocytes # (0.20-1.00) X 10*3/uL Eosinophils # (0.04-0.35) X 10*3/uL Sodium (137-145) mmol/L Creatinine (0.66-1.25) mg/dL Glucose (74-99) mg/dL POC Glucose (mg/dL) 142 H 127 H 128 H (70-110) mg/dL Calcium (8.4-10.2) mg/dL AST (17-59) U/L Alkaline Phosphatase (38-126) U/L Total Protein (6.3-8.2) g/dL Albumin (3.5-5.0) g/dL 06/28/24 06/28/24 06/28/24 Range/Units 07:24 07:24 11:23 WBC 13.51 H (4.50-10.00) X 10*3/uL RBC 3.16 L (4.40-5.60) X 10*6/uL Hgb 7.0 L (13.0-17.0) g/dL Hct 21.5 L (39.6-50.0) % MCV 68.0 L (80.0-97.0) FL MCH 22.2 L (27.0-32.0) pg RDW 15.9 H (11.5-14.5) % Plt Count 598 H (140-440) X 10*3/uL Immature Gran # 0.15 H (0.00-0.04) X 10*3/uL Neutrophils # 11.45 H (1.80-7.70) X 10*3/uL Lymphocytes # 0.81 L (0.90-5.00) X 10*3/uL Monocytes # 1.04 H (0.20-1.00) X 10*3/uL Eosinophils # 0.03 L (0.04-0.35) X 10*3/uL Sodium 131 L (137-145) mmol/L Creatinine 0.40 L (0.66-1.25) mg/dL Glucose 124 H (74-99) mg/dL POC Glucose (mg/dL) 150 H (70-110) mg/dL Calcium 7.4 L (8.4-10.2) mg/dL AST 14 L (17-59) U/L Alkaline Phosphatase 235 H (38-126) U/L Total Protein 4.1 L (6.3-8.2) g/dL Albumin 1.7 L (3.5-5.0) g/dL Assessment and Plan (1) Abdominal pain Narrative/Plan: Patient continues to slowly improve. Advance diet to regular tomorrow. Continue TPN today. Ambulate. Keep Sandoval in place given scrotal edema. Current Visit: Yes Status: Acute Code(s): R10.9 - UNSPECIFIED ABDOMINAL PAIN SNOMED Code(s): 22342951
[2024-01-23 16:39] LABS: Glucose,Whole Blood 165 mg/dL (70-110)
--- NOTE | 2024-01-23 18:07 | P.PN ---
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 Patient also has a history of alcohol abuse and is a former smoker. Patient was recently admitted to the hospital from October 07 through November 13 secondary to an ileus and small bowel obstruction. Patient underwent laparotomy with lysis of adhesions for over 2 hours and excision of small bowel tumor x 3 closure of decompressive enterostomy partial omentectomy drainage of abdominal ascites 2 L underwent the surgery on October 16, 2023. Patient had an extensive hospital stay on to have Enterococcus and MRSA in the abdominal wound from the Homero-Dalton drain. He was discharged with IV antibiotics. Patient returns to the hospital secondary to 2-day complaints of abdominal pain and KUB x-ray initially showed dilated bowel loops with air fluid levels partial obstruction versus severe ileus. Follow up abdominal pelvis CT was done revealing persistent dilated fluid-filled distal small bowel and at least proximal colonic loops. Colonic obstruction is suspected cannot exclude ischemia or pneumatosis particularly the right colon. Advise lactic acid correlation advised urgent surgical evaluation. Patient's white blood cell count is normal at 9.2, hemoglobin 12.5, sodium 133, potassium 2.7, BUN 15, creatinine 0.53, magnesium 1.5, alk phos 220. Urinalysis is showing 1+ protein, greater than 182 RBCs, rare bacteria. He was admitted to the hospital for general surgery consultation patient is on IV fluids and receiving IV pain medication. 01/17/2024 Patient seen in follow up for Small bowel obstruction due to adhesive band disease, epigastrium --Large bowel obstruction due to internal hernia, transverse colon --Severe protein malnutrition -Continue NG tube-LIS -NPO -Continue pain management, toradol added -Continue TPN for now until diet is able to be advanced -Encourage patient to use incentive spirometer -Encourage patient to increase activity level -DVT prophylaxis subcu heparin and GI prophylaxis Protonix 01/18/2024 Patient is seen and evaluated in room at bedside Sleepy but easily arousable; patient reports no bowel movement or flatus Vital signs are reviewed temperature 98.7, pulse 60, respiration 18 and blood pressure 156/91 Lab review shows sodium of 128, potassium of 4.2, BUNs/creatinine of 11/0.46 and blood glucose of 126 General surgery following and recommending to continue with TPN and gastric decompression till bowel function returns Increase activity as recommended 01/19/24 NG tube and there is 330 mL of clear discharge Patient remains n.p.o., he does not feel hungry He is getting Dilaudid for pain control, his main symptom is abdominal pain No bowel movement, no flatus TPN is running Patient urine is running and Sandoval catheter in place 01/20/2024 Patient is awake sitting in chair NG tube in place No bowel movement Vertical surgical wound with wound VAC in place No chest pain or dyspnea 01/21/2024 Sitting in chair with no distress Abdominal pain and tenderness is controlled He is passing gas today Has bilateral pitting leg edema 01/22/2024 Patient states he has having bowel movement today, he states he has the second bowel movement today. Patient was started on clear liquid diet and he tolerates that well so far No chest pain or dyspnea 01/23/2024 Patient looks comfortable His pain looks controlled No evidence of overt bleeding however his hemoglobin dropped yesterday) 7 down to 7 today. He was started on Toradol yesterday and we will discontinue that. Continue with Protonix and monitor hemoglobin tomorrow Upon patient request I have a lengthy discussion with the patient over the phone discussing the case and management and also we had a lot of emphasis about discharge planning and the importance of outpatient follow-up. All questions answered to their satisfaction. Objective - Vital Signs Vital signs: Vital Signs Temp 98.4 F 01/23/24 07:14 Pulse 80 01/23/24 07:14 Resp 16 01/23/24 07:14 BP 133/81 01/23/24 07:14 Pulse Ox 94 L 01/23/24 07:14 FiO2 Intake & Output 01/22/24 01/23/24 01/23/24 18:59 06:59 18:59 Intake Total 1299 120 Output Total 093 780 4744 Balance -900 499 -1880 Intake: Intake, IV Titration 1029 Amount Sodium Acetate 40 meq 1029 Potassium Acetate 10 meq Magnesium Sulfate gm 1 gm Sodium Phosphate 6 mmol In Amino Acid 5%-D20w+ Lytes*E* 1,000 ml @ 60 mls/hr IV .BY DURATION [facility] Rx#:[id number] Oral 270 120 Output: Urine 211 313 6044 Other: Voiding Method Indwelling Catheter # Bowel Movements 1 - Exam GENERAL: The patient is alert and oriented x3, not in any acute distress. Well developed, well nourished. HEENT: Pupils are round and equally reacting to light. EOMI. No scleral icterus. No conjunctival pallor. Normocephalic, atraumatic. No pharyngeal erythema. No thyromegaly. CARDIOVASCULAR: S1 and S2 present. No murmurs, rubs, or gallops. PULMONARY: Chest is clear to auscultation, no wheezing or crackles. -ABDOMEN: Soft, mild diffuse tenderness. Bowel sounds present.. No palpable organomegaly. NG tube has been placed. Vertical midline incision with wound VAC in place MUSCULOSKELETAL: No joint swelling or deformity. EXTREMITIES: No cyanosis, clubbing, or pedal edema. NEUROLOGICAL: Gross neurological examination did not reveal any focal deficits. SKIN: No rashes. - Labs CBC & Chem 7: 01/23/24 07:24 01/23/24 07:24 Labs: Abnormal Lab Results - Last 24 Hours (Table) 01/22/24 01/22/24 01/22/24 Range/Units 16:13 16:25 16:34 WBC (4.50-10.00) X 10*3/uL RBC (4.40-5.60) X 10*6/uL Hgb (13.0-17.0) g/dL Hct (39.6-50.0) % MCV (80.0-97.0) FL MCH (27.0-32.0) pg RDW (11.5-14.5) % Plt Count (140-440) X 10*3/uL Immature Gran # (0.00-0.04) X 10*3/uL Neutrophils # (1.80-7.70) X 10*3/uL Lymphocytes # (0.90-5.00) X 10*3/uL Monocytes # (0.20-1.00) X 10*3/uL Eosinophils # (0.04-0.35) X 10*3/uL Sodium (137-145) mmol/L Creatinine (0.66-1.25) mg/dL Glucose (74-99) mg/dL POC Glucose (mg/dL) >600 H* 252 H 165 H (70-110) mg/dL Calcium (8.4-10.2) mg/dL AST (17-59) U/L Alkaline Phosphatase (38-126) U/L Total Protein (6.3-8.2) g/dL Albumin (3.5-5.0) g/dL 01/22/24 01/23/24 01/23/24 Range/Units 19:59 01:57 05:59 WBC (4.50-10.00) X 10*3/uL RBC (4.40-5.60) X 10*6/uL Hgb (13.0-17.0) g/dL Hct (39.6-50.0) % MCV (80.0-97.0) FL MCH (27.0-32.0) pg RDW (11.5-14.5) % Plt Count (140-440) X 10*3/uL Immature Gran # (0.00-0.04) X 10*3/uL Neutrophils # (1.80-7.70) X 10*3/uL Lymphocytes # (0.90-5.00) X 10*3/uL Monocytes # (0.20-1.00) X 10*3/uL Eosinophils # (0.04-0.35) X 10*3/uL Sodium (137-145) mmol/L Creatinine (0.66-1.25) mg/dL Glucose (74-99) mg/dL POC Glucose (mg/dL) 142 H 127 H 128 H (70-110) mg/dL Calcium (8.4-10.2) mg/dL AST (17-59) U/L Alkaline Phosphatase (38-126) U/L Total Protein (6.3-8.2) g/dL Albumin (3.5-5.0) g/dL 01/23/24 01/23/24 01/23/24 Range/Units 07:24 07:24 11:23 WBC 13.51 H (4.50-10.00) X 10*3/uL RBC 3.16 L (4.40-5.60) X 10*6/uL Hgb 7.0 L (13.0-17.0) g/dL Hct 21.5 L (39.6-50.0) % MCV 68.0 L (80.0-97.0) FL MCH 22.2 L (27.0-32.0) pg RDW 15.9 H (11.5-14.5) % Plt Count 598 H (140-440) X 10*3/uL Immature Gran # 0.15 H (0.00-0.04) X 10*3/uL Neutrophils # 11.45 H (1.80-7.70) X 10*3/uL Lymphocytes # 0.81 L (0.90-5.00) X 10*3/uL Monocytes # 1.04 H (0.20-1.00) X 10*3/uL Eosinophils # 0.03 L (0.04-0.35) X 10*3/uL Sodium 131 L (137-145) mmol/L Creatinine 0.40 L (0.66-1.25) mg/dL Glucose 124 H (74-99) mg/dL POC Glucose (mg/dL) 150 H (70-110) mg/dL Calcium 7.4 L (8.4-10.2) mg/dL AST 14 L (17-59) U/L Alkaline Phosphatase 235 H (38-126) U/L Total Protein 4.1 L (6.3-8.2) g/dL Albumin 1.7 L (3.5-5.0) g/dL Assessment and Plan Assessment: Acute small bowel obstruction status post expiratory laparotomy and lysis of ad ditions. Postoperative day 1 Abdominal pain chronic with sigmoid volvulus Sigmoid volvulus status post colonic decompression Anemia Abdominal distention due to. bowel obstruction improving. Hx of bowel cancer with prior resection and lysis of adhesions and prolonged hospital stay Hypokalemia due to poor oral intake supplemented with IV potassium and improved levels Hyponatremia hypovolemic Hypomagnesemia Abnormal UA due to dehydration Hx of jaw cancer with chemoradiation and trach/peg in the past Hx of pulmonary embolism Severe protein malnutrition patient will be getting PICC line for nutrition may be a candidate for PEG tube if he is not able to increase his oral intake and meet caloric needs. Iron deficiency anemia hx Hx of SVT Hx of ETOH Hx of nicotine use GI prophylaxis. On PPI. DVT prophylaxis with heparin subcu Full Code Plan: Monitor hemoglobin and transfuse for hemoglobin less than 7 Patient is status post expiratory laparotomy, lysis of additions and reduction of internal hernia and drainage of ascites. General surgery is on board. NG tube has been placed for gastric decompression. Continue with PICC line and TPN nutrition Patient was started on clear liquid diet. Continue pain management with IV dilaudid and IV toradol Continue metoprolol Recommending to hold of on norvasc at this time Repeat blood work, monitor renal function/electrolytes Continue with IV hydration and monitor sodium level. Currently on D5 half- normal saline. PT/OT consultation. Prognosis guarded due to multiple medical problems and comorbid conditions..
[2024-01-23 20:53] LABS: Glucose,Whole Blood 138 mg/dL (70-110)
[2024-01-24 02:50] LABS: Glucose,Whole Blood 104 mg/dL (70-110)
[2024-01-24 05:43] LABS: Glucose,Whole Blood 168 mg/dL (70-110)
[2024-01-24 06:38] LABS: African American GFR (CKD) >90 (>60 ml/min/1.73 sqM); Anion Gap 4 mmol/L; Blood Urea Nitrogen 13 mg/dL (9-20); Calcium 7.5 mg/dL (8.4-10.2); Carbon Dioxide 25 mmol/L (22-30); Chloride 99 mmol/L (98-107); Glucose 124 mg/dL (74-99); Magnesium 1.7 mg/dL (1.6-2.3); Non-African American GFR(CKD) >90 (>60 ml/min/1.73 sqM); Phosphorus 3.9 mg/dL (2.5-4.5); Potassium 4.2 mmol/L (3.5-5.1); Sodium 128 mmol/L (137-145)
[2024-01-24 09:26] LABS: Basophils # (A) 0.06 X 10*3/uL (0.00-0.10); Basophils % (A) 0.4 %; Eosinophils # (A) 0.03 X 10*3/uL (0.04-0.35); Eosinophils % (A) 0.2 %; HCT 21.6 % (39.6-50.0); HGB 6.8 g/dL (13.0-17.0); Lymphocytes # (A) 0.79 X 10*3/uL (0.90-5.00); Lymphocytes % (A) 4.8 %; MCHC 31.5 g/dL (32.0-37.0); MCV 69.9 FL (80.0-97.0); Mean Platelet Volume 9.7 FL (9.5-12.2); Monocytes # (A) 1.12 X 10*3/uL (0.20-1.00); Monocytes % (A) 6.8 %; NRBC Per 100 WBC 0 X 10*3/uL (0.00-0.01); Neutrophils # (A) 14.37 X 10*3/uL (1.80-7.70); Platelet Count 668 X 10*3/uL (140-440); RBC 3.09 X 10*6/uL (4.40-5.60); RDW 16.1 % (11.5-14.5); WBC 16.51 X 10*3/uL (4.50-10.00)
[2024-01-24] MEDS: MAGNESIUM SULFATE-D5W PMX 1 GM in DEXTROSE/WATER 1 100ML.BAG IVPB ONE (09:29)
[2024-01-24 11:22] LABS: Glucose,Whole Blood 160 mg/dL (70-110)
[2024-01-24 16:34] LABS: Glucose,Whole Blood 272 mg/dL (70-110)
[2024-01-24 20:36] LABS: Glucose,Whole Blood 165 mg/dL (70-110)
--- NOTE | 2024-01-24 22:06 | P.PN ---
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 Patient also has a history of alcohol abuse and is a former smoker. Patient was recently admitted to the hospital from October 07 through November 13 secondary to an ileus and small bowel obstruction. Patient underwent laparotomy with lysis of adhesions for over 2 hours and excision of small bowel tumor x 3 closure of decompressive enterostomy partial omentectomy drainage of abdominal ascites 2 L underwent the surgery on October 16, 2023. Patient had an extensive hospital stay on to have Enterococcus and MRSA in the abdominal wound from the Homero-Dalton drain. He was discharged with IV antibiotics. Patient returns to the hospital secondary to 2-day complaints of abdominal pain and KUB x-ray initially showed dilated bowel loops with air fluid levels partial obstruction versus severe ileus. Follow up abdominal pelvis CT was done revealing persistent dilated fluid-filled distal small bowel and at least proximal colonic loops. Colonic obstruction is suspected cannot exclude ischemia or pneumatosis particularly the right colon. Advise lactic acid correlation advised urgent surgical evaluation. Patient's white blood cell count is normal at 9.2, hemoglobin 12.5, sodium 133, potassium 2.7, BUN 15, creatinine 0.53, magnesium 1.5, alk phos 220. Urinalysis is showing 1+ protein, greater than 182 RBCs, rare bacteria. He was admitted to the hospital for general surgery consultation patient is on IV fluids and receiving IV pain medication. 01/17/2024 Patient seen in follow up for Small bowel obstruction due to adhesive band disease, epigastrium --Large bowel obstruction due to internal hernia, transverse colon --Severe protein malnutrition -Continue NG tube-LIS -NPO -Continue pain management, toradol added -Continue TPN for now until diet is able to be advanced -Encourage patient to use incentive spirometer -Encourage patient to increase activity level -DVT prophylaxis subcu heparin and GI prophylaxis Protonix 01/18/2024 Patient is seen and evaluated in room at bedside Sleepy but easily arousable; patient reports no bowel movement or flatus Vital signs are reviewed temperature 98.7, pulse 60, respiration 18 and blood pressure 156/91 Lab review shows sodium of 128, potassium of 4.2, BUNs/creatinine of 11/0.46 and blood glucose of 126 General surgery following and recommending to continue with TPN and gastric decompression till bowel function returns Increase activity as recommended 01/19/24 NG tube and there is 330 mL of clear discharge Patient remains n.p.o., he does not feel hungry He is getting Dilaudid for pain control, his main symptom is abdominal pain No bowel movement, no flatus TPN is running Patient urine is running and Sandoval catheter in place 01/20/2024 Patient is awake sitting in chair NG tube in place No bowel movement Vertical surgical wound with wound VAC in place No chest pain or dyspnea 01/21/2024 Sitting in chair with no distress Abdominal pain and tenderness is controlled He is passing gas today Has bilateral pitting leg edema 01/22/2024 Patient states he has having bowel movement today, he states he has the second bowel movement today. Patient was started on clear liquid diet and he tolerates that well so far No chest pain or dyspnea 01/23/2024 Patient looks comfortable His pain looks controlled No evidence of overt bleeding however his hemoglobin dropped yesterday) 7 down to 7 today. He was started on Toradol yesterday and we will discontinue that. Continue with Protonix and monitor hemoglobin tomorrow Upon patient request I have a lengthy discussion with the patient over the phone discussing the case and management and also we had a lot of emphasis about discharge planning and the importance of outpatient follow-up. All questions answered to their satisfaction. 01/24/2024 Patient tolerates diet and having bowel movement Diet advance per surgery team and well-tolerated Abdominal pain controlled but patient still on pain pump. We will discuss with surgery team discontinuing of the pain pump His hemoglobin today dropped from 7 down to 6.8, 1 unit of blood transfusion is given. Still has mild leukocytosis Sodium level 128 Objective - Vital Signs Vital signs: Vital Signs Temp 98.6 F 01/24/24 20:47 Pulse 85 01/24/24 20:47 Resp 18 01/24/24 20:47 BP 115/72 01/24/24 20:47 Pulse Ox 100 01/24/24 20:47 FiO2 Intake & Output 01/24/24 01/24/24 01/25/24 06:59 18:59 06:59 Intake Total 2700 0 286 Output Total 1640 Balance 2700 -1640 286 Intake: Oral 2700 Blood Product 0 286 Rc Pheresis 2 As3 Unit 0 286 [id number] Output: Urine 1640 Other: Voiding Method Indwelling Catheter Indwelling Catheter - Exam GENERAL: The patient is alert and oriented x3, not in any acute distress. Well developed, well nourished. HEENT: Pupils are round and equally reacting to light. EOMI. No scleral icterus. No conjunctival pallor. Normocephalic, atraumatic. No pharyngeal erythema. No thyromegaly. CARDIOVASCULAR: S1 and S2 present. No murmurs, rubs, or gallops. PULMONARY: Chest is clear to auscultation, no wheezing or crackles. -ABDOMEN: Soft, mild diffuse tenderness. Bowel sounds present.. No palpable organomegaly. NG tube has been placed. Vertical midline incision with wound VAC in place MUSCULOSKELETAL: No joint swelling or deformity. EXTREMITIES: No cyanosis, clubbing, or pedal edema. NEUROLOGICAL: Gross neurological examination did not reveal any focal deficits. SKIN: No rashes. - Labs CBC & Chem 7: 01/24/24 05:58 01/24/24 05:58 Labs: Abnormal Lab Results - Last 24 Hours (Table) 01/24/24 01/24/24 01/24/24 Range/Units 05:41 05:58 05:58 WBC 16.51 H (4.50-10.00) X 10*3/uL RBC 3.09 L (4.40-5.60) X 10*6/uL Hgb 6.8 A* (13.0-17.0) g/dL Hct 21.6 L (39.6-50.0) % MCV 69.9 L (80.0-97.0) FL MCH 22.0 L (27.0-32.0) pg MCHC 31.5 L (32.0-37.0) g/dL RDW 16.1 H (11.5-14.5) % Plt Count 668 H (140-440) X 10*3/uL Immature Gran # 0.14 H (0.00-0.04) X 10*3/uL Neutrophils # 14.37 H (1.80-7.70) X 10*3/uL Lymphocytes # 0.79 L (0.90-5.00) X 10*3/uL Monocytes # 1.12 H (0.20-1.00) X 10*3/uL Eosinophils # 0.03 L (0.04-0.35) X 10*3/uL Sodium 128 L (137-145) mmol/L Creatinine 0.38 L (0.66-1.25) mg/dL Glucose 124 H (74-99) mg/dL POC Glucose (mg/dL) 168 H (70-110) mg/dL Calcium 7.5 L (8.4-10.2) mg/dL Crossmatch 01/24/24 01/24/24 01/24/24 Range/Units 11:21 14:26 16:32 WBC (4.50-10.00) X 10*3/uL RBC (4.40-5.60) X 10*6/uL Hgb (13.0-17.0) g/dL Hct (39.6-50.0) % MCV (80.0-97.0) FL MCH (27.0-32.0) pg MCHC (32.0-37.0) g/dL RDW (11.5-14.5) % Plt Count (140-440) X 10*3/uL Immature Gran # (0.00-0.04) X 10*3/uL Neutrophils # (1.80-7.70) X 10*3/uL Lymphocytes # (0.90-5.00) X 10*3/uL Monocytes # (0.20-1.00) X 10*3/uL Eosinophils # (0.04-0.35) X 10*3/uL Sodium (137-145) mmol/L Creatinine (0.66-1.25) mg/dL Glucose (74-99) mg/dL POC Glucose (mg/dL) 160 H 272 H (70-110) mg/dL Calcium (8.4-10.2) mg/dL Crossmatch See Detail 01/24/24 Range/Units 20:34 WBC (4.50-10.00) X 10*3/uL RBC (4.40-5.60) X 10*6/uL Hgb (13.0-17.0) g/dL Hct (39.6-50.0) % MCV (80.0-97.0) FL MCH (27.0-32.0) pg MCHC (32.0-37.0) g/dL RDW (11.5-14.5) % Plt Count (140-440) X 10*3/uL Immature Gran # (0.00-0.04) X 10*3/uL Neutrophils # (1.80-7.70) X 10*3/uL Lymphocytes # (0.90-5.00) X 10*3/uL Monocytes # (0.20-1.00) X 10*3/uL Eosinophils # (0.04-0.35) X 10*3/uL Sodium (137-145) mmol/L Creatinine (0.66-1.25) mg/dL Glucose (74-99) mg/dL POC Glucose (mg/dL) 165 H (70-110) mg/dL Calcium (8.4-10.2) mg/dL Crossmatch Assessment and Plan Assessment: Acute small bowel obstruction status post expiratory laparotomy and lysis of additions. Postoperative day 1 Abdominal pain chronic with sigmoid volvulus Sigmoid volvulus status post colonic decompression Anemia Abdominal distention due to. bowel obstruction improving. Hx of bowel cancer with prior resection and lysis of adhesions and prolonged hospital stay Hypokalemia due to poor oral intake supplemented with IV potassium and improved levels Hyponatremia hypovolemic Hypomagnesemia Abnormal UA due to dehydration Hx of jaw cancer with chemoradiation and trach/peg in the past Hx of pulmonary embolism Severe protein malnutrition patient will be getting PICC line for nutrition may be a candidate for PEG tube if he is not able to increase his oral intake and meet caloric needs. Iron deficiency anemia hx Hx of SVT Hx of ETOH Hx of nicotine use GI prophylaxis. On PPI. DVT prophylaxis with heparin subcu Full Code Plan: Monitor hemoglobin and transfuse for hemoglobin less than 7 Patient is status post expiratory laparotomy, lysis of additions and reduction of internal hernia and drainage of ascites. General surgery is on board. NG tube has been placed for gastric decompression. Continue with PICC line and TPN nutrition Patient was started on clear liquid diet. Continue pain management with IV dilaudid and IV toradol Continue metoprolol Recommending to hold of on norvasc at this time Repeat blood work, monitor renal function/electrolytes Continue with IV hydration and monitor sodium level. Currently on D5 half- normal saline. PT/OT consultation. Prognosis guarded due to multiple medical problems and comorbid conditions..
--- NOTE | 2024-01-24 22:08 | P.PN ---
Subjective Patient seen and evaluated at bedside. Admits to improved abdominal pain, denies nausea or vomiting. Objective - Vital Signs Vital signs: Vital Signs Temp 98.6 F 01/24/24 20:47 Pulse 85 01/24/24 20:47 Resp 18 01/24/24 20:47 BP 115/72 01/24/24 20:47 Pulse Ox 100 01/24/24 20:47 FiO2 Intake & Output 01/24/24 01/24/24 01/25/24 06:59 18:59 06:59 Intake Total 2700 0 286 Output Total 1640 Balance 2700 -1640 286 Intake: Oral 2700 Blood Product 0 286 Rc Pheresis 2 As3 Unit 0 286 [id number] Output: Urine 1640 Other: Voiding Method Indwelling Catheter Indwelling Catheter - Exam gen: nad cv: rrr pul: non labored breathing abd: soft, min tender to palpation, surgical c/d/i - Labs CBC & Chem 7: 01/24/24 05:58 01/24/24 05:58 Labs: Abnormal Lab Results - Last 24 Hours (Table) 01/24/24 01/24/24 01/24/24 Range/Units 05:41 05:58 05:58 WBC 16.51 H (4.50-10.00) X 10*3/uL RBC 3.09 L (4.40-5.60) X 10*6/uL Hgb 6.8 A* (13.0-17.0) g/dL Hct 21.6 L (39.6-50.0) % MCV 69.9 L (80.0-97.0) FL MCH 22.0 L (27.0-32.0) pg MCHC 31.5 L (32.0-37.0) g/dL RDW 16.1 H (11.5-14.5) % Plt Count 668 H (140-440) X 10*3/uL Immature Gran # 0.14 H (0.00-0.04) X 10*3/uL Neutrophils # 14.37 H (1.80-7.70) X 10*3/uL Lymphocytes # 0.79 L (0.90-5.00) X 10*3/uL Monocytes # 1.12 H (0.20-1.00) X 10*3/uL Eosinophils # 0.03 L (0.04-0.35) X 10*3/uL Sodium 128 L (137-145) mmol/L Creatinine 0.38 L (0.66-1.25) mg/dL Glucose 124 H (74-99) mg/dL POC Glucose (mg/dL) 168 H (70-110) mg/dL Calcium 7.5 L (8.4-10.2) mg/dL Crossmatch 01/24/24 01/24/24 01/24/24 Range/Units 11:21 14:26 16:32 WBC (4.50-10.00) X 10*3/uL RBC (4.40-5.60) X 10*6/uL Hgb (13.0-17.0) g/dL Hct (39.6-50.0) % MCV (80.0-97.0) FL MCH (27.0-32.0) pg MCHC (32.0-37.0) g/dL RDW (11.5-14.5) % Plt Count (140-440) X 10*3/uL Immature Gran # (0.00-0.04) X 10*3/uL Neutrophils # (1.80-7.70) X 10*3/uL Lymphocytes # (0.90-5.00) X 10*3/uL Monocytes # (0.20-1.00) X 10*3/uL Eosinophils # (0.04-0.35) X 10*3/uL Sodium (137-145) mmol/L Creatinine (0.66-1.25) mg/dL Glucose (74-99) mg/dL POC Glucose (mg/dL) 160 H 272 H (70-110) mg/dL Calcium (8.4-10.2) mg/dL Crossmatch See Detail 01/24/24 Range/Units 20:34 WBC (4.50-10.00) X 10*3/uL RBC (4.40-5.60) X 10*6/uL Hgb (13.0-17.0) g/dL Hct (39.6-50.0) % MCV (80.0-97.0) FL MCH (27.0-32.0) pg MCHC (32.0-37.0) g/dL RDW (11.5-14.5) % Plt Count (140-440) X 10*3/uL Immature Gran # (0.00-0.04) X 10*3/uL Neutrophils # (1.80-7.70) X 10*3/uL Lymphocytes # (0.90-5.00) X 10*3/uL Monocytes # (0.20-1.00) X 10*3/uL Eosinophils # (0.04-0.35) X 10*3/uL Sodium (137-145) mmol/L Creatinine (0.66-1.25) mg/dL Glucose (74-99) mg/dL POC Glucose (mg/dL) 165 H (70-110) mg/dL Calcium (8.4-10.2) mg/dL Crossmatch Assessment and Plan Assessment: 43 yo male s/p small bowel resection -tolerating diet -pain management -stable vitals/labs Time with Patient: Less than 30
[2024-01-25 01:58] LABS: Glucose,Whole Blood 163 mg/dL (70-110)
[2024-01-25 06:24] LABS: Glucose,Whole Blood 115 mg/dL (70-110)
[2024-01-25 08:48] LABS: African American GFR (CKD) >90 (>60 ml/min/1.73 sqM); Anion Gap 5 mmol/L; Blood Urea Nitrogen 15 mg/dL (9-20); Calcium 7.6 mg/dL (8.4-10.2); Carbon Dioxide 26 mmol/L (22-30); Chloride 100 mmol/L (98-107); Glucose 92 mg/dL (74-99); Magnesium 1.9 mg/dL (1.6-2.3); Non-African American GFR(CKD) >90 (>60 ml/min/1.73 sqM); Phosphorus 4.5 mg/dL (2.5-4.5); Potassium 4.8 mmol/L (3.5-5.1); Sodium 131 mmol/L (137-145)
[2024-01-25 11:39] LABS: Glucose,Whole Blood 206 mg/dL (70-110)
--- NOTE | 2024-01-25 14:11 | P.PN ---
Subjective Progress Note Date: 01/25/24 Principal diagnosis: Small bowel perforation Patient doing well today. Tolerating diet. No nausea or vomiting. Having bowel function. Objective - Vital Signs Vital signs: Vital Signs Temp 97.9 F 01/25/24 13:04 Pulse 74 01/25/24 13:04 Resp 17 01/25/24 13:04 BP 115/68 01/25/24 13:04 Pulse Ox 96 01/25/24 13:04 FiO2 Intake & Output 01/24/24 01/25/24 01/25/24 18:59 06:59 18:59 Intake Total 0 286 Output Total 1640 1400 Balance -1640 -1114 Weight 55.3 kg Intake: Blood Product 0 286 Rc Pheresis 2 As3 Unit 0 286 [id number] Output: Urine 1640 1400 Other: Voiding Method Indwelling Catheter Indwelling Catheter Indwelling Catheter - Exam Abdomen: Soft, nondistended, Prevena dressing removed and new dressing applied. The battery had run out of the Prevena. Patient scrotal edema is much improved. - Labs CBC & Chem 7: 01/24/24 05:58 01/25/24 06:21 Labs: Abnormal Lab Results - Last 24 Hours (Table) 01/24/24 01/24/24 01/24/24 Range/Units 14:26 16:32 20:34 Sodium (137-145) mmol/L Creatinine (0.66-1.25) mg/dL POC Glucose (mg/dL) 272 H 165 H (70-110) mg/dL Calcium (8.4-10.2) mg/dL Crossmatch See Detail 01/25/24 01/25/24 01/25/24 Range/Units 01:57 06:21 06:23 Sodium 131 L (137-145) mmol/L Creatinine 0.51 L (0.66-1.25) mg/dL POC Glucose (mg/dL) 163 H 115 H (70-110) mg/dL Calcium 7.6 L (8.4-10.2) mg/dL Crossmatch 01/25/24 Range/Units 11:37 Sodium (137-145) mmol/L Creatinine (0.66-1.25) mg/dL POC Glucose (mg/dL) 206 H (70-110) mg/dL Calcium (8.4-10.2) mg/dL Crossmatch Assessment and Plan (1) Abdominal pain Narrative/Plan: Patient doing well today. Remove Prevena dressing. Remove Sandoval catheter. Possible discharge tomorrow if doing well. Current Visit: Yes Status: Acute Code(s): R10.9 - UNSPECIFIED ABDOMINAL PAIN SNOMED Code(s): 66344517
[2024-01-25] MEDS: HYDROmorphone 0.5 MG/0.5 ML SYRINGE IVP PRN (15:23)
[2024-01-25 16:28] LABS: Glucose,Whole Blood 114 mg/dL (70-110)
[2024-01-25 20:42] LABS: Glucose,Whole Blood 170 mg/dL (70-110)
[2024-01-25 20:48] LABS: Anisocytosis Slight; Basophils # (A) 0.1 k/uL (0-0.2); Basophils % (A) 0 %; Eosinophils % (A) 0 %; HCT 32.8 % (39.0-53.0); HGB 9.9 gm/dL (13.0-17.5); Hypochromasia Slight; Lymphocytes # (A) 0.7 k/uL (1.0-4.8); Lymphocytes % (A) 5 %; MCH 23.5 pg (25.0-35.0); MCHC 30.2 g/dL (31.0-37.0); MCV 77.8 fL (80.0-100.0); Mean Platelet Volume 8.3; Microcytosis Slight; Monocytes # (A) 0.8 k/uL (0-1.0); Monocytes % (A) 5 %; Neutrophils # (A) 14.7 k/uL (1.3-7.7); Neutrophils % (A) 89 %; Platelet Count 674 k/uL (150-450); RBC 4.22 m/uL (4.30-5.90); RDW 17.5 % (11.5-15.5); WBC 16.5 k/uL (3.8-10.6)
--- NOTE | 2024-01-25 21:32 | P.PN ---
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 Patient also has a history of alcohol abuse and is a former smoker. Patient was recently admitted to the hospital from October 07 through November 13 secondary to an ileus and small bowel obstruction. Patient underwent laparotomy with lysis of adhesions for over 2 hours and excision of small bowel tumor x 3 closure of decompressive enterostomy partial omentectomy drainage of abdominal ascites 2 L underwent the surgery on October 16, 2023. Patient had an extensive hospital stay on to have Enterococcus and MRSA in the abdominal wound from the Homero-Dalton drain. He was discharged with IV antibiotics. Patient returns to the hospital secondary to 2-day complaints of abdominal pain and KUB x-ray initially showed dilated bowel loops with air fluid levels partial obstruction versus severe ileus. Follow up abdominal pelvis CT was done revealing persistent dilated fluid-filled distal small bowel and at least proximal colonic loops. Colonic obstruction is suspected cannot exclude ischemia or pneumatosis particularly the right colon. Advise lactic acid correlation advised urgent surgical evaluation. Patient's white blood cell count is normal at 9.2, hemoglobin 12.5, sodium 133, potassium 2.7, BUN 15, creatinine 0.53, magnesium 1.5, alk phos 220. Urinalysis is showing 1+ protein, greater than 182 RBCs, rare bacteria. He was admitted to the hospital for general surgery consultation patient is on IV fluids and receiving IV pain medication. 01/17/2024 Patient seen in follow up for Small bowel obstruction due to adhesive band disease, epigastrium --Large bowel obstruction due to internal hernia, transverse colon --Severe protein malnutrition -Continue NG tube-LIS -NPO -Continue pain management, toradol added -Continue TPN for now until diet is able to be advanced -Encourage patient to use incentive spirometer -Encourage patient to increase activity level -DVT prophylaxis subcu heparin and GI prophylaxis Protonix 01/18/2024 Patient is seen and evaluated in room at bedside Sleepy but easily arousable; patient reports no bowel movement or flatus Vital signs are reviewed temperature 98.7, pulse 60, respiration 18 and blood pressure 156/91 Lab review shows sodium of 128, potassium of 4.2, BUNs/creatinine of 11/0.46 and blood glucose of 126 General surgery following and recommending to continue with TPN and gastric decompression till bowel function returns Increase activity as recommended 01/19/24 NG tube and there is 330 mL of clear discharge Patient remains n.p.o., he does not feel hungry He is getting Dilaudid for pain control, his main symptom is abdominal pain No bowel movement, no flatus TPN is running Patient urine is running and Sandoval catheter in place 01/20/2024 Patient is awake sitting in chair NG tube in place No bowel movement Vertical surgical wound with wound VAC in place No chest pain or dyspnea 01/21/2024 Sitting in chair with no distress Abdominal pain and tenderness is controlled He is passing gas today Has bilateral pitting leg edema 01/22/2024 Patient states he has having bowel movement today, he states he has the second bowel movement today. Patient was started on clear liquid diet and he tolerates that well so far No chest pain or dyspnea 01/23/2024 Patient looks comfortable His pain looks controlled No evidence of overt bleeding however his hemoglobin dropped yesterday) 7 down to 7 today. He was started on Toradol yesterday and we will discontinue that. Continue with Protonix and monitor hemoglobin tomorrow Upon patient request I have a lengthy discussion with the patient over the phone discussing the case and management and also we had a lot of emphasis about discharge planning and the importance of outpatient follow-up. All questions answered to their satisfaction. 01/24/2024 Patient tolerates diet and having bowel movement Diet advance per surgery team and well-tolerated Abdominal pain controlled but patient still on pain pump. We will discuss with surgery team discontinuing of the pain pump His hemoglobin today dropped from 7 down to 6.8, 1 unit of blood transfusion is given. Still has mild leukocytosis Sodium level 128 01/25/2024 Patient is tolerates diet well and he has good bowel movement He looks calm and pain control However he still getting pain pump I talked with the patient we need to discontinue the pain pump prior to discharge. Surgery team are following as well Sodium improved to 131 Hemoglobin improved to 9.9 after 1 unit of blood transfusion yesterday for severe anemia 6.8 At home he is not on blood thinner or aspirin Objective - Vital Signs Vital signs: Vital Signs Temp 98.9 F 01/25/24 13:04 Pulse 86 01/25/24 13:04 Resp 18 01/25/24 13:04 BP 146/84 01/25/24 13:04 Pulse Ox 97 01/25/24 13:04 FiO2 Intake & Output 01/24/24 01/25/24 01/25/24 18:59 06:59 18:59 Intake Total 0 286 Output Total 1640 1400 250 Balance -1640 -1114 -250 Weight 55.3 kg Intake: Blood Product 0 286 Rc Pheresis 2 As3 Unit 0 286 [id number] Output: Urine 1640 1400 250 Other: Voiding Method Indwelling Catheter Indwelling Catheter Indwelling Catheter # Bowel Movements 1 - Exam GENERAL: The patient is alert and oriented x3, not in any acute distress. Well developed, well nourished. HEENT: Pupils are round and equally reacting to light. EOMI. No scleral icterus. No conjunctival pallor. Normocephalic, atraumatic. No pharyngeal erythema. No thyromegaly. CARDIOVASCULAR: S1 and S2 present. No murmurs, rubs, or gallops. PULMONARY: Chest is clear to auscultation, no wheezing or crackles. -ABDOMEN: Soft, mild diffuse tenderness. Bowel sounds present.. No palpable organomegaly. NG tube has been placed. Vertical midline incision with wound VAC in place MUSCULOSKELETAL: No joint swelling or deformity. EXTREMITIES: No cyanosis, clubbing, or pedal edema. NEUROLOGICAL: Gross neurological examination did not reveal any focal deficits. SKIN: No rashes. - Labs CBC & Chem 7: 01/25/24 19:46 01/25/24 06:21 Labs: Abnormal Lab Results - Last 24 Hours (Table) 01/24/24 01/24/24 01/25/24 Range/Units 14:26 20:34 01:57 Sodium (137-145) mmol/L Creatinine (0.66-1.25) mg/dL POC Glucose (mg/dL) 165 H 163 H (70-110) mg/dL Calcium (8.4-10.2) mg/dL Crossmatch See Detail 01/25/24 01/25/24 01/25/24 Range/Units 06:21 06:23 11:37 Sodium 131 L (137-145) mmol/L Creatinine 0.51 L (0.66-1.25) mg/dL POC Glucose (mg/dL) 115 H 206 H (70-110) mg/dL Calcium 7.6 L (8.4-10.2) mg/dL Crossmatch 01/25/24 Range/Units 16:26 Sodium (137-145) mmol/L Creatinine (0.66-1.25) mg/dL POC Glucose (mg/dL) 114 H (70-110) mg/dL Calcium (8.4-10.2) mg/dL Crossmatch Assessment and Plan Assessment: Acute small bowel obstruction status post expiratory laparotomy and lysis of additions. Postoperative day 1 Abdominal pain chronic with sigmoid volvulus Sigmoid volvulus status post colonic decompression Anemia Abdominal distention due to. bowel obstruction improving. Hx of bowel cancer with prior resection and lysis of adhesions and prolonged hospital stay Hypokalemia due to poor oral intake supplemented with IV potassium and improved levels Hyponatremia hypovolemic Hypomagnesemia Abnormal UA due to dehydration Hx of jaw cancer with chemoradiation and trach/peg in the past Hx of pulmonary embolism Severe protein malnutrition patient will be getting PICC line for nutrition may be a candidate for PEG tube if he is not able to increase his oral intake and meet caloric needs. Iron deficiency anemia hx Hx of SVT Hx of ETOH Hx of nicotine use GI prophylaxis. On PPI. DVT prophylaxis with heparin subcu Full Code Plan: Monitor hemoglobin and transfuse for hemoglobin less than 7. Patient is status post expiratory laparotomy, lysis of additions and reduction o f internal hernia and drainage of ascites. General surgery is on board. Patient tolerates diet Has good bowel movement Management of pain pump is deferred to surgery team Continue with IV hydration and monitor sodium level. PT/OT consultation. Prognosis guarded due to multiple medical problems and comorbid conditions..
[2024-01-26] MEDS: HYDROcodone/APAP 7.5-325MG 1 EACH TAB PO PRN (00:13)
[2024-01-26] MEDS: IBUPROFEN 600 MG TAB PO PRN (00:52)
[2024-01-26 01:56] LABS: Glucose,Whole Blood 162 mg/dL (70-110)
[2024-01-26 06:08] LABS: Glucose,Whole Blood 184 mg/dL (70-110)
[2024-01-26 07:39] LABS: African American GFR (CKD) >90 (>60 ml/min/1.73 sqM); Anion Gap 4 mmol/L; Blood Urea Nitrogen 13 mg/dL (9-20); Calcium 7.4 mg/dL (8.4-10.2); Carbon Dioxide 24 mmol/L (22-30); Chloride 100 mmol/L (98-107); Glucose 146 mg/dL (74-99); Magnesium 1.7 mg/dL (1.6-2.3); Non-African American GFR(CKD) >90 (>60 ml/min/1.73 sqM); Phosphorus 3.8 mg/dL (2.5-4.5); Sodium 128 mmol/L (137-145)
--- NOTE | 2024-01-26 09:25 | P.PN ---
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 Patient also has a history of alcohol abuse and is a former smoker. Patient was recently admitted to the hospital from October 07 through November 13 secondary to an ileus and small bowel obstruction. Patient underwent laparotomy with lysis of adhesions for over 2 hours and excision of small bowel tumor x 3 closure of decompressive enterostomy partial omentectomy drainage of abdominal ascites 2 L underwent the surgery on October 16, 2023. Patient had an extensive hospital stay on to have Enterococcus and MRSA in the abdominal wound from the Homero-Dalton drain. He was discharged with IV antibiotics. Patient returns to the hospital secondary to 2-day complaints of abdominal pain and KUB x-ray initially showed dilated bowel loops with air fluid levels partial obstruction versus severe ileus. Follow up abdominal pelvis CT was done revealing persistent dilated fluid-filled distal small bowel and at least proximal colonic loops. Colonic obstruction is suspected cannot exclude ischemia or pneumatosis particularly the right colon. Advise lactic acid correlation advised urgent surgical evaluation. Patient's white blood cell count is normal at 9.2, hemoglobin 12.5, sodium 133, potassium 2.7, BUN 15, creatinine 0.53, magnesium 1.5, alk phos 220. Urinalysis is showing 1+ protein, greater than 182 RBCs, rare bacteria. He was admitted to the hospital for general surgery consultation patient is on IV fluids and receiving IV pain medication. 01/17/2024 Patient seen in follow up for Small bowel obstruction due to adhesive band disease, epigastrium --Large bowel obstruction due to internal hernia, transverse colon --Severe protein malnutrition -Continue NG tube-LIS -NPO -Continue pain management, toradol added -Continue TPN for now until diet is able to be advanced -Encourage patient to use incentive spirometer -Encourage patient to increase activity level -DVT prophylaxis subcu heparin and GI prophylaxis Protonix 01/18/2024 Patient is seen and evaluated in room at bedside Sleepy but easily arousable; patient reports no bowel movement or flatus Vital signs are reviewed temperature 98.7, pulse 60, respiration 18 and blood pressure 156/91 Lab review shows sodium of 128, potassium of 4.2, BUNs/creatinine of 11/0.46 and blood glucose of 126 General surgery following and recommending to continue with TPN and gastric decompression till bowel function returns Increase activity as recommended 01/19/24 NG tube and there is 330 mL of clear discharge Patient remains n.p.o., he does not feel hungry He is getting Dilaudid for pain control, his main symptom is abdominal pain No bowel movement, no flatus TPN is running Patient urine is running and Sandoval catheter in place 01/20/2024 Patient is awake sitting in chair NG tube in place No bowel movement Vertical surgical wound with wound VAC in place No chest pain or dyspnea 01/21/2024 Sitting in chair with no distress Abdominal pain and tenderness is controlled He is passing gas today Has bilateral pitting leg edema 01/22/2024 Patient states he has having bowel movement today, he states he has the second bowel movement today. Patient was started on clear liquid diet and he tolerates that well so far No chest pain or dyspnea 01/23/2024 Patient looks comfortable His pain looks controlled No evidence of overt bleeding however his hemoglobin dropped yesterday) 7 down to 7 today. He was started on Toradol yesterday and we will discontinue that. Continue with Protonix and monitor hemoglobin tomorrow Upon patient request I have a lengthy discussion with the patient over the phone discussing the case and management and also we had a lot of emphasis about discharge planning and the importance of outpatient follow-up. All questions answered to their satisfaction. 01/24/2024 Patient tolerates diet and having bowel movement Diet advance per surgery team and well-tolerated Abdominal pain controlled but patient still on pain pump. We will discuss with surgery team discontinuing of the pain pump His hemoglobin today dropped from 7 down to 6.8, 1 unit of blood transfusion is given. Still has mild leukocytosis Sodium level 128 01/25/2024 Patient is tolerates diet well and he has good bowel movement He looks calm and pain control However he still getting pain pump I talked with the patient we need to discontinue the pain pump prior to discharge. Surgery team are following as well Sodium improved to 131 Hemoglobin improved to 9.9 after 1 unit of blood transfusion yesterday for severe anemia 6.8 At home he is not on blood thinner or aspirin 01/26/2024 Patient today lying in bed looks not in significant distress eating his breakfast. Pain pump was stopped yesterday and today he is experiencing little bit more pain than usual which is expected and has been controlled with oral pain medication. He is getting IV Dilaudid 0.5 mg e, requiring 5 doses since yesterday night. Also he got [place] 7.5 to 2 pills today. He denies coughing or chest pain or dyspnea, no urinary complaints however Sandoval catheter was discontinued recently Today he is experiencing temperature 100.8, 2 days ago had low-grade temperature 100.5. Patient also with mild leukocytosis about 16,000. We will do some workup with chest x-ray and urine analysis and consult infectious disease team.Also will start Augmentin for possible intra-abdominal infection We will hold discharge for now today, patient informed and he is agreeable. Active Medications Generic Name Dose Route Start Last Admin Trade Name Freq PRN Reason Stop Dose Admin Hydrocodone Bitart/Acetaminophen 1 each 01/25/24 14:54 01/26/24 06:43 Hydrocodone/Apap 7.5-325mg 1 Each Tab PO 1 each Q4HR PRN Administration Pain Amoxicillin/Clavulanate Potassium 1 each 01/26/24 09:30 Amoxic-Pot Clav 875-125mg 1 Each Tab PO Q12HR [facility] Protocol Heparin Sodium (Porcine) 5,000 unit 01/09/24 09:00 01/26/24 09:15 Heparin Sodium,Porcine 5,000 Unit/Ml 1 Ml Vial SQ 5,000 unit Q12HR EDUARDO Administration Hydromorphone HCl 0.5 mg 01/25/24 14:54 01/26/24 09:15 Hydromorphone 0.5 Mg/0.5 Ml Syringe IVP 0.5 mg Q3HR PRN Administration Pain Fat Emulsion Intravenous 250 mls @ 20.833 mls/hr 01/13/24 20:00 01/25/24 21:33 Lipids 20% IV 20.833 mls/hr [id number] EDUARDO Administration Sodium Chloride 1,000 mls @ 50 mls/hr 01/16/24 16:00 01/25/24 23:06 Saline 0.9% IV 50 mls/hr .Q20H EDUARDO Administration Parenteral Vitamin Supplement 1,033 mls @ 60 mls/hr 01/25/24 19:00 01/25/24 18:05 10 ml/ Zinc/Copper/Manganese/ IV 60 mls/hr Selenium 1 ml/ Sodium Acetate .BY DURATION EDUARDO Administration 40 meq/ Magnesium Sulfate 1 gm / Amino Ac/Electrol/Dextrose/ Calcium Sodium Acetate 40 meq/ 1,022 mls @ 60 mls/hr 01/25/24 19:00 Magnesium Sulfate 1 gm/ Amino IV Ac/Electrol/Dextrose/Calcium .BY DURATION EDUARDO Ibuprofen 600 mg 01/25/24 14:51 01/26/24 00:52 Ibuprofen 600 Mg Tab PO 600 mg QID PRN Administration Pain Insulin Aspart 0 unit 01/14/24 07:30 01/26/24 06:40 Insulin Aspart (Novolog) 100 Unit/Ml Vial SQ 1 unit ACHS EDUARDO Administration Protocol Lactulose 20 gm 01/12/24 09:00 01/26/24 09:15 Lactulose 20 Gm/30 Ml Cup PO 20 gm DAILY EDUARDO Administration Metoprolol Tartrate 50 mg 01/08/24 21:00 01/26/24 09:15 Metoprolol Tartrate 50 Mg Tab PO 50 mg BID EDUARDO Administration Metoprolol Tartrate 2.5 mg 01/14/24 17:17 01/14/24 17:18 Metoprolol Tartrate 5 Mg/5 Ml Vial IVP 2.5 mg ONCE PRN Administration Heart Rate - HIGH Miscellaneous Information 1 each 01/08/24 09:15 Magnesium Replacement Protocol 1 Each Misc MISCELLANE DAILY PRN Per Protocol Protocol Naloxone HCl 0.2 mg 01/14/24 21:11 Naloxone 0.4 Mg/Ml 1 Ml Vial IV Q2M PRN Opioid Reversal Ondansetron HCl 4 mg 01/07/24 18:25 01/24/24 13:52 Ondansetron 4 Mg/2 Ml Vial IVP 4 mg Q8HR PRN Administration Nausea And Vomiting Pantoprazole Sodium 40 mg 01/08/24 09:00 01/26/24 09:15 Pantoprazole 40 Mg/10 Ml Vial IV 40 mg DAILY EDUARDO Administration Simethicone 40 mg 01/09/24 18:15 01/25/24 21:47 Simethicone 40 Mg/0.6 Ml Drops 2,000 Mg/30 Ml Bottle PO 40 mg QID EDUARDO Administration Thiamine HCl 100 mg 01/09/24 09:00 01/26/24 09:15 Thiamine 100 Mg Tab PO 100 mg DAILY EDUARDO Administration Objective - Vital Signs Vital signs: Vital Signs Temp 97.7 F 01/26/24 08:00 Pulse 63 01/26/24 08:00 Resp 18 01/26/24 08:00 BP 116/69 01/26/24 08:00 Pulse Ox 95 01/26/24 08:00 FiO2 Intake & Output 01/25/24 01/26/24 01/26/24 18:59 06:59 18:59 Output Total 250 2225 Balance -250 -2225 Output: Urine 250 2225 Other: Voiding Method Indwelling Catheter Indwelling Catheter # Bowel Movements 1 1 - Exam GENERAL: The patient is alert and oriented x3, not in any acute distress. Well developed, well nourished. HEENT: Pupils are round and equally reacting to light. EOMI. No scleral icterus. No conjunctival pallor. Normocephalic, atraumatic. No pharyngeal erythema. No thyromegaly. CARDIOVASCULAR: S1 and S2 present. No murmurs, rubs, or gallops. PULMONARY: Chest is clear to auscultation, no wheezing or crackles. -ABDOMEN: Soft, mild diffuse tenderness. Bowel sounds present.. No palpable organomegaly. NG tube has been placed. Vertical midline incision with wound VAC in place MUSCULOSKELETAL: No joint swelling or deformity. EXTREMITIES: No cyanosis, clubbing, or pedal edema. NEUROLOGICAL: Gross neurological examination did not reveal any focal deficits. SKIN: No rashes. - Labs CBC & Chem 7: 01/25/24 19:46 01/26/24 06:30 Labs: Abnormal Lab Results - Last 24 Hours (Table) 01/25/24 01/25/24 01/25/24 Range/Units 11:37 16:26 19:46 WBC 16.5 H (3.8-10.6) k/uL RBC 4.22 L (4.30-5.90) m/uL Hgb 9.9 L (13.0-17.5) gm/dL Hct 32.8 L (39.0-53.0) % MCV 77.8 L (80.0-100.0) fL MCH 23.5 L (25.0-35.0) pg MCHC 30.2 L (31.0-37.0) g/dL RDW 17.5 H (11.5-15.5) % Plt Count 674 H (150-450) k/uL Neutrophils # 14.7 H (1.3-7.7) k/uL Lymphocytes # 0.7 L (1.0-4.8) k/uL Sodium (137-145) mmol/L Creatinine (0.66-1.25) mg/dL Glucose (74-99) mg/dL POC Glucose (mg/dL) 206 H 114 H (70-110) mg/dL Calcium (8.4-10.2) mg/dL Ionized Calcium Shayy (4.5-5.3) mg/dL 01/25/24 01/26/24 01/26/24 Range/Units 20:40 01:53 06:07 WBC (3.8-10.6) k/uL RBC (4.30-5.90) m/uL Hgb (13.0-17.5) gm/dL Hct (39.0-53.0) % MCV (80.0-100.0) fL MCH (25.0-35.0) pg MCHC (31.0-37.0) g/dL RDW (11.5-15.5) % Plt Count (150-450) k/uL Neutrophils # (1.3-7.7) k/uL Lymphocytes # (1.0-4.8) k/uL Sodium (137-145) mmol/L Creatinine (0.66-1.25) mg/dL Glucose (74-99) mg/dL POC Glucose (mg/dL) 170 H 162 H 184 H (70-110) mg/dL Calcium (8.4-10.2) mg/dL Ionized Calcium Shayy (4.5-5.3) mg/dL 01/26/24 01/26/24 Range/Units 06:30 06:30 WBC (3.8-10.6) k/uL RBC (4.30-5.90) m/uL Hgb (13.0-17.5) gm/dL Hct (39.0-53.0) % MCV (80.0-100.0) fL MCH (25.0-35.0) pg MCHC (31.0-37.0) g/dL RDW (11.5-15.5) % Plt Count (150-450) k/uL Neutrophils # (1.3-7.7) k/uL Lymphocytes # (1.0-4.8) k/uL Sodium 128 L (137-145) mmol/L Creatinine 0.44 L (0.66-1.25) mg/dL Glucose 146 H (74-99) mg/dL POC Glucose (mg/dL) (70-110) mg/dL Calcium 7.4 L (8.4-10.2) mg/dL Ionized Calcium Shayy 4.4 L (4.5-5.3) mg/dL Assessment and Plan Assessment: Acute small bowel obstruction status post expiratory laparotomy and lysis of additions. post op fever , suspect intraabdominal infection Abdominal pain chronic with sigmoid volvulus Sigmoid volvulus status post colonic decompression Anemia Abdominal distention due to. bowel obstruction improving. Hx of bowel cancer with prior resection and lysis of adhesions and prolonged hospital stay Hypokalemia due to poor oral intake supplemented with IV potassium and improved levels Hyponatremia hypovolemic Hypomagnesemia Abnormal UA due to dehydration Hx of jaw cancer with chemoradiation and trach/peg in the past Hx of pulmonary embolism Severe protein malnutrition patient will be getting PICC line for nutrition may be a candidate for PEG tube if he is not able to increase his oral intake and meet caloric needs. Iron deficiency anemia hx Hx of SVT Hx of ETOH Hx of nicotine use GI prophylaxis. On PPI. DVT prophylaxis with heparin subcu Full Code Plan: Monitor hemoglobin and transfuse for hemoglobin less than 7. Patient is status post expiratory laparotomy, lysis of additions and reduction of internal hernia and drainage of ascites. General surgery is on board. For fever we will do chest x-ray and urinalysis start Augmentin and ID team consult Continue with oral and IV pain medication per surgery team Patient tolerates diet Has good bowel movement Management of pain pump is deferred to surgery team no iv fluids PT/OT consultation. Prognosis guarded due to multiple medical problems and comorbid conditions..
--- NOTE | 2024-01-26 10:01 | XR ---
EXAMINATION TYPE: XR chest 1V DATE OF EXAM: 01/26/2024 COMPARISON: 01/12/2024 HISTORY: Fever TECHNIQUE: Single frontal view of the chest is obtained. FINDINGS: Bilateral lower lobe consolidation with small effusion. Left-sided central line and Medipo rt catheter noted. No pneumothorax. Diffuse osteopenia with arthropathy of the shoulders and degenera tive change of the spine. There remains dilated bowel loops in the upper abdomen. NG tube no longer s een. IMPRESSION: 1. Bilateral lower lobe infiltrate and small effusion correlate for pneumonia. Venous congestion also the differential diagnosis. 2. Dilated bowel loops in the upper abdomen correlate for obstruction or ileus.
[2024-01-26 10:24] LABS: Basophils # (A) 0.04 X 10*3/uL (0.00-0.10); Basophils % (A) 0.2 %; Eosinophils # (A) 0.01 X 10*3/uL (0.04-0.35); Eosinophils % (A) 0.1 %; HCT 25.1 % (39.6-50.0); HGB 8.2 g/dL (13.0-17.0); Lymphocytes # (A) 0.94 X 10*3/uL (0.90-5.00); Lymphocytes % (A) 5.6 %; MCH 23.6 pg (27.0-32.0); MCHC 32.7 g/dL (32.0-37.0); MCV 72.3 FL (80.0-97.0); Mean Platelet Volume 9.7 FL (9.5-12.2); Monocytes # (A) 1.14 X 10*3/uL (0.20-1.00); Monocytes % (A) 6.7 %; NRBC Per 100 WBC 0 X 10*3/uL (0.00-0.01); Neutrophils # (A) 14.62 X 10*3/uL (1.80-7.70); Neutrophils % (A) 86.5 %; Platelet Count 714 X 10*3/uL (140-440); RBC 3.47 X 10*6/uL (4.40-5.60); RDW 17.8 % (11.5-14.5); WBC 16.91 X 10*3/uL (4.50-10.00)
[2024-01-26 11:38] LABS: Glucose,Whole Blood 127 mg/dL (70-110)
[2024-01-26] MEDS: AMOXIC-POT CLAV 875-125MG 1 EACH TAB PO SCH (12:00)
--- NOTE | 2024-01-26 13:50 | P.PN ---
Subjective Progress Note Date: 01/26/24 CHIEF COMPLAINT: Abdominal pain HISTORY OF PRESENT ILLNESS: Patient is status post open exploratory laparotomy with extensive lysis of adhesions and reduction and closure of internal hernia and drainage of abdominal ascites on 01/14/24. Patient's pain is controlled. He is tolerating diet. He is having bowel movements. He did have a low-grade temp of 100.8 early this morning. Per nursing staff patient is not ambulating that much. WBC 16.91 Hgb 8.2 platelets 714 sodium is 128 potassium 4.0 creatinine 0.44 chest x-ray reports bilateral lower lobe infiltrate and small effusion correlate for pneumonia versus congestion. Dilated bowel loops upper abdomen. PHYSICAL EXAM: VITAL SIGNS: Reviewed GENERAL: in no acute distress. ABDOMEN: Mildly distended. Incision site clean dry and intact. : Decrease scrotal edema ASSESSMENT: 1. Small bowel obstruction due to adhesive band disease, epigastrium 2. Large bowel obstruction due to internal hernia, transverse colon 3. Underweight, BMI 14.5 4. Severe protein malnutrition 5. History of mandibular cancer status post chemoradiation 6. History of small bowel perforation 7. History of tracheostomy gastrostomy tube 8. History of MRSA 9. History of pulmonary embolism 10. Hypertensive heart disease 11. Chronic constipation 12. Severe dehydration 13. Abdominal ascites 14. Hypomagnesemia PLAN: -Continue regular diet -Discontinue TPN -Continue pain management -Encourage patient to ambulate -Encourage patient to use incentive spirometer -DVT prophylaxis subcu heparin and GI prophylaxis Protonix Physician Vp Product note has been reviewed by physician. Signing provider agrees with the documented findings, assessment, and plan of care. Please see additional documentation below CHIEF COMPLAINT: Bowel obstruction HISTORY OF PRESENT ILLNESS: The patient is a 43-year-old male status post extensive lysis of adhesions for small including large bowel obstruction. Since his surgery, patient is passing flatus. He is having bowel movements "I want to go home." He reports incisional pain. He is requesting narcotics. Denies chest pain. Patient is on the phone with his mother. ROS: No reports of nausea and vomiting. Temperature elevated 100.8. No new chest pain. No productive sputum PHYSICAL EXAM: VITAL SIGNS: Reviewed CONSTITUTIONAL: Well developed and in no acute distress. EYES: Conjuctivae without sclera icterus. Extraocular movements grossly intact. HEAD, EARS, NOSE, THROAT: Moist buccal mucosa. Head is atraumatic, normocephalic. Hears conversational speech. No nasal drainage. RESPIRATORY: Non-labored respirations and equal bilateral excursions. Mediport along the right chest wall CARDIOVASCULAR: Palpable 2+ radial pulses. ABDOMEN: Incision intact. MUSCULOSKELETAL: No gross deformity of the lower extremities noted. No clubbing. No cyanosis. SKIN: Good skin turgor. Well perfused. NEUROLOGIC: Cranial nerves II through XII grossly intact. No focal or lateralizing signs. PSYCH: Appropriate affect. Alert and oriented to person, place and time. CLINICAL LABS: Reviewed. WBC trending upward over 16,000. Sodium low 128. Pathology: Adhesive band STUDIES: Chest x-ray independently reviewed demonstrates no bilateral pleural effusion. Findings most consistent with pulmonary vascular congestion. No overt pneumonia. This is my independent interpretation. ASSESSMENT: 1. Large and small bowel obstruction due to abdominal adhesions/internal hernia 2. Hyponatremia 3. History of oropharyngeal cancer 4. Underweight 5. Moderate to severe protein malnutrition PLAN: 1. Due to his pre-existing history of multiple antibiotics, leukocytosis, do recommend infectious disease consultation. 2. Correction of hyponatremia 3. Discharge pending assessment by infectious disease including home health care needs. 4. Intraoperative images of his surgery including adhesive band disease was sent to the patient's mother per his request. 5. Outpatient follow-up in 1 - 2 weeks pending discharge Objective - Vital Signs Vital signs: Vital Signs Temp 97.7 F 01/26/24 08:00 Pulse 63 01/26/24 09:15 Resp 18 01/26/24 09:15 BP 116/69 01/26/24 08:00 Pulse Ox 95 01/26/24 08:00 FiO2 Intake & Output 01/25/24 01/26/24 01/26/24 18:59 06:59 18:59 Output Total 250 2225 200 Balance -250 -2225 -200 Output: Urine 250 2225 200 Other: Voiding Method Indwelling Catheter Indwelling Catheter Urinal # Bowel Movements 1 1 - Labs CBC & Chem 7: 01/26/24 06:30 01/26/24 06:30 Labs: Abnormal Lab Results - Last 24 Hours (Table) 01/25/24 01/25/24 01/25/24 Range/Units 16:26 19:46 20:40 WBC 16.5 H (3.8-10.6) k/uL RBC 4.22 L (4.30-5.90) m/uL Hgb 9.9 L (13.0-17.5) gm/dL Hct 32.8 L (39.0-53.0) % MCV 77.8 L (80.0-100.0) fL MCH 23.5 L (25.0-35.0) pg MCHC 30.2 L (31.0-37.0) g/dL RDW 17.5 H (11.5-15.5) % Plt Count 674 H (150-450) k/uL Immature Gran # (0.00-0.04) X 10*3/uL Neutrophils # 14.7 H (1.3-7.7) k/uL Lymphocytes # 0.7 L (1.0-4.8) k/uL Monocytes # (0.20-1.00) X 10*3/uL Eosinophils # (0.04-0.35) X 10*3/uL Sodium (137-145) mmol/L Creatinine (0.66-1.25) mg/dL Glucose (74-99) mg/dL POC Glucose (mg/dL) 114 H 170 H (70-110) mg/dL Calcium (8.4-10.2) mg/dL Ionized Calcium Shayy (4.5-5.3) mg/dL C-Reactive Protein (<1.0) mg/dL 01/26/24 01/26/24 01/26/24 Range/Units 01:53 06:07 06:30 WBC (3.8-10.6) k/uL RBC (4.30-5.90) m/uL Hgb (13.0-17.5) gm/dL Hct (39.0-53.0) % MCV (80.0-100.0) fL MCH (25.0-35.0) pg MCHC (31.0-37.0) g/dL RDW (11.5-15.5) % Plt Count (150-450) k/uL Immature Gran # (0.00-0.04) X 10*3/uL Neutrophils # (1.3-7.7) k/uL Lymphocytes # (1.0-4.8) k/uL Monocytes # (0.20-1.00) X 10*3/uL Eosinophils # (0.04-0.35) X 10*3/uL Sodium (137-145) mmol/L Creatinine (0.66-1.25) mg/dL Glucose (74-99) mg/dL POC Glucose (mg/dL) 162 H 184 H (70-110) mg/dL Calcium (8.4-10.2) mg/dL Ionized Calcium Shayy 4.4 L (4.5-5.3) mg/dL C-Reactive Protein (<1.0) mg/dL 01/26/24 01/26/24 01/26/24 Range/Units 06:30 06:30 11:36 WBC 16.91 H (3.8-10.6) k/uL RBC 3.47 L (4.30-5.90) m/uL Hgb 8.2 L (13.0-17.5) gm/dL Hct 25.1 L (39.0-53.0) % MCV 72.3 L (80.0-100.0) fL MCH 23.6 L (25.0-35.0) pg MCHC (31.0-37.0) g/dL RDW 17.8 H (11.5-15.5) % Plt Count 714 H (150-450) k/uL Immature Gran # 0.16 H (0.00-0.04) X 10*3/uL Neutrophils # 14.62 H (1.3-7.7) k/uL Lymphocytes # (1.0-4.8) k/uL Monocytes # 1.14 H (0.20-1.00) X 10*3/uL Eosinophils # 0.01 L (0.04-0.35) X 10*3/uL Sodium 128 L (137-145) mmol/L Creatinine 0.44 L (0.66-1.25) mg/dL Glucose 146 H (74-99) mg/dL POC Glucose (mg/dL) 127 H (70-110) mg/dL Calcium 7.4 L (8.4-10.2) mg/dL Ionized Calcium Shayy (4.5-5.3) mg/dL C-Reactive Protein (<1.0) mg/dL 01/26/24 Range/Units 11:46 WBC (3.8-10.6) k/uL RBC (4.30-5.90) m/uL Hgb (13.0-17.5) gm/dL Hct (39.0-53.0) % MCV (80.0-100.0) fL MCH (25.0-35.0) pg MCHC (31.0-37.0) g/dL RDW (11.5-15.5) % Plt Count (150-450) k/uL Immature Gran # (0.00-0.04) X 10*3/uL Neutrophils # (1.3-7.7) k/uL Lymphocytes # (1.0-4.8) k/uL Monocytes # (0.20-1.00) X 10*3/uL Eosinophils # (0.04-0.35) X 10*3/uL Sodium (137-145) mmol/L Creatinine (0.66-1.25) mg/dL Glucose (74-99) mg/dL POC Glucose (mg/dL) (70-110) mg/dL Calcium (8.4-10.2) mg/dL Ionized Calcium Shayy (4.5-5.3) mg/dL C-Reactive Protein 23.2 H (<1.0) mg/dL
[2024-01-26 17:01] LABS: Glucose,Whole Blood 138 mg/dL (70-110)
[2024-01-26 20:56] LABS: Glucose,Whole Blood 135 mg/dL (70-110)
[2024-01-26 21:34] LABS: Appearance,Urine Clear (Clear); Bacteria,Urine Rare /hpf; Bilirubin,Urine Negative (Negative); Blood,Urine Negative (Negative); Color,Urine Light Yellow; Glucose,Urine (UA) Negative (Negative); Ketones,Urine Negative (Negative); Leukocyte Esterase,Urine Negative (Negative); Mucus,Urine Rare /hpf; Nitrite,Urine Positive (Negative); Protein,Urine Trace (Negative); RBC,Urine <1 /hpf (0-5); Specific Gravity,Urine 1.016 (1.001-1.035); Urobilinogen,Urine <2.0 mg/dL (<2.0); WBC,Urine 4 /hpf (0-5)
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
[2024-01-26] MEDS: PIPERACILLIN-TAZOBACTAM 3.375 GM in SODIUM CHLORIDE 0.9% 100 ML IVPB SCH (23:41)
[2024-01-27 02:18] LABS: Glucose,Whole Blood 89 mg/dL (70-110)
[2024-01-27 05:31] LABS: Glucose,Whole Blood 89 mg/dL (70-110)
[2024-01-27 09:12] LABS: African American GFR (CKD) >90 (>60 ml/min/1.73 sqM); Anion Gap 3 mmol/L; Blood Urea Nitrogen 13 mg/dL (9-20); Calcium 7.6 mg/dL (8.4-10.2); Carbon Dioxide 25 mmol/L (22-30); Chloride 102 mmol/L (98-107); Glucose 80 mg/dL (74-99); Magnesium 1.6 mg/dL (1.6-2.3); Non-African American GFR(CKD) >90 (>60 ml/min/1.73 sqM); Phosphorus 4.1 mg/dL (2.5-4.5); Potassium 4.4 mmol/L (3.5-5.1); Sodium 130 mmol/L (137-145)
[2024-01-27 11:20] LABS: Glucose,Whole Blood 82 mg/dL (70-110)
--- NOTE | 2024-01-27 15:41 | P.PN ---
Subjective Progress Note Date: 01/27/24 CHIEF COMPLAINT: Abdominal pain HISTORY OF PRESENT ILLNESS: Patient is status post open exploratory laparotomy with extensive lysis of adhesions and reduction and closure of internal hernia and drainage of abdominal ascites on 01/14/24. Patient's pain is controlled. He is tolerating diet. He is having bowel movements. He has had no further fevers. CBC from today is pending sodium is 130 PHYSICAL EXAM: VITAL SIGNS: Reviewed GENERAL: in no acute distress. ABDOMEN: Nondistended. Incision site clean dry and intact. : Decrease scrotal edema ASSESSMENT: 1. Small bowel obstruction due to adhesive band disease, epigastrium 2. Large bowel obstruction due to internal hernia, transverse colon 3. Underweight, BMI 14.5 4. Severe protein malnutrition 5. History of mandibular cancer status post chemoradiation 6. History of small bowel perforation 7. History of tracheostomy gastrostomy tube 8. History of MRSA 9. History of pulmonary embolism 10. Hypertensive heart disease 11. Chronic constipation 12. Severe dehydration 13. Abdominal ascites 14. Hypomagnesemia 15. Possible pneumonia PLAN: -Continue regular diet -Antibiotics per infectious disease -Patient can be discharged from surgical standpoint when medically cleared -Encourage patient to ambulate -Encourage patient to use incentive spirometer -DVT prophylaxis subcu heparin and GI prophylaxis Protonix Physician German Instructor note has been reviewed by physician. Signing provider agrees with the documented findings, assessment, and plan of care. As above. Please see additional documentation below Patient being seen by infectious disease due to complicated pre-existing history of multiple abdominal infections. Microbiology results has been negative regarding growth, peritoneal fluid from his surgery. Patient no longer having fevers. He does have a PICC line which has been used for TPN. At this time, disposition to home pending correction of leukocytosis and/or antibiotic management pending infectious disease. As patient has bowel function and resolved bowel obstruction, diet as tolerated. Removal of PICC line pending recommendations from infectious disease. Objective - Vital Signs Vital signs: Vital Signs Temp 98.0 F 01/27/24 13:43 Pulse 74 01/27/24 13:43 Resp 17 01/27/24 13:43 BP 120/65 01/27/24 13:43 Pulse Ox 99 01/27/24 13:43 FiO2 Intake & Output 01/26/24 01/27/24 01/27/24 18:59 06:59 18:59 Output Total 200 450 200 Balance -200 -450 -200 Weight 55.3 kg Output: Urine 200 450 200 Other: Voiding Method Urinal Urinal Urinal # Voids 2 # Bowel Movements 1 - Labs CBC & Chem 7: 01/27/24 08:16 01/27/24 08:16 Labs: Abnormal Lab Results - Last 24 Hours (Table) 01/26/24 01/26/24 01/26/24 Range/Units 11:46 16:59 20:54 Sodium (137-145) mmol/L Creatinine (0.66-1.25) mg/dL POC Glucose (mg/dL) 138 H 135 H (70-110) mg/dL Calcium (8.4-10.2) mg/dL Procalcitonin 5.52 H (0.02-0.09) ng/mL Urine Protein (Negative) Urine Bacteria (None) /hpf Urine Mucus (None) /hpf 01/26/24 01/27/24 Range/Units 21:13 08:16 Sodium 130 L (137-145) mmol/L Creatinine 0.48 L (0.66-1.25) mg/dL POC Glucose (mg/dL) (70-110) mg/dL Calcium 7.6 L (8.4-10.2) mg/dL Procalcitonin (0.02-0.09) ng/mL Urine Protein Trace H (Negative) Urine Bacteria Rare H (None) /hpf Urine Mucus Rare H (None) /hpf
[2024-01-27 15:42] LABS: Basophils # (A) 0.03 X 10*3/uL (0.00-0.10); Basophils % (A) 0.2 %; Eosinophils # (A) 0.01 X 10*3/uL (0.04-0.35); Eosinophils % (A) 0.1 %; HCT 27.3 % (39.6-50.0); HGB 8.6 g/dL (13.0-17.0); Lymphocytes # (A) 0.79 X 10*3/uL (0.90-5.00); MCH 22.8 pg (27.0-32.0); MCHC 31.5 g/dL (32.0-37.0); MCV 72.4 FL (80.0-97.0); Mean Platelet Volume 9.5 FL (9.5-12.2); Monocytes # (A) 0.97 X 10*3/uL (0.20-1.00); Monocytes % (A) 6.1 %; NRBC Per 100 WBC 0 X 10*3/uL (0.00-0.01); Neutrophils # (A) 13.87 X 10*3/uL (1.80-7.70); Neutrophils % (A) 87.5 %; Platelet Count 715 X 10*3/uL (140-440); RBC 3.77 X 10*6/uL (4.40-5.60); RDW 18.3 % (11.5-14.5); WBC 15.85 X 10*3/uL (4.50-10.00)
[2024-01-27 16:19] LABS: Glucose,Whole Blood 109 mg/dL (70-110)
--- NOTE | 2024-01-27 16:31 | P.PN ---
Subjective Progress Note Date: 01/27/24 Principal diagnosis: Reason for follow-up is fever Patient is a 43-year-old -Norwegian male with a past medical history significant for right-sided jaw cancer treated with chemoradiation patient did have a trach and PEG chronic pancreatitis and history of recurrent ileus r equiring multiple admission to the hospital patient presented to the hospital on 01/07/2024 for evaluation of abdominal pain and this patient was status post laparotomy lysis of adhesion reduction and closure of the internal hernia drainage of abdominal ascites culture were negative he did spike a fever prompting this consultation. On today's evaluation that is 01/27/2024, Patient is afebrile this morning and denies any chills, patient mention breathing comfortably and is currently on room air, patient denies any chest pain occasional cough patient denies any abdominal pain no diarrhea no nausea no vomiting has been insisting on going home. Patient white count is slightly down to 15.85 creatinine 0.48 did have a procalcitonin of 5.52 cultures currently pending Objective - Vital Signs Vital signs: Vital Signs Temp 98.0 F 01/27/24 13:43 Pulse 74 01/27/24 13:43 Resp 17 01/27/24 13:43 BP 120/65 01/27/24 13:43 Pulse Ox 99 01/27/24 13:43 FiO2 Intake & Output 01/26/24 01/27/24 01/27/24 18:59 06:59 18:59 Output Total 200 450 200 Balance -200 -450 -200 Weight 55.3 kg Output: Urine 200 450 200 Other: Voiding Method Urinal Urinal Urinal # Voids 2 # Bowel Movements 1 - Exam GENERAL DESCRIPTION: Middle-age male up in bed in no distress RESPIRATORY SYSTEM: Unlabored breathing , decreased breath sounds at bases HEART: S1 S2 regular rate and rhythm , ABDOMEN: Soft , no tenderness EXTREMITIES: No edema feet - Labs CBC & Chem 7: 01/27/24 08:16 01/27/24 08:16 Labs: Abnormal Lab Results - Last 24 Hours (Table) 01/26/24 01/26/24 01/26/24 Range/Units 16:59 20:54 21:13 WBC (4.50-10.00) X 10*3/uL RBC (4.40-5.60) X 10*6/uL Hgb (13.0-17.0) g/dL Hct (39.6-50.0) % MCV (80.0-97.0) FL MCH (27.0-32.0) pg MCHC (32.0-37.0) g/dL RDW (11.5-14.5) % Plt Count (140-440) X 10*3/uL Immature Gran # (0.00-0.04) X 10*3/uL Neutrophils # (1.80-7.70) X 10*3/uL Lymphocytes # (0.90-5.00) X 10*3/uL Eosinophils # (0.04-0.35) X 10*3/uL Sodium (137-145) mmol/L Creatinine (0.66-1.25) mg/dL POC Glucose (mg/dL) 138 H 135 H (70-110) mg/dL Calcium (8.4-10.2) mg/dL Urine Protein Trace H (Negative) Urine Bacteria Rare H (None) /hpf Urine Mucus Rare H (None) /hpf 01/27/24 01/27/24 Range/Units 08:16 08:16 WBC 15.85 H (4.50-10.00) X 10*3/uL RBC 3.77 L (4.40-5.60) X 10*6/uL Hgb 8.6 L (13.0-17.0) g/dL Hct 27.3 L (39.6-50.0) % MCV 72.4 L (80.0-97.0) FL MCH 22.8 L (27.0-32.0) pg MCHC 31.5 L (32.0-37.0) g/dL RDW 18.3 H (11.5-14.5) % Plt Count 715 H (140-440) X 10*3/uL Immature Gran # 0.18 H (0.00-0.04) X 10*3/uL Neutrophils # 13.87 H (1.80-7.70) X 10*3/uL Lymphocytes # 0.79 L (0.90-5.00) X 10*3/uL Eosinophils # 0.01 L (0.04-0.35) X 10*3/uL Sodium 130 L (137-145) mmol/L Creatinine 0.48 L (0.66-1.25) mg/dL POC Glucose (mg/dL) (70-110) mg/dL Calcium 7.6 L (8.4-10.2) mg/dL Urine Protein (Negative) Urine Bacteria (None) /hpf Urine Mucus (None) /hpf Assessment and Plan (1) Fever Current Visit: Yes Status: Acute Code(s): R50.9 - FEVER, UNSPECIFIED SNOMED Code(s): 485844027 (2) Leukocytosis Current Visit: No Status: Acute Code(s): D72.829 - ELEVATED WHITE BLOOD CELL COUNT, UNSPECIFIED SNOMED Code(s): 949566919 Plan: 1patient with low-grade fever over the last 2 days and this patient has been in the hospital for 3 weeks prior to this consultation with admission to the hospital with abdominal pain and this patient who status post laparotomy extensive lysis of additional reduction and closure of internal hernia on 9023 with abdominal culture has been negative source of fever could be possible pneumonia as shown on the chest x-ray was related to his PICC line that has been there for 3 weeks and less likely urinary source. 2 blood cultures peripherally as well as from the PICC has been obtained, UA has been negative however did have elevated procalcitonin 3-patient to continue with Zosyn while waiting for the culture to finalize Dictation was produced using [employer] dictation software. please excuse any grammatical, word or spelling errors. Time with Patient: Less than 30
[2024-01-27 20:53] LABS: Glucose,Whole Blood 101 mg/dL (70-110)
--- NOTE | 2024-01-28 01:19 | P.PN ---
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 Patient also has a history of alcohol abuse and is a former smoker. Patient was recently admitted to the hospital from October 07 through November 13 secondary to an ileus and small bowel obstruction. Patient underwent laparotomy with lysis of adhesions for over 2 hours and excision of small bowel tumor x 3 closure of decompressive enterostomy partial omentectomy drainage of abdominal ascites 2 L underwent the surgery on October 16, 2023. Patient had an extensive hospital stay on to have Enterococcus and MRSA in the abdominal wound from the Homero-Dalton drain. He was discharged with IV antibiotics. Patient returns to the hospital secondary to 2-day complaints of abdominal pain and KUB x-ray initially showed dilated bowel loops with air fluid levels partial obstruction versus severe ileus. Follow up abdominal pelvis CT was done revealing persistent dilated fluid-filled distal small bowel and at least proximal colonic loops. Colonic obstruction is suspected cannot exclude ischemia or pneumatosis particularly the right colon. Advise lactic acid correlation advised urgent surgical evaluation. Patient's white blood cell count is normal at 9.2, hemoglobin 12.5, sodium 133, potassium 2.7, BUN 15, creatinine 0.53, magnesium 1.5, alk phos 220. Urinalysis is showing 1+ protein, greater than 182 RBCs, rare bacteria. He was admitted to the hospital for general surgery consultation patient is on IV fluids and receiving IV pain medication. 01/17/2024 Patient seen in follow up for Small bowel obstruction due to adhesive band disease, epigastrium --Large bowel obstruction due to internal hernia, transverse colon --Severe protein malnutrition -Continue NG tube-LIS -NPO -Continue pain management, toradol added -Continue TPN for now until diet is able to be advanced -Encourage patient to use incentive spirometer -Encourage patient to increase activity level -DVT prophylaxis subcu heparin and GI prophylaxis Protonix 01/18/2024 Patient is seen and evaluated in room at bedside Sleepy but easily arousable; patient reports no bowel movement or flatus Vital signs are reviewed temperature 98.7, pulse 60, respiration 18 and blood pressure 156/91 Lab review shows sodium of 128, potassium of 4.2, BUNs/creatinine of 11/0.46 and blood glucose of 126 General surgery following and recommending to continue with TPN and gastric decompression till bowel function returns Increase activity as recommended 01/19/24 NG tube and there is 330 mL of clear discharge Patient remains n.p.o., he does not feel hungry He is getting Dilaudid for pain control, his main symptom is abdominal pain No bowel movement, no flatus TPN is running Patient urine is running and Sandoval catheter in place 01/20/2024 Patient is awake sitting in chair NG tube in place No bowel movement Vertical surgical wound with wound VAC in place No chest pain or dyspnea 01/21/2024 Sitting in chair with no distress Abdominal pain and tenderness is controlled He is passing gas today Has bilateral pitting leg edema 01/22/2024 Patient states he has having bowel movement today, he states he has the second bowel movement today. Patient was started on clear liquid diet and he tolerates that well so far No chest pain or dyspnea 01/23/2024 Patient looks comfortable His pain looks controlled No evidence of overt bleeding however his hemoglobin dropped yesterday) 7 down to 7 today. He was started on Toradol yesterday and we will discontinue that. Continue with Protonix and monitor hemoglobin tomorrow Upon patient request I have a lengthy discussion with the patient over the phone discussing the case and management and also we had a lot of emphasis about discharge planning and the importance of outpatient follow-up. All questions answered to their satisfaction. 01/24/2024 Patient tolerates diet and having bowel movement Diet advance per surgery team and well-tolerated Abdominal pain controlled but patient still on pain pump. We will discuss with surgery team discontinuing of the pain pump His hemoglobin today dropped from 7 down to 6.8, 1 unit of blood transfusion is given. Still has mild leukocytosis Sodium level 128 01/25/2024 Patient is tolerates diet well and he has good bowel movement He looks calm and pain control However he still getting pain pump I talked with the patient we need to discontinue the pain pump prior to discharge. Surgery team are following as well Sodium improved to 131 Hemoglobin improved to 9.9 after 1 unit of blood transfusion yesterday for severe anemia 6.8 At home he is not on blood thinner or aspirin 01/26/2024 Patient today lying in bed looks not in significant distress eating his breakfast. Pain pump was stopped yesterday and today he is experiencing little bit more pain than usual which is expected and has been controlled with oral pain medication. He is getting IV Dilaudid 0.5 mg e, requiring 5 doses since yesterday night. Also he got Laie 7.5 to 2 pills today. He denies coughing or chest pain or dyspnea, no urinary complaints however Sandoval catheter was discontinued recently Today he is experiencing temperature 100.8, 2 days ago had low-grade temperature 100.5. Patient also with mild leukocytosis about 16,000. We will do some workup with chest x-ray and urine analysis and consult infectious disease team.Also will start Augmentin for possible intra-abdominal infection We will hold discharge for now today, patient informed and he is agreeable. 01/27/2024 Patient sitting in chair relaxed however mild distress because of his pain at the surgical site more than last few days which is expected after d discontinuing The pain pump yesterday Is currently taking Laie and IV Dilaudid 0.5 mg every 3 hours and is significant [id number] Patient eager to go home however he developed low grade fever spikes once 100.5 and 100.8 which is worsening therefore patient was started on Zosyn, ID team evaluated the patient and blood pressure obtained which is pending Patient is hemodynamically stable. Still has mild leukocytosis of about 15,000 Objective - Vital Signs Vital signs: Vital Signs Temp 98.0 F 01/27/24 13:43 Pulse 74 01/27/24 13:43 Resp 17 01/27/24 13:43 BP 120/65 01/27/24 13:43 Pulse Ox 99 01/27/24 13:43 FiO2 Intake & Output 01/27/24 01/27/24 01/28/24 06:59 18:59 06:59 Output Total 450 200 Balance -450 -200 Weight 55.3 kg Output: Urine 450 200 Other: Voiding Method Urinal Urinal # Voids 2 - Exam GENERAL: The patient is alert and oriented x3, not in any acute distress. Well developed, well nourished. HEENT: Pupils are round and equally reacting to light. EOMI. No scleral icterus. No conjunctival pallor. Normocephalic, atraumatic. No pharyngeal erythema. No thyromegaly. CARDIOVASCULAR: S1 and S2 present. No murmurs, rubs, or gallops. PULMONARY: Chest is clear to auscultation, no wheezing or crackles. -ABDOMEN: Soft, mild diffuse tenderness. Bowel sounds present.. No palpable organomegaly. NG tube has been placed. Vertical midline incision with wound VAC in place MUSCULOSKELETAL: No joint swelling or deformity. EXTREMITIES: No cyanosis, clubbing, or pedal edema. NEUROLOGICAL: Gross neurological examination did not reveal any focal deficits. SKIN: No rashes. - Labs CBC & Chem 7: 01/27/24 08:16 01/27/24 08:16 Labs: Abnormal Lab Results - Last 24 Hours (Table) 01/27/24 01/27/24 Range/Units 08:16 08:16 WBC 15.85 H (4.50-10.00) X 10*3/uL RBC 3.77 L (4.40-5.60) X 10*6/uL Hgb 8.6 L (13.0-17.0) g/dL Hct 27.3 L (39.6-50.0) % MCV 72.4 L (80.0-97.0) FL MCH 22.8 L (27.0-32.0) pg MCHC 31.5 L (32.0-37.0) g/dL RDW 18.3 H (11.5-14.5) % Plt Count 715 H (140-440) X 10*3/uL Immature Gran # 0.18 H (0.00-0.04) X 10*3/uL Neutrophils # 13.87 H (1.80-7.70) X 10*3/uL Lymphocytes # 0.79 L (0.90-5.00) X 10*3/uL Eosinophils # 0.01 L (0.04-0.35) X 10*3/uL Sodium 130 L (137-145) mmol/L Creatinine 0.48 L (0.66-1.25) mg/dL Calcium 7.6 L (8.4-10.2) mg/dL Microbiology - Last 24 Hours (Table) 01/26/24 11:46 Blood Culture - Preliminary Blood Assessment and Plan Assessment: Acute small bowel obstruction status post expiratory laparotomy and lysis of additions. post op fever , suspect intraabdominal infection Abdominal pain chronic with sigmoid volvulus Sigmoid volvulus status post colonic decompression Anemia Abdominal distention due to. bowel obstruction improving. Hx of bowel cancer with prior resection and lysis of adhesions and prolonged hospital stay Hypokalemia due to poor oral intake supplemented with IV potassium and improved levels Hyponatremia hypovolemic Hypomagnesemia Abnormal UA due to dehydration Hx of jaw cancer with chemoradiation and trach/peg in the past Hx of pulmonary embolism Severe protein malnutrition patient will be getting PICC line for nutrition may be a candidate for PEG tube if he is not able to increase his oral intake and m eet caloric needs. Iron deficiency anemia hx Hx of SVT Hx of ETOH Hx of nicotine use GI prophylaxis. On PPI. DVT prophylaxis with heparin subcu Full Code Plan: Monitor hemoglobin and transfuse for hemoglobin less than 7. Patient is status post expiratory laparotomy, lysis of additions and reduction of internal hernia and drainage of ascites. General surgery is on board. For fever we will do chest x-ray and urinalysis start Augmentin and ID team consult Continue with oral and IV pain medication per surgery team Patient tolerates diet Has good bowel movement Management of pain pump is deferred to surgery team no iv fluids PT/OT consultation. Prognosis guarded due to multiple medical problems and comorbid conditions..
[2024-01-28 04:40] LABS: Anisocytosis Slight; Basophils % (A) 0 %; Eosinophils % (A) 0 %; HCT 30.2 % (39.0-53.0); HGB 8.8 gm/dL (13.0-17.5); Hypochromasia Moderate; Lymphocytes # (A) 0.8 k/uL (1.0-4.8); Lymphocytes % (A) 6 %; MCH 22.4 pg (25.0-35.0); MCHC 29.3 g/dL (31.0-37.0); MCV 76.5 fL (80.0-100.0); Mean Platelet Volume 7.5; Microcytosis Slight; Monocytes # (A) 0.9 k/uL (0-1.0); Monocytes % (A) 7 %; Neutrophils # (A) 10.6 k/uL (1.3-7.7); Neutrophils % (A) 85 %; Platelet Count 721 k/uL (150-450); RBC 3.95 m/uL (4.30-5.90); RDW 17.3 % (11.5-15.5); WBC 12.5 k/uL (3.8-10.6)
[2024-01-28 04:52] LABS: African American GFR (CKD) >90 (>60 ml/min/1.73 sqM); Anion Gap 6 mmol/L; Blood Urea Nitrogen 13 mg/dL (9-20); Calcium 7.6 mg/dL (8.4-10.2); Carbon Dioxide 21 mmol/L (22-30); Chloride 104 mmol/L (98-107); Glucose 71 mg/dL (74-99); Magnesium 1.5 mg/dL (1.6-2.3); Non-African American GFR(CKD) >90 (>60 ml/min/1.73 sqM); Phosphorus 4.2 mg/dL (2.5-4.5); Potassium 4.5 mmol/L (3.5-5.1); Sodium 131 mmol/L (137-145)
[2024-01-28 06:09] LABS: Glucose,Whole Blood 83 mg/dL (70-110)
[2024-01-28 11:24] LABS: Glucose,Whole Blood 152 mg/dL (70-110)
--- NOTE | 2024-01-28 13:00 | P.PN ---
Subjective Progress Note Date: 01/28/24 CHIEF COMPLAINT: Abdominal pain HISTORY OF PRESENT ILLNESS: The patient is a 43-year-old male status post lysis of adhesions. Reports he is tolerating diet. He is eager to go home. No further fevers. No reports abdominal pain. He does report baseline incisional pain. ROS: No fevers or chills. No new chest pain. No productive sputum PHYSICAL EXAM: VITAL SIGNS: Reviewed CONSTITUTIONAL: Well developed and in no acute distress. EYES: Conjuctivae without sclera icterus. Extraocular movements grossly intact. HEAD, EARS, NOSE, THROAT: Moist buccal mucosa. Head is atraumatic, normocephalic . Hears conversational speech. No nasal drainage. RESPIRATORY: Non-labored respirations and equal bilateral excursions. CARDIOVASCULAR: Palpable 2+ radial pulses. ABDOMEN: Dressing discontinued. Midline incision clean dry intact. I personally cleansed the incision with chlorhexidine prep. MUSCULOSKELETAL: No gross deformity of the lower extremities noted. No clubbing. No cyanosis. SKIN: Good skin turgor. Well perfused. NEUROLOGIC: Cranial nerves II through XII grossly intact. No focal or lateralizing signs. PSYCH: Appropriate affect. Alert and oriented to person, place and time. CLINICAL LABS: Reviewed. WBC trending down from 16,000. ASSESSMENT: 1. Large and small bowel obstruction due to peritoneal adhesions PLAN: 1. Discontinue external dressing. Use chlorhexidine cleanse daily. 2. May shower. 3. Discharge pending infectious disease consultation and medical care. 4. Patient stable for discharge from a surgical standpoint. 5. Local wound care with antibacterial soap hydrogen peroxide reviewed. Objective - Vital Signs Vital signs: Vital Signs Temp 98.2 F 01/28/24 07:16 Pulse 61 01/28/24 08:00 Resp 16 01/28/24 08:00 BP 131/82 01/28/24 07:16 Pulse Ox 100 01/28/24 07:16 FiO2 Intake & Output 01/27/24 01/28/24 01/28/24 18:59 06:59 18:59 Output Total 200 350 375 Balance -200 -350 -375 Weight 55.3 kg 52.6 kg Output: Urine 200 350 Stool 375 Other: Voiding Method Urinal Urinal Urinal # Voids 2 1 - Labs CBC & Chem 7: 01/28/24 04:00 01/28/24 04:00 Labs: Abnormal Lab Results - Last 24 Hours (Table) 01/27/24 01/28/24 01/28/24 Range/Units 08:16 04:00 04:00 WBC 15.85 H 12.5 H (4.50-10.00) X 10*3/uL RBC 3.77 L 3.95 L (4.40-5.60) X 10*6/uL Hgb 8.6 L 8.8 L (13.0-17.0) g/dL Hct 27.3 L 30.2 L (39.6-50.0) % MCV 72.4 L 76.5 L (80.0-97.0) FL MCH 22.8 L 22.4 L (27.0-32.0) pg MCHC 31.5 L 29.3 L (32.0-37.0) g/dL RDW 18.3 H 17.3 H (11.5-14.5) % Plt Count 715 H 721 H (140-440) X 10*3/uL Immature Gran # 0.18 H (0.00-0.04) X 10*3/uL Neutrophils # 13.87 H 10.6 H (1.80-7.70) X 10*3/uL Lymphocytes # 0.79 L 0.8 L (0.90-5.00) X 10*3/uL Eosinophils # 0.01 L (0.04-0.35) X 10*3/uL Sodium 131 L (137-145) mmol/L Carbon Dioxide 21 L (22-30) mmol/L Glucose 71 L (74-99) mg/dL POC Glucose (mg/dL) (70-110) mg/dL Calcium 7.6 L (8.4-10.2) mg/dL Magnesium 1.5 L (1.6-2.3) mg/dL 01/28/24 Range/Units 11:21 WBC (4.50-10.00) X 10*3/uL RBC (4.40-5.60) X 10*6/uL Hgb (13.0-17.0) g/dL Hct (39.6-50.0) % MCV (80.0-97.0) FL MCH (27.0-32.0) pg MCHC (32.0-37.0) g/dL RDW (11.5-14.5) % Plt Count (140-440) X 10*3/uL Immature Gran # (0.00-0.04) X 10*3/uL Neutrophils # (1.80-7.70) X 10*3/uL Lymphocytes # (0.90-5.00) X 10*3/uL Eosinophils # (0.04-0.35) X 10*3/uL Sodium (137-145) mmol/L Carbon Dioxide (22-30) mmol/L Glucose (74-99) mg/dL POC Glucose (mg/dL) 152 H (70-110) mg/dL Calcium (8.4-10.2) mg/dL Magnesium (1.6-2.3) mg/dL Microbiology - Last 24 Hours (Table) 01/26/24 11:46 Blood Culture - Preliminary Blood
[2024-01-28] MEDS ORDERED: VANCOMYCIN IV PER PHARMACY 1 EACH MISC MISCELLANE PRN (14:50)
[2024-01-28 16:26] LABS: Glucose,Whole Blood 119 mg/dL (70-110)
--- NOTE | 2024-01-28 16:27 | P.PN ---
Subjective Progress Note Date: 01/28/24 Principal diagnosis: Reason for follow-up is fever Patient is a 43-year-old -[place] male with a past medical history significant for right-sided jaw cancer treated with chemoradiation patient did have a trach and PEG chronic pancreatitis and history of recurrent ileus r equiring multiple admission to the hospital patient presented to the hospital on 01/07/2024 for evaluation of abdominal pain and this patient was status post laparotomy lysis of adhesion reduction and closure of the internal hernia drainage of abdominal ascites culture were negative he did spike a fever prompting this consultation. On today's evaluation that is 01/28/2024,the patient denies any fever or any chills, patient is breathing comfortably on room air, the patient denies chest pain shortness of breath and no significant cough, patient denies abdominal pain, no nausea vomiting or diarrhea. Patient mention feeling better and has been insisting on going home. Patient white count down to 12.5, creatinine 0.66 blood cultures came back positive with gram-positive cocci Objective - Vital Signs Vital signs: Vital Signs Temp 98.2 F 01/28/24 07:16 Pulse 61 01/28/24 08:00 Resp 16 01/28/24 08:00 BP 131/82 01/28/24 07:16 Pulse Ox 100 01/28/24 07:16 FiO2 Intake & Output 01/27/24 01/28/24 01/28/24 18:59 06:59 18:59 Output Total 200 350 375 Balance -200 -350 -375 Weight 55.3 kg 52.6 kg Output: Urine 200 350 Stool 375 Other: Voiding Method Urinal Urinal Urinal # Voids 2 1 - Exam GENERAL DESCRIPTION: Middle-age male up in bed in no distress RESPIRATORY SYSTEM: Unlabored breathing , decreased breath sounds at bases HEART: S1 S2 regular rate and rhythm , ABDOMEN: Soft , no tenderness EXTREMITIES: No edema feet - Labs CBC & Chem 7: 01/28/24 04:00 01/28/24 04:00 Labs: Abnormal Lab Results - Last 24 Hours (Table) 01/27/24 01/28/24 01/28/24 Range/Units 08:16 04:00 04:00 WBC 15.85 H 12.5 H (4.50-10.00) X 10*3/uL RBC 3.77 L 3.95 L (4.40-5.60) X 10*6/uL Hgb 8.6 L 8.8 L (13.0-17.0) g/dL Hct 27.3 L 30.2 L (39.6-50.0) % MCV 72.4 L 76.5 L (80.0-97.0) FL MCH 22.8 L 22.4 L (27.0-32.0) pg MCHC 31.5 L 29.3 L (32.0-37.0) g/dL RDW 18.3 H 17.3 H (11.5-14.5) % Plt Count 715 H 721 H (140-440) X 10*3/uL Immature Gran # 0.18 H (0.00-0.04) X 10*3/uL Neutrophils # 13.87 H 10.6 H (1.80-7.70) X 10*3/uL Lymphocytes # 0.79 L 0.8 L (0.90-5.00) X 10*3/uL Eosinophils # 0.01 L (0.04-0.35) X 10*3/uL Sodium 131 L (137-145) mmol/L Carbon Dioxide 21 L (22-30) mmol/L Glucose 71 L (74-99) mg/dL POC Glucose (mg/dL) (70-110) mg/dL Calcium 7.6 L (8.4-10.2) mg/dL Magnesium 1.5 L (1.6-2.3) mg/dL 01/28/24 Range/Units 11:21 WBC (4.50-10.00) X 10*3/uL RBC (4.40-5.60) X 10*6/uL Hgb (13.0-17.0) g/dL Hct (39.6-50.0) % MCV (80.0-97.0) FL MCH (27.0-32.0) pg MCHC (32.0-37.0) g/dL RDW (11.5-14.5) % Plt Count (140-440) X 10*3/uL Immature Gran # (0.00-0.04) X 10*3/uL Neutrophils # (1.80-7.70) X 10*3/uL Lymphocytes # (0.90-5.00) X 10*3/uL Eosinophils # (0.04-0.35) X 10*3/uL Sodium (137-145) mmol/L Carbon Dioxide (22-30) mmol/L Glucose (74-99) mg/dL POC Glucose (mg/dL) 152 H (70-110) mg/dL Calcium (8.4-10.2) mg/dL Magnesium (1.6-2.3) mg/dL Microbiology - Last 24 Hours (Table) 01/26/24 11:46 Blood Culture - Preliminary Blood Assessment and Plan (1) Fever Current Visit: Yes Status: Acute Code(s): R50.9 - FEVER, UNSPECIFIED SNOMED Code(s): 973531374 (2) Leukocytosis Current Visit: No Status: Acute Code(s): D72.829 - ELEVATED WHITE BLOOD CELL COUNT, UNSPECIFIED SNOMED Code(s): 623187034 Plan: 1patient with low-grade fever over the last 2 days and this patient has been in the hospital for 3 weeks prior to this consultation with admission to the hospital with abdominal pain and this patient who status post laparotomy extensive lysis of additional reduction and closure of internal hernia on 9023 with abdominal culture has been negative source of fever could be possible pneumonia as shown on the chest x-ray was related to his PICC line that has been there for 3 weeks and less likely urinary source. 2 blood cultures coming back positive with gram-positive cocci more likely due to the PICC line discussed with the nursing staff to remove his PICC line repeat blood culture x 1 after removal of the PICC line and we will start the patient on vancomycin discontinue Zosyn Discussed with admitting team Dictation was produced using Port[employer] dictation software. please excuse any gr ammatical, word or spelling errors. Time with Patient: Greater than 30
[2024-01-28] MEDS: VANCOMYCIN 1,000 MG in SODIUM CHLORIDE 0.9% 250 ML IVPB SCH (16:49)
[2024-01-28 20:05] LABS: Glucose,Whole Blood 122 mg/dL (70-110)
[2024-01-28] MEDS: MAGNESIUM SULFATE-D5W PMX 1 GM in DEXTROSE/WATER 1 100ML.BAG IVPB SCH (22:17)
--- NOTE | 2024-01-28 23:18 | P.PN ---
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 Patient also has a history of alcohol abuse and is a former smoker. Patient was recently admitted to the hospital from October 07 through November 13 secondary to an ileus and small bowel obstruction. Patient underwent laparotomy with lysis of adhesions for over 2 hours and excision of small bowel tumor x 3 closure of decompressive enterostomy partial omentectomy drainage of abdominal ascites 2 L underwent the surgery on October 16, 2023. Patient had an extensive hospital stay on to have Enterococcus and MRSA in the abdominal wound from the Homero-Dalton drain. He was discharged with IV antibiotics. Patient returns to the hospital secondary to 2-day complaints of abdominal pain and KUB x-ray initially showed dilated bowel loops with air fluid levels partial obstruction versus severe ileus. Follow up abdominal pelvis CT was done revealing persistent dilated fluid-filled distal small bowel and at least proximal colonic loops. Colonic obstruction is suspected cannot exclude ischemia or pneumatosis particularly the right colon. Advise lactic acid correlation advised urgent surgical evaluation. Patient's white blood cell count is normal at 9.2, hemoglobin 12.5, sodium 133, potassium 2.7, BUN 15, creatinine 0.53, magnesium 1.5, alk phos 220. Urinalysis is showing 1+ protein, greater than 182 RBCs, rare bacteria. He was admitted to the hospital for general surgery consultation patient is on IV fluids and receiving IV pain medication. 01/17/2024 Patient seen in follow up for Small bowel obstruction due to adhesive band disease, epigastrium --Large bowel obstruction due to internal hernia, transverse colon --Severe protein malnutrition -Continue NG tube-LIS -NPO -Continue pain management, toradol added -Continue TPN for now until diet is able to be advanced -Encourage patient to use incentive spirometer -Encourage patient to increase activity level -DVT prophylaxis subcu heparin and GI prophylaxis Protonix 01/18/2024 Patient is seen and evaluated in room at bedside Sleepy but easily arousable; patient reports no bowel movement or flatus Vital signs are reviewed temperature 98.7, pulse 60, respiration 18 and blood pressure 156/91 Lab review shows sodium of 128, potassium of 4.2, BUNs/creatinine of 11/0.46 and blood glucose of 126 General surgery following and recommending to continue with TPN and gastric decompression till bowel function returns Increase activity as recommended 01/19/24 NG tube and there is 330 mL of clear discharge Patient remains n.p.o., he does not feel hungry He is getting Dilaudid for pain control, his main symptom is abdominal pain No bowel movement, no flatus TPN is running Patient urine is running and Sandoval catheter in place 01/20/2024 Patient is awake sitting in chair NG tube in place No bowel movement Vertical surgical wound with wound VAC in place No chest pain or dyspnea 01/21/2024 Sitting in chair with no distress Abdominal pain and tenderness is controlled He is passing gas today Has bilateral pitting leg edema 01/22/2024 Patient states he has having bowel movement today, he states he has the second bowel movement today. Patient was started on clear liquid diet and he tolerates that well so far No chest pain or dyspnea 01/23/2024 Patient looks comfortable His pain looks controlled No evidence of overt bleeding however his hemoglobin dropped yesterday) 7 down to 7 today. He was started on Toradol yesterday and we will discontinue that. Continue with Protonix and monitor hemoglobin tomorrow Upon patient request I have a lengthy discussion with the patient over the phone discussing the case and management and also we had a lot of emphasis about discharge planning and the importance of outpatient follow-up. All questions answered to their satisfaction. 01/24/2024 Patient tolerates diet and having bowel movement Diet advance per surgery team and well-tolerated Abdominal pain controlled but patient still on pain pump. We will discuss with surgery team discontinuing of the pain pump His hemoglobin today dropped from 7 down to 6.8, 1 unit of blood transfusion is given. Still has mild leukocytosis Sodium level 128 01/25/2024 Patient is tolerates diet well and he has good bowel movement He looks calm and pain control However he still getting pain pump I talked with the patient we need to discontinue the pain pump prior to discharge. Surgery team are following as well Sodium improved to 131 Hemoglobin improved to 9.9 after 1 unit of blood transfusion yesterday for severe anemia 6.8 At home he is not on blood thinner or aspirin 01/26/2024 Patient today lying in bed looks not in significant distress eating his breakfast. Pain pump was stopped yesterday and today he is experiencing little bit more pain than usual which is expected and has been controlled with oral pain medication. He is getting IV Dilaudid 0.5 mg e, requiring 5 doses since yesterday night. Also he got Tererro 7.5 to 2 pills today. He denies coughing or chest pain or dyspnea, no urinary complaints however Sandoval catheter was discontinued recently Today he is experiencing temperature 100.8, 2 days ago had low-grade temperature 100.5. Patient also with mild leukocytosis about 16,000. We will do some workup with chest x-ray and urine analysis and consult infectious disease team.Also will start Augmentin for possible intra-abdominal infection We will hold discharge for now today, patient informed and he is agreeable. 01/27/2024 Patient sitting in chair relaxed however mild distress because of his pain at the surgical site more than last few days which is expected after d discontinuing The pain pump yesterday Is currently taking Tererro and IV Dilaudid 0.5 mg every 3 hours and is significant [id number] Patient eager to go home however he developed low grade fever spikes once 100.5 and 100.8 which is worsening therefore patient was started on Zosyn, ID team evaluated the patient and blood pressure obtained which is pending Patient is hemodynamically stable. Still has mild leukocytosis of about 15,000 01/28/2024 Patient is recovering from his surgery appropriately. He tolerates diet, he has bowel movement. He still has abdominal pain and tenderness however it has been more than 2 weeks since surgery. Patient was so eager to go home today I explained to the patient he has infec tion hide fever that requires finish workup and diagnosis to get the appropriate treatment and he agrees to stay today. Later on blood culture came back positive for Staphylococcus. Antibiotics was a djusted with IV vancomycin pending final result PICC line was removed. Case was discussed with ID team Review of systems CONSTITUTIONAL: No fever, no malaise, no fatigue. HEENT: No recent visual problems or hearing problems. Denied any sore throat. CARDIOVASCULAR: No orthopnea, PND, no palpitations, no syncope. HEMATOLOGICAL: Denies any bleeding or petechiae. GENITOURINARY: Denies any burning micturition, frequency, or urgency. MUSCULOSKELETAL/RHEUMATOLOGICAL: Denies any joint pain, swelling, or any muscle pain. Active Medications Generic Name Dose Route Start Last Admin Trade Name Freq PRN Reason Stop Dose Admin Hydrocodone Bitart/Acetaminophen 1 each 01/25/24 14:54 01/28/24 20:09 Hydrocodone/Apap 7.5-325mg 1 Each Tab PO 1 each Q4HR PRN Administration Pain Heparin Sodium (Porcine) 5,000 unit 01/09/24 09:00 01/28/24 20:10 Heparin Sodium,Porcine 5,000 Unit/Ml 1 Ml Vial SQ 5,000 unit Q12HR EDUARDO Administration Hydromorphone HCl 0.5 mg 01/25/24 14:54 01/28/24 21:51 Hydromorphone 0.5 Mg/0.5 Ml Syringe IVP 0.5 mg Q3HR PRN Administration Pain Sodium Chloride 1,000 mls @ 50 mls/hr 01/16/24 16:00 01/28/24 16:12 Saline 0.9% IV 50 mls/hr .Q20H EDUARDO Administration Vancomycin HCl 1,000 mg/ 250 mls @ 125 mls/hr 01/28/24 16:00 01/28/24 16:49 Sodium Chloride IVPB 125 mls/hr Q12H EDUARDO Administration Magnesium Sulfate/Dextrose 1 100 mls @ 100 mls/hr 01/28/24 22:00 01/28/24 23:11 gm/ IV Solution IVPB 01/28/24 23:59 100 mls/hr Q1H EDUARDO Administration Protocol Ibuprofen 600 mg 01/25/24 14:51 01/28/24 20:10 Ibuprofen 600 Mg Tab PO 600 mg QID PRN Administration Pain Insulin Aspart 0 unit 01/14/24 07:30 01/28/24 20:16 Insulin Aspart (Novolog) 100 Unit/Ml Vial SQ Not Given ACHS EDUARDO Protocol Lactulose 20 gm 01/12/24 09:00 01/28/24 08:51 Lactulose 20 Gm/30 Ml Cup PO 20 gm DAILY EDUARDO Administration Metoprolol Tartrate 50 mg 01/08/24 21:00 01/28/24 20:10 Metoprolol Tartrate 50 Mg Tab PO 50 mg BID EDUARDO Administration Metoprolol Tartrate 2.5 mg 01/14/24 17:17 01/14/24 17:18 Metoprolol Tartrate 5 Mg/5 Ml Vial IVP 2.5 mg ONCE PRN Administration Heart Rate - HIGH Miscellaneous Information 1 each 01/08/24 09:15 Magnesium Replacement Protocol 1 Each Misc MISCELLANE DAILY PRN Per Protocol Protocol Naloxone HCl 0.2 mg 01/14/24 21:11 Naloxone 0.4 Mg/Ml 1 Ml Vial IV Q2M PRN Opioid Reversal Ondansetron HCl 4 mg 01/07/24 18:25 01/24/24 13:52 Ondansetron 4 Mg/2 Ml Vial IVP 4 mg Q8HR PRN Administration Nausea And Vomiting Pantoprazole Sodium 40 mg 01/08/24 09:00 01/28/24 08:50 Pantoprazole 40 Mg/10 Ml Vial IV 40 mg DAILY EDUARDO Administration Simethicone 40 mg 01/09/24 18:15 01/28/24 22:17 Simethicone 40 Mg/0.6 Ml Drops 2,000 Mg/30 Ml Bottle PO 40 mg QID EDUARDO Administration Thiamine HCl 100 mg 01/09/24 09:00 01/28/24 08:51 Thiamine 100 Mg Tab PO 100 mg DAILY EDUARDO Administration Objective - Vital Signs Vital signs: Vital Signs Temp 98.2 F 01/28/24 07:16 Pulse 61 01/28/24 08:00 Resp 16 01/28/24 08:00 BP 131/82 01/28/24 07:16 Pulse Ox 100 01/28/24 07:16 FiO2 Intake & Output 01/27/24 01/28/24 01/28/24 18:59 06:59 18:59 Output Total 200 350 375 Balance -200 -350 -375 Weight 55.3 kg 52.6 kg Output: Urine 200 350 Stool 375 Other: Voiding Method Urinal Urinal Urinal # Voids 2 1 - Exam GENERAL: The patient is alert and oriented x3, not in any acute distress. Well developed, well nourished. HEENT: Pupils are round and equally reacting to light. EOMI. No scleral icterus. No conjunctival pallor. Normocephalic, atraumatic. No pharyngeal erythema. No t hyromegaly. CARDIOVASCULAR: S1 and S2 present. No murmurs, rubs, or gallops. PULMONARY: Chest is clear to auscultation, no wheezing or crackles. -ABDOMEN: Soft, mild diffuse tenderness. Bowel sounds present.. No palpable organomegaly. NG tube has been placed. Vertical midline incision with wound VAC in place MUSCULOSKELETAL: No joint swelling or deformity. EXTREMITIES: No cyanosis, clubbing, or pedal edema. NEUROLOGICAL: Gross neurological examination did not reveal any focal deficits. SKIN: No rashes. - Labs CBC & Chem 7: 01/28/24 04:00 01/28/24 04:00 Labs: Abnormal Lab Results - Last 24 Hours (Table) 01/27/24 01/28/24 01/28/24 Range/Units 08:16 04:00 04:00 WBC 15.85 H 12.5 H (4.50-10.00) X 10*3/uL RBC 3.77 L 3.95 L (4.40-5.60) X 10*6/uL Hgb 8.6 L 8.8 L (13.0-17.0) g/dL Hct 27.3 L 30.2 L (39.6-50.0) % MCV 72.4 L 76.5 L (80.0-97.0) FL MCH 22.8 L 22.4 L (27.0-32.0) pg MCHC 31.5 L 29.3 L (32.0-37.0) g/dL RDW 18.3 H 17.3 H (11.5-14.5) % Plt Count 715 H 721 H (140-440) X 10*3/uL Immature Gran # 0.18 H (0.00-0.04) X 10*3/uL Neutrophils # 13.87 H 10.6 H (1.80-7.70) X 10*3/uL Lymphocytes # 0.79 L 0.8 L (0.90-5.00) X 10*3/uL Eosinophils # 0.01 L (0.04-0.35) X 10*3/uL Sodium 131 L (137-145) mmol/L Carbon Dioxide 21 L (22-30) mmol/L Glucose 71 L (74-99) mg/dL POC Glucose (mg/dL) (70-110) mg/dL Calcium 7.6 L (8.4-10.2) mg/dL Magnesium 1.5 L (1.6-2.3) mg/dL 01/28/24 Range/Units 11:21 WBC (4.50-10.00) X 10*3/uL RBC (4.40-5.60) X 10*6/uL Hgb (13.0-17.0) g/dL Hct (39.6-50.0) % MCV (80.0-97.0) FL MCH (27.0-32.0) pg MCHC (32.0-37.0) g/dL RDW (11.5-14.5) % Plt Count (140-440) X 10*3/uL Immature Gran # (0.00-0.04) X 10*3/uL Neutrophils # (1.80-7.70) X 10*3/uL Lymphocytes # (0.90-5.00) X 10*3/uL Eosinophils # (0.04-0.35) X 10*3/uL Sodium (137-145) mmol/L Carbon Dioxide (22-30) mmol/L Glucose (74-99) mg/dL POC Glucose (mg/dL) 152 H (70-110) mg/dL Calcium (8.4-10.2) mg/dL Magnesium (1.6-2.3) mg/dL Microbiology - Last 24 Hours (Table) 01/26/24 11:46 Blood Culture - Preliminary Blood Assessment and Plan Assessment: Staphylococcus bacteremia on 01/27 Acute small bowel obstruction status post expiratory laparotomy and lysis of additions. post op fever , suspect intraabdominal infection Abdominal pain chronic with sigmoid volvulus Sigmoid volvulus status post colonic decompression Anemia Abdominal distention due to. bowel obstruction improving. Hx of bowel cancer with prior resection and lysis of adhesions and prolonged hospital stay Hypokalemia due to poor oral intake supplemented with IV potassium and improved levels Hyponatremia hypovolemic Hypomagnesemia Abnormal UA due to dehydration Hx of jaw cancer with chemoradiation and trach/peg in the past Hx of pulmonary embolism Severe protein malnutrition patient will be getting PICC line for nutrition may be a candidate for PEG tube if he is not able to increase his oral intake and meet caloric needs. Iron deficiency anemia hx Hx of SVT Hx of ETOH Hx of nicotine use GI prophylaxis. On PPI. DVT prophylaxis with heparin subcu Full Code Plan: Continue with antibiotics as per ID team with IV vancomycin Monitor hemoglobin and transfuse for hemoglobin less than 7. Patient is status post expiratory laparotomy, lysis of additions and reduction of internal hernia and drainage of ascites. General surgery is on board. Continue with oral and IV pain medication per surgery team Patient tolerates diet Has good bowel movement Management of pain pump is deferred to surgery team no iv fluids PT/OT consultation. Prognosis guarded due to multiple medical problems and comorbid conditions..
[2024-01-29 06:09] LABS: Glucose,Whole Blood 92 mg/dL (70-110)
[2024-01-29 07:50] LABS: Anisocytosis Slight; Basophils % (A) 1 %; Eosinophils % (A) 1 %; HCT 28.4 % (39.0-53.0); HGB 8.8 gm/dL (13.0-17.5); Hypochromasia Moderate; Lymphocytes # (A) 0.8 k/uL (1.0-4.8); Lymphocytes % (A) 11 %; MCH 23.8 pg (25.0-35.0); MCHC 31.1 g/dL (31.0-37.0); MCV 76.6 fL (80.0-100.0); Mean Platelet Volume 7.6; Microcytosis Slight; Monocytes # (A) 0.5 k/uL (0-1.0); Monocytes % (A) 7 %; Neutrophils # (A) 5.5 k/uL (1.3-7.7); Neutrophils % (A) 79 %; Platelet Count 674 k/uL (150-450); RBC 3.71 m/uL (4.30-5.90); RDW 17.1 % (11.5-15.5)
[2024-01-29 08:07] LABS: ALT 9 U/L (4-49); AST 17 U/L (17-59); African American GFR (CKD) >90 (>60 ml/min/1.73 sqM); Albumin 1.8 g/dL (3.5-5.0); Albumin/Globulin Ratio 0.7; Alkaline Phosphatase 136 U/L (38-126); Anion Gap 6 mmol/L; Blood Urea Nitrogen 10 mg/dL (9-20); Calcium 7.2 mg/dL (8.4-10.2); Carbon Dioxide 20 mmol/L (22-30); Chloride 104 mmol/L (98-107); Globulin 2.5 g/dL; Glucose 78 mg/dL (74-99); Non-African American GFR(CKD) >90 (>60 ml/min/1.73 sqM); Potassium 3.9 mmol/L (3.5-5.1); Sodium 130 mmol/L (137-145); Total Bilirubin 0.4 mg/dL (0.2-1.3); Total Protein 4.3 g/dL (6.3-8.2)
[2024-01-29 08:19] LABS: C Reactive Protein 14.4 mg/dL (<1.0)
[2024-01-29] MEDS ORDERED: HYDROmorphone 0.5 MG/0.5 ML SYRINGE IVP PRN (11:13)
[2024-01-29 11:39] LABS: Glucose,Whole Blood 98 mg/dL (70-110)
[2024-01-29 15:08] VITALS: BP 160/90; PULSE 61; RESP 17; TEMP 98
--- NOTE | 2024-01-29 16:31 | P.PN ---
Subjective Progress Note Date: 01/29/24 Principal diagnosis: Reason for follow-up is fever Patient is a 43-year-old -[place] male with a past medical history significant for right-sided jaw cancer treated with chemoradiation patient did have a trach and PEG chronic pancreatitis and history of recurrent ileus r equiring multiple admission to the hospital patient presented to the hospital on 01/07/2024 for evaluation of abdominal pain and this patient was status post laparotomy lysis of adhesion reduction and closure of the internal hernia drainage of abdominal ascites culture were negative he did spike a fever prompting this consultation. On today's evaluation that is 01/29/2024,the patient remains to be afebrile, patient is on room air not requiring supplemental oxygen and denies any shortness of breath no chest pain or cough.Patient denies having any nausea or vomiting, no abdominal pain and no diarrhea, patient has been insisting on going home, the patient PICC line was discontinued yesterday. Patient white normalized to 7.0 creatinine 0.54 blood culture with Streptococcus hominis repeat blood cultures pending Objective - Vital Signs Vital signs: Vital Signs Temp 97.3 F L 01/29/24 07:05 Pulse 54 L 01/29/24 08:15 Resp 16 01/29/24 07:05 BP 161/88 01/29/24 07:05 Pulse Ox 100 01/29/24 07:05 FiO2 Intake & Output 01/28/24 01/29/24 01/29/24 18:59 06:59 18:59 Intake Total 1450 Output Total 375 1825 Balance -375 -375 Intake: Intake, IV Titration 1050 Amount Magnesium Sulfate-D5w Pmx 200 1 gm In Dextrose/Water 1 100ml.bag @ 100 mls/hr IVPB Q1H EDUARDO Rx#: [id number] Sodium Chloride 0.9% 1, 600 000 ml @ 50 mls/hr IV . Q20H EDUADRO Rx#:[id number] Vancomycin 1,000 mg In 250 Sodium Chloride 0.9% 250 ml @ 125 mls/hr IVPB Q12H EDUARDO Rx#:[id number] Oral 400 Output: Urine 1825 Stool 375 Other: Voiding Method Urinal Urinal # Voids 3 # Bowel Movements 1 1 - Exam GENERAL DESCRIPTION: Middle-age male up in bed in no distress RESPIRATORY SYSTEM: Unlabored breathing , decreased breath sounds at bases HEART: S1 S2 regular rate and rhythm , ABDOMEN: Soft , no tenderness EXTREMITIES: No edema feet - Labs CBC & Chem 7: 01/29/24 07:12 01/29/24 07:12 Labs: Abnormal Lab Results - Last 24 Hours (Table) 01/28/24 01/28/24 01/29/24 Range/Units 16:18 20:00 07:12 RBC (4.30-5.90) m/uL Hgb (13.0-17.5) gm/dL Hct (39.0-53.0) % MCV (80.0-100.0) fL MCH (25.0-35.0) pg RDW (11.5-15.5) % Plt Count (150-450) k/uL Lymphocytes # (1.0-4.8) k/uL Sodium 130 L (137-145) mmol/L Carbon Dioxide 20 L (22-30) mmol/L Creatinine 0.54 L (0.66-1.25) mg/dL POC Glucose (mg/dL) 119 H 122 H (70-110) mg/dL Calcium 7.2 L (8.4-10.2) mg/dL Alkaline Phosphatase 136 H (38-126) U/L C-Reactive Protein 14.4 H (<1.0) mg/dL Total Protein 4.3 L (6.3-8.2) g/dL Albumin 1.8 L (3.5-5.0) g/dL 01/29/24 Range/Units 07:12 RBC 3.71 L (4.30-5.90) m/uL Hgb 8.8 L (13.0-17.5) gm/dL Hct 28.4 L (39.0-53.0) % MCV 76.6 L (80.0-100.0) fL MCH 23.8 L (25.0-35.0) pg RDW 17.1 H (11.5-15.5) % Plt Count 674 H (150-450) k/uL Lymphocytes # 0.8 L (1.0-4.8) k/uL Sodium (137-145) mmol/L Carbon Dioxide (22-30) mmol/L Creatinine (0.66-1.25) mg/dL POC Glucose (mg/dL) (70-110) mg/dL Calcium (8.4-10.2) mg/dL Alkaline Phosphatase (38-126) U/L C-Reactive Protein (<1.0) mg/dL Total Protein (6.3-8.2) g/dL Albumin (3.5-5.0) g/dL Microbiology - Last 24 Hours (Table) 01/27/24 16:23 Blood Culture Gram Stain - Preliminary Blood Blood Culture - Preliminary Staphylococcus hominis Molecular ID 01/26/24 11:46 Blood Culture - Preliminary Blood Assessment and Plan (1) Fever Status: Acute Code(s): R50.9 - FEVER, UNSPECIFIED SNOMED Code(s): 800833323 (2) Leukocytosis Status: Acute Code(s): D72.829 - ELEVATED WHITE BLOOD CELL COUNT, UNSPECIFIED SNOMED Code(s): 462343246 (3) Bacteremia Status: Acute Code(s): R78.81 - BACTEREMIA SNOMED Code(s): 7949334 Plan: 1patient with low-grade fever over the last 2 days and this patient has been in the hospital for 3 weeks prior to this consultation with admission to the hospital with abdominal pain and this patient who status post laparotomy extensive lysis of additional reduction and closure of internal hernia on 9023 with abdominal culture has been negative source of fever could be possible pneumonia as shown on the chest x-ray was related to his PICC line that has been there for 3 weeks and less likely urinary source. 2 blood cultures coming back positive for Staphylococcus hominis likely related to the PICC line which has been discontinued patient white count has normalized with addition of vancomycin patient advised to stay in the hospital while waiting for repeat blood culture and sensitivity on Staphylococcus hominis however the patient has been refusing and threatening to leave AMA we will consider empiric doxycycline with close outpatient follow-up discussed with admitting physician Dictation was produced using [employer] dictation software. please excuse any grammatical, word or spelling errors. Time with Patient: Less than 30
--- NOTE | 2024-01-30 06:21 | P.DS ---
Providers Date of admission: 01/07/24 18:29 Attending physician: Bernadine Good Consults: 01/07/24 18:25 Consult Physician Routine Consulting Provider: Leta Easton Consult Reason/Comments: known Do you want consulting provider notified?: Yes 01/26/24 09:16 Consult Physician Urgent Consulting Provider: Fransisco White Consult Reason/Comments: fever Do you want consulting provider notified?: Yes Primary care physician: Stated None Hospital Course: Diagnoses: Staphylococcus bacteremia on 01/27 thought secondary to line infection which was removed and leukocytosis improved Acute small bowel obstruction status post expiratory laparotomy and lysis of additions. post op fever , suspect line infection which is removed. Abdominal pain chronic with sigmoid volvulus Sigmoid volvulus status post colonic decompression Anemia Abdominal distention due to. bowel obstruction improving. Hx of bowel cancer with prior resection and lysis of adhesions and prolonged hospital stay Hypokalemia due to poor oral intake supplemented with IV potassium and improved levels Hyponatremia hypovolemic Hypomagnesemia Abnormal UA due to dehydration Hx of jaw cancer with chemoradiation and trach/peg in the past Hx of pulmonary embolism Severe protein malnutrition patient will be getting PICC line for nutrition may be a candidate for PEG tube if he is not able to increase his oral intake and meet caloric needs. 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 Patient also has a history of alcohol abuse and is a former smoker. Patient was recently admitted to the hospital from October 07 through November 13 secondary to an ileus and small bowel obstruction. Patient underwent laparotomy with lysis of adhesions for over 2 hours and excision of small bowel tumor x 3 closure of decompressive enterostomy partial omentectomy drainage of abdominal ascites 2 L underwent the surgery on October 16, 2023. Patient had an extensive hospital stay on to have Enterococcus and MRSA in the abdominal wound from the Homero-Dalton drain. He was discharged with IV antibiotics. Patient returns to the hospital secondary to 2-day complaints of abdominal pain and KUB x-ray initially showed dilated bowel loops with air fluid levels partial obstruction versus severe ileus. Follow up abdominal pelvis CT was done revealing persistent dilated fluid-filled distal small bowel and at least proximal colonic loops. Colonic obstruction is suspected cannot exclude ischemia or pneumatosis particularly the right colon. Advise lactic acid correlation advised urgent surgical evaluation. On 01/13 patient underwent open exploratory laparotomy with extensive lysis of adhesions with the surgeon Dr. Andujar followed by reduction and closure of internal hernia epigastrium ligament of Treitz, drainage of abdominal ascites 300 cc. Postoperatively patient was monitored closely in the hospital, he was improving slowly and gradually. Eventually patient tolerated diet well and had good bowel movement and his abdominal pain controlled. Pain pump was discontinued. Also patient was getting TPN through PICC line through his prolonged hospitalization. Prior to hospitalization patient developed 2 spikes of fever 100.5 and 100.8, workup showed positive blood culture with Staph hominis thought secondary to her IV line which was discontinued. Patient received 1 dose of vancomycin and his white cell count came back to normal down to 7.0K patient was feeling so well he was adamant to leave from yesterday however he agrees to stay 1 day and today he was adamant again to leave with no other excuse we tried to explain to the patient with treating him for infection he replies " I came here only for surgery" given infectious disease team tried to talk to him he was convinced he has to leave especially today is 28 January. And he does not want to wait in the hospital anymore. He does not want to wait till blood culture to finalize. I asked the patient if the repeated blood culture came back positive and we call him then is he willing to come back to the hospital (?) and he answered "yes", because of this ID team cleared him for discharge Other than that patient denies any other complaints. He walked in the room with no difficulty. Has good appetite. No urinary problems. No chest pain or dyspnea and mentation at baseline. Patient will be discharged on short course of oral doxycycline per ID team who sent the prescription to the pharmacy Patient also cleared for discharge by our general surgery team who provided patient prescription for him upon discharge per their recommendation Problems and management plan were discussed with the patient and he verbalized understanding and acceptance Patient was found stable and can be discharged home in guarded prognosis however he needs follow-up as an outpatient. Patient was instructed to follow up with PCP within one week and patient agrees. Patient states that he has PCP but he does not have his contact information handy but at home he can get it and he can call and make appointment as instructed above. Also could not remember the name of his PCP Patient was instructed to follow-up with the surgeon with the surgeon Dr. Andujar on 02/10/10 specifically and he said he will follow-up on a agrees with the appointment date and time Patient was instructed to follow-up with ID team Dr. White in 1 week after discharge and he agreed Physical exam -Gen: patient is a AAOx3, no distress. Thin built CVS: S1-S2, RRR, no murmur Lungs: B/L CTA, no wheezing -Abdomen: soft, no distention, no tenderness, positive bowel sounds. Vertical surgical wound is completely closed with no laurence Extremity: no leg edema or induration Time spent more than 35 minutes Patient Condition at Discharge: Serious Plan - Discharge Summary Discharge Rx Participant: Yes New Discharge Prescriptions: New Acetaminophen Tab [Tylenol Tab] 500 mg PO Q6H PRN #30 tablet PRN Reason: Pain Doxycycline [Vibramycin] 100 mg PO BID 10 Days #20 capsule Cyclobenzaprine [Flexeril] 10 mg PO TID #30 tab Simethicone [Gas-X] 125 mg PO AC-TID PRN #20 capsule PRN Reason: Pain Ibuprofen [Motrin] 600 mg PO Q8HR PRN #30 tab PRN Reason: Pain Omeprazole [PriLOSEC] 20 mg PO AC-BRKFST 10 Days #10 cap Continue Lactulose [Cephulac] 30 gm PO DAILY PRN #90 ml PRN Reason: Constipation Metoprolol Tartrate [Lopressor] 50 mg PO BID 30 Days #60 tab Thiamine [Vitamin B-1] 100 mg PO DAILY #20 tablet Discontinued amLODIPine [Norvasc] 5 mg PO DAILY #30 tab Discharge Medication List Thiamine [Vitamin B-1] 100 mg PO DAILY #20 tablet 11/14/23 [Rx] Acetaminophen Tab [Tylenol Tab] 500 mg PO Q6H PRN #30 tablet 01/28/24 [Rx] Cyclobenzaprine [Flexeril] 10 mg PO TID #30 tab 01/28/24 [Rx] Ibuprofen [Motrin] 600 mg PO Q8HR PRN #30 tab 01/28/24 [Rx] Simethicone [Gas-X] 125 mg PO AC-TID PRN #20 capsule 01/28/24 [Rx] Doxycycline [Vibramycin] 100 mg PO BID 10 Days #20 capsule 01/29/24 [Rx] Lactulose [Cephulac] 30 gm PO DAILY PRN #90 ml 01/29/24 [Rx] Metoprolol Tartrate [Lopressor] 50 mg PO BID 30 Days #60 tab 01/29/24 [Rx] Omeprazole [PriLOSEC] 20 mg PO AC-BRKFST 10 Days #10 cap 01/29/24 [Rx] Follow up Appointment(s)/Referral(s): Leta Easton MD [STAFF PHYSICIAN] - 02/03/24 None,Stated [Primary Care Provider] - 1-2 days Fransisco White MD [STAFF PHYSICIAN] - 1 Week Patient Instructions/Handouts: Bowel Obstruction (DC), Lysis of Abdominal Adhesions (DC) Activity/Diet/Wound Care/Special Instructions: No lifting for 4 pounds in 4 weeks, February 12 NO LONG DRIVES OR AIRPLANE RIDES OVER 30 MINUTES FOR THE NEXT 2 WEEKS DUE TO HIGH RISK OF PULMONARY EMBOLISM/DVTs Using antibacterial soap. May shower. No bathtub soaks for 2 weeks, January 27 Wear abdominal binder daily for comfort except for showering. Use ice along incisions for today to prevent swelling. Use Tylenol, simethicone and ibuprofen or Aleve scheduled for the next 24-48 hours for best pain relief. Discharge/Stand Alone Forms: AA Meetings [facility], Outpatient Counseling, Inp Substance Abuse Facilities Discharge Disposition: HOME WITH HOME HEALTH SERVICES
[2024-01-30] MEDS ORDERED: VANCOMYCIN TROUGH DUE 1 EACH MISC MISCELLANE ONE (15:00)
== END 2024-01-29 16:23 | disposition home or self-care (01) | DRG 224 ==
LOC: EC 12:51 → 4SSUR 18:29
PROVIDERS: ADMIT Hospitalist; ATTEND Hospitalist
PROC: 0D9N8ZZ Drainage of Sigmoid Colon, Via Natural or Artificial Opening Endoscopic (ICD-10-PCS; 2024-01-09)
PROC: 02HV33Z Insertion of Infusion Device into Superior Vena Cava, Percutaneous Approach (ICD-10-PCS; 2024-01-12)
PROC: 3E0436Z Introduction of Nutritional Substance into Central Vein, Percutaneous Approach (ICD-10-PCS; 2024-01-12)
PROC: 0DNM0ZZ Release Descending Colon, Open Approach (ICD-10-PCS; 2024-01-14)
PROC: 0WQF0ZZ Repair Abdominal Wall, Open Approach (ICD-10-PCS; 2024-01-14)
PROC: 0W9G0ZZ Drainage of Peritoneal Cavity, Open Approach (ICD-10-PCS; 2024-01-14)
PROC: 0DNB0ZZ Release Ileum, Open Approach (ICD-10-PCS; principal; 2024-01-14 08:30)
DX: K56.2 Volvulus (principal); T80.218A Other infection due to central venous catheter, initial encounter; E43 Unspecified severe protein-calorie malnutrition; K86.0 Alcohol-induced chronic pancreatitis; K56.50 Intestinal adhesions [bands], unspecified as to partial versus complete obstruction; R78.81 Bacteremia; E88.A Wasting disease (syndrome) due to underlying condition; R18.8 Other ascites; K46.0 Unspecified abdominal hernia with obstruction, without gangrene; E87.1 Hypo-osmolality and hyponatremia; I11.9 Hypertensive heart disease without heart failure; F10.11 Alcohol abuse, in remission; D50.9 Iron deficiency anemia, unspecified; B95.7 Other staphylococcus as the cause of diseases classified elsewhere; G89.29 Other chronic pain; K59.09 Other constipation; E86.0 Dehydration; E87.6 Hypokalemia; E86.1 Hypovolemia; E83.42 Hypomagnesemia; R50.82 Postprocedural fever; N50.89 Other specified disorders of the male genital organs; E16.2 Hypoglycemia, unspecified; Y71.1 Therapeutic (nonsurgical) and rehabilitative cardiovascular devices associated with adverse incidents; Z68.1 Body mass index [BMI] 19.9 or less, adult; Z85.830 Personal history of malignant neoplasm of bone; Z92.21 Personal history of antineoplastic chemotherapy; Z92.3 Personal history of irradiation; Z86.14 Personal history of Methicillin resistant Staphylococcus aureus infection; Z86.711 Personal history of pulmonary embolism; Z79.899 Other long term (current) drug therapy; Z87.891 Personal history of nicotine dependence; Z90.49 Acquired absence of other specified parts of digestive tract; Z86.19 Personal history of other infectious and parasitic diseases; Z87.19 Personal history of other diseases of the digestive system; Z85.818 Personal history of malignant neoplasm of other sites of lip, oral cavity, and pharynx; Z86.79 Personal history of other diseases of the circulatory system
CPT/HCPCS: 36410; 36415; 36573; 45393; 71045; 74018; 74019; 74177; 76937; 80048; 80053; 81001; 82150; 82330; 83605; 83690; 83735; 84100; 84145; 84478; 85025; 85027; 85610; 85730; 86140; 86850; 86900; 86901; 86920; 87040; 87070; 87075; 87077; 87186; 87205; 88305; 96361; 96365; 96366; 96375; 99285

== ENCOUNTER 2024-06-07 14:30 | Emergency (ER) | payer OTHER ==
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
[2024-06-07] MEDS: KETOROLAC 15 MG/ML 1 ML VIAL IM STA (17:08)
--- NOTE | 2024-06-07 17:35 | XR ---
EXAMINATION TYPE: XR lumbar spine 2 or 3V DATE OF EXAM: 06/07/2024 5:21 PM COMPARISON: None. CLINICAL INDICATION: Male, 43 years old with history of Low back pain, TECHNIQUE: XR lumbar spine 2 or 3V view(s) obtained. FINDINGS: There are 5 lumbar-type vertebral bodies. Pedicles are intact. Disc heights are preserved. Vertebral body heights are preserved. There is side bending towards the left There is some dense calcification anterior to the vertebral L3 level of uncertain etiology. This appe ars to be present on a comparison CT of 01/07/2024 IMPRESSION: 1. No acute lumbar spine abnormality. Side bending towards the left is noted [facility], , 06/07/2024 5:33 PM
[2024-06-07 17:42] LABS: Basophils % (A) 0 %; Eosinophils # (A) 0.1 k/uL (0-0.7); Eosinophils % (A) 1 %; HCT 35.7 % (39.0-53.0); HGB 11.4 gm/dL (13.0-17.5); Hypochromasia Slight; Lymphocytes # (A) 1.9 k/uL (1.0-4.8); Lymphocytes % (A) 20 %; MCH 24.8 pg (25.0-35.0); MCHC 31.8 g/dL (31.0-37.0); MCV 77.8 fL (80.0-100.0); Mean Platelet Volume 7.3; Microcytosis Slight; Monocytes # (A) 0.3 k/uL (0-1.0); Monocytes % (A) 3 %; Neutrophils # (A) 7.3 k/uL (1.3-7.7); Neutrophils % (A) 75 %; Platelet Count 491 k/uL (150-450); RBC 4.59 m/uL (4.30-5.90); RDW 15.7 % (11.5-15.5); WBC 9.7 k/uL (3.8-10.6)
[2024-06-07 17:50] LABS: INR 1.2 (<1.2); Partial Thromboplastin Time 24.5 sec (22.0-30.0); Prothrombin Time 12.4 sec (10.0-12.5)
[2024-06-07 17:55] LABS: ALT 21 U/L (4-49); AST 32 U/L (17-59); African American GFR (CKD) >90 (>60 ml/min/1.73 sqM); Albumin 3.5 g/dL (3.5-5.0); Alkaline Phosphatase 137 U/L (38-126); Anion Gap 3 mmol/L; Blood Urea Nitrogen 34 mg/dL (9-20); Calcium 7.8 mg/dL (8.4-10.2); Carbon Dioxide 39 mmol/L (22-30); Chloride 90 mmol/L (98-107); Glucose 129 mg/dL (74-99); Non-African American GFR(CKD) >90 (>60 ml/min/1.73 sqM); Sodium 132 mmol/L (137-145); Total Bilirubin 0.7 mg/dL (0.2-1.3); Total Protein 6.3 g/dL (6.3-8.2)
[2024-06-07 17:56] LABS: Potassium 5.3 mmol/L (3.5-5.1)
[2024-06-07 18:15] LABS: ABG Base Excess 11.6 mmol/L; ABG HCO3 35 mmol/L (21-25); ABG Oxygen Saturation 96.4 % (94-97); ABG PCO2 42 mmHg (35-45); ABG PH 7.54 (7.35-7.45); ABG PO2 73 mmHg (83-108); ABG TCO2 37 mmol/L (19-24); Allen Test Performed? Yes
[2024-06-07] MEDS: SODIUM CHLORIDE 0.9% 1,000 ML IV STA (18:34)
[2024-06-07] MEDS: MORPHINE SULFATE 4 MG/ML SYRINGE IVP STA (18:36)
[2024-06-07] MEDS: PANTOPRAZOLE 40 MG/10 ML VIAL IVP STA ×2 (18:38→23:02)
[2024-06-07 19:11] LABS: Alcohol <10 mg/dL; Amylase 59 U/L (30-110); Lipase 58 U/L (23-300)
--- NOTE | 2024-06-07 20:24 | CT ---
EXAMINATION TYPE: CT abdomen pelvis w con DATE OF EXAM: 06/07/2024 7:07 PM COMPARISON: 01/07/2024 CLINICAL INDICATION: Male, 43 years old with history of back pain, ABD PAIN/HX PANCREATITIS TECHNIQUE: Axial images were obtained from above the diaphragm to the pubic rami in the axial plane a t 5 mm thick sections. Reconstructed images are reviewed on the computer in the coronal plane. CONTRAST: 100 mL of Isovue 300. Study performed without Oral Contrast DLP: 388.2 mGycm, Automated exposure control for dose reduction was used. FINDINGS: Limited CT sections are obtained the lung bases. The lung bases are clear. CT ABDOMEN: Liver: Moderate fatty infiltration of liver. No discrete masses Spleen: Normal Pancreas: Atrophy, chronic calcifications compatible with chronic pancreatitis Adrenal glands: The adrenal glands are normal. Gallbladder: Not identified Kidneys: No masses are evident. No hydronephrosis is present. No cysts are present. Delayed images were obtained through the kidneys, which remain unremarkable. Aorta: Normal Inferior vena cava: Poorly visualized. This may be partially related to volume status. CT PELVIS: Multiple dilated loops of bowel are present within the abdomen and pelvis. Ascending colon contains f ecal debris. Air-fluid levels are within stomach and transverse colon. Dilated fluid-filled small bow el loops within the pelvis. No zone of transition is identified Air and fecal debris within the dista l colon to the rectum . This study is without oral contrast limiting bowel evaluation Appendix: Normal as visualized. Not identified. No suspicious dilated tubular structure evident Urinary bladder: Normal. Genitourinary structures: Prostate is not well visualized Osseous structures: No suspicious lytic or sclerotic lesions. IMPRESSION: 1. Dilated loops of bowel with air and fluid within the colon. Findings suspicious for ileus and par tial small bowel obstruction. Follow-up recommended. 2. Moderate fatty infiltration liver. 3. Chronic pancreatitis [facility], , 06/07/2024 8:21 PM
[2024-06-07] MEDS ORDERED: NALOXONE 0.4 MG/ML 1 ML VIAL IV PRN (20:29)
[2024-06-07] MEDS: SODIUM CHLORIDE 0.9% 1,000 ML IV SCH (20:39)
[2024-06-07] MEDS: MORPHINE SULFATE 4 MG/ML SYRINGE IV PRN (20:40)
--- NOTE | 2024-06-07 20:46 | XR ---
EXAMINATION TYPE: XR chest 2V DATE OF EXAM: 06/07/2024 7:26 PM COMPARISON: 01/26/2024 CLINICAL INDICATION: Male, 43 years old with history of lbp, TECHNIQUE: XR chest 2V view(s) obtained. FINDINGS: The heart size is normal. The pulmonary vasculature is normal. The lungs are clear. Port is present on the right with the tip in superior vena cava region IMPRESSION: 1. No acute pulmonary process. [facility], , 06/07/2024 8:44 PM
[2024-06-07 23:13] LABS: Basophils % (A) 0 %; Eosinophils % (A) 0 %; Hypochromasia Slight; Lymphocytes # (A) 2.7 k/uL (1.0-4.8); Lymphocytes % (A) 33 %; MCH 24.6 pg (25.0-35.0); MCHC 31.7 g/dL (31.0-37.0); MCV 77.5 fL (80.0-100.0); Mean Platelet Volume 7.6; Microcytosis Slight; Monocytes # (A) 0.5 k/uL (0-1.0); Monocytes % (A) 6 %; Neutrophils # (A) 4.8 k/uL (1.3-7.7); Neutrophils % (A) 59 %; Platelet Count 365 k/uL (150-450); RBC 2.14 m/uL (4.30-5.90); RDW 15.7 % (11.5-15.5); WBC 8.2 k/uL (3.8-10.6)
[2024-06-07 23:21] LABS: HCT 16.6 % (39.0-53.0); HGB 5.3 gm/dL (13.0-17.5)
[2024-06-08 00:06] VITALS: RESP 16
[2024-06-08] MEDS: MORPHINE SULFATE 2 MG/ML SYRINGE IM STA (00:28)
[2024-06-08] MEDS: SODIUM CHLORIDE 0.9% 250 ML IV SCH (00:58)
[2024-06-08 01:18] VITALS: BP 91/77; PULSE 115; TEMP 97.5
[2024-06-08] MEDS ORDERED: PANTOPRAZOLE 40 MG/10 ML VIAL IV SCH (09:00)
== END 2024-06-08 01:20 | disposition other institution (70) ==
LOC: EC 14:30 → UNDOADMIN 20:31 → 5NMEDONC 20:31 → EC 06-08 01:20
DX: K56.600 Partial intestinal obstruction, unspecified as to cause (principal); Z87.891 Personal history of nicotine dependence
CPT/HCPCS: 96376 ×3; 96372 ×3; 96361 ×2; 96374 ×2; 96375 ×2; 99285 ×2; 36430 ×2; 36415; 36600; 93005; 86900; 86901; 80053; 82150; 82805; 83605; 83690; 85025; 85610; 85730; 86850; 86920; 72100; 71046; 74177; P9016 ×2; G0480; J2270 ×2; J1885; Q9967; J2470; 80320

== ENCOUNTER 2024-06-22 18:49 | Inpatient (IN) | payer OTHER ==
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
[2024-06-22] MEDS: SODIUM CHLORIDE 0.9% 1,000 ML IV STA (20:06)
[2024-06-22] MEDS: MORPHINE SULFATE 4 MG/ML SYRINGE IVP STA (20:07)
[2024-06-22] MEDS: ONDANSETRON 4 MG/2 ML VIAL IVP STA (20:07)
[2024-06-22 20:19] LABS: Anisocytosis Slight; Basophils % (A) 0 %; Eosinophils % (A) 0 %; HCT 27.4 % (39.0-53.0); Hypochromasia Moderate; Lymphocytes % (A) 9 %; MCH 27.3 pg (25.0-35.0); Mean Platelet Volume 6.7; Monocytes # (A) 0.3 k/uL (0-1.0); Monocytes % (A) 3 %; Neutrophils # (A) 10.1 k/uL (1.3-7.7); Neutrophils % (A) 88 %; Platelet Count 497 k/uL (150-450); Poikilocytosis Slight; RDW 16.1 % (11.5-15.5); WBC 11.6 k/uL (3.8-10.6)
[2024-06-22 20:34] LABS: HGB 8.8 gm/dL (13.0-17.5); MCV 85.5 fL (80.0-100.0)
[2024-06-22 20:40] LABS: NT-Pro-B-Type Natriuretic Pept 938 pg/mL
[2024-06-22 20:58] LABS: ALT 26 U/L (4-49); AST 27 U/L (17-59); African American GFR (CKD) >90 (>60 ml/min/1.73 sqM); Albumin 2.3 g/dL (3.5-5.0); Alkaline Phosphatase 144 U/L (38-126); Amylase 84 U/L (30-110); Anion Gap 1 mmol/L; Blood Urea Nitrogen 14 mg/dL (9-20); Calcium 7.4 mg/dL (8.4-10.2); Carbon Dioxide 32 mmol/L (22-30); Chloride 103 mmol/L (98-107); Glucose 89 mg/dL (74-99); Lipase 47 U/L (23-300); Magnesium 1.5 mg/dL (1.6-2.3); Non-African American GFR(CKD) >90 (>60 ml/min/1.73 sqM); Potassium 3.2 mmol/L (3.5-5.1); Sodium 136 mmol/L (137-145); Total Bilirubin 0.3 mg/dL (0.2-1.3); Total Protein 4.6 g/dL (6.3-8.2)
[2024-06-22 21:16] LABS: INR 1.3 (<1.2)
--- NOTE | 2024-06-22 21:37 | US ---
EXAMINATION TYPE: US venous doppler duplex LE BI DATE OF EXAM: 06/22/2024 9:28 PM COMPARISON: 09/26/23 CLINICAL INDICATION: Male, 43 years old with history of Leg pain and swelling; Leg pain and swelling, TECHNIQUE: The lower extremity deep venous system is examined utilizing real time linear array sonog noble with graded compression, color doppler sonography, and spectral doppler. SIDE PERFORMED: Bilateral FINDINGS: VESSELS IMAGED: Common Femoral Vein Deep Femoral Vein Greater Saphenous Vein Femoral Vein Popliteal Vein Small Saphenous Vein Proximal Calf Veins Study is suboptimal due to patient body habitus. Right Leg: Negative for DVT, Color Doppler imaging shows patency of the vessels. Spectral waveforms are within normal limits. Fluid seen anterior to the popliteal vein near bone. Left Leg: Negative for DVT, Color Doppler imaging shows patency of the vessels. Spectral waveforms a re within normal limits. IMPRESSION: No ultrasound evidence for deep venous thrombosis. [facility], , 06/22/2024 9:35 PM
[2024-06-22] MEDS: METOCLOPRAMIDE 5 MG/ML 2 ML VIAL IVP STA (22:40)
[2024-06-22] MEDS: HYDROmorphone 1 MG/ML 1 ML SYRINGE IVP STA (22:41)
[2024-06-22] MEDS: POTASSIUM CHLORIDE 20 MEQ in WATER FOR INJECTION 1 100ML.BAG IVPB STA (23:03)
[2024-06-22] MEDS: MAGNESIUM SULFATE-D5W PMX 1 GM in DEXTROSE/WATER 1 100ML.BAG IVPB SCH (23:03)
--- NOTE | 2024-06-23 00:16 | CT ---
EXAM: CT Abdomen and Pelvis Without Intravenous Contrast CLINICAL HISTORY: ITS.REASON CT Reason: Back pain, abdominal pain, N/V TECHNIQUE: Axial computed tomography images of the abdomen and pelvis without intravenous contrast. CTDI is 5.1 mGy and DLP is 306.2 mGy-cm. This CT exam was performed using one or more of the following dose reduction techniques: automated exposure control, adjustment of the mA and/or kV according to patient size, and/or use of iterative reconstruction technique. COMPARISON: No relevant prior studies available. FINDINGS: Lung bases: Unremarkable. No mass. No consolidation. ABDOMEN: Liver: Unremarkable. Gallbladder and bile ducts: Unremarkable. No calcified stones. No ductal dilation. Pancreas: Atrophy and calcifications in the pancreas, consistent with sequelae of pancreatitis (chronic pancreatitis). No ductal dilation. Spleen: Unremarkable. No splenomegaly. Adrenals: Unremarkable. No mass. Kidneys and ureters: Unremarkable. No hydronephrosis, nephrolithiasis, or obstructive uropathy. Stomach and bowel: Dilated small bowel, measuring up to 3.3 cm, consistent with bowel obstruction. Area of transition is not well identified. Correlate for need for surgical evaluation or NG tube. No mucosal thickening. PELVIS: Appendix: No findings to suggest acute appendicitis. Bladder: Unremarkable. No stones. Reproductive: Unremarkable as visualized. ABDOMEN and PELVIS: Intraperitoneal space: See below. Bones/joints: No acute fracture. No dislocation. Soft tissues: Anasarca. Ascites. Vasculature: Unremarkable. No abdominal aortic aneurysm. Lymph nodes: Unremarkable. No enlarged lymph nodes. IMPRESSION: 1. No hydronephrosis, nephrolithiasis, or obstructive uropathy. 2. Dilated small bowel, measuring up to 3.3 cm, consistent with bowel obstruction. Area of transition is not well identified. Correlate for need for surgical evaluation or NG tube. 3. Atrophy and calcifications in the pancreas, consistent with sequelae of pancreatitis. 4. Anasarca. Ascites.
[2024-06-23] MEDS ORDERED: NALOXONE 0.4 MG/ML 1 ML VIAL IV PRN (00:48)
[2024-06-23] MEDS ORDERED: ONDANSETRON 4 MG/2 ML VIAL IVP PRN (00:48)
[2024-06-23] MEDS ORDERED: ACETAMINOPHEN TAB 325 MG TAB PO PRN (00:48)
[2024-06-23] MEDS ORDERED: METOCLOPRAMIDE 5 MG/ML 2 ML VIAL IVP PRN (00:50)
[2024-06-23] MEDS: SODIUM CHLORIDE 0.9% 1,000 ML IV STA (01:05)
[2024-06-23] MEDS: HYDROmorphone 1 MG/ML 1 ML SYRINGE IVP STA (01:06)
[2024-06-23] MEDS: SODIUM CHLORIDE 0.9% 1,000 ML IV SCH (01:08)
[2024-06-23] MEDS: PIPERACILLIN-TAZOBACTAM 3.375 GM in SODIUM CHLORIDE 0.9% 100 ML IVPB SCH (02:31)
--- NOTE | 2024-06-23 03:55 | XR ---
EXAM: XR Chest, 1 View CLINICAL HISTORY: ITS.REASON XR Reason: confirm NG tube placement TECHNIQUE: Frontal view of the chest. COMPARISON: No relevant prior studies available. FINDINGS: Lungs: Unremarkable. No consolidation. Pleural space: Unremarkable. No pneumothorax. Heart: Unremarkable. No cardiomegaly. Mediastinum: Unremarkable. Normal mediastinal contour. Bones/joints: Unremarkable. No acute fracture. Tubes, lines and devices: Feeding tube terminates in the stomach. RIGHT Port-A-Cath terminates in the SVC. IMPRESSION: No acute findings in the chest.
[2024-06-23] MEDS: HYDROmorphone 1 MG/ML 1 ML SYRINGE IVP PRN (04:07)
[2024-06-23 07:46] LABS: Appearance,Urine Clear (Clear); Bilirubin,Urine Negative (Negative); Blood,Urine Negative (Negative); Color,Urine Colorless; Glucose,Urine (UA) Negative (Negative); Ketones,Urine 1+ (Negative); Leukocyte Esterase,Urine Negative (Negative); Nitrite,Urine Negative (Negative); Protein,Urine Negative (Negative); Specific Gravity,Urine 1.014 (1.001-1.035); Urobilinogen,Urine <2.0 mg/dL (<2.0)
[2024-06-23] MEDS: PANTOPRAZOLE 40 MG/10 ML VIAL IV SCH (08:59)
[2024-06-23] MEDS ORDERED: Potassium Replacement Protocol 1 EACH MISC MISCELLANE PRN (13:33)
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
[2024-06-23] MEDS: METOPROLOL TARTRATE 25 MG TAB PO SCH (13:48)
[2024-06-23] MEDS ORDERED: POTASSIUM CHLORIDE 10 MEQ in WATER FOR INJECTION 1 100ML.BAG IVPB SCH (14:00)
[2024-06-23] MEDS: POTASSIUM CHLORIDE 20 MEQ in WATER FOR INJECTION 1 100ML.BAG IVPB SCH (14:43)
[2024-06-23] MEDS: KETOROLAC 15 MG/ML 1 ML VIAL IVP PRN (14:43)
[2024-06-23] MEDS: ACETAMINOPHEN IV (For NPO) 1,000 MG in EMPTY BAG 1 BAG IVPB SCH (16:54)
[2024-06-23] MEDS: 0.9% NACL WITH KCL 20 MEQ/L 1,000 ML IV SCH (16:55)
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
[2024-06-23] MEDS: HYDROmorphone 0.5 MG/0.5 ML SYRINGE IVP PRN (18:11)
--- NOTE | 2024-06-23 19:17 | XR ---
EXAMINATION TYPE: XR abdomen 2V DATE OF EXAM: 06/23/2024 6:42 PM COMPARISON: 01/11/2024 CLINICAL INDICATION: Male, 43 years old with history of bowel obstruction; distention/pain TECHNIQUE: Two views of the abdomen were obtained. FINDINGS/IMPRESSION: Gaseous dilation of bowel throughout the abdomen improved from prior 01/11/2024. Nasogastric tube in a ppropriate position. Large amount stool in the rectum. [facility], , 06/23/2024 7:15 PM
[2024-06-24] MEDS: ENOXAPARIN 40 MG/0.4 ML SYRINGE SQ SCH (08:48)
[2024-06-24 10:25] LABS: BUN/Creat Ratio 15.17 Ratio (12.00-20.00); Blood Urea Nitrogen 9.1 mg/dL (9.0-27.0); Carbon Dioxide 28.4 mmol/L (21.6-31.8); Chloride 101 mmol/L (96-109); Glucose 76 mg/dL (70-110); Magnesium 1.5 mg/dL (1.5-2.4); Potassium 4.2 mmol/L (3.5-5.5); Sodium 137 mmol/L (135-145)
[2024-06-24 10:26] LABS: Calcium 7.7 mg/dL (8.7-10.3)
[2024-06-24 11:57] LABS: HCT 27.3 % (39.6-50.0); HGB 8.7 g/dL (13.0-17.0); MCH 26.9 pg (27.0-32.0); MCHC 31.9 g/dL (32.0-37.0); MCV 84.5 FL (80.0-97.0); Mean Platelet Volume 8.6 FL (9.5-12.2); NRBC Per 100 WBC 0 X 10*3/uL (0.00-0.01); Platelet Count 415 X 10*3/uL (140-440); RBC 3.23 X 10*6/uL (4.40-5.60); WBC 5.62 X 10*3/uL (4.50-10.00)
[2024-06-24] MEDS ORDERED: Magnesium Replacement Protocol 1 EACH MISC MISCELLANE PRN (12:40)
--- NOTE | 2024-06-24 12:42 | P.PN ---
Subjective Progress Note Date: 06/24/24 43-year-old male came in with complaints of abdominal pain back pain found to have small bowel obstruction patient has an NG tube with around 1000 cc of NG tube drainage. Patient was having nausea vomiting before he came in. 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 Patient is getting Dilaudid quite often and is on high doses of Dilaudid here which will be discontinued and patient will be started on Toradol and IV Tylenol for pain. Patient had a history of bowel resection in the past 06/24/2024 Was evaluated in follow-up on the medical floor. NG tube remains with total of 350 mL of gastric drainage overnight. He continues to report significant abdominal pain. Had a repeat abdominal x-ray today which reveals large amount of stool in the rectum with improved gaseous dilatation. He is on IV Zosyn. General surgery following closely. magnesium 1.5. Review of Systems Constitutional: Denied any fatigue denied any fever. Cardio vascular: denied any chest pain, palpitations Gastrointestinal: denied any nausea, vomiting, diarrhea Pulmonary: Denied any shortness of breath cough Neurologic denied any new focal deficits All inpatient medications were reviewed and appropriate changes in these medications as dictated in the interval history and assessment and plan. PHYSICAL EXAMINATION: GENERAL: The patient is alert and oriented x3, thin built cachectic male and has a port in the chest for chemotherapy looks older than the stated age HEENT: Pupils are round and equally reacting to light. EOMI. No scleral icterus. No conjunctival pallor. Normocephalic, atraumatic. No pharyngeal erythema. No thyromegaly. CARDIOVASCULAR: S1 and S2 present. No murmurs, rubs, or gallops. PULMONARY: Chest is clear to auscultation, no wheezing or crackles. ABDOMEN: Soft, reports abdominal pain. Tender. Nondistended, normoactive bowel sounds. No palpable organomegaly. MUSCULOSKELETAL: No joint swelling or deformity. EXTREMITIES: No cyanosis, clubbing, or pedal edema. NEUROLOGICAL: Gross neurological examination did not reveal any focal deficits. SKIN: No rashes. Assessment and plan -Small bowel obstruction: Conservative measures NG tube, increase IV fluids 100 cc replace potassium. Surgical consultation and Protonix avoid opiates, start on Toradol and IV Tylenol for pain cut down the Dilaudid -Hypomagnesemia from poor diet and oral intake. Replace magnesium. -Jaw cancer cancer which is on remission, had a chemotherapy and radiation therapy in the past -History of PE in the past presently not on anticoagulation patient will be started on DVT prophylaxis. Here with subcutaneous heparin -Moderate malnutrition: Will benefit from Ensure Plus or boost DVT prophylaxis: Subcutaneous Lovenox as mentioned above Repeat blood work in the AM. IV magnesium ordered. Continue IV fluids. NG tube in place to suction. The impression and plan of care has been dictated by Minda Tejada, Nurse Practitioner as directed. Dr. aCrin MD I have performed a history and physical examination and medical decision making of this patient, discussed the same with the dictator, and agree with the dictators assessment and plan as written, documented as a scribe. Based on total visit time, I have performed more than 50% of this visit. Objective - Vital Signs Vital signs: Vital Signs Temp 97.6 F 06/23/24 12:22 Pulse 57 L 06/24/24 06:04 Resp 16 06/24/24 06:04 BP 171/101 06/24/24 06:04 Pulse Ox 100 06/24/24 06:04 FiO2 Intake & Output 06/23/24 06/24/24 06/24/24 18:59 06:59 18:59 Intake Total 1040 Output Total 0651 771 5800 Balance -1050 -300 -260 Intake: Intake, IV Titration 800 Amount 0.9% NaCl with KCl 20 Meq 600 /l 1,000 ml @ 100 mls/hr IV .Q10H [facility] Rx#: [id number] ACETAMINOPHEN IV (For NPO 100 ) 1,000 mg In Empty Bag 1 bag @ 400 mls/hr IVPB Q6HR [facility] Rx#:[id number] Piperacillin-Tazobactam 3 100 .375 gm In Sodium Chloride 0.9% 100 ml @ 25 mls/hr IVPB Q8H [facility] Rx#: [id number] Oral 240 Output: Gastric Drainage 550 Urine [id number] Other: Voiding Method Urinal Urinal # Voids 4 - Labs CBC & Chem 7: 06/24/24 05:21 06/24/24 06:50 Labs: Abnormal Lab Results - Last 24 Hours (Table) 06/23/24 Range/Units 21:37 Potassium 6.5 H* (3.5-5.1) mmol/L Assessment and Plan Time with Patient: Less than 30
[2024-06-24] MEDS: MAGNESIUM SULFATE-D5W PMX 1 GM in DEXTROSE/WATER 1 100ML.BAG IVPB SCH (13:27)
--- NOTE | 2024-06-24 15:06 | P.PN ---
Subjective Progress Note Date: 06/24/24 CHIEF COMPLAINT: Bowel obstruction HISTORY OF PRESENT ILLNESS: The patient is a 43-year-old male admitted for bowel obstruction. He is passing flatus. Reports resolved abdominal pain. He complains mostly of back pain. ROS: No reports of nausea and vomiting. No bowel movements. No fevers or chill s. No new chest pain. No productive sputum PHYSICAL EXAM: VITAL SIGNS: Reviewed CONSTITUTIONAL: Well developed and in no acute distress. EYES: Conjuctivae without sclera icterus. Extraocular movements grossly intact. HEAD, EARS, NOSE, THROAT: Moist buccal mucosa. Head is atraumatic, normocep halic. Hears conversational speech. No nasal drainage. RESPIRATORY: Non-labored respirations and equal bilateral excursions. CARDIOVASCULAR: Palpable 2+ radial pulses. ABDOMEN: No peritonitis. MUSCULOSKELETAL: No gross deformity of the lower extremities noted. No clubbing. No cyanosis. SKIN: Good skin turgor. Well perfused. NEUROLOGIC: Cranial nerves II through XII grossly intact. No focal or lateralizing signs. PSYCH: Appropriate affect. Alert and oriented to person, place and time. CLINICAL LABS: Reviewed. WBC normal. Potassium improved from 3.2-4.0. STUDIES: Abdominal x-ray independent review demonstrate gaseous distention involving small and large bowel. This is my independent interpretation. Presence of moderate stool in the rectum. ASSESSMENT: 1. Small bowel obstruction 2. Fecal impaction. 3. Chronic back pain. PLAN: 1. I personally discontinued his nasogastric tube and may start diet. 2. Lactulose for fecal impaction. May require suppository as needed Objective - Vital Signs Vital signs: Vital Signs Temp 97.8 F 06/24/24 12:09 Pulse 74 06/24/24 12:09 Resp 16 06/24/24 12:09 BP 163/113 06/24/24 12:09 Pulse Ox 99 06/24/24 12:09 FiO2 Intake & Output 06/23/24 06/24/24 06/24/24 18:59 06:59 18:59 Intake Total 2700 Output Total 7456 415 1880 Balance -1050 -300 -400 Intake: Intake, IV Titration 800 Amount 0.9% NaCl with KCl 20 Meq 600 /l 1,000 ml @ 100 mls/hr IV .Q10H [facility] Rx#: [id number] ACETAMINOPHEN IV (For NPO 100 ) 1,000 mg In Empty Bag 1 bag @ 400 mls/hr IVPB Q6HR [facility] Rx#:[id number] Piperacillin-Tazobactam 3 100 .375 gm In Sodium Chloride 0.9% 100 ml @ 25 mls/hr IVPB Q8H [facility] Rx#: [id number] Oral 1900 Output: Gastric Drainage 550 Urine [id number] Other: Voiding Method Urinal Urinal # Voids 4 - Labs CBC & Chem 7: 06/24/24 05:21 06/24/24 06:50 Labs: Abnormal Lab Results - Last 24 Hours (Table) 06/23/24 06/24/24 06/24/24 Range/Units 21:37 05:21 06:50 RBC 3.23 L (4.40-5.60) X 10*6/uL Hgb 8.7 L (13.0-17.0) g/dL Hct 27.3 L (39.6-50.0) % MCH 26.9 L (27.0-32.0) pg MCHC 31.9 L (32.0-37.0) g/dL RDW 16.0 H (11.5-14.5) % MPV 8.6 L (9.5-12.2) FL Potassium 6.5 H* (3.5-5.1) mmol/L Calcium 7.7 L (8.7-10.3) mg/dL
[2024-06-24] MEDS: bisacodyL 10 MG SUPP RECTAL SCH (21:09)
[2024-06-25] MEDS ORDERED: MAGNESIUM SULFATE-D5W PMX 1 GM in DEXTROSE/WATER 1 100ML.BAG IVPB SCH (10:30)
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
[2024-06-25] MEDS ORDERED: ZINC OXIDE PASTE (Z-GUARD) 1 APPLIC TOPICAL PRN (13:29)
[2024-06-25] MEDS: HYDROmorphone 1 MG/ML 1 ML SYRINGE IVP PRN (14:57)
--- NOTE | 2024-06-25 18:19 | P.PN ---
Subjective Progress Note Date: 06/25/24 43-year-old male came in with complaints of abdominal pain back pain found to have small bowel obstruction patient has an NG tube with around 1000 cc of NG tube drainage. Patient was having nausea vomiting before he came in. 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 Patient is getting Dilaudid quite often and is on high doses of Dilaudid here which will be discontinued and patient will be started on Toradol and IV Tylenol for pain. Patient had a history of bowel resection in the past 06/24/2024 Was evaluated in follow-up on the medical floor. NG tube remains with total of 350 mL of gastric drainage overnight. He continues to report significant abdominal pain. Had a repeat abdominal x-ray today which reveals large amount of stool in the rectum with improved gaseous dilatation. He is on IV Zosyn. General surgery following closely. magnesium 1.5. 06/25/2024 Patient is evaluated today follow up on the medical floor. NG tube has been removed. He is passing gas. He is complaining of right lower back pain radiating throughout the entire back office medical assistant to palpation. Orthopedics was consulted. He will be going for lumbar MRI. He continues on IV zosyn. Review of Systems Constitutional: Denied any fatigue denied any fever. Cardio vascular: denied any chest pain, palpitations Gastrointestinal: denied any nausea, vomiting, diarrhea Pulmonary: Denied any shortness of breath cough Neurologic denied any new focal deficits All inpatient medications were reviewed and appropriate changes in these medications as dictated in the interval history and assessment and plan. PHYSICAL EXAMINATION: GENERAL: The patient is alert and oriented x3, thin built cachectic male and has a port in the chest for chemotherapy looks older than the stated age HEENT: Pupils are round and equally reacting to light. EOMI. No scleral icterus. No conjunctival pallor. Normocephalic, atraumatic. No pharyngeal erythema. No thyromegaly. CARDIOVASCULAR: S1 and S2 present. No murmurs, rubs, or gallops. PULMONARY: Chest is clear to auscultation, no wheezing or crackles. ABDOMEN: Soft, reports abdominal pain. Tender. Nondistended, normoactive bowel sounds. No palpable organomegaly. MUSCULOSKELETAL: No joint swelling or deformity. EXTREMITIES: No cyanosis, clubbing, or pedal edema. NEUROLOGICAL: Gross neurological examination did not reveal any focal deficits. SKIN: No rashes. Assessment and plan -Small bowel obstruction: Conservative measures. NG tube has been removed, on Low fiber diet and tolerating. Surgical consultation and Protonix, continue IV toradol, IV dilaudid -Lower back pain, orthopedics evaluation and lumbar MRI. -Hypomagnesemia from poor diet and oral intake. Repleted. -Jaw cancer cancer which is on remission, had a chemotherapy and radiation therapy in the past. -History of PE in the past presently not on anticoagulation patient will be started on DVT prophylaxis. Here with subcutaneous heparin -Moderate malnutrition: Will benefit from Ensure Plus or boost DVT prophylaxis: Subcutaneous Lovenox as mentioned above Repeat blood work in the AM. IV magnesium ordered. Continue IV fluids. NG tube in place to suction. The impression and plan of care has been dictated by Minda Tejada, Nurse Practitioner as directed. Dr. Carin MD I have performed a history and physical examination and medical decision making of this patient, discussed the same with the dictator, and agree with the dictators assessment and plan as written, documented as a scribe. Based on total visit time, I have performed more than 50% of this visit. Objective - Vital Signs Vital signs: Vital Signs Temp 98.0 F 06/25/24 12:37 Pulse 60 06/25/24 12:37 Resp 16 06/25/24 12:37 BP 118/83 06/25/24 12:37 Pulse Ox 100 06/25/24 12:37 FiO2 Intake & Output 06/24/24 06/25/24 06/25/24 18:59 06:59 18:59 Intake Total 2700 1556 Output Total 3100 700 2000 Balance -400 700 -014 Intake: Intake, IV Titration 800 Amount 0.9% NaCl with KCl 20 Meq 600 /l 1,000 ml @ 100 mls/hr IV .Q10H [facility] Rx#: [id number] ACETAMINOPHEN IV (For NPO 100 ) 1,000 mg In Empty Bag 1 bag @ 400 mls/hr IVPB Q6HR [facility] Rx#:[id number] Piperacillin-Tazobactam 3 100 .375 gm In Sodium Chloride 0.9% 100 ml @ 25 mls/hr IVPB Q8H [facility] Rx#: [id number] Oral 1900 1556 Output: Urine 3100 700 2000 Other: Voiding Method Urinal Urinal # Voids 4 7 # Bowel Movements 1 - Labs CBC & Chem 7: 06/24/24 05:21 06/24/24 06:50 Assessment and Plan Time with Patient: Less than 30
--- NOTE | 2024-06-25 19:33 | MR ---
EXAMINATION TYPE: MR lumbar spine wo/w con DATE OF EXAM: 06/25/2024 5:01 PM COMPARISON: 06/22/2024. CLINICAL INDICATION: Male, 43 years old with history of back pain, difficulty walking; PHH, Back pain , difficulty walking. TECHNIQUE: Multi planar, multi sequence imaging was performed utilizing: T1-weighted, T2-weighted, a nd turbo inversion recovery imaging of the lumbar spine. IV Contrast: 5 mL Gadobutrol (None, if empty) FINDINGS: Alignment: The lumbar vertebral bodies have preserved heights and alignment. Cord: The conus medullaris and the distal spinal cord appear unremarkable with regards to their signa l intensity and morphology. No abnormal post contrast enhancement. Bones/Discs: Mild degeneration changes throughout the spine with osteophyte formation and facet joint arthropathy. Intervertebral disc signal is maintained. No abnormal inversion recovery signal to sugg est bony edema. No abnormal post contrast enhancement. T12-L1: No evidence of significant spinal canal stenosis or neural foraminal stenosis. L1-L2: No evidence of significant spinal canal stenosis or neural foraminal stenosis. L2-L3: No evidence of significant spinal canal stenosis or neural foraminal stenosis. L3-L4: No evidence of significant spinal canal stenosis or neural foraminal stenosis. L4-L5: No evidence of significant spinal canal stenosis or neural foraminal stenosis. L5-S1: The disc has a rounded posterior morphology without significant spinal canal stenosis. Facet j oint arthropathy with mild bilateral neural foraminal stenosis. No significant spinal canal or neural foraminal stenosis in the remainder of the visualized levels. Other findings: None. IMPRESSION: No definitive evidence of disc herniation or significant spinal canal stenosis. Multilevel disc degeneration with associated osteoarthritic changes. [facility], , 06/25/2024 7:31 PM
--- NOTE | 2024-06-25 21:29 | P.PN ---
Subjective Progress Note Date: 06/25/24 CHIEF COMPLAINT: Bowel obstruction HISTORY OF PRESENT ILLNESS: The patient is a 43-year-old male admitted for bowel obstruction. He tolerated regular diet. No reports of nausea and vomiting. He is complaining of severe back pain. He is requesting change of his pain meds for his back pain. At the time of my assessment, he was denying any abdominal pain. Per discussion with nursing, patient had earlier requested Dilaudid for abdominal pain. ROS: No reports of nausea and vomiting. No fevers or chills. No new chest pain. No productive sputum PHYSICAL EXAM: VITAL SIGNS: Reviewed CONSTITUTIONAL: Well developed and in no acute distress. EYES: Conjuctivae without sclera icterus. Extraocular movements grossly intact. HEAD, EARS, NOSE, THROAT: Moist buccal mucosa. Head is atraumatic, n ormocephalic. Hears conversational speech. No nasal drainage. RESPIRATORY: Non-labored respirations and equal bilateral excursions. CARDIOVASCULAR: Palpable 2+ radial pulses. ABDOMEN: No peritonitis. Scaphoid. MUSCULOSKELETAL: No gross deformity of the lower extremities noted. No clubbing. No cyanosis. SKIN: Good skin turgor. Well perfused. NEUROLOGIC: Cranial nerves II through XII grossly intact. No focal or lateralizing signs. PSYCH: Appropriate affect. Alert and oriented to person, place and time. CLINICAL LABS: Reviewed. WBC normal. Electrolytes within normal limits. ASSESSMENT: 1. Small bowel obstruction 2. Fecal impaction. 3. Chronic back pain. PLAN: 1. Reports tolerating regular diet. No reports of nausea or vomiting at this time. No acute surgical invention needed. 2. Patient continues to complain of severe back pain with no recent orthopedic assessment. Consultation to orthopedic for severe back pain requested. 3. Patient cleared for discharge from a surgical standpoint once medically cleared. Objective - Vital Signs Vital signs: Vital Signs Temp 97.4 F L 06/25/24 20:00 Pulse 59 L 06/25/24 20:00 Resp 14 06/25/24 20:00 BP 140/88 06/25/24 20:30 Pulse Ox 100 06/25/24 20:00 FiO2 Intake & Output 06/25/24 06/25/24 06/26/24 06:59 18:59 06:59 Intake Total 2035 Output Total 700 1999 Balance -700 36 Intake: Oral 2035 Output: Urine 700 2000 Other: Voiding Method Urinal Urinal # Voids 7 # Bowel Movements 1 - Labs CBC & Chem 7: 06/24/24 05:21 06/24/24 06:50
[2024-06-26 09:42] LABS: BUN/Creat Ratio 14.33 Ratio (12.00-20.00); Blood Urea Nitrogen 8.6 mg/dL (9.0-27.0); Glucose 90 mg/dL (70-110)
[2024-06-26 09:43] LABS: Calcium 7.2 mg/dL (8.7-10.3); Carbon Dioxide 23.5 mmol/L (21.6-31.8); Chloride 101 mmol/L (96-109); Potassium 4.7 mmol/L (3.5-5.5); Sodium 131 mmol/L (135-145)
[2024-06-26 09:44] LABS: Basophils # (A) 0.02 X 10*3/uL (0.00-0.10); Basophils % (A) 0.3 %; Eosinophils # (A) 0.06 X 10*3/uL (0.04-0.35); Eosinophils % (A) 0.9 %; HCT 26.2 % (39.6-50.0); HGB 8.4 g/dL (13.0-17.0); Lymphocytes # (A) 0.81 X 10*3/uL (0.90-5.00); Lymphocytes % (A) 12.3 %; MCH 26.9 pg (27.0-32.0); MCHC 32.1 g/dL (32.0-37.0); Mean Platelet Volume 9.3 FL (9.5-12.2); Monocytes # (A) 0.25 X 10*3/uL (0.20-1.00); Monocytes % (A) 3.8 %; NRBC Per 100 WBC 0 X 10*3/uL (0.00-0.01); Neutrophils # (A) 5.45 X 10*3/uL (1.80-7.70); Neutrophils % (A) 82.4 %; Platelet Count 381 X 10*3/uL (140-440); RBC 3.12 X 10*6/uL (4.40-5.60); WBC 6.61 X 10*3/uL (4.50-10.00)
[2024-06-26] MEDS: SODIUM CHLORIDE 0.9% 1,000 ML IV SCH (10:11)
--- NOTE | 2024-06-26 11:06 | P.PN ---
Subjective Progress Note Date: 06/26/24 Principal diagnosis: Low back pain, multilevel lumbar spondylosis Patient was evaluated at bedside today, he is resting in his hospital bed. Patient did undergo an MRI of the lumbar spine, there was no acute fractures or dislocations, there were no space-occupying lesions. There is evidence of more degenerative disc disease at L5-S1 with mild herniation. Patient's pain remains about the same, he continues to take IV Dilaudid Objective - Vital Signs Vital signs: Vital Signs Temp 98.1 F 06/26/24 07:25 Pulse 67 06/26/24 08:00 Resp 16 06/26/24 08:00 BP 139/96 06/26/24 07:25 Pulse Ox 98 06/26/24 07:25 FiO2 Intake & Output 06/25/24 06/26/24 06/26/24 18:59 06:59 18:59 Intake Total 2035 1840 240 Output Total 1999 1300 Balance 36 540 240 Intake: Intake, IV Titration 1300 Amount 0.9% NaCl with KCl 20 Meq 1200 /l 1,000 ml @ 100 mls/hr IV .Q10H [facility] Rx#: [id number] Piperacillin-Tazobactam 3 100 .375 gm In Sodium Chloride 0.9% 100 ml @ 25 mls/hr IVPB Q8H [facility] Rx#: [id number] Oral 2035 540 240 Output: Urine 1999 1300 Other: Voiding Method Urinal Urinal Urinal # Voids 7 5 # Bowel Movements 1 - Exam Gen: AOx3, NAD VSS stable at this time Integument: No open lesions or sores visualized throughout the lower lumbar spine, no significant areas of swelling Palpation: Patient has tenderness with palpation to both paraspinal and midline region to the lumbar spine ROM: Full range of motion of all major muscle groups of bilateral upper extremities, no focal deficits Range of motion is intact to the bilateral lower extremities, he does have difficulty with hip flexion along with knee flexion and extension, plantarflexion, dorsiflexion, EHL, FHL are intact Sensory Exam: Senory exam to light touch is intact C5-T1 Senosry exam to light touch is intact L2-S1 Motor: 3+/5 strength appreciated in the bilateral lower extremities with hip flexion, knee flexion, knee extension 4/5 strength appreciated bilateral lower extremities with plantarflexion, dorsiflexion, EHL, FHL Reflexes: 2/4 in all UE and LE Negative clonus bilaterally Special Test: Positive straight leg raise bilateral lower extremities Logroll maneuver reproduces no groin pain bilaterally - Labs CBC & Chem 7: 06/26/24 05:50 06/26/24 05:50 Labs: Abnormal Lab Results - Last 24 Hours (Table) 06/26/24 06/26/24 Range/Units 05:50 05:50 RBC 3.12 L (4.40-5.60) X 10*6/uL Hgb 8.4 L (13.0-17.0) g/dL Hct 26.2 L (39.6-50.0) % MCH 26.9 L (27.0-32.0) pg RDW 15.0 H (11.5-14.5) % MPV 9.3 L (9.5-12.2) FL Lymphocytes # 0.81 L (0.90-5.00) X 10*3/uL Sodium 131 L (135-145) mmol/L BUN 8.6 L (9.0-27.0) mg/dL Calcium 7.2 L (8.7-10.3) mg/dL Assessment and Plan Assessment: Low back pain Multilevel lumbar spondylosis HNP L5-S1 Endplate changes/ subacute T12, L2 VCF Bilateral lower extremity weakness Generalized medical debility Multiple medical comorbidities Plan: Imaging: MRI of the lumbar spine with and without contrast was reviewed, this to include images and reports. No acute fractures or dislocations were noted. Spondylitic changes noted throughout the lumbar spine, worst noted at L5-S1 with of mild disc herniation. Plan: Will discuss MRI findings and current physical exam findings with my attending. No emergent orthopedic spine surgical intervention recommended Patient remains stable at this time from the orthopedic standpoint for discharge and follow-up in the outpatient setting Patient may benefit from pain management follow-up to discuss long-term pain c ontrol with his multiple medical conditions GI DVT prophylaxis per primary medical service Weight-bear as tolerated with walker Other medical specialty recommendations appreciated Our follow-up information will be placed in chart, please contact our service with any further questions
[2024-06-26 11:08] VITALS: BMI 19.3
--- NOTE | 2024-06-26 15:44 | P.PN ---
Subjective Progress Note Date: 06/26/24 CHIEF COMPLAINT: Bowel obstruction HISTORY OF PRESENT ILLNESS: The patient is a 43-year-old male admitted for bowel obstruction. Patient's discharge was held yesterday due to severe chronic lower back pain. Patient has been eval by orthopedic team. Today, he is tolerating diet. In fact had a large bowel mL yesterday and passing flatus. He has pre- existing chronic pain. ROS: No reports of nausea and vomiting. No fevers or chills. No new chest pain. No productive sputum PHYSICAL EXAM: VITAL SIGNS: Reviewed CONSTITUTIONAL: Well developed and in no acute distress. EYES: Conjuctivae without sclera icterus. Extraocular movements grossly intact. HEAD, EARS, NOSE, THROAT: Moist buccal mucosa. Head is atraumatic, normocephalic. Hears conversational speech. No nasal drainage. RESPIRATORY: Non-labored respirations and equal bilateral excursions. CARDIOVASCULAR: Palpable 2+ radial pulses. ABDOMEN: No peritonitis. MUSCULOSKELETAL: No gross deformity of the lower extremities noted. No clubbing. No cyanosis. SKIN: Good skin turgor. Well perfused. NEUROLOGIC: Cranial nerves II through XII grossly intact. No focal or lateralizing signs. PSYCH: Appropriate affect. Alert and oriented to person, place and time. CLINICAL LABS: Reviewed. WBC normal. IMAGING: MRI of the lumbar spine independent review demonstrate no acute fractures. This is my independent or potation. ASSESSMENT: 1. Small bowel obstruction due to adhesions. 2. Chronic back pain. PLAN: 1. Clinically the patient is doing remarkably well having bowel movements and tolerating diet. He is stable from a general surgical standpoint for discharge. 2. Orthopedic consultation appreciated were outpatient pain management is advised. 3. Diet as tolerated upon discharge. Objective - Vital Signs Vital signs: Vital Signs Temp 98.1 F 06/26/24 14:00 Pulse 77 06/26/24 14:00 Resp 16 06/26/24 14:00 BP 159/104 06/26/24 14:00 Pulse Ox 98 06/26/24 14:00 FiO2 Intake & Output 06/25/24 06/26/24 06/26/24 18:59 06:59 18:59 Intake Total 2035 1840 1440 Output Total 1999 1300 Balance 36 540 1440 Weight 54.431 kg Intake: Intake, IV Titration 1300 Amount 0.9% NaCl with KCl 20 Meq 1200 /l 1,000 ml @ 100 mls/hr IV .Q10H [facility] Rx#: [id number] Piperacillin-Tazobactam 3 100 .375 gm In Sodium Chloride 0.9% 100 ml @ 25 mls/hr IVPB Q8H [facility] Rx#: [id number] Oral 2036 540 1440 Output: Urine 2000 1300 Other: Voiding Method Urinal Urinal Urinal # Voids 7 5 # Bowel Movements 1 - Labs CBC & Chem 7: 06/26/24 05:50 06/26/24 05:50 Labs: Abnormal Lab Results - Last 24 Hours (Table) 06/26/24 06/26/24 Range/Units 05:50 05:50 RBC 3.12 L (4.40-5.60) X 10*6/uL Hgb 8.4 L (13.0-17.0) g/dL Hct 26.2 L (39.6-50.0) % MCH 26.9 L (27.0-32.0) pg RDW 15.0 H (11.5-14.5) % MPV 9.3 L (9.5-12.2) FL Lymphocytes # 0.81 L (0.90-5.00) X 10*3/uL Sodium 131 L (135-145) mmol/L BUN 8.6 L (9.0-27.0) mg/dL Calcium 7.2 L (8.7-10.3) mg/dL
--- NOTE | 2024-06-26 18:17 | P.PN ---
Subjective Progress Note Date: 06/26/24 43-year-old male came in with complaints of abdominal pain back pain found to have small bowel obstruction patient has an NG tube with around 1000 cc of NG tube drainage. Patient was having nausea vomiting before he came in. 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 Patient is getting Dilaudid quite often and is on high doses of Dilaudid here which will be discontinued and patient will be started on Toradol and IV Tylenol for pain. Patient had a history of bowel resection in the past 06/24/2024 Was evaluated in follow-up on the medical floor. NG tube remains with total of 350 mL of gastric drainage overnight. He continues to report significant abdominal pain. Had a repeat abdominal x-ray today which reveals large amount of stool in the rectum with improved gaseous dilatation. He is on IV Zosyn. General surgery following closely. magnesium 1.5. 06/25/2024 Patient is evaluated today follow up on the medical floor. NG tube has been removed. He is passing gas. He is complaining of right lower back pain radiating throughout the entire bar back to palpation. Orthopedics was consulted. He will be going for lumbar MRI. He continues on IV zosyn. 06/26/2024 Patient is evaluated today in follow up on medical floor. NG tube remains out he is tolerating diet and had a normal BM. He had lumbar MRI with no acute findings to attribute to the severe right lower back pain he is having. He has had multiple bowel surgeries and also has had multiple back surgeries. Sodium 131 today. Discussed with patient about seeing pain management before discharge he is agreeable to this plan. Review of Systems Constitutional: Denied any fatigue denied any fever. Cardio vascular: denied any chest pain, palpitations Gastrointestinal: denied any nausea, vomiting, diarrhea Pulmonary: Denied any shortness of breath cough Neurologic denied any new focal deficits All inpatient medications were reviewed and appropriate changes in these m edications as dictated in the interval history and assessment and plan. PHYSICAL EXAMINATION: GENERAL: The patient is alert and oriented x3, thin built cachectic male and has a port in the chest for chemotherapy looks older than the stated age HEENT: Pupils are round and equally reacting to light. EOMI. No scleral icterus. No conjunctival pallor. Normocephalic, atraumatic. No pharyngeal erythema. No thyromegaly. CARDIOVASCULAR: S1 and S2 present. No murmurs, rubs, or gallops. PULMONARY: Chest is clear to auscultation, no wheezing or crackles. ABDOMEN: Soft, reports abdominal pain. Tender. Nondistended, normoactive bowel sounds. No palpable organomegaly. MUSCULOSKELETAL: No joint swelling or deformity. EXTREMITIES: No cyanosis, clubbing, or pedal edema. NEUROLOGICAL: Gross neurological examination did not reveal any focal deficits. SKIN: No rashes. Assessment and plan -Small bowel obstruction: Conservative measures. NG tube has been removed, on Low fiber diet and tolerating. Surgical consultation and Protonix, continue IV toradol, IV dilaudid -Lower back pain, orthopedics evaluation and lumbar MRI. No surgical options for the back pain. Consult in place to pain management services. -Hypomagnesemia from poor diet and oral intake. Repleted. 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 -Jaw cancer cancer which is on remission, had a chemotherapy and radiation therapy in the past. -History of PE in the past presently not on anticoagulation -Moderate malnutrition: Will benefit from Ensure Plus or boost DVT prophylaxis: Subcutaneous Lovenox as mentioned above Repeat blood work in the AM. IV magnesium ordered. Continue IV fluids. NG tube in place to suction. The impression and plan of care has been dictated by Minda Tejada, Nurse Practitioner as directed. Dr. Carin MD I have performed a history and physical examination and medical decision making of this patient, discussed the same with the dictator, and agree with the dictators assessment and plan as written, documented as a scribe. Based on total visit time, I have performed more than 50% of this visit. Objective - Vital Signs Vital signs: Vital Signs Temp 98.1 F 06/26/24 14:00 Pulse 77 06/26/24 14:00 Resp 16 06/26/24 14:00 BP 159/104 06/26/24 14:00 Pulse Ox 98 06/26/24 14:00 FiO2 Intake & Output 06/25/24 06/26/24 06/26/24 18:59 06:59 18:59 Intake Total 6 1840 3060 Output Total 1999 1300 1400 Balance 36 540 1660 Weight 54.431 kg Intake: Intake, IV Titration 1300 Amount 0.9% NaCl with KCl 20 Meq 1200 /l 1,000 ml @ 100 mls/hr IV .Q10H [facility] Rx#: [id number] Piperacillin-Tazobactam 3 100 .375 gm In Sodium Chloride 0.9% 100 ml @ 25 mls/hr IVPB Q8H [facility] Rx#: [id number] Oral 2036 540 3060 Output: Urine 2000 1300 1400 Other: Voiding Method Urinal Urinal Urinal # Voids 7 5 4 # Bowel Movements 1 1 - Labs CBC & Chem 7: 06/26/24 05:50 06/26/24 05:50 Labs: Abnormal Lab Results - Last 24 Hours (Table) 06/26/24 06/26/24 Range/Units 05:50 05:50 RBC 3.12 L (4.40-5.60) X 10*6/uL Hgb 8.4 L (13.0-17.0) g/dL Hct 26.2 L (39.6-50.0) % MCH 26.9 L (27.0-32.0) pg RDW 15.0 H (11.5-14.5) % MPV 9.3 L (9.5-12.2) FL Lymphocytes # 0.81 L (0.90-5.00) X 10*3/uL Sodium 131 L (135-145) mmol/L BUN 8.6 L (9.0-27.0) mg/dL Calcium 7.2 L (8.7-10.3) mg/dL Assessment and Plan Time with Patient: Less than 30
[2024-06-27 12:25] LABS: African American GFR (CKD) >90 (>60 ml/min/1.73 sqM); Anion Gap 7 mmol/L; Blood Urea Nitrogen 11 mg/dL (9-20); Calcium 7.5 mg/dL (8.4-10.2); Carbon Dioxide 22 mmol/L (22-30); Chloride 103 mmol/L (98-107); Glucose 96 mg/dL (74-99); Non-African American GFR(CKD) >90 (>60 ml/min/1.73 sqM); Potassium 4.2 mmol/L (3.5-5.1); Sodium 132 mmol/L (137-145)
--- NOTE | 2024-06-27 14:47 | P.PN ---
Subjective Progress Note Date: 06/27/24 43-year-old male came in with complaints of abdominal pain back pain found to have small bowel obstruction patient has an NG tube with around 1000 cc of NG tube drainage. Patient was having nausea vomiting before he came in. 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 Patient is getting Dilaudid quite often and is on high doses of Dilaudid here which will be discontinued and patient will be started on Toradol and IV Tylenol for pain. Patient had a history of bowel resection in the past 06/24/2024 Was evaluated in follow-up on the medical floor. NG tube remains with total of 350 mL of gastric drainage overnight. He continues to report significant abdominal pain. Had a repeat abdominal x-ray today which reveals large amount of stool in the rectum with improved gaseous dilatation. He is on IV Zosyn. General surgery following closely. magnesium 1.5. 06/25/2024 Patient is evaluated today follow up on the medical floor. NG tube has been removed. He is passing gas. He is complaining of right lower back pain radiating throughout the entire back tender fourdrinier to palpation. Orthopedics was consulted. He will be going for lumbar MRI. He continues on IV zosyn. 06/26/2024 Patient is evaluated today in follow up on medical floor. NG tube remains out he is tolerating diet and had a normal BM. He had lumbar MRI with no acute findings to attribute to the severe right lower back pain he is having. He has had multiple bowel surgeries and also has had multiple back surgeries. Sodium 131 today. Discussed with patient about seeing pain management before discharge he is agreeable to this plan. 06/27/2024 Patient is evaluated in follow-up in the medical floor. NG tube remains out. He is tolerating diet had a normal bowel movement. He continues to report right lower back pain. He will be evaluated by pain management services tomorrow. Sodium up to 132 today. Hemodynamically he is stable. Review of Systems Constitutional: Denied any fatigue denied any fever. Cardio vascular: denied any chest pain, palpitations Gastrointestinal: denied any nausea, vomiting, diarrhea Pulmonary: Denied any shortness of breath cough Neurologic denied any new focal deficits All inpatient medications were reviewed and appropriate changes in these medications as dictated in the interval history and assessment and plan. PHYSICAL EXAMINATION: GENERAL: The patient is alert and oriented x3, thin built cachectic male and has a port in the chest for chemotherapy looks older than the stated age HEENT: Pupils are round and equally reacting to light. EOMI. No scleral icterus. No conjunctival pallor. Normocephalic, atraumatic. No pharyngeal erythema. No thyromegaly. CARDIOVASCULAR: S1 and S2 present. No murmurs, rubs, or gallops. PULMONARY: Chest is clear to auscultation, no wheezing or crackles. ABDOMEN: Soft, reports abdominal pain. Tender. Nondistended, normoactive bowel sounds. No palpable organomegaly. MUSCULOSKELETAL: No joint swelling or deformity. EXTREMITIES: No cyanosis, clubbing, or pedal edema. NEUROLOGICAL: Gross neurological examination did not reveal any focal deficits. SKIN: No rashes. Assessment and plan -Small bowel obstruction: Conservative measures. NG tube has been removed, on Low fiber diet and tolerating. Surgical consultation and Protonix, continue IV toradol, IV dilaudid -Lower back pain, orthopedics evaluation and lumbar MRI. No surgical options for the back pain. Consult in place to pain management services. -Hypomagnesemia from poor diet and oral intake. Repleted. 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 -Jaw cancer cancer which is on remission, had a chemotherapy and radiation therapy in the past. -History of PE in the past presently not on anticoagulation -Moderate malnutrition: Will benefit from Ensure Plus or boost DVT prophylaxis: Subcutaneous Lovenox as mentioned above Repeat blood work in the AM. Continue to monitor sodium level. Pain management services to evaluate the patient tomorrow and he can be likely discharged home after. The impression and plan of care has been dictated by Minda Tejada Nurse Practitioner as directed. Dr. Carin MD I have performed a history and physical examination and medical decision making of this patient, discussed the same with the dictator, and agree with the dictators assessment and plan as written, documented as a scribe. Based on total visit time, I have performed more than 50% of this visit. Objective - Vital Signs Vital signs: Vital Signs Temp 98.1 F 06/27/24 13:32 Pulse 83 06/27/24 13:32 Resp 16 06/27/24 13:32 BP 145/92 06/27/24 13:32 Pulse Ox 100 06/27/24 13:32 FiO2 Intake & Output 06/26/24 06/27/24 06/27/24 18:59 06:59 18:59 Intake Total 3300 1780 1920 Output Total 1400 600 Balance 1900 1180 1920 Weight 54.431 kg Intake: Intake, IV Titration 1000 Amount Piperacillin-Tazobactam 3 100 .375 gm In Sodium Chloride 0.9% 100 ml @ 25 mls/hr IVPB Q8H [facility] Rx#: [id number] Sodium Chloride 0.9% 1, 900 000 ml @ 75 mls/hr IV . [id number] [facility] Rx#:[id number] Oral 3300 780 1920 Output: Urine 1400 600 Other: Voiding Method Urinal Urinal # Voids 4 # Bowel Movements 1 - Labs CBC & Chem 7: 06/26/24 05:50 06/27/24 11:27 Labs: Abnormal Lab Results - Last 24 Hours (Table) 06/27/24 Range/Units 11:27 Sodium 132 L (137-145) mmol/L Calcium 7.5 L (8.4-10.2) mg/dL Assessment and Plan Time with Patient: Less than 30
--- NOTE | 2024-06-27 15:16 | P.PN ---
Subjective Progress Note Date: 06/27/24 CHIEF COMPLAINT: Bowel obstruction HISTORY OF PRESENT ILLNESS: The patient is a 43-year-old male admitted for bowel obstruction. He is tolerating regular diet. He has been evaluated by orthopedic team. Due to his chronic pain issues, his discharge has been held for assessment by pain specialist. He is having bowel movements and passing gas. ROS: No reports of nausea and vomiting. No fevers or chills. No new chest pain. No productive sputum PHYSICAL EXAM: VITAL SIGNS: Reviewed CONSTITUTIONAL: Well developed and in no acute distress. EYES: Conjuctivae without sclera icterus. Extraocular movements grossly intact. HEAD, EARS, NOSE, THROAT: Moist buccal mucosa. Head is atraumatic, nor mocephalic. Hears conversational speech. No nasal drainage. RESPIRATORY: Non-labored respirations and equal bilateral excursions. CARDIOVASCULAR: Palpable 2+ radial pulses. ABDOMEN: No peritonitis. MUSCULOSKELETAL: No gross deformity of the lower extremities noted. No clubbing. No cyanosis. SKIN: Good skin turgor. Well perfused. NEUROLOGIC: Cranial nerves II through XII grossly intact. No focal or lateralizing signs. PSYCH: Appropriate affect. Alert and oriented to person, place and time. CLINICAL LABS: Reviewed. WBC normal. ASSESSMENT: 1. Small bowel obstruction due to adhesions. 2. Chronic back pain. PLAN: 1. Diet as tolerated. 2. Agree with pain specialist assessment due to chronic back pain. Objective - Vital Signs Vital signs: Vital Signs Temp 98.1 F 06/27/24 13:32 Pulse 83 06/27/24 13:32 Resp 16 06/27/24 13:32 BP 145/92 06/27/24 13:32 Pulse Ox 100 06/27/24 13:32 FiO2 Intake & Output 06/26/24 06/27/24 06/27/24 18:59 06:59 18:59 Intake Total 3300 1780 1920 Output Total 1400 600 Balance 1900 1180 1920 Weight 54.431 kg Intake: Intake, IV Titration 1000 Amount Piperacillin-Tazobactam 3 100 .375 gm In Sodium Chloride 0.9% 100 ml @ 25 mls/hr IVPB Q8H [facility] Rx#: [id number] Sodium Chloride 0.9% 1, 900 000 ml @ 75 mls/hr IV . [id number] [facility] Rx#:[id number] Oral 3300 780 1920 Output: Urine 1400 600 Other: Voiding Method Urinal Urinal # Voids 4 # Bowel Movements 1 - Labs CBC & Chem 7: 06/26/24 05:50 06/27/24 11:27 Labs: Abnormal Lab Results - Last 24 Hours (Table) 06/27/24 Range/Units 11:27 Sodium 132 L (137-145) mmol/L Calcium 7.5 L (8.4-10.2) mg/dL
[2024-06-28 08:11] LABS: African American GFR (CKD) >90 (>60 ml/min/1.73 sqM); Anion Gap 4 mmol/L; Blood Urea Nitrogen 14 mg/dL (9-20); Calcium 7.4 mg/dL (8.4-10.2); Carbon Dioxide 22 mmol/L (22-30); Chloride 106 mmol/L (98-107); Glucose 89 mg/dL (74-99); Non-African American GFR(CKD) >90 (>60 ml/min/1.73 sqM); Potassium 4.5 mmol/L (3.5-5.1); Sodium 132 mmol/L (137-145)
--- NOTE | 2024-06-28 12:37 | P.PN ---
Subjective Progress Note Date: 06/28/24 CHIEF COMPLAINT: SBO HISTORY OF PRESENT ILLNESS: Patient mid to the hospital with SBO due to adhesions. Patient is having bowel movements. Tolerating diet. Denies abdominal pain. Main complaint is his chronic back pain. Patient mid to the hospital with SBO due to adhesions. Patient is having bowel movements. Tolerating diet. Denies abdominal pain. Main complaint is his chronic back pain. He is scheduled to be evaluated by pain service today and then a possible discharge. PHYSICAL EXAM: VITAL SIGNS: Reviewed GENERAL: Well-developed in no acute distress. HEENT: No sclera icterus. Extraocular movements grossly intact. Moist buccal mucosa. Head is atraumatic, normocephalic. Hears conversational speech. No nasal drainage. NECK: Supple without lymphadenopathy. CHEST: Non-labored respirations and equal bilateral excursions. CARDIOVASCULAR: Palpable 2+ radial pulses. ABDOMEN: Soft. Nondistended. Nontender. MUSCULOSKELETAL: No clubbing or cyanosis. NEUROLOGIC: No focal or lateralizing signs. Cranial nerves II through XII grossly intact. PSYCH: Appropriate affect. Alert and oriented to person, place and time. SKIN: Well perfused. Good skin turgor. ASSESSMENT: 1. Small bowel obstruction due to adhesions. 2. Chronic back pain. PLAN: -Patient can be discharged surgical standpoint -Agree with pain service eval for chronic back pain Physician In Room Dining Server note has been reviewed by physician. Signing provider agrees with the documented findings, assessment, and plan of care. See additional documentation below CHIEF COMPLAINT: Bowel obstruction HISTORY OF PRESENT ILLNESS: The patient is a 43-year-old male with chronic pain including intermittent bowel obstruction. He has been tolerating diet. He is having bowel movements. No fevers or chills. Tolerating diet. He is awaiting management with pain team. ROS: No reports of nausea and vomiting. No fevers or chills. No new chest pain. No productive sputum PHYSICAL EXAM: VITAL SIGNS: Reviewed CONSTITUTIONAL: Well developed and in no acute distress. EYES: Conjuctivae without sclera icterus. Extraocular movements grossly intact. HEAD, EARS, NOSE, THROAT: Moist buccal mucosa. Head is atraumatic, normocephalic. Hears conversational speech. No nasal drainage. RESPIRATORY: Non-labored respirations and equal bilateral excursions. CARDIOVASCULAR: Palpable 2+ radial pulses. ABDOMEN: No peritonitis. Nontender. MUSCULOSKELETAL: No gross deformity of the lower extremities noted. No clu bbing. No cyanosis. SKIN: Good skin turgor. Well perfused. NEUROLOGIC: Cranial nerves II through XII grossly intact. No focal or lateralizing signs. PSYCH: Appropriate affect. Alert and oriented to person, place and time. CLINICAL LABS: Reviewed. Sodium low 132, hyponatremia ASSESSMENT: 1. Bowel obstruction 2. Chronic pain syndrome 3. Hyponatremia PLAN: 1. Awaiting further management for pain with pain specialist 2. Diet as tolerated 3. Correction of hyponatremia with fluid restriction Objective - Vital Signs Vital signs: Vital Signs Temp 97.8 F 06/28/24 07:21 Pulse 74 06/28/24 07:21 Resp 16 06/28/24 07:21 BP 129/80 06/28/24 07:21 Pulse Ox 100 06/28/24 07:21 FiO2 Intake & Output 06/27/24 06/28/24 06/28/24 18:59 06:59 18:59 Intake Total 4140 590 Output Total 1600 900 Balance 2540 -310 Intake: Oral 4140 590 Output: Urine 1600 900 Other: # Bowel Movements 1 - Labs CBC & Chem 7: 06/26/24 05:50 06/28/24 07:38 Labs: Abnormal Lab Results - Last 24 Hours (Table) 06/28/24 Range/Units 07:38 Sodium 132 L (137-145) mmol/L Calcium 7.4 L (8.4-10.2) mg/dL
--- NOTE | 2024-06-28 15:50 | P.PN ---
Subjective Progress Note Date: 06/28/24 43-year-old male came in with complaints of abdominal pain back pain found to have small bowel obstruction patient has an NG tube with around 1000 cc of NG tube drainage. Patient was having nausea vomiting before he came in. 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 Patient is getting Dilaudid quite often and is on high doses of Dilaudid here which will be discontinued and patient will be started on Toradol and IV Tylenol for pain. Patient had a history of bowel resection in the past 06/24/2024 Was evaluated in follow-up on the medical floor. NG tube remains with total of 350 mL of gastric drainage overnight. He continues to report significant abdominal pain. Had a repeat abdominal x-ray today which reveals large amount of stool in the rectum with improved gaseous dilatation. He is on IV Zosyn. General surgery following closely. magnesium 1.5. 06/25/2024 Patient is evaluated today follow up on the medical floor. NG tube has been removed. He is passing gas. He is complaining of right lower back pain radiating throughout the entire backup administrative coordinator to palpation. Orthopedics was consulted. He will be going for lumbar MRI. He continues on IV zosyn. 06/26/2024 Patient is evaluated today in follow up on medical floor. NG tube remains out he is tolerating diet and had a normal BM. He had lumbar MRI with no acute findings to attribute to the severe right lower back pain he is having. He has had multiple bowel surgeries and also has had multiple back surgeries. Sodium 131 today. Discussed with patient about seeing pain management before discharge he is agreeable to this plan. 06/27/2024 Patient is evaluated in follow-up in the medical floor. NG tube remains out. He is tolerating diet had a normal bowel movement. He continues to report right lower back pain. He will be evaluated by pain management services tomorrow. Sodium up to 132 today. Hemodynamically he is stable. 06/28/2024 Patient evaluated today in follow up on the medical floor. NG tube remains out. Tolerating diet, bowels are moving. He was evaluated by pain management and they will be performing an epidural injection L5-S1 tomorrow. He can be discharged home afterwards. Review of Systems Constitutional: Denied any fatigue denied any fever. Cardio vascular: denied any chest pain, palpitations Gastrointestinal: denied any nausea, vomiting, diarrhea Pulmonary: Denied any shortness of breath cough Neurologic denied any new focal deficits All inpatient medications were reviewed and appropriate changes in these medications as dictated in the interval history and assessment and plan. PHYSICAL EXAMINATION: GENERAL: The patient is alert and oriented x3, thin built cachectic male and has a port in the chest for chemotherapy looks older than the stated age HEENT: Pupils are round and equally reacting to light. EOMI. No scleral icterus. No conjunctival pallor. Normocephalic, atraumatic. No pharyngeal erythema. No thyromegaly. CARDIOVASCULAR: S1 and S2 present. No murmurs, rubs, or gallops. PULMONARY: Chest is clear to auscultation, no wheezing or crackles. ABDOMEN: Soft, reports abdominal pain. Tender. Nondistended, normoactive bowel sounds. No palpable organomegaly. MUSCULOSKELETAL: No joint swelling or deformity. EXTREMITIES: No cyanosis, clubbing, or pedal edema. NEUROLOGICAL: Gross neurological examination did not reveal any focal deficits. SKIN: No rashes. Assessment and plan -Small bowel obstruction: Conservative measures. NG tube has been removed, on Low fiber diet and tolerating. Surgical consultation and Protonix, continue IV toradol, IV dilaudid -Lower back pain, orthopedics evaluation and lumbar MRI. No surgical options for the back pain. Consult in place to pain management services. -Hypomagnesemia from poor diet and oral intake. Repleted. 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 -Jaw cancer cancer which is on remission, had a chemotherapy and radiation therapy in the past. -History of PE in the past presently not on anticoagulation -Moderate malnutrition: Will benefit from Ensure Plus or boost DVT prophylaxis: Subcutaneous Lovenox as mentioned above Repeat blood work in the AM. Continue to monitor sodium level. Pain management services to evaluate the patient tomorrow and he can be likely discharged home after. The impression and plan of care has been dictated by Minda Tejada Nurse Practitioner as directed. Dr. Carin MD I have performed a history and physical examination and medical decision making of this patient, discussed the same with the dictator, and agree with the dictators assessment and plan as written, documented as a scribe. Based on total visit time, I have performed more than 50% of this visit. Objective - Vital Signs Vital signs: Vital Signs Temp 97.5 F L 06/28/24 12:05 Pulse 76 06/28/24 12:05 Resp 16 06/28/24 12:05 BP 150/99 06/28/24 12:05 Pulse Ox 100 06/28/24 12:05 FiO2 Intake & Output 06/27/24 06/28/24 06/28/24 18:59 06:59 18:59 Intake Total 4140 590 Output Total 1600 900 Balance 2540 -310 Intake: Oral 4140 590 Output: Urine 1600 900 Other: # Bowel Movements 1 - Labs CBC & Chem 7: 06/26/24 05:50 06/28/24 07:38 Labs: Abnormal Lab Results - Last 24 Hours (Table) 06/28/24 Range/Units 07:38 Sodium 132 L (137-145) mmol/L Calcium 7.4 L (8.4-10.2) mg/dL Assessment and Plan Time with Patient: Less than 30
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
[2024-06-29 08:32] VITALS: TEMP 98.3
[2024-06-29 10:43] LABS: African American GFR (CKD) >90 (>60 ml/min/1.73 sqM); Anion Gap 5 mmol/L; Blood Urea Nitrogen 12 mg/dL (9-20); Calcium 7.6 mg/dL (8.4-10.2); Carbon Dioxide 21 mmol/L (22-30); Chloride 105 mmol/L (98-107); Glucose 165 mg/dL (74-99); Non-African American GFR(CKD) >90 (>60 ml/min/1.73 sqM); Potassium 4.3 mmol/L (3.5-5.1); Sodium 131 mmol/L (137-145)
[2024-06-29 13:28] VITALS: RESP 16
[2024-06-29] MEDS ORDERED: IOPAMIDOL M200 10 ML VIAL ONE (15:31)
[2024-06-29] MEDS ORDERED: methylPREDNISolone ACETATE 40 MG/ML 1 ML VIAL ONE (15:31)
--- NOTE | 2024-06-29 15:38 | P.PCN ---
Date of Procedure: 06/29/24 Procedure(s) Performed: PREOPERATIVE DIAGNOSIS: 1- Lumbar Degenerative Disc Diseases 2-Lumbar spondylosis with Facet arthropathy without myelopathy. 3-lumbar foraminal stenosis 4-lumbar radiculopathy POSTOPERATIVE DIAGNOSIS: 1-lumbar degenerative disc disease. 2-lumbar spondylosis with facet arthropathy without myelopathy. 3-lumbar foraminal stenosis. 4-lumbar radiculopathy PROCEDURE 1. Lumbar epidural steroid injection under fluoroscopic guidance at the L5-S1 level. (Fluoroscopy imaging was available in radiology department) 2. Lumbar epidurogram. ANESTHESIA: Lidocaine 1% 3 and then only. EBL: Minimal PROCEDURE INDICATION: The patient with low back pain and radiculitis symptoms unresponsive to conservative treatment. Fluoroscopy was used to optimize visualization of the needle placement and to maximize safety. PROCEDURE DESCRIPTION / TECHNIQUE: The patient was seen and identified in the preoperative area. Risks, benefits, complications including but not limited to infections ,bleeding ,allergic reaction to the medications ,nerve damage and not complete pain releife , and alternatives were discussed with the patient. The patient agreed to proceed with the procedure and signed the consent, and vital signs were stable. Patient was taken to the OR and time out was completed. The patient was placed in the prone position on procedure table and a pillow was placed under the abdomen to reduce lumbar lordosis. The lumbosacral area was prepped and draped in the usual sterile fashion.ere closely monitored during the procedure. Vital signs was monitered during the entire procedure. Using anterior-posterior fluoroscopy, the L5-S1 interlaminar space was identified and the skin over this site was marked and then infiltrated with 1% lidocaine subcutaneously. Subsequently, a 20-gauge Tuohy epidural needle was inserted and advanced toward the epidural space using the ``Loss of resistance technique and guided by AP and lateral fluoroscopy. The correct needle position in the epidural space was verified with the injection of 2 mL of the water soluble contrast dye Isovue 200 contrast and observing an excellent epidurogram with the epidural spread of the dye, after negative aspiration for blood and CSF and in the absence of paresthesias. Again after negative aspiration, a 6 ml mixture containing 40 mg of Depo-medrol ( Preservetive Free ), and 2 ml of preservative free Normal Saline, and 2 ml of preservative free lidocaine 1% solution was injected and a washout of epidurogram was seen. Needle was withdrawn intact, skin was cleansed, and bandages were applied. COMPLICATIONS: None DISPOSITION / PLANS: The patient was placed in a supine position and transferred to the recovery area in a stable condition for observation. There was no evidence of lower extremity motor or sensory deficit after the procedure. Patient was discharged from the recovery room after meeting discharge criteria. Home discharge instructions were given to the patient by the staff. The patient was reexamined prior to discharge. The patient will schedule a follow up in the clinic in 2-4 weeks.
--- NOTE | 2024-06-29 15:55 | FL ---
Fluoroscopy INDICATION: Pain FINDINGS: Fluoroscopy time: 1 seconds. Total dose area product (DAP) in uGy*m?, mGy*cm? (or similar): 0.68702 Images obtained: 2. IMPRESSION: 1. Documentation of fluoroscopy. [facility], Workstation: [facility], 06/29/2024 3:53 PM
[2024-06-29 18:13] VITALS: BP 132/80; PULSE 75
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
== END 2024-06-29 20:30 | disposition home health service (06) | DRG 552 ==
LOC: EC 18:49 → 5NMEDONC 06-23 01:14
PROVIDERS: ADMIT Hospitalist; ATTEND Hospitalist
PROC: 3E0R33Z Introduction of Anti-inflammatory into Spinal Canal, Percutaneous Approach (ICD-10-PCS; principal; 2024-06-23)
PROC: B01B1ZZ Fluoroscopy of Spinal Cord using Low Osmolar Contrast (ICD-10-PCS; 2024-06-23)
PROC: 0D9670Z Drainage of Stomach with Drainage Device, Via Natural or Artificial Opening (ICD-10-PCS; 2024-06-23)
DX: M51.16 Intervertebral disc disorders with radiculopathy, lumbar region (principal); K56.50 Intestinal adhesions [bands], unspecified as to partial versus complete obstruction; E44.0 Moderate protein-calorie malnutrition; E87.20 Acidosis, unspecified; Z68.1 Body mass index [BMI] 19.9 or less, adult; E87.1 Hypo-osmolality and hyponatremia; E83.42 Hypomagnesemia; E87.6 Hypokalemia; E86.0 Dehydration; I10 Essential (primary) hypertension; M47.26 Other spondylosis with radiculopathy, lumbar region; M48.061 Spinal stenosis, lumbar region without neurogenic claudication; M51.17 Intervertebral disc disorders with radiculopathy, lumbosacral region; K56.41 Fecal impaction; R53.81 Other malaise; Z86.711 Personal history of pulmonary embolism; Z87.891 Personal history of nicotine dependence; Z92.21 Personal history of antineoplastic chemotherapy; Z92.3 Personal history of irradiation
CPT/HCPCS: 36415; 62323; 72158; 74019; 74176; 80048; 80053; 81003; 82150; 83605; 83690; 83735; 83880; 84132; 85025; 85027; 85610; 85730; 93005; 93970; 96361; 96365; 96366; 96368; 96375; 99285

== ENCOUNTER 2024-07-03 19:45 | Inpatient (IN) | payer OTHER ==
[2024-07-03] MEDS: SODIUM CHLORIDE 0.9% 1,000 ML IV STA (20:40)
[2024-07-03] MEDS: KETOROLAC 15 MG/ML 1 ML VIAL IVP STA (20:41)
[2024-07-03] MEDS: ONDANSETRON 4 MG/2 ML VIAL IVP STA (20:41)
[2024-07-03] MEDS: MORPHINE SULFATE 4 MG/ML SYRINGE IVP STA (20:41)
[2024-07-03 20:45] LABS: Basophils % (A) 0 %; Eosinophils # (A) 0.1 k/uL (0-0.7); Eosinophils % (A) 1 %; HCT 32.7 % (39.0-53.0); HGB 10.3 gm/dL (13.0-17.5); Hypochromasia Moderate; Lymphocytes # (A) 1.3 k/uL (1.0-4.8); Lymphocytes % (A) 17 %; MCH 26.7 pg (25.0-35.0); MCHC 31.6 g/dL (31.0-37.0); MCV 84.7 fL (80.0-100.0); Mean Platelet Volume 6.9; Monocytes # (A) 0.4 k/uL (0-1.0); Monocytes % (A) 5 %; Neutrophils # (A) 5.6 k/uL (1.3-7.7); Neutrophils % (A) 75 %; Platelet Count 591 k/uL (150-450); Poikilocytosis Slight; RBC 3.87 m/uL (4.30-5.90); RDW 15.3 % (11.5-15.5); WBC 7.5 k/uL (3.8-10.6)
[2024-07-03 20:46] LABS: ALT 28 U/L (4-49); AST 26 U/L (17-59); African American GFR (CKD) >90 (>60 ml/min/1.73 sqM); Albumin 2.7 g/dL (3.5-5.0); Alkaline Phosphatase 167 U/L (38-126); Anion Gap 2 mmol/L; Blood Urea Nitrogen 17 mg/dL (9-20); Calcium 7.8 mg/dL (8.4-10.2); Carbon Dioxide 30 mmol/L (22-30); Chloride 104 mmol/L (98-107); Glucose 94 mg/dL (74-99); Lipase 43 U/L (23-300); Non-African American GFR(CKD) >90 (>60 ml/min/1.73 sqM); Potassium 3.8 mmol/L (3.5-5.1); Sodium 136 mmol/L (137-145); Total Bilirubin 0.4 mg/dL (0.2-1.3); Total Protein 5.4 g/dL (6.3-8.2)
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
--- NOTE | 2024-07-03 21:46 | CT ---
EXAMINATION TYPE: CT abdomen pelvis w con DATE OF EXAM: 07/03/2024 9:26 PM COMPARISON: Multiple prior CT abdomen/pelvis studies, most recently dated 06/22/2024. CLINICAL INDICATION: Male, 43 years old with history of RLQ abd pain; RLQ abdominal pain. TECHNIQUE: Axial CT abdomen pelvis w con;Sagittal and coronal reformats were created on a separate w orkstation. Contrast used:100 ml mL of Isovue 300 with IV Contrast, (none if empty) Oral contrast used: without Oral Contrast (none if empty) CT DLP: 344.5 mGycm, Automated exposure control for dose reduction was used. FINDINGS: Partially visualized lower lungs and no acute pathology. Liver parenchyma hypoattenuating suggesting steatosis. Gallbladder unremarkable. No abnormal biliary duct dilatation. The glenoid chronic pancreatitis with desiccation and ductal dilatation. No suspicio us adrenal gland nodule. Kidneys enhance symmetrically bilaterally. Spleen normal size and morphology . Abdominal aorta normal caliber. Slight artery and SMA appear patent. Evaluation limited due to paucity of intra-abdominal fat. Numerous fluid-filled dilated small bowel l oops measuring up to 4 cm in diameter. Distal small bowel loops in the right lower quadrant are nondi stended suggesting right hemiabdominal transition point. There are anastomotic changes noted througho ut the bowel. Multiple left abdominal small bowel loops imaged at wall thickening. Liquid stool throu ghout colon suggesting diarrhea. Urinary bladder unremarkable. Chronic L4 compression deformity with associated sclerotic changes. Chronic compression deformities of the superior endplates involving T11 and T12. Osseous structures appear demineralized. No definite evidence of free air/peritoneum at thi s time. Gas throughout the spinal canal, recommend correlation clinically for any recent procedures. IMPRESSION: 1. Numerous dilated fluid-filled small bowel loops with suspected right kaiser-abdominal transition po int concerning for small bowel obstruction. Surgical consultation is recommended. No evidence of free air/retroperitoneum at this time. 2. Small bowel loops in the left hemiabdomen demonstrating wall thickening/mucosal hyperenhancement suggesting underlying component of infectious/inflammatory enteritis. 3. Additional nonacute findings as above. [facility], , 07/03/2024 9:44 PM
[2024-07-03] MEDS ORDERED: NALOXONE 0.4 MG/ML 1 ML VIAL IV PRN (22:38)
[2024-07-03] MEDS ORDERED: ONDANSETRON 4 MG/2 ML VIAL IVP PRN (22:38)
[2024-07-03] MEDS: SODIUM CHLORIDE 0.9% 1,000 ML IV SCH (23:28)
[2024-07-03] MEDS: HYDROmorphone 1 MG/ML 1 ML SYRINGE IVP PRN (23:28)
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
[2024-07-04] MEDS: SODIUM CHLORIDE 0.9% 1,000 ML IV SCH (01:41)
[2024-07-04] MEDS: KETOROLAC 15 MG/ML 1 ML VIAL IVP PRN (01:47)
[2024-07-04 03:00] LABS: Appearance,Urine Clear (Clear); Bilirubin,Urine Negative (Negative); Blood,Urine Negative (Negative); Color,Urine Light Yellow; Glucose,Urine (UA) Negative (Negative); Ketones,Urine Negative (Negative); Leukocyte Esterase,Urine Negative (Negative); Mucus,Urine Rare /hpf; Nitrite,Urine Positive (Negative); Protein,Urine Trace (Negative); RBC,Urine 1 /hpf (0-5); Squamous Epithelial Cell,Urine 1 /hpf (0-4); Urobilinogen,Urine <2.0 mg/dL (<2.0); WBC,Urine 3 /hpf (0-5)
--- NOTE | 2024-07-04 04:49 | XR ---
EXAM: XR Chest, 1 View CLINICAL HISTORY: NG tube TECHNIQUE: Frontal view of the chest. COMPARISON: June 23, 2024 FINDINGS: Lungs: Unremarkable. No acute infiltration, atelectasis or mass. Pleural space: Unremarkable. No pneumothorax or pleural fluid. Heart: Unremarkable. No cardiomegaly. Mediastinum: Unremarkable. Normal mediastinal contour. Bones/joints: No acute findings. Tubes, lines and devices: A gastric tube is in the stomach with the tip in the mid stomach. IMPRESSION: A gastric tube is in the stomach with the tip in the mid stomach.
[2024-07-04] MEDS: FAMOTIDINE 20 MG/2 ML VIAL IV SCH (08:02)
[2024-07-04] MEDS: HEPARIN SODIUM,PORCINE 5,000 UNIT/ML 1 ML VIAL SQ SCH (08:02)
[2024-07-04 08:16] LABS: African American GFR (CKD) >90 (>60 ml/min/1.73 sqM); Anion Gap 3 mmol/L; Blood Urea Nitrogen 15 mg/dL (9-20); Calcium 7.4 mg/dL (8.4-10.2); Carbon Dioxide 28 mmol/L (22-30); Chloride 103 mmol/L (98-107); Glucose 61 mg/dL (74-99); Non-African American GFR(CKD) >90 (>60 ml/min/1.73 sqM); Sodium 134 mmol/L (137-145)
[2024-07-04 08:23] LABS: Potassium 4.5 mmol/L (3.5-5.1)
--- NOTE | 2024-07-04 09:18 | P.PN ---
Subjective Progress Note Date: 07/04/24 patient appears to be cachectic he is resting in bed. His NG tube is in place. On exam vital signs are stable. Abdomen soft mildly distended. History of small obstruction. Patient will be reevaluated Dr. Andujar in the morning. Objective - Vital Signs Vital signs: Vital Signs Temp 98 F 07/04/24 07:41 Pulse 73 07/04/24 07:41 Resp 17 07/04/24 07:41 BP 147/83 07/04/24 07:41 Pulse Ox 100 07/04/24 07:41 FiO2 Intake & Output 07/03/24 07/04/24 07/04/24 18:59 06:59 18:59 Output Total 0 Balance 0 Weight 54.431 kg Output: Urine 0 - Labs CBC & Chem 7: 07/03/24 20:23 07/04/24 06:45 Labs: Abnormal Lab Results - Last 24 Hours (Table) 07/03/24 07/03/24 07/03/24 Range/Units 20:23 20:23 20:23 RBC 3.87 L (4.30-5.90) m/uL Hgb 10.3 L (13.0-17.5) gm/dL Hct 32.7 L (39.0-53.0) % Plt Count 591 H (150-450) k/uL Sodium 136 L (137-145) mmol/L Creatinine 0.65 L (0.66-1.25) mg/dL Glucose (74-99) mg/dL Plasma Lactic Acid [place]ady 2.1 H* (0.7-2.0) mmol/L Calcium 7.8 L (8.4-10.2) mg/dL Alkaline Phosphatase 167 H (38-126) U/L Total Protein 5.4 L (6.3-8.2) g/dL Albumin 2.7 L (3.5-5.0) g/dL Ur Specific [place] (1.001-1.035) Urine Protein (Negative) Urine Mucus (None) /hpf 07/04/24 07/04/24 Range/Units 01:49 06:45 RBC (4.30-5.90) m/uL Hgb (13.0-17.5) gm/dL Hct (39.0-53.0) % Plt Count (150-450) k/uL Sodium 134 L (137-145) mmol/L Creatinine 0.57 L (0.66-1.25) mg/dL Glucose 61 L (74-99) mg/dL Plasma Lactic Acid [place] (0.7-2.0) mmol/L Calcium 7.4 L (8.4-10.2) mg/dL Alkaline Phosphatase (38-126) U/L Total Protein (6.3-8.2) g/dL Albumin (3.5-5.0) g/dL Ur Specific [place] 1.050 H (1.001-1.035) Urine Protein Trace H (Negative) Urine Mucus Rare H (None) /hpf
[2024-07-04 11:36] LABS: Basophils % (A) 1 %; Eosinophils # (A) 0.1 k/uL (0-0.7); Eosinophils % (A) 1 %; HCT 31.8 % (39.0-53.0); HGB 9.5 gm/dL (13.0-17.5); Hypochromasia Marked; Lymphocytes # (A) 1.2 k/uL (1.0-4.8); Lymphocytes % (A) 17 %; MCH 26.3 pg (25.0-35.0); MCHC 29.9 g/dL (31.0-37.0); MCV 87.9 fL (80.0-100.0); Mean Platelet Volume 7.1; Monocytes # (A) 0.4 k/uL (0-1.0); Monocytes % (A) 6 %; Neutrophils # (A) 5.6 k/uL (1.3-7.7); Neutrophils % (A) 75 %; Platelet Count 432 k/uL (150-450); Poikilocytosis Slight; RBC 3.62 m/uL (4.30-5.90); RDW 15.6 % (11.5-15.5); WBC 7.5 k/uL (3.8-10.6)
[2024-07-04] MEDS: MORPHINE SULFATE 2 MG/ML SYRINGE IVP PRN (20:19)
[2024-07-05 07:59] VITALS: RESP 16
--- NOTE | 2024-07-05 11:41 | P.PN ---
Subjective Progress Note Date: 07/05/24 SURGICAL PROGRESS NOTE CHIEF COMPLAINT: SBO HISTORY OF PRESENT ILLNESS: Patient presented with abdominal pain and vomiting. Found to have small bowel obstruction on CT scan. Patient has NG tube in place with 500 mL output. Patient has had no flatus or bowel movement. Complains of pain more on the right side of the abdomen. PHYSICAL EXAM: VITAL SIGNS: Reviewed. GENERAL: Well-developed in no acute distress. HEENT: No sclera icterus. Extraocular movements grossly intact. Moist buccal mucosa. Head is atraumatic, normocephalic. ABDOMEN: Soft. Mildly distended. Diffuse tenderness but more tender on the right side of the abdomen. Midline incision scar clean dry and intact NEUROLOGIC: Alert and oriented. Cranial nerves II through XII grossly intact. ASSESSMENT: 1. Small bowel obstruction 2. Prior history of small bowel obstruction and lysis of adhesions 3. History of perforated proximal small bowel status post resection and [id number] duodenojejunostomy in August 2023 PLAN: -Continue NG tube for decompression -Keep patient n.p.o. -Continue IV fluids -Continue pain management. Change Toradol to scheduled -Encourage patient to increase activity level -DVT prophylaxis subcu heparin and GI prophylaxis Pepcid Physician Pillar Worker note has been reviewed by physician. Signing provider agrees with the documented findings, assessment, and plan of care. Objective - Vital Signs Vital signs: Vital Signs Temp 97.5 F L 07/05/24 07:25 Pulse 56 L 07/05/24 07:25 Resp 16 07/05/24 07:25 BP 160/93 07/05/24 07:25 Pulse Ox 100 07/05/24 07:25 FiO2 Intake & Output 07/04/24 07/05/24 07/05/24 18:59 06:59 18:59 Intake Total 1500 1500 Output Total 1200 1100 Balance 300 400 Intake: Intake, IV Titration 1500 1500 Amount Sodium Chloride 0.9% 1, 1500 1500 000 ml @ 125 mls/hr IV . Q8H [facility] Rx#:[id number] Output: Gastric Drainage 300 500 Urine 900 600 Other: Voiding Method Urinal Urinal - Labs CBC & Chem 7: 07/04/24 10:58 07/04/24 06:45 Labs: Abnormal Lab Results - Last 24 Hours (Table) 07/04/24 Range/Units 10:58 RBC 3.62 L (4.30-5.90) m/uL Hgb 9.5 L (13.0-17.5) gm/dL Hct 31.8 L (39.0-53.0) % MCHC 29.9 L (31.0-37.0) g/dL RDW 15.6 H (11.5-15.5) %
[2024-07-05] MEDS: KETOROLAC 15 MG/ML 1 ML VIAL IVP SCH (12:10)
[2024-07-05] MEDS: METOPROLOL TARTRATE 25 MG TAB PO SCH (15:23)
--- NOTE | 2024-07-05 15:50 | P.DS ---
Providers Date of admission: 07/03/24 23:24 Expected date of discharge: 07/05/24 Attending physician: Ashu Zimmer MD Consults: 07/05/24 07:52 Consult Physician Routine Consulting Provider: Leta Easton Consult Reason/Comments: SBO Do you want consulting provider notified?: Already Contacted Primary care physician: Lenin Castillo MD Hospital Course: CHIEF COMPLAINT: Small bowel obstruction HISTORY OF PRESENT ILLNESS: The patient is a 43-year-old male with personal history of intermittent bowel obstructions. His personal history significant for mandibular cancer treated with chemoradiation a year ago with placement of feeding tube. Subsequently, patient developed small bowel perforation in August 2023 with exploratory laparotomy. Two 2 months later patient developed recurrent small bowel obstruction requiring lysis of adhesions. Last exploratory laparotomy was December 2023. Patient was recently discharged from the hospital 1 week ago for chronic lower back pain including bowel obstruction that resolved with conservative management and nasogastric tube decompression. He is tolerating diet. Patient returned to the hospital with mild crampy abdominal p ain. Nasogastric tube has been placed. ROS: No reports of nausea and vomiting. No bowel movements. No fevers or chills. No new chest pain. No productive sputum PHYSICAL EXAM: VITAL SIGNS: Reviewed CONSTITUTIONAL: Well developed and in no acute distress. EYES: Conjuctivae without sclera icterus. Extraocular movements grossly intact. HEAD, EARS, NOSE, THROAT: Moist buccal mucosa. Head is atraumatic, normocephalic. Hears conversational speech. No nasal drainage. RESPIRATORY: Non-labored respirations and equal bilateral excursions. CARDIOVASCULAR: Palpable 2+ radial pulses. ABDOMEN: Scaphoid without peritonitis MUSCULOSKELETAL: No gross deformity of the lower extremities noted. No clubbing. No cyanosis. SKIN: Good skin turgor. Well perfused. NEUROLOGIC: Cranial nerves II through XII grossly intact. No focal or lateralizing signs. PSYCH: Appropriate affect. Alert and oriented to person, place and time. CLINICAL LABS: Reviewed. STUDIES: CT of the abdomen pelvis demonstrated mid abdomen bowel distention however air and gas within the colon into the rectum. Findings more consistent with partial bowel obstruction. ASSESSMENT: 1. Small bowel obstruction PLAN: 1. At this time, nasogastric tube has been placed. 2. Due to patient's insurance, immediate transfer requested for continuity of care 3. [facility] transfer team contacted Nahed Shelton [phone]. Patient being transferred to [facility]. Patient being accepted to medicine service under Dr. Morgan Patient Condition at Discharge: Stable Plan - Discharge Summary Discharge Rx Participant: Yes New Discharge Prescriptions: Continue Metoprolol Tartrate [Lopressor] 25 mg PO BID HYDROcodone/APAP 5-325MG [[place] 5-325] 1 tab PO Q6HR PRN 3 Days #12 tab PRN Reason: Pain Pantoprazole [Protonix] 40 mg PO BID Discharge Medication List Metoprolol Tartrate [Lopressor] 25 mg PO BID 06/23/24 [History] Pantoprazole [Protonix] 40 mg PO BID 06/23/24 [History] HYDROcodone/APAP 5-325MG [[place] 5-325] 1 tab PO Q6HR PRN 3 Days #12 tab 06/28/24 [Rx] Follow up Appointment(s)/Referral(s): Lenin Castillo MD [Primary Care Provider] - 1-2 days Discharge Disposition: DISCH/TRANS TO A [facility]
[2024-07-06] MEDS: hydrALAZINE HCL 20 MG/ML 1 ML VIAL IVP PRN (01:35)
[2024-07-06 12:35] VITALS: BP 166/84; PULSE 58; TEMP 97.6
--- NOTE | 2024-07-06 12:52 | P.PN ---
Subjective Progress Note Date: 07/06/24 SURGICAL PROGRESS NOTE CHIEF COMPLAINT: SBO HISTORY OF PRESENT ILLNESS: Patient reports a small amount of flatus. He does report more back pain. NG tube with 650 mL thick brown output. Afebrile. WBC is 7.5 Hgb 10.3 down to 9.5 platelets 432 PHYSICAL EXAM: VITAL SIGNS: Reviewed. GENERAL: Well-developed in no acute distress. HEENT: No sclera icterus. Extraocular movements grossly intact. Moist buccal mucosa. Head is atraumatic, normocephalic. ABDOMEN: Soft. Nondistended. Tender more on the right side of the abdomen NEUROLOGIC: Alert and oriented. Cranial nerves II through XII grossly intact. ASSESSMENT: 1. Small bowel obstruction 2. Prior history of small bowel obstruction and lysis of adhesions 3. History of perforated proximal small bowel status post resection and [id number] duodenojejunostomy in August 2023 PLAN: -Transfer to [facility] in [place] is in process. Awaiting bed availability. Transfer has been requested due to [facility] being out of network with patient's insurance -Continue NG tube for decompression -Keep patient n.p.o. -Continue IV fluids -Continue pain management -Encourage patient to increase activity level -DVT prophylaxis subcu heparin and GI prophylaxis Pepcid Physician Operations Business Partner note has been reviewed by physician. Signing provider agrees with the documented findings, assessment, and plan of care. Objective - Vital Signs Vital signs: Vital Signs Temp 97.6 F 07/06/24 12:35 Pulse 58 L 07/06/24 12:35 Resp 16 07/06/24 12:35 BP 166/84 07/06/24 12:35 Pulse Ox 100 07/06/24 12:35 FiO2 Intake & Output 07/05/24 07/06/24 07/06/24 18:59 06:59 18:59 Intake Total 1500 Output Total 1000 2200 Balance -1000 -700 Intake: Intake, IV Titration 1500 Amount Sodium Chloride 0.9% 1, 1500 000 ml @ 125 mls/hr IV . Q8H [facility] Rx#:[id number] Output: Gastric Drainage 650 Urine 1000 1550 Other: Voiding Method Urinal - Labs CBC & Chem 7: 07/04/24 10:58 07/04/24 06:45
--- NOTE | 2024-07-06 14:51 | XR ---
EXAMINATION TYPE: XR abdomen 2V DATE OF EXAM: 07/06/2024 2:21 PM COMPARISON: 06/23/2024 CLINICAL INDICATION: Male, 43 years old with history of abdominal pain, follow up on SBO; [facility] TECHNIQUE: Two views of the abdomen were obtained. FINDINGS/IMPRESSION: Persistent gaseous dilation of bowel throughout the abdomen with larger distenti on of what is thought to be the colon in the low pelvis. Gastrografin small bowel follow-through eduardo mmended to encourage movement of feces. [facility], , 07/06/2024 2:48 PM
== END 2024-07-06 17:05 | DRG 389 ==
LOC: EC 19:45 → OBSVTOIN 23:24 → 6NMEDSUR 23:24 → 5NMEDONC 07-04 02:54
PROVIDERS: ADMIT Surgery; ATTEND Surgery
PROC: 0D9670Z Drainage of Stomach with Drainage Device, Via Natural or Artificial Opening (ICD-10-PCS; principal; 2024-07-03)
DX: K56.609 Unspecified intestinal obstruction, unspecified as to partial versus complete obstruction (principal); K86.1 Other chronic pancreatitis; M54.50 Low back pain, unspecified; R03.0 Elevated blood-pressure reading, without diagnosis of hypertension; G89.29 Other chronic pain; F10.11 Alcohol abuse, in remission; Z79.899 Other long term (current) drug therapy; Z85.830 Personal history of malignant neoplasm of bone; Z86.711 Personal history of pulmonary embolism; Z87.891 Personal history of nicotine dependence; Z28.311 Partially vaccinated for COVID-19; Z92.21 Personal history of antineoplastic chemotherapy; Z92.3 Personal history of irradiation
CPT/HCPCS: 36415; 74019; 74177; 80048; 80053; 81001; 83605; 83690; 85025; 93005; 96361; 96374; 96375; 96376; 99285

== ENCOUNTER 2024-12-09 15:41 | Observation (INO) | payer OTHER ==
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
[2024-12-09 18:00] LABS: Basophils # (A) 0.06 10*3/uL (0.00-0.10); Basophils % (A) 0.7 %; Eosinophils # (A) 0.05 10*3/uL (0.04-0.35); Eosinophils % (A) 0.6 %; HCT 37.5 % (39.6-50.0); HGB 12.2 g/dL (13.0-17.0); Lymphocytes # (A) 1.58 10*3/uL (0.90-5.00); Lymphocytes % (A) 19.4 %; MCH 22.3 pg (27.0-32.0); MCHC 32.5 g/dL (32.0-37.0); MCV 68.4 fL (80.0-97.0); Mean Platelet Volume 9.1 fL (9.5-12.2); Monocytes # (A) 0.61 10*3/uL (0.20-1.00); Monocytes % (A) 7.5 %; Neutrophils # (A) 5.82 10*3/uL (1.80-7.70); Neutrophils % (A) 71.6 %; Platelet Count 460 10*3/uL (140-440); RBC 5.48 10*6/uL (4.40-5.60); RDW 15.8 % (11.5-14.5); WBC 8.14 10*3/uL (4.50-10.00)
[2024-12-09] MEDS: SODIUM CHLORIDE 0.9% 1,000 ML IV ONE (18:31)
[2024-12-09] MEDS: HYDROmorphone 1 MG/ML 1 ML SYRINGE IVP STA ×2 (18:36→21:44)
[2024-12-09] MEDS: ONDANSETRON 4 MG/2 ML VIAL IVP STA ×2 (18:37→21:47)
[2024-12-09 19:13] LABS: ALT 14 U/L (4-49); AST 22 U/L (17-59); African American GFR (CKD) 83 (>60 ml/min/1.73 sqM); Albumin 4.8 g/dL (3.5-5.0); Alkaline Phosphatase 177 U/L (38-126); Amylase 166 U/L (30-110); Anion Gap 15 mmol/L; Blood Urea Nitrogen 23 mg/dL (9-20); Calcium 9.3 mg/dL (8.4-10.2); Carbon Dioxide 34 mmol/L (22-30); Chloride 92 mmol/L (98-107); Glucose 140 mg/dL (74-99); Lipase 109 U/L (23-300); Non-African American GFR(CKD) 72 (>60 ml/min/1.73 sqM); Potassium 3.5 mmol/L (3.5-5.1); Sodium 141 mmol/L (137-145); Total Bilirubin 0.6 mg/dL (0.2-1.3); Total Protein 8.4 g/dL (6.3-8.2)
--- NOTE | 2024-12-09 19:33 | CT ---
EXAMINATION TYPE: CT abdomen pelvis w con CT DLP: 542.8 mGycm, Automated exposure control for dose reduction was used. DATE OF EXAM: 12/09/2024 7:21 PM COMPARISON: Multiple CT abdomen pelvis with most recent 07/03/2024 CLINICAL INDICATION:Male, 44 years old with history of Upper abdominal pain; nausea, vomiting TECHNIQUE: Standard CT of the abdomen and pelvis following the administration of 100 cc of Isovue 3 00 IV contrast material. Coronal and sagittal reformats were performed. FINDINGS: LOWER CHEST: Circumferential wall thickening of the visualized distal esophagus measuring up to 6 mm. ABDOMEN LIVER: Unremarkable GALLBLADDER AND BILE DUCTS: Unremarkable. PANCREAS: Scattered pancreatic parenchymal calcifications with the largest in the head measuring up t o 2.3 cm again. There is tortuous beaded appearance of the pancreatic duct. No surrounding inflammato ry changes or fluid collections. SPLEEN: Unremarkable. ADRENAL GLANDS: Unremarkable. KIDNEYS AND URETERS: No evidence of hydronephrosis or renal calculus. The kidneys enhance symmetrical ly. Contrast is demonstrated within both collecting systems and proximal ureters on the delayed phase . PELVIS BLADDER: Distended gallbladder without visualized wall thickening or surrounding inflammatory changes . No biliary duct dilatation. REPRODUCTIVE: Unremarkable. ABDOMEN & PELVIS STOMACH AND BOWEL: Small hiatal hernia, duodenum is unremarkable. Moderate amount of stool is present within the distal colon. The appendix is within normal limits. Irregular short segment wall thickeni ng involving the ascending colon (series 201, image 237). Postsurgical changes of the small bowel. Ci rcumferential regions of wall thickening of the small bowel measuring up to 8 mm. No surrounding fat stranding. No evidence of bowel obstruction. PERITONEUM: No evidence of pneumoperitoneum or free fluid. VASCULATURE: No evidence of aortic aneurysm. MUSCULOSKELETAL: No acute osseous abnormalities. Similar multilevel superior endplate compression def ormities with sclerosis from prior exam involving the T12, L1, L2, L4, and L5 vertebral bodies. Appro ximately 5% height loss with no retropulsion. LYMPH NODES: No evidence for lymphadenopathy. SOFT TISSUE/ABDOMINAL WALL: Unremarkable IMPRESSION: 1. Circumferential wall thickening of the small bowel which can be seen with an enteritis. 2. Irregular short segment bowel wall thickening of the ascending colon for possible malignancy. [place] noscopy is recommended. 3. Distended gallbladder without surrounding inflammatory changes. Consider further evaluation with u ltrasound if there is concern for acute cholecystitis. 4. Findings of chronic pancreatitis. 5. Redemonstration of multilevel superior endplate compression deformities of the thoracolumbar spine with approximately 5% height loss and no retropulsion. 6. Circumferential wall thickening of the distal esophagus with small hiatal hernia. Correlate for GE RD/esophagitis. [facility], , 12/09/2024 7:31 PM
[2024-12-09 19:45] LABS: Appearance,Urine Cloudy (Clear); Bilirubin,Urine Negative (Negative); Blood,Urine Negative (Negative); Color,Urine Yellow; Glucose,Urine (UA) Negative (Negative); Ketones,Urine 2+ (Negative); Leukocyte Esterase,Urine Negative (Negative); Mucus,Urine Rare /hpf; Nitrite,Urine Negative (Negative); PH, Urine 7.5 (5.0-8.0); Protein,Urine 1+ (Negative); RBC,Urine 2 /hpf (0-5); Specific Gravity,Urine 1.023 (1.001-1.035); Squamous Epithelial Cell,Urine <1 /hpf (0-4); WBC,Urine 2 /hpf (0-5)
--- NOTE | 2024-12-09 21:17 | US ---
EXAMINATION TYPE: US gallbladder DATE OF EXAM: 12/09/2024 COMPARISON: CT same day CLINICAL INDICATION: Male, 44 years old with history of Right sided abdominal pain, abnormal US; righ t sided pain TECHNIQUE: Grayscale and color Doppler imaging of the right upper quadrant was performed. FINDINGS: EXAM MEASUREMENTS: Liver Length: 14.3 cm Gallbladder Wall: 0.3 cm CBD: 0.8 cm Right Kidney: 8.8 x 5.7 x 4.0 cm UNDER BASTER NOTES:limited by bowel gas Pancreas: Obscured by bowel gas Liver: wnl as best seen Gallbladder: multiple septations seen within. wall upper limits of normal. hydropic Evidence for sonographic Gilliam's sign: Yes CBD: dilated Right Kidney: slightly small Pancreas is obscured by overlying bowel gas. The visualized liver appears unremarkable without focal lesion. Mildly hydropic gallbladder with septations. No shadowing calculi, wall thickening or surroun ding fluid. Reported positive sonographic Gilliam sign. Mild dilatation of the common bile duct. Right kidney demonstrates no hydronephrosis, shadowing calculus or solid mass. IMPRESSION: 1. Hydropic gallbladder with septations. No shadowing calculi, wall thickening or surrounding fluid to suggest acute cholecystitis. However reported positive sonographic Gilliam sign. Consider further e valuation with nuclear medicine HIDA scan. 2. Mild common bile duct dilatation. Correlation with biliary levels is recommended. Consider furthe r evaluation with MRCP/ERCP as clinically indicated. [facility], , 12/09/2024 9:15 PM
[2024-12-09] MEDS ORDERED: KETOROLAC 15 MG/ML 1 ML VIAL IVP PRN (21:46)
[2024-12-09] MEDS ORDERED: NALOXONE 0.4 MG/ML 1 ML VIAL IV PRN (21:46)
[2024-12-09] MEDS: KETOROLAC 15 MG/ML 1 ML VIAL IVP STA (21:46)
[2024-12-09] MEDS: FAMOTIDINE 20 MG/2 ML VIAL IV SCH (22:02)
[2024-12-09] MEDS: PANTOPRAZOLE 40 MG/10 ML VIAL IVP STA (22:02)
[2024-12-09] MEDS: SODIUM CHLORIDE 0.9% 1,000 ML IV SCH (22:03)
[2024-12-10] MEDS: HYDROmorphone 0.5 MG/0.5 ML SYRINGE IVP PRN ×2 (02:26→18:05)
[2024-12-10] MEDS: PANTOPRAZOLE 40 MG/10 ML VIAL IV SCH (09:11)
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
[2024-12-10] MEDS: HYDROmorphone 1 MG/ML 1 ML SYRINGE IVP PRN (09:58)
[2024-12-10 11:26] VITALS: BMI 20.9
[2024-12-10] MEDS ORDERED: IPRATROPIUM-ALBUTEROL 3 ML NEB INHALATION PRN (12:31)
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
[2024-12-10] MEDS: ONDANSETRON 4 MG/2 ML VIAL IVP PRN (13:19)
[2024-12-10] MEDS: IPRATROPIUM-ALBUTEROL 3 ML NEB INHALATION SCH (15:38)
--- NOTE | 2024-12-10 15:40 | P.PN ---
Subjective Progress Note Date: 12/10/24 CHIEF COMPLAINT: Right upper quadrant abdominal pain HISTORY OF PRESENT ILLNESS: The patient is a 44-year-old male with a multiple history of bowel obstructions comes in with intractable right upper quadrant abdominal pain. Earlier this morning, patient was complaining of severe constipation including abdominal pain. He had enema with moderate large bowel movements. Reassessment this afternoon, he still reports severe right upper quadrant abdominal pain and now has intractable nausea and vomiting. ROS: No bowel movements. No fevers or chills. No new chest pain. No productive sputum PHYSICAL EXAM: VITAL SIGNS: Reviewed CONSTITUTIONAL: Well developed and in no acute distress. EYES: Conjuctivae without sclera icterus. Extraocular movements grossly intact. HEAD, EARS, NOSE, THROAT: Moist buccal mucosa. Head is atraumatic, normocephalic. Hears conversational speech. No nasal drainage. RESPIRATORY: Non-labored respirations and equal bilateral excursions. CARDIOVASCULAR: Palpable 2+ radial pulses. ABDOMEN: Tender right upper quadrant MUSCULOSKELETAL: No gross deformity of the lower extremities noted. No clubbing. No cyanosis. SKIN: Good skin turgor. Well perfused. NEUROLOGIC: Cranial nerves II through XII grossly intact. No focal or lateralizing signs. PSYCH: Appropriate affect. Alert and oriented to person, place and time. CLINICAL LABS: Reviewed. ASSESSMENT: 1. Acute cholecystitis 2. Intractable nausea and vomiting 3. Severe constipation PLAN: 1. Patient had moderate results with enemas however he still has severe right upper quadrant abdominal pain now with intractable nausea and vomiting with bilious emesis. 2. Urgent robotic cholecystectomy described 3. Patient is elevated risk Dictation was produced using [employer] dictation software. Please excuse any grammatical, word or spelling errors. Objective - Vital Signs Vital signs: Vital Signs Temp 97.9 F 12/10/24 14:31 Pulse 66 12/10/24 14:31 Resp 17 12/10/24 15:09 BP 170/92 12/10/24 14:31 Pulse Ox 95 12/10/24 14:31 FiO2 Intake & Output 12/09/24 12/10/24 12/10/24 18:59 06:59 18:59 Intake Total 100 Balance 100 Weight 58.967 kg 58.967 kg 58.967 kg Intake: Oral 100 Other: # Voids 0 0 - Labs CBC & Chem 7: 05/15/25 16:18 12/09/24 18:22 Labs: Abnormal Lab Results - Last 24 Hours (Table) 12/09/24 12/09/24 12/09/24 Range/Units 16:18 18:22 19:36 Hgb 12.2 L (13.0-17.0) g/dL Hct 37.5 L (39.6-50.0) % MCV 68.4 L (80.0-97.0) fL MCH 22.3 L (27.0-32.0) pg Plt Count 460 H (140-440) 10*3/uL MPV 9.1 L (9.5-12.2) fL Chloride 92 L (98-107) mmol/L Carbon Dioxide 34 H (22-30) mmol/L BUN 23 H (9-20) mg/dL Glucose 140 H (74-99) mg/dL Alkaline Phosphatase 177 H (38-126) U/L Total Protein 8.4 H (6.3-8.2) g/dL Amylase 166 H (30-110) U/L Urine Protein 1+ H (Negative) Urine Ketones 2+ H (Negative) Urine Mucus Rare H (None) /hpf
[2024-12-10] MEDS: HEPARIN SODIUM,PORCINE 5,000 UNIT/ML 1 ML VIAL SQ SCH (16:04)
[2024-12-10] MEDS ORDERED: NEOSTIGMINE 1 MG/ML 10 ML VIAL ONE (16:28)
[2024-12-10] MEDS ORDERED: GLYCOPYRROLATE 0.2 MG/ML 2 ML VIAL ONE (16:28)
[2024-12-10] MEDS ORDERED: ONDANSETRON 4 MG/2 ML VIAL ONE (16:28)
[2024-12-10] MEDS ORDERED: SUCCINYLCHOLINE CHLORIDE 200 MG/10 ML VIAL IV ONE (16:28)
[2024-12-10] MEDS ORDERED: HEPARIN SODIUM,PORCINE 5,000 UNIT/ML 1 ML VIAL ONE (16:28)
[2024-12-10] MEDS ORDERED: MIDAZOLAM 2 MG/2 ML VIAL ONE (16:28)
[2024-12-10] MEDS ORDERED: fentaNYL (PF) 50 MCG/ML 2 ML AMP ONE (16:28)
[2024-12-10] MEDS ORDERED: HYDROmorphone (PF) 1 MG/ML ONE (16:28)
[2024-12-10] MEDS ORDERED: LIDOCAINE 1% INJ 10MG/ML (20 ML MDV) ONE (16:28)
[2024-12-10] MEDS ORDERED: PROPOFOL 10 MG/ML 20 ML VIAL IV ONE (16:28)
[2024-12-10] MEDS ORDERED: PHENYLEPHRINE-0.9% NACL SYG 1,000 MCG/10 ML SYRINGE ONE (16:28)
[2024-12-10] MEDS ORDERED: ROCURONIUM 10 MG/ML (5 ML VIAL) IV ONE (16:28)
[2024-12-10] MEDS ORDERED: DEXAMETHASONE SOD PHOSPHATE 4 MG/ML 1 ML VIAL ONE (16:28)
[2024-12-10] MEDS: SODIUM CHLORIDE 0.9% 50 ML with ceFAZolin 2,000 MG IV ONE (16:32)
[2024-12-10] MEDS: IV FLUID CONTINUATION 1,000 ML IV ONE (16:33)
[2024-12-10] MEDS: LIDOCAINE 1%-EPI 1:100,000 20 ML VIAL SQ ONE (17:04)
[2024-12-10] MEDS: LACTATED RINGERS 1,000 ML IV ONE (17:41)
--- NOTE | 2024-12-10 18:14 | P.OP ---
Date of Procedure: 12/10/24 Description of Procedure: SURGEON: VANDANA DIAZ MD PREOPERATIVE DIAGNOSES: 1. Acute hydropic cholecystitis 2. Right upper quadrant abdominal pain 3. Intractable nausea and vomiting 4. History of large and small bowel obstruction 5. History of peritoneal adhesions due to multiple abdominal procedures 6. History of sigmoid volvulus 7. Gastroesophageal reflux disease POSTOPERATIVE DIAGNOSES: 1. Acute hydropic cholecystitis 2. Right upper quadrant abdominal pain 3. Intractable nausea and vomiting 4. History of large and small bowel obstruction 5. History of peritoneal adhesions due to multiple abdominal procedures 6. History of sigmoid volvulus 7. Severe intra-abdominal adhesions 8. Gastroesophageal reflux disease OPERATION: Robotic-assisted da Deborah Xi laparoscopic lysis of adhesions over 60% of the case Robotic-assisted da Deborah Xi laparoscopic cholecystectomy, multiport with FIREFLY ESTIMATED BLOOD LOSS: 10 mL. SPECIMENS REMOVED: Gallbladder. COMPLICATIONS: None. OPERATIVE FINDINGS: 1. Moderate scarring over entire gallbladder with peritoneal adhesions, pericholecystic including intra-abdominal adhesions from multiple abdominal surgeries requiring over 60% of the case 2. Large hydropic gallbladder INDICATIONS: The patient is a 44-year-old male who presents with intractable nausea vomiting, right upper quadrant abdominal pain including acute cholecystitis. Robotic assisted laparoscopic approach was described. Benefits and risks of the procedure including but not limited to bleeding, infection, injury to the biliary tree was described. Informed consent was obtained. DESCRIPTION OF PROCEDURE: Patient was brought to the operating room, placed in supine position. After general induction, the abdomen had been prepped and draped in standard sterile fashion. The robotic da Deborah XI system was primed. After a timeout protocol was performed, the patient had been prepped and draped in standard sterile fashion. The patient was injected with indocyanine green. A 5 mm 0 degrees laparoscopic trocar entry was performed along the left upper quadrant. The abdomen insufflated to 15 mmHg pressure which was tolerated well. Diagnostic laparoscopy demonstrated no injury to bowel viscera or mesentery. The liver surface was unremarkable. Severe intra-abdominal adhesions involving the midline and left upper quadrant was identified. The gallbladder was moderately dilated consistent with hydrops. Next, two 8 mm robotic ports were placed along the right upper abdomen. The camera 8-mm port was maintained along the epigastrium. Another 8 mm port was placed along the left upper abdominal wall after exchanging the [address] ease note that the ports were placed at least 10 to 15 cm away from the target anatomy of the gallbladder. The robot was docked along the left lateral abdomen. The patient was repositioned in reverse Trendelenburg position. Using a grasper for arm 1, a grasper for arm 4, including hook cautery for arm 3, the robotic system was docked and primed as described. Instruments were interchanged by the automotive parts counter assistant including hook cautery, Bovie cautery and clip appliers. I had sat at the console. Lysis adhesions were performed to gain access to the gallbladder. The entire gallbladder was encased in moderate adhesions from prior surgery requiring extensive lysis of adhesions over 60% of the case. The gallbladder was scarred with peritoneal adhesions. Lysis of adhesions was performed to free the gallbladder from the surrounding tissues. Dome down technique was performed from the fundus towards the infundibulum along the attachments of the hepatic fossa. Next attention was brought to the infundibulum and cystic structures. The infundibulum and cystic duct were dissected free from surrounding tissues. The cystic duct was isolated. FIREFLY was used to identify the cystic artery and cystic structures. A critical view of safety was obtained. Medium PLASTIC clips were used throughout the entire case. Using a clip office machines teacher, 3 clips were placed at the junction of the infundibulum and cystic duct. The cystic duct was divided between clips. Next, the cystic artery was similarly clipped and cauterized. Electro-Bovie cautery was used to remove the gallbladder from the hepatic fossa. Hemostasis was checked and found to be adequate. The robot was undocked. I re-scrubbed into the case. Using a 10 mm Endo Catch bag via the midline epigastric quadrant incision, the specimen was removed from the abdominal cavity after widening the incision due to the large size of the gallbladder. Alfa Salazar 0 Vicryl was used to close the fascial defect. All pneumoperitoneum instruments were evacuated from the abdominal cavity. The incisions were reapproximated using 4-0 Monocryl in an interrupted subcuticular fashion. Fascial defects were less than 8 mm in size. Please note along the trocar sites, local anesthetic was placed as a field block prior to insertion of all instruments. Liquid glue was applied to the skin. At the end of the procedure needle, sponge, and instrument count had been verified correct by the neurosurgical physician assistant. The patient was transferred to postanesthesia care unit in stable condition. Voicemail message was left with the patient's mother regarding intraoperative findings and success of surgery at [id number]
[2024-12-10] MEDS: ENALAPRILAT 1.25 MG/ML 1 ML VIAL IVP STA (18:25)
[2024-12-10] MEDS: fentaNYL (PF) 50 MCG/ML 2 ML AMP IVP PRN ×2 (19:09→19:40)
[2024-12-10] MEDS: ACETAMINOPHEN IV (For NPO) 1,000 MG in EMPTY BAG 1 BAG IVPB SCH (19:30)
[2024-12-10] MEDS: SODIUM CHLORIDE 0.9% 1,000 ML IV ONE (20:02)
[2024-12-10] MEDS: ONDANSETRON 4 MG/2 ML VIAL IVP SCH (20:58)
[2024-12-10] MEDS ORDERED: PANTOPRAZOLE 40 MG/10 ML VIAL IV SCH (21:00)
[2024-12-10] MEDS: INDOCYANINE GREEN 25 MG VIAL IV STA (21:00)
[2024-12-10] MEDS: ceFAZolin 2 GM in DEXTROSE 5% IN WATER 50 ML IVPB STA (21:35)
[2024-12-10] MEDS: CYCLOBENZAPRINE 10 MG TAB PO SCH (21:46)
[2024-12-10] MEDS: METOCLOPRAMIDE 5 MG/ML 2 ML VIAL IVP SCH (21:46)
[2024-12-10] MEDS: hydrALAZINE HCL 20 MG/ML 1 ML VIAL IVP STA (22:57)
[2024-12-11 03:27] LABS: % Iron Saturation 21.6 (15.00-50.00); Ferritin 31.8 ng/mL (22.0-322.0)
[2024-12-11] MEDS: PANTOPRAZOLE 40 MG/10 ML VIAL IVP SCH (08:27)
--- NOTE | 2024-12-11 08:51 | P.PN ---
Progress Note - Text Progress Note Date: 12/11/24 Patient seen and examined. He is still having pain. He has not really tried to eat or drink anything. Denies nausea and vomiting VSS General-NAD CVS-RRR Lungs-NLB Abdomen-soft, incisional TTP, ND, incisions C/D/I Ext-no edema 44 year old male POD #1 Robotic Cholecystectomy -Low Fat Diet -Pain and Nausea Control -OOB, ambulate, IS -AM labs Collins Gomez DO [facility] [phone]
[2024-12-11 09:55] LABS: HCT 34.6 % (39.6-50.0); HGB 10.5 g/dL (13.0-17.0); MCH 21.9 pg (27.0-32.0); MCHC 30.3 g/dL (32.0-37.0); MCV 72.1 FL (80.0-97.0); Mean Platelet Volume 9.5 FL (9.5-12.2); NRBC Per 100 WBC 0 X 10*3/uL (0.00-0.01); Platelet Count 402 X 10*3/uL (140-440); RDW 16.2 % (11.5-14.5); WBC 9.11 X 10*3/uL (4.50-10.00)
[2024-12-11 10:40] LABS: Basophils # (A) 0.05 X 10*3/uL (0.00-0.10); Basophils % (A) 0.5 %; Eosinophils # (A) 0.07 X 10*3/uL (0.04-0.35); Eosinophils % (A) 0.8 %; Lymphocytes # (A) 1.69 X 10*3/uL (0.90-5.00); Lymphocytes % (A) 18.6 %; Monocytes # (A) 0.88 X 10*3/uL (0.20-1.00); Monocytes % (A) 9.7 %; Neutrophils # (A) 6.38 X 10*3/uL (1.80-7.70)
[2024-12-11 11:01] LABS: BUN/Creat Ratio 12.82 Ratio (12.00-20.00); Blood Urea Nitrogen 14.1 mg/dL (9.0-27.0); Glucose 100 mg/dL (70-110)
[2024-12-11 11:02] LABS: ALT 14 U/L (10-49); AST 32 U/L (14-35); Albumin 3.9 g/dL (3.8-4.9); Alkaline Phosphatase 151 U/L (41-126); Calcium 8.4 mg/dL (8.7-10.3); Carbon Dioxide 23.9 mmol/L (21.6-31.8); Chloride 100 mmol/L (96-109); Globulin 2.6 g/dL (1.6-3.3); Potassium 3.6 mmol/L (3.5-5.5); Sodium 138 mmol/L (135-145); Total Bilirubin 0.3 mg/dL (0.3-1.2); Total Protein 6.5 g/dL (6.2-8.2)
--- NOTE | 2024-12-11 14:01 | P.PN ---
Subjective Progress Note Date: 12/11/24 Patient is a 44-year-old male with a history of right-sided jaw cancer, currently in remission, status post chemotherapy and radiation, history of multiple abdominal surgeries and small bowel obstruction presented to the ER with a chief complaint of abdominal pain associated with nausea and vomiting since 2 days. Patient reports the pain is mainly in the right mid to upper quadrant of the abdomen. Patient has been receiving IV pain medications which has been helping with the pain however he continues to feel nauseated and still endorsing 7 out of 10 right-sided abdominal pain. Patient also complaining of constipation for the last couple of days. However denies any blood in the stool or tarry colored looking stool. Patient otherwise denies any chest pain or shortness of breath. Initial laboratory evaluation shows WBC 8.14, hemoglobin 12.2, hematocrit 37.5, platelet count 462, sodium 141, potassium 3.5, chloride 92, bicarb 34, anion gap 15, BUN 23, creatinine 1.01, glucose 140, blood lactic acid 1.3, AST 22, ALT 14, total bili 0.6, alkaline phosphatase 177, amylase 166, lipase 109,. Urinalysis is positive for mild proteinuria and ketonuria. Vital signs on arrival shows Tmax of 98.5 F, pulse rate 100, respiratory of 20, blood pressure 155/100, oxygen saturation 98% on room air. CT abdomen pelvis shows circumferential wall thickening of the small bowel which can be seen within enteritis. Irregular short segment bowel wall thickening of the ascending colon for possible malignancy. Distended gallbladder with surrounding inflammatory changes with concerns for acute cholecystitis. Findings of chronic pancreatitis. Circumferential wall thickening of the distal esophagus with small hiatal hernia. Gallbladder ultrasound shows hydropic gallbladder with septations. Mild common bile duct dilatation. And sonographic Gilliam sign is positive. EKG shows normal sinus rhythm with ventricular rate of 86 bpm, [place] interval of 136 ms, QRS duration of 74 ms, QTc [address] elevation noted. Poor R wave progression noted. No Q waves noted. 12/11/2024: Patient seen and examined at the bedside. Patient is postop day #1 of cholecystectomy. Continue to endorse mild abdominal pain mainly in the right upper and lower quadrant. Have not had a bowel movement since yesterday. C ontinue to feel mildly nauseated but no vomiting. Is able to tolerate liquid diet. WBC 9.1, hemoglobin 10.5, MCV 72.1, platelet count 4 2, sodium 138, potassium 3.6, BUN 14, creatinine 1.1, Social history: Patient smokes weed, denies alcohol Physical examination: Vital signs reviewed General: non toxic, no distress, appears at stated age, underweight Derm: no unusual rashes/lesions, warm Head: atraumatic, normocephalic, symmetric Eyes: EOMI, no lid lag, anicteric sclera, pupils equal round reactive to light ENT: Nose and ears atraumatic Neck: No cervical lymphadenopathy, trachea midline, supple Mouth: no lip lesion, mucus membranes moist Cardiovascular: S1S2 reg, no murmur, positive dorsalis pedis pulse bilateral, no edema Lungs: Bilateral wheezing and stridor noted, no rales, no accessory muscle use Abdominal: soft, right upper and lower quadrant tenderness upon palpation, no rebound tenderness, no guarding Ext: muscle strength 5 out of 5 in all 4 extremities grossly, no gross muscle atrophy, no contractures, Neuro: CN II-XI grossly intact, no gross focal neuro deficits Psych: Alert, oriented, appropriate affect Assessment/Plan: This is a 44-year-old male with a history of right-sided jaw cancer, currently in remission, status post chemotherapy and radiation, history of multiple abdominal surgeries and small bowel obstruction presented to the ER with a chief complaint of abdominal pain associated with nausea and vomiting since 2 days. . Case was discussed with the Emergency Room provider and decision was made to admit the patient for intractable abdominal pain Active: #Status post laparoscopic cholecystectomy, postop day #1 #Intractable abdominal pain #Intractable nausea and vomiting #History of multiple abdominal surgeries #Moderate to severe constipation as on CT abdomen pelvis #Enteritis on CT Abd/pelvis #Acute cholecystitis suspected #Metabolic alkalosis secondary to GI losses #Hydropic gallbladder with septation #History of right-sided jaw cancer, currently in remission, status post chemotherapy and radiation CT abdomen pelvis performed with results as above Gallbladder ultrasound shows hydropic gallbladder with septation Elevated ALP Right upper quadrant abdominal pain General Surgery has been consulted for possible inpatient cholecystectomy Continue with IV Dilaudid for pain management As needed Zofran for nausea and vomiting Protonix 40 mg IV push IV normal saline at 100 cc/h Enema for constipation Patient continued to be n.p.o. #Irregular short segment bowel wall thickening of the ascending colon, possible malignancy Outpatient colonoscopy recommended #COPD, not in exacerbation DuoNebs as scheduled and [id number] #Iron deficiency anemia Reviewed laboratories done on 10/23/2023 Iron studies: Iron 92, TIBC 426, percent saturation 21.6, transferrin 304, ferritin 31.8 Continue monitor CBC #Hyperglycemia Sliding scale insulin Monitor blood glucose Monitor hypoglycemia #Hypertension Order amlodipine 5 mg once daily DVT prophylaxis: Heparin 5000 units subcu every 8 over GI prophylaxis: Protonix F: IV normal saline E: As needed N: Currently n.p.o. A: Ambulatory at baseline The patient is admitted with an anticipated less than than 2 midnight stay for evaluation of intractable abdominal pain CODE STATUS: Full code Discussed with: Patient Anticipated discharge place: Pending clinical course Dictation was produced using [employer] dictation software. Please excuse any grammatical, word or spelling errors. 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
[2024-12-11] MEDS: ACETAMINOPHEN TAB 325 MG TAB PO PRN (18:51)
[2024-12-11 19:08] VITALS: RESP 18
[2024-12-12 08:24] VITALS: BP 151/88; PULSE 117; TEMP 98.6
[2024-12-12 10:19] LABS: Basophils # (A) 0.04 10*3/uL (0.00-0.10); Basophils % (A) 0.4 %; Eosinophils # (A) 0.14 10*3/uL (0.04-0.35); Eosinophils % (A) 1.4 %; HCT 34.8 % (39.6-50.0); HGB 10.6 g/dL (13.0-17.0); Lymphocytes # (A) 1.53 10*3/uL (0.90-5.00); Lymphocytes % (A) 14.9 %; MCHC 30.5 g/dL (32.0-37.0); MCV 72.2 fL (80.0-97.0); Mean Platelet Volume 9.6 fL (9.5-12.2); Monocytes # (A) 0.66 10*3/uL (0.20-1.00); Monocytes % (A) 6.4 %; Neutrophils # (A) 7.84 10*3/uL (1.80-7.70); Neutrophils % (A) 76.6 %; Platelet Count 342 10*3/uL (140-440); RBC 4.82 10*6/uL (4.40-5.60); WBC 10.24 10*3/uL (4.50-10.00)
[2024-12-12 10:30] LABS: ALT 12 U/L (4-49); AST 30 U/L (17-59); African American GFR (CKD) >90 (>60 ml/min/1.73 sqM); Albumin 3.8 g/dL (3.5-5.0); Albumin/Globulin Ratio 1.3; Alkaline Phosphatase 126 U/L (38-126); Anion Gap 15 mmol/L; Bilirubin,Unconjugated 0.3 mg/dL (0.0-1.1); Blood Urea Nitrogen 12 mg/dL (9-20); Calcium 9.1 mg/dL (8.4-10.2); Carbon Dioxide 20 mmol/L (22-30); Chloride 100 mmol/L (98-107); Globulin 2.9 g/dL; Glucose 163 mg/dL (74-99); Non-African American GFR(CKD) 90 (>60 ml/min/1.73 sqM); Potassium 3.6 mmol/L (3.5-5.1); Sodium 135 mmol/L (137-145); Total Bilirubin 0.6 mg/dL (0.2-1.3); Total Protein 6.7 g/dL (6.3-8.2)
--- NOTE | 2024-12-12 10:46 | P.PN ---
Progress Note - Text Progress Note Date: 12/12/24 Patient seen and examined. No acute events overnight. Pain is tolerated. Tolerating diet. VSS General-NAD CVS-RRR Lungs-NLB Abdomen-soft, incisional TTP, ND, incisions C/D/I Ext-no edema 44 year old male POD #2 Robotic Cholecystectomy -Low Fat Diet -Pain and Nausea Control -OOB, ambulate, IS -OK for discharge from surgery standpoint Collins Gomez DO [facility] [phone]
== END 2024-12-12 15:19 | disposition home or self-care (01) ==
LOC: EC 15:41 → 1SOBS 12-10 00:21 → 6NMEDSUR 12-10 16:16
PROVIDERS: ADMIT Hospitalist; ATTEND Hospitalist
DX: K81.2 Acute cholecystitis with chronic cholecystitis (principal); K82.1 Hydrops of gallbladder; K52.9 Noninfective gastroenteritis and colitis, unspecified; K21.9 Gastro-esophageal reflux disease without esophagitis; K66.0 Peritoneal adhesions (postprocedural) (postinfection); E87.3 Alkalosis; J44.9 Chronic obstructive pulmonary disease, unspecified; D50.9 Iron deficiency anemia, unspecified; R73.9 Hyperglycemia, unspecified; I10 Essential (primary) hypertension; K59.00 Constipation, unspecified; F17.200 Nicotine dependence, unspecified, uncomplicated; Z86.711 Personal history of pulmonary embolism; Z92.3 Personal history of irradiation; Z92.21 Personal history of antineoplastic chemotherapy; Z79.899 Other long term (current) drug therapy
CPT/HCPCS: 47562; S2900; 36415; 74177; 76705; 80048; 80053; 80076; 81001; 82150; 82728; 83540; 83550; 83605; 83690; 85025; 88304; 93005; 96361; 96372; 96374; 96375; 96376; 99285

== ENCOUNTER 2025-02-13 00:30 | Emergency (ER) | payer OTHER ==
[2025-02-13 00:37] VITALS: TEMP 98
[2025-02-13] MEDS: LACTATED RINGERS 1,000 ML IV SCH (01:01)
[2025-02-13] MEDS: droPERidol 2.5 MG/ML VIAL IVP ONE (01:04)
[2025-02-13] MEDS: diphenhydrAMINE 50 MG/ML 1 ML VIAL IVP STA (01:05)
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
[2025-02-13] MEDS: KETOROLAC 15 MG/ML 1 ML VIAL IVP STA (01:06)
[2025-02-13 01:10] LABS: Basophils # (A) 0.06 10*3/uL (0.00-0.10); Basophils % (A) 0.5 %; Eosinophils # (A) 0.13 10*3/uL (0.04-0.35); Eosinophils % (A) 1.1 %; HCT 39.1 % (39.6-50.0); HGB 12.8 g/dL (13.0-17.0); Lymphocytes # (A) 1.98 10*3/uL (0.90-5.00); Lymphocytes % (A) 16.5 %; MCH 21.6 pg (27.0-32.0); MCHC 32.7 g/dL (32.0-37.0); MCV 65.9 fL (80.0-97.0); Monocytes # (A) 0.79 10*3/uL (0.20-1.00); Monocytes % (A) 6.6 %; Neutrophils # (A) 9.03 10*3/uL (1.80-7.70); Neutrophils % (A) 75.0 %; Platelet Count 452 10*3/uL (140-440); RBC 5.93 10*6/uL (4.40-5.60); RDW 16.5 % (11.5-14.5); WBC 12.03 10*3/uL (4.50-10.00)
[2025-02-13 01:44] LABS: ALT 15 U/L (4-49); AST 28 U/L (17-59); African American GFR (CKD) 63 (>60 ml/min/1.73 sqM); Albumin 4.8 g/dL (3.5-5.0); Alkaline Phosphatase 231 U/L (38-126); Anion Gap 19 mmol/L; Blood Urea Nitrogen 24 mg/dL (9-20); Calcium 8.5 mg/dL (8.4-10.2); Carbon Dioxide 30 mmol/L (22-30); Chloride 86 mmol/L (98-107); Glucose 160 mg/dL (74-99); Lipase 58 U/L (23-300); Non-African American GFR(CKD) 54 (>60 ml/min/1.73 sqM); Potassium 3.6 mmol/L (3.5-5.1); Sodium 135 mmol/L (137-145); Total Protein 8.2 g/dL (6.3-8.2)
[2025-02-13 02:42] VITALS: RESP 16
[2025-02-13] MEDS: HYDROmorphone 0.5 MG/0.5 ML SYRINGE IVP STA (03:05)
[2025-02-13 03:09] VITALS: BP 136/94; PULSE 97
[2025-02-13 03:21] LABS: Bacteria,Urine Rare /hpf; Bilirubin,Urine Negative (Negative); Blood,Urine Negative (Negative); Color,Urine Light Yellow; Glucose,Urine (UA) Negative (Negative); Ketones,Urine 1+ (Negative); Leukocyte Esterase,Urine Small (Negative); Nitrite,Urine Positive (Negative); PH, Urine 8.0 (5.0-8.0); Protein,Urine 1+ (Negative); RBC,Urine 1 /hpf (0-5); Specific Gravity,Urine 1.015 (1.001-1.035); Squamous Epithelial Cell,Urine <1 /hpf (0-4); Urobilinogen,Urine <2.0 mg/dL (<2.0); WBC,Urine 5 /hpf (0-5)
[2025-02-13 03:43] LABS: Barbiturate Screen,Urine Not Detected (NotDetected); Benzodiazepines Screen,Urine Not Detected (NotDetected); Opiate Screen,Urine Detected (NotDetected); Oxycodone Screen, Urine Not Detected (NotDetected); Phencyclidine Screen,Urine Not Detected (NotDetected); Tricyclic Antidepressant,Urine Not Detected (NotDetected); Urn Cannabinoid Scrn Detected (NotDetected)
== END 2025-02-13 03:16 | disposition home or self-care (01) ==
LOC: EC 00:30
DX: E86.0 Dehydration (principal); R11.2 Nausea with vomiting, unspecified; Z91.148 Patient's other noncompliance with medication regimen for other reason; F17.200 Nicotine dependence, unspecified, uncomplicated
CPT/HCPCS: 36415; 93005; 80053; 83605; 83690; 85025; 81001; 80306; 80320; 99285; 96374; 96375; 96361; J1200; J1885; J1171; J1790